=== PATIENT | female | born 1985 | race Caucasian/White ===

== ENCOUNTER → 2017-08-28 15:26 | Outpatient (CLI) | payer MEDICAID, SELFPAY ==
[2017-09-04 08:19] LABS: HPV HC, High Risk Negative (Negative)
== END ==
PROVIDERS: Visit Provider Obstetrics & Gynecology
DX: Z12.4 Encounter for screening for malignant neoplasm of cervix (principal)
CPT/HCPCS: 87624; 88175; G0145

== ENCOUNTER → 2020-02-24 15:18 | Outpatient (CLI) | payer MEDICAID, SELFPAY ==
[2016-06-11 06:12] VITALS: BMI 24.3
[2020-02-24 16:41] LABS: Hematocrit 40.9 % (37-47); Mean Corp Hgb Conc 31.8 g/dL (32-36); Mean Corpuscular Hgb 29.1 pg (27.0-32.0); Mean Corpuscular Volume 91.5 fL (81-99); Mean Platelet Vol. 11.3 fl (6.2-12.0); Platelet Count 201 K/mm3 (150-450); RBC Distribution Width CV 12.7 % (11.6-14.6); RBC Distribution Width SD 42.7 fl (35.1-43.9); Red Blood Count 4.47 M/mm3 (4.2-5.4); White Blood Count 7.8 K/mm3 (4.4-11.0)
[2020-02-24 17:06] LABS: ALB/GLOB Ratio 0.9 RATIO (0.9-2.4); AST(SGOT) 27 U/L (15-37); Alanine Aminotransfer ALT/SGPT 34 U/L (13-56); Albumin, Serum 3.6 g/dL (3.2-5.0); Alkaline Phosphatase 56 U/L (45-117); Anion Gap 6 (5-15); BUN 16 mg/dL (7-18); BUN/Creat Ratio 15.5 RATIO (10-20); Calcium,Total 9.2 mg/dL (8.5-10.1); Chloride 107 mmol/L (98-107); Creatinine, Serum 1.03 mg/dL (0.55-1.02); EST Glomerular Filtration Rate 66 mL/min (>60); Est Glom Filt Rate - Afr Amer 79 mL/min (>60); Globulin 4.2 g/dL (2.2-4.2); Glucose 87 mg/dL (74-106); Potassium 4.4 mmol/L (3.5-5.1); Protein, Total 7.8 g/dL (6.4-8.2); Sodium Level 135 mmol/L (136-145)
[2020-02-27 18:39] LABS: Cancer Antigen 125 12.3 U/mL (0.0-38.1); Carbohydrate AG 19-9 8 U/mL (0-35); Carcinoembryonic Antigen 0.6 ng/mL (0.0-4.7)
== END ==
PROVIDERS: PCP Family Medicine; Visit Provider Obstetrics & Gynecology
DX: R10.9 Unspecified abdominal pain (principal); N89.8 Other specified noninflammatory disorders of vagina
CPT/HCPCS: 36415; 80053; 82378; 85027; 86301; 86304

== ENCOUNTER 2020-03-12 05:48 | Day surgery (SDC) | payer MEDICAID, SELFPAY ==
[2016-06-11 06:12] VITALS: BMI 24.3
[2020-03-12] VITALS (7 sets, daily range): BP systolic 102–117; BP diastolic 62–85; PULSE 60–79; RESP 16–18; TEMP 36–36.8; O2SAT 100; BMI 21.4
[2020-03-12 06:19] LABS: Internal QC Validated? YES +Cl - CLEAR BKGD; Pregnancy, Urine Negative Negative
--- NOTE | 2020-03-12 06:23 | HP.PCM_ITS ---
History and Physical Surgical History and Physical Name: YADIRA DANIEL Age: 34 Date of : 1985 Yadira Daniel, a 34 year old female 0 0 0 0 0, presents for diagnostic laparoscopy, possible left salpingectomy, possible left oophorectomy on 03/12/2020 at 7 :30 and am. -- Yadira has LLQ pain. 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 Very painful with nausea also present. Pain has continued to increase, she is missing days from work. 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 Slynd 4 mg (28) tablet, One pill by mouth once a day Patient is also takin. albuterol sulfate 90 mcg/actuation HFA aerosol inhaler, 2 puffs prn 2. Neurontin 800 mg tablet, 1 PO TID 3. promethazine 25 mg tablet, every 6 hours as needed 4. trazodone 50 mg tablet, daily 5. Zanaflex 2 mg capsule, bid 6. Zofran 4 mg tablet, every 4 hours as needed 7. hydrochlorothiazide 12.5 mg tablet, 1 PO QD ALLERGIES: Codeine, Hives, vomiting, Ultram, Hives, vomiting, Adhesive Tape, Skin irritation, Flagyl, Seizures, NSAIDS, Kidney disease, Codeine and Hives an d/or rash Infections - Chicken pox, HPV, [place], Pneumonia and UTI's Illnesses - asthma, seizures, stage 2 kidney disease, adenomyosis, hypertension Accidents - no injuries of consequence Hospitalizations - see surgery Kidney Stones; Review of Systems: GENERAL - LLQ pain SKIN - Denies skin changes EYES - Denies visual changes EARS - Denies difficulty hearing NOSE - Denies nasal congestion or bleeding MOUTH - Denies sore throat or difficulty swallowing NECK - Denies pain or swelling RESPIRATORY - Denies shortness of breath or wheezing CARDIOVASCULAR - Denies palpitations or chest pain GASTROINTESTINAL - constipation, hx kidney stones, Stage 2 kidney disease GENITOURINARY - Denies dysuria, frequency of urination, incontinence of urine MUSCULOSKELETAL - Denies joint or muscle pain NEUROLOGICAL - Denies localized numbness or weakness PSYCHIATRIC - Denies depression or anxiety ENDOCRINE - Denies heat or cold intolerance, weight loss or gain HEMATO-IMMUNOLOGIC - Denies excessive bleeding with cuts SOCIAL HISTORY: Alcohol Use - denies drinking Smoking - denies smoking Diet - no particular diet Exercise - minimal Seat Belt Use - always Employer - [employer] 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 MENSTRUAL HISTORY: LMP Known?- Continuous ocp'sAmount/Duration - 3-4 days, Regularity - missed periods, LMP - 09/16/12, Age Onset Menarche - 13 PAST PREGNANCIES: Total Pregnancies - 0; Full Term Pregnancies - 0; Premature - 0; Abortions, Induced - 0; Abortions, Spontaneous - 0; Ectopics - 0; Multiple Births - 0; Living Children - 0 SURGICAL HISTORY: 1. 03/30/2013 Lap RSO ; Dr Len Gauthier - 2. R back Ablation, 2019 ; - 3. Tonsillectomy ; - 4. Cryotherapy to Cervix x 2 ; - 5. Kidney Stones removed x 2, stent placed after last surgery in 2011 ; - 6. Laparoscopy 6-2012 ; - 7. 05/24/2014 Bilateral labia minora reduction ; Dr Len Gauthier - 8. 06/11/2016 Dx laparoscopy, lysis of bowel adhesions ; Dr Len Gauthier - 9. 09/16/2014 R kidney stent ; - PHYSICAL EXAM BP- 130/70 Sitting, Right arm, regular cuff Weight- 126.99565 lbs Height- 64.25 inch BMI:21.50 CONSTITUTIONAL - NAD, well nourished, and well developed SKIN - No rash, lesions, or ulcers HEENT - Normocephalic, PERRLA, EOMI NECK - No nodes, no nuchal rigidity and thyroid normal size and texture LYMPH NODES - Palpation of lymph nodes in neck and groins within normal limits LUNGS - CTA x2 without wheezes, crackles or rales CARDIAC - Regular rate and rhythm without rubs, murmurs, or gallops ABDOMEN - Without hepatosplenomegaly, distention, masses, rebound, or guarding; normal bowel sounds; no hernias. LLQ pain, no rebound or guarding. EXTREMITIES - No edema or calf tenderness NEUROLOGICAL - Cranial nerves II-XII grossly intact PSYCHIATRIC - A and O to time, place, person, mood and affect External Genital Vagina - narrow introitus Urethra/Urethral Meatus - non-tender Bladder - non-tender Vagina - vaginal montes de oca are pink and moist without loss of rugae and no evidence of atrophy and clear vaginal discharge noted Cervix - without cervical motion tenderness and has normal size and features without evident lesions Uterus - 5-6 cm in size, mobile and nontender Adnexa - Right ovary surgically absent. Left ovary no masses noted ASSESSMENT/PLAN: 1. Left Lower Quadrant Pain Pt see in ER for LLQ pain that started slowly weeks ago and became worse. Found to have CT that showed hydrosalpingx but left ovary could not be seen with bowel Pt with hx of of multiple abdominal surgeries s/p RSO. Pt likely with multiple adhesions. Pt with some constipation but overall regular bowel movements, stool softeners did not improve pain. Hx of kindey stones, no signs on CT. U/s today with similar results, right pelvic side wall density not specified. Clear discharge on exam. Will get tumor markers Discussed results r/b/a discussed. Pt elects for dx laparoscopy, does desire children but with possible salpingectomy possible oophorectomy
[2020-03-12] MEDS: Lactated Ringers 1,000 ML 100 ML IV ×2 (07:11→08:54)
--- NOTE | 2020-03-12 08:27 | PCM.DC.D&C ---
Discharge Diet: No Restrictions Discharge Activity: Return to Normal Activity, May not drive while taking narcotic pain medications., May Shower May resume sexual activity in: 2 weeks Weight Bearing Status: Weight bearing as tolerated Call your doctor if your incision/area has: Foul Smelling Discharge Call your doctor if you observe: Fever of 101 or Higher, Shortness of breath, Chest pain Allergies/Adverse Reactions: Allergies codeine Allergy (Verified 02/28/20 14:58) Hives metronidazole [From Flagyl] Allergy (Verified 02/28/20 14:58) Shortness of breath SEIZURES shellfish derived Allergy (Verified 02/28/20 14:58) Angioedema adhesive Adverse Reaction (Verified 02/28/20 14:58) Rash aspirin [ASA] Adverse Reaction (Verified 02/28/20 15:08) PT UNSURE OF REACTION STAGE II KIDNEY FAILURE NSAIDS (Non-Steroidal Anti-Inflamma Adverse Reaction (Verified 02/28/20 15:08) PT UNSURE OF REACTION STAGE II KIDNEY FAILURE Medications to take at Discharge Albuterol Inhaler [Ventolin Hfa] 1 - 2 puff INHALATION Q6H PRN PRN 03/22/13 Ondansetron HCl [Zofran] 4 mg PO Q6H PRN 06/05/16 Tizanidine HCl [Zanaflex] 4 mg PO DAILY 06/05/16 Acetaminophen/Diphenhydramine [Tylenol Pm Ex-Strength Caplet] 1 ea PO QHS 02/28/20 Albuterol Aerosols [Ventolin Aerosols] 2.5 mg INHALATION Q6HWA.RT PRN 02/28/20 Dicyclomine HCl 20 mg PO Q6H PRN PRN 02/28/20 Docusate Sodium [Colace] 100 mg PO BID 02/28/20 Drospirenone [Slynd] 4 mg PO DAILY 02/28/20 Gabapentin [Neurontin] 800 mg PO TIDCM PRN 02/28/20 Hydrochlorothiazide [Hctz] 12.5 mg PO DAILY 02/28/20 Hydrocodone/Acetaminophen [Hydrocodon-Acetaminophen 5-325] 1 ea PO PRN PRN 02/28/20 Ketorolac [Toradol] 10 mg PO Q6H PRN 02/28/20 Lansoprazole [Prevacid] 30 mg PO DAILY 02/28/20 Trazodone ER [Oleptro Er] 150 mg PO 1800 02/28/20 proMETHazine tablet [Phenergan tablet] 25 mg PO QHS PRN 02/28/20 Oxycodone [Oxyir] 5 mg PO Q6H PRN PRN 3 Days #12 tablet 03/12/20 The following prescriptions were given: Oxycodone [Oxyir] 5 mg PO Q6H PRN PRN 3 Days #12 tablet PRN Reason: Pain Score 6-10 Transmission Status: Sent to [facility] Orders to be completed after discharge: ,Urine Time Frame: 03/01/20, Facility: [facility], Location: Laboratory Primary Care Physician: BALBIR SANDERSON [Other] Test Results: Test results from this visit will be discussed in further detail at your follow-up appointment, if applicable. Please Follow Up With: Jose Daniel Myers MD - s When: 2 weeks
--- NOTE | 2020-03-12 08:28 | OP.PCM_ITS ---
Report of Operation Date of Procedure: 03/12/20 Pre-Operative Diagnosis: Pelvic pain Post-Operative Diagnosis: Pelvic pain Surgery/Procedure Performed:: Diagnostic laparoscopy, lysis of adhesions Description of Surgical Findings:: Surgeon: Jose Daniel Myers MD Anesthesia: General EBL: 5 cc Urine output: 200 cc IV fluids: 1000 cc Complications: None Specimen: None Findings: Normal left fallopian tube, normal left ovary, normal uterus. No pathology in posterior cul-de-sac. No sign of endometriosis or other pathology. Left pelvic wall adhesions involving sidewall and rectum. Bowel and rectum with no pathology noted before and after procedure. Visualization via laparoscopy of upper and lower abdomen with no pathology noted. Consent: Patient with left lower quadrant pain, missing work, arrived to ER. in need of diagnostic laparoscopy, possible left salpingectomy possible left oophorectomy. Patient understands the risk of the procedure include but are not limited to visceral or vascular injury, prolonged hospitalization, blood loss need for transfusion, reoperation. Patient state understanding wish to proceed. All questions answered consent was signed. Procedure: Patient was brought back to the OR where general anesthesia found to be adequate. Patient prepared and draped in dorsolithotomy position with yellowfin stirrups. A weighted speculum was placed in the posterior aspect of the vagina. Cervical dilators used to dilate cervix. Uterine manipulator was placed. Infraumbilical fold with 5 mm trocar incision made. Trocar inserted via Optiview. Abdomen was insufflated. Laparoscope was inserted and above findings were noted. Left pelvic sidewall adhesions were performed greater than 15 minutes. Further visualization of the upper and lower abdomen with above findings. Trochars were removed under direct visualization. Trocar sites were closed in a subcutaneous fashion. Good hemostasis was noted. All counts correct x2. Patient tolerated procedure well was brought to recovery in stable condition. preparation room worker: Ashely Lagos
[2020-03-12] MEDS: oxyCODONE 5 MG Tablet PO (09:56)
== END 2020-03-12 11:47 | disposition home or self-care (01) ==
LOC: SDC 05:49 → AC 05:49
PROVIDERS: Anesthesiology; Referring Provider Obstetrics & Gynecology; Visit Provider Obstetrics & Gynecology
PROC: (CPT 58661; principal; 2020-03-12 07:15)
DX: R10.2 Pelvic and perineal pain (principal); N73.6 Female pelvic peritoneal adhesions (postinfective); R10.32 Left lower quadrant pain; I10 Essential (primary) hypertension; J45.909 Unspecified asthma, uncomplicated; Z79.899 Other long term (current) drug therapy; Z88.1 Allergy status to other antibiotic agents; Z88.5 Allergy status to narcotic agent; Z88.6 Allergy status to analgesic agent; Z90.721 Acquired absence of ovaries, unilateral
CPT/HCPCS: 49320; 49329; 81025; 87426; C9803; J7120; J2405

== ENCOUNTER → 2020-09-07 16:32 | Outpatient (CLI) | payer MEDICAID, SELFPAY ==
[2020-03-12 06:15] VITALS: BMI 21.4
[2020-09-07 16:37] LABS: Red Blood Cells-Urine 0 SEEN /hpf (0-5)
[2020-09-07 17:00] LABS: Absolute Lymphocyte Count 2.84 X10^3/uL (0.83-4.51); Absolute Neutrophil Count 6.5 X10^3/uL (2.0-7.7); Basophil# 0.05 X10^3/uL; Basophil% 0.5 % (0-1); Eosinophil# 0.08 X10^3/uL; Eosinophils% 0.8 % (0-5); Hematocrit 37.8 % (37-47); Hemoglobin 12.1 g/dL (12.0-15.0); Lymphocyte # 2.84 X10^3/ul (0.83-4.51); Lymphocyte % 27.5 % (19-41); Mean Corpuscular Hgb 29.7 pg (27.0-32.0); Mean Corpuscular Volume 92.9 fL (81-99); Mean Platelet Vol. 10.1 fl (6.2-12.0); Monocyte% 7.7 % (0-10); NRBC Flagged by Analyzer 0 % (0-5); Neutrophil # 6.52 X10^3/uL (2.7-7.7); Neutrophil % 63.1 % (47-70); Platelet Count 238 K/mm3 (150-450); RBC Distribution Width CV 13.2 % (11.6-14.6); RBC Distribution Width SD 45.1 fl (35.1-43.9); Red Blood Count 4.07 M/mm3 (4.2-5.4); White Blood Count 10.3 K/mm3 (4.4-11.0)
[2020-09-07 17:01] LABS: Color, Urine Yellow (Yellow); Glucose, Dipstick Normal (Normal); Ketone-Dipstick Negative (Negative); Leukocyte Esterase-Dipstick Negative /ul (Negative); Nitrite-Dipstick Negative (Negative); Occult Blood-Urine Negative /ul (Negative); Protein-Dipstick 15 mg/dl (Negative); Specific Gravity, Urine 1.025 (1.002-1.030); Urine Bilirubin Dipstick Negative (Negative); Urine Clarity Clear (Clear); Urine Urobilinogen Normal (Normal)
[2020-09-07 17:10] LABS: Protein, Urine (Random) 17.4 mg/dL (<11.9); Protein:Creat Ratio 84 mg/g CRE (0-200)
[2020-09-07 17:12] LABS: Bacteria 1+ /hpf (None Seen); Mucous, Urine 2+ /hpf (<or=2+); Squamous Epithelial Cells - UA 0-5 SEEN /hpf (5-10); White Blood Cells 0-5 SEEN /hpf (0-5)
[2020-09-07 17:23] LABS: AST(SGOT) 16 U/L (15-37); Alanine Aminotransfer ALT/SGPT 29 U/L (13-56); Albumin, Serum 3.9 g/dL (3.2-5.0); Alkaline Phosphatase 52 U/L (45-117); Anion Gap 7 (5-15); BUN 14 mg/dL (7-18); BUN/Creat Ratio 17.2 RATIO (10-20); Calcium,Total 9.1 mg/dL (8.5-10.1); Chloride 104 mmol/L (98-107); Creatinine, Serum 0.81 mg/dL (0.55-1.02); EST Glomerular Filtration Rate 86 mL/min (>60); Est Glom Filt Rate - Afr Amer 104 mL/min (>60); Globulin 3.9 g/dL (2.2-4.2); Glucose 86 mg/dL (74-106); LDH 144 U/L (84-246); Potassium 4.1 mmol/L (3.5-5.1); Protein, Total 7.8 g/dL (6.4-8.2); Sodium Level 137 mmol/L (136-145)
[2020-09-10 10:20] LABS: HIV - WCH Non-Reactive (Nonreactive); Hepatitis B Surface Antigen Non-Reactive (Nonreactive); Hepatitis C Antibody Non-Reactive (Nonreactive); Rubella IgG Reactive (Nonreactive); Syphilis Antibodies Non-reactive
[2020-09-10 20:07] LABS: Chlamydia By Nucleic Acid AMP Negative (Negative)
[2020-09-10 21:50] LABS: Gonococcus By Nucleic Acid AMP Negative (Negative)
[2020-09-11 21:26] LABS: HPV APTIMA, High Risk Negative (Negative)
== END ==
PROVIDERS: Visit Provider Obstetrics & Gynecology
DX: Z12.4 Encounter for screening for malignant neoplasm of cervix (principal); Z11.3 Encounter for screening for infections with a predominantly sexual mode of transmission; Z34.81 Encounter for supervision of other normal pregnancy, first trimester
CPT/HCPCS: 36415; 80053; 81001; 82570; 83615; 84156; 85025; 86703; 86762; 86780; 86803; 87086; 87088; 87340; 87491; 87591; 87624; 88175; G0145

== ENCOUNTER 2020-10-23 19:53 | Emergency (ER) | payer BC, SELFPAY ==
[2020-10-23 19:54] VITALS: BP 132/87; PULSE 87; RESP 16; TEMP 36.6; O2SAT 100; BMI 21.3
[2020-10-23 20:22] LABS: Bacteria 0 SEEN /hpf (None Seen); Mucous, Urine 0 SEEN /hpf (<or=2+); Red Blood Cells-Urine 0 SEEN /hpf (0-5); White Blood Cells 0 SEEN /hpf (0-5)
[2020-10-23 20:38] LABS: Color, Urine Yellow (Yellow); Glucose, Dipstick Normal (Normal); Ketone-Dipstick Negative (Negative); Leukocyte Esterase-Dipstick Negative /ul (Negative); Nitrite-Dipstick Negative (Negative); Occult Blood-Urine Negative /ul (Negative); Protein-Dipstick Negative (Negative); Specific Gravity, Urine 1.005 (1.002-1.030); Urine Bilirubin Dipstick Negative (Negative); Urine Clarity Clear (Clear); Urine Urobilinogen Normal (Normal)
[2020-10-23 20:59] VITALS: BP 132/87; PULSE 87; RESP 16; TEMP 36.6; O2SAT 100
--- NOTE | 2020-10-23 21:17 | US_ITS ---
STUDY: RENAL ULTRASOUND - COMPLETE REASON FOR EXAM: Female, 34 years old. right flank pain TECHNIQUE: Ultrasound evaluation of the kidneys was performed with real-time and static bernard-scale imaging. COMPARISON: None. FINDINGS: RIGHT KIDNEY: Normal location of the right kidney, which is normal in size. The right kidney measures 10.7 cm. There is a normal cortex of the right kidney. The renal cortex measures 1.6 cm. There is no right renal mass or cyst. Several hyperechoic calculi. The largest which measures 6 mm. Mild central pelviectasis. DISTAL RIGHT URETER: There is non-visualization of the distal right ureter. There is no demonstrated right ureterovesical junction calculus. There is no demonstrated right ureteral jet. LEFT KIDNEY: Normal location of the left kidney, which is normal in size. The left kidney measures 11.2 cm. There is a normal cortex of the left kidney. The renal cortex measures 2.0 cm. There is no left renal mass or cyst. There are no left renal calculi. There is no left hydronephrosis. DISTAL LEFT URETER: There is non-visualization of the distal left ureter. There is no demonstrated left ureterovesical junction calculus. There is no demonstrated left ureteral jet. BLADDER: The distended urinary bladder has a volume of 29 ml. The empty urinary bladder has a volume of ml. There is a normal wall thickness of the distended urinary bladder. There is no demonstrated mass within the urinary bladder. There are no demonstrated bladder calculi. US/Kidney and Bladder IMPRESSION: Mild right pelviectasis. Several right-sided renal calculi. Unremarkable left kidney and urinary bladder. Electronically Signed: Tremayne Mariee DO at 22:29 EDT Tel , Service support ,
[2020-10-23 21:34] LABS: Squamous Epithelial Cells - UA 0-5 SEEN /hpf (5-10)
[2020-10-23 21:48] LABS: Absolute Lymphocyte Count 2.94 X10^3/uL (0.83-4.51); Basophil# 0.03 X10^3/uL; Basophil% 0.3 % (0-1); Eosinophil# 0.12 X10^3/uL; Eosinophils% 1.2 % (0-5); Hemoglobin 11.4 g/dL (12.0-15.0); Lymphocyte # 2.94 X10^3/ul (0.83-4.51); Lymphocyte % 30.1 % (19-41); Mean Corp Hgb Conc 32.6 g/dL (32-36); Mean Corpuscular Hgb 29.9 pg (27.0-32.0); Mean Corpuscular Volume 91.9 fL (81-99); Monocyte# 0.63 X10^3/uL; Monocyte% 6.4 % (0-10); NRBC Flagged by Analyzer 0 % (0-5); Neutrophil # 6.02 X10^3/uL (2.7-7.7); Neutrophil % 61.7 % (47-70); Platelet Count 204 K/mm3 (150-450); RBC Distribution Width CV 13.1 % (11.6-14.6); RBC Distribution Width SD 44.4 fl (35.1-43.9); Red Blood Count 3.81 M/mm3 (4.2-5.4); White Blood Count 9.8 K/mm3 (4.4-11.0)
[2020-10-23 22:01] LABS: Anion Gap 5 (5-15); BUN 12 mg/dL (7-18); BUN/Creat Ratio 18.2 RATIO (10-20); Calcium,Total 8.8 mg/dL (8.5-10.1); Chloride 108 mmol/L (98-107); Creatinine, Serum 0.66 mg/dL (0.55-1.02); EST Glomerular Filtration Rate 109 mL/min (>60); Est Glom Filt Rate - Afr Amer 132 mL/min (>60); Estimated Creatinine Clearance 104.69 ml/min; Glucose 81 mg/dL (74-106); Potassium 3.4 mmol/L (3.5-5.1); Sodium Level 137 mmol/L (136-145)
--- NOTE | 2020-10-23 22:48 | EDS_ITS ---
HPI HPI - GI History of Present Illness Chief Complaint: Flank Pain Informant: patient Abdominal Pain/Flank Pain Onset: Today Narrative Narrative: Patient is a 34-year-old female currently 13 weeks presenting with sudden onset of right sided flank pain. Patient says she has a history of kidney stones. Her symptom started 3 PM today. It is in her right flank and radiates to her rib cage. She denies any cyst abdominal pain, nausea or vomiting. She denies any urinary symptoms. She notes that she does have a history of CKD to associate with her kidney stones. This is her first . 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 Myers. Patient took Tylenol prior to arrival. [facility] Medical History Asthma Hypertension Kidney disease Home Medications albuterol sulfate [Ventolin HFA] 1 - 2 puff INHALATION Q6H PRN PRN 03/22/13 [History Last Taken 05/24/14 08:49] ondansetron HCl [Zofran] 4 mg PO Q6H PRN 06/05/16 [History Last Taken 06/11/16 01:00] tizanidine [Zanaflex] 4 mg PO DAILY 06/05/16 [History Last Taken Unknown] albuterol sulfate 2.5 mg INHALATION Q6HWA.RT PRN 02/28/20 [History Last Taken Unknown] dicyclomine 20 mg PO Q6H PRN PRN 02/28/20 [History Last Taken Unknown] diphenhydramine-acetaminophen 1 ea PO QHS 02/28/20 [History Last Taken Unknown] docusate sodium 100 mg PO BID 02/28/20 [History Last Taken Unknown] drospirenone (contraceptive) 4 mg PO DAILY 02/28/20 [History Last Taken Unknown] gabapentin 800 mg PO TIDCM PRN 02/28/20 [History Last Taken 03/12/20] hydrochlorothiazide 12.5 mg PO DAILY 02/28/20 [History Last Taken Unknown] hydrocodone-acetaminophen 1 ea PO PRN PRN 02/28/20 [History Last Taken Unknown] ketorolac 10 mg PO Q6H PRN 02/28/20 [History Last Taken Unknown] lansoprazole 30 mg PO DAILY 02/28/20 [History Last Taken 03/12/20] promethazine 25 mg PO QHS PRN 02/28/20 [History Last Taken Unknown] trazodone 150 mg PO 1800 02/28/20 [History Last Taken Unknown] hydrocodone-acetaminophen 1 tab PO Q6H PRN 3 Days #12 tab 10/23/20 [Rx Last Taken Unknown] Allergy/AdvReac Type Severity Reaction Status Date / Time codeine Allergy Hives Verified 10/23/20 19:53 metronidazole [From Flagyl] Allergy Shortness Verified 10/23/20 19:53 of breath shellfish derived Allergy Angioedema Verified 10/23/20 19:53 adhesive AdvReac Rash Verified 10/23/20 19:53 NSAIDS (Non-Steroidal AdvReac PT UNSURE Verified 10/23/20 19:53 Anti-Inflamma OF REACTION Social History Smoking Status: Never smoker ROS ROS ED Constitutional Constitutional ED: Denies chills, fever(s) or malaise Eyes Eyes: Denies blurry vision or loss of vision ENT ENT ED: Denies rhinorrhea or sore throat Cardiovascular Cardiovascular: Denies chest pain or dizziness Respiratory/Chest Respiratory/Chest: Denies cough or dyspnea Gastrointestinal Gastrointestinal: Reports other Details: Right flank pain ; Denies nausea or vomiting Genitourinary Genitourinary ED: Denies dysuria or hematuria Musculoskeletal Musculoskeletal: Reports back pain; Denies arthralgias or myalgias Integumentary Denies rash or wounds Neurologic Neurologic: Denies focal weakness or headache(s) Psychiatric Psychiatric: Denies anxiety or behavioral changes EXAM Physical Exam Const Vital Signs: 10/23/20 19:54 10/23/20 20:59 Temperature 97.8 F 97.8 F Temperature Source Temporal Temporal Pulse Rate 87 87 Respiratory Rate 16 16 Blood Pressure 132/87 H 132/87 H Blood Pressure Mean 102 102 Pulse Ox 100 100 Oxygen Delivery Method Room Air Room Air Positive well nourished, well developed and no apparent distress General Appearance ED: well developed HEENT Reports normocephalic normocephalic and atraumatic Nose: no nasal discharge External Ear: external ears normal Mouth ED: Yes moist mucous membranes normal Eyes PERRL and EOMs intact bilaterally Neck full ROM and no meningeal signs Chest Wall inspection of chest normal Resp normal respiratory effort and normal air movement Cardio regular rate, regular rhythm and no murmurs GI normal to inspection, nondistended, normoactive bowel sounds, non-tender and non-distended GI Narrative: No palpable uterus Auscultation: normoactive bowel sounds Palpation: soft Back/Spine no CVA tenderness Extremity normal to inspection and full ROM Neuro oriented x3 and no focal motor deficits Psych mental status grossly normal and thought process normal Skin no rashes or lesions noted and no wounds MDM MDM MDM Narrative Medical decision making narrative: Evaluated for sudden onset of right flank pain. Is consistent with her prior episodes of kidney stones. Presentation is complicated as she is 13 weeks and we would like to avoid radiation of possible. Patient declines any pain medication in the emergency room. Vital signs are significant only for very mild elevated blood pressure of 132/87. Urinalysis is essentially normal and kidney function is normal. She is a mild anemia with a hemoglobin of 11.4 but no other abnormalities. Ultrasound of the kidneys shows mild right pelvic pelviectasis which could be related to hydronephrosis but is not clear as the right ureter is not visualized. Given her history and sudden onset of symptoms she will be treated that she does have a kidney stone with pain control. She is given referral to urology for outpatient follow-up. Patient is comfortable with this plan of care. She is counseled on return precautions. She discharged home in stable condition. Lab Data Attestation: I reviewed the patient's lab results. Labs: Laboratory Results - last 24 hr 10/23/20 10/23/20 10/23/20 20:15 21:15 21:15 WBC 9.8 RBC 3.81 L Hgb 11.4 L Hct 35.0 L MCV 91.9 MCH 29.9 MCHC 32.6 RDW Std Deviation 44.4 H RDW Coeff of [place] 13.1 Plt Count 204 MPV 10.0 Immature Gran % (Auto) 0.300 Neut % (Auto) 61.7 Lymph % (Auto) 30.1 [place] % (Auto) 6.4 Eos % (Auto) 1.2 Baso % (Auto) 0.3 Absolute Neuts (auto) 6.0 Absolute Lymphs (auto) 2.94 Nucleated RBC % 0 Sodium 137 Potassium 3.4 L Chloride 108 H Carbon Dioxide 24.0 Anion Gap 5 BUN 12 Creatinine 0.66 Estim Creat Clear Calc 104.69 Est GFR (MDRD) Af Amer 132 Est GFR (MDRD) Non-Af 109 BUN/Creatinine Ratio 18.2 Glucose 81 Calcium 8.8 Urine Color Yellow Urine Clarity Clear Urine pH 7.0 Ur Specific Amber 1.005 Urine Protein Negative Urine Glucose (UA) Normal Urine Ketones Negative Urine Occult Blood Negative Urine Nitrite Negative Urine Bilirubin Negative Urine Urobilinogen Normal Ur Leukocyte Esterase Negative Urine RBC 0 SEEN Urine WBC 0 SEEN Ur Squamous Epith Cells 0-5 SEEN Urine Bacteria 0 SEEN Urine Mucus 0 SEEN Radiography Diagnostic Testing: Radiology Impression Renal Ultrasound 10/23/20 21:17 IMPRESSION: Mild right pelviectasis. Several right-sided renal calculi. Unremarkable left kidney and urinary bladder. Electronically Signed: Tremayne Mariee DO at 22:29 EDT Tel , Service support , Discharge Plan Triage Chief Complaint: Flank Pain ED Provider: Carole De Los Santos Dx/Rx/DC Orders Clinical Impression: Acute right flank pain, Renal colic on right side Instructions: ED Kidney Stone w/ Colic Prescriptions: New hydrocodone-acetaminophen 5-325 mg tablet 1 tab PO Q6H PRN (Reason: pain) 3 Days Qty: 12 RF: 0 No Action albuterol sulfate [Ventolin HFA] 1 INHALER inhaler 1 - 2 puff inhalation Q6H PRN PRN (Reason: Asthma) RF: 0 ondansetron HCl [Zofran] 4 MG tablet 4 mg PO Q6H PRN (Reason: Nausea) RF: 0 tizanidine [Zanaflex] 2 MG capsule 4 mg PO DAILY RF: 0 albuterol sulfate 2.5 MG/3 ML solution for nebulization 2.5 mg INHALATION Q6HWA.RT PRN (Reason: Asthma) RF: 0 hydrocodone-acetaminophen 1 EACH tablet 1 ea PO PRN PRN (Reason: Pain 1-10 Or Fever) RF: 0 ketorolac 10 MG tablet 10 mg PO Q6H PRN (Reason: Pain 1-10 Or Fever) RF: 0 gabapentin 800 MG tablet 800 mg PO TIDCM PRN (Reason: Pain 1-10 Or Fever) RF: 0 dicyclomine 20 MG tablet 20 mg PO Q6H PRN PRN (Reason: ABD SPASMS) RF: 0 trazodone 150 MG tablet 150 mg PO 1800 RF: 0 lansoprazole 30 MG capsule 30 mg PO DAILY RF: 0 promethazine 25 MG tablet 25 mg PO QHS PRN (Reason: Nausea) RF: 0 docusate sodium 100 MG capsule 100 mg PO BID RF: 0 diphenhydramine-acetaminophen 1 EACH tablet 1 ea PO QHS RF: 0 drospirenone (contraceptive) 4 MG tablet 4 mg PO DAILY RF: 0 hydrochlorothiazide 25 MG tablet 12.5 mg PO DAILY RF: 0 Referrals: BALBIR SANDERSON [Other] Swathi Potter MD [STAFF PHYSICIAN] - Disposition Disposition: Home, Self Care
[2020-10-23 23:14] VITALS: BP 130/78; PULSE 78; RESP 16; O2SAT 98
== END 2020-10-23 23:14 | disposition home or self-care (01) ==
PROVIDERS: Emergency Provider Emergency Medicine
DX: O10.911 Unspecified pre-existing hypertension complicating pregnancy, first trimester (principal); O26.831 Pregnancy related renal disease, first trimester; N28.89 Other specified disorders of kidney and ureter; O99.511 Diseases of the respiratory system complicating pregnancy, first trimester; J45.909 Unspecified asthma, uncomplicated; Z79.1 Long term (current) use of non-steroidal anti-inflammatories (NSAID); Z87.442 Personal history of urinary calculi; Z3A.13 13 weeks gestation of pregnancy; I12.9 Hypertensive chronic kidney disease with stage 1 through stage 4 chronic kidney disease, or unspecified chronic kidney disease; N18.9 Chronic kidney disease, unspecified; N20.0 Calculus of kidney
CPT/HCPCS: 76770; 80048; 81001; 85025; 99282

== ENCOUNTER 2020-12-31 22:05 | Outpatient (CLI) | payer BC, SELFPAY ==
[2020-12-31 22:21] VITALS: PULSE 84; O2SAT 100
[2020-12-31 22:27] VITALS: BP 117/66; PULSE 78; PULSE 84; TEMP 36.4; O2SAT 100
[2020-12-31 22:34] VITALS: BMI 23.3
[2020-12-31 22:51] LABS: ROM Internal Control Test YES-OK TO RESULT pt. (Internal QC)
[2020-12-31 22:52] LABS: ROM Patient Test POSITIVE (Negative)
[2020-12-31 22:55] LABS: Bacteria 0 SEEN /hpf (None Seen); Mucous, Urine 0 SEEN /hpf (<or=2+); Red Blood Cells-Urine 0 SEEN /hpf (0-5); Squamous Epithelial Cells - UA 0 SEEN /hpf (5-10); White Blood Cells 0 SEEN /hpf (0-5)
[2020-12-31 23:04] LABS: Color, Urine Straw (Yellow); Glucose, Dipstick Normal (Normal); Ketone-Dipstick Negative (Negative); Leukocyte Esterase-Dipstick Negative /ul (Negative); Nitrite-Dipstick Negative (Negative); Occult Blood-Urine Negative /ul (Negative); Protein-Dipstick Negative (Negative); Urine Bilirubin Dipstick Negative (Negative); Urine Clarity Clear (Clear); Urine Urobilinogen Normal (Normal)
--- NOTE | 2020-12-31 23:45 | PCM.HP.BLA ---
History and Physical Date of Admission: 12/31/20 HPI: 35-year-old G1, P0 at 23/4 days, JONATHON 04/26/2021 by LMP, with periviable prelabor rupture of membranes. Patient gush of fluid around 2130 last night, clear fluid. Denies vaginal bleeding. Reports some irregular cramping over the past week with movement. Reports normal movement. Denies headache, vision changes, chest pain, shortness of breath, nausea or vomiting, diarrhea or constipation, fevers or chills, rash. complicated by: Stage II renal failure, chronic hypertension not on medications, seizure disorder (not currently on medications, last seizure 2 weeks ago at work), asthma. 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 Bilateral labia minora reduction 2. Cervical cryotherapy x2 3. Diagnostic laparoscopy lysis of adhesions in 2020 4. Diagnostic laparoscopy, lysis of adhesions of bowel 2016 5. Removal of kidney stones x2 with stent placement 6. Laparoscopic right salpingo-oophorectomy 2013 7. Laparoscopy 2012 8. Tonsillectomy Medications: 1. Trazodone 2. vitamin 3. ProAir inhaler 4. Aspirin 81 mg Allergies: 1. Codeine causes hives 2. Flagyl causes dyspnea 3. Topamax causes headache 4. Adhesives cause rash 5. Avoid NSAIDs for kidney disease 6. Angioedema with shellfish Family history: Noncontributory Review of systems: Negative otherwise noted above Physical exam: Vitals Blood pressure 117/66 Pulse 84 Temp 97.6 O2 sat 100% on room air General: No acute distress, teary, comfortable HEENT: Normocephalic/atraumatic Cardiorespiratory: No increased effort Abdomen: Gravid. Soft, nontender Extremities: No edema Neurologic: Cranial nerves II through XII grossly intact Cervical exam: Deferred at this time patient has rare contractions Bedside ultrasound: Transverse spine up heart rate: 145/mod maliha/+accel/+intermittent variable decelerations [place]: Rare Panel: A+ HIV/hepatitis B/hepatitis C: neg/neg/neg Syphilis antibody: Nonreactive Gonorrhea/Chlamydia: Negative/negative GBS pending weight on 12/11/2020 at anatomy ultrasound was 330 g Labs: ROM positive CBC, CMP pending Assessment/plan: 35-year-old G1 at 23/4 weeks previable rupture of membranes at 23/3 weeks. -ROM positive, bedside ultrasound showed minimal fluid -We will give Celestone at this time. Start latency antibiotics. Ampicillin and azithromycin. -Start 4 g magnesium bolus. Last creatinine in October 2020 was 0.66 and creatinine clearance 104. Will wait on CMP to give maintenance dosing, consider holding with history of stage II renal disease. -Plan to transport to [facility] triage. Discussed with Dr. Carlotta Chau. -Education provided to patient and her at bedside about outcomes of delivery at this time, tentative plans for inpatient stay, medications to be given. Stage II renal disease: CMP pending Chronic hypertension on no medications. Blood pressure stable. Seizure disorder. Not currently on medications last seizure 2 weeks ago.
[2020-12-31] MEDS: Lactated Ringers 1,000 ML 999 ML IV (23:50)
[2021-01-01] VITALS (16 sets, daily range): BP systolic 100–133; BP diastolic 59–64; PULSE 83–163; RESP 14–16; TEMP 36.3; O2SAT 79–100
[2021-01-01 00:22] LABS: Absolute Lymphocyte Count 2.81 X10^3/uL (0.83-4.51); Absolute Neutrophil Count 8.1 X10^3/uL (2.0-7.7); Basophil# 0.06 X10^3/uL; Basophil% 0.5 % (0-1); Eosinophil# 0.19 X10^3/uL; Eosinophils% 1.6 % (0-5); Hematocrit 35.8 % (37-47); Hemoglobin 11.6 g/dL (12.0-15.0); Lymphocyte # 2.81 X10^3/ul (0.83-4.51); Lymphocyte % 22.9 % (19-41); Mean Corp Hgb Conc 32.4 g/dL (32-36); Mean Corpuscular Hgb 30.2 pg (27.0-32.0); Mean Corpuscular Volume 93.2 fL (81-99); Mean Platelet Vol. 10.3 fl (6.2-12.0); Monocyte# 0.94 X10^3/uL; Monocyte% 7.7 % (0-10); NRBC Flagged by Analyzer 0 % (0-5); Neutrophil # 8.07 X10^3/uL (2.7-7.7); Neutrophil % 65.8 % (47-70); Platelet Count 239 K/mm3 (150-450); RBC Distribution Width CV 12.7 % (11.6-14.6); RBC Distribution Width SD 43.6 fl (35.1-43.9); Red Blood Count 3.84 M/mm3 (4.2-5.4); White Blood Count 12.3 K/mm3 (4.4-11.0)
[2021-01-01] MEDS: Betamethasone/Betamethasone 30 MG/5 ML Vial 12 MG IM (00:22)
[2021-01-01] MEDS: Magnesium Sulfate 4gm/100mL 4 GM/100 ML IV.SOLN. IV (00:22)
[2021-01-01] MEDS: Ondansetron 4 MG/2 ML Vial IV (00:45)
[2021-01-01] MEDS: Lactated Ringers 1,000 ML 50 ML IV (01:00)
[2021-01-01 01:16] LABS: ALB/GLOB Ratio 0.7 RATIO (0.9-2.4); AST(SGOT) 25 U/L (15-37); Alanine Aminotransfer ALT/SGPT 25 U/L (13-56); Albumin, Serum 2.8 g/dL (3.2-5.0); Alkaline Phosphatase 52 U/L (45-117); Anion Gap 4 (5-15); BUN 9 mg/dL (7-18); BUN/Creat Ratio 11.9 RATIO (10-20); Calcium,Total 8.8 mg/dL (8.5-10.1); Chloride 111 mmol/L (98-107); Creatinine, Serum 0.76 mg/dL (0.55-1.02); EST Glomerular Filtration Rate 93 mL/min (>60); Est Glom Filt Rate - Afr Amer 112 mL/min (>60); Estimated Creatinine Clearance 90.07 ml/min; Globulin 3.9 g/dL (2.2-4.2); Glucose 92 mg/dL (74-106); Protein, Total 6.7 g/dL (6.4-8.2); Sodium Level 139 mmol/L (136-145)
[2021-01-01] MEDS: Magnesium Sulfate 20 GM/500 ML BAG IV (01:24)
[2021-01-01 04:37] LABS: Group B Strep DNA By PCR Negative (Negative); Internal Control PASS; Probe Check PASS; Specimen Processing Control PASS
== END 2021-01-01 02:15 | disposition home or self-care (01) ==
LOC: WPOUT 22:11 → WP 22:11
PROVIDERS: Obstetrics & Gynecology; Visit Provider Student in an Organized Health Care Education/Training Program
DX: O42.911 Preterm premature rupture of membranes, unspecified as to length of time between rupture and onset of labor, first trimester (principal); O10.912 Unspecified pre-existing hypertension complicating pregnancy, second trimester; O99.352 Diseases of the nervous system complicating pregnancy, second trimester; G40.909 Epilepsy, unspecified, not intractable, without status epilepticus; Z3A.23 23 weeks gestation of pregnancy; Z79.82 Long term (current) use of aspirin; Z88.1 Allergy status to other antibiotic agents; Z88.5 Allergy status to narcotic agent
CPT/HCPCS: 96361 ×4; 96374; 36415; 59050; 76815; 80053; 81001; 84112; 85025; 86850; 86900; 86901; 87081; 87426; 87653; 96372; 99218; J7120; G0378; J0702; J2405

== ENCOUNTER → 2021-02-07 08:23 | Outpatient (CLI) | payer BC, SELFPAY ==
--- NOTE | 2021-02-07 08:26 | CT_ITS ---
STUDY: CT ABDOMEN AND PELVIS WITHOUT CONTRAST REASON FOR EXAM: Female, 35 years old. FLANK PAIN/HYDRONEPHROSIS/KIDNEY STONES RADIATION DOSAGE (If Supplied By Facility): CTDIvol = ( 6.13 ) mGy, DLP = ( 290.92 ) mGycm TECHNIQUE: Transaxial images were obtained from the dome of the diaphragm to the symphysis pubis without oral contrast, and without intravenous contrast. Sagittal and coronal images were reconstructed. Individualized dose optimization techniques were used for this CT. COMPARISON: Comparison is made with prior study dated 03/19/2016. FINDINGS: The visualized lung bases are unremarkable. The visualized portions of the heart are within normal limits. Normal liver. Normal gallbladder and extrahepatic biliary system. Normal spleen. Normal pancreas. Normal bilateral adrenal glands. Normal right kidney. Normal left kidney. Minimal hyperdensity of the renal papilla bilaterally. This may represent medullary sponge kidney. Normal visualized stomach. Normal small intestine. Normal colon. The appendix is visualized and appears normal. Normal abdominal aorta. Normal inferior vena cava. Normal retroperitoneum. Normal urinary bladder. There is a 1.8 cm dominant follicle in the left ovary. Normal abdominal wall. Normal osseous structures. CT/Abdomen/Pelvis without Cont IMPRESSION: 1.8 cm dominant follicle in the left ovary. Findings suggestive of a bilateral medullary sponge kidneys. No ureteral obstruction is seen at this time. Electronically Signed: Gino Morgan MD at 9:22 EST , Service support ,
== END ==
PROVIDERS: Referring Provider Urology; Visit Provider Urology
DX: R10.9 Unspecified abdominal pain (principal); N13.39 Other hydronephrosis; N20.0 Calculus of kidney
CPT/HCPCS: 74176

== ENCOUNTER 2021-04-17 08:51 | Emergency (ER) | payer BC, SELFPAY ==
[2021-04-17 08:52] VITALS: BP 129/105; PULSE 95; RESP 20; TEMP 36.6; O2SAT 98; BMI 22.3
[2021-04-17] MEDS: Morphine 4 MG/ML Syringe IV ×3 (09:08→12:11)
[2021-04-17] MEDS: 0.9% Normal Saline 1,000 ML 1000 ML IV (09:08)
[2021-04-17] MEDS: Ondansetron 4 MG/2 ML Vial IV (09:08)
[2021-04-17 09:11] LABS: Absolute Lymphocyte Count 1.93 X10^3/uL (0.83-4.51); Absolute Neutrophil Count 2.3 X10^3/uL (2.0-7.7); Basophil# 0.04 X10^3/uL; Basophil% 0.8 % (0-1); Eosinophil# 0.14 X10^3/uL; Eosinophils% 2.9 % (0-5); Hematocrit 38.7 % (37-47); Hemoglobin 12.1 g/dL (12.0-15.0); Lymphocyte # 1.93 X10^3/ul (0.83-4.51); Lymphocyte % 39.8 % (19-41); Mean Corp Hgb Conc 31.3 g/dL (32-36); Mean Corpuscular Hgb 29.3 pg (27.0-32.0); Mean Corpuscular Volume 93.7 fL (81-99); Mean Platelet Vol. 10.4 fl (6.2-12.0); Monocyte# 0.46 X10^3/uL; Monocyte% 9.5 % (0-10); NRBC Flagged by Analyzer 0 % (0-5); Neutrophil # 2.26 X10^3/uL (2.7-7.7); Neutrophil % 46.6 % (47-70); Platelet Count 199 K/mm3 (150-450); RBC Distribution Width CV 13.7 % (11.6-14.6); RBC Distribution Width SD 47.3 fl (35.1-43.9); Red Blood Count 4.13 M/mm3 (4.2-5.4); White Blood Count 4.9 K/mm3 (4.4-11.0)
--- NOTE | 2021-04-17 09:16 | EDS_ITS ---
HPI History of Present Illness Chief Complaint: Flank Pain Informant: patient Narrative Narrative: Patient presents with right flank pain. This started about 5 days ago. She has had a history of kidney stones and this feels the same. In the right flank that wraps around to the right mid quadrant area. No real change in urination. She has had nausea vomiting when the pain is bad. No chest pain trouble breathing. She states she has had no fever or chills but gets shaky when the pain gets real bad. This is typical for her. She saw her urologist this morning. With her significant pain and symptoms, the plan was to get a CT scan. Insurance would not approve this as an outpatient. She was sent over here for hydration, pain control, labs and CT. Of note, she evidently does have some kidney injury secondary to multiple stones. For this reason is been recommended she not take any nonsteroidals. [facility] Medical History Asthma Hypertension Kidney disease Home Medications albuterol sulfate [Ventolin HFA] 1 - 2 puff INHALATION Q6H PRN PRN 03/22/13 [History Last Taken 05/24/14 08:49] albuterol sulfate 2.5 mg INHALATION Q6HWA.RT PRN 02/28/20 [History Last Taken Unknown] promethazine 25 mg PO QHS PRN 02/28/20 [History Last Taken Unknown] hydrocodone-acetaminophen 1 tab PO Q6H PRN 3 Days #12 tab 10/23/20 [Rx Last Taken Unknown] Aspir-81 1 tab PO/SL DAILY 12/31/20 [History Last Taken 12/31/20 08:00] trazodone 100 mg PO/SL DAILY 12/31/20 [History Last Taken 12/31/20 19:45] dicyclomine 20 mg PO TID PRN #14 tab 04/17/21 [Rx Last Taken Unknown] ondansetron 4 mg PO Q8H PRN #10 tab 04/17/21 [Rx Last Taken Unknown] Allergy/AdvReac Type Severity Reaction Status Date / Time codeine Allergy Hives Verified 04/17/21 08:55 metronidazole [From Flagyl] Allergy Shortness Verified 04/17/21 08:55 of breath shellfish derived Allergy Angioedema Verified 04/17/21 08:55 topiramate [From Topamax] Allergy Other Verified 04/17/21 08:55 adhesive AdvReac Rash Verified 04/17/21 08:55 NSAIDS (Non-Steroidal AdvReac PT UNSURE Verified 04/17/21 08:55 Anti-Inflamma OF REACTION Social History Smoking Status: Never smoker ROS ROS ED Constitutional Constitutional ED: Denies fever(s) ENT ENT ED: Denies rhinorrhea Cardiovascular Cardiovascular: Denies chest pain or palpitations Respiratory/Chest Respiratory/Chest: Denies cough or dyspnea Gastrointestinal Gastrointestinal: Reports abdominal pain, nausea and vomiting; Denies constipation, diarrhea or melena Genitourinary Genitourinary ED: Reports other Details: see HPI ; Denies dysuria, hematuria or urinary frequency Musculoskeletal Musculoskeletal: Reports back pain and other Details: see HPI ; Denies myalgias Integumentary Denies rash Neurologic Neurologic: Denies headache(s) Psychiatric Psychiatric: Denies anxiety or depression Endocrine Endocrinology: Denies polydipsia or polyuria Allergic/Immunologic Allergic/Immunologic ED: Denies urticaria EXAM Physical Exam Const Vital Signs: 04/17/21 08:52 Temperature 97.9 F Temperature Source Temporal Pulse Rate 95 Respiratory Rate 20 H Blood Pressure 129/105 H Blood Pressure Mean 113 Pulse Ox 98 Oxygen Delivery Method Room Air Positive well nourished and well developed General Appearance ED: well developed Eyes General Eye ED: Negative for pale conjunctiva or scleral icterus Neck no JVD Resp normal respiratory effort and clear to auscultation bilaterally Cardio regular rate and regular rhythm GI normal to inspection, nondistended, normoactive bowel sounds, non-tender, non- distended and no masses Palpation: soft Back/Spine no CVA tenderness Extremity normal to inspection Neuro Sensorium / Orientation: alert Psych mental status grossly normal Skin no rashes or lesions noted MDM MDM MDM Narrative Medical decision making narrative: Patient's blood work really shows normal CBC. Electrolytes are relatively unremarkable. is negative. Urine is clean. No red cells or white cells. CT scan is not showing any acute process. I rechecked the patient. Her pain is much better. Pain is still on the right and radiates toward the front. I am really not getting a lot of right upper quadrant tenderness. When I really push her she states it might be a little bit sore up there. However, she does not have a [place] sign. But I am concerned what is causing her pain. This certainly could be a small kidney stone that were not seen. Her CAT scan is a little bit more difficult to read because she is a thinly on the person that not a lot of intraperitoneal fat. However, with her symptoms we will add liver function test and an ultrasound of the gallbladder at this time. She will be reassessed again. Patient really has normal blood work including CBC electrolytes liver function test urinalysis. She also has normal CT and ultrasound. I did update Dr. Abreu on the results.. I talked with the patient more. She has had a lot of abdominal issues since losing her child in December. She has been diagnosed with IBS. She has seen GI. She had a colonoscopy about 2 years ago. I think she is okay to go home. We did discuss issues to bring her back. Lab Data Attestation: I reviewed the patient's lab results. Labs: Laboratory Results - last 24 hr 04/17/21 04/17/21 04/17/21 09:00 09:00 09:00 WBC 4.9 RBC 4.13 L Hgb 12.1 Hct 38.7 MCV 93.7 MCH 29.3 MCHC 31.3 L RDW Std Deviation 47.3 H RDW Coeff of [place] 13.7 Plt Count 199 MPV 10.4 Immature Gran % (Auto) 0.400 Neut % (Auto) 46.6 L Lymph % (Auto) 39.8 [place] % (Auto) 9.5 Eos % (Auto) 2.9 Baso % (Auto) 0.8 Absolute Neuts (auto) 2.3 Absolute Lymphs (auto) 1.93 Nucleated RBC % 0 Sodium 140 Potassium 4.2 Chloride 108 H Carbon Dioxide 27.0 Anion Gap 5 BUN 15 Creatinine 1.02 Estim Creat Clear Calc 67.11 Est GFR (MDRD) Af Amer 80 Est GFR (MDRD) Non-Af 66 BUN/Creatinine Ratio 14.7 Glucose 74 Calcium 9.3 Total Bilirubin Direct Bilirubin AST ALT Alkaline Phosphatase Total Protein Albumin Globulin Serum , Qual NEGATIVE Urine Color Urine Clarity Urine pH Ur Specific [place] Urine Protein Urine Glucose (UA) Urine Ketones Urine Occult Blood Urine Nitrite Urine Bilirubin Urine Urobilinogen Ur Leukocyte Esterase Urine RBC Urine WBC Ur Squamous Epith Cells Urine Bacteria Urine Mucus POC Glucose 04/17/21 04/17/21 04/17/21 09:00 10:00 12:20 WBC RBC Hgb Hct MCV MCH MCHC RDW Std Deviation RDW Coeff of [place] Plt Count MPV Immature Gran % (Auto) Neut % (Auto) Lymph % (Auto) [place] % (Auto) Eos % (Auto) Baso % (Auto) Absolute Neuts (auto) Absolute Lymphs (auto) Nucleated RBC % Sodium Potassium Chloride Carbon Dioxide Anion Gap BUN Creatinine Estim Creat Clear Calc Est GFR (MDRD) Af Amer Est GFR (MDRD) Non-Af BUN/Creatinine Ratio Glucose Calcium Total Bilirubin 0.30 Direct Bilirubin 0.11 AST 21 ALT 23 Alkaline Phosphatase 65 Total Protein 7.7 Albumin 3.9 Globulin 3.8 Serum , Qual Urine Color Yellow Urine Clarity Clear Urine pH 8.0 Ur Specific [place] 1.010 Urine Protein Negative Urine Glucose (UA) Normal Urine Ketones Negative Urine Occult Blood Negative Urine Nitrite Negative Urine Bilirubin Negative Urine Urobilinogen Normal Ur Leukocyte Esterase Negative Urine RBC 0 SEEN Urine WBC 0 SEEN Ur Squamous Epith Cells 0 SEEN Urine Bacteria 0 SEEN Urine Mucus 0 SEEN POC Glucose 62 L Radiography Diagnostic Testing: Clinical Impression(s) from Imaging Studies Abdomen/Pelvis CT 04/17/21 09:35 IMPRESSION: Normal unenhanced CT of the abdomen and pelvis. Electronically Signed: Gino Morgan MD at 10:01 EST Reading Location ID and State: [facility] / [place] , Service support , Gallbladder Ultrasound 04/17/21 10:28 IMPRESSION: Normal right upper quadrant ultrasound examination. Electronically Signed: Gino Morgan MD at 11:37 EST , Discharge Plan Triage Chief Complaint: Flank Pain ED Provider: Maik Lind Dx/Rx/DC Orders Clinical Impression: Abdominal pain, Acute right flank pain Instructions: ED Flank Pain, Uncertain Cause Prescriptions: New ondansetron 4 mg tablet,disintegrating 4 mg PO Q8H PRN (Reason: nausea and vomiting) Qty: 10 RF: 0 dicyclomine 20 mg tablet 20 mg PO TID PRN (Reason: cramps) Qty: 14 RF: 0 No Action albuterol sulfate [Ventolin HFA] 1 INHALER inhaler 1 - 2 puff inhalation Q6H PRN PRN (Reason: Asthma) RF: 0 albuterol sulfate 2.5 MG/3 ML solution for nebulization 2.5 mg INHALATION Q6HWA.RT PRN (Reason: Asthma) RF: 0 promethazine 25 MG tablet 25 mg PO QHS PRN (Reason: Nausea) RF: 0 hydrocodone-acetaminophen 5-325 mg tablet 1 tab PO Q6H PRN (Reason: pain) 3 Days Qty: 12 RF: 0 Aspir-81 81 mg 1 tab PO/SL DAILY RF: 0 trazodone 100 mg PO/SL DAILY RF: 0 Primary Care Provider: Swahti Potter Referrals: Swathi Potter MD [Primary Care Provider] - Henry Guidry MD [STAFF PHYSICIAN] - 3-5 Days if not improving Disposition Disposition: Home, Self Care
[2021-04-17 09:29] LABS: Anion Gap 5 (5-15); BUN 15 mg/dL (7-18); BUN/Creat Ratio 14.7 RATIO (10-20); Calcium,Total 9.3 mg/dL (8.5-10.1); Chloride 108 mmol/L (98-107); Creatinine, Serum 1.02 mg/dL (0.55-1.02); EST Glomerular Filtration Rate 66 mL/min (>60); Est Glom Filt Rate - Afr Amer 80 mL/min (>60); Estimated Creatinine Clearance 67.11 ml/min; Glucose 74 mg/dL (74-106); Potassium 4.2 mmol/L (3.5-5.1); Sodium Level 140 mmol/L (136-145)
[2021-04-17 09:30] LABS: Internal QC Validated? YES +Cl - CLEAR BKGD; Pregnancy, Serum, hCG Quali. NEGATIVE Negative
--- NOTE | 2021-04-17 09:35 | CT_ITS ---
STUDY: CT ABDOMEN AND PELVIS WITHOUT CONTRAST REASON FOR EXAM: Female, 35 years old. Flank pain RADIATION DOSAGE (If Supplied By Facility): CTDIvol = ( 6.18 ) mGy, DLP = ( 308.86 ) mGycm TECHNIQUE: Transaxial images were obtained from the dome of the diaphragm to the symphysis pubis without oral contrast, and without intravenous contrast. Sagittal and coronal images were reconstructed. Individualized dose optimization techniques were used for this CT. COMPARISON: Comparison is made with prior study dated 02/07/2021. FINDINGS: The visualized lung bases are unremarkable. The visualized portions of the heart are within normal limits. Normal liver. Normal gallbladder and extrahepatic biliary system. Normal spleen. Normal pancreas. Normal bilateral adrenal glands. Normal right kidney. Normal left kidney. Normal visualized stomach. Normal small intestine. Normal colon. The appendix is visualized and appears normal. Normal abdominal aorta. Normal inferior vena cava. Normal retroperitoneum. Normal urinary bladder. Normal abdominal wall. Normal osseous structures. CT/Abdomen/Pelvis without Cont IMPRESSION: Normal unenhanced CT of the abdomen and pelvis. Electronically Signed: Gino Morgan MD at 10:01 [facility] ,
[2021-04-17 10:05] LABS: Bacteria 0 SEEN /hpf (None Seen); Mucous, Urine 0 SEEN /hpf (<or=2+); Red Blood Cells-Urine 0 SEEN /hpf (0-5); Squamous Epithelial Cells - UA 0 SEEN /hpf (5-10); White Blood Cells 0 SEEN /hpf (0-5)
[2021-04-17 10:08] LABS: Color, Urine Yellow (Yellow); Glucose, Dipstick Normal (Normal); Ketone-Dipstick Negative (Negative); Leukocyte Esterase-Dipstick Negative /ul (Negative); Nitrite-Dipstick Negative (Negative); Occult Blood-Urine Negative /ul (Negative); Protein-Dipstick Negative (Negative); Urine Bilirubin Dipstick Negative (Negative); Urine Clarity Clear (Clear); Urine Urobilinogen Normal (Normal)
--- NOTE | 2021-04-17 10:28 | US_ITS ---
STUDY: ABDOMINAL ULTRASOUND - RIGHT UPPER QUADRANT REASON FOR VISIT: Female, 35 years old abdominal and flank pain. TECHNIQUE: Ultrasound evaluation of the right upper quadrant was performed with real-time and static khan-scale imaging. TECHNICAL QUALITY: Adequate. COMPARISON: Comparison is made with prior scan done earlier today. FINDINGS: Liver: The liver measures 13.3 cm. There is normal echogenicity of the liver. The bile ducts are within normal limits. There is hepatic color flow. The direction of portal flow is hepatopetal. There is no demonstrated mass lesion. Gallbladder: Normal distended gallbladder. The gallbladder wall measures 1.8 mm. There is a negative sonographic [place]''s sign. There is no pericholecystic fluid. There are no gallstones. Common Bile Duct (C.B.D.): The common bile duct measures 3.8 mm. Pancreas: Normal size of the head, body and tail of the pancreas. There is normal echogenicity of the pancreas. There is no demonstrated pancreatic mass or cyst. Right Kidney: Normal size of the right kidney. The right kidney measures 10.1 cm x 5.7 cm x 3.9 cm. Normal renal cortex. The right cortex measures 1 cm. There is no demonstrated renal mass or cyst. There is no right hydronephrosis. US/Gallbladder IMPRESSION: Normal right upper quadrant ultrasound examination. Electronically Signed: Gino Morgan MD at 11:37 EST ,
[2021-04-17 10:58] LABS: AST(SGOT) 21 U/L (15-37); Alanine Aminotransfer ALT/SGPT 23 U/L (13-56); Albumin, Serum 3.9 g/dL (3.2-5.0); Alkaline Phosphatase 65 U/L (45-117); Bilirubin, Direct 0.11 mg/dL (0.00-0.30); Globulin 3.8 g/dL (2.2-4.2); Protein, Total 7.7 g/dL (6.4-8.2)
[2021-04-17 12:25] LABS: Bedside Glucose 62 mg/dL (74-106)
[2021-04-17 12:37] VITALS: BP 106/78; PULSE 74; RESP 16; O2SAT 100
[2021-04-17 12:56] VITALS: BP 109/74; PULSE 76; RESP 15; O2SAT 99
== END 2021-04-17 12:56 | disposition home or self-care (01) ==
PROVIDERS: Emergency Provider Emergency Medicine; PCP Urology; Visit Provider Emergency Medicine
DX: R10.9 Unspecified abdominal pain (principal); R11.2 Nausea with vomiting, unspecified; N20.0 Calculus of kidney; N19 Unspecified kidney failure; I10 Essential (primary) hypertension; K58.9 Irritable bowel syndrome, unspecified
CPT/HCPCS: 74176; 76705; 80048; 80076; 81001; 82962; 84703; 85025; 96361; 96374; 96375; 96376; 99285; J7030; A4216; J2405

== ENCOUNTER 2021-06-06 14:19 | Observation (INO) | payer BC, SELFPAY ==
[2021-06-06] VITALS (7 sets, daily range): BP systolic 106–126; BP diastolic 64–98; PULSE 60–97; RESP 18–20; TEMP 36.4–37.1; O2SAT 96–100; BMI 24.1; BMI 23.1
--- NOTE | 2021-06-06 14:47 | EKG12_ITS ---
Test Reason : REPEAT Blood Pressure : / mmHG Vent. Rate : 053 BPM Atrial Rate : 053 BPM P-R Int : 126 ms QRS Dur : 074 ms QT Int : 438 ms P-R-T Axes : 048 062 069 degrees QTc Int : 410 ms Sinus bradycardia Otherwise normal ECG Confirmed by JACEK COFFEY, SONAL ([id number]), publishing editor MESHA FREEMAN ([id number]) on 06/11/2021 8:52:33 AM Referred By: SARAH Confirmed By:SONAL READ MD
--- NOTE | 2021-06-06 14:50 | EX.ED.DYSGE1 ---
HPI <MARLENE Murillo - Last Filed: 06/06/21 18:28> History of Present Illness Chief Complaint: Chest Pain Narrative Narrative: 35-year-old female with history of anxiety, depression, kidney stones presents to the emergency department with a sudden onset of left-sided epigastric pain, left-sided chest pain that radiates to her shoulder blades. Patient stated this occurred after she ate lunch, patient did have a large lunch, she states that the pain is severe at an 8 out of 10. Patient did receive a sublingual nitro however this was unremarkable. Patient denies any nausea or vomiting, fever chills, coughing. Patient denies any cardiac history. She is currently in counseling for the loss of her that was happening in December 2020, she states that she has never had a panic attack or anything like that. PFSH <MARLENE Murillo - Last Filed: 06/06/21 18:28> [facility] Medical History (Updated 06/06/21 @ 19:[address] Galen Mendoza DO) Anxiety Asthma Depression Hypertension Hypoglycemia Kidney disease Kidney stones Migraines Home Medications albuterol sulfate [Ventolin HFA] 1 - 2 puff INHALATION Q6H PRN PRN 03/22/13 [History Last Taken 05/24/14 08:49] albuterol sulfate 2.5 mg INHALATION Q6HWA.RT PRN 02/28/20 [History Last Taken Unknown] promethazine 25 mg PO QHS PRN 02/28/20 [History Last Taken 05/30/21] hydrocodone-acetaminophen 1 tab PO Q6H PRN 3 Days #12 tab 10/23/20 [Rx Last Taken 06/01/21] trazodone 150 mg PO/SL DAILY 12/31/20 [History Last Taken 06/05/21] ondansetron 4 mg PO Q8H PRN #10 tab 04/17/21 [Rx Last Taken 06/06/21] lorazepam 0.5 mg PO DAILY PRN PRN 06/06/21 [History Last Taken 05/23/21] sertraline 100 mg PO DAILY 06/06/21 [History Last Taken 06/06/21] tizanidine 2 mg PO DAILY 06/06/21 [History Last Taken 06/05/21] Allergy/AdvReac Type Severity Reaction Status Date / Time codeine Allergy Hives Verified 06/06/21 14:24 metronidazole [From Flagyl] Allergy Shortness Verified 06/06/21 14:24 of breath shellfish derived Allergy Angioedema Verified 06/06/21 14:24 topiramate [From Topamax] Allergy Other Verified 06/06/21 14:24 adhesive AdvReac Rash Verified 06/06/21 14:24 NSAIDS (Non-Steroidal AdvReac PT UNSURE Verified 06/06/21 14:24 Anti-Inflamma OF REACTION Family History (Updated 06/06/21 @ 18:42 by Olga Lidia Alvarado NP, TROUBLE OPERATOR-C) Father No cardiac disease Mother No cardiac disease Surgical History (Updated 06/06/21 @ 18:45 by Olga Lidia Alvarado NP, TROUBLE OPERATOR-C) Previous section S/P breast lumpectomy S/P tonsillectomy Social History (Updated 06/06/21 @ 18:45 by Olga Lidia Alvarado NP, TROUBLE OPERATOR-C) household members: spouse Smoking Status: Never smoker alcohol intake: never substance use type: does not use ROS <Henry Barreto NP-Sarbjit - Last Filed: 06/06/21 18:28> ROS ED ROS Narrative Constitutional: Negative for fever, chills, weight loss, weakness Eyes: Negative for vision loss, vision change, double vision ENT: Negative for any sore throat, ear pain, congestion Cardiovascular: Negative for any tightness, palpitations, racing heartbeat. Positive for left-sided chest pain, epigastric pain that radiates to bilateral shoulder blades Respiratory: Negative for any cough, sputum production, hemoptysis, shortness of breath, shortness of breath on exertion, orthopnea Gastrointestinal: Negative for any nausea, vomiting, diarrhea, constipation, blood in stool, blood in vomit. Positive for left upper abdominal pain : Negative for any urinary frequency, incontinence, dysuria, retention, blood in urine Muscle skeletal: Negative for any muscle joint pain, stiffness, myalgias, arthralgias, neck pain, back pain Neurological: Negative for any headache, dizziness, syncope, numbness or tingling Skin: Negative for any rashes, lumps, itching, abrasions, lacerations Psychiatric: Negative for any depression, anxiety, stress, suicidal ideation, homicidal ideation Hematologic: Negative for any easy bruising, excessive bruising, easy bleeding Allergies: Negative for any eczema, hives, rash EXAM <MARLENE Murillo - Last Filed: 06/06/21 18:28> Physical Exam Narrative Exam Narrative: Vital signs reviewed. Patient does appear to be shaky, patient does appear to be anxious. HEET: Head normocephalic atraumatic, TMs clear bilaterally. Posterior pharynx is clear, moist mucous membranes. Nares clear bilaterally. Neck: Supple with no lymphadenopathy or tenderness. No signs of meningismus, negative jolt sign. Cardiac: Regular rate and rhythm no murmurs gallops or rubs, equal peripheral pulses bilaterally. Respiratory: Lungs clear to auscultation bilaterally. No chest tenderness. Patient does have left-sided chest pain with inspiration. Patient states the pain in her back feels better when she sits more forward. When she lays back she feels worsening pain. Abdomen: Soft, nontender, nondistended. No abdominal bruit or pulsatile masses. No hepatosplenomegaly Extremities: No peripheral edema, no signs of gross trauma or deformity. Active full range of motion of all extremities. Neuro: Cranial nerves II through XII intact, no focal neurological deficits. Skin: Clean dry and intact with no rash, purpura, petechiae, vesicles or pustules. Backslash flank: No CVA tenderness, no midline spinal tenderness, no deformity. Psych: Normal mood and affect. No SI, HI or acute psychosis. Const Vital Signs: 06/06/21 14:19 06/06/21 14:25 06/06/21 16:35 Temperature 98.8 F Temperature Source Temporal Pulse Rate 97 94 Respiratory Rate 20 H 18 Respiratory Effort Short of Breath Blood Pressure 106/76 Blood Pressure Mean 86 Pulse Ox 100 98 Oxygen Delivery Method Room Air Room Air 06/06/21 16:52 06/06/21 17:32 06/06/21 18:48 Temperature 98.1 F Temperature Source Oral Pulse Rate 64 60 Respiratory Rate 18 18 Respiratory Effort Blood Pressure 125/98 H 116/85 H 126/78 H Blood Pressure Mean 107 95 94 Pulse Ox 96 Oxygen Delivery Method Room Air Positive well nourished and well developed General Appearance ED: well developed <Dr. Galen Mendoza DO - Last Filed: 06/06/21 23:03> Physical Exam Const Vital Signs: 06/06/21 14:19 06/06/21 14:25 06/06/21 16:35 Temperature 98.8 F Temperature Source Temporal Pulse Rate 97 94 Respiratory Rate 20 H 18 Respiratory Effort Short of Breath Blood Pressure 106/76 Blood Pressure Mean 86 Pulse Ox 100 98 Oxygen Delivery Method Room Air Room Air 06/06/21 16:52 06/06/21 17:32 06/06/21 18:48 Temperature 98.1 F Temperature Source Oral Pulse Rate 64 60 Respiratory Rate 18 18 Respiratory Effort Blood Pressure 125/98 H 116/85 H 126/78 H Blood Pressure Mean 107 95 94 Pulse Ox 96 Oxygen Delivery Method Room Air [facility] <Henry Barreto TROUBLE OPERATOR-C - Last Filed: 06/06/21 18:28> [facility] Narrative Medical decision making narrative: Patient arrives in moderate distress secondary to left-sided chest pain, left back shoulder pain. Patient had a full work-up, patient's CBC was unremarkable, patient's D-dimer was negative, patient's chemistries were unremarkable. Patient's troponin was negative, patient's urinalysis was negative for any infection. Patient did require multiple doses of opioid pain medicine, patient continued to have severe pain and is unable to keep still. There was a concern for pulmonary embolus versus dissection. Patient did receive a CTA of the chest abdomen pelvis. This did show no evidence of aortic dissection, aortic aneurysm, or pulmonary embolism. There is a small left ovarian cyst. Some trace free fluid in the pelvis. She did receive venous duplex of bilateral lower extremities, this showed no evidence of acute deep vein thrombosis, bilateral extremities had patent and comprehensible bilateral great saphenous veins. Patient did receive a chest x-ray read by ER attending which showed no radiographic evidence of acute cardiopulmonary process. We did speak with cardiology, due to the patient's pain, the patient will need to have an echocardiogram. Patient will need to be admitted to the hospital for this intractable chest pain. Hospitalist was consulted, he will be down to evaluate the patient Lab Data Labs: Laboratory Results - last 24 hr 06/06/21 06/06/21 06/06/21 14:28 14:28 14:28 WBC 7.4 RBC 3.98 L Hgb 11.9 L Hct 37.2 MCV 93.5 MCH 29.9 MCHC 32.0 RDW Std Deviation 44.3 H RDW Coeff of Sierra 12.9 Plt Count 231 MPV 10.5 Immature Gran % (Auto) 0.400 Neut % (Auto) 58.2 Lymph % (Auto) 32.0 Grayson % (Auto) 6.9 Eos % (Auto) 1.8 Baso % (Auto) 0.7 Absolute Neuts (auto) 4.3 Absolute Lymphs (auto) 2.37 Nucleated RBC % 0 ESR 10 PT INR APTT D-Dimer Quant (PE/DVT) < 0.27 L Sodium 141 Potassium 4.2 Chloride 109 H Carbon Dioxide 25.0 Anion Gap 7 BUN 15 Creatinine 0.98 Estim Creat Clear Calc 69.85 Est GFR (MDRD) Af Amer 84 Est GFR (MDRD) Non-Af 69 BUN/Creatinine Ratio 15.4 Glucose 93 Calcium 9.4 Total Bilirubin 0.30 AST 14 L ALT 23 Alkaline Phosphatase 74 Troponin I High Sens Total Protein 7.2 Albumin 3.6 Globulin 3.6 Albumin/Globulin Ratio 1.0 Lipase 136 Urine Color Urine Clarity Urine pH Ur Specific Redrock Urine Protein Urine Glucose (UA) Urine Ketones Urine Occult Blood Urine Nitrite Urine Bilirubin Urine Urobilinogen Ur Leukocyte Esterase Urine RBC Urine WBC Ur Squamous Epith Cells Urine Bacteria Urine Mucus Urine Test 06/06/21 06/06/21 06/06/21 14:28 14:28 15:00 WBC RBC Hgb Hct MCV MCH MCHC RDW Std Deviation RDW Coeff of Sierra Plt Count MPV Immature Gran % (Auto) Neut % (Auto) Lymph % (Auto) Grayson % (Auto) Eos % (Auto) Baso % (Auto) Absolute Neuts (auto) Absolute Lymphs (auto) Nucleated RBC % ESR PT 13.0 INR 1.0 APTT 29.6 D-Dimer Quant (PE/DVT) Sodium Potassium Chloride Carbon Dioxide Anion Gap BUN Creatinine Estim Creat Clear Calc Est GFR (MDRD) Af Amer Est GFR (MDRD) Non-Af BUN/Creatinine Ratio Glucose Calcium Total Bilirubin AST ALT Alkaline Phosphatase Troponin I High Sens < 3 L Total Protein Albumin Globulin Albumin/Globulin Ratio Lipase Urine Color Yellow Urine Clarity Clear Urine pH 7.0 Ur Specific Redrock 1.015 Urine Protein Negative Urine Glucose (UA) Normal Urine Ketones Negative Urine Occult Blood Negative Urine Nitrite Negative Urine Bilirubin Negative Urine Urobilinogen Normal Ur Leukocyte Esterase Negative Urine RBC 0 SEEN Urine WBC 0-5 SEEN Ur Squamous Epith Cells 0-5 SEEN Urine Bacteria 0 SEEN Urine Mucus 0 SEEN Urine Test Negative 06/06/21 16:30 WBC RBC Hgb Hct MCV MCH MCHC RDW Std Deviation RDW Coeff of Sierra Plt Count MPV Immature Gran % (Auto) Neut % (Auto) Lymph % (Auto) Grayson % (Auto) Eos % (Auto) Baso % (Auto) Absolute Neuts (auto) Absolute Lymphs (auto) Nucleated RBC % ESR PT INR APTT D-Dimer Quant (PE/DVT) Sodium Potassium Chloride Carbon Dioxide Anion Gap BUN Creatinine Estim Creat Clear Calc Est GFR (MDRD) Af Amer Est GFR (MDRD) Non-Af BUN/Creatinine Ratio Glucose Calcium Total Bilirubin AST ALT Alkaline Phosphatase Troponin I High Sens < 3 L Total Protein Albumin Globulin Albumin/Globulin Ratio Lipase Urine Color Urine Clarity Urine pH Ur Specific [place] Urine Protein Urine Glucose (UA) Urine Ketones Urine Occult Blood Urine Nitrite Urine Bilirubin Urine Urobilinogen Ur Leukocyte Esterase Urine RBC Urine WBC Ur Squamous Epith Cells Urine Bacteria Urine Mucus Urine Test Radiography Diagnostic Testing: Clinical Impression(s) from Imaging Studies Chest X-Ray 06/06/21 15:00 IMPRESSION: No radiographic evidence of acute cardiopulmonary disease. Electronically Signed: Valeriy Campuzano MD at 15:38 EDT , Chest/Abdomen/Pelvis CTA 06/06/21 15:26 IMPRESSION: No evidence for aortic dissection, aortic aneurysm, or pulmonary embolism. Small left ovarian cyst. Trace free fluid in the pelvis. Individualized dose optimization techniques were used for this CT. at 1653 Reported and signed by: Theresa Bowden MD Electronically Signed: Theresa Bowden MD at 16:52 EDT , Venous Doppler Study 06/06/21 15:26 Interpretation Summary No evidence for acute deep venous thrombosis bilateral lower extremities with patent and compressible bilateral great saphenous veins. Ordering Physician: Galen Mendoza Performed By: Stevo Fonseca RVT <Dr. Galen Mendoza, DO - Last Filed: 06/06/21 23:03> [facility] MDM Narrative Medical decision making narrative: Attending note: Patient seen and evaluated with rivet hole machine operator. I perform my own [id number] evaluation. I agree with the plan of work-up. Sudden left shoulder scapular left lower rib pain at work started at 1 PM. Pain is increasing dyspnea. Nausea. Grandfather [place] at 52 and . No tobacco history. History of hypertension not on any medications. History of depression on Zoloft lost her 5-month-old child in December 2019. History of kidney stones. Denies flank pain or urinary symptoms. No history of similar. Exam patient tachypneic uncomfortable and distressed. Heart was regular lungs were clear. No rash chest was nontender and nonreproducible. EKG was sinus rhythm work-up cardiac work-up negative D-dimer is negative initial troponin less than 3. With her significant distress CT chest abdomen pelvis was obtained read negative, I reviewed the images again with additional radiologist due to admission 1 leaving. There was my concerns for apex changes of the aorta, however this was directly reviewed of multiple segments and states it was artifact by radiology. No dissection. No PE. No thrombus. Repeat EKG had bimodal T wave changes in V2 compared to the first 1. She required 5 doses of opiate IV pain medicines. I did showed EKGs to precast molder Dr. Issa, agrees with changes however states nonspecific due to her pain agrees with admission for monitoring and echocardiogram in the hospital. I spoke with hospitalist Dr. Madden, for admission for observations. Patient had negative ESR. There is no pericardial effusions, there is no signs of pericarditis on EKG and patient denies any recent illness. Lab Data Attestation: I reviewed the patient's lab results. Labs: Laboratory Results - last 24 hr 06/06/21 06/06/21 06/06/21 14:28 14:28 14:28 WBC 7.4 RBC 3.98 L Hgb 11.9 L Hct 37.2 MCV 93.5 MCH 29.9 MCHC 32.0 RDW Std Deviation 44.3 H RDW Coeff of Sierra 12.9 Plt Count 231 MPV 10.5 Immature Gran % (Auto) 0.400 Neut % (Auto) 58.2 Lymph % (Auto) 32.0 Grayson % (Auto) 6.9 Eos % (Auto) 1.8 Baso % (Auto) 0.7 Absolute Neuts (auto) 4.3 Absolute Lymphs (auto) 2.37 Nucleated RBC % 0 ESR 10 PT INR APTT D-Dimer Quant (PE/DVT) < 0.27 L Sodium 141 Potassium 4.2 Chloride 109 H Carbon Dioxide 25.0 Anion Gap 7 BUN 15 Creatinine 0.98 Estim Creat Clear Calc 69.85 Est GFR (MDRD) Af Amer 84 Est GFR (MDRD) Non-Af 69 BUN/Creatinine Ratio 15.4 Glucose 93 Calcium 9.4 Total Bilirubin 0.30 AST 14 L ALT 23 Alkaline Phosphatase 74 Troponin I High Sens Total Protein 7.2 Albumin 3.6 Globulin 3.6 Albumin/Globulin Ratio 1.0 Lipase 136 Urine Color Urine Clarity Urine pH Ur Specific [place] Urine Protein Urine Glucose (UA) Urine Ketones Urine Occult Blood Urine Nitrite Urine Bilirubin Urine Urobilinogen Ur Leukocyte Esterase Urine RBC Urine WBC Ur Squamous Epith Cells Urine Bacteria Urine Mucus Urine Test 06/06/21 06/06/21 06/06/21 14:28 14:28 15:00 WBC RBC Hgb Hct MCV MCH MCHC RDW Std Deviation RDW Coeff of [place] Plt Count MPV Immature Gran % (Auto) Neut % (Auto) Lymph % (Auto) Grayson % (Auto) Eos % (Auto) Baso % (Auto) Absolute Neuts (auto) Absolute Lymphs (auto) Nucleated RBC % ESR PT 13.0 INR 1.0 APTT 29.6 D-Dimer Quant (PE/DVT) Sodium Potassium Chloride Carbon Dioxide Anion Gap BUN Creatinine Estim Creat Clear Calc Est GFR (MDRD) Af Amer Est GFR (MDRD) Non-Af BUN/Creatinine Ratio Glucose Calcium Total Bilirubin AST ALT Alkaline Phosphatase Troponin I High Sens < 3 L Total Protein Albumin Globulin Albumin/Globulin Ratio Lipase Urine Color Yellow Urine Clarity Clear Urine pH 7.0 Ur Specific [place] 1.015 Urine Protein Negative Urine Glucose (UA) Normal Urine Ketones Negative Urine Occult Blood Negative Urine Nitrite Negative Urine Bilirubin Negative Urine Urobilinogen Normal Ur Leukocyte Esterase Negative Urine RBC 0 SEEN Urine WBC 0-5 SEEN Ur Squamous Epith Cells 0-5 SEEN Urine Bacteria 0 SEEN Urine Mucus 0 SEEN Urine Test Negative 06/06/21 16:30 WBC RBC Hgb Hct MCV MCH MCHC RDW Std Deviation RDW Coeff of [place] Plt Count MPV Immature Gran % (Auto) Neut % (Auto) Lymph % (Auto) Grayson % (Auto) Eos % (Auto) Baso % (Auto) Absolute Neuts (auto) Absolute Lymphs (auto) Nucleated RBC % ESR PT INR APTT D-Dimer Quant (PE/DVT) Sodium Potassium Chloride Carbon Dioxide Anion Gap BUN Creatinine Estim Creat Clear Calc Est GFR (MDRD) Af Amer Est GFR (MDRD) Non-Af BUN/Creatinine Ratio Glucose Calcium Total Bilirubin AST ALT Alkaline Phosphatase Troponin I High Sens < 3 L Total Protein Albumin Globulin Albumin/Globulin Ratio Lipase Urine Color Urine Clarity Urine pH Ur Specific [place] Urine Protein Urine Glucose (UA) Urine Ketones Urine Occult Blood Urine Nitrite Urine Bilirubin Urine Urobilinogen Ur Leukocyte Esterase Urine RBC Urine WBC Ur Squamous Epith Cells Urine Bacteria Urine Mucus Urine Test Radiography Diagnostic Testing: Clinical Impression(s) from Imaging Studies Chest X-Ray 06/06/21 15:00 IMPRESSION: No radiographic evidence of acute cardiopulmonary disease. Electronically Signed: Valeriy Campuzano MD at 15:38 EDT Reading Location ID and State: [facility] / [place] Tel , Service support , Chest/Abdomen/Pelvis CTA 06/06/21 15:26 IMPRESSION: No evidence for aortic dissection, aortic aneurysm, or pulmonary embolism. Small left ovarian cyst. Trace free fluid in the pelvis. Individualized dose optimization techniques were used for this CT. at 1653 Reported and signed by: Theresa Bowden MD Electronically Signed: Theresa Bowden MD at 16:52 EDT , Venous Doppler Study 06/06/21 15:26 Interpretation Summary No evidence for acute deep venous thrombosis bilateral lower extremities with patent and compressible bilateral great saphenous veins. Ordering Physician: Galen Mendoza Performed By: Stevo Fonseca T Initial EKG: Attestation: I personally reviewed and interpreted this EKG as follows: Comments: Sinus rate of 85, no ST or T wave changes. Follow-up EKG: Attestation: I personally reviewed and interpreted this EKG as follows: Comments: Sinus rate of 53, no ST changes there is bimodal T waves in V2 different from initial EKG. No ST elevations. <Dr. Galen Mendoza, - Last Filed: 06/06/21 23:03> Critical Care Time Critical Care Time: Yes Critical care time (excluding procedures): 30-74 minutes, Discussing w/Patient &/or Family/Industrial Equipment Wirer, Discussing w/Consultants, Arranging Admission or Transfer, Performing Direct Patient Care at Bedside and - (40 minutes) Discharge Plan Dx/Rx/DC Orders Clinical Impression: Chest pain, Abnormal EKG Disposition Disposition: Acute Care [facility] Discharge Date/Time: 06/06/21 20:06
[2021-06-06] MEDS: 0.9% Normal Saline 1,000 ML 1000 ML IV (14:57)
[2021-06-06] MEDS: Morphine 4 MG/ML Syringe IV ×3 (14:57→21:04)
[2021-06-06] MEDS: Ondansetron 4 MG/2 ML Vial IV ×3 (14:57→21:04)
--- NOTE | 2021-06-06 15:00 | RAD_ITS ---
INDICATION: shortness of breath EXAMINATION/TECHNIQUE: X-RAY - XR Chest 1 View COMPARISON: 11/17/2011. FINDINGS: LINES/DEVICES: None. LUNGS: No consolidation, edema or effusion. No pneumothorax. Peribronchial cuffing is visualized that demonstrates no significant change in comparison to the prior study, no evidence of focal infiltrate or consolidation. MEDIASTINUM AND CARDIOVASCULAR STRUCTURES: Cardiac silhouette not enlarged. BONES AND SOFT TISSUES: Unremarkable. RAD/Chest 1 View (Portable) IMPRESSION: No radiographic evidence of acute cardiopulmonary disease. Electronically Signed: Valeriy Campuzano MD at 15:38 EDT ,
[2021-06-06 15:04] LABS: Bacteria 0 SEEN /hpf (None Seen); Mucous, Urine 0 SEEN /hpf (<or=2+); Red Blood Cells-Urine 0 SEEN /hpf (0-5)
[2021-06-06 15:05] LABS: Absolute Lymphocyte Count 2.37 X10^3/uL (0.83-4.51); Absolute Neutrophil Count 4.3 X10^3/uL (2.0-7.7); Basophil# 0.05 X10^3/uL; Basophil% 0.7 % (0-1); Eosinophil# 0.13 X10^3/uL; Eosinophils% 1.8 % (0-5); Hematocrit 37.2 % (37-47); Hemoglobin 11.9 g/dL (12.0-15.0); Lymphocyte # 2.37 X10^3/ul (0.83-4.51); Mean Corpuscular Hgb 29.9 pg (27.0-32.0); Mean Corpuscular Volume 93.5 fL (81-99); Mean Platelet Vol. 10.5 fl (6.2-12.0); Monocyte# 0.51 X10^3/uL; Monocyte% 6.9 % (0-10); NRBC Flagged by Analyzer 0 % (0-5); Neutrophil # 4.32 X10^3/uL (2.7-7.7); Neutrophil % 58.2 % (47-70); Platelet Count 231 K/mm3 (150-450); RBC Distribution Width CV 12.9 % (11.6-14.6); RBC Distribution Width SD 44.3 fl (35.1-43.9); Red Blood Count 3.98 M/mm3 (4.2-5.4); White Blood Count 7.4 K/mm3 (4.4-11.0)
[2021-06-06 15:15] LABS: AST(SGOT) 14 U/L (15-37); Alanine Aminotransfer ALT/SGPT 23 U/L (13-56); Albumin, Serum 3.6 g/dL (3.2-5.0); Alkaline Phosphatase 74 U/L (45-117); Anion Gap 7 (5-15); BUN 15 mg/dL (7-18); BUN/Creat Ratio 15.4 RATIO (10-20); Calcium,Total 9.4 mg/dL (8.5-10.1); Chloride 109 mmol/L (98-107); Creatinine, Serum 0.98 mg/dL (0.55-1.02); EST Glomerular Filtration Rate 69 mL/min (>60); Erythrocyte Sedimentation Rate 10 mm/hr (0-30); Est Glom Filt Rate - Afr Amer 84 mL/min (>60); Estimated Creatinine Clearance 69.85 ml/min; Globulin 3.6 g/dL (2.2-4.2); Glucose 93 mg/dL (74-106); Lipase 136 U/L (73-393); Potassium 4.2 mmol/L (3.5-5.1); Protein, Total 7.2 g/dL (6.4-8.2); Sodium Level 141 mmol/L (136-145)
[2021-06-06 15:20] LABS: D-Dimer Quantitative (DVT/PE) < 0.27 FEU/ug/m (0.27-0.49)
[2021-06-06 15:21] LABS: Color, Urine Yellow (Yellow); Glucose, Dipstick Normal (Normal); Ketone-Dipstick Negative (Negative); Leukocyte Esterase-Dipstick Negative /ul (Negative); Nitrite-Dipstick Negative (Negative); Occult Blood-Urine Negative /ul (Negative); Protein-Dipstick Negative (Negative); Specific Gravity, Urine 1.015 (1.002-1.030); Urine Bilirubin Dipstick Negative (Negative); Urine Clarity Clear (Clear); Urine Urobilinogen Normal (Normal)
[2021-06-06 15:24] LABS: Internal QC Validated? YES +Cl - CLEAR BKGD; Pregnancy, Urine Negative Negative
[2021-06-06 15:26] LABS: Squamous Epithelial Cells - UA 0-5 SEEN /hpf (5-10); White Blood Cells 0-5 SEEN /hpf (0-5)
--- NOTE | 2021-06-06 15:26 | VDLE_ITS ---
Reason For Study: swelling RIGHT LEFT GSV is normal. GSV is normal. CFV is compressible, spontaneous, phasic, CFV is compressible, spontaneous, phasic, competent and demonstrates normal competent, and demonstrates normal augmentation. augmentation. FV is compressible, spontaneous, phasic, FV is compressible, spontaneous, phasic, competent and demonstrates normal competent and demonstrates normal augmentation. augmentation. POP V is compressible, spontaneous, phasic, POP V is compressible, spontaneous, phasic, competent and demonstrates normal competent and demonstrates normal augmentation. augmentation. T/P Trunk is compressible. T/P Trunk is compressible. PTV is compressible. PTV is compressible. RT PerV is compressible. LT PerV is compressible. Procedure This is a venous duplex using B-mode, color flow and spectral Doppler. Exam performed portable in ED. The exam was diagnostic. A preliminary report was called and/or faxed to the pt's RN. VL/Venous Duplex US - Suresh Extrem Interpretation Summary No evidence for acute deep venous thrombosis bilateral lower extremities with p atent and compressible bilateral great saphenous veins. Ordering Physician: Galen Mendoza Performed By: Stevo Fonseca RVT
--- NOTE | 2021-06-06 15:26 | CT_ITS ---
HISTORY: chest pain --SOB. TECHNIQUE: Helically acquired images were obtained of the chest, abdomen, and pelvis following IV contrast as per angiogram protocol with 2-D and 3-D reconstructions. A radiation dose optimization technique was used for this scan. IV Contrast dosage and agent: 100 mL Isovue-370. Oral contrast: None. # of images incl. paperwork: [id number]. COMPARISON: XR same day, CT 05/07/2021. FINDINGS: Chest: CENTRAL AIRWAYS: Patent. LUNGS: Clear. PLEURA: No pneumothorax or pleural effusion. HEART/PERICARDIUM: No cardiomegaly. No significant pericardial effusion. AORTA/VESSELS: No aortic aneurysm or dissection flap. No large central filling defect in the pulmonary arteries although examination not optimized for evaluation of pulmonary arteries. MEDIASTINUM/BHAVNA: No pathologically enlarged lymphadenopathy. OSSEOUS STRUCTURES: Intact. Abdomen and pelvis: BOWEL: Bowel including appendix nondilated. Moderate stool in the colon. PERITONEUM:No free air. LIVER/SPLEEN/PANCREAS: Unremarkable. GALLBLADDER AND BILIARY TREE: No calcified gallstones. There is no gallbladder distension or wall edema. No intra- or extrahepatic biliary ductal dilation. KIDNEYS/ADRENAL GLANDS: No focal lesions. VESSELS: No abdominal aortic aneurysm or dissection flap. Patent celiac axis as well as superior and inferior mesenteric arteries. Patent single right, main left, and accessory left renal arteries. Patent bilateral common iliac arteries. PELVIC ORGANS: 2.2 cm left ovarian cyst. Trace free fluid in the pelvis. BONES: Schmorl's nodes at L5-S1 again seen. CT/CTA Chst, Abd, Pel W and/or WO IMPRESSION: No evidence for aortic dissection, aortic aneurysm, or pulmonary embolism. Small left ovarian cyst. Trace free fluid in the pelvis. Individualized dose optimization techniques were used for this CT. at 1653 Reported and signed by: Theresa Bowden MD Electronically Signed: Theresa Bowden MD at 16:52 EDT Reading Location ID and State: [facility] / [place] Tel , Service support ,
[2021-06-06 15:37] LABS: Troponin-I HS < 3 pg/mL (3.0-54.0)
[2021-06-06] MEDS: HYDROmorphone 1 MG/ML Syringe IV (16:34)
[2021-06-06] MEDS: fentaNYL 100 MCG/2 ML Ampul IV (16:58)
[2021-06-06 17:05] LABS: Partial Thromboplast Time 29.6 Seconds (24.1-36.2)
--- NOTE | 2021-06-06 17:29 | EKG12_ITS ---
Test Reason : CP Blood Pressure : / mmHG Vent. Rate : 085 BPM Atrial Rate : 085 BPM P-R Int : 142 ms QRS Dur : 070 ms QT Int : 348 ms P-R-T Axes : 052 068 069 degrees QTc Int : 414 ms Normal sinus rhythm Normal ECG Confirmed by JACEK COFFEY, SONAL ([id number]), editor in chief newspaper MESHA FREEMAN ([id number]) on 06/11/2021 8:52:46 AM Referred By: KAYDEN Confirmed By:SONAL READ MD
[2021-06-06] MEDS: fentaNYL 100 MCG/2 ML Ampul 50 MCG IV (17:36)
[2021-06-06 17:57] LABS: Troponin-I HS < 3 pg/mL (3.0-54.0)
--- NOTE | 2021-06-06 18:39 | PCM.HP.STD ---
Documented by User: Olga Lidia Alvarado NP, [employer]ANT-C 06/06/21 18:49 HPI - General HPI Narrative KENDALL RENAE, is a 35 F who presents to the emergency room due to chest pain. Patient reports pain began today. Patient reports constant pain on the left side of her chest under her breast into the left rib area. She reports worsening pain with taking a deep breath or coughing. She denies shortness of breath. Reports associated nausea. Denies recent illness or other associated symptoms or complaints. Denies worsening pain with exertion. Pain currently 4 out of 10 following pain medication in the emergency room. She denies any cardiac history. She has a past medical history of depression/anxiety, chronic kidney disease stage II, history of kidney stones, asthma. [facility] Medical History (Updated 06/06/21 @ 18:45 by Olga Lidia Alvarado NP, [employer] CONS[employer]ANT-C) Asthma Hypertension Kidney disease Home Medications albuterol sulfate [Ventolin HFA] 1 - 2 puff INHALATION Q6H PRN PRN 03/22/13 [History Last Taken 05/24/14 08:49] albuterol sulfate 2.5 mg INHALATION Q6HWA.RT PRN 02/28/20 [History Last Taken Unknown] promethazine 25 mg PO QHS PRN 02/28/20 [History Last Taken 05/30/21] hydrocodone-acetaminophen 1 tab PO Q6H PRN 3 Days #12 tab 10/23/20 [Rx Last Taken 06/01/21] trazodone 150 mg PO/SL DAILY 12/31/20 [History Last Taken 06/05/21] ondansetron 4 mg PO Q8H PRN #10 tab 04/17/21 [Rx Last Taken 06/06/21] lorazepam 0.5 mg PO DAILY PRN PRN 06/06/21 [History Last Taken Unknown] sertraline 100 mg PO DAILY 06/06/21 [History Last Taken 06/06/21] tizanidine 2 mg PO DAILY 06/06/21 [History Last Taken Unknown] Allergy/AdvReac Type Severity Reaction Status Date / Time codeine Allergy Hives Verified 06/06/21 14:24 metronidazole [From Flagyl] Allergy Shortness Verified 06/06/21 14:24 of breath shellfish derived Allergy Angioedema Verified 06/06/21 14:24 topiramate [From Topamax] Allergy Other Verified 06/06/21 14:24 adhesive AdvReac Rash Verified 06/06/21 14:24 NSAIDS (Non-Steroidal AdvReac PT UNSURE Verified 06/06/21 14:24 Anti-Inflamma OF REACTION Family History (Updated 06/06/21 @ 18:42 by Olga Lidia Alvarado NP, [employer] CONS[employer]ANT-C) Father No cardiac disease Mother No cardiac disease Surgical History (Updated 06/06/21 @ 18:45 by Olga Lidia Alvarado NP, [employer] CONSULTANT-C) Previous section S/P breast lumpectomy S/P tonsillectomy Social History (Updated 06/06/21 @ 18:45 by Olga Lidia Alvarado NP, [employer] CONSULTANT-C) household members: spouse Smoking Status: Never smoker alcohol intake: never substance use type: does not use ROS Constitutional Constitutional: Denies change in weight, chills, fatigue, fever(s) or weakness Cardiovascular Cardiovascular: Reports chest pain; Denies edema, lightheadedness, palpitations or syncope Respiratory/Chest Respiratory/Chest: Denies cough, dyspnea, productive cough, shortness of breath at rest, shortness of breath with exertion or wheezing Gastrointestinal Gastrointestinal: Reports nausea; Denies abdominal pain, constipation, diarrhea or vomiting Genitourinary Genitourinary: Denies burning urination, difficulty urinating, dysuria, hematuria, urinary frequency, urinary incontinence or urinary urgency Musculoskeletal Musculoskeletal: Denies back pain, joint pain or muscle weakness Integumentary Integumentary: Denies erythema, lesions, rash or wounds Neurologic Neurologic: Denies abnormal speech, confusion, dizziness, focal weakness, numbness, paresthesias, seizure-like activity or syncope Psychiatric Psychiatric: Denies anxiety or depression Hematologic/Lymphatic Hematologic/Lymphatic: Denies anemia, easy bleeding or easy bruising Allergic/Immunologic Allergic/Immunologic: Denies hives or asthma Vital Signs Vital Signs Vital Signs: 06/06/21 14:19 06/06/21 14:25 06/06/21 16:35 Temperature 98.8 F Temperature Source Temporal Pulse Rate 97 94 Respiratory Rate 20 H 18 Respiratory Effort Short of Breath Blood Pressure 106/76 Blood Pressure Mean 86 Pulse Ox 100 98 Oxygen Delivery Method Room Air Room Air 06/06/21 16:52 06/06/21 17:32 Temperature Temperature Source Pulse Rate 64 Respiratory Rate 18 Respiratory Effort Blood Pressure 125/98 H 116/85 H Blood Pressure Mean 107 95 Pulse Ox Oxygen Delivery Method Weight Weight: 140 lb 14.006 oz Body Mass Index (BMI) 24.1 Physical Exam Const alert, oriented x3 and no apparent distress Orientation / Consciousness: awake, oriented to person, oriented to place and oriented to time HEENT normocephalic and moist oral mucous membranes Eyes PERRL, EOMs intact bilaterally and conjunctivae normal Neck no lymphadenopathy Resp normal respiratory effort and clear to auscultation bilaterally Cardio regular rate, regular rhythm and no murmurs Peripheral Pulses: pulses 2+ throughout GI normal to inspection, nondistended, normoactive bowel sounds, non-tender and non-distended Extremity normal to inspection Skin no rashes or lesions noted Lesions: no lesions Rashes: no rashes Trauma: no lacerations or abrasions Neuro CN's II-XII intact bilaterally, no focal motor deficits, no sensory deficits noted and deep tendon reflexes 2+ bilaterally Psych mental status grossly normal and affect normal Results Lab / Micro Data Result Diagrams: 06/06/21 14:28 06/06/21 14:28 Labs: Laboratory Results - last 24 hr 06/06/21 14:28: WBC 7.4, RBC 3.98 L, Hgb 11.9 L, Hct 37.2, MCV 93.5, MCH 29.9, MCHC 32.0, RDW Std Deviation 44.3 H, RDW Coeff of [place] 12.9, Plt Count 231, MPV 10.5, Immature Gran % (Auto) 0.400, Neut % (Auto) 58.2, Lymph % (Auto) 32.0, [place] % (Auto) 6.9, Eos % (Auto) 1.8, Baso % (Auto) 0.7, Absolute Neuts (auto) 4.3, Absolute Lymphs (auto) 2.37, Nucleated RBC % 0, ESR 10 06/06/21 14:28: Sodium 141, Potassium 4.2, Chloride 109 H, Carbon Dioxide 25.0, Anion Gap 7, BUN 15, Creatinine 0.98, Estim Creat Clear Calc 69.85, Est GFR (MDRD) Af Amer 84, Est GFR (MDRD) Non-Af 69, BUN/Creatinine Ratio 15.4, Glucose 93, Calcium 9.4, Total Bilirubin 0.30, AST 14 L, ALT 23, Alkaline Phosphatase 74, Total Protein 7.2, Albumin 3.6, Globulin 3.6, Albumin/Globulin Ratio 1.0, Lipase 136 06/06/21 14:28: D-Dimer Quant (PE/DVT) < 0.27 L 06/06/21 14:28: Troponin I High Sens < 3 L 06/06/21 14:28: PT 13.0, INR 1.0, APTT 29.6 06/06/21 15:00: Urine Color Yellow, Urine Clarity Clear, Urine pH 7.0, Ur Specific [place] 1.015, Urine Protein Negative, Urine Glucose (UA) Normal, Urine Ketones Negative, Urine Occult Blood Negative, Urine Nitrite Negative, Urine Bilirubin Negative, Urine Urobilinogen Normal, Ur Leukocyte Esterase Negative, Urine RBC 0 SEEN, Urine WBC 0-5 SEEN, Ur Squamous Epith Cells 0-5 SEEN, Urine Bacteria 0 SEEN, Urine Mucus 0 SEEN, Urine Test Negative 06/06/21 16:30: Troponin I High Sens < 3 L Micro: Microbiology 06/06/21 16:45 Nasal Secretion SARS-CoV-2 Antigen (Rapid) - Final Radiology Impression Chest X-Ray 06/06/21 15:00 IMPRESSION: No radiographic evidence of acute cardiopulmonary disease. Electronically Signed: Valeriy Campuzano MD at 15:38 EDT , Chest/Abdomen/Pelvis CTA 06/06/21 15:26 IMPRESSION: No evidence for aortic dissection, aortic aneurysm, or pulmonary embolism. Small left ovarian cyst. Trace free fluid in the pelvis. Individualized dose optimization techniques were used for this CT. at 1653 Reported and signed by: Theresa Bowden MD Electronically Signed: Theresa Bowden MD at 16:52 EDT , Venous Doppler Study 06/06/21 15:26 Interpretation Summary No evidence for acute deep venous thrombosis bilateral lower extremities with patent and compressible bilateral great saphenous veins. Ordering Physician: Galen Mendoza Performed By: Stevo Fonseca RVT Assessment & Plan Assessment/Plan (1) Chest pain: PLAN: 1. Chest pain, likely pleuritic-EKG without acute ST-T changes. Troponin negative. Trend enzymes. Plan for echo in a.m. CTA unremarkable. 2. Depression/anxiety-on sertraline, trazodone. 3. Chronic kidney disease stage II- following with nephrology. 4. History of kidney stones 5. Asthma-no exacerbation. DVT prophylaxis-not indicated, low risk This patient was seen by Olga Lidia Alvarado NP-C under the supervision of Dr. Madden. Time spent examining patient, reviewing data and subsequent management of care: 16 minutes Documented by User: Dr. Rey Madden DO 06/06/21 19:19 HPI - General General Date of Admission: 06/06/21 [facility] Medical History (Updated 06/06/21 @ 18:45 by Olga Lidia Alvarado NP, [employer] CONSULTANT-C) Asthma Hypertension Kidney disease Home Medications albuterol sulfate [Ventolin HFA] 1 - 2 puff INHALATION Q6H PRN PRN 03/22/13 [History Last Taken 05/24/14 08:49] albuterol sulfate 2.5 mg INHALATION Q6HWA.RT PRN 02/28/20 [History Last Taken Unknown] promethazine 25 mg PO QHS PRN 02/28/20 [History Last Taken 05/30/21] hydrocodone-acetaminophen 1 tab PO Q6H PRN 3 Days #12 tab 10/23/20 [Rx Last Taken 06/01/21] trazodone 150 mg PO/SL DAILY 12/31/20 [History Last Taken 06/05/21] ondansetron 4 mg PO Q8H PRN #10 tab 04/17/21 [Rx Last Taken 06/06/21] lorazepam 0.5 mg PO DAILY PRN PRN 06/06/21 [History Last Taken Unknown] sertraline 100 mg PO DAILY 06/06/21 [History Last Taken 06/06/21] tizanidine 2 mg PO DAILY 06/06/21 [History Last Taken Unknown] Allergy/AdvReac Type Severity Reaction Status Date / Time codeine Allergy Hives Verified 06/06/21 14:24 metronidazole [From Flagyl] Allergy Shortness Verified 06/06/21 14:24 of breath shellfish derived Allergy Angioedema Verified 06/06/21 14:24 topiramate [From Topamax] Allergy Other Verified 06/06/21 14:24 adhesive AdvReac Rash Verified 06/06/21 14:24 NSAIDS (Non-Steroidal AdvReac PT UNSURE Verified 06/06/21 14:24 Anti-Inflamma OF REACTION Family History (Updated 06/06/21 @ 18:42 by Olga Lidia Alvarado NP, [employer] CONSULTANT-C) Father No cardiac disease Mother No cardiac disease Surgical History (Updated 06/06/21 @ 18:45 by Olga Lidia Alvarado NP, [employer] CONSULTANT-C) Previous section S/P breast lumpectomy S/P tonsillectomy Social History (Updated 06/06/21 @ 18:45 by Olga Lidia Alvarado [employer] SECURITY CONSULTANT, [employer] CONSULTANT-C) household members: spouse Smoking Status: Never smoker alcohol intake: never substance use type: does not use Results Lab / Micro Data Result Diagrams: 06/06/21 14:28 06/06/21 14:28 Charges/Coding Addendum Addendum: Patient was seen and examined dependently of Olga Lidia Alvarado, she came to the emergency room today at [facility] with complaints of left-sided chest pain which she described as sharp in nature, chest pain started approximately 1 PM today and started while she was at rest. She has some radiation into her mid upper back area, she states the pain is worse when she coughs or takes in a deep breath, it is not worse when she moves or walks. On examination she appeared in good health and spirits, she does not appear to be in any distress. Vital signs as documented. Skin warm and dry and without overt rashes. Neck without JVD, thyroid appears normal, trachea is midline, neck is supple. Lungs clear, normal air movement was noted. Heart exam notable for regular rhythm, normal sounds and absence of murmurs, rubs or gallops. Abdomen unremarkable and without evidence of organomegaly, masses, or abdominal aortic enlargement, bowel sounds are present in all 4 quadrants, no abdominal tenderness was noted. Extremities nonedematous, no cyanosis was noted, no clubbing was noted. Neuro: Cranial nerves II through XII are grossly intact, no focal motor deficits were noted, sensation to light touch and pinprick is intact, motor exam 5/5 throughout. Psych: Patient is alert and oriented x3, she does not appear anxious or depressed, she does not appear agitated. Work-up in the emergency room included 2 EKGs both which did not show any ischemic changes, patient's troponin x2 was unremarkable, patient underwent a CTA of her chest to rule out aortic dissection and PE-the CTA of her chest was unremarkable. Patient was given a large amount of narcotics in the emergency room without any obvious effect on the patient's mentation, at the time of my examination, she states the chest discomfort was a 3 out of 10 in severity. On my examination, I was not able to reproduce any chest discomfort on palpation of the chest. Impression: #1 chest pain-doubt cardiac in nature, most likely musculoskeletal or pleuritic in nature, patient will be placed in observation status on PCU, serial cardiac enzymes will be obtained as well as an echocardiogram, patient will be given IV narcotics for pain, she has a history of chronic kidney disease stage II and has not able to take anti-inflammatory agents unless she talks to her patient observer about this. #2 chronic kidney disease stage II-patient sees a patient observer as an outpatient, she does not take any medications, again she states that she has not allowed to take nonsteroidal anti-inflammatory medications without conferring with her patient observer. #3 chronic depression-patient is on Zoloft and trazodone, these will be continued here I have reviewed Olga Lidia Alvarado's history and physical including her medical assessment and plan of care and with the above additions endorse it. Total clinical time spent by myself addressing the patient's medical issues, reviewing the patient's medical record, and collaborating with the patient's care team: 54 minutes Visit Charges OBSV E&M: 50011 Initial observation care L3
--- NOTE | 2021-06-06 18:54 | ECHOD_ITS ---
Reason For Study: CHEST PAINS Procedure This was a 2D Doppler, Color Flow transthoracic echocardiogram. Exam performed portable in patient room. Left Ventricle Normal left ventricle. The estimated ejection fraction is 55-60 %. Right Ventricle Normal right ventricle. Atria Normal left atrium. Normal right atrium. Patent foramen ovale. Aortic Valve Normal aortic valve. Pulmonic Valve The pulmonic valve is not well visualized. Great Vessels Normal aortic root. Pericardium/Pleural No pericardial effusion. MMode/2D Measurements & Calculations LVIDd: 4.1 cm IVSd: 0.73 cm LVOT diam: 2.0 cm LVIDs: 2.9 cm LVPWd: 0.82 cm LVOT area: 3.2 cm2 RVDd: 3.5 cm FS: 30.5 % Ao root diam: 2.7 cm LAV(MOD-sp4): 43.5 ml LVAd ap4: 25.0 cm2 LVLd ap4: 8.1 cm EDV(MOD-sp4): 65.6 ml EDV(sp4-el): 65.5 ml LVAs ap4: 13.4 cm2 LVLs ap4: 6.1 cm ESV(MOD-sp4): 24.4 ml ESV(sp4-el): 25.0 ml EF(MOD-sp4): 62.8 % EF(sp4-el): 61.8 % SV(MOD-sp4): 41.2 ml SV(MOD-sp2): 40.9 ml LVAd ap2: 23.2 cm2 LVLd ap2: 7.2 cm EDV(MOD-sp2): 60.8 ml EDV(sp2-el): 63.9 ml LVAs ap2: 12.5 cm2 LVLs ap2: 6.4 cm ESV(MOD-sp2): 19.9 ml ESV(sp2-el): 20.8 ml EF(MOD-sp2): 67.2 % SV(sp4-el): 40.5 ml LA dimension(2D): 3.0 cm RA A4 area: 11.6 cm2 Doppler Measurements & Calculations MV E max esteban: 85.4 cm/sec Lat Peak E' Esteban: 17.1 cm/sec Med Peak E' Esteban: 13.3 cm/sec MV A max esteban: 68.4 cm/sec E/E' lat: 5.0 E/E' med: 6.4 MV E/A: 1.2 Ao V2 max: 120.2 cm/sec LV V1 max: 92.8 cm/sec PA V2 max: 96.5 cm/sec Ao max P.8 mmHg LV V1 max P.4 mmHg PAIGE(V,D): 2.5 cm2 ECHO/Echo Complete Interpretation Summary The estimated ejection fraction is 55-60 %. PFO-color flow across IAS Ordering Physician: Rey Madden Referring Physician: NO PCP NOTED Performed By: Vickie Pineda RCS
--- NOTE | 2021-06-06 20:42 | EKG12_ITS ---
Test Reason : CP ADMIN Blood Pressure : / mmHG Vent. Rate : 060 BPM Atrial Rate : 060 BPM P-R Int : 126 ms QRS Dur : 076 ms QT Int : 436 ms P-R-T Axes : 048 073 059 degrees QTc Int : 436 ms Normal sinus rhythm Normal ECG Confirmed by JACEK COFFEY, OSNAL ([id number]), editor publications MESHA FREEMAN ([id number]) on 06/10/2021 11:39:26 AM Referred By: MARIANNE Confirmed By:SONAL READ MD
[2021-06-06] MEDS: 0.9% Saline Lock 10 ML Syringe IV (21:04)
[2021-06-06 21:17] LABS: Troponin-I HS 3 pg/mL (3.0-54.0)
[2021-06-06] MEDS: traZODone 100 MG Tablet PO (22:49)
[2021-06-06] MEDS: 0.9% Normal Saline 1,000 ML 100 ML IV (23:47)
[2021-06-07 02:33] VITALS: BP 101/62; PULSE 73; RESP 18; TEMP 36.3; O2SAT 100
[2021-06-07] MEDS: Morphine 4 MG/ML Syringe IV ×2 (02:38→08:19)
[2021-06-07] MEDS: Ondansetron 4 MG/2 ML Vial IV ×3 (02:39→13:45)
[2021-06-07 03:10] VITALS: PULSE 69
[2021-06-07 07:04] VITALS: PULSE 62
[2021-06-07 08:09] VITALS: BP 105/64; PULSE 89; RESP 12; TEMP 36.9; O2SAT 97
[2021-06-07] MEDS: Sertraline 100 MG Tablet PO (08:19)
[2021-06-07 11:16] LABS: CRP < 2.90 mg/L (0.0-3.0)
[2021-06-07] MEDS: 0.9% Normal Saline 1,000 ML 100 ML IV (11:19)
[2021-06-07] MEDS: Acetaminophen 325 MG Tablet 650 MG PO (11:26)
[2021-06-07] MEDS: proMETHazine 25 MG Tablet 12.5 MG PO (11:53)
[2021-06-07] MEDS: dexAMETHasone 10 MG/ML Vial IV (11:53)
--- NOTE | 2021-06-07 12:18 | CASEMGMT ---
Social Work SW received referral from MARTINE Duggan that pt lost child at 24 weeks about 5 months ago. SW met with pt and introduced self and role of SW. Pt lying in bed and willing to speak with SW. Pt openly engaged in conversation regarding loss of baby. SW provided emotional support. Pt is currently seeing a therapist monthly and is connected with the [id number] program where she has connected with other mothers going through similar situations. Pt states her and family are supportive and her steve is important to her. SW provided information on the [facility] bereavement program and additional counseling resources. Pt appreciative. No further SW needs. ELIAS Self
--- NOTE | 2021-06-07 12:48 | PCM.DC ---
Discharge Instructions Diet Discharge Diet: No restrictions Activity Discharge Activity: Return to Normal Activity Dressing / Incision Call your doctor if you observe: Shortness of breath, Dizziness and Chest pain Follow Up Care Test Results: Test results from this visit will be discussed in further detail at your follow-up appointment, if applicable. Discharge Plan Admission Admit Date/Time: 06/06/21 18:39 Primary Reason for Your Visit: chest pain Attending Provider: Andrea Madrigal Discharge Orders/Prescriptions Prescriptions: Continued albuterol sulfate [Ventolin HFA] 1 INHALER inhaler 1 - 2 puff inhalation Q6H PRN PRN (Reason: Asthma) RF: 0 albuterol sulfate 2.5 MG/3 ML solution for nebulization 2.5 mg INHALATION Q6HWA.RT PRN (Reason: Asthma) RF: 0 promethazine 25 MG tablet 25 mg PO QHS PRN (Reason: Nausea) RF: 0 trazodone 150 mg PO/SL DAILY RF: 0 ondansetron 4 mg tablet,disintegrating 4 mg PO Q8H PRN (Reason: nausea and vomiting) Qty: 10 RF: 0 sertraline 100 mg tablet 100 mg PO DAILY RF: 0 lorazepam 0.5 mg Tablet 0.5 mg PO DAILY PRN PRN (Reason: Anxiety) RF: 0 tizanidine 2 mg Capsule 2 mg PO DAILY RF: 0 hydrocodone-acetaminophen 5-325 mg tablet 1 tab PO Q6H PRN (Reason: pain) 3 Days Qty: 12 RF: 0 Referrals / Follow Up: BALBIR SANDERSON [Other] - In 1 Week Disposition Disposition (needs filled in before D/C Order can be placed): Home, Self Care
--- NOTE | 2021-06-07 12:49 | DS.PCM_ITS ---
Documented by User: Olga Lidia Alvarado NP, FOOTWEAR PRODUCTION MACHINE OPERATOR-C 06/07/21 13:23 Providers Date of Admission: 06/06/21 Date of Discharge: 06/07/21 Primary Care Physician: BALBIR SANDERSON Reason For Visit: chest pain Diagnosis Discharge Diagnosis (1) Chest pain: Status: Acute Code(s): R07.9 - Chest pain, unspecified Medications at Discharge Home Medications albuterol sulfate [Ventolin HFA] 1 - 2 puff INHALATION Q6H PRN PRN 03/22/13 albuterol sulfate 2.5 mg INHALATION Q6HWA.RT PRN 02/28/20 promethazine 25 mg PO QHS PRN 02/28/20 trazodone 150 mg PO/SL DAILY 12/31/20 ondansetron 4 mg PO Q8H PRN #10 tab 04/17/21 lorazepam 0.5 mg PO DAILY PRN PRN 06/06/21 sertraline 100 mg PO DAILY 06/06/21 tizanidine 2 mg PO DAILY 06/06/21 hydrocodone-acetaminophen 1 tab PO Q6H PRN 3 Days #12 tab 06/07/21 Hospital Course Operations None Procedures 2-D Echocardiogram Summary of Care Provided Hospital Course: Patient is a 35-year-old female admitted 06/06/2021 due to chest pain. 1. Noncardiac chest pain, likely pleuritic versus musculoskeletal-EKG without acute ST-T changes. Troponin negative. ESR/CRP normal. CTA without PE or dissection. Echocardiogram demonstrates an EF of 55 to 60%. PFO present. Follow up with PCP. Patient did not want to try NSAIDs for pain on account of her underlying CKD. 2. Depression/anxiety-on sertraline, trazodone. Follows with therapy as well. 3. Chronic kidney disease stage II- following with nephrology. 4. History of kidney stones 5. Asthma-no exacerbation. Physical Exam Const alert, oriented x3 and no apparent distress Orientation / Consciousness: awake, oriented to person, oriented to place and oriented to time HEENT normocephalic and moist oral mucous membranes Eyes PERRL, EOMs intact bilaterally and conjunctivae normal Neck no lymphadenopathy Resp normal respiratory effort and clear to auscultation bilaterally Cardio regular rate, regular rhythm and no murmurs Peripheral Pulses: pulses 2+ throughout GI normal to inspection, nondistended, normoactive bowel sounds, non-tender and non-distended Extremity normal to inspection Skin no rashes or lesions noted Lesions: no lesions Rashes: no rashes Trauma: no lacerations or abrasions Neuro CN's II-XII intact bilaterally, no focal motor deficits, no sensory deficits noted and deep tendon reflexes 2+ bilaterally Psych mental status grossly normal and affect normal Patient seen and examined prior to discharge. Physical assessment as noted above. Patient is stable for discharge with follow up recommendations as noted above. This patient was seen by MARLENE Gardiner under the supervision of Dr. Madrigal. Time spent examining patient, reviewing data and subsequent management of care: 15 minutes Weight / BMI Weight Weight: 135 lb 9.349 oz Body Mass Index (BMI) 23.1 ABG / Lab / Microbiology Data Result Diagrams: 06/06/21 14:28 06/06/21 14:28 Laboratory: Laboratory Results - last 24 hr 06/06/21 14:28: WBC 7.4, RBC 3.98 L, Hgb 11.9 L, Hct 37.2, MCV 93.5, MCH 29.9, MCHC 32.0, RDW Std Deviation 44.3 H, RDW Coeff of [place] 12.9, Plt Count 231, MPV 10.5, Immature Gran % (Auto) 0.400, Neut % (Auto) 58.2, Lymph % (Auto) 32.0, [place] % (Auto) 6.9, Eos % (Auto) 1.8, Baso % (Auto) 0.7, Absolute Neuts (auto) 4.3, Absolute Lymphs (auto) 2.37, Nucleated RBC % 0, ESR 10 06/06/21 14:28: Sodium 141, Potassium 4.2, Chloride 109 H, Carbon Dioxide 25.0, Anion Gap 7, BUN 15, Creatinine 0.98, Estim Creat Clear Calc 69.85, Est GFR (MDRD) Af Amer 84, Est GFR (MDRD) Non-Af 69, BUN/Creatinine Ratio 15.4, Glucose 93, Calcium 9.4, Total Bilirubin 0.30, AST 14 L, ALT 23, Alkaline Phosphatase 74, Total Protein 7.2, Albumin 3.6, Globulin 3.6, Albumin/Globulin Ratio 1.0, Lipase 136 06/06/21 14:28: D-Dimer Quant (PE/DVT) < 0.27 L 06/06/21 14:28: Troponin I High Sens < 3 L 06/06/21 14:28: PT 13.0, INR 1.0, APTT 29.6 06/06/21 15:00: Urine Color Yellow, Urine Clarity Clear, Urine pH 7.0, Ur Specific [place] 1.015, Urine Protein Negative, Urine Glucose (UA) Normal, Urine Ketones Negative, Urine Occult Blood Negative, Urine Nitrite Negative, Urine Bilirubin Negative, Urine Urobilinogen Normal, Ur Leukocyte Esterase Negative, Urine RBC 0 SEEN, Urine WBC 0-5 SEEN, Ur Squamous Epith Cells 0-5 SEEN, Urine Bacteria 0 SEEN, Urine Mucus 0 SEEN, Urine Test Negative 06/06/21 16:30: Troponin I High Sens < 3 L 06/06/21 20:40: Troponin I High Sens 3 06/06/21 20:40: C-React Prot Ext Range < 2.90 06/07/21 11:00: ESR Cancelled Microbiology: Microbiology 06/06/21 16:45 Nasal Secretion SARS-CoV-2 Antigen (Rapid) - Final Radiography Diagnostic Testing: Radiology Impression Chest X-Ray 06/06/21 15:00 IMPRESSION: No radiographic evidence of acute cardiopulmonary disease. Electronically Signed: Valeriy Campuzano MD at 15:38 EDT , Chest/Abdomen/Pelvis CTA 06/06/21 15:26 IMPRESSION: No evidence for aortic dissection, aortic aneurysm, or pulmonary embolism. Small left ovarian cyst. Trace free fluid in the pelvis. Individualized dose optimization techniques were used for this CT. at 1653 Reported and signed by: Theresa Bowden MD Electronically Signed: Theresa Bowden MD at 16:52 EDT , Venous Doppler Study 06/06/21 15:26 Interpretation Summary No evidence for acute deep venous thrombosis bilateral lower extremities with patent and compressible bilateral great saphenous veins. Ordering Physician: Galen Mendoza Performed By: Stevo Fonseca RVT Echocardiogram 06/06/21 18:54 Interpretation Summary The estimated ejection fraction is 55-60 %. PFO-color flow across IAS Ordering Physician: Rey Madden Referring Physician: NO PCP NOTED Performed By: Vickie Pineda RCS D/C Instructions Discharge Diet: No restrictions Call your doctor if you observe: Shortness of breath, Dizziness and Chest pain Meaningful Use Info Meaningful Use Diagnoses (Choose all that apply): None applicable Discharge Plan Admission Admit Date/Time: 06/06/21 18:39 Primary Reason for Your Visit: chest pain Attending Provider: Andrea Madrigal Instructions Forms: Work / School Excuse Discharge Orders/Prescriptions Prescriptions: Continued albuterol sulfate [Ventolin HFA] 1 INHALER inhaler 1 - 2 puff inhalation Q6H PRN PRN (Reason: Asthma) RF: 0 albuterol sulfate 2.5 MG/3 ML solution for nebulization 2.5 mg INHALATION Q6HWA.RT PRN (Reason: Asthma) RF: 0 promethazine 25 MG tablet 25 mg PO QHS PRN (Reason: Nausea) RF: 0 trazodone 150 mg PO/SL DAILY RF: 0 ondansetron 4 mg tablet,disintegrating 4 mg PO Q8H PRN (Reason: nausea and vomiting) Qty: 10 RF: 0 sertraline 100 mg tablet 100 mg PO DAILY RF: 0 lorazepam 0.5 mg Tablet 0.5 mg PO DAILY PRN PRN (Reason: Anxiety) RF: 0 tizanidine 2 mg Capsule 2 mg PO DAILY RF: 0 hydrocodone-acetaminophen 5-325 mg tablet 1 tab PO Q6H PRN (Reason: pain) 3 Days Qty: 12 RF: 0 Referrals / Follow Up: BALBIR SANDERSON [Other] - 06/12/21 11:00 am Disposition Disposition (needs filled in before D/C Order can be placed): Home, Self Care Documented by User: Dr. Andrea Madrigal MD 06/07/21 15:24 Providers Date of Admission: 06/06/21 Reason For Visit: chest pain Medications at Discharge Home Medications albuterol sulfate [Ventolin HFA] 1 - 2 puff INHALATION Q6H PRN PRN 03/22/13 albuterol sulfate 2.5 mg INHALATION Q6HWA.RT PRN 02/28/20 promethazine 25 mg PO QHS PRN 02/28/20 trazodone 150 mg PO/SL DAILY 12/31/20 ondansetron 4 mg PO Q8H PRN #10 tab 04/17/21 lorazepam 0.5 mg PO DAILY PRN PRN 06/06/21 sertraline 100 mg PO DAILY 06/06/21 tizanidine 2 mg PO DAILY 06/06/21 hydrocodone-acetaminophen 1 tab PO Q6H PRN 3 Days #12 tab 06/07/21 Hospital Course Summary of Care Provided Hospital Course: This patient was seen in conjunction with FOOTWEAR PRODUCTION MACHINE OPERATOROlga Lidia. I have independently interviewed and examined the patient and reviewed pertinent history, examination findings, laboratory and plan of management. I have reviewed the note and agree with the documented findings with the few additional points. In brief, patient is admitted for left-sided chest pain pleuritic nature mainly on deep coughing or aspiration. CTA negative for PE or dissection. Patient was admitted to PCU troponins normal. EKG does not show significant ischemic changes. 2D echo was done EF 55 to 60% with a small PFO. Patient does not want to try NSAID because of CKD stage II. I tried to convince her that she can take ibuprofen 400 mg every 8 hours as needed for 3 days but she says she was told not to take NSAID and can only take Tylenol. Other comorbidities include CKD stage II, anxiety and depression, depression, history of kidney stones and chronic intermittent asthma. No exacerbation Discharge medication reconciliation done. Discharge follow-up instructions completed. Discharge process discussed with the patient and all questions were answered to patient's satisfaction. Discharged home Total time spent, exact 35 minutes on discharge meds reconciliation, examination, coordination of care with nurses and ancillary staff, review of imaging and blood test and discussion with the patient on follow-up instructions. I have discussed my assessment with FOOTWEAR PRODUCTION MACHINE OPERATOROlga Lidia and orders have been reviewed. Physical Exam Narrative Seen and examined. Patient has pleuritic chest pain mainly on coughing and deep inspiration. Chest pain is mainly left-sided. She knows that. She also has miscarriage about 5 months ago and has depression Physical exam General: Alert, Oriented x3, Cooperative HEENT: Atraumatic, PERRLA, EOMI, Normocephalic Oral: No Gingival or Mucosal Lesions/ Ulcerations Neck: Supple, No JVD, Negative Carotid Bruits Lungs: Air entry diminished in bilateral lung bases. No crepitation/rhonchi Cardiovascular: Regular rate, Regular Rhythm, Normal S1, Normal S2, No murmurs Abdomen: Bowel Sounds Present, Soft, Non Tender, Non-Distended : No renal angle tenderness. No suprapubic tenderness. Extremities: No edema, Capillary Refill Less than 3 Seconds Skin: No rashes, No breakdown Musculoskeletal: No Tenderness to Palpation of Joints or Extremities Neurological: Cranial nerves II-XII grossly intact, DTR 2+/4 and Symmetrical, Neuro grossly intact Psych/Mental Status: Flat affect. ABG / Lab / Microbiology Data Result Diagrams: 06/06/21 14:28 06/06/21 14:28 Discharge Plan Admission Admit Date/Time: 06/06/21 18:39 Primary Reason for Your Visit: chest pain Attending Provider: Andrea Madrigal Instructions Forms: Work / School Excuse Discharge Orders/Prescriptions Prescriptions: Continued albuterol sulfate [Ventolin HFA] 1 INHALER inhaler 1 - 2 puff inhalation Q6H PRN PRN (Reason: Asthma) RF: 0 albuterol sulfate 2.5 MG/3 ML solution for nebulization 2.5 mg INHALATION Q6HWA.RT PRN (Reason: Asthma) RF: 0 promethazine 25 MG tablet 25 mg PO QHS PRN (Reason: Nausea) RF: 0 trazodone 150 mg PO/SL DAILY RF: 0 ondansetron 4 mg tablet,disintegrating 4 mg PO Q8H PRN (Reason: nausea and vomiting) Qty: 10 RF: 0 sertraline 100 mg tablet 100 mg PO DAILY RF: 0 lorazepam 0.5 mg Tablet 0.5 mg PO DAILY PRN PRN (Reason: Anxiety) RF: 0 tizanidine 2 mg Capsule 2 mg PO DAILY RF: 0 hydrocodone-acetaminophen 5-325 mg tablet 1 tab PO Q6H PRN (Reason: pain) 3 Days Qty: 12 RF: 0 Referrals / Follow Up: BALBIR SANDERSON [Other] - 06/12/21 11:00 am Disposition Disposition (needs filled in before D/C Order can be placed): Home, Self Care Charges/Coding Visit Charges OBSV E&M: 05173 Observation care discharge
[2021-06-07 13:38] VITALS: BP 102/67; PULSE 70; RESP 12; TEMP 36.8; O2SAT 95
--- NOTE | 2021-06-07 14:12 | PHA.DC.MR ---
Pharmacy Service has performed discharge medication reconciliation for this patient. The patient's discharge medication list was reviewed for discrepancies and discrepancies were resolved. Home Medications albuterol sulfate [Ventolin HFA] 1 - 2 puff INHALATION Q6H PRN PRN 03/22/13 albuterol sulfate 2.5 mg INHALATION Q6HWA.RT PRN 02/28/20 promethazine 25 mg PO QHS PRN 02/28/20 trazodone 150 mg PO/SL DAILY 12/31/20 ondansetron 4 mg PO Q8H PRN #10 tab 04/17/21 lorazepam 0.5 mg PO DAILY PRN PRN 06/06/21 sertraline 100 mg PO DAILY 06/06/21 tizanidine 2 mg PO DAILY 06/06/21 hydrocodone-acetaminophen 1 tab PO Q6H PRN 3 Days #12 tab 06/07/21
--- NOTE | 2021-06-07 14:20 | CHAPLAIN ---
Type of Pastoral Visit _x__ Initial Visit ___ Follow-up Visit ___ On-call Visit ___ General Patient Visit ___ Spiritual Assessment ___ Family Conference ___ Bereavement ___ Rapid Response ___ Code Blue ___ Other (describe below) Pastoral Care Referral From _x__ Patient ___ Family ___ Nurse ___ Physician ___ Proposal Rep ___ Cocktail Server ___ Other (describe below) Sacrament/Intervention _x__ Active listening ___ Anointing ___ Denominational _x__ Bereavement ___ Communion ___ Georgie exploration ___ ___ Life review _x__ Prayer ___ Reconciliation ___ Sacrament of Sick _x__ Supportive presence ___ Wedding ___ Other (describe below) Pastoral Comments patient speaks of her physical need and how it relates to her bereavement at in premature baby; pt acknowledges need and also how she is receiving support from her georgie and the [employer] program; pt welcomes spiritual care support and prayer
== END 2021-06-07 12:49 | disposition home or self-care (01) ==
LOC: ED 15:03 → PCU 06-07 06:59
PROVIDERS: Nurse Practitioner; Nurse Practitioner Family; Admitting Provider Internal Medicine; Emergency Provider Emergency Medicine; Visit Provider Internal Medicine
DX: R07.89 Other chest pain (principal); I12.9 Hypertensive chronic kidney disease with stage 1 through stage 4 chronic kidney disease, or unspecified chronic kidney disease; J45.909 Unspecified asthma, uncomplicated; F41.9 Anxiety disorder, unspecified; F32.A Depression, unspecified; N83.202 Unspecified ovarian cyst, left side; N18.2 Chronic kidney disease, stage 2 (mild); R00.1 Bradycardia, unspecified; Z79.899 Other long term (current) drug therapy
CPT/HCPCS: 36415; 71045; 71275; 74174; 80053; 81001; 81025; 83690; 84484; 85025; 85379; 85610; 85652; 85730; 86140; 87811; 93005; 93306; 93970; 96361; 96374; 96375; 96376; 99218; 99285; J7030; Q9967; A4216; G0378; J2405

== ENCOUNTER 2021-08-27 08:36 | Emergency (ER) | payer BC, SELFPAY ==
[2021-08-27 08:37] VITALS: BP 120/83; PULSE 98; RESP 16; TEMP 36.6; O2SAT 98; BMI 22.3
--- NOTE | 2021-08-27 08:48 | CT_ITS ---
STUDY: CT ABDOMEN AND PELVIS WITHOUT CONTRAST REASON FOR EXAM: Female, 35 years old. Abdominal pain. RADIATION DOSAGE (If Supplied By Facility): CTDIvol = ( 6.33 ) mGy, DLP = ( 295.55 ) mGycm TECHNIQUE: Transaxial images were obtained from the dome of the diaphragm to the symphysis pubis without oral contrast, and without intravenous contrast. Sagittal and coronal images were reconstructed. Individualized dose optimization techniques were used for this CT. COMPARISON: Comparison is made with prior study of 04/17/2021. FINDINGS: The visualized lung bases are unremarkable. The visualized portions of the heart are within normal limits. Normal liver. Normal gallbladder and extrahepatic biliary system. Normal spleen. Normal pancreas. Normal bilateral adrenal glands. Normal right kidney. Normal left kidney. Normal visualized stomach. Normal small intestine. Moderate amount of fecal material is seen in the colon more prominent in the right hemicolon. The appendix is visualized and appears normal. Normal abdominal aorta. Normal inferior vena cava. Normal retroperitoneum. Normal urinary bladder. Normal abdominal wall. Normal osseous structures. CT/Abdomen/Pelvis without Cont IMPRESSION: Normal unenhanced CT of the abdomen and pelvis. Moderate amount of fecal material is seen in the colon more prominent in the right hemicolon. Electronically Signed: Gino Morgan MD at 9:51 EDT ,
--- NOTE | 2021-08-27 08:48 | EX.ED.DYSGE1 ---
HPI History of Present Illness Chief Complaint: Flank Pain Detail of Chief Complaint: Right flank pain x2 weeks Informant: patient Narrative Narrative: Patient presents with right flank pain that started 2 weeks ago. Patient states that she has a history of kidney stones and thinks she might be passing a stone. Patient describes intermittent hematuria. Pain is intermittent and currently rates it a 6 out of 10. Patient has history of chronic kidney disease and has stage II chronic kidney disease. 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 Patient states last month she had a UTI and was treated with antibiotics. She denies dysuria currently. She does describe some frequency and intermittent hematuria. She denies fevers or vomiting. Patient states at times the pain radiates underneath her right ribs. Prior similar symptoms: Yes PFSH PFSH Medical History (Updated 08/27/21 @ 10:[address] Sergey Sierra, DO) Anxiety Asthma Depression Hypertension Hypoglycemia Kidney disease Kidney stones Migraines Home Medications albuterol sulfate 90 mcg/actuation aerosol inhaler (Ventolin HFA) 1 - 2 puff inhalation Q6H PRN PRN Asthma 03/22/13 [History Last Taken 05/24/14 08:49] albuterol sulfate 2.5 mg inhalation Q6HWA.RT PRN Asthma 02/28/20 [History Last Taken Unknown] promethazine 25 mg tablet 25 mg PO QHS PRN Nausea 02/28/20 [History Last Taken 05/30/21] trazodone 150 mg PO/SL DAILY 12/31/20 [History Last Taken 06/05/21] ondansetron 4 mg disintegrating tablet 4 mg PO Q8H PRN nausea and vomiting #10 tabs 04/17/21 [Rx Last Taken 06/06/21] lorazepam 0.5 mg tablet 0.5 mg PO DAILY PRN PRN Anxiety 06/06/21 [History Last Taken 05/23/21] sertraline 100 mg tablet 100 mg PO DAILY 06/06/21 [History Last Taken 06/06/21] tizanidine 2 mg capsule 2 mg PO DAILY muscle spasm 06/06/21 [History Last Taken 06/05/21] hydrocodone-acetaminophen 5-325mg 5mg-325mg 1 tab PO Q6H PRN pain 3 days #12 tabs 06/07/21 [Rx Last Taken Unknown] hydrocodone-acetaminophen 5-325mg 5mg-325mg 1 tab PO Q4H PRN PRN Pain 2 days #10 TABLETS 08/27/21 [Rx Last Taken Unknown] Allergy/AdvReac Type Severity Reaction Status Date / Time codeine Allergy Hives Verified 08/27/21 08:37 metronidazole [From Flagyl] Allergy Shortness Verified 08/27/21 08:37 of breath shellfish derived Allergy Angioedema Verified 08/27/21 08:37 topiramate [From Topamax] Allergy Other Verified 08/27/21 08:37 adhesive AdvReac Rash Verified 08/27/21 08:37 NSAIDS (Non-Steroidal AdvReac PT UNSURE Verified 08/27/21 08:37 Anti-Inflamma OF REACTION Family History (Updated 06/06/21 @ 18:42 by Olga Lidia Alvarado NP, QUALITY ASSURANCE/R&D LAB TECHNICIAN-C) Father No cardiac disease Mother No cardiac disease Surgical History Previous section S/P breast lumpectomy S/P tonsillectomy Social History (Updated 06/06/21 @ 18:45 by Olga Lidia Alvarado NP, QUALITY ASSURANCE/R&D LAB TECHNICIAN-C) household members: spouse Smoking Status: Never smoker alcohol intake: never substance use type: does not use ROS ROS ED Review of Systems ROS Unobtainable: other Constitutional Constitutional ED: Reports lethargy; Denies chills, fever(s), sweats or weight loss Eyes Eyes: Denies blurry vision, change in vision or diplopia ENT ENT ED: Denies rhinorrhea or sore throat Cardiovascular Cardiovascular: Reports chest pain and racing heartbeat; Denies orthopnea Respiratory/Chest Respiratory/Chest: Reports dyspnea and dyspnea on exertion; Denies cough, orthopnea or sputum Gastrointestinal Gastrointestinal: Reports abdominal pain and other Details: Flank pain ; Denies diarrhea, nausea or vomiting Genitourinary Genitourinary ED: Reports hematuria; Denies dysuria or urinary frequency Musculoskeletal Musculoskeletal: Denies arthralgias, back pain, myalgias or neck pain Integumentary Denies abscess, Abrasions or rash Neurologic Neurologic: Denies headache(s) or weakness Psychiatric Psychiatric: Denies anxiety, depression or suicidal thoughts Endocrine Endocrinology: Denies polydipsia, polyphagia or polyuria Hematologic/Lymphatic Hematologic/Lymphatic: Denies easy bleeding, easy bruising or lymphadenopathy Allergic/Immunologic Allergic/Immunologic ED: Denies mouth swelling, tongue swelling or urticaria EXAM Physical Exam Const Vital Signs: 08/27/21 08:37 Temperature 98 F Temperature Source Temporal Pulse Rate 98 Respiratory Rate 16 Blood Pressure 120/83 H Blood Pressure Mean 95 Pulse Ox 98 Oxygen Delivery Method Room Air Positive well nourished and well developed General Appearance ED: well developed and NAD HEENT Reports TM's clear and moist mucous membranes normocephalic and atraumatic; Negative for trauma or tenderness Tympanic Membrane ED: Yes TM's clear Eyes PERRL and EOMs intact bilaterally General Eye ED: Negative for pale conjunctiva or scleral icterus Neck no lymphadenopathy, supple and no JVD General: Negative for tenderness Chest Wall inspection of chest normal and palpation of chest normal Chest: Negative for tenderness Resp normal respiratory effort and clear to auscultation bilaterally Effort and Inspection: Negative for respiratory distress or pain with movement Auscultation: Negative for rhonchi, wheezes or diminished lung sounds Cardio regular rate, regular rhythm, S1 normal heart sound, S2 normal heart sound and no murmurs Peripheral Pulses: pulses 2+ throughout GI normal to inspection, nondistended, normoactive bowel sounds, soft to palpation, non-distended and no masses GI Narrative: Patient with tenderness over right upper quadrant some guarding. There is no rebound, rigidity, or peritoneal signs. No tenderness of the right lower quadrant. Back/Spine Back/Spine Narrative: Patient with tenderness palpation over the right CVA that seems to reproduce her pain. Extremity normal to inspection General Extremety ED: Negative for edema General Extremity: Negative for edema Neuro oriented x3, CN's II-XII intact bilaterally, no sensory deficits noted and gait normal Sensorium / Orientation: awake, alert, oriented to person, oriented to place and oriented to time Motor Exam: strength 5/5 throughout and strength abnormal Psych mental status grossly normal Skin no rashes or lesions noted and no wounds MDM MDM MDM Narrative Medical decision making narrative: IV line established on arrival. Patient was medicated with morphine and Zofran. Lab work-up was normal. Urinalysis was negative. Patient had a CT scan of the M pelvis that was unremarkable. At this point etiology of her pain is unclear. Patient does tell me that she had a HIDA scan and ultrasound about 2 years ago that were unremarkable and there was going to be potentially referral to general surgery but then she got never followed up. At this point patient will be discharged to home with referral to general surgery if her pain persists. Patient advised to return if worsening pain, fever, vomiting, or condition should worsen anyway. Lab Data Attestation: I reviewed the patient's lab results. Labs: Laboratory Results - last 24 hr 08/27/21 08/27/21 08/27/21 09:00 09:00 09:00 WBC 5.1 RBC 3.91 L Hgb 11.8 L Hct 37.2 MCV 95.1 MCH 30.2 MCHC 31.7 L RDW Std Deviation 45.6 H RDW Coeff of Sierra 12.9 Plt Count 166 MPV 10.9 Immature Gran % (Auto) 0.200 Neut % (Auto) 54.0 Lymph % (Auto) 36.3 Parker % (Auto) 6.9 Eos % (Auto) 2.0 Baso % (Auto) 0.6 Absolute Neuts (auto) 2.7 Absolute Lymphs (auto) 1.84 Nucleated RBC % 0 Sodium 138 Potassium 4.7 Chloride 110 H Carbon Dioxide 25.0 Anion Gap 3 L BUN 12 Creatinine 0.78 Estim Creat Clear Calc 87.76 Est GFR (MDRD) Af Amer 109 Est GFR (MDRD) Non-Af 90 BUN/Creatinine Ratio 15.4 Glucose 98 Calcium 8.6 Total Bilirubin 0.50 AST 27 ALT 18 Alkaline Phosphatase 62 Total Protein 6.8 Albumin 3.5 Globulin 3.3 Albumin/Globulin Ratio 1.1 Lipase 76 Serum , Qual NEGATIVE Urine Color Urine Clarity Urine pH Ur Specific [place] Urine Protein Urine Glucose (UA) Urine Ketones Urine Occult Blood Urine Nitrite Urine Bilirubin Urine Urobilinogen Ur Leukocyte Esterase Urine RBC Urine WBC Ur Squamous Epith Cells Urine Bacteria Urine Mucus 08/27/21 09:00 WBC RBC Hgb Hct MCV MCH MCHC RDW Std Deviation RDW Coeff of Sierra Plt Count MPV Immature Gran % (Auto) Neut % (Auto) Lymph % (Auto) Parker % (Auto) Eos % (Auto) Baso % (Auto) Absolute Neuts (auto) Absolute Lymphs (auto) Nucleated RBC % Sodium Potassium Chloride Carbon Dioxide Anion Gap BUN Creatinine Estim Creat Clear Calc Est GFR (MDRD) Af Amer Est GFR (MDRD) Non-Af BUN/Creatinine Ratio Glucose Calcium Total Bilirubin AST ALT Alkaline Phosphatase Total Protein Albumin Globulin Albumin/Globulin Ratio Lipase Serum , Qual Urine Color Yellow Urine Clarity Sl. Cloudy Urine pH 7.0 Ur Specific [place] 1.005 Urine Protein 15 H Urine Glucose (UA) Normal Urine Ketones Negative Urine Occult Blood Negative Urine Nitrite Negative Urine Bilirubin Negative Urine Urobilinogen Normal Ur Leukocyte Esterase Negative Urine RBC 0 SEEN Urine WBC 0 SEEN Ur Squamous Epith Cells 0-5 SEEN Urine Bacteria 1+ Urine Mucus 0 SEEN Radiography Diagnostic Testing: Clinical Impression(s) from Imaging Studies Abdomen/Pelvis CT 08/27/21 08:48 IMPRESSION: Normal unenhanced CT of the abdomen and pelvis. Moderate amount of fecal material is seen in the colon more prominent in the right hemicolon. Electronically Signed: Gino Morgan MD at 9:51 EDT , Discharge Plan Triage Chief Complaint: Flank Pain ED Provider: Sergey Sierra Dx/Rx/DC Orders Clinical Impression: Abdominal pain, Acute flank pain Instructions: ED Abdominal Pain Unkn Cause Fem, ED Flank Pain, Uncertain Cause Prescriptions: New hydrocodone-acetaminophen [hydrocodone-acetaminophen] 1 TABLET tablet 1 tab PO Q4H PRN PRN (Reason: Pain) 2 Days Qty: 10 0RF No Action albuterol sulfate [Ventolin HFA] 1 INHALER inhaler 1 - 2 puff inhalation Q6H PRN PRN (Reason: Asthma) albuterol sulfate 2.5 MG/3 ML solution for nebulization 2.5 mg INHALATION Q6HWA.RT PRN (Reason: Asthma) promethazine 25 MG tablet 25 mg PO QHS PRN (Reason: Nausea) trazodone 150 mg PO/SL DAILY ondansetron 4 mg tablet,disintegrating 4 mg PO Q8H PRN (Reason: nausea and vomiting) Qty: 10 0RF sertraline 100 mg tablet 100 mg PO DAILY lorazepam 0.5 mg Tablet 0.5 mg PO DAILY PRN PRN (Reason: Anxiety) tizanidine 2 mg Capsule 2 mg PO DAILY hydrocodone-acetaminophen 5-325 mg tablet 1 tab PO Q6H PRN (Reason: pain) 3 Days Qty: 12 0RF Primary Care Provider: BALBIR SANDERSON NP Referrals: NOT,DEFINED [NON-STAFF] - Disposition Disposition: Home, Self Care
[2021-08-27 09:08] LABS: Mucous, Urine 0 SEEN /hpf (<or=2+); Red Blood Cells-Urine 0 SEEN /hpf (0-5); White Blood Cells 0 SEEN /hpf (0-5)
[2021-08-27 09:10] LABS: Absolute Lymphocyte Count 1.84 X10^3/uL (0.83-4.51); Absolute Neutrophil Count 2.7 X10^3/uL (2.0-7.7); Basophil# 0.03 X10^3/uL; Basophil% 0.6 % (0-1); Hematocrit 37.2 % (37-47); Hemoglobin 11.8 g/dL (12.0-15.0); Lymphocyte # 1.84 X10^3/ul (0.83-4.51); Lymphocyte % 36.3 % (19-41); Mean Corp Hgb Conc 31.7 g/dL (32-36); Mean Corpuscular Hgb 30.2 pg (27.0-32.0); Mean Corpuscular Volume 95.1 fL (81-99); Mean Platelet Vol. 10.9 fl (6.2-12.0); Monocyte# 0.35 X10^3/uL; Monocyte% 6.9 % (0-10); NRBC Flagged by Analyzer 0 % (0-5); Neutrophil # 2.74 X10^3/uL (2.7-7.7); Platelet Count 166 K/mm3 (150-450); RBC Distribution Width CV 12.9 % (11.6-14.6); RBC Distribution Width SD 45.6 fl (35.1-43.9); Red Blood Count 3.91 M/mm3 (4.2-5.4); White Blood Count 5.1 K/mm3 (4.4-11.0)
[2021-08-27] MEDS: Morphine 4 MG/ML Syringe IV (09:11)
[2021-08-27] MEDS: 0.9% Normal Saline 1,000 ML 125 ML IV (09:12)
[2021-08-27] MEDS: Ondansetron 4 MG/2 ML Vial IV (09:12)
[2021-08-27 09:14] LABS: Color, Urine Yellow (Yellow); Glucose, Dipstick Normal (Normal); Ketone-Dipstick Negative (Negative); Leukocyte Esterase-Dipstick Negative /ul (Negative); Nitrite-Dipstick Negative (Negative); Occult Blood-Urine Negative /ul (Negative); Protein-Dipstick 15 mg/dl (Negative); Specific Gravity, Urine 1.005 (1.002-1.030); Urine Bilirubin Dipstick Negative (Negative); Urine Clarity Sl. Cloudy (Clear); Urine Urobilinogen Normal (Normal)
[2021-08-27 09:21] LABS: Bacteria 1+ /hpf (None Seen); Squamous Epithelial Cells - UA 0-5 SEEN /hpf (5-10)
[2021-08-27 09:27] LABS: Internal QC Validated? YES +Cl - CLEAR BKGD; Pregnancy, Serum, hCG Quali. NEGATIVE Negative
--- NOTE | 2021-08-27 09:32 | NURSING ---
Pt w/ small amt redness/bubbled areas to R bicep about IV site. Pt states she has had both zofran and morphine before without problems. Pt states once arm repositioned, felt montero of medication effect of morphine through body. Questionable positional IV catheter. Pt IVF stopped at this time and IV flushed w/ ease/good blood return. Ice pack applied to area. Will reevaluate.
[2021-08-27 09:40] LABS: ALB/GLOB Ratio 1.1 RATIO (0.9-2.4); AST(SGOT) 27 U/L (15-37); Alanine Aminotransfer ALT/SGPT 18 U/L (13-56); Albumin, Serum 3.5 g/dL (3.2-5.0); Alkaline Phosphatase 62 U/L (45-117); Anion Gap 3 (5-15); BUN 12 mg/dL (7-18); BUN/Creat Ratio 15.4 RATIO (10-20); Calcium,Total 8.6 mg/dL (8.5-10.1); Chloride 110 mmol/L (98-107); Creatinine, Serum 0.78 mg/dL (0.55-1.02); EST Glomerular Filtration Rate 90 mL/min (>60); Est Glom Filt Rate - Afr Amer 109 mL/min (>60); Estimated Creatinine Clearance 87.76 ml/min; Globulin 3.3 g/dL (2.2-4.2); Glucose 98 mg/dL (74-106); Lipase 76 U/L (73-393); Potassium 4.7 mmol/L (3.5-5.1); Protein, Total 6.8 g/dL (6.4-8.2); Sodium Level 138 mmol/L (136-145)
--- NOTE | 2021-08-27 10:07 | NURSING ---
IV site reassessed. Previous bubbled sites appear less raised and now white in color. IV site removed. Pt is up for re-eval by . Will continue to monitor. Pt has ice on area for comfort.
[2021-08-27 10:54] VITALS: BP 118/74; PULSE 85; RESP 16; O2SAT 98
== END 2021-08-27 10:55 | disposition home or self-care (01) ==
PROVIDERS: Emergency Provider Emergency Medicine; Visit Provider Emergency Medicine
DX: R10.9 Unspecified abdominal pain (principal); R07.81 Pleurodynia; I12.9 Hypertensive chronic kidney disease with stage 1 through stage 4 chronic kidney disease, or unspecified chronic kidney disease; N18.2 Chronic kidney disease, stage 2 (mild); R31.9 Hematuria, unspecified; F32.A Depression, unspecified; F41.9 Anxiety disorder, unspecified; Z87.442 Personal history of urinary calculi; J45.909 Unspecified asthma, uncomplicated
CPT/HCPCS: 74176; 80053; 81001; 83690; 84703; 85025; 99283; J7030; A4216; J2405

== ENCOUNTER 2021-10-20 18:00 | Emergency (ER) | payer BC, SELFPAY ==
[2021-10-20 18:02] VITALS: BP 86/65; PULSE 95; RESP 17; TEMP 36.6; O2SAT 98; BMI 22.3
[2021-10-20 18:23] VITALS: BP 121/86
--- NOTE | 2021-10-20 18:23 | CT_ITS ---
STUDY: CT ABDOMEN AND PELVIS WITHOUT CONTRAST REASON FOR EXAM: Female, 35 years old. abd pain RADIATION DOSAGE (If Supplied By Facility): CTDIvol = ( 6.40 ) mGy, DLP = ( 297.34 ) mGycm TECHNIQUE: Transaxial images were obtained from the dome of the diaphragm to the symphysis pubis without oral contrast, and without intravenous contrast. Sagittal and coronal images were reconstructed. Individualized dose optimization techniques were used for this CT. COMPARISON: 06/06/2021 FINDINGS: The visualized lung bases are unremarkable. The visualized portions of the heart are within normal limits. Normal liver. Normal gallbladder and extrahepatic biliary system. Normal spleen. Normal pancreas. Normal bilateral adrenal glands. Normal right kidney. Normal left kidney. Normal visualized stomach. Normal small intestine. Normal colon. There is non-visualization of the appendix. Normal abdominal aorta. Normal inferior vena cava. Normal retroperitoneum. Normal urinary bladder. Normal abdominal wall. Normal osseous structures. CT/Abdomen/Pelvis without Cont IMPRESSION: Normal unenhanced CT of the abdomen and pelvis. Electronically Signed: Rafa Recio MD at 20:20 EDT ,
--- NOTE | 2021-10-20 18:24 | EDS_ITS ---
HPI History of Present Illness Chief Complaint: Abd Pain Informant: patient Onset/Context/Timing Onset: Weeks Context: Gradual Onset Timing: Waxes and wanes Current Severity: Severe Maximum Severity: Severe Narrative Narrative: Patient presents secondary to worsened abdominal pain. She has had mid to upper abdominal pain for the past 3 weeks. She is had nausea and diarrhea. She was seen recently by Dr. Blanco who put her on Protonix and Carafate. She is scheduled to have an EGD performed this week. She presents to the ER today because of worsened pain. She did have some leftover Percocet and took 1 of those for pain without relief. She denies fever or chills. No obvious blood in her stool. She has been diagnosed with IBS with constipation in the past but is not on any maintenance medication. [facility] Medical History Anxiety Asthma Depression Hypertension Hypoglycemia Kidney disease Kidney stones Migraines Home Medications albuterol sulfate 90 mcg/actuation aerosol inhaler (Ventolin HFA) 1 - 2 puff inhalation Q6H PRN PRN Asthma 03/22/13 [History Last Taken 05/24/14 08:49] albuterol sulfate 2.5 mg/3 mL (0.083 %) solution for nebulization 2.5 mg inhalation Q6HWA.RT PRN Asthma 02/28/20 [History Last Taken Unknown] promethazine 25 mg tablet 25 mg PO QHS PRN Nausea 02/28/20 [History Last Taken 05/30/21] trazodone 150 mg PO/SL DAILY 12/31/20 [History Last Taken 06/05/21] ondansetron 4 mg disintegrating tablet 4 mg PO Q8H PRN nausea and vomiting #10 tabs 04/17/21 [Rx Last Taken 06/06/21] lorazepam 0.5 mg tablet 0.5 mg PO DAILY PRN PRN Anxiety 06/06/21 [History Last Taken 05/23/21] sertraline 100 mg tablet 100 mg PO DAILY 06/06/21 [History Last Taken 06/06/21] tizanidine 2 mg capsule 2 mg PO DAILY muscle spasm 06/06/21 [History Last Taken 06/05/21] hydrocodone-acetaminophen 5-325mg 5mg-325mg 1 tab PO Q6H PRN pain 3 days #12 tabs 06/07/21 [Rx Last Taken Unknown] hydrocodone-acetaminophen 5-325mg 5mg-325mg 1 tab PO Q4H PRN PRN Pain 2 days #10 TABLETS 08/27/21 [Rx Last Taken Unknown] omeprazole 20 mg capsule,delayed release 20 mg PO DAILY 10/15/21 [History Last Taken Unknown] pantoprazole 40 mg tablet,delayed release 40 mg PO DAILY #30 tabs 10/15/21 [Rx Last Taken Unknown] oxycodone-acetaminophen 5 mg-325 mg tablet (Percocet) 1 tab PO Q6H PRN pain 3 days #10 tabs 10/20/21 [Rx Last Taken Unknown] sucralfate 100 mg/mL oral suspension 10 ml PO Q6H #400 mL 10/20/21 [Rx Last Taken Unknown] sucralfate 100 mg/mL oral suspension 10 ml PO Q6H #400 mL 10/20/21 [Rx Last Taken Unknown] Allergy/AdvReac Type Severity Reaction Status Date / Time codeine Allergy Hives Verified 10/20/21 18:01 metronidazole [From Flagyl] Allergy Shortness Verified 10/20/21 18:01 of breath morphine Allergy Hives Verified 10/20/21 18:01 shellfish derived Allergy Angioedema Verified 10/20/21 18:01 topiramate [From Topamax] Allergy Other Verified 10/20/21 18:01 adhesive AdvReac Rash Verified 10/20/21 18:01 NSAIDS (Non-Steroidal AdvReac PT UNSURE Verified 10/20/21 18:01 Anti-Inflamma OF REACTION Family History Father No cardiac disease Mother No cardiac disease Surgical History Previous section S/P breast lumpectomy S/P removal of right ovary S/P tonsillectomy Social History household members: spouse Smoking Status: Never smoker alcohol intake: never substance use type: does not use ROS ROS ED Constitutional Constitutional ED: Denies chills or fever(s) Eyes Eyes: Denies change in vision or discharge from eye(s) ENT ENT ED: Denies discharge from eye(s), rhinorrhea or sore throat Cardiovascular Cardiovascular: Denies chest pain or palpitations Respiratory/Chest Respiratory/Chest: Denies cough or dyspnea Gastrointestinal Gastrointestinal: Reports abdominal pain, diarrhea and nausea; Denies vomiting Genitourinary Genitourinary ED: Denies difficulty urinating or dysuria Musculoskeletal Musculoskeletal: Denies back pain or extremity pain Integumentary Denies Abrasions or rash Neurologic Neurologic: Reports weakness; Denies headache(s) Allergic/Immunologic Allergic/Immunologic ED: Denies lip swelling or urticaria EXAM Physical Exam Const Vital Signs: 10/20/21 18:02 10/20/21 18:23 10/20/21 20:31 Temperature 97.8 F Temperature Source Temporal Pulse Rate 95 92 Respiratory Rate 17 18 Blood Pressure 86/65 L 121/86 H 116/71 Blood Pressure Mean 72 97 86 Pulse Ox 98 98 Oxygen Delivery Method Room Air Room Air Positive well nourished and well developed General Appearance ED: well developed HEENT Reports normocephalic and head/scalp atraumatic Eyes PERRL and EOMs intact bilaterally Neck supple Chest Wall inspection of chest normal and palpation of chest normal Resp normal respiratory effort and clear to auscultation bilaterally Cardio regular rate and regular rhythm GI GI Narrative: Mild diffuse tenderness to the upper abdomen. No guarding or rebound. Palpation: soft Extremity normal to inspection Neuro oriented x3 and no sensory deficits noted Sensorium / Orientation: alert Motor Exam: strength 5/5 throughout Psych mental status grossly normal Skin no rashes or lesions noted MDM MDM MDM Narrative Medical decision making narrative: Patient was given fentanyl and Zofran for pain and nausea. Lab work obtained along with CT scan of the flank. Lab Data Attestation: I reviewed the patient's lab results. Labs: Laboratory Results - last 24 hr 10/20/21 10/20/21 10/20/21 18:30 18:30 18:30 WBC 7.0 RBC 4.17 L Hgb 12.5 Hct 38.6 MCV 92.6 MCH 30.0 MCHC 32.4 RDW Std Deviation 44.1 H RDW Coeff of Sierra 13.0 Plt Count 199 MPV 10.3 Immature Gran % (Auto) 0.300 Neut % (Auto) 46.9 L Lymph % (Auto) 43.0 H Bland % (Auto) 6.7 Eos % (Auto) 2.4 Baso % (Auto) 0.7 Absolute Neuts (auto) 3.3 Absolute Lymphs (auto) 3.01 Nucleated RBC % 0 Sodium 141 Potassium 3.7 Chloride 111 H Carbon Dioxide 26.0 Anion Gap 4 L BUN 16 Creatinine 0.98 Estim Creat Clear Calc 69.85 Est GFR (MDRD) Af Amer 83 Est GFR (MDRD) Non-Af 69 BUN/Creatinine Ratio 16.3 Glucose 116 H Lactic Acid 1.0 Calcium 8.9 Total Bilirubin 0.30 Direct Bilirubin 0.11 AST 13 L ALT 17 Alkaline Phosphatase 57 Total Protein 7.1 Albumin 3.8 Globulin 3.3 Lipase 168 Serum , Qual 10/20/21 18:30 WBC RBC Hgb Hct MCV MCH MCHC RDW Std Deviation RDW Coeff of Sierra Plt Count MPV Immature Gran % (Auto) Neut % (Auto) Lymph % (Auto) Bland % (Auto) Eos % (Auto) Baso % (Auto) Absolute Neuts (auto) Absolute Lymphs (auto) Nucleated RBC % Sodium Potassium Chloride Carbon Dioxide Anion Gap BUN Creatinine Estim Creat Clear Calc Est GFR (MDRD) Af Amer Est GFR (MDRD) Non-Af BUN/Creatinine Ratio Glucose Lactic Acid Calcium Total Bilirubin Direct Bilirubin AST ALT Alkaline Phosphatase Total Protein Albumin Globulin Lipase Serum , Qual NEGATIVE Radiography Diagnostic Testing: Clinical Impression(s) from Imaging Studies Abdomen/Pelvis CT 10/20/21 18:23 IMPRESSION: Normal unenhanced CT of the abdomen and pelvis. Electronically Signed: Rafa Recio MD at 20:20 EDT , Treatment and Re-Evaluation Narrative: CBC and chemistry studies unremarkable. test negative. LFTs and lipase normal. Lactic acid is normal. CT of the flank is unremarkable. Patient received a total of 2 doses of fentanyl here along with a single small dose of Dilaudid. GI cocktail was given. At this time she does feel improved but still has some slight burning pain. She does feel that the GI cocktail helped coat her stomach and control her pain better. She was recently started on sucralfate. She is currently taking the tablets. I will switch this to the liquid medication to see if that helps coat her stomach better and gets her better pain control. She will continue her Protonix and I will write her for a short course of Percocet. She is to follow-up on Thursday for her scope as planned. Discharge Plan Triage Chief Complaint: Abd Pain ED Provider: Cassy Rodriguez Dx/Rx/DC Orders Clinical Impression: Abdominal pain Instructions: ED Abdominal Pain Unkn Cause Fem Prescriptions: New sucralfate 100 mg/mL suspension 10 ml PO Q6H Qty: 400 0RF oxycodone-acetaminophen [Percocet] 5-325 mg tablet 1 tab PO Q6H PRN (Reason: pain) 3 Days Qty: 10 0RF sucralfate 100 mg/mL suspension 10 ml PO Q6H Qty: 400 0RF Discontinued sucralfate 1 gram tablet 1 g PO QACHS Qty: 56 0RF Rx Instructions: Take one hour before meals and at bedtime No Action omeprazole 20 mg capsule,delayed release(DR/EC) 20 mg PO DAILY pantoprazole 40 mg tablet,delayed release (DR/EC) 40 mg PO DAILY Qty: 30 3RF albuterol sulfate [Ventolin HFA] 1 INHALER inhaler 1 - 2 puff inhalation Q6H PRN PRN (Reason: Asthma) albuterol sulfate 2.5 MG/3 ML solution for nebulization 2.5 mg INHALATION Q6HWA.RT PRN (Reason: Asthma) promethazine 25 MG tablet 25 mg PO QHS PRN (Reason: Nausea) trazodone 150 mg PO/SL DAILY ondansetron 4 mg tablet,disintegrating 4 mg PO Q8H PRN (Reason: nausea and vomiting) Qty: 10 0RF sertraline 100 mg tablet 100 mg PO DAILY lorazepam 0.5 mg Tablet 0.5 mg PO DAILY PRN PRN (Reason: Anxiety) tizanidine 2 mg Capsule 2 mg PO DAILY hydrocodone-acetaminophen 5-325 mg tablet 1 tab PO Q6H PRN (Reason: pain) 3 Days Qty: 12 0RF hydrocodone-acetaminophen [hydrocodone-acetaminophen] 1 TABLET tablet 1 tab PO Q4H PRN PRN (Reason: Pain) 2 Days Qty: 10 0RF Primary Care Provider: [facility] Doctor,Out of Referrals: Tigist Blanco MD [Med Staff - Active Staff] - [facility] [place] [place] Doctor,Out of [Primary Care Provider] - Disposition Disposition: Home, Self Care Discharge Date/Time: 10/20/21 21:55
[2021-10-20] MEDS: 0.9% Normal Saline 1,000 ML 1000 ML IV (18:35)
[2021-10-20] MEDS: fentaNYL 100 MCG/2 ML Ampul 25 MCG IV ×2 (18:36→19:25)
[2021-10-20] MEDS: Ondansetron 4 MG/2 ML Vial IV (18:36)
[2021-10-20 18:45] LABS: Absolute Lymphocyte Count 3.01 X10^3/uL (0.83-4.51); Absolute Neutrophil Count 3.3 X10^3/uL (2.0-7.7); Basophil# 0.05 X10^3/uL; Basophil% 0.7 % (0-1); Eosinophil# 0.17 X10^3/uL; Eosinophils% 2.4 % (0-5); Hematocrit 38.6 % (37-47); Hemoglobin 12.5 g/dL (12.0-15.0); Lymphocyte # 3.01 X10^3/ul (0.83-4.51); Mean Corp Hgb Conc 32.4 g/dL (32-36); Mean Corpuscular Volume 92.6 fL (81-99); Mean Platelet Vol. 10.3 fl (6.2-12.0); Monocyte# 0.47 X10^3/uL; Monocyte% 6.7 % (0-10); NRBC Flagged by Analyzer 0 % (0-5); Neutrophil # 3.28 X10^3/uL (2.7-7.7); Neutrophil % 46.9 % (47-70); Platelet Count 199 K/mm3 (150-450); RBC Distribution Width SD 44.1 fl (35.1-43.9); Red Blood Count 4.17 M/mm3 (4.2-5.4)
[2021-10-20 18:52] LABS: Internal QC Validated? YES +Cl - CLEAR BKGD
[2021-10-20 18:57] LABS: Pregnancy, Serum, hCG Quali. NEGATIVE Negative
[2021-10-20 19:03] LABS: AST(SGOT) 13 U/L (15-37); Alanine Aminotransfer ALT/SGPT 17 U/L (13-56); Albumin, Serum 3.8 g/dL (3.2-5.0); Alkaline Phosphatase 57 U/L (45-117); Anion Gap 4 (5-15); BUN 16 mg/dL (7-18); BUN/Creat Ratio 16.3 RATIO (10-20); Bilirubin, Direct 0.11 mg/dL (0.00-0.30); Calcium,Total 8.9 mg/dL (8.5-10.1); Chloride 111 mmol/L (98-107); Creatinine, Serum 0.98 mg/dL (0.55-1.02); EST Glomerular Filtration Rate 69 mL/min (>60); Est Glom Filt Rate - Afr Amer 83 mL/min (>60); Estimated Creatinine Clearance 69.85 ml/min; Globulin 3.3 g/dL (2.2-4.2); Glucose 116 mg/dL (74-106); Lipase 168 U/L (73-393); Potassium 3.7 mmol/L (3.5-5.1); Protein, Total 7.1 g/dL (6.4-8.2); Sodium Level 141 mmol/L (136-145)
[2021-10-20] MEDS: 0.9% Normal Saline 1,000 ML 150 ML IV (19:48)
[2021-10-20] MEDS: HYDROmorphone 0.5 MG/0.5 ML SYRINGE IV (20:30)
[2021-10-20 20:31] VITALS: BP 116/71; PULSE 92; RESP 18; O2SAT 98
[2021-10-20] MEDS: Mag Hydrox/Al Hydrox/Simeth 30 ML UDC PO (21:03)
== END 2021-10-20 21:55 | disposition home or self-care (01) ==
PROVIDERS: Emergency Provider Emergency Medicine; Visit Provider Emergency Medicine
DX: R10.9 Unspecified abdominal pain (principal); R19.7 Diarrhea, unspecified; I10 Essential (primary) hypertension; R11.0 Nausea; F41.9 Anxiety disorder, unspecified; J45.909 Unspecified asthma, uncomplicated; F32.9 Major depressive disorder, single episode, unspecified; Z79.899 Other long term (current) drug therapy
CPT/HCPCS: 74176; 80048; 80076; 83605; 83690; 84703; 85025; 99285; J7030; A4216; J2405

== ENCOUNTER 2021-10-23 12:45 | Day surgery (SDC) | payer BC, SELFPAY ==
[2021-10-23] VITALS (9 sets, daily range): BP systolic 91–117; BP diastolic 57–74; PULSE 55–85; RESP 16–18; TEMP 36.6; O2SAT 95–100; BMI 23.0
--- NOTE | 2021-10-23 12:57 | PCM.HP.BLA ---
History and Physical Date of Admission: 10/23/21 Date of Service:? 10/15/21 MR#: [id number] Acct: [id number] Name:KENDALL BEATTY Rep #: [id number] : 1985 ? ? Provider: Dr. Tigist Blanco MD Age/Sex:? 35/F ? ? [place] [facility] [place] Status: Signed Intake Vital Signs ? 08/28/2207:37 10/15/2208:44 Height 5 ft 4 in 5 ft 4 in Weight: 130 lb 132 lb BMI 22.3 22.6 BP 120/83 H 111/76 Blood Pressure Location ? Rt brachial Position ? Sitting Respiration 16 16 Pulse 98 103 H Pulse Source ? Monitor Temp 98 F 97.4 F L Temp Source Temporal Temporal Pulse Oximetry (%) 98 95 Oxygen Delivery Method ? room air Intake Visit Reasons:?GALLBLADDER Chief Complaint: gallbladder Social Work Assistant Required: No Is patient in pain?: Yes Pain scale (1-10): 5 Allergies codeine Allergy (Verified 10/15/21 09:45) Hivesmetronidazole [From Flagyl] Allergy (Verified 10/15/21 09:45) Shortness of breathshellfish derived Allergy (Verified 10/15/21 09:45) Angioedematopiramate [From Topamax] Allergy (Verified 10/15/21 09:45) Otheradhesive Adverse Reaction (Verified 10/15/21 09:45) RashNSAIDS (Non-Steroidal Anti-Inflamma Adverse Reaction (Verified 10/15/21 09:45) PT UNSURE OF REACTION Medications albuterol sulfate 90 mcg/actuation aerosol inhaler (Ventolin HFA) 1 - 2 puff inhalation Q6H PRN PRN Asthma 03/22/13 [History Confirmed 06/06/21] albuterol sulfate 2.5 mg/3 mL (0.083 %) solution for nebulization 2.5 mg inhalation Q6HWA.RT PRN Asthma 02/28/20 [History Confirmed 06/06/21] promethazine 25 mg tablet 25 mg PO QHS PRN Nausea 02/28/20 [History Confirmed 06/06/21] trazodone 150 mg PO/SL DAILY 12/31/20 [History Confirmed 06/06/21] ondansetron 4 mg disintegrating tablet 4 mg PO Q8H PRN nausea and vomiting #10 tabs 04/17/21 [Rx Confirmed 06/06/21] lorazepam 0.5 mg tablet 0.5 mg PO DAILY PRN PRN Anxiety 06/06/21 [History Confirmed 06/06/21] sertraline 100 mg tablet 100 mg PO DAILY 06/06/21 [History Confirmed 06/06/21] tizanidine 2 mg capsule 2 mg PO DAILY muscle spasm 06/06/21 [History Confirmed 06/06/21] hydrocodone-acetaminophen 5-325mg 5mg-325mg 1 tab PO Q6H PRN pain 3 days #12 tabs 06/07/21 [Rx] hydrocodone-acetaminophen 5-325mg 5mg-325mg 1 tab PO Q4H PRN PRN Pain 2 days #10 TABLETS 08/27/21 [Rx] omeprazole 20 mg capsule,delayed release 20 mg PO DAILY 10/15/21 [History Confirmed 10/15/21] pantoprazole 40 mg tablet,delayed release 40 mg PO DAILY #30 tabs 10/15/21 [Rx Confirmed 10/15/21] sucralfate 1 gram tablet 1 g PO QACHS #56 tabs 10/15/21 [Rx Confirmed 10/15/21] PFSH Medical History?(Updated 10/15/21 @ 10:[address] Tigist Blanco MD) Anxiety Asthma Depression Hypertension Hypoglycemia Kidney disease Kidney stones Migraines Surgical History?(Updated 10/15/21 @ 09:44 by Antonina Myers) Previous section S/P breast lumpectomy S/P removal of right ovary S/P tonsillectomy Family History? Father No cardiac diseaseMother No cardiac disease Social History? household members:? spouse Smoking Status:? Never smoker alcohol intake:? never substance use type:? does not use HPI HPI HPI: KENDALL RENAE, is a 35 F who presents to the office today for right upper quadrant epigastric pain, nausea and vomiting.? Patient states she has had the symptoms ongoing for a few years.? Patient plans of right upper quadrant as well as some occasional back pain near the shoulder blades.? Patient states she did have right upper quadrant discomfort on palpation as well.? Patient states she also has been having diarrhea and nausea and vomiting.? Patient states he did have issue right after eating pizza or fried chicken.? Patient has also had increased fatigue.? Patient has been on omeprazole 20 mg p.o. daily for about 3 weeks has not noticed much change.? Patient states the abdominal pain can wake her up in the middle of the night.? And then can occur directly after eating food.? Patient states about 8 to 10 years ago she had a HIDA scan was unable to be completed due to drop in blood sugar, patient states she had an EGD and colonoscopy about 3 years ago?diagnosed with IBS with constipation and had some thinning of her gastric lining due to NSAIDs.? Patient does not take NSAIDs currently and only occasionally takes aspirin.? Patient has been needing to take Phenergan/Compazine daily due to nausea.? Patient has had CT abdomen pelvis as well as an ultrasound of the gallbladder this year which did not show any gallstones or sludge.? Normal gallbladder wall was seen on the ultrasound from April of this year no pericholecystic fluid normal common bile duct. ROS General General: Yes fatigue; No weight change, appetite, colon cancer, breast cancer or weakness HEENT HEENT: No difficulty swallowing, eye injury, eye surgery, swollen glands or hoarseness Endo Endocrine: No thyroid disease, diabetes mellitus, thyroid cancer, Hair loss, heat intolerance or cold intolerance Skin Skin: No rash or changing moles Breast Breast: No left breast lump, right breast lump, nipple discharge, breast pain, abnormal mammogram, abnormal US or breast enlargement Musc Musculoskeletal: Yes back problems; No arthritis, rheumatoid arthritis, gout or joint pain Cardio Cardiovascular: Yes high blood pressure; No murmur, pacemaker, heart disease, atrial fibrillation, heart attack, heart stent, palpitations, shortness of breat with exertion or chest pain Psych Psychiatric: Yes depression; No anxiety or hearing voices Additional Details: Resp Respiratory: No shortness of breath, Yes sleep apnea, No cough, No COPD, Yes asthma, No emphysema and No wheezing Gastro Gastrointestinal: Yes abdominal pain, Yes nausea or vomiting, Yes diarrhea, Yes constipation, No blood in stool, Yes acid reflux, No hemorrhoids, No ulcers, Yes gallbladder problem and No black,tarry stools Dominick Hematologic: No blood thinners, No blood disorders, No bleeding, Yes anemia and No blood clots Neuro Neurologic: No system reviewed and no additional complaints, except as documented, No as per HPI, No abnormal gait, No abnormal hearing, No abnormal movements, No abnormal speech, No behavioral changes, No burning sensations, No confusion, No convulsions, No disequilibrium, No dizziness, No localized weakness, No frequent falls, No headache(s), No lack of coordination, No loss of vision, No memory loss, No numbness, No other visual disturbances, No radicular pain, No restless legs, No sensory deficit, No syncope, No tingling, No tremor(s), No weakness and No other Exam Const General: cooperative, healthy appearing and no acute distress [facility] Head: normal to inspection Resp Effort & Inspection: normal respiratory effort Cardio Rate: regular rate GI Inspection: non-distended Palpation: soft, no guarding, no hernias and tender (Minimal bilateral lower quadrant) in the epigastrum and in the RUQ; with no rebound tenderness Skin General: no rashes or lesions noted Neuro General: patient oriented x3 Extrem General: no clubbing, cyanosis or edema Psych Affect: normal affect Assessment and Plan Assessment and Plan (1) Epigastric abdominal pain: ?Status:?Acute (2) RUQ pain: ?Status:?Acute (3) N&V (nausea and vomiting): ?Status:?Acute ? ? ? Medications: New pantoprazole 40 mg? PO DAILY 30 tabs 3RF ? ? sucralfate ?? Take one hour before meals and at bedtime 1 g? PO QACHS 56 tabs 0RF ? ? Plan Discussed with patient that her symptoms did seem to correspond better to a gastric etiology than gallbladder.? Did review CT abdomen pelvis as well as ultrasounds with patient.? No gallstones or sludge seen on imaging.? Patient would need a HIDA scan to further look at her gallbladder.? Due to her symptoms today more with gastric etiology did recommend changing her PPI to Protonix as well as adding Carafate and planning for an EGD.? Patient was agreeable with plan.? We will first plan to change medication/EGD and if that does not show anything would plan for HIDA at that point.? Patient was agreeable with plan. I have discussed the above with the patient. I have offered the patient esophagogastroduodenoscopy for evaluation. I have explained the risks/benefits of the procedure and described the procedure.? I have discussed the risks with the patient, including but not limited to:? infection, bleeding, perforation of the GI tract requiring emergency surgery, inability to complete the procedure, injury to any internal organs, complications of anesthesia, etc. - the patient understands and agrees to proceed. I have answered all the patient's questions to the patient's satisfaction and the patient has no further questions. Tigist Blanco M.D. Pager: [phone] [facility] [address] [place] [address], [address] [place] [address] Office: [phone] Coding Level of Care Code Off vis,new,level 3 Diagnoses Epigastric abdominal pain? R10.13 RUQ pain? R10.11 N&V (nausea and vomiting)? R11.2 10/15/21 1047 <Electronically signed by Tigist Blanco MD> Date Tigist Blanco MD
[2021-10-23 13:03] LABS: Internal QC Validated? YES +Cl - CLEAR BKGD; Pregnancy, Urine Negative Negative
[2021-10-23] MEDS: Lactated Ringers 1,000 ML 15 ML IV (13:27)
[2021-10-23] MEDS: Dext 5%-0.45% NS 1,000 ML 15 ML IV (13:36)
--- NOTE | 2021-10-23 13:45 | IMM_PTH ---
PATIENT: KENDALL RENAE LOC: EN U#:[id number] AGE/SX: 35/F ROOM: RE10/23/[address]: Dr. Tigist Blanco MD : 1985 BED: DIS: 10/23/2021 SPEC #: [id number] RECD: 10/24/21 14:19 STATUS: CLARA SAMMIE #: [id number] SPEEDY: 10/23/21 13:[address]: Tigist Blanco DEPT: IMMUNOHISTOCHEMISTRY RECD BY: Kathya Walter Tissues: A - Stomach, NOS Procedures: H Pylori (initial) PHYSICIAN & INSTITUTION [place] [id number] SPECIMEN INFORMATION: Tissue Source: A ? Antrum biopsy Clinical Info: Epigastric abdominal pain, RUQ pain, nausea and vomiting Specimen Number: [id number] CPT code: 33973 METHODOLOGY: Deparaffinized sections of prefer/formalin-fixed tissue or PAP/DQ stained slides are incubated with monoclonal/polyclonal antibodies/oligonucleotide probes. Localization is made via biotin free immunoperoxidase method. Appropriate controls are performed and reacted as expected. Results on target cell population are indicated in the following table: RESULTS: ANTIBODY / CLONE RESULT Block A H Pylori (polyclonal) negative These tests were developed and their performance characteristics determined by [facility]. They may not have been cleared or approved by the U.S. Food and Drug Administration. The FDA has determined that such clearance or approval is not necessary. The above immunohistochemical/dualISH markers are ordered and reviewed by the Pathologist. INTERPRETATION: A. Antrum, biopsy: Negative for Helicobacter pylori organisms. SJ:abby 10/25/2021
--- NOTE | 2021-10-23 13:45 | EGD_PTH ---
PATIENT: KENDALL RENAE LOC: EN U#:[id number] AGE/SX: 35/F ROOM: RE10/23/[address]: Dr. Tigist Blanco MD : 1985 BED: DIS: 10/23/2021 SPEC #: [id number] RECD: 10/23/21 14:12 STATUS: CLARA SAMMIE #: [id number] SPEEDY: 10/23/21 13:[address]: Tigist Blanco DEPT: SURGICAL PATHOLOGY RECD BY: Luzma White Tissues: A - Gastric mucous membrane B - Gastric mucous membrane Procedures: Special Stain Group II Surgery Specimen Level IV Alcian Blue/PAS (control) HEADER OPERATION: EGD ([facility] [place] PRE-OP DIAGNOSIS: Epigastric abdominal pain, RUQ pain, nausea, vomiting, epigastric abdominal pain, RUQ pain TISSUE SUBMITTED: A - Antrum biopsy for H. pylori and histology, B - Gastroesophageal junction biopsy MICROSCOPIC DIAGNOSIS A. Antrum, biopsy: Mild gastritis. See microscopic description and comment. B. Gastroesophageal junction, biopsy: Fragments of gastroesophageal mucosa with moderate chronic inflammation. Intestinal metaplasia (goblet cell metaplasia) not identified. See comment. SJ:abby 10/25/2021 COMMENT A. The results of immunohistochemistry for Helicobacter pylori will be reported separately ([id number]). B. Alcian blue/PAS stain with matched control is used in the evaluation of the specimen. MICROSCOPIC DESCRIPTION Slides are reviewed. A. The specimen shows fragments of gastric mucosa with chronic inflammatory cell infiltrates in the lamina propria consisting of lymphocytes and plasma cells, consistent with mild chronic gastritis. GROSS DESCRIPTION A - Received in fixative is one container labeled with the patient's name and designated antrum biopsy. The specimen consists of one irregular fragment of light falk soft tissue that measures 0.3 x 0.3 x 0.1 cm. The specimen is totally submitted in one cassette. B - Received in fixative is one container labeled with the patient's name and designated GE junction biopsy. The specimen consists of two irregular fragments of light falk soft tissue that in aggregate measure 0.8 x 0.3 x 0.1 cm. The specimen is totally submitted in one cassette. / CECILY:abby 10/24/2021 TC:3 CPT: 06436 x2, 82995
[2021-10-23 13:50] LABS: Bedside Glucose 71 mg/dL (74-106)
--- NOTE | 2021-10-23 14:01 | OP.EGD_ITS ---
Patient Name: Yadira Vasques Procedure Date: 10/23/2021 1:32 PM Date of : 1985 Age: 35 Procedure: Upper GI endoscopy Indications: Epigastric abdominal pain, Abdominal pain in the right upper quadrant, Abdominal pain in the left upper quadrant, Diarrhea, Nausea Providers: Tigist Blanco MD Medicines: Monitored Anesthesia Care Patient Profile: This is a 35 year old female. Complications: No immediate complications. Procedure: Pre-Anesthesia Assessment: - Prior to the procedure, a History and Physical was performed, and patient medications and allergies were reviewed. The patient's tolerance of previous anesthesia was also reviewed. The risks and benefits of the procedure and the sedation options and risks were discussed with the patient. All questions were answered, and informed consent was obtained. Prior Anticoagulants: The patient has taken no previous anticoagulant or antiplatelet agents. ASA Grade Assessment: Per anesthesia. After reviewing the risks and benefits, the patient was deemed in satisfactory condition to undergo the procedure. After obtaining informed consent, the endoscope was passed under direct vision. Throughout the procedure, the patient's blood pressure, pulse, and oxygen saturations were monitored continuously. The gastroscope was introduced through the mouth, and advanced to the second part of duodenum. The upper GI endoscopy was accomplished without difficulty. The patient tolerated the procedure well. Scope In: 1:48:04 PM Scope Out: 1:54:53 PM Total Procedure Duration Time 0 hours 6 minutes 49 seconds Findings: The Z-line was irregular and was found 40 cm from the incisors. Biopsies were taken with a cold forceps for histology. The cardia and gastric fundus were normal on retroflexion. Diffuse moderate inflammation characterized by erythema was found in the entire examined stomach. Biopsies were taken with a cold forceps for Helicobacter pylori cultures. Biopsies were taken with a cold forceps for Helicobacter pylori testing using a rapid urease test. Biopsies were taken with a cold forceps for histology. The examined duodenum was normal. Impression: - Z-line irregular, 40 cm from the incisors. Biopsied. - Gastritis. Biopsied. - Normal examined duodenum. Recommendation: - Await pathology results. - Discharge patient to home. - Resume previous diet. - Continue present medications. Procedure Code(s): --- Professional --- 90982, Esophagogastroduodenoscopy, flexible, transoral; with biopsy, single or multiple Diagnosis Code(s): --- Professional --- K22.8, Other specified diseases of esophagus K29.70, Gastritis, unspecified, without bleeding R10.13, Epigastric pain R10.11, Right upper quadrant pain R10.12, Left upper quadrant pain R19.7, Diarrhea, unspecified R11.0, Nausea CPT copyright 2017 [employer]. All rights reserved. The codes documented in this report are preliminary and upon centerless grinding machine adjuster review may be revised to meet current compliance requirements. MD Tigist Salvador MD 10/23/2021 2:00:42 PM This report has been signed electronically. Number of Addenda: 0 Note Initiated On: 10/23/2021 1:32 PM
== END 2021-10-23 15:30 | disposition home or self-care (01) ==
LOC: EN 12:47 → AC 12:49
PROVIDERS: Anesthesiology; Visit Provider Surgery
PROC: 0DJ08ZZ Inspection of Upper Intestinal Tract, Via Natural or Artificial Opening Endoscopic (ICD-10-PCS; CPT 43235; principal; 2021-10-23 13:40)
DX: K29.70 Gastritis, unspecified, without bleeding (principal); K58.0 Irritable bowel syndrome with diarrhea; R10.13 Epigastric pain; R10.11 Right upper quadrant pain; R10.12 Left upper quadrant pain; R19.7 Diarrhea, unspecified; R11.2 Nausea with vomiting, unspecified; F41.9 Anxiety disorder, unspecified; F32.A Depression, unspecified; I10 Essential (primary) hypertension; Z87.442 Personal history of urinary calculi
CPT/HCPCS: 43239; 81025; 82962; 88305; 88313; 88342; J7120; J2405; J7799

== ENCOUNTER 2021-10-25 19:18 | Emergency (ER) | payer BC, SELFPAY ==
[2021-10-25 19:19] VITALS: BP 126/76; PULSE 139; RESP 20; TEMP 36.5; BMI 22.3
--- NOTE | 2021-10-25 19:33 | US_ITS ---
STUDY: ABDOMINAL ULTRASOUND - RIGHT UPPER QUADRANT REASON FOR VISIT: Female, 35 years old. Right upper quadrant pain. TECHNIQUE: Ultrasound evaluation of the right upper quadrant was performed with real-time and static khan-scale imaging. TECHNICAL QUALITY: Adequate. COMPARISON: CT of the abdomen and pelvis, 10/20/2021. FINDINGS: Liver: The liver measures 15.6 cm. There is normal echogenicity of the liver. The bile ducts are within normal limits. There is hepatic color flow. The direction of portal flow is hepatopetal. There is no demonstrated mass lesion. Gallbladder: Normal distended gallbladder. The gallbladder wall measures 1.1 mm. There is a negative sonographic Samayoa''s sign. There is no pericholecystic fluid. There are no gallstones. Common Bile Duct (C.B.D.): The common bile duct measures 3.1 mm. Pancreas: Normal size of the head, body and tail of the pancreas. There is normal echogenicity of the pancreas. There is no demonstrated pancreatic mass or cyst. Right Kidney: Normal size of the right kidney. The right kidney measures 10.9 cm. Normal renal cortex. The right cortex measures 1.5 cm. There is no demonstrated renal mass or cyst. There is no right hydronephrosis. US/Gallbladder IMPRESSION: Normal right upper quadrant ultrasound examination. Electronically Signed: Damon Galloway DO at 20:59 EDT ,
--- NOTE | 2021-10-25 19:41 | EX.ED.DYSGE1 ---
HPI History of Present Illness Chief Complaint: Abd Pain Narrative Narrative: Patient presents with epigastric pain, this is been ongoing for about a month. She tells me it is getting worse. She recently had endoscopy done, apparently she was found to have significant gastritis. Pain is the same its not worse than before but apparently she is on a PPI and nothing is working she was sent here by her surgeon whom I talked to. [facility] Medical History Abdominal pain Alcohol use Anemia Anxiety Back pain Bronchitis Depression Dietary restriction Easy bruising History of echocardiogram History of edema History of IBS History of irregular heartbeat Hypertension Hypoglycemia Hypoglycemia Kidney disease Kidney stones Migraines Restless legs Seizures Shortness of breath on exertion Sleep apnea Wears glasses Home Medications albuterol sulfate 90 mcg/actuation aerosol inhaler (Ventolin HFA) 1 - 2 puff inhalation Q6H PRN PRN Asthma 03/22/13 [History Last Taken 05/24/14 08:49] promethazine 25 mg tablet 25 mg PO QHS PRN Nausea 02/28/20 [History Last Taken 05/30/21] trazodone 150 mg PO/SL QHS 12/31/20 [History Last Taken 06/05/21] ondansetron 4 mg disintegrating tablet 4 mg PO Q8H PRN nausea and vomiting #10 tabs 04/17/21 [Rx Last Taken 06/06/21] lorazepam 0.5 mg tablet 0.5 mg PO DAILY PRN PRN Anxiety 06/06/21 [History Last Taken 05/23/21] sertraline 100 mg tablet 150 mg PO DAILY 06/06/21 [History Last Taken 06/06/21] tizanidine 2 mg capsule 4 mg PO QHS muscle spasm 06/06/21 [History Last Taken 06/05/21] pantoprazole 40 mg tablet,delayed release 40 mg PO DAILY #30 tabs 10/15/21 [Rx Last Taken Unknown] oxycodone-acetaminophen 5 mg-325 mg tablet (Percocet) 1 tab PO Q6H PRN pain 3 days #10 tabs 10/20/21 [Rx Last Taken Unknown] sucralfate 100 mg/mL oral suspension 10 ml PO Q6H #400 mL 10/20/21 [Rx Last Taken Unknown] diphenhydramine 25 mg-acetaminophen 500 mg tablet (Tylenol PM Extra Strength) 1 tab PO QHS 10/22/21 [History Last Taken Unknown] potassium chloride 20 mEq tablet,extended release 40 meq PO DAILY 10/22/21 [History Last Taken Unknown] 17-iron(35 mg-5 mg)-folic acid 1.2 mg-fish oil 400 mg capsule 1 cap PO DAILY 10/22/21 [History Last Taken Unknown] esomeprazole magnesium 20 mg capsule,delayed release (Nexium 24HR) 20 mg PO DAILY 10/25/21 [History Last Taken Unknown] Allergy/AdvReac Type Severity Reaction Status Date / Time codeine Allergy Hives Verified 10/22/21 10:47 metronidazole [From Flagyl] Allergy Shortness Verified 10/22/21 10:47 of breath morphine Allergy Hives Verified 10/22/21 10:47 ondansetron [From Zofran] Allergy Hives Verified 10/25/21 20:10 shellfish derived Allergy Angioedema Verified 10/22/21 10:47 topiramate [From Topamax] Allergy Other Verified 10/22/21 10:47 adhesive AdvReac Rash Verified 10/22/21 10:47 NSAIDS (Non-Steroidal AdvReac PT UNSURE Verified 10/22/21 10:47 Anti-Inflamma OF REACTION Family History Father No cardiac disease Mother No cardiac disease Surgical History Hx of laparoscopy Previous section S/P breast lumpectomy S/P removal of right ovary S/P tonsillectomy Social History household members: spouse Smoking Status: Never smoker alcohol intake: never substance use type: does not use ROS ROS ED ROS Narrative Past medical history: Reviewed Medications: Reviewed Social history: Noncontributory Review of systems: All systems negative except as indicated General: No fever Eyes: No visual changes ENT: No upper airway congestion, normal voice Neck: No neck pain Cardiovascular: No chest pain Respiratory: No shortness of breath or cough Gastrointestinal: Abdominal pain as in HPI Genitourinary: No dysuria Musculoskeletal: Denies myalgias no difficulty with ambulation Skin: No rash Neurological: No memory loss, confusion or any focal weakness Psych: No recent behavioral changes Hematologic: No easy bleeding or easy bruising EXAM Physical Exam Narrative Exam Narrative: Physical exam General: Patient appears uncomfortable Head: Normocephalic, Atraumatic Eyes: Conjunctiva not pale ENT: Moist mucous membranes Neck: Supple, Nontender, No lymphadenopathy Cardiovascular: Regular rate, Regular rhythm Respiratory: No distress, CTA bilaterally Abdomen: Soft, mostly epigastric pain. There is no significant right upper quadrant pain, [place]'s is negative. Back: Nontender, Normal Inspection. Negative for: CVA tenderness Extremities: Nontender, No edema Skin: Normal color, No rash Neurological: Alert, Normal Strength, Normal Sensation Psychological: Normal affect Const Vital Signs: 10/25/21 19:19 10/25/21 19:19 Temperature 97.7 F L 97.7 F L Temperature Source Temporal Temporal Pulse Rate 139 H 139 H Respiratory Rate 20 H 20 H Blood Pressure 126/76 H 126/76 H Blood Pressure Mean 92 92 MDM MDM MDM Narrative Medical decision making narrative: Patient's work-up is unremarkable. She did improve in the emergency department should be discharged to follow-up with her surgeon. Lab Data Labs: Laboratory Results - last 24 hr 10/25/21 10/25/21 10/25/21 20:40 20:45 21:00 WBC 7.8 RBC 3.93 L Hgb 11.8 L Hct 35.8 L MCV 91.1 MCH 30.0 MCHC 33.0 RDW Std Deviation 43.3 RDW Coeff of [place] 13.0 Plt Count 133 L MPV 10.9 Immature Gran % (Auto) 0.500 Neut % (Auto) 48.8 Lymph % (Auto) 40.7 Bartholomew % (Auto) 7.6 Eos % (Auto) 1.8 Baso % (Auto) 0.6 Absolute Neuts (auto) 3.8 Absolute Lymphs (auto) 3.18 Nucleated RBC % 0 Platelet Estimate SLT DEC RBC Morphology N CHROM Anisocytosis RARE Macrocytosis RARE Sodium 138 Potassium 4.4 Chloride 106 Carbon Dioxide 28.0 Anion Gap 4 L BUN 12 Creatinine 0.96 Estim Creat Clear Calc 71.30 Est GFR (MDRD) Af Amer 85 Est GFR (MDRD) Non-Af 71 BUN/Creatinine Ratio 12.5 Glucose 101 Calcium 9.5 Total Bilirubin 0.40 AST 27 ALT 18 Alkaline Phosphatase 62 Total Protein 8.2 Albumin 4.2 Globulin 4.0 Albumin/Globulin Ratio 1.0 Lipase 147 Urine Color Yellow Urine Clarity Sl. Cloudy Urine pH 6.0 Ur Specific [place] 1.010 Urine Protein Negative Urine Glucose (UA) Normal Urine Ketones Negative Urine Occult Blood Negative Urine Nitrite Negative Urine Bilirubin Negative Urine Urobilinogen Normal Ur Leukocyte Esterase Negative Urine RBC 0 SEEN Urine WBC 0-5 SEEN Ur Squamous Epith Cells 0-5 SEEN Urine Bacteria 0 SEEN Urine Mucus 0 SEEN Radiography Diagnostic Testing: Clinical Impression(s) from Imaging Studies Gallbladder Ultrasound 10/25/21 19:33 IMPRESSION: Normal right upper quadrant ultrasound examination. Electronically Signed: Damon Galloway DO at 20:59 EDT Reading Location [facility] and [facility] Tel [phone], Service support , Chest X-Ray 10/25/21 21:14 IMPRESSION: Hyperexpanded lungs. There is no major interval change. Electronically Signed: Damon Galloway DO at 21:44 EDT Reading Location [facility] and State: [facility] Tel [phone], Service support , Chest x-ray read by me is negative. Discharge Plan Triage Chief Complaint: Abd Pain ED Provider: Henry Funk Dx/Rx/DC Orders Clinical Impression: Abdominal pain, Gastritis Instructions: Abdominal Pain Prescriptions: No Action pantoprazole 40 mg tablet,delayed release (DR/EC) 40 mg PO DAILY Qty: 30 3RF albuterol sulfate [Ventolin HFA] 1 INHALER inhaler 1 - 2 puff inhalation Q6H PRN PRN (Reason: Asthma) promethazine 25 MG tablet 25 mg PO QHS PRN (Reason: Nausea) trazodone 150 mg PO/SL QHS ondansetron 4 mg tablet,disintegrating 4 mg PO Q8H PRN (Reason: nausea and vomiting) Qty: 10 0RF sertraline 100 mg tablet 150 mg PO DAILY lorazepam 0.5 mg Tablet 0.5 mg PO DAILY PRN PRN (Reason: Anxiety) tizanidine 2 mg Capsule 4 mg PO QHS diphenhydramine-acetaminophen [Tylenol PM Extra Strength] 25-500 mg Tablet 1 tab PO QHS Rx Instructions: administer while awake prenat vit [id number],6 35-5-1.2-400 mg Capsule 1 cap PO DAILY potassium chloride 20 mEq Tablet Extended Release 40 meq PO DAILY sucralfate 100 mg/mL suspension 10 ml PO Q6H Qty: 400 0RF oxycodone-acetaminophen [Percocet] 5-325 mg tablet 1 tab PO Q6H PRN (Reason: pain) 3 Days Qty: 10 0RF esomeprazole magnesium [Nexium 24HR] 20 mg Capsule,Delayed Release(Dr/Ec) 20 mg PO DAILY Primary Care Provider: BALBIR SANDERSON Referrals: [facility] Doctor,Out of [Non-Staff] - 2 Days Disposition Disposition: Home, Self Care
[2021-10-25] MEDS: HYDROmorphone 1 MG/ML Syringe IV (19:47)
[2021-10-25] MEDS: Mag Hydrox/Al Hydrox/Simeth 30 ML UDC PO (19:48)
[2021-10-25] MEDS: Ondansetron 4 MG/2 ML Vial IV (19:48)
[2021-10-25] MEDS: DiphenhydrAMINE 50 MG/ML Syringe IV (20:00)
[2021-10-25] MEDS: MethylPREDNISolone 125 MG/2 ML Vial IV (20:00)
[2021-10-25 21:03] LABS: Absolute Lymphocyte Count 3.18 X10^3/uL (0.83-4.51); Absolute Neutrophil Count 3.8 X10^3/uL (2.0-7.7); Basophil# 0.05 X10^3/uL; Basophil% 0.6 % (0-1); Eosinophil# 0.14 X10^3/uL; Eosinophils% 1.8 % (0-5); Hematocrit 35.8 % (37-47); Hemoglobin 11.8 g/dL (12.0-15.0); Lymphocyte # 3.18 X10^3/ul (0.83-4.51); Lymphocyte % 40.7 % (19-41); Mean Corpuscular Volume 91.1 fL (81-99); Mean Platelet Vol. 10.9 fl (6.2-12.0); Monocyte# 0.59 X10^3/uL; Monocyte% 7.6 % (0-10); NRBC Flagged by Analyzer 0 % (0-5); Neutrophil # 3.81 X10^3/uL (2.7-7.7); Neutrophil % 48.8 % (47-70); POSITIVE COUNT YES; Platelet Count 133 K/mm3 (150-450); RBC Distribution Width SD 43.3 fl (35.1-43.9); Red Blood Count 3.93 M/mm3 (4.2-5.4); White Blood Count 7.8 K/mm3 (4.4-11.0)
[2021-10-25 21:05] LABS: Differential Indicated SCAN CRITERIA MET
[2021-10-25] MEDS: Famotidine 200 MG/20 ML MDV 20 MG in 0.9% Normal Saline (Pres. free 8 ML 300 MG IV (21:10)
[2021-10-25 21:12] LABS: Bacteria 0 SEEN /hpf (None Seen); Mucous, Urine 0 SEEN /hpf (<or=2+)
--- NOTE | 2021-10-25 21:14 | RAD_ITS ---
STUDY: X-RAY CHEST REASON FOR EXAM: Female, 35 years old. Abdominal pain TECHNIQUE: Single AP portable view of the chest. COMPARISON: Chest, 06/06/2021. FINDINGS: There is hyperinflation of the lungs. No focal mass or infiltrate. There is no demonstrated pleural abnormality. Normal size heart. Normal mediastinum and frances. Normal visualized pulmonary arteries. Normal visualized aortic arch and descending thoracic aorta. Normal visualized thoracic spine. Normal visualized ribs, clavicles, and shoulders. There is no demonstrated abnormality of the visualized soft tissue structures of the upper abdomen. RAD/Chest 1 View (Portable) IMPRESSION: Hyperexpanded lungs. There is no major interval change. Electronically Signed: Damon Galloway DO at 21:44 EDT ,
[2021-10-25 21:17] LABS: Color, Urine Yellow (Yellow); Glucose, Dipstick Normal (Normal); Ketone-Dipstick Negative (Negative); Leukocyte Esterase-Dipstick Negative /ul (Negative); Nitrite-Dipstick Negative (Negative); Occult Blood-Urine Negative /ul (Negative); Protein-Dipstick Negative (Negative); Urine Bilirubin Dipstick Negative (Negative); Urine Clarity Sl. Cloudy (Clear); Urine Urobilinogen Normal (Normal)
[2021-10-25 21:30] LABS: Anisocytosis RARE; Macrocytosis RARE; Platelet Estimate SLT DEC (ADEQ); Red Cell Morphology N CHROM NORMAL (NORM C&C)
[2021-10-25 21:41] LABS: AST(SGOT) 27 U/L (15-37); Alanine Aminotransfer ALT/SGPT 18 U/L (13-56); Albumin, Serum 4.2 g/dL (3.2-5.0); Alkaline Phosphatase 62 U/L (45-117); Anion Gap 4 (5-15); BUN 12 mg/dL (7-18); BUN/Creat Ratio 12.5 RATIO (10-20); Calcium,Total 9.5 mg/dL (8.5-10.1); Chloride 106 mmol/L (98-107); Creatinine, Serum 0.96 mg/dL (0.55-1.02); EST Glomerular Filtration Rate 71 mL/min (>60); Est Glom Filt Rate - Afr Amer 85 mL/min (>60); Glucose 101 mg/dL (74-106); Lipase 147 U/L (73-393); Potassium 4.4 mmol/L (3.5-5.1); Protein, Total 8.2 g/dL (6.4-8.2); Sodium Level 138 mmol/L (136-145)
[2021-10-25 21:42] LABS: Red Blood Cells-Urine 0 SEEN /hpf (0-5); Squamous Epithelial Cells - UA 0-5 SEEN /hpf (5-10); White Blood Cells 0-5 SEEN /hpf (0-5)
[2021-10-25 22:04] VITALS: BP 125/74; PULSE 81; O2SAT 97
--- NOTE | 2021-10-25 22:05 | ED.RN ---
194 while administering dilaudid, this rn noticed a large hive developing just above the iv insertion site. pt began to c/o an itchy throat. dr bhat was notified. benadryl, solumedrol & pepcid were administered. pt indicated that she has had allergic reactions in the past and she believes this one is related to the zofran. she states she takes po zofran at home with no reaction, but believes this reaction is only related to iv zofran. pt states she will monitor for any reaction that may occur after taking po zofran.
== END 2021-10-25 22:10 | disposition home or self-care (01) ==
PROVIDERS: Emergency Provider Emergency Medicine; Visit Provider Emergency Medicine
DX: K29.70 Gastritis, unspecified, without bleeding (principal); I10 Essential (primary) hypertension; F32.A Depression, unspecified; F41.9 Anxiety disorder, unspecified; Z87.442 Personal history of urinary calculi
CPT/HCPCS: 71045; 76705; 80053; 81001; 83690; 85025; 96361; 96374; 96375; 99283; J7030; A4216; J2405; J3490

== ENCOUNTER 2021-12-02 07:46 | Emergency (ER) | payer BC, SELFPAY ==
[2021-12-02 07:47] VITALS: BP 117/69; PULSE 79; RESP 16; TEMP 36.4; O2SAT 98; BMI 22.3
--- NOTE | 2021-12-02 07:57 | RAD_ITS ---
STUDY: X-RAY - RIGHT ANKLE REASON FOR EXAM: Female, 36 years old. Pain and swelling TECHNIQUE: 3 view(s) of the ankle. COMPARISON: None. FINDINGS: Normal visualized distal tibia and fibula. Normal medial and lateral malleoli. Normal tibiotalar articulation and ankle mortise. Normal visualized talus and calcaneus. The visualized subtalar, talonavicular, calcaneocuboid and tarsal articulations are normal. The soft tissue structures are unremarkable. RAD/Ankle min 3 Views IMPRESSION: Normal x-ray examination of the ankle. Electronically Signed: Stef Bunn MD at 8:15 EDT ,
--- NOTE | 2021-12-02 07:57 | RAD_ITS ---
STUDY: X-RAY - RIGHT FOOT CLINICAL: Female, 36 years old. Pain and swelling TECHNIQUE: 3 view(s) of the foot. COMPARISON: None. FINDINGS: Normal talus, calcaneus, and tarsal bones. Normal visualized subtalar, talonavicular, calcaneocuboid, tarsal and tarsometatarsal articulations. Normal metatarsi. Normal metatarsophalangeal joint of the great toe. Normal tibial and fibular sesamoid bones. Normal interphalangeal joint of the great toe. Normal phalanges of the great toe. Normal second through fifth metatarsophalangeal joints. Normal interphalangeal joints and phalanges of the lesser toes. The soft tissue structures are unremarkable. RAD/Foot min 3 Views IMPRESSION: Normal x-ray examination of the foot. Electronically Signed: Stef Bunn MD at 8:15 EDT ,
--- NOTE | 2021-12-02 07:58 | ED.VIS.LOWEX ---
HPI History of Present Illness Chief Complaint: Lower Extremity Injury Informant: patient Onset/Context/Timing Onset: Yesterday Context: Sudden Onset Timing: Waxes and wanes Quality of Pain: Aching and Throbbing Current Severity: Moderate Maximum Severity: Moderate Narrative Narrative: Patient presents with right foot and ankle pain. She states she was hiking yesterday and rolled her right foot. She has pain of the proximal aspect of her foot and lateral malleolus. She states that she broke her talus in that foot 6 years ago. [facility] Medical History Abdominal pain Alcohol use Anemia Anxiety Back pain Bronchitis Depression Dietary restriction Easy bruising History of echocardiogram History of edema History of IBS History of irregular heartbeat Hypertension Hypoglycemia Kidney disease Kidney stones Migraines Restless legs Seizures Shortness of breath on exertion Sleep apnea Wears glasses Home Medications albuterol sulfate 90 mcg/actuation aerosol inhaler (Ventolin HFA) 1 - 2 puff inhalation Q6H PRN PRN Asthma 03/22/13 [History Last Taken 05/24/14 08:49] promethazine 25 mg tablet 25 mg PO QHS PRN Nausea 02/28/20 [History Last Taken 05/30/21] trazodone 150 mg PO/SL QHS 12/31/20 [History Last Taken 06/05/21] ondansetron 4 mg disintegrating tablet 4 mg PO Q8H PRN nausea and vomiting #10 tabs 04/17/21 [Rx Last Taken 06/06/21] lorazepam 0.5 mg tablet 0.5 mg PO DAILY PRN PRN Anxiety 06/06/21 [History Last Taken 05/23/21] sertraline 100 mg tablet 150 mg PO DAILY 06/06/21 [History Last Taken 06/06/21] tizanidine 2 mg capsule 4 mg PO QHS muscle spasm 06/06/21 [History Last Taken 06/05/21] pantoprazole 40 mg tablet,delayed release 40 mg PO DAILY #30 tabs 10/15/21 [Rx Last Taken Unknown] oxycodone-acetaminophen 5 mg-325 mg tablet (Percocet) 1 tab PO Q6H PRN pain 3 days #10 tabs 10/20/21 [Rx Last Taken Unknown] sucralfate 100 mg/mL oral suspension 10 ml PO Q6H #400 mL 10/20/21 [Rx Last Taken Unknown] diphenhydramine 25 mg-acetaminophen 500 mg tablet (Tylenol PM Extra Strength) 1 tab PO QHS 10/22/21 [History Last Taken Unknown] potassium chloride 20 mEq tablet,extended release 40 meq PO DAILY 10/22/21 [History Last Taken Unknown] 17-iron(35 mg-5 mg)-folic acid 1.2 mg-fish oil 400 mg capsule 1 cap PO DAILY 10/22/21 [History Last Taken Unknown] esomeprazole magnesium 20 mg capsule,delayed release (Nexium 24HR) 20 mg PO DAILY 10/25/21 [History Last Taken Unknown] Allergy/AdvReac Type Severity Reaction Status Date / Time codeine Allergy Hives Verified 12/02/21 07:49 metronidazole [From Flagyl] Allergy Shortness Verified 12/02/21 07:49 of breath morphine Allergy Hives Verified 12/02/21 07:49 ondansetron [From Zofran] Allergy Hives Verified 12/02/21 07:49 shellfish derived Allergy Angioedema Verified 12/02/21 07:49 topiramate [From Topamax] Allergy Other Verified 12/02/21 07:49 adhesive AdvReac Rash Verified 12/02/21 07:49 NSAIDS (Non-Steroidal AdvReac PT UNSURE Verified 12/02/21 07:49 Anti-Inflamma OF REACTION Family History Father No cardiac disease Mother No cardiac disease Surgical History Hx of laparoscopy Previous section S/P breast lumpectomy S/P removal of right ovary S/P tonsillectomy Social History household members: spouse Smoking Status: Never smoker alcohol intake: never substance use type: does not use ROS ROS ED Constitutional Constitutional ED: Denies chills or fever(s) Eyes Eyes: Denies change in vision or discharge from eye(s) ENT ENT ED: Denies discharge from eye(s), rhinorrhea or sore throat Cardiovascular Cardiovascular: Denies chest pain Respiratory/Chest Respiratory/Chest: Denies cough or dyspnea Gastrointestinal Gastrointestinal: Denies abdominal pain, nausea or vomiting Genitourinary Genitourinary ED: Denies dysuria Musculoskeletal Musculoskeletal: Reports extremity pain; Denies back pain Integumentary Denies Abrasions or rash Neurologic Neurologic: Denies headache(s), paresthesias or weakness Psychiatric Psychiatric: Denies anxiety or depression Allergic/Immunologic Allergic/Immunologic ED: Denies lip swelling or urticaria EXAM Physical Exam Const Vital Signs: 12/02/21 07:47 Temperature 97.6 F L Temperature Source Temporal Pulse Rate 79 Respiratory Rate 16 Blood Pressure 117/69 Blood Pressure Mean 85 Pulse Ox 98 Oxygen Delivery Method Room Air Positive well nourished and well developed General Appearance ED: well developed HEENT Reports normocephalic and head/scalp atraumatic Eyes PERRL and EOMs intact bilaterally Neck supple Chest Wall inspection of chest normal and palpation of chest normal Resp normal respiratory effort and clear to auscultation bilaterally Cardio regular rate and regular rhythm GI normal to inspection, nondistended, normoactive bowel sounds Palpation: soft Extremity Extremity Narrative: Tenderness palpation along the lateral malleolus of the right ankle and onto the right proximal lateral foot. Minimal edema noted. Normal pulses and good cap refill distally. No tenderness at the knee or proximal fibula. Neuro oriented x3 and no sensory deficits noted Sensorium / Orientation: alert Psych mental status grossly normal Skin no rashes or lesions noted MDM MDM MDM Narrative Medical decision making narrative: Patient given Tylenol for pain. Ankle and foot x-rays obtained. Treatment and Re-Evaluation Narrative: Right foot and ankle x-rays per my interpretation showed no evidence of acute fracture. Patient's physical exam findings and symptoms are consistent with a sprain. She has tenderness along the ATFL. She will be given a stirrup splint. She does not feel as if she needs crutches. She be referred to orthopedics for follow-up if not improving. Discharge Plan Triage Chief Complaint: Lower Extremity Injury ED Provider: Cassy Rodriguez Dx/Rx/DC Orders Clinical Impression: Right ankle sprain Instructions: ED Ankle Sprain (Adult) Prescriptions: No Action pantoprazole 40 mg tablet,delayed release (DR/EC) 40 mg PO DAILY Qty: 30 3RF albuterol sulfate [Ventolin HFA] 1 INHALER inhaler 1 - 2 puff inhalation Q6H PRN PRN (Reason: Asthma) promethazine 25 MG tablet 25 mg PO QHS PRN (Reason: Nausea) trazodone 150 mg PO/SL QHS ondansetron 4 mg tablet,disintegrating 4 mg PO Q8H PRN (Reason: nausea and vomiting) Qty: 10 0RF sertraline 100 mg tablet 150 mg PO DAILY lorazepam 0.5 mg Tablet 0.5 mg PO DAILY PRN PRN (Reason: Anxiety) tizanidine 2 mg Capsule 4 mg PO QHS diphenhydramine-acetaminophen [Tylenol PM Extra Strength] 25-500 mg Tablet 1 tab PO QHS Rx Instructions: administer while awake prenat vit [id number]-om3,6 35-5-1.2-400 mg Capsule 1 cap PO DAILY potassium chloride 20 mEq Tablet Extended Release 40 meq PO DAILY sucralfate 100 mg/mL suspension 10 ml PO Q6H Qty: 400 0RF oxycodone-acetaminophen [Percocet] 5-325 mg tablet 1 tab PO Q6H PRN (Reason: pain) 3 Days Qty: 10 0RF esomeprazole magnesium [Nexium 24HR] 20 mg Capsule,Delayed Release(Dr/Ec) 20 mg PO DAILY Primary Care Provider: [facility] Doctor,Out of Referrals: Jack Lui DO [Med Staff - Active Staff] - As Needed [facility] Doctor,Out of [Primary Care Provider] - Disposition Disposition: Home, Self Care
[2021-12-02] MEDS: Acetaminophen 500 MG Tablet 1000 MG PO (08:27)
== END 2021-12-02 08:31 | disposition home or self-care (01) ==
LOC: ED 08:23
PROVIDERS: Emergency Provider Emergency Medicine; Visit Provider Emergency Medicine
DX: S93.401A Sprain of unspecified ligament of right ankle, initial encounter (principal); I10 Essential (primary) hypertension; X50.1XXA Overexertion from prolonged static or awkward postures, initial encounter; Y93.01 Activity, walking, marching and hiking
CPT/HCPCS: 73610; 73630; 99283

== ENCOUNTER 2022-01-06 07:02 | Emergency (ER) | payer BC, SELFPAY ==
[2022-01-06 07:03] VITALS: BP 137/122; PULSE 108; RESP 21; TEMP 36.6; O2SAT 100; BMI 24.8
--- NOTE | 2022-01-06 07:15 | EKG12_ITS ---
Test Reason : CP Blood Pressure : / mmHG Vent. Rate : 087 BPM Atrial Rate : 087 BPM P-R Int : 150 ms QRS Dur : 070 ms QT Int : 372 ms P-R-T Axes : 069 053 059 degrees QTc Int : 447 ms Normal sinus rhythm Normal ECG Confirmed by KARINA COFFEY, HAY ([id number]), greeting card editor MESHA FREEMAN ([id number]) on 01/07/2022 8:27:12 AM Referred By: PL Confirmed By:HAY COLLINS MD
--- NOTE | 2022-01-06 07:17 | ED.VIS.CHEST ---
HPI History of Present Illness Chief Complaint: Chest Pain Informant: patient Onset/Context/Timing Onset: Today Timing: Continuous Quality: Positive for Burning and Sharp Location: Left Parasternal Current Severity: Mild Maximum Severity: Mild Narrative Narrative: Patient presents via EMS secondary to chest pain. She states she woke this morning with pain in the left upper abdomen and epigastric region that radiates up the left side of her chest into her left shoulder. She does have some pain into her left side of her neck. Patient states that yesterday was the 1 year anniversary of her child's and she believes a lot of this is anxiety related. She has Ativan at home to use as needed but states she has not been using it recently. She also has a history of gastritis but is not currently on her antacids. She does report recent URI symptoms with cough and congestion along with wheezing. She has not had fever or chills. [facility] Medical History Abdominal pain Alcohol use Anemia Anxiety Back pain Bronchitis Depression Dietary restriction Dysautonomia-like disorder Easy bruising History of echocardiogram History of edema History of IBS History of irregular heartbeat Hypertension Hypoglycemia Kidney disease Kidney stones Migraines Nephrolithiasis Restless legs Seizures Shortness of breath on exertion Sleep apnea Wears glasses Home Medications albuterol sulfate 90 mcg/actuation aerosol inhaler (Ventolin HFA) 1 - 2 puff inhalation Q6H PRN PRN Asthma 03/22/13 [History Last Taken 05/24/14 08:49] promethazine 25 mg tablet 25 mg PO QHS PRN Nausea 02/28/20 [History Last Taken 05/30/21] trazodone 150 mg PO/SL QHS 12/31/20 [History Last Taken 06/05/21] ondansetron 4 mg disintegrating tablet 4 mg PO Q8H PRN nausea and vomiting #10 tabs 04/17/21 [Rx Last Taken 06/06/21] lorazepam 0.5 mg tablet 0.5 mg PO DAILY PRN PRN Anxiety 06/06/21 [History Last Taken 05/23/21] sertraline 100 mg tablet 150 mg PO DAILY 06/06/21 [History Last Taken 06/06/21] tizanidine 2 mg capsule 4 mg PO QHS muscle spasm 06/06/21 [History Last Taken 06/05/21] pantoprazole 40 mg tablet,delayed release 40 mg PO DAILY #30 tabs 10/15/21 [Rx Last Taken Unknown] oxycodone-acetaminophen 5 mg-325 mg tablet (Percocet) 1 tab PO Q6H PRN pain 3 days #10 tabs 10/20/21 [Rx Last Taken Unknown] sucralfate 100 mg/mL oral suspension 10 ml PO Q6H #400 mL 10/20/21 [Rx Last Taken Unknown] diphenhydramine 25 mg-acetaminophen 500 mg tablet (Tylenol PM Extra Strength) 1 tab PO QHS 10/22/21 [History Last Taken Unknown] potassium chloride 20 mEq tablet,extended release 40 meq PO DAILY 10/22/21 [History Last Taken Unknown] 17-iron(35 mg-5 mg)-folic acid 1.2 mg-fish oil 400 mg capsule 1 cap PO DAILY 10/22/21 [History Last Taken Unknown] esomeprazole magnesium 20 mg capsule,delayed release (Nexium 24HR) 20 mg PO DAILY 10/25/21 [History Last Taken Unknown] lorazepam 0.5 mg tablet (Ativan) 0.5 mg PO TID PRN anxiety #14 tabs 01/06/22 [Rx Last Taken Unknown] pantoprazole 20 mg tablet,delayed release (Protonix) 20 mg PO DAILY #30 tabs 01/06/22 [Rx Last Taken Unknown] Allergy/AdvReac Type Severity Reaction Status Date / Time baclofen Allergy Severe incontinenc Verified 01/06/22 07:09 e codeine Allergy Hives Verified 01/06/22 07:09 metronidazole [From Flagyl] Allergy Shortness Verified 01/06/22 07:09 of breath morphine Allergy Hives Verified 01/06/22 07:09 ondansetron [From Zofran] Allergy Hives Verified 01/06/22 07:09 shellfish derived Allergy Angioedema Verified 01/06/22 07:09 topiramate [From Topamax] Allergy Other Verified 01/06/22 07:09 tramadol AdvReac Severe seizures Verified 01/06/22 07:09 adhesive AdvReac Rash Verified 01/06/22 07:09 NSAIDS (Non-Steroidal AdvReac PT UNSURE Verified 01/06/22 07:09 Anti-Inflamma OF REACTION Family History Father No cardiac disease Mother No cardiac disease Other Arthritis Asthma Blood clot in vein Bowel disease Breast cancer CVA (cerebral vascular accident) Cervical cancer Depression Diabetes High cholesterol Hypertension Seizures Suicidal ideation Surgical History Hx of laparoscopy Previous section S/P breast lumpectomy S/P removal of right ovary S/P tonsillectomy Social History household members: spouse Smoking Status: Never smoker alcohol intake: current alcohol intake frequency: holidays/special occasions only substance use type: does not use what type of physical activity do you participate in: none ROS ROS ED Constitutional Constitutional ED: Denies chills or fever(s) Eyes Eyes: Denies change in vision or discharge from eye(s) ENT ENT ED: Denies discharge from eye(s), rhinorrhea or sore throat Cardiovascular Cardiovascular: Reports chest pain; Denies palpitations Respiratory/Chest Respiratory/Chest: Reports cough; Denies dyspnea Gastrointestinal Gastrointestinal: Denies abdominal pain, nausea or vomiting Genitourinary Genitourinary ED: Denies dysuria Musculoskeletal Musculoskeletal: Denies back pain or extremity pain Integumentary Denies Abrasions or rash Neurologic Neurologic: Denies headache(s) or weakness Psychiatric Psychiatric: Reports anxiety and depression Allergic/Immunologic Allergic/Immunologic ED: Denies lip swelling or urticaria EXAM Physical Exam Const Vital Signs: 01/06/22 07:03 01/06/22 08:18 Temperature 97.9 F Temperature Source Oral Pulse Rate 108 H 78 Respiratory Rate 21 H 14 Blood Pressure 137/122 H 104/75 Blood Pressure Mean 127 84 Pulse Ox 100 98 Oxygen Delivery Method Room Air Room Air Positive well nourished and well developed General Appearance ED: well developed HEENT Reports normocephalic and head/scalp atraumatic Eyes PERRL and EOMs intact bilaterally Neck supple Chest Wall inspection of chest normal and palpation of chest normal Resp normal respiratory effort and clear to auscultation bilaterally Cardio regular rate and regular rhythm GI normal to inspection, nondistended, normoactive bowel sounds Palpation: soft Extremity normal to inspection Neuro oriented x3 and no sensory deficits noted Sensorium / Orientation: alert Motor Exam: strength 5/5 throughout Psych mental status grossly normal Skin no rashes or lesions noted Heart Score History: Slightly/Non-Suspicious ECG: Normal Age: </= 45 years Risk Factors: No Risk Factors Troponin: </= Normal Limit Score: 0 MDM MDM MDM Narrative Medical decision making narrative: Patient placed on engine monitor. EKG, chest x-ray, lab work obtained. Patient given dose of Protonix and Ativan. Lab Data Attestation: I reviewed the patient's lab results. Labs: Laboratory Results - last 24 hr 01/06/22 01/06/22 06:52 06:52 WBC 7.3 RBC 4.25 Hgb 12.8 Hct 40.4 MCV 95.1 MCH 30.1 MCHC 31.7 L RDW Std Deviation 47.7 H RDW Coeff of [place] 13.6 Plt Count 225 MPV 10.3 Immature Gran % (Auto) 0.400 Neut % (Auto) 50.1 Lymph % (Auto) 40.1 [place] % (Auto) 6.5 Eos % (Auto) 2.2 Baso % (Auto) 0.7 Absolute Neuts (auto) 3.7 Absolute Lymphs (auto) 2.94 Nucleated RBC % 0 Sodium 140 Potassium 3.4 L Chloride 106 Carbon Dioxide 25.0 Anion Gap 9 BUN 16 Creatinine 0.97 Estim Creat Clear Calc 69.90 Est GFR (MDRD) Af Amer 84 Est GFR (MDRD) Non-Af 70 BUN/Creatinine Ratio 16.5 Glucose 90 Calcium 9.1 Troponin I High Sens 4 Radiography Chest X-Ray - ED: 1 View, Read by ED Physician, Normal, Heart, Lungs, Mediastinum and No Infiltrates Diagnostic Testing: Clinical Impression(s) from Imaging Studies Chest X-Ray 01/06/22 07:20 IMPRESSION: No acute cardiopulmonary abnormality. No interval change Electronically Signed: Godwin Villalobos MD at 7:45 EST , EKG Initial EKG: Attestation: I personally reviewed and interpreted this EKG as follows: Interpretation: Sinus Rhythm (Sinus 87 with no acute ischemia.) Treatment and Re-Evaluation Narrative: Repeat evaluation patient resting comfortably. She states she does feel improved. EKG reveals sinus rhythm with no acute ischemia. Chest x-ray per my interpretation reveals no focal infiltrate. Radiology interpretation reviewed and agrees. Lab work remarkable only for minimally low potassium at 3.4. Troponin is normal. I do believe the patient symptoms are secondary to anxiety given her increased stress with the anniversary of her child's . She now tells me she does not have any Ativan at home. I will write her prescriptions for both Ativan and Protonix. Return instructions given. Discharge Plan Triage Chief Complaint: Chest Pain ED Provider: Cassy Rodriguez Dx/Rx/DC Orders Clinical Impression: Anxiety, Chest pain, non-cardiac Instructions: ED Anxiety Reaction, ED Chest Pain, Noncardiac Prescriptions: New lorazepam [Ativan] 0.5 mg tablet 0.5 mg PO TID PRN (Reason: anxiety) Qty: 14 0RF pantoprazole [Protonix] 20 mg tablet,delayed release (DR/EC) 20 mg PO DAILY Qty: 30 0RF No Action pantoprazole 40 mg tablet,delayed release (DR/EC) 40 mg PO DAILY Qty: 30 3RF albuterol sulfate [Ventolin HFA] 1 INHALER inhaler 1 - 2 puff inhalation Q6H PRN PRN (Reason: Asthma) promethazine 25 MG tablet 25 mg PO QHS PRN (Reason: Nausea) trazodone 150 mg PO/SL QHS ondansetron 4 mg tablet,disintegrating 4 mg PO Q8H PRN (Reason: nausea and vomiting) Qty: 10 0RF sertraline 100 mg tablet 150 mg PO DAILY lorazepam 0.5 mg Tablet 0.5 mg PO DAILY PRN PRN (Reason: Anxiety) tizanidine 2 mg Capsule 4 mg PO QHS diphenhydramine-acetaminophen [Tylenol PM Extra Strength] 25-500 mg Tablet 1 tab PO QHS Rx Instructions: administer while awake prenat vit [id number],6 35-5-1.2-400 mg Capsule 1 cap PO DAILY potassium chloride 20 mEq Tablet Extended Release 40 meq PO DAILY sucralfate 100 mg/mL suspension 10 ml PO Q6H Qty: 400 0RF oxycodone-acetaminophen [Percocet] 5-325 mg tablet 1 tab PO Q6H PRN (Reason: pain) 3 Days Qty: 10 0RF esomeprazole magnesium [Nexium 24HR] 20 mg Capsule,Delayed Release(Dr/Ec) 20 mg PO DAILY Primary Care Provider: BALBIR SANDERSON Referrals: BALBIR SANDERSON [Other] - 1-2 Weeks Disposition Disposition: Home, Self Care
--- NOTE | 2022-01-06 07:20 | RAD_ITS ---
EXAM: XR CHEST, 1 VIEW CLINICAL INDICATION: sob,cp TECHNIQUE: Frontal view of the chest. This report was created using [employer] report generation technology. COMPARISON: XR Chest dated october 25 2021 FINDINGS: LUNGS AND PLEURAL SPACES: Normal. No consolidation or edema. No pneumothorax. No effusion. HEART: Normal heart size. MEDIASTINUM: No mediastinal or hilar mass. BONES/JOINTS: No acute abnormality. SOFT TISSUES: Normal. RAD/Chest 1 View (Portable) IMPRESSION: No acute cardiopulmonary abnormality. No interval change Electronically Signed: Godwin Villalobos MD at 7:45 EST ,
[2022-01-06 07:28] LABS: Absolute Lymphocyte Count 2.94 X10^3/uL (0.83-4.51); Absolute Neutrophil Count 3.7 X10^3/uL (2.0-7.7); Basophil# 0.05 X10^3/uL; Basophil% 0.7 % (0-1); Eosinophil# 0.16 X10^3/uL; Eosinophils% 2.2 % (0-5); Hematocrit 40.4 % (37-47); Hemoglobin 12.8 g/dL (12.0-15.0); Lymphocyte # 2.94 X10^3/ul (0.83-4.51); Lymphocyte % 40.1 % (19-41); Mean Corp Hgb Conc 31.7 g/dL (32-36); Mean Corpuscular Hgb 30.1 pg (27.0-32.0); Mean Corpuscular Volume 95.1 fL (81-99); Mean Platelet Vol. 10.3 fl (6.2-12.0); Monocyte# 0.48 X10^3/uL; Monocyte% 6.5 % (0-10); NRBC Flagged by Analyzer 0 % (0-5); Neutrophil # 3.68 X10^3/uL (2.7-7.7); Neutrophil % 50.1 % (47-70); Platelet Count 225 K/mm3 (150-450); RBC Distribution Width CV 13.6 % (11.6-14.6); RBC Distribution Width SD 47.7 fl (35.1-43.9); Red Blood Count 4.25 M/mm3 (4.2-5.4); White Blood Count 7.3 K/mm3 (4.4-11.0)
[2022-01-06 07:48] LABS: Anion Gap 9 (5-15); BUN 16 mg/dL (7-18); BUN/Creat Ratio 16.5 RATIO (10-20); Calcium,Total 9.1 mg/dL (8.5-10.1); Chloride 106 mmol/L (98-107); Creatinine, Serum 0.97 mg/dL (0.55-1.02); EST Glomerular Filtration Rate 70 mL/min (>60); Est Glom Filt Rate - Afr Amer 84 mL/min (>60); Glucose 90 mg/dL (74-106); Potassium 3.4 mmol/L (3.5-5.1); Sodium Level 140 mmol/L (136-145); Troponin-I HS 4 pg/mL (3.0-54.0)
[2022-01-06] MEDS: 0.9% Normal Saline 1,000 ML 150 ML IV (08:10)
[2022-01-06] MEDS: LORazepam 2 MG/ML Syringe 0.5 MG IV (08:11)
[2022-01-06 08:18] VITALS: BP 104/75; PULSE 78; RESP 14; O2SAT 98
[2022-01-06 09:42] VITALS: BP 104/74; PULSE 95; RESP 16; O2SAT 99
== END 2022-01-06 09:43 | disposition home or self-care (01) ==
PROVIDERS: Emergency Provider Emergency Medicine; Visit Provider Emergency Medicine
DX: F41.9 Anxiety disorder, unspecified (principal); R07.89 Other chest pain; I10 Essential (primary) hypertension
CPT/HCPCS: 71045; 80048; 84484; 85025; 93005; 99285; J7030; A4216

== ENCOUNTER → 2022-02-20 | Outpatient (CLI) | payer BC, SELFPAY ==
[2022-02-20 10:17] LABS: Absolute Lymphocyte Count 1.98 X10^3/uL (0.83-4.51); Absolute Neutrophil Count 4.4 X10^3/uL (2.0-7.7); Basophil# 0.05 X10^3/uL; Basophil% 0.7 % (0-1); Eosinophil# 0.11 X10^3/uL; Eosinophils% 1.6 % (0-5); Hematocrit 38.9 % (37-47); Hemoglobin 11.9 g/dL (12.0-15.0); Lymphocyte # 1.98 X10^3/ul (0.83-4.51); Mean Corp Hgb Conc 30.6 g/dL (32-36); Mean Corpuscular Hgb 29.7 pg (27.0-32.0); Mean Platelet Vol. 10.3 fl (6.2-12.0); Monocyte# 0.54 X10^3/uL; Monocyte% 7.6 % (0-10); NRBC Flagged by Analyzer 0 % (0-5); Neutrophil # 4.36 X10^3/uL (2.7-7.7); Neutrophil % 61.8 % (47-70); Platelet Count 228 K/mm3 (150-450); RBC Distribution Width CV 12.9 % (11.6-14.6); RBC Distribution Width SD 46.2 fl (35.1-43.9); Red Blood Count 4.01 M/mm3 (4.2-5.4); White Blood Count 7.1 K/mm3 (4.4-11.0)
[2022-02-20 11:04] LABS: hCG Titer Quant., Serum < 1 mIU/mL (1-3)
[2022-02-20 11:29] LABS: ALB/GLOB Ratio 1.1 RATIO (0.9-2.4); AST(SGOT) 15 U/L (15-37); Alanine Aminotransfer ALT/SGPT 21 U/L (13-56); Alkaline Phosphatase 66 U/L (45-117); Anion Gap 3 (5-15); BUN 16 mg/dL (7-18); BUN/Creat Ratio 14.5 RATIO (10-20); Calcium,Total 9.2 mg/dL (8.5-10.1); Chloride 110 mmol/L (98-107); EST Glomerular Filtration Rate 60 mL/min (>60); Est Glom Filt Rate - Afr Amer 73 mL/min (>60); Follicle Stimulating Hormone 21.9 mIU/mL; Globulin 3.8 g/dL (2.2-4.2); Glucose 77 mg/dL (74-106); Luteinizing Hormone 10.2 mIU/mL; Potassium 3.7 mmol/L (3.5-5.1); Protein, Total 7.8 g/dL (6.4-8.2); Sodium Level 140 mmol/L (136-145); T4 Free Direct 0.83 ng/dL (0.76-1.46); Thyroid Stim Hormone (TSH) 0.74 uIU/mL (0.358-3.74)
[2022-02-28 08:09] LABS: Testosterone, Free 0.15 ng/dL (0.10-0.85); Testosterone, Total 17 ng/dL (8-60)
[2022-02-28 16:06] LABS: Testosterone, % Free 0.86 % (0.50-2.80)
== END | disposition home or self-care (01) ==
PROVIDERS: Visit Provider Obstetrics & Gynecology
DX: R10.2 Pelvic and perineal pain (principal)
CPT/HCPCS: 36415; 80053; 82670; 83001; 83002; 84402; 84403; 84439; 84443; 84702; 85025

== ENCOUNTER 2022-02-24 10:33 | Emergency (ER) | payer BC, SELFPAY ==
[2022-02-24 10:34] VITALS: BP 120/73; PULSE 102; RESP 16; TEMP 36.6; O2SAT 99; BMI 24.0
--- NOTE | 2022-02-24 10:57 | CT_ITS ---
STUDY: CT ABDOMEN AND PELVIS WITHOUT CONTRAST REASON FOR EXAM: Female, 36 years old. Kidney Stone. Right flank pain. RADIATION DOSAGE (If Supplied By Facility): CTDIvol = ( 6.45 ) mGy, DLP = ( 311.06 ) mGycm TECHNIQUE: Transaxial images were obtained from the dome of the diaphragm to the symphysis pubis without oral contrast, and without intravenous contrast. Sagittal and coronal images were reconstructed. Individualized dose optimization techniques were used for this CT. COMPARISON: Comparison is made with prior examination dated 10/20/2021. FINDINGS: The visualized lung bases are unremarkable. The visualized portions of the heart are within normal limits. Normal liver. Normal gallbladder and extrahepatic biliary system. Normal spleen. Normal pancreas. Normal bilateral adrenal glands. Normal right kidney. Normal left kidney. Normal visualized stomach. Normal small intestine. Normal colon. The appendix is visualized and appears normal. Normal abdominal aorta. Normal inferior vena cava. Normal retroperitoneum. Normal urinary bladder. Normal abdominal wall. Normal osseous structures. CT/Abdomen/Pelvis without Cont IMPRESSION: Normal unenhanced CT of the abdomen and pelvis. Electronically Signed: Gino Morgan MD at 11:54 EST ,
[2022-02-24] MEDS: proMETHazine 25 MG Tablet 12.5 MG PO (11:12)
[2022-02-24] MEDS: HYDROmorphone 0.5 MG/0.5 ML SYRINGE IV (11:13)
[2022-02-24] MEDS: 0.9% Normal Saline 1,000 ML 250 ML IV (11:15)
[2022-02-24 11:22] LABS: Bacteria 0 SEEN /hpf (None Seen); Mucous, Urine 0 SEEN /hpf (<or=2+); Red Blood Cells-Urine 0 SEEN /hpf (0-5); Squamous Epithelial Cells - UA 0 SEEN /hpf (5-10); White Blood Cells 0 SEEN /hpf (0-5)
[2022-02-24 11:31] LABS: Absolute Lymphocyte Count 1.67 X10^3/uL (0.83-4.51); Absolute Neutrophil Count 1.9 X10^3/uL (2.0-7.7); Basophil# 0.03 X10^3/uL; Basophil% 0.7 % (0-1); Eosinophil# 0.12 X10^3/uL; Eosinophils% 2.9 % (0-5); Lymphocyte # 1.67 X10^3/ul (0.83-4.51); Lymphocyte % 40.9 % (19-41); Mean Corpuscular Hgb 30.4 pg (27.0-32.0); Mean Corpuscular Volume 98.1 fL (81-99); Mean Platelet Vol. 10.4 fl (6.2-12.0); Monocyte# 0.37 X10^3/uL; Monocyte% 9.1 % (0-10); NRBC Flagged by Analyzer 0 % (0-5); Neutrophil # 1.87 X10^3/uL (2.7-7.7); Neutrophil % 45.9 % (47-70); Platelet Count 205 K/mm3 (150-450); RBC Distribution Width CV 13.2 % (11.6-14.6); RBC Distribution Width SD 47.5 fl (35.1-43.9); Red Blood Count 4.28 M/mm3 (4.2-5.4); White Blood Count 4.1 K/mm3 (4.4-11.0)
[2022-02-24 11:37] LABS: Color, Urine Yellow (Yellow); Glucose, Dipstick Normal (Normal); Ketone-Dipstick Negative (Negative); Leukocyte Esterase-Dipstick 100 /ul (Negative); Nitrite-Dipstick Positive (Negative); Occult Blood-Urine 250 /ul (Negative); Protein-Dipstick 100 mg/dl (Negative); Urine Bilirubin Dipstick Negative (Negative); Urine Clarity Sl. Cloudy (Clear); Urine Urobilinogen Normal (Normal)
[2022-02-24 11:49] LABS: Anion Gap 9 (5-15); BUN 15 mg/dL (7-18); BUN/Creat Ratio 14.4 RATIO (10-20); Calcium,Total 8.8 mg/dL (8.5-10.1); Chloride 108 mmol/L (98-107); Creatinine, Serum 1.04 mg/dL (0.55-1.02); EST Glomerular Filtration Rate 64 mL/min (>60); Est Glom Filt Rate - Afr Amer 77 mL/min (>60); Glucose 73 mg/dL (74-106); Potassium 3.8 mmol/L (3.5-5.1); Sodium Level 142 mmol/L (136-145)
--- NOTE | 2022-02-24 11:49 | EX.ED.DYSGE1 ---
HPI History of Present Illness Chief Complaint: Abd Pain Detail of Chief Complaint: Right-sided flank and groin pain with urinary symptoms and hematuria Informant: patient Onset/Context/Timing Onset: Days (Onset of urinary symptoms Thursday.) Context: Sudden Onset Timing: Continuous and Waxes and wanes Quality: Pain Location: Right foot length radiating to right groin Current Severity: Moderate Maximum Severity: Severe Worsened by: Nothing specific Relieved by: Nothing Associated Symptoms Associated Symptoms: Nausea, dysuria, frequency and hematuria Narrative Narrative: Patient is a 36-year-old G0, P1 AB 1 female whose last normal menstrual period was 1 week ago. 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 Ultrasound was performed and revealed a left ovarian cyst. This was performed at outside facility. There was no abnormality on the right side to explain her discomfort. She did not have urinary symptoms at that time. She does have history of renal/ureteral lithiasis. She does report nausea without vomiting or diarrhea. She denies fever but did complain of chills. She denies intolerance to greasy or fried foods. She denies right upper quadrant or left upper quadrant pain. There is no history of trauma. Prior similar symptoms: No Recent Illness/Hospitalization: Yes [facility] Medical History Abdominal pain Alcohol use Anemia Anxiety Back pain Bronchitis Depression Dietary restriction Dysautonomia-like disorder Easy bruising History of echocardiogram History of edema History of IBS History of irregular heartbeat Hypertension Hypoglycemia Kidney disease Kidney stones Migraines Nephrolithiasis Restless legs Seizures Shortness of breath on exertion Sleep apnea Wears glasses Home Medications albuterol sulfate 90 mcg/actuation aerosol inhaler (Ventolin HFA) 1 - 2 puff inhalation Q6H PRN PRN Asthma 03/22/13 [History Last Taken 05/24/14 08:49] promethazine 25 mg tablet 25 mg PO QHS PRN Nausea 02/28/20 [History Last Taken 05/30/21] trazodone 150 mg PO/SL QHS 12/31/20 [History Last Taken 06/05/21] ondansetron 4 mg disintegrating tablet 4 mg PO Q8H PRN nausea and vomiting #10 tabs 04/17/21 [Rx Last Taken 06/06/21] lorazepam 0.5 mg tablet 0.5 mg PO DAILY PRN PRN Anxiety 06/06/21 [History Last Taken 05/23/21] sertraline 100 mg tablet 150 mg PO DAILY 06/06/21 [History Last Taken 06/06/21] tizanidine 2 mg capsule 4 mg PO QHS muscle spasm 06/06/21 [History Last Taken 06/05/21] pantoprazole 40 mg tablet,delayed release 40 mg PO DAILY #30 tabs 10/15/21 [Rx Last Taken Unknown] oxycodone-acetaminophen 5 mg-325 mg tablet (Percocet) 1 tab PO Q6H PRN pain 3 days #10 tabs 10/20/21 [Rx Last Taken Unknown] sucralfate 100 mg/mL oral suspension 10 ml PO Q6H #400 mL 10/20/21 [Rx Last Taken Unknown] diphenhydramine 25 mg-acetaminophen 500 mg tablet (Tylenol PM Extra Strength) 1 tab PO QHS 10/22/21 [History Last Taken Unknown] potassium chloride 20 mEq tablet,extended release 40 meq PO DAILY 10/22/21 [History Last Taken Unknown] 17-iron(35 mg-5 mg)-folic acid 1.2 mg-fish oil 400 mg capsule 1 cap PO DAILY 10/22/21 [History Last Taken Unknown] esomeprazole magnesium 20 mg capsule,delayed release (Nexium 24HR) 20 mg PO DAILY 10/25/21 [History Last Taken Unknown] lorazepam 0.5 mg tablet (Ativan) 0.5 mg PO TID PRN anxiety #14 tabs 01/06/22 [Rx Last Taken Unknown] pantoprazole 20 mg tablet,delayed release (Protonix) 20 mg PO DAILY #30 tabs 01/06/22 [Rx Last Taken Unknown] sulfamethoxazole 800 mg-trimethoprim 160 mg tablet 1 tab PO BID #6 TABLETS 02/24/22 [Rx Last Taken Unknown] Allergy/AdvReac Type Severity Reaction Status Date / Time baclofen Allergy Severe incontinenc Verified 01/06/22 07:09 e codeine Allergy Hives Verified 01/06/22 07:09 metronidazole [From Flagyl] Allergy Shortness Verified 01/06/22 07:09 of breath morphine Allergy Hives Verified 01/06/22 07:09 ondansetron [From Zofran] Allergy Hives Verified 01/06/22 07:09 shellfish derived Allergy Angioedema Verified 01/06/22 07:09 topiramate [From Topamax] Allergy Other Verified 01/06/22 07:09 tramadol AdvReac Severe seizures Verified 01/06/22 07:09 adhesive AdvReac Rash Verified 01/06/22 07:09 NSAIDS (Non-Steroidal AdvReac PT UNSURE Verified 01/06/22 07:09 Anti-Inflamma OF REACTION Family History Father No cardiac disease Mother No cardiac disease Other Arthritis Asthma Blood clot in vein Bowel disease Breast cancer CVA (cerebral vascular accident) Cervical cancer Depression Diabetes High cholesterol Hypertension Seizures Suicidal ideation Surgical History Hx of laparoscopy Previous section S/P breast lumpectomy S/P removal of right ovary S/P tonsillectomy Social History household members: spouse Smoking Status: Never smoker alcohol intake: current alcohol intake frequency: holidays/special occasions only substance use type: does not use what type of physical activity do you participate in: none ROS ROS ED Constitutional Constitutional ED: Reports chills; Denies fever(s) or sweats Eyes Eyes: Denies blurry vision or change in vision ENT ENT ED: Denies ear pain, rhinorrhea or sore throat Cardiovascular Cardiovascular: Denies chest pain or palpitations Respiratory/Chest Respiratory/Chest: Denies cough, dyspnea or dyspnea on exertion Gastrointestinal Gastrointestinal: Reports abdominal pain and nausea; Denies constipation, diarrhea, melena or vomiting Genitourinary Genitourinary ED: Reports dysuria, hematuria, LMP (females 10-50) Details: Comment: (1 week ago.) and urinary frequency Musculoskeletal Musculoskeletal: Denies arthralgias, back pain, myalgias or neck pain Integumentary Denies abscess or Abrasions Neurologic Neurologic: Denies headache(s), paresthesias or weakness Psychiatric Psychiatric: Denies anxiety or depression Endocrine Endocrinology: Denies cold intolerance, heat intolerance, polydipsia or polyuria Hematologic/Lymphatic Hematologic/Lymphatic: Denies easy bleeding or easy bruising EXAM Physical Exam Const Vital Signs: 02/24/22 10:34 02/24/22 13:11 Temperature 97.9 F Temperature Source Temporal Pulse Rate 102 H 75 Respiratory Rate 16 16 Blood Pressure 120/73 122/77 H Blood Pressure Mean 88 92 Pulse Ox 99 99 Oxygen Delivery Method Room Air Positive well nourished and well developed Constitutional Narrative: Patient does appear uncomfortable. She is lying slightly on her left side. General Appearance ED: well developed and pallor HEENT Reports moist mucous membranes HEENT Narrative: Head is a true neck normocephalic. Ears normal. Nares patent. Teeth normal. Posterior pharynx normal. Eyes PERRL and EOMs intact bilaterally General Eye ED: Negative for pale conjunctiva or scleral icterus Neck no lymphadenopathy, supple and no JVD Resp normal respiratory effort and clear to auscultation bilaterally Cardio regular rate, regular rhythm, S1 normal heart sound, S2 normal heart sound and no murmurs GI normal to inspection, nondistended, normoactive bowel sounds, non-tender, non-distended and no masses; Negative for hepatosplenomegaly GI Narrative: Negative [place] sign. Back/Spine General Back: CVA tenderness right Thoracic Spine / Upper Back: Negative for thoracic spinal tenderness Lumbar Spine / Lower Back: Negative for lumbar spinal tenderness Extremity normal to inspection General Extremety ED: Negative for edema or tenderness General Extremity: Negative for edema Neuro oriented x3, CN's II-XII intact bilaterally and no sensory deficits noted Sensorium / Orientation: alert Motor Exam: strength 5/5 throughout Psych mental status grossly normal Skin no rashes or lesions noted, no wounds and skin turgor normal General Skin Exam: elasticity normal and pallor; Negative for jaundice MDM MDM MDM Narrative Medical decision making narrative: Differential diagnosis would include pyelonephritis, renal lithiasis with infection versus obstructing ureteral lithiasis with infection. Patient urine does not appear yellow as documented by the lab. It is red in color. It does appear slightly cloudy. This would raise concern for infection. Also obstructing stone. CBC was obtained assess white count differential. H&H to assess for anemia since she appears pale. Base metabolic panel to assess renal function. She states she has stage II kidney disease. Because patient reports stage II kidney disease she was not treated with IV Toradol. She reports allergy to codeine and morphine. She is had Dilaudid in the past. She was administered Dilaudid and because of her numerous allergies to antiemetics she was treated with p.o. Phenergan. CT of the abdomen pelvis without was ordered to evaluate for or obstructing stone. Clinically she has concerns for pyelonephritis. If urine culture comes back positive patient will need an additional 7 days of Bactrim if sensitive. Lab Data Attestation: I reviewed the patient's lab results. Lab results narrative: Patient is neutropenic. We will need to compare to prior. Basic metabolic panels are normal. Urine is slightly cloudy with occult blood leukoesterase and positive nitrites however the microscopic is normal. Urine is positive for protein, blood, leukoesterase and nitrites. There is no bacteria noted. This may be due to patient having frequent urination. Since she has urinary symptoms with positive nitrites urine culture was sent and she is given a dose of Rocephin. We will also prescribe short course of antibiotic. She has no allergies to antibiotics. Labs: Laboratory Results - last 24 hr 02/24/22 02/24/22 02/24/22 11:10 11:10 11:10 WBC 4.1 L RBC 4.28 Hgb 13.0 Hct 42.0 MCV 98.1 MCH 30.4 MCHC 31.0 L RDW Std Deviation 47.5 H RDW Coeff of [place] 13.2 Plt Count 205 MPV 10.4 Immature Gran % (Auto) 0.500 Neut % (Auto) 45.9 L Lymph % (Auto) 40.9 [place] % (Auto) 9.1 Eos % (Auto) 2.9 Baso % (Auto) 0.7 Absolute Neuts (auto) 1.9 L Absolute Lymphs (auto) 1.67 Nucleated RBC % 0 Sodium 142 Potassium 3.8 Chloride 108 H Carbon Dioxide 25.0 Anion Gap 9 BUN 15 Creatinine 1.04 H Estim Creat Clear Calc 65.20 Est GFR (MDRD) Af Amer 77 Est GFR (MDRD) Non-Af 64 BUN/Creatinine Ratio 14.4 Glucose 73 L Calcium 8.8 Urine Color Yellow Urine Clarity Sl. Cloudy Urine pH 6.0 Ur Specific [place] 1.020 Urine Protein 100 H Urine Glucose (UA) Normal Urine Ketones Negative Urine Occult Blood 250 H Urine Nitrite Positive H Urine Bilirubin Negative Urine Urobilinogen Normal Ur Leukocyte Esterase 100 H Urine RBC 0 SEEN Urine WBC 0 SEEN Ur Squamous Epith Cells 0 SEEN Urine Bacteria 0 SEEN Urine Mucus 0 SEEN Radiography Diagnostic Testing: Clinical Impression(s) from Imaging Studies Abdomen/Pelvis CT 02/24/22 10:57 IMPRESSION: Normal unenhanced CT of the abdomen and pelvis. Electronically Signed: Gino Morgan MD at 11:54 EST , Discharge Plan Triage Chief Complaint: Abd Pain ED Provider: Rosalio Hi Dx/Rx/DC Orders Clinical Impression: Acute right flank pain, Pelvic pain, Dysuria, History of renal calculi Instructions: ED Dysuria, Uncertain Cause (Adult), ED Flank Pain, Uncertain Cause Prescriptions: New sulfamethoxazole-trimethoprim [sulfamethoxazole-trimethoprim] 800-160 mg tablet 1 tab PO BID Qty: 6 0RF No Action pantoprazole 40 mg tablet,delayed release (DR/EC) 40 mg PO DAILY Qty: 30 3RF albuterol sulfate [Ventolin HFA] 1 INHALER inhaler 1 - 2 puff inhalation Q6H PRN PRN (Reason: Asthma) promethazine 25 MG tablet 25 mg PO QHS PRN (Reason: Nausea) trazodone 150 mg PO/SL QHS ondansetron 4 mg tablet,disintegrating 4 mg PO Q8H PRN (Reason: nausea and vomiting) Qty: 10 0RF sertraline 100 mg tablet 150 mg PO DAILY lorazepam 0.5 mg Tablet 0.5 mg PO DAILY PRN PRN (Reason: Anxiety) tizanidine 2 mg Capsule 4 mg PO QHS diphenhydramine-acetaminophen [Tylenol PM Extra Strength] 25-500 mg Tablet 1 tab PO QHS Rx Instructions: administer while awake prenat vit [id number],6 35-5-1.2-400 mg Capsule 1 cap PO DAILY potassium chloride 20 mEq Tablet Extended Release 40 meq PO DAILY sucralfate 100 mg/mL suspension 10 ml PO Q6H Qty: 400 0RF oxycodone-acetaminophen [Percocet] 5-325 mg tablet 1 tab PO Q6H PRN (Reason: pain) 3 Days Qty: 10 0RF esomeprazole magnesium [Nexium 24HR] 20 mg Capsule,Delayed Release(Dr/Ec) 20 mg PO DAILY lorazepam [Ativan] 0.5 mg tablet 0.5 mg PO TID PRN (Reason: anxiety) Qty: 14 0RF pantoprazole [Protonix] 20 mg tablet,delayed release (DR/EC) 20 mg PO DAILY Qty: 30 0RF Primary Care Provider: BALBIR SANDERSON Referrals: BALBIR SANDERSON [Other] - 3-5 Days if not improving Jose Daniel Myers MD [Med Staff - Active Staff] - As Needed Disposition Disposition: Home, Self Care
[2022-02-24 13:11] VITALS: BP 122/77; PULSE 75; RESP 16; O2SAT 99
[2022-02-24] MEDS: Ceftriaxone 1 GM/50 ML BAG IV (14:29)
== END 2022-02-24 15:26 | disposition home or self-care (01) ==
PROVIDERS: Emergency Provider Emergency Medicine; Visit Provider Emergency Medicine
DX: R31.9 Hematuria, unspecified (principal); I10 Essential (primary) hypertension; N83.202 Unspecified ovarian cyst, left side; N12 Tubulo-interstitial nephritis, not specified as acute or chronic; G47.30 Sleep apnea, unspecified; Z79.899 Other long term (current) drug therapy; F32.A Depression, unspecified
CPT/HCPCS: 74176; 80048; 81001; 85025; 87077; 87086; 87088; 87186; 96361; 96365; 96375; 99283; J7030; A4216

== ENCOUNTER 2022-03-17 06:02 | Day surgery (SDC) | payer BC, SELFPAY ==
[2022-03-17] VITALS (8 sets, daily range): BP systolic 95–112; BP diastolic 64–93; PULSE 72–88; RESP 16; TEMP 36.4–37.2; O2SAT 99–100; BMI 24.5
--- NOTE | 2022-03-17 | IMM_PTH ---
PATIENT: KENDALL RENAE [place] [facility] [place][id number] AGE/SX: 36/F ROOM: RE03/17/[address]: Dr. Jose Daniel Myers MD : 1985 BED: DIS: 03/17/2022 SPEC #: [id number] RECD: 03/18/22 11:46 STATUS: CLARA REBrenda #: [id number] SPEEDY: 03/17/22 00:[address]: Jose Daniel Myers DEPT: IMMUNOHISTOCHEMISTRY RECD BY: Kathya Walter Tissues: Endometrium, NOS Procedures: Gwyn Ret (add) P53 (add) P40 (add) Vimentin (initial) PHYSICIAN & INSTITUTION [place] [id number] SPECIMEN INFORMATION: Tissue Source: Possible endometriosis Clinical Info: Pelvic pain Specimen Number: [id number] CPT code: 91014, 11641 x3 METHODOLOGY: Deparaffinized sections of prefer/formalin-fixed tissue or PAP/DQ stained slides are incubated with monoclonal/polyclonal antibodies/oligonucleotide probes. Localization is made via biotin free immunoperoxidase method. Appropriate controls are performed and reacted as expected. Results on target cell population are indicated in the following table: RESULTS: ANTIBODY / CLONE RESULT P40 (BC28) negative Vimentin (V9) negative CALRET (polyclonal) positive P53 (DO-7) negative These tests were developed and their performance characteristics determined by [facility]. They may not have been cleared or approved by the U.S. Food and Drug Administration. The FDA has determined that such clearance or approval is not necessary. The above immunohistochemical/dualISH markers are ordered and reviewed by the Pathologist. INTERPRETATION: Possible endometriosis, biopsy: No evidence of endometriosis. AM:abby 03/19/2022
[2022-03-17 06:38] LABS: Internal QC Validated? YES +Cl - CLEAR BKGD; Pregnancy, Urine Negative Negative
[2022-03-17] MEDS: Lactated Ringers 1,000 ML 15 ML IV ×2 (06:46→09:00)
--- NOTE | 2022-03-17 06:57 | PCM.HP.BLA ---
History and Physical Date of Admission: 03/17/22 Chief complaint: Pelvic pain History present illness: 36-year-old arrives for diagnostic laparoscopy possible cystectomy. No medical changes since last seen. All questions answered and consent signed Obstetric history: G1: P1 with a history of demise Past medical history: Anxiety depression Medications: Trazodone, sertraline Allergies: Baclofen, codeine, Flagyl, morphine, Zofran, shellfish, Topamax, tramadol, adhesive, NSAIDs Past surgical history: Right salpingo-oophorectomy, tonsillectomy, classical section, laparoscopy Family history: Denies his DVT or PE Social history: Denies smoking, alcohol, drug use Review of systems: Besides above pertinent positives a full review of systems was performed and found to be negative Physical exam: Vitals: Blood pressure 106/64 pulse 78 respiratory rate 16 temperature 98.9 ?F SPO2 100% on room air General: Normal-appearing no acute distress HEENT: Normocephalic/atraumatic no cervical lymphadenopathy Cardiac/respiratory: No use accessory muscles, nonlabored breathing Abdomen: Soft, nontender, nondistended Extremities: No peripheral edema normal peripheral pulses Psych: Normal affect normal demeanor nonpressured speech Labs: Urine test negative Assessment plan: 36-year-old arrives for diagnostic laparoscopy possible cystic. Patient understands risk of the procedure include but are not limited to visceral vascular injury, prolonged hospitalization, blood loss need for transfusion, reoperation. Patient state understanding wish to proceed. All questions were answered and consent was signed
--- NOTE | 2022-03-17 07:30 | EMB_PTH ---
PATIENT: KENDALL RENAE LOC: [facility] [place] U#:[id number] AGE/SX: 36/F ROOM: RE03/17/[address]: Dr. Jose Daniel Myers MD : 1985 BED: DIS: 03/17/2022 SPEC #: [id number] RECD: 03/17/22 13:13 STATUS: CLARA REBrenda #: [id number] SPEEDY: 03/17/22 07:[address]: Jose Daniel Myers DEPT: SURGICAL PATHOLOGY RECD BY: Effie Michael Tissues: Endometrium, NOS Procedures: Surgery Specimen Level IV HEADER OPERATION: Diagnostic laparoscopy, fulguration and excision of endometriosis PRE-OP DIAGNOSIS: Pelvic pain TISSUE SUBMITTED: Possible endometriosis MICROSCOPIC DIAGNOSIS Possible endometriosis, biopsy: Fibrosis. No evidence of endometriosis. See comment. AM:abby 03/18/2022 COMMENT Immunohistochemistry ([id number]) supports the above diagnosis. MICROSCOPIC DESCRIPTION Slides are reviewed. GROSS DESCRIPTION Received in fixative is one container labeled with the patient's name and designated possible endometriosis. The specimen consists of a single irregular fragment of dark falk soft tissue measuring 0.2 x 0.1 x <0.1 cm. The specimen is totally submitted in one cassette. / AM:abby 03/17/2022 TC:5 [facility]: [id number]
--- NOTE | 2022-03-17 08:15 | DCINST_ITS ---
Discharge Instructions Diet Discharge Diet: No restrictions Activity Discharge Activity: Return to Normal Activity, May Shower and - (No tub baths for 2 weeks) May resume sexual activity in: 4-6 weeks Lifting Restrictions: No lifting over 25 pounds for 2 to 3 weeks Dressing / Incision Call your doctor if your incision/area has: Continuous Slow Oozing and Foul Smelling Discharge Call your doctor if you observe: Fever of 101 or Higher, Shortness of breath and Chest pain Follow Up Care Please Follow Up With: Jose Daniel Myers MD When: 2 weeks postoperatively Test Results: Test results from this visit will be discussed in further detail at your follow- up appointment, if applicable. Discharge Plan Admission Attending Provider: Jose Daniel Myers Primary Care Provider: BALBIR SANDERSON Discharge Orders/Prescriptions Prescriptions: No Action albuterol sulfate [Ventolin HFA] 1 INHALER inhaler 1 - 2 puff inhalation Q6H PRN PRN (Reason: Asthma) promethazine 25 MG tablet 25 mg PO QHS PRN (Reason: Nausea) trazodone 150 mg PO/SL QHS ondansetron 4 mg tablet,disintegrating 4 mg PO Q8H PRN (Reason: nausea and vomiting) Qty: 10 0RF sertraline 100 mg tablet 150 mg PO DAILY lorazepam 0.5 mg Tablet 0.5 mg PO DAILY PRN PRN (Reason: Anxiety) diphenhydramine-acetaminophen [Tylenol PM Extra Strength] 25-500 mg Tablet 1 tab PO QHS Rx Instructions: administer while awake prenat vit [id number]-om3,6 35-5-1.2-400 mg Capsule 1 cap PO DAILY sucralfate 100 mg/mL suspension 10 ml PO Q6H Qty: 400 0RF esomeprazole magnesium [Nexium 24HR] 20 mg Capsule,Delayed Release(Dr/Ec) 20 mg PO DAILY PRN (Reason: GERD) hydrocodone-acetaminophen [hydrocodone-acetaminophen] 5-325 mg tablet 1 tab PO Q6H PRN PRN (Reason: Pain) 3 Days Qty: 10 0RF Referrals / Follow Up: BALBIR SANDERSON [Other] Disposition Disposition (needs filled in before D/C Order can be placed): Home, Self Care
--- NOTE | 2022-03-17 08:16 | PCM.OPRPT ---
Report of Operation Date of Procedure: 03/17/22 Pre-Operative Diagnosis: Pelvic pain Post-Operative Diagnosis: Pelvic pain, endometriosis Surgery/Procedure Performed:: Diagnostic laparoscopy, fulguration and excision of endometriosis Description of Surgical Findings:: Surgeon: Jose Daniel Myers MD Anesthesia: General EBL: 5 cc Urine output: 300 cc IV fluids: 800 cc Complications: None Specimen: Suspected endometriosis Findings: Status post right salpingo-oophorectomy. Right uterosacral with powder burn lesion fulgurated. Posterior fundal portion of uterus with possible signs of endometriosis excised and sent to pathology. Bladder flap with possible endometriosis lesion attempted to excise, pathology minimal. All areas suspected of endometriosis were 2 to 3 mm in size. Otherwise normal uterus, tubes, and left ovary. Consent: Patient with pelvic pain elects for diagnostic laparoscopy. Patient understands risk of the procedure include but are not limited to visceral or vascular injury, prolonged hospitalization, blood loss and need for transfusion, reoperation. Patient state understanding wish to proceed. All questions were answered and consent was signed. Procedure: Patient was brought back to the OR where general anesthesia was found to be adequate. Patient was prepared and draped in dorsolithotomy position with yellowfin stirrups. A weighted speculum is placed in the posterior aspect of the vagina and cervical dilators were used to dilate the cervix. Uterine manipulator was placed. Varies needle was inserted at the umbilicus, water safety test was passed, abdomen was insufflated. 5 mm supraumbilical trocar was inserted under direct visualization. Laparoscope was inserted and above findings were noted. Left lower quadrant 5 mm trocar was inserted under direct visualization. Above findings were noted. Bilateral ureters were identified and found to be out of the operative field, no signs of endometriosis at site of ureters. Using [place] grasper and cautery right uterosacral powder burn lesion was fulgurated. Posterior fundal uterus lesions x2 excised and fulgurated. Bladder flap with possible signs of endometriosis, attempted excision, minimal tissue obtained. No other pathology noted. Good hemostasis was noted. Abdomen was desufflated, trochars were removed under direct visualization. Good hemostasis was noted. Trocar incisions were closed in a subcutaneous fashion. Good hemostasis was noted. Uterine manipulator was removed. Good hemostasis was noted. All counts were correct x2. Patient tolerated procedure well and was brought to recovery in stable condition.
[2022-03-17] MEDS: Acetaminophen 500 MG Tablet 1000 MG PO (10:10)
== END 2022-03-17 10:33 | disposition home or self-care (01) ==
LOC: SDC 06:03 → AC 06:04
PROVIDERS: Anesthesiology; Referring Provider Obstetrics & Gynecology; Visit Provider Obstetrics & Gynecology
PROC: (CPT 49320; principal; 2022-03-17 07:15)
DX: R10.2 Pelvic and perineal pain (principal); N18.2 Chronic kidney disease, stage 2 (mild)
CPT/HCPCS: 58662; 00840; 81025; 88305; 88341; 88342; J7120

== ENCOUNTER → 2022-08-06 | Outpatient (CLI) | payer BC, SELFPAY ==
[2022-08-06 11:31] LABS: Hematocrit 39.8 % (37-47); Hemoglobin 12.3 g/dL (12.0-15.0); Mean Corp Hgb Conc 30.9 g/dL (32-36); Mean Corpuscular Hgb 29.9 pg (27.0-32.0); Mean Corpuscular Volume 96.6 fL (81-99); Mean Platelet Vol. 11.1 fl (6.2-12.0); Platelet Count 204 K/mm3 (150-450); RBC Distribution Width CV 12.4 % (11.6-14.6); RBC Distribution Width SD 44.2 fl (35.1-43.9); Red Blood Count 4.12 M/mm3 (4.2-5.4); White Blood Count 7.1 K/mm3 (4.4-11.0)
[2022-08-06 11:45] LABS: Vitamin D,25 Hydroxy 64.6 ng/mL
[2022-08-06 12:09] LABS: Hemoglobin A1c 4.6 % (3.8-5.6)
[2022-08-06 12:11] LABS: PTHIN 28.5 pg/mL (18.4-80.1)
[2022-08-06 15:39] LABS: T4 Free Direct 0.89 ng/dL (0.76-1.46); Thyroid Stim Hormone (TSH) 0.45 uIU/mL (0.358-3.74)
[2022-08-06 16:26] LABS: Estradiol 185.5 pg/mL; Luteinizing Hormone 4.8 mIU/mL
[2022-08-11 11:08] LABS: Testosterone, % Free 1.27 % (0.50-2.80); Testosterone, Free 0.39 ng/dL (0.10-0.85); Testosterone, Total 31 ng/dL (8-60); Thyroid Peroxidase AB 11 IU/mL (0-34)
== END | disposition home or self-care (01) ==
LOC: WOBLAB 10:20
PROVIDERS: Visit Provider Obstetrics & Gynecology
DX: N97.9 Female infertility, unspecified (principal); E55.9 Vitamin D deficiency, unspecified; R55 Syncope and collapse; N20.0 Calculus of kidney
CPT/HCPCS: 36415; 82306; 82533; 82670; 83001; 83002; 83036; 83970; 84402; 84403; 84439; 84443; 85027; 86376

== ENCOUNTER 2022-08-18 09:53 | Emergency (ER) | payer BC, SELFPAY ==
[2022-08-18 09:54] VITALS: BP 140/71; PULSE 104; RESP 24; TEMP 36.2; O2SAT 99; BMI 24.0
[2022-08-18 09:59] VITALS: PULSE 104; RESP 15; O2SAT 99
--- NOTE | 2022-08-18 10:03 | RAD_ITS ---
STUDY: X-RAY - SOFT TISSUE NECK REASON FOR EXAM: Female, 36 years old. Sob, ?stridor TECHNIQUE: 2 view(s) of the neck were obtained. COMPARISON: None. FINDINGS: Normal visualized nasopharynx, oropharynx, hypopharynx. Thickening of the aryepiglottic folds. Normal visualized subglottic tracheal air column. Normal prevertebral soft tissue structures. Normal visualized osseous structures. The soft tissue structures are unremarkable. RAD/Neck for Soft Tissue IMPRESSION: Thickening of the aryepiglottic folds. Electronically Signed: Gino Morgan MD at 11:00 EDT ,
[2022-08-18 10:05] VITALS: PULSE 110; RESP 20
[2022-08-18] MEDS: Ipratropium/Albuterol Sulfate 3 ML AMPUL.NEB INHALATION (10:08)
--- NOTE | 2022-08-18 10:14 | ED.VIS.DYS ---
HPI History of Present Illness Chief Complaint: Asthma Informant: patient Narrative Narrative: Patient has a history of reflux and asthma. She states she had been feeling well all day yesterday. She woke up in the middle of the night, felt like she vomited up some acid and felt like that was due to reflux which is happened before, she felt like she may have aspirated it and has been short of breath ever since. She feels like she is having congestion and discomfort in her chest, not her throat and she has no pain in her throat. She states she already took some Carafate and Protonix prior to coming here. [facility] Medical History Abdominal pain Alcohol use Anemia Anxiety Back pain Bronchitis Bruising Depression Dietary restriction Dysautonomia-like disorder Easy bruising History of echocardiogram History of edema History of IBS History of irregular heartbeat Hypertension Hypoglycemia Kidney disease Kidney stones Migraines Nephrolithiasis Non-smoker Restless legs Seizures Shortness of breath on exertion Sleep apnea Wears glasses Home Medications albuterol sulfate 90 mcg/actuation aerosol inhaler (Ventolin HFA) 1 - 2 puff inhalation Q6H PRN PRN Asthma 03/22/13 [History Last Taken 05/24/14 08:49] promethazine 25 mg tablet 25 mg PO QHS PRN Nausea 02/28/20 [History Last Taken 05/30/21] trazodone 150 mg PO/SL QHS 12/31/20 [History Last Taken 06/05/21] ondansetron 4 mg disintegrating tablet 4 mg PO Q8H PRN nausea and vomiting #10 tabs 04/17/21 [Rx Last Taken 06/06/21] lorazepam 0.5 mg tablet 0.5 mg PO DAILY PRN PRN Anxiety 06/06/21 [History Last Taken 05/23/21] sertraline 100 mg tablet 150 mg PO DAILY 06/06/21 [History Last Taken 06/06/21] sucralfate 100 mg/mL oral suspension 10 ml PO Q6H #400 mL 10/20/21 [Rx Last Taken Unknown] diphenhydramine 25 mg-acetaminophen 500 mg tablet (Tylenol PM Extra Strength) 1 tab PO QHS 10/22/21 [History Last Taken Unknown] 17-iron(35 mg-5 mg)-folic acid 1.2 mg-fish oil 400 mg capsule 1 cap PO DAILY 10/22/21 [History Last Taken Unknown] esomeprazole magnesium 20 mg capsule,delayed release (Nexium 24HR) 20 mg PO DAILY PRN GERD 10/25/21 [History Last Taken Unknown] hydrocodone-acetaminophen 5-325mg 5mg-325mg 1 tab PO Q6H PRN PRN Pain 3 days #10 TABLETS 02/24/22 [Rx Last Taken Unknown] Allergy/AdvReac Type Severity Reaction Status Date / Time baclofen Allergy Severe incontinenc Verified 08/18/22 09:58 e codeine Allergy Hives Verified 08/18/22 09:58 metronidazole [From Flagyl] Allergy Shortness Verified 08/18/22 09:58 of breath morphine Allergy Hives Verified 08/18/22 09:58 ondansetron [From Zofran] Allergy Hives Verified 08/18/22 09:58 shellfish derived Allergy Angioedema Verified 08/18/22 09:58 topiramate [From Topamax] Allergy Other Verified 08/18/22 09:58 tramadol AdvReac Severe seizures Verified 08/18/22 09:58 adhesive AdvReac Rash Verified 08/18/22 09:58 NSAIDS (Non-Steroidal AdvReac PT UNSURE Verified 08/18/22 09:58 Anti-Inflamma OF REACTION Family History Father No cardiac disease Mother No cardiac disease Other Arthritis Asthma Blood clot in vein Bowel disease Breast cancer CVA (cerebral vascular accident) Cervical cancer Depression Diabetes High cholesterol Hypertension Seizures Suicidal ideation Surgical History Hx of laparoscopy Previous section S/P breast lumpectomy S/P removal of right ovary S/P tonsillectomy Social History household members: spouse Smoking Status: Never smoker alcohol intake: current alcohol intake frequency: holidays/special occasions only substance use type: does not use what type of physical activity do you participate in: none ROS ROS ED Constitutional Constitutional ED: Denies chills or fever(s) Eyes Eyes: Denies change in vision or diplopia ENT ENT ED: Denies ear pain, rhinorrhea or sore throat Cardiovascular Cardiovascular: Reports chest pain; Denies palpitations Respiratory/Chest Respiratory/Chest: Reports cough and dyspnea Gastrointestinal Gastrointestinal: Reports as per HPI and vomiting; Denies abdominal pain, diarrhea or nausea Genitourinary Genitourinary ED: Denies dysuria or hematuria Musculoskeletal Musculoskeletal: Denies back pain or neck pain Integumentary Denies abscess or rash Neurologic Neurologic: Denies headache(s), paresthesias or weakness Psychiatric Psychiatric: Reports anxiety; Denies suicidal thoughts EXAM Physical Exam Const Vital Signs: 08/18/22 09:54 08/18/22 09:59 08/18/22 09:59 Temperature 97.1 F L Temperature Source Temporal Pulse Rate 104 H 104 H Respiratory Rate 24 H 15 Respiratory Effort Normal Respiratory Pattern Blood Pressure 140/71 H Blood Pressure Mean 94 Pulse Ox 99 99 Oxygen Delivery Method Room Air Room Air Room Air 08/18/22 10:05 08/18/22 10:53 Temperature Temperature Source Pulse Rate 110 H 84 Respiratory Rate 20 H 12 Respiratory Effort Respiratory Pattern Normal Blood Pressure 103/68 Blood Pressure Mean 79 Pulse Ox 100 Oxygen Delivery Method Room Air Positive well nourished and well developed Constitutional Narrative: Patient appears to intermittently begin in some respiratory distress with stridor versus inspiratory wheezing, and also has some expiratory wheezing. General Appearance ED: well developed HEENT Reports moist mucous membranes HEENT Narrative: Posterior oropharynx clear, no trismus. normocephalic and atraumatic Eyes PERRL and EOMs intact bilaterally Neck full ROM, no lymphadenopathy and supple Resp Resp Narrative: Inspiratory and expiratory wheezing, plus or minus stridor. See above. There are occasions where patient is conversive in full sentences, and takes a deep breath in between sentences without any stridor. Cardio regular rate, regular rhythm and no murmurs GI non-tender and non-distended Auscultation: normoactive bowel sounds Palpation: soft Back/Spine no CVA tenderness General Back: other FROM Extremity normal to inspection General Extremety ED: Negative for edema, pulses abnormal or tenderness General Extremity: Negative for edema or pulses abnormal Neuro oriented x3, CN's II-XII intact bilaterally and no sensory deficits noted Sensorium / Orientation: awake and alert Motor Exam: strength 5/5 throughout Skin no rashes or lesions noted and no wounds MDM MDM MDM Narrative Medical decision making narrative: Respiratory he arrived with a duo nebulizer treatment simultaneous to my examination. Upon getting this, the patient felt much better, and had no more stridor and was able to speak and breathe comfortably. No more wheezing on my evaluation. Therefore I feel like she is much less likely to have stridor although I still sent her for a two-view chest x-ray as well as a 2 view neck soft tissue x-ray to evaluate her epiglottis. Epiglottis is normal on my interpretation of the soft tissue neck x-ray, and the 2 view chest x-ray is unremarkable for infiltrates/pneumothorax as well. I reviewed the radiologist interpretations. She was observed for a while. She did not require any more treatments, she said she started to get little bit more wheezy but wanted to go home and do albuterol there which she has, she was given Decadron 8 mg orally, we discussed reasons to return but no clinical or radiographic evidence of aspiration pneumonitis at this time, we discussed possibility of developing and reasons to return she comfortable with that plan no need for antibiotics right now Radiography Diagnostic Testing: Clinical Impression(s) from Imaging Studies Soft Tissue Neck X-Ray 08/18/22 10:03 IMPRESSION: Thickening of the aryepiglottic folds. Electronically Signed: Gino Morgan MD at 11:00 EDT , Chest X-Ray 08/18/22 10:32 IMPRESSION: Hyperinflation. No acute abnormality is seen. Electronically Signed: Gino Morgan MD at 10:59 EDT , Discharge Plan Triage Chief Complaint: Asthma ED Provider: Elver Yi Dx/Rx/DC Orders Clinical Impression: Aspiration of vomitus, Acute asthma exacerbation Instructions: Asthma Prescriptions: No Action albuterol sulfate [Ventolin HFA] 1 INHALER inhaler 1 - 2 puff inhalation Q6H PRN PRN (Reason: Asthma) promethazine 25 MG tablet 25 mg PO QHS PRN (Reason: Nausea) trazodone 150 mg PO/SL QHS ondansetron 4 mg tablet,disintegrating 4 mg PO Q8H PRN (Reason: nausea and vomiting) Qty: 10 0RF sertraline 100 mg tablet 150 mg PO DAILY lorazepam 0.5 mg Tablet 0.5 mg PO DAILY PRN PRN (Reason: Anxiety) diphenhydramine-acetaminophen [Tylenol PM Extra Strength] 25-500 mg Tablet 1 tab PO QHS Rx Instructions: administer while awake prenat vit [id number] 35-5-1.2-400 mg Capsule 1 cap PO DAILY sucralfate 100 mg/mL suspension 10 ml PO Q6H Qty: 400 0RF esomeprazole magnesium [Nexium 24HR] 20 mg Capsule,Delayed Release(Dr/Ec) 20 mg PO DAILY PRN (Reason: GERD) hydrocodone-acetaminophen [hydrocodone-acetaminophen] 5-325 mg tablet 1 tab PO Q6H PRN PRN (Reason: Pain) 3 Days Qty: 10 0RF Primary Care Provider: BALBIR SANDERSON Referrals: BALBIR SANDERSON [Other] - 3-5 Days if not improving (or ER if worsening) Disposition Disposition: Home, Self Care
[2022-08-18] MEDS: dexAMETHasone 4 MG Tablet 8 MG PO (10:26)
--- NOTE | 2022-08-18 10:32 | RAD_ITS ---
STUDY: X-RAY CHEST REASON FOR EXAM: Female, 36 years old. Wheezing. Possible aspiration. TECHNIQUE: PA and lateral views of the chest. COMPARISON: Comparison is made with prior study dated January 06, 2022. FINDINGS: EKG electrodes are seen. Hyperinflation. Scattered calcified granulomas. The lungs are clear. There is no demonstrated pleural abnormality. Normal size heart. Normal mediastinum and frances. Normal visualized pulmonary arteries. Normal visualized aortic arch and descending thoracic aorta. Normal visualized thoracic spine. Normal visualized ribs, clavicles, and shoulders. There is no demonstrated abnormality of the visualized soft tissue structures of the upper abdomen. RAD/Chest PA and Lateral IMPRESSION: Hyperinflation. No acute abnormality is seen. Electronically Signed: Gino Morgan MD at 10:59 EDT ,
[2022-08-18 10:53] VITALS: BP 103/68; PULSE 84; RESP 12; O2SAT 100
[2022-08-18 11:00] VITALS: BP 103/68
[2022-08-18 12:00] VITALS: BP 112/68
== END 2022-08-18 13:00 | disposition home or self-care (01) ==
PROVIDERS: Emergency Provider Emergency Medicine; Visit Provider Emergency Medicine
DX: J45.901 Unspecified asthma with (acute) exacerbation (principal); I10 Essential (primary) hypertension; T17.908A Unspecified foreign body in respiratory tract, part unspecified causing other injury, initial encounter; Z79.899 Other long term (current) drug therapy; F32.A Depression, unspecified; F41.9 Anxiety disorder, unspecified; K21.9 Gastro-esophageal reflux disease without esophagitis; X58.XXXA Exposure to other specified factors, initial encounter
CPT/HCPCS: 70360; 71046; 94640; 99281

== ENCOUNTER 2022-09-19 14:50 | Emergency (ER) | payer BC, SELFPAY ==
[2022-09-19 14:51] VITALS: BP 137/74; PULSE 78; RESP 18; TEMP 36.6; O2SAT 100; BMI 25.7
--- NOTE | 2022-09-19 15:04 | ED.VIS.LOWEX ---
HPI History of Present Illness Chief Complaint: Lower Extremity Injury Informant: patient Narrative Narrative: 36-year-old female presenting to the emergency room with left knee pain. Patient states that she was going up a flight of stairs when she suddenly felt a pop and pain over the lateral posterior aspect of the left knee. Since that time she notes pain with bearing weight. She has been able to straighten the leg. She denies any patellar pain. The patient denies any other injuries. She notes she has not had a prior knee surgery or knee injuries. She denies any crepitance or pain with knee bending in the past. She took ibuprofen at work. She brought crutches. She declines further analgesia at this time. [facility] Medical History Abdominal pain Alcohol use Anemia Anxiety Back pain Bronchitis Bruising Depression Dietary restriction Dysautonomia-like disorder Easy bruising History of echocardiogram History of edema History of IBS History of irregular heartbeat Hypertension Hypoglycemia Kidney disease Kidney stones Migraines Nephrolithiasis Non-smoker Restless legs Seizures Shortness of breath on exertion Sleep apnea Wears glasses Home Medications albuterol sulfate 90 mcg/actuation aerosol inhaler (Ventolin HFA) 1 - 2 puff inhalation Q6H PRN PRN Asthma 03/22/13 [History Last Taken 05/24/14 08:49] promethazine 25 mg tablet 25 mg PO QHS PRN Nausea 02/28/20 [History Last Taken 05/30/21] trazodone 150 mg PO/SL QHS 12/31/20 [History Last Taken 06/05/21] ondansetron 4 mg disintegrating tablet 4 mg PO Q8H PRN nausea and vomiting #10 tabs 04/17/21 [Rx Last Taken 06/06/21] lorazepam 0.5 mg tablet 0.5 mg PO DAILY PRN PRN Anxiety 06/06/21 [History Last Taken 05/23/21] sertraline 100 mg tablet 150 mg PO DAILY 06/06/21 [History Last Taken 06/06/21] sucralfate 100 mg/mL oral suspension 10 ml PO Q6H #400 mL 10/20/21 [Rx Last Taken Unknown] diphenhydramine 25 mg-acetaminophen 500 mg tablet (Tylenol PM Extra Strength) 1 tab PO QHS 10/22/21 [History Last Taken Unknown] 17-iron(35 mg-5 mg)-folic acid 1.2 mg-fish oil 400 mg capsule 1 cap PO DAILY 10/22/21 [History Last Taken Unknown] esomeprazole magnesium 20 mg capsule,delayed release (Nexium 24HR) 20 mg PO DAILY PRN GERD 10/25/21 [History Last Taken Unknown] hydrocodone-acetaminophen 5-325mg 5mg-325mg 1 tab PO Q6H PRN PRN Pain 3 days #10 TABLETS 02/24/22 [Rx Last Taken Unknown] Allergy/AdvReac Type Severity Reaction Status Date / Time baclofen Allergy Severe incontinenc Verified 09/19/22 14:52 e codeine Allergy Hives Verified 09/19/22 14:52 metronidazole [From Flagyl] Allergy Shortness Verified 09/19/22 14:52 of breath morphine Allergy Hives Verified 09/19/22 14:52 ondansetron [From Zofran] Allergy Hives Verified 09/19/22 14:52 shellfish derived Allergy Angioedema Verified 09/19/22 14:52 topiramate [From Topamax] Allergy Other Verified 09/19/22 14:52 tramadol AdvReac Severe seizures Verified 09/19/22 14:52 adhesive AdvReac Rash Verified 09/19/22 14:52 NSAIDS (Non-Steroidal AdvReac PT UNSURE Verified 09/19/22 14:52 Anti-Inflamma OF REACTION Family History Father No cardiac disease Mother No cardiac disease Other Arthritis Asthma Blood clot in vein Bowel disease Breast cancer CVA (cerebral vascular accident) Cervical cancer Depression Diabetes High cholesterol Hypertension Seizures Suicidal ideation Surgical History Hx of laparoscopy Previous section S/P breast lumpectomy S/P removal of right ovary S/P tonsillectomy Social History household members: spouse Smoking Status: Never smoker alcohol intake: current alcohol intake frequency: holidays/special occasions only substance use type: does not use what type of physical activity do you participate in: none ROS ROS ED Constitutional Constitutional ED: Denies chills or weight loss Eyes Eyes: Denies change in vision or diplopia ENT ENT ED: Denies ear pain, rhinorrhea or sore throat Cardiovascular Cardiovascular: Denies chest pain, orthopnea, palpitations or racing heartbeat Respiratory/Chest Respiratory/Chest: Denies cough, dyspnea or orthopnea Gastrointestinal Gastrointestinal: Denies abdominal pain, diarrhea, nausea or vomiting Genitourinary Genitourinary ED: Denies dysuria, hematuria or urinary frequency Musculoskeletal Musculoskeletal: Reports other Details: Left knee pain see history of present illness ; Denies arthralgias, back pain or myalgias Integumentary Denies abscess or rash Neurologic Neurologic: Denies headache(s) or weakness Psychiatric Psychiatric: Denies anxiety, depression, suicidal ideation or suicidal thoughts Endocrine Endocrinology: Denies polydipsia, polyphagia or polyuria Allergic/Immunologic Allergic/Immunologic ED: Denies mouth swelling, tongue swelling or urticaria EXAM Physical Exam Const Vital Signs: 09/19/22 14:51 Temperature 98 F Temperature Source Temporal Pulse Rate 78 Respiratory Rate 18 Blood Pressure 137/74 H Blood Pressure Mean 95 Pulse Ox 100 Oxygen Delivery Method Room Air Positive well nourished and well developed General Appearance ED: well developed HEENT Reports normocephalic, head/scalp atraumatic and moist mucous membranes Eyes PERRL and EOMs intact bilaterally Neck no lymphadenopathy, supple and no JVD Resp normal respiratory effort and clear to auscultation bilaterally Cardio regular rate, regular rhythm and no murmurs GI normal to inspection, nondistended, normoactive bowel sounds and non-tender Palpation: soft Back/Spine no CVA tenderness and normal ROM Extremity Extremity Narrative: Ligaments appear stable bilaterally. Patient is able to raise her leg straight up off the bed. She does note patellar pain with palpation. There is no effusion. She does note tenderness to palpation along both the medial and the lateral joint line though the lateral is more tender. She denies any fibular pain. There is no fullness in the popliteal fossa. No rash. General Extremety ED: Negative for edema General Extremity: Negative for edema Neuro oriented x3 and CN's II-XII intact bilaterally Sensorium / Orientation: alert Motor Exam: strength 5/5 throughout Psych mental status grossly normal Mood & Affect: Negative for depressed or tearful Skin no rashes or lesions noted and no wounds MDM MDM MDM Narrative Medical decision making narrative: 4 view x-rays of the left knee were obtained. These were reviewed and interpreted by myself as normal. Radiology concurs and they are read. Was explained to the patient that we will treat this conservatively with ice and Yrn wrap anti-inflammatories and as needed crutches. She did she continue to have symptoms or worsen she may need an MRI to evaluate meniscus/ligaments. Patient is understanding of the plan and is comfortable with it. Radiography Diagnostic Testing: Clinical Impression(s) from Imaging Studies Knee X-Ray 09/19/22 15:05 IMPRESSION: Normal x-ray examination of the knee. Electronically Signed: Gino Morgan MD at 15:20 EDT , Discharge Plan Triage Chief Complaint: Lower Extremity Injury ED Provider: Dandy Santos Dx/Rx/DC Orders Clinical Impression: Acute pain of left knee Instructions: ED Meniscal Injury Knee Poss, ED Knee Pain of Uncertain Cause Prescriptions: No Action albuterol sulfate [Ventolin HFA] 1 INHALER inhaler 1 - 2 puff inhalation Q6H PRN PRN (Reason: Asthma) promethazine 25 MG tablet 25 mg PO QHS PRN (Reason: Nausea) trazodone 150 mg PO/SL QHS ondansetron 4 mg tablet,disintegrating 4 mg PO Q8H PRN (Reason: nausea and vomiting) Qty: 10 0RF sertraline 100 mg tablet 150 mg PO DAILY lorazepam 0.5 mg Tablet 0.5 mg PO DAILY PRN PRN (Reason: Anxiety) diphenhydramine-acetaminophen [Tylenol PM Extra Strength] 25-500 mg Tablet 1 tab PO QHS Rx Instructions: administer while awake prenat vit [id number],6 35-5-1.2-400 mg Capsule 1 cap PO DAILY sucralfate 100 mg/mL suspension 10 ml PO Q6H Qty: 400 0RF esomeprazole magnesium [Nexium 24HR] 20 mg Capsule,Delayed Release(Dr/Ec) 20 mg PO DAILY PRN (Reason: GERD) hydrocodone-acetaminophen [hydrocodone-acetaminophen] 5-325 mg tablet 1 tab PO Q6H PRN PRN (Reason: Pain) 3 Days Qty: 10 0RF Primary Care Provider: [facility] Doctor,Out of Referrals: [facility] Doctor,Out of [Primary Care Provider] - 10-14 Days if not better Disposition Disposition: Home, Self Care
--- NOTE | 2022-09-19 15:05 | RAD_ITS ---
STUDY: X-RAY - LEFT KNEE REASON FOR EXAM: Female, 36 years old. Pain and injury TECHNIQUE: 4 view(s) of the knee. COMPARISON: None. FINDINGS: Normal visualized distal femur. Normal visualized proximal tibia and fibula. Normal proximal tibiofibular articulation. Normal medial femorotibial compartment. Normal lateral femorotibial compartment. Normal patellofemoral articulation. The soft tissue structures are unremarkable. RAD/Knee 4 or More Views IMPRESSION: Normal x-ray examination of the knee. Electronically Signed: Gino Morgan MD at 15:20 EDT ,
== END 2022-09-19 15:48 | disposition home or self-care (01) ==
LOC: ED 15:41
PROVIDERS: Emergency Provider Emergency Medicine; Visit Provider Emergency Medicine
DX: M25.562 Pain in left knee (principal); I10 Essential (primary) hypertension; F41.9 Anxiety disorder, unspecified; F32.A Depression, unspecified; Z79.899 Other long term (current) drug therapy; X58.XXXA Exposure to other specified factors, initial encounter
CPT/HCPCS: 73564; 99282

== ENCOUNTER → 2022-10-08 | Outpatient (CLI) | payer BC, SELFPAY ==
[2022-10-08 11:32] LABS: Hematocrit 41.2 % (37-47); Hemoglobin 12.9 g/dL (12.0-15.0); Mean Corp Hgb Conc 31.3 g/dL (32-36); Mean Corpuscular Hgb 30.1 pg (27.0-32.0); Mean Platelet Vol. 10.2 fl (6.2-12.0); Platelet Count 226 K/mm3 (150-450); RBC Distribution Width CV 12.9 % (11.6-14.6); RBC Distribution Width SD 45.7 fl (35.1-43.9); Red Blood Count 4.29 M/mm3 (4.2-5.4); White Blood Count 6.7 K/mm3 (4.4-11.0)
== END | disposition home or self-care (01) ==
LOC: WOBLAB 11:17
PROVIDERS: Visit Provider Obstetrics & Gynecology
DX: N97.9 Female infertility, unspecified (principal)
CPT/HCPCS: 36415; 85027

== ENCOUNTER 2022-11-09 16:30 | Emergency (ER) | payer BC, SELFPAY ==
[2022-11-09 16:31] VITALS: BP 106/68; PULSE 96; RESP 18; TEMP 36.6; O2SAT 100; BMI 25.9
--- NOTE | 2022-11-09 16:48 | US_ITS ---
STUDY: FIRST TRIMESTER OBSTETRICAL ULTRASOUND REASON FOR EXAM: Female, 36 years old. vaginal bleeding TECHNIQUE: Transvaginal US was obtained to better visualized the ovaries. TECHNICAL QUALITY: Adequate. PRIOR ULTRASOUND: None. FINDINGS: There is visualization of a single gestational sac in a normal intrauterine position. The mean sac diameter (MSD) measures 6.7 mm, indicating an estimated gestational age (EGA) of 5 weeks, 3 days. The gestational sac shape is within normal limits. There is no demonstrated yolk sac. The placenta is non-visualized. Due to early gestation, the placenta is not seen. There is no demonstrated embryo ( pole). The estimated gestation age (EGA) by LMP is 5 weeks, 0 days. The estimated date of delivery (JONATHON) by LMP is 5.26.24. The estimated gestation age (EGA) by US is 5 weeks, 3 days. The estimated date of delivery (JONATHON) by US is 5.23.24. The uterus measures 7.5x6.1 cm. There is no demonstrated uterine fibroid. The cervix is closed. Small subchorionic hemorrhage. This measures 5 mm. The right ovary : It is not visualized. There is too much overlying bowel gas. The left ovary measures 3.9 cm. There is 28 mm left ovarian cyst. There is no visualized left adnexal mass or complex lesion. There is a moderate amount of fluid in the cul de sac. US/Transvaginal w/Preg US IMPRESSION: There is a moderate amount of fluid in the cul de sac. Small fluid collection within the uterus. Differential diagnosis includes early IUP with embryonic pole and yolk sac below the limits of sonographic resolution, blighted ovum and pseudo-gestational sac. Correlation with serum quantitative beta-hCG and follow up ultrasound is recommended. The possibility of ectopic cannot be excluded on the basis of this exam. Small subchorionic hemorrhage. Electronically Signed: Kenneth Hare MD at 19:31 EDT ,
[2022-11-09] MEDS: 0.9% Normal Saline (1000mL) 1,000 ML 1000 ML IV (17:20)
[2022-11-09] MEDS: Ondansetron 4 MG/2 ML Vial IV (17:27)
[2022-11-09 17:37] LABS: Absolute Neutrophil Count 5.6 X10^3/uL (2.0-7.7); Basophil# 0.05 X10^3/uL; Basophil% 0.5 % (0-1); Eosinophil# 0.12 X10^3/uL; Eosinophils% 1.3 % (0-5); Hematocrit 38.5 % (37-47); Hemoglobin 12.1 g/dL (12.0-15.0); Lymphocyte % 29.6 % (19-41); Mean Corp Hgb Conc 31.4 g/dL (32-36); Mean Corpuscular Hgb 30.1 pg (27.0-32.0); Mean Corpuscular Volume 95.8 fL (81-99); Monocyte# 0.62 X10^3/uL; Monocyte% 6.8 % (0-10); NRBC Flagged by Analyzer 0 % (0-5); Neutrophil # 5.58 X10^3/uL (2.7-7.7); Neutrophil % 61.4 % (47-70); Platelet Count 236 K/mm3 (150-450); RBC Distribution Width SD 46.3 fl (35.1-43.9); Red Blood Count 4.02 M/mm3 (4.2-5.4); White Blood Count 9.1 K/mm3 (4.4-11.0)
[2022-11-09 17:51] LABS: Color, Urine Yellow (Yellow); Glucose, Dipstick Normal (Normal); Ketone-Dipstick 15 mg/dl (Negative); Leukocyte Esterase-Dipstick Negative /ul (Negative); Mucous, Urine 0 SEEN /hpf (<or=2+); Nitrite-Dipstick Negative (Negative); Occult Blood-Urine 150 /ul (Negative); Protein-Dipstick Negative (Negative); Red Blood Cells-Urine 0 SEEN /hpf (0-5); Specific Gravity, Urine 1.025 (1.002-1.030); Urine Bilirubin Dipstick Negative (Negative); Urine Clarity Sl. Cloudy (Clear); Urine Urobilinogen Normal (Normal)
--- NOTE | 2022-11-09 17:53 | ED.VIS.FEGU ---
HPI <MARLENE Murillo - Last Filed: 11/09/22 20:31> HPI - Female History of Present Illness Chief Complaint: Vag Bleeding Narrative Narrative: Patient is a 36-year-old female who is a 2 para 0 who had an spontaneous at 24 weeks. Patient presents emerged part with 1 week of generalized abdominal pain, spotting of brown discharge. Patient has been seen in [facility], and is getting recent hCG quantitative blood work. Per the patient, it has been going up and been normal. Patient estimates her at 5 to 6 weeks. Patient has pain to the lower abdomen. [facility] <MARLENE Murillo - Last Filed: 11/09/22 20:31> [facility] Medical History Abdominal pain Alcohol use Anemia Anxiety Back pain Bronchitis Bruising Depression Dietary restriction Dysautonomia-like disorder Easy bruising History of echocardiogram History of edema History of IBS History of irregular heartbeat Hypertension Hypoglycemia Kidney disease Kidney stones Migraines Nephrolithiasis Non-smoker Restless legs Seizures Shortness of breath on exertion Sleep apnea Wears glasses Home Medications albuterol sulfate 90 mcg/actuation aerosol inhaler (Ventolin HFA) 1 - 2 puff inhalation Q6H PRN PRN Asthma 03/22/13 [History Last Taken 05/24/14 08:49] trazodone 150 mg PO/SL QHS 12/31/20 [History Last Taken 06/05/21] ondansetron 4 mg disintegrating tablet 4 mg PO Q8H PRN nausea and vomiting #10 tabs 04/17/21 [Rx Last Taken 06/06/21] diphenhydramine 25 mg-acetaminophen 500 mg tablet (Tylenol PM Extra Strength) 1 tab PO QHS 10/22/21 [History Last Taken Unknown] 17-iron(35 mg-5 mg)-folic acid 1.2 mg-fish oil 400 mg capsule 1 cap PO DAILY 10/22/21 [History Last Taken Unknown] Allergy/AdvReac Type Severity Reaction Status Date / Time baclofen Allergy Severe incontinenc Verified 11/09/22 16:31 e codeine Allergy Hives Verified 11/09/22 16:31 metronidazole [From Flagyl] Allergy Shortness Verified 11/09/22 16:31 of breath morphine Allergy Hives Verified 11/09/22 16:31 shellfish derived Allergy Angioedema Verified 11/09/22 16:31 topiramate [From Topamax] Allergy Other Verified 11/09/22 16:31 tramadol AdvReac Severe seizures Verified 11/09/22 16:31 adhesive AdvReac Rash Verified 11/09/22 16:31 NSAIDS (Non-Steroidal AdvReac PT UNSURE Verified 11/09/22 16:31 Anti-Inflamma OF REACTION Family History Father No cardiac disease Mother No cardiac disease Other Arthritis Asthma Blood clot in vein Bowel disease Breast cancer CVA (cerebral vascular accident) Cervical cancer Depression Diabetes High cholesterol Hypertension Seizures Suicidal ideation Surgical History Hx of laparoscopy Previous section S/P breast lumpectomy S/P removal of right ovary S/P tonsillectomy Social History household members: spouse Smoking Status: Never smoker alcohol intake: current alcohol intake frequency: holidays/special occasions only substance use type: does not use what type of physical activity do you participate in: none ROS <MARLENE Murillo - Last Filed: 11/09/22 20:31> ROS ED ROS Narrative Constitutional: Negative for fever, chills, weight loss, weakness Eyes: Negative for vision loss, vision change, double vision ENT: Negative for any sore throat, ear pain, congestion Cardiovascular: Negative for any chest pain, tightness, palpitations Respiratory: Negative for any cough, sputum production, hemoptysis, dyspnea, dyspnea on exertion, orthopnea Gastrointestinal: Negative for any nausea, vomiting, diarrhea, constipation, blood in stool, blood in vomit. Positive for abdominal pain : Negative for any urinary frequency, dysuria, retention, blood in urine. Positive for vaginal bleeding Muscle skeletal: Negative for any muscle joint pain, stiffness, myalgias, arthralgias, neck pain, back pain Neurological: Negative for any headache, syncope, numbness or tingling, dizziness Skin: Negative for any rashes, lumps, itching, abrasions, lacerations Psychiatric: Negative for any depression, anxiety, stress, suicidal ideation, homicidal ideation Hematologic: Negative for any easy bruising, excessive bruising, easy bleeding Allergies: Negative for any eczema, hives, rash EXAM <MARLENE Murillo - Last Filed: 11/09/22 20:31> Physical Exam Narrative Exam Narrative: Vital signs reviewed. HEET: Head normocephalic atraumatic, TMs clear bilaterally. Posterior pharynx is clear, moist mucous membranes. Nares clear bilaterally. Neck: Supple with no lymphadenopathy or tenderness. No signs of meningismus, negative jolt sign. Cardiac: Regular rate and rhythm no murmurs gallops or rubs, equal peripheral pulses bilaterally. Respiratory: Lungs clear to auscultation bilaterally. No chest tenderness. Abdomen: Soft, nondistended. No abdominal bruit or pulsatile masses. No hepatosplenomegaly. Positive for pain on palpation to the lower abdomen. No peritoneal signs, no guarding. Extremities: No peripheral edema, no signs of gross trauma or deformity. Active full range of motion of all extremities. Neuro: Cranial nerves II through XII intact, no focal neurological deficits. Skin: Clean dry and intact with no rash, purpura, petechiae, vesicles or pustules. Backs/flank: No CVA tenderness, no midline spinal tenderness, no deformity. Psych: Normal mood and affect. No SI, HI or acute psychosis. Const Vital Signs: 11/09/22 16:31 Temperature 97.8 F Temperature Source Temporal Pulse Rate 96 Respiratory Rate 18 Blood Pressure 106/68 Blood Pressure Mean 80 Pulse Ox 100 Oxygen Delivery Method Room Air Positive well nourished and well developed General Appearance ED: well developed <Dr. Quique Gross MD - Last Filed: 11/09/22 22:16> Physical Exam Const Vital Signs: 11/09/22 16:31 Temperature 97.8 F Temperature Source Temporal Pulse Rate 96 Respiratory Rate 18 Blood Pressure 106/68 Blood Pressure Mean 80 Pulse Ox 100 Oxygen Delivery Method Room Air MDM <MARLENE Murillo - Last Filed: 11/09/22 20:31> MDM Lab Data Labs: Laboratory Results - last 24 hr 11/09/22 11/09/22 16:58 17:16 WBC 9.1 RBC 4.02 L Hgb 12.1 Hct 38.5 MCV 95.8 MCH 30.1 MCHC 31.4 L RDW Std Deviation 46.3 H RDW Coeff of [place] 13.0 Plt Count 236 MPV 10.0 Immature Gran % (Auto) 0.400 Neut % (Auto) 61.4 Lymph % (Auto) 29.6 Rogers % (Auto) 6.8 Eos % (Auto) 1.3 Baso % (Auto) 0.5 Absolute Neuts (auto) 5.6 Absolute Lymphs (auto) 2.70 Nucleated RBC % 0 HCG, Quant 7926 H Urine Color Yellow Urine Clarity Sl. Cloudy Urine pH 6.0 Ur Specific [place] 1.025 Urine Protein Negative Urine Glucose (UA) Normal Urine Ketones 15 H Urine Occult Blood 150 H Urine Nitrite Negative Urine Bilirubin Negative Urine Urobilinogen Normal Ur Leukocyte Esterase Negative Urine RBC 0 SEEN Urine WBC 0-5 SEEN Ur Squamous Epith Cells 5-10 SEEN Urine Bacteria 1+ Urine Mucus 0 SEEN Radiography Diagnostic Testing: Clinical Impression(s) from Imaging Studies Obstetrics Ultrasound 11/09/22 16:48 IMPRESSION: There is a moderate amount of fluid in the cul de sac. Small fluid collection within the uterus. Differential diagnosis includes early IUP with embryonic pole and yolk sac below the limits of sonographic resolution, blighted ovum and pseudo-gestational sac. Correlation with serum quantitative beta-hCG and follow up ultrasound is recommended. The possibility of ectopic cannot be excluded on the basis of this exam. Small subchorionic hemorrhage. Electronically Signed: Kenneth Hare MD at 19:31 EDT Reading Location ID and State: [facility] [place] / [place] , Service support , Treatment and Re-Evaluation Narrative: Patient appears generally well, patient appears nontoxic, vital signs are stable. Presents to the emergency department for concern for miscarriage secondary to vaginal spotting, lower abdominal pain. Patient will receive a transvaginal ultrasound. Patient is given IV fluids, IV Zofran. Basic laboratory values will be done as well as hCG quantitative. Patient's labs showed a white blood count 9.1, hemoglobin of 12.1 with a hematocrit of 38.5, patient's hCG quant was 7926 this is elevated from what patient previously told me. Patient is a positive. Urinalysis showed 1+ bacteria however there is 5-10 squamous cells, negative nitrates, negative leukocytes. Patient's transvaginal ultrasound shows that there is a moderate amount of fluid in the cul-de-sac. Small fluid collection within the uterus. Differential diagnosis includes early IUP with embryonic pole and yolk sac although the limits of sonographic resolution. Correlate with serum quantitative beta hCG and follow-up ultrasound recommended. The possibility of ectopic cannot be excluded the basis of this exam. Small some chronic hemorrhage. Patient will be evaluated by [facility]IDENTIAL ASSISTANT. My attending did speak with the RESIDENTIAL ASSISTANT physician, she will come up and evaluate the patient. <Dr. Quique Gross MD - Last Filed: 11/09/22 22:16> [facility] MDM Narrative Medical decision making narrative: I have personally performed a face to face assessment of the patient and have reviewed the BRIE Note. I performed a substantive portion of the visit including all aspects of the following. My ayala findings include: History is 36-year-old female G2, P0 with a delivery at 24 weeks of past. Currently is around 6 weeks having vaginal bleeding and pelvic pain. Has had no RESIDENTIAL ASSISTANT care as of yet for this . Denies any dysuria. Patient has had her right tube and ovary resected due to a tubo-ovarian abscess. Exam is [female vital signs stable afebrile. Does not look septic toxic. No distress. NT exam is unremarkable. Lungs clear to auscultation. Heart rate rhythm benign abdomen soft nondistended normal bowel sounds. Minimal left suprapubic tenderness. No peritoneal signs. Moving all 4 extremities. Awake and alert.] Medical Decision Making [-year-old female first trimester with vaginal bleeding and pelvic pain. Ectopic versus miscarriage versus with bleeding. Labs are being obtained with an ultrasound. Her blood type is a positive.] Other additions or changes: [None] Dr. Yeboah is well of the [facility] RESIDENTIAL ASSISTANT group was consulted. She came down the ER evaluate the patient. She reviewed the ultrasound and labs. She reviewed the labs in their office. She is comfortable with patient being discharged home. Her quants are increasing. They will follow her up in the office this week. Currently we do not believe this to be an ectopic. I did discuss with the patient if she had increasing pain or heavier bleeding return. Also the risk of this being a threatened miscarriage. Patient doing well at 10:12 PM. Abdomen benign. She is comfortable being discharged home. History & Record Review Discussion w/independent historian: Patient Lab Data Attestation: I reviewed the patient's lab results. Lab results narrative: CBC normal. White count 9. H&H 12.1 and 38. Platelets 236. UA shows no white or red cells. No nitrates. Quantitative hCG was 7926. Blood type is a positive. Labs: Laboratory Results - last 24 hr 11/09/22 11/09/22 16:58 17:16 WBC 9.1 RBC 4.02 L Hgb 12.1 Hct 38.5 MCV 95.8 MCH 30.1 MCHC 31.4 L RDW Std Deviation 46.3 H RDW Coeff of [place] 13.0 Plt Count 236 MPV 10.0 Immature Gran % (Auto) 0.400 Neut % (Auto) 61.4 Lymph % (Auto) 29.6 Rogers % (Auto) 6.8 Eos % (Auto) 1.3 Baso % (Auto) 0.5 Absolute Neuts (auto) 5.6 Absolute Lymphs (auto) 2.70 Nucleated RBC % 0 HCG, Quant 7926 H Urine Color Yellow Urine Clarity Sl. Cloudy Urine pH 6.0 Ur Specific [place] 1.025 Urine Protein Negative Urine Glucose (UA) Normal Urine Ketones 15 H Urine Occult Blood 150 H Urine Nitrite Negative Urine Bilirubin Negative Urine Urobilinogen Normal Ur Leukocyte Esterase Negative Urine RBC 0 SEEN Urine WBC 0-5 SEEN Ur Squamous Epith Cells 5-10 SEEN Urine Bacteria 1+ Urine Mucus 0 SEEN Radiography Diagnostic Testing: Clinical Impression(s) from Imaging Studies Obstetrics Ultrasound 11/09/22 16:48 IMPRESSION: There is a moderate amount of fluid in the cul de sac. Small fluid collection within the uterus. Differential diagnosis includes early IUP with embryonic pole and yolk sac below the limits of sonographic resolution, blighted ovum and pseudo-gestational sac. Correlation with serum quantitative beta-hCG and follow up ultrasound is recommended. The possibility of ectopic cannot be excluded on the basis of this exam. Small subchorionic hemorrhage. Electronically Signed: Kenneth Hare MD at 19:31 EDT , Discharge Plan Triage Chief Complaint: Vag Bleeding ED Midlevel Provider: Henry Barreto ED Provider: Quique Gross Dx/Rx/DC Orders Clinical Impression: Threatened miscarriage, First trimester , Vaginal bleeding Instructions: ED Possible Miscarriage ... Prescriptions: No Action albuterol sulfate [Ventolin HFA] 1 INHALER inhaler 1 - 2 puff inhalation Q6H PRN PRN (Reason: Asthma) trazodone 150 mg PO/SL QHS ondansetron 4 mg tablet,disintegrating 4 mg PO Q8H PRN (Reason: nausea and vomiting) Qty: 10 0RF diphenhydramine-acetaminophen [Tylenol PM Extra Strength] 25-500 mg Tablet 1 tab PO QHS Rx Instructions: administer while awake prenat vit [id number] 35-5-1.2-400 mg Capsule 1 cap PO DAILY Primary Care Provider: LUPE SANDERSON Referrals: Deya Garcia DO [Med Staff - Active Staff] - As soon as possible Care Physician,No Primary [Non-Staff] - Activity Restrictions/Additional Instructions: Plenty of fluids and rest. Tylenol for any pain. Follow-up with the [facility] RESIDENTIAL ASSISTANT office this week to be reevaluated. Currently for trimester . Anytime you are bleeding there is a risk of a threatened miscarriage. Return to the emergency department if you have severe pain or heavy bleeding with clots. Disposition Disposition: Home, Self Care
[2022-11-09 18:19] LABS: hCG Titer Quant., Serum 7926 mIU/mL (1-3)
[2022-11-09 18:20] LABS: Bacteria 1+ /hpf (None Seen); Squamous Epithelial Cells - UA 5-10 SEEN /hpf (5-10); White Blood Cells 0-5 SEEN /hpf (0-5)
[2022-11-09 22:20] VITALS: BP 110/70; PULSE 75; RESP 18; O2SAT 100
--- NOTE | 2022-11-09 23:13 | PCM.CONS.GEN ---
Assessment & Plan Assessment/Plan (1) Vaginal bleeding: PLAN: Patient presents to the ER with right lower quadrant pain and spotting. Pelvic ultrasound images reviewed and gestational sac noted to be within the uterus. Serial hCG levels are rising appropriately. She is comfortable appearing on exam and abdomen is nonacute. Discussed with patient most likely threatened miscarriage based on clinical presentation. Will need follow-up in the office for a repeat ultrasound examination in 2 weeks. (2) First trimester : (3) Threatened miscarriage: HPI Consult Data Date of Consult: 11/09/22 HPI Narrative Reason for Consultation: r/o ectopic HPI Narrative: KENDALL RENAE, is a 36 F who presents with RLQ pain and spotting. She reports VB for several days. Mild RLQ pain. No lightheadedness, dizziness, heavy bleeding, severe pain, cramping. Had HCG levels done in the office. [facility] Medical History Abdominal pain Alcohol use Anemia Anxiety Back pain Bronchitis Bruising Depression Dietary restriction Dysautonomia-like disorder Easy bruising History of echocardiogram History of edema History of IBS History of irregular heartbeat Hypertension Hypoglycemia Kidney disease Kidney stones Migraines Nephrolithiasis Non-smoker Restless legs Seizures Shortness of breath on exertion Sleep apnea Wears glasses Home Medications albuterol sulfate 90 mcg/actuation aerosol inhaler (Ventolin HFA) 1 - 2 puff inhalation Q6H PRN PRN Asthma 03/22/13 [History Last Taken 05/24/14 08:49] trazodone 150 mg PO/SL QHS 12/31/20 [History Last Taken 06/05/21] ondansetron 4 mg disintegrating tablet 4 mg PO Q8H PRN nausea and vomiting #10 tabs 04/17/21 [Rx Last Taken 06/06/21] diphenhydramine 25 mg-acetaminophen 500 mg tablet (Tylenol PM Extra Strength) 1 tab PO QHS 10/22/21 [History Last Taken Unknown] 17-iron(35 mg-5 mg)-folic acid 1.2 mg-fish oil 400 mg capsule 1 cap PO DAILY 10/22/21 [History Last Taken Unknown] Allergy/AdvReac Type Severity Reaction Status Date / Time baclofen Allergy Severe incontinenc Verified 11/09/22 16:31 e codeine Allergy Hives Verified 11/09/22 16:31 metronidazole [From Flagyl] Allergy Shortness Verified 11/09/22 16:31 of breath morphine Allergy Hives Verified 11/09/22 16:31 shellfish derived Allergy Angioedema Verified 11/09/22 16:31 topiramate [From Topamax] Allergy Other Verified 11/09/22 16:31 tramadol AdvReac Severe seizures Verified 11/09/22 16:31 adhesive AdvReac Rash Verified 11/09/22 16:31 NSAIDS (Non-Steroidal AdvReac PT UNSURE Verified 11/09/22 16:31 Anti-Inflamma OF REACTION Family History Father No cardiac disease Mother No cardiac disease Other Arthritis Asthma Blood clot in vein Bowel disease Breast cancer CVA (cerebral vascular accident) Cervical cancer Depression Diabetes High cholesterol Hypertension Seizures Suicidal ideation Surgical History Hx of laparoscopy Previous section S/P breast lumpectomy S/P removal of right ovary S/P tonsillectomy Social History household members: spouse Smoking Status: Never smoker alcohol intake: current alcohol intake frequency: holidays/special occasions only substance use type: does not use what type of physical activity do you participate in: none Physical Exam Const alert and no apparent distress General Appearance: comfortable GI soft to palpation, non-tender and non-distended GI Narrative: No rebounding, no guarding, no rigidity Lab / Micro Data 11/09/22 17:16 Labs: Laboratory Results - last 24 hr 11/09/22 16:58: Urine Color Yellow, Urine Clarity Sl. Cloudy, Urine pH 6.0, Ur Specific [place] 1.025, Urine Protein Negative, Urine Glucose (UA) Normal, Urine Ketones 15 H, Urine Occult Blood 150 H, Urine Nitrite Negative, Urine Bilirubin Negative, Urine Urobilinogen Normal, Ur Leukocyte Esterase Negative, Urine RBC 0 SEEN, Urine WBC 0-5 SEEN, Ur Squamous Epith Cells 5-10 SEEN, Urine Bacteria 1+, Urine Mucus 0 SEEN 11/09/22 17:16: WBC 9.1, RBC 4.02 L, Hgb 12.1, Hct 38.5, MCV 95.8, MCH 30.1, MCHC 31.4 L, RDW Std Deviation 46.3 H, RDW Coeff of [place] 13.0, Plt Count 236, MPV 10.0, Immature Gran % (Auto) 0.400, Neut % (Auto) 61.4, Lymph % (Auto) 29.6, Bartholomew % (Auto) 6.8, Eos % (Auto) 1.3, Baso % (Auto) 0.5, Absolute Neuts (auto) 5.6, Absolute Lymphs (auto) 2.70, Nucleated RBC % 0, HCG, Quant 7926 H Radiology Impression Obstetrics Ultrasound 11/09/22 16:48 IMPRESSION: There is a moderate amount of fluid in the cul de sac. Small fluid collection within the uterus. Differential diagnosis includes early IUP with embryonic pole and yolk sac below the limits of sonographic resolution, blighted ovum and pseudo-gestational sac. Correlation with serum quantitative beta-hCG and follow up ultrasound is recommended. The possibility of ectopic cannot be excluded on the basis of this exam. Small subchorionic hemorrhage. Electronically Signed: Kenneth Hare MD at 19:31 EDT ,
== END 2022-11-09 22:21 | disposition home or self-care (01) ==
PROVIDERS: Nurse Practitioner; Emergency Provider Emergency Medicine; Visit Provider Emergency Medicine
DX: O20.0 Threatened abortion (principal); Z3A.01 Less than 8 weeks gestation of pregnancy; O16.1 Unspecified maternal hypertension, first trimester
CPT/HCPCS: 76817; 81001; 84702; 85025; 96361; 96374; 99283; J7030; A4216; J2405

== ENCOUNTER 2022-11-11 09:08 | Emergency (ER) | payer BC, SELFPAY ==
[2022-11-11 09:08] VITALS: BP 133/66; PULSE 87; RESP 16; TEMP 36.8; O2SAT 99; BMI 27.0
--- NOTE | 2022-11-11 09:25 | EDS_ITS ---
HPI HPI - GI History of Present Illness Chief Complaint: Abd Pain Narrative Narrative: 36-year-old G2, P0 at approximately 5 to 6 weeks gestation presents with vaginal bleeding, and right lower quadrant abdominal pain that she has had over the last few days. She states she was seen in the emergency department for vaginal bleeding which has not significantly changed. She states when she wipes she has dark red to brown blood. She had ultrasound performed on Thursday, 2 days ago, and was supposed to follow-up with her [facility], but she states she has been having increased diarrhea and right lower quadrant abdominal pain. She denies any fever, no nausea or vomiting, but the pain in her abdomen on the right side is getting worse. Of note, she has had right salpingo-oophorectomy remotely. However, she states she still has her appendix and her gallbladder. [facility] Medical History Abdominal pain Alcohol use Anemia Anxiety Back pain Bronchitis Bruising Depression Dietary restriction Dysautonomia-like disorder Easy bruising History of echocardiogram History of edema History of IBS History of irregular heartbeat Hypertension Hypoglycemia Kidney disease Kidney stones Migraines Nephrolithiasis Non-smoker Restless legs Seizures Shortness of breath on exertion Sleep apnea Wears glasses Home Medications albuterol sulfate 90 mcg/actuation aerosol inhaler (Ventolin HFA) 1 - 2 puff inhalation Q6H PRN PRN Asthma 03/22/13 [History Last Taken 05/24/14 08:49] trazodone 150 mg PO/SL QHS 12/31/20 [History Last Taken 06/05/21] ondansetron 4 mg disintegrating tablet 4 mg PO Q8H PRN nausea and vomiting #10 tabs 04/17/21 [Rx Last Taken 06/06/21] diphenhydramine 25 mg-acetaminophen 500 mg tablet (Tylenol PM Extra Strength) 1 tab PO QHS 10/22/21 [History Last Taken Unknown] 17-iron(35 mg-5 mg)-folic acid 1.2 mg-fish oil 400 mg capsule 1 cap PO DAILY 10/22/21 [History Last Taken Unknown] Allergy/AdvReac Type Severity Reaction Status Date / Time baclofen Allergy Severe incontinenc Verified 11/11/22 09:14 e codeine Allergy Hives Verified 11/11/22 09:14 metronidazole [From Flagyl] Allergy Shortness Verified 11/11/22 09:14 of breath morphine Allergy Hives Verified 11/11/22 09:14 shellfish derived Allergy Angioedema Verified 11/11/22 09:14 topiramate [From Topamax] Allergy Other Verified 11/11/22 09:14 tramadol AdvReac Severe seizures Verified 11/11/22 09:14 adhesive AdvReac Rash Verified 11/11/22 09:14 NSAIDS (Non-Steroidal AdvReac PT UNSURE Verified 11/11/22 09:14 Anti-Inflamma OF REACTION Family History Father No cardiac disease Mother No cardiac disease Other Arthritis Asthma Blood clot in vein Bowel disease Breast cancer CVA (cerebral vascular accident) Cervical cancer Depression Diabetes High cholesterol Hypertension Seizures Suicidal ideation Surgical History Hx of laparoscopy Previous section S/P breast lumpectomy S/P removal of right ovary S/P tonsillectomy Social History household members: spouse Smoking Status: Never smoker alcohol intake: current alcohol intake frequency: holidays/special occasions only substance use type: does not use what type of physical activity do you participate in: none ROS ROS ED ROS Narrative Constitutional: No fever, no chills. HEENT: No sore throat. No neck pain. No loss of vision. No rhinorrhea. Cardiovascular: No chest pain. No palpitations. No pedal edema. Respiratory: No cough, no shortness of breath. Abdominal: Right lower quadrant abdominal pain. Positive nausea. No vomiting. Worsening diarrhea. Genitourinary: No dysuria. No hematuria. Musculoskeletal: No myalgias. No arthralgias. Neurologic: No headaches. No dizziness. No lightheadedness. Skin: No rash. No change in color. Psychiatric: No depression. No anxiety. EXAM Physical Exam Narrative Exam Narrative: Afebrile. Vital signs noted. HEENT: Normocephalic. Atraumatic. PERRL, EOMI. Neck soft and supple. No point tenderness or step off. Cardiovascular: Regular rate and rhythm. No murmurs, rubs, or gallops appreciated. Respiratory: No tachypnea. Lungs clear to auscultation bilaterally. Gastrointestinal: Abdomen soft, positive tenderness palpation right lower quadrant with normoactive bowel sounds. No rebound or guarding. Neurological: Awake. Alert. Nonfocal, nonlateralizing. Skin: No rash. Normal color. No pallor. Musculoskeletal: No pedal edema. Full range of motion extremities. Const Vital Signs: 11/11/22 09:08 Temperature 98.2 F Temperature Source Temporal Pulse Rate 87 Respiratory Rate 16 Blood Pressure 133/66 H Blood Pressure Mean 88 Pulse Ox 99 Oxygen Delivery Method Room Air MDM MDM MDM Narrative Medical decision making narrative: In the differential diagnosis would be acute appendicitis versus ureterolithiasis. She has minor complications as she is currently in her first trimester of . She has multiple allergies to pain medications and NSAIDs, but states she usually takes Tylenol or Dilaudid. She was administered 0.5 mg initially for analgesia along with Zofran, and a bolus of IV fluids. I had a lengthy discussion with the patient regarding CT imaging with IV contrast and radiation exposure to her and her unborn fetus. Additionally, I discussed the patient with Dr. Sky with [facility] on-call for Dr. Garcia who agrees with risk-benefit ratio and obtaining a CT scan to help rule out an acute appendicitis given the patient's worsening pain. I reviewed her laboratory work from today and she has a normal white count of 7.5, hemoglobin normal at 12.7, platelet count normal at 233. LFTs show low AST of 11, ALT of 22, alk phos normal at 55. BUN is normal at 10, creatinine normal at 0.84. Quantitative beta-hCG has increased from 7000-12,001 168 today. Urinalysis was reviewed and is negative for infection. I do not feel any antibiotics are indicated. She was ordered another dose of Dilaudid and Zofran. I reviewed the CT imaging and the radiology report which shows no evidence of acute appendicitis. There is a small amount of free fluid in the cul-de-sac which I think is nonspecific. Upon repeat examination, she is resting comfortably and looking at the results of her CT scan on her cellular telephone. At this point in time, I do not feel that she requires admission. I feel she can follow-up with her GUN STOCK CHECKER and she states she has an ultrasound scheduled for a week from this Thursday. Additionally, she has a follow-up appointment with her primary care provider tomorrow, and with a sliver lap tender. Given her negative work-up today, I feel she be discharged safely home with follow-up. Patient and mother are agreeable to the plan. Disposition is discharged home in stable condition. History & Record Review Discussion w/independent historian: Patient Additional record(s) reviewed:: Prior ED visit and Prior labs Lab Data Attestation: I reviewed the patient's lab results. Labs: Laboratory Results - last 24 hr 11/11/22 11/11/22 09:28 09:56 WBC 7.5 RBC 4.22 Hgb 12.7 Hct 40.5 MCV 96.0 MCH 30.1 MCHC 31.4 L RDW Std Deviation 46.1 H RDW Coeff of [place] 13.1 Plt Count 233 MPV 9.8 Immature Gran % (Auto) 0.300 Neut % (Auto) 63.2 Lymph % (Auto) 28.0 Bacon % (Auto) 6.8 Eos % (Auto) 1.3 Baso % (Auto) 0.4 Absolute Neuts (auto) 4.7 Absolute Lymphs (auto) 2.10 Nucleated RBC % 0 Sodium 137 Potassium 3.8 Chloride 109 H Carbon Dioxide 22.0 Anion Gap 6 BUN 10 Creatinine 0.84 Estim Creat Clear Calc 80.72 Est GFR (MDRD) Af Amer 99 Est GFR (MDRD) Non-Af 82 BUN/Creatinine Ratio 11.9 Glucose 92 Calcium 9.0 Total Bilirubin 0.40 AST 11 L ALT 22 Alkaline Phosphatase 55 Total Protein 7.8 Albumin 3.8 Globulin 4.0 Albumin/Globulin Ratio 1.0 HCG, Quant 55374 H Urine Color Yellow Urine Clarity Clear Urine pH 7.0 Ur Specific [place] 1.010 Urine Protein Negative Urine Glucose (UA) Normal Urine Ketones Negative Urine Occult Blood 10 H Urine Nitrite Negative Urine Bilirubin Negative Urine Urobilinogen Normal Ur Leukocyte Esterase Negative Urine RBC 0 SEEN Urine WBC 0 SEEN Ur Squamous Epith Cells 0-5 SEEN Urine Bacteria 0 SEEN Urine Mucus 0 SEEN Radiography Diagnostic Testing: Clinical Impression(s) from Imaging Studies Abdomen/Pelvis CT 11/11/22 10:12 IMPRESSION: 3.5 cm x 3.3 cm cyst in the left ovary. Small amount of free fluid is seen in the right side of the cul-de-sac. Electronically Signed: Gino Morgan MD at 10:36 EDT , Discharge Plan Triage Chief Complaint: Abd Pain ED Provider: Rob Pedraza Dx/Rx/DC Orders Clinical Impression: Abdominal pain, right lower quadrant, First trimester , Diarrhea Instructions: First Trimester, ED Abdominal Pain Unkn Cause Fem, ED Pain, Acute, Uncertain Cause Prescriptions: No Action albuterol sulfate [Ventolin HFA] 1 INHALER inhaler 1 - 2 puff inhalation Q6H PRN PRN (Reason: Asthma) trazodone 150 mg PO/SL QHS ondansetron 4 mg tablet,disintegrating 4 mg PO Q8H PRN (Reason: nausea and vomiting) Qty: 10 0RF diphenhydramine-acetaminophen [Tylenol PM Extra Strength] 25-500 mg Tablet 1 tab PO QHS Rx Instructions: administer while awake prenat vit [id number],6 35-5-1.2-400 mg Capsule 1 cap PO DAILY Primary Care Provider: LUPE SANDERSON Referrals: LUPE SANDERSON [Other] Deya Garcia DO [Med Staff - Active Staff] - 3-5 Days if not improving Disposition Disposition: Home, Self Care
[2022-11-11 09:34] LABS: Absolute Neutrophil Count 4.7 X10^3/uL (2.0-7.7); Basophil# 0.03 X10^3/uL; Basophil% 0.4 % (0-1); Eosinophils% 1.3 % (0-5); Hematocrit 40.5 % (37-47); Hemoglobin 12.7 g/dL (12.0-15.0); Mean Corp Hgb Conc 31.4 g/dL (32-36); Mean Corpuscular Hgb 30.1 pg (27.0-32.0); Mean Platelet Vol. 9.8 fl (6.2-12.0); Monocyte# 0.51 X10^3/uL; Monocyte% 6.8 % (0-10); NRBC Flagged by Analyzer 0 % (0-5); Neutrophil # 4.74 X10^3/uL (2.7-7.7); Neutrophil % 63.2 % (47-70); Platelet Count 233 K/mm3 (150-450); RBC Distribution Width CV 13.1 % (11.6-14.6); RBC Distribution Width SD 46.1 fl (35.1-43.9); Red Blood Count 4.22 M/mm3 (4.2-5.4); White Blood Count 7.5 K/mm3 (4.4-11.0)
[2022-11-11 09:50] LABS: AST(SGOT) 11 U/L (15-37); Alanine Aminotransfer ALT/SGPT 22 U/L (13-56); Albumin, Serum 3.8 g/dL (3.2-5.0); Alkaline Phosphatase 55 U/L (45-117); Anion Gap 6 (5-15); BUN 10 mg/dL (7-18); BUN/Creat Ratio 11.9 RATIO (10-20); Chloride 109 mmol/L (98-107); Creatinine, Serum 0.84 mg/dL (0.55-1.02); EST Glomerular Filtration Rate 82 mL/min (>60); Est Glom Filt Rate - Afr Amer 99 mL/min (>60); Estimated Creatinine Clearance 80.72 ml/min; Glucose 92 mg/dL (74-106); Potassium 3.8 mmol/L (3.5-5.1); Protein, Total 7.8 g/dL (6.4-8.2); Sodium Level 137 mmol/L (136-145)
[2022-11-11] MEDS: 0.9% Normal Saline (1000mL) 1,000 ML 1000 ML IV (09:53)
[2022-11-11] MEDS: HYDROmorphone 0.5 MG/0.5 ML SYRINGE IV (09:53)
[2022-11-11 10:03] LABS: Bacteria 0 SEEN /hpf (None Seen); Mucous, Urine 0 SEEN /hpf (<or=2+); Red Blood Cells-Urine 0 SEEN /hpf (0-5); White Blood Cells 0 SEEN /hpf (0-5)
[2022-11-11 10:05] LABS: Color, Urine Yellow (Yellow); Glucose, Dipstick Normal (Normal); Ketone-Dipstick Negative (Negative); Leukocyte Esterase-Dipstick Negative /ul (Negative); Nitrite-Dipstick Negative (Negative); Occult Blood-Urine 10 /ul (Negative); Protein-Dipstick Negative (Negative); Urine Bilirubin Dipstick Negative (Negative); Urine Clarity Clear (Clear); Urine Urobilinogen Normal (Normal)
[2022-11-11 10:05] LABS: hCG Titer Quant., Serum 12168 mIU/mL (1-3)
--- NOTE | 2022-11-11 10:12 | CT_ITS ---
STUDY: CT ABDOMEN AND PELVIS WITH CONTRAST REASON FOR EXAM: Female, 36 years old. RLQ pain -- Patient 5-6 weeks gestation RADIATION DOSAGE (If Supplied By Facility): CTDIvol = ( 9.97 ) mGy, DLP = ( 504.36 ) mGycm TECHNIQUE: Transaxial images were obtained from the dome of the diaphragm to the symphysis pubis without oral contrast. IV 100mL Isovue-300 was administered. Sagittal and coronal images were reconstructed. Individualized dose optimization techniques were used for this CT. COMPARISON: Comparison is made with prior study February 24, 2022. FINDINGS: The visualized lung bases are unremarkable. The visualized portions of the heart are within normal limits. Normal liver. Normal gallbladder and extrahepatic biliary system. Normal spleen. Normal pancreas. Normal bilateral adrenal glands. Normal right kidney. Normal left kidney. Normal visualized stomach. Normal small intestine. Normal colon. The appendix is visualized and appears normal. Normal abdominal aorta. Normal inferior vena cava. Normal retroperitoneum. Normal urinary bladder. There is a 3.5 cm by 3.3 cm cyst in the left ovary. Small amount of free fluid is seen in the right side of the cul-de-sac. Normal abdominal wall. Normal osseous structures. CT/Abdomen/Pelvis W IV Cont ONLY IMPRESSION: 3.5 cm x 3.3 cm cyst in the left ovary. Small amount of free fluid is seen in the right side of the cul-de-sac. Electronically Signed: Gino Morgan MD at 10:36 EDT ,
[2022-11-11 10:18] LABS: Squamous Epithelial Cells - UA 0-5 SEEN /hpf (5-10)
[2022-11-11 11:10] VITALS: BP 131/67; PULSE 71; RESP 15; O2SAT 98
== END 2022-11-11 11:13 | disposition home or self-care (01) ==
PROVIDERS: Emergency Provider Emergency Medicine; Visit Provider Emergency Medicine
DX: O26.891 Other specified pregnancy related conditions, first trimester (principal); R19.7 Diarrhea, unspecified; O20.9 Hemorrhage in early pregnancy, unspecified; O09.521 Supervision of elderly multigravida, first trimester; Z3A.01 Less than 8 weeks gestation of pregnancy; R10.31 Right lower quadrant pain; Z90.721 Acquired absence of ovaries, unilateral; O99.891 Other specified diseases and conditions complicating pregnancy
CPT/HCPCS: 74177; 80053; 81001; 84702; 85025; 96361; 96374; 99284; J7030; Q9967; A4216

== ENCOUNTER 2022-11-27 11:08 | Day surgery (SDC) | payer BC, SELFPAY ==
[2022-11-27] VITALS (8 sets, daily range): BP systolic 89–118; BP diastolic 55–74; PULSE 68–94; RESP 16; TEMP 36.5–37.1; O2SAT 95–100; BMI 25.5
--- NOTE | 2022-11-27 | POC_PTH ---
PATIENT: KENDALL RENAE [place] [facility] [id number] AGE/SX: 37/F ROOM: RE11/27/[address]: Dr. Yvonne Castañeda MD : 1985 BED: DIS: 11/27/2022 SPEC #: [id number] RECD: 11/27/22 14:20 STATUS: CLARA COCHRAN #: [id number] SPEEDY: 11/27/22 00:[address]: Yvonne Castañeda DEPT: SURGICAL PATHOLOGY RECD BY: Yves Zamora Tissues: Product of conception, NOS Procedures: Surgery Specimen Level IV HEADER OPERATION: Suction dilation and curettage, Anora testing PRE-OP DIAGNOSIS: Missed TISSUE SUBMITTED: Products of conception MICROSCOPIC DIAGNOSIS Products of conception, dilation and curettage: [place], gestational endometrium and immature chorionic villi (products of conception), clinically missed . CECILY:abby 12/01/2022 COMMENT Results of Anora study will be reported as an addendum. MICROSCOPIC DESCRIPTION Slides are reviewed. GROSS DESCRIPTION Received without fixative is one container labeled with the patient's name and designated products of conception. The specimen consists of multiple irregular fragments of light to dark falk soft tissue that in aggregate measure 10.0 x 8.0 x 0.3 cm. [facility] Consultant portions are submitted for Anora testing. [facility] Consult[facility] portions are submitted in one cassette. / AM:abby 11/28/2022 TC:5 CPT: 07345
--- NOTE | 2022-11-27 12:05 | HP.PCM.OB_ITS ---
History and Physical Date of Admission: 11/27/22 Pre-Op History and Physical ? HPI: The patient is a 36 year old female presenting for pre-operative visit. She is scheduled for Suction D&C, for missed ab on TBD (November 2022 week of 11/24). Procedure discussed along with risks, benefits and complications. Other alternatives discussed for management. Consent form signed? Yes. ? ? PAST MEDICAL HISTORY PAST MEDICAL HISTORY Diagnosis Date ? Abnormal Pap smear of cervix ? ? +HPV ? Anemia ? ? Asthma ? ? Breast cyst, left 2019 ? Chlamydia ? ? Depression/anxiety ? ? Herpes simplex virus (HSV) infection ? ? Hx of ovarian cyst ? ? Hx: UTI (urinary tract infection) ? ? Hypertension ? ? Hypoglycemia 5 years ago ? Infectious mononucleosis ? ? Infertility, female ? ? Insomnia ? ? PID (acute pelvic inflammatory disease) 2014 ? Placental abruption ? ? depression ? ? Recurrent UTI ? ? Renal calculi ? ? recurrent kidney stones ? 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 Sickle cell anemia (HCC) ? ? Syncope and collapse ? ? with pseudo-seizures ? Thyroid disease ? ? ? PAST SURGICAL HISTORY PAST SURGICAL HISTORY Procedure Laterality Date ? BREAST CYST ASPIRATION - ADDTL LESION ? 2018 ? Dr [place] ? CERVIX UTERI CONIZA LP ELCTRO EXCI ? 2007 ? SECTION HX ? ? ? classical incision ? CT ABDOMEN ? 09/10/2004 ? [facility] ? CT BRAIN ? 06/19/2005 ? [facility] ? L'SCOPE DX W/WO BRUSHINGS/WASHINGS ? 03/17/2022 ? Dr Myers-pelvic pain-endometriosis ruled out ? L'SCOPE DX W/WO BRUSHINGS/WASHINGS ? 03/12/2020 ? lysis of adhesions-Dr Myers ? LITHOTRIPSY XTRCORP SHOCK WAVE ? 04/16/2006 ? Lithotripsy Right kidney ? OVARY SURGERY HX ? 04/10/2013 ? Excision of right fallopian tube and ovary ? PAST SURGICAL HISTORY OF ? 02/16/2003 ? right ear cartilage repair ? TONSILLECTOMY AND ADENOIDECTOMY HX ? 12/17/2012 ? ? ? CURRENT MEDICATIONS Current Outpatient Medications Medication Sig Dispense Refill ? sertraline (ZOLOFT) 100 mg tablet Take 100 mg by mouth once daily. ? ? ? albuterol HFA (PROVENTIL HFA, VENTOLIN HFA) 90 mcg/actuation inhaler Inhale 1 Puff as instructed every 4 hours as needed. ? ? ? promethazine (PHENERGAN) 25 mg tablet Take 25 mg by mouth every 6 hours as needed. ? ? ? traZODone (DESYREL) 100 mg tablet Take 100 mg by mouth. ? ? ? vit/iron fum/folic ac (-FOLIC ACID ORAL) Take by mouth. ? ? ? ondansetron orally disintegrating (ZOFRAN ODT) 4 mg disintegrating tablet Take 1 tablet by mouth every 6 hours as needed for nausea/vomiting. 20 tablet 0 ? tamsulosin (FLOMAX) 0.4 mg Take 1 capsule by mouth daily at bedtime for 7 days. 7 capsule 0 ? omeprazole (PRILOSEC) 20 mg capsule Take 1 capsule by mouth once daily for 28 days. 28 capsule 0 ? diphenhydrAMINE (BENADRYL) 25 mg capsule Take 1 capsule by mouth every 6 hours as needed (with Compazine). 20 capsule 0 ? gabapentin (NEURONTIN) 100 mg capsule Take 1 capsule by mouth once daily. ? ? ? tiZANidine HCl (ZANAFLEX) 4 mg capsule Take 4 mg by mouth three times daily as needed for Muscle Spasm. ? ? ? levETIRAcetam (KEPPRA) 500 mg tablet Take 500 mg by mouth twice daily. ? ? ? citalopram hydrobromide (CELEXA) 10 mg tablet Take 10 mg by mouth once daily. ? ? ? ibuprofen (MOTRIN) 600 mg tablet Take 600 mg by mouth every 6 hours as needed. ? ? ? oxyCODONE-acetaminophen (PERCOCET) 5-325 mg tablet Take 1 tablet by mouth every 4 hours as needed. ? ? ? traMADol (ULTRAM) 50 mg tablet Take 50 mg by mouth every 6 hours as needed. ? ? ? HYDROCODONE/ACETAMINOPHEN (NORCO ORAL) Take by mouth. ? ? ? cyclobenzaprine (FLEXERIL) 10 mg tablet Take 10 mg by mouth daily at bedtime. ? ? ? diphenhydrAMINE (SLEEP AID, DIPHENHYDRAMINE,) 50 mg capsule Take 50 mg by mouth every 6 hours as needed. ? ? ? levETIRAcetam (KEPPRA) 500 mg tablet Take 0.5 tablets by mouth twice daily. 30 tablet 11 ? rizatriptan (MAXALT) 10 mg tablet Take 1 tablet by mouth as needed for Migraine Headache (see administration instructions) (at onset of headache. May repeat after 2 hours.). 12 tablet 3 ? norethindrone-e.estradiol-iron (LO LOESTRIN FE) 1 mg-10 mcg(24) /10 mcg (2) ORAL Tab Take 1 tablet by mouth once daily. ? ? ? No current facility-administered medications for this visit. ? ? ALLERGIES: Shellfish Containing Products, Adhesive, Codeine, Flagyl [Metronidazole], Morphine, Nsaids (Non-Steroidal Anti-Inflammatory Drug), and Topamax [Topiramate] ? PERSONAL HISTORY: SOCIAL HISTORY Social History ? Tobacco Use ? Smoking status: Never ? Smokeless tobacco: Never Vaping Use ? Vaping Use: Never used Substance Use Topics ? Alcohol use: No ? Drug use: No ? FAMILY HISTORY: FAMILY HISTORY FAMILY HISTORY Problem Relation Age of Onset ? Stroke Father ? ? No Known Problems Sister ? ? Hypertension Maternal Grandmother ? ? Blood Clots Maternal Grandmother ? ? other (Hypoglycemia) Maternal Grandfather ? ? Heart Maternal Grandfather ? ? Diabetes Maternal Grandfather ? ? Breast Cancer Paternal Grandmother ? ? Heart Attack Paternal Grandfather ? ? other (epilepsy) Half-sister ? ? ? REVIEW OF SYMPTOMS: negative except as noted above PHYSICAL EXAMINATION: ? VITALS: Blood pressure 108/70, height 5' 4 (1.626 m), weight 148 lb (67.1 kg), last menstrual period 10/02/2022. ? GENERAL: The patient is well nourished, well hydrated in no acute distress. , The patient is oriented to time, place, and person. NECK: full range of motion ? GENITALIA: Normal external genitalia, Urethral meatus normal, normal vagina and normal vaginal tone, normal cervix, and dark brown blood in vault. Cervix closed. ? IMPRESSION: 36yo with missed - 6 weeks ? PLAN: Suction D&C, with ANORA TESTING requested ? Pt has been counseled on risks/benefits and alternatives of surgery including but not limited to anesthesia, bleeding, infection, uterine perforation with subsequent injury to pelvic structures including bowel, bladder, ureters and vessels. Pt wishes to proceed with surgery at this time. Retained POC, risk of transfusion. PRE OP labs and Doxycycline ordered at [facility] ? I have reviewed and updated past medical and surgical history, medications and allergies Lolis Chaidez, MD ?1:13 PM
[2022-11-27] MEDS: Lactated Ringers 1,000 ML 15 ML IV (12:13)
[2022-11-27 12:20] LABS: Hematocrit 40.4 % (37-47); Hemoglobin 12.8 g/dL (12.0-15.0); Mean Corp Hgb Conc 31.7 g/dL (32-36); Mean Corpuscular Hgb 30.1 pg (27.0-32.0); Mean Corpuscular Volume 95.1 fL (81-99); Mean Platelet Vol. 10.7 fl (6.2-12.0); Platelet Count 218 K/mm3 (150-450); RBC Distribution Width CV 12.7 % (11.6-14.6); RBC Distribution Width SD 44.1 fl (35.1-43.9); Red Blood Count 4.25 M/mm3 (4.2-5.4); White Blood Count 8.6 K/mm3 (4.4-11.0)
[2022-11-27] MEDS: Doxycycline 100 MG CAPSULE 200 MG PO (12:24)
--- NOTE | 2022-11-27 13:50 | OP.PCM_ITS ---
Report of Operation Date of Procedure: 11/27/22 Pre-Operative Diagnosis: Missed ab 6 weeks Post-Operative Diagnosis: same Surgery/Procedure Performed:: Suction D&C Description of Surgical Findings:: Uterus 6 weeks size, Anora testing performed. 7mm suction catheter used Surgeon: Lolis Jacob jewelry mold maker: None Type of Anesthesia: MAC Specimen's removed: products of conception Drains: none Estimated Blood Loss (mL): <5cc Fluids Replaced: 700 Description of Procedure: After informed consent was obtained patient was taken to OR and placed in supine position. Anesthesia was given. patient was placed in yellow fin stirrups and prepped and draped in normal sterile fashion. bladder was drained with straight catheter with approximately 200cc of clear yellow urine expelled. Weighted speculum placed in posterior fornix of vaginal, single tooth tenaculum was used to gently grasped anterior lip of cervix. . Cervix was then gently dilated in an incremental fashion. Was adequate dilation was achieved the 7mm [place] suction catheter was placed. suction curettage performed until no tissue was expelled and cavity was deemed empty. The tissue was then sent for testing- ANORA testing. No complications. At this time procedure was deemed complete and successful. Tenaculum removed, speculum removed. Good hemostasis appreciated. Vaginal sweep was negative. Instrument and lap count correct x 2. I anticipate normal postoperative course. Grafts/Implants Used: none Procedure Start Time: 13:43 Procedure Stop Time: 13:48 Complications none Admit VTE Documentation VTE Present on Admission: Yes VTE Mechan Device Prophylaxis: SCD's VTE Pharm Prophylaxis ordered?: No Reason prophylaxis not ordered:: Procedure Not Indicated
--- NOTE | 2022-11-27 13:54 | DCINST_ITS ---
Discharge Instructions Diet Discharge Diet: No restrictions Activity May resume sexual activity in: 1 week Dressing / Incision Call your doctor if you observe: Fever of 101 or Higher, Inability to urinate, Using more than 1 pad per hour and Uncontrolled pain Follow Up Care Please Follow Up With: Lolis Jacob MD When: 1-2 weeks post OP if you need an appointment please call [phone] Test Results: Test results from this visit will be discussed in further detail at your follow- up appointment, if applicable. Discharge Plan Admission Attending Provider: Yvonne Castañeda Primary Care Provider: Winsome Cuevas CNP Discharge Orders/Prescriptions Prescriptions: No Action albuterol sulfate [Ventolin HFA] 1 INHALER inhaler 1 - 2 puff inhalation Q6H PRN PRN (Reason: Asthma) trazodone 150 mg PO/SL QHS ondansetron 4 mg tablet,disintegrating 4 mg PO Q8H PRN (Reason: nausea and vomiting) Qty: 10 0RF diphenhydramine-acetaminophen [Tylenol PM Extra Strength] 25-500 mg Tablet 1 tab PO QHS Rx Instructions: administer while awake prenat vit [id number],6 35-5-1.2-400 mg Capsule 1 cap PO DAILY sertraline [Zoloft] 100 mg tablet 100 mg PO DAILY Referrals / Follow Up: Winsome Cuevas CNP [Other] Disposition Disposition (needs filled in before D/C Order can be placed): Home, Self Care
[2022-11-27] MEDS: Oxycodone/Apap 5/325 Tablet PO (14:47)
[2022-12-01 03:36] LABS: Pathology Specimen OB SEE PATHOLOGY REPORT
== END 2022-11-27 15:25 | disposition home or self-care (01) ==
LOC: SDC 11:09 → AC 11:11
PROVIDERS: Obstetrics & Gynecology; Referring Provider Obstetrics & Gynecology; Visit Provider Obstetrics & Gynecology
DX: O02.1 Missed abortion (principal); G40.909 Epilepsy, unspecified, not intractable, without status epilepticus; G47.00 Insomnia, unspecified; I12.9 Hypertensive chronic kidney disease with stage 1 through stage 4 chronic kidney disease, or unspecified chronic kidney disease; N18.2 Chronic kidney disease, stage 2 (mild); K21.9 Gastro-esophageal reflux disease without esophagitis; Z90.721 Acquired absence of ovaries, unilateral; Z87.19 Personal history of other diseases of the digestive system; F32.A Depression, unspecified; F41.9 Anxiety disorder, unspecified
CPT/HCPCS: 59820; 01965; 85027; 86850; 86900; 86901; 88305; J7120; J2405

== ENCOUNTER 2022-12-15 09:17 | Emergency (ER) | payer BC, SELFPAY ==
[2022-12-15 09:18] VITALS: BP 123/91; PULSE 100; RESP 16; TEMP 36.3; O2SAT 99; BMI 26.1
--- NOTE | 2022-12-15 10:04 | EDS_ITS ---
HPI HPI - Female History of Present Illness Chief Complaint: Vag Bleeding Pain Pain: Positive for Pelvic Pain Onset: Today Context: Gradual Onset Timing: Continuous Quality: Positive for Cramping and Stabbing Location: LLQ and Suprapubic Bleeding Issue: Positive for Vaginal bleeding and Passing tissue Onset: Today Context: Gradual Onset Timing: Continuous Current Severity: Heavy Current pads/hr: 1 Associated Symptoms Associated Symptoms: Positive for Hematuria; Negative for Dysuria, Frequency or Urgency Narrative Narrative: Patient presents with vaginal bleeding and pelvic pain that began today. Patient states she had a recent miscarriage. Patient states that a D&C after this on 11/27/2021. Patient states she then took Cytotec after that. Patient states her bleeding became heavier today. Patient states it is dark blood. Patient states she is saturating 1 pad per hour. Patient describes her pain as cramping and stabbing. Patient states it is over the left adnexal area and over the suprapubic area. Patient states he knows he has a left ovarian cyst. Patient states she has had a previous right salpingo-oophorectomy. Patient states that lifting makes her bleeding worse. Patient states nothing makes it better. [facility] Medical History Alcohol use Anemia Anxiety Back pain Bronchitis Depression Dietary restriction Difficult intravenous access Dysautonomia-like disorder Easy bruising History of echocardiogram History of edema History of IBS History of irregular heartbeat Hypertension Hypoglycemia Kidney disease Migraines Nephrolithiasis Non-smoker Restless legs Seizures Shortness of breath on exertion Wears glasses Home Medications albuterol sulfate 90 mcg/actuation aerosol inhaler (Ventolin HFA) 1 - 2 puff inhalation Q6H PRN PRN Asthma 03/22/13 [History Last Taken 05/24/14 08:49] trazodone 150 mg PO/SL QHS 12/31/20 [History Last Taken 06/05/21] ondansetron 4 mg disintegrating tablet 4 mg PO Q8H PRN nausea and vomiting #10 tabs 04/17/21 [Rx Last Taken 06/06/21] diphenhydramine 25 mg-acetaminophen 500 mg tablet (Tylenol PM Extra Strength) 1 tab PO QHS 10/22/21 [History Last Taken Unknown] 17-iron(35 mg-5 mg)-folic acid 1.2 mg-fish oil 400 mg capsule 1 cap PO DAILY 10/22/21 [History Last Taken Unknown] sertraline 100 mg tablet (Zoloft) 100 mg PO DAILY 11/25/22 [History Last Taken Unknown] oxycodone-acetaminophen 5 mg-325 mg tablet (Percocet) 1 tab PO Q8H PRN pain 3 days #10 tabs 12/15/22 [Rx Last Taken Unknown] Allergy/AdvReac Type Severity Reaction Status Date / Time baclofen Allergy Severe incontinenc Verified 12/15/22 09:18 e codeine Allergy Hives Verified 12/15/22 09:18 metronidazole [From Flagyl] Allergy Shortness Verified 12/15/22 09:18 of breath morphine Allergy Hives Verified 12/15/22 09:18 shellfish derived Allergy Angioedema Verified 12/15/22 09:18 topiramate [From Topamax] Allergy Other Verified 12/15/22 09:18 tramadol AdvReac Severe seizures Verified 12/15/22 09:18 adhesive AdvReac Rash Verified 12/15/22 09:18 NSAIDS (Non-Steroidal AdvReac PT UNSURE Verified 12/15/22 09:18 Anti-Inflamma OF REACTION Family History Father No cardiac disease Mother No cardiac disease Other Arthritis Asthma Blood clot in vein Bowel disease Breast cancer CVA (cerebral vascular accident) Cervical cancer Depression Diabetes High cholesterol Hypertension Seizures Suicidal ideation Surgical History Hx of laparoscopy Previous section S/P breast lumpectomy S/P removal of right ovary S/P tonsillectomy Social History household members: spouse Smoking Status: Never smoker alcohol intake: current alcohol intake frequency: holidays/special occasions only substance use type: does not use what type of physical activity do you participate in: none ROS ROS ED Constitutional Constitutional ED: Denies chills or fever(s) Eyes Eyes: Denies blurry vision or change in vision ENT ENT ED: Denies rhinorrhea or sore throat Cardiovascular Cardiovascular: Denies chest pain or palpitations Respiratory/Chest Respiratory/Chest: Reports dyspnea; Denies cough Gastrointestinal Gastrointestinal: Reports nausea and vomiting Genitourinary Genitourinary ED: Reports hematuria; Denies dysuria Musculoskeletal Musculoskeletal: Denies back pain or neck pain Integumentary Denies abscess or rash Neurologic Neurologic: Denies headache(s) or weakness Allergic/Immunologic Allergic/Immunologic ED: Denies mouth swelling or urticaria EXAM Physical Exam Const Vital Signs: 12/15/22 09:18 12/15/22 10:51 12/15/22 13:37 Temperature 97.4 F L Temperature Source Temporal Pulse Rate 100 71 Pulse Rate [Lying] 69 Pulse Rate [Sitting (for 1 minute prior to obtaining)] 72 Pulse Rate [Standing (for 1 minute prior to obtaining)] 74 Respiratory Rate 16 Blood Pressure 123/91 H 117/79 Blood Pressure [Lying] 111/66 Blood Pressure [Sitting (for 1 minute prior to obtaining)] 111/75 Blood Pressure [Standing (for 1 minute prior to obtaining)] 125/70 H Blood Pressure Mean 101 91 Blood Pressure Mean [Lying] 81 Blood Pressure Mean [Sitting (for 1 minute prior to obtaining)] 87 Blood Pressure Mean [Standing (for 1 minute prior to obtaining)] 88 Pulse Ox 99 Oxygen Delivery Method Room Air Positive well nourished and well developed General Appearance ED: well developed and NAD HEENT Reports moist mucous membranes Neck supple and no JVD Resp normal respiratory effort and clear to auscultation bilaterally Cardio regular rate and regular rhythm GI soft to palpation and non-distended Palpation: tender LLQ and suprapubic; Negative for guarding Extremity normal to inspection General Extremety ED: Negative for edema or tenderness General Extremity: Negative for edema Neuro oriented x3, CN's II-XII intact bilaterally and no sensory deficits noted Sensorium / Orientation: alert Motor Exam: strength 5/5 throughout Psych mental status grossly normal MDM MDM MDM Narrative Medical decision making narrative: Differential diagnosis includes ectopic , retained products of conception, menorrhagia, anemia, ovarian torsion, ovarian cyst, and dysmenorrhea. CBC will be obtained to assess for leukocytosis and anemia. Basic metabolic profile will be obtained to assess for electrolyte abnormality and renal function. Serum quantitative hCG will be obtained to assess for . Pelvic ultrasound will be obtained to assess for ovarian torsion and ovarian cyst. Urinalysis will be obtained to assess for urinary tract infection and hematuria. Lab Data Attestation: I reviewed the patient's lab results. Lab results narrative: CBC was reviewed and was within normal limits. PT with INR and PTT were reviewed and were within normal limits. Basic metabolic profile was reviewed and was within normal limits. Quantitative hCG was reviewed and was 94. This is diminished from previous result. Urinalysis was reviewed. Occult blood was 150. There were 10-25 red blood cells. There is no evidence of urinary tract infection. Labs: Laboratory Results - last 24 hr 12/15/22 12/15/22 10:20 10:33 WBC 4.9 RBC 4.17 L Hgb 12.5 Hct 40.2 MCV 96.4 MCH 30.0 MCHC 31.1 L RDW Std Deviation 46.5 H RDW Coeff of [place] 13.1 Plt Count 250 MPV 10.3 Immature Gran % (Auto) 0.400 Neut % (Auto) 55.2 Lymph % (Auto) 36.5 [place] % (Auto) 4.9 Eos % (Auto) 2.0 Baso % (Auto) 1.0 Absolute Neuts (auto) 2.7 Absolute Lymphs (auto) 1.80 Nucleated RBC % 0 PT 13.1 INR 1.0 APTT 23.7 L Sodium 141 Potassium 4.1 Chloride 109 H Carbon Dioxide 25.0 Anion Gap 7 BUN 16 Creatinine 0.94 Estim Creat Clear Calc 71.45 Est GFR (MDRD) Af Amer 87 Est GFR (MDRD) Non-Af 72 BUN/Creatinine Ratio 17.1 Glucose 92 Calcium 9.2 HCG, Quant 94 H Urine Color Yellow Urine Clarity Sl. Cloudy Urine pH 6.5 Ur Specific [place] 1.010 Urine Protein 15 H Urine Glucose (UA) Normal Urine Ketones Negative Urine Occult Blood 150 H Urine Nitrite Negative Urine Bilirubin Negative Urine Urobilinogen Normal Ur Leukocyte Esterase Negative Urine RBC 10-25 SEEN Urine WBC 0 SEEN Ur Squamous Epith Cells 0-5 SEEN Urine Bacteria 0 SEEN Urine Mucus 0 SEEN Radiography Diagnostic Testing: Clinical Impression(s) from Imaging Studies Transvaginal US 12/15/22 10:12 IMPRESSION: Normal female pelvis. Status post right nephrectomy. Electronically Signed: Gino Morgan MD at 12:19 EDT , ADDENDUM: 12/15/22 1331 IMPRESSION: undefined Pelvic ultrasound was reviewed. There is no evidence of ovarian cyst or ovarian torsion. There are no retained products in the uterus. There is no right ovary from previous oophorectomy. This was interpreted by the radiologist and was also independently reviewed by myself. Treatment and Re-Evaluation Narrative: Patient was given IV fluids and a dose of oxycodone initially. Patient had minimal relief with this. Patient was given a dose of Zofran for her nausea. Patient developed some hives after this. Patient was given a dose of Benadryl and the hives resolved. Patient was given a dose of Dilaudid. Patient is feeling better on reevaluation. Patient was advised of her findings. Case was discussed with Dr. Garcia. She will have the patient follow-up with Dr. Norma Whittaekr this week. Patient understood and was agreeable with the plan. All questions were answered. Discharge Plan Triage Chief Complaint: Vag Bleeding ED Provider: Juan Antonio Prasad Dx/Rx/DC Orders Clinical Impression: Abnormal vaginal bleeding, Pelvic pain Instructions: ED Dysfunctional Uterine Bleeding Prescriptions: New oxycodone-acetaminophen [Percocet] 5-325 mg tablet 1 tab PO Q8H PRN (Reason: pain) 3 Days Qty: 10 0RF No Action albuterol sulfate [Ventolin HFA] 1 INHALER inhaler 1 - 2 puff inhalation Q6H PRN PRN (Reason: Asthma) trazodone 150 mg PO/SL QHS ondansetron 4 mg tablet,disintegrating 4 mg PO Q8H PRN (Reason: nausea and vomiting) Qty: 10 0RF diphenhydramine-acetaminophen [Tylenol PM Extra Strength] 25-500 mg Tablet 1 tab PO QHS Rx Instructions: administer while awake prenat vit [id number] mg Capsule 1 cap PO DAILY sertraline [Zoloft] 100 mg tablet 100 mg PO DAILY Primary Care Provider: Winsome Cuevas CNP Referrals: Winsome Cuevas CNP [Other] Lolis Jacob MD [Med Staff - Active Staff] - 3-5 Days (Call the office tomorrow to schedule an appointment) Disposition Disposition: Home, Self Care Discharge Date/Time: 12/15/22 13:38
--- NOTE | 2022-12-15 10:12 | US_ITS ---
STUDY: ULTRASOUND OF THE FEMALE PELVIS - COMPLETE REASON FOR EXAM: Female, 37 years old. Pelvic pain . Bleeding. History of DTC and recent miscarriage. LMP: TECHNIQUE: Transvaginal TECHNICAL QUALITY: Adequate. COMPARISON: None. FINDINGS: The uterus is anteverted and is in a midline position. The uterus measures 7.9 cm x 4.7 cm x 4.2 cm. Normal uterine cervix. The endometrium measures 7 mm in thickness, and is hyperechoic. There is no demonstrated endometrial mass. There is no demonstrated myometrial mass. I.U.D. - The patient does not have an I.U.D. The patient is status post right nephrectomy. The left ovary is visualized. The left ovary measures 3.1 cm x 2.9 cm x 1.2 cm. There is no left ovarian cyst or ovarian mass. There is no visualized left adnexal mass or complex lesion. There is normal arterial and normal venous vascularity. There is no fluid in the cul-de-sac. US/Transvaginal Non- IMPRESSION: Normal female pelvis. Status post right nephrectomy. Electronically Signed: Gino Morgan MD at 12:19 EDT ,
[2022-12-15 10:29] LABS: Absolute Neutrophil Count 2.7 X10^3/uL (2.0-7.7); Basophil# 0.05 X10^3/uL; Hematocrit 40.2 % (37-47); Hemoglobin 12.5 g/dL (12.0-15.0); Lymphocyte % 36.5 % (19-41); Mean Corp Hgb Conc 31.1 g/dL (32-36); Mean Corpuscular Volume 96.4 fL (81-99); Mean Platelet Vol. 10.3 fl (6.2-12.0); Monocyte# 0.24 X10^3/uL; Monocyte% 4.9 % (0-10); NRBC Flagged by Analyzer 0 % (0-5); Neutrophil # 2.72 X10^3/uL (2.7-7.7); Neutrophil % 55.2 % (47-70); Platelet Count 250 K/mm3 (150-450); RBC Distribution Width CV 13.1 % (11.6-14.6); RBC Distribution Width SD 46.5 fl (35.1-43.9); Red Blood Count 4.17 M/mm3 (4.2-5.4); White Blood Count 4.9 K/mm3 (4.4-11.0)
[2022-12-15] MEDS: 0.9% Normal Saline (1000mL) 1,000 ML 1000 ML IV (10:29)
[2022-12-15] MEDS: oxyCODONE 5 MG Tablet PO (10:29)
[2022-12-15] MEDS: Ondansetron 4 MG/2 ML Vial IV (10:29)
[2022-12-15 10:37] LABS: Bacteria 0 SEEN /hpf (None Seen); Mucous, Urine 0 SEEN /hpf (<or=2+); White Blood Cells 0 SEEN /hpf (0-5)
[2022-12-15 10:42] LABS: Anion Gap 7 (5-15); BUN 16 mg/dL (7-18); BUN/Creat Ratio 17.1 RATIO (10-20); Calcium,Total 9.2 mg/dL (8.5-10.1); Chloride 109 mmol/L (98-107); Creatinine, Serum 0.94 mg/dL (0.55-1.02); EST Glomerular Filtration Rate 72 mL/min (>60); Est Glom Filt Rate - Afr Amer 87 mL/min (>60); Estimated Creatinine Clearance 71.45 ml/min; Glucose 92 mg/dL (74-106); Potassium 4.1 mmol/L (3.5-5.1); Sodium Level 141 mmol/L (136-145)
[2022-12-15 10:43] LABS: Color, Urine Yellow (Yellow); Glucose, Dipstick Normal (Normal); Ketone-Dipstick Negative (Negative); Leukocyte Esterase-Dipstick Negative /ul (Negative); Nitrite-Dipstick Negative (Negative); Occult Blood-Urine 150 /ul (Negative); Protein-Dipstick 15 mg/dl (Negative); Urine Bilirubin Dipstick Negative (Negative); Urine Clarity Sl. Cloudy (Clear); Urine Urobilinogen Normal (Normal); Urine pH 6.5 (5.0 - 8.0)
[2022-12-15 10:48] LABS: Partial Thromboplast Time 23.7 Seconds (24.1-36.2); Prothrombin Time (Protime)PT. 13.1 SECONDS (11.7-14.9)
[2022-12-15 10:51] VITALS: BP 111/66; BP 111/75; BP 125/70; PULSE 69; PULSE 72; PULSE 74
[2022-12-15 10:52] LABS: Red Blood Cells-Urine 10-25 SEEN /hpf (0-5); Squamous Epithelial Cells - UA 0-5 SEEN /hpf (5-10)
[2022-12-15 10:59] LABS: hCG Titer Quant., Serum 94 mIU/mL (1-3)
[2022-12-15] MEDS: HYDROmorphone 1 MG/ML Syringe 0.5 MG IV (11:50)
[2022-12-15 13:37] VITALS: BP 117/79; PULSE 71
== END 2022-12-15 13:38 | disposition home or self-care (01) ==
PROVIDERS: Emergency Provider Emergency Medicine; Visit Provider Emergency Medicine
DX: N93.9 Abnormal uterine and vaginal bleeding, unspecified (principal); Z90.721 Acquired absence of ovaries, unilateral; I10 Essential (primary) hypertension; F32.A Depression, unspecified; F41.9 Anxiety disorder, unspecified; R10.2 Pelvic and perineal pain; R11.0 Nausea
CPT/HCPCS: 76830; 80048; 81001; 84702; 85025; 85610; 85730; 96361; 96374; 96375; 99283; J7030; A4216; J2405

== ENCOUNTER 2023-05-01 13:47 | Emergency (ER) | payer BC, SELFPAY ==
[2023-05-01] VITALS (7 sets, daily range): BP systolic 102–122; BP diastolic 60–79; PULSE 73–119; RESP 16–25; TEMP 36.3–36.4; O2SAT 96–99
--- NOTE | 2023-05-01 14:34 | ED.RN ---
Pt sitting in wheelchair in hallway. RN triaging another pt when pt fell onto ground hitting face. Pt responsive to voice and able to open eyes slightly. Pt brought into second triage room and vitals obtained. Placed in room when room was available. Pt has no visible colmenares on face or body.
--- NOTE | 2023-05-01 14:39 | CT_ITS ---
EXAM: CT ABDOMEN AND PELVIS WITHOUT INTRAVENOUS CONTRAST CLINICAL INDICATION: left flank pain TECHNIQUE: Helically acquired images were obtained of the abdomen and pelvis without intravenous contrast. This CT exam was performed using one or more of the following dose reduction techniques: automated exposure control, adjustment of the mA and/or kV according to patient size, and/or use of iterative reconstruction technique. COMPARISON: CT Abdomen Pelvis dated 11/11/2022 FINDINGS: LOWER THORAX: Normal. Lung bases are clear. No cardiomegaly. No pericardial effusion. ABDOMEN: LIVER: Normal. Homogeneous. GALLBLADDER AND BILE DUCTS: Normal-appearing gallbladder. PANCREAS: Normal. No focal cystic mass. SPLEEN: Normal. Normal size without focal cystic or solid mass. ADRENALS: Normal. No nodules. KIDNEYS AND URETERS: 2 mm stone noted within the lower pole infundibulum of the left kidney. No evidence of urinary tract obstruction or ureteral stone. STOMACH AND BOWEL: Normal. No bowel distention. No focal inflammatory change. PELVIS: APPENDIX: No evidence of acute appendicitis. BLADDER: Normal. REPRODUCTIVE: Interval hysterectomy. A 3 cm residual left ovary. ABDOMEN and PELVIS: INTRAPERITONEAL SPACE: Normal. No ascites or other fluid collection. No free air. BONES/JOINTS: No suspicious lytic or blastic abnormality. SOFT TISSUES: Normal. No discrete abdominal or pelvic wall hernia. VASCULATURE: Normal. Abdominal aorta is non-dilated. LYMPH NODES: Normal. No enlarged lymph nodes. CT/Abdomen/Pelvis without Cont IMPRESSION: 1. 2 mm left renal stone without evidence of obstruction. 2. Interval hysterectomy. Electronically Signed: Godwin Villalobos MD at 15:30 EDT ,
[2023-05-01] MEDS: HYDROmorphone 1 MG/ML Syringe 0.5 MG IV (14:41)
[2023-05-01] MEDS: 0.9% Normal Saline (1000mL) 1,000 ML 1000 ML IV (14:41)
[2023-05-01] MEDS: Ondansetron 4 MG/2 ML Vial IV (14:41)
[2023-05-01 14:50] LABS: Absolute Lymphocyte Count 2.18 X10^3/uL (0.83-4.51); Absolute Neutrophil Count 3.9 X10^3/uL (2.0-7.7); Basophil# 0.04 X10^3/uL; Basophil% 0.6 % (0-1); Eosinophils% 1.5 % (0-5); Hematocrit 38.7 % (37-47); Hemoglobin 12.1 g/dL (12.0-15.0); Lymphocyte # 2.18 X10^3/ul (0.83-4.51); Lymphocyte % 33.3 % (19-41); Mean Corp Hgb Conc 31.3 g/dL (32-36); Mean Corpuscular Hgb 29.7 pg (27.0-32.0); Mean Corpuscular Volume 95.1 fL (81-99); Mean Platelet Vol. 10.1 fl (6.2-12.0); Monocyte# 0.29 X10^3/uL; Monocyte% 4.4 % (0-10); NRBC Flagged by Analyzer 0 % (0-5); Neutrophil # 3.91 X10^3/uL (2.7-7.7); Neutrophil % 59.9 % (47-70); Platelet Count 227 K/mm3 (150-450); RBC Distribution Width CV 13.7 % (11.6-14.6); RBC Distribution Width SD 47.9 fl (35.1-43.9); Red Blood Count 4.07 M/mm3 (4.2-5.4); White Blood Count 6.5 K/mm3 (4.4-11.0)
[2023-05-01 14:58] LABS: Lipase 25 U/L (13-75)
[2023-05-01 15:33] LABS: Lactic Acid 0.8 mmol/L (0.4-1.9)
--- NOTE | 2023-05-01 15:40 | US_ITS ---
STUDY: ULTRASOUND TRANSVAGINAL CLINICAL: Female, 37 years old. pelvic pain TECHNIQUE: Transvaginal COMPARISON: None. FINDINGS: Uterus and right ovary not visualized status post JOHN RSO as per clinical history Normal left ovary, measuring 2.7 x 2.4 x 2.3 cm. There is a cyst measuring 2.1 x 1.8 x 1.6 cm. There is no free fluid in the pelvis. US/Transvaginal Non- IMPRESSION: Small left ovarian cyst measuring approximately 2.1 x 1.8 x 1.6 cm status post JOHN RSO Electronically Signed: Oscar Herzog MD at 17:02 EDT ,
--- NOTE | 2023-05-01 15:41 | EDS_ITS ---
HPI <MARLENE Murillo - Last Filed: 05/01/23 17:18> History of Present Illness Chief Complaint: Abd Pain Narrative Narrative: Patient is a 37-year-old female with history of endometriosis, sees Dr. Chaidez, who recently had a hysterectomy with uterus, right ovary removed 5 weeks ago. Patient dates it was a painful recovery however she has been doing well for multiple weeks. 2 days ago, she developed patient was told to come to the emergency department. left lower quadrant pain. Patient states it has been getting much worse.Patient's last miscarriage was December 12, 2022. Patient has no live births. Lower suprapubic pain, PFSH <MARLENE Murillo - Last Filed: 05/01/23 17:18> PFSH Medical History Alcohol use Anemia Anxiety Back pain Bronchitis Depression Dietary restriction Difficult intravenous access Dysautonomia-like disorder Easy bruising History of echocardiogram History of edema History of IBS History of irregular heartbeat Hypertension Hypoglycemia Kidney disease Migraines Nephrolithiasis Non-smoker Restless legs Seizures Shortness of breath on exertion Wears glasses Home Medications albuterol sulfate 90 mcg/actuation aerosol inhaler (Ventolin HFA) 1 - 2 puff inhalation Q6H PRN PRN Asthma 03/22/13 [History Last Taken 05/24/14 08:49] trazodone 150 mg PO/SL QHS 12/31/20 [History Last Taken 06/05/21] ondansetron 4 mg disintegrating tablet 4 mg PO Q8H PRN nausea and vomiting #10 tabs 04/17/21 [Rx Last Taken 06/06/21] diphenhydramine 25 mg-acetaminophen 500 mg tablet (Tylenol PM Extra Strength) 1 tab PO QHS 10/22/21 [History Last Taken Unknown] 17-iron(35 mg-5 mg)-folic acid 1.2 mg-fish oil 400 mg capsule 1 cap PO DAILY 10/22/21 [History Last Taken Unknown] sertraline 100 mg tablet (Zoloft) 100 mg PO DAILY 11/25/22 [History Last Taken Unknown] oxycodone-acetaminophen 5 mg-325 mg tablet (Percocet) 1 tab PO Q8H PRN pain 3 days #10 tabs 12/15/22 [Rx Last Taken Unknown] Allergy/AdvReac Type Severity Reaction Status Date / Time baclofen Allergy Severe incontinenc Verified 05/01/23 13:50 e codeine Allergy Hives Verified 05/01/23 13:50 metronidazole [From Flagyl] Allergy Shortness Verified 05/01/23 13:50 of breath morphine Allergy Hives Verified 05/01/23 13:50 shellfish derived Allergy Angioedema Verified 05/01/23 13:50 topiramate [From Topamax] Allergy Other Verified 05/01/23 13:50 tramadol AdvReac Severe seizures Verified 05/01/23 13:50 adhesive AdvReac Rash Verified 05/01/23 13:50 NSAIDS (Non-Steroidal AdvReac PT UNSURE Verified 05/01/23 13:50 Anti-Inflamma OF REACTION Family History Father No cardiac disease Mother No cardiac disease Other Arthritis Asthma Blood clot in vein Bowel disease Breast cancer CVA (cerebral vascular accident) Cervical cancer Depression Diabetes High cholesterol Hypertension Seizures Suicidal ideation Surgical History Hx of laparoscopy Previous section S/P breast lumpectomy S/P removal of right ovary S/P tonsillectomy Social History household members: spouse Smoking Status: Never smoker alcohol intake: current alcohol intake frequency: holidays/special occasions only substance use type: does not use what type of physical activity do you participate in: none ROS <MARLENE Murillo - Last Filed: 05/01/23 17:18> ROS ED ROS Narrative Constitutional: Negative for fever, chills, weight loss, weakness Eyes: Negative for vision loss, vision change, double vision ENT: Negative for any sore throat, ear pain, congestion Cardiovascular: Negative for any chest pain, tightness, palpitations Respiratory: Negative for any cough, sputum production, hemoptysis, dyspnea, dyspnea on exertion, orthopnea Gastrointestinal: Negative for any vomiting, diarrhea, constipation, blood in stool, blood in vomit., Possible lower abdominal pain, nausea : Negative for any urinary frequency, dysuria, retention, blood in urine Muscle skeletal: Negative for any neck pain, back pain Neurological: Negative for any headache, syncope, dizziness Skin: Negative for any rashes, itching, abrasions, lacerations Psychiatric: Negative for any depression, anxiety, stress, suicidal ideation, homicidal ideation Hematologic: Negative for any excessive bruising, easy bleeding EXAM <Henry BarretoMARTINE-C - Last Filed: 05/01/23 17:18> Physical Exam Narrative Exam Narrative: Vital signs reviewed. HEET: Head normocephalic atraumatic, TMs clear bilaterally. Posterior pharynx is clear, moist mucous membranes. Nares clear bilaterally. Neck: Supple with no lymphadenopathy or tenderness. No signs of meningismus. Cardiac: Regular rate and rhythm no murmurs gallops or rubs, equal peripheral pulses bilaterally. Respiratory: Lungs clear to auscultation bilaterally. No chest tenderness. Abdomen: Soft, . No abdominal bruit or pulsatile masses. No hepatosplenomegaly. No peritoneal signs, active bowel sounds in all quadrants. Significant tenderness to the left lower quadrant, suprapubic area Extremities: No peripheral edema, no signs of gross trauma or deformity. Active full range of motion of all extremities. Neuro: Cranial nerves II through XII intact, no focal neurological deficits. Skin: Clean dry and intact with no rash, purpura, petechiae, vesicles or pustules. Backs/flank: No CVA tenderness, no midline spinal tenderness, no deformity. Psych: Normal mood and affect. No SI, HI or acute psychosis. Const Vital Signs: 05/01/23 13:48 05/01/23 14:48 05/01/23 15:00 Temperature 97.6 F L Temperature Source Temporal Pulse Rate 119 H 87 80 Respiratory Rate 25 H 16 16 Blood Pressure 122/79 H 113/60 114/64 Blood Pressure Mean 93 77 80 Pulse Ox 96 96 98 Oxygen Delivery Method Room Air Room Air Room Air 05/01/23 16:00 05/01/23 17:00 05/01/23 17:39 Temperature Temperature Source Pulse Rate 73 87 75 Respiratory Rate 16 16 16 Blood Pressure 114/68 113/69 107/70 Blood Pressure Mean 83 83 82 Pulse Ox 98 98 98 Oxygen Delivery Method Room Air Room Air Room Air 05/01/23 17:56 Temperature 97.3 F L Temperature Source Pulse Rate 78 Respiratory Rate 16 Blood Pressure 102/74 Blood Pressure Mean 83 Pulse Ox 99 Oxygen Delivery Method Positive well nourished and well developed General Appearance ED: well developed <Dr. Diego Serrano DO - Last Filed: 05/01/23 20:56> Physical Exam Const Vital Signs: 05/01/23 13:48 05/01/23 14:48 05/01/23 15:00 Temperature 97.6 F L Temperature Source Temporal Pulse Rate 119 H 87 80 Respiratory Rate 25 H 16 16 Blood Pressure 122/79 H 113/60 114/64 Blood Pressure Mean 93 77 80 Pulse Ox 96 96 98 Oxygen Delivery Method Room Air Room Air Room Air 05/01/23 16:00 05/01/23 17:00 05/01/23 17:39 Temperature Temperature Source Pulse Rate 73 87 75 Respiratory Rate 16 16 16 Blood Pressure 114/68 113/69 107/70 Blood Pressure Mean 83 83 82 Pulse Ox 98 98 98 Oxygen Delivery Method Room Air Room Air Room Air 05/01/23 17:56 Temperature 97.3 F L Temperature Source Pulse Rate 78 Respiratory Rate 16 Blood Pressure 102/74 Blood Pressure Mean 83 Pulse Ox 99 Oxygen Delivery Method MDM <MARLENE Murillo - Last Filed: 05/01/23 17:18> [facility] Lab Data Labs: Laboratory Results - last 24 hr 05/01/23 05/01/23 14:30 15:00 WBC 6.5 RBC 4.07 L Hgb 12.1 Hct 38.7 MCV 95.1 MCH 29.7 MCHC 31.3 L RDW Std Deviation 47.9 H RDW Coeff of [place] 13.7 Plt Count 227 MPV 10.1 Immature Gran % (Auto) 0.300 Neut % (Auto) 59.9 Lymph % (Auto) 33.3 Crane % (Auto) 4.4 Eos % (Auto) 1.5 Baso % (Auto) 0.6 Absolute Neuts (auto) 3.9 Absolute Lymphs (auto) 2.18 Nucleated RBC % 0 Sodium 141 Potassium 3.9 Chloride 110 H Carbon Dioxide 25.0 Anion Gap 6 BUN 9 Creatinine 0.88 Est GFR (MDRD) Af Amer 93 Est GFR (MDRD) Non-Af 77 BUN/Creatinine Ratio 10.2 Glucose 90 Lactic Acid 0.8 Calcium 9.5 Total Bilirubin 0.30 AST 14 L ALT 17 Alkaline Phosphatase 69 Total Protein 7.6 Albumin 4.0 Globulin 3.6 Albumin/Globulin Ratio 1.1 Lipase 25 Radiography Diagnostic Testing: Clinical Impression(s) from Imaging Studies Abdomen/Pelvis CT 05/01/23 14:39 IMPRESSION: 1. 2 mm left renal stone without evidence of obstruction. 2. Interval hysterectomy. Electronically Signed: Godwin Villalobos MD at 15:30 EDT Reading Location ID and State: [facility] / [place] Tel , Service support , Transvaginal US 05/01/23 15:40 IMPRESSION: Small left ovarian cyst measuring approximately 2.1 x 1.8 x 1.6 cm status post JOHN RSO Electronically Signed: Oscar Herzog MD at 17:02 EDT Reading Location ID and State: [facility] / [place] Tel , Service support , Treatment and Re-Evaluation :: Patient's patient does look uncomfortable on my initial exam, significant tenderness to the left lower abdomen, no peritoneal signs. Patient did receive basic laboratory values, CBC was unremarkable, patient's lactic acid was negative. Lipase was negative. Patient CT scan of the abdomen pelvis shows 2 mm left renal stone without evidence of obstruction, interval hysterectomy. Secondary to the patient continued having pain, CT scan being unremarkable, patient will receive a transvaginal ultrasound. Patient was given IV fluids, Zofran as well as 0.5 mg Dilaudid. Patient CBC was unremarkable, lactic acid was negative, lipase was negative. Patient CT scan of the abdomen pelvis showed a 2 mm left renal stone without evidence of obstruction, interval hysterectomy. Patient's transvaginal ultrasound showed small left ovarian cyst, 2.1 x 1.8 x 1.6, status post hysterectomy. At this time, patient be redosed with IV Dilaudid. At this time, there is no evidence of any free air, surgical emergency. Patient will follow- up closely outpatient. All questions answered, patient does have a follow-up appointment in 2 days. Patient stable for discharge. <Dr. Diego Serrano, DO - Last Filed: 05/01/23 20:56> [facility] Narrative Medical decision making narrative: Patient's patient does look uncomfortable on my initial exam, significant tenderness to the left lower abdomen, no peritoneal signs. Patient did receive basic laboratory values, CBC was unremarkable, patient's lactic acid was negative. Lipase was negative. Patient CT scan of the abdomen pelvis shows 2 mm left renal stone without evidence of obstruction, interval hysterectomy. Secondary to the patient continued having pain, CT scan being unremarkable, patient will receive a transvaginal ultrasound. Patient was given IV fluids, Zofran as well as 0.5 mg Dilaudid. Patient CBC was unremarkable, lactic acid was negative, lipase was negative. P atient CT scan of the abdomen pelvis showed a 2 mm left renal stone without evidence of obstruction, interval hysterectomy. Patient's transvaginal ultrasound showed small left ovarian cyst, 2.1 x 1.8 x 1.6, status post hysterectomy. At this time, patient be redosed with IV Dilaudid. At this time, there is no evidence of any free air, surgical emergency. Patient will follow- up closely outpatient. All questions answered, patient does have a follow-up appointment in 2 days. Patient stable for discharge. This patient was seen with a PA/PBX INSPECTOR Individually assessed they patient including history and physical. I have reviewed everything on the chart that is available and agree with the documentation provided by the PA/PBX INSPECTOR including discussion about the assessment, treatment plan, discussion, and return precautions. Patient presenting with abdominal pain. Physical exam is remarkable for very mild left lower abdominal pain. Differential as above. Patient medicated with Dilaudid, Zofran, IV fluids. Blood work obtained and is reassuring. CT abdomen pelvis without contrast obtained without kidney stone which was negative. Transvaginal ultrasound was then obtained to rule out ovarian torsion. Which was negative. There is an ovarian cyst. Patient counseled that her workup is ultimately negative. She requested a dose of pain medication before discharge. Return precautions discussed. Impression: 1. abdominal pain 2. Nausea/vomiting 3. Ovarian cyst Lab Data Attestation: I reviewed the patient's lab results. Labs: Laboratory Results - last 24 hr 05/01/23 05/01/23 14:30 15:00 WBC 6.5 RBC 4.07 L Hgb 12.1 Hct 38.7 MCV 95.1 MCH 29.7 MCHC 31.3 L RDW Std Deviation 47.9 H RDW Coeff of [place] 13.7 Plt Count 227 MPV 10.1 Immature Gran % (Auto) 0.300 Neut % (Auto) 59.9 Lymph % (Auto) 33.3 Crane % (Auto) 4.4 Eos % (Auto) 1.5 Baso % (Auto) 0.6 Absolute Neuts (auto) 3.9 Absolute Lymphs (auto) 2.18 Nucleated RBC % 0 Sodium 141 Potassium 3.9 Chloride 110 H Carbon Dioxide 25.0 Anion Gap 6 BUN 9 Creatinine 0.88 Est GFR (MDRD) Af Amer 93 Est GFR (MDRD) Non-Af 77 BUN/Creatinine Ratio 10.2 Glucose 90 Lactic Acid 0.8 Calcium 9.5 Total Bilirubin 0.30 AST 14 L ALT 17 Alkaline Phosphatase 69 Total Protein 7.6 Albumin 4.0 Globulin 3.6 Albumin/Globulin Ratio 1.1 Lipase 25 Radiography Diagnostic Testing: Clinical Impression(s) from Imaging Studies Abdomen/Pelvis CT 05/01/23 14:39 IMPRESSION: 1. 2 mm left renal stone without evidence of obstruction. 2. Interval hysterectomy. Electronically Signed: Godwin Villalobos MD at 15:30 EDT Reading Location ID and State: [facility] / [place] Tel , Service support , Transvaginal US 05/01/23 15:40 IMPRESSION: Small left ovarian cyst measuring approximately 2.1 x 1.8 x 1.6 cm status post JOHN RSO Electronically Signed: Oscar Herzog MD at 17:02 EDT Reading Location ID and State: [facility] / [place] Tel , Service support , Discharge Plan Triage Chief Complaint: Abd Pain ED Midlevel Provider: Henry Barreto ED Provider: Diego Serrano Dx/Rx/DC Orders Clinical Impression: Ovarian cyst, Pelvic pain Instructions: ED Ovarian Cyst, ED Pelvic Pain, Unknown Cause Prescriptions: No Action albuterol sulfate [Ventolin HFA] 1 INHALER inhaler 1 - 2 puff inhalation Q6H PRN PRN (Reason: Asthma) trazodone 150 mg PO/SL QHS ondansetron 4 mg tablet,disintegrating 4 mg PO Q8H PRN (Reason: nausea and vomiting) Qty: 10 0RF diphenhydramine-acetaminophen [Tylenol PM Extra Strength] 25-500 mg Tablet 1 tab PO QHS Rx Instructions: administer while awake prenat vit [id number] [id number] mg Capsule 1 cap PO DAILY sertraline [Zoloft] 100 mg tablet 100 mg PO DAILY oxycodone-acetaminophen [Percocet] 5-325 mg tablet 1 tab PO Q8H PRN (Reason: pain) 3 Days Qty: 10 0RF Primary Care Provider: Care Physician,No Primary Referrals: Care Physician,No Primary [Primary Care Provider] - Activity Restrictions/Additional Instructions: Follow-up with your RUG MEASURER. Return for any worsening symptoms. Disposition Disposition: Home, Self Care Discharge Date/Time: 05/01/23 17:57
[2023-05-01] MEDS: HYDROmorphone 0.5 MG/0.5 ML SYRINGE IV (17:39)
[2023-05-01 17:42] LABS: ALB/GLOB Ratio 1.1 RATIO (0.9-2.4); AST(SGOT) 14 U/L (15-37); Alanine Aminotransfer ALT/SGPT 17 U/L (13-56); Alkaline Phosphatase 69 U/L (45-117); Anion Gap 6 (5-15); BUN 9 mg/dL (7-18); BUN/Creat Ratio 10.2 RATIO (10-20); Calcium,Total 9.5 mg/dL (8.5-10.1); Chloride 110 mmol/L (98-107); Creatinine, Serum 0.88 mg/dL (0.55-1.02); EST Glomerular Filtration Rate 77 mL/min (>60); Est Glom Filt Rate - Afr Amer 93 mL/min (>60); Globulin 3.6 g/dL (2.2-4.2); Glucose 90 mg/dL (74-106); Potassium 3.9 mmol/L (3.5-5.1); Protein, Total 7.6 g/dL (6.4-8.2); Sodium Level 141 mmol/L (136-145)
== END 2023-05-01 17:57 | disposition home or self-care (01) ==
PROVIDERS: Nurse Practitioner; Emergency Provider Student in an Organized Health Care Education/Training Program; Visit Provider Student in an Organized Health Care Education/Training Program
DX: R10.32 Left lower quadrant pain (principal); R11.2 Nausea with vomiting, unspecified; N83.202 Unspecified ovarian cyst, left side; Z90.710 Acquired absence of both cervix and uterus; R10.814 Left lower quadrant abdominal tenderness; I10 Essential (primary) hypertension
CPT/HCPCS: 74176; 76830; 80053; 83605; 83690; 85025; 96361; 96374; 96375; 96376; 99284; J7030; A4216; J2405

== ENCOUNTER → 2023-07-01 | Outpatient (CLI) | payer BC, SELFPAY ==
[2023-07-01 13:13] LABS: Mucous, Urine 0 SEEN /hpf (<or=2+); Red Blood Cells-Urine 0 SEEN /hpf (0-5)
[2023-07-01 13:17] LABS: Color, Urine Yellow (Yellow); Glucose, Dipstick Normal (Normal); Ketone-Dipstick 5 mg/dl (Negative); Leukocyte Esterase-Dipstick 500 /ul (Negative); Nitrite-Dipstick Negative (Negative); Occult Blood-Urine 10 /ul (Negative); Protein-Dipstick 30 mg/dl (Negative); Urine Clarity Sl. Cloudy (Clear); Urine Urobilinogen 1 mg/dl (Normal)
[2023-07-01 13:23] LABS: Urine Bilirubin Dipstick 1 mg/dL (Negative)
[2023-07-01 13:42] LABS: White Blood Cells 10-25 SEEN /hpf (0-5)
[2023-07-01 13:43] LABS: Bacteria 2+ /hpf (None Seen); Squamous Epithelial Cells - UA 10-25 SEEN /hpf (5-10)
== END | disposition home or self-care (01) ==
LOC: LABSPEC 12:17
PROVIDERS: Referring Provider Physician Assistant; Visit Provider Physician Assistant
DX: R30.0 Dysuria (principal)
CPT/HCPCS: 81001; 87086; 87088; 87186

== ENCOUNTER 2023-10-05 07:24 | Emergency (ER) | payer BC, SELFPAY ==
[2023-10-05 07:25] VITALS: BP 123/76; PULSE 83; RESP 14; TEMP 36.1; O2SAT 100; BMI 26.4
--- NOTE | 2023-10-05 07:50 | CT_ITS ---
STUDY: CT ABDOMEN AND PELVIS WITH CONTRAST REASON FOR EXAM: Female, 37 years old. Abdominal pain (right). History of chronic kidney disease stage II. RADIATION DOSAGE (If Supplied By Facility): CTDIvol = ( 14.81 ) mGy, DLP = ( 625.93 ) mGycm TECHNIQUE: Transaxial images were obtained from the dome of the diaphragm to the symphysis pubis without oral contrast. IV 100mL Isovue-370 was administered. Sagittal and coronal images were reconstructed. Individualized dose optimization techniques were used for this CT. COMPARISON: Comparison is made with prior study dated May 01, 2023. FINDINGS: The visualized lung bases are unremarkable. The visualized portions of the heart are within normal limits. Normal liver. There is a mildly distended gallbladder. Normal spleen. Normal pancreas. Normal bilateral adrenal glands. Normal right kidney. Normal left kidney. Normal visualized stomach. Normal small intestine. Moderate amount of fecal material is seen in the colon. The appendix is visualized and appears normal. Normal abdominal aorta. Normal inferior vena cava. Normal retroperitoneum. The urinary bladder is distended. There is absence of the uterus consistent with a prior hysterectomy. Normal abdominal wall. Mild degree of disc space narrowing at the L5-S1 level. CT/Abdomen/Pelvis W IV Cont ONLY IMPRESSION: Mildly distended gallbladder lumen. Moderate amount of fecal material is seen throughout the colon. Status post hysterectomy. Distended urinary bladder. Electronically Signed: Gino Morgan MD at 10:05 EDT ,
--- NOTE | 2023-10-05 07:55 | EX.ED.DYSGE1 ---
HPI History of Present Illness Chief Complaint: Abd Pain Informant: patient Narrative Narrative: 37-year-old female presenting to the emergency room after being referred here from urgent care. Patient tells me that last Thursday she developed urinary frequency burning with urination and foul-smelling urine. She states that her credit rating checker checked a urine and felt that it was not infected and that she probably was passing kidney stones but she has a history of. She states that she developed pain right flank coming around into the abdomen. She notes nausea and vomiting. Symptoms have gotten progressively worse over the weekend. Patient states that her kidney stones are generally microscopic and cannot be seen typically. She went to urgent care was felt that she could have possibly appendicitis or ureterolithiasis and they asked her to be evaluated in the emergency department. She notes a temperature of 99. PFSH [facility] Medical History Difficult intravenous access Non-smoker Dysautonomia-like disorder Nephrolithiasis History of echocardiogram Wears glasses Alcohol use Anemia Easy bruising Restless legs Back pain Seizures Dietary restriction History of IBS Shortness of breath on exertion History of edema Bronchitis History of irregular heartbeat Hypoglycemia Anxiety Depression Migraines Kidney disease Hypertension Home Medications ?Medication ?Instructions ?Recorded ?Last Taken ?Type albuterol sulfate 90 mcg/actuation 1 - 2 puff inhalation Q6H PRN PRN 03/22/13 05/24/14 08:49 History aerosol inhaler (Ventolin HFA) Asthma trazodone 150 mg PO/SL QHS 12/31/20 06/05/21 History diphenhydramine 25 1 tab PO QHS 10/22/21 Unknown History mg-acetaminophen 500 mg tablet (Tylenol PM Extra Strength) sertraline 100 mg tablet (Zoloft) 100 mg PO DAILY 11/25/22 Unknown History spironolactone 25 mg tablet 25 mg PO QDAY 07/01/23 Unknown History tizanidine 2 mg tablet mg PO 07/01/23 Unknown History hydrochlorothiazide 12.5 mg capsule 12.5 mg PO QDAY 10/05/23 Unknown History potassium citrate 10 mEq (1,080 10 meq PO TID 10/05/23 Unknown History mg) tablet,extended release vortioxetine 10 mg tablet 10 mg PO QDAY 10/05/23 Unknown History (Trintellix) Allergy/AdvReac Type Severity Reaction Status Date / Time baclofen Allergy Severe incontinenc Verified 10/05/23 07:25 e codeine Allergy Hives Verified 10/05/23 07:25 metronidazole (From Flagyl) Allergy Shortness Verified 10/05/23 07:25 of breath morphine Allergy Hives Verified 10/05/23 07:25 shellfish derived Allergy Angioedema Verified 10/05/23 07:25 topiramate (From Topamax) Allergy Other Verified 10/05/23 07:25 tramadol AdvReac Severe seizures Verified 10/05/23 07:25 adhesive AdvReac Rash Verified 10/05/23 07:25 NSAIDS (Non-Steroidal AdvReac PT UNSURE Verified 10/05/23 07:25 Anti-Inflamma OF REACTION Family History Father No cardiac disease Mother No cardiac disease Other Arthritis Asthma Blood clot in vein Bowel disease Breast cancer CVA (cerebral vascular accident) Cervical cancer Depression Diabetes High cholesterol Hypertension Seizures Suicidal ideation Surgical History H/O: hysterectomy Hx of laparoscopy S/P removal of right ovary S/P tonsillectomy S/P breast lumpectomy Previous section Social History household members: spouse Smoking Status: Never smoker alcohol intake: current alcohol intake frequency: holidays/special occasions only substance use type: does not use what type of physical activity do you participate in: none ROS ROS ED Constitutional Constitutional ED: Denies chills, fever(s) or weight loss Eyes Eyes: Denies change in vision or diplopia ENT ENT ED: Denies ear pain, rhinorrhea or sore throat Cardiovascular Cardiovascular: Denies chest pain, orthopnea, palpitations or racing heartbeat Respiratory/Chest Respiratory/Chest: Denies cough, dyspnea or orthopnea Gastrointestinal Gastrointestinal: Reports abdominal pain, nausea and vomiting; Denies diarrhea Genitourinary Genitourinary ED: Reports dysuria and urinary frequency; Denies hematuria Musculoskeletal Musculoskeletal: Reports back pain; Denies arthralgias or myalgias Integumentary Denies abscess or rash Neurologic Neurologic: Denies headache(s) or weakness Psychiatric Psychiatric: Denies anxiety, depression, suicidal ideation or suicidal thoughts Endocrine Endocrinology: Denies polydipsia, polyphagia or polyuria Allergic/Immunologic Allergic/Immunologic ED: Denies mouth swelling, tongue swelling or urticaria EXAM Physical Exam Const Vital Signs: 10/05/23 07:25 10/05/23 09:25 Temperature 96.9 F L 98.0 F Temperature Source Temporal Temporal Pulse Rate 83 73 Respiratory Rate 14 14 Blood Pressure 123/76 H 116/84 H Blood Pressure Mean 91 94 Pulse Ox 100 98 Oxygen Delivery Method Room Air Room Air Positive well nourished and well developed General Appearance ED: well developed HEENT Reports normocephalic, head/scalp atraumatic and moist mucous membranes Eyes PERRL and EOMs intact bilaterally Neck no lymphadenopathy, supple and no JVD Resp normal respiratory effort and clear to auscultation bilaterally Cardio regular rate, regular rhythm and no murmurs GI Inspection: Negative for abdominal distention Auscultation: normoactive bowel sounds Palpation: soft and tender RUQ; Negative for guarding or rebound tenderness present Back/Spine no CVA tenderness and normal ROM Extremity normal to inspection General Extremety ED: Negative for edema General Extremity: Negative for edema Neuro oriented x3 and CN's II-XII intact bilaterally Sensorium / Orientation: alert Motor Exam: strength 5/5 throughout Psych mental status grossly normal Mood & Affect: Negative for depressed or tearful Skin no rashes or lesions noted and no wounds MDM MDM MDM Narrative Medical decision making narrative: Differential diagnosis includes but not limited to appendicitis colitis ureterolithiasis UTI pyelonephritis renal colic biliary disease liver dysfunction perforated viscus White count 6.2 with a hemoglobin 14.1 and platelet count of 243 BMP shows a BUN of 14 creatinine 1.04 liver enzymes are within normal limits lipase is normal test is negative urinalysis with no overt infection. CT of the abdomen pelvis with IV contrast was obtained. Please see radiologist full read for details. There is a mildly distended gallbladder but not no obvious pericholecystic fluid or stones. No obvious ureterolithiasis or obvious appendicitis/colitis. Moderate amount of stool noted in the colon. Gallbladder ultrasound was obtained which does not demonstrate any wall thickening gallstones sludge or pericholecystic fluid. Patient initially was treated with Dilaudid Zofran and IV fluids. Patient continued to have pain and was given Bentyl. Patient continues to report severe pain. I do not have a clear etiology for the patient's pain. She does have some sludge but given a normal white count no pericholecystic fluid and how long she has had symptoms I doubt that this is acute cholecystitis. She is concerned about the distended bladder but she did receive IV fluids prior to the CT scan so I think that this is a normal finding. She states that she has blood in her urine. The urine dip positive for nitrates and for blood but the microscopic did not show any overt infection or any obvious hematuria. She states that her GFR has dropped which may be a function of hydration or laboratory variation or normal variation. At this point and not seeing clear emergent reason for hospitalization. Would recommend that the patient follow-up with primary care/her doctors. History & Record Review Discussion w/independent historian: Patient Additional record(s) reviewed:: Prior labs Lab Data Attestation: I reviewed the patient's lab results. Labs: Laboratory Results - last 24 hr 10/05/23 10/05/23 08:25 08:35 WBC 6.2 RBC 4.70 Hgb 14.1 Hct 45.2 MCV 96.2 MCH 30.0 MCHC 31.2 L RDW Std Deviation 45.8 H RDW Coeff of [place] 12.8 Plt Count 243 MPV 10.0 Immature Gran % (Auto) 0.300 Neut % (Auto) 53.2 Lymph % (Auto) 37.0 [place] % (Auto) 6.6 Eos % (Auto) 2.3 Baso % (Auto) 0.6 Absolute Neuts (auto) 3.3 Absolute Lymphs (auto) 2.30 Nucleated RBC % 0 Sodium 135 L Potassium 4.1 Chloride 104 Carbon Dioxide 25.0 Anion Gap 6 BUN 14 Creatinine 1.04 H Estim Creat Clear Calc 71.66 Est GFR (MDRD) Af Amer 77 Est GFR (MDRD) Non-Af 63 BUN/Creatinine Ratio 13.5 Glucose 92 Calcium 9.4 Total Bilirubin 0.30 Direct Bilirubin 0.07 AST 22 ALT 20 Alkaline Phosphatase 78 Total Protein 8.8 H Albumin 4.2 Globulin 4.6 H Lipase 31 Serum , Qual NEGATIVE Urine Color Yellow Urine Clarity Clear Urine pH 6.5 Ur Specific [place] 1.010 Urine Protein Negative Urine Glucose (UA) Normal Urine Ketones Negative Urine Occult Blood 250 H Urine Nitrite Positive H Urine Bilirubin Negative Urine Urobilinogen Normal Ur Leukocyte Esterase 25 H Urine RBC 0-5 SEEN Urine WBC 0-5 SEEN Ur Squamous Epith Cells 0-5 SEEN Urine Bacteria 0 SEEN Urine Mucus 0 SEEN Radiography Diagnostic Testing: Clinical Impression(s) from Imaging Studies Abdomen/Pelvis CT 10/05/23 07:50 IMPRESSION: Mildly distended gallbladder lumen. Moderate amount of fecal material is seen throughout the colon. Status post hysterectomy. Distended urinary bladder. Electronically Signed: Gino Morgan MD at 10:05 EDT , Gallbladder Ultrasound 10/05/23 10:09 IMPRESSION: No acute sonographic abnormality is demonstrated in the right upper quadrant. Minimal sludge within the gallbladder. Electronically Signed: Sharon Gao MD at 11:41 EDT , Discharge Plan Triage Chief Complaint: Abd Pain ED Provider: Dandy Santos Dx/Rx/DC Orders Clinical Impression: Abdominal pain Instructions: Abdominal Pain Prescriptions: No Action spironolactone 25 mg tablet 25 mg PO QDAY tizanidine 2 mg tablet PO hydrochlorothiazide 12.5 mg capsule 12.5 mg PO QDAY potassium citrate 10 mEq (1,080 mg) tablet extended release 10 meq PO TID Trintellix 10 mg tablet 10 mg PO QDAY albuterol sulfate [Ventolin HFA] 1 INHALER inhaler 1 - 2 puff inhalation Q6H PRN PRN (Reason: Asthma) trazodone 150 mg PO/SL QHS diphenhydramine-acetaminophen [Tylenol PM Extra Strength] 25-500 mg Tablet 1 tab PO QHS Rx Instructions: administer while awake sertraline [Zoloft] 100 mg tablet 100 mg PO DAILY Primary Care Provider: Winsome Cuevas Referrals: Care Physician,No Primary [Non-Staff] - Activity Restrictions/Additional Instructions: Please follow-up with your doctors. Please monitor for any changing or worsening symptoms. Print Language: Sami Disposition Disposition: Home, Self Care
[2023-10-05 08:31] LABS: Bacteria 0 SEEN /hpf (None Seen); Mucous, Urine 0 SEEN /hpf (<or=2+)
[2023-10-05 08:32] LABS: Color, Urine Yellow (Yellow); Glucose, Dipstick Normal (Normal); Ketone-Dipstick Negative (Negative); Leukocyte Esterase-Dipstick 25 /ul (Negative); Nitrite-Dipstick Positive (Negative); Occult Blood-Urine 250 /ul (Negative); Protein-Dipstick Negative (Negative); Urine Bilirubin Dipstick Negative (Negative); Urine Clarity Clear (Clear); Urine Urobilinogen Normal (Normal); Urine pH 6.5 (5.0 - 8.0)
[2023-10-05 08:39] LABS: Red Blood Cells-Urine 0-5 SEEN /hpf (0-5); Squamous Epithelial Cells - UA 0-5 SEEN /hpf (5-10); White Blood Cells 0-5 SEEN /hpf (0-5)
[2023-10-05 08:40] LABS: Absolute Neutrophil Count 3.3 X10^3/uL (2.0-7.7); Basophil# 0.04 X10^3/uL; Basophil% 0.6 % (0-1); Eosinophil# 0.14 X10^3/uL; Eosinophils% 2.3 % (0-5); Hematocrit 45.2 % (37-47); Hemoglobin 14.1 g/dL (12.0-15.0); Mean Corp Hgb Conc 31.2 g/dL (32-36); Mean Corpuscular Volume 96.2 fL (81-99); Monocyte# 0.41 X10^3/uL; Monocyte% 6.6 % (0-10); NRBC Flagged by Analyzer 0 % (0-5); Neutrophil % 53.2 % (47-70); Platelet Count 243 K/mm3 (150-450); RBC Distribution Width CV 12.8 % (11.6-14.6); RBC Distribution Width SD 45.8 fl (35.1-43.9); White Blood Count 6.2 K/mm3 (4.4-11.0)
[2023-10-05] MEDS: 0.9% Normal Saline (1000mL) 1,000 ML 999 ML IV (08:44)
[2023-10-05] MEDS: Ondansetron 4 MG/2 ML Vial IV (08:44)
[2023-10-05] MEDS: HYDROmorphone 1 MG/ML Syringe IV (08:44)
[2023-10-05 08:51] LABS: Internal QC Validated? YES +Cl - CLEAR BKGD; Pregnancy, Serum, hCG Quali. NEGATIVE Negative
[2023-10-05 09:15] LABS: AST(SGOT) 22 U/L (15-37); Alanine Aminotransfer ALT/SGPT 20 U/L (13-56); Albumin, Serum 4.2 g/dL (3.2-5.0); Alkaline Phosphatase 78 U/L (45-117); Anion Gap 6 (5-15); BUN 14 mg/dL (7-18); BUN/Creat Ratio 13.5 RATIO (10-20); Bilirubin, Direct 0.07 mg/dL (0.00-0.30); Calcium,Total 9.4 mg/dL (8.5-10.1); Chloride 104 mmol/L (98-107); Creatinine, Serum 1.04 mg/dL (0.55-1.02); EST Glomerular Filtration Rate 63 mL/min (>60); Est Glom Filt Rate - Afr Amer 77 mL/min (>60); Estimated Creatinine Clearance 71.66 ml/min; Globulin 4.6 g/dL (2.2-4.2); Glucose 92 mg/dL (74-106); Lipase 31 U/L (13-75); Potassium 4.1 mmol/L (3.5-5.1); Protein, Total 8.8 g/dL (6.4-8.2); Sodium Level 135 mmol/L (136-145)
[2023-10-05 09:25] VITALS: BP 116/84; PULSE 73; RESP 14; TEMP 36.7; O2SAT 98
--- NOTE | 2023-10-05 10:09 | US_ITS ---
INDICATION: pain EXAMINATION: Ultrasound US Abdomen Limited (quadrant) TECHNIQUE: Vazquez scale and color doppler imaging was performed of the right upper quadrant. COMPARISON: CT dated October 05, 2023 FINDINGS: LIVER: There is normal echotexture. No focal hepatic lesion. There is no free fluid. GALLBLADDER AND BILIARY TREE: No shadowing gallstone, pericholecystic fluid or gallbladder wall thickening is demonstrated. There is minimal sludge within the gallbladder. The proximal common bile duct measures 2.8 mm, which is within normal limits for the patient''s age. Songraphic [place]''s sign: Negative. PANCREAS: No focal abnormality is demonstrated in the pancreas. No pancreatic ductal dilatation. RIGHT KIDNEY: The right kidney measures 10.5 cm in length and is within normal limits. US/Gallbladder IMPRESSION: No acute sonographic abnormality is demonstrated in the right upper quadrant. Minimal sludge within the gallbladder. Electronically Signed: Sharon Gao MD at 11:41 EDT ,
[2023-10-05] MEDS: Dicyclomine 20 MG/2 ML Vial IM (10:46)
[2023-10-05 14:00] LABS: Glucose, Dipstick Normal (Normal); Ketone-Dipstick Negative (Negative); Leukocyte Esterase-Dipstick 100 /ul (Negative); Nitrite-Dipstick Positive (Negative); Occult Blood-Urine 10 /ul (Negative); Protein-Dipstick 30 mg/dl (Negative); Urine Clarity Sl. Cloudy (Clear); Urine Urobilinogen 8 mg/dl (Normal)
[2023-10-05 14:05] LABS: Color, Urine SEE COMMENT BELOW (Yellow); Urine Bilirubin Dipstick 6 mg/dL (Negative)
[2023-10-05 14:14] LABS: White Blood Cells 10-25 SEEN /hpf (0-5)
[2023-10-05 14:15] LABS: Red Blood Cells-Urine 0-5 SEEN /hpf (0-5); Squamous Epithelial Cells - UA 0-5 SEEN /hpf (5-10)
[2023-10-05 14:16] LABS: Bacteria 1+ /hpf (None Seen); Mucous, Urine 3+ /hpf (<or=2+); Renal Epithelial Cells 0-5 SEEN /hpf (0-5); Transitional Epithelial - Ur 0-5 SEEN /hpf (0-5)
== END 2023-10-05 13:07 | disposition home or self-care (01) ==
PROVIDERS: Physician Assistant; Emergency Provider Emergency Medicine; PCP Nurse Practitioner Family; Visit Provider Emergency Medicine
DX: R10.9 Unspecified abdominal pain (principal); R11.2 Nausea with vomiting, unspecified; I10 Essential (primary) hypertension; Z90.710 Acquired absence of both cervix and uterus; M54.9 Dorsalgia, unspecified; R30.0 Dysuria
CPT/HCPCS: 74177; 76705; 80048; 80076; 81001; 83690; 84703; 85025; 87086; 87088; 87186; 96361; 96372; 96374; 96375; 99282; J7030; Q9967; A4216; J2405

== ENCOUNTER 2023-12-29 14:21 | Emergency (ER) | payer BC, SELFPAY ==
[2023-12-29 14:22] VITALS: BP 115/78; PULSE 74; RESP 16; TEMP 37.2; O2SAT 96; BMI 28.3
--- NOTE | 2023-12-29 14:41 | CT_ITS ---
EXAM: CT HEAD WITHOUT INTRAVENOUS CONTRAST CLINICAL INDICATION: Head injury. Seizure. TECHNIQUE: Multiple axial images were obtained of the head without intravenous contrast. This CT exam was performed using one or more of the following dose reduction techniques: automated exposure control, adjustment of the mA and/or kV according to patient size, and/or use of iterative reconstruction technique. RADIATION DOSE: CTDIvol = 44.99 mGy, DLP = 745.49 mGy-cm COMPARISON: CT head without contrast 11/17/2011. FINDINGS: BRAIN AND EXTRA-AXIAL SPACES: Unremarkable. No intra- or extra-axial hemorrhage. No evidence of acute infarct. No intracranial mass or mass effect. There is preservation of the khan/white matter interface. Posterior fossa structures are unremarkable. Ventricles are appropriate for age. No hydrocephalus. Basal cisterns are patent. BONES/JOINTS: Unremarkable. No discrete lytic or blastic abnormalities. SINUSES: Unremarkable as visualized. Clear. MASTOID AIR CELLS: Unremarkable. Clear. ORBITS: Visualized globes, extraocular muscles, optic nerves and retrobulbar fat appear unremarkable. CT/Brain/Head without Contrast IMPRESSION: Negative head/brain CT without intravenous contrast and unchanged. Electronically Signed: Rob Leal MD at 15:29 EST ,
[2023-12-29] MEDS: Ondansetron 4 MG/2 ML Vial IV (14:50)
[2023-12-29] MEDS: fentaNYL 100 MCG/2 ML Ampul 50 MCG IV (14:50)
[2023-12-29 15:05] LABS: Absolute Lymphocyte Count 2.16 X10^3/uL (0.83-4.51); Absolute Neutrophil Count 3.9 X10^3/uL (2.0-7.7); Basophil# 0.04 X10^3/uL; Basophil% 0.6 % (0-1); Eosinophils% 1.5 % (0-5); Hematocrit 40.7 % (37-47); Hemoglobin 12.8 g/dL (12.0-15.0); Lymphocyte # 2.16 X10^3/ul (0.83-4.51); Lymphocyte % 32.4 % (19-41); Mean Corp Hgb Conc 31.4 g/dL (32-36); Mean Corpuscular Volume 95.5 fL (81-99); Mean Platelet Vol. 9.5 fl (6.2-12.0); Monocyte# 0.41 X10^3/uL; Monocyte% 6.2 % (0-10); NRBC Flagged by Analyzer 0 % (0-5); Neutrophil # 3.94 X10^3/uL (2.7-7.7); Neutrophil % 59.1 % (47-70); Platelet Count 224 K/mm3 (150-450); RBC Distribution Width CV 12.6 % (11.6-14.6); RBC Distribution Width SD 44.3 fl (35.1-43.9); Red Blood Count 4.26 M/mm3 (4.2-5.4); White Blood Count 6.7 K/mm3 (4.4-11.0)
[2023-12-29 15:16] LABS: Anion Gap 5 (5-15); BUN 15 mg/dL (7-18); BUN/Creat Ratio 15.3 RATIO (10-20); Calcium,Total 9.3 mg/dL (8.5-10.1); Chloride 110 mmol/L (98-107); Creatinine, Serum 0.98 mg/dL (0.55-1.02); EST Glomerular Filtration Rate 68 mL/min (>60); Est Glom Filt Rate - Afr Amer 82 mL/min (>60); Glucose 94 mg/dL (74-106); Potassium 4.5 mmol/L (3.5-5.1); Sodium Level 140 mmol/L (136-145)
--- NOTE | 2023-12-29 15:18 | EDS_ITS ---
HPI History of Present Illness Chief Complaint: Seizure Informant: patient Narrative Narrative: Patient brought in by EMS from urgent care for witnessed seizure x 2 tonic- clonic activity. Patient deals with vertigo, she had a flare yesterday. She went to urgent care for treatment. She had the José Luis maneuver performed, she got nauseated she is given IM Phenergan. Reported staff return to check on the patient she is on the ground with tonic-clonic activity. She denies tongue biting denies incontinence of urine or stool. She reports since coming around increasing headache and right hip pain. She does admit to history of conversion disorder with nonepileptic seizures. She is followed by neurology at [facility]. She cannot recall the name at this time. She had episode over the summer at the concert with multiple [id number] seizures she is put on Keppra for 1 week. She states when she follow-up with her neurologist this was stopped. Denies cough. Hysterectomy in the past. Denies urinary symptoms. Multiple allergies to pain medicine has tolerated Dilaudid and fentanyl in the past. Prior similar symptoms: Yes PFSH [facility] Medical History Seizure BPPV (benign paroxysmal positional vertigo) Difficult intravenous access Non-smoker Dysautonomia-like disorder Nephrolithiasis History of echocardiogram Wears glasses Alcohol use Anemia Easy bruising Restless legs Back pain Seizures Dietary restriction History of IBS Shortness of breath on exertion History of edema Bronchitis History of irregular heartbeat Hypoglycemia Anxiety Depression Migraines Kidney disease Hypertension Home Medications ?Medication ?Instructions ?Recorded ?Last Taken ?Type albuterol sulfate 90 mcg/actuation 1 - 2 puff inhalation Q6H PRN PRN 03/22/13 05/24/14 08:49 History aerosol inhaler (Ventolin HFA) Asthma trazodone 150 mg PO/SL QHS 12/31/20 06/05/21 History diphenhydramine 25 1 tab PO QHS 10/22/21 Unknown History mg-acetaminophen 500 mg tablet (Tylenol PM Extra Strength) sertraline 100 mg tablet (Zoloft) 100 mg PO DAILY 11/25/22 Unknown History spironolactone 25 mg tablet 25 mg PO QDAY 07/01/23 Unknown History tizanidine 2 mg tablet mg PO 07/01/23 Unknown History hydrochlorothiazide 12.5 mg capsule 12.5 mg PO QDAY 10/05/23 Unknown History potassium citrate 10 mEq (1,080 10 meq PO TID 10/05/23 Unknown History mg) tablet,extended release vortioxetine 10 mg tablet 10 mg PO QDAY 10/05/23 Unknown History (Trintellix) meclizine 25 mg tablet 25 mg PO 4X/DAY PRN PRN Dizziness 12/29/23 Unknown Rx #20 tabs ondansetron 4 mg disintegrating 4 mg PO Q8H PRN PRN Nausea #10 tabs 12/29/23 Unknown Rx tablet Allergy/AdvReac Type Severity Reaction Status Date / Time baclofen Allergy Severe incontinenc Verified 12/29/23 14:22 e codeine Allergy Hives Verified 12/29/23 14:22 metronidazole (From Flagyl) Allergy Shortness Verified 12/29/23 14:22 of breath morphine Allergy Hives Verified 12/29/23 14:22 shellfish derived Allergy Angioedema Verified 12/29/23 14:22 topiramate (From Topamax) Allergy Other Verified 12/29/23 14:22 tramadol AdvReac Severe seizures Verified 12/29/23 14:22 adhesive AdvReac Rash Verified 12/29/23 14:22 NSAIDS (Non-Steroidal AdvReac PT UNSURE Verified 12/29/23 14:22 Anti-Inflamma OF REACTION Family History Father No cardiac disease Mother No cardiac disease Other Arthritis Asthma Blood clot in vein Bowel disease Breast cancer CVA (cerebral vascular accident) Cervical cancer Depression Diabetes High cholesterol Hypertension Seizures Suicidal ideation Surgical History H/O: hysterectomy Hx of laparoscopy S/P removal of right ovary S/P tonsillectomy S/P breast lumpectomy Previous section Social History household members: spouse Smoking Status: Never smoker alcohol intake: current alcohol intake frequency: holidays/special occasions only substance use type: does not use what type of physical activity do you participate in: none ROS ROS ED Constitutional Constitutional ED: Denies chills, fever(s) or sweats Eyes Eyes: Denies change in vision ENT ENT ED: Denies dysphagia or sore throat Cardiovascular Cardiovascular: Denies chest pain, leg edema, palpitations or racing heartbeat Respiratory/Chest Respiratory/Chest: Denies cough, dyspnea or dyspnea on exertion Gastrointestinal Gastrointestinal: Denies abdominal pain, diarrhea, nausea or vomiting Genitourinary Genitourinary ED: Denies dysuria, hematuria or urinary frequency Musculoskeletal Musculoskeletal: Reports extremity pain; Denies back pain or neck pain Integumentary Denies rash or wounds Neurologic Neurologic: Reports headache(s) and other Details: Seizure ; Denies paresthesias or weakness EXAM Physical Exam Const Vital Signs: 12/29/23 14:22 12/29/23 15:22 Temperature 98.9 F Temperature Source Temporal Pulse Rate 74 71 Respiratory Rate 16 18 Blood Pressure 115/78 105/69 Blood Pressure Mean 90 81 Pulse Ox 96 97 Oxygen Delivery Method Room Air Room Air Positive well nourished and well developed General Appearance ED: well developed and NAD HEENT Reports moist mucous membranes HEENT Narrative: No tongue abrasion or laceration normocephalic and atraumatic Eyes EOMs intact bilaterally and conjunctivae normal Eyes Narrative: No nystagmus General Eye ED: Yes normal appearance of both eyes Neck no lymphadenopathy and supple General: Negative for tenderness Chest Wall Chest: Negative for tenderness Resp normal respiratory effort and normal air movement Effort and Inspection: symmetric chest movement; Negative for respiratory distress Cardio regular rate, regular rhythm and no murmurs Peripheral Pulses: pulses 2+ throughout GI normal to inspection, nondistended, normoactive bowel sounds and non-tender Palpation: Negative for guarding or rebound tenderness present Back/Spine no CVA tenderness and no thoracic nor lumbar tenderness Extremity normal to inspection Extremity Narrative: Tender palpation right greater trochanteric. There is no ecchymosis. No shortening or rotation. Soft compartments of the thigh and leg. Neuro vas intact distally. General Extremety ED: Yes tenderness; Negative for edema General Extremity: Negative for edema Neuro oriented x3, CN's II-XII intact bilaterally and no sensory deficits noted Sensorium / Orientation: awake and alert Skin no rashes or lesions noted and no wounds MDM MDM MDM Narrative Medical decision making narrative: Interventions / MDM: Differential diagnosis: Seizure, contusion, history of nonepileptic seizures Diagnosis considered but do not suspect: Intracranial hemorrhage head CT negative. Fracture x-ray negative. My EKG interpretation: N/A Imaging independently reviewed and interpreted by myself: CT brain: No acute process. Right hip x-ray 3 views with pelvis: No fracture dislocation also read by radiology. External documents reviewed: N/A Test considered but not ordered:N/A ED course: Patient currently A and O x 3. Worsening headache since fall right hip pain. History of nonepileptic seizures. Will check CT head, x-ray hip. Will check labs, IV was established fentanyl and Zofran for symptom control. 1545: Image studies negative. Labs are stable reevaluation clinically stable. Her vertigo symptoms have subsided. She states plan prescription for meclizine to her pharmacy for which she is tolerated well in the past. Also write Zofran for nausea. She has a history of nonepileptic seizures, likely stress-induced from her vertigo. I do not feel hospitalization or seizure meds required as this has been stopped previously by her neurologist. She will call her neurologist tomorrow for outpatient follow-up. Return precautions. All questions were answered. Re-evaluation: stable Disposition discussed with patient/family/significant other: Patient Case discussed with consulting clinician: N/A This note was generated with [employer] dictation software. It may contain incorrect words, spelling, and punctuation that were not noted in checking the note before signing. Lab Data Attestation: I reviewed the patient's lab results. Labs: Laboratory Results - last 24 hr 12/29/23 14:58 WBC 6.7 RBC 4.26 Hgb 12.8 Hct 40.7 MCV 95.5 MCH 30.0 MCHC 31.4 L RDW Std Deviation 44.3 H RDW Coeff of [place] 12.6 Plt Count 224 MPV 9.5 Immature Gran % (Auto) 0.200 Neut % (Auto) 59.1 Lymph % (Auto) 32.4 [place] % (Auto) 6.2 Eos % (Auto) 1.5 Baso % (Auto) 0.6 Absolute Neuts (auto) 3.9 Absolute Lymphs (auto) 2.16 Nucleated RBC % 0 Sodium 140 Potassium 4.5 Chloride 110 H Carbon Dioxide 25.0 Anion Gap 5 BUN 15 Creatinine 0.98 Estim Creat Clear Calc 77.80 Est GFR (MDRD) Af Amer 82 Est GFR (MDRD) Non-Af 68 BUN/Creatinine Ratio 15.3 Glucose 94 Calcium 9.3 Radiography Diagnostic Testing: Clinical Impression(s) from Imaging Studies Brain CT 12/29/23 14:41 IMPRESSION: Negative head/brain CT without intravenous contrast and unchanged. Electronically Signed: Rob Leal MD at 15:29 EST Reading Location ID and State: [facility] / [place] , Service support , Hip/Pelvis X-Ray 12/29/23 15:20 IMPRESSION: No acute fracture or dislocation of the pelvis and right hip. Electronically Signed: Rob Leal MD at 15:30 EST , Discharge Plan Triage Chief Complaint: Seizure ED Provider: Galen Mendoza Dx/Rx/DC Orders Clinical Impression: History of psychogenic nonepileptic seizure, Vertigo, Head injury, Contusion of hip, right Instructions: ED Head Injury (Adult), ED Hip Contusion, ED Vertigo, Unspecified, ED Conversion Reaction Prescriptions: New meclizine 25 mg tablet 25 mg PO 4X/DAY PRN PRN (Reason: Dizziness) Qty: 20 0RF ondansetron 4 mg tablet,disintegrating 4 mg PO Q8H PRN PRN (Reason: Nausea) Qty: 10 0RF No Action spironolactone 25 mg tablet 25 mg PO QDAY tizanidine 2 mg tablet PO hydrochlorothiazide 12.5 mg capsule 12.5 mg PO QDAY potassium citrate 10 mEq (1,080 mg) tablet extended release 10 meq PO TID Trintellix 10 mg tablet 10 mg PO QDAY albuterol sulfate [Ventolin HFA] 1 INHALER inhaler 1 - 2 puff inhalation Q6H PRN PRN (Reason: Asthma) trazodone 150 mg PO/SL QHS diphenhydramine-acetaminophen [Tylenol PM Extra Strength] 25-500 mg Tablet 1 tab PO QHS Rx Instructions: administer while awake sertraline [Zoloft] 100 mg tablet 100 mg PO DAILY Stand Alone Forms: ED Work / School Excuse Primary Care Provider: Winsome Cuevas Referrals: Winsome Cuevas, MARTINE-C [Primary Care Provider] - 5-7 Days Activity Restrictions/Additional Instructions: CT brain negative. Right hip x-rays negative. Labs are stable. History of nonepileptic seizures with 2 witnessed episode at the [facility]. None in the ED. Call your neurologist to discuss follow-up. Take medications as prescribed for your vertigo. If you have recurrent symptoms, not controlled medications, return to ED for reevaluation. Print Language: Wallisian Disposition Disposition: Home, Self Care Discharge Date/Time: 12/29/23 16:06
--- NOTE | 2023-12-29 15:20 | RAD_ITS ---
EXAM: XR RIGHT HIP WITH PELVIS WHEN PERFORMED, 2 OR 3 VIEWS CLINICAL INDICATION: injury TECHNIQUE: Two or three views of the right hip with pelvis when performed. COMPARISON: No relevant prior studies available. FINDINGS: BONES/JOINTS: Unremarkable. No displaced fracture. No destructive or sclerotic lesions. Note that overlapping bowel shadows may however obscure fine detail. Sacroiliac joint is unremarkable. No widening of the pubic symphysis. The articular structures are unremarkable. SOFT TISSUES: Unremarkable. No soft tissue swelling or gas. RAD/HIP, UNI W/ Pelvis 2-3 Views IMPRESSION: No acute fracture or dislocation of the pelvis and right hip. Electronically Signed: Rob Leal MD at 15:30 EST ,
[2023-12-29 15:22] VITALS: BP 105/69; PULSE 71; RESP 18; O2SAT 97
[2023-12-29 16:00] VITALS: BP 110/74; PULSE 78; RESP 16; TEMP 36.8; O2SAT 99
== END 2023-12-29 16:06 | disposition home or self-care (01) ==
PROVIDERS: Emergency Provider Emergency Medicine; PCP Nurse Practitioner Family; Visit Provider Emergency Medicine
DX: R56.9 Unspecified convulsions (principal); R42 Dizziness and giddiness; Z90.710 Acquired absence of both cervix and uterus; R51.9 Headache, unspecified; I10 Essential (primary) hypertension; R11.0 Nausea; S70.01XA Contusion of right hip, initial encounter; F32.A Depression, unspecified; Z79.899 Other long term (current) drug therapy
CPT/HCPCS: 70450; 73502; 80048; 85025; 96374; 96375; 99285; A4216; J2405

== ENCOUNTER → 2024-02-04 | Outpatient (CLI) | payer BC, SELFPAY ==
[2024-02-04 10:29] LABS: Thyroid Stim Hormone (TSH) 0.648 uIU/mL (0.358-3.740)
[2024-02-05 16:08] LABS: Endomysial Antibody IgA Negative (Negative); Immunoglobulin A 322 mg/dL (87-352); t-Transglutaminase IgA 3 U/mL (0-3)
== END | disposition home or self-care (01) ==
LOC: LAB 09:05
PROVIDERS: PCP Nurse Practitioner Family; Referring Provider Nurse Practitioner Acute Care; Visit Provider Nurse Practitioner Acute Care
DX: R19.7 Diarrhea, unspecified (principal); R11.2 Nausea with vomiting, unspecified; R10.11 Right upper quadrant pain; R10.13 Epigastric pain
CPT/HCPCS: 36415; 82784; 83516; 84443; 86255

== ENCOUNTER 2024-02-11 05:43 | Day surgery (SDC) | payer BC, SELFPAY ==
--- NOTE | 2024-02-05 12:21 | PAT.ANESEVAL ---
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 When Was Last Pacemaker Check QUESTION #4 FULL TEXT: You/Your Family Experience fever (hyperthermia) with Anesthesia Last Oral Intake Last Oral intake: Last Oral Intake NPO since Meds taken in AM with sips of water? 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 Has anyone observed you stop No 02/05/24 10:47 breathing during sleep? STOP Results Positive 02/05/24 10:47 QUESTION #5 FULL TEXT : Do you snore loudly (louder than talking or can be heard through closed doors)? 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 Specify any problems Hx of Preganancy in last 3 No 02/05/24 10:47 Months Nurse Filling Out Transfusion DSCHRIBER 02/05/24 10:47 & Questions: Date: 02/05/24 02/05/24 10:47 Time: 10:49 02/05/24 10:47 Patient unable to answer at this time (ie. confused, unrespo /Reproduction History /Reproductive History - steamtable worker: /Reproductive Hx- steamtable worker Hx Now No 02/05/24 10:47 Gestational Age (in weeks): EDC: Hx Hx Para Hx Section SAB No 02/05/24 10:47 PFSH Medical History (Updated 02/05/24 @ 10:53 by Kelsey Hutton) Vomiting Seizure BPPV (benign paroxysmal positional vertigo) Difficult intravenous access Non-smoker Dysautonomia-like disorder Nephrolithiasis History of echocardiogram Wears glasses Alcohol use Anemia Easy bruising Restless legs Back pain Seizures Dietary restriction History of IBS Shortness of breath on exertion History of edema Bronchitis History of irregular heartbeat Hypoglycemia Anxiety Depression Migraines Kidney disease Hypertension Home Medications ?Medication ?Instructions ?Recorded ?Last Taken ?Type albuterol sulfate 90 mcg/actuation 1 - 2 puff inhalation Q6H PRN PRN 03/22/13 05/24/14 08:49 History aerosol inhaler (Ventolin HFA) Asthma trazodone 150 mg PO/SL QHS 12/31/20 06/05/21 History diphenhydramine 25 1 tab PO QHS 10/22/21 Unknown History mg-acetaminophen 500 mg tablet (Tylenol PM Extra Strength) spironolactone 25 mg tablet 25 mg PO QDAY 07/01/23 Unknown History hydrochlorothiazide 12.5 mg capsule 12.5 mg PO QDAY 10/05/23 Unknown History potassium citrate 10 mEq (1,080 10 meq PO TID 10/05/23 Unknown History mg) tablet,extended release vortioxetine 10 mg tablet 10 mg PO QDAY 10/05/23 Unknown History (Trintellix) meclizine 25 mg tablet 25 mg PO 4X/DAY PRN PRN Dizziness 12/29/23 Unknown Rx #20 tabs ondansetron 4 mg disintegrating 4 mg PO Q8H PRN PRN Nausea #10 tabs 12/29/23 Unknown Rx tablet methocarbamol 500 mg tablet 500 mg PO TID 02/04/24 Unknown History tizanidine 2 mg tablet 4 mg PO TID PRN PRN muscle 02/04/24 Unknown History spasticity pantoprazole 40 mg tablet,delayed 40 mg PO DAILY 02/05/24 Unknown History release Allergy/AdvReac Type Severity Reaction Status Date / Time baclofen Allergy Severe incontinenc Verified 02/05/24 10:45 e codeine Allergy Hives Verified 02/05/24 10:45 metronidazole (From Flagyl) Allergy Shortness Verified 02/05/24 10:45 of breath morphine Allergy Hives Verified 02/05/24 10:45 shellfish derived Allergy Angioedema Verified 02/05/24 10:45 topiramate (From Topamax) Allergy Other Verified 02/05/24 10:45 tramadol AdvReac Severe seizures Verified 02/05/24 10:45 adhesive AdvReac Rash Verified 02/05/24 10:45 NSAIDS (Non-Steroidal AdvReac PT UNSURE Verified 02/05/24 10:45 Anti-Inflamma OF REACTION Family History Father No cardiac disease Mother No cardiac disease Other Arthritis Asthma Blood clot in vein Bowel disease Breast cancer CVA (cerebral vascular accident) Cervical cancer Depression Diabetes High cholesterol Hypertension Seizures Suicidal ideation Surgical History (Updated 02/05/24 @ 10:55 by Kelsey Hutton) Hx of dilation and curettage History of radiofrequency ablation (RFA) of nerve of lumbar spine H/O: hysterectomy Hx of laparoscopy S/P removal of right ovary S/P tonsillectomy S/P breast lumpectomy Previous section Social History household members: spouse Smoking Status: Never smoker alcohol intake: current alcohol intake frequency: holidays/special occasions only substance use type: does not use what type of physical activity do you participate in: none Audit: Pertinent Findings Pertinent Findings EKG Perinent findings: 01/07/2022 normal sinus rhythm 87 bpm Echo (EF%) pertinent findings: 06/13/2021 ejection fraction 50 to 60% Recommendation Anesthesia Recommendation Anesthesia recommendation: OPTIMIZED for anesthesia
[2024-02-11] VITALS (10 sets, daily range): BP systolic 84–110; BP diastolic 60–67; PULSE 54–85; RESP 12–20; TEMP 36.1–36.4; O2SAT 94–99; BMI 25.3
--- NOTE | 2024-02-11 | IMM_PTH ---
PATIENT: KENDALL RENAE LOC: EN U#:[id number] AGE/SX: 38/F ROOM: RE02/11/[address]: Dr. Bebeto York DO : 1985 BED: DIS: 02/11/2024 SPEC #: [id number] RECD: 02/11/24 11:58 STATUS: CLARA REBrenda #: [id number] SPEEDY: 02/11/24 00:[address]: Bebeto York DEPT: IMMUNOHISTOCHEMISTRY RECD BY: Luzma White ENTERED: 02/11/24 11:59 SP TYPE: IMMUNO OTHR DR: Winsome Cuevas, MARTINE-Sarbjit Tissues: Gastric mucous membrane Procedures: H Pylori (initial) PHYSICIAN & INSTITUTION [place] [id number] SPECIMEN INFORMATION: Tissue Source: B. Gastric body Clinical Info: Diarrhea, N&V, RUQ pain Specimen Number: [id number] CPT code: 91116 METHODOLOGY: Deparaffinized sections of prefer/formalin-fixed tissue or PAP/DQ stained slides are incubated with monoclonal/polyclonal antibodies/oligonucleotide probes. Localization is made via biotin free immunoperoxidase method. Appropriate controls are performed and reacted as expected. Results on target cell population are indicated in the following table: RESULTS: ANTIBODY / CLONE RESULT H Pylori (polyclonal) Negative These tests were developed and their performance characteristics determined by [facility]. They may not have been cleared or approved by the [place]. Food and Drug Administration. The FDA has determined that such clearance or approval is not necessary. The above immunohistochemical/dual MOSES markers are ordered and reviewed by the Pathologist. INTERPRETATION: Gastric body, biopsy: No H. pylori identified on immunohistochemical stain with appropriate controls. GISELLE 02/12/2024
--- NOTE | 2024-02-11 06:35 | PRE.ANES_ITS ---
ASA Classification* ASA Classification ASA Classification: 2 Assessment & Plan Anesthesia* Anesthesia Assessment Anesthesia Assessment: Discussed sedation and/or anesthesia options, risks, benefits, and alternatives with patient/parents/legal guardian/POA. Questions invited. The patient/parents/legal guardian/POA seems to understand and agrees to proceed with anesthesia plan. Reviewed the physical assessment, medical history, allergy history and patient home medications list prior to surgery/procedure/anesthetic and documented any changes. Performed airway and anesthesia risk assessments. Anesthesia Type Anesthesia Type: MAC (Some anxiety, given versed pre op) Anesthesia Focused Assessment* Temperature: 97.6 F Pulse Rate: 85 Blood Pressure: 110/67 Respiratory Rate: 16 Pulse Ox: 99 Airway Assessment Mouth opens: >3 cm Mallampati Score: II Focused Labs Anesthesia Preop lab: CBC WBC 6.7 K/mm3 (4.4-11.0) 12/29/23 14:58 RBC 4.26 M/mm3 (4.2-5.4) 12/29/23 14:58 Hgb 12.8 g/dL (12.0-15.0) 12/29/23 14:58 Hct 40.7 % (37-47) 12/29/23 14:58 Plt Count 224 K/mm3 (150-450) 12/29/23 14:58 CHEMISTRY Potassium 4.5 mmol/L (3.5-5.1) 12/29/23 14:58 Sodium 140 mmol/L (136-145) 12/29/23 14:58 BUN 15 mg/dL (7-18) 12/29/23 14:58 Creatinine 0.98 mg/dL (0.55-1.02) 12/29/23 14:58 Glucose 94 mg/dL (74-106) 12/29/23 14:58 POC Glucose 71 mg/dL (74-106) L 10/23/21 13:17 TSH 0.648 uIU/mL (0.358-3.740) 02/04/24 09:09 COAG PT 13.1 SECONDS (11.7-14.9) 12/15/22 10:20 HCG, Quant 94 mIU/mL (1-3) H 12/15/22 10:20 Urine Test Negative Negative 03/17/22 06:25 Pre-Assessment Diagnosis/Proposed Procedure Planned Operative Procedure(s): EGD Anesthesia History 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 When Was Last Pacemaker Check QUESTION #4 FULL TEXT: You/Your Family Experience fever (hyperthermia) with Anesthesia Last Oral Intake Last Oral intake: Last Oral Intake NPO since Meds taken in AM with sips of water? 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 Female Yes 02/05/24 10:47 HX of Motion Sickness Yes 02/05/24 10:47 HX of N/V After Surgery Yes 02/05/24 10:47 Non-Smoker Yes 02/05/24 10:47 Duration of Surgery greater No 02/05/24 10:47 than 60 minutes Number of Risk Factors 4 02/05/24 10:47 PONV Score Severe Risk 02/05/24 10:47 Height & Weight Height & Weight: Anesthesia: Height & Weight Height 5 ft 4 in 02/11/24 06:03 Weight: 67 kg 02/11/24 06:03 Body Mass Index (BMI) 25.3 02/11/24 06:03 Respiratory Assessment Respiratory Assessment - power 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 Has anyone observed you stop No 02/05/24 10:47 breathing during sleep? STOP Results Positive 02/05/24 10:47 QUESTION #5 FULL TEXT : Do you snore loudly (louder than talking or can be heard through closed doors)? 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 Specify any problems Hx of Preganancy in last 3 No 02/05/24 10:47 Months Nurse Filling Out Transfusion DSCHRIBER 02/05/24 10:47 & Questions: Date: 02/05/24 02/05/24 10:47 Time: 10:49 02/05/24 10:47 Patient unable to answer at this time (ie. 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 engineer: /Reproductive Hx- power electronics research engineer Hx Now No 02/05/24 10:47 Gestational Age (in weeks): EDC: Hx Hx Para Hx Section SAB No 02/05/24 10:47 PFSH Medical History Vomiting Seizure BPPV (benign paroxysmal positional vertigo) Difficult intravenous access Non-smoker Dysautonomia-like disorder Nephrolithiasis History of echocardiogram Wears glasses Alcohol use Anemia Easy bruising Restless legs Back pain Seizures Dietary restriction History of IBS Shortness of breath on exertion History of edema Bronchitis History of irregular heartbeat Hypoglycemia Anxiety Depression Migraines Kidney disease Hypertension Home Medications ?Medication ?Instructions ?Recorded ?Last Taken ?Type albuterol sulfate 90 mcg/actuation 1 - 2 puff inhalation Q6H PRN PRN 03/22/13 05/24/14 08:49 History aerosol inhaler (Ventolin HFA) Asthma trazodone 150 mg PO/SL QHS 12/31/20 06/05/21 History diphenhydramine 25 1 tab PO QHS 10/22/21 Unknown History mg-acetaminophen 500 mg tablet (Tylenol PM Extra Strength) spironolactone 25 mg tablet 25 mg PO QDAY 07/01/23 Unknown History hydrochlorothiazide 12.5 mg capsule 12.5 mg PO QDAY 10/05/23 Unknown History potassium citrate 10 mEq (1,080 10 meq PO TID 10/05/23 Unknown History mg) tablet,extended release vortioxetine 10 mg tablet 10 mg PO QDAY 10/05/23 Unknown History (Trintellix) meclizine 25 mg tablet 25 mg PO 4X/DAY PRN PRN Dizziness 12/29/23 Unknown Rx #20 tabs ondansetron 4 mg disintegrating 4 mg PO Q8H PRN PRN Nausea #10 tabs 12/29/23 Unknown Rx tablet methocarbamol 500 mg tablet 500 mg PO TID 02/04/24 Unknown History tizanidine 2 mg tablet 4 mg PO TID PRN PRN muscle 02/04/24 Unknown History spasticity pantoprazole 40 mg tablet,delayed 40 mg PO DAILY 02/05/24 Unknown History release Allergy/AdvReac Type Severity Reaction Status Date / Time baclofen Allergy Severe incontinenc Verified 02/11/24 06:02 e codeine Allergy Hives Verified 02/11/24 06:02 metronidazole (From Flagyl) Allergy Shortness Verified 02/11/24 06:02 of breath morphine Allergy Hives Verified 02/11/24 06:02 shellfish derived Allergy Angioedema Verified 02/11/24 06:02 topiramate (From Topamax) Allergy Other Verified 02/11/24 06:02 tramadol AdvReac Severe seizures Verified 02/11/24 06:02 adhesive AdvReac Rash Verified 02/11/24 06:02 NSAIDS (Non-Steroidal AdvReac PT UNSURE Verified 02/11/24 06:02 Anti-Inflamma OF REACTION Family History Father No cardiac disease Mother No cardiac disease Other Arthritis Asthma Blood clot in vein Bowel disease Breast cancer CVA (cerebral vascular accident) Cervical cancer Depression Diabetes High cholesterol Hypertension Seizures Suicidal ideation Surgical History Hx of dilation and curettage History of radiofrequency ablation (RFA) of nerve of lumbar spine H/O: hysterectomy Hx of laparoscopy S/P removal of right ovary S/P tonsillectomy S/P breast lumpectomy Previous section Social History household members: spouse Smoking Status: Never smoker alcohol intake: current alcohol intake frequency: holidays/special occasions only substance use type: does not use what type of physical activity do you participate in: none Review of Systems (Anesthesia) ROS Narrative System reviewed and no additional complaints, except as documented.
--- NOTE | 2024-02-11 06:49 | HP.PCM_ITS ---
HPI - General General Date of Admission: 02/11/24 Date of Service: 02/11/24 Chief Complaint: abdominal pain and diarrhea HPI Narrative Chief Complaint: vertigo, vomiting, diarrhea Details: KENDALL RENAE, is a 38 F who presents to the office today for ABD US 01/30/2024 unremarkable ABD US 10/05/2023 No acute sonographic abnormality is demonstrated in the right upper quadrant. Minimal sludge within the gallbladder. LABS 01/30/2024 BUN, Creat, HGB and Albumin are all WNL Colonoscopy 2018 - she reports this was normal EGD 10/23/2021 ([facility]) mild gastritis, biopsy negative for Mayes's and H. pylori - started Omeprazole OTC 1 week ago - no improvement - weak, fatigue - denies any alcohol - denies use of NSAIDS - caffeine - 1 cup a day - she is a non-smoker - she reports she is experiencing night sweats - denies any fever - brain fog - fatigue - weight loss of 7lbs - no formed stools x3 weeks - 3-4x a day - yellow bile - denies any HB - she is vomiting bile - denies any emesis of food - she wakes at HS with pain - abdominal pain x1 month - she reports a HIDA was normal 8 years ago - denies any recent travel - denies any sick contacts - denies any recent ATB use [facility] Medical History Vomiting Seizure BPPV (benign paroxysmal positional vertigo) Difficult intravenous access Non-smoker Dysautonomia-like disorder Nephrolithiasis History of echocardiogram Wears glasses Alcohol use Anemia Easy bruising Restless legs Back pain Seizures Dietary restriction History of IBS Shortness of breath on exertion History of edema Bronchitis History of irregular heartbeat Hypoglycemia Anxiety Depression Migraines Kidney disease Hypertension Home Medications ?Medication ?Instructions ?Recorded ?Last Taken ?Type albuterol sulfate 90 mcg/actuation 1 - 2 puff inhalation Q6H PRN PRN 03/22/13 05/24/14 08:49 History aerosol inhaler (Ventolin HFA) Asthma trazodone 150 mg PO/SL QHS 12/31/20 06/05/21 History diphenhydramine 25 1 tab PO QHS 10/22/21 Unknown History mg-acetaminophen 500 mg tablet (Tylenol PM Extra Strength) spironolactone 25 mg tablet 25 mg PO QDAY 07/01/23 Unknown History hydrochlorothiazide 12.5 mg capsule 12.5 mg PO QDAY 10/05/23 Unknown History potassium citrate 10 mEq (1,080 10 meq PO TID 10/05/23 Unknown History mg) tablet,extended release vortioxetine 10 mg tablet 10 mg PO QDAY 10/05/23 Unknown History (Trintellix) meclizine 25 mg tablet 25 mg PO 4X/DAY PRN PRN Dizziness 12/29/23 Unknown Rx #20 tabs ondansetron 4 mg disintegrating 4 mg PO Q8H PRN PRN Nausea #10 tabs 12/29/23 Unknown Rx tablet methocarbamol 500 mg tablet 500 mg PO TID 02/04/24 Unknown History tizanidine 2 mg tablet 4 mg PO TID PRN PRN muscle 02/04/24 Unknown History spasticity pantoprazole 40 mg tablet,delayed 40 mg PO DAILY 02/05/24 Unknown History release Allergy/AdvReac Type Severity Reaction Status Date / Time baclofen Allergy Severe incontinenc Verified 02/11/24 06:02 e codeine Allergy Hives Verified 02/11/24 06:02 metronidazole (From Flagyl) Allergy Shortness Verified 02/11/24 06:02 of breath morphine Allergy Hives Verified 02/11/24 06:02 shellfish derived Allergy Angioedema Verified 02/11/24 06:02 topiramate (From Topamax) Allergy Other Verified 02/11/24 06:02 tramadol AdvReac Severe seizures Verified 02/11/24 06:02 adhesive AdvReac Rash Verified 02/11/24 06:02 NSAIDS (Non-Steroidal AdvReac PT UNSURE Verified 02/11/24 06:02 Anti-Inflamma OF REACTION Family History Father No cardiac disease Mother No cardiac disease Other Arthritis Asthma Blood clot in vein Bowel disease Breast cancer CVA (cerebral vascular accident) Cervical cancer Depression Diabetes High cholesterol Hypertension Seizures Suicidal ideation Surgical History Hx of dilation and curettage History of radiofrequency ablation (RFA) of nerve of lumbar spine H/O: hysterectomy Hx of laparoscopy S/P removal of right ovary S/P tonsillectomy S/P breast lumpectomy Previous section Social History household members: spouse Smoking Status: Never smoker alcohol intake: current alcohol intake frequency: holidays/special occasions only substance use type: does not use what type of physical activity do you participate in: none ROS Constitutional Constitutional: Denies fatigue, fever(s), poor appetite, weight gain or weight loss Gastrointestinal Gastrointestinal: Denies belching, bloating, change in bowel habits, change in stool character, chewing difficulty, coffee ground emesis, constipation, cramping, diarrhea, dyspepsia, dysphagia, early satiety, excessive flatus, fecal incontinence, heartburn, hematemesis, hematochezia, hemorrhoids, loose stools, melena, nausea, odynophagia, rectal bleeding, tenesmus, vomiting or weight changes Vital Signs Vital Signs Vital Signs: 02/11/24 06:03 02/11/24 06:03 02/11/24 06:35 Temperature 97.6 F L 97.6 F L Temperature Source Temporal Pulse Rate 85 85 Respiratory Rate 16 16 Respiratory Pattern Normal Blood Pressure 110/67 110/67 Blood Pressure Mean 81 Blood Pressure Source Monitor Blood Pressure Position Semi-Fowlers Blood Pressure Location Right Arm Pulse Ox 99 99 Oxygen Delivery Method Room Air Weight Weight: 147 lb 11.355 oz Body Mass Index (BMI) 25.3 Physical Exam Const alert, oriented x3, no apparent distress and healthy appearing General Appearance: cooperative GI normal to inspection, nondistended, normoactive bowel sounds, soft to palpation, non-tender and non-distended Percussion: normal to percussion Rectal Exam: deferred Assessment & Plan Assessment/Plan (1) Diarrhea: (2) N&V (nausea and vomiting): (3) RUQ pain: PLAN: Plan (1) Epigastric abdominal pain: Status: Acute (2) RUQ pain: Status: Acute (3) N&V (nausea and vomiting): Status: Acute (4) Diarrhea: Status: Acute Orders: Orders ENTERIC PATHOGEN PANEL STOOL Today K58.9 - Irritable bowel syndrome, unspecified, R10.11 - Right upper quadrant pain, R10.13 - Epigastric pain, R11.2 - Nausea with vomiting, unspecified, R19.7 - Diarrhea, unspecified Ova and Parasites 8623 Today K58.9 - Irritable bowel syndrome, unspecified, R10.11 - Right upper quadrant pain, R10.13 - Epigastric pain, R11.2 - Nausea with vomiting, unspecified, R19.7 - Diarrhea, unspecified Celiac Disease Profile Today R10.11 - Right upper quadrant pain, R10.13 - Epigastric pain, R11.2 - Nausea with vomiting, unspecified, R19.7 - Diarrhea, unspecified Thyroid Stim Hormone (TSH) Today R10.11 - Right upper quadrant pain, R10.13 - Epigastric pain, R11.2 - Nausea with vomiting, unspecified, R19.7 - Diarrhea, unspecified Hepatobilliary Img w/Pharm Int Today R10.11 - Right upper quadrant pain, R10.13 - Epigastric pain, R11.2 - Nausea with vomiting, unspecified, R19.7 - Diarrhea, unspecified Calprotectin, Stool Today R10.11 - Right upper quadrant pain, R10.13 - Epigastric pain, R11.2 - Nausea with vomiting, unspecified, R19.7 - Diarrhea, unspecified Medications: New pantoprazole 40 mg orally once daily 30 minutes prior to breakfast; 90 tabs 1RF Plan 38y/o female presents for initial consultation with complaints of vomiting and diarrhea x1 month. RUQ pain radiates through to back. She reports this is a cramping pain and attacks of extreme pain causing her to double over. She reports emesis of fluid and stools are yellow liquid. ABD US, CBC and renal panel were unremarkable 01/30/2024. Additionally, she complains of fatigue, night sweats and a weight loss of 7lbs. Abdominal exam today is remarkable for epigastric abdominal tenderness. I have recommended she discontinue OTC Omeprazole and start pantoprazole 40mg daily. I have also scheduled her for an ABD US and EGD. Plan Details Follow Up: 1 Month I have examined the patient and the H&P has been reviewed. There are no clinical changes since date of exam.
--- NOTE | 2024-02-11 07:00 | EGD_PTH ---
PATIENT: KENDALL RENAE LOC: EN U#:[id number] AGE/SX: 38/F ROOM: RE02/11/[address]: Dr. Bebeto York DO : 1985 BED: DIS: 02/11/2024 SPEC #: [id number] RECD: 02/11/24 11:03 STATUS: CLARA SAMMIE #: [id number] SPEEDY: 02/11/24 07:[address]: Bebeto York DEPT: SURGICAL PATHOLOGY RECD BY: Luzma White ENTERED: 02/11/24 13:02 SP TYPE: EGD BIOPSY OT DR: Winsome Cuevas, MARTINE-C Tissues: A - Duodenum, NOS B - Gastric mucous membrane C - Esophagus, NOS Procedures: Surgery Specimen Level IV HEADER OPERATION: EGD PRE-OP DIAGNOSIS: Diarrhea, N&V, RUQ pain TISSUE SUBMITTED: A. Duodenum, B. Gastric body, C. Distal esophagus MICROSCOPIC DIAGNOSIS A. Duodenum, Biopsy: Duodenal Mucosa without dysplasia, intraepithelial lymphocytes, erosions, or organisms. B. Gastric Body, Biopsy: Oxyntic Mucosa without exudate, erosion, polyps, or dysplasia. An immunohistochemical stain for H. pylori with appropriate controls is negative. C. Distal Esophagus, Biopsy: Fragments of squamous and gastric epithelium and gastric mucosa without goblet cells, erosions, granulation tissue, intraepithelial neutrophils or eosinophils, or dysplasia. An Alcian Blue/PAS Stain with appropriate controls is negative for goblet cells. 02/12/2024 COMMENT B. The results of immunohistochemistry for Helicobacter pylori will be reported separately ([id number]). C. Alcian blue/PAS stain with matched control is used in the evaluation of the specimen. MICROSCOPIC DESCRIPTION Slides are reviewed. GROSS DESCRIPTION A. Received is one container labeled with the patient's name and designated duodenum. The specimen consists of multiple irregular fragments of light falk soft tissue that in aggregate measure 1 x 0.2 x 0.1 cm. The specimen is totally submitted in one cassette. B. Received is one container labeled with the patient's name and designated gastric body. The specimen consists of multiple irregular fragments of light falk soft tissue that in aggregate measure 0.5 x 0.2 x 0.1 cm. The specimen is totally submitted in one cassette. C. Received is one container labeled with the patient's name and designated distal esophagus. The specimen consists of multiple irregular fragments of light falk soft tissue that in aggregate measure 1 x 0.5 x 0.2 cm. The specimen is totally submitted in one cassette. /SJ:alethea 02/11/24 TC:4 CPT: 93306w6, 98950
--- NOTE | 2024-02-11 07:46 | OP.CCLET_ITS ---
02/11/2024 Mónica Garcia Re : Upper GI endoscopy procedure for Yadira Vasques Dear Mason This procedure was performed on January. My impressions and recommendations are as follows: Impressions : - The nasopharynx and oropharynx are abnormal, the adenoids are large, the lingual tonsils are enlarged and there is cobblestoning of the posterior pharyngeal wall. - No gross lesions in the entire esophagus. - Z-line irregular, 39 cm from the incisors. Biopsied. - A small amount of food (residue) in the stomach. - Erythematous mucosa in the gastric body. Biopsied. - No gross lesions in the entire examined duodenum. Biopsied. Recommendations : - Discharge patient to home. - Resume previous diet. - Continue present medications. - Await pathology results. - ENT referral My findings are described in the full procedure note, which is enclosed. If I can be of further assistance, please feel free to contact me at . Sincerely, Bebeto York, 02/11/2024 7:45:47 AM This report has been signed electronically.
--- NOTE | 2024-02-11 07:46 | OP.EGD_ITS ---
Patient Name: Yadira Vasques Procedure Date: 02/11/2024 7:21 AM Date of : 1985 Age: 38 Procedure: Upper GI endoscopy Indications: Persistent vomiting of unknown cause, Epigastric abdominal pain, Functional Dyspepsia, Dyspepsia, Indigestion Providers: Bebeto York DO Referring MD: Mónica Garcia Medicines: Monitored Anesthesia Care Patient Profile: This is a 38 year old female. Refer to note in patient chart for documentation of history and physical. Patient has symptoms of chronic dyspepsia, chronic nausea and chronic vomiting. Complications: No immediate complications. Procedure: Pre-Anesthesia Assessment: - Prior to the procedure, a History and Physical was performed, and patient medications and allergies were reviewed. The patient is competent. The risks and benefits of the procedure and the sedation options and risks were discussed with the patient. All questions were answered and informed consent was obtained. Patient identification and proposed procedure were verified by the physician in the pre-procedure area. Mental Status Examination: alert and oriented. Airway Examination: normal oropharyngeal airway and neck mobility. Respiratory Examination: clear to auscultation. Prophylactic Antibiotics: The patient does not require prophylactic antibiotics. Prior Anticoagulants: The patient has taken no anticoagulant or antiplatelet agents except for NSAID medication. ASA Grade Assessment: II - A patient with mild systemic disease. After reviewing the risks and benefits, the patient was deemed in satisfactory condition to undergo the procedure. The anesthesia plan was to use monitored anesthesia care (MAC). Immediately prior to administration of medications, the patient was re-assessed for adequacy to receive sedatives. The heart rate, respiratory rate, oxygen saturations, blood pressure, adequacy of pulmonary ventilation, and response to care were monitored throughout the procedure. The physical status of the patient was re-assessed after the procedure. After obtaining informed consent, the endoscope was passed under direct vision. Throughout the procedure, the patient's blood pressure, pulse, and oxygen saturations were monitored continuously. The Endoscope was introduced through the mouth, and advanced to the second part of duodenum. The upper GI endoscopy was accomplished without difficulty. The patient tolerated the procedure well. Scope In: 7:32:59 AM Scope Out: 7:38:08 AM Total Procedure Duration Time 0 hours 5 minutes 9 seconds Findings: The nasopharynx and oropharynx are abnormal, the adenoids are large, the lingual tonsils are enlarged and there is cobblestoning of the posterior pharyngeal wall. No gross lesions were noted in the entire esophagus. The Z-line was irregular and was found 39 cm from the incisors. Biopsies were taken with a cold forceps for histology. Verification of patient identification for the specimen was done. Estimated blood loss was minimal. A small amount of food (residue) was found in the gastric body. Patchy mildly erythematous mucosa without bleeding was found in the gastric body. Biopsies were taken with a cold forceps for histology. Verification of patient identification for the specimen was done. Estimated blood loss was minimal. Biopsies were taken with a cold forceps for Helicobacter pylori testing. Verification of patient identification for the specimen was done. Estimated blood loss was minimal. No gross lesions were noted in the entire examined duodenum. Biopsies were taken with a cold forceps for histology. Verification of patient identification for the specimen was done. Estimated blood loss was minimal. Impression: - The nasopharynx and oropharynx are abnormal, the adenoids are large, the lingual tonsils are enlarged and there is cobblestoning of the posterior pharyngeal wall. - No gross lesions in the entire esophagus. - Z-line irregular, 39 cm from the incisors. Biopsied. - A small amount of food (residue) in the stomach. - Erythematous mucosa in the gastric body. Biopsied. - No gross lesions in the entire examined duodenum. Biopsied. Recommendation: - Discharge patient to home. - Resume previous diet. - Continue present medications. - Await pathology results. - ENT referral Procedure Code(s): --- Professional --- 53365, Esophagogastroduodenoscopy, flexible, transoral; with biopsy, single or multiple CPT copyright 2021 [employer]. All rights reserved. The codes documented in this report are preliminary and upon identification clerk review may be revised to meet current compliance requirements. Bebeto York DO 02/11/2024 7:45:47 AM This report has been signed electronically. Number of Addenda: 0 Note Initiated On: 02/11/2024 7:21 AM
--- NOTE | 2024-02-11 07:47 | PCM.POST.ANE ---
Anesthesia: Postop Eval I Current Vital Signs Temperature: 97.2 F Pulse Rate: 77 Blood Pressure: 95/61 Respiratory Rate: 16 Pulse Ox: 97 Oxygen Delivery Method: Room Air Assessment Airway patent: Yes Spontaneous unlabored respirations: Yes Mental status: Asleep nausea: No Vomiting: No Anesthesia Complication: No Fluid Hydration Crystalloid volume administer (ml): 30 Total IV fluid infused: 30 Progress Note Anesthesia document: Postop Eval 1 completed: Yes
--- NOTE | 2024-02-11 13:46 | PCM.POSTANE2 ---
Anesthesia Postop Eval I Sum Postop Eval Completion status Anesthesia document: Postop Eval 1 completed: Yes Anesthesia Postop Eval I Summary Anesthesia Postop Eval I Summary: Anesthesia Postop Eval I: Assessment Summary Airway patent Yes 02/11/24 07:48 [email or web address] Spontaneous unlabored Yes 02/11/24 07:48 [email or web address] respirations Mental status Asleep 02/11/24 07:48 [email or web address] nausea No 02/11/24 07:48 [email or web address] Vomiting No 02/11/24 07:48 [email or web address] Anesthesia Postop Eval I: Fluid Summary Crystalloid volume administer 30 02/11/24 07:48 [email or web address] (ml) Colloids volume administered ( ml) Blood Product volume administered (ml) Total IV fluid infused 30 02/11/24 07:48 [email or web address] Anesthesia Postop Eval I: Summary Notes Anesthesia Complication No 02/11/24 07:48 [email or web address] Anesthesia Complication Comment: Post-operative progress note Anesthesia: Postop Eval II Evaluation Mental status: Awake and Calm Pain Level: 0 nausea: No Vomiting: No Complications Anesthesia Complication: No
== END 2024-02-11 08:38 | disposition home or self-care (01) ==
LOC: EN 05:43 → AC 05:44
PROVIDERS: PCP Nurse Practitioner Family; Referring Provider Nurse Practitioner Family; Visit Provider Internal Medicine Gastroenterology
PROC: 0DJ08ZZ Inspection of Upper Intestinal Tract, Via Natural or Artificial Opening Endoscopic (ICD-10-PCS; CPT 43235; principal; 2024-02-11 06:55)
DX: R19.7 Diarrhea, unspecified (principal); R10.13 Epigastric pain; R42 Dizziness and giddiness; R10.11 Right upper quadrant pain; R11.2 Nausea with vomiting, unspecified; I10 Essential (primary) hypertension; Z79.899 Other long term (current) drug therapy; Z90.710 Acquired absence of both cervix and uterus; J39.2 Other diseases of pharynx; K22.89 Other specified disease of esophagus; K31.89 Other diseases of stomach and duodenum; J35.3 Hypertrophy of tonsils with hypertrophy of adenoids
CPT/HCPCS: 43239; 88305; 88342; A4216; J2405

== ENCOUNTER → 2024-03-01 | Outpatient (CLI) | payer BC, SELFPAY ==
--- NOTE | 2024-03-01 08:47 | NM_ITS ---
CLINICAL: 38-year-old female with history of right upper quadrant abdominal pain. RADIONUCLIDE HEPATOBILIARY SCINTIGRAPHY COMPARISON: Abdominal ultrasound report 10/05/2023 FINDINGS: Following the intravenous administration of 5.0 mCi of 99m Tc Mebrofenin, hepatobiliary images reveal: 1. Relatively prompt and homogeneous radiopharmaceutical concentration is noted by a normal sized liver. No parenchymal defects are identified. 2. Gallbladder activity is identified at 15 minutes post radiopharmaceutical administration. 3. Small intestinal tract is observed at 30 minutes following tracer injection. 4. Washout of the radiopharmaceutical by the hepatic parenchyma appears qualitatively normal. Cholecystokinin (0.02 ug/kg) was administered intravenously over a 30-minute period. The post CCK gallbladder ejection fraction calculated at 20 minutes following Cholecystokinin administration was noted to be 35.0 % (normal greater than or equal to 35%) and 74% at 29 minutes. During 30 minutes of post CCK imaging, there is no scintigraphic evidence of reflux of the radiotracer into the common hepatic duct or refilling of the gallbladder. NM/Hepatobilliary Img w/Pharm Int IMPRESSION: 1. NORMAL 99m Tc Mebrofenin hepatobiliary imaging examination with Cholecystokinin. A. A gallbladder ejection fraction calculated to be greater than or equal to 35% following the administration of Cholecystokinin makes the probability of functional hepatobiliary disease (gallbladder and/or sphincter of Oddi dyskinesia) and/or organic hepatobiliary disease (chronic acalculous cholecystitis and/or cystic duct syndrome) to be low. (Stephanie Sotelo et al, Journal of Nuclear Medicine 32:1695, 1991). Electronically Signed: Rafa Bhatt DO at 22:16 EST ,
== END | disposition home or self-care (01) ==
LOC: NM 08:46
PROVIDERS: PCP Nurse Practitioner Family; Referring Provider Nurse Practitioner Acute Care; Visit Provider Nurse Practitioner Acute Care
DX: R19.7 Diarrhea, unspecified (principal); R11.2 Nausea with vomiting, unspecified; R10.11 Right upper quadrant pain; R10.13 Epigastric pain

== ENCOUNTER 2024-03-10 00:43 | Emergency (ER) | payer BC, SELFPAY ==
[2024-03-10] VITALS (7 sets, daily range): BP systolic 103–114; BP diastolic 72–88; PULSE 96–112; RESP 16–30; TEMP 36.6–37; O2SAT 95–100; BMI 27.4
[2024-03-10] MEDS: Lorazepam 2 MG/ML WCH Syringe IM (00:48)
--- NOTE | 2024-03-10 00:50 | CT_ITS ---
EXAM: CT HEAD WITHOUT INTRAVENOUS CONTRAST CLINICAL INDICATION: seizure TECHNIQUE: Multiple axial images were obtained of the head without intravenous contrast. This CT exam was performed using one or more of the following dose reduction techniques: automated exposure control, adjustment of the mA and/or kV according to patient size, and/or use of iterative reconstruction technique. RADIATION DOSE: CTDIvol = 44.99 mGy, DLP = 796.11 mGy-cm COMPARISON: Head CT 12/29/2023 FINDINGS: BRAIN AND EXTRA-AXIAL SPACES: Unremarkable. No intra- or extra-axial hemorrhage. No evidence of acute infarct. No intracranial mass or mass effect. There is preservation of the khan/white matter interface. Posterior fossa structures are unremarkable. Ventricles are appropriate for age. No hydrocephalus. Basal cisterns are patent. BONES/JOINTS: Unremarkable. No discrete lytic or blastic abnormalities. SINUSES: Unremarkable as visualized. Clear. MASTOID AIR CELLS: Unremarkable. Clear. ORBITS: Visualized globes, extraocular muscles, optic nerves and retrobulbar fat appear unremarkable. CT/Brain/Head without Contrast IMPRESSION: Negative head/brain CT without intravenous contrast. Electronically Signed: Kenneth Orellana MD at 2:42 EST ,
--- NOTE | 2024-03-10 00:50 | RAD_ITS ---
EXAM: XR CHEST, 1 VIEW CLINICAL INDICATION: seizure TECHNIQUE: Frontal view of the chest. COMPARISON: Two-view chest 08/18/2022 FINDINGS: LUNGS AND PLEURAL SPACES: Unremarkable. No consolidation or edema. No pneumothorax. No effusion. HEART: Unremarkable. Cardiac silhouette not enlarged. MEDIASTINUM: Central airways and mediastinal contour are unremarkable. BONES/JOINTS: Unremarkable. No acute fracture. SOFT TISSUES: Unremarkable. RAD/Chest 1 View (Portable) IMPRESSION: No radiographic evidence of acute cardiopulmonary disease. Electronically Signed: Kenneth Orellana MD at 1:31 EST ,
--- NOTE | 2024-03-10 01:20 | ED.RN ---
Norma HILL ATTEMPTED AN IV SEVERAL TIMES, Sylvester TRIPLETT RN ATTEMPTED IV. Gil SCOTT RN ATTEMPTED IV. DR ZACHARIAH BRAXTON.
[2024-03-10] MEDS: 0.9% Normal Saline (1000mL) 1,000 ML 999 ML IV (01:31)
--- NOTE | 2024-03-10 01:37 | CT_ITS ---
EXAM: CT ABDOMEN AND PELVIS WITHOUT INTRAVENOUS CONTRAST CLINICAL INDICATION: Intractable nausea and vomiting TECHNIQUE: Helically acquired images were obtained of the abdomen and pelvis without intravenous contrast. This CT exam was performed using one or more of the following dose reduction techniques: automated exposure control, adjustment of the mA and/or kV according to patient size, and/or use of iterative reconstruction technique. RADIATION DOSE: CTDIvol = 14.43 mGy, DLP = 702.79 mGy-cm COMPARISON: No relevant prior studies available. FINDINGS: LOWER THORAX: Unremarkable. Lung bases are clear. No cardiomegaly. No significant pericardial effusion. ABDOMEN: LIVER: Unremarkable. Homogeneous. GALLBLADDER AND BILE DUCTS: Unremarkable. No calcified gallstones. No gallbladder distention or wall edema. No intra- or extrahepatic biliary ductal dilation. PANCREAS: Unremarkable. No focal cystic mass. SPLEEN: Unremarkable. Normal size without focal cystic or solid mass. ADRENALS: Unremarkable. No nodules. KIDNEYS AND URETERS: Tiny nonobstructing stone in the left kidney. Normal renal size and position. STOMACH AND BOWEL: Mild diffuse wall thickening of the descending and sigmoid colon. Small bowel is unremarkable. No stomach or bowel distention. PELVIS: APPENDIX: The appendix is normal. BLADDER: Unremarkable. REPRODUCTIVE: Hysterectomy. ABDOMEN and PELVIS: INTRAPERITONEAL SPACE: Unremarkable. No ascites or other fluid collection. No free air. BONES/JOINTS: Unremarkable. No suspicious lytic or blastic abnormality. SOFT TISSUES: Unremarkable. No discrete abdominal or pelvic wall hernia. VASCULATURE: Unremarkable. Abdominal aorta is non-dilated. LYMPH NODES: Unremarkable. No enlarged lymph nodes. CT/Abdomen/Pelvis without Cont IMPRESSION: 1. Mild diffuse wall thickening of the descending and sigmoid colon. This could indicate a mild infectious or inflammatory colitis. 2. Tiny nonobstructing stone in the left kidney. Electronically Signed: Kenneth Orellana MD at 2:48 EST ,
[2024-03-10] MEDS: HYDROmorphone 0.5 MG/0.5 ML SYRINGE IV (01:46)
--- NOTE | 2024-03-10 01:49 | ED.RN ---
This RN called lab to attempt to draw blood.
[2024-03-10 02:14] LABS: Absolute Lymphocyte Count 0.35 X10^3/uL (0.83-4.51); Absolute Neutrophil Count 10.5 X10^3/uL (2.0-7.7); Basophil# 0.02 X10^3/uL; Basophil% 0.2 % (0-1); Eosinophil# 0.02 X10^3/uL; Eosinophils% 0.2 % (0-5); Hematocrit 41.3 % (37-47); Lymphocyte # 0.35 X10^3/ul (0.83-4.51); Lymphocyte % 3.1 % (19-41); Mean Corp Hgb Conc 31.5 g/dL (32-36); Mean Corpuscular Hgb 29.1 pg (27.0-32.0); Mean Corpuscular Volume 92.6 fL (81-99); Mean Platelet Vol. 10.6 fl (6.2-12.0); Monocyte# 0.42 X10^3/uL; Monocyte% 3.7 % (0-10); NRBC Flagged by Analyzer 0 % (0-5); Neutrophil # 10.52 X10^3/uL (2.7-7.7); Neutrophil % 92.4 % (47-70); POSITIVE DIFFERENTIAL YES; Platelet Count 146 K/mm3 (150-450); RBC Distribution Width CV 12.4 % (11.6-14.6); RBC Distribution Width SD 42.2 fl (35.1-43.9); Red Blood Count 4.46 M/mm3 (4.2-5.4); White Blood Count 11.4 K/mm3 (4.4-11.0)
[2024-03-10 02:24] LABS: Internal QC Validated? YES +Cl - CLEAR BKGD; Pregnancy, Serum, hCG Quali. NEGATIVE Negative
[2024-03-10 02:44] LABS: AST(SGOT) 24 U/L (15-37); Alanine Aminotransfer ALT/SGPT 16 U/L (13-56); Albumin, Serum 4.2 g/dL (3.2-5.0); Alkaline Phosphatase 70 U/L (45-117); Anion Gap 13 (5-15); BUN 17 mg/dL (7-18); BUN/Creat Ratio 14.5 RATIO (10-20); Bilirubin, Direct 0.08 mg/dL (0.00-0.30); Calcium,Total 9.4 mg/dL (8.5-10.1); Chloride 104 mmol/L (98-107); Creatinine, Serum 1.17 mg/dL (0.55-1.02); EST Glomerular Filtration Rate 55 mL/min (>60); Est Glom Filt Rate - Afr Amer 67 mL/min (>60); Estimated Creatinine Clearance 64.25 ml/min; Globulin 3.7 g/dL (2.2-4.2); Glucose 147 mg/dL (74-106); LDH 355 U/L (84-246); Lipase 35 U/L (13-75); Magnesium 1.9 mg/dL (1.6-2.6); Potassium 4.4 mmol/L (3.5-5.1); Protein, Total 7.9 g/dL (6.4-8.2); Sodium Level 138 mmol/L (136-145)
[2024-03-10 02:51] LABS: White Blood Cells 0 SEEN /hpf (0-5)
[2024-03-10 02:53] LABS: Color, Urine Yellow (Yellow); Glucose, Dipstick Normal (Normal); Ketone-Dipstick 50 mg/dl (Negative); Leukocyte Esterase-Dipstick 25 /ul (Negative); Nitrite-Dipstick Negative (Negative); Occult Blood-Urine 10 /ul (Negative); Protein-Dipstick 30 mg/dl (Negative); Specific Gravity, Urine 1.025 (1.002-1.030); Urine Clarity Sl. Cloudy (Clear); Urine Urobilinogen Normal (Normal)
[2024-03-10 03:12] LABS: Amphetamine Urine NEGATIVE (<1000 ng/mL); Barbiturate Urine VISTA NEGATIVE (< 200 ng/mL); Benzodiazepine Urine VISTA POSITIVE (< 200 ng/mL); Cocaine Urine VISTA NEGATIVE (< 300 ng/mL); Ecstacy Urine VISTA POSITIVE (< 500 ng/mL); Methadone Urine VISTA NEGATIVE (< 300 ng/mL); PCP Urine VISTA NEGATIVE (< 25 ng/mL); THC Urine VISTA NEGATIVE (< 50 ng/mL); Vista UDS pH Range 5
--- NOTE | 2024-03-10 03:19 | EX.ED.DYSGE1 ---
HPI History of Present Illness Chief Complaint: Seizure Informant: patient and EMS Narrative Narrative: Patient is a 38-year-old female with past medical history of seizure disorder depression and recurrent diarrhea for which she has been following with GI for. This evening she states she was having intractable bouts of nausea vomiting and diarrhea despite taking her home Zofran. Secondary to the uncontrolled bouts of emesis EMS was called. EMS states when they arrived the patient was awake and alert but once they placed her on the cot she began having generalized tonic-clonic seizure activity. They state they gave her intranasal Versed and upon arrival to the ER have noticed improvement in her seizure activity. EMS also reports her blood sugar was normal Based on the fact patient is altered secondary to seizure activity she cannot provide any further history [facility] Medical History Vomiting Seizure BPPV (benign paroxysmal positional vertigo) Difficult intravenous access Non-smoker Dysautonomia-like disorder Nephrolithiasis History of echocardiogram Wears glasses Alcohol use Anemia Easy bruising Restless legs Back pain Seizures Dietary restriction History of IBS Shortness of breath on exertion History of edema Bronchitis History of irregular heartbeat Hypoglycemia Anxiety Depression Migraines Kidney disease Hypertension Home Medications ?Medication ?Instructions ?Recorded ?Last Taken ?Type albuterol sulfate 90 mcg/actuation 1 - 2 puff inhalation Q6H PRN PRN 03/22/13 05/24/14 08:49 History aerosol inhaler (Ventolin HFA) Asthma trazodone 150 mg PO/SL QHS 12/31/20 06/05/21 History diphenhydramine 25 1 tab PO QHS 10/22/21 Unknown History mg-acetaminophen 500 mg tablet (Tylenol PM Extra Strength) spironolactone 25 mg tablet 25 mg PO QDAY 07/01/23 Unknown History hydrochlorothiazide 12.5 mg capsule 12.5 mg PO QDAY 10/05/23 Unknown History potassium citrate 10 mEq (1,080 10 meq PO TID 10/05/23 Unknown History mg) tablet,extended release vortioxetine 10 mg tablet 10 mg PO QDAY 10/05/23 Unknown History (Trintellix) meclizine 25 mg tablet 25 mg PO 4X/DAY PRN PRN Dizziness 12/29/23 Unknown Rx #20 tabs ondansetron 4 mg disintegrating 4 mg PO Q8H PRN PRN Nausea #10 tabs 12/29/23 Unknown Rx tablet methocarbamol 500 mg tablet 500 mg PO TID 02/04/24 Unknown History tizanidine 2 mg tablet 4 mg PO TID PRN PRN muscle 02/04/24 Unknown History spasticity pantoprazole 40 mg tablet,delayed 40 mg PO BID N/V, Gastritis #60 02/25/24 Unknown Rx release tabs metoclopramide HCl 10 mg tablet 10 mg PO 4X/DAY PRN nausea and 03/10/24 Unknown Rx (Reglan) vomiting #28 tabs Allergy/AdvReac Type Severity Reaction Status Date / Time baclofen Allergy Severe incontinenc Verified 03/10/24 01:24 e codeine Allergy Hives Verified 03/10/24 01:24 metronidazole (From Flagyl) Allergy Shortness Verified 03/10/24 01:24 of breath morphine Allergy Hives Verified 03/10/24 01:24 shellfish derived Allergy Angioedema Verified 03/10/24 01:24 topiramate (From Topamax) Allergy Other Verified 03/10/24 01:24 tramadol AdvReac Severe seizures Verified 03/10/24 01:24 adhesive AdvReac Rash Verified 03/10/24 01:24 NSAIDS (Non-Steroidal AdvReac PT UNSURE Verified 03/10/24 01:24 Anti-Inflamma OF REACTION Family History Father No cardiac disease Mother No cardiac disease Other Arthritis Asthma Blood clot in vein Bowel disease Breast cancer CVA (cerebral vascular accident) Cervical cancer Depression Diabetes High cholesterol Hypertension Seizures Suicidal ideation Surgical History Hx of dilation and curettage History of radiofrequency ablation (RFA) of nerve of lumbar spine H/O: hysterectomy Hx of laparoscopy S/P removal of right ovary S/P tonsillectomy S/P breast lumpectomy Previous section Social History household members: spouse Smoking Status: Never smoker alcohol intake: current alcohol intake frequency: holidays/special occasions only substance use type: does not use what type of physical activity do you participate in: none ROS ROS ED Review of Systems ROS Unobtainable: due to mental status and other Details: Unable to obtain review of systems as patient has altered mental status from seizure activity EXAM Physical Exam Const Vital Signs: 03/10/24 00:44 03/10/24 00:45 03/10/24 01:44 Temperature 98.6 F Temperature Source Axillary Pulse Rate 112 H 98 102 H Respiratory Rate 24 H 30 H 17 Blood Pressure 109/72 114/72 110/88 H Blood Pressure Mean 84 86 95 Pulse Ox 96 96 100 Oxygen Delivery Method Room Air Room Air Room Air 03/10/24 01:44 03/10/24 02:00 03/10/24 03:00 Temperature Temperature Source Pulse Rate 102 H 99 103 H Respiratory Rate 22 H 16 18 Blood Pressure 110/88 H 110/76 103/75 Blood Pressure Mean 95 87 84 Pulse Ox 100 99 95 Oxygen Delivery Method Room Air Room Air Room Air Positive well nourished and well developed General Appearance ED: well developed; Negative for pallor HEENT Reports dry mucous membranes HEENT Narrative: Mucous membranes are dry and tacky No tongue or lip swelling no oral lesions no airway edema or compromise No tongue or cheek biting noted No blood or signs of infection noted in the posterior pharynx Mouth ED: Yes dry mucous membranes Mouth: dry mucous membranes Eyes PERRL General Eye ED: Negative for scleral icterus Neck supple Chest Wall palpation of chest normal Resp clear to auscultation bilaterally Resp Narrative: Patient is tachypneic but breath sounds are clear throughout without signs of respiratory distress such as nasal flaring or retractions or accessory muscle use Cardio regular rhythm Rate: tachycardic and other Other Details: Tachycardic rate with regular rhythm No murmurs rubs or gallops Radial and carotid pulses are equal and symmetric GI non-distended and no masses GI Narrative: Abdomen is soft and nondistended with hyperactive bowel sounds No pulsatile mass or fluid wave noted Auscultation: hyperactive bowel sounds Palpation: soft Extremity normal to inspection Extremity Narrative: No bony deformity or joint effusion present Neuro Neuro Narrative: Patient is altered secondary to seizure activity. She has a gag reflex and is protecting her airway She can localize and withdraw from painful stimuli GCS of 10 Psych Psych Narrative: Patient has altered mental status secondary to seizure activity Skin no rashes or lesions noted and No skin turgor normal Skin Narrative: Skin turgor is increased consistent with dehydration General Skin Exam: Negative for jaundice or pallor MDM MDM MDM Narrative Medical decision making narrative: Patient arrived to the ER afebrile and was still having bouts of generalized tonic-clonic seizure although this was improved compared to EMS as they had provided intranasal Valium. She was protecting her airway and could localize and withdraw from pain going against an acute CVA and therefore he also felt no need for emergent intubation as patient had airway protection. I did raise the patient's right and left arm over top of her head/face and when dropped a struck the side of the bed not her face and this could indicate that seizures are psychogenic. However with her recurrent bouts of nausea and vomiting and then seizure activity there is concern that patient has a spontaneous bleed or mass versus acute kidney injury versus electrolyte abnormality as a potential cause. With the recurrent bouts of vomiting patient does have a history of abdominal surgery and there is concern for potential obstruction or intestinal infection such as abscess or diverticulitis or perforation. A CT of the head was obtained as well as CT of the abdomen and pelvis. As she has had recurrent bouts of vomiting there is also concern for aspiration so a chest x-ray was ordered. Chest x-ray revealed no acute findings. Head CT revealed no acute bleed or mass. Abdominal CT showed intestinal thickening consistent with inflammatory versus infectious colitis which would correlate with her recurrent bouts of diarrhea. She is afebrile her white count is only up by 0.4 and her lactic acid is negative and therefore I feel this is most likely inflammatory and do not feel the need to provide antibiotics. After patient received IM Ativan on top of intranasal value her seizure activity ceased and she returned to her baseline mental status. She was able to tolerate an oral challenge without difficulty. Therefore at this time his overall workup is negative patient does not have GEORGETTE or clinically significant electrolyte abnormalities there is no sign of intestinal perforation or obstruction or acute intracranial bleed or mass and she has returned to her baseline mental status I do not feel there is need for admission or further intervention and patient is otherwise safe for discharge History & Record Review Discussion w/independent historian: EMS personnel Lab Data Attestation: I reviewed the patient's lab results. Labs: Laboratory Results - last 24 hr 03/10/24 03/10/24 02:00 02:37 WBC 11.4 H RBC 4.46 Hgb 13.0 Hct 41.3 MCV 92.6 MCH 29.1 MCHC 31.5 L RDW Std Deviation 42.2 RDW Coeff of Sierra 12.4 Plt Count 146 L MPV 10.6 Immature Gran % (Auto) 0.400 Neut % (Auto) 92.4 H Lymph % (Auto) 3.1 L Webster % (Auto) 3.7 Eos % (Auto) 0.2 Baso % (Auto) 0.2 Absolute Neuts (auto) 10.5 H Absolute Lymphs (auto) 0.35 L Nucleated RBC % 0 Sodium 138 Potassium 4.4 Chloride 104 Carbon Dioxide 21.0 Anion Gap 13 BUN 17 Creatinine 1.17 H Estim Creat Clear Calc 64.25 Est GFR (MDRD) Af Amer 67 Est GFR (MDRD) Non-Af 55 L BUN/Creatinine Ratio 14.5 Glucose 147 H Lactic Acid 1.0 Calcium 9.4 Magnesium 1.9 Total Bilirubin 0.60 Direct Bilirubin 0.08 AST 24 ALT 16 Alkaline Phosphatase 70 Lactate Dehydrogenase 355 H Total Protein 7.9 Albumin 4.2 Globulin 3.7 Lipase 35 Serum , Qual NEGATIVE Urine Color Yellow Urine Clarity Sl. Cloudy Urine pH 5.0 Ur Specific Geraldine 1.025 Urine Protein 30 H Urine Glucose (UA) Normal Urine Ketones 50 H Urine Occult Blood 10 H Urine Nitrite Negative Urine Bilirubin 1 H Urine Urobilinogen Normal Ur Leukocyte Esterase 25 H Urine RBC 0-5 SEEN Urine WBC 0 SEEN Ur Squamous Epith Cells 0-5 SEEN Urine Bacteria RARE Urine Mucus 2+ Urine Opiates Screen POSITIVE H Urine Methadone Screen NEGATIVE Ur Barbiturates Screen NEGATIVE Ur Phencyclidine Scrn NEGATIVE Ur Amphetamines Screen NEGATIVE MDMA (Ecstasy) Screen POSITIVE H U Benzodiazepines Scrn POSITIVE H Urine Cocaine Screen NEGATIVE U Cannabinoids Screen NEGATIVE Ur Drug Screen Comment Ethyl Alcohol 4.0 Radiography Diagnostic Testing: Clinical Impression(s) from Imaging Studies Brain CT 03/10/24 00:50 IMPRESSION: Negative head/brain CT without intravenous contrast. Electronically Signed: Kenneth Orellana MD at 2:42 EST , Chest X-Ray 03/10/24 00:50 IMPRESSION: No radiographic evidence of acute cardiopulmonary disease. Electronically Signed: Kenneth Orellana MD at 1:31 EST Reading Location ID and State: [facility] / [place] Tel , Service support , Abdomen/Pelvis CT 03/10/24 01:37 IMPRESSION: 1. Mild diffuse wall thickening of the descending and sigmoid colon. This could indicate a mild infectious or inflammatory colitis. 2. Tiny nonobstructing stone in the left kidney. Electronically Signed: Kenneth Orellana MD at 2:48 EST Reading Location ID and State: [facility] / [place] Tel , Service support , Chest x-ray as interpreted by the emergency medicine physician reveals no acute infiltrate pneumothorax or pleural effusion Discharge Plan Triage Chief Complaint: Seizure ED Provider: Home Grace Dx/Rx/DC Orders Clinical Impression: Nausea vomiting and diarrhea, Dehydration, Breakthrough seizure Instructions: ED Dehydration (Adult), ED Gastroenteritis, Viral (Adult) Prescriptions: New metoclopramide HCl [Reglan] 10 mg tablet 10 mg PO 4X/DAY PRN (Reason: nausea and vomiting) Qty: 28 0RF No Action spironolactone 25 mg tablet 25 mg PO QDAY tizanidine 2 mg tablet 4 mg PO TID PRN PRN (Reason: muscle spasticity) hydrochlorothiazide 12.5 mg capsule 12.5 mg PO QDAY potassium citrate 10 mEq (1,080 mg) tablet extended release 10 meq PO TID Trintellix 10 mg tablet 10 mg PO QDAY methocarbamol 500 mg tablet 500 mg PO TID pantoprazole 40 mg tablet,delayed release (DR/EC) 40 mg PO BID Qty: 60 1RF Rx Instructions: 40 mg orally once daily 30 minutes prior to breakfast and dinner albuterol sulfate [Ventolin HFA] 1 INHALER inhaler 1 - 2 puff inhalation Q6H PRN PRN (Reason: Asthma) trazodone 150 mg PO/SL QHS diphenhydramine-acetaminophen [Tylenol PM Extra Strength] 25-500 mg Tablet 1 tab PO QHS Rx Instructions: administer while awake meclizine 25 mg tablet 25 mg PO 4X/DAY PRN PRN (Reason: Dizziness) Qty: 20 0RF ondansetron 4 mg tablet,disintegrating 4 mg PO Q8H PRN PRN (Reason: Nausea) Qty: 10 0RF Primary Care Provider: Winsome Cuevas Referrals: Winsome Cuevas SPECIAL EDUCATION COORDINATOR-C [Primary Care Provider] - Activity Restrictions/Additional Instructions: Your workup revealed no sign of brain bleed or mass. It did show changes consistent with dehydration but no signs of kidney damage or severe electrolyte abnormality. Please keep yourself well-hydrated and continue to take your home medications as directed by your doctor. Return to the ER should you have any further concerns Print Language: Upper Sorbian Disposition Disposition: Home, Self Care
[2024-03-10 03:26] LABS: Bacteria RARE /hpf (None Seen); Mucous, Urine 2+ /hpf (<or=2+); Red Blood Cells-Urine 0-5 SEEN /hpf (0-5); Squamous Epithelial Cells - UA 0-5 SEEN /hpf (5-10); Urine Bilirubin Dipstick 1 mg/dL (Negative)
== END 2024-03-10 04:10 | disposition home or self-care (01) ==
PROVIDERS: Emergency Provider Emergency Medicine; PCP Nurse Practitioner Family; Visit Provider Emergency Medicine
DX: R11.2 Nausea with vomiting, unspecified (principal); G40.909 Epilepsy, unspecified, not intractable, without status epilepticus; I10 Essential (primary) hypertension; E86.0 Dehydration; Z90.710 Acquired absence of both cervix and uterus; R19.7 Diarrhea, unspecified
CPT/HCPCS: 36415; 70450; 71045; 74176; 80048; 80076; 80307; 81001; 82077; 83605; 83615; 83690; 83735; 84703; 85025; 87631; 96361; 96372; 96374; 99284

== ENCOUNTER → 2024-03-17 | Outpatient (CLI) | payer BC, SELFPAY ==
--- NOTE | 2024-03-17 07:34 | NM_ITS ---
PROCEDURE: GASTRIC EMPTYING STUDY - 4 HR REASON FOR EXAM: Nausea with vomiting. TECHNIQUE: Nuclear medicine solid phase gastric emptying study. RADIOPHARMACEUTICAL: 1.1 millicurie technetium 99 M sulfur colloid, combined with 2 eggs, 2 slices of bread, and 6 ounces of water. COMPARISON: None. FINDINGS: % gastric emptying, at the following timeframes: 50 minutes: 13%; 111 minutes: 31%; 234 minutes: 68%. Gastric emptying half-time calculated at 171.8 minutes. NM/Gastric Emptying Study - 4 HR IMPRESSION: Normal solid phase gastric emptying. Reading Location: [id number]
== END | disposition home or self-care (01) ==
LOC: NM 07:18
PROVIDERS: PCP Nurse Practitioner Family; Referring Provider Nurse Practitioner Acute Care; Visit Provider Nurse Practitioner Acute Care
DX: R11.2 Nausea with vomiting, unspecified (principal); R19.7 Diarrhea, unspecified; R10.13 Epigastric pain
CPT/HCPCS: 78264; A9541

== ENCOUNTER 2024-04-18 07:05 | Day surgery (SDC) | payer BC, SELFPAY ==
[2024-04-18] VITALS (7 sets, daily range): BP systolic 108–126; BP diastolic 7–87; PULSE 80–112; RESP 16–24; TEMP 36.3–37; O2SAT 98–100; BMI 25.1
--- NOTE | 2024-04-18 08:08 | PCM.PRE.AN2 ---
ASA Classification* ASA Classification ASA Classification: 2 Assessment & Plan Anesthesia* Anesthesia Assessment Anesthesia Assessment: Discussed sedation and/or anesthesia options, risks, benefits, and alternatives with patient/parents/legal guardian/POA. Questions invited. The patient/parents/legal guardian/POA seems to understand and agrees to proceed with anesthesia plan. Reviewed the physical assessment, medical history, allergy history and patient home medications list prior to surgery/procedure/anesthetic and documented any changes. Performed airway and anesthesia risk assessments. Anesthesia Type Anesthesia Type: General Anesthesia Focused Assessment* Temperature: 98.6 F Pulse Rate: 82 Blood Pressure: 112/87 Respiratory Rate: 18 Pulse Ox: 99 Airway Assessment Mouth opens: >3 cm Mallampati Score: II Focused Labs Anesthesia Preop lab: CBC WBC 11.4 K/mm3 (4.4-11.0) H 03/10/24 02:00 03/10/24 RBC 4.46 M/mm3 (4.2-5.4) 03/10/24 02:00 03/10/24 Hgb 13.0 g/dL (12.0-15.0) 03/10/24 02:00 03/10/24 Hct 41.3 % (37-47) 03/10/24 02:00 03/10/24 Plt Count 146 K/mm3 (150-450) L 03/10/24 02:00 03/10/24 CHEMISTRY Potassium 4.4 mmol/L (3.5-5.1) 03/10/24 02:00 03/10/24 Sodium 138 mmol/L (136-145) 03/10/24 02:00 03/10/24 Magnesium 1.9 mg/dL (1.6-2.6) 03/10/24 02:00 03/10/24 BUN 17 mg/dL (7-18) 03/10/24 02:00 03/10/24 Creatinine 1.17 mg/dL (0.55-1.02) H 03/10/24 02:00 03/10/24 Glucose 147 mg/dL (74-106) H 03/10/24 02:00 03/10/24 POC Glucose 71 mg/dL (74-106) L 10/23/21 13:17 10/23/21 TSH 0.648 uIU/mL (0.358-3.740) 02/04/24 09:09 02/04/24 COAG PT 13.1 SECONDS (11.7-14.9) 12/15/22 10:20 12/15/22 HCG, Quant 94 mIU/mL (1-3) H 12/15/22 10:20 12/15/22 Urine Test Negative Negative 03/17/22 06:25 03/17/22 Pre-Assessment Diagnosis/Proposed Procedure Planned Operative Procedure(s): Microlaryngoscopy Anesthesia History 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 When Was Last Pacemaker Check QUESTION #4 FULL TEXT: You/Your Family Experience fever (hyperthermia) with Anesthesia Last Oral Intake Last Oral intake: Last Oral Intake NPO since 20:00 04/18/24 07:41 Meds taken in AM with sips of water? Meds patient instructed to take am of surgery PONV PONV - computer systems software architect: PONV - computer systems software architect Female Yes 04/04/24 09:19 HX of Motion Sickness Yes 04/04/24 09:19 HX of N/V After Surgery Yes 04/04/24 09:19 Non-Smoker Yes 04/04/24 09:19 Duration of Surgery greater Yes 04/04/24 09:19 than 60 minutes Number of Risk Factors 5 04/04/24 09:19 PONV Score Severe Risk 04/04/24 09:19 Height & Weight Height & Weight: Anesthesia: Height & Weight Height 5 ft 4 in 04/18/24 07:41 Weight: 66.4 kg 04/18/24 07:41 Body Mass Index (BMI) 25.1 04/18/24 07:41 Respiratory Assessment Respiratory Assessment - computer systems software architect: Respiratory Tract Infection Hx - computer systems software architect Hx Respiratory Tract Infection No 04/04/24 09:19 STOP Sleep Apnea STOP Sleep Apnea - computer systems software architect: STOP Sleep Apnea - computer systems software architect Hx Hypertension Yes: per pt, controlled on 04/04/24 09:19 meds Hx Sleep Apnea Yes: resolved post T&A 04/04/24 09:19 CPAP No 04/04/24 09:19 BIPAP No 04/04/24 09:19 Do you snore loudly (louder than talking or can be heard Do you often feel tired/ fatigued/ sleepy during daytime? Has anyone observed you stop breathing during sleep? STOP Results Positive 04/04/24 09:19 QUESTION #5 FULL TEXT : Do you snore loudly (louder than talking or can be heard through closed doors)? 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 Specify any problems Hx of Preganancy in last 3 No 04/04/24 09:19 Months Nurse Filling Out Transfusion MGRIFFITH 04/04/24 09:19 & Questions: Date: 04/04/24 04/04/24 09:19 Time: 09:22 04/04/24 09:19 Patient unable to answer at this time (ie. confused, unrespo /Reproduction History /Reproductive History - computer systems software architect: /Reproductive Hx- computer systems software architect Hx Now No 04/04/24 09:19 Gestational Age (in weeks): EDC: Hx Hx Para Hx Section SAB No 04/04/24 09:19 Active Medications Active Medications: Current Medications Generic Name Dose Route Start Last Admin Trade Name Freq PRN Reason Stop Dose Admin Sodium Chloride 1,000 mls @ 15 mls/hr 04/18/24 07:30 IV 04/23/24 20:49 .Q48H [facility] Protocol PFSH Medical History History of renal disease Gastric reflux Asthma PONV (postoperative nausea and vomiting) Leg cramps History of ventricular septal defect Vomiting Seizure BPPV (benign paroxysmal positional vertigo) Difficult intravenous access Non-smoker Dysautonomia-like disorder Nephrolithiasis History of echocardiogram Wears glasses Anemia Easy bruising Restless legs Back pain Seizures Dietary restriction History of IBS Shortness of breath on exertion History of edema History of irregular heartbeat Hypoglycemia Anxiety Depression Migraines Kidney disease Hypertension Home Medications ?Medication ?Instructions ?Recorded ?Last Taken ?Type albuterol sulfate 90 mcg/actuation 1 - 2 puff inhalation Q6H PRN PRN 03/22/13 05/24/14 08:49 History aerosol inhaler (Ventolin HFA) Asthma trazodone 150 mg PO/SL QHS 12/31/20 04/17/24 History diphenhydramine 25 1 tab PO QHS 10/22/21 04/17/24 History mg-acetaminophen 500 mg tablet (Tylenol PM Extra Strength) spironolactone 25 mg tablet 25 mg PO QDAY 07/01/23 04/17/24 History hydrochlorothiazide 12.5 mg capsule 12.5 mg PO QDAY 10/05/23 04/17/24 History potassium citrate 10 mEq (1,080 10 meq PO TID 10/05/23 04/17/24 History mg) tablet,extended release vortioxetine 10 mg tablet 10 mg PO QDAY 10/05/23 04/17/24 History (Trintellix) ondansetron 4 mg disintegrating 4 mg PO Q8H PRN PRN Nausea #10 tabs 12/29/23 04/17/24 Rx tablet tizanidine 2 mg tablet 8 mg PO TID PRN PRN muscle 02/04/24 04/17/24 History spasticity pantoprazole 40 mg tablet,delayed 40 mg PO BID N/V, Gastritis #60 02/25/24 04/18/24 Rx release tabs metoclopramide HCl 10 mg tablet 10 mg PO 4X/DAY PRN nausea and 03/10/24 04/10/24 Rx (Reglan) vomiting #28 tabs buspirone 5 mg tablet 5 mg PO TID PRN anxiety 04/04/24 04/16/24 History Allergy/AdvReac Type Severity Reaction Status Date / Time amoxicillin Allergy Severe hives Verified 04/18/24 07:39 baclofen Allergy Severe incontinenc Verified 04/18/24 07:39 e codeine Allergy Hives Verified 04/18/24 07:39 metronidazole (From Flagyl) Allergy Shortness Verified 04/18/24 07:39 of breath morphine Allergy Hives Verified 04/04/24 09:14 shellfish derived Allergy Angioedema Verified 04/18/24 07:39 topiramate (From Topamax) Allergy Other Verified 04/18/24 07:39 tramadol AdvReac Severe seizures Verified 04/18/24 07:39 adhesive AdvReac Rash Verified 04/18/24 07:39 NSAIDS (Non-Steroidal AdvReac PT UNSURE Verified 04/18/24 07:39 Anti-Inflamma OF REACTION Family History Father No cardiac disease Mother No cardiac disease Other Arthritis Asthma Blood clot in vein Bowel disease Breast cancer CVA (cerebral vascular accident) Cervical cancer Depression Diabetes High cholesterol Hypertension Seizures Suicidal ideation Surgical History Hx of dilation and curettage History of radiofrequency ablation (RFA) of nerve of lumbar spine H/O: hysterectomy Hx of laparoscopy S/P removal of right ovary S/P tonsillectomy S/P breast lumpectomy Previous section Social History household members: spouse Smoking Status: Never smoker alcohol intake: current alcohol intake frequency: holidays/special occasions only substance use type: does not use what type of physical activity do you participate in: none Review of Systems (Anesthesia) ROS Narrative System reviewed and no additional complaints, except as documented.
--- NOTE | 2024-04-18 09:15 | CYST_PTH ---
PATIENT: YADIRA RENAE LOC: [facility] [place] U#:[id number] AGE/SX: 38/F ROOM: RE04/18/[address]: Dr. Cheo Arevalo MD : 1985 BED: DIS: 04/18/2024 SPEC #: [id number] RECD: 04/18/24 11:20 STATUS: CLARA VALENTINOBrenda #: [id number] SPEEDY: 04/18/24 09:[address]: Cheo Arevalo DEPT: SURGICAL PATHOLOGY RECD BY: Luzma White ENTERED: 04/18/24 11:47 SP TYPE: Cyst OTHR DR: MARLENE Garcia Tissues: CYST Procedures: Surgery Specimen Level III HEADER OPERATION: Diagnostic laryngoscopy with excision of cyst PRE-OP DIAGNOSIS: Cyst of pharynx TISSUE SUBMITTED: Vallecular cyst MICROSCOPIC DIAGNOSIS Pharynx, vallecular cyst, excision: * Squamous lined cyst with abundant lymphoid tissue, favor reactive process - see note and Comment. Note: Immunostains were utilized to further assess the lymphoid tissue. There is a mixture of CD3+CD5+ T-cells and CD20+PAX5+ B-cells. CD10 highlights the germinal centers which are BC6+ and BCL2 negative. CD23+ follicular dendritic meshworks are maintained. BCL1 is negative. CD138 highlights the plasma cells and MOSES for kappa and lambda light chains is polytypic with a ratio of 1:1. These findings support a benign reactive lymphoid process. COMMENT Selected slides/imagers were reviewed in intradepartmental consultation ([facility]) by Dr Christine Magana (hematopathology division) and Dr Rosalva Bourgeois (head and neck pathology division). MICROSCOPIC DESCRIPTION Slides are reviewed. All matched controls reacted appropriately IHCs were performed at [facility]: All immunohistochemistry, in situ hybridization, and histochemical tests were developed by and are performed at the [facility], [address], ? [address], [place] [address]. All Immunofluorescent (IF) tests were developed by and are performed at the [facility], [address] [place] [address], [place], [place] ?[address]. All tests reported here, except those addressing HER2 overexpression as a predictive marker, have not been cleared by or approved by the [place] Food and Drug Administration (FDA). The laboratory is regulated under CLIA as qualified to perform high-complexity testing. The tests are used for clinical purposes. They should not be regarded as investigational or for research. GROSS DESCRIPTION Received in formalin labeled with the patient's name Yadira Renae and is not designated are five fragments of pink-falk, smooth, focally wrinkled, irregular shaped, fibrous tissue fragments. Sectioning is unremarkable. Specimen is entirely submitted as follows: Cassette summary:1-one fragment inked black and sectioned2-one fragment inked blue and sectioned3-one fragment inked black and sectioned4-one fragment inked blue and bisected5-one fragment inked blue and bisectedJK 04/18/2024 TC: CPT: 14621, 98014, [id number], 66404,66117
--- NOTE | 2024-04-18 09:21 | PCM.DC.SUM ---
Providers Primary Care Physician: Winsome Cuevas NP-C Reason For Visit: Microlaryngoscopy Medications at Discharge Home Medications albuterol sulfate 90 mcg/actuation aerosol inhaler (Ventolin HFA) 1 - 2 puff inhalation Q6H PRN PRN Asthma 03/22/13 trazodone 150 mg PO/SL QHS 12/31/20 diphenhydramine 25 mg-acetaminophen 500 mg tablet (Tylenol PM Extra Strength) 1 tab PO QHS 10/22/21 spironolactone 25 mg tablet 25 mg PO QDAY 07/01/23 hydrochlorothiazide 12.5 mg capsule 12.5 mg PO QDAY 10/05/23 potassium citrate 10 mEq (1,080 mg) tablet,extended release 10 meq PO TID 10/05/23 vortioxetine 10 mg tablet (Trintellix) 10 mg PO QDAY 10/05/23 ondansetron 4 mg disintegrating tablet 4 mg PO Q8H PRN PRN Nausea #10 tabs 12/29/23 tizanidine 2 mg tablet 8 mg PO TID PRN PRN muscle spasticity 02/04/24 pantoprazole 40 mg tablet,delayed release 40 mg PO BID N/V, Gastritis #60 tabs 02/25/24 metoclopramide HCl 10 mg tablet (Reglan) 10 mg PO 4X/DAY PRN nausea and vomiting #28 tabs 03/10/24 buspirone 5 mg tablet 5 mg PO TID PRN anxiety 04/04/24 Weight / BMI Weight Weight: 66.4 kg Body Mass Index (BMI) 25.1 D/C Instructions Discharge Diet: Soft diet Discharge Activity: Return to Normal Activity DC O2, CPAP, BIPAP Needs Home O2 Discharge instructions: No Please Follow Up With: Cheo Arevalo MD When: 3 weeks Meaningful Use Info Meaningful Use Meaningful Use Diagnoses (Choose all that apply): None applicable Ischemic Stroke Statin Dosing Therapy Reference: STATIN DOSE THERAPY REFERENCE: * Patients > 75 years receive moderate or high dose statin therapy. * Patients 75 years or YOUNGER should receive HIGH intensity statin dose unless contraindicated. You will be required to document reason for non-treatment if statin daily dose does not meet guidelines. HIGH DOSE STATIN THERAPY DAILY Atorvastatin > than or = to 40 mg Rosuvastatin > than or = to 20 mg Amlodipine + Atorvastatin > than or = to 2.5/40 mg Ezetimibe + Simvastatin 10/80 mg Simvastatin 80mg Discharge Plan Admission Attending Provider: Cheo Arevalo Primary Care Provider: Winsome Cuevas Instructions Print Language: Nepali Discharge Orders/Prescriptions Prescriptions: No Action spironolactone 25 mg tablet 25 mg PO QDAY tizanidine 2 mg tablet 8 mg PO TID PRN PRN (Reason: muscle spasticity) hydrochlorothiazide 12.5 mg capsule 12.5 mg PO QDAY potassium citrate 10 mEq (1,080 mg) tablet extended release 10 meq PO TID Trintellix 10 mg tablet 10 mg PO QDAY pantoprazole 40 mg tablet,delayed release (DR/EC) 40 mg PO BID Qty: 60 1RF Rx Instructions: 40 mg orally once daily 30 minutes prior to breakfast and dinner albuterol sulfate [Ventolin HFA] 1 INHALER inhaler 1 - 2 puff inhalation Q6H PRN PRN (Reason: Asthma) trazodone 150 mg PO/SL QHS diphenhydramine-acetaminophen [Tylenol PM Extra Strength] 25-500 mg Tablet 1 tab PO QHS Rx Instructions: administer while awake buspirone 5 mg tablet 5 mg PO TID PRN (Reason: anxiety) ondansetron 4 mg tablet,disintegrating 4 mg PO Q8H PRN PRN (Reason: Nausea) Qty: 10 0RF metoclopramide HCl [Reglan] 10 mg tablet 10 mg PO 4X/DAY PRN (Reason: nausea and vomiting) Qty: 28 0RF Referrals / Follow Up: Winsome Cuevas, [employer]-C [Primary Care Provider] - Disposition Disposition (needs filled in before D/C Order can be placed): Home, Self Care
[2024-04-18] MEDS: Epinephrine (1 mg/ml) 1 MG/ML VIAL (09:44)
--- NOTE | 2024-04-18 09:48 | PCM.OPRPT ---
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 She was placed in the supine position on the operating room table. She was given sufficient general endotracheal anesthesia. The table was turned 90 degrees in a clockwise fashion. A gum guard was placed on the upper dentition. A sliding Jaylen laryngoscope was inserted in the patient's mouth and the base of tongue and vallecula were examined. I then removed the laryngoscope and switched to a Devon laryngoscope. This was reinserted and provided better visualization of the vallecular cyst. I then grasped the cyst wall with up-biting cup forceps. The cyst was removed piecemeal in its entirety and sent for permanent section. I then obtained hemostasis with topical adrenaline pledgets. The pledgets were then removed. Hemostasis was ensured. All instrumentation was then removed. The patient was awoken and brought to the recovery room in stable condition. Blood loss minimal, replacement none. Sponge, needle, and instrument count were correct at the end of the procedure. Surgical Findings: vallecular cyst Complications Complications: No
--- NOTE | 2024-04-18 10:14 | PCM.POST.ANE ---
Anesthesia: Postop Eval I Current Vital Signs Temperature: 974 F Pulse Rate: 105 Blood Pressure: 124/73 Respiratory Rate: 24 Pulse Ox: 100 Oxygen Delivery Method: Venturi Mask Oxygen Flow Rate (L/min): 5 Assessment Airway patent: Yes Spontaneous unlabored respirations: Yes Mental status: Awake and Uncooperative nausea: No Vomiting: No Anesthesia Complication: No Fluid Hydration Crystalloid volume administer (ml): 750 Total IV fluid infused: 750 Progress Note Anesthesia document: Postop Eval 1 completed: Yes
--- NOTE | 2024-04-18 10:35 | POSTOPAN2_ITS ---
Anesthesia Postop Eval I Sum Postop Eval Completion status Anesthesia document: Postop Eval 1 completed: Yes Anesthesia Postop Eval I Summary Anesthesia Postop Eval I Summary: Anesthesia Postop Eval I: Assessment Summary Airway patent Yes 04/18/24 10:15 [email or web address] Spontaneous unlabored Yes 04/18/24 10:15 [email or web address] [email or web address] respirations Mental status Awake, 04/18/24 10:15 [email or web address] [email or web address] Uncooperative nausea No 04/18/24 10:15 [email or web address] Vomiting No 04/18/24 10:15 [email or web address] [email or web address] Anesthesia Postop Eval I: Fluid Summary Crystalloid volume administer 750 04/18/24 10:15 [email or web address] (ml) Colloids volume administered ( ml) Blood Product volume administered (ml) Total IV fluid infused 750 04/18/24 10:15 [email or web address] [email or web address] Anesthesia Postop Eval I: Summary Notes Anesthesia Complication No 04/18/24 10:15 [email or web address] Anesthesia Complication Comment: Post-operative progress note Anesthesia: Postop Eval II Evaluation Mental status: Awake Pain Level: 0 nausea: No Vomiting: No
--- NOTE | 2024-04-18 10:35 | PCM.POSTANE2 ---
Anesthesia Postop Eval I Sum Postop Eval Completion status Anesthesia document: Postop Eval 1 completed: Yes Anesthesia Postop Eval I Summary Anesthesia Postop Eval I Summary: Anesthesia Postop Eval I: Assessment Summary Airway patent Yes 04/18/24 10:15 [email or web address] Spontaneous unlabored Yes 04/18/24 10:15 [email or web address] respirations Mental status Awake, 04/18/24 10:15 [email or web address] Uncooperative nausea No 04/18/24 10:15 [email or web address] Vomiting No 04/18/24 10:15 [email or web address] Anesthesia Postop Eval I: Fluid Summary Crystalloid volume administer 750 04/18/24 10:15 [email or web address] (ml) Colloids volume administered ( ml) Blood Product volume administered (ml) Total IV fluid infused 750 04/18/24 10:15 [email or web address] Anesthesia Postop Eval I: Summary Notes Anesthesia Complication No 04/18/24 10:15 [email or web address] Anesthesia Complication Comment: Post-operative progress note Anesthesia: Postop Eval II Evaluation Mental status: Awake Pain Level: 0 nausea: No Vomiting: No
== END 2024-04-18 11:21 | disposition home or self-care (01) ==
LOC: SDC 07:06 → AC 07:07
PROVIDERS: PCP Nurse Practitioner Family; Referring Provider Otolaryngology; Visit Provider Otolaryngology
PROC: 0CJS8ZZ Inspection of Larynx, Via Natural or Artificial Opening Endoscopic (ICD-10-PCS; CPT 31575; principal; 2024-04-18 09:10)
DX: J38.7 Other diseases of larynx (principal); I10 Essential (primary) hypertension; F41.9 Anxiety disorder, unspecified; F32.A Depression, unspecified; J45.909 Unspecified asthma, uncomplicated; Z79.899 Other long term (current) drug therapy; Z79.51 Long term (current) use of inhaled steroids
CPT/HCPCS: 31540; 00320; 88304; J2405

== ENCOUNTER 2024-06-27 19:24 | Emergency (ER) | payer BC, SELFPAY ==
[2024-06-27 19:25] VITALS: BP 105/64; PULSE 71; RESP 18; TEMP 36.6; O2SAT 96; BMI 28.3
--- NOTE | 2024-06-27 19:37 | ED.VIS.BACK ---
HPI History of Present Illness Chief Complaint: Back [facility] Medical History History of renal disease Gastric reflux Asthma PONV (postoperative nausea and vomiting) Leg cramps History of ventricular septal defect Vomiting Seizure BPPV (benign paroxysmal positional vertigo) Difficult intravenous access Non-smoker Dysautonomia-like disorder Nephrolithiasis History of echocardiogram Wears glasses Anemia Easy bruising Restless legs Back pain Seizures Dietary restriction History of IBS Shortness of breath on exertion History of edema History of irregular heartbeat Hypoglycemia Anxiety Depression Migraines Kidney disease Hypertension Home Medications ?Medication ?Instructions ?Recorded ?Last Taken ?Type albuterol sulfate 90 mcg/actuation 1 - 2 puff inhalation Q6H PRN PRN 03/22/13 05/24/14 08:49 History aerosol inhaler (Ventolin HFA) Asthma trazodone 150 mg PO/SL QHS 12/31/20 04/17/24 History diphenhydramine 25 1 tab PO QHS 10/22/21 04/17/24 History mg-acetaminophen 500 mg tablet (Tylenol PM Extra Strength) spironolactone 25 mg tablet 25 mg PO QDAY 07/01/23 04/17/24 History hydrochlorothiazide 12.5 mg capsule 12.5 mg PO QDAY 10/05/23 04/17/24 History potassium citrate 10 mEq (1,080 10 meq PO TID 10/05/23 04/17/24 History mg) tablet,extended release vortioxetine 10 mg tablet 10 mg PO QDAY 10/05/23 04/17/24 History (Trintellix) ondansetron 4 mg disintegrating 4 mg PO Q8H PRN PRN Nausea #10 tabs 12/29/23 04/17/24 Rx tablet tizanidine 2 mg tablet 8 mg PO TID PRN PRN muscle 02/04/24 04/17/24 History spasticity pantoprazole 40 mg tablet,delayed 40 mg PO BID N/V, Gastritis #60 02/25/24 04/18/24 Rx release tabs metoclopramide HCl 10 mg tablet 10 mg PO 4X/DAY PRN nausea and 03/10/24 04/10/24 Rx (Reglan) vomiting #28 tabs buspirone 5 mg tablet 5 mg PO TID PRN anxiety 04/04/24 04/16/24 History Allergy/AdvReac Type Severity Reaction Status Date / Time amoxicillin Allergy Severe hives Verified 06/27/24 19:35 baclofen Allergy Severe incontinenc Verified 06/27/24 19:35 e codeine Allergy Hives Verified 06/27/24 19:35 metronidazole (From Flagyl) Allergy Shortness Verified 06/27/24 19:35 of breath morphine Allergy Hives Verified 06/27/24 19:35 shellfish derived Allergy Angioedema Verified 06/27/24 19:35 topiramate (From Topamax) Allergy Other Verified 06/27/24 19:35 tramadol AdvReac Severe seizures Verified 06/27/24 19:35 adhesive AdvReac Rash Verified 06/27/24 19:35 NSAIDS (Non-Steroidal AdvReac PT UNSURE Verified 06/27/24 19:35 Anti-Inflamma OF REACTION Family History Father No cardiac disease Mother No cardiac disease Other Arthritis Asthma Blood clot in vein Bowel disease Breast cancer CVA (cerebral vascular accident) Cervical cancer Depression Diabetes High cholesterol Hypertension Seizures Suicidal ideation Surgical History (Updated 06/27/24 @ 19:34 by Aylin Field) History of spinal fusion Hx of dilation and curettage History of radiofrequency ablation (RFA) of nerve of lumbar spine H/O: hysterectomy Hx of laparoscopy S/P removal of right ovary S/P tonsillectomy S/P breast lumpectomy Previous section Social History household members: spouse Smoking Status: Never smoker alcohol intake: current alcohol intake frequency: holidays/special occasions only substance use type: does not use what type of physical activity do you participate in: none EXAM Physical Exam Const Vital Signs: 06/27/24 19:25 06/27/24 22:00 Temperature 98 F Temperature Source Oral Pulse Rate 71 71 Respiratory Rate 18 16 Blood Pressure 105/64 124/59 H Blood Pressure Mean 77 80 Pulse Ox 96 96 Oxygen Delivery Method Room Air Room Air MDM MDM MDM Narrative Medical decision making narrative: HISTORY OF PRESENT ILLNESS: Chief complaint: Back pain 38-year-old female history of seizure disorder, diarrhea dysautonomia like syndrome, nephrolithiasis, vertigo, presents with acute onset of right hip pain, right lower quad abdominal pain. Patient states this afternoon she was taking a nap. She states when she woke up from her nap she moved her right leg to try to cross over her left leg and she felt a pop and severe pain in the right lower quadrant right hip. Denies back pain. Patient denies any saddle anesthesia, urinary retention, bowel or bladder incontinence, lower extremity weakness, fever or IV drug use, no recent spinal manipulation or surgery, no recent urinary catheterization. Notes no urinary complaints. No fever. No vomiting. No she is in severe pain. States the pain is worse when she moves her right lower extremity. She also surgeries done at [facility]. REVIEW OF SYSTEMS: Pertinent positives: Right hip pain, right lower quadrant abdominal pain Pertinent negatives: Followed by incontinence, fever PHYSICAL EXAM: Nursing triage notes reviewed, Vital signs reviewed Constitutional: please see mdm HENT: MMM Eyes: Pupils equal round and reactive to light, Extraocular muscles intact Neck: No stridor, no JVD, full neck ROM Lungs: Clear to auscultation, No wheezing or rales. No increased work of breathing, no conversational dyspnea, no accessory muscle use, no nasal flaring. No respiratory distress noted Heart: Regular rate and rhythm, No murmurs, No rubs and No gallops, 2+ distal pulses (radial, femoral, posterior tibial) in all extremities Abdomen: Soft, right lower quadrant TTP, no rigidity, rebound or guarding, no obvious peritoneal signs, no palpable pulsatile abdominal masses, no auscultated abdominal bruit : No CVAT Extremities: No edema Neuro: No new focal neurological deficits, cranial nerves II through XII intact, 5/5 strength in all present extremities. Intact sensation to light touch in all present extremities, 2+ reflexes bilateral patella tendons. Skin: Surgical scar clean dry intact, no fluctuance induration crepitus or bullae. No purulence noted. MEDICAL DECISION MAKING: Chief Complaint: please see HPI External records reviewed: Reviewed prior imaging studies Factors affecting care: History of recent back surgery Social determinants of health: none History obtained from others: Consults: none [facility] Narrative: Patient was initially hemodynamically stable, afebrile and nontoxic-appearing. Exam with TTP over right lower quadrant and right hip I considered the following differential diagnosis: Right hip fracture dislocation, intra-abdominal perforation, obstruction, lumbar spine bony abdomen I obtained a broad lab and imaging workup to further elucidate etiology of the patient's complaints ALL IMAGES (IF OBTAINED) HAVE BEEN PERSONALLY REVIEWED AND INTERPRETED BY MYSELF. CT scan of the lumbar spine showed no traumatic malalignment or bony abnormalities CT scan of the abdomen pelvis with no evidence of intra-abdominal surgical pathology or postop infection X-ray of the patient's right hip and pelvis was read reviewed personally by myself showed no evidence of obvious bony abnormality or traumatic malalignment CBC without leukocytosis, severe anemia, no thrombocytopenia. Lipase is wnl indicating no pancreatic inflammation. CMP without evidence of acute kidney injury, significant electrolyte abnormality, anion gap to suggest end organ hypo-perfusion, no evidence of metabolic acidosis with a normal bicarbonate, no evidence of hepatobiliary obstructive pathology. Urinalysis shows no evidence of urinary inflammation suggestive of UTI Urine test is negative The synthesis of the patient's history, physical exam, labs images suggest no acute life-limiting etiology. No sign of postsurgical emergencies. She is appropriate for discharge home with close outpatient follow-up. Strict return precautions were discussed The patient and/or family, caregivers express understanding. The patient and/or family, caregivers agrees with the plan. Shared decision making: I will have a discussion with the patient and or visitors regarding risk/benefits of further testing or admission. They will be made aware of of the risk/benefits inherent in this decision they will be given the opportunity to voice understanding. Total critical care time today provided was at least 0 minutes. This excludes separately billable procedures. Critical care time (if documented) is secondary to the patient having high probability of clinically significant/life threatening deterioration in the patient's condition which required my urgent intervention. Impression: 1. Right hip strain 2. Postop pain Dispo: Discharge home This note was generated with Fingo dictation software. It may contain incorrect words, spelling, and punctuation that were not noted in review of the chart prior to signing. Lab Data Labs: Laboratory Results - last 24 hr 06/27/24 06/27/24 20:20 21:17 WBC 8.2 RBC 3.87 L Hgb 11.9 L Hct 37.6 MCV 97.2 MCH 30.7 MCHC 31.6 L RDW Std Deviation 44.5 H RDW Coeff of [place] 12.6 Plt Count 182 MPV 10.9 Sodium 138 Potassium 4.4 Chloride 104 Carbon Dioxide 24.7 Anion Gap 10 BUN 13 Creatinine 0.87 Estim Creat Clear Calc 87.63 Est GFR (MDRD) Non-Af 88 BUN/Creatinine Ratio 15.4 Glucose 93 Calcium 9.2 Total Bilirubin 0.17 AST 29 ALT 16 Alkaline Phosphatase 68 Total Protein 6.2 Albumin 3.7 Globulin 2.5 Albumin/Globulin Ratio 1.5 Lipase 17 Urine Color Straw Urine Clarity Clear Urine pH 7.0 Ur Specific [place] 1.005 Urine Protein 15 H Urine Glucose (UA) Normal Urine Ketones Negative Urine Occult Blood Negative Urine Nitrite Negative Urine Bilirubin Negative Urine Urobilinogen Normal Ur Leukocyte Esterase Negative Urine RBC 0 SEEN Urine WBC 0-5 SEEN Ur Squamous Epith Cells 0-5 SEEN Urine Bacteria 2+ Urine Mucus 0 SEEN Urine Test Negative Radiography Diagnostic Testing: Clinical Impression(s) from Imaging Studies Abdomen/Pelvis CT 06/27/24 19:46 IMPRESSION: 1. Apparent wall thickening and fat stranding of the descending colon and sigmoid colon could represent colitis with contained perforation anteriorly in the left hemipelvis. No abscess. 2. Hepatomegaly with fatty infiltration. 3. Fecal retention in the colon consistent with constipation. Reading Location: [facility] Lumbar Spine CT 06/27/24 19:50 IMPRESSION: Status post L5-S1 anterior intervertebral disc spacer/replacement appears intact and anatomic. Endplate lucency with surrounding sclerosis at the inferior aspect of L5 in the area of anchor screw was previously seen prior to hardware placement on the CT abdomen and pelvis and is consistent with pre-existing degenerative endplate change. No fracture or malalignment. Presacral stranding, edema with a small amount tracking along the visualized left pelvic sidewall which is associated with a few small foci of air may represent postsurgical changes. Reading Location: [id number] Hip/Pelvis X-Ray 06/27/24 21:40 IMPRESSION: Normal right hip x-rays. Reading Location: [facility] Discharge Plan Triage Chief Complaint: Back ED Provider: Bubba Nevarez Dx/Rx/DC Orders Prescriptions: No Action spironolactone 25 mg tablet 25 mg PO QDAY tizanidine 2 mg tablet 8 mg PO TID PRN PRN (Reason: muscle spasticity) hydrochlorothiazide 12.5 mg capsule 12.5 mg PO QDAY potassium citrate 10 mEq (1,080 mg) tablet extended release 10 meq PO TID Trintellix 10 mg tablet 10 mg PO QDAY pantoprazole 40 mg tablet,delayed release (DR/EC) 40 mg PO BID Qty: 60 1RF Rx Instructions: 40 mg orally once daily 30 minutes prior to breakfast and dinner albuterol sulfate [Ventolin HFA] 1 INHALER inhaler 1 - 2 puff inhalation Q6H PRN PRN (Reason: Asthma) trazodone 150 mg PO/SL QHS diphenhydramine-acetaminophen [Tylenol PM Extra Strength] 25-500 mg Tablet 1 tab PO QHS Rx Instructions: administer while awake buspirone 5 mg tablet 5 mg PO TID PRN (Reason: anxiety) ondansetron 4 mg tablet,disintegrating 4 mg PO Q8H PRN PRN (Reason: Nausea) Qty: 10 0RF metoclopramide HCl [Reglan] 10 mg tablet 10 mg PO 4X/DAY PRN (Reason: nausea and vomiting) Qty: 28 0RF Primary Care Provider: Winsome Cuevas Referrals: Winsome Cuevas NP-C [Primary Care Provider] - Print Language: Bermudian
--- NOTE | 2024-06-27 19:46 | CT_ITS ---
EXAM: CT Abdomen and Pelvis With Intravenous Contrast CLINICAL INDICATION: RLQ ABDOMINAL PAIN TECHNIQUE: Axial computed tomography images of the abdomen and pelvis with intravenous contrast. This CT exam was performed using one or more of the following dose reduction techniques: automated exposure control, adjustment of the mA and/or kV according to patient size, and/or use of iterative reconstruction technique. COMPARISON: CT Abdomen Pelvis dated 03/10/2024 FINDINGS: LUNG BASES: Unremarkable. No mass. No consolidation. ABDOMEN: LIVER: Hepatomegaly with fatty infiltration. GALLBLADDER AND BILE DUCTS: Unremarkable. No calcified stones. No ductal dilation. PANCREAS: Unremarkable. No mass. No ductal dilation. SPLEEN: Unremarkable. No splenomegaly. ADRENALS: Unremarkable. No mass. KIDNEYS AND URETERS: Unremarkable. No solid mass. No hydronephrosis. STOMACH AND BOWEL: Apparent wall thickening and fat stranding of the descending colon and sigmoid colon could represent colitis with contained perforation anteriorly in the left hemipelvis. No abscess. Fecal retention in the colon consistent with constipation. No obstruction. PELVIS: APPENDIX: No findings to suggest acute appendicitis. BLADDER: Unremarkable. No mass. REPRODUCTIVE: Hypodense lesion of the left adnexa, likely ovarian cysts, measuring up to 1.4 cm. ABDOMEN and PELVIS: INTRAPERITONEAL SPACE: Unremarkable. No free air. No significant fluid collection. BONES/JOINTS: Status post anterior fusion of L5-S1. No acute fracture. No dislocation. SOFT TISSUES: Unremarkable. VASCULATURE: Unremarkable. No abdominal aortic aneurysm. LYMPH NODES: Unremarkable. No enlarged lymph nodes. CT/Abdomen/Pelvis W IV Cont ONLY IMPRESSION: 1. Apparent wall thickening and fat stranding of the descending colon and sigm oid colon could represent colitis with contained perforation anteriorly in the left hemipelvis. No abscess. 2. Hepatomegaly with fatty infiltration. 3. Fecal retention in the colon consistent with constipation. Reading Location: [id number]
--- NOTE | 2024-06-27 19:50 | CT_ITS ---
PROCEDURE: SPINE LUMBAR WITHOUT CONTRAST 06/27/2024 REASON FOR EXAM: RECENT BACK SURGERY RULE OUT HARDWARE FAILURE TECHNIQUE: Lumbar spine CT without contrast. Coronal and Sagittal reconstruction series were provided. One or more dose reduction techniques were used (e.g., Automated exposure control, adjustment of the mA and/or kV according to patient size, use of iterative reconstruction technique COMPARISON: CT abdomen and pelvis 03/10/2024. RADIATION DOSE SUMMARY: CTDlvol: 16.62 mGy DLP: 691.69 mGycm FINDINGS: Status post L5-S1 anterior intervertebral disc spacer/replacement appears intact and anatomic. Endplate lucency with surrounding sclerosis at the inferior aspect of L5 in the area of anchor screw was previously seen prior to hardware placement on the CT abdomen and pelvis and is consistent with pre-existing degenerative endplate change. No fracture or malalignment. Small calcification centrally within the left kidney axial 28 suggest a small nonobstructing intrarenal stone. Presacral stranding, edema with a small amount tracking along the visualized left pelvic sidewall which is associated with a few small foci of air may represent postsurgical changes. No CT evidence of significant appearing central canal narrowing. CT/Spine Lumbar without Contrast IMPRESSION: Status post L5-S1 anterior intervertebral disc spacer/replacement appears intac t and anatomic. Endplate lucency with surrounding sclerosis at the inferior aspect of L5 in the area of anchor screw was previous ly seen prior to hardware placement on the CT abdomen and pelvis and is consistent with pre-existing degenerative endplate ch milad. No fracture or malalignment. Presacral stranding, edema with a small amount tracking along the visualized le ft pelvic sidewall which is associated with a few small foci of air may represent postsurgical changes. Reading Location: [id number]
[2024-06-27] MEDS: Acetaminophen 325 MG Tablet 650 MG PO (20:04)
[2024-06-27] MEDS: oxyCODONE 5 MG Tablet PO (20:04)
[2024-06-27 20:37] LABS: Hematocrit 37.6 % (37-47); Hemoglobin 11.9 g/dL (12.0-15.0); Mean Corp Hgb Conc 31.6 g/dL (32-36); Mean Corpuscular Hgb 30.7 pg (27.0-32.0); Mean Corpuscular Volume 97.2 fL (81-99); Mean Platelet Vol. 10.9 fl (6.2-12.0); Platelet Count 182 K/mm3 (150-450); RBC Distribution Width CV 12.6 % (11.6-14.6); RBC Distribution Width SD 44.5 fl (35.1-43.9); Red Blood Count 3.87 M/mm3 (4.2-5.4); White Blood Count 8.2 K/mm3 (4.4-11.0)
[2024-06-27 20:54] LABS: Lipase 17 U/L (13-75)
[2024-06-27 21:11] LABS: ALB/GLOB Ratio 1.5 RATIO (0.9-2.4); AST(SGOT) 29 U/L (<=31); Alanine Aminotransfer ALT/SGPT 16 U/L (<=34); Albumin, Serum 3.7 g/dL (3.5-5.0); Alkaline Phosphatase 68 U/L (35-104); Anion Gap 10 (5-15); BUN 13 mg/dL (4-19); BUN/Creat Ratio 15.4 RATIO (10-20); Calcium,Total 9.2 mg/dL (7.6-11.0); Carbon Dioxide 24.7 mmol/L (21.0-32.0); Chloride 104 mmol/L (98-108); Creatinine, Serum 0.87 mg/dL (0.70-1.20); EST Glomerular Filtration Rate 88 (>60); Estimated Creatinine Clearance 87.63 ml/min (50-250); Globulin 2.5 g/dL (2.2-4.2); Glucose 93 mg/dL (70-99); Potassium 4.4 mmol/L (3.3-5.1); Protein, Total 6.2 g/dL (5.9-8.4); Sodium Level 138 mmol/L (133-145); Total Bilirubin 0.17 mg/dL (0.00-1.30)
[2024-06-27 21:22] LABS: Mucous, Urine 0 SEEN /hpf (<or=2+); Red Blood Cells-Urine 0 SEEN /hpf (0-5)
[2024-06-27 21:39] LABS: Color, Urine Straw (Yellow); Glucose, Dipstick Normal (Normal); Ketone-Dipstick Negative (Negative); Leukocyte Esterase-Dipstick Negative /ul (Negative); Nitrite-Dipstick Negative (Negative); Occult Blood-Urine Negative /ul (Negative); Protein-Dipstick 15 mg/dl (Negative); Specific Gravity, Urine 1.005 (1.002-1.030); Urine Bilirubin Dipstick Negative (Negative); Urine Clarity Clear (Clear); Urine Urobilinogen Normal (Normal)
--- NOTE | 2024-06-27 21:40 | RAD_ITS ---
EXAM: XR Right Hip With Pelvis When Performed, 2 or 3 Views CLINICAL INDICATION: HIP PAIN TECHNIQUE: Two or three views of the right hip with pelvis when performed. COMPARISON: No relevant prior studies available. FINDINGS: BONES/JOINTS: Unremarkable. No acute fracture. No dislocation. SOFT TISSUES: Unremarkable. RAD/HIP, UNI W/ Pelvis 2-3 Views IMPRESSION: Normal right hip x-rays. Reading Location: [id number]
[2024-06-27 21:41] LABS: Internal QC Validated? YES +Cl - CLEAR BKGD; Pregnancy, Urine Negative Negative; Record Kit Lot#,Urine Preg 929381
[2024-06-27 22:00] VITALS: BP 124/59; PULSE 71; RESP 16; O2SAT 96
[2024-06-27 22:13] LABS: Bacteria 2+ /hpf (None Seen); Squamous Epithelial Cells - UA 0-5 SEEN /hpf (5-10); White Blood Cells 0-5 SEEN /hpf (0-5)
[2024-06-27 23:39] VITALS: BP 107/67; PULSE 79; RESP 18; TEMP 36.6; O2SAT 96
== END 2024-06-27 23:56 | disposition home or self-care (01) ==
PROVIDERS: Emergency Provider Emergency Medicine; PCP Nurse Practitioner Family; Referring Provider Emergency Medicine; Visit Provider Emergency Medicine
DX: M54.9 Dorsalgia, unspecified (principal); G89.18 Other acute postprocedural pain; S73.101A Unspecified sprain of right hip, initial encounter; R10.31 Right lower quadrant pain; I10 Essential (primary) hypertension; K21.9 Gastro-esophageal reflux disease without esophagitis; J45.909 Unspecified asthma, uncomplicated; Z98.890 Other specified postprocedural states; X58.XXXA Exposure to other specified factors, initial encounter
CPT/HCPCS: 36415; 72131; 73502; 74177; 80053; 81001; 81025; 83690; 85027; 99285; Q9967; A4216

== ENCOUNTER 2024-08-24 11:12 | Emergency (ER) | payer BC, SELFPAY ==
[2024-08-24 11:13] VITALS: BP 125/79; PULSE 95; RESP 26; TEMP 36.7; O2SAT 100; BMI 26.9
[2024-08-24 11:16] VITALS: BP 125/79; PULSE 95; RESP 26; TEMP 36.7; O2SAT 100
[2024-08-24] MEDS: 0.9% Normal Saline (1000mL) 1,000 ML 999 ML IV (11:26)
--- NOTE | 2024-08-24 11:40 | CT_ITS ---
PROCEDURE: ABDOMEN/PELVIS WITHOUT CONT 08/24/2024 REASON FOR EXAM: LEFT FLANK PAIN, HX OF 6 MM STONE TECHNIQUE: ABDOMEN/PELVIS WITHOUT CONT Noncontrast technique limits evaluation of the abdominal and pelvic viscera. Coronal and Sagittal reconstruction series were provided. One or more dose reduction techniques were used (e.g., Automated exposure control, adjustment of the mA and/or kV according to patient size, use of iterative reconstruction technique). RADIATION DOSE SUMMARY: CTDlvol: 7.04 mGy DLP: 357.03 mGycm COMPARISON: Prior study dated June 27, 2024. FINDINGS: Lung bases: Lung bases are clear. Liver: Normal size. No obvious mass. Gallbladder: No evidence of gallstones. Spleen: Normal size. Pancreas: Normal size. No surrounding inflammation. Adrenals: Unremarkable Kidneys: 2.5 mm non obstructive calculus in the lower pole calyx of the left kidney. Punctate calculus in the lower pole calyx of the right kidney. No evidence of hydronephrosis. Bladder: Unremarkable. Reproductive Organs: Prior hysterectomy. Adnexal regions are unremarkable. Status post right oophorectomy. Bowel: Unremarkable Appendix: Unremarkable Lymph nodes: Unremarkable. Vasculature: The abdominal aorta and IVC contours are normal. Noncontrast technique limits evaluation. Peritoneum / Retroperitoneum: Unremarkable Bones: Prior anterior fusion at the L5-S1 level. CT/Abdomen/Pelvis without Cont IMPRESSION: 2.5 mm nonobstructive calculus in the lower pole calyx of the left kidney. No evidence of obstructive uropathy at this time. Reading Location: [place] [id number]
--- NOTE | 2024-08-24 11:42 | EX.ED.DYSGE1 ---
HPI History of Present Illness Chief Complaint: Flank Pain Narrative Narrative: Patient is a 38-year-old female with past medical history of GERD, asthma, previous kidney stones as required lithotripsy, IBS, hypoglycemia, depression, stress-induced seizure, hypertension, recent spinal fusion back in May L4-L5 who presents to the emergency department chief complaint of left flank pain. Patient notes that she was recently diagnosed last week at [facility] with a left-sided kidney stone measuring 6 mm nonobstructing and was sent home with [facility]. She states that she was seeing her kidney doctor at that point time and was closer for her to go there as opposed to here in the emergency department. Patient states that she lives in [place] and follows with urologist Dr. Potter and she states that she called the office however states that they were not taking appointments until September as they are transitioning to [place]. [facility] Medical History History of renal disease Gastric reflux Asthma PONV (postoperative nausea and vomiting) Leg cramps History of ventricular septal defect Vomiting Seizure BPPV (benign paroxysmal positional vertigo) Difficult intravenous access Non-smoker Dysautonomia-like disorder Nephrolithiasis History of echocardiogram Wears glasses Anemia Easy bruising Restless legs Back pain Seizures Dietary restriction History of IBS Shortness of breath on exertion History of edema History of irregular heartbeat Hypoglycemia Anxiety Depression Migraines Kidney disease Hypertension Home Medications ?Medication ?Instructions ?Recorded ?Last Taken ?Type albuterol sulfate 90 mcg/actuation 1 - 2 puff inhalation Q6H PRN PRN 03/22/13 05/24/14 08:49 History aerosol inhaler (Ventolin HFA) Asthma trazodone 150 mg PO/SL QHS 12/31/20 04/17/24 History diphenhydramine 25 1 tab PO QHS 10/22/21 04/17/24 History mg-acetaminophen 500 mg tablet (Tylenol PM Extra Strength) spironolactone 25 mg tablet 25 mg PO QDAY 07/01/23 04/17/24 History hydrochlorothiazide 12.5 mg capsule 12.5 mg PO QDAY 10/05/23 04/17/24 History potassium citrate 10 mEq (1,080 10 meq PO TID 10/05/23 04/17/24 History mg) tablet,extended release vortioxetine 10 mg tablet 10 mg PO QDAY 10/05/23 04/17/24 History (Trintellix) ondansetron 4 mg disintegrating 4 mg PO Q8H PRN PRN Nausea #10 tabs 12/29/23 04/17/24 Rx tablet tizanidine 2 mg tablet 8 mg PO TID PRN PRN muscle 02/04/24 04/17/24 History spasticity pantoprazole 40 mg tablet,delayed 40 mg PO BID N/V, Gastritis #60 02/25/24 04/18/24 Rx release tabs metoclopramide HCl 10 mg tablet 10 mg PO 4X/DAY PRN nausea and 03/10/24 04/10/24 Rx (Reglan) vomiting #28 tabs buspirone 5 mg tablet 5 mg PO TID PRN anxiety 04/04/24 04/16/24 History ciprofloxacin HCl 500 mg tablet 500 mg PO BID 5 days #10 tabs 08/24/24 Unknown Rx ondansetron 4 mg disintegrating 4 mg PO Q6H PRN nausea and 08/24/24 Unknown Rx tablet vomiting #20 tabs oxycodone 5 mg capsule 5 mg PO Q6H PRN pain 2 days #8 caps 08/24/24 Unknown Rx Allergy/AdvReac Type Severity Reaction Status Date / Time amoxicillin Allergy Severe hives Verified 08/24/24 11:16 baclofen Allergy Severe incontinenc Verified 08/24/24 11:16 e codeine Allergy Hives Verified 08/24/24 11:16 metronidazole (From Flagyl) Allergy Shortness Verified 08/24/24 11:16 of breath morphine Allergy Hives Verified 08/24/24 11:16 shellfish derived Allergy Angioedema Verified 08/24/24 11:16 topiramate (From Topamax) Allergy Other Verified 08/24/24 11:16 tramadol AdvReac Severe seizures Verified 08/24/24 11:16 adhesive AdvReac Rash Verified 08/24/24 11:16 NSAIDS (Non-Steroidal AdvReac PT UNSURE Verified 08/24/24 11:16 Anti-Inflamma OF REACTION Family History Father No cardiac disease Mother No cardiac disease Other Arthritis Asthma Blood clot in vein Bowel disease Breast cancer CVA (cerebral vascular accident) Cervical cancer Depression Diabetes High cholesterol Hypertension Seizures Suicidal ideation Surgical History History of spinal fusion Hx of dilation and curettage History of radiofrequency ablation (RFA) of nerve of lumbar spine H/O: hysterectomy Hx of laparoscopy S/P removal of right ovary S/P tonsillectomy S/P breast lumpectomy Previous section Social History household members: spouse Smoking Status: Never smoker alcohol intake: current alcohol intake frequency: holidays/special occasions only substance use type: does not use what type of physical activity do you participate in: none ROS ROS ED ROS Narrative Constitutional: Complains of sweating denies any fevers denies headaches Cardiovascular: Denies chest pain Respiratory: Denies shortness of breath Abdomen: Denies abdominal pain vomiting diarrhea : Complains of left flank pain and kidney stone as noted above. States that she started peeing blood recently. Patient notes that she has been straining her urine religiously and notes that she has not passed the stone yet Neurological: Denies any numbness, wheeze, tingling Musculoskeletal: Complains of left flank pain as noted above Skin: Denies any rashes or lesions EXAM Physical Exam Narrative Exam Narrative: General: Patient was lying in bed rest comfortably did appear to be uncomfortable secondary to her pain Head: Atraumatic, normocephalic Eyes: PERRL bilaterally, EOMI blood, no conjunctival injection noted Neck: Soft, supple, trachea midline Cardiovascular: Regular rate and rhythm Respiratory: Clear to auscultation bilaterally Abdomen: Soft, nondistended, tender to palpation Extremities: +5/5 strength noted in the bilateral upper and lower extremities Neurological: Patient follow commands and that she was at [facility] years 2024 Skin: Warm, dry contact no rashes or lesions noted Const Vital Signs: 08/24/24 11:13 08/24/24 11:16 08/24/24 12:12 Temperature 98.1 F 98.1 F Temperature Source Oral Oral Pulse Rate 95 95 88 Respiratory Rate 26 H 26 H 18 Blood Pressure 125/79 H 125/79 H 113/71 Blood Pressure Mean 94 94 85 Pulse Ox 100 100 98 Oxygen Delivery Method Room Air Room Air Room Air 08/24/24 12:16 08/24/24 13:00 Temperature 98.3 F Temperature Source Oral Pulse Rate 88 89 Respiratory Rate 18 16 Blood Pressure 113/71 113/79 Blood Pressure Mean 85 90 Pulse Ox 98 99 Oxygen Delivery Method Room Air MDM MDM MDM Narrative Medical decision making narrative: Patient is a 38-year-old female who presents to the emergency department with a chief complaint of flank pain and concern for her kidney stone worsening. On the differential diagnosis includes but not limited to urolithiasis, obstructing stone, UTI, pyelonephritis, acute kidney injury. Once workup is obtained reviewed she will be reevaluated. Patient given IV fluids Zofran and fentanyl. Patient CBC was reviewed and showed no evidence leukocytosis white blood count was 7.3, he was 11.4, platelet count of 181. Patient sodium was 139, potassium normal at 4.1, creatinine was 0.92. Patient's AST and ALT are 25 and 13 respectively with a normal total bilirubin 0.26. Patient lipase was 31. test negative, urinalysis showed 25 occult blood negative nitrites negative leukocyte esterase 0-5 white cells with 2+ bacteria this was sent for culture. Patient's CT abdomen pelvis without contrast reviewed showed 2.5 mm nonobstructive calculus in the left lower pole of the kidney no evidence of obstructive uropathy at this point in time. Did discuss results with the patient and patient would like to go home at this point in time. She will be given prescriptions for Zofran, oxycodone as she states that she tolerated this in the past, was advised to continue Flomax, that she already has at home,ciprofloxacin . She was advised to use Tylenol for mild to moderate pain. She will be given referral to [facility] as her urologist does not have any availability to see her for the foreseeable future she stated. She is encouraged return with any other concerns or symptoms. All question concerns answered she was discharged home in stable condition peer Lab Data Labs: Laboratory Results - last 24 hr 08/24/24 08/24/24 11:50 12:05 WBC 7.3 RBC 3.76 L Hgb 11.4 L Hct 35.1 L MCV 93.4 MCH 30.3 MCHC 32.5 RDW Std Deviation 44.8 H RDW Coeff of [place] 13.2 Plt Count 181 MPV 10.8 Immature Gran % (Auto) 0.400 Neut % (Auto) 61.7 Lymph % (Auto) 29.7 [place] % (Auto) 7.0 Eos % (Auto) 0.8 Baso % (Auto) 0.4 Absolute Neuts (auto) 4.5 Absolute Lymphs (auto) 2.16 Nucleated RBC % 0 Sodium 139 Potassium 4.1 Chloride 107 Carbon Dioxide 20.6 L Anion Gap 12 BUN 15 Creatinine 0.92 Estim Creat Clear Calc 80.92 Est GFR (MDRD) Non-Af 82 BUN/Creatinine Ratio 16.5 Glucose 92 Calcium 9.3 Total Bilirubin 0.26 AST 25 ALT 13 Alkaline Phosphatase 71 Total Protein 7.0 Albumin 4.1 Globulin 2.9 Albumin/Globulin Ratio 1.4 Lipase 31 Serum , Qual NEGATIVE Urine Color Yellow Urine Clarity Sl. Cloudy Urine pH 6.5 Ur Specific [place] 1.010 Urine Protein 30 H Urine Glucose (UA) Normal Urine Ketones 5 H Urine Occult Blood 25 H Urine Nitrite Negative Urine Bilirubin Negative Urine Urobilinogen Normal Ur Leukocyte Esterase Negative Urine RBC 5-10 SEEN Urine WBC 0-5 SEEN Ur Squamous Epith Cells 5-10 SEEN Urine Bacteria 2+ Urine Mucus 0 SEEN Radiography Diagnostic Testing: Clinical Impression(s) from Imaging Studies Abdomen/Pelvis CT 08/24/24 11:40 IMPRESSION: 2.5 mm nonobstructive calculus in the lower pole calyx of the left kidney. No evidence of obstructive uropathy at this time. Reading Location: [place] [id number] Discharge Plan Triage Chief Complaint: Flank Pain ED Provider: Guillermo Gilliland Dx/Rx/DC Orders Clinical Impression: Nephrolithiasis, Flank pain Prescriptions: New ondansetron 4 mg tablet,disintegrating 4 mg PO Q6H PRN (Reason: nausea and vomiting) Qty: 20 0RF oxycodone 5 mg capsule 5 mg PO Q6H PRN (Reason: pain) 2 Days Qty: 8 0RF ciprofloxacin HCl 500 mg tablet 500 mg PO BID 5 Days Qty: 10 0RF No Action spironolactone 25 mg tablet 25 mg PO QDAY tizanidine 2 mg tablet 8 mg PO TID PRN PRN (Reason: muscle spasticity) hydrochlorothiazide 12.5 mg capsule 12.5 mg PO QDAY potassium citrate 10 mEq (1,080 mg) tablet extended release 10 meq PO TID Trintellix 10 mg tablet 10 mg PO QDAY pantoprazole 40 mg tablet,delayed release (DR/EC) 40 mg PO BID Qty: 60 1RF Rx Instructions: 40 mg orally once daily 30 minutes prior to breakfast and dinner albuterol sulfate [Ventolin HFA] 1 INHALER inhaler 1 - 2 puff inhalation Q6H PRN PRN (Reason: Asthma) trazodone 150 mg PO/SL QHS diphenhydramine-acetaminophen [Tylenol PM Extra Strength] 25-500 mg Tablet 1 tab PO QHS Rx Instructions: administer while awake buspirone 5 mg tablet 5 mg PO TID PRN (Reason: anxiety) ondansetron 4 mg tablet,disintegrating 4 mg PO Q8H PRN PRN (Reason: Nausea) Qty: 10 0RF metoclopramide HCl [Reglan] 10 mg tablet 10 mg PO 4X/DAY PRN (Reason: nausea and vomiting) Qty: 28 0RF Primary Care Provider: Winsome Cuevas Referrals: Winsome Cuevas, [facility] [Primary Care Provider] - Activity Restrictions/Additional Instructions: Follow-up with [facility] number [phone]. Return with worsening symptoms or any concerns. Take antibiotics as prescribed. Print Language: Sami Disposition Disposition: Home, Self Care
[2024-08-24] MEDS: fentaNYL 100 MCG/2 ML Ampul 50 MCG IV (12:02)
[2024-08-24 12:11] LABS: Hematocrit 35.1 % (37-47); Hemoglobin 11.4 g/dL (12.0-15.0); Immature Granulocytes Count 0.030 X10^3/uL (0.0-0.0); Mean Corp Hgb Conc 32.5 g/dL (32-36); Mean Corpuscular Volume 93.4 fL (81-99); Mean Platelet Vol. 10.8 fl (6.2-12.0); NRBC Flagged by Analyzer 0 % (0-5); Platelet Count 181 K/mm3 (150-450); RBC Distribution Width CV 13.2 % (11.6-14.6); RBC Distribution Width SD 44.8 fl (35.1-43.9); Red Blood Count 3.76 M/mm3 (4.2-5.4); White Blood Count 7.3 K/mm3 (4.4-11.0)
[2024-08-24 12:12] VITALS: BP 113/71; PULSE 88; RESP 18; O2SAT 98
[2024-08-24 12:12] LABS: Mucous, Urine 0 SEEN /hpf (<or=2+)
[2024-08-24 12:13] LABS: Color, Urine Yellow (Yellow); Glucose, Dipstick Normal (Normal); Ketone-Dipstick 5 mg/dl (Negative); Leukocyte Esterase-Dipstick Negative /ul (Negative); Nitrite-Dipstick Negative (Negative); Occult Blood-Urine 25 /ul (Negative); Protein-Dipstick 30 mg/dl (Negative); Specific Gravity, Urine 1.010 (1.002-1.030); Urine Bilirubin Dipstick Negative (Negative)
[2024-08-24 12:16] VITALS: BP 113/71; PULSE 88; RESP 18; TEMP 36.8; O2SAT 98
[2024-08-24 12:28] LABS: Internal QC Validated? YES +Cl - CLEAR BKGD; Pregnancy, Serum, hCG Quali. NEGATIVE Negative; Record Kit Lot#, Serum Preg. 0000947241
[2024-08-24 12:34] LABS: Lipase 31 U/L (13-75)
[2024-08-24 12:37] LABS: AST(SGOT) 25 U/L (<=31); Alanine Aminotransfer ALT/SGPT 13 U/L (<=34); Albumin, Serum 4.1 g/dL (3.5-5.0); Alkaline Phosphatase 71 U/L (35-104); Anion Gap 12 (5-15); BUN 15 mg/dL (4-19); BUN/Creat Ratio 16.5 RATIO (10-20); Calcium,Total 9.3 mg/dL (7.6-11.0); Carbon Dioxide 20.6 mmol/L (21.0-32.0); Chloride 107 mmol/L (98-108); Estimated Creatinine Clearance 80.92 ml/min (50-250); Globulin 2.9 g/dL (2.2-4.2); Glucose 92 mg/dL (70-99); Potassium 4.1 mmol/L (3.3-5.1)
[2024-08-24 12:49] LABS: Red Blood Cells-Urine 5-10 SEEN /hpf (0-5)
[2024-08-24 12:50] LABS: Squamous Epithelial Cells - UA 5-10 SEEN /hpf (5-10)
[2024-08-24 13:00] VITALS: BP 113/79; PULSE 89; RESP 16; O2SAT 99
[2024-08-24 13:54] VITALS: BP 113/79; PULSE 89; RESP 16; TEMP 37; O2SAT 99
== END 2024-08-24 13:55 | disposition home or self-care (01) ==
PROVIDERS: Emergency Provider Emergency Medicine; PCP Nurse Practitioner Family; Visit Provider Emergency Medicine
DX: N20.0 Calculus of kidney (principal); I10 Essential (primary) hypertension; Z90.710 Acquired absence of both cervix and uterus; Z98.1 Arthrodesis status; K21.9 Gastro-esophageal reflux disease without esophagitis
CPT/HCPCS: 74176; 80053; 81001; 83690; 84703; 85025; 96374; 96375; 99285; J2405

== ENCOUNTER 2024-10-25 22:09 | Emergency (ER) | payer BC, SELFPAY ==
[2024-10-25 22:12] VITALS: BP 102/67; BP 123/84; PULSE 87; PULSE 91; RESP 16; RESP 18; TEMP 36.5; O2SAT 100; BMI 27.3
--- NOTE | 2024-10-25 22:36 | CT_ITS ---
PROCEDURE: CT BRAIN/HEAD WITHOUT CONTRAST 10/25/2024 REASON FOR EXAM: HEADACHE STATUS POST TRAUMA AND SEIZURE TECHNIQUE: Procedure Code: CTBR Modality: CT Procedure: BRAIN/HEAD WITHOUT CONTRAST Coronal and Sagittal reconstruction series were provided. One or more dose reduction techniques were used (e.g., Automated exposure control, adjustment of the mA and/or kV according to patient size, use of iterative reconstruction technique. RADIATION DOSE SUMMARY: CTDlvol: 44.99 mGy DLP: 779.24 mGycm COMPARISON: 03/10/2024 FINDINGS: No acute intracranial hemorrhage, extra-axial collection, mass effect or evidence of acute infarct. Ventricles and subarachnoid spaces are normal in size. Orbital contents are unremarkable. Intact skull base and calvarium. Clear paranasal sinuses and mastoid air cells. CT/Brain/Head without Contrast IMPRESSION: No acute intracranial abnormality. Reading Location: [facility]
[2024-10-25 23:05] LABS: Hematocrit 36.2 % (37-47); Hemoglobin 11.7 g/dL (12.0-15.0); Immature Granulocytes Count 0.020 X10^3/uL (0.0-0.0); Mean Corp Hgb Conc 32.3 g/dL (32-36); Mean Corpuscular Volume 92.3 fL (81-99); Mean Platelet Vol. 10.1 fl (6.2-12.0); NRBC Flagged by Analyzer 0 % (0-5); Platelet Count 211 K/mm3 (150-450); RBC Distribution Width CV 12.6 % (11.6-14.6); RBC Distribution Width SD 42.5 fl (35.1-43.9); Red Blood Count 3.92 M/mm3 (4.2-5.4); White Blood Count 8.3 K/mm3 (4.4-11.0)
[2024-10-25 23:26] LABS: Anion Gap 15 (5-15); BUN 10 mg/dL (4-19); BUN/Creat Ratio 10.1 RATIO (10-20); Calcium,Total 9.6 mg/dL (7.6-11.0); Carbon Dioxide 22.3 mmol/L (21.0-32.0); Chloride 104 mmol/L (98-108); Estimated Creatinine Clearance 76.66 ml/min (50-250); Glucose 87 mg/dL (70-99); Potassium 3.8 mmol/L (3.3-5.1)
[2024-10-26 00:10] VITALS: BP 98/68; PULSE 91; RESP 12; O2SAT 100
--- OUTSIDE RECORDS SUMMARY | 2024-10-26 00:17 | XMS RPT_ITS | CCD ---
Author Organization [facility] Inform ion [facility] Care Team Providers Care Construction Tech Name Role Phone Lorin Maki Unavailable [phone] JENNIFER CROW Unavailable Unavailable JENNIFER CROW Unavailable Unavailable LORIN MAKI Unavailable Unavailable SARABJIT EVANS Unavailable Unavailable SARAI RANDOLPH Unavailable Unavailable Home Duran Unavailable Unavailabl e Home Duran Unavailable Unavailabl e JENNIFER CROW Unavailable Unavailable JENNIFER CROW Unavailable Unavailable UNKNOWN, PROVIDER Unavailable Unavailable ANDREZ PAYTON Unavailable Unavailable YVES JAIME Admitting Unavailab JERRY Waller Referring Unavailable LORIN MAKI Primary Care Unavailable RADHA MATHEW Attending Unavailabl e Benitez [place] Unavailable Unavailable Annalisa Baum Unavailable Unavailable Unknown, Referring Provider Unavailable Unav ailable Quinn, Sam U Unavailable Unavailable Moises Quintero Unavailable Unavailable Oz Paytonine A Unavailable Unavailab Roxie Nicole Unavailable Unavailable Promise Lam Unavailable Unavailable Mesha Garcia Unavailable Unavailable WINSOME CUEVAS Primary Care Unavailable MARVIN DHALIWAL Attending Unavailable Lorin Maki Primary Care Provider Winsome Cuevas CNP Primary Care Provider Unknown, Pcp Unavailable Unavailable [place], Stevo I Unavailable Unavailable PRYKHODKO, SIRENAHARSHAD CHONGH Consulting U navailable WINSOME CUEVAS Primary Care Unavailable PATRICIA VEGA Admitting Unavailab SALEEM Velazquez Attending Unavailable [facility] BEDS AT [facility], GENER[facility] Consulting Un available Winsome Cuevas Unavailable Lino Eagle Unavailable Unavailable Unavailable Primary Care Provider Unavailabl e Mason CAR SWEEPER-DECK MECHANIC, Winsome H Primary Care Provider Dr. Angel Morales Attending Provider [phone] MASON, WINSOME Primary Care Provider Dr. Galen Mendoza Emergency Provider Dr. Abner Madden Admit Provider Dr. Abner Madden Other Provider Christiano HEALTH NAVIGATOR, HEALTH NAVIGATOR-C Olga Lidia Attending Provider Dr. Irineo Carter Attending Provider Dr. Irineo Carter Attending Provider Dr. Galen Mendoza Referring Provider Dr. Abner Madden Attending Provider Dr. Andrea Madrigal Other Provider Christiano HEALTH NAVIGATOR, HEALTH NAVIGATOR-C Olga Lidia Attending Provider Dr. Tigist Blanco Attending Provider Dr. Tigist Blanco Other Provider MASON, WINSOME Primary Care Provider MASON, WINSOME Referring Provider [phone] Mason CAR SWEEPER-DECK MECHANIC, Winsome H Primary Care Provider ALBERTO GREENFIELD Attending Unavailable Dr. Tigist Blanco Attending Provider Dr. Tigist Blanco Other Provider MASON, WINSOME Primary Care Provider MASON, WINSOME Referring Provider Dr. Saul Shanks Attending Provider MASON, WINSOME Primary Care Provider Unavailabl e MASON, WINSOME Referring Provider Unavailable MONTSERRAT, TIMMY Attending Unavailable MASON, WINSOME H Primary Care Unavailable SELF, SELF Referring Unavailable MASON, WINSOME H Primary Care Unavailable MASON, WINSOME H Attending Unavailable SELF, SELF Referring Unavailable MASON, WINSOME H Primary Care Unavailable MASON, WINSOME H Attending Unavailable SELF, SELF Referring Unavailable MASON, WINSOME H Primary Care Unavailable MASON, WINSOME H Attending Unavailable SELF, SELF Referring Unavailable MASON, WINSOME H Primary Care Unavailable LINDSAY PEARSON Attending Unavailable MASON, WINSOME H Referring Unavailable MASON, WINSOME H Primary Care Unavailable MONTSERRAT, TIMMY Attending Unavailable MONTSERRAT, TMIMY Referring Unavailable MASON, WINSOME H Primary Care Unavailable MONTSERRAT, TIMMY Attending Unavailable SELF, SELF Referring Unavailable MASON, WINSOME H Primary Care Unavailable SELF, SELF Referring Unavailable SELF, SELF Attending Unavailable MASON, WINSOME H Referring Unavailable MASON, WINSOME H Primary Care Unavailable MASON, WINSOME H Attending Unavailable MASON, WINSOME H Primary Care Unavailable MASON, WINSOME H Attending Unavailable MASON, WINSOME H Referring Unavailable MONTSERRAT, TIMMY Attending Unavailable MASON, WINSOME H Primary Care Unavailable MASON, WINSOME H Referring Unavailable MASON, WINSOME H Primary Care Unavailable SELF, SELF Referring Unavailable MASON, WINSOME H Attending Unavailable MASON, WINSOME H Primary Care Unavailable PUJA FRANK Admitting Unavailable PUJA FRANK Consulting Unavailable PUJA FRANK Attending Unavailable Mason CAR SWEEPER-DECK MECHANIC, Winsome H Primary Care Provider Mason DECK MECHANIC, Winsome Primary Care Provider [phone] Mason HEALTH NAVIGATOR, Winsome Primary Care Provider MASON, WINSOME Primary Care Unavailable JONOWMARY LOU Admitting Unavailable MASON, WINSOME Primary Care Unavailable MARY LOU MORRISON Attending Unavailable PUJA KNOX Attending Unavailable MASON, WINSOME Primary Care Unavailable Mason CAR SWEEPER-DECK MECHANIC, Winsome H Primary Care Provider [place] HEALTH NAVIGATOR, Winsome Primary Care Provider Mason CAR SWEEPER-DECK MECHANIC, Winsome [place] Primary Care Provi miryam MASON, WINSOME Primary Care Unavailable WILFRID CHAMPION Referring Unavailable MASON, WINSOME Primary Care Unavailable RADHA SANTIAGO Attending Unavailable MASON, WINSOME Primary Care Unavailable COLLEEN MAJOR Attending Unavail able MASON, WINSOME Primary Care Unavailable NEYHART ZAVALA, COLLEEN Referring Unavail able MASON, WINSOME Primary Care Unavailable CHARLOTTE GARCIA Referring Unavailable MASON, WINSOME Primary Care Unavailable BILLOW, MARY LOU Attending Unavailable MASON, WINSOME Primary Care Unavailable NEYHART ZAVALA, COLLEEN Referring Unavail able MASON, WINSOME Primary Care Unavailable NEYHART ZAVALA, COLLEEN Referring Unavail able BILLOW, MARY LOU Attending Unavailable MASON, WINSOME Primary Care Unavailable BILLOW, MARY LOU Referring Unavailable MASON, WINSOME Primary Care Unavailable NEYHART ZAVALA, COLLEEN Attending Unavail able MASON, WINSOME Primary Care Unavailable PLOTTS, WILFRID Referring Unavailable NEYHART ZAVALA, COLLEEN Referring Unavail able MASON, WINSOME Primary Care Unavailable MASON, WINSOME Primary Care Unavailable NEYHART ZAVALA, COLLEEN Attending Unavail able MASON, WINSOME Primary Care Unavailable NEYHART ZAVALA, COLLEEN Attending Unavail able MASON, WINSOME Primary Care Unavailable MASON, WINSOME Primary Care Unavailable NEYHART ZAVALA, COLLEEN Referring Unavail able MASON, WINSOME Primary Care Unavailable MABEL LESTER Referring Unavailable MASON, WINSOME Primary Care Unavailable BILLOW, MARY LOU Attending Unavailable MASON, WINSOME Primary Care Unavailable MASON, WNISOME Primary Care Unavailable KIMMY MIRZA Attending Unavailable MASON, WINSOME Primary Care Unavailable NEYHART ZAVALA, COLLEEN Referring Unavail able MASON, WINSOME Primary Care Unavailable MASON, WINSOME Primary Care Unavailable PLOTFARZANA, WILFRID Attending Unavailable AA UNKNOWN PCP, UNKNOWN Primary Care Unavaila ble ROSALBA COFFEY~[id number], ROSALBA MCCLOUD Attending Unavailable ROSALBA COFFEY~[id number], ROSALBA MCCLOUD Admitting Unavailable Mason DECK MECHANIC, Winsome Escobar Primary Care Provider Unavailable Primary Care Provider Unavailabl e MASON, WINSOME ESCOBAR Primary Care Unavailable LINO MONET Attending Unavailable MASON, WINSOME ESCOBAR Primary Care Unavailable REGAN SERRATO Attending Unavailable MASON, WINSOME ESCOBAR Primary Care Unavailable ASHLEY LUCERO, ALEXANDRU Attending Unavailable MASON, WINSOME ESCOBAR Primary Care Unavailable ASHLEY MOBLEY., ALEXANDRU Attending Unavailable ASHLEY JR., ALEXANDRU Attending Unavailable MASON, WINSOME ESCOBAR Primary Care Unavailable MASON, WINSOME ESCOBAR Primary Care Unavailable ASHLEY JR., ALEXANDRU Attending Unavailable [place] HEALTH NAVIGATOR, Winsome Primary Care Provider Zuleima Thomas Referring Unavailable [place], Winsome Primary Care Unavailable Moises Lopez Attending Unavailable Delta Hernandez Attending Unavailable Zuleima Thomas Referring Unavailable [place], Winsome Primary Care Unavailable Delta Hernandez Attending Unavailable AndrealZuleima Referring Unavailable Mason, Winsome Primary Care Unavailable Mason HEALTH NAVIGATOR-C, Winsome Primary Care Provider Rhys HEALTH NAVIGATOR-C, Cassy Attending Provider Rhys HEALTH NAVIGATOR-C, Cassy Referring Provider Dr. Home Grace DO Attending Provider Dr. Home Grace DO Emergency Provider [phone] Cheo Arevalo MD Attending Provider Dr. Cheo Arevalo MD Referring Provider [phone] Bubba Nevarez DO Referring Provider Dr. Bubba Nevarez DO Emergency Provider ZULEIMA THOMAS Attending Unavailable [facility] Consulting Unavailable MASON, WINSOME Primary Care Unavailable ZULEIMA THOMAS Admitting Unavailable ZULEIMA THOMAS Referring Unavailable MASON, WINSOME Primary Care Unavailable [place] CAR SWEEPER-DECK MECHANIC, Winsome Primary Care Provider Mason HEALTH NAVIGATOR-C, Winsome Primary Care Provider [phone] Dr. Bubba Nevarez DO Attending Provider Dr. Guillermo Gilliland DO Emergency Provider Zuleima Thomas Attending Unavailable Mason, Winsome Primary Care Unavailable Zuleima Thomas Attending Unavailable Moises Yanes Referring Unavailable [place], Winsome Primary Care Unavailable Zuleima Thomas Attending Unavailable Mason, Winsome Primary Care Unavailable Zuleima Thomas Attending Unavailable Moises Yanes Referring Unavailable [place], Winsome Primary Care Unavailable Zuleima Thomas Attending Unavailable Fitch, Moises S Referring Unavailable Mason, Winsome Primary Care Unavailable Jade Galvez Attending Unavailable Moises Yanes Referring Unavailable Mason, Winsome Primary Care Unavailable Zuleima Thomas J Attending Unavailable Moises Yanes S Referring Unavailable [place], Winsome Primary Care Unavailable RohZuleima delgado J Attending Unavailable Fitcmoe, Moises S Referring Unavailable [place], Winsome Primary Care Unavailable Zuleima Thomas J Attending Unavailable William, Zuleima J Referring Unavailable Mason, Winsome Primary Care Unavailable Rohl, Zuleima J Admitting Unavailable Rohl, Zuleima J Attending Unavailable Mason, Winsome Primary Care Unavailable Rohl, Zuleima J Admitting Unavailable Rohl, Zuleima J Attending Unavailable Mason, Winsome Primary Care Unavailable William, Zuleima J Attending Unavailable Farzana, Moises S Referring Unavailable [place], Winsome Primary Care Unavailable Rohl, Zuleima J Attending Unavailable Fitcmoe, Moises S Referring Unavailable Mason, Winsome Primary Care Unavailable William, Zuleima J Referring Unavailable [place], Winsome Primary Care Unavailable Chery Yanez Attending Unavailable Zuleima Thomas J Attending Unavailable William, Zuleima J Referring Unavailable [place], Winsome Primary Care Unavailable William, Zuleima J Attending Unavailable Moises Yanes S Referring Unavailable Mason, Winsome Primary Care Unavailable William, Zuleima J Attending Unavailable Farzana, Moises S Referring Unavailable Mason, Winsome Primary Care Unavailable Zuleima Thomas J Attending Unavailable Fitcmoe, Moises S Referring Unavailable [place], Winsome Primary Care Unavailable Zuleima Thomas J Attending Unavailable Fitcmoe, Moises S Referring Unavailable Mason, Winsome Primary Care Unavailable Zuleima Thomas J Attending Unavailable Zuleima Thomas J Referring Unavailable [place], Winsome Primary Care Unavailable Zuleima Thomas J Attending Unavailable FitcMoises rosa S Referring Unavailable Mason, Winsome Primary Care Unavailable William, Zuleima J Admitting Unavailable Delta Hernandez Attending Unavailable [place], Winsome Primary Care Unavailable William, Zuleima J Admitting Unavailable Rohsandy, Zuleima J Attending Unavailable Mason, Winsome Primary Care Unavailable William, Zuleima J Admitting Unavailable Jade Galvez Attending Unavailable Mason, Winsome Primary Care Unavailable William, Zuleima J Admitting Unavailable Delta Hernandez Attending Unavailable Mason, Winsome Primary Care Unavailable Zuleima Thomas J Attending Unavailable William, Zuleima J Referring Unavailable [place], Winsome Primary Care Unavailable Zuleima Thomas Attending Unavailable Zuleima Thomas Referring Unavailable [place], Winsome Primary Care Unavailable GARCIA, MESHA C Attending Unavailable MASON, WINSOME [facility] Primary Care Unavailable GARCIA, MESHA C Referring Unavailable MASON, WINSOME [facility] Primary Care Unavailable GARCIA, MESHA C Attending Unavailable MASON, WINSOME [facility] Primary Care Unavailable ZULEIMA THOMAS Referring Unavailable MASON, WINSOME [facility] Primary Care Unavailable STEF MAKI Attending Unavailable MASON, WINSOME [facility] Primary Care Unavailable ROHLZULEIMA Referring Unavailable MASON, WINSOME [facility] Primary Care Unavailable STEF MAKI Attending Unavailable GARCIA, MESHA C Referring Unavailable MASON, WINSOME [facility] Primary Care Unavailable GARCIA, MESHA C Attending Unavailable MASON, WINSOME [facility] Primary Care Unavailable STEF MAKI Attending Unavailable GARCIA, MESHA C Referring Unavailable MASON, WINSOME [facility] Primary Care Unavailable IVELISSE GASTON Attending Unavailable MASON, WINSOME [facility] Primary Care Unavailable STEF MAKI Attending Unavailable IVELISSE GASTON Referring Unavailable MASON, WINSOME [facility] Primary Care Unavailable GARCIA, MESHA C Attending Unavailable MASON, WINSOME [facility] Primary Care Unavailable GARCIA, MESHA C Attending Unavailable MASON, WINSOME [facility] Primary Care Unavailable ZULEIMA THOMAS Referring Unavailable MASON, WINSOME [facility] Primary Care Unavailable Cassy Joiner Attending Unavailable Cassy Joiner Referring Unavailable Mason, Winsome Primary Care Unavailable uZleima Thomas Attending Unavailable Dotne Thomasald Referring Unavailable [place], Winsome Primary Care Unavailable Zuleima Thomas Attending Unavailable AndrealZuleima Referring Unavailable Mason, Winsome Primary Care Unavailable SaTl daly Attending Unavailable SailorsTl Referring Unavailable Mason, Winsome Primary Care Unavailable [place], Winsome Referring Unavailable [place], Winsome Primary Care Unavailable Friend, Bebeto Consulting Unavailable Friend, Bebeto Attending Unavailable Bruce Garcia Attending Unavailable Mason, Winsome Primary Care Unavailable Mason, Winsome Referring Unavailable RhysCassy morrow Attending Unavailable [place], Winsome Referring Unavailable Mason, Winsome Primary Care Unavailable Cassy Joiner Attending Unavailable Mason, Winsome Referring Unavailable Mason, Winsome Primary Care Unavailable Cassy Joiner Attending Unavailable Cassy Joiner Referring Unavailable [place], Winsome Primary Care Unavailable Home Grace Attending Unavailable Mason, Winsome Primary Care Unavailable GeriCamron daileyon Attending Unavailable Geri, Bubba Referring Unavailable [place], Winsome Primary Care Unavailable Guillermo Gilliland Attending Unavailable [place], Winsome Primary Care Unavailable Galen Mendoza Attending Unavailable [place], Winsome Primary Care Unavailable Cheo Arevalo Attending Unavailable Irina, Cheo Referring Unavailable [place], Winsome Primary Care Unavailable Mason, Winsome Referring Unavailable Bebeto York Attending Unavailable Cassy Joiner Referring Unavailable Cassy Joiner Attending Unavailable [place], Winsome Primary Care Unavailable Allergies Allergy Classification Reported Allergen(s) Allergy Type Date of Onset Reaction(s) Facility Anti-Epileptic Agents (2 sources) topiramate Drug Allergy 04-23-19 19 GI Upset [facility] Work Phone: Nitroimidazoles (antibiotic) (3 sources) metroNIDAZOLE Drug Allergy 07-04-19 17 Other: See Comments [facility] NSAIDs (1 source) NSAIDs Drug Allergy Other [facility] Comment on above: because of my kidne ys Opioid Agonists (5 sources) Codeine Drug Allergy 09-21-19 10 Hives, Vomiting [facility] Shellfish (1 source) Shellfish Food Allergy Hives/Urticaria [facility] shrimp allergenic extract (1 source) shrimp allergenic extract Drug Allergy 10-26-19 16 [facility] Unclassified (2 sources) Tape - Adhesive, Bandaids, Paper Rash [facility] (20 sources) codeine; Translations: [CODEINE] Propensity to adverse reactions to drug 09-21-19 10 Hives, Nausea and Vomiting, Vomiting, Itching, GI Intolerance, Anaphylaxis [facility] (20 sources) metroNIDAZOLE; Translations: [METRONIDAZOLE] Propensity to adverse reactions to drug 07-04-19 17 Other (See Comments), Seizures, Other: See Comments, Other, Seizure, Shortness of breath [facility] Comment on above: SEIZURES (20 sources) shrimp allergenic extract; Translations: [SHRIMP] Propensity to adverse reactions to drug 10-26-19 16 Hives, Swelling [facility] (20 sources) topiramate; Translations: [TOPIRAMATE] Drug Allergy 04-23-19 19 Other (See Comments), GI Upset, Other, Rash, Seizure, GI Intolerance, Seizures [facility] Comment on above: slurred speech, unab le to control bladder (20 sources) traMADol; Translations: [TRAMADOL] Drug Allergy 01-14-20 18 Seizures, Seizure, Other (See Comments) [facility] (20 sources) ADHESIVE TAPE-SILICONES; Translations: [ADHESIVE TAPE-SILICONES] Propensity to adverse reactions to drug (disorder) 06-17-19 12 Rash [facility] (8 sources) metroNIDAZOLE Drug Allergy Seizure [facility] Work Phone: (13 sources) NSAIDs Allergy to drug (finding) 04-11-19 21 Other [facility] Work Phone: Comment on above: because of my kidne ys (4 sources) shellfish, unspecified; Translations: [Shellfish] Allergy to substance (finding) [facility] Repository (1 source) Shellfish Hives/Urticaria [facility] (1 source) Adhesive Tape Propensity to adverse reactions to drug 01-02-20 21 Rash [facility] (20 sources) Baclofen; Translations: [BACLOFEN] Drug Allergy 01-02-20 21 Incontinence, Other (See Comments), Other [facility] Work Phone: (1 source) Shellfish-Derive d Products Propensity to adverse reactions to drug 01-02-20 21 Anaphylaxis [facility] Work Phone: (20 sources) Shellfish Propensity to adverse reactions to drug 04-18-19 22 Angioedema (swelling) [facility] (20 sources) *Adhesive Tape Propensity to adverse reactions 06-17-19 12 [facility] (20 sources) Codeine And Related Propensity to adverse reactions to drug 10-13-19 14 [facility] (2 sources) NSAIDs Propensity to adverse reactions to drug 04-11-19 21 [facility] (20 sources) Adhesive agent; Translations: [ADHESIVE] Propensity to adverse reactions 06-17-19 12 [facility] (20 sources) Shellfish; Translations: [SHELLFISH DERIVED] Allergy to substance 10-24-19 21 Angioedema, Hives, Swelling [facility] (20 sources) NSAIDS (Non-Steroidal Anti-Inflamma; Translations: [NSAIDS (Non-Steroidal Anti-Inflamma] Propensity to adverse reactions 06-07-19 22 PT UNSURE OF REACTION [facility] Comment on above: STAGE II KIDNEY FAIL URE (20 sources) Dicyclomine; Translations: [DICYCLOMINE] Drug Allergy 07-20-19 22 Confusion, Unknown [facility] (20 sources) Morphine; Translations: [MORPHINE] Drug Allergy 10-08-19 22 Hives, Anaphylaxis [facility] (10 sources) Ondansetron Drug Allergy 10-26-19 22 Hives, Rash, Shortness of Breath [facility] (20 sources) Non-steroidal anti-inflammator y agent; Translations: [NSAIDS (NON-STEROIDAL ANTI-INFLAMMATOR Y DRUG)] Drug Intolerance 07-20-19 Other: See Comments, Unknown, Other, Other (See Comments) [facility] (20 sources) Baclofen Drug Allergy 10-08-19 22 Incontinence [facility] (20 sources) Non-steroidal anti-inflammator y agent Propensity to adverse reactions to drug 04-11-19 21 [facility] (20 sources) Shrimp product Propensity to adverse reactions to drug 10-26-19 16 Hives, Swelling [facility] (20 sources) Shellfish; Translations: [SHELLFISH CONTAINING PRODUCTS] Drug Allergy 04-18-19 22 Swelling, Hives [facility] Work Phone: (1 source) Baclofen Drug Allergy [facility] (1 source) Codeine Drug Allergy [facility] (1 source) Dicyclomine Drug Allergy [facility] (1 source) metroNIDAZOLE Drug Allergy [facility] (1 source) Morphine Drug Allergy [facility] (1 source) NSAIDs Drug allergy (disorder) [facility] Rep[facility] (5 sources) Doxycycline; Translations: [DOXYCYCLINE] Drug Allergy 10-21-19 24 Nausea and vomiting [facility] (19 sources) Amoxicillin; Translations: [AMOXICILLIN] Drug Allergy 05-19-19 Anaphylaxis, Hives [facility] Comment on above: tongue/throat tingli ng (1 source) Amoxicillin Drug Allergy 08-25-19 25 [facility] (1 source) Baclofen Drug Allergy 08-25-19 [facility] (1 source) Codeine Drug Allergy 08-25-19 25 [facility] (1 source) metroNIDAZOLE Drug Allergy 08-25-19 [facility] (1 source) Morphine Drug Allergy 08-25-19 [facility] Medications Current Medications Medication Drug Class(es) Dates Sig (Normalized) Sig (Original) acetaminophen 500 mg / diphenhydrAMINE hydrochloride 25 mg oral tablet (20 sources) Histamine-1 Receptor Antagonist Start: 02-28-2020 End: 06-24-2024 take 1 tablet by mouth once as needed for pain diphenhydrAMINE- acetaminophen (Tylenol PM) 25-500 mg per tablet Take 1 tablet by mouth as needed at bedtime (pain, sleep). 10/22/2021 Active Start: 02-28-2020 Diphenhydramin e-Acetaminophen (Tylenol Pm Extra Strength) 25-500 mg Tablet Active 1 {tbl} PO AT BEDTIME October 22, 2021 12:00am administer while awake take 1 tablet by dorothy th once daily at bedtime acetaminophen-diphenhydramine 500 mg-25 mg oral tablet ; 1 tab(s) orally once a day (at bedtime) Quantity: 0 Refills: 0 Ordered: 05-Jan-2019 Mesha Pulliam Status: Other Generic Substitution Allowed take 1 tablet by dorothy th once daily at bedtime Tylenol PM ; 1 tab(s) orally once a day (at bedtime) Quantity: 0 Refills: 0 Ordered: 18-Dec-2020 Deirdre Reyes Generic Substitution Allowed acetaminophen 325 mg / oxyCODONE hydrochloride 5 mg oral tablet (20 sources) Opioid Agonist Start: 06-24-2024 take 1-2 tablets by mouth every four to six hours as needed for pain, then take 6 tablets by mouth once daily as needed for pain oxyCODONE-acetaminophen (Percocet) 5-325 mg tablet TAKE 1 TO 2 TABLETS BY MOUTH EVERY 4 TO 6 HOURS NEEDED FOR PAIN. LIMIT OF 6 PER DAY 06/24/2024 Active Start: 12-17-2022 End: 07-15-2023 take 2 tablets by mouth once oxyCODONE-acetaminophen 5-325 MG per tablet Take 2 tablets by mouth one time only for 1 dose. 12/17/2022 07/15/2023 Discontinued Start: 12-15-2022 End: 07-01-2023 Oxycodone-Acetaminophen (Per cocet) 5-325 mg tablet Discontinued 1 {tbl} PO Q8H as needed for pain 10 3 0 December 15, 2022 July 01, 2023 11:12am Abnormal vaginal bleeding Pain in pelvis Abnormal uterine and vaginal bleeding, unspecified Pelvic and perineal pain Start: 12-03-2022 End: 12-06-2022 take 1 tablet by mouth every six hours as needed for pain oxyCODONE-acetaminophen (PERCOCET) 5-325 mg tablet Indications: Pelvic pain in female Take 1 tablet by mouth every 6 hours as needed for pain for up to 3 days. 5 tablet 0 12/03/2022 12/06/2022 Active Start: 10-20-2021 take 1 tablet by dorothy th every six hours Oxycodone-Acetaminophen (Percocet) 5-325 mg tablet Active 1 TABLET PO EVERY 6 HOURS 10 3 October 20, 2021 End: 12-03-2022 take 1 tablet by mouth every four hours as needed oxyCODONE-acetaminophen (PERCOCET) 5-325 mg tablet Take 1 tablet by mouth every 4 hours as needed. 0 12/03/2022 Discontinued Comment on above: Take 1 tablet by dorothy th every 4 hours as needed. Take 1 tablet by dorothy th every 6 hours as needed for pain for up to 3 days. Take 2 tablets by mo uth one time only for 1 dose. [id number] 200 actuat albuterol 0.09 mg/actuat metered dose inhaler (20 sources) beta2-Adrenergic Agonist Start: take 1 puff(s) by inhalation every four hours as needed for wheezing Albuterol 108 (90 Base) MCG/ACT Aero Soln inhaler Indications: Mild intermittent asthma without complication Inhale 1 puff every 4 hours as needed for Wheezing. 18 g 03/09/2023 Active Start: 07-13-2020 End: 07-17-2020 take 2.5 mg by inhalation four times daily 2.5 mg, Inhalation, 4 times daily (RT), First dose on Thu07/13/20 at 2100 Start: 07-13-2020 End: 07-13-2020 take 5 mg by inhalation every six hours as needed for wheezing albuterol (PROVENTIL) 2.5 mg /3 mL (0.083 %) nebulizer solution 5 mg Start: 02-28-2020 End: 07-18-2020 take 2.5 mg by inhalation every six hours Albuterol Sulfate Active 2.5 MG INHALATION EVERY 6 HOURS WHILE AWAKE February 28, 2020 1:00am Start: 05-18-2019 End: 03-23-2024 take 1 puff(s) by inhalation every four hours albuterol 90 mcg/actuation inhaler Inhale 1 puff every 4 hours if needed. 03/09/2023 03/23/2024 Discontinued (Therapy completed) Start: 04-22-2018 End: 04-26-2018 albuterol inhaler 2 puff Start: 03-22-2013 take 1 puff(s) by in halation every six hours as needed Albuterol Sulfate (Ventolin Hfa) 1 INHALER inhaler Active 1 - 2 PUFF INHALATION EVERY 6 HOURS NEEDED March 22, 2013 3:15pm Start: 03-22-2013 Albuterol Sulf ate (Ventolin Hfa) 1 INHALER inhaler Active 1 - 2 NMA INHALATION EVERY 6 HOURS NEEDED as needed for Asthma March 22, 2013 1:00am Start: 03-22-2013 take 1 puff(s) by in halation every six hours as needed Albuterol Sulfate (Ventolin Hfa) 1 INHALER inhaler Active 1 - 2 PUFF INHALATION EVERY 6 HOURS NEEDED March 22, 2013 12:00am Start: 03-22-2013 take 1 puff(s) by in halation every six hours as needed Albuterol Sulfate (Ventolin Hfa) 1 INHALER inhaler Active 1 - 2 PUFF INHALATION EVERY 6 HOURS NEEDED March 22, 2013 1:00am End: 03-23-2024 take 2.5 mg by inhalation every six hours as needed for wheezing albuterol (PROVENTIL) 2.5 mg /3 mL (0.083 %) nebulizer solution Take 3 mL (2.5 mg total) by nebulization every 6 (six) hours as needed for wheezing . Active take 1 puff(s) by in halation every six hours as needed for wheezing albuterol sulfate HFA (VENTOLIN HFA) 108 (90 Base) MCG/ACT inhaler Inhale 1 puff into the lungs every 6 hours as needed for Wheezing 0 Active take 1 puff(s) by in halation every four hours as needed Ventolin HFA 90 mcg/inh inhalation aerosol ; 1 puff(s) inhaled every 4 hours, As Needed Quantity: 0 Refills: 0 Ordered: 05-Jan-2019 Mesha Pulliam Status: Other Generic Substitution Allowed Comment on above: Inhale 1 Puff as ins tructed every 4 hours as needed. albuterol 0.833 mg/ml / ipratropium bromide 0.167 mg/ml inhalation solution (4 sources) Anticholinergic, beta2-Adrenergic Agonist Start: 9 take 3 mL by inhalation every six hours ipratropium-albute rol 0.5-2.5 (3) MG/3ML nebulizer solution Indications: Viral URI with cough Inhale 3 ml (1 vial) via nebulizer every 6 hours 0 01/06/2019 Active Start: 01-06-2019 End: 02-04-2019 take 3 mL by inhalation every six hours ipratropium-albuterol 0.5 mg-2.5 mg/3 mLinhalation solution ; 3 milliliter(s) inhaled every 6 hours Quantity: 360 Refills: 0 Ordered: 06-Jan-2019 Tima Drew Start: 06-Jan-2019 End: 04-Feb-2019 Status: Other Generic Substitution Allowed baclofen 10 mg oral tablet (9 sources) gamma-Aminobutyric Acid-ergic Agonist Start: 07-18-2020 End: 08-17-2020 take 2 tablets by mouth every eight hours in the evening baclofen (LIORESAL) 10 MG tablet Take 2 (two) tablets (20 mg total) by mouth every 8 (eight) hours . 180 tablet 07/18/2020 1:16 PM EDT 07/18/2020 Active Start: 07-16-2020 End: 07-18-2020 baclofen (LIORESAL) tablet 2 0 mg take 1 tablet by dorothy th once daily in the morning as needed for pain baclofen 10 mg oral tablet ; 1 tab(s) orally once a day (in the morning), As Needed muscle pain Quantity: 0 Refills: 0 Ordered: 05-Jan-2019 Mesha Pulliam Status: Other Generic Substitution Allowed benzonatate 100 mg oral capsule (4 sources) Non-narcotic Antitussive Start: 07-09-2021 benzonatate (TESSALON) 100 MG capsule 07/09/2021 Active 60 actuat budesonide 0.16 mg/actuat / formoterol fumarate 0.0045 mg/actuat metered dose inhaler (2 sources) Corticosteroid, beta2-Adrenergic Agonist Start: 09-10-2020 take 2 puff(s) by inhalation every twelve hours budesonide-formot franki 160-4.5 mcg/puff Aerosol inhaler Indications: Mild intermittent asthma without complication Inhale 2 puffs every 12 hours. 10.2 g 5 09/10/2020 Active busPIRone hydrochloride 7.5 mg oral tablet (9 sources) Start: 04-04-2024 take 1 tablet by mouth three times daily as needed for anxiety Buspirone 5 mg tablet Active 5 mg PO THREE TIMES A DAY as needed for anxiety April 04, 2024 1:00am Start: 03-30-2024 End: 08-03-2024 take 1 tablet by mouth three times daily as needed for anxiety busPIRone HCl 7.5 MG tablet Indications: Generalized anxiety disorder Take 1 tablet by mouth 3 times daily as needed for Anxiety. 90 tablet 08/03/2024 Active cephalexin 500 mg oral capsule (3 sources) Cephalosporin Antibacterial Start: 10-21-2023 End: 10-28-2023 take 1 capsule by mouth four times daily cephALEXin (KEFLEX) 500 MG capsule Take 1 (one) capsule (500 mg total) by mouth 4 (four) times a day for 7 days . 28 capsule 10/21/2023 10/28/2023 Active Start: 07-01-2023 End: 10-05-2023 take 1 capsule by mouth three times daily Cephalexin 500 mg capsule Discontinued 500 mg PO THREE TIMES A DAY 0 July 01, 2023 12:00am October 05, 2023 7:06am ciprofloxacin 500 mg oral tablet (1 source) Quinolone Antimicrobial Start: 08-24-2024 take 1 tablet by mouth twice daily Ciprofloxacin Hcl 500 mg tablet Active 500 mg PO TWICE A DAY 10 5 0 August 24, 2024 12:00am Deblitane 0.35 mg oral tablet (2 sources) take 1 tablet by mouth once daily Deblitane 0.35 mg oral tablet ; 1 tab(s) orally once a day// Control Quantity: 0 Refills: 0 Ordered: 05-Jan-2019 Heraclio, Mesha Status: Other Generic Substitution Allowed dextromethorphan hb/doxylamine (VICKS NYQUIL COUGH ORAL) (2 sources) take 1 dose by mouth once daily dextromethorphan hb/doxylamine (VICKS NYQUIL COUGH ORAL) Take 1 Dose by mouth daily . 0 Active diazePAM 5 mg oral tablet (5 sources) Benzodiazepine Start: 10-08-2023 End: 11-30-2023 take 1 tablet by mouth once diazePAM (Valium) 5 mg tablet Indications: Spondylosis of lumbosacral region without myelopathy or radiculopathy , Chronic pain syndrome , Stage 2 chronic kidney disease Take 1 tablet (5 mg) by mouth 1 time for 1 dose. 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 120 capsule 07/18/2020 1:16 PM EDT 07/18/2020 Active Start: 11-01-2019 take 1 tablet by dorothy every six hours for muscle spasms dicyclomine 20 MG tablet Take 1 tablet by mouth every 6 hours. For abdominal spasms 30 tablet 0 11/01/2019 Active Start: 04-22-2018 End: 07-13-2020 take 10 mg by mouth four times daily as needed 10 mg, Oral, 4 times daily PRN, stomach, Starting Cristine 04/22/18 at 0951 Diphenhydramine-APAP, sleep, (TYLENOL PM EXTRA STRENGTH PO) (19 sources) take 500 mg by mouth every four hours as needed Diphenhydramine-APAP, sleep, (TYLENOL PM EXTRA STRENGTH PO) Indications: Calculus of kidney Take 500 mg by mouth every 4 hours as needed. Active take 500 mg by mouth every four hours as needed Diphenhydramine-APAP, sleep, (TYLENOL PM EXTRA STRENGTH PO) Indications: Calculus of kidney Take 500 mg by mouth every 4 hours as needed. 0 Active docusate sodium 100 mg oral capsule (8 sources) Start: 01-07-2021 take 1 capsule by mouth twice daily docusate sodium (COLACE) 100 MG capsule Take 1 capsule by mouth 2 times daily 40 capsule 0 01/07/2021 Active Start: 05-07-2020 End: 05-01-2021 docusate sodium (COLACE) cap leisa 100 mg Start: 04-22-2018 End: 04-26-2018 docusate sodium (COLACE) cap leisa 100 mg 0.4 ml enoxaparin sodium 100 mg/ml prefilled syringe (2 sources) Low Molecular Weight Heparin Start: 01-05-2021 inject 40 mg by subcutaneous injection once daily 40 mg, SubCUTAneous, DAILY, First dose on 01/05/21 at 2030, Start: 07-13-2020 End: 07-18-2020 inject 40 mg by subcutaneous injection once daily 40 mg, Subcutaneous, Daily, First dose on Thu07/13/20 at 2130 Administer in abdomen unless otherwise directed by prescriber. Notify physician if patient refuses. Indication: VTE Prophylaxis Ethinyl Estradiol / Ferrous fumarate / Norethindrone (20 sources) Estrogen Start: 12-03-2022 End: 11-04-2023 take 1 tablet by mouth once daily, then take 0.05 tablet by mouth once Norethin Yrn-Eth Estrad-FE (LOESTRIN FE 03/07) 1 mg-20 mcg (21)/75 mg (7) per tablet Take 1 tablet by mouth once daily. 84 tablet 3 12/03/2022 11/04/2023 Active Start: 04-22-2018 End: 04-26-2018 take 1 tablet by mouth once daily Oral, Nightly, First dose on Cristine 04/22/18 at 2100 Drug Name: Norethind-ETH Estrad Form: tablet Dose: 1 Dose Units: tablet Length of Therapy: Indefinite How soon needed? (normally 72 hrs needed to procure): 0-24 hrs Reason for Non-Formulary: patient has home med take 1 tablet by dorothy once daily norethindrone-e.estradiol-iron (LO LOESTRIN FE) 1 mg-10 mcg(24) /10 mcg (2) ORAL Tab Take 1 tablet by mouth once daily. 0 Active take 1 tablet by dorothy th once daily Microgestin FE /20 oral tablet ; 1 tab(s) orally once a day Quantity: 0 Refills: 0 Ordered: 02-Sep-2019 Aline Ricardo Status: Other Generic Substitution Allowed take 1 tablet by dorothy th once daily Microgestin FE 1/20 oral tablet ; 1 tab(s) orally once a day Quantity: 0 Refills: 0 Ordered: 02-Sep-2019 Aline Ricardo Generic Substitution Allowed Comment on above: Take 1 tablet by dorothy th once daily. ferrous sulfate 325 mg oral tablet (4 sources) Start: 01-08-2021 take 1 tablet by mouth once daily ferrous sulfate (IRON 325) 325 (65 Fe) MG tablet Take 1 tablet by mouth daily 30 tablet 0 01/08/2021 Active Start: 01-04-2021 End: 01-07-2021 ferrous sulfate (IRON 325) t ablet 325 mg fluconazole 150 mg oral tablet (3 sources) Azole Antifungal Start: 10-21-2023 End: 10-24-2023 take 1 tablet by mouth once daily fluconazole (DIFLUCAN) 150 MG tablet Take 1 (one) tablet (150 mg total) by mouth daily for 3 doses . 3 tablet 10/21/2023 10/24/2023 Active Start: 07-09-2022 End: 07-09-2022 take 1 tablet by mouth once Fluconazole (Diflucan) 150 MG tablet Indications: Vaginal candidiasis Take 1 tablet by mouth once for 1 dose. 1 tablet 0 07/09/2022 07/09/2022 Start: 11-19-2021 End: 12-09-2021 fluconazole (Diflucan) 150 M G tablet Indications: Vaginal palmira Take 1 table by mouth for one dose. If symptoms do not resolve, repeat 1 tablet again in 72 hours 2 tablet 0 11/19/2021 12/09/2021 Discontinued (Therapy completed) gabapentin 600 mg oral tablet (20 sources) Anti-epileptic Agent Start: 06-23-2024 End: 06-24-2024 take 900 mg by mouth three times daily 900 mg, oral, 3 times daily, First dose on Cristine 06/23/24 at 1400 Start: 06-01-2024 take 2 tablets by mo [facility] three times daily in the evening gabapentin (Neurontin) 600 mg tablet Indications: Lumbar radiculopathy Take 2 tablets (1,200 mg) by mouth 3 times a day. 180 tablet 2 09/26/2024 3:47 PM EDT 09/20/2024 Active Start: 04-26-2024 End: 07-25-2024 take 3 capsules by mouth three times daily gabapentin (NEURONTIN) 300 mg capsule Take 3 capsules (900 mg total) by mouth 3 (three) times a day. 05/30/2024 Active Start: 11-30-2023 End: 02-28-2024 take 3 capsules by mouth three times daily gabapentin (Neurontin) 300 mg capsule Indications: Spondylosis of lumbosacral region without myelopathy or radiculopathy Take 3 capsules (900 mg) by mouth 3 times a day. 270 capsule 2 11/30/2023 Active Start: 11-04-2023 End: 11-03-2024 take 2 capsules by mouth three times daily gabapentin (Neurontin) 300 mg capsule Indications: Spondylosis of lumbosacral region without myelopathy or radiculopathy Take 2 capsules (600 mg) by mouth 3 times a day. 180 capsule 1 11/04/2023 11/30/2023 Discontinued (Reorder) Start: 10-08-2023 End: 10-07-2024 take 1 capsule by mouth three times daily Gabapentin 300 MG capsule Take 1 capsule by mouth Three times a day. 10/08/2023 10/07/2024 Active Start: 07-18-2020 End: 10-08-2023 gabapentin (NEURONTIN) 100 M G capsule Indications: one to two pills nightly 400mg bid x 7 d then 00mg bid x 7 days then 300mg daily x 7 d then 200 mg daily x 7 d then 100mg x7 d 140 capsule 07/18/2020 Active Start: 07-16-2020 End: 07-18-2020 gabapentin (NEURONTIN) capsu le 400 mg Start: 07-13-2020 End: 07-16-2020 take 200 mg by mouth three times daily 200 mg, Oral, 3 times daily, First dose on Thu07/13/20 at 2100 Start: 05-30-2019 take 1 tablet by dorothy th three times daily Gabapentin 800 MG Oral Tablet TAKE 1 TABLET 3 TIMES DAILY. Quantity: 90 Refills: 5 Benitez Eubanks MD Start : 30-May-2019 Active Start: 11-19-2018 gabapentin 800 MG Tab Indications: Chronic right-sided low back pain without sciatica Take 300 mg by mouth 2 times daily. 1 11/19/2018 Active Start: 04-22-2018 End: 04-26-2018 take 300 mg by mouth three times daily 300 mg, Oral, 3 times daily, First dose on Cristine 04/22/18 at 1500 Start: 12-20-2016 End: 07-18-2020 take 1 capsule by mouth once daily gabapentin (NEURONTIN) 100 mg capsule Take 1 capsule by mouth once daily. 0 12/20/2016 Active Comment on above: Take 1 capsule by mo [facility] once daily. hydroCHLOROthiazide 25 mg oral tablet (20 sources) Thiazide Diuretic Start: 025 take 1 tablet by mouth once daily hydroCHLOROthiazide 25 MG tablet Take 1 tablet by mouth daily. 90 tablet 3 10/19/2024 Active Start: 09-30-2023 End: 10-19-2024 take 1 capsule by mouth once daily hydroCHLOROthiazide 12.5 MG capsule Take 1 capsule by mouth daily. 90 capsule 3 08/04/2024 10/19/2024 Discontinued Start: 04-23-2018 End: 04-26-2018 take 25 mg by mouth once daily 25 mg, Oral, Daily, First dose on 04/23/18 at 0900 HYDROmorphone (DILAUDID) injection 0.25 mg (1 source) Start: 01-05-2021 HYDROmorphone (DILAUDID) injection 0.25 mg ibuprofen 600 mg oral tablet (18 sources) Nonsteroidal Anti-inflammatory Drug Start: 01-07-2021 take 1 tablet by mouth every six hours ibuprofen (ADVIL;MOTRIN) 600 MG tablet Take 1 tablet by mouth every 6 hours 40 tablet 0 01/07/2021 Active Start: 01-05-2021 End: 07-13-2020 take 600 mg by mouth every six hours 600 mg, Oral, EVERY 6 HOURS, First dose on 01/05/21 at 1830 Do not crush or chew. take 1 tablet by dorothy th every six hours as needed ibuprofen (MOTRIN) 600 mg tablet Take 600 mg by mouth every 6 hours as needed. 0 Active Comment on above: Take 600 mg by mouth every 6 hours as needed. 1 ml ketorolac tromethamine 30 mg/ml injection (14 sources) Nonsteroidal Anti-inflammatory Drug, Cyclooxygenase Inhibitor Start: 12-18-2022 End: 12-18-2022 keTORolac 30 mg injection (Toradol) Start: 01-05-2021 End: 01-05-2021 inject 60 mg by intramuscular injection once 60 mg, IntraMUSCular, ONCE, On 01/05/21 at 0930, For 1 dose Start: 07-15-2020 End: 07-17-2020 take 15 mg intravenously every six hours as needed for pain ketorolac (TORADOL) injection 15 mg Start: 07-14-2020 End: 07-14-2020 ketorolac (TORADOL) injectio n 15 mg Start: 02-22-2020 take 1 tablet by dorothy th every six hours as needed ketorolac 10 MG tablet Take 1 tablet by mouth every 6 hours as needed for Mild Pain for up to 5 days. Do not take for more than 5 days. 15 tablet 0 02/22/2020 Active take 1 tablet by dorothy th every four hours as needed ketorolac 10 mg oral tablet ; 1 tab(s) orally every 4 hours, As Needed - for pain Quantity: 0 Refills: 0 Ordered: 05-Jan-2019 Mesha Pulliam Status: Other Generic Substitution Allowed take 1 tablet by dorothy th three times daily as needed for pain Toradol Oral 10 MG TABS TAKE 1 TABLET 3 TIMES DAILY NEEDED FOR PAIN. Refills: 0 Active lanolin 1000 mg/ml topical cream (1 source) Start: 01-05-2021 Topical, EVERY 1 HOUR PRN, Dry Skin, nipple discomfort, Starting on 01/05/21 at 1812, LORazepam 0.5 mg oral tablet (20 sources) Benzodiazepine Start: 06-06-2021 LORazepam (ATI VAN) 0.5 MG tablet Take by mouth . 06/06/2021 Active Start: 06-06-2021 End: 11-09-2022 take 1 tablet by mouth once daily as needed for anxiety Lorazepam 0.5 mg Tablet Discontinued 0.5 mg PO DAILY NEEDED as needed for Anxiety June 06, 2021 12:00am November 09, 2022 4:43pm Start: 01-09-2021 End: 08-23-2024 take 1 tablet by mouth twice daily as needed for anxiety LORazepam (Ativan) 0.5 MG tablet Indications: Generalized anxiety disorder Take 1 tablet by mouth 2 times daily as needed for Anxiety for up to 20 days. 14 tablet 08/03/2024 Active Start: 04-22-2018 End: 04-26-2018 LORazepam (ATIVAN) injection 2 mg Start: 08-27-2016 End: 07-13-2020 take 1 tablet by mouth every eight hours as needed LORazepam (ATIVAN) 0.5 MG tablet Take 1 (one) tablet (0.5 mg total) by mouth every 8 (eight) hours as needed for anxiety. 90 tablet 3 08/27/2016 07/13/2020 Discontinued magnesium oxide 250 mg oral tablet (2 sources) take 1 tablet by mouth once daily magnesium oxide 250 mg oral tablet ; 1 tab(s) orally once a day Quantity: 0 Refills: 0 Ordered: 05-Jan-2019 Mesha Pulliam Status: Other Generic Substitution Allowed methocarbamol 500 mg oral tablet (16 sources) Muscle Relaxant Start: End: take 1 tablet by mouth three times daily Methocarbamol 500 MG tablet Take 1 tablet by mouth Three times a day. 05/23/2024 Active Start: 01-20-2024 End: 04-04-2024 take 1 tablet by mouth three times daily Methocarbamol 500 mg tablet Discontinued 500 mg PO THREE TIMES A DAY February 04, 2024 1:00am April 04, 2024 10:16am methylPREDNISolone (6 sources) Corticosteroid Start: 05-18-2024 End: 06-01-2024 methylPREDNISolone (Medrol Dospak) 4 mg tablets Indications: Lumbar radiculopathy Follow schedule on package instructions 21 tablet 05/18/2024 06/01/2024 Discontinued (Therapy completed) Start: 05-18-2024 methylPREDNISo lone (Medrol Dospak) 4 mg tablets Indications: Lumbar radiculopathy Follow schedule on package instructions 21 tablet 05/18/2024 Active Start: 07-13-2020 End: 07-15-2020 methylPREDNISolone sod suc(P F) (SOLU-medrol) Injection 40 mg Start: 07-13-2020 End: 07-13-2020 methylPREDNISolone sod suc(P F) (SOLU-medrol) Injection 125 mg miSOPROStol 0.2 mg oral tablet (2 sources) Prostaglandin E1 Analog Start: 12-03-2022 End: 12-03-2022 miSOPROStol (CYTOTEC) 200 mcg tablet Indications: Retained products of conception after miscarriage Use 4 tablets vaginally one time only for 1 dose. 4 tablet 0 12/03/2022 12/03/2022 Active Comment on above: Use 4 tablets vagina lly one time only for 1 dose. mupirocin 0.02 mg/mg topical ointment (1 source) RNA Synthetase Inhibitor Antibacterial Start: 05-18-2024 End: 06-01-2024 mupirocin (BACTROBAN) 2 % ointment Apply topically 3 (three) times a day Apply to great toe for 14 days . 22 g 1 05/18/2024 06/01/2024 Active 1 ml nalbuphine hydrochloride 10 mg/ml injection (1 source) Opioid Agonist/Antagonist Start: 01-05-2021 nalbuphine (NUBAIN) injection 5 mg ondansetron 4 mg disintegrating oral tablet (20 sources) Serotonin-3 Receptor Antagonist Start: 08-24-2024 take 1 tablet by mouth every six hours as needed for nausea and vomiting Ondansetron 4 mg tablet,disintegra ting Active 4 mg PO EVERY 6 HOURS as needed for nausea and vomiting August 24, 2024 12:00am Start: 06-23-2024 End: 06-24-2024 take 4 mg intravenously every six hours as needed 4 mg, intravenous, Every 6 hours PRN, nausea, vomiting, Starting on Cristine 06/23/24 at 1033 Start: 03-30-2024 apply 1 tablet topic ally every four hours for vomiting ondansetron ODT (ZOFRAN-ODT) 8 mg disintegrating tablet Dissolve 1 tablet (8 mg total) on top of the tongue every 4 (four) hours if needed for vomiting. 03/30/2024 Active Start: 12-29-2023 take 1 tablet by dorothy th every eight hours as needed for nausea Ondansetron 4 mg tablet,disintegrating Active 4 mg PO EVERY 8 HOURS NEEDED as needed for Nausea December 29, 2023 1:00am Start: 12-11-2023 End: 12-11-2023 4 mg, intravenous, Once, On 12/11/23 at 0815, For 1 dose, Preprocedure, When administering via IV Push, administer over 3-5 minutes. Start: 07-15-2023 End: 03-30-2024 take 1 tablet by mouth every four hours as needed for nausea and nausea Ondansetron 8 MG Tab Dispersible tablet Indications: Nausea Take 1 tablet by mouth every 4 hours as needed for Nausea. Place on tongue 30 tablet 1 03/30/2024 Active Start: 06-10-2023 End: 06-10-2023 4 mg, Intravenous, ONCE, 1 d ose, On Thu06/10/23 at 1130 Start: 01-05-2021 4 mg, IntraVEN ous, EVERY 6 HOURS PRN, Nausea, Starting on 01/05/21 at 1812, Start: 07-14-2020 End: 07-18-2020 take 4 mg intravenously every four hours as needed for nausea and vomiting ondansetron (ZOFRAN) injection 4 mg Start: 07-13-2020 End: 07-13-2020 ondansetron (ZOFRAN) injecti on 4 mg Start: 04-22-2018 End: 04-26-2018 take 1 tablet by mouth every eight hours as needed ondansetron (ZOFRAN-ODT) disintegrating tablet 8 mg Start: 04-22-2018 End: 04-26-2018 take 4 mg intravenous route every six hours as needed ondansetron (ZOFRAN) injection 4 mg Start: 12-01-2015 End: 10-05-2023 take 1 tablet by mouth every eight hours as needed for nausea and vomiting Ondansetron 4 mg tablet,disintegrating Discontinued 4 mg PO Q8H as needed for nausea and vomiting 10 0 April 17, 2021 1:00am October 05, 2023 7:06am Start: 12-01-2015 End: 07-15-2023 take 1 tablet by mouth every four hours as needed Ondansetron 4 MG Tab Dispersible tablet Take 1 tablet by mouth every 4 hours as needed for Nausea. Place on tongue 10 tablet 06/10/2023 07/15/2023 Discontinued (Reorder) Start: 12-01-2015 End: 06-10-2023 take 1 tablet by mouth every six hours as needed ondansetron orally disintegrating (ZOFRAN ODT) 4 mg disintegrating tablet Take 1 tablet by mouth every 6 hours as needed for nausea/vomiting. 20 tablet 0 05/02/2022 Active End: 07-13-2020 take 2 tablets by mouth every six hours as needed ondansetron (ZOFRAN-ODT) 4 MG disintegrating tablet Dissolve 8 mg on top of tongue every 6 (six) hours as needed for nausea (under tongue) . 0 07/13/2020 Discontinued Comment on above: Take 1 tablet by dorothy th every 6 hours as needed for nausea/vomiting. oxyCODONE hydrochloride 5 mg oral capsule (20 sources) Opioid Agonist Start: 08-25-19 take 1 capsule by mouth every six hours as needed for pain Oxycodone 5 mg capsule Active 5 mg PO EVERY 6 HOURS as needed for pain 8 2 0 August 24, 2024 Flank pain Unspecified abdominal pain Start: 06-23-2024 End: 06-24-2024 oxyCODONE (ROXICODONE) immed iate release tablet 5 mg Start: 03-24-2023 End: 03-29-2023 take 1 tablet by mouth every six hours as needed for pain oxyCODONE IR (ROXICODONE) 5 mg immediate release tablet Indications: Acute post-operative pain Take 1 tablet by mouth every 6 hours as needed for pain for up to 5 days. 15 tablet 0 03/24/2023 03/29/2023 Active Start: 01-07-2021 End: 05-01-2021 take 1 tablet by mouth every four hours as needed for pain oxyCODONE 5 MG tablet Take 1 tablet by mouth every 4 hours as needed for Pain for up to 3 days. 0 01/07/2021 05/01/2021 Discontinued (Therapy completed) Start: 01-05-2021 oxyCODONE (HERMANN ICODONE) immediate release tablet 5 mg Start: 03-12-2020 End: 03-15-2020 take 1 tablet by mouth every six hours as needed for pain Oxycodone 5 MG tablet Discontinued 5 mg PO EVERY 6 HOURS NEEDED as needed for Pain Score 6-10 12 3 0 March 12, 2020 March 14, 2020 1:00am March 15, 2020 1:03am Other acute postprocedural pain Comment on above: Take 1 tablet by dorothy th every 6 hours as needed for pain for up to 5 days. pantoprazole 40 mg delayed release oral tablet (20 sources) Proton Pump Inhibitor Start: End: take 1 tablet by mouth once daily Pantoprazole [address] tablet DR Take 1 tablet by mouth daily. 03/17/2024 Active Start: 02-25-2024 take 1 tablet by dorothy th twice daily at dinner Pantoprazole 40 mg tablet,delayed release (DR/EC) Active 40 mg PO TWICE A DAY 60 February 25, 2024 9:50am N/V, Gastritis 40 mg orally once daily 30 minutes prior to breakfast and dinner Start: 02-04-2024 End: 02-25-2024 take 1 tablet by mouth once daily at breakfast Pantoprazole 40 mg tablet,delayed release (DR/EC) Discontinued 40 mg PO .COMPLEX 90 February 04, 2024 3:39pm February 05, 2024 11:47am 40 mg orally once daily 30 minutes prior to breakfast; Start: 01-06-2022 take 1 tablet by dorothy th once daily Pantoprazole (Protonix) 20 mg tablet,delayed release (DR/EC) Active 20 MG PO DAILY January 06, 2022 12:00am Start: 10-15-2021 take 40 mg by mouth once daily Pantoprazole Active 40 MG PO DAILY October 14, 2021 11:00pm Start: 09-02-2019 End: 10-01-2019 take 1 tablet by mouth once daily Protonix 40 mg oral delayed release tablet ; 1 tab(s) orally once a day Quantity: 30 Refills: 0 Ordered: 02-Sep-2019 Lynn Chon Start: 02-Sep-2019 End: 01-Oct-2019 Status: Other Generic Substitution Allowed Comments: It is very important that you take or use this exactly as directed. Do not skip doses or discontinue unless directed by your doctor.Obtain medical advice before taking any non-prescription drugs as some may affect the action of this medication.Swallow whole. Do not crush. Start: 04-23-2018 End: 04-26-2018 take 40 mg by mouth once daily 40 mg, Oral, Daily, Fir st dose on Thu04/23/18 at 0900 DO NOT CRUSH OR CHEW. Comment on above: It is very important that you take or use this exactly as directed. Do not skip doses or discontinue unless directed by your doctor.Obtain medical advice before taking any non-prescription drugs as some may affect the action of this medication.Swallow whole. Do not crush. potassium chloride 20 meq extended release oral tablet (14 sources) Start: 2 take 40 mEq by mouth once daily Potassium Chloride Active 40 MEQ PO DAILY October 21, 2021 11:00pm Start: 09-27-2021 take 1 tablet by dorothy twice daily potassium chloride 20 MEQ Tab CR tablet Take 1 tablet by mouth twice daily for 7 days. 0 09/27/2021 Active Start: 07-17-2020 End: 07-17-2020 potassium chloride SA (K-DUR,KLOR-CON) CR tablet 40 mEq Start: 04-22-2018 End: 07-13-2020 20 mEq, Oral, 2 times daily PRN, other, if K low., Starting [facility] 04/22/18 at 0959 Give if K less than 3.5 DO NOT CRUSH OR CHEW take 1 tablet by dorothy th once daily potassium chloride 20 mEq oral tablet, extended release ; 1 tab(s) orally once a day Quantity: 0 Refills: 0 Ordered: 05-Jan-2019 Mesha Pulliam Status: Other Generic Substitution Allowed potassium citrate 10 meq extended release oral tablet (13 sources) Start: 09-30-2023 End: 08-04-2024 take 1 tablet by mouth three times daily potassium citrate 10 MEQ (1080 MG) Tab CR Take 1 tablet by mouth 3 (three) times a day. 270 tablet 3 08/04/2024 Active Prenat Vit 58-Mlht-Chfly-Om3,6 (13 sources) Start: 10-22-2021 take 1 capsule by mouth once daily Prenat Vit 93-Aahe-Mlyqs-Om3,6 Active 1 CAP PO DAILY October 21, 2021 11:00pm Start: 10-22-2021 take 1 capsule by mo arh once daily Prenat Vit 45-Bjai-Zplga-Om3,6 Active 1 CAP PO DAILY October 22, 2021 12:00am 1 oral capsule (2 sources) 1 oral capsule Quantity: 0 Refills: 0 Ordered: 26-May-2020 Irma Paulino Generic Substitution Allowed vit,calc76/iron/folic (THRIVITE RX ORAL) (2 sources) take 1 tablet by mouth once daily in the morning vit,calc76/iron/folic (THRIVITE RX ORAL) Take 1 tablet by mouth every morning . 0 Active Vit-Fe Fumarate-FA (/Folic Acid) tablet (2 sources) Start: 05-07-2020 take 1 tablet by mouth once daily Vit-Fe Fumarate-FA (/Folic Acid) tablet Indications: Family planning counseling Take 1 tablet by mouth daily. 30 tablet 11 05/07/2020 Active Vit-Iron Carbonyl-FA (Thrivite Rx) 29-1 MG tablet (2 sources) Start: 07-04-2020 take 1 tablet by mouth once daily Vit-Iron Carbonyl-FA (Thrivite Rx) 29-1 MG tablet Take 1 tablet by mouth daily. 0 07/04/2020 Active vitamin 27-1 MG tablet 1 tablet (2 sources) Start: 01-05-2021 take 1 tablet by mouth once daily 1 tablet, Oral, DAILY, First dose on 01/05/21 at 1830 Begin when normal bowel activity resumes. Start: 01-01-2021 End: 01-05-2021 take 1 tablet by mouth once daily 1 tablet, Oral, DEENA Y, First dose on 01/01/21 at 0900 promethazine hydrochloride 12.5 mg oral tablet (20 sources) Phenothiazine Start: 06-23-2024 End: 06-24-2024 take 1 tablet by mouth every six hours as needed 12.5 mg, oral, Every 6 hours PRN, nausea, vomiting, Starting on Cristine 06/23/24 at 1033, For use if IV Zofran ineffective or no IV access. Start: 01-27-2024 End: 06-24-2024 take 25 mg rectal route every six hours as needed for nausea and nausea Promethazine 25 MG Suppository suppository Indications: Nausea Insert 1 suppository rectally every 6 hours as needed for Nausea / Vomiting. 6 suppository 03/30/2024 Active Start: 09-07-2023 take 1 tablet by dorothy th every six hours as needed promethazine (Phenergan) 12.5 mg tablet Take 1 tablet (12.5 mg) by mouth every 6 hours if needed for nausea or vomiting. 09/07/2023 Active Start: 03-09-2023 End: 08-03-2024 take 1 tablet by mouth every four hours as needed for nausea and nausea Promethazine HCl 12.5 MG tablet Indications: Nausea Take 1 tablet by mouth every 4 hours as needed for Nausea / Vomiting. 30 tablet 08/03/2024 Active Start: 11-17-2022 take 1 tablet by dorothy th every four hours as needed for nausea and nausea Promethazine HCl 12.5 MG tablet Indications: Nausea Take 1 tablet by mouth every 4 hours as needed for Nausea / Vomiting. 30 tablet 0 11/17/2022 Active Start: 01-05-2021 End: 01-05-2021 promethazine (PHENERGAN) inj ection 6.25 mg Start: 02-28-2020 End: 11-12-2022 take 1 tablet by mouth at bedtime as needed for nausea Promethazine 25 MG tablet Discontinued 25 mg PO AT BEDTIME as needed for Nausea February 28, 2020 1:00am November 09, 2022 4:42pm Start: 10-22-2015 End: 04-26-2018 take 1 tablet by mouth every six hours as needed 25 mg, Oral, Every 6 hours PRN, nausea, vomiting, Starting Cristine 04/22/18 at 0959 Start: 10-22-2015 take 1 tablet by mouth once pr omethazine (PHENERGAN) 25 MG tablet Take 25 mg by mouth nightly. 10/22/2015 Active Comment on above: Take 25 mg by mouth every 6 hours as needed. simethicone 80 mg chewable tablet (1 source) Start: take 80 mg by mouth every six hours as needed 80 mg, Oral, EVERY 6 HOURS PRN, Cramping, Flatulence, Starting on 01/05/21 at 1812, SPACER FOR INHALER PRESCRIPTION (2 sources) Start: SPACER FOR INHALER PRESCRIPTION Indications: Mild intermittent asthma without complication Use with inhaler as directed 1 Each 0 09/10/2020 Active spironolactone 25 mg oral tablet (20 sources) Aldosterone Antagonist Start: End: take 1 tablet by mouth once daily Spironolactone 25 MG tablet Take 1 tablet by mouth daily. 90 tablet 3 06/15/2024 Active sulfamethoxazole 800 mg / trimethoprim 160 mg oral tablet (3 sources) Dihydrofolate Reductase Inhibitor Antibacterial, Sulfonamide Antimicrobial Start: 025 End: 025 take 1 tablet by mouth twice daily sulfamethoxazole-trim ethoprim (BACTRIM DS,SEPTRA DS) 800-160 mg per tablet Take 1 (one) tablet by mouth 2 (two) times a day for 10 days . 20 tablet 04/21/2024 05/01/2024 Active Start: 02-24-2022 take 1 tablet by dorothy twice daily Sulfamethoxazole-Trimethoprim Active 1 T ABLET PO TWICE A DAY February 24, 2022 12:00am tiZANidine 4 mg oral capsule (20 sources) Central alpha-2 Adrenergic Agonist Start: 08-15-2024 take 2 capsules by mouth every eight hours in the evening for muscle spasms tiZANidine (Zanaflex) 4 mg capsule Indications: Chronic pain syndrome , Spondylosis of lumbosacral region without myelopathy or radiculopathy , Stage 2 chronic kidney disease Take 2 capsules (8 mg) by mouth every 8 hours if needed for muscle spasms. Do not take if using methocarbamol 180 capsule 2 09/26/2024 3:47 PM EDT 08/15/2024 Active Start: 07-20-2024 take 2 capsules by m outh every eight hours for muscle spasms tiZANidine (Zanaflex) 4 mg capsule Indications: Chronic pain syndrome , Spondylosis of lumbosacral region without myelopathy or radiculopathy , Stage 2 chronic kidney disease Take 2 capsules (8 mg) by mouth every 8 hours if needed for muscle spasms. Do not take if using methocarbamol 90 capsule 07/20/2024 Active Start: 06-23-2024 End: 06-24-2024 take 8 mg by mouth three times daily 8 mg, oral, 3 times daily, First dose on Cristine 06/23/24 at 1400 Start: 04-26-2024 End: 07-20-2024 take 2 capsules by mouth every eight hours for muscle spasms tiZANidine (Zanaflex) 4 mg capsule Indications: Spondylosis of lumbosacral region without myelopathy or radiculopathy , Chronic pain syndrome , Stage 2 chronic kidney disease Take 2 capsules (8 mg) by mouth every 8 hours if needed for muscle spasms. Do not take if using methocarbamol 90 capsule 06/15/2024 07/20/2024 Discontinued (Reorder) Start: 03-23-2024 take 2 capsules by m outh every eight hours for muscle spasms tiZANidine (Zanaflex) 4 mg capsule Indications: Chronic pain syndrome , Spondylosis of lumbosacral region without myelopathy or radiculopathy , Stage 2 chronic kidney disease Take 2 capsules (8 mg) by mouth every 8 hours if needed for muscle spasms. Do not take if using methocarbamol 90 capsule 03/23/2024 Active Start: 03-10-2024 End: 03-23-2024 take 1 capsule by mouth every eight hours for muscle spasms tiZANidine (Zanaflex) 4 mg capsule Indications: Spondylosis of lumbosacral region without myelopathy or radiculopathy , Chronic pain syndrome , Stage 2 chronic kidney disease Take 1 capsule (4 mg) by mouth every 8 hours if needed for muscle spasms. Do not take if using methocarbamol 90 capsule 03/10/2024 03/23/2024 Discontinued (Reorder) Start: 02-04-2024 take 4 tablets by mo uth three times daily as needed Tizanidine 2 mg tablet Active 8 mg PO 3 TIMES DAILY NEEDED as needed for muscle spasticity February 04, 2024 9:17am Start: 10-08-2023 End: 11-30-2023 take 1 capsule by mouth every eight hours for muscle spasms tiZANidine (Zanaflex) 4 mg capsule Indications: Spondylosis of lumbosacral region without myelopathy or radiculopathy , Chronic pain syndrome , Stage 2 chronic kidney disease Take 1 capsule (4 mg) by mouth every 8 hours if needed for muscle spasms. 90 capsule 2 11/30/2023 Active Start: 09-21-2023 take 1 tablet by dorothy th every eight hours as needed for muscle spasms tiZANidine 4 MG tablet Indications: Lumbosacral radiculopathy , Sacroiliac joint pain Take 1 tablet by mouth every 8 hours as needed for Muscle spasms. 40 tablet 09/21/2023 Active Start: 09-03-2023 take 1 tablet by dorothy th every eight hours as needed for muscle spasms tiZANidine 4 MG tablet Indications: Lumbosacral radiculopathy , Sacroiliac joint pain Take 1 tablet by mouth every 8 hours as needed for Muscle spasms. 40 tablet 09/03/2023 Active Start: 08-17-2023 End: 09-07-2023 take 1 tablet by mouth three times daily as needed for muscle spasms tiZANidine 4 MG tablet Indications: Chronic bilateral low back pain without sciatica Take 1 tablet by mouth 3 times daily as needed for Muscle spasms. 90 tablet 08/17/2023 09/07/2023 Discontinued (Duplicate (suppress cancel msg)) Start: 07-15-2023 take 1 tablet by dorothy th three times daily as needed for muscle spasms Tizanidine 4 MG tablet Indications: Chronic bilateral low back pain without sciatica Take 1 tablet by mouth 3 times daily as needed for Muscle spasms. 90 tablet 07/15/2023 Active Start: 06-15-2023 End: 02-04-2024 Tizanidine 2 mg tablet Disco ntinued mg PO July 01, 2023 12:00am February 04, 2024 9:18am Start: 05-20-2023 take 1 tablet by dorothy th three times daily Tizanidine 2 MG tablet Indications: Chronic bilateral low back pain without sciatica Take 1 tablet by mouth 3 times daily. 90 tablet 05/20/2023 Active Start: 03-09-2023 End: 04-22-2023 take 1 tablet by mouth three times daily Tizanidine 2 MG tablet Indications: Chronic bilateral low back pain without sciatica Take 1 tablet by mouth 3 times daily. 90 tablet 04/22/2023 Active Start: 12-31-2022 take 1 tablet by dorothy th three times daily Tizanidine 2 MG tablet Indications: Chronic bilateral low back pain without sciatica Take 1 tablet by mouth 3 times daily. 90 tablet 1 12/31/2022 Active Start: 09-30-2021 take 1 tablet by dorothy th once daily at bedtime as needed tiZANidine 4 MG tablet TAKE 1 TABLET BY MOUTH DAILY AT BEDTIME NEEDED FOR INSOMNIA 0 09/30/2021 Active Start: 06-06-2021 take 4 mg by mouth at bedtime Tizanidine Active 4 MG PO AT BEDTIME June 05, 2021 11:00pm Start: 06-06-2021 take 2 mg by mouth once daily Tizanidine Active 2 MG PO DAILY June 06, 2021 12:00am Start: 05-01-2021 End: 10-07-2021 take 1 tablet by mouth twice daily as needed for muscle spasms tizanidine 2 MG tablet Indications: Chronic right-sided thoracic back pain Take 1 tablet by mouth 2 times daily as needed for Muscle spasms. 30 tablet 0 05/01/2021 10/07/2021 Discontinued (Dose adjustment (suppress cancel msg)) Start: 07-13-2020 End: 07-16-2020 take 4 mg by mouth twice daily 4 mg, Oral, 2 times liz ly, First dose on Thu07/13/20 at 2130 Start: 04-22-2018 End: 07-18-2020 tiZANidine (ZANAFLEX) tablet 4 mg Start: 10-26-2015 End: 07-13-2020 take 1 capsule by mouth three times daily as needed tiZANidine HCl (ZANAFLEX) 2 mg capsule Indications: Endometriosis , Pelvic pain in female Take 1-2 capsules by mouth three times a day as needed. 30 capsule 1 03/05/2023 Active Start: 10-26-2015 End: 10-08-2023 take 1 capsule by mouth every eight hours as needed tiZANidine (Zanaflex) 2 mg capsule Take 1 capsule (2 mg) by mouth every 8 hours if needed. 03/05/2023 10/08/2023 Discontinued (Reorder) Start: 10-26-2015 take 1 tablet by dorothy th three times daily tiZANidine HCl - 4 MG Oral Tablet TAKE 1 TABLET 3 times daily Quantity: 90 Refills: 5 Mesha Garcia PA-C Start : 26-Oct-2015 Active take 1 capsule by mo [facility] every eight hours as needed tiZANidine HCl (ZANAFLEX) 4 mg capsule Take 4 mg by mouth three times daily as needed for Muscle Spasm. 0 Active take 1 tablet by dorothy th once daily at bedtime as needed for pain tiZANidine 4 mg oral tablet ; 1 tab(s) orally once a day (at bedtime), As Needed - for spasms//muscle pain Quantity: 0 Refills: 0 Ordered: 05-Jan-2019 Mesha Pulliam Status: Other Generic Substitution Allowed Comment on above: Take 4 mg by mouth t hree times daily as needed for Muscle Spasm. Take 1-2 capsules by mouth three times a day as needed. topiramate 25 mg oral tablet (3 sources) Start: 1 End: take 1 tablet by mouth twice daily topiramate (TOPAMAX) 25 MG tablet Indications: Pseudoseizures (HCC) Take 1 (one) tablet (25 mg total) by mouth 2 (two) times a day . 60 tablet 0 07/18/2020 Active traZODone hydrochloride 150 mg oral tablet (20 sources) Serotonin Reuptake Inhibitor Start: 5 End: 5 take 150 mg by mouth once daily 150 mg, oral, Nightly, First dose on Cristine 06/23/24 at 2100 Start: 12-31-2022 End: 04-22-2023 take 1.5 tablets by mouth once daily in the evening traZODone 100 MG tablet Indications: Psychophysiological insomnia Take 1.5 tablets by mouth every evening at 6 PM. 45 tablet 03/09/2023 04/22/2023 Discontinued (Reorder) Start: 12-31-2020 traZODone (BART YREL) 100 mg tablet Take 100 mg by mouth. 0 12/31/2020 Active Start: 12-31-2020 End: 01-30-2025 take 1 tablet by mouth once daily in the evening trazodone 150 MG tablet Indications: Psychophysiological insomnia Take 1 tablet by mouth every evening at 6 PM. 90 tablet 1 08/03/2024 01/30/2025 Active Start: 08-21-2020 take 1 tablet by dorothy once daily in the evening trazodone 100 MG tablet Indications: Psychophysiological insomnia Take 1 tablet by mouth every evening at 6 PM. 30 tablet 1 08/21/2020 Active Start: 07-13-2020 End: 07-18-2020 take 150 mg by mouth once daily 150 mg, Oral, Nightly, First dose on Thu07/13/20 at 2130 Start: 04-23-2018 End: 04-26-2018 traZODone (DESYREL) tablet 5 0 mg End: 07-09-2022 take 3 tablets by mouth at bedtime traZODone 50 MG tablet Take 3 tablets by mouth At bedtime. 0 07/09/2022 Discontinued traZODone HCl TA BS TAKE 1 TABLET DAILY. Refills: 0 DO Active traZODone HCl TA BS TAKE 1 TABLET DAILY. Refills: 0 Active Comment on above: Take 100 mg by mouth . vortioxetine 20 mg oral tablet (20 sources) Start: 06-23-2024 End: 06-24-2024 take 20 mg by mouth once daily 20 mg, oral, Nightly, First dose on Cristine 06/23/24 at 2100 Start: 10-05-2023 take 1 tablet by dorothy th once daily Vortioxetine (Trintellix) 10 mg tablet Active 10 mg PO daily October 05, 2023 12:00am Start: 09-07-2023 End: 08-03-2024 take 1 tablet by mouth once daily Vortioxetine HBr (Trintellix) 20 MG tablet Indications: Generalized anxiety disorder Take 1 tablet by mouth daily. 90 tablet 1 08/03/2024 Active Start: 07-15-2023 End: 09-07-2023 take 1 tablet by mouth once daily Trintellix 10 mg tablet Take 1 (one) tablet (10 mg total) by mouth daily . 08/21/2023 Active Completed/Discontinued Medications Medication Drug Class(es) Dates Sig (Normalized) Sig (Original) acetaminophen 500 mg oral tablet (20 sources) Start: 06-23-2024 End: 06-24-2024 take 1000 mg by mouth three times daily 1,000 mg, oral, 3 times daily, First dose on Cristine 06/23/24 at 1400 Start: 06-23-2024 End: 06-24-2024 take 1 tablet by mouth every six hours as needed 325 mg, oral, Every 6 hours PRN, mild pain, headaches, Starting on Cristine 06/23/24 at 1033 Start: 03-24-2023 End: 04-03-2023 take 2 tablets by mouth every six hours acetaminophen (TYLENOL) 325 mg tablet Take 2 tablets by mouth every 6 hours for 10 days. 80 tablet 0 03/24/2023 04/03/2023 Active Start: 01-05-2021 take 650 mg by mouth every six hours as needed for pain, then take 4000 mg by mouth every twenty-four hours as needed for pain 650 mg, Oral, EVERY 6 HOURS PRN, Pain Mild (1-3), Starting on 01/05/21 at 1812 Maximum dose of acetaminophen is 4000 mg from all sources in 24 hours. Start: 07-13-2020 End: 07-18-2020 take 1 tablet by mouth every six hours as needed for headache and pain acetaminophen (TYLENOL) tablet 975 mg Start: 04-22-2018 End: 04-26-2018 take 1 tablet by mouth every four hours as needed acetaminophen (TYLENOL) tablet 650 mg take 1 tablet by dorothy every six hours as needed acetaminophen (Tylenol) 500 mg tablet Take 1 tablet (500 mg) by mouth every 6 hours if needed. Active End: 06-24-2024 take 2 tablets by mouth once daily acetaminophen (TYLENOL) 500 mg tablet Take 2 tablets (1,000 mg total) by mouth 1 (one) time each day if needed (pain). 06/24/2024 Discontinued (Stop Taking at Discharge) take 1 capsule by mo [facility] three times daily as needed Tylenol 325 mg oral capsule ; 1 cap(s) orally 3 times a day, As Needed Quantity: 0 Refills: 0 Ordered: 02-Sep-2019 Aline Ricardo Generic Substitution Allowed Comment on above: Take 2 tablets by mo [facility] every 6 hours for 10 days. acetaminophen 325 mg / HYDROcodone bitartrate 5 mg oral tablet (20 sources) Opioid Agonist Start: End: take 1-2 tablets by mouth every four to six hours as needed for pain HYDROcodone-acetaminop hen (NORCO) 5-325 mg per tablet Take 1-2 tablets by mouth See administration instructions. Every 4 to 6 hours as needed for pain 06/10/2024 06/24/2024 Discontinued (Stop Taking at Discharge) Start: 08-17-2023 End: 09-07-2023 take 1 tablet by mouth every six hours as needed hydroCODone-acetaminophen 5-325 MG table t Indications: Acute left-sided low back pain with left-sided sciatica Take 1 tablet by mouth every 6 hours as needed for up to 10 days. 15 tablet 08/17/2023 09/07/2023 Discontinued (Therapy completed) Start: 08-10-2023 End: 08-13-2023 take 1 tablet by mouth every six hours as needed hydroCODone-acetaminophen 5-325 MG table t Indications: Acute left-sided low back pain with left-sided sciatica Take 1 tablet by mouth every 6 hours as needed for up to 3 days. 10 tablet 08/10/2023 08/13/2023 Active Start: 02-24-2022 End: 11-09-2022 Hydrocodone-Acetaminophen 5- 325 mg tablet Discontinued 1 {tbl} PO EVERY 6 HOURS NEEDED as needed for Pain 10 3 0 February 24, 2022 November 09, 2022 4:43pm Acute right flank pain History of renal calculi Stage 2 chronic kidney disease Unspecified abdominal pain Personal history of urinary calculi Chronic kidney disease, stage 2 (mild) Start: 02-24-2022 End: 11-09-2022 take 1 tablet by mouth every six hours as needed Hydrocodone-Acetaminophen Discontinued 1 TABLET PO EVERY 6 HOURS NEEDED 10 3 February 24, 2022 November 09, 2022 4:43pm Start: 08-27-2021 take 1 tablet by dorothy th every four hours as needed Hydrocodone-Acetaminophen Active 1 TABLE T PO EVERY 4 HOURS NEEDED 10 2 August 27, 2021 Start: 06-07-2021 End: 12-09-2021 hydroCODone-acetaminophen 5- 325 MG tablet Start: 10-23-2020 End: 06-07-2021 Hydrocodone-Acetaminophen 5- 325 mg tablet Discontinued 1 {tbl} PO EVERY 6 HOURS as needed for pain 12 3 0 October 23, 2020 June 07, 2021 1:19pm Renal colic on right side Unspecified renal colic Start: 10-23-2020 End: 06-07-2021 take 1 tablet by mouth every six hours Hydrocodone-Acetaminophen Discontinued 1 TABLET PO EVERY 6 HOURS 12 3 October 23, 2020 June 07, 2021 1:19pm Start: 03-30-2013 End: 06-11-2016 Hydrocodone-Acetaminophen 1 TABLET tablet Discontinued 2 {tbl} PO EVERY 4 HOURS NEEDED as needed for Mild/Moderate Pain 40 0 March 30, 2013 1:00am June 11, 2016 7:24am Start: 03-30-2013 End: 06-11-2016 take 2 tablets by mouth every four hours as needed Hydrocodone-Acetaminophen Discontinued 2 TABLET PO EVERY 4 HOURS NEEDED 40 March 30, 2013 1:00am June 11, 2016 7:24am End: 12-03-2022 HYDROCODONE/ACETAMINOPHEN (N ORCO ORAL) Take by mouth. 0 12/03/2022 Discontinued HYDROCODONE/ACET AMINOPHEN (NORCO ORAL) Take by mouth. 0 Active Comment on above: Take by mouth. ALPRAZolam 0.5 mg oral tablet (10 sources) Benzodiazepine Start: 12-17-2022 End: 12-17-2022 take 1 tablet by mouth once ALPRAZolam (XANAX) 0.5 mg tablet Indications: Pain associated with surgical procedure Take 1 tablet by mouth one time only for 1 dose. 1 tablet 0 12/17/2022 12/17/2022 Start: 04-09-2016 ALPRAZolam 0.5 MG Oral Tablet Quantity: 60 Refills: 0 Start : 09-Apr-2016 Active Comment on above: Take 1 tablet by [facility] one time only for 1 dose. aluminum hydroxide 40 mg/ml / magnesium hydroxide 40 mg/ml / simethicone 4 mg/ml oral suspension (1 source) Start: 06-24-19 End: 06-25-19 take 30 mL by mouth four times daily as needed for gastroesophageal reflux disease 30 mL, oral, 4 times daily PRN, indigestion, heartburn, Starting on Cristine 06/23/24 at 1033 aspirin 81 mg chewable tablet (5 sources) Platelet Aggregation Inhibitor, Nonsteroidal Anti-inflammatory Drug Start: 01-02-20 End: 01-08-20 aspirin chewable tablet 81 mg take 1 tablet by mouth once deena y aspirin 81 MG EC tablet Take 81 mg by mouth daily . 0 Active azithromycin 500 mg injection (2 sources) Macrolide Antimicrobial Start: 01-05-2021 End: 01-05-2021 azithromycin (ZITHROMAX) 500 MG injection Start: 07-17-2020 End: 07-18-2020 azithromycin (ZITHROMAX) tab let 250 mg azithromycin (ZITHROMAX) 500 mg in sodium chloride (NS) 0.9% 250 mL (vialmate) (2 sources) Start: 07-14-2020 End: 07-17-2020 take 500 mg intravenously every twenty-four hours 500 mg, Intravenous, at 250 mL/hr, Every 24 hours, First dose on 07/14/20 at 1400 Indication: COPD Exacerbation Start: 07-13-2020 End: 07-13-2020 azithromycin (ZITHROMAX) 500 mg in sodium chloride (NS) 0.9% 250 mL (vialmate) betamethasone 3 mg/ml / betamethasone acetate 3 mg/ml injectable suspension (1 source) Corticosteroid Start: 01-01-2021 End: 01-01-2021 inject 12 mg by intramuscular injection once 12 mg, IntraMUSCular, ONCE, On Thu01/02/21 at 0000, For 1 dose Per protocol bethanechol chloride 25 mg oral tablet (1 source) Cholinergic Muscarinic Agonist Start: 06-23-2024 End: 06-24-2024 take 25 mg by mouth three times daily as needed 25 mg, oral, 3 times daily PRN, As needed for urinary retention or PVR greater than 400 cc, Starting on Thu06/23/24 at 1033 bifidobacterium infantis 4 mg oral capsule (1 source) Start: 01-02-2021 End: 01-05-2021 acidophilus probiotic capsule 1 capsule bisacodyl 10 mg rectal suppository (2 sources) Stimulant Laxative Start: 06-23-2024 End: 06-24-2024 10 mg, rectal, Daily PRN, constipation, If magnesium hydroxide ineffective, Starting on Thu06/23/24 at 1033 Start: 07-13-2020 End: 07-18-2020 take 10 mg rectal route once daily as needed for constipation 10 mg, Rectal, Daily PRN, constipation, Starting on Thu07/13/20 at 2008 Try oral medications first for constipation. Try rectal medication if oral meds are ineffective, not tolerated, or not ordered. 30 ml bupivacaine hydrochloride 5 mg/ml injection (2 sources) Amide Local Anesthetic Start: 11-20-2023 End: 11-20-2023 As needed, Starting on Thu11/20/23 at 0849, Intraprocedure Start: 10-30-2023 End: 10-30-2023 As needed, Starting on Thu at 1050, Intraprocedure calcium chloride 0.0014 meq/ ml / potassium chloride 0.004 meq/ml / sodium chloride 0.103 meq/ml / sodium lactate 0.028 meq/ml injectable solution (9 sources) Start: 06-23-2024 End: 06-23-2024 20 mL/hr, intravenous, Once, On Cristine 06/23/24 at 0530, For 1 dose, Preprocedure Start: 11-20-2023 take 20 mL intraveno usly every hour 20 mL/hr, intravenous, Continuous, Starting on Thu11/20/23 at 0830, Preprocedure Start: 01-05-2021 End: 01-05-2021 lactated ringers bolus Start: 01-04-2021 End: 01-05-2021 lactated ringers infusion Start: 01-02-2021 End: 01-03-2021 lactated ringers infusion Start: 01-01-2021 End: 01-01-2021 IntraVENous, at 125 mL/hr, CONTINUOUS, Starting on Thu01/01/21 at 0415 Start: 07-14-2020 End: 07-18-2020 lactated Ringers infusion ceFAZolin 2000 mg injection (1 source) Cephalosporin Antibacterial Start: 01-05-2021 End: 01-05-2021 ceFAZolin (ANCEF) 2-4 GM/100ML-% IVPB (premix) SOLN ceFAZolin (ANCEF) 2 gram/20 mL IV syringe 2 g (1 source) Start: 06-23-2024 End: 06-23-2024 2 g, intravenous, Administer over 3 Minutes, Every 8 hours, First dose on Cristine 06/23/24 at 1500, For 2 doses, Indication: Prophylaxis-Surgic al cefTRIAXone 1000 mg injection (2 sources) Cephalosporin Antibacterial Start: 07-13-2020 End: 07-17-2020 take 1000 mg intravenously every twenty-four hours 1,000 mg, Intravenous, at 100 mL/hr, Every 24 hours, First dose on [facility] 07/14/20 at 1500 Indication: CAP (non-ICU) chlorthalidone 25 mg oral tablet (2 sources) Thiazide-like Diuretic End: 07-13-2020 take 1 tablet by mouth once daily chlorthalidone (HYGROTEN) 25 MG tablet Take 25 mg by mouth daily . 0 07/13/2020 Discontinued citalopram 10 mg oral tablet (15 sources) Serotonin Reuptake Inhibitor take 1 tablet by mouth once daily citalopram hydrobromide (CELEXA) 10 mg tablet Take 10 mg by mouth once daily. 0 Active End: 04-22-2018 take 1 tablet by mouth once daily citalopram (CELEXA) 20 MG tablet Take 20 mg by mouth daily. 0 04/22/2018 Discontinued Comment on above: Take 10 mg by mouth once daily. citric acid 66.8 mg/ml / sodium citrate 100 mg/ml oral solution (2 sources) Calculi Dissolution Agent, Anti-coagulant Start: 01-05-2021 End: 01-05-2021 citric acid-sodium citrate (BICITRA) solution 30 mL Start: 01-05-2021 End: 01-05-2021 citric acid-sodium citrate ( BICITRA) 500-334 MG/5ML solution cloNIDine hydrochloride 0.1 mg oral tablet (1 source) Central alpha-2 Adrenergic Agonist Start: 06-23-2024 End: 06-24-2024 take 0.1 mg by mouth every eight hours as needed for hypertension 0.1 mg, oral, Every 8 hours PRN, high blood pressure, for SBP more than 170 or DBP more than 105, Starting on [facility] 06/23/24 at 1033 cyclobenzaprine hydrochloride 5 mg oral tablet (20 sources) Muscle Relaxant Start: 12-09-2022 take 1 tablet by mouth every eight hours as needed cyclobenzaprine (FLEXERIL) 5 mg tablet Take 1 tablet by mouth three times a day as needed. 30 tablet 0 12/09/2022 Active Start: 06-18-2020 take 1 tablet by dorothy th at bedtime as needed cyclobenzaprine 5 MG tablet Take 5 mg by mouth at bedtime as needed. 0 06/18/2020 Active take 1 tablet by dorothy th once daily at bedtime cyclobenzaprine (FLEXERIL) 10 mg tablet Take 10 mg by mouth daily at bedtime. 0 Active Comment on above: Take 10 mg by mouth daily at bedtime. Take 1 tablet by dorothy th three times a day as needed. diphenhydrAMINE hydrochloride 25 mg oral capsule (20 sources) Histamine-1 Receptor Antagonist Start: End: take 1 capsule by mouth every six hours as needed 25 mg, oral, Every 6 hours PRN, itching, Starting on [facility] 06/23/24 at 1033 Start: 09-27-2021 End: 11-12-2022 take 1 capsule by mouth every six hours as needed diphenhydrAMINE (BENADRYL) 25 mg capsule Take 1 capsule by mouth every 6 hours as needed (with Compazine). 20 capsule 0 09/27/2021 Active Start: 01-05-2021 25 mg, IntraVE Nous, EVERY 6 HOURS PRN, Itching, Hives, Starting on 01/05/21 at 1812, take 1 capsule by mo uth every six hours as needed diphenhydrAMINE (SLEEP AID, DIPHENHYDRAMINE,) 50 mg capsule Take 50 mg by mouth every 6 hours as needed. 0 Active Comment on above: Take 50 mg by mouth every 6 hours as needed. Take 1 capsule by mo uth every 6 hours as needed (with Compazine). docusate sodium 50 mg / sennosides, jail 8.6 mg oral tablet (1 source) Start: 06-23-2024 End: 06-24-2024 take 1 tablet by mouth twice daily 1 tablet, oral, 2 times daily, First dose on Cristine 06/23/24 at 2100 doxycycline hyclate 100 mg oral tablet (4 sources) Tetracycline-clas s Drug Start: 10-14-2023 End: 10-24-2023 take 1 tablet by mouth twice daily doxycycline hyclate (VIBRA-TABS) 100 MG tablet Take 1 (one) tablet (100 mg total) by mouth 2 (two) times a day for 10 days . 20 tablet 10/14/2023 10/21/2023 Discontinued (Side effects) Start: 12-17-2022 End: 12-20-2022 take 1 capsule by mouth twice daily doxycycline hyclate (VIBRAMYCIN) 100 mg capsule Take 1 capsule by mouth two times a day for 3 days. 6 capsule 0 12/17/2022 12/20/2022 Active Comment on above: Take 1 capsule by nv uth two times a day for 3 days. EPINEPHrine (ADRENALIN) anaphylaxis kit 0.3 mg (1 source) Start: End: EPINEPHrine (ADRENALIN) anaphylaxis kit 0.3 mg esomeprazole 20 mg delayed release oral capsule (14 sources) Proton Pump Inhibitor Start: 022 End: 023 take 1 capsule by mouth once daily as needed for gastroesophageal reflux disease Esomeprazole Magnesium (Nexium 24hr) 20 mg Capsule,Delayed Release(Dr/Ec) Discontinued 20 mg PO DAILY as needed for GERD October 25, 2021 12:00am November 09, 2022 4:43pm Ethinyl Estradiol / Norethindrone (9 sources) Estrogen End: 021 take 0.05 ug by mouth once norethindrone-ethin yl estradiol (MICROGESTIN 1/20) 1-20 mg-mcg per tablet Take 1 tablet by mouth daily . 0 07/13/2020 Discontinued take 1 tablet by mouth once deena y Microgestin 1/20 1-20 MG-MCG Oral Tablet TAKE 1 TABLET DAILY. Refills: 0 DO Active 21 Tablet Pack take 1 tablet by mouth once deena y Microgestin 1/20 1-20 MG-MCG Oral Tablet TAKE 1 TABLET DAILY. Refills: 0 Active 21 Tablet Pack take 0.05 ug by mouth once noret hindrone-ethinyl estradiol (MICROGESTIN 1/20) 1-20 mg-mcg per tablet Take 1 tablet by mouth daily . 0 Active 1 ml fentaNYL 0.05 mg/ml injection (1 source) Opioid Agonist Start: 06-23-2024 End: 06-23-2024 25 mcg, intravenous, Every 5 min PRN, moderate pain, Starting on Thu06/23/24 at 0815, For 5 doses, Recovery (only) gadoterate meglumine (Dotarem) 0.5 mmol/mL contrast injection (2 sources) Start: 11-20-2023 End: 11-20-2023 As needed, Starting on Thu11/20/23 at 0847, Intraprocedure Start: 10-30-2023 End: 10-30-2023 As needed, Starting on Thu at 1051, Intraprocedure gadoterate meglumine (Dotarem) 0.5 mmol/mL contrast injection 14 mL (1 source) Start: 09-19-2024 End: 09-19-2024 inject 14 mL intravenously once 14 mL, intravenous, Once in imaging, Starting on Thu09/19/24 at 2057, For 1 dose, Administer undiluted as rapid I.V. bolus injection 12 hr guaiFENesin 600 mg extended release oral tablet (1 source) Start: 07-14-2020 End: 07-18-2020 guaiFENesin (MUCINEX) 12 hr tablet 600 mg 0.5 ml HYDROmorphone hydrochloride 1 mg/ml prefilled syringe (5 sources) Opioid Agonist Start: 06-23-2024 End: 06-24-2024 take 0.5 mg by mouth every two hours as needed for pain 0.5 mg, intravenous, Every 2 hours PRN, severe pain, For severe breakthrough pain not relieved with oral pain medication, Starting on Cristine 06/23/24 at 1033 Start: 06-23-2024 End: 06-23-2024 0.5 mg, intravenous, Every 5 min PRN, severe pain or when therapies for moderate pain were not effective, Starting on Cristine 06/23/24 at 0815, For 5 doses, Recovery (only) Start: 06-10-2023 End: 06-10-2023 0.5 mg, Intravenous, ONCE, 1 dose, On Thu06/10/23 at 1145 Start: 01-05-2021 End: 01-05-2021 HYDROmorphone (DILAUDID) injection 0.5 mg Start: 07-15-2020 End: 07-16-2020 take 1 mg intravenously every three hours as needed HYDROmorphone (DILAUDID) injection 1 mg hydrOXYzine hydrochloride 25 mg oral tablet (2 sources) Antihistamine Start: 07-16-2020 End: 07-18-2020 hydrOXYzine (ATARAX) tablet 25 mg Start: 04-22-2018 End: 04-26-2018 hydrOXYzine (ATARAX) tablet 25 mg iv contrast (will be provided with radiology test) (1 source) Start: 01-28-2023 iv contrast (will be provided with radiology test) MRI Female Pelvis Inject, intravenously, once for 1 dose. No IV access, insert saline lock prior to the beginning of sedation, infusion, injection of imaging exam. Discontinue saline lock post exam. If Pt has a central line or IVAD, may access for administration according to line specific nursing protocol. Once exam is complete flush line and de-access according to line specific nursing protocol in the MR contrast administration guidelines link. 1 Each 0 01/28/2023 Active Comment on above: MRI Female Pelvis In ject, intravenously, once for 1 dose. No IV access, insert saline lock prior to the beginning of sedation, infusion, injection of imaging exam. Discontinue saline lock post exam. If Pt has a central line or IVAD, may access for administration according to line specific nursing protocol. Once exam is complete flush line and de-access according to line specific nursing protocol in the MR contrast administration guidelines link. levETIRAcetam 500 mg oral tablet (20 sources) Start: 08-29-2023 End: 10-16-2023 take 1 tablet by mouth twice daily levETIRAcetam 500 MG tablet Take 1 tablet by mouth 2 times daily. 08/29/2023 10/16/2023 Discontinued (Therapy completed) Start: 04-26-2018 End: 07-13-2020 levETIRAcetam (KEPPRA) table t 500 mg Start: 04-24-2014 take 0.5 tablet by m outh twice daily levETIRAcetam (KEPPRA) 500 mg tablet Take 0.5 tablets by mouth twice daily. 30 tablet 11 04/24/2014 Active Comment on above: Take 0.5 tablets by mouth twice daily. Take 500 mg by mouth twice daily. 10 ml lidocaine hydrochloride 20 mg/ml injection (6 sources) Antiarrhythmic, Amide Local Anesthetic Start: 12-11-2023 End: 12-11-2023 As needed, Starting on Thu12/11/23 at 0825, Intraprocedure Start: 11-20-2023 End: 11-20-2023 As needed, Starting on Thu at 0846, Intraprocedure Start: 10-30-2023 End: 10-30-2023 As needed, Starting on Thu at 1044, Intraprocedure Start: 10-21-2023 End: 10-21-2023 lidocaine 20 mg/mL (2 %) inj ection 3 mL Start: 10-21-2023 End: 10-21-2023 3 mL, Intradermal, Once, On Thu10/21/23 at 1415, For 1 dose Start: 01-04-2021 End: 01-05-2021 lidocaine 4 % external patch 1 patch magnesium hydroxide 80 mg/ml oral suspension (3 sources) Start: 06-23-2024 End: 06-24-2024 take 8 [oz_av] by mouth twice daily 30 mL, oral, 2 times daily PRN, constipation, Starting on Thu06/23/24 at 1033, Follow dose with 8 oz of water. Start: 07-13-2020 End: 07-18-2020 take 2400 mg by mouth once daily as needed for constipation 2,400 mg (30 mL), Oral, Daily PRN, constipation, For constipation., Starting on Thu07/13/20 at 2008 Start: 04-22-2018 End: 04-26-2018 magnesium hydroxide (MOM) 40 0 mg/5 mL suspension 2,400 mg 500 ml magnesium sulfate 40 mg/ml injection (5 sources) Start: 01-05-2021 End: 01-05-2021 magnesium sulfate 4000 mg in 100 mL IVPB premix Start: 01-05-2021 End: 01-05-2021 magnesium sulfate (46775 mg/500mL infusion) Start: 01-01-2021 End: 01-01-2021 take 25 mL intravenously every hour 1,000 mg/hr (25 mL /hr), IntraVENous, CONTINUOUS, Starting on Thu01/01/21 at 0415, For 8 hours Start: 07-13-2020 End: 07-13-2020 magnesium sulfate 2 g in sterile water (SW) 50 mL IVPB Start: 04-25-2018 End: 04-25-2018 magnesium sulfate 2 g in sterile water (SW) 50 mL IVPB meclizine hydrochloride 25 mg oral tablet (5 sources) Antiemetic Start: 12-29-2023 End: 04-04-2024 take 1 tablet by mouth four times daily as needed for dizziness Meclizine 25 mg tablet Discontinued 25 mg PO 4 TIMES DAILY NEEDED as needed for Dizziness 20 0 December 29, 2023 1:00am April 04, 2024 10:15am Start: 04-23-2018 End: 04-26-2018 meclizine (ANTIVERT) tablet 25 mg melatonin 5 mg oral tablet (1 source) Start: 04-22-2018 End: 04-26-2018 melatonin Tab 10 mg Metoclopramide (3 sources) Dopamine-2 Receptor Antagonist Start: 06-23-2024 End: 06-24-2024 metoclopramide (REGLAN) tablet 10 mg Start: 03-10-2024 take 1 tablet by dorothy th four times daily as needed for nausea and vomiting Metoclopramide Hcl (Reglan) 10 mg tablet Active 10 mg PO 4 TIMES DAILY as needed for nausea and vomiting March 10, 2024 4:35am 5 ml midazolam 1 mg/ml injection (1 source) Benzodiazepine Start: 12-11-2023 End: 12-11-2023 2 mg, intravenous, Once as needed, anxiety, Starting on Thu12/11/23 at 0753, For 1 dose, Preprocedure 1 ml morphine sulfate 2 mg/ml cartridge (1 source) Opioid Agonist Start: 07-14-2020 End: 07-15-2020 take 2 mg intravenously every four hours as needed morphine injection 2 mg Naloxone (2 sources) Opioid Antagonist Start: 06-23-2024 End: 06-24-2024 0.4 mg, intravenous, Once as needed, opioid reversal, respiratory depression, Starting on Cristine 06/23/24 at 1033, For 1 dose Start: 01-05-2021 naloxone (NARC AN) injection 0.4 mg naloxone (NARCAN) injection 0.1 mg (1 source) Start: 07-13-2020 End: 07-18-2020 naloxone (NARCAN) injection 0.1 mg nitrofurantoin, macrocrystals 25 mg / nitrofurantoin, monohydrate 75 mg oral capsule (2 sources) Nitrofuran Antibacterial Start: 10-07-2023 End: 10-12-2023 take 1 capsule by mouth every twelve hours at mealtime Nitrofurantoin Monohyd/M-Cryst (Macrobid) 100 mg capsule Discontinued 100 mg PO Q12H 10 5 0 October 07, 2023 12:00am October 11, 2023 12:00am October 12, 2023 12:04am must administer with a meal/food norethindrone acetate 5 mg oral tablet (7 sources) Start: 01-28-2023 End: 08-03-2023 take 1 tablet by mouth once daily norethindrone (AYGESTIN) 5 mg tablet Take 1 tablet by mouth once daily. 30 tablet 2 01/28/2023 08/03/2023 Discontinued (Course of therapy completed) Comment on above: Take 1 tablet by [facility] once daily. omeprazole 20 mg delayed release oral capsule (20 sources) Proton Pump Inhibitor Start: 01-27-2024 End: 03-30-2024 take 1 capsule by mouth once daily omeprazole [address] capsule Indications: Abdominal discomfort in right upper quadrant Take 1 capsule by mouth daily. 30 capsule 1 01/27/2024 03/30/2024 Discontinued (Alternate therapy) Start: 09-27-2021 End: 07-09-2022 take 1 capsule by mouth once daily omeprazole (PRILOSEC) 20 mg capsule Take 1 capsule by mouth once daily for 28 days. 28 capsule 0 09/27/2021 Active take 1 capsule by [facility] once daily PriLOSEC 20 mg oral delayed release capsule ; 1 cap(s) orally once a day Quantity: 0 Refills: 0 Ordered: 02-Sep-2019 Aline Ricardo Status: Other Generic Substitution Allowed End: 07-13-2020 take 1 capsule by mouth once daily omeprazole (PRILOSEC) 40 MG capsule Take 40 mg by mouth daily . 0 07/13/2020 Discontinued Comment on above: Take 1 capsule by [facility] once daily for 28 days. Oxygen Therapy, Adult (1 source) Start: End: inhalation, Continuous, Starting on Thu06/23/24 at 1100, Titrate 1 lpm - 4 lpm to keep SpO2 above 90%. If the patient has a history of COPD or obstructive sleep apnea, may titrate for sats at or above 88%. If flow is increased above 4 lpm, please contact the physician., Device: Nasal Cannula, Titrate Oxygen to keep O2 Sat. at or above: 90% oxytocin (PITOCIN) 30 units in 500 mL infusion Override Pull (1 source) Start: End: oxytocin (PITOCIN) 30 units in 500 mL infusion Override Pull phenazopyridine hydrochloride 100 mg oral tablet (1 source) Start: End: take 1 tablet by mouth three times daily as needed for pain phenazopyridine (Pyridium) 100 MG tablet Indications: Acute cystitis with hematuria Take 1 tablet by mouth 3 times daily as needed for Pain. 9 tablet 0 11/11/2021 12/09/2021 Discontinued (Therapy completed) polyethylene glycol 3350 99912 mg powder for oral solution (1 source) Osmotic Laxative Start: End: 05-09-2 025 17 g, oral, Daily, First dose on Cristine 06/23/24 at 1400 prazosin 1 mg oral capsule (5 sources) alpha-Adrenergi c Hawa Start: 023 End: 023 take 1 capsule by mouth at bedtime as needed Prazosin 1 MG capsule Indications: Psychophysiological insomnia Take 1 capsule by mouth at bedtime as needed. 30 capsule 0 07/30/2022 11/12/2022 Discontinued (Therapy completed) Start: 06-11-2022 End: 07-09-2022 Prazosin 1 MG capsule Indica tions: Psychophysiological insomnia , Nightmares Take 1mg at bedtime x 1 week then increase weekly to max dose of 3mg if needed 90 capsule 1 06/11/2022 07/09/2022 Discontinued (Therapy completed) predniSONE 10 mg oral tablet (7 sources) Start: 08-10-2023 End: 09-07-2023 predniSONE 10 MG tablet Indications: Acute left-sided low back pain with left-sided sciatica Take 2 day taper starting with 60mg. 60mg x 2 days, 40mg x 2 days, 20mg x 2 days, 10mg x 2 days. 26 tablet 08/10/2023 09/07/2023 Discontinued (Therapy completed) Start: 06-12-2021 End: 10-07-2021 predniSONE 10 MG tablet Arpita cations: Anterior pleuritic pain Take 2 day taper starting with 60mg. 60mg x 2 days, 40mg x 2 days, 20mg x 2 days, 10mg x 2 days. Take in the am. 26 tablet 0 06/12/2021 10/07/2021 Discontinued (Therapy completed) Start: 07-16-2020 End: 07-18-2020 predniSONE (DELTASONE) table t 40 mg Start: 09-20-2019 take 1 tablet by dorothy th once daily predniSONE 10 MG Oral Tablet Take 1 tablet daily Quantity: 5 Refills: 0 Benitez Eubanks MD Start : 20-Sep-2019 Active pregabalin 50 mg oral capsule (3 sources) Start: 09-16-2023 End: 10-16-2023 take 1 capsule by mouth twice daily Pregabalin 50 MG capsule Indications: Lumbosacral radiculopathy 1 po BID. 12 capsule 09/16/2023 10/16/2023 Discontinued (Alternate therapy) Prenat Vit 50-Roud-Tmazz-Om3,6 35-5-1.2-400 mg Capsule (2 sources) Start: 10-22-2021 End: 07-01-2023 Prenat Vit 47-Ygyx-Sfxqc-Om3,6 35-5-1.2-400 mg Capsule Discontinued 1 NMA PO DAILY October 22, 2021 12:00am July 01, 2023 11:12am 27-1 MG tablet (11 sources) Start: 10-29-2022 End: 04-22-2023 take 1 tablet by mouth once daily 27-1 MG tablet Take 1 tablet by mouth daily. 90 tablet 3 10/29/2022 04/22/2023 Discontinued (Therapy completed) Start: 10-29-2022 take 1 tablet by dorothy th once daily 27-1 MG tablet Take 1 tablet by mouth daily. 90 tablet 3 10/29/2022 Active Start: 09-23-2021 take 1 tablet by dorothy th once daily 27-1 MG tablet Take 1 tablet by mouth daily. 30 tablet 11 09/23/2021 Active vit/iron fum/folic ac (-FOLIC ACID ORAL) (11 sources) vit/iro n fum/folic ac (-FOLIC ACID ORAL) Take by mouth. 0 Active Comment on above: Take by mouth. vitamin with Ca-Iron-FA tablet 1 tablet (1 source) Start: 07-15-19 End: 07-19-19 take 1 tablet by mouth once daily 1 tablet, Oral, Daily, First dose on 07/14/20 at 0900 prochlorperazine 10 mg oral tablet (5 sources) Phenothiazine Start: 09-28-19 End: 12-10-19 22 take 1 tablet by mouth every six hours as needed for nausea prochlorperazine 10 MG tablet Take 1 tablet by mouth every 6 hours as needed for nausea/vomiting for up to 7 days. 0 09/27/2021 12/09/2021 Discontinued Start: 09-25-2021 End: 12-09-2021 Prochlorperazine Maleate (CO MPAZINE PO) Start: 09-25-2021 Prochlorperazi ne Maleate (COMPAZINE PO) Start: 07-16-2020 End: 07-18-2020 take 5 mg intravenously every six hours as needed for nausea and vomiting prochlorperazine (COMPAZINE) injection 5 mg racepinephrine 22.5 mg/ml inhalation solution (1 source) Start: 07-13-2020 End: 07-13-2020 racEPINEPHrine 2.25 % nebulizer solution 0.5 mL rizatriptan 10 mg oral tablet (13 sources) Serotonin-1b and Serotonin-1d Receptor Agonist Start: 04-24-2014 take 1 tablet by mouth every two hours as needed for headache rizatriptan (MAXALT) 10 mg tablet Take 1 tablet by mouth as needed for Migraine Headache (see administration instructions) (at onset of headache. May repeat after 2 hours.). 12 tablet 3 04/24/2014 Active Comment on above: Take 1 tablet by dorothy th as needed for Migraine Headache (see administration instructions) (at onset of headache. May repeat after 2 hours.). sertraline 100 mg oral tablet (20 sources) Serotonin Reuptake Inhibitor Start: 04-22-2023 End: 07-21-2023 take 1.5 tablets by mouth once daily Sertraline 100 MG tablet Indications: Generalized anxiety disorder Take 1.5 tablets by mouth daily. 135 tablet 04/22/2023 07/15/2023 Discontinued (Reorder) Start: 11-12-2022 End: 01-11-2023 take 1 tablet by mouth once daily Sertraline 50 MG tablet Indications: Generalized anxiety disorder Take 1 tablet by mouth daily. 30 tablet 1 11/12/2022 01/11/2023 Active Start: 06-11-2022 End: 11-12-2022 take 1.5 tablets by mouth once daily Sertraline 100 MG tablet Indications: Generalized anxiety disorder Take 1.5 tablets by mouth daily. 135 tablet 1 10/29/2022 11/12/2022 Discontinued (Reorder) Start: 12-09-2021 take 1 tablet by dorothy th once daily sertraline 50 MG tablet Indications: Generalized anxiety disorder Take 1 tablet by mouth daily. Pt takes a total of 150mg daily 90 tablet 0 12/09/2021 Active Start: 09-30-2021 End: 12-09-2021 take 3 tablets by mouth once daily sertraline 50 MG tablet Indications: Generalized anxiety disorder Take 3 tablets by mouth daily. 1 tablet 0 10/07/2021 12/09/2021 Discontinued (Reorder) Start: 06-06-2021 End: 11-09-2022 Sertraline 100 mg tablet Discontinued 150 mg PO DAILY June 06, 2021 12:00am November 09, 2022 4:42pm Start: 06-06-2021 End: 11-09-2022 take 150 mg by mouth once daily Sertraline Discontinue d 150 MG PO DAILY June 06, 2021 12:00am November 09, 2022 4:42pm Start: 01-16-2021 End: 02-04-2024 take 1 tablet by mouth once daily Sertraline (Zoloft) 100 mg tablet Discontinued 100 mg PO DAILY 2022 12:00am February 04, 2024 9:17am Start: 01-07-2021 take 1 tablet by dorothy th once daily sertraline (ZOLOFT) 25 MG tablet Take 1 tablet by mouth daily 30 tablet 2 01/07/2021 Active Comment on above: Take 100 mg by mouth once daily. 1000 ml sodium chloride 9 mg/ml injection (6 sources) Start: 06-23-2024 End: 06-24-2024 take 100 mL intravenously every hour 100 mL/hr, intravenous, Continuous, Starting on Cristine 06/23/24 at 1100, For 1 day Start: 01-05-2021 take 10 mL intravenously once 10 mL, IntraVENous, PRN, Line Care, Starting on 01/05/21 at 1812 After every IV line use Start: 01-05-2021 take 25 mL intraveno usly every hour as needed 25 mL, IntraVENous, at 100 mL/hr, PRN, If patient receiving piggyback infusions without ordered maintenance IV fluids or with frequent/long duration piggyback infusions, Starting on 01/05/21 at 1812 Administer at the same rate as the piggyback being infused. Start: 01-03-2021 End: 01-05-2021 sodium chloride flush 0.9 % injection 5-40 mL Start: 07-13-2020 End: 07-18-2020 sodium chloride (PF) (NS) fl ush 5 mL Start: 04-22-2018 End: 04-26-2018 sodium chloride (PF) (NS) fl ush 5 mL sodium chloride (PF) (NS) 0.9 % contrast line flush 10 mL (1 source) Start: 07-16-2020 End: 07-18-2020 sodium chloride (PF) (NS) 0.9 % contrast line flush 10 mL sucralfate 100 mg/ml oral suspension (20 sources) Aluminum Complex Start: 10-20-2021 End: 11-09-2022 take 1 mL by mouth every six hours Sucralfate 100 mg/mL suspension Discontinued 10 mL PO EVERY 6 HOURS 400 0 October 20, 2021 12:00am November 09, 2022 4:42pm Start: 10-15-2021 End: 10-20-2021 take 1 tablet by mouth 1 hour(s) before bedtime Sucralfate 1 gram tablet Discontinued 1 g PO before meals and at bedtime 56 0 October 15, 2021 12:00am October 20, 2021 9:59pm Take one hour before meals and at bedtime SUMAtriptan 100 mg oral tablet (2 sources) Serotonin-1b and Serotonin-1d Receptor Agonist End: 04-22-2018 take 1 tablet by mouth every two hours as needed SUMAtriptan (IMITREX) 100 MG tablet Take 100 mg by mouth every 2 (two) hours as needed for migraine Max of 200 mg in 24hrs . 0 04/22/2018 Discontinued Surgical Lubricant Jelly gel (1 source) Start: 01-28-2023 Surgical Lubricant Jelly gel For MRI Female Pelvis, MRI department to provide. Administer intra-vaginal Surgilube immediately prior the MRI procedure (total amount to patient toleranace). 1 g 0 01/28/2023 Active Comment on above: For MRI Female Pelvi s, MRI department to provide. Administer intra-vaginal Surgilube immediately prior the MRI procedure (total amount to patient toleranace). tamsulosin hydrochloride 0.4 mg oral capsule (15 sources) alpha-Adrenergic Hawa Start: 08-17-2024 End: 10-19-2024 take 1 capsule by mouth once daily Tamsulosin HCl 0.4 MG capsule Take 1 capsule by mouth daily. 30 capsule 08/17/2024 10/19/2024 Discontinued (Discontinued by another clinician (suppress cancel msg)) Start: 05-02-2022 take 1 capsule by mo uth once daily at bedtime tamsulosin (FLOMAX) 0.4 mg Take 1 capsule by mouth daily at bedtime for 7 days. 7 capsule 0 05/02/2022 Active Start: 01-02-2021 End: 01-05-2021 tamsulosin (FLOMAX) capsule 0.4 mg Start: 07-15-2020 End: 07-18-2020 tamsulosin (FLOMAX) 24 hr ca psule 0.4 mg Comment on above: Take 1 capsule by mo uth daily at bedtime for 7 days. traMADol hydrochloride 50 mg oral tablet (12 sources) Opioid Agonist Start: 10-03-2015 End: 12-03-2022 traMADol HCl - 50 MG Oral Tablet Quantity: 60 Refills: 0 Start : 03-Oct-2015 Active Comment on above: Take 50 mg by mouth every 6 hours as needed. Problems Active Problems Problem Classification Problem Date Documented Da te Episodic/Chronic Abdominal pain (20 sources) Flank pain; Translations: [Unspecified abdominal pain] Onset: 4 10-12-2013 Episodic Allergic reactions (4 sources) Allergy status to other antibiotic agents status; Translations: [Allergy status to narcotic agent status] Onset: 4 Episodic Anxiety disorders (20 sources) Anxiety; Translations: [Generalized anxiety disorder] Onset: 0 Chronic Asthma (20 sources) Mild intermittent asthma, uncomplicated; Translations: [Mild intermittent asthma] Onset: 9 04-22-2018 Chronic Blindness and vision defects (20 sources) Visual impairment; Translations: [Unqualified visual loss, right eye, normal vision left eye] Onset: 7 12-27-2016 Chronic Calculus of urinary tract (20 sources) History of calculus of kidney; Translations: [Calculus of kidney] Onset: 0 10-26-2015 Episodic Cardiac and circulatory congenital anomalies (20 sources) Congenital heart disease; Translations: [Congenital malformation of heart, unspecified] Onset: 4 03-09-2023 Chronic Chronic kidney disease (20 sources) Chronic kidney disease, stage 2 (mild); Translations: [Chronic kidney disease stage 2] Onset: 9 04-22-2018 Chronic Endometriosis (20 sources) Endometriosis (clinical); Translations: [Endometriosis, unspecified] Onset: 3 12-17-2022 Chronic Epilepsy; convulsions (8 sources) Seizure disorder; Translations: [Epilepsy, unspecified, not intractable, without status epilepticus] Onset: 0 Resolved: 2 07-15-2011 Chronic Esophageal disorders (3 sources) Gastroesophageal reflux disease; Translations: [Gastro-esophageal reflux disease without esophagitis] Onset: 5 06-23-2024 Chronic Essential hypertension (20 sources) Benign hypertension; Translations: [Essential (primary) hypertension] Onset: 3 07-02-2022 Chronic Gastritis and duodenitis (2 sources) Chronic gastritis; Translations: [Unspecified chronic gastritis without bleeding] 03-30-2024 Chronic Genitourinary symptoms and ill-defined conditions (20 sources) Gross hematuria; Translations: [Dysuria] Onset: 6 Resolved: 4 03-04-2022 Episodic Headache, including migraine (20 sources) Refractory migraine without aura; Translations: [Migraine without aura, intractable, without status migrainosus] Onset: 6 10-26-2015 Chronic Hemorrhage during ; abruptio placenta; placenta previa (20 sources) Threatened miscarriage; Translations: [Threatened ] Onset: 3 Resolved: 4 11-09-2022 Episodic Mood disorders (2 sources) Depression; Translations: [Depression] Onset: 2 Chronic Mycoses (1 source) Candidiasis of vagina; Translations: [Vaginal candidiasis] Episodic Nonmalignant breast conditions (20 sources) Pain of breast; Translations: [Mastodynia] Onset: 6 04-26-2015 Episodic Nonspecific chest pain (20 sources) Chest pain; Translations: [Chest pain, unspecified] Episodic Nutritional deficiencies (1 source) Vitamin D deficiency; Translations: [Vitamin D deficiency, unspecified] Chronic Open wounds of extremities (1 source) Avulsion of toenail; Translations: [Unspecified open wound of unspecified toe(s) with damage to nail, initial encounter] Episodic Osteoarthritis (3 sources) Arthritis; Translations: [Unspecified osteoarthritis, unspecified site] Onset: 5 06-23-2024 Chronic Other complications of (1 source) Seizure disorder; Translations: [Epilepsy complicating , childbirth, or the puerperium, unspecified as to episode of care or not applicable] 12-18-2020 Episodic Other complications of (2 sources) Spotting per vagina in ; Translations: [Spotting complicating , unspecified trimester] 11-10-2022 Episodic Other complications of (12 sources) H/O: ; Translations: [Supervision of with other poor reproductive or obstetric history, unspecified trimester] Onset: 3 11-17-2022 Episodic Other complications of (1 source) Missed miscarriage; Translations: [Missed ] 11-24-2022 Episodic Other connective tissue disease (2 sources) Unspecified symptoms and signs involving the nervous system; Translations: [Unspecified symptoms and signs involving the nervous system] Onset: 9 Episodic Other connective tissue disease (3 sources) H/O: arthrodesis; Translations: [Arthrodesis status] Onset: 5 09-19-2024 Episodic Other connective tissue disease (1 source) Arthrodesis status; Translations: [Arthrodesis status] Onset: 5 Episodic Other diseases of bladder and urethra (20 sources) Overactive bladder; Translations: [Overactive bladder] Onset: 4 10-12-2013 Chronic Other diseases of kidney and ureters (12 sources) Kidney disease; Translations: [Disorder of kidney and ureter, unspecified] Onset: 3 11-17-2022 Episodic Other ear and sense organ disorders (1 source) Impacted cerumen in right ear; Translations: [Impacted cerumen, right ear] 10-16-2023 Episodic Other endocrine disorders (20 sources) Reactive hypoglycemia; Translations: [Other hypoglycemia] Onset: 2 01-29-2016 Chronic Other endocrine disorders (2 sources) Other hypoglycemia; Translations: [Other hypoglycemia] Onset: 6 Chronic Other female genital disorders (6 sources) Vaginal bleeding; Translations: [Abnormal uterine and vaginal bleeding, unspecified] 11-09-2022 Chronic Other female genital disorders (1 source) Heavy episode of vaginal bleeding; Translations: [Abnormal uterine and vaginal bleeding, unspecified] 12-03-2022 Chronic Other female genital disorders (4 sources) Abnormal vaginal bleeding; Translations: [Abnormal uterine and vaginal bleeding, unspecified] 12-15-2022 Chronic Other female genital disorders (2 sources) Abnormal uterine bleeding; Translations: [Abnormal uterine and vaginal bleeding, unspecified] 01-28-2023 Chronic Other female genital disorders (1 source) Abnormal uterine and vaginal bleeding, unspecified; Translations: [Episode of heavy vaginal bleeding] Onset: 3 Chronic Other gastrointestinal disorders (20 sources) Irritable bowel syndrome; Translations: [Irritable bowel syndrome without diarrhea] Onset: 0 07-23-2020 Chronic Other gastrointestinal disorders (16 sources) Diarrhea; Translations: [Diarrhea, unspecified] 10-17-2021 Episodic Other gastrointestinal disorders (1 source) Heartburn; Translations: [Heartburn] Episodic Other hereditary and degenerative nervous system conditions (2 sources) Restless legs syndrome; Translations: [Restless legs syndrome] Onset: 9 Chronic Other hereditary and degenerative nervous system conditions (20 sources) Restless legs; Translations: [Restless legs syndrome] Onset: 9 04-22-2018 Chronic Other injuries and conditions due to external causes (8 sources) Aspiration into respiratory tract; Translations: [Gastric contents in respiratory tract, part unspecified causing asphyxiation, initial encounter] 08-18-2022 Episodic Other injuries and conditions due to external causes (2 sources) Injury of head; Translations: [Unspecified injury of head, initial encounter] 01-06-2024 Episodic Other lower respiratory disease (1 source) Respiratory distress; Translations: [Acute respiratory distress] Episodic Other lower respiratory disease (18 sources) Pleuritic pain; Translations: [Pleurodynia] 06-07-2021 Episodic Other lower respiratory disease (1 source) Anterior pleuritic pain; Translations: [Pleurodynia] Episodic Other nervous system disorders (20 sources) Chronic pain syndrome; Translations: [Chronic pain syndrome] Onset: 9 04-22-2018 Chronic Other nervous system disorders (13 sources) Inherited autonomic nervous system disorder; Translations: [Other disorders of autonomic nervous system] 12-16-2021 Chronic Other nervous system disorders (4 sources) Other disorders of autonomic nervous system; Translations: [Unspecified disorder of autonomic nervous system] Chronic Other nervous system disorders (1 source) Paresthesia of hand ; Translations: [Paresthesia of skin] Episodic Other nervous system disorders (1 source) Postoperative pain ; Translations: [Other acute postprocedural pain] 12-17-2022 Episodic Other non-traumatic joint disorders (7 sources) Pain in left knee; Translations: [Acute pain of left knee] 09-27-2022 Episodic Other non-traumatic joint disorders (3 sources) Hip pain; Translations: [Pain in right hip] Onset: 5 09-28-2024 Episodic Other non-traumatic joint disorders (1 source) Pain in right hip; Translations: [Pain in right hip] Onset: 5 Episodic Other and delivery including normal (8 sources) First trimester ; Translations: [Encounter for supervision of normal , unspecified, first trimester] 11-09-2022 Episodic Other skin disorders (1 source) Ingrowing great toenail; Translations: [Ingrowing nail] 05-18-2024 Episodic Other skin disorders (2 sources) Ingrowing nail; Translations: [Ingrowing nail] Onset: 5 Episodic Other upper respiratory disease (1 source) Stridor; Translations: [Stridor] Episodic Other upper respiratory infections (1 source) Acute upper respiratory infection; Translations: [Acute upper respiratory infection, unspecified] Episodic Polyhydramnios and other problems of amniotic cavity (2 sources) premature rupture of membranes with onset of labor unknown; Translations: [ premature rupture of membranes, unspecified as to length of time between rupture and onset of labor, unspecified trimester] Onset: 1 Resolved: 1 Episodic Pulmonary heart disease (20 sources) Pulmonary arterial hypertension; Translations: [Secondary pulmonary arterial hypertension] Onset: 1 09-10-2020 Chronic Residual codes; unclassified (2 sources) Obstructive sleep apnea (adult) (pediatric); Translations: [Obstructive sleep apnea (adult) (pediatric)] Onset: 9 Chronic Residual codes; unclassified (3 sources) Sleep apnea; Translations: [Sleep apnea, unspecified] Onset: 5 06-23-2024 Chronic Residual codes; unclassified (2 sources) Hallucinations, unspecified; Translations: [Hallucinations, unspecified] Onset: 9 Episodic Residual codes; unclassified (1 source) H/O: miscarriage; Translations: [Personal history of other complications of , childbirth and the puerperium] 12-16-2022 Episodic Residual codes; unclassified (1 source) Postoperative state; Translations: [Other specified postprocedural states] 04-08-2023 Episodic Residual codes; unclassified (1 source) Pain; Translations: [Pain, unspecified] 06-23-2024 Episodic Residual codes; unclassified (2 sources) Personal history of other specified conditions; Translations: [History of psychogenic nonepileptic seizure] 01-06-2024 Episodic Residual codes; unclassified (1 source) Pain, unspecified; Translations: [Pain, unspecified] Onset: Episodic Spondylosis; intervertebral disc disorders; other back problems (20 sources) Thoracic spondylosis; Translations: [Spondylosis without myelopathy or radiculopathy, thoracic region] Onset: 0 07-23-2020 Chronic Spontaneous (1 source) Retained products after miscarriage; Translations: [Incomplete spontaneous without complication] 12-03-2022 Episodic Sprains and strains (13 sources) Sprain of ankle; Translations: [Sprain of unspecified ligament of right ankle, initial encounter] 12-10-2021 Episodic Superficial injury; contusion (2 sources) Contusion of hip; Translations: [Contusion of right hip, initial encounter] 01-06-2024 Episodic Unclassified (20 sources) Obstructive sleep apnea syndrome; Translations: [Obstructive sleep apnea (adult) (pediatric)] Onset: 6 10-26-2015 Chronic Unclassified (20 sources) Dissociative convulsions; Translations: [Conversion disorder with seizures or convulsions] Onset: 6 10-26-2015 Chronic Unclassified (1 source) Suspected COVID-19 virus infection 09-27-2020 Unclassified (1 source) Seizure disorder in 12-18-2020 Unclassified (1 source) Back pain in ; Translations: [Back pain in ] Onset: 3 Unclassified (3 sources) Low back pain, unspecified; Translations: [Low back pain, unspecified] Onset: 5 Past or Other Problems Problem Classification Problem Date Documented Da te Episodic/Chronic Blindness and vision defects (20 sources) Amblyopia of left eye; Translations: [Unspecified amblyopia, left eye] Onset: 7 12-27-2016 Episodic Conditions associated with dizziness or vertigo (5 sources) Benign paroxysmal positional vertigo; Translations: [Benign paroxysmal vertigo, unspecified ear] Onset: 4 12-29-2023 Episodic Early or threatened labor (3 sources) Premature delivery; Translations: [ labor with delivery, unspecified trimester, not applicable or unspecified] Onset: 1 Episodic Epilepsy; convulsions (20 sources) Seizure; Translations: [Dissociative convulsions] Onset: 6 12-18-2020 Episodic Comment on above: SEIZURE Fever of unknown origin (17 sources) Fever; Translations: [Fever, unspecified] Onset: 7 Resolved: 4 03-19-2016 Episodic Fluid and electrolyte disorders (20 sources) Hypokalemia; Translations: [Hypokalemia] Onset: 9 04-22-2018 Episodic Gastritis and duodenitis (20 sources) Gastritis; Translations: [Gastritis, unspecified, without bleeding] Onset: 4 11-02-2021 Episodic Headache; including migraine (20 sources) Headache; Translations: [Headache] Onset: 9 07-23-2020 Episodic Immunizations and screening for infectious disease (20 sources) Suspected disease caused by 2019-nCoV; Translations: [Contact with or exposure to other viral diseases] Onset: 1 09-27-2020 Episodic Inflammatory diseases of female pelvic organs (10 sources) Female pelvic inflammatory disease, unspecified; Translations: [Female pelvic inflammatory disease] Onset: 9 04-22-2018 Episodic Lymphadenitis (1 source) Head and neck lymphadenopathy; Translations: [Generalized enlarged lymph nodes] Episodic Medical examination/evaluation (2 sources) Encounter for other preprocedural examination; Translations: [Encounter for other preprocedural examination] Onset: 7 Episodic Menstrual disorders (17 sources) Irregular periods; Translations: [Irregular menstruation, unspecified] Onset: 2 Resolved: 4 06-17-2011 Chronic Mood disorders (2 sources) Mood disorders Onset: 9 04-25-2018 Nausea and vomiting (20 sources) Nausea; Translations: [Nausea] Onset: 4 Episodic Other acquired deformities (4 sources) Spondylolisthesis; Translations: [Spondylolisthesis, lumbosacral region] Onset: 5 06-16-2024 Episodic Other acquired deformities (3 sources) Spondylolisthesis, lumbosacral region; Translations: [Spondylolisthesis, lumbosacral region] Onset: 5 Episodic Other circulatory disease (16 sources) H/O: hypertension; Translations: [Personal history of other diseases of the circulatory system] Onset: 3 Resolved: 4 11-17-2022 Episodic Other complications of (16 sources) Supervision of with history of infertility, first trimester; Translations: [Supervision of high-risk with history of infertility] Onset: 3 Resolved: 4 11-17-2022 Episodic Other complications of (16 sources) Multigravida of advanced maternal age; Translations: [Supervision of elderly multigravida, unspecified trimester] Onset: 3 Resolved: 4 11-17-2022 Episodic Other complications of (16 sources) History of loop electrosurgical excision procedure; Translations: [Maternal care for other abnormalities of cervix, unspecified trimester] Onset: 3 Resolved: 4 11-17-2022 Episodic Other complications of (16 sources) Nausea and vomiting; Translations: [Vomiting of , unspecified] Onset: 3 Resolved: 4 11-17-2022 Episodic Other complications of (4 sources) Supervision of with other poor reproductive or obstetric history, unspecified trimester; Translations: [Supervision of high-risk with other poor reproductive history] Onset: 3 Resolved: 4 03-24-2023 Episodic Other complications of (1 source) Spotting complicating , unspecified trimester; Translations: [Spotting in early ] Onset: 3 Episodic Other connective tissue disease (20 sources) Fibromyalgia; Translations: [Fibromyalgia] Onset: 3 07-02-2022 Episodic Other connective tissue disease (20 sources) Spasm; Translations: [Cramp and spasm] Onset: 0 07-23-2020 Episodic Other connective tissue disease (1 source) Transient neurological symptoms; Translations: [Episode of transient neurologic symptoms] Episodic Other connective tissue disease (13 sources) Musculoskeletal pain; Translations: [Myalgia, other site] Onset: 4 01-20-2024 Episodic Other connective tissue disease (2 sources) Myalgia, other site; Translations: [Myalgia, other site] Onset: 4 Episodic Other gastrointestinal disorders (2 sources) Diarrhea, unspecified; Translations: [Diarrhea, unspecified] Onset: 5 Episodic Other lower respiratory disease (20 sources) H/O: asthma; Translations: [Personal history of other diseases of the respiratory system] Onset: 1 07-23-2020 Episodic Other lower respiratory disease (20 sources) Dyspnea; Translations: [Dyspnea, unspecified] Onset: 1 09-27-2020 Episodic Comment on above: SOB Other nervous system disorders (2 sources) Chronic pain syndrome; Translations: [Chronic pain syndrome] Onset: 9 04-22-2018 Episodic Other nervous system disorders (2 sources) Other acute postprocedural pain; Translations: [Acute post-operative pain] Onset: 3 Episodic Other nutritional; endocrine; and metabolic disorders (20 sources) H/O: endocrine disorder; Translations: [Personal history of other endocrine, nutritional and metabolic disease] Onset: 0 07-23-2020 Episodic Other screening for suspected conditions (not mental disorders or infectious disease) (20 sources) Electrocardiogram abnormal; Translations: [Abnormal electrocardiogram [ECG] [EKG]] Onset: 4 Episodic Other skin disorders (20 sources) Hirsutism; Translations: [Hirsutism] Onset: 2 06-17-2011 Episodic Other upper respiratory disease (20 sources) Vocal cord dysfunction; Translations: [Other diseases of vocal cords] Onset: 1 09-10-2020 Episodic Other upper respiratory disease (1 source) Other diseases of larynx; Translations: [Other diseases of larynx] Onset: 5 Episodic Ovarian cyst (20 sources) Cyst of left ovary; Translations: [Unspecified ovarian cyst, left side] Onset: 3 12-03-2022 Episodic Residual codes; unclassified (20 sources) Hallucinations; Translations: [Hallucinations, unspecified] Onset: 9 04-22-2018 Episodic Residual codes; unclassified (16 sources) History of placental abruption; Translations: [Personal history of other complications of , childbirth and the puerperium] Onset: 3 Resolved: 4 11-17-2022 Episodic Residual codes; unclassified (20 sources) H/O: depression; Translations: [Personal history of other complications of , childbirth and the puerperium] Onset: 3 11-17-2022 Episodic Residual codes; unclassified (19 sources) H/O: Disorder; Translations: [Personal history of other specified conditions] Onset: 3 11-17-2022 Episodic Residual codes; unclassified (4 sources) Transient alteration of awareness; Translations: [Transient alteration of awareness] Onset: 2 Resolved: 6 11-21-2015 Episodic Skin and subcutaneous tissue infections (5 sources) Cellulitis of left foot; Translations: [Cellulitis of left lower limb] Onset: 4 10-14-2023 Episodic Spondylosis; intervertebral disc disorders; other back problems (20 sources) Thoracic back pain; Translations: [Chronic thoracic back pain] Onset: 1 Episodic Syncope (20 sources) Syncope and collapse; Translations: [Loss of consciousness] Onset: 9 04-22-2018 Episodic Unclassified (1 source) MED EXAM 12-18-2020 Comment on above: MED EXAM Unclassified (14 sources) Onset: 4 Resolved: 4 11-20-2023 Unclassified (2 sources) Low back pain, unspecified; Translations: [Low back pain, unspecified] Onset: 5 Urinary tract infections (20 sources) Acute cystitis with hematuria; Translations: [Urinary tract infectious disease] Onset: 0 Resolved: 4 Episodic Viral infection (20 sources) Verruca vulgaris; Translations: [Viral wart, unspecified] Onset: 0 09-20-2009 Episodic NEGATED: Highlighted row has not occurred!Residual codes; unclassified (20 sources) Disease Episodic Results Test Name Value Interpretation Reference Range Facility Inital Evaluation (1) - PTon 09-29-2024 Inital Evaluation (1) - PT [facility] [address] [place] [address] / REHABILITATION SERVICES INITIAL EVALUATION MR#: [id number] Acct: [id number] Name: KENDALL VASQUES Rep #: [id number] : 1985 38 From: Jose Daniel Andersen PT, Cert. T, OCS Referring Dr.: Dr. Zuleima Thomas DO Status: REG R Insurance: [employer] Patient's Visit Information Visit Information Visit Information: KENDALL VASQUES is a 38 year old F referred to Physical Therapy by Dr. Zuleima Thomas DO with a diagnosis of S/P ARTHODESIS. Date of Evaluation: 09/29/24 Physical Therapist: Jose Daniel Andersen PT, Cert T, OCS Visit Plan Frequency: 2x /Week Duration: 4 Weeks Plan: S/P LUMBAR FUSION June LIFTING RESTRICTION 15# BRACE CANE BE REMOVED PT INTERVENTIONS LE FLEXABILITY ,DLS ,POSTURAL EX'S ,BLE STRENGTHENING ,ACTIVITY MODIFICATION AND GRADED LUMBAR ROM ROMEL Subjective Subjective: This 38 y/o female presents to physical therapy with s/p lumbar fusion L4-5 with cage and screws ,anterior approach June 23 at [place] by Dr Thomas . Initially d/c next day with lumbar brace with fww ,no BLT ,and lifting no more 5#. Patient weaned from fww. Seen DR Last Thursday increase lifting restriction 15# ,increase walking up tp 2 miles . Patient had incident getting out tube September felt pop of hip thus had MRI hip - and x-rays looked good of back. Patient was on oxycodone ,gabapentin ,muscle relaxer . Only taking muscle relaxer. Patient sees pain management 2 years. Patient MRI prior to surgery HNP ,DDD/stenosis. Currently ,right LS/SI radiates to thigh intermittent. Aggravating factors bending ,twisting sitting ,alleviating walking . Pain affects sleeping. Coughing/sneezing -. C/O tingling thigh. BOWEL/BLADDER -. Patient able to dress .bath ,spouse does cooking /cleaning assist with some housework. Patient condition affects QOL and function/job demands. Patient goals to decrease pain and work. SOCAIL: VOCATION: plan to find job Pain Right Back: Pain Intensity (Out of 10): 8 Pain Intensity Range: 10 Objective Objective: POSTURE: mild forward posture NEURO: c/o tingling thigh right SKIN: incision well approximate abdominal OBSERVATION: lumbar brace GAIT: reciprocal pattern slow karla guarded gait PALAPTION: tender right SI/LS FLEXABILITY: hamstrings mod tight MMT: quad/hams/hip 3+/5 ,ankle 4-/5 LUMBAR ROM: flexion mod/severe ,extension mod/severe , side glides mod loss Special Tests L/S Slump test left side: Positive L/S Slump test right side: Positive L/S Left Straight Leg Raise: Negative L/S Right Straight Leg Raise: Negative Balance/Special Test Scores Oswestry Low Back Score: 32 Goals Goal 1:: Patient to be I with HEP for back Goal Time Frame: 4-6 Weeks Goal 2:: Patient to improve lumbar ROM for function of recovery for ADLS Goal Time Frame: 4-6 Weeks Goal 3:: Patient to improve back oswestry score by 5 points to improve QOL Goal Time Frame: 4-6 Weeks Goal 4:: Patient to improve strength BLE -quads/hams/hip/ankle to good to improve gait Goal Time Frame: 4-6 Weeks Goal 5:: Patient to normalize gait community distances Goal Time Frame: 4-6 Weeks Rehabilitation Potential Physical Therapy Diagnosis: This patient underwent s/p lumbar fusion L4-5 with cage and screws ,anterior approach June 23 at [place] with current impairments with weakness in legs ,poor lumbar ROM ,pain ,decrease gait impairs ADL'S thus benefit from skilled PT Rehabilitation Potential: Good Anticipated Interventions Patient/Client Instruction: Educate patient on: Condition and Plan of Care For the Purpose of:: To decrease pain, To improve muscle performance and motor function, To improve ability to perform ADL's, To increase tolerance to activity/condition/positio n, To improve ability of physical actions for home/community/work/leisur e, To improve health of tissue, To decrease soft tissue restriction, To increase flexibility/ROM, To improve endurance and To improve tolerance to ADL's Therapeutic Exercise to Include: Strength training, Endurance training, Postural training, Flexibilty training and Dynamic Lumbar Stabilization Comment: BLE QUADS/HAMS/HIP For the Purpose of:: To decrease pain, To increase ROM, To improve muscle performance and motor function, To improve ability to perform ADL's, To increase tolerance to activity/condition/positio n, To improve ability of physical actions for home/community/work/leisur e, To improve health of tissue, To decrease soft tissue restriction, To increase flexibility/ROM and To improve balance TENS: Yes IF ES: Yes Cryotherapy (ice pack, ice massage): Yes Thermo therapy (hot pack): Yes For the Purpose of:: To decrease pain and To decrease swelling/inflammation Text: Thank you for the opportunity to nadia (more content not included)... Normal [facility] MR HIP RIGHT WO IV CONTRASTo n 09-28-2024 MR HIP RIGHT WO IV CONTRAST Interpreted By: Hilario Whitfield, STUDY: MR HIP RIGHT WO IV CONTRAST; 09/28/2024 7:33 am INDICATION: Signs/Symptoms:PAIN IN RIGHT HIP. ,M25.551 Pain in right hip COMPARISON: None. ACCESSION NUMBER(S): [id number] ORDERING CLINICIAN: ZULEIMA THOMAS TECHNIQUE: Multiplanar multisequence MR imaging of the pelvis and right hip was performed following standard protocol without intravenous administration of gadolinium based contrast. FINDINGS: PELVIS Pelvic ring: Within normal limits. Viscera: Within normal limits. Soft tissues: Within normal limits. RIGHT HIP/PROXIMAL FEMUR Femur: Within normal limits. Hip joint: No effusion or malalignment. Labrum: Within normal limits. Soft tissues (bee-articular): No abnormal masses or fluid collections. LEFT HIP/PROXIMAL FEMUR Femur: Within normal limits. Hip joint: No effusion or malalignment. Labrum: Grossly unremarkable although study not tailored for evaluation. Soft tissues (bee-articular): No abnormal masses or fluid collections. Additional comments: Anterior interbody fusion L5-S1. IMPRESSION: Unremarkable MRI of the pelvis and right hip MACRO: None Signed by: Hilario Whitfield 09/28/2024 10:05 AM Dictation workstation: [id number] [facility] MR Hip - right WO contraston 09-28-2024 Unremarkable MRI of the pelvis and right hip MACRO: None Signed by: Hilario Whitfield 09/28/2024 10:05 AM Dictation workstation: [id number] [facility] Interpreted By: Hilario Hector i, STUDY: MR HIP RIGHT WO IV CONTRAST; 09/28/2024 7:33 am INDICATION: Signs/Symptoms:PAIN IN RIGHT HIP. ,M25.551 Pain in right hip COMPARISON: None. ACCESSION NUMBER(S): [id number] ORDERING CLINICIAN: ZULEIMA THOMAS TECHNIQUE: Multiplanar multisequence MR imaging of the pelvis and right hip was performed following standard protocol without intravenous administration of gadolinium based contrast. FINDINGS: PELVIS Pelvic ring: Within normal limits. Viscera: Within normal limits. Soft tissues: Within normal limits. RIGHT HIP/PROXIMAL FEMUR Femur: Within normal limits. Hip joint: No effusion or malalignment. Labrum: Within normal limits. Soft tissues (bee-articular): No abnormal masses or fluid collections. LEFT HIP/PROXIMAL FEMUR Femur: Within normal limits. Hip joint: No effusion or malalignment. Labrum: Grossly unremarkable although study not tailored for evaluation. Soft tissues (bee-articular): No abnormal masses or fluid collections. Additional comments: Anterior interbody fusion L5-S1. MMODAL Hilario Whitfield MD - 09/28/2024 Interpreted By: Hilario Whitfield, STUDY: MR HIP RIGHT WO IV CONTRAST; 09/28/2024 7:33 am INDICATION: Signs/Symptoms:PAIN IN RIGHT HIP. ,M25.551 Pain in right hip COMPARISON: None. ACCESSION NUMBER(S): [id number] ORDERING CLINICIAN: ZULEIMA THOMAS TECHNIQUE: Multiplanar multisequence MR imaging of the pelvis and right hip was performed following standard protocol without intravenous administration of gadolinium based contrast. FINDINGS: PELVIS Pelvic ring: Within normal limits. Viscera: Within normal limits. Soft tissues: Within normal limits. RIGHT HIP/PROXIMAL FEMUR Femur: Within normal limits. Hip joint: No effusion or malalignment. Labrum: Within normal limits. Soft tissues (bee-articular): No abnormal masses or fluid collections. LEFT HIP/PROXIMAL FEMUR Femur: Within normal limits. Hip joint: No effusion or malalignment. Labrum: Grossly unremarkable although study not tailored for evaluation. Soft tissues (bee-articular): No abnormal masses or fluid collections. Additional comments: Anterior interbody fusion L5-S1. IMPRESSION: Unremarkable MRI of the pelvis and right hip MACRO: None Signed by: Hilario Whitfield 09/28/2024 10:05 AM Dictation workstation: [id number] [facility] Work Phone: Radiology Study observation (narrative) [facility] Work Phone: MR Hip - right WO contrastOr dered By: Hilario Whitfield on 09-28-2024 [facility] Work Phone: MR LUMBAR SPINE W AND WO IV CONTRASTon 09-19-2024 MR LUMBAR SPINE W AND WO IV CONTRAST Interpreted By: Carly Powers, STUDY: MR LUMBAR SPINE W AND WO IV CONTRAST INDICATION: Signs/Symptoms:see dx COMPARISON: CT lumbar spine 06/16/2024. Lumbar spine MRI 05/20/2024. ACCESSION NUMBER(S): [id number] ORDERING CLINICIAN: ZULEIMA THOMAS TECHNIQUE: Multiplanar multisequence MRI of the lumbar spine was performed before and after the intravenous administration of contrast according to standard protocol. 20 ml of Dotarem was administered (the balance of single use vial(s) has/have been discarded). FINDINGS: ALIGNMENT: The alignment is normal. VERTEBRAE: Status post L5-S1 anterior lumbar interbody fusion. Vertebral body heights are maintained. Marrow signal is preserved. No acute fracture or aggressive osseous lesion. DISCS: Disc desiccation at L4-5 with annular fissure. Disc heights are maintained. CONUS MEDULLARIS AND CAUDA EQUINA: The conus medullaris terminates at L2. There is normal appearance of the conus medullaris and cauda equina. ENHANCEMENT: There is no evidence of abnormal enhancement. PARAVERTEBRAL SOFT TISSUES AND VISUALIZED RETROPERITONEUM: The visualized paravertebral soft tissues appear within normal limits. EVALUATION OF INDIVIDUAL LEVELS: L1-2: No disc herniation spinal canal or neuroforaminal stenosis. L2-3: No disc herniation spinal canal or neuroforaminal stenosis. L3-4: No disc herniation spinal canal or neuroforaminal stenosis. L4-5: Shallow disc bulge containing central annular fissure with mild facet hypertrophy and infolding of ligamentum flavum. Mild narrowing of bilateral foramina. Spinal canal is patent. L5-S1: Status post fusion. Interval resolution of previously noted anterolisthesis and disc bulge. Spinal canal and bilateral foramina are patent. LIMITED EVALUATION OF UPPER SACRUM AND SACROILIAC JOINTS: Unremarkable. IMPRESSION: Expected postoperative change status post L5-S1 anterior interbody fusion. Interval resolution of anterolisthesis and disc bulge at this level without canal or foraminal stenosis. No fluid collection or abnormal enhancement at the surgical site. Redemonstration of shallow disc bulge containing annular fissure at L4-5. Remaining levels of the lumbar spine are unremarkable. Signed by: Carly Powers 09/20/2024 7:52 AM Dictation workstation: [id number] [facility] Abdomen/Pelvis without Conto n 08-24-2024 Abdomen/Pelvis without Cont [facility] Imaging Services [address] [place] [id number] Abdomen/Pelvis without Cont MR#: [id number] Acct: [id number] Name: KENDALL VASQUES Rep #: [id number] : 1985 F 38 From: Gino nguyen MD PCP: MÓNICA Garcia Status: REG ER Study: Abdomen/Pelvis without Cont Date of Exam: 11/10 Exam# [id number] Ordering Dr: Guillermo Gilliland DO PROCEDURE: ABDOMEN/PELVIS WITHOUT CONT 08/24/2024 REASON FOR EXAM: LEFT FLANK PAIN, HX OF 6 MM STONE TECHNIQUE: ABDOMEN/PELVIS WITHOUT CONT Noncontrast technique limits evaluation of the abdominal and pelvic viscera. Coronal and Sagittal reconstruction series were provided. One or more dose reduction techniques were used (e.g., Automated exposure control, adjustment of the mA and/or kV according to patient size, use of iterative reconstruction technique). RADIATION DOSE SUMMARY: CTDlvol: 7.04 mGy DLP: 357.03 mGycm COMPARISON: Prior study dated June 27, 2024. FINDINGS: Lung bases: Lung bases are clear. Liver: Normal size. No obvious mass. Gallbladder: No evidence of gallstones. Spleen: Normal size. Pancreas: Normal size. No surrounding inflammation. Adrenals: Unremarkable Kidneys: 2.5 mm non obstructive calculus in the lower pole calyx of the left kidney. Punctate calculus in the lower pole calyx of the right kidney. No evidence of hydronephrosis. Bladder: Unremarkable. Reproductive Organs: Prior hysterectomy. Adnexal regions are unremarkable. Status post right oophorectomy. Bowel: Unremarkable Appendix: Unremarkable Lymph nodes: Unremarkable. Vasculature: The abdominal aorta and IVC contours are normal. Noncontrast technique limits evaluation. Peritoneum / Retroperitoneum: Unremarkable Bones: Prior anterior fusion at the L5-S1 level. CT/Abdomen/Pelvis without Cont IMPRESSION: 2.5 mm nonobstructive calculus in the lower pole calyx of the left kidney. No evidence of obstructive uropathy at this time. Reading Location: [place] [address] CC: MÓNICA Cuevas; Dr. Guillermo Gilliland, [employer]er: Signed Normal [facility] Absolute lymphocyte countOrd ered By: Guillermo Gilliland on 08-24-2024 Lymphocytes Auto (Unsp spec) [#/Vol] 2.16 10*3/uL 0.83-4.51 [facility] Absolute neutrophil countOrd ered By: Guillermo Gilliland on 08-24-2024 Neutrophils (Bld) [#/Vol] 4.5 10*3/uL 2.0-7.7 [facility] Anion gap in Serum or Plasma Ordered By: Guillermo Gilliland on 08-24-2024 Anion gap [Moles/Vol] 12 mmol/L 5-15 [facility] Automated lymphocyte count a s percentage of total leukocytesOrdered By: Guillermo Gilliland on 08-24-2024 Lymphocytes/100 WBC Auto (Unsp spec) 29.7 % 19-41 [facility] BUN/creatinine ratioOrdered By: Guillermo Gilliland on 08-24-2024 Urea nitrogen/Creatinine [Mass ratio] 16.5 mg/mg 10-20 [facility] Basophil percentageOrdered B y: Guillermo Gilliland on 08-24-2024 Basophils/100 WBC (Bld) 0.4 % 0-1 [facility] Bilirubin Test strip Ql (U)O rdered By: Guillermo Gilliland on 08-24-2024 Bilirubin Ql (U) Negative Negative [facility] Bilirubin, totalOrdered By: Guillermo Gilliland on 08-24-2024 Bilirubin [Mass/Vol] 0.26 mg/dL 0.00-1.30 [facility] CBC W/Diff, Automatedon Absolute Lymph 2.16 X10 3/uL Normal 0.83-4.51 [facility] Comment on above: Performed By: #### L 100.0100, L700.6800, L500.4050, L501.2450 #### [facility] [address] [place], [address] Absolute Neut 4.5 X10 3/uL Normal 2.0-7.7 [facility] Comment on above: Performed By: #### L 100.0100, L700.6800, L500.4050, L501.2450 #### [facility] [address] [place], [address] Basophils/100 WBC (Bld) 0.4 % Normal 0-1 [facility] Comment on above: Performed By: #### L 100.0100, L700.6800, L500.4050, L501.2450 #### [facility] [address] [place], [address] Eosinophils/100 WBC (Bld) 0.8 % Normal 0-5 [facility] Comment on above: Performed By: #### L 100.0100, L700.6800, L500.4050, L501.2450 #### [facility] [address] [place], [address] Erythrocyte distribution width (RBC) [Ratio] 13.2 % Normal 11.6-14.6 [facility] Comment on above: Performed By: #### L 100.0100, L700.6800, L500.4050, L501.2450 #### [facility] [address] [place], [address] Hematocrit (Bld) [Volume fraction] 35.1 % Low 37-47 [facility] Comment on above: Performed By: #### L 100.0100, L700.6800, L500.4050, L501.2450 #### [facility] [address] [place], [address] Hemoglobin (Bld) [Mass/Vol] 11.4 g/dL Low 12.0-15.0 [facility] Comment on above: Performed By: #### L 100.0100, L700.6800, L500.4050, L501.2450 #### [facility] [address] [place], [address] IG% 0.400 Normal 0.0-0.9 [facility] Comment on above: Result Comment: IG% - Immature Granulocytes (promyelocytes, myelocytes and metamyelocytes) > 1% indicates that a LEFT SHIFT is Present. Performed By: #### L 100.0100, L700.6800, L500.4050, L501.2450 #### [facility] [address] [place], [address] Lymphocytes/100 WBC (Bld) 29.7 % Normal 19-41 [facility] Comment on above: Performed By: #### L 100.0100, L700.6800, L500.4050, L501.2450 #### [facility] [address] [place], [address] MCH (RBC) [Entitic mass] 30.3 pg Normal 27.0-32.0 [facility] Comment on above: Performed By: #### L 100.0100, L700.6800, L500.4050, L501.2450 #### [facility] [address] [place], [address] MCHC (RBC) [Mass/Vol] 32.5 g/dL Normal 32-36 [facility] Comment on above: Performed By: #### L 100.0100, L700.6800, L500.4050, L501.2450 #### [facility] [address] [place], [address] MCV (RBC) [Entitic vol] 93.4 fL Normal 81-99 [facility] Comment on above: Performed By: #### L 100.0100, L700.6800, L500.4050, L501.2450 #### [facility] [address] [place], [address] Monocytes/100 WBC (Bld) 7.0 % Normal 0-10 [facility] Comment on above: Performed By: #### L 100.0100, L700.6800, L500.4050, L501.2450 #### [facility] [address] [place], [address] Neutrophils/100 WBC (Bld) 61.7 % Normal 47-70 [facility] Comment on above: Performed By: #### L 100.0100, L700.6800, L500.4050, L501.2450 #### [facility] [address] [place], [address] Nucleated RBC (Bld) [#/Vol] 0 10*3/uL Normal 0-5 [facility] Comment on above: Performed By: #### L 100.0100, L700.6800, L500.4050, L501.2450 #### [facility] [address] [place], [address] Platelet mean volume (Bld) [Entitic vol] 10.8 fL Normal 6.2-12.0 [facility] Comment on above: Performed By: #### L 100.0100, L700.6800, L500.4050, L501.2450 #### [facility] [address] [place], [address] Platelets (Bld) [#/Vol] 181 10*3/uL Normal 150-450 [facility] Comment on above: Performed By: #### L 100.0100, L700.6800, L500.4050, L501.2450 #### [facility] [address] [place], [address] RBC (Bld) [#/Vol] 3.76 10*6/uL Low 4.2-5.[address] [facility] Comment on above: Performed By: #### L 100.0100, L700.6800, L500.4050, L501.2450 #### [facility] [address] [place], [address] RDW SD 44.8 fl High 35.1-43.9 [facility] Comment on above: Performed By: #### L 100.0100, L700.6800, L500.4050, L501.2450 #### [facility] [address] [place], [address] WBC (Bld) [#/Vol] 7.3 10*3/uL Normal 4.4-11.0 [facility] Comment on above: Performed By: #### L 100.0100, L700.6800, L500.4050, L501.2450 #### [facility] [address] [place], [address] Carbon dioxide, total [Moles /volume] in Central venous bloodOrdered By: Guillermo Gilliland on 08-24-2024 CO2 [Moles/Vol] 20.6 mmol/L Low 21.0-32.0 [facility] Chloride assayOrdered By: Ritesh Gilliland on 08-24-2024 Chloride [Moles/Vol] 107 mmol/L 98-108 [facility] Comprehensive Metabolic Prof ilon 08-24-2024 Albumin [Mass/Vol] 4.1 g/dL Normal 3.5-5.0 [facility] Comment on above: Performed By: #### L 100.0100, L700.6800, L500.4050, L501.2450 ####[facility] [address] [place], [address] Albumin/Globulin [Mass ratio] 1.4 {ratio} Normal 0.9-2.4 [facility] Comment on above: Performed By: #### L 100.0100, L700.6800, L500.4050, L501.2450 ####[facility] [address] [place], [address] ALK PHOS 71 U/L Normal 35-104 [facility] Comment on above: Performed By: #### L 100.0100, L700.6800, L500.4050, L501.2450 ####[facility] [address] [place], [address] ALT [Catalytic activity/Vol] 13 U/L Normal <=34 [facility] Comment on above: Performed By: #### L 100.0100, L700.6800, L500.4050, L501.2450 ####[facility] [address] [place], [address] AST [Catalytic activity/Vol] 25 U/L Normal <=31 [facility] Comment on above: Result Comment: Hemo lysis present, Results??could be affected. ?? Performed By: #### L 100.0100, L700.6800, L500.4050, L501.2450 ####[facility] [address] [place], [address] Bilirubin [Mass/Vol] 0.26 mg/dL Normal 0.00-1.30 [facility] Comment on above: Performed By: #### L 100.0100, L700.6800, L500.4050, L501.2450 ####[facility] [address] [place], [address] BUN/CRE 16.5 RATIO Normal 10-20 [facility] Comment on above: Performed By: #### L 100.0100, L700.6800, L500.4050, L501.2450 ####[facility] [address] [place], [address] Calcium [Mass/Vol] 9.3 mg/dL Normal 7.6-11.0 [facility] Comment on above: Performed By: #### L 100.0100, L700.6800, L500.4050, L501.2450 ####[facility] [address] [place], [address] Chloride [Moles/Vol] 107 mmol/L Normal 98-108 [facility] Comment on above: Performed By: #### L 100.0100, L700.6800, L500.4050, L501.2450 ####[facility] [address] [place], [address] CO2 [Moles/Vol] 20.6 mmol/L Low 21.0-32.0 [facility] Comment on above: Performed By: #### L 100.0100, L700.6800, L500.4050, L501.2450 ####[facility] [address] [place], [address] Creatinine [Mass/Vol] 0.92 mg/dL Normal 0.70-1.20 [facility] Comment on above: Performed By: #### L 100.0100, L700.6800, L500.4050, L501.2450 ####[facility] [address] [place], [address] ECRCL 80.92 ml/min Normal 50-250 [facility] Comment on above: Performed By: #### L 100.0100, L700.6800, L500.4050, L501.2450 ####[facility] [address] [place], [address] GAP 12 Normal 5-15 [facility] Comment on above: Performed By: #### L 100.0100, L700.6800, L500.4050, L501.2450 ####[facility] [address] [place], [address] GFR/1.73 sq M.predicted among non-blacks MDRD (S/P/Bld) [Vol rate/Area] 82 mL/min/{1.73_m2} Normal >60 [facility] Comment on above: Result Comment: mL/m in/1.73m2 CKD-EPI Creatinine Equation (2020) Performed By: #### L 100.0100, L700.6800, L500.4050, L501.2450 ####[facility] [address] [place], [address] Globulin (S) [Mass/Vol] 2.9 g/dL Normal 2.2-4.2 [facility] Comment on above: Performed By: #### L 100.0100, L700.6800, L500.4050, L501.2450 ####[facility] [address] [place], [address] Glucose [Mass/Vol] 92 mg/dL Normal 70-99 [facility] Comment on above: Performed By: #### L 100.0100, L700.6800, L500.4050, L501.2450 ####[facility] [address] [place], [address] Potassium [Moles/Vol] 4.1 mmol/L Normal 3.3-5.1 [facility] Comment on above: Result Comment: Hemo lysis present, Results??could be affected. ?? Performed By: #### L 100.0100, L700.6800, L500.4050, L501.2450 ####[facility] [address] [place], [address] Sodium [Moles/Vol] 139 mmol/L Normal 133-145 [facility] Comment on above: Performed By: #### L 100.0100, L700.6800, L500.4050, L501.2450 ####[facility] [address] [place], [address] T PROT 7.0 g/dL Normal 5.9-8.4 [facility] Comment on above: Performed By: #### L 100.0100, L700.6800, L500.4050, L501.2450 ####[facility] [address] [place], [address] Urea nitrogen [Mass/Vol] 15 mg/dL Normal 4-19 [facility] Comment on above: Performed By: #### L 100.0100, L700.6800, L500.4050, L501.2450 ####[facility] [address] [place], [address] Emergency Department Summary on 08-24-2024 Emergency Department Summary [facility] Medical Records Department [address] [place] [address] Emergency Department Summary 08/24/24 MR#: [id number] Acct: [id number] Name: KENDALL VASQUES Rep #: [id number] : 1985 38 From: Guillermo Gilliland DO PCP: MÓNICA Garcia Status:REG ER Location: ED HPI History of Present Illness Chief Complaint: Flank Pain Narrative Narrative: Patient is a 38-year-old female with past medical history of GERD, asthma, previous kidney stones as required lithotripsy, IBS, hypoglycemia, depression, stress-induced seizure, hypertension, recent spinal fusion back in May L4-L5 who presents to the emergency department chief complaint of left flank pain. Patient notes that she was recently diagnosed last week at [facility] with a left- sided kidney stone measuring 6 mm nonobstructing and was sent home with [facility]. She states that she was seeing her kidney doctor at that point time and was closer for her to go there as opposed to here in the emergency department. Patient states that she lives in [place] and follows with urologist Dr. Potter and she states that she called the office however states that they were not taking appointments until September as they are transitioning to [place]. [facility] Medical History History of renal disease Gastric reflux Asthma PONV (postoperative nausea and vomiting) Leg cramps History of ventricular septal defect Vomiting Seizure BPPV (benign paroxysmal positional vertigo) Difficult intravenous access Non-smoker Dysautonomia-like disorder Nephrolithiasis History of echocardiogram Wears glasses Anemia Easy bruising Restless legs Back pain Seizures Dietary restriction History of IBS Shortness of breath on exertion History of edema History of irregular heartbeat Hypoglycemia Anxiety Depression Migraines Kidney disease Hypertension Home Medications ???Medication ???Instructions ???Recorded ???Last Taken ???Type albuterol sulfate 90 mcg/actuation 1 - 2 puff inhalation Q6H PRN [place] N 03/22/13 05/24/14 08:49 History aerosol inhaler (Ventolin HFA) Asthma trazodone 150 mg PO/SL QHS 12/31/20 04/17/24 History diphenhydramine 25 1 tab PO QHS 10/22/21 04/17/24 His tory mg-acetaminophen 500 mg tablet (Tylenol PM Extra Strength) spironolactone 25 mg tablet 25 mg PO QDAY 07/01/23 04/17/24 Hi story hydrochlorothiazide 12.5 mg capsule 12.5 mg PO QDAY 10/05/23 History potassium citrate 10 mEq (1,080 10 meq PO TID 10/05/23 04/17/24 Hi story mg) tablet,extended release vortioxetine 10 mg tablet 10 mg PO QDAY 10/05/23 04/17/24 Hi story (Trintellix) ondansetron 4 mg disintegrating 4 mg PO Q8H PRN PRN Nausea #10 tab s 12/29/23 04/17/24 Rx tablet tizanidine 2 mg tablet 8 mg PO TID PRN PRN muscle 4 04/17/24 History spasticity pantoprazole 40 mg tablet,delayed 40 mg PO BID N/V, Gastritis #60 0 02/25/24 04/18/24 Rx release tabs metoclopramide HCl 10 mg tablet 10 mg PO 4X/DAY PRN nausea and 04/10/24 Rx (Reglan) vomiting #28 tabs buspirone 5 mg tablet 5 mg PO TID PRN anxiety 04/04/24 0 04/16/24 History ciprofloxacin HCl 500 mg tablet 500 mg PO BID 5 days #10 tabs 11/10 Unknown Rx ondansetron 4 mg disintegrating 4 mg PO Q6H PRN nausea and 5 Unknown Rx tablet vomiting #20 tabs oxycodone 5 mg capsule 5 mg PO Q6H PRN pain 2 days #8 cap s 08/24/24 Unknown Rx Allergy/AdvReac Type Severity Reaction Status Date / Time amoxicillin Allergy Severe hives Verified 08/24/24 11:16 baclofen Allergy Severe incontinenc Verified 08/24/24 11:16 e codeine Allergy Hives Verified 08/24/24 11:16 metronidazole (From Flagyl) Allergy Shortness Verified 08/24/24 11:16 of breath morphine Allergy Hives Verified 08/24/24 11:16 shellfish derived Allergy Angioedema Verified 08/24/24 11:16 topiramate (From Topamax) Allergy Other Verified 08/24/24 11:16 tramadol AdvReac Severe seizures Verified 08/24/24 11:16 adhesive AdvReac Rash Verified 08/24/24 11:16 NSAIDS (Non-Steroidal AdvReac PT UNSURE Verified 08/24/24 11:16 Anti-Inflamma OF REACTION Family History Father No cardiac disease Mother No cardiac disease Other Arthritis Asthma Blood clot in vein Bowel disease Breast cancer CVA (cerebral vascular accident) Cervical cancer Depression Diabetes High cholesterol Hypertension Seizures Suicidal ideation Surgical History History of spinal fusion Hx of dilation and curettage History of radiofrequency ablation (RFA) of nerve of lumbar spine H/O: hysterectomy Hx of laparoscopy S/P removal of right ovary S/P tonsil (more content not included)... Normal [facility] Eosinophil percentageOrdered By: Guillermo Gilliland on 08-24-2024 Eosinophils/100 WBC (Bld) 0.8 % 0-5 [facility] Erythrocyte distribution wid th ratioOrdered By: Guillermo Gilliland on 08-24-2024 Erythrocyte distribution width (RBC) [Ratio] 13.2 % 11.6-14.6 [facility] Erythrocyte distribution wid th standard deviationOrdered By: Guillermo Gilliland on 08-24-2024 Erythrocyte distribution width (RBC) [Ratio] 44.8 fl High 35.1-43.9 [facility] Glomerular filtration rate ( GFR) estimation/1.73 sq m using serum, plasma, or whole bOrdered By: Guillermo Gilliland on 08-24-2024 GFR/1.73 sq M.predicted among non-blacks MDRD (S/P/Bld) [Vol rate/Area] 82 mL/min/{1.73_m2} >60 [facility] Comment on above: mL/min/1.73m2 CKD-EP I Creatinine Equation (2020) Hematocrit Auto (Bld) [Volum e fraction]Ordered By: Guillermo Gilliland on 08-24-2024 Hematocrit (Bld) [Volume fraction] 35.1 % Low 37-47 [facility] Hemoglobin measurementOrdere d By: Guillermo Gilliland on 08-24-2024 Hemoglobin (Bld) [Mass/Vol] 11.4 g/dL Low 12.0-15.0 [facility] Immature granulocytes/100 WB C Auto (Bld)Ordered By: Guillermo Gilliland on 08-24-2024 Immature granulocytes/100 WBC (Bld) 0.400 % 0.0-0.9 [facility] Comment on above: IG% - Immature Granu locytes (promyelocytes, myelocytes and metamyelocytes) > 1% indicates that a LEFT SHIFT is Present. Ketones Test strip Ql (U)Ord ered By: Guillermo Gilliland on 08-24-2024 Ketones Ql (U) 5 mg/dl High Negative [facility] Laboratory - Chemistry and C hemistry - challengeOrdered By: Guillermo Gilliland on 08-24-2024 AST [Catalytic activity/Vol] 25 U/L <32 [facility] Comment on above: Hemolysis present, R esults could be affected. Lipaseon 08-24-2024 Lipase [Catalytic activity/Vol] 31 U/L Normal 13-75 [facility] Comment on above: Result Comment: Plea se note: LIPASE revised reference range effective 22. New Lipase methodology. Expected to produce lower values than the previous assay method. NEW Reference Range: 13 - 75 U/L Performed By: #### L 100.0100, L700.6800, L500.4050, L501.2450 #### [facility] Laboratory [facility] [address] [place], [place], [address] Lipase measurementOrdered By : Guillermo Gilliland on 08-24-2024 Lipase [Catalytic activity/Vol] 31 U/L 13-75 [facility] Comment on above: Please note:LIPASE r evised reference range effective 22. New Lipase methodology. Expected to produce lower values than the previous assay method. NEW Reference Range: 13 - 75 U/L MCV (mean corpuscular volume ) determinationOrdered By: Guillermo Gilliland on 08-24-2024 MCV (RBC) [Entitic vol] 93.4 fL 81-99 [facility] Mean corpuscular hemoglobin (MCH) determinationOrdered By: Guillermo Gilliland on 08-24-2024 MCH (RBC) [Entitic mass] 30.3 pg 27.0-32.0 [facility] Mean corpuscular hemoglobin concentration (MCHC) determinationOrdered By: Guillermo Gilliland on 08-24-2024 MCHC (RBC) [Mass/Vol] 32.5 g/dL 32-36 [facility] Mean platelet volume determi nationOrdered By: Guillermo Gilliland on 08-24-2024 Platelet mean volume (Bld) [Entitic vol] 10.8 fL 6.2-12.0 [facility] Microscopic analysis of urin e for red blood cells (RBC)Ordered By: Guillermo Gilliland on 08-24-2024 Microscopic analysis of urine for red blood cells (RBC) 5-10 SEEN /hpf 0-5 [facility] Monocyte percentageOrdered B y: Guillermo Gilliland on 08-24-2024 Monocytes/100 WBC (Bld) 7.0 % 0-10 [facility] Mucus LM Ql (Urine sed)Order ed By: Guillermo Gilliland on 08-24-2024 Mucus Ql (Urine sed) 0 SEEN /hpf [facility] Neutrophil percentageOrdered By: Guillermo Gilliland on 08-24-2024 Neutrophils/100 WBC (Bld) 61.7 % 47-70 [facility] Nitrite Test strip Ql (U)Ord ered By: Guillermo Gilliland on 08-24-2024 Nitrite Ql (U) Negative Negative [facility] Nucleated red blood cell per centageOrdered By: Guillermo Gilliland on 08-24-2024 Nucleated RBC/100 WBC (Bld) [Ratio] 0 % 0-5 [facility] Platelet countOrdered By: Ritesh Gilliland on 08-24-2024 Platelets (Bld) [#/Vol] 181 10*3/uL 150-450 [facility] Potassium measurement (mass/ volume)Ordered By: Guillermo Gilliland on 08-24-2024 Potassium (Unsp spec) [Mass/Vol] 4.1 mmol/L 3.3-5.1 [facility] Comment on above: Hemolysis present, R esults could be affected. ,Serum,hCG Quali.on 08-24-2024 HCG, SERUM QUAL Negative Normal [facility] Comment on above: Performed By: #### L 100.0100, L700.6800, L500.4050, L501.2450 #### [facility] Laboratory [address] [place], [place], [id number] Protein Test strip Ql (U)Ord ered By: Guillermo Gilliland on 08-24-2024 Protein Ql (U) 30 mg/dl High Negative [facility] RBC Auto (Bld) [#/Vol]Ordere d By: Guillermo Gilliland on 08-24-2024 RBC (Bld) [#/Vol] 3.76 10*6/uL Low 4.2-5.[address] [facility] Serum beta-hCG test, qualita tiveOrdered By: Guillermo Gilliland on 08-24-2024 Beta HCG ( test) Ql Negative [facility] Serum creatinine measurement (mass/volume)Ordered By: Guillermo Gilliland on 08-24-2024 Creatinine [Mass/Vol] 0.92 mg/dL 0.70-1.20 [facility] Serum globulin measurementOr dered By: Guillermo Gilliland on 08-24-2024 Globulin (S) [Mass/Vol] 2.9 g/dL 2.2-4.2 [facility] Serum glucose measurement (m ass/volume)Ordered By: Guillermo Gilliland on 08-24-2024 Glucose [Mass/Vol] 92 mg/dL 70-99 [facility] Serum or plasma alanine tellez otransferase (ALT) measurementOrdered By: Guillermo Gilliland on 08-24-2024 ALT [Catalytic activity/Vol] 13 U/L <35 [facility] Serum or plasma albumin len urement (mass/volume)Ordered By: Guillermo Gilliland on 08-24-2024 Albumin [Mass/Vol] 4.1 g/dL 3.5-5.0 [facility] Serum or plasma albumin/glob ulin mass ratioOrdered By: Guillermo Gilliland on 08-24-2024 Albumin/Globulin [Mass ratio] 1.4 {ratio} 0.9-2.4 [facility] Serum or plasma alkaline andre sphatase measurementOrdered By: Guillermo Gilliland on 08-24-2024 ALP [Catalytic activity/Vol] 71 U/L 35-104 [facility] Serum or plasma calcium len urement (mass/volume)Ordered By: Guillermo Gilliland on 08-24-2024 Calcium [Mass/Vol] 9.3 mg/dL 7.6-11.0 [facility] Serum or plasma urea nitroge n measurement (mass/volume)Ordered By: Guillermo Gilliland on 08-24-2024 Urea nitrogen [Mass/Vol] 15 mg/dL 4-19 [facility] Sodium levelOrdered By: Judith Gilliland on 08-24-2024 Sodium [Moles/Vol] 139 mmol/L 133-145 [facility] Squamous epithelial cells de tection in urine sediment by light microscopyOrdered By: Guillermo Gilliland on 08-24-2024 Epithelial cells.squamous LM Ql (Urine sed) 5-10 SEEN /hpf 5-10 [facility] Total proteinOrdered By: Chaz Gilliland on 08-24-2024 Protein [Mass/Vol] 7.0 g/dL 5.9-8.4 [facility] Urinalysis, Completeon 08-24 BACTERIA 2+ /hpf Normal None Seen [facility] Comment on above: Order Comment: CLEAN CATCH Performed By: #### L 500.2500, L100.0100 #### [facility] [address] [place], [address] EPI,SQUAMOUS 5-10 SEEN Normal 5-10 [facility] Comment on above: Order Comment: CLEAN CATCH Performed By: #### L 500.2500, L100.0100 #### [facility] [address] [place], [address] RBC 5-10 SEEN Normal 0-5 [facility] Comment on above: Order Comment: CLEAN CATCH Performed By: #### L 500.2500, L100.0100 #### [facility] [address] [place], [address] WBC 0-5 SEEN Normal 0-5 [facility] Comment on above: Order Comment: CLEAN CATCH Performed By: #### L 500.2500, L100.0100 #### [facility] [address] [place], [address] Mucus Ql (Urine sed) 0 SEEN Normal [facility] Comment on above: Order Comment: CLEAN CATCH Performed By: #### L 500.2500, L100.0100 #### [facility] [address] [place], [address] Urine clarityOrdered By: Chaz Gilliland on 08-24-2024 Clarity (U) Sl. Cloudy Clear [facility] Urine color determinationOrd ered By: Guillermo Gilliland on 08-24-2024 Color (U) Yellow Yellow [facility] Urine glucose detectionOrder ed By: Guillermo Gilliland on 08-24-2024 Glucose Ql (U) Normal mg/dl Normal [facility] Urine leukocyte esterase det ection by dipstickOrdered By: Guillermo Gilliland on 08-24-2024 Leukocyte esterase Test strip Ql (U) Negative Negative [facility] Urine pHOrdered By: Guillermo orozco on 08-24-2024 pH (U) 6.5 [pH] 5.0 - 8.0 [facility] Urine sediment bacteria coun t by microscopy (number/high power field)Ordered By: Guillermo Gilliland on 08-24-2024 Bacteria LM.HPF (Urine sed) [#/Area] 2 /[HPF] None Seen [facility] Urine specific gravity measu rementOrdered By: Guillermo Gilliland on 08-24-2024 Specific gravity (U) [Rel density] 1.010 1.002-1.03 0 [facility] Urine urobilinogen measureme ntOrdered By: Guillermo Gilliland on 08-24-2024 Urobilinogen Ql (U) Normal mg/dl Normal [facility] White blood cell (WBC) count Ordered By: Guillermo Gilliland on 08-24-2024 WBC (Bld) [#/Vol] 7.3 10*3/uL 4.4-11.0 [facility] White blood cell countOrdere d By: Guillermo Gilliland on 08-24-2024 White blood cell count 0-5 SEEN /hpf 0-5 [facility] Abdomen/Pelvis W IV Cont ONL Yon 06-27-2024 Abdomen/Pelvis W IV Cont ONLY [facility] Imaging Services [address] [place] [address] Abdomen/Pelvis W IV Cont ONLY MR#: [id number] Acct: [id number] Name: KENDALL VASQUES Rep #: [id number] : 1985 F 38 From: Abner Mendoza MD PCP: [place], [employer] Status: REG ER Study: Abdomen/Pelvis W IV Cont ONLY Date of Exam: Exam# [id number] Ordering Dr: Bubba Nevarez DO EXAM: CT Abdomen and Pelvis With Intravenous Contrast CLINICAL INDICATION: RLQ ABDOMINAL PAIN TECHNIQUE: Axial computed tomography images of the abdomen and pelvis with intravenous contrast. This CT exam was performed using one or more of the following dose reduction techniques: automated exposure control, adjustment of the mA and/or kV according to patient size, and/or use of iterative reconstruction technique. COMPARISON: CT Abdomen Pelvis dated 03/10/2024 FINDINGS: LUNG BASES: Unremarkable. No mass. No consolidation. ABDOMEN: LIVER: Hepatomegaly with fatty infiltration. GALLBLADDER AND BILE DUCTS: Unremarkable. No calcified stones. No ductal dilation. PANCREAS: Unremarkable. No mass. No ductal dilation. SPLEEN: Unremarkable. No splenomegaly. ADRENALS: Unremarkable. No mass. KIDNEYS AND URETERS: Unremarkable. No solid mass. No hydronephrosis. STOMACH AND BOWEL: Apparent wall thickening and fat stranding of the descending colon and sigmoid colon could represent colitis with contained perforation anteriorly in the left hemipelvis. No abscess. Fecal retention in the colon consistent with constipation. No obstruction. PELVIS: APPENDIX: No findings to suggest acute appendicitis. BLADDER: Unremarkable. No mass. REPRODUCTIVE: Hypodense lesion of the left adnexa, likely ovarian cysts, measuring up to 1.4 cm. ABDOMEN and PELVIS: INTRAPERITONEAL SPACE: Unremarkable. No free air. No significant fluid collection. BONES/JOINTS: Status post anterior fusion of L5-S1. No acute fracture. No dislocation. SOFT TISSUES: Unremarkable. VASCULATURE: Unremarkable. No abdominal aortic aneurysm. LYMPH NODES: Unremarkable. No enlarged lymph nodes. CT/Abdomen/Pelvis W IV Cont ONLY IMPRESSION: 1. Apparent wall thickening and fat stranding of the descending colon and sigmoid colon could represent colitis with contained perforation anteriorly in the left hemipelvis. No abscess. 2. Hepatomegaly with fatty infiltration. 3. Fecal retention in the colon consistent with constipation. Reading Location: [facility] CC: MÓNICA Cuevas; Dr. Bubba Nevarez DO [employer]er: Signed [facility] Anion gap in Serum or Plasma Ordered By: Bubba Nevarez on 06-27-2024 Anion gap [Moles/Vol] 10 mmol/L 5-15 [facility] BUN/creatinine ratioOrdered By: Bubba Nevarez on 06-27-2024 Urea nitrogen/Creatinine [Mass ratio] 15.4 mg/mg 10-20 [facility] Bilirubin Test strip Ql (U)O rdered By: Bubba Nevarez on 06-27-2024 Bilirubin Ql (U) Negative Negative [facility] Bilirubin, totalOrdered By: Bubba Nevarez on 06-27-2024 Bilirubin [Mass/Vol] 0.17 mg/dL 0.00-1.30 [facility] CBC-Complete Blood Cnt No Di ffon 06-27-2024 Erythrocyte distribution width (RBC) [Ratio] 12.6 % Normal 11.6-14.6 [facility] Comment on above: Performed By: #### L 500.4050, L100.0500, L501.2450 ####[facility] [address] [place], [address] Hematocrit (Bld) [Volume fraction] 37.6 % Normal 37-47 [facility] Comment on above: Performed By: #### L 500.4050, L100.0500, L501.2450 ####[facility] [address] [place], [address] Hemoglobin (Bld) [Mass/Vol] 11.9 g/dL Low 12.0-15.0 [facility] Comment on above: Performed By: #### L 500.4050, L100.0500, L501.2450 ####[facility] [address] [place], [address] MCH (RBC) [Entitic mass] 30.7 pg Normal 27.0-32.0 [facility] Comment on above: Performed By: #### L 500.4050, L100.0500, L501.2450 ####[facility] [address] [place], [address] MCHC (RBC) [Mass/Vol] 31.6 g/dL Low 32-36 [facility] Comment on above: Performed By: #### L 500.4050, L100.0500, L501.2450 ####[facility] [address] [place], [address] MCV (RBC) [Entitic vol] 97.2 fL Normal 81-99 [facility] Comment on above: Performed By: #### L 500.4050, L100.0500, L501.2450 ####[facility] [address] [place], [address] Platelet mean volume (Bld) [Entitic vol] 10.9 fL Normal 6.2-12.0 [facility] Comment on above: Performed By: #### L 500.4050, L100.0500, L501.2450 ####[facility] [address] [place], [address] Platelets (Bld) [#/Vol] 182 10*3/uL Normal 150-450 [facility] Comment on above: Performed By: #### L 500.4050, L100.0500, L501.2450 ####[facility] [address] [place], [address] RBC (Bld) [#/Vol] 3.87 10*6/uL Low 4.2-5.[address] [facility] Comment on above: Performed By: #### L 500.4050, L100.0500, L501.2450 ####[facility] [address] [place], [address] RDW SD 44.5 fl High 35.1-43.9 [facility] Comment on above: Performed By: #### L 500.4050, L100.0500, L501.2450 ####[facility] [address] [place], [address] WBC (Bld) [#/Vol] 8.2 10*3/uL Normal 4.4-11.0 [facility] Comment on above: Performed By: #### L 500.4050, L100.0500, L501.2450 ####[facility] [address] [place], [address] Carbon dioxide, total [Moles /volume] in Central venous bloodOrdered By: Bubba Nevarez on 06-27-2024 CO2 [Moles/Vol] 24.7 mmol/L 21.0-32.0 [facility] Chloride assayOrdered By: Anthony Nevarez on 06-27-2024 Chloride [Moles/Vol] 104 mmol/L 98-108 [facility] Comprehensive Metabolic Prof ilon 06-27-2024 Albumin [Mass/Vol] 3.7 g/dL Normal 3.5-5.0 [facility] Comment on above: Performed By: #### L 500.4050, L100.0500, L501.2450 ####[facility] [address] [place], [address] Albumin/Globulin [Mass ratio] 1.5 {ratio} Normal 0.9-2.4 [facility] Comment on above: Performed By: #### L 500.4050, L100.0500, L501.2450 ####[facility] [address] [place], [address] ALK PHOS 68 U/L Normal 35-104 [facility] Comment on above: Performed By: #### L 500.4050, L100.0500, L501.2450 ####[facility] [address] [place], [address] ALT [Catalytic activity/Vol] 16 U/L Normal <=34 [facility] Comment on above: Performed By: #### L 500.4050, L100.0500, L501.2450 ####[facility] [address] [place], [address] AST [Catalytic activity/Vol] 29 U/L Normal <=31 [facility] Comment on above: Result Comment: Hemo lysis present, Results??could be affected. ?? Performed By: #### L 500.4050, L100.0500, L501.2450 ####[facility] [address] [place], [address] Bilirubin [Mass/Vol] 0.17 mg/dL Normal 0.00-1.30 [facility] Comment on above: Performed By: #### L 500.4050, L100.0500, L501.2450 ####[facility] [address] [place], [address] BUN/CRE 15.4 RATIO Normal 10-20 [facility] Comment on above: Performed By: #### L 500.4050, L100.0500, L501.2450 ####[facility] [address] [place], [address] Calcium [Mass/Vol] 9.2 mg/dL Normal 7.6-11.0 [facility] Comment on above: Performed By: #### L 500.4050, L100.0500, L501.2450 ####[facility] [address] [place], [address] Chloride [Moles/Vol] 104 mmol/L Normal 98-108 [facility] Comment on above: Performed By: #### L 500.4050, L100.0500, L501.2450 ####[facility] [address] [place], [address] CO2 [Moles/Vol] 24.7 mmol/L Normal 21.0-32.0 [facility] Comment on above: Performed By: #### L 500.4050, L100.0500, L501.2450 ####[facility] [address] [place], [address] Creatinine [Mass/Vol] 0.87 mg/dL Normal 0.70-1.20 [facility] Comment on above: Performed By: #### L 500.4050, L100.0500, L501.2450 ####[facility] [address] [place], [address] ECRCL 87.63 ml/min Normal 50-250 [facility] Comment on above: Performed By: #### L 500.4050, L100.0500, L501.2450 ####[facility] [address] [place], [address] GAP 10 Normal 5-15 [facility] Comment on above: Performed By: #### L 500.4050, L100.0500, L501.2450 ####[facility] [address] [place], [address] GFR/1.73 sq M.predicted among non-blacks MDRD (S/P/Bld) [Vol rate/Area] 88 mL/min/{1.73_m2} Normal >60 [facility] Comment on above: Result Comment: mL/m in/1.73m2 CKD-EPI Creatinine Equation (2020) Performed By: #### L 500.4050, L100.0500, L501.2450 ####[facility] [address] [place], [address] Globulin (S) [Mass/Vol] 2.5 g/dL Normal 2.2-4.2 [facility] Comment on above: Performed By: #### L 500.4050, L100.0500, L501.2450 ####[facility] [address] [place], [address] Glucose [Mass/Vol] 93 mg/dL Normal 70-99 [facility] Comment on above: Performed By: #### L 500.4050, L100.0500, L501.2450 ####[facility] [address] [place], [address] Potassium [Moles/Vol] 4.4 mmol/L Normal 3.3-5.1 [facility] Comment on above: Result Comment: Hemo lysis present, Results??could be affected. ?? Performed By: #### L 500.4050, L100.0500, L501.2450 ####[facility] [address] [place], [address] Sodium [Moles/Vol] 138 mmol/L Normal 133-145 [facility] Comment on above: Performed By: #### L 500.4050, L100.0500, L501.2450 ####[facility] [address] [place], [address] T PROT 6.2 g/dL Normal 5.9-8.4 [facility] Comment on above: Performed By: #### L 500.4050, L100.0500, L501.2450 ####[facility] [address] [place], [address] Urea nitrogen [Mass/Vol] 13 mg/dL Normal 4-19 [facility] Comment on above: Performed By: #### L 500.4050, L100.0500, L501.2450 ####[facility] [address] [place], [address] Emergency Department Summary on 06-27-[address] [facility] Medical Records Department [address] [place] [address] Emergency Department Summary 06/27/24 MR#: [id number] Acct: [id number] Name: KENDALL VASQUES Rep #: [id number] : 1985 38 From: uBbba Nevarez DO PCP: MÓNICA Garcia Status:REG ER Location: ED HPI History of Present Illness Chief [facility] Medical History History of renal disease Gastric reflux Asthma PONV (postoperative nausea and vomiting) Leg cramps History of ventricular septal defect Vomiting Seizure BPPV (benign paroxysmal positional vertigo) Difficult intravenous access Non-smoker Dysautonomia-like disorder Nephrolithiasis History of echocardiogram Wears glasses Anemia Easy bruising Restless legs Back pain Seizures Dietary restriction History of IBS Shortness of breath on exertion History of edema History of irregular heartbeat Hypoglycemia Anxiety Depression Migraines Kidney disease Hypertension Home Medications ???Medication ???Instructions ???Recorded ???Last Taken ???Type albuterol sulfate 90 mcg/actuation 1 - 2 puff inhalation Q6H PRN [place] N 03/22/13 05/24/14 08:49 History aerosol inhaler (Ventolin HFA) Asthma trazodone 150 mg PO/SL QHS 12/31/20 04/17/24 History diphenhydramine 25 1 tab PO QHS 10/22/21 04/17/24 His tory mg-acetaminophen 500 mg tablet (Tylenol PM Extra Strength) spironolactone 25 mg tablet 25 mg PO QDAY 07/01/23 04/17/24 Hi story hydrochlorothiazide 12.5 mg capsule 12.5 mg PO QDAY 10/05/23 History potassium citrate 10 mEq (1,080 10 meq PO TID 10/05/23 04/17/24 Hi story mg) tablet,extended release vortioxetine 10 mg tablet 10 mg PO QDAY 10/05/23 04/17/24 Hi story (Trintellix) ondansetron 4 mg disintegrating 4 mg PO Q8H PRN PRN Nausea #10 tab s 12/29/23 04/17/24 Rx tablet tizanidine 2 mg tablet 8 mg PO TID PRN PRN muscle 4 04/17/24 History spasticity pantoprazole 40 mg tablet,delayed 40 mg PO BID N/V, Gastritis #60 0 02/25/24 04/18/24 Rx release tabs metoclopramide HCl 10 mg tablet 10 mg PO 4X/DAY PRN nausea and 04/10/24 Rx (Reglan) vomiting #28 tabs buspirone 5 mg tablet 5 mg PO TID PRN anxiety 04/04/24 0 04/16/24 History Allergy/AdvReac Type Severity Reaction Status Date / Time amoxicillin Allergy Severe hives Verified 06/27/24 19:35 baclofen Allergy Severe incontinenc Verified 06/27/24 19:35 e codeine Allergy Hives Verified 06/27/24 19:35 metronidazole (From Flagyl) Allergy Shortness Verified 06/27/24 19:35 of breath morphine Allergy Hives Verified 06/27/24 19:35 shellfish derived Allergy Angioedema Verified 06/27/24 19:35 topiramate (From Topamax) Allergy Other Verified 06/27/24 19:35 tramadol AdvReac Severe seizures Verified 06/27/24 19:35 adhesive AdvReac Rash Verified 06/27/24 19:35 NSAIDS (Non-Steroidal AdvReac PT UNSURE Verified 06/27/24 19:35 Anti-Inflamma OF REACTION Family History Father No cardiac disease Mother No cardiac disease Other Arthritis Asthma Blood clot in vein Bowel disease Breast cancer CVA (cerebral vascular accident) Cervical cancer Depression Diabetes High cholesterol Hypertension Seizures Suicidal ideation Surgical History (Updated 06/27/24 @ 19:34 by Aylin Field) History of spinal fusion Hx of dilation and curettage History of radiofrequency ablation (RFA) of nerve of lumbar spine H/O: hysterectomy Hx of laparoscopy S/P removal of right ovary S/P tonsillectomy S/P breast lumpectomy Previous section Social History household members: spouse Smoking Status: Never smoker alcohol intake: current alcohol intake frequency: holidays/special occasions only substance use type: does not use what type of physical activity do you participate in: none EXAM Physical Exam Const Vital Signs: 06/27/24 19:25 06/27/24 22:00 Temperature 98 F Temperature Source Oral Pulse Rate 71 71 Respiratory Rate 18 16 Blood Pressure 105/64 124/59 H Blood Pressure Mean 77 80 Pulse Ox 96 96 Oxygen Delivery Method Room Air Room Air MDM MDM MDM Narrative Medical decision making narrative: HISTORY OF PRESENT ILLNESS: Chief complaint: Back pain 38-year-old female history of seizure disorder, diarrhea dysautonomia like syndrome, nephrolithiasis, vertigo, presents with acute onset of right hip pain, right lower quad abdominal pain. Patient states this afternoon she was taking a nap. She states when she woke up from her nap she moved her right leg to try to cross over her left leg and she felt a pop and sever (more content not included)... Normal [facility] Erythrocyte distribution wid th ratioOrdered By: Bubba Nevarez on 06-27-2024 Erythrocyte distribution width (RBC) [Ratio] 12.6 % 11.6-14.6 [facility] Erythrocyte distribution wid th standard deviationOrdered By: Bubba Nevarez on 06-27-2024 Erythrocyte distribution width (RBC) [Ratio] 44.5 fl High 35.1-43.9 [facility] Glomerular filtration rate ( GFR) estimation/1.73 sq m using serum, plasma, or whole bOrdered By: Bubba Nevarez on 06-27-2024 GFR/1.73 sq M.predicted among non-blacks MDRD (S/P/Bld) [Vol rate/Area] 88 mL/min/{1.73_m2} >60 [facility] Comment on above: mL/min/1.73m2 CKD-EP I Creatinine Equation (2020) HIP, UNI W/ Pelvis 2-3 Views on 06-27-2024 HIP, UNI W/ Pelvis 2-3 Views [facility] Imaging Services [address] [place] [place], [place] [address] HIP, UNI W/ Pelvis 2-3 Views MR#: [id number] Acct: [id number] Name: KENDALL VASQUES Rep #: [id number] : 1985 F 38 From: Abner Mendoza MD PCP: Winsome Cuevas NP-Sarbjit Status: REG ER Study: HIP, UNI W/ Pelvis 2-3 Views Date of Exam: 02/09 Exam# [id number] Ordering Dr: Bubba Nevarez DO EXAM: XR Right Hip With Pelvis When Performed, 2 or 3 Views CLINICAL INDICATION: HIP PAIN TECHNIQUE: Two or three views of the right hip with pelvis when performed. COMPARISON: No relevant prior studies available. FINDINGS: BONES/JOINTS: Unremarkable. No acute fracture. No dislocation. SOFT TISSUES: Unremarkable. RAD/HIP, UNI W/ Pelvis 2-3 Views IMPRESSION: Normal right hip x-rays. Reading Location: [id number] CC: MÓNICA Cuevas; Dr. Bubba Nevarez, [employer] Designer: Signed Normal [facility] Hematocrit Auto (Bld) [Volum e fraction]Ordered By: Bubba Nevarez on 06-27-2024 Hematocrit (Bld) [Volume fraction] 37.6 % 37-47 [facility] Hemoglobin measurementOrdere d By: Bubba Nevarez on 06-27-2024 Hemoglobin (Bld) [Mass/Vol] 11.9 g/dL Low 12.0-15.0 [facility] Ketones Test strip Ql (U)Ord ered By: Bubba Nevarez on 06-27-2024 Ketones Ql (U) Negative Negative [facility] Laboratory - Chemistry and C hemistry - challengeOrdered By: Bubba Nevarez on 06-27-2024 AST [Catalytic activity/Vol] 29 U/L <32 [facility] Comment on above: Hemolysis present, R esults could be affected. Lipaseon 06-27-2024 Lipase [Catalytic activity/Vol] 17 U/L Normal 13-75 [facility] Comment on above: Result Comment: Jaquelin michaels note: LIPASE revised reference range effective 22. New Lipase methodology. Expected to produce lower values than the previous assay method. NEW Reference Range: 13 - 75 U/L Performed By: #### L 500.4050, L100.0500, L501.2450 ####[facility] [address] [facility]. [place], [place], [address] Lipase measurementOrdered By : Bubba Nevarez on 06-27-2024 Lipase [Catalytic activity/Vol] 17 U/L 13-75 [facility] Comment on above: Please note:LIPASE r evised reference range effective 22. New Lipase methodology. Expected to produce lower values than the previous assay method. NEW Reference Range: 13 - 75 U/L MCV (mean corpuscular volume ) determinationOrdered By: Bubba Nevarez on 06-27-2024 MCV (RBC) [Entitic vol] 97.2 fL 81-99 [facility] Mean corpuscular hemoglobin (MCH) determinationOrdered By: Bubba Nevarez on 06-27-2024 MCH (RBC) [Entitic mass] 30.7 pg 27.0-32.0 [facility] Mean corpuscular hemoglobin concentration (MCHC) determinationOrdered By: Bubba Nevarez on 06-27-2024 MCHC (RBC) [Mass/Vol] 31.6 g/dL Low 32-36 [facility] Mean platelet volume determi nationOrdered By: Bubba Nevarez on 06-27-2024 Platelet mean volume (Bld) [Entitic vol] 10.9 fL 6.2-12.0 [facility] Microscopic analysis of urin e for red blood cells (RBC)Ordered By: Bubba Nevarez on 06-27-2024 Microscopic analysis of urine for red blood cells (RBC) 0 SEEN /hpf 0-5 [facility] Mucus LM Ql (Urine sed)Order ed By: Bubba Nevarez on 06-27-2024 Mucus Ql (Urine sed) 0 SEEN /hpf [facility] Nitrite Test strip Ql (U)Ord ered By: Bubba Nevarez on 06-27-2024 Nitrite Ql (U) Negative Negative [facility] Platelet countOrdered By: Anthony Nevarez on 06-27-2024 Platelets (Bld) [#/Vol] 182 10*3/uL 150-450 [facility] Potassium measurement (mass/ volume)Ordered By: Bubba Nevarez on 06-27-2024 Potassium (Unsp spec) [Mass/Vol] 4.4 mmol/L 3.3-5.1 [facility] Comment on above: Hemolysis present, R esults could be affected. ,Urineon 06-27-2024 Beta HCG ( test) Ql (U) Negative Normal [facility] Comment on above: Result Comment: Very dilute urine specimens, as indicated by a low specific gravity, may not contain administrative representative levels of hCG. If is still suspected, a first morning urine specimen should be collected 48 hours later and tested. Performed By: #### L 400.0001, L400.7600 ####[facility] [address] [place], [address] Protein Test strip Ql (U)Ord ered By: Bubba Nevarez on 06-27-2024 Protein Ql (U) 15 mg/dl High Negative [facility] RBC Auto (Bld) [#/Vol]Ordere d By: Bubba Nevarez on 06-27-2024 RBC (Bld) [#/Vol] 3.87 10*6/uL Low 4.2-5.[address] [facility] Serum creatinine measurement (mass/volume)Ordered By: Bubba Nevarez on 06-27-2024 Creatinine [Mass/Vol] 0.87 mg/dL 0.70-1.20 [facility] Serum globulin measurementOr dered By: Bubba Nevarez on 06-27-2024 Globulin (S) [Mass/Vol] 2.5 g/dL 2.2-4.2 [facility] Serum glucose measurement (m ass/volume)Ordered By: Bubba Nevarez on 06-27-2024 Glucose [Mass/Vol] 93 mg/dL 70-99 [facility] Serum or plasma alanine tellez otransferase (ALT) measurementOrdered By: Bubba Nevarez on 06-27-2024 ALT [Catalytic activity/Vol] 16 U/L <35 [facility] Serum or plasma albumin len urement (mass/volume)Ordered By: Bubba Nevarez on 06-27-2024 Albumin [Mass/Vol] 3.7 g/dL 3.5-5.0 [facility] Serum or plasma albumin/glob ulin mass ratioOrdered By: Bubba Nevarez on 06-27-2024 Albumin/Globulin [Mass ratio] 1.5 {ratio} 0.9-2.4 [facility] Serum or plasma alkaline andre sphatase measurementOrdered By: Bubba Nevarez on 06-27-2024 ALP [Catalytic activity/Vol] 68 U/L 35-104 [facility] Serum or plasma calcium len urement (mass/volume)Ordered By: Bubba Nevarez on 06-27-2024 Calcium [Mass/Vol] 9.2 mg/dL 7.6-11.0 [facility] Serum or plasma urea nitroge n measurement (mass/volume)Ordered By: Bubba Nevarez on 06-27-2024 Urea nitrogen [Mass/Vol] 13 mg/dL 4-19 [facility] Sodium levelOrdered By: Camron Nevarez on 06-27-2024 Sodium [Moles/Vol] 138 mmol/L 133-145 [facility] Spine Lumbar without Contras ton 06-27-2024 Spine Lumbar without Contrast [facility] Imaging Services [address] [place], [place] [address] Spine Lumbar without Contrast MR#: [id number] Acct: [id number] Name: KENDALL VASQUES Rep #: [id number] : 1985 F 38 From: Angel Gee MD PCP: MÓNICA Garcia Status: REG ER Study: Spine Lumbar without Contrast Date of Exam: Exam# [id number] Ordering Dr: Bubba Nevarez DO PROCEDURE: SPINE LUMBAR WITHOUT CONTRAST 06/27/2024 REASON FOR EXAM: RECENT BACK SURGERY RULE OUT HARDWARE FAILURE TECHNIQUE: Lumbar spine CT without contrast. Coronal and Sagittal reconstruction series were provided. One or more dose reduction techniques were used (e.g., Automated exposure control, adjustment of the mA and/or kV according to patient size, use of iterative reconstruction technique COMPARISON: CT abdomen and pelvis 03/10/2024. RADIATION DOSE SUMMARY: CTDlvol: 16.62 mGy DLP: 691.69 mGycm FINDINGS: Status post L5-S1 anterior intervertebral disc spacer/replacement appears intact and anatomic. Endplate lucency with surrounding sclerosis at the inferior aspect of L5 in the area of anchor screw was previously seen prior to hardware placement on the CT abdomen and pelvis and is consistent with pre-existing degenerative endplate change. No fracture or malalignment. Small calcification centrally within the left kidney axial 28 suggest a small nonobstructing intrarenal stone. Presacral stranding, edema with a small amount tracking along the visualized left pelvic sidewall which is associated with a few small foci of air may represent postsurgical changes. No CT evidence of significant appearing central canal narrowing. CT/Spine Lumbar without Contrast IMPRESSION: Status post L5-S1 anterior intervertebral disc spacer/replacement appears intact and anatomic. Endplate lucency with surrounding sclerosis at the inferior aspect of L5 in the area of anchor screw was previously seen prior to hardware placement on the CT abdomen and pelvis and is consistent with pre-existing degenerative endplate change. No fracture or malalignment. Presacral stranding, edema with a small amount tracking along the visualized left pelvic sidewall which is associated with a few small foci of air may represent postsurgical changes. Reading Location: [id number] CC: MÓNICA Cuevas; Dr. Bubba Nevarez, [employer] Designer: Signed Normal [facility] Squamous epithelial cells de tection in urine sediment by light microscopyOrdered By: Bubba Nevarez on 06-27-2024 Epithelial cells.squamous LM Ql (Urine sed) 0-5 SEEN /hpf 5-10 [facility] Total proteinOrdered By: Carolyne Nevarez on 06-27-2024 Protein [Mass/Vol] 6.2 g/dL 5.9-8.4 [facility] Urinalysis, Completeon 06-27 BACTERIA 2+ /hpf Normal None Seen [facility] Comment on above: Order Comment: CLEAN CATCH Performed By: #### L 400.0001, L400.7600 ####[facility] [address] [place], [address] EPI,SQUAMOUS 0-5 SEEN Normal 5-10 [facility] Comment on above: Order Comment: CLEAN CATCH Performed By: #### L 400.0001, L400.7600 ####[facility] [address] [place], [address] WBC 0-5 SEEN Normal 0-5 [facility] Comment on above: Order Comment: CLEAN CATCH Performed By: #### L 400.0001, L400.7600 ####[facility] [address] [place], [address] Mucus Ql (Urine sed) 0 SEEN Normal [facility] Comment on above: Order Comment: CLEAN CATCH Performed By: #### L 400.0001, L400.7600 ####[facility] [address] [place], [address] RBC 0 SEEN Normal 0-5 [facility] Comment on above: Order Comment: CLEAN CATCH Performed By: #### L 400.0001, L400.7600 ####[facility] [address] [place], [address] Urine clarityOrdered By: Carolyne Nevarez on 06-27-2024 Clarity (U) Clear Clear [facility] Urine color determinationOrd ered By: Bubba Nevarez on 06-27-2024 Color (U) Straw Yellow [facility] Urine glucose detectionOrder ed By: Bubba Nevarez on 06-27-2024 Glucose Ql (U) Normal mg/dl Normal [facility] Urine leukocyte esterase det ection by dipstickOrdered By: Bubba Nevarez on 06-27-2024 Leukocyte esterase Test strip Ql (U) Negative Negative [facility] Urine pHOrdered By: Bubba wadsworth on 06-27-2024 pH (U) 7.0 [pH] 5.0 - 8.0 [facility] Urine testOrdered By: Bubba Nevarez on 06-27-2024 HCG ( test) Ql (U) Negative [facility] Comment on above: Very dilute urine sp ecimens, as indicated by a low specificgravity, may not contain administrative representative levels of hCG. If is still suspected, a first morning urinespecimen should be collected 48 hours later and tested. Urine sediment bacteria coun t by microscopy (number/high power field)Ordered By: Bubba Nevarez on 06-27-2024 Bacteria LM.HPF (Urine sed) [#/Area] 2 /[HPF] None Seen [facility] Urine specific gravity measu rementOrdered By: Bubba Nevarez on 06-27-2024 Specific gravity (U) [Rel density] 1.005 1.002-1.03 0 [facility] Urine urobilinogen measureme ntOrdered By: Bubba Nevarez on 06-27-2024 Urobilinogen Ql (U) Normal mg/dl Normal [facility] White blood cell (WBC) count Ordered By: Bubba Nevarez on 06-27-2024 WBC (Bld) [#/Vol] 8.2 10*3/uL 4.4-11.0 [facility] White blood cell countOrdere d By: Bubba Nevarez on 06-27-2024 White blood cell count 0-5 SEEN /hpf 0-5 [facility] Basic metabolic 2000 panelon 06-24-2024 Anion gap [Moles/Vol] 8 mmol/L 6 - 18 [facility] Calcium [Mass/Vol] 8.1 mg/dL Low 8.9 - 10. 3 mg/dL [facility] Chloride [Moles/Vol] 108 mmol/L High 98 - 10 7 mmol/L [facility] CO2 [Moles/Vol] 23 mmol/L 22 - 32 mmol/L [facility] Creatinine [Mass/Vol] 0.78 mg/dL 0.60 - 1.30 mg/dL [facility] GFR/1.73 sq M.predicted among non-blacks MDRD (S/P/Bld) [Vol rate/Area] 100 mL/min/{1.73_m2} - [facility] Comment on above: Calculation based on the Chronic Kidney Disease Epidemiology Collaboration (CKD-EPI) equation refit without adjustment for race. Glucose [Mass/Vol] 83 mg/dL 70 - 99 mg/dL [facility] Interpretation and review of laboratory results Abnormal [facility] Potassium [Moles/Vol] 3.6 mmol/L 3.6 - 5.1 mmol/L [facility] Sodium [Moles/Vol] 139 mmol/L 136 - 145 mmol/L [facility] Urea nitrogen [Mass/Vol] 6 mg/dL Low 8 - 20 mg/dL [facility] Urea nitrogen/Creatinine [Mass ratio] 7.7 mg/mg Low 12.0 - 20.0 [facility] Anion gap [Moles/Vol] 8 mmol/L Normal 6-18 [facility] Comment on above: Performed By: #### 2 4321-2 #### [facility] [address] [place] [address] Calcium [Mass/Vol] 8.1 mg/dL Low 8.9-10.3 [facility] Comment on above: Performed By: #### 2 4321-2 #### [facility] [address] [place] [address] Chloride [Moles/Vol] 108 mmol/L High 98-107 [facility] Comment on above: Performed By: #### 2 4321-2 #### [facility] [address] [place] [address] CO2 [Moles/Vol] 23 mmol/L Normal 22-32 [facility] Comment on above: Performed By: #### 2 4321-2 #### [facility] [address] [place] [address] Creatinine [Mass/Vol] 0.78 mg/dL Normal 0.60-1.30 [facility] Comment on above: Performed By: #### 2 4321-2 #### [facility] [address] [place] [address] GFR/1.73 sq M.predicted among non-blacks MDRD (S/P/Bld) [Vol rate/Area] 100 mL/min/{1.73_m2} Normal >=60 [facility] Comment on above: Result Comment: Calc ulation based on the Chronic Kidney Disease Epidemiology Collaboration (CKD-EPI) equation refit without adjustment for race. Performed By: #### 2 4321-2 #### [facility] [address] [place] [address] Glucose [Mass/Vol] 83 mg/dL Normal 70-99 [facility] Comment on above: Performed By: #### 2 4321-2 #### [facility] [address] [place] [address] Potassium [Moles/Vol] 3.6 mmol/L Normal 3.6-5.1 [facility] Comment on above: Performed By: #### 2 4321-2 #### [facility] [address] [place] [address] Sodium [Moles/Vol] 139 mmol/L Normal 136-145 [facility] Comment on above: Performed By: #### 2 4321-2 #### [facility] [address] [place] [address] Urea nitrogen [Mass/Vol] 6 mg/dL Low 8-20 [facility] Comment on above: Performed By: #### 2 4321-2 #### [facility] [address] [place] [address] Urea nitrogen/Creatinine [Mass ratio] 7.7 mg/mg Low 12.0-20.0 [facility] Comment on above: Performed By: #### 2 4321-2 #### [facility] [address] [place] [address] CBC W Differential panel, me thod unspecified (Bld)on 06-24-2024 Basophils (Bld) [#/Vol] 0.02 10*3/uL [facility] Basophils/100 WBC (Bld) 0.2 % 0.0 - 2.0 % [facility] Eosinophils (Bld) [#/Vol] 0.04 10*3/uL [facility] Eosinophils/100 WBC (Bld) 0.4 % 0.0 - 7.0 % [facility] Erythrocyte distribution width (RBC) [Ratio] 12.8 % 11.0 - 14.8 % [facility] Hematocrit (Bld) [Volume fraction] 31.9 % Low 34.3 - 47.9 % [facility] Hemoglobin (Bld) [Mass/Vol] 10.3 g/dL Low 12.0 - 16.0 g/dL [facility] Immature granulocytes (Bld) [#/Vol] 0.03 10*3/uL [facility] Immature granulocytes/100 WBC (Bld) 0.3 % 0.0 - 1.2 % [facility] Interpretation and review of laboratory results Abnormal [facility] Lymphocytes (Bld) [#/Vol] 2.77 10*3/uL [facility] Lymphocytes/100 WBC (Bld) 29.9 % 17.9 - 49.6 % [facility] MCH (RBC) [Entitic mass] 30.5 pg [facility] MCHC (RBC) [Mass/Vol] 32.3 g/dL 30.8 - 35.3 g/dL [facility] MCV (RBC) [Entitic vol] 94.4 fL [facility] Monocytes (Bld) [#/Vol] 0.83 10*3/uL [facility] Monocytes/100 WBC (Bld) 9 % 0.0 - 12.0 % [facility] Neutrophils (Bld) [#/Vol] 5.56 10*3/uL [facility] Neutrophils/100 WBC (Bld) 60.2 % 38.1 - 75.5 % [facility] Platelet mean volume (Bld) [Entitic vol] 10.8 fL [facility] Platelets (Bld) [#/Vol] 158 10*3/uL [facility] RBC (Bld) [#/Vol] 3.38 10*6/uL Low [facility] WBC (Bld) [#/Vol] 9.3 10*3/uL [facility] Basophils (Bld) [#/Vol] 0.02 10*3/uL Normal 0.00-0.20 [facility] Comment on above: Performed By: #### 6 9742-5 #### [facility] [address] [place] [address] Basophils/100 WBC (Bld) 0.2 % Normal 0.0-2.0 [facility] Comment on above: Performed By: #### 6 9742-5 #### [facility] [address] [place] [address] Eosinophils (Bld) [#/Vol] 0.04 10*3/uL Normal 0.00-0.70 [facility] Comment on above: Performed By: #### 6 9742-5 #### [facility] [address] [place] [address] Eosinophils/100 WBC (Bld) 0.4 % Normal 0.0-7.0 [facility] Comment on above: Performed By: #### 6 9742-5 #### [facility] [address] [place] [address] Erythrocyte distribution width (RBC) [Ratio] 12.8 % Normal 11.0-14.8 [facility] Comment on above: Performed By: #### 6 9742-5 #### [facility] [address] [place] [address] Hematocrit (Bld) [Volume fraction] 31.9 % Low 34.3-47.9 [facility] Comment on above: Performed By: #### 6 9742-5 #### [facility] [address] [place] [address] Hemoglobin (Bld) [Mass/Vol] 10.3 g/dL Low 12.0-16.0 [facility] Comment on above: Performed By: #### 6 9742-5 #### [facility] [address] [place] [address] Immature granulocytes (Bld) [#/Vol] 0.03 10*3/uL Normal 0.00-0.10 [facility] Comment on above: Performed By: #### 6 9742-5 #### [facility] [address] [place] [address] Immature granulocytes/100 WBC (Bld) 0.3 % Normal 0.0-1.2 [facility] [facility] Comment on above: Performed By: #### 6 9742-5 #### [facility] [address] [place] [address] 12403 Lymphocytes (Bld) [#/Vol] 2.77 10*3/uL Normal 1.00-4.80 [facility] Comment on above: Performed By: #### 6 9742-5 #### [facility] [address] [place] [address] Lymphocytes/100 WBC (Bld) 29.9 % Normal 17.9-49.6 [facility] Comment on above: Performed By: #### 6 9742-5 #### [facility] [address] [place] [address] 44896 MCH 30.5 pcg Normal 27.0-34.0 [facility] Comment on above: Performed By: #### 6 9742-5 #### [facility] [address] [place] [address] 63541 MCHC (RBC) [Mass/Vol] 32.3 g/dL Normal 30.8-35.3 [facility] Comment on above: Performed By: #### 6 9742-5 #### [facility] [address] [place] [address] 66431 MCV (RBC) [Entitic vol] 94.4 fL Normal 80.0-97.0 M [facility] Comment on above: Performed By: #### 6 9742-5 #### [facility] [address] [place] [address] 84669 Monocytes (Bld) [#/Vol] 0.83 10*3/uL Normal 0.00-0.90 [facility] Comment on above: Performed By: #### 6 9742-5 #### [facility] [address] [place] [address] 10296 Monocytes/100 WBC (Bld) 9.0 % Normal 0.0-12.0 M [facility] Comment on above: Performed By: #### 6 9742-5 #### [facility] [address] [place] [address] 94399 Neutrophils Absolute 5.56 K/mcL Normal 1.80-7.70 [facility] Comment on above: Performed By: #### 6 9742-5 #### [facility] [address] [place] [address] 12617 Neutrophils/100 WBC (Bld) 60.2 % Normal 38.1-75.5 [facility] Comment on above: Performed By: #### 6 9742-5 #### [facility] [address] [place] [address] 51910 Platelet mean volume (Bld) [Entitic vol] 10.8 fL Normal 6.2-12.1 [facility] Comment on above: Performed By: #### 6 9742-5 #### [facility] [address] [place] [address] 84957 Platelets (Bld) [#/Vol] 158 10*3/uL Normal 142-424 [facility] Comment on above: Performed By: #### 6 9742-5 #### [facility] [address] [place] [address] 00848 RBC (Bld) [#/Vol] 3.38 10*6/uL Low 3.74-5.34 [facility] Comment on above: Performed By: #### 6 9742-5 #### [facility] [address] [place] [address] 72198 WBC (Bld) [#/Vol] 9.3 10*3/uL Normal 4.6-10.2 [facility] Comment on above: Performed By: #### 6 9742-5 #### [facility] [address] [place] [address] 30144 Blood type and Indirect anti body screen panel (Bld)on 06-23-2024 ABO group Nom (Bld) A [facility] Blood group antibody screen Ql Negative [facility] Rh Nom (Bld) Positive [facility] ABO group Nom (Bld) A Normal [facility] Comment on above: Performed By: #### 3 4532-2 #### [facility] [address] [place] [address] Rh Type Positive Normal [facility] Comment on above: Performed By: #### 3 4532-2 #### [facility] [address] [place] [address] Glucose Auto test strip (Bld ) [Mass/Vol]on 06-23-2024 Glucose [Mass/Vol] 74 mg/dL 70 - 99 mg/dL [facility] Interpretation and review of laboratory results Normal [facility] Glucose [Mass/Vol] 74 mg/dL Normal 70-99 [facility] Comment on above: Performed By: #### 2 340-8 #### [facility] [address] [place] [address] RF 1 houron 06-23-2024 This order has been auto-finalized and does not contain a result. RIS PACS/VR XR FLUORO UP TO 1 HOUR (STAT ISTICS)(NO REPORT)on 06-23-2024 XR FLUORO UP TO 1 HOUR (STATISTICS)(NO REPORT) This order has been auto-finalized and does not contain a result. Normal [facility] Basic metabolic 2000 panelon 06-21-2024 Anion gap [Moles/Vol] 13 mmol/L Normal 6-18 [facility] Comment on above: Performed By: #### 2 4321-2 #### [facility] [address] [place] [address] Calcium [Mass/Vol] 9.9 mg/dL Normal 8.9-10.3 [facility] Comment on above: Performed By: #### 2 4321-2 #### [facility] [address] [place] [address] Chloride [Moles/Vol] 104 mmol/L Normal 98-107 [facility] Comment on above: Performed By: #### 2 4321-2 #### [facility] [address] [place] [address] CO2 [Moles/Vol] 22 mmol/L Normal 22-32 [facility] Comment on above: Performed By: #### 2 4321-2 #### [facility] [address] [place] [address] Creatinine [Mass/Vol] 0.82 mg/dL Normal 0.60-1.30 [facility] Comment on above: Performed By: #### 2 4321-2 #### [facility] [address] [place] [address] GFR/1.73 sq M.predicted among non-blacks MDRD (S/P/Bld) [Vol rate/Area] 95 mL/min/{1.73_m2} Normal >=60 [facility] Comment on above: Result Comment: Calc ulation based on the Chronic Kidney Disease Epidemiology Collaboration (CKD-EPI) equation refit without adjustment for race. Performed By: #### 2 4321-2 #### [facility] [address] [place] [address] Glucose [Mass/Vol] 72 mg/dL Normal 70-99 [facility] Comment on above: Performed By: #### 2 4321-2 #### [facility] [address] [place] [address] Potassium [Moles/Vol] 4.2 mmol/L Normal 3.6-5.1 [facility] Comment on above: Performed By: #### 2 4321-2 #### [facility] [address] [place] [address] Sodium [Moles/Vol] 139 mmol/L Normal 136-145 [facility] Comment on above: Performed By: #### 2 4321-2 #### [facility] [address] [place] [address] Urea nitrogen [Mass/Vol] 12 mg/dL Normal 8-20 [facility] Comment on above: Performed By: #### 2 4321-2 #### [facility] [address] [place] [address] Urea nitrogen/Creatinine [Mass ratio] 14.6 mg/mg Normal 12.0-20.0 [facility] Comment on above: Performed By: #### 2 4321-2 #### [facility] [address] [place] [address] 94867 Blood type and Indirect anti body screen panel (Bld)on 06-21-2024 ABO group Nom (Bld) A Normal [facility] Comment on above: Performed By: #### 3 4532-2 #### [facility] [address] [place] [address] 19729 Rh Type Positive Normal [facility] Comment on above: Performed By: #### 3 4532-2 #### [facility] [address] [place] [address] 68155 CBC W Differential panel, me thod unspecified (Bld)on 06-21-2024 Basophils (Bld) [#/Vol] 0.07 10*3/uL Normal 0.00-0.20 [facility] Comment on above: Performed By: #### 6 9742-5 #### [facility] [address] [place] [address] 90016 Basophils/100 WBC (Bld) 0.9 % Normal 0.0-2.0 [facility] Comment on above: Performed By: #### 6 9742-5 #### [facility] [address] [place] [address] 97912 Eosinophils (Bld) [#/Vol] 0.11 10*3/uL Normal 0.00-0.70 [facility] Comment on above: Performed By: #### 6 9742-5 #### [facility] [address] [place] [address] 98716 Eosinophils/100 WBC (Bld) 1.4 % Normal 0.0-7.0 [facility] Comment on above: Performed By: #### 6 9742-5 #### [facility] [address] [place] [address] 38947 Erythrocyte distribution width (RBC) [Ratio] 13.0 % Normal 11.0-14.8 [facility] Comment on above: Performed By: #### 6 9742-5 #### [facility] [address] [place] [address] 37329 Hematocrit (Bld) [Volume fraction] 40.7 % Normal 34.3-47.9 [facility] Comment on above: Performed By: #### 6 9742-5 #### [facility] [address] [place] [address] 98243 Hemoglobin (Bld) [Mass/Vol] 12.7 g/dL Normal 12.0-16.0 [facility] Comment on above: Performed By: #### 6 9742-5 #### [facility] [address] [place] [address] 32206 Immature granulocytes (Bld) [#/Vol] 0.02 10*3/uL Normal 0.00-0.10 [facility] Comment on above: Performed By: #### 6 9742-5 #### [facility] [address] [place] [address] 97095 Immature granulocytes/100 WBC (Bld) 0.2 % Normal 0.0-1.2 [facility] Comment on above: Performed By: #### 6 9742-5 #### [facility] [address] [place] [address] 05153 Lymphocytes (Bld) [#/Vol] 2.82 10*3/uL Normal 1.00-4.80 [facility] Comment on above: Performed By: #### 6 9742-5 #### [facility] [address] [place] [address] Lymphocytes/100 WBC (Bld) 35.2 % Normal 17.9-49.6 [facility] Comment on above: Performed By: #### 6 9742-5 #### [facility] [address] [place] [address] 57885 MCH 29.9 pcg Normal 27.0-34.0 [facility] Comment on above: Performed By: #### 6 9742-5 #### [facility] [address] [place] [address] 65276 MCHC (RBC) [Mass/Vol] 31.2 g/dL Normal 30.8-35.3 [facility] Comment on above: Performed By: #### 6 9742-5 #### [facility] [address] [place] [address] 62389 MCV (RBC) [Entitic vol] 95.8 fL Normal 80.0-97.0 M [facility] Comment on above: Performed By: #### 6 9742-5 #### [facility] [address] [place] [address] 76984 Monocytes (Bld) [#/Vol] 0.49 10*3/uL Normal 0.00-0.90 [facility] Comment on above: Performed By: #### 6 9742-5 #### [facility] [address] [place] [address] 87791 Monocytes/100 WBC (Bld) 6.1 % Normal 0.0-12.0 M [facility] Comment on above: Performed By: #### 6 9742-5 #### [facility] [address] [place] [address] Neutrophils Absolute 4.50 K/mcL Normal 1.80-7.70 Ciarra mike [facility] Comment on above: Performed By: #### 6 9742-5 #### [facility] [address] [place] [address] 01146 Neutrophils/100 WBC (Bld) 56.2 % Normal 38.1-75.5 [facility] Comment on above: Performed By: #### 6 9742-5 #### [facility] [address] [place] [address] 90931 Platelet mean volume (Bld) [Entitic vol] 11.0 fL Normal 6.2-12.1 [facility] Comment on above: Performed By: #### 6 9742-5 #### [facility] [address] [place] [address] 13807 Platelets (Bld) [#/Vol] 222 10*3/uL Normal 142-424 [facility] Comment on above: Performed By: #### 6 9742-5 #### [facility] [address] [place] [address] 24778 RBC (Bld) [#/Vol] 4.25 10*6/uL Normal 3.74-5.34 [facility] Comment on above: Performed By: #### 6 9742-5 #### [facility] [address] [place] [address] 12931 WBC (Bld) [#/Vol] 8.0 10*3/uL Normal 4.6-10.2 [facility] Comment on above: Performed By: #### 6 9742-5 #### [facility] [address] [place] [address] LUMBAR SPINE WO IV CONTRA STon 06-16-2024 CT LUMBAR SPINE WO IV CONTRAST Interpreted By: Clemencia Merritt, STUDY: CT LUMBAR SPINE WO IV CONTRAST 06/16/2024 5:45 pm INDICATION: Signs/Symptoms:RADICULOPAT HY COMPARISON: MRI of lumbar spine from 05/20/2024 ACCESSION NUMBER(S): [id number] ORDERING CLINICIAN: ZULEIMA THOMAS TECHNIQUE: Axial CT images of the lumbar spine are obtained. Axial, coronal and sagittal reconstructions are provided for review. FINDINGS: There is minimal retrolisthesis of L5 over S1. The vertebral bodies demonstrate expected height. There is a prominent Schmorl's node involving inferior endplate of L5 and a tiny Schmorl's node involving superior endplate of S1. There is mild surrounding endplate sclerosis. There is no evidence of a pars interarticularis defect. At L5-S1 there is a circumferential disc bulge with osteophytic spurring. There is no central canal stenosis. There is mild bilateral neural foraminal narrowing. Mild bilateral neural foraminal narrowing is also noted at L4-L5 and L3-L4 levels. No central canal stenosis is seen throughout lumbar region. Visualized lung bases are clear. Paraspinous soft tissues are within normal limits. IMPRESSION: Minimal retrolisthesis of L5 over S1 with spondylotic changes at L5-S1. Signed by: Clemencia Merritt 06/17/2024 1:10 PM Dictation workstation: [id number] [facility] MR LUMBAR SPINE WO IV CONTRA STon 05-20-2024 MR LUMBAR SPINE WO IV CONTRAST Interpreted By: Lars Chaudhry, STUDY: MR LUMBAR SPINE WO IV CONTRAST; 05/20/2024 6:51 pm INDICATION: Signs/Symptoms:lower back and right leg pain, getting worse weakness. ,M54.16 Radiculopathy, lumbar region COMPARISON: May 2015. ACCESSION NUMBER(S): [id number] ORDERING CLINICIAN: MESHA GARCIA TECHNIQUE: The lumbar spine was studied in the sagital, axial and coronal planes utiliing T1 and T2 weighted images. FINDINGS: The marrow signal and vertebral body height are normal. The conus and sacrum are normal. Images at each interspace reveal the following: T12/L1 There is normal alignment and vertebral body height. The disc space is normal. There is no evidence of canal or foraminal narrowing. There is no evidence of bulging or herniated disc. L1/L2 There is normal alignment and vertebral body height. The disc space is normal. There is no evidence of canal or foraminal narrowing. There is no evidence of bulging or herniated disc. L2/L3 There is normal alignment and vertebral body height. The disc space is normal. There is no evidence of canal or foraminal narrowing. There is no evidence of bulging or herniated disc. L3/L4 There is normal alignment and vertebral body height. The disc space is normal. There is no evidence of canal or foraminal narrowing. There is no evidence of bulging or herniated disc. L4/L5 Loss of height and signal unchanged from the previous exam. Mild circumferential bulging intervertebral disc. Mild bilateral facet hypertrophy. No measurable canal stenosis. Moderate bilateral foraminal narrowing. L5/S1 Interval development of Modic type 2 discogenic marrow signal changes in the adjacent endplates. Progressive narrowing of the intervertebral disc since the previous exam. Asymmetrical bulging of the intervertebral disc to the right with trace narrowing of the right lateral recess and neural foramen is unchanged compared to the previous exam. IMPRESSION: * Slight progression of degenerative changes at L5/S1 compared to the previous exam *Residual asymmetrical bulging of the intervertebral disc to the right at L5/S1 with unchanged mild right-sided foraminal narrowing MACRO: none Signed by: Lars Chaudhry 05/23/2024 7:17 AM Dictation workstation: [id number] [facility] MR/POSTOP.Timothy 04-18-2024 MR/POSTOP.[facility] Medical Records Department [address] [place] [address] Anesthesia Postop Eval I 04/18/24 1014 MR#: [id number] Acct: [id number] Name: KENDALL VASQUES Rep #: [id number] : 1985 38 From: Taqueria Betancur CRNA PCP: MÓNICA Garcia Status:REG SDC Y Race: C Location: [place] [address] Anesthesia: Postop Eval I Current Vital Signs Temperature: 974 F Pulse Rate: 105 Blood Pressure: 124/73 Respiratory Rate: 24 Pulse Ox: 100 Oxygen Delivery Method: Venturi Mask Oxygen Flow Rate (L/min): 5 Assessment Airway patent: Yes Spontaneous unlabored respirations: Yes Mental status: Awake and Uncooperative nausea: No Vomiting: No Anesthesia Complication: No Fluid Hydration Crystalloid volume administer (ml): 750 Total IV fluid infused: 750 Progress Note Anesthesia document: Postop Eval 1 completed: Yes 04/18/24 1015 Date Taqueriatesfaye Ramirezley DETENTION OFFICER Cosigner Signature: Date CC: Signed Normal [facility] MR/[id number] 04-18-2024 MR/POSTOPAN2 [facility] Medical Records Department [address] [place] [address] Anesthesia Postop Eval II 04/18/24 1035 MR#: [id number] Acct: [id number] Name: KENDALL VASQUES Rep #: [id number] : 1985 38 From: Seven Short MD PCP: MÓNICA Garcia Status:REG SDC Y Race: C Location: [address] Anesthesia Postop Eval I Sum Postop Eval Completion status Anesthesia document: Postop Eval 1 completed: Yes Anesthesia Postop Eval I Summary Anesthesia Postop Eval I Summary: Anesthesia Postop Eval I: Assessment Summary Airway patent Yes 04/18/24 10:15 DETENTION OFFICER.PKEL Spontaneous unlabored Yes 04/18/24 10:15 DETENTION OFFICER.PKEL respirations Mental status Awake, 04/18/24 10:15 DETENTION OFFICER.PKEL Uncooperative nausea No 04/18/24 10:15 DETENTION OFFICER.PKEL Vomiting No 04/18/24 10:15 DETENTION OFFICER.PKEL Anesthesia Postop Eval I: Fluid Summary Crystalloid volume administer 750 04/18/24 10:15 DETENTION OFFICER.PKEL (ml) Colloids volume administered ( ml) Blood Product volume administered (ml) Total IV fluid infused 750 04/18/24 10:15 DETENTION OFFICER.PKEL Anesthesia Postop Eval I: Summary Notes Anesthesia Complication No 04/18/24 10:15 DETENTION OFFICER.PKEL Anesthesia Complication Comment: Post-operative progress note Anesthesia: Postop Eval II Evaluation Mental status: Awake Pain Level: 0 nausea: No Vomiting: No 04/18/24 1035 Date Seven Knutson Signature: Date CC: Signed Normal [facility] Operative Reporton Operative Report [facility] Medical Records Department [address] [place] [address] Operative Report 04/18/24 0948 MR#: [id number] Acct: [id number] Name: KENDALL VASQUES Rep #: [id number] : 1985 38 From: Cheo Arevalo MD PCP: MÓNICA Garcia Status:[facility] Location: [place] [address] Operative Report (Standard) Operative Information Date of Procedure: 04/18/24 Pre-Operative Diagnosis: vallecular cyst Post-Operative Diagnosis: same Surgery/Procedure Performed: Direct laryngoscopy with excision of vallecular cyst devops solutions architect: No Type of Anesthesia: General RN Documented Start/Stop Times: Operation Date: 04/18/24 09:15 Case Time Into Pre-Op 04/18/24 07:25 Procedure Start Time: 09:35 Procedure Stop Time: 09:46 Select all DRAINS/GRAFTS/IMPLANTS that apply: None Estimated Blood Loss: minimal Specimen collected: Yes Description of specimen(s) removed: vallecular cyst Description of surgery: The patient was taken to the operating room on 04/18/2024. She was placed in the supine position on the operating room table. She was given sufficient general endotracheal anesthesia. The table was turned 90 degrees in a clockwise fashion. A gum guard was placed on the upper dentition. A sliding Jaylen laryngoscope was inserted in the patient's mouth and the base of tongue and vallecula were examined. I then removed the laryngoscope and switched to a Devon laryngoscope. This was reinserted and provided better visualization of the vallecular cyst. I then grasped the cyst wall with up-biting cup forceps. The cyst was removed piecemeal in its entirety and sent for permanent section. I then obtained hemostasis with topical adrenaline pledgets. The pledgets were then removed. Hemostasis was ensured. All instrumentation was then removed. The patient was awoken and brought to the recovery room in stable condition. Blood loss minimal, replacement none. Sponge, needle, and instrument count were correct at the end of the procedure. Surgical Findings: vallecular cyst Complications Complications: No 04/18/24 0952 Cosigner Signature (if applicable): CC: MÓNICA Cuevas; Dr. Cheo Arevalo MD Signed Normal [facility] Surgery Specimen Level IIIon 04-18-2024 Surgery Specimen Level III Patient Age/Sex Location Account Attending Physician KENDALL VASQUES 38/F [facility] [id number] Dr. Cheo Arevalo MD Specimen: [id number] Received: 04/18/24 Status: CLARA Roth Num: [id number] Spec Type: Cyst Subm Dr: Dr. Cheo Arevalo MD HEADER OPERATION: Diagnostic laryngoscopy with excision of cyst PRE-OP DIAGNOSIS: Cyst of pharynx TISSUE SUBMITTED: Vallecular cyst MICROSCOPIC DIAGNOSIS Pharynx, vallecular cyst, excision: * Squamous lined cyst with abundant lymphoid tissue, favor reactive process - see note and Comment. Note: Immunostains were utilized to further assess the lymphoid tissue. There is a mixture of CD3+CD5+ T-cells and CD20+PAX5+ B-cells. CD10 highlights the germinal centers which are BC6+ and BCL2 negative. CD23+ follicular dendritic meshworks are maintained. BCL1 is negative. CD138 highlights the plasma cells and MOSES for kappa and lambda light chains is polytypic with a ratio of 1:1. These findings support a benign reactive lymphoid process. COMMENT Selected slides/imagers were reviewed in intradepartmental consultation ([facility]) by Dr Christine Magana (hematopathology division) and Dr Rosalva Bourgeois (head and neck pathology division). MICROSCOPIC DESCRIPTION Slides are reviewed. All matched controls reacted appropriately IHCs were performed at [facility]: All immunohistochemistry, in situ hybridization, and histochemical tests were developed by and are performed at the [facility], [address] [place] [address], ??? [address] [place] [address]. All Immunofluorescent (IF) tests were developed by and are performed at the [facility], [address] [place] [address] ???[id number]. All tests reported here, except those addressing HER2 overexpression as a predictive marker, have not been cleared by or approved by the [place] Food and Drug Administration (FDA). The laboratory is regulated under CLIA as qualified to perform high-complexity testing. The tests are used for clinical purposes. They should not be regarded as investigational or for research. GROSS DESCRIPTION Received in formalin labeled with the patient's name Kendall Vasques and is not designated are five fragments of pink-falk, smooth, focally wrinkled, irregular shaped, fibrous tissue fragments. Sectioning is unremarkable. Specimen is entirely submitted as follows: Cassette summary:1-one fragment inked black and sectioned2-one fragment inked blue and Patient Age/Sex Location Account Attending Physician KENDALL VASQUES 38/F [facility] [id number] Dr. Cheo Arevalo MD sectioned3-one fragment inked black and sectioned4-one fragment inked blue and bisected5-one fragment inked blue and bisectedJK 04/18/2024 TC: CPT: 50398, 48075, [id number], ISHx2 Patient Age/Sex Location Account Attending Physician KENDALL VASQUES 38/ [facility] [facility] [place] [id number] Dr. Cheo Arevalo MD Signed (signature on file) Dr. Yamileth Keynon MD 05/05/24 1203 Normal [facility] Comment on above: Performed By: #### L 500.2500, L100.0100 #### [facility] Laboratory [address] [place], [address] Gastric Emptying Study - 4 H Dewey 03-17-2024 Gastric Emptying Study - 4 HR [facility] Imaging Services [address] [place], [place] [address] Gastric Emptying Study - 4 HR MR#: [id number] Acct: [id number] Name: KENDALL VASQUES Rep #: [id number] : 1985 F 38 From: Moises Dockery PCP: MÓNICA Garcia Status: REG CLI Study: Gastric Emptying Study - 4 HR Date of Exam: Exam# [id number] Ordering Dr: Cassy Joiner PROCEDURE: GASTRIC EMPTYING STUDY - 4 HR REASON FOR EXAM: Nausea with vomiting. TECHNIQUE: Nuclear medicine solid phase gastric emptying study. RADIOPHARMACEUTICAL: 1.1 millicurie technetium 99 M sulfur colloid, combined with 2 eggs, 2 slices of bread, and 6 ounces of water. COMPARISON: None. FINDINGS: % gastric emptying, at the following timeframes: 50 minutes: 13%; 111 minutes: 31%; 234 minutes: 68%. Gastric emptying half-time calculated at 171.8 minutes. NM/Gastric Emptying Study - 4 HR IMPRESSION: Normal solid phase gastric emptying. Reading Location: [address] CC: MÓNICA Joiner; MÓNICA Cuevas [employer] Designer: Signed Normal [facility] Abdomen/Pelvis without Conto n 03-10-2024 Abdomen/Pelvis without Cont [facility] Imaging Services [address] [place] [address] Abdomen/Pelvis without Cont MR#: [id number] Acct: [id number] Name: KENDALL VASQUES Rep #: [id number] : 1985 F 38 From: Kenneth Orellana MD PCP: MÓNICA Garcia Status: REG ER Study: Abdomen/Pelvis without Cont Date of Exam: 02/17 05/10 Exam# [id number] Ordering Dr: Home Grace DO [id number] EXAM: CT ABDOMEN AND PELVIS WITHOUT INTRAVENOUS CONTRAST CLINICAL INDICATION: Intractable nausea and vomiting TECHNIQUE: Helically acquired images were obtained of the abdomen and pelvis without intravenous contrast. This CT exam was performed using one or more of the following dose reduction techniques: automated exposure control, adjustment of the mA and/or kV according to patient size, and/or use of iterative reconstruction technique. RADIATION DOSE: CTDIvol = 14.43 mGy, DLP = 702.79 mGy-cm COMPARISON: No relevant prior studies available. FINDINGS: LOWER THORAX: Unremarkable. Lung bases are clear. No cardiomegaly. No significant pericardial effusion. ABDOMEN: LIVER: Unremarkable. Homogeneous. GALLBLADDER AND BILE DUCTS: Unremarkable. No calcified gallstones. No gallbladder distention or wall edema. No intra- or extrahepatic biliary ductal dilation. PANCREAS: Unremarkable. No focal cystic mass. SPLEEN: Unremarkable. Normal size without focal cystic or solid mass. ADRENALS: Unremarkable. No nodules. KIDNEYS AND URETERS: Tiny nonobstructing stone in the left kidney. Normal renal size and position. STOMACH AND BOWEL: Mild diffuse wall thickening of the descending and sigmoid colon. Small bowel is unremarkable. No stomach or bowel distention. PELVIS: APPENDIX: The appendix is normal. BLADDER: Unremarkable. REPRODUCTIVE: Hysterectomy. ABDOMEN and PELVIS: INTRAPERITONEAL SPACE: Unremarkable. No ascites or other fluid collection. No free air. BONES/JOINTS: Unremarkable. No suspicious lytic or blastic abnormality. SOFT TISSUES: Unremarkable. No discrete abdominal or pelvic wall hernia. VASCULATURE: Unremarkable. Abdominal aorta is non-dilated. LYMPH NODES: Unremarkable. No enlarged lymph nodes. CT/Abdomen/Pelvis without Cont IMPRESSION: 1. Mild diffuse wall thickening of the descending and sigmoid colon. This could indicate a mild infectious or inflammatory colitis. 2. Tiny nonobstructing stone in the left kidney. Electronically Signed: Kenneth Orellana MD at 2:48 EST , CC: MÓNICA Cuevas; Home Grace DO [employer] Designer: Signed Normal [facility] Absolute lymphocyte countOrd ered By: Home Grace on 03-10-2024 Lymphocytes Auto (Unsp spec) [#/Vol] 0.35 10*3/uL Low 0.83-4.51 [facility] Absolute neutrophil countOrd ered By: Home Grace on 03-10-2024 Neutrophils (Bld) [#/Vol] 10.5 10*3/uL High 2.0-7.7 [facility] Alcohol, Blood (Medical)-Ser umon 03-10-2024 SERUM ETOH 4.0 mg/dL Normal [facility] Comment on above: Result Comment: The serum:whole blood ethanol ratio is approximately 1.14 and varies slightly with hematocrit. Medical Alcohol reference interval and critical value in non-tolerant individuals; 50 - 100 Impairment 100 Intoxication 100 - 250 Severe Poisoning 250 - 400 Deep/possible fatal coma Performed By: #### L 503.6005, L500.3400, L504.2610, L500.2500, L100.0100, L501.9100, L505.5000, L501.2450, L700.6800, L501.5200 ####[facility] [address] [facility] [address] [place], [place], [id number] Automated blood erythrocyte countOrdered By: Home Grace on 03-10-2024 RBC (Bld) [#/Vol] 4.46 10*6/uL Normal 4.2-5.[address] [facility] Comment on above: Performed By: #### L 503.6005, L500.3400, L504.2610, L500.2500, L100.0100, L501.9100, L505.5000, L501.2450, L700.6800, L501.5200 ####[facility] [address] [place], [place], [id number] Automated blood hematocrit ( percentage)Ordered By: Home Grace on 03-10-2024 Hematocrit (Bld) [Volume fraction] 41.3 % Normal 37-47 [facility] Comment on above: Performed By: #### L 503.6005, L500.3400, L504.2610, L500.2500, L100.0100, L501.9100, L505.5000, L501.2450, L700.6800, L501.5200 ####[facility] [address] [place], [place], [id number] Automated lymphocyte count a s percentage of total leukocytesOrdered By: Home Grace on 03-10-2024 Lymphocytes/100 WBC Auto (Unsp spec) 3.1 % Low 19-41 [facility] Basic Metabolic Profile (BMP )on 03-10-2024 BUN/CRE 14.5 RATIO Normal 10-20 [facility] Comment on above: Performed By: #### L 503.6005, L500.3400, L504.2610, L500.2500, L100.0100, L501.9100, L505.5000, L501.2450, L700.6800, L501.5200 ####[facility] [address] [place], [place], [id number] CA,Total 9.4 mg/dL Normal 8.5-10.1 [facility] Comment on above: Performed By: #### L 503.6005, L500.3400, L504.2610, L500.2500, L100.0100, L501.9100, L505.5000, L501.2450, L700.6800, L501.5200 ####[facility] [address] [place], [place], [id number] ECRCL 64.25 ml/min Normal [facility] Comment on above: Performed By: #### L 503.6005, L500.3400, L504.2610, L500.2500, L100.0100, L501.9100, L505.5000, L501.2450, L700.6800, L501.5200 ####[facility] [address] [place], [address] EST GFR - AA 67 mL/min Normal >60 [facility] Comment on above: Result Comment: Afri can Cymro GFR Calc Performed By: #### L 503.6005, L500.3400, L504.2610, L500.2500, L100.0100, L501.9100, L505.5000, L501.2450, L700.6800, L501.5200 ####[facility] [address] [place], [place], [id number] GAP 13 Normal 5-15 [facility] Comment on above: Performed By: #### L 503.6005, L500.3400, L504.2610, L500.2500, L100.0100, L501.9100, L505.5000, L501.2450, L700.6800, L501.5200 ####[facility] [address] [place], [address] Basophil percentageOrdered B y: Home Grace on 03-10-2024 Basophils/100 WBC (Bld) 0.2 % Normal 0-1 [facility] Comment on above: Performed By: #### L 503.6005, L500.3400, L504.2610, L500.2500, L100.0100, L501.9100, L505.5000, L501.2450, L700.6800, L501.5200 ####[facility] [address] [place], [address] Bilirubin Test strip Ql (U)O rdered By: Home Grace on 03-10-2024 Bilirubin Ql (U) 1 mg/dL High Negative [facility] Comment on above: COLOR OF URINE MAY A FFECT DIPSTICK RESULTS. Bilirubin directOrdered By: Home Grace on 03-10-2024 Bilirubin.direct [Mass/Vol] 0.08 mg/dL Normal 0.00-0.30 [facility] Comment on above: Performed By: #### L 503.6005, L500.3400, L504.2610, L500.2500, L100.0100, L501.9100, L505.5000, L501.2450, L700.6800, L501.5200 ####[facility] [address] [place], [place], [address] Bilirubin, totalOrdered By: Home Grace on 03-10-2024 Bilirubin [Mass/Vol] 0.60 mg/dL Normal 0.20-1.00 [facility] Comment on above: For patients on eltr ombopag therapy, use of Dimension [place] TBIL is not recommended. Result Comment: For patients on eltrombopag therapy, use of Dimension [place] TBIL is not recommended. Performed By: #### L 503.6005, L500.3400, L504.2610, L500.2500, L100.0100, L501.9100, L505.5000, L501.2450, L700.6800, L501.5200 ####[facility] [address] [place], [place], [address] Blood urea nitrogen (BUN)/cr eatinine ratioOrdered By: Home Grace on 03-10-2024 Urea nitrogen/Creatinine [Mass ratio] 14.5 mg/mg 12-05 [facility] Brain/Head without Contrasto n 03-10-2024 Brain/Head without Contrast [facility] Imaging Services [address] [place], [place] [address] Brain/Head without Contrast MR#: [id number] Acct: [id number] Name: KENDALL VASQUES Rep #: [id number] : 1985 F 38 From: Kenneth Orellana MD PCP: MÓNICA Garcia Status: REG ER Study: Brain/Head without Contrast Date of Exam: 02/17 05/10 Exam# [id number] Ordering Dr: Home Grace DO [id number] EXAM: CT HEAD WITHOUT INTRAVENOUS CONTRAST CLINICAL INDICATION: seizure TECHNIQUE: Multiple axial images were obtained of the head without intravenous contrast. This CT exam was performed using one or more of the following dose reduction techniques: automated exposure control, adjustment of the mA and/or kV according to patient size, and/or use of iterative reconstruction technique. RADIATION DOSE: CTDIvol = 44.99 mGy, DLP = 796.11 mGy-cm COMPARISON: Head CT 12/29/2023 FINDINGS: BRAIN AND EXTRA-AXIAL SPACES: Unremarkable. No intra- or extra-axial hemorrhage. No evidence of acute infarct. No intracranial mass or mass effect. There is preservation of the khan/white matter interface. Posterior fossa structures are unremarkable. Ventricles are appropriate for age. No hydrocephalus. Basal cisterns are patent. BONES/JOINTS: Unremarkable. No discrete lytic or blastic abnormalities. SINUSES: Unremarkable as visualized. Clear. MASTOID AIR CELLS: Unremarkable. Clear. ORBITS: Visualized globes, extraocular muscles, optic nerves and retrobulbar fat appear unremarkable. CT/Brain/Head without Contrast IMPRESSION: Negative head/brain CT without intravenous contrast. Electronically Signed: Kenneth Orellana MD at 2:42 EST , CC: MÓNICA Cueavs; Home Grace DO [employer] Designer: Signed Normal [facility] CBC W/Diff, Automatedon 02-17 Absolute Lymph 0.35 X10 3/uL Low 0.83-4.51 [facility] Comment on above: Performed By: #### L 503.6005, L500.3400, L504.2610, L500.2500, L100.0100, L501.9100, L505.5000, L501.2450, L700.6800, L501.5200 ####[facility] [address] [place], [place], [id number] Absolute Neut 10.5 X10 3/uL High 2.0-7.7 [facility] Comment on above: Performed By: #### L 503.6005, L500.3400, L504.2610, L500.2500, L100.0100, L501.9100, L505.5000, L501.2450, L700.6800, L501.5200 ####[facility] [address] [place], [place], [address] IG% 0.400 Normal 0.0-0.9 [facility] Comment on above: Result Comment: IG% - Immature Granulocytes (promyelocytes, myelocytes and metamyelocytes) > 1% indicates that a LEFT SHIFT is Present. Performed By: #### L 503.6005, L500.3400, L504.2610, L500.2500, L100.0100, L501.9100, L505.5000, L501.2450, L700.6800, L501.5200 ####[facility] [address] [place], [address] Lymphocytes/100 WBC (Bld) 3.1 % Low 19-41 [facility] Comment on above: Performed By: #### L 503.6005, L500.3400, L504.2610, L500.2500, L100.0100, L501.9100, L505.5000, L501.2450, L700.6800, L501.5200 ####[facility] [address] [place], [address] Nucleated RBC (Bld) [#/Vol] 0 10*3/uL Normal 0-5 [facility] Comment on above: Performed By: #### L 503.6005, L500.3400, L504.2610, L500.2500, L100.0100, L501.9100, L505.5000, L501.2450, L700.6800, L501.5200 ####[facility] [address] [place], [place], [id number] RDW SD 42.2 fl Normal 35.1-43.9 [facility] Comment on above: Performed By: #### L 503.6005, L500.3400, L504.2610, L500.2500, L100.0100, L501.9100, L505.5000, L501.2450, L700.6800, L501.5200 ####[facility] [address] [place], [address] Carbon dioxide measurementOr dered By: Home Grace on 03-10-2024 CO2 [Moles/Vol] 21.0 mmol/L Normal 21.0-32.0 [facility] Comment on above: Performed By: #### L 503.6005, L500.3400, L504.2610, L500.2500, L100.0100, L501.9100, L505.5000, L501.2450, L700.6800, L501.5200 ####[facility] [address] [place], [place], [address] Chest 1 View (Portable)on Chest 1 View (Portable) [facility] Imaging Services [address] [place] [address] Chest 1 View (Portable) MR#: [id number] Acct: [id number] Name: KENDALL VASQUES Rep #: [id number] : 1985 F 38 From: Kenneth Orellana MD PCP: MÓNICA Garcia Status: PRE ER Study: Chest 1 View (Portable) Date of Exam: 03/10/24 Exam# [id number] Ordering Dr: Home Grace DO [id number] EXAM: XR CHEST, 1 VIEW CLINICAL INDICATION: seizure TECHNIQUE: Frontal view of the chest. COMPARISON: Two-view chest 08/18/2022 FINDINGS: LUNGS AND PLEURAL SPACES: Unremarkable. No consolidation or edema. No pneumothorax. No effusion. HEART: Unremarkable. Cardiac silhouette not enlarged. MEDIASTINUM: Central airways and mediastinal contour are unremarkable. BONES/JOINTS: Unremarkable. No acute fracture. SOFT TISSUES: Unremarkable. RAD/Chest 1 View (Portable) IMPRESSION: No radiographic evidence of acute cardiopulmonary disease. Electronically Signed: Kenneth Orellana MD at 1:31 EST , CC: MÓNICA Cuevas; Home Grace DO [employer] Building [employer] Designer: Signed Normal [facility] Chloride measurementOrdered By: Home Grace on 03-10-2024 Chloride [Moles/Vol] 104 mmol/L Normal 98-107 [facility] Comment on above: Performed By: #### L 503.6005, L500.3400, L504.2610, L500.2500, L100.0100, L501.9100, L505.5000, L501.2450, L700.6800, L501.5200 ####[facility] [address] [facility] [place], [address] Emergency Department Summary on 03-10-[address] [facility] Medical Records Department [address] [place] [address] Emergency Department Summary 03/10/24 MR#: [id number] Acct: [id number] Name: KENDALL VASQUES Rep #: [id number] : 1985 38 From: Home Grace DO PCP: MÓNICA Garcia Status:REG ER Location: ED HPI History of Present Illness Chief Complaint: Seizure Informant: patient and EMS Narrative Narrative: Patient is a 38-year-old female with past medical history of seizure disorder depression and recurrent diarrhea for which she has been following with GI for. This evening she states she was having intractable bouts of nausea vomiting and diarrhea despite taking her home Zofran. Secondary to the uncontrolled bouts of emesis EMS was called. EMS states when they arrived the patient was awake and alert but once they placed her on the cot she began having generalized tonic-clonic seizure activity. They state they gave her intranasal Versed and upon arrival to the ER have noticed improvement in her seizure activity. EMS also reports her blood sugar was normal Based on the fact patient is altered secondary to seizure activity she cannot provide any further history [facility] History Vomiting Seizure BPPV (benign paroxysmal positional vertigo) Difficult intravenous access Non-smoker Dysautonomia-like disorder Nephrolithiasis History of echocardiogram Wears glasses Alcohol use Anemia Easy bruising Restless legs Back pain Seizures Dietary restriction History of IBS Shortness of breath on exertion History of edema Bronchitis History of irregular heartbeat Hypoglycemia Anxiety Depression Migraines Kidney disease Hypertension Home Medications ???Medication ???Instructions ???Recorded ???Last Taken ???Type albuterol sulfate 90 mcg/actuation 1 - 2 puff inhalation Q6H PRN PRN 03/22/13 05/24/14 08:49 History aerosol inhaler (Ventolin HFA) Asthma trazodone 150 mg PO/SL QHS 12/31/20 06/05/21 History diphenhydramine 25 1 tab PO QHS 10/22/21 Unknown History mg-acetaminophen 500 mg tablet (Tylenol PM Extra Strength) spironolactone 25 mg tablet 25 mg PO QDAY 07/01/23 Unknown History hydrochlorothiazide 12.5 mg capsule 12.5 mg PO QDAY 10/05/23 Unknown History potassium citrate 10 mEq (1,080 10 meq PO TID 10/05/23 Unknown History mg) tablet,extended release vortioxetine 10 mg tablet 10 mg PO QDAY 10/05/23 Unknown History (Trintellix) meclizine 25 mg tablet 25 mg PO 4X/DAY PRN PRN Dizziness 12/29/23 Unknown Rx #20 tabs ondansetron 4 mg disintegrating 4 mg PO Q8H PRN PRN Nausea #10 tabs 12/29/23 Unknown Rx tablet methocarbamol 500 mg tablet 500 mg PO TID 02/04/24 Unknown History tizanidine 2 mg tablet 4 mg PO TID PRN PRN muscle 02/04/24 Unknown History spasticity pantoprazole 40 mg tablet,delayed 40 mg PO BID N/V, Gastritis #60 02/25/24 Unknown Rx release tabs metoclopramide HCl 10 mg tablet 10 mg PO 4X/DAY PRN nausea and 03/10/24 Unknown Rx (Reglan) vomiting #28 tabs Allergy/AdvReac Type Severity Reaction Status Date / Time baclofen Allergy Severe incontinenc Verified 03/10/24 01:24 e codeine Allergy Hives Verified 03/10/24 01:24 metronidazole (From Flagyl) Allergy Shortness Verified 03/10/24 01:24 of breath morphine Allergy Hives Verified 03/10/24 01:24 shellfish derived Allergy Angioedema Verified 03/10/24 01:24 topiramate (From Topamax) Allergy Other Verified 03/10/24 01:24 tramadol AdvReac Severe seizures Verified 03/10/24 01:24 adhesive AdvReac Rash Verified 03/10/24 01:24 NSAIDS (Non-Steroidal AdvReac PT UNSURE Verified 03/10/24 01:24 Anti-Inflamma OF REACTION Family History Father No cardiac disease Mother No cardiac disease Other Arthritis Asthma Blood clot in vein Bowel disease Breast cancer CVA (cerebral vascular accident) Cervical cancer Depression Diabetes High cholesterol Hypertension Seizures Suicidal ideation Surgical History Hx of dilation and curettage History of radiofrequency ablation (RFA) of nerve of lumbar spine H/O: hysterectomy Hx of laparoscopy S/P removal of right ovary S/P tonsillectomy S/P breast lumpectomy Previous section Social History household members: spouse Smoking Status: Never smoker alcohol intake: current alcohol intake frequency: holidays/special occasions only substance use type: does not use what type of physical activity do you participate in: none ROS ROS ED Review of Systems ROS Unobtainable: due to mental status and other Details: Unable to obtain review of systems as patient (more content not included)... Normal [facility] Eosinophil percentageOrdered By: Home Grace on 03-10-2024 Eosinophils/100 WBC (Bld) 0.2 % Normal 0-5 [facility] Comment on above: Performed By: #### L 503.6005, L500.3400, L504.2610, L500.2500, L100.0100, L501.9100, L505.5000, L501.2450, L700.6800, L501.5200 ####[facility] [address] [place], [place], [id number] Erythrocyte distribution wid th ratioOrdered By: Home Grace on 03-10-2024 Erythrocyte distribution width (RBC) [Ratio] 12.4 % Normal 11.6-14.6 [facility] Comment on above: Performed By: #### L 503.6005, L500.3400, L504.2610, L500.2500, L100.0100, L501.9100, L505.5000, L501.2450, L700.6800, L501.5200 ####[facility] [address] [place], [place], [id number] Erythrocyte distribution wid th standard deviationOrdered By: Home Grace on 03-10-2024 Erythrocyte distribution width (RBC) [Ratio] 42.2 fl 35.1-43.9 [facility] Glomerular filtration rate ( GFR) estimationOrdered By: Home Grace on 03-10-2024 GFR/1.73 sq M.predicted among non-blacks MDRD (S/P/Bld) [Vol rate/Area] 55 mL/min/{1.73_m2} Low >60 [facility] Comment on above: Non- GFR Calc Result Comment: Non- GFR Calc Performed By: #### L 503.6005, L500.3400, L504.2610, L500.2500, L100.0100, L501.9100, L505.5000, L501.2450, L700.6800, L501.5200 ####[facility] [address] [place], [place], [id number] Glucose measurementOrdered B y: Home Grace on 03-10-2024 Glucose [Mass/Vol] 147 mg/dL High 74-106 [facility] Comment on above: Fasting Glucose resu lt greater than or equal to 126 mg/dL suggests DIABETES MELLITUS per A.D.A. criteria. Result Comment: Fast ing Glucose result greater than or equal to 126 mg/dL suggests DIABETES MELLITUS per A.D.A. criteria. Performed By: #### L 503.6005, L500.3400, L504.2610, L500.2500, L100.0100, L501.9100, L505.5000, L501.2450, L700.6800, L501.5200 ####[facility] [address] [place], [address] Hemoglobin measurementOrdere d By: Home Grace on 03-10-2024 Hemoglobin (Bld) [Mass/Vol] 13.0 g/dL Normal 12.0-15.0 [facility] Comment on above: Performed By: #### L 503.6005, L500.3400, L504.2610, L500.2500, L100.0100, L501.9100, L505.5000, L501.2450, L700.6800, L501.5200 ####[facility] [address] [facility] [place], [address] Immature granulocytes/100 WB C Auto (Bld)Ordered By: Home Grace on 03-10-2024 Immature granulocytes/100 WBC (Bld) 0.400 % 0.0-0.9 [facility] Comment on above: IG% - Immature Granu locytes (promyelocytes, myelocytes and metamyelocytes) > 1% indicates that a LEFT SHIFT is Present. Influenza virus A and B and SARS-CoV-2 (COVID-19) and Respiratory syncytial virus RNAOrdered By: Home Grace on 03-10-2024 SARS-CoV-2 (COVID-19) RNA DAYAMI+probe Ql (Unsp spec) [facility] Ketones Test strip Ql (U)Ord ered By: Home Grace on 03-10-2024 Ketones Ql (U) 50 mg/dl High Negative [facility] LDHon 03-10-2024 LDH 355 U/L High 84-246 [facility] Comment on above: Performed By: #### L 501.9520, L3410.2400 #### [facility] [address] [facility] [address] [place], [place], [id number] Lactate dehydrogenase (LDH) measurementOrdered By: Home Grace on 03-10-2024 LDH [Catalytic activity/Vol] 355 U/L High 84-246 [facility] Lactic acid measurementOrder ed By: Home Grace on 03-10-2024 Lactate [Moles/Vol] 1.0 mmol/L Normal 0.4-1.[address] [facility] Comment on above: Order Comment: Y Performed By: #### L 503.6005, L500.3400, L504.2610, L500.2500, L100.0100, L501.9100, L505.5000, L501.2450, L700.6800, L501.5200 ####[facility] [address] [place], [place], [id number] Lipase measurementOrdered By : Home Grace on 03-10-2024 Lipase [Catalytic activity/Vol] 35 U/L Normal 13-75 [facility] Comment on above: Please note:LIPASE r evised reference range effective 22. New Lipase methodology. Expected to produce lower values than the previous assay method. NEW Reference Range: 13 - 75 U/L Result Comment: Plea note: LIPASE revised reference range effective 22. New Lipase methodology. Expected to produce lower values than the previous assay method. NEW Reference Range: 13 - 75 U/L Performed By: #### L 503.6005, L500.3400, L504.2610, L500.2500, L100.0100, L501.9100, L505.5000, L501.2450, L700.6800, L501.5200 ####[facility] [address] [place], [place], [id number] Liver Profileon 03-10-2024 ALK P 70 U/L Normal 45-117 [facility] Comment on above: Performed By: #### L 503.6005, L500.3400, L504.2610, L500.2500, L100.0100, L501.9100, L505.5000, L501.2450, L700.6800, L501.5200 ####[facility] [address] [place], [place], [id number] T PROT 7.9 g/dL Normal 6.4-8.2 [facility] Comment on above: Performed By: #### L 503.6005, L500.3400, L504.2610, L500.2500, L100.0100, L501.9100, L505.5000, L501.2450, L700.6800, L501.5200 ####[facility] [address] [place], [address] Liver ProfileOrdered By: Krishna Grace on 03-10-2024 AST [Catalytic activity/Vol] 24 U/L Normal 15-37 [facility] Comment on above: Performed By: #### L 503.6005, L500.3400, L504.2610, L500.2500, L100.0100, L501.9100, L505.5000, L501.2450, L700.6800, L501.5200 ####[facility] [address] [place], [place], [id number] M100.678on 03-10-2024 M100.678 Pending SARS-CoV-2 (COVID 19) Negative INFLUENZA A Negative INFLUENZA B Negative RSV PCR Negative Normal [facility] Comment on above: Performed By: #### M 100.678 ####[facility] [address] [place], [address] MCV (mean corpuscular volume ) determinationOrdered By: Home Grace on 03-10-2024 MCV (RBC) [Entitic vol] 92.6 fL Normal 81-99 [facility] Comment on above: Performed By: #### L 503.6005, L500.3400, L504.2610, L500.2500, L100.0100, L501.9100, L505.5000, L501.2450, L700.6800, L501.5200 ####[facility] [address] [place], [address] Magnesium measurementOrdered By: Home Grace on 03-10-2024 Magnesium [Mass/Vol] 1.9 mg/dL Normal 1.6-2.6 [facility] Comment on above: Performed By: #### L 503.6005, L500.3400, L504.2610, L500.2500, L100.0100, L501.9100, L505.5000, L501.2450, L700.6800, L501.5200 ####[facility] [address] [place], [place], [id number] Mean corpuscular hemoglobin (MCH) determinationOrdered By: Home Grace on 03-10-2024 MCH (RBC) [Entitic mass] 29.1 pg Normal 27.0-32.0 [facility] Comment on above: Performed By: #### L 503.6005, L500.3400, L504.2610, L500.2500, L100.0100, L501.9100, L505.5000, L501.2450, L700.6800, L501.5200 ####[facility] [address] [place], [place], [id number] Mean corpuscular hemoglobin concentration (MCHC) determinationOrdered By: Home Grace on 03-10-2024 MCHC (RBC) [Mass/Vol] 31.5 g/dL Low 32-36 [facility] Comment on above: Performed By: #### L 503.6005, L500.3400, L504.2610, L500.2500, L100.0100, L501.9100, L505.5000, L501.2450, L700.6800, L501.5200 ####[facility] [address] [place], [place], [id number] Mean platelet volume determi nationOrdered By: Home Grace on 03-10-2024 Platelet mean volume (Bld) [Entitic vol] 10.6 fL Normal 6.2-12.0 [facility] Comment on above: Performed By: #### L 503.6005, L500.3400, L504.2610, L500.2500, L100.0100, L501.9100, L505.5000, L501.2450, L700.6800, L501.5200 ####[facility] [address] [place], [address] Microscopic analysis of urin e for red blood cells (RBC)Ordered By: Home Grace on 03-10-2024 Microscopic analysis of urine for red blood cells (RBC) 0-5 SEEN /hpf 0-5 [facility] Monocyte percentageOrdered B y: Home Grace on 03-10-2024 Monocytes/100 WBC (Bld) 3.7 % Normal 0-10 [facility] Comment on above: Performed By: #### L 503.6005, L500.3400, L504.2610, L500.2500, L100.0100, L501.9100, L505.5000, L501.2450, L700.6800, L501.5200 ####[facility] [address] [place], [address] Mucus LM Ql (Urine sed)Order ed By: Home Grace on 03-10-2024 Mucus Ql (Urine sed) 2+ /hpf [facility] Neutrophil percentageOrdered By: Home Grace on 03-10-2024 Neutrophils/100 WBC (Bld) 92.4 % High 47-70 [facility] Comment on above: Performed By: #### L 503.6005, L500.3400, L504.2610, L500.2500, L100.0100, L501.9100, L505.5000, L501.2450, L700.6800, L501.5200 ####[facility] [address] [place], [address] Nitrite Test strip Ql (U)Ord ered By: Home Grace on 03-10-2024 Nitrite Ql (U) Negative Negative [facility] No Panel InformationOrdered By: Home Grace on 03-10-2024 Urine Drug Screen Comment [facility] Comment on above: CONFIRMATORY TESTING FOR ALL POSITIVE URINE DRUG SCREENRESULTS WILL ONLY BE SENT OUT UPON PHYSICIAN ORDER. VISTA Urine Drug Screen methods provide only preliminaryanalytical test results. A more specific alternate chemicalmethod must be used in order to obtain a confirmedanalytical result. Gas chromatography/mass spectrometery(GC/MS) is the preferred confirmatory method. Clinicalconsideration and professional judgement should be appliedto any drug of abuse test result, particularly whenpreliminary positive results are used. URINE TCA TESTING MUST BE ORDERED SEPARATELY. USE TESTMNEMONIC: [facility] Nucleated red blood cell per centageOrdered By: Home Grace on 03-10-2024 Nucleated RBC/100 WBC (Bld) [Ratio] 0 % 0-5 [facility] Platelet countOrdered By: Ruby Grace on 03-10-2024 Platelets (Bld) [#/Vol] 146 10*3/uL Low 150-450 [facility] Comment on above: Performed By: #### L 503.6005, L500.3400, L504.2610, L500.2500, L100.0100, L501.9100, L505.5000, L501.2450, L700.6800, L501.5200 ####[facility] [address] [facility] [place], [address] Potassium measurementOrdered By: Home Grace on 03-10-2024 Potassium [Moles/Vol] 4.4 mmol/L Normal 3.5-5.1 [facility] Comment on above: Performed By: #### L 503.6005, L500.3400, L504.2610, L500.2500, L100.0100, L501.9100, L505.5000, L501.2450, L700.6800, L501.5200 ####[facility] [address] [place], [address] ,Serum,hCG Quali.on 03-10-2024 HCG, SERUM QUAL Negative Normal [facility] Comment on above: Performed By: #### L 503.6005, L500.3400, L504.2610, L500.2500, L100.0100, L501.9100, L505.5000, L501.2450, L700.6800, L501.5200 ####[facility] [address] [place], [place], [id number] Protein Test strip Ql (U)Ord ered By: Home Grace on 03-10-2024 Protein Ql (U) 30 mg/dl High Negative [facility] Quantitative urine opiates m easurementOrdered By: Home Grace on 03-10-2024 Opiates Ql (U) Positive High < 300 ng/mL [facility] Serum anion gap measurementO rdered By: Home Grace on 03-10-2024 Anion gap [Moles/Vol] 13 mmol/L 5-15 [facility] Serum beta-hCG test, qualita tiveOrdered By: Home Grace on 03-10-2024 Beta HCG ( test) Ql Negative [facility] Serum globulin measurementOr dered By: Home Grace on 03-10-2024 Globulin (S) [Mass/Vol] 3.7 g/dL Normal 2.2-4.2 [facility] Comment on above: Performed By: #### L 503.6005, L500.3400, L504.2610, L500.2500, L100.0100, L501.9100, L505.5000, L501.2450, L700.6800, L501.5200 ####[facility] [address] [place], [place], [id number] Serum or plasma alanine tellez otransferase (ALT) measurementOrdered By: Home Grace on 03-10-2024 ALT [Catalytic activity/Vol] 16 U/L Normal 13-56 [facility] Comment on above: Performed By: #### L 503.6005, L500.3400, L504.2610, L500.2500, L100.0100, L501.9100, L505.5000, L501.2450, L700.6800, L501.5200 ####[facility] [address] [place], [place], [phone](218) Serum or plasma albumin len urement (mass/volume)Ordered By: Home Grace on 03-10-2024 Albumin [Mass/Vol] 4.2 g/dL Normal 3.2-5.0 [facility] Comment on above: Performed By: #### L 503.6005, L500.3400, L504.2610, L500.2500, L100.0100, L501.9100, L505.5000, L501.2450, L700.6800, L501.5200 ####[facility] [address] [place], [address](068) Serum or plasma alkaline andre sphatase measurementOrdered By: Home Grace on 03-10-2024 ALP [Catalytic activity/Vol] 70 U/L 45-117 [facility] Serum or plasma calcium len urement (mass/volume)Ordered By: Home Grace on 03-10-2024 Calcium [Mass/Vol] 9.4 mg/dL 8.5-10.1 [facility] Serum or plasma creatinine m easurement (mass/volume)Ordered By: Home Grace on 03-10-2024 Creatinine [Mass/Vol] 1.17 mg/dL High 0.55-1.02 [facility] Comment on above: The validity of the calculated GFR & GFRAA in patients over 70 years has not been determined. Clinical correlation is essential. Result Comment: The validity of the calculated GFR GFRAA in patients over 70 years has not been determined. Clinical correlation is essential. Performed By: #### L 503.6005, L500.3400, L504.2610, L500.2500, L100.0100, L501.9100, L505.5000, L501.2450, L700.6800, L501.5200 ####[facility] [address] [place], [address](471) Serum or plasma urea nitroge n measurement (mass/volume)Ordered By: Home Grace on 03-10-2024 Urea nitrogen [Mass/Vol] 17 mg/dL Normal 7-18 [facility] Comment on above: Performed By: #### L 503.6005, L500.3400, L504.2610, L500.2500, L100.0100, L501.9100, L505.5000, L501.2450, L700.6800, L501.5200 ####[facility] [address] [place], [address] Sodium levelOrdered By: Matteo Grace on 03-10-2024 Sodium [Moles/Vol] 138 mmol/L Normal 136-145 [facility] Comment on above: Performed By: #### L 503.6005, L500.3400, L504.2610, L500.2500, L100.0100, L501.9100, L505.5000, L501.2450, L700.6800, L501.5200 ####[facility] [address] [place], [place], [id number] Squamous epithelial cells de tection in urine sediment by light microscopyOrdered By: Home Grace on 03-10-2024 Epithelial cells.squamous LM Ql (Urine sed) 0-5 SEEN /hpf - [facility] Total proteinOrdered By: Krishna Grace on 03-10-2024 Protein [Mass/Vol] 7.9 g/dL 6.4-8.2 [facility] Urinalysis, Completeon 03-10 BACTERIA RARE Normal None Seen [facility] Comment on above: Order Comment: MADY CTOR TO SPECIFY Performed By: #### L 400.0001 ####[facility] [address] [place], [address] EPI,SQUAMOUS 0-5 SEEN Normal -10 [facility] Comment on above: Order Comment: MADY CTOR TO SPECIFY Performed By: #### L 400.0001 ####[facility] [address] [place], [address] Mucus Ql (Urine sed) 2+ /hpf Normal [facility] Comment on above: Order Comment: MADY CTOR TO SPECIFY Performed By: #### L 400.0001 ####[facility] [address] [place], [place], [id number] RBC 0-5 SEEN Normal 0-5 [facility] Comment on above: Order Comment: MADY CTOR TO SPECIFY Performed By: #### L 400.0001 ####[facility] [address] [place], [address] WBC 0 SEEN Normal 0-5 [facility] Comment on above: Order Comment: MAYD CTOR TO SPECIFY Performed By: #### L 400.0001 ####[facility] [address] [place], [address] Urine Drug Screen (VISTA)on 03-10-2024 AMPHETAMINES Negative Normal <1000 ng/mL [facility] Comment on above: Performed By: #### L 503.6005, L500.3400, L504.2610, L500.2500, L100.0100, L501.9100, L505.5000, L501.2450, L700.6800, L501.5200 ####[facility] [address] [place], [place], [id number] BARBITIURATES Negative Normal < 200 ng/mL [facility] Comment on above: Performed By: #### L 503.6005, L500.3400, L504.2610, L500.2500, L100.0100, L501.9100, L505.5000, L501.2450, L700.6800, L501.5200 ####[facility] [address] [place], [address] BENZODIAZIPINE Positive Abnormal < 200 ng/mL [facility] Comment on above: Performed By: #### L 503.6005, L500.3400, L504.2610, L500.2500, L100.0100, L501.9100, L505.5000, L501.2450, L700.6800, L501.5200 ####[facility] [address] [place], [address] COCAINE Negative Normal < 300 ng/mL [facility] Comment on above: Performed By: #### L 503.6005, L500.3400, L504.2610, L500.2500, L100.0100, L501.9100, L505.5000, L501.2450, L700.6800, L501.5200 ####[facility] [address] [place], [place], [phone] ECSTACY Positive Abnormal < 500 ng/mL [facility] Comment on above: Performed By: #### L 503.6005, L500.3400, L504.2610, L500.2500, L100.0100, L501.9100, L505.5000, L501.2450, L700.6800, L501.5200 ####[facility] [address] [place] [address] METHADONE Negative Normal < 300 ng/mL [facility] Comment on above: Performed By: #### L 503.6005, L500.3400, L504.2610, L500.2500, L100.0100, L501.9100, L505.5000, L501.2450, L700.6800, L501.5200 ####[facility] [address] [place], [place], [phone] OPIATES Positive Abnormal < 300 ng/mL [facility] Comment on above: Performed By: #### L 503.6005, L500.3400, L504.2610, L500.2500, L100.0100, L501.9100, L505.5000, L501.2450, L700.6800, L501.5200 ####[facility] [address] [place], [address] PCP Negative Normal < 25 ng/mL [facility] Comment on above: Performed By: #### L 503.6005, L500.3400, L504.2610, L500.2500, L100.0100, L501.9100, L505.5000, L501.2450, L700.6800, L501.5200 ####[facility] [address] [place], [place], [id number] THC Negative Normal < 50 ng/mL [facility] Comment on above: Performed By: #### L 503.6005, L500.3400, L504.2610, L500.2500, L100.0100, L501.9100, L505.5000, L501.2450, L700.6800, L501.5200 ####[facility] [address] [place], [place], [id number] VISTA UDS PH 5 Normal [facility] Comment on above: Performed By: #### L 503.6005, L500.3400, L504.2610, L500.2500, L100.0100, L501.9100, L505.5000, L501.2450, L700.6800, L501.5200 ####[facility] [address] [place], [place], [id number] Urine amphetamine measuremen tOrdered By: Home Grace on 03-10-2024 Amphetamines Ql (U) Negative <1000 ng/mL [facility] Urine benzodiazepine levelOr dered By: Home Grace on 03-10-2024 Benzodiazepines Ql (U) Positive High < 200 ng/mL [facility] Urine clarityOrdered By: Krishna Grace on 03-10-2024 Clarity (U) Sl. Cloudy Clear [facility] Urine cocaine levelOrdered B y: Home Grace on 03-10-2024 Cocaine Ql (U) Negative < 300 ng/mL [facility] Urine color determinationOrd ered By: Home Grace on 03-10-2024 Color (U) Yellow Yellow [facility] Urine bvpgz-0-yqbjglhuyaguev abinol (THC) measurementOrdered By: Home Grace on 03-10-2024 Cannabinoids Screen Ql (U) Negative < 50 ng/mL [facility] Urine glucose detectionOrder ed By: Home Grace on 03-10-2024 Glucose Ql (U) Normal mg/dl Normal [facility] Urine leukocyte esterase det ection by dipstickOrdered By: Home Grace on 03-10-2024 Leukocyte esterase Test strip Ql (U) 25 /ul High Negative [facility] Urine pHOrdered By: Home hurley on 03-10-2024 pH (U) 5.0 [pH] 5.0 - 8.0 [facility] Urine phencyclidine (PCP) de tectionOrdered By: Home Grace on 03-10-2024 Phencyclidine Ql (U) Negative < 25 ng/mL [facility] Urine sediment bacteria coun t by microscopy (number/high power field)Ordered By: Home Grace on 03-10-2024 Bacteria LM.HPF (Urine sed) [#/Area] RARE /hpf None Seen [facility] Urine specific gravity measu rementOrdered By: Home Grace on 03-10-2024 Specific gravity (U) [Rel density] 1.025 1.002-1.03 0 [facility] Urine urobilinogen measureme ntOrdered By: Home Grace on 03-10-2024 Urobilinogen Ql (U) Normal mg/dl Normal [facility] White blood cell (WBC) count Ordered By: Home Grace on 03-10-2024 WBC (Bld) [#/Vol] 11.4 10*3/uL High 4.4-11.[address] [facility] Comment on above: Performed By: #### L 503.6005, L500.3400, L504.2610, L500.2500, L100.0100, L501.9100, L505.5000, L501.2450, L700.6800, L501.5200 ####[facility] [address] [place], [address] White blood cell countOrdere d By: Home Grace on 03-10-2024 White blood cell count 0 SEEN /hpf 0-5 [facility] ED Prov Noteon 03-08-2024 ED Prov Note Drifting ED Physician Note: NAME: Kendall Vasques 38 y.o. CSN: [id number] PCP: Winsome Cuevas CNP ED Course / Medical Decision Making: Patient comes in with right flank pain for approximately a week. She was seen at [facility] in January had ultrasound of abdomen and CT scan. She said she had a HIDA scan of her gallbladder a week ago which was fine. She states they are working up for her chronic gastroparesis. She states she has chronic kidney disease and history of renal calculi. Urinalysis was positive for nitrate and glucose. Urine culture sent. Patient has numerous allergies to pain medication. She states she can take fentanyl or Dilaudid for pain. CBC is normal. Chemistries normal. Liver function amylase are normal. We discussed imaging however given patient's had numerous recent imaging she declined. I felt this is reasonable given her workup was negative as far as her labs. Also urine did not show any blood. Will treat her for the possibility of a UTI with Keflex. Urine cultures pending. Patient to follow-up with her primary doctor worsening symptoms come back to the ER. Patient told not to drive for at least 8 hours since she was given pain medication in the ER. She will have somebody pick her up. Medical Decision Making Amount and/or Complexity of Data Reviewed Independent Historian: Details: Patient gave history Labs: Details: Reviewed Clinical Impression: 1. Flank pain 2. Acute UTI Disposition: Patient is being discharged to home New Prescriptions cephALEXin (KEFLEX) 500 MG capsule Take 1 (one) capsule (500 mg total) by mouth 2 (two) times a day for 7 days . History: Chief Complaint: Flank Pain HPI: The history was obtained from the patient. She is a 38 y.o. female who presents with a chief complaint of Flank Pain. HPI patient comes in with right flank pain for approximately a week. She been self treating with Azo. She feels she might have a bad UTI or kidney stone. She has some nausea but no vomiting. She does not have any fever. She states she had a HIDA scan approximate week ago which was normal. She states she is being worked up for gastroparesis. States she has a history of kidney stones in the past. Patient's had a prior hysterectomy. PMHx: Past Medical History: Diagnosis Date Asthma Chronic kidney disease Hypertension Hypoglycemia Kidney stones Kidney stones Migraine RLS (restless legs syndrome) Seizures (HCC) Sleep apnea PMSx: Past Surgical History: Procedure Laterality Date cone biopsy cervix 2011 EXPLORATORY LAPAROTOMY to check for endometriosis. had scar tissue that was twisting the bowel and that was fixed. HYSTERECTOMY KIDNEY STONE SURGERY 2009, 2012, 2013, 2014 RIGHT OOPHORECTOMY 2014 TONSILECTOMY, ADENOIDECTOMY, BILATERAL MYRINGOTOMY AND TUBES 2012 FAM. Hx: Family History Problem Relation Age of Onset Hypertension Father Stroke Father Seizures Sister epilepsy Diabetes Maternal Grandfather Cancer Paternal Grandmother breast cancer SOC. Hx: Social History Socioeconomic History Marital status: Tobacco Use Smoking status: Never Smokeless tobacco: Never Vaping Use Vaping status: Never Used Substance and Sexual Activity Alcohol use: No Drug use: No MEDs: Previous Medications Medication Sig acetaminophen (TYLENOL) 500 MG tablet Take 2 (two) tablets (1,000 mg total) by mouth as needed for pain . albuterol (PROVENTIL) 2.5 mg /3 mL (0.083 %) nebulizer solution Take 3 mL (2.5 mg total) by nebulization every 6 (six) hours as needed for wheezing . baclofen (LIORESAL) 10 MG tablet Take 2 (two) tablets (20 mg total) by mouth every 8 (eight) hours . benzonatate (TESSALON) 100 MG capsule dicyclomine (BENTYL) 10 MG capsule Take 1 (one) capsule (10 mg total) by mouth 4 (four) times a day before meals and nightly . diphenhydrAMINE-acetaminop hen (TYLENOL PM) 25-500 mg Tab Take 1 Unspecified by mouth . gabapentin (NEURONTIN) 100 MG capsule 400mg bid x 7 d then 00mg bid x 7 days then 300mg daily x 7 d then 200 mg daily x 7 d then 100mg x7 d LORazepam (ATIVAN) 0.5 MG tablet Take by mouth . ondansetron (ZOFRAN-ODT) 4 MG disintegrating tablet Dissolve on top of tongue . sertraline (ZOLOFT) 100 MG tablet Take by mouth . tiZANidine (ZANAFLEX) 2 MG capsule Take 1 Unspecified by mouth . traZODone (DESYREL) 150 MG tablet Take 1 (one) tablet (150 mg total) by mouth every evening . Trintellix 10 mg tablet Take 1 (one) tablet (10 mg total) by mouth daily . ALL: Allergies Allergen Reactions Baclofen Other (See Comments) Slurred Speech, Lost bowel and bladder function Tramadol Seizures Bentyl [Dicyclomine] Unknown Codeine Hives Doxycycline Nausea and vomiting Flagyl [Metronidazole] Nsaids (Non-Steroidal Anti-Inflammatory Drug) Unknown Shrimp Topamax [Topiramate] Pt tolerated Topamax on 07/17 well during inpatient stay without any symptoms (more content not included)... Normal [facility] POC BASIC METABOLIC PANEL - [facility] 03-08-2024 Chloride [Moles/Vol] 104 mmol/L Normal 98-108 [facility] Comment on above: Order Comment: [facility] has implemented the eGFR calculation approach that does not have a coefficient for race that conforms to the NKF-ASN Task Force Recommendations. CO2 [Moles/Vol] 25 mmol/L Normal 21-32 [facility] Comment on above: Order Comment: [facility] has implemented the eGFR calculation approach that does not have a coefficient for race that conforms to the NKF-ASN Task Force Recommendations. Creatinine [Mass/Vol] 1.01 mg/dL Normal 0.40-1.10 [facility] Comment on above: Order Comment: [facility] has implemented the eGFR calculation approach that does not have a coefficient for race that conforms to the NKF-ASN Task Force Recommendations. Glucose [Mass/Vol] 87 mg/dL Normal 65-99 [facility] Comment on above: Order Comment: [facility] has implemented the eGFR calculation approach that does not have a coefficient for race that conforms to the NKF-ASN Task Force Recommendations. POC GFR 74 mL/min/1.73 m2 Normal >=60 [facility] Comment on above: Order Comment: [facility] has implemented the eGFR calculation approach that does not have a coefficient for race that conforms to the NKF-ASN Task Force Recommendations. Result Comment: Sammi mated GFR was calculated using the 2020 CKD-EPI creatinine equation. POC IONIZED CALCIUM 4.8 mg/dL Normal 4.5-5.3 [facility] Comment on above: Order Comment: [facility] has implemented the eGFR calculation approach that does not have a coefficient for race that conforms to the NKF-ASN Task Force Recommendations. Potassium [Moles/Vol] 3.8 mmol/L Normal 3.5-5.1 [facility] Comment on above: Order Comment: [facility] has implemented the eGFR calculation approach that does not have a coefficient for race that conforms to the NKF-ASN Task Force Recommendations. Sodium [Moles/Vol] 140 mmol/L Normal 135-145 [facility] Comment on above: Order Comment: [facility] has implemented the eGFR calculation approach that does not have a coefficient for race that conforms to the NKF-ASN Task Force Recommendations. Urea nitrogen [Mass/Vol] 11 mg/dL Normal 8-25 [facility] Comment on above: Order Comment: [facility] has implemented the eGFR calculation approach that does not have a coefficient for race that conforms to the NKF-ASN Task Force Recommendations. POC CBC AND DIFFERENTIALon 03-08-2024 BASOPHILS ABSOLUTE COUNT 0.01 K/mcL Normal 0.00-0.30 [facility] Basophils/100 WBC (Bld) 0.2 % Normal [facility] Eosinophils (Bld) [#/Vol] 0.05 10*3/uL Normal 0.00-0.50 [facility] Eosinophils/100 WBC (Bld) 0.9 % Normal [facility] Erythrocyte distribution width (RBC) [Ratio] 12.3 % Normal 11.6-14.8 [facility] Hematocrit (Bld) [Volume fraction] 40.1 % Normal 36.0-46.0 [facility] Hemoglobin (Bld) [Mass/Vol] 13.0 g/dL Normal 12.0-16.0 [facility] IG ABSOLUTE 0.01 K/mcL Normal 0.00-0.30 [facility] IG PERCENT 0.20 % Normal [facility] Comment on above: Result Comment: The IG parameter is the percentage of metamyelocytes, myelocytes and promyelocytes. An immature granulocyte count (IG) of 1% or more suggests the possibility of infection, an IG count of 3% is very likely related to an infection. Lymphocytes (Bld) [#/Vol] 2.13 10*3/uL Normal 0.90-4.00 [facility] Lymphocytes/100 WBC (Bld) 38.8 % Normal [facility] MCH (RBC) [Entitic mass] 30.7 pg Normal 26.0-34.0 [facility] MCV (RBC) [Entitic vol] 94.8 fL Normal 80.0-100.0 [facility] MEAN CORPUSCULAR HEMOGLOBIN CONC 32.4 g/dL Normal 31.0-37.0 [facility] Monocytes (Bld) [#/Vol] 0.32 10*3/uL Normal 0.30-0.90 [facility] Monocytes/100 WBC (Bld) 5.8 % Normal [facility] NEUTROPHILS ABSOLUTE COUNT 2.97 K/mcL Normal 1.70-7.00 [facility] Neutrophils/100 WBC (Bld) 54.1 % Normal [facility] Platelet mean volume (Bld) [Entitic vol] 10.9 fL Normal 9.4-12.4 [facility] Platelets (Bld) [#/Vol] 194 10*3/uL Normal 150-400 [facility] RBC (Bld) [#/Vol] 4.23 10*6/uL Normal 4.00-5.20 [facility] WBC (Bld) [#/Vol] 5.49 10*3/uL Normal 4.50-11.00 [facility] POC LIVER PANEL PLUS [facility] 03-08-2024 Albumin [Mass/Vol] 4.0 g/dL Normal 3.2-5.2 [facility] ALP [Catalytic activity/Vol] 53 U/L Normal 40-140 [facility] ALT [Catalytic activity/Vol] 15 U/L Normal 0-40 [facility] Amylase [Catalytic activity/Vol] 45 U/L Normal 25-115 [facility] Amylase [Catalytic activity/Vol] 11 U/L Normal 7-33 [facility] AST [Catalytic activity/Vol] 25 U/L Normal 0-45 [facility] Bilirubin [Mass/Vol] 0.5 mg/dL Normal 0.0-1.3 [facility] Protein [Mass/Vol] 7.3 g/dL Normal 6.0-8.0 [facility] POC URINALYSIS DIPSTICK,AUTO - [facility] 03-08-2024 POC BILIRUBIN, URINE Negative Normal Negative [facility] POC BLOOD, URINE Negative Normal Negative [facility] POC GLUCOSE, URINE 100 mg/dL Abnormal Negative [facility] POC KETONES, URINE Negative Normal Negative [facility] POC LEUKOCYTE ESTERASE, URINE Negative Normal Negative [facility] POC NITRITE, URINE Positive Abnormal Negative [facility] POC PH, URINE 7.0 Normal 5.0-7.0 [facility] POC PROTEIN, URINE Negative Normal Negative [facility] POC SPECIFIC GRAVITY 1.015 Normal 1.005-1 .02 5 [facility] POC UROBILINOGEN 1.0 mg/dL Normal < 2.0 [facility] URINE AEROBIC CULTUREon 02-17 URINE AEROBIC CULTURE URINE CULTURE ESCHERICHIA COLI 10,000-49,000 CFU/mL Escherichia coli Organism: ESCHERICHIA COLI Antibiotic Interpretation LATOYA Status Amikacin Susc Islt S <=2 F Ampicillin+Sulbac Susc Islt S <=2 F Ampicillin Susc Islt S <=2 F Aztreonam Susc Islt S <=1 F Cefazolin Susc Islt S <=4 F Breakpoints for cefazolin interpretations are based on treatment of uncomplicated UTI. If cefazolin is considered for other infections please contact the Microbiology laboratory for further testing. Cefepime Susc Islt S <=1 F Ciprofloxacin Susc Islt S <=0.25 F AVOID fluoroquinolone treatment whenever possible. Risk of serious side effects may outweigh benefit. Gentamicin Susc Islt S <=1 F Nitrofurantoin Susc Islt S <=16 F Pip+Tazo Susc Islt S <=4 F Tobramycin Susc Islt S <=1 F TMP SMX Susc Islt S <=20 F B-Lactamase Extended Susc Islt S Negative F Abnormal [facility] Comment on above: Performed By: #### [id number] #### [facility] [address] [place] [address] Jack Herrera M.D. [id number] Hepatobilliary Img w/Pharm I nton 03-01-2024 Hepatobilliary Img w/Pharm Int [facility] Imaging Services [address] [place] [address] [id number] Hepatobilliary Img w/Pharm Int MR#: [id number] Acct: [id number] Name: LAYOKENDALL DANI Rep #: [id number] : 1985 F 38 From: Rafa Fitzgerald PCP: MÓNICA Garcia Status: REG CLI Study: Hepatobilliary Img w/Pharm Int Date of Exam: 0 03/01/24 Exam# [id number] Ordering Dr: Cassy Joiner C [id number] CLINICAL: 38-year-old female with history of right upper quadrant abdominal pain. RADIONUCLIDE HEPATOBILIARY SCINTIGRAPHY COMPARISON: Abdominal ultrasound report 10/05/2023 FINDINGS: Following the intravenous administration of 5.0 mCi of 99m Tc Mebrofenin, hepatobiliary images reveal: 1. Relatively prompt and homogeneous radiopharmaceutical concentration is noted by a normal sized liver. No parenchymal defects are identified. 2. Gallbladder activity is identified at 15 minutes post radiopharmaceutical administration. 3. Small intestinal tract is observed at 30 minutes following tracer injection. 4. Washout of the radiopharmaceutical by the hepatic parenchyma appears qualitatively normal. Cholecystokinin (0.02 ug/kg) was administered intravenously over a 30-minute period. The post CCK gallbladder ejection fraction calculated at 20 minutes following Cholecystokinin administration was noted to be 35.0 % (normal greater than or equal to 35%) and 74% at 29 minutes. During 30 minutes of post CCK imaging, there is no scintigraphic evidence of reflux of the radiotracer into the common hepatic duct or refilling of the gallbladder. NM/Hepatobilliary Img w/Pharm Int IMPRESSION: 1. NORMAL 99m Tc Mebrofenin hepatobiliary imaging examination with Cholecystokinin. A. A gallbladder ejection fraction calculated to be greater than or equal to 35% following the administration of Cholecystokinin makes the probability of functional hepatobiliary disease (gallbladder and/or sphincter of Oddi dyskinesia) and/or organic hepatobiliary disease (chronic acalculous cholecystitis and/or cystic duct syndrome) to be low. (tSephanie Sotelo et al, Journal of Nuclear Medicine 32:1695, 1991). Electronically Signed: Rafa Bhatt DO at 22:16 EST , CC: MÓNICA Joiner; MÓNICA Cuevas [employer] Designer: Signed Normal [facility] Gastroenterology Visit Repor ton 02-25-2024 Gastroenterology Visit Report [facility]enterology [address] [place] [address] OFFICE VISIT Date of Service: 02/25/24 MR#: [id number] Acct: [id number] Name: KENDALL VASQUES Rep #: [id number] : 1985 Provider: MÓNICA deshpande Age/Sex: 38/F Location[place] [facility] [place] Status: Signed Intake Vital Signs 02/04/24 08:22 02/11/24 06:03 02/25/24 08:07 Height 5 ft 4 in 5 ft 4 in 5 ft 4 in Weight: 150 lb BMI 25.7 BP 94/66 Respiration 16 Pulse 96 Pulse Oximetry (%) 97 Oxygen Delivery Method room air Intake Visit Reasons: 2 W FU Chief Complaint: vertigo, vomiting, diarrhea Electrical/Instrument Technician Required: No Is patient in pain?: No Allergies baclofen Allergy (Severe, Verified 02/25/24 08:01) incontinence codeine Allergy (Verified 02/25/24 08:01) Hives metronidazole (From Flagyl) Allergy (Verified 02/25/24 08:01) Shortness of breath morphine Allergy (Verified 02/25/24 08:01) Hives shellfish derived Allergy (Verified 02/25/24 08:01) Angioedema topiramate (From Topamax) Allergy (Verified 02/25/24 08:01) Other tramadol Adverse Reaction (Severe, Verified 02/25/24 08:01) seizures adhesive Adverse Reaction (Verified 02/25/24 08:01) Rash NSAIDS (Non-Steroidal Anti-Inflamma Adverse Reaction (Verified 02/25/24 08:01) PT UNSURE OF REACTION Medications ???Medication ???Instructions ???Recorded ???Confirmed ???Type albuterol sulfate 90 mcg/actuation 1 - 2 puff inhalation Q6H PRN PRN 03/22/13 02/25/24 History aerosol inhaler (Ventolin HFA) Asthma trazodone 150 mg PO/SL QHS 12/31/20 02/25/24 History diphenhydramine 25 1 tab PO QHS 10/22/21 02/25/24 History mg-acetaminophen 500 mg tablet (Tylenol PM Extra Strength) spironolactone 25 mg tablet 25 mg PO QDAY 07/01/23 02/25/24 History hydrochlorothiazide 12.5 mg capsule 12.5 mg PO QDAY 10/05/23 02/25/24 History potassium citrate 10 mEq (1,080 10 meq PO TID 10/05/23 02/25/24 History mg) tablet,extended release vortioxetine 10 mg tablet 10 mg PO QDAY 10/05/23 02/25/24 History (Trintellix) meclizine 25 mg tablet 25 mg PO 4X/DAY PRN PRN Dizziness 12/29/23 02/25/24 Rx #20 tabs ondansetron 4 mg disintegrating 4 mg PO Q8H PRN PRN Nausea #10 tabs 12/29/23 02/25/24 Rx tablet methocarbamol 500 mg tablet 500 mg PO TID 02/04/24 02/25/24 History tizanidine 2 mg tablet 4 mg PO TID PRN PRN muscle 02/04/24 02/25/24 History spasticity pantoprazole 40 mg tablet,delayed 40 mg PO BID N/V, Gastritis #60 02/25/24 02/25/24 Rx release tabs Nurse's Note: Pantoprazole has helped. Lapoint and fried foods are now a little worse. Stool testing was not completed. No new symptoms. Frequent diarrhea, vomiting has slowed way down, mostly nausea now. Nausea is worse at bedtime. [facility] Medical History Vomiting Seizure BPPV (benign paroxysmal positional vertigo) Difficult intravenous access Non-smoker Dysautonomia-like disorder Nephrolithiasis History of echocardiogram Wears glasses Alcohol use Anemia Easy bruising Restless legs Back pain Seizures Dietary restriction History of IBS Shortness of breath on exertion History of edema Bronchitis History of irregular heartbeat Hypoglycemia Anxiety Depression Migraines Kidney disease Hypertension Surgical History Hx of dilation and curettage History of radiofrequency ablation (RFA) of nerve of lumbar spine H/O: hysterectomy Hx of laparoscopy S/P removal of right ovary S/P tonsillectomy S/P breast lumpectomy Previous section Family History Father No cardiac disease Mother No cardiac disease Other Arthritis Asthma Blood clot in vein Bowel disease Breast cancer CVA (cerebral vascular accident) Cervical cancer Depression Diabetes High cholesterol Hypertension Seizures Suicidal ideation Social History household members: spouse Smoking Status: Never smoker alcohol intake: current alcohol intake frequency: holidays/special occasions only substance use type: does not use what type of physical activity do you participate in: none HPI HPI Chief Complaint: vertigo, vomiting, diarrhea Details: KENDALL VASQUES, is a 38 F who presents to the office today for EGD 02/11/2024 Biopsies negative for EoE, Mayes's, H. pylori and celiac sprue - The nasopharynx and oropharynx are abnormal, the adenoids are large, the lingual tonsils are enlarged and there is cobblestoning of the posterior pharyngeal wall. - No gross lesions in the entire esophagus. - Z-line irregular, 39 cm from the incisors. Biopsied. - A small amount of food (residue) in the (more content not included)... Normal [facility] EGD Reporton 02-11-2024 EGD Report [facility] Medical Records Department [address] [place] [address] EGD Report MR#: [id number] Acct: [id number] Name: KENDALL VASQUES Rep #: [id number] : 1985 38 From: Bebeto York DO PCP: MÓNICA Garcia Status:REG [facility] [place] Patient Name: Kendall Vasques Procedure Date: 02/11/2024 7:21 AM Date of : 1985 Age: 38 Procedure: Upper GI endoscopy Indications: Persistent vomiting of unknown cause, Epigastric abdominal pain, Functional Dyspepsia, Dyspepsia, Indigestion Providers: Bebeto York DO Referring MD: Mónica Garcia Medicines: Monitored Anesthesia Care Patient Profile: This is a 38 year old female. Refer to note in patient chart for documentation of history and physical. Patient has symptoms of chronic dyspepsia, chronic nausea and chronic vomiting. Complications: No immediate complications. Procedure: Pre-Anesthesia Assessment: - Prior to the procedure, a History and Physical was performed, and patient medications and allergies were reviewed. The patient is competent. The risks and benefits of the procedure and the sedation options and risks were discussed with the patient. All questions were answered and informed consent was obtained. Patient identification and proposed procedure were verified by the physician in the pre-procedure area. Mental Status Examination: alert and oriented. Airway Examination: normal oropharyngeal airway and neck mobility. Respiratory Examination: clear to auscultation. Prophylactic Antibiotics: The patient does not require prophylactic antibiotics. Prior Anticoagulants: The patient has taken no anticoagulant or antiplatelet agents except for NSAID medication. ASA Grade Assessment: II - A patient with mild systemic disease. After reviewing the risks and benefits, the patient was deemed in satisfactory condition to undergo the procedure. The anesthesia plan was to use monitored anesthesia care (MAC). Immediately prior to administration of medications, the patient was re-assessed for adequacy to receive sedatives. The heart rate, respiratory rate, oxygen saturations, blood pressure, adequacy of pulmonary ventilation, and response to care were monitored throughout the procedure. The physical status of the patient was re-assessed after the procedure. After obtaining informed consent, the endoscope was passed under direct vision. Throughout the procedure, the patient's blood pressure, pulse, and oxygen saturations were monitored continuously. The Endoscope was introduced through the mouth, and advanced to the second part of duodenum. The upper GI endoscopy was accomplished without difficulty. The patient tolerated the procedure well. Scope In: 7:32:59 AM Scope Out: 7:38:08 AM Total Procedure Duration Time 0 hours 5 minutes 9 seconds Findings: The nasopharynx and oropharynx are abnormal, the adenoids are large, the lingual tonsils are enlarged and there is cobblestoning of the posterior pharyngeal wall. No gross lesions were noted in the entire esophagus. The Z-line was irregular and was found 39 cm from the incisors. Biopsies were taken with a cold forceps for histology. Verification of patient identification for the specimen was done. Estimated blood loss was minimal. A small amount of food (residue) was found in the gastric body. Patchy mildly erythematous mucosa without bleeding was found in the gastric body. Biopsies were taken with a cold forceps for histology. Verification of patient identification for the specimen was done. Estimated blood loss was minimal. Biopsies were taken with a cold forceps for Helicobacter pylori testing. Verification of patient identification for the specimen was done. Estimated blood loss was minimal. No gross lesions were noted in the entire examined duodenum. Biopsies were taken with a cold forceps for histology. Verification of patient identification for the specimen was done. Estimated blood loss was minimal. Impression: - The nasopharynx and oropharynx are abnormal, the adenoids are large, the lingual tonsils are enlarged and there is cobblestoning of the posterior pharyngeal wall. - No gross lesions in the entire esophagus. - Z-line irregular, 39 cm from the incisors. Biopsied. - A small amount of food (residue) in the stomach. - Erythematous mucosa in the gastric body. Biopsied. - No gross lesions in the entire examined duodenum. Biopsied. Recommendation: - Discharge patient to home. - Resume previous diet. - Continue present medications. - Await pathology results. - ENT referral Procedure Code(s): --- Professional --- 45909, Esophagogastroduodenoscopy , flexible, transoral; with biopsy, single or multiple CPT copyright 2021 [employer]. All rights reserved. The codes documented in this report a (more content not included)... Normal [facility] H Pylori (initial)on 024 H Pylori (initial) ------ Patient Age/Sex Location Account Attending Physician KENDALL VASQUES 38/F EN [id number] Bebeto York DO Specimen: [id number] Received: 02/11/24 Status: CLARA Roth Num: [id number] Spec Type: IMMUNO Subm Dr: Bebeto York DO PHYSICIAN INSTITUTION [place] [address] SPECIMEN INFORMATION: Tissue Source: B. Gastric body Clinical Info: Diarrhea, N V, RUQ pain Specimen Number: [id number] CPT code: 69856 METHODOLOGY: Deparaffinized sections of prefer/formalin-fixed tissue or PAP/DQ stained slides are incubated with monoclonal/polyclonal antibodies/oligonucleotide probes. Localization is made via biotin free immunoperoxidase method. Appropriate controls are performed and reacted as expected. Results on target cell population are indicated in the following table: RESULTS: ANTIBODY / CLONE RESULT H Pylori (polyclonal) Negative These tests were developed and their performance characteristics determined by [facility]. They may not have been cleared or approved by the U.S. Food and Drug Administration. The FDA has determined that such clearance or approval is not necessary. The above immunohistochemical/dual MOSES markers are ordered and reviewed by the Pathologist. INTERPRETATION: Gastric body, biopsy: No H. pylori identified on immunohistochemical stain with appropriate controls. JS 02/12/2024 Signed (signature on file) Dr. Tl Anton MD 02/12/241909 [facility] Comment on above: Performed By: #### P H.PYLORI ####[facility] [address] [facility] [place], [address] MR/POSTOP.ANEon 02-11-2024 MR/POSTOP.ANE [facility] Medical Records Department [address] [address] Anesthesia Postop Eval I 02/11/24 0747 MR#: [id number] Acct: [id number] Name: KENDALL VASQUES Rep #: [id number] : 1985 38 From: Jeffrey Gilliland PCP: MÓNICA Garcia Status:REG [facility] [place] Y Race: C Location: [place] [address] Anesthesia: Postop Eval I Current Vital Signs Temperature: 97.2 F Pulse Rate: 77 Blood Pressure: 95/61 Respiratory Rate: 16 Pulse Ox: 97 Oxygen Delivery Method: Room Air Assessment Airway patent: Yes Spontaneous unlabored respirations: Yes Mental status: Asleep nausea: No Vomiting: No Anesthesia Complication: No Fluid Hydration Crystalloid volume administer (ml): 30 Total IV fluid infused: 30 Progress Note Anesthesia document: Postop Eval 1 completed: Yes 02/11/2448 Date Jeffrey Knutson Signature: Date CC: Signed Normal [facility] [id number] 02-11-2024 MR/POSTOPAN2 [facility] Medical Records Department [address] [place] [address] Anesthesia Postop Eval II 02/11/24 1346 MR#: [id number] Acct: [id number] Name: KENDALL VASQUES Rep #: [id number] : 1985 38 From: Eduardo Guan MD PCP: Winsome Cuevas HEALTH NAVIGATOR-C Status:DEP [facility] [place] Y Race: C Location: EN Anesthesia Postop Eval I Sum Postop Eval Completion status Anesthesia document: Postop Eval 1 completed: Yes Anesthesia Postop Eval I Summary Anesthesia Postop Eval I Summary: Anesthesia Postop Eval I: Assessment Summary Airway patent Yes 02/11/24 07:48 [email or web address] Spontaneous unlabored Yes 02/11/24 07:48 [email or web address] respirations Mental status Asleep 02/11/24 07:48 [email or web address] nausea No 02/11/24 07:48 [email or web address] Vomiting No 02/11/24 07:48 [email or web address] Anesthesia Postop Eval I: Fluid Summary Crystalloid volume administer 30 02/11/24 07:48 [email or web address] (ml) Colloids volume administered ( ml) Blood Product volume administered (ml) Total IV fluid infused 30 02/11/24 07:48 [email or web address] Anesthesia Postop Eval I: Summary Notes Anesthesia Complication No 02/11/24 07:48 [email or web address] Anesthesia Complication Comment: Post-operative progress note Anesthesia: Postop Eval II Evaluation Mental status: Awake and Calm Pain Level: 0 nausea: No Vomiting: No Complications Anesthesia Complication: No 02/11/24 1346 Date Eduardo Guan MD Cosigner Signature: Date CC: Signed Normal [facility] Surgery Specimen Level Yola 02-11-2024 Surgery Specimen Level IV Patient Age/Sex Location Account Attending Physician KENDALL VASQUES 38/F EN [id number] Bebeto York DO Specimen: [id number] Received: 02/11/24 Status: CLARA Roth Num: [id number] Spec Type: EGD BIOPSY Subm Dr: Bebeto York DO HEADER OPERATION: EGD PRE-OP DIAGNOSIS: Diarrhea, N V, RUQ pain TISSUE SUBMITTED: A. Duodenum, B. Gastric body, C. Distal esophagus MICROSCOPIC DIAGNOSIS A. Duodenum, Biopsy: Duodenal Mucosa without dysplasia, intraepithelial lymphocytes, erosions, or organisms. B. Gastric Body, Biopsy: Oxyntic Mucosa without exudate, erosion, polyps, or dysplasia. An immunohistochemical stain for H. pylori with appropriate controls is negative. C. Distal Esophagus, Biopsy: Fragments of squamous and gastric epithelium and gastric mucosa without goblet cells, erosions, granulation tissue, intraepithelial neutrophils or eosinophils, or dysplasia. An Alcian Blue/PAS Stain with appropriate controls is negative for goblet cells. GISELLE 02/12/2024 COMMENT B. The results of immunohistochemistry for Helicobacter pylori will be reported separately ([id number]). C. Alcian blue/PAS stain with matched control is used in the evaluation of the specimen. MICROSCOPIC DESCRIPTION Slides are reviewed. GROSS DESCRIPTION A. Received is one container labeled with the patient's name and designated duodenum. The specimen consists of multiple irregular fragments of light falk soft tissue that in aggregate measure 1 x 0.2 x 0.1 cm. The specimen is totally submitted in one cassette. B. Received is one container labeled with the patient's name and designated gastric body. The specimen consists of multiple irregular fragments of light falk soft tissue that in aggregate measure 0.5 x 0.2 x 0.1 cm. The specimen is totally submitted in one cassette. C. Received is one container labeled with the patient's name and designated distal esophagus. The specimen consists of multiple irregular fragments of light falk soft tissue that in aggregate measure 1 x 0.5 x 0.2 cm. The specimen is totally submitted in one cassette. /SJ:cc 02/11/24 TC:4 [facility]: [id number], [id number] Patient Age/Sex Location Account Attending Physician KENDALL VASQUES 38/F JOSE ANTONIO [id number] Bebeto York DO Signed (signature on file) Dr. Tl Anton MD 02/12/241900 Normal [facility] Comment on above: Performed By: #### L 500.2500, L100.0100 #### [facility] [address] [place], [place], [id number] Celiac Disease Profileon ENDOMYSIAL IGA Negative Normal Negative [facility] Comment on above: Performed By: #### L 501.9520, L3910.7768 #### [facility] [address] [place], [place], [id number] IMMUNOGLOB A QN 322 mg/dL Normal 87-352 [facility] Comment on above: Result Comment: Perf ormed at: [facility] [id number] Customer Support Specialist: Gume Sharpe PhD, Phone: [phone] Performed By: #### L 501.9520, R7541.5424 #### [facility] [address] [place], [place], [id number] tTG IGA 3 U/mL Normal 0-3 [facility] Comment on above: Result Comment: Nega tive 0 - 3 Weak Positive 4 - 10 Positive >10 Tissue Transglutaminase (tTG) has been identified as the endomysial antigen. Studies have demonstr- ated that endomysial IgA antibodies have over 99% specificity for gluten sensitive enteropathy. Performed By: #### L [id number], L3410.2400 #### [facility] [address] [place], [place], [address] MR/PAT.RYLANDkassidy 02-05-2024 MR/PAT.RYLAND [facility] Medical Records Department [address] [place] [address] PAT - Anesthesia 02/05/24 1221 MR#: [id number] Acct: [id number] Name: KENDALL VASQUES Rep #: [id number] : 1985 38 From: Seven Short MD PCP: MÓNICA Garcia Status:PRE [facility] [place] Y Race: C Location: EN Pre-Assessment Diagnosis/Proposed Procedure Planned Operative Procedure(s): EGD Anesthesia History Anesthesia History - settlement processor: Anesthesia History - settlement processor Hx Hospitalization No 02/05/24 10:47 Any Problems With Anesthesia Yes: N,V 02/05/24 10:47 Cholinesterase deficiency No 02/05/24 10:47 You/Your Family Experience No 02/05/24 10:47 fever (hyperthermia) with Relationship SELF 10/22/21 10:51 Recent Exposure to Contagious No 11/27/22 12:02 Disease Does patient have nerve No 02/05/24 10:47 stimulator Patient instructed to have device shut off --Does patient have Pacemaker or ICD? When Was Last Pacemaker Check QUESTION #4 FULL TEXT: You/Your Family Experience fever (hyperthermia) with Anesthesia Last Oral Intake Last Oral intake: Last Oral Intake NPO since Meds taken in AM with sips of water? Meds patient instructed to take am of surgery PONV PONV - settlement processor: PONV - settlement processor Female Yes 02/05/24 10:47 HX of Motion Sickness Yes 02/05/24 10:47 HX of N/V After Surgery Yes 02/05/24 10:47 Non-Smoker Yes 02/05/24 10:47 Duration of Surgery greater No 02/05/24 10:47 than 60 minutes Number of Risk Factors 4 02/05/24 10:47 PONV Score Severe Risk 02/05/24 10:47 Height Weight Height Weight: Anesthesia: Height Weight Height 5 ft 4 in 02/04/24 08:22 Respiratory Assessment Respiratory Assessment - settlement processor: Respiratory Tract Infection Hx - settlement processor Hx Respiratory Tract Infection No 02/05/24 10:47 STOP Sleep Apnea STOP Sleep Apnea - settlement processor: STOP Sleep Apnea - settlement processor Hx Hypertension Yes: CONTROLLED WITH MED 02/05/24 10:47 Hx Sleep Apnea No 02/05/24 10:47 CPAP No 11/27/22 14:00 BIPAP No 06/06/21 19:28 Do you snore loudly (louder Yes 02/05/24 10:47 than talking or can be heard Do you often feel tired/ Yes 02/05/24 10:47 fatigued/ sleepy during daytime? Has anyone observed you stop No 02/05/24 10:47 breathing during sleep? STOP Results Positive 02/05/24 10:47 QUESTION #5 FULL TEXT : Do you snore loudly (louder than talking or can be heard through closed doors)? Tobacco Use History Tobacco Use History - settlement processor: Tobacco Use History - settlement processor Tobacco Use Smoking Status Never smoker 02/05/24 10:47 Hx Tobacco Use No 02/05/24 10:47 Years Smoking Packs Smoked per Day Smoking Cessation Date was within the last 15 years Hx Smoking Cessation Date Hx Smoking Cessation Counseling Hematologic Medial History Hematologic Hx - settlement processor: Hematologic Medical Hx - senior buyer Hx of Blood Transfusion No 02/05/24 10:47 Hx of Transfusion in last 3 No 02/05/24 10:47 Months Date of Last Transfusion (if within last 3 months) Ever experience any problems No 02/05/24 10:47 with transfusion(s)? Specify any problems Hx of Preganancy in last 3 No 02/05/24 10:47 Months Nurse Filling Out Transfusion DSCHRIBER 02/05/24 10:47 Questions: Date: 02/05/24 02/05/24 10:47 Time: 10:49 02/05/24 10:47 Patient unable to answer at this time (ie. confused, unrespo /Reproduction History /Reproductive History - settlement processor: /Reproductive Hx- settlement processor Hx Now No 02/05/24 10:47 Gestational Age (in weeks): EDC: Hx Hx Para Hx Section SAB No 02/05/24 10:47 PFSH Medical History (Updated 02/05/24 @ 10:53 by Kelsey Hutton) Vomiting Seizure BPPV (benign paroxysmal positional vertigo) Difficult intravenous access Non-smoker Dysautonomia-like disorder Nephrolithiasis History of echocardiogram Wears glasses Alcohol use Anemia Easy bruising Restless legs Back pain Seizures Dietary restriction History of IBS Shortness of breath on exertion History of edema Bronchitis History of irregular heartbeat Hypoglycemia Anxiety Depression Migraines Kidney disease Hypertension Home Medications ???Medication ???Instructions ???Recorded ???Last Taken ???Type albuterol sulfate 90 mcg/actuation 1 - 2 puff inhalation Q6H PRN PRN 03/22/13 05/24/14 08:49 History aerosol inhaler (Ventolin HFA) Asthma trazodone 150 mg PO/SL QHS 12/31/20 06/05/21 History diphenhydramine 25 1 tab PO QHS 10/22/21 Unknown History mg-acetaminoph (more content not included)... Normal [facility] Gastroenterology Visit Repor ton 02-04-2024 Gastroenterology Visit Report [facility] Gastroenterology [address] [place] [address] OFFICE VISIT Date of Service: 02/04/24 MR#: [id number] Acct: [id number] Name: KENDALL VASQUES Rep #: [id number] : 1985 Provider: MÓNICA deshpande Age/Sex: 38/F Location: [facility] [place] Status: Signed Intake Vital Signs 12/29/23 14:22 02/04/24 08:22 Height 5 ft 4 in 5 ft 4 in Weight: 151 lb 2 oz BMI 25.9 BP 126/78 H Respiration 16 Pulse 71 Pulse Oximetry (%) 100 Oxygen Delivery Method room air Intake Visit Reasons: Vomiting Chief Complaint: vertigo, vomiting, diarrhea Electrical/Instrument Technician Required: No Is patient in pain?: Yes Allergies baclofen Allergy (Severe, Verified 02/04/24 08:16) incontinence codeine Allergy (Verified 02/04/24 08:16) Hives metronidazole (From Flagyl) Allergy (Verified 02/04/24 08:16) Shortness of breath morphine Allergy (Verified 02/04/24 08:16) Hives shellfish derived Allergy (Verified 02/04/24 08:16) Angioedema topiramate (From Topamax) Allergy (Verified 02/04/24 08:16) Other tramadol Adverse Reaction (Severe, Verified 02/04/24 08:16) seizures adhesive Adverse Reaction (Verified 02/04/24 08:16) Rash NSAIDS (Non-Steroidal Anti-Inflamma Adverse Reaction (Verified 02/04/24 08:16) PT UNSURE OF REACTION Medications ???Medication ???Instructions ???Recorded ???Confirmed ???Type albuterol sulfate 90 mcg/actuation 1 - 2 puff inhalation Q6H PRN PRN 03/22/13 02/04/24 History aerosol inhaler (Ventolin HFA) Asthma trazodone 150 mg PO/SL QHS 12/31/20 02/04/24 History diphenhydramine 25 1 tab PO QHS 10/22/21 02/04/24 History mg-acetaminophen 500 mg tablet (Tylenol PM Extra Strength) spironolactone 25 mg tablet 25 mg PO QDAY 07/01/23 02/04/24 History hydrochlorothiazide 12.5 mg capsule 12.5 mg PO QDAY 10/05/23 02/04/24 History potassium citrate 10 mEq (1,080 10 meq PO TID 10/05/23 02/04/24 History mg) tablet,extended release vortioxetine 10 mg tablet 10 mg PO QDAY 10/05/23 02/04/24 History (Trintellix) meclizine 25 mg tablet 25 mg PO 4X/DAY PRN PRN Dizziness 12/29/23 02/04/24 Rx #20 tabs ondansetron 4 mg disintegrating 4 mg PO Q8H PRN PRN Nausea #10 tabs 12/29/23 02/04/24 Rx tablet methocarbamol 500 mg tablet 500 mg PO TID 02/04/24 02/04/24 History pantoprazole 40 mg tablet,delayed 40 mg PO .COMPLEX #90 tabs 02/04/24 02/04/24 Rx release tizanidine 2 mg tablet 4 mg PO PRN 02/04/24 02/04/24 History Nurse's Note: Started about a month ago. US of galbladder was normal on Thursday. Kidney specialist is concerned, she is stage 3 kidney failure. Weak, fatigues, poor appetite, alot of swelling. PFSH Medical History Seizure BPPV (benign paroxysmal positional vertigo) Difficult intravenous access Non-smoker Dysautonomia-like disorder Nephrolithiasis History of echocardiogram Wears glasses Alcohol use Anemia Easy bruising Restless legs Back pain Seizures Dietary restriction History of IBS Shortness of breath on exertion History of edema Bronchitis History of irregular heartbeat Hypoglycemia Anxiety Depression Migraines Kidney disease Hypertension Surgical History H/O: hysterectomy Hx of laparoscopy S/P removal of right ovary S/P tonsillectomy S/P breast lumpectomy Previous section Family History Father No cardiac disease Mother No cardiac disease Other Arthritis Asthma Blood clot in vein Bowel disease Breast cancer CVA (cerebral vascular accident) Cervical cancer Depression Diabetes High cholesterol Hypertension Seizures Suicidal ideation Social History household members: spouse Smoking Status: Never smoker alcohol intake: current alcohol intake frequency: holidays/special occasions only substance use type: does not use what type of physical activity do you participate in: none HPI HPI Chief Complaint: vertigo, vomiting, diarrhea Details: KENDALL VASQUES, is a 38 F who presents to the office today for ABD US 01/30/2024 unremarkable ABD US 10/05/2023 No acute sonographic abnormality is demonstrated in the right upper quadrant. Minimal sludge within the gallbladder. LABS 01/30/2024 BUN, Creat, HGB and Albumin are all WNL Colonoscopy 2019 - she reports this was normal EGD 10/23/2021 ([facility]) mild gastritis, biopsy negative for Mayes's and H. pylori - started Omeprazole OTC 1 week ago - no improvement - weak, fatigue - denies any alcohol - denies use of NSAIDS - caffeine - 1 cup a day - she is a non-smoker - she reports she is experiencing night sweats - denies any fever (more content not included)... Normal [facility] Thyroid Stim Hormone (TSH)on 02-04-2024 TSH 0.648 uIU/mL Normal 0.358-3.74 0 [facility] Comment on above: Performed By: #### L [id number], L3410.2400 #### [facility] [address] [place], [address] CT ABDOMEN PELVIS WITH IV CO NTRAST ONLYon 01-11-2024 CT ABDOMEN PELVIS WITH IV CONTRAST ONLY EXAMINATION: CT ABDOMEN PELVIS WITH IV CONTRAST ONLY HISTORY: ORDERING SYSTEM PROVIDED HISTORY: RLQ abdominal pain, TECHNOLOGIST PROVIDED HISTORY: Illness/Other Reason for exam: RLQ pain Encounter Type: Initial Additional signs and symptoms: RLQ pain since yesterday; nausea ORDERING SYSTEM PROVIDED DIAGNOSIS CODES: COMPARISON: CT abdomen and pelvis 07/19/2021 TECHNIQUE: CT examination of the abdomen and pelvis following the administration of intravenous contrast. Coronal and sagittal reformations were performed. Dose reduction techniques were achieved by using automated exposure control and/or adjustment of mA and/or kV according to patient size and/or use of iterative reconstruction technique. CONTRAST: IOPAMIDOL 370 MG IODINE/ML (76 %) INTRAVENOUS SOLUTION - 75 mL, FINDINGS: Lower chest: Normal. Stomach/Duodenum: Normal. Liver: Normal. Bile ducts: Normal caliber. Gallbladder: No calcified gallstones. Normal caliber wall. Pancreas: Normal. Spleen: Normal. Adrenals: Normal. Kidneys: Normal. Ureters: Normal. Bladder: Normal. Reproductive organs: Hysterectomy. 3.7 cm dominant follicle in the left ovary. Bowel: No abnormal wall thickening. No obstruction. Appendix is not visualized. Peritoneum: Mild free fluid in the pelvis is likely physiologic. Vessels: Normal. Lymph nodes: No enlarged lymph nodes. Abdominal wall: Normal. Osseous structures: No destructive lesions. IMPRESSION: Probable dominant follicle left ovary measures 3.7 cm. Mild free peritoneal fluid in the pelvis is likely physiologic. Appendix not visualized Workstation ID: [id number] Dictated by: ARIES JONES on ThuJan 11, 2024 6:28:40 PM EST Transcribed by: ARIES JONES on ThuJan 11, 2024 6:28:40 PM EST Finalized by: ARIES JONES on ThuJan 11, 2024 6:28:40 PM EST Normal [facility] Comment on above: Order Comment: Injur y/Trauma or Illness?:Illness/OtherHow long have you had these symptoms (acute/chronic)?:AcuteReason for exam?:RLQ painType of Exam?:InitialAdditional signs and symptoms?:RLQ pain since yesterday; nausea ED Prov Noteon 01-11-2024 ED Prov Note ED PROVIDER NOTE [facility] EMERGENCY DEPARTMENT NAME: Kendall Vasques AGE: 38 y.o. : 1985 VISIT DATE: 01/11/2024 CSN: [id number] PCP: Winsome Cuveas, DECK MECHANIC Chief Complaint Patient presents with Abdominal Pain The patient presented to the emergency room with complaint she has right lower quadrant abdominal pain, started last night with the periumbilical pain migrated to the right lower quadrant, the pain is moderately severe in intensity, she has nausea but no active vomiting, patient has history of kidney stone but she feels this pain is different, she had hysterectomy with right ovary removed back in March of this year, no hematuria or dysuria Abdominal Pain Past Medical History: Diagnosis Date Asthma Chronic kidney disease Hypertension Hypoglycemia Kidney stones Kidney stones Migraine RLS (restless legs syndrome) Seizures (HCC) Sleep apnea Past Surgical History: Procedure Laterality Date cone biopsy cervix 2010 EXPLORATORY LAPAROTOMY to check for endometriosis. had scar tissue that was twisting the bowel and that was fixed. HYSTERECTOMY KIDNEY STONE SURGERY 2009, 2012, 2013, 2014 RIGHT OOPHORECTOMY 2013 TONSILECTOMY, ADENOIDECTOMY, BILATERAL MYRINGOTOMY AND TUBES 2012 Family History Problem Relation Age of Onset Hypertension Father Stroke Father Seizures Sister epilepsy Diabetes Maternal Grandfather Cancer Paternal Grandmother breast cancer Social History Socioeconomic History Marital status: Tobacco Use Smoking status: Never Smokeless tobacco: Never Vaping Use Vaping status: Never Used Substance and Sexual Activity Alcohol use: No Drug use: No Previous Medications Medication Sig acetaminophen (TYLENOL) 500 MG tablet Take 2 (two) tablets (1,000 mg total) by mouth as needed for pain . albuterol (PROVENTIL) 2.5 mg /3 mL (0.083 %) nebulizer solution Take 3 mL (2.5 mg total) by nebulization every 6 (six) hours as needed for wheezing . baclofen (LIORESAL) 10 MG tablet Take 2 (two) tablets (20 mg total) by mouth every 8 (eight) hours . benzonatate (TESSALON) 100 MG capsule dicyclomine (BENTYL) 10 MG capsule Take 1 (one) capsule (10 mg total) by mouth 4 (four) times a day before meals and nightly . diphenhydrAMINE-acetaminop hen (TYLENOL PM) 25-500 mg Tab Take 1 Unspecified by mouth . gabapentin (NEURONTIN) 100 MG capsule 400mg bid x 7 d then 00mg bid x 7 days then 300mg daily x 7 d then 200 mg daily x 7 d then 100mg x7 d LORazepam (ATIVAN) 0.5 MG tablet Take by mouth . ondansetron (ZOFRAN-ODT) 4 MG disintegrating tablet Dissolve on top of tongue . sertraline (ZOLOFT) 100 MG tablet Take by mouth . tiZANidine (ZANAFLEX) 2 MG capsule Take 1 Unspecified by mouth . traZODone (DESYREL) 150 MG tablet Take 1 (one) tablet (150 mg total) by mouth every evening . Trintellix 10 mg tablet Take 1 (one) tablet (10 mg total) by mouth daily . Allergies Allergen Reactions Baclofen Other (See Comments) Slurred Speech, Lost bowel and bladder function Tramadol Seizures Bentyl [Dicyclomine] Unknown Codeine Hives Doxycycline Nausea and vomiting Flagyl [Metronidazole] Nsaids (Non-Steroidal Anti-Inflammatory Drug) Unknown Shrimp Topamax [Topiramate] Pt tolerated Topamax on 07/17 well during inpatient stay without any symptoms Adhesive Tape-Silicones Rash Review of Systems Gastrointestinal: Positive for abdominal pain. All other systems reviewed and are negative. Patient Vitals for the past 24 hrs: BP Temp Pulse Resp SpO2 Height Weight 01/11/24 1710 -- -- -- 18 -- -- -- 01/11/24 1655 (!) 136/99 98.8 degrees F (37.1 degrees C) (!) 108 18 95 % 5' 4 68 kg (150 lb) Physical Exam Vitals and nursing note reviewed. Constitutional: General: She is not in acute distress. HENT: Head: Normocephalic. Eyes: Extraocular Movements: Extraocular movements intact. Musculoskeletal: General: Normal range of motion. Cervical back: Neck supple. Pulmonary: Effort: Pulmonary effort is normal. No respiratory distress. Abdominal: Palpations: Abdomen is soft. Tenderness: There is abdominal tenderness. There is guarding. Comments: Right lower quadrant tenderness and guarding Skin: General: Skin is warm. Neurological: General: No focal deficit present. Mental Status: She is alert and oriented to person, place, and time. Laboratory & Radiographic Imaging (if done): Results for orders placed or performed during the hospital encounter of 01/11/24 POC CBC and Differential Result Value Ref Range WBC 8.86 4.50 - 11.00 K/mcL RBC 4.25 4.00 - 5.20 M/mcL Hemoglobin 13.1 12.0 - 16.0 g/dL Hematocrit 40.3 36.0 - 46.0 % MCV 94.8 80.0 - 100.0 fL MCH 30.8 26.0 - 34.0 pg MCHC 32.5 31.0 - 37.0 g/dL RDW - CV 12.4 11.6 - 14.8 % Platelets 222 150 - 400 K/mcL MPV 9.7 9.4 - 12.4 fL Neutrophils 55.6 % Lymphocytes 34.8 % Monocytes 7.7 % Eosinophils 1.5 % Basop (more content not included)... Normal [facility] POC CBC AND DIFFERENTIALon 03-12-2023 BASOPHILS ABSOLUTE COUNT 0.03 K/mcL Normal 0.00-0.30 [facility] Basophils/100 WBC (Bld) 0.3 % Normal [facility] Eosinophils (Bld) [#/Vol] 0.13 10*3/uL Normal 0.00-0.50 [facility] Eosinophils/100 WBC (Bld) 1.5 % Normal [facility] Erythrocyte distribution width (RBC) [Ratio] 12.4 % Normal 11.6-14.8 [facility] Hematocrit (Bld) [Volume fraction] 40.3 % Normal 36.0-46.0 [facility] Hemoglobin (Bld) [Mass/Vol] 13.1 g/dL Normal 12.0-16.0 [facility] IG ABSOLUTE 0.01 K/mcL Normal 0.00-0.30 [facility] IG PERCENT 0.10 % Normal [facility] Comment on above: Result Comment: The IG parameter is the percentage of metamyelocytes, myelocytes and promyelocytes. An immature granulocyte count (IG) of 1% or more suggests the possibility of infection, an IG count of 3% is very likely related to an infection. Lymphocytes (Bld) [#/Vol] 3.08 10*3/uL Normal 0.90-4.00 [facility] Lymphocytes/100 WBC (Bld) 34.8 % Normal [facility] MCH (RBC) [Entitic mass] 30.8 pg Normal 26.0-34.0 [facility] MCV (RBC) [Entitic vol] 94.8 fL Normal 80.0-100.0 [facility] MEAN CORPUSCULAR HEMOGLOBIN CONC 32.5 g/dL Normal 31.0-37.0 [facility] Monocytes (Bld) [#/Vol] 0.68 10*3/uL Normal 0.30-0.90 [facility] Monocytes/100 WBC (Bld) 7.7 % Normal [facility] NEUTROPHILS ABSOLUTE COUNT 4.93 K/mcL Normal 1.70-7.00 [facility] Neutrophils/100 WBC (Bld) 55.6 % Normal [facility] Platelet mean volume (Bld) [Entitic vol] 9.7 fL Normal 9.4-12.4 [facility] Platelets (Bld) [#/Vol] 222 10*3/uL Normal 150-400 [facility] RBC (Bld) [#/Vol] 4.25 10*6/uL Normal 4.00-5.20 [facility] WBC (Bld) [#/Vol] 8.86 10*3/uL Normal 4.50-11.00 [facility] POC LIVER PANEL PLUS [facility] 01-11-2024 Albumin [Mass/Vol] 3.9 g/dL Normal 3.2-5.2 [facility] ALP [Catalytic activity/Vol] 79 U/L Normal 40-140 [facility] ALT [Catalytic activity/Vol] 16 U/L Normal 0-40 [facility] Amylase [Catalytic activity/Vol] 63 U/L Normal 25-115 [facility] Amylase [Catalytic activity/Vol] 13 U/L Normal 7-33 [facility] AST [Catalytic activity/Vol] 23 U/L Normal 0-45 [facility] Bilirubin [Mass/Vol] 0.5 mg/dL Normal 0.0-1.3 [facility] Protein [Mass/Vol] 8.1 g/dL High 6.0-8.0 [facility] POC [facility] P[facility] BILIRUBIN, URINE Negative Normal Negative [facility] POC BLOOD, URINE Negative Normal Negative [facility] POC GLUCOSE, URINE 100 mg/dL Abnormal Negative [facility] POC KETONES, URINE Negative Normal Negative [facility] POC LEUKOCYTE ESTERASE, URINE Negative Normal Negative [facility] POC NITRITE, URINE Negative Normal Negative [facility] POC PH, URINE 6.0 Normal 5.0-7.0 [facility] POC PROTEIN, URINE Negative Normal Negative [facility] POC SPECIFIC GRAVITY 1.020 Normal 1.005-1 .02 5 [facility] POC UROBILINOGEN 0.2 mg/dL Normal < 2.0 [facility] POC VBG (EPOC) WITH FULL DUNHAM LACEY Devries 01-11-2024 BASE EXCESS, VENOUS -2.9 Low -2.0-2.0 [facility] Comment on above: Order Comment: [facility] has implemented the eGFR calculation approach that does not have a coefficient for race that conforms to the NKF-ASN Task Force Recommendations. Specimens collected in a lithium heparin tube may show erroneous pO2, pCO2 and related calculations due to aerobic handling. If the most accurate venous blood gas results are needed, use a heparinized blood gas syringe. CALCIUM IONIZED 5.0 mg/dL Normal 4.5-5.3 [facility] Comment on above: Order Comment: [facility] has implemented the eGFR calculation approach that does not have a coefficient for race that conforms to the NKF-ASN Task Force Recommendations. Specimens collected in a lithium heparin tube may show erroneous pO2, pCO2 and related calculations due to aerobic handling. If the most accurate venous blood gas results are needed, use a heparinized blood gas syringe. Chloride [Moles/Vol] 106 mmol/L Normal 98-108 [facility] Comment on above: Order Comment: [facility] has implemented the eGFR calculation approach that does not have a coefficient for race that conforms to the NKF-ASN Task Force Recommendations. Specimens collected in a lithium heparin tube may show erroneous pO2, pCO2 and related calculations due to aerobic handling. If the most accurate venous blood gas results are needed, use a heparinized blood gas syringe. Creatinine [Mass/Vol] 0.64 mg/dL Normal 0.40-1.10 [facility] Comment on above: Order Comment: [facility] has implemented the eGFR calculation approach that does not have a coefficient for race that conforms to the NKF-ASN Task Force Recommendations. Specimens collected in a lithium heparin tube may show erroneous pO2, pCO2 and related calculations due to aerobic handling. If the most accurate venous blood gas results are needed, use a heparinized blood gas syringe. Glucose [Mass/Vol] 94 mg/dL Normal 65-99 [facility] Comment on above: Order Comment: [facility] has implemented the eGFR calculation approach that does not have a coefficient for race that conforms to the NKF-ASN Task Force Recommendations. Specimens collected in a lithium heparin tube may show erroneous pO2, pCO2 and related calculations due to aerobic handling. If the most accurate venous blood gas results are needed, use a heparinized blood gas syringe. HCO3 (Bld) [Moles/Vol] 23.8 mmol/L Low 24.0-28.0 [facility] Comment on above: Order Comment: [facility] has implemented the eGFR calculation approach that does not have a coefficient for race that conforms to the NKF-ASN Task Force Recommendations. Specimens collected in a lithium heparin tube may show erroneous pO2, pCO2 and related calculations due to aerobic handling. If the most accurate venous blood gas results are needed, use a heparinized blood gas syringe. Hematocrit (Bld) [Volume fraction] 44 % Normal 36-46 [facility] Comment on above: Order Comment: [facility] has implemented the eGFR calculation approach that does not have a coefficient for race that conforms to the NKF-ASN Task Force Recommendations. Specimens collected in a lithium heparin tube may show erroneous pO2, pCO2 and related calculations due to aerobic handling. If the most accurate venous blood gas results are needed, use a heparinized blood gas syringe. HEMOGLOBIN, CALCULATED 15.1 g/dL Normal 12.0-16.0 [facility] Comment on above: Order Comment: [facility] has implemented the eGFR calculation approach that does not have a coefficient for race that conforms to the NKF-ASN Task Force Recommendations. Specimens collected in a lithium heparin tube may show erroneous pO2, pCO2 and related calculations due to aerobic handling. If the most accurate venous blood gas results are needed, use a heparinized blood gas syringe. Oxygen saturation in Blood 59.6 % Normal 40.0-70.0 [facility] Comment on above: Order Comment: [facility] has implemented the eGFR calculation approach that does not have a coefficient for race that conforms to the NKF-ASN Task Force Recommendations. Specimens collected in a lithium heparin tube may show erroneous pO2, pCO2 and related calculations due to aerobic handling. If the most accurate venous blood gas results are needed, use a heparinized blood gas syringe. PCO2 VENOUS 47.1 mm Hg Normal 41.0-51.0 [facility] Comment on above: Order Comment: [facility] has implemented the eGFR calculation approach that does not have a coefficient for race that conforms to the NKF-ASN Task Force Recommendations. Specimens collected in a lithium heparin tube may show erroneous pO2, pCO2 and related calculations due to aerobic handling. If the most accurate venous blood gas results are needed, use a heparinized blood gas syringe. PH VENOUS 7.31 Low 7.32-7.42 [facility] Comment on above: Order Comment: [facility] has implemented the eGFR calculation approach that does not have a coefficient for race that conforms to the NKF-ASN Task Force Recommendations. Specimens collected in a lithium heparin tube may show erroneous pO2, pCO2 and related calculations due to aerobic handling. If the most accurate venous blood gas results are needed, use a heparinized blood gas syringe. PO2 VENOUS 34 mm Hg Normal 25-40 [facility] Comment on above: Order Comment: [facility] has implemented the eGFR calculation approach that does not have a coefficient for race that conforms to the NKF-ASN Task Force Recommendations. Specimens collected in a lithium heparin tube may show erroneous pO2, pCO2 and related calculations due to aerobic handling. If the most accurate venous blood gas results are needed, use a heparinized blood gas syringe. POC GFR 117 mL/min/1.73 m2 Normal >=60 [facility] Comment on above: Order Comment: [facility] has implemented the eGFR calculation approach that does not have a coefficient for race that conforms to the NKF-ASN Task Force Recommendations. Specimens collected in a lithium heparin tube may show erroneous pO2, pCO2 and related calculations due to aerobic handling. If the most accurate venous blood gas results are needed, use a heparinized blood gas syringe. Result Comment: Sammi mated GFR was calculated using the 2020 CKD-EPI creatinine equation. POC LACTATE 2.6 mmol/L High 0.6-2.0 [facility] Comment on above: Order Comment: [facility] has implemented the eGFR calculation approach that does not have a coefficient for race that conforms to the NKF-ASN Task Force Recommendations. Specimens collected in a lithium heparin tube may show erroneous pO2, pCO2 and related calculations due to aerobic handling. If the most accurate venous blood gas results are needed, use a heparinized blood gas syringe. Potassium [Moles/Vol] 3.6 mmol/L Normal 3.5-5.1 [facility] Comment on above: Order Comment: [facility] has implemented the eGFR calculation approach that does not have a coefficient for race that conforms to the NKF-ASN Task Force Recommendations. Specimens collected in a lithium heparin tube may show erroneous pO2, pCO2 and related calculations due to aerobic handling. If the most accurate venous blood gas results are needed, use a heparinized blood gas syringe. Sodium [Moles/Vol] 143 mmol/L Normal 135-145 [facility] Comment on above: Order Comment: [facility] has implemented the eGFR calculation approach that does not have a coefficient for race that conforms to the NKF-ASN Task Force Recommendations. Specimens collected in a lithium heparin tube may show erroneous pO2, pCO2 and related calculations due to aerobic handling. If the most accurate venous blood gas results are needed, use a heparinized blood gas syringe. Urea nitrogen [Mass/Vol] 13 mg/dL Normal 8-25 [facility] Comment on above: Order Comment: [facility] has implemented the eGFR calculation approach that does not have a coefficient for race that conforms to the NKF-ASN Task Force Recommendations. Specimens collected in a lithium heparin tube may show erroneous pO2, pCO2 and related calculations due to aerobic handling. If the most accurate venous blood gas results are needed, use a heparinized blood gas syringe. Basic Metabolic Profile (BMP )on 12-29-2023 BUN/CRE 15.3 RATIO Normal 10-20 [facility] Comment on above: Performed By: #### L 500.2500, L100.0100 #### [facility] [address] [place], [address] CA,Total 9.3 mg/dL Normal 8.5-10.1 [facility] Comment on above: Performed By: #### L 500.2500, L100.0100 #### [facility] [address] [place], [address] Chloride [Moles/Vol] 110 mmol/L High 98-107 [facility] Comment on above: Performed By: #### L 500.2500, L100.0100 #### [facility] [address] [place], [address] CO2 [Moles/Vol] 25.0 mmol/L Normal 21.0-32.0 [facility] Comment on above: Performed By: #### L 500.2500, L100.0100 #### [facility] [address] [place], [address] Creatinine [Mass/Vol] 0.98 mg/dL Normal 0.55-1.02 [facility] Comment on above: Result Comment: The validity of the calculated GFR GFRAA in patients over 70 years has not been determined. Clinical correlation is essential. Performed By: #### L 500.2500, L100.0100 #### [facility] [address] [place], [address] ECRCL 77.80 ml/min Normal [facility] Comment on above: Performed By: #### L 500.2500, L100.0100 #### [facility] [address] [place], [address] EST GFR - AA 82 mL/min Normal >60 [facility] Comment on above: Result Comment: Afri can Cymro GFR Calc Performed By: #### L 500.2500, L100.0100 #### [facility] [address] [place], [address] GAP 5 Normal 5-15 [facility] Comment on above: Performed By: #### L 500.2500, L100.0100 #### [facility] [address] [place], [address] GFR/1.73 sq M.predicted among non-blacks MDRD (S/P/Bld) [Vol rate/Area] 68 mL/min/{1.73_m2} Normal >60 [facility] Comment on above: Result Comment: Non- GFR Calc Performed By: #### L 500.2500, L100.0100 #### [facility] [address] [place], [address] Glucose [Mass/Vol] 94 mg/dL Normal 74-106 [facility] Comment on above: Performed By: #### L 500.2500, L100.0100 #### [facility] [address] [place], [address] Potassium [Moles/Vol] 4.5 mmol/L Normal 3.5-5.1 [facility] Comment on above: Performed By: #### L 500.2500, L100.0100 #### [facility] [address] [place], [address] Sodium [Moles/Vol] 140 mmol/L Normal 136-145 [facility] Comment on above: Performed By: #### L 500.2500, L100.0100 #### [facility] [address] [place], [address] Urea nitrogen [Mass/Vol] 15 mg/dL Normal 7-18 [facility] Comment on above: Performed By: #### L 500.2500, L100.0100 #### [facility] [address] [place], [address] Brain/Head without Contrasto n 12-29-2023 Brain/Head without Contrast [facility] Imaging Services [address] [address] Brain/Head without Contrast MR#: [id number] Acct: [id number] Name: KENDALL VASQUES Rep #: [id number] : 1985 F 38 From: Rob Leal MD PCP: Winsome Mason, HEALTH NAVIGATOR-C Status: REG ER Study: Brain/Head without Contrast Date of Exam: 12/17 04/11 Exam# [id number] Ordering Dr: Galen Mendoza DO [id number] EXAM: CT HEAD WITHOUT INTRAVENOUS CONTRAST CLINICAL INDICATION: Head injury. Seizure. TECHNIQUE: Multiple axial images were obtained of the head without intravenous contrast. This CT exam was performed using one or more of the following dose reduction techniques: automated exposure control, adjustment of the mA and/or kV according to patient size, and/or use of iterative reconstruction technique. RADIATION DOSE: CTDIvol = 44.99 mGy, DLP = 745.49 mGy-cm COMPARISON: CT head without contrast 11/17/2011. FINDINGS: BRAIN AND EXTRA-AXIAL SPACES: Unremarkable. No intra- or extra-axial hemorrhage. No evidence of acute infarct. No intracranial mass or mass effect. There is preservation of the khan/white matter interface. Posterior fossa structures are unremarkable. Ventricles are appropriate for age. No hydrocephalus. Basal cisterns are patent. BONES/JOINTS: Unremarkable. No discrete lytic or blastic abnormalities. SINUSES: Unremarkable as visualized. Clear. MASTOID AIR CELLS: Unremarkable. Clear. ORBITS: Visualized globes, extraocular muscles, optic nerves and retrobulbar fat appear unremarkable. CT/Brain/Head without Contrast IMPRESSION: Negative head/brain CT without intravenous contrast and unchanged. Electronically Signed: Rob Leal MD at 15:29 EST Reading Location ID and State: [address] [place] [address] , Service support , CC: HEALTH NAVIGATOR-C Winsome Cuevas; Dr. Galen Mendoza DO Green Building Materials Designer: Signed Normal [facility] CBC W/Diff, Automatedon 12-17 Absolute Lymph 2.16 X10 3/uL Normal 0.83-4.51 [facility] Comment on above: Performed By: #### L 500.2500, L100.0100 #### [facility] [address] [place], [address] Absolute Neut 3.9 X10 3/uL Normal 2.0-7.7 [facility] Comment on above: Performed By: #### L 500.2500, L100.0100 #### [facility] [address] [place], [address] Basophils/100 WBC (Bld) 0.6 % Normal 0-1 [facility] Comment on above: Performed By: #### L 500.2500, L100.0100 #### [facility] [address] [place], [address] Eosinophils/100 WBC (Bld) 1.5 % Normal 0-5 [facility] Comment on above: Performed By: #### L 500.2500, L100.0100 #### [facility] [address] [place], [address] Erythrocyte distribution width (RBC) [Ratio] 12.6 % Normal 11.6-14.6 [facility] Comment on above: Performed By: #### L 500.2500, L100.0100 #### [facility] [address] [place], [address] Hematocrit (Bld) [Volume fraction] 40.7 % Normal 37-47 [facility] Comment on above: Performed By: #### L 500.2500, L100.0100 #### [facility] [address] [place], [address] Hemoglobin (Bld) [Mass/Vol] 12.8 g/dL Normal 12.0-15.0 [facility] Comment on above: Performed By: #### L 500.2500, L100.0100 #### [facility] [address] [place], [address] IG% 0.200 Normal 0.0-0.9 [facility] Comment on above: Result Comment: IG% - Immature Granulocytes (promyelocytes, myelocytes and metamyelocytes) > 1% indicates that a LEFT SHIFT is Present. Performed By: #### L 500.2500, L100.0100 #### [facility] [address] [place], [address] Lymphocytes/100 WBC (Bld) 32.4 % Normal 19-41 [facility] Comment on above: Performed By: #### L 500.2500, L100.0100 #### [facility] [address] [place], [address] MCH (RBC) [Entitic mass] 30.0 pg Normal 27.0-32.0 [facility] Comment on above: Performed By: #### L 500.2500, L100.0100 #### [facility] [address] [place], [address] MCHC (RBC) [Mass/Vol] 31.4 g/dL Low 32-36 [facility] Comment on above: Performed By: #### L 500.2500, L100.0100 #### [facility] [address] [place], [address] MCV (RBC) [Entitic vol] 95.5 fL Normal 81-99 [facility] Comment on above: Performed By: #### L 500.2500, L100.0100 #### [facility] [address] [place], [address] Monocytes/100 WBC (Bld) 6.2 % Normal 0-10 [facility] Comment on above: Performed By: #### L 500.2500, L100.0100 #### [facility] [address] [place], [address] Neutrophils/100 WBC (Bld) 59.1 % Normal 47-70 [facility] Comment on above: Performed By: #### L 500.2500, L100.0100 #### [facility] [address] [place], [address] Nucleated RBC (Bld) [#/Vol] 0 10*3/uL Normal 0-5 [facility] Comment on above: Performed By: #### L 500.2500, L100.0100 #### [facility] [address] [place], [address] Platelet mean volume (Bld) [Entitic vol] 9.5 fL Normal 6.2-12.0 [facility] Comment on above: Performed By: #### L 500.2500, L100.0100 #### [facility] [address] [place], [address] Platelets (Bld) [#/Vol] 224 10*3/uL Normal 150-450 [facility] Comment on above: Performed By: #### L 500.2500, L100.0100 #### [facility] [address] [place], [address] RBC (Bld) [#/Vol] 4.26 10*6/uL Normal 4.2-5.[address] [facility] Comment on above: Performed By: #### L 500.2500, L100.0100 #### [facility] [address] [place], [address] RDW SD 44.3 fl High 35.1-43.9 [facility] Comment on above: Performed By: #### L 500.2500, L100.0100 #### [facility] [address] [place], [address] WBC (Bld) [#/Vol] 6.7 10*3/uL Normal 4.4-11.0 [facility] Comment on above: Performed By: #### L 500.2500, L100.0100 #### [facility] [address] [place], [address] Emergency Department Summary on 12-29-2023 Emergency Department Summary [facility] Medical Records Department [address] [place] [address] Emergency Department Summary 12/29/23 MR#: [id number] Acct: [id number] Name: KENDALL VASQUES Rep #: [id number] : 1985 38 From: Galen Reis PCP: MÓNICA Garcia Status:DEP ER Location: ED HPI History of Present Illness Chief Complaint: Seizure Informant: patient Narrative Narrative: Patient brought in by EMS from urgent care for witnessed seizure x 2 tonic-clonic activity. Patient deals with vertigo, she had a flare yesterday. She went to urgent care for treatment. She had the José Luis maneuver performed, she got nauseated she is given IM Phenergan. Reported staff return to check on the patient she is on the ground with tonic-clonic activity. She denies tongue biting denies incontinence of urine or stool. She reports since coming around increasing headache and right hip pain. She does admit to history of conversion disorder with nonepileptic seizures. She is followed by neurology at [facility]. She cannot recall the name at this time. She had episode over the summer at the concert with multiple [id number] seizures she is put on Keppra for 1 week. She states when she follow-up with her neurologist this was stopped. Denies cough. Hysterectomy in the past. Denies urinary symptoms. Multiple allergies to pain medicine has tolerated Dilaudid and fentanyl in the past. Prior similar symptoms: Yes PFSH PFS Medical History Seizure BPPV (benign paroxysmal positional vertigo) Difficult intravenous access Non-smoker Dysautonomia-like disorder Nephrolithiasis History of echocardiogram Wears glasses Alcohol use Anemia Easy bruising Restless legs Back pain Seizures Dietary restriction History of IBS Shortness of breath on exertion History of edema Bronchitis History of irregular heartbeat Hypoglycemia Anxiety Depression Migraines Kidney disease Hypertension Home Medications ???Medication ???Instructions ???Recorded ???Last Taken ???Type albuterol sulfate 90 mcg/actuation 1 - 2 puff inhalation Q6H PRN PRN 03/22/13 05/24/14 08:49 History aerosol inhaler (Ventolin HFA) Asthma trazodone 150 mg PO/SL QHS 12/31/20 06/05/21 History diphenhydramine 25 1 tab PO QHS 10/22/21 Unknown History mg-acetaminophen 500 mg tablet (Tylenol PM Extra Strength) sertraline 100 mg tablet (Zoloft) 100 mg PO DAILY 11/25/22 Unknown History spironolactone 25 mg tablet 25 mg PO QDAY 07/01/23 Unknown History tizanidine 2 mg tablet mg PO 07/01/23 Unknown History hydrochlorothiazide 12.5 mg capsule 12.5 mg PO QDAY 10/05/23 Unknown History potassium citrate 10 mEq (1,080 10 meq PO TID 10/05/23 Unknown History mg) tablet,extended release vortioxetine 10 mg tablet 10 mg PO QDAY 10/05/23 Unknown History (Trintellix) meclizine 25 mg tablet 25 mg PO 4X/DAY PRN PRN Dizziness 12/29/23 Unknown Rx #20 tabs ondansetron 4 mg disintegrating 4 mg PO Q8H PRN PRN Nausea #10 tabs 12/29/23 Unknown Rx tablet Allergy/AdvReac Type Severity Reaction Status Date / Time baclofen Allergy Severe incontinenc Verified 12/29/23 14:22 e codeine Allergy Hives Verified 12/29/23 14:22 metronidazole (From Flagyl) Allergy Shortness Verified 12/29/23 14:22 of breath morphine Allergy Hives Verified 12/29/23 14:22 shellfish derived Allergy Angioedema Verified 12/29/23 14:22 topiramate (From Topamax) Allergy Other Verified 12/29/23 14:22 tramadol AdvReac Severe seizures Verified 12/29/23 14:22 adhesive AdvReac Rash Verified 12/29/23 14:22 NSAIDS (Non-Steroidal AdvReac PT UNSURE Verified 12/29/23 14:22 Anti-Inflamma OF REACTION Family History Father No cardiac disease Mother No cardiac disease Other Arthritis Asthma Blood clot in vein Bowel disease Breast cancer CVA (cerebral vascular accident) Cervical cancer Depression Diabetes High cholesterol Hypertension Seizures Suicidal ideation Surgical History H/O: hysterectomy Hx of laparoscopy S/P removal of right ovary S/P tonsillectomy S/P breast lumpectomy Previous section Social History household members: spouse Smoking Status: Never smoker alcohol intake: current alcohol intake frequency: holidays/special occasions only substance use type: does not use what type of physical activity do you participate in: none ROS ROS ED Constitutional Constitutional ED: Denies chills, fever(s) or sweats Eyes Eyes: Denies change in vision ENT ENT ED: Denies dysphagia or sore throat Cardiovascular Cardiovascular: Denies chest pain, leg edema, palpitations or racing (more content not included)... Normal [facility] HIP, UNI W/ Pelvis 2-3 Views on 12-29-2023 HIP, UNI W/ Pelvis 2-3 Views [facility] Imaging Services [address] [place], [place] [id number] HIP, UNI W/ Pelvis 2-3 Views MR#: [id number] Acct: [id number] Name: KENDALL VASQUES Rep #: [id number] : 1985 F 38 From: Rob Leal MD PCP: RIGOBERTO GarciaC Status: REG ER Study: HIP, UNI W/ Pelvis 2-3 Views Date of Exam: 02/08 Exam# [id number] Ordering Dr: Galen Mendoza DO [id number] EXAM: XR RIGHT HIP WITH PELVIS WHEN PERFORMED, 2 OR 3 VIEWS CLINICAL INDICATION: injury TECHNIQUE: Two or three views of the right hip with pelvis when performed. COMPARISON: No relevant prior studies available. FINDINGS: BONES/JOINTS: Unremarkable. No displaced fracture. No destructive or sclerotic lesions. Note that overlapping bowel shadows may however obscure fine detail. Sacroiliac joint is unremarkable. No widening of the pubic symphysis. The articular structures are unremarkable. SOFT TISSUES: Unremarkable. No soft tissue swelling or gas. RAD/HIP, UNI W/ Pelvis 2-3 Views IMPRESSION: No acute fracture or dislocation of the pelvis and right hip. Electronically Signed: Rob Leal MD at 15:30 EST , CC: MÓNICA Cuevas; Dr. Galen Mendoza DO [employer] Building [employer] Designer: Signed Normal [facility] Urgent Care Visit Reporton 1 02-27-2023 Urgent Care Visit Report [facility] [address], [address] [place] [address] OFFICE VISIT Date of Service: 12/29/23 MR#: [id number] Acct: [id number] Name: KENDALL VASQUES Rep #: [id number] : 1985 Provider: SORAIDA Queen Age/Sex: 38/F Location[place] [facility] Status: Signed Intake Vital Signs 10/05/23 07:25 12/29/23 13:12 Height 5 ft 4 in BP 104/68 Blood Pressure Location Lt brachial Position Sitting Respiration 16 Pulse 81 Pulse Source NIBP Temp 98.3 F Temp Source Oral Pulse Oximetry (%) 99 Oxygen Delivery Method room air Intake Visit Reasons: VOMITING, DIZZY, RING IN EARS POSSIBLE VERTIGO Chief Complaint: vertigo, vomiting, ear ringing Electrical/Instrument Technician Required: No Is patient in pain?: No Allergies baclofen Allergy (Severe, Verified 12/29/23 14:22) incontinence codeine Allergy (Verified 12/29/23 14:22) Hives metronidazole (From Flagyl) Allergy (Verified 12/29/23 14:22) Shortness of breath morphine Allergy (Verified 12/29/23 14:22) Hives shellfish derived Allergy (Verified 12/29/23 14:22) Angioedema topiramate (From Topamax) Allergy (Verified 12/29/23 14:22) Other tramadol Adverse Reaction (Severe, Verified 12/29/23 14:22) seizures adhesive Adverse Reaction (Verified 12/29/23 14:22) Rash NSAIDS (Non-Steroidal Anti-Inflamma Adverse Reaction (Verified 12/29/23 14:22) PT UNSURE OF REACTION Is last menstrual period known: No Post menopausal: No Patient : No Have you fallen in the past year?: No Nurse's Note: vertigo with room spinning, vomiting due to room spinning, ears ringing. denies viral s/s, denies abd c/o, hysterectomy in Mar 2023. hx of same s/s and dxd with vertigo, given Meclizine which helped. PFSH Medical History Seizure BPPV (benign paroxysmal positional vertigo) Difficult intravenous access Non-smoker Dysautonomia-like disorder Nephrolithiasis History of echocardiogram Wears glasses Alcohol use Anemia Easy bruising Restless legs Back pain Seizures Dietary restriction History of IBS Shortness of breath on exertion History of edema Bronchitis History of irregular heartbeat Hypoglycemia Anxiety Depression Migraines Kidney disease Hypertension Surgical History H/O: hysterectomy Hx of laparoscopy S/P removal of right ovary S/P tonsillectomy S/P breast lumpectomy Previous section Family History Father No cardiac disease Mother No cardiac disease Other Arthritis Asthma Blood clot in vein Bowel disease Breast cancer CVA (cerebral vascular accident) Cervical cancer Depression Diabetes High cholesterol Hypertension Seizures Suicidal ideation Social History household members: spouse Smoking Status: Never smoker alcohol intake: current alcohol intake frequency: holidays/special occasions only substance use type: does not use what type of physical activity do you participate in: none HPI HPI Chief Complaint: vertigo, vomiting, ear ringing Details: KENDALL VASQUES, is a 38 F who presents to the office today for 3 day history of with dizziness with, room spinning sensation noting symptoms are exacerbated with rotating head to the right, and occasional emesis due to room spinning along with intermittent ears ringing and photophobia. No complaints of fever, chills, sweats, or chest pain/shortness of breath/dyspnea on exertion. No changes in bowel or bladder function; hysterectomy in Mar 2023. Claritin taken earlier this morning without help though patient took a prescription of Zofran which she is prescribed by her PCP for history of nephrolithiasis and kidney infections which she said did relieve her symptoms somewhat though not resolved. She noted attempting the José Luis maneuver at home without success. No other complaints at this time. PMH: BPPV, with last episode several years ago which resolved with meclizine then, she so states. ROS Const Constitutional: No other (as above) Exam Const General: cooperative, healthy appearing and no acute distress Nutritional Appearance: average body habitus Orientation: alert and awake [facility] Head: normal to inspection Ears: hearing grossly normal bilaterally, external ears normal, TM's normal bilaterally and EAC's normal Nose: external nose normal, nares normal, septum normal and no nasal discharge Face and sinus: normal facial exam, sinuses nontender and face symmetric Mouth: oral mucosae normal, lip normal, tongue normal, oropharynx normal and moist mucous membranes Throat: posterior oropharynx normal, tonsils normal, uvula midline and no postnasal drainage (more content not included)... Normal [facility] PAIN MANAGEMENTon [place] PAIN MANAGEMENT These images are not reportable by radiology and will not be interpreted by Radiologists. Normal [facility] [place] pain managementon 024 These images are not reportable by radiology and will not be interpreted by Radiologists. [facility] Work Phone: Radiofrequency Ablationon Addendum by Stef Maki DO on 12/11/2023 8:32 AM EDT Table formatting from the original result was not included. Procedure Radiofrequency Ablation Indication Spondylosis of lumbosacral region without myelopathy or radiculopathy Medications lidocaine PF (Xylocaine) 20 mg/mL (2 %) injection 15 mL (Totals for administrations occurring from 0808 to 0828 on 12/11/23) Preprocedure A history and physical has been performed, and patient medication allergies have been reviewed. The patient's tolerance of previous anesthesia has been reviewed. The risks and benefits of the procedure and the sedation options and risks were discussed with the patient. All questions were answered and informed consent obtained. Details of the Procedure Procedure: bilateral lumbar medial branches/posterior rami radiofrequency ablation to target the L4/5 and L5/S1 facet joints under fluoroscopic guidance Anesthesia: MAC Fluids: 10mL EBL: 0mL Complications: none The patient was identified in the preoperative area, and informed consent was obtained. The patient was then brought to the operating room and timeout was performed appropriately. The patient was placed in the prone position and the low back area was prepped with chlorhexidine and draped in the usual sterile fashion. Using fluoroscopic guidance, the skin and soft tissues tissue overlying needle trajectory to the appropriate target sites where the medial branches and/or dorsal rami arise on the lateral aspect of the lumbar spine were anesthetized with 2.0% Lidocaine. 20-gauge Radiofrequency [place] with 10 mm active tips Were then advanced under Fluoroscopic Guidance to the appropriate target sites. Needle tip position confirmed in at least 2 views. Motor stimulation at 2 Hz did not result in lower extremity contractions at 2.0 Volts. Thereafter, 1 mL of 2% lidocaine was applied at each needle tip radiofrequency lesioning was carried out at 80 for 80 seconds 2. [place] were then removed. Post-procedurally, patient had 5/5 muscle strength in quads/hip flexors/hamstrings/plantar flexion/dorsiflexion/FHL/E HL. The patient tolerated the procedure well. The needles were removed. The patient was then transferred to recovery room in stable condition and will follow-up with us on an outpatient basis as needed. Procedure Provider Stef Maki DO Procedure Location [facility] [place] [address] [place] [id number] Referring Provider Ivelisse Gaston, [employer] [address] [place] [address] [facility] Work Phone: [facility] Work Phone: Radiology Study observation (narrative) [facility] Work Phone: [place] PAIN MANAGEMENTon [place] PAIN MANAGEMENT These images are not reportable by radiology and will not be interpreted by Radiologists. Normal [facility] [place] pain managementon These images are not reportable by radiology and will not be interpreted by Radiologists. [facility] Work Phone: Medial Nerve Branch Blockon 11-20-2023 Addendum by Stef Maki DO on 11/20/2023 12:08 PM EDT Table formatting from the original result was not included. Procedure Medial Nerve Branch Block Indication Spondylosis of lumbosacral region without myelopathy or radiculopathy Medications lidocaine PF (Xylocaine) 20 mg/mL (2 %) injection 8 mL gadoterate meglumine (Dotarem) 0.5 mmol/mL contrast injection 1.5 mL bupivacaine PF (Marcaine) 0.5 % (5 mg/mL) injection 6 mL (Totals for administrations occurring from 0835 to 0851 on 11/20/23) Preprocedure A history and physical has been performed, and patient medication allergies have been reviewed. The patient's tolerance of previous anesthesia has been reviewed. The risks and benefits of the procedure and the sedation options and risks were discussed with the patient. All questions were answered and informed consent obtained. Details of the Procedure Procedure: Bilateral lumbar medial branches/posterior rami to target the L4/5 and L5-S1 facet joints under fluoroscopic guidance Anesthesia: MAC Complications: None Dotarem utilized due to patient allergy. After informed consent was obtained, the patient was brought to the procedure room and placed in the prone position. The back area was prepped and draped in the usual sterile fashion. Using fluoroscopic guidance, skin and subcutaneous tissue overlying the needle trajectories to the target sites were anesthetized with 2.0% lidocaine. 23-gauge spinal needles were advanced under fluoroscopic guidance to the appropriate anatomic landmarks. Needle tip position was confirmed in AP and oblique views initially on the right side, then on the left side. Injection of small amount of contrast at each needle tip revealed appropriate spread without vascular uptake. Subsequently, 0.5 mL of 0.5% bupivacaine was injected at each needle tip. The needles were removed. The patient was then transferred to the recovery room in stable condition. The patient will be assessed in recovery area for pain relief. Procedure Provider Stef Maki DO Procedure Location [facility] [place] [address] [place] [phone] Referring Provider Mesha Garcia PA-C [address] [place] [address] [place] [address] [facility] Work Phone: [facility] Work Phone: Radiology Study observation (narrative) [facility] Work Phone: [place] PAIN MANAGEMENTon 024 [place] PAIN MANAGEMENT These images are not reportable by radiology and will not be interpreted by Radiologists. [facility] [place] pain managementon 024 These images are not reportable by radiology and will not be interpreted by Radiologists. [facility] Work Phone: Medial Nerve Branch Blockon 10-30-2023 [facility] Work Phone: Radiology Study observation (narrative) [facility] Work Phone: CT Brain wo contraston 08-27 CT Brain wo contrast CT HEAD WITHOUT CON TRAST CLINICAL INDICATION: Seizure. Syncope and collapse. TECHNIQUE: Axial CT images of the brain were obtained without intravenous contrast. Coronal and sagittal reformatted images were also made available for interpretation. Dose reduction was employed with automated exposure control. COMPARISON: None. FINDINGS: Limitations: Mild streak artifact. Ventricles and Extra-axial spaces: Within normal limits for patient's age. No extra-axial fluid collection. No localized mass effect or midline shift. Cerebral and Cerebellar parenchyma: Appears within normal limits with preservation of the khan-white differentiation. CT evidence of acute intracranial hemorrhage Additional findings: Questionable partially empty sella. Paranasal sinuses: Visualized portions appear fairly well aerated Mastoid air cells: Appear fairly well aerated. Orbital contents: No significant abnormality within the visualized portions Calvarium and Skull base: Intact. IMPRESSION: No CT evidence of acute intracranial abnormality. Report Dictated on Authenticated by: William Reza On: 08/28/2023 22:28 Read by: WILLIAM REZA MD, MD Date: 08/28/2023 22:28 [facility] Comment on above: Order Comment: CONTR AST PER RADIOLOGIST DISCRETION DBT Breast - left diagnostic for implanton 08-25-2023 * * *Final Report* * * DATE OF EXAM: Aug 25 2023 8:26AM WRW [id number] - [facility] TIMA [employer] LT / PROCEDURE REASON: multiple diagnoses * * * * Physician Interpretation * * * * RESULT: #[id number] - [facility] [employer] LT #[id number] - [facility] BREAST LTD LT UNILATERAL LEFT DIGITAL DIAGNOSTIC MAMMOGRAM TOMOSYNTHESIS WITH CAD: 08/25/2023 HISTORY: Pt stated pain around lt nipple with clear discharge with lump for 1 1/2 month hx of cyst lt benign priors done at [facility] Multiple Diagnoses Multiple Diagnoses. RESULT: TECHNIQUE: The study was acquired using full field digital technology and interpreted from soft copy. Digital Breast Tomosynthesis (DBT) images were obtained and used to assist in the interpretation of this examination. Current study was also evaluated with a Computer Aided Detection (CAD). No prior exams were available for comparison. The left breast is extremely dense, which lowers the sensitivity of mammography. No significant masses, calcifications, or other findings are seen in the breast. DIVISION OF RADIOLOGY Provider, [facility] - 08/25/2023 * * *Final Report* * * DATE OF EXAM: Aug 25 2023 8:26AM WRW 0628 - [facility] DIAG W ARNOL LT / PROCEDURE REASON: multiple diagnoses * * * * Physician Interpretation * * * * RESULT: #[id number] - [facility] DIAG W ARNOL LT #[id number] - [facility] US BREAST LTD LT UNILATERAL LEFT DIGITAL DIAGNOSTIC MAMMOGRAM TOMOSYNTHESIS WITH CAD: 08/25/2023 HISTORY: Pt stated pain around lt nipple with clear discharge with lump for 1 1/2 month hx of cyst lt benign priors done at [facility] Multiple Diagnoses Multiple Diagnoses. RESULT: TECHNIQUE: The study was acquired using full field digital technology and interpreted from soft copy. Digital Breast Tomosynthesis (DBT) images were obtained and used to assist in the interpretation of this examination. Current study was also evaluated with a Computer Aided Detection (CAD). No prior exams were available for comparison. The left breast is extremely dense, which lowers the sensitivity of mammography. No significant masses, calcifications, or other findings are seen in the breast. IMPRESSION IMPRESSION: INCOMPLETE: NEEDS ADDITIONAL IMAGING EVALUATION There is no abnormality seen in the left breast to correspond with the palpable abnormality, discharge from the nipple, and pain, however, ultrasound is recommended. LIMITED ULTRASOUND OF LEFT BREAST: 08/25/2023 RESULT: No prior exams were available for comparison. Color flow and real-time ultrasound of the left breast 1 o'clock region were performed. Khan scale images of the real-time examination were reviewed. IMPRESSION: NEGATIVE There is no sonographic evidence of malignancy. There is no abnormality seen in the left breast to correspond with the palpable abnormality, discharge from the nipple, and pain, however, clinical correlation is recommended. Britt chase/norman:08/25/2023 08:48:37 Multiple national specialty organizations have released breast cancer screening guidelines for women at average risk for developing breast cancer - guidelines that are based on both evidence and opinion, yet differ on when to start and how often to screen for breast cancer. With representation from Breast Imaging, Internal Medicine, Women's Health, Family Medicine, and Medical/Surgical Oncology, the [facility] has carefully reviewed the data and reached the following consensus: 1) All women should engage in shared decision-making with their providers to decide when to start and how often to screen; 2) All women should have the opportunity to start screening mammography at age 40; 3) For women ages 45-55, we recommend annual screening mammograms; 4) For women ages 55 and over, we support both the transition from an annual to a biennial interval if this aligns more with patient's values and preferences, or continuation with annual screening; 5) All women should discuss with their providers when to stop screening mammograms. Frame Coverer(s): Olga Lidia Ivan, [facility]; RT Henny(R)(M), [facility] OVERALL STUDY BIRADS: 1 Negative Green Building Materials Designer: Norman Transcribe Date/Time: Aug 25 2023 8:05A Dictated by: BRITT GUTIERREZ MD This examination was interpreted and the report reviewed and electronically signed by: BRITT GUTIERREZ MD on Aug 25 2023 8:48AM [facility] DIAG W ARNOL LTon 024 [facility] DIAG W ARNOL LT * * *Final Report* * * DATE OF EXAM: Aug 25 2023 8:26AM [facility] 0628 - [facility] DIAG W ARNOL LT / PROCEDURE REASON: multiple diagnoses * * * * Physician Interpretation * * * * RESULT: #[id number] - [facility] DIAG W ARNOL LT #[id number] - [facility] US BREAST LTD LT UNILATERAL LEFT DIGITAL DIAGNOSTIC MAMMOGRAM TOMOSYNTHESIS WITH CAD: 08/25/2023 HISTORY: Pt stated pain around lt nipple with clear discharge with lump for 1 1/2 month hx of cyst lt benign priors done at [facility] Multiple Diagnoses Multiple Diagnoses. RESULT: TECHNIQUE: The study was acquired using full field digital technology and interpreted from soft copy. Digital Breast Tomosynthesis (DBT) images were obtained and used to assist in the interpretation of this examination. Current study was also evaluated with a Computer Aided Detection (CAD). No prior exams were available for comparison. The left breast is extremely dense, which lowers the sensitivity of mammography. No significant masses, calcifications, or other findings are seen in the breast. IMPRESSION: INCOMPLETE: NEEDS ADDITIONAL IMAGING EVALUATION There is no abnormality seen in the left breast to correspond with the palpable abnormality, discharge from the nipple, and pain, however, ultrasound is recommended. LIMITED ULTRASOUND OF LEFT BREAST: 08/25/2023 RESULT: No prior exams were available for comparison. Color flow and real-time ultrasound of the left breast 1 o'clock region were performed. Khan scale images of the real-time examination were reviewed. IMPRESSION: NEGATIVE There is no sonographic evidence of malignancy. There is no abnormality seen in the left breast to correspond with the palpable abnormality, discharge from the nipple, and pain, however, clinical correlation is recommended. Britt chase/norman:08/25/2023 08:48:37 Multiple national specialty organizations have released breast cancer screening guidelines for women at average risk for developing breast cancer - guidelines that are based on both evidence and opinion, yet differ on when to start and how often to screen for breast cancer. With representation from Breast Imaging, Internal Medicine, Women's Health, Family Medicine, and Medical/Surgical Oncology, the [facility] has carefully reviewed the data and reached the following consensus: 1) All women should engage in shared decision-making with their providers to decide when to start and how often to screen; 2) All women should have the opportunity to start screening mammography at age 40; 3) For women ages 45-55, we recommend annual screening mammograms; 4) For women ages 55 and over, we support both the transition from an annual to a biennial interval if this aligns more with patient's values and preferences, or continuation with annual screening; 5) All women should discuss with their providers when to stop screening mammograms. Frame Coverer(s): Olga Lidia Ivan, [facility]; RT Henny(R)(M), [facility] OVERALL STUDY BIRADS: 1 Negative Green Building Materials Designer: Norman Transcribe Date/Time: Aug 25 2023 8:05A Dictated by: BRITT GUTIERREZ MD This examination was interpreted and the report reviewed and electronically signed by: BRITT GUTIERREZ MD on Aug 25 2023 8:48AM EST [id number] Normal [facility] US BREAST LTD LTon 08-24 [facility] US BREAST LTD LT * * *Final Report* * * DATE OF EXAM: Aug 25 2023 8:42AM WRU 0593 - [facility] US BREAST LTD LT / PROCEDURE REASON: multiple diagnoses * * * * Physician Interpretation * * * * #[id number] - [facility] DIAG W ARNOL LT #[id number] - [facility] US BREAST LTD LT UNILATERAL LEFT DIGITAL DIAGNOSTIC MAMMOGRAM TOMOSYNTHESIS WITH CAD: 08/25/2023 HISTORY: Pt stated pain around lt nipple with clear discharge with lump for 1 1/2 month hx of cyst lt benign priors done at [facility] Multiple Diagnoses Multiple Diagnoses. RESULT: TECHNIQUE: The study was acquired using full field digital technology and interpreted from soft copy. Digital Breast Tomosynthesis (DBT) images were obtained and used to assist in the interpretation of this examination. Current study was also evaluated with a Computer Aided Detection (CAD). No prior exams were available for comparison. The left breast is extremely dense, which lowers the sensitivity of mammography. No significant masses, calcifications, or other findings are seen in the breast. IMPRESSION: INCOMPLETE: NEEDS ADDITIONAL IMAGING EVALUATION There is no abnormality seen in the left breast to correspond with the palpable abnormality, discharge from the nipple, and pain, however, ultrasound is recommended. LIMITED ULTRASOUND OF LEFT BREAST: 08/25/2023 RESULT: No prior exams were available for comparison. Color flow and real-time ultrasound of the left breast 1 o'clock region were performed. Khan scale images of the real-time examination were reviewed. IMPRESSION: NEGATIVE There is no sonographic evidence of malignancy. There is no abnormality seen in the left breast to correspond with the palpable abnormality, discharge from the nipple, and pain, however, clinical correlation is recommended. Britt chase/norman:08/25/2023 08:48:37 Multiple national specialty organizations have released breast cancer screening guidelines for women at average risk for developing breast cancer - guidelines that are based on both evidence and opinion, yet differ on when to start and how often to screen for breast cancer. With representation from Breast Imaging, Internal Medicine, Women's Health, Family Medicine, and Medical/Surgical Oncology, the [facility] has carefully reviewed the data and reached the following consensus: 1) All women should engage in shared decision-making with their providers to decide when to start and how often to screen; 2) All women should have the opportunity to start screening mammography at age 40; 3) For women ages 45-55, we recommend annual screening mammograms; 4) For women ages 55 and over, we support both the transition from an annual to a biennial interval if this aligns more with patient's values and preferences, or continuation with annual screening; 5) All women should discuss with their providers when to stop screening mammograms. Frame Coverer(s): Olga Lidia Ivan, [facility]; RT Henny(R)(M), [facility] OVERALL STUDY BIRADS: 1 Negative Green Building Materials Designer: Norman Transcribe Date/Time: Aug 25 2023 8:05A Dictated by : BRITT GUTIERREZ MD This examination was interpreted and the report reviewed and electronically signed by: BRITT GUTIERREZ MD on Aug 25 2023 8:48AM EST [id number] Normal [facility] No Panel Informationon 08-24 Radiology Study observation (narrative) [facility] No Panel InformationOrdered By: [facility] Provider on 08-25-2023 [facility] US Breast - left limitedon 0 08-25-2023 * * *Final Report* * * DATE OF EXAM: Aug 25 2023 8:42AM [facility] 0593 - [facility] US BREAST LTD LT / PROCEDURE REASON: multiple diagnoses * * * * Physician Interpretation * * * * #[id number] - [facility] DIAG W ARNOL LT #[id number] - [facility] US BREAST LTD LT UNILATERAL LEFT DIGITAL DIAGNOSTIC MAMMOGRAM TOMOSYNTHESIS WITH CAD: 08/25/2023 HISTORY: Pt stated pain around lt nipple with clear discharge with lump for 1 1/2 month hx of cyst lt benign priors done at [facility] Multiple Diagnoses Multiple Diagnoses. RESULT: TECHNIQUE: The study was acquired using full field digital technology and interpreted from soft copy. Digital Breast Tomosynthesis (DBT) images were obtained and used to assist in the interpretation of this examination. Current study was also evaluated with a Computer Aided Detection (CAD). No prior exams were available for comparison. The left breast is extremely dense, which lowers the sensitivity of mammography. No significant masses, calcifications, or other findings are seen in the breast. DIVISION OF RADIOLOGY Provider, Shira levy Lytle - 08/25/2023 * * *Final Report* * * DATE OF EXAM: Aug 25 2023 8:42AM WRU 0593 - [facility] US BREAST LTD LT / PROCEDURE REASON: multiple diagnoses * * * * Physician Interpretation * * * * #[id number] - [facility] DIAG W ARNOL LT #[id number] - [facility] [place] BREAST LTD LT UNILATERAL LEFT DIGITAL DIAGNOSTIC MAMMOGRAM TOMOSYNTHESIS WITH CAD: 08/25/2023 HISTORY: Pt stated pain around lt nipple with clear discharge with lump for 1 1/2 month hx of cyst lt benign priors done at [facility] Multiple Diagnoses Multiple Diagnoses. RESULT: TECHNIQUE: The study was acquired using full field digital technology and interpreted from soft copy. Digital Breast Tomosynthesis (DBT) images were obtained and used to assist in the interpretation of this examination. Current study was also evaluated with a Computer Aided Detection (CAD). No prior exams were available for comparison. The left breast is extremely dense, which lowers the sensitivity of mammography. No significant masses, calcifications, or other findings are seen in the breast. IMPRESSION IMPRESSION: INCOMPLETE: NEEDS ADDITIONAL IMAGING EVALUATION There is no abnormality seen in the left breast to correspond with the palpable abnormality, discharge from the nipple, and pain, however, ultrasound is recommended. LIMITED ULTRASOUND OF LEFT BREAST: 08/25/2023 RESULT: No prior exams were available for comparison. Color flow and real-time ultrasound of the left breast 1 o'clock region were performed. Khan scale images of the real-time examination were reviewed. IMPRESSION: NEGATIVE There is no sonographic evidence of malignancy. There is no abnormality seen in the left breast to correspond with the palpable abnormality, discharge from the nipple, and pain, however, clinical correlation is recommended. Britt chase/norman:08/25/2023 08:48:37 Multiple national specialty organizations have released breast cancer screening guidelines for women at average risk for developing breast cancer - guidelines that are based on both evidence and opinion, yet differ on when to start and how often to screen for breast cancer. With representation from Breast Imaging, Internal Medicine, Women's Health, Family Medicine, and Medical/Surgical Oncology, the [facility] has carefully reviewed the data and reached the following consensus: 1) All women should engage in shared decision-making with their providers to decide when to start and how often to screen; 2) All women should have the opportunity to start screening mammography at age 40; 3) For women ages 45-55, we recommend annual screening mammograms; 4) For women ages 55 and over, we support both the transition from an annual to a biennial interval if this aligns more with patient's values and preferences, or continuation with annual screening; 5) All women should discuss with their providers when to stop screening mammograms. Frame Coverer(s): Olga Lidia Ivan, [facility]; RT Henny(R)(M), [facility] OVERALL STUDY BIRADS: 1 Negative Green Building Materials Designer: Norman Transcribe Date/Time: Aug 25 2023 8:05A Dictated by : BRITT GUTIERREZ MD This examination was interpreted and the report reviewed and electronically signed by: BRITT GUTIERREZ MD on Aug 25 2023 8:48AM EST [facility] CNOVon 08-03-2023 CNOV Office Visit (OBGYWM ) -- KENDALL VASQUES ([id number]) 1985 F Date Time Provider Department 08/03/23 9:30 AM WILFRID CHAMPION OBSAMIRA During your visit today, we recorded the following information about you: Blood pressure Weight 110/62 67.6 kg Wilfrid Champion APRN.CNM 08/03/2023 12:41 PM Signed BREAST LUMP HISTORY: This is a 37 year old female Presents with breast mass left Mass has been present for 1 months Patient stated noticed tenderness around the left nipple 1 month ago and now tenderness has spread to axillary area. She felt a small lump but has fibrocystic breasts so always feels lumps. Tenderness Yes, Change in sizeYes, increase Any history breast mass Yes, 2019 Caffeine use No Last [id number] abnormal, had cyst removed Any previous breast surgery Yes- left side cyst removal/biopsy benign- cyst removed Any family history breast disease/ breast cancer Yes- Father's mother OB History T0 L0 SAB1 IAB0 Ectopic0 Multiple0 Live Births1 PAST MEDICAL HISTORY Diagnosis Date Abnormal Pap smear of cervix +HPV Anemia Asthma Breast cyst, left 2019 Chlamydia Depression/anxiety Herpes simplex virus (HSV) infection Hx of ovarian cyst Hx: UTI (urinary tract infection) Hypertension Hypoglycemia 5 years ago Infectious mononucleosis Infertility, female Insomnia in prior , currently 11/17/2022 PID (acute pelvic inflammatory disease) 2014 Placental abruption depression Recurrent UTI Renal calculi recurrent kidney stones Seizure disorder (HCC) psychogenic Sickle cell anemia (HCC) Syncope and collapse with pseudo-seizures Thyroid disease PAST SURGICAL HISTORY Procedure Laterality Date BREAST CYST ASPIRATION - ADDTL LESION Left 2019 Dr Corona-Drifting CERVIX UTERI CONIZA LP ELCTRO EXCI 2008 SECTION HX classical incision CT ABDOMEN 09/10/[address] [facility] [address] BRAIN 06/19/2005 [facility] DANDC, DIAG AND/OR THERAPEUTIC 11/27/2022 Suction DANDC for missed AB L'SCOPE DX W/WO BRUSHINGS/WASHINGS 03/17/2022 Dr Myers-pelvic pain-endometriosis ruled out L'SCOPE DX W/WO BRUSHINGS/WASHINGS 03/12/2020 lysis of adhesions-Dr Myers LITHOTRIPSY XTRCORP SHOCK WAVE 04/16/2006 Lithotripsy Right kidney OVARY SURGERY HX 04/10/2013 Excision of right fallopian tube and ovary PAST SURGICAL HISTORY OF 02/16/2003 right ear cartilage repair TLH W/T/O 250 G OR LESS 03/24/2023 left salpingectomy, excision of endometriosis, cystoscopy TONSILLECTOMY AND ADENOIDECTOMY HX 12/17/2012 FAMILY HISTORY Problem Relation Age of Onset Stroke Father No Known Problems Sister Hypertension Maternal Grandmother Blood Clots Maternal Grandmother other (Hypoglycemia) Maternal Grandfather Heart Maternal Grandfather Diabetes Maternal Grandfather Breast Cancer Paternal Grandmother Heart Attack Paternal Grandfather other (epilepsy) Half-sister SOCIAL HISTORY Social History Tobacco Use Smoking status: Never Smokeless tobacco: Never Vaping Use Vaping Use: Never used Substance Use Topics Alcohol use: No Drug use: No PAST SURGICAL HISTORY Procedure Laterality Date BREAST CYST ASPIRATION - ADDTL LESION Left 2019 Dr Corona-Arleth CERVIX UTERI CONIZA LP ELCTRO EXCI 2008 SECTION HX classical incision CT ABDOMEN 09/10/[address] [facility] [address] BRAIN 06/19/2005 [facility] DANDC, DIAG AND/OR THERAPEUTIC 11/27/2022 Suction DANDC for missed AB L'SCOPE DX W/WO BRUSHINGS/WASHINGS 03/17/2022 Dr Myers-pelvic pain-endometriosis ruled out L'SCOPE DX W/WO BRUSHINGS/WASHINGS 03/12/2020 lysis of adhesions-Dr Myers LITHOTRIPSY XTRCORP SHOCK WAVE 04/16/2006 Lithotripsy Right kidney OVARY SURGERY HX 04/10/2013 Excision of right fallopian tube and ovary PAST SURGICAL HISTORY OF 02/16/2003 right ear cartilage repair TLH W/T/O 250 G OR LESS 03/24/2023 left salpingectomy, excision of endometriosis, cystoscopy TONSILLECTOMY AND ADENOIDECTOMY HX 12/17/2012 Current Outpatient Medications Medication Sig spironolactone (ALDACTONE) 25 mg tablet Take 25 mg by mouth once daily. tiZANidine HCl (ZANAFLEX) 2 mg capsule Take 1-2 capsules by mouth three times a day as needed. sertraline (ZOLOFT) 100 mg tablet Take 100 mg by mouth once daily. albuterol HFA (PROVENTIL HFA, VENTOLIN HFA) 90 mcg/actuation inhaler Inhale 1 Puff as instructed every 4 hours as needed. traZODone (DESYREL) 100 mg tablet Take 100 mg by mouth. ondansetron orally disintegrating (ZOFRAN ODT) 4 mg disintegrating tablet Take 1 tablet by mouth every 6 hours as needed for nausea/vomiting. norethindrone (AYGESTIN) 5 mg tablet Take 1 tablet by mouth once daily. diphenhydrAMINE (SLEEP AID, DIPHENHYDRAMINE,) 50 mg capsule Take 50 (more content not included)... Normal [facility] POCT URINALYSIS DIPSTICK NON AUTOMATEDon 07-15-2023 Amorphous sediment LM Ql (Urine sed) [facility] Appearance (U) [facility] Bacteria LM Ql (Urine sed) [facility] Bilirubin Ql (U) Negative [facility] Casts LM.LPF (Urine sed) [#/Area] [facility] Color (U) [facility] Crystals LM Nom (Urine sed) [facility] Epithelial cells.squamous LM.HPF (Urine sed) [#/Area] [facility] Flow cytometry specialist review Helio (Unsp spec) [Interp] [facility] Glucose Auto test strip (U) [Mass/Vol] Negative mg/dL [facility] Interpretation and review of laboratory results Normal [facility] Ketones [Mass/Vol] trace mg/dL [facility] Leukocyte esterase Qn (U) [facility] Leukocyte esterase Test strip Ql (U) Negative [facility] Nitrite Ql (U) Negative [facility] pH (U) 5.5 [pH] 5 - 7 [facility] Protein Ql (U) trace mg/dL [facility] RBC LM.HPF (Urine sed) [#/Area] [facility] RBC Ql (U) Negative [facility] Specific gravity (U) [Rel density] 1.025 1.001 - 1.035 [facility] Transitional cells LM Ql (Urine sed) [facility] Urobilinogen Qn (U) 0.2 [facility] WBC LM.HPF (Urine sed) [#/Area] [facility] CBC, EDIF, PLATELETon 2023 ABSOLUTE BASOPHIL COUNT 0.0 10*3/uL 0.0 - 0.2 10*3/uL [facility] Basophils/100 WBC (Bld) 0.7 % 0.0 - 2.0 % [facility] Differential cell count method Nom (Bld) AUTO DIFF % [facility] Eosinophils (Bld) [#/Vol] 0.1 10*3/uL 0.0 - 0.7 10*3/uL [facility] Eosinophils/100 WBC (Bld) 0.8 % 0.0 - 11.0 % [facility] Erythrocyte distribution width (RBC) [Ratio] 13.1 % 11.5 - 14.5 % [facility] Hematocrit (Bld) [Volume fraction] 36.1 % 36.0 - 48.0 % [facility] Hemoglobin (Bld) [Mass/Vol] 11.7 g/dL Low [facility] Interpretation and review of laboratory results Abnormal [facility] Lymphocytes (Bld) [#/Vol] 1.7 10*3/uL 1.2 - 3.4 10*3/uL [facility] Lymphocytes/100 WBC (Bld) 26.8 % 20.0 - 55.0 % [facility] MCH (RBC) [Entitic mass] 30.2 pg 26.0 - 35.0 PG [facility] MCHC (RBC) [Mass/Vol] 32.5 g/dL [facility] MCV (RBC) [Entitic vol] 93.0 fL [facility] Monocytes (Bld) [#/Vol] 0.3 10*3/uL 0.0 - 0.7 10*3/uL [facility] Monocytes/100 WBC (Bld) 4.0 % 0.0 - 10.0 % [facility] Neutrophils (Bld) [#/Vol] 4.4 10*3/uL 1.4 - 6.5 10*3/uL [facility] Neutrophils/100 WBC (Bld) 67.7 % 37.0 - 75.0 % [facility] Platelet mean volume (Bld) [Entitic vol] 8.2 fL [facility] Platelets (Bld) [#/Vol] 215 10*3/uL 130 - 400 10*3/uL [facility] RBC (Bld) [#/Vol] 3.88 10*6/uL Low 4.0 - 5.4 10*6/uL [facility] WBC (Bld) [#/Vol] 6.5 10*3/uL 3.6 - 11.0 10*3/uL [facility] CHEM 7 (LYTES,BUN,CREA,GLUC) on 06-10-2023 Chloride [Moles/Vol] 109 mmol/L [facility] Comment on above: Please note: Triglyc eride levels of 600mg/dL or higher may positively bias chloride results by approximately 2.1 mmol CO2 [Moles/Vol] 22 mmol/L [facility] Creatinine [Mass/Vol] 0.80 mg/dL [facility] GFR COMMENT Average GFR for 30-3 9 years old = 107. [facility] Comment on above: Chronic Kidney disea se, GFR = <60. Kidney failure, GFR = <15. The GFR estimate is not adjusted for extreme body surface area or acute process, nor has it been validated for women or ethnic groups other than and . GFR/1.73 sq M.predicted among blacks MDRD (S/P/Bld) [Vol rate/Area] 104 mL/min/{1.73_m2} ml/min/1.7 3sq.m [facility] GFR/1.73 sq M.predicted among non-blacks MDRD (S/P/Bld) [Vol rate/Area] 86 mL/min/{1.73_m2} ml/min/1.7 3sq.m [facility] Glucose post fast [Mass/Vol] 90 mg/dL [facility] Comment on above: NORMAL <100 mg/dL PREDIABETES 101-126 mg/dL DIABETES 126 mg/dL or higher Interpretation and review of laboratory results Abnormal [facility] Potassium [Moles/Vol] 4.0 mmol/L [facility] Sodium [Moles/Vol] 139 mmol/L [facility] Urea nitrogen [Mass/Vol] 14 mg/dL [facility] CT Abdomen and Pelvis WO con traston 06-10-2023 IMPRESSION: 1. Punctate nonobstructing left renal stone. RADIOLOGY EXAMINATION: CT ABDOMEN/PELVIS WITHOUT CONTRAST, 06/10/2023 11:45 AM EDT HISTORY: Flank pain. COMPARISON: CT abdomen pelvis 07/02/2022.. TECHNIQUE: CT scan of the abdomen and pelvis was performed without IV contrast. CT dose reduction technique was used, including Automated Exposure Control. Findings: Lack of intravenous contrast limits evaluation. ABDOMEN: The liver, gallbladder, spleen, pancreas, and adrenal glands are unremarkable. Unremarkable right kidney. Punctate nonobstructing left renal stone. The visualized portions of the bilateral ureters are nondilated. Evaluation of the bowel is limited given the absence of oral contrast. No bowel obstruction. The appendix is nondilated. The aorta is normal caliber. No enlarged abdominal lymph nodes or free abdominal fluid. Pelvis: Unremarkable bladder. The uterus is surgically absent. No enlarged pelvic lymph nodes or free pelvic fluid. No aggressive sclerotic or lytic osseous lesions. Mild L5-S1 degenerative disc disease. RADIOLOGY Jose Daniel Duarte MD - 06/10/2023 EXAMINATION: CT ABDOMEN/PELVIS WITHOUT CONTRAST, 06/10/2023 11:45 AM EDT HISTORY: Flank pain. COMPARISON: CT abdomen pelvis 07/02/2022.. TECHNIQUE: CT scan of the abdomen and pelvis was performed without IV contrast. CT dose reduction technique was used, including Automated Exposure Control. Findings: Lack of intravenous contrast limits evaluation. ABDOMEN: The liver, gallbladder, spleen, pancreas, and adrenal glands are unremarkable. Unremarkable right kidney. Punctate nonobstructing left renal stone. The visualized portions of the bilateral ureters are nondilated. Evaluation of the bowel is limited given the absence of oral contrast. No bowel obstruction. The appendix is nondilated. The aorta is normal caliber. No enlarged abdominal lymph nodes or free abdominal fluid. Pelvis: Unremarkable bladder. The uterus is surgically absent. No enlarged pelvic lymph nodes or free pelvic fluid. No aggressive sclerotic or lytic osseous lesions. Mild L5-S1 degenerative disc disease. IMPRESSION IMPRESSION: 1. Punctate nonobstructing left renal stone. [facility] Radiology Study observation (narrative) [facility] CT Abdomen and Pelvis WO con trastOrdered By: Jose Daniel Duarte on 06-10-2023 [facility] No Panel Informationon 06-09 [facility] URINALYSIS, MACROon 06-10-19 Bilirubin Ql (U) Negative NEGATIVE [facility] Clarity (U) CLEAR CLEAR [facility] Color (U) YELLOW YELLOW [facility] Glucose Test strip (U) [Mass/Vol] Negative NEGATIVE mg/dl [facility] Hemoglobin Ql (U) TRACE-INTACT Abnormal NEGATIVE [facility] Interpretation and review of laboratory results Abnormal [facility] Ketones (U) [Mass/Vol] Negative NEGAT CATRINA mg/dl [facility] Leukocyte esterase Test strip Ql (U) Negative NEGATIVE [facility] Nitrite Ql (U) Negative NEGATIVE [facility] pH (U) 6.0 [pH] 5.0 - 7.0 [facility] Protein Ql (U) Negative NEGATIVE mg/dl [facility] Specific gravity (U) [Rel density] 1.015 1.010 - 1.025 [facility] Urobilinogen (U) [Mass/Vol] 0.2 mg/dL [facility] URINE MICROSCOPICon 06-10-19 24 Bacteria LM.HPF (Urine sed) [#/Area] Negative NEGATIVE [facility] Casts LM.LPF (Urine sed) [#/Area] NONE NONE /LPF [facility] Crystals LM Nom (Urine sed) NONE NONE [facility] Epithelial cells LM Ql (Urine sed) 1 TO 5 /HPF [facility] Mucus Ql (Urine sed) Negative NEGATIVE [facility] RBC LM.HPF (Urine sed) [#/Area] Negative NEGATIVE /HPF [facility] Urine sediment comments LM Helio (Urine sed) CULTURE CRITERIA NOT MET, NO CULTURE PERFORMED. [facility] WBC LM.HPF (Urine sed) [#/Area] Negative NEGATIVE /HPF [facility] CNOVon 05-04-2023 CNOV Office Visit (GYMGME ) -- KENDALL VASQUES ([id number]) 1985 F Date Time Provider Department 05/04/23 3:15 PM MARY LOU MORRISON During your visit today, we recorded the following information about you: Blood pressure 119/75 Mary Lou Morrison DO 05/04/2023 4:52 PM Signed [facility] SECTION FOR MINIMALLY INVASIVE GYNECOLOGIC SURGERY OUTPATIENT VISIT DATE 05/04/2023 OUTPATIENT VISIT TYPE POST OPERATIVE FOLLOW UP History: Kendall Vasques is a 37 year old female here for post operative follow up appointment. She underwent Procedure: Total laparoscopic hysterectomy, left salpingectomy, excision of endometriosis, cystoscopy Pre-Op/Pre-Procedure Diagnosis: Pelvic pain and AUB Post-Op/Post-Procedure Diagnosis: Same as pre-op diagnosis on indicated for 03/24/23. She reports feeling 70% better since her procedure. Her appetite is fair. She describes her pain as yes: Location: abdomen, Severity: 0 and 4. She is currently taking tylenol and zanaflex for pain control. She has not had sexual intercourse since the procedure. Report nausea/ Denies vomiting/chest pain/shortness of breath. Ambulating well. No issues with voiding or BMs. Pt was in ED this past Thursday for LLQ, kidney stone, cyst. No follow up scheduled at this time. ROS: Constitutional: Denies fever or chills GI: Denies abdominal pain, nausea, vomiting, bloody stools or diarrhea : Denies dysuria Exam: Vitals: 05/04/23 1510 BP: 119/75 Height: 162.6 cm (5' 4) (03/24/2023 6:27 AM) There is no height or weight on file to calculate BMI. Neuro/psych: Alert and oriented x 3 in a pleasant mood Skin: Warm, dry and intact Abdomen: Soft, non tender, non distended, no hepatosplenomegaly or hernias. Incision: c/d/i Pelvic: Vaginal cuff: well healed, intact Assessment: Ms. Kendall Vasques is a 37 year old female presenting for postop check status post H. She reports doing well without concerns. Pathology discussed and surgical details reviewed. Plan: -May continue to increase physical activity as tolerated -May resume intercourse -Refrain from heavy lifting for 4 weeks postop -Follow up with general provider for annual care -All questions answered and pt agrees with plan Mary Lou Morrison DO Allergies As of Date: 05/04/2023 Noted Allergy Reaction SHELLFISH CONTAINING PRODUCTS 04/17/2021 7 - Swelling ADHESIVE 06/17/2011 2 - Rash CODEINE 09/20/2009 4 - Hives 11 - Vomiting FLAGYL (METRONIDAZOLE) 09/27/2021 14 - Other: See Comments Comments: SZ MORPHINE 05/23/2022 4 - Hives NSAIDS (NON-STEROIDAL ANTI-INFLAM*09/27/2021 14 - Other: See Comments Comments: Stage 2 kidney dx TOPAMAX (TOPIRAMATE) 09/27/2021 8 - GI Upset Date Reviewed: 05/04/2023 Reviewed by: Angie Myers - Fully Assessed Primary Visit Diagnosis:Endometriosis [N80.9] Prescriptions as of 05/04/2023 - tiZANidine HCl (ZANAFLEX) 2 mg capsule Take 1-2 capsules by mouth three times a day as needed. - norethindrone (AYGESTIN) 5 mg tablet Take 1 tablet by mouth once daily. - sertraline (ZOLOFT) 100 mg tablet Take 100 mg by mouth once daily. - albuterol HFA (PROVENTIL HFA, VENTOLIN HFA) 90 mcg/actuation inhaler Inhale 1 Puff as instructed every 4 hours as needed. - traZODone (DESYREL) 100 mg tablet Take 100 mg by mouth. - ondansetron orally disintegrating (ZOFRAN ODT) 4 mg disintegrating tablet Take 1 tablet by mouth every 6 hours as needed for nausea/vomiting. - diphenhydrAMINE (SLEEP AID, DIPHENHYDRAMINE,) 50 mg capsule Take 50 mg by mouth every 6 hours as needed. Problem List As Of Date 05/04/2023 Noted Resolved UTI (lower urinary tract infection) [N39.0] 09/20/2009 03/24/2023 Calculus of Kidney [N20.0] 09/20/2009 Seizure disorder [G40.909] 09/20/2009 07/15/2011 Viral Warts due to HPV [B07.9] 09/20/2009 Transient alteration of awareness [R40.4] 04/01/2011 11/21/2015 Reactive hypoglycemia [E16.1] 06/17/2011 Hirsutism [L68.0] 06/17/2011 Irregular menses [N92.6] 06/17/2011 03/24/2023 Right flank pain [R10.9] 04/18/2015 Lower urinary tract symptoms (LUTS) [R39.9] 04/18/2015 03/24/2023 Breast pain [N64.4] 04/26/2015 Fever [R50.9] 03/19/2016 03/24/2023 Urinary tract infection with hematuria [N39.0, *03/19/2016 12/25/2018 Vision loss of right eye [H54.61] 12/27/2016 Left amblyopia [H53.002] 12/27/2016 Supervision of with history of infert*11/17/2022 03/24/2023 Vaginal bleeding in , first trimester *11/17/2022 03/24/2023 Antepartum multigravida of advanced maternal ag*11/17/2022 03/24/2023 History of hypertension [Z86.79] 11/17/2022 03/24/2023 History of classical section [Z98.891] 11/17/2022 03/24/2023 History of placental abruption [Z87.59] 11/17/2022 03/24/2023 in prior , currently pr*11/17/2022 03/24/2023 History of depression [Z87.59, Z86.5 (more content not included)... Normal [facility] Absolute lymphocyte countOrd ered By: Henry Barreto on 05-01-2023 Lymphocytes Auto (Unsp spec) [#/Vol] 2.18 10*3/uL 0.83-4.51 [facility] Automated lymphocyte count a s percentage of total leukocytesOrdered By: Henry Barreto on 05-01-2023 Lymphocytes/100 WBC Auto (Unsp spec) 33.3 % 19-41 [facility] Basophil percentageOrdered B y: Henry Barreto on 05-01-2023 Lactate [Moles/Vol] 0.8 mmol/L 0.4-2.[address] [facility] Basophils/100 WBC (Bld) 0.6 % 0-1 [facility] Bilirubin [Mass/Vol] 0.30 mg/dL 0.20-1.00 [facility] Comment on above: For patients on eltr ombopag therapy, use of Dimension [employer] TBIL is not recommended. Chloride [Moles/Vol] 110 mmol/L 98-107 [facility] Eosinophils/100 WBC (Bld) 1.5 % 0-5 [facility] Glucose [Mass/Vol] 90 mg/dL 74-106 [facility] Hemoglobin (Bld) [Mass/Vol] 12.1 g/dL 12.0-15.0 [facility] Monocytes/100 WBC (Bld) 4.4 % 0-10 [facility] Neutrophils (Bld) [#/Vol] 3.9 10*3/uL 2.0-7.7 [facility] Neutrophils/100 WBC (Bld) 59.9 % 47-70 [facility] Potassium [Moles/Vol] 3.9 mmol/L 3.5-5.1 [facility] Protein [Mass/Vol] 7.6 g/dL 6.4-8.2 [facility] Sodium [Moles/Vol] 141 mmol/L 136-145 [facility] WBC (Bld) [#/Vol] 6.5 10*3/uL 4.4-11.0 [facility] Determination of erythrocyte mean corpuscular volume (MCV)Ordered By: Henry Barreto on 05-01-2023 MCV (RBC) [Entitic vol] 95.1 fL 81-99 [facility] Erythrocyte distribution wid th ratioOrdered By: Henry Barreto on 05-01-2023 Erythrocyte distribution width (RBC) [Ratio] 13.7 % 11.6-14.6 [facility] Erythrocyte distribution wid th standard deviationOrdered By: Henry Barreto on 05-01-2023 Erythrocyte distribution width (RBC) [Entitic vol] 47.9 fL 35.1-43.9 [facility] Hematocrit Auto (Bld) [Volum e fraction]Ordered By: Henry Barreto on 05-01-2023 Hematocrit (Bld) [Volume fraction] 38.7 % 37-47 [facility] Immature granulocytes/100 WB C Auto (Bld)Ordered By: Henry Barreto on 05-01-2023 Immature granulocytes/100 WBC (Bld) 0.300 % 0.0-0.9 [facility] Comment on above: IG% - Immature Granu locytes (promyelocytes, myelocytes and metamyelocytes) > 1% indicates that a LEFT SHIFT is Present. Laboratory - Chemistry and C hemistry - challengeOrdered By: Henry Barreto on 05-01-2023 Albumin/Globulin [Mass ratio] 1.1 {ratio} 0.9-2.4 [facility] ALP [Catalytic activity/Vol] 69 U/L 45-117 [facility] ALT [Catalytic activity/Vol] 17 U/L 13-56 [facility] CO2 [Moles/Vol] 25.0 mmol/L 21.0-32.0 [facility] Globulin (S) [Mass/Vol] 3.6 g/dL 2.2-4.2 [facility] Lipase [Catalytic activity/Vol] 25 U/L 13-75 [facility] Comment on above: Please note:LIPASE r evised reference range effective 22. New Lipase methodology. Expected to produce lower values than the previous assay method. NEW Reference Range: 13 - 75 U/L Urea nitrogen/Creatinine [Mass ratio] 10.2 mg/mg 10-20 [facility] Laboratory - Hematology and Cell countsOrdered By: Henry Barreto on 05-01-2023 MCH (RBC) [Entitic mass] 29.7 pg 27.0-32.0 [facility] MCHC (RBC) [Mass/Vol] 31.3 g/dL 32-36 [facility] Nucleated RBC/100 WBC (Bld) [Ratio] 0 % 0-5 [facility] Platelet mean volume (Bld) [Entitic vol] 10.1 fL 6.2-12.0 [facility] Platelets (Bld) [#/Vol] 227 10*3/uL 150-450 [facility] No Panel InformationOrdered By: Henry Barreto on 05-01-2023 Estimated GFR (MDRD) Amer 93 mL/min >60 [facility] Comment on above: GFR Calc Estimated GFR (MDRD) Non-Af Amer 77 mL/min >60 [facility] Comment on above: Non- GFR Calc RBC Auto (Bld) [#/Vol]Ordere d By: Henry Barreto on 05-01-2023 RBC (Bld) [#/Vol] 4.07 10*6/uL 4.2-5.4 [facility] er Serum or plasma calcium len urement (mass/volume)Ordered By: Henry Barreto on 05-01-2023 Calcium [Mass/Vol] 9.5 mg/dL 8.5-10.1 [facility] Serum or plasma creatinine m easurement (mass/volume)Ordered By: Henry Barreto on 05-01-2023 Creatinine [Mass/Vol] 0.88 mg/dL 0.55-1.02 [facility] Comment on above: The validity of the calculated GFR & GFRAA in patients over 70 years has not been determined. Clinical correlation is essential. Serum or plasma urea nitroge n measurement (mass/volume)Ordered By: Henry Barreto on 05-01-2023 Urea nitrogen [Mass/Vol] 9 mg/dL 7-18 [facility] Thin prep Papanicolaou smear with manual screeningOrdered By: Henry Barreto on 05-01-2023 Thin prep Papanicolaou smear with manual screening 4.0 g/dL 3.2-5.0 [facility] Thin prep Papanicolaou smear with manual screening 14 U/L 15-37 [facility] Thin prep Papanicolaou smear with manual screening 6 5-15 [facility] -- KENDALL VASQUES ([id number]) 1985 F Date Time Provider Department 03/26/23 MARY LOU MORRISON [facility] During your visit today, we recorded the following information about you: Robby Jiang RN 03/26/2023 11:43 AM Signed [facility] SECTION FOR MINIMALLY INVASIVE GYNECOLOGIC SURGERY AND CHRONIC PELVIC PAIN Postop call POD# NUMBERS 1-12: [address] Morrison. Procedure: (from op note) Total laparoscopic hysterectomy, left salpingectomy, excision of endometriosis, cystoscopy Reassured regarding typical pain and recovery following laparoscopic surgery. Reviewed pain medication use for optimal postoperative pain control. Reminded to ambulate every 2 hours while awake Reminded of normal return of bowel function, management of constipation. 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 Nausea, vomiting or diarrhea that is not improving Blood, pus, or opening of incision(s) Heavy vaginal bleeding (more than a period) Shortness of breath Swollen or tender lower leg Lightheadedness, dizziness, or fainting Patient expressed understanding. Post op appointment: 04/08/23 SHANELL Santiago Patient questions/concerns: 10/26 Umbilical Pain- pt reported taking Tylenol and Motrin Q4-6 hours. Pt educated to Alternate meds within 3 hours of each other and to take oxycodone for breakthrough pain. Pt to try this regimen and to call us or go to ED if pain has not improved. Wears abd. binder for comfort Described bladder pressure, weak urinary stream and hesitancy- pt can empty just takes longer. Educated that this may take a few weeks to improve but should improve over time. Passing gas, no BM yet--taking Senna BID and educated to take Miralax or Milk of Magnesia if she has not had a BM with 3-4 days. Notes ambulating and increasing fluids. Fever- pt reports typical fever after surgery and prev. surgeries- had 101.4 F temp at home for 4 hours, has since resolved. Pt educated when to go to ED. Allergies As of Date: 03/26/2023 Noted Allergy Reaction SHELLFISH CONTAINING PRODUCTS 04/17/2021 7 - Swelling ADHESIVE 06/17/2011 2 - Rash CODEINE 09/20/2009 4 - Hives 11 - Vomiting FLAGYL (METRONIDAZOLE) 09/27/2021 14 - Other: See Comments Comments: SZ MORPHINE 05/23/2022 4 - Hives NSAIDS (NON-STEROIDAL ANTI-INFLAM*09/27/2021 14 - Other: See Comments Comments: Stage 2 kidney dx TOPAMAX (TOPIRAMATE) 09/27/2021 8 - GI Upset Date Reviewed: 03/24/2023 Reviewed by: Ricky Valle RN - Fully Assessed Reason for Visit: Post Op Call [[id number]] Prescriptions as of 03/26/2023 - acetaminophen (TYLENOL) 325 mg tablet Take 2 tablets by mouth every 6 hours for 10 days. - oxyCODONE IR (ROXICODONE) 5 mg immediate release tablet Take 1 tablet by mouth every 6 hours as needed for pain for up to 5 days. - tiZANidine HCl (ZANAFLEX) 2 mg capsule Take 1-2 capsules by mouth three times a day as needed. - norethindrone (AYGESTIN) 5 mg tablet Take 1 tablet by mouth once daily. - sertraline (ZOLOFT) 100 mg tablet Take 100 mg by mouth once daily. - albuterol HFA (PROVENTIL HFA, VENTOLIN HFA) 90 mcg/actuation inhaler Inhale 1 Puff as instructed every 4 hours as needed. - traZODone (DESYREL) 100 mg tablet Take 100 mg by mouth. - ondansetron orally disintegrating (ZOFRAN ODT) 4 mg disintegrating tablet Take 1 tablet by mouth every 6 hours as needed for nausea/vomiting. - diphenhydrAMINE (SLEEP AID, DIPHENHYDRAMINE,) 50 mg capsule Take 50 mg by mouth every 6 hours as needed. Problem List As Of Date 03/26/2023 Noted Resolved UTI (lower urinary tract infection) [N39.0] 09/20/2009 03/24/2023 Calculus of Kidney [N20.0] 09/20/2009 Seizure disorder [G40.909] 09/20/2009 07/15/2011 Viral Warts due to HPV [B07.9] 09/20/2009 Transient alteration of awareness [R40.4] 04/01/2011 11/21/2015 Reactive hypoglycemia [E16.1] 06/17/2011 Hirsutism [L68.0] 06/17/2011 Irregular menses [N92.6] 06/17/2011 03/24/2023 Right flank pain [R10.9] 04/18/2015 Lower urinary tract symptoms (LUTS) [R39.9] 04/18/2015 03/24/2023 Breast pain [N64.4] 04/26/2015 Fever [R50.9] 03/19/2016 03/24/2023 Urinary tract infection with hematuria [N39.0, *03/19/2016 12/25/2018 Vision loss of right eye [H54.61] 12/27/2016 Left amblyopia [H53.002] 12/27/2016 Supervision of with history of infert*11/17/2022 03/24/2023 Vaginal bleeding in , first trimester *11/17/2022 03/24/2023 Antepartum multigravida of advanced maternal ag*11/17/2022 03/24/2023 History of hypertension [Z86.79] 11/17/2022 03/24/2023 History of classical section [Z98.89 (more content not included)... Normal [facility] ANES POSTPROC EVALon 024 ANES POSTPROC EVAL HNO ID: [id number] Author: KEYONA FRASER MD Service: Anesthesiology Author Type: Physician Type: Anesthesia Postprocedure Evaluation Filed: 03/24/2023 12:20 Note Text: POST ANESTHESIA EVALUATION NOTE : 1985 Procedure Summary Date: 03/24/23 Room / Location: [place] [address] / [place] Anesthesia Start: 736 Anesthesia Stop: 935 Procedures: LAPAROSCOPIC HYSTERECTOMY TOTAL FOR UTERUS 250 G OR LESS W/REMOVAL TUBE(S) AND/OR OVARY(S) (Abdomen) CYSTOSCOPY (Pelvis) Diagnosis: Pelvic pain in female (Pelvic pain in female [R10.2]) Surgeons: Mary Lou Morrison DO Responsible Provider: Keyona Fraser MD Anesthesia Type: general ASA Status: 3 Anesthesia Type: general Airway Type: ETT Last Vitals Vitals Value Taken Time BP 120/74 03/24/23 1045 Temp 36.3 ?C (97.3 ?F) 03/24/23 1030 Pulse 87 03/24/23 1048 Resp 10 03/24/23 1048 SpO2 98 % 03/24/23 1048 Vitals shown include unfiled device data. Post Anesthesia Patient Status Patient Evaluation: PACU. PACU/ICU Patient Condition: stable. Anticipated Disposition: phase 2 then home. Neurological Status: aware and responsive. Pulmonary Status: breathing comfortably on room air Airway Control: returned to baseline unsupported. Cardiovascular Status: stable. Pain Management: clinically adequate - multimodal analgesia pain management approach Postoperative Hydration: acceptable. Intraoperative Events: no significant anesthesia events Recommendation: continue current plan of care. Anesthesia Observations No Documentation SIGNATURE: Keyona Fraser MD PATIENT NAME: Kendall Vasques DATE: March 24, 2023 TIME: 12:20 PM CSN: [id number] [facility] ANES PRE-OPon 03-24-2023 ANES PRE-OP HNO ID: [id number] Author: KEYONA FRASER MD Service: Anesthesiology Author Type: Physician Type: Anesthesia Preprocedure Evaluation Filed: 03/24/2023 06:55 Note Text: ANESTHESIOLOGY DAY OF SURGERY NOTE : 1985 Procedure Information Date/Time: 03/24/23 0730 Procedures: LAPAROSCOPIC HYSTERECTOMY TOTAL FOR UTERUS 250 G OR LESS W/REMOVAL TUBE(S) AND/OR OVARY(S) CYSTOSCOPY Location: [place] [facility] [place] Surgeons: Mary Lou Morrison DO Estimated body mass index is 27.81 kg/m? as calculated from the following: Height as of 03/09/23: 162.6 cm (5' 4). Weight as of 03/09/23: 73.5 kg (162 lb). Most recent hematocrit and potassium results: Hematocrit 37.9 03/09/2023 Potassium 4.1 03/09/2023 Relevant Problems ANESTHESIA (+) ROSA (obstructive sleep apnea) -RENAL (+) Calculus of kidney (+) Stage 2 chronic kidney disease NEURO-PSYCH (+) History of depression/anxiety/insomni a (+) History of hypertension (+) History of placental abruption (+) History of depression (+) History of psychogenic nonepileptic seizure PULMONARY (+) ROSA (obstructive sleep apnea) I - PHYSICAL EVALUATION AIRWAY Patient intubated: No. Tracheostomy tube not present Mallampati: I. TM distance: >3 FB. Neck ROM: full ROM without neurological symptoms. Mouth opening: adequate. Short neck: no. Thick neck: no DENTAL Dental findings: teeth intact. Additional exam findings: no II - ANESTHESIA PLAN ASA Score: 3 Anesthetic Plan: general Airway type: ETT NPO Status: adequate Anesthetic plan additional comments: Patient has high anxiety due to losing a baby, requests relaxing medicine on way to OR.. [place] Monitoring Plan Monitoring plan: Standard ASA. Post Procedure Analgesic Plan Postoperative analgesic plan: parenteral or oral opioids and multimodal analgesia. Informed Consent Anesthetic risks, benefits, alternatives, personnel and consent discussed: yes. Patient / Responsible Green Party agrees to proceed: yes Patient / Surrogate agrees to blood products: yes DNR status not reviewed with patient and/or family prior to surgery. Significant changes in the patient condition since the History and Physical, not otherwise documented in primary service progress note: no. Potential Anesthesia issues that may suggest increased risk of complications or contraindication to planned procedure: none. Vitals Value Taken Time BP 117/67 03/24/23 0627 Pulse Resp 16 03/24/23 0627 Temp 37.1 ?C (98.8 ?F) 03/24/23626 SpO2 100 % 03/24/23626 Facility-Administered Medications as of 03/24/2023 Medication Dose Route Frequency - [COMPLETED] acetaminophen 1,000 mg tab(s) (TYLENOL) 1,000 mg ORAL Pre-Op Once - [COMPLETED] promethazine 12.5 mg tab(s) (PHENERGAN) 12.5 mg ORAL Pre-Op Once - lactated ringers iv infusion 30 mL/hr INTRAVENOUS CONTINUOUS - scopolamine 1 mg over 3 days 1 Patch (TRANSDERM-SCOP) 1 Patch TRANSDERMAL ONCE Outpatient Medications as of 03/24/2023 Medication Sig - sertraline (ZOLOFT) 100 mg tablet Take 100 mg by mouth once daily. - traZODone (DESYREL) 100 mg tablet Take 100 mg by mouth. - albuterol HFA (PROVENTIL HFA, VENTOLIN HFA) 90 mcg/actuation inhaler Inhale 1 Puff as instructed every 4 hours as needed. - promethazine (PHENERGAN) 25 mg tablet Take 25 mg by mouth every 6 hours as needed. - vit/iron fum/folic ac (-FOLIC ACID ORAL) Take by mouth. - ondansetron orally disintegrating (ZOFRAN ODT) 4 mg disintegrating tablet Take 1 tablet by mouth every 6 hours as needed for nausea/vomiting. - diphenhydrAMINE (SLEEP AID, DIPHENHYDRAMINE,) 50 mg capsule Take 50 mg by mouth every 6 hours as needed. I have interviewed and examined the patient. I have reviewed the medical record and/or the pre-anesthesia evaluation, pertinent labs, and test results. This contains updated information obtained within 48 hours of Surgery/Procedure. SIGNATURE: Keyona Fraser MD PATIENT NAME: Kendall Vasques DATE: March 24, 2023 TIME: 6:54 AM CSN: [id number] [facility] OPERATIVE NOon 03-24-2023 OPERATIVE NO HNO ID: [id number] Author: MARY LOU MORRISON DO Service: Gynecology Author Type: Physician Type: Operative Report Filed: 03/24/2023 10:23 Note Text: 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 OPERATIVE/PROCEDURE REPORT LOG ID: [id number] Surgery/Procedure Date: 03/24/2023 Incision/Procedure Start Time: 8:03 AM Incision Close/Procedure End Time: 9:07 AM Surgeon(s)/Proceduralist(s ) and Alcoholism Worker(s): Surgeon(s) and Role: * Mary Lou Morrison, - Primary * Tea Diallo DO - Resident - Assisting Physician Alcoholism Worker: Maryjane Rolon PA-C Informed Consent: Informed Consent obtained and on the chart Procedure: Total laparoscopic hysterectomy, left salpingectomy, excision of endometriosis, cystoscopy Pre-Op/Pre-Procedure Diagnosis: Pelvic pain and AUB Post-Op/Post-Procedure Diagnosis: Same as pre-op diagnosis Antibiotic: Pre-op antibiotics as ordered Findings: Uterus: hypervascularity, normal size Left ovary: 2cm physiologic cyst Right ovary: surgically absent Left fallopian tube: normal Right fallopian tube: Surgically absent Posterior cul-de-sac: normal Liver: normal Other: right pelvic brim lesion, scarring and fibrosis of the left pelvic sidewall Procedure Details: Patient was taken to the operating room where the sign-in and time out were completed. General anesthesia was induced and found to be adequate. She was placed in a [facility] Exam under anesthesia was performed with findings mentioned above. The abdomen, perineum and vagina were prepped and draped in the usual sterile fashion. SCDs were placed and turned on for DVT prophylaxis. A Llanes catheter was placed in the urinary bladder under sterile conditions An open-sided speculum was placed in the patient's vagina with clear visualization of the cervix. The anterior lip of the cervix was grasped with a single tooth tenaculum. The cervix was serially dilated to allow placement of a medium V-care uterine manipulator which was left in place throughout the laparoscopic portion of the procedure. The tenaculum and speculum were removed. Attention was turned to the abdomen with clean sterile gloves. Abdominal entry was achieved by Kristy technique. An incision was made cephalad to caudad with excision of the skin at the base of the umbilicus. The fascia was identified and tented up with Vannessa clamps and the fascial incision was extended superiorly and inferiorly. The peritoneum was identified, tented with fine tip kalyani clamps and incised. Entry to the peritoneal cavity confirmed. A 10 mm port was placed and secured in place. The abdomen was insufflated to a pressure of 15 mmHg. Accessory ports placed under direct visualization as follows: RLQ//LLQ/LUQ: 5 mm trocars. The pelvic and abdominal contents were inspected and findings were as above. The monopolar spatula and the ligasure were used for electrocautery throughout the case. The monopolar spatula was then used to take down the physiologic adhesions from the sigmoid to the left pelvic sidewall in order to mobilize the bowel. Hysterectomy was initiated from the left. The distal fallopian tube was grasped, elevated, and transected along the mesosalpinx and removed from a lateral trocar. Next, the utero-ovarian ligament was sealed and divided using the Ligasure followed by the round ligament. The left pelvic sidewall was entered and the pararectal space was developed. The left ureter was completely lateralized and was necessary due to the reteroperitoneal scarring from endometriosis. The left pelvic peritoneum was completely excised. The broad ligament was dissected to the cervical cup. Next, the anterior cup was identified and the bladder was dissected away from the uterine vessels, which were then skeletonized at the internal cervical os and sealed. Hysterectomy was continued on the right side. The right round ligament was sealed and divided. The broad ligament was entered and the posterior leaf was dissected to the cervical cup. The anterior cup was identified and the bladder was dissected away from the uterine vessels, which were then skeletonized at the internal cervical os and sealed. The cup was identified easily around the cervix. The bladder was ensured to be out of our colpotomy incision site. A monopolar spatula was used to perform the colpotomy circumferentially along the colpotomizer cup. Specimen was removed through the vagina intact and passed off for pathology. The cuff was re-approximated with 2.0 V-loc suture in a running manner through a laparoscopic approach in two layers with good hemostasis. A lesion on the right pelvic brim was identified and excised with the monopolar. The llanes was removed and cystoscopy was then performed which revealed brisk bilateral ureteral jets without injury to bladder mucosa. The pelvis was irrigated of all clot and debris. All pedicles were noted to be hemostatic. All of instruments were removed. The umb (more content not included)... [facility] SURGICAL PATHOLOGYon 024 CASE REPORT Normal [facility] Comment on above: Order Comment: Speci men Type: TISSUE SPECIMENOrdering Facility: [facility] Address: [address] [place] [address] Result Comment: [facility] Pathology Report Case: [id number] Authorizing Provider: Mary Lou Morrison DO Collected: 03/24/2023 08:26 AM Ordering Location: [facility] Surgery Received: 03/24/2023 10:05 AM Pathologist: Nikki Hammonds MD Specimens: A) - PELVIC SIDE WALL, left pelvic sidewall B) - UTERUS, CERVIX AND FALLOPIAN TUBE LEFT, uterus, cervix, left fallopian tube C) - SOFT TISSUE, right pelvic brim peritoneum Performed By: #### S ####[facility] LABCLIA [id number] [address] OF [facility] CLINICAL HISTORY Normal [facility] Comment on above: Order Comment: Speci men Type: TISSUE SPECIMENOrdering Facility: [facility] Address: [address] [place] [address] Result Comment: Pre- op diagnosis: Pelvic pain in female [R10.2] Performed By: #### S ####[facility] LABCLIA [id number] [address] FINAL DIAGNOSIS Normal [facility] Comment on above: Order Comment: Speci men Type: TISSUE SPECIMENOrdering Facility: [facility] Address: [address] [place] [address] Result Comment: A. P elvic sidewall tissue, excision - Endometriosis. B. Uterus, cervix, left fallopian tube, hysterectomy and left salpingectomy: Cervix- Chronic inflammation and tubal metaplasia. Endometrium- Secretory endometrium. Myometrium- Adenomyosis. Fallopian tube- Hydrosalpinx. C. Right pelvic brim peritoneum, soft tissue, excision: - Fibroadipose tissue with mild chronic inflammation. Performed By: #### S ####[facility] LABCLIA [id number] [address] [place] FINAL PERFORMING LAB Normal [facility] Comment on above: Order Comment: Speci men Type: TISSUE SPECIMENOrdering Facility: [facility] Address: [address] [place] [address] Result Comment: Diag nostic interpretation performed at [facility], [address] [place] [address] CLIA# [id number] Environmental Construction Engineer: Matthieu Drew M.D. Performed By: #### S ####[facility] LABCLIA [id number] [facility] [id number] [place] GROSS DESCRIPTION Normal [facility] Comment on above: Order Comment: Speci men Type: TISSUE SPECIMENOrdering Facility: [facility] Address: [address] [place] [address] Result Comment: A. P ELVIC SIDE WALL Received in formalin labeled left pelvic sidewall is a 2.0 x 1.0 x 0.3 cm aggregate of pink, irregular fibromembranous soft tissue. No discrete nodules or lesions are identified. The specimen is entirely submitted intact in one cassette. B. UTERUS, CERVIX AND FALLOPIAN TUBE LEFT Received in formalin labeled uterus, cervix, left fallopian tube is a uterus with attached cervix and detached fragmented fimbriated fallopian tube weighing 61.6 g in aggregate. The uterus with attached cervix measures 6.8 x 4.5 x 3.5 cm. The serosal surface is pink-falk and smooth. The ectocervix is khan and prominent, and demonstrates a patent fishmouth cervical os. The endocervical canal measures 2.4 cm in length and is moderately edematous but otherwise unremarkable. The endometrial cavity measures 3.0 cm in length by 2.6 cm in greatest width. The endometrium is pink and edematous with a thickness of 1 to 3 mm. No discrete polyps or lesions are identified. The myometrium measures up to 2.0 cm in thickness and is unremarkable. The fimbriated fallopian tube aggregates to 5.0 cm in length by 0.5 cm in diameter. The outer surface is falk and moderately fibrous. Sectioning reveals a pinpoint lumen and unremarkable cut surfaces. Regulatory Agency Director sections are submitted as follows: B1 anterior cervix at 12:00, B2 posterior cervix at 6:00, B3 anterior uterine wall full-thickness, B4 posterior uterine wall full-thickness, B5 fallopian tube with entire fimbriated end. C. SOFT TISSUE Received in formalin labeled right pelvic brain peritoneum is a falk-khan, irregular membranous soft tissue fragment measuring 1.1 x 0.9 x 0.3 cm. The specimen is sectioned and entirely submitted in one cassette. Gross examination performed at [facility], [address] [facility] [address] CLIA# [id number] [facility] 03/24/23 Performed By: #### S ####[facility] LABCLIA [id number] [facility] [id number] [id number] [facility] CNPN Telephone (Local [facility]) -- KENDALL VASQUES ([id number]) 1985 F Date Time Provider Department 03/17/23 MARY LOU MORRISON During your visit today, we recorded the following information about you: Vicente Devine 03/17/2023 1:31 PM Signed Patient is scheduled for EUA, TLH, b/l saplingectomy, EoE, cystoscopy on 03/24/23. Patient asked if ok to drink Ensure pre-surgery prior to surgery. It is a clear drink with carbohydrates and electrolytes. She heard it was recommended by other people who have had similar surgery. Advised patient ok to drink clear liquid until 2 hours prior to arrival time. Do not drink any dairy. Will inform Dr. Morrison and if she has any objection to patient drinking the pre-surgery drink, will notify patient via [employer]. Patient verbalized understanding. Allergies As of Date: 03/17/2023 Noted Allergy Reaction SHELLFISH CONTAINING PRODUCTS 04/17/2021 7 - Swelling ADHESIVE 06/17/2011 2 - Rash CODEINE 09/20/2009 4 - Hives 11 - Vomiting FLAGYL (METRONIDAZOLE) 09/27/2021 14 - Other: See Comments Comments: SZ MORPHINE 05/23/2022 4 - Hives NSAIDS (NON-STEROIDAL ANTI-INFLAM*09/27/2021 14 - Other: See Comments Comments: Stage 2 kidney dx TOPAMAX (TOPIRAMATE) 09/27/2021 8 - GI Upset Date Reviewed: 03/16/2023 Reviewed by: Vicente Devine E - Fully Assessed Prescriptions as of 03/17/2023 - tiZANidine HCl (ZANAFLEX) 2 mg capsule Take 1-2 capsules by mouth three times a day as needed. - ibuprofen (MOTRIN) 800 mg tablet Take 1 tablet by mouth every 8 hours as needed for pain. - norethindrone (AYGESTIN) 5 mg tablet Take 1 tablet by mouth once daily. - sertraline (ZOLOFT) 100 mg tablet Take 100 mg by mouth once daily. - albuterol HFA (PROVENTIL HFA, VENTOLIN HFA) 90 mcg/actuation inhaler Inhale 1 Puff as instructed every 4 hours as needed. - promethazine (PHENERGAN) 25 mg tablet Take 25 mg by mouth every 6 hours as needed. - traZODone (DESYREL) 100 mg tablet Take 100 mg by mouth. - vit/iron fum/folic ac (-FOLIC ACID ORAL) Take by mouth. - ondansetron orally disintegrating (ZOFRAN ODT) 4 mg disintegrating tablet Take 1 tablet by mouth every 6 hours as needed for nausea/vomiting. - diphenhydrAMINE (SLEEP AID, DIPHENHYDRAMINE,) 50 mg capsule Take 50 mg by mouth every 6 hours as needed. Problem List As Of Date 03/17/2023 Noted Resolved UTI (Lower Urinary Tract Infection) [N39.0] 09/20/2009 Calculus of Kidney [N20.0] 09/20/2009 Seizure disorder [G40.909] 09/20/2009 07/15/2011 Viral Warts due to HPV [B07.9] 09/20/2009 Transient alteration of awareness [R40.4] 04/01/2011 11/21/2015 Reactive hypoglycemia [E16.1] 06/17/2011 Hirsutism [L68.0] 06/17/2011 Irregular menses [N92.6] 06/17/2011 Right flank pain [R10.9] 04/18/2015 Lower urinary tract symptoms (LUTS) [R39.9] 04/18/2015 Breast pain [N64.4] 04/26/2015 Fever [R50.9] 03/19/2016 Urinary tract infection with hematuria [N39.0, *03/19/2016 12/25/2018 Vision loss of right eye [H54.61] 12/27/2016 Left amblyopia [H53.002] 12/27/2016 Supervision of with history of infert*11/17/2022 Vaginal bleeding in , first trimester *11/17/2022 Antepartum multigravida of advanced maternal ag*11/17/2022 History of hypertension [Z86.79] 11/17/2022 History of classical section [Z98.891] 11/17/2022 History of placental abruption [Z87.59] 11/17/2022 in prior , currently pr*11/17/2022 History of depression [Z87.59, Z86.5*11/17/2022 History of cervical LEEP biopsy affecting care *11/17/2022 Nausea and vomiting during [O21.9] 11/17/2022 History of depression/anxiety/insomni a [Z86.59] 11/17/2022 History of psychogenic nonepileptic seizure [Z8*11/17/2022 Stage 2 chronic kidney disease [N18.2] 11/17/2022 ROSA (obstructive sleep apnea) [G47.33] 03/09/2023 Congenital heart defect [Q24.9] 03/09/2023 Encounter Status:Closed by VICENTE DEVINE on 03/17/23 Normal [facility] Nikita 03-16-2023 CNOV Office Visit ([facility]ME ) -- KENDALL VASQUES ([id number]) 1985 F Date Time Provider Department 03/16/23 2:00 PM MARY LOU MORRISON During your visit today, we recorded the following information about you: Mary Lou Morrison DO 03/17/2023 12:03 PM Signed [facility] SECTION FOR MINIMALLY INVASIVE GYNECOLOGIC SURGERY OUTPATIENT VISIT DATE 03/16/2023 OUTPATIENT VISIT TYPE Follow-up visit PRIMARY CARE PHYSICIAN: WINSOME CUEVAS [address] [place] [address] REFERRING PHYSICIAN: * No referring provider recorded for this case * CHIEF COMPLAINT: No chief complaint on file. HISTORY OF PRESENT ILLNESS: Kendall Vasques is a pleasant 37 year old female who presents for pre-op/fuv. In clinic today, pt reports LLQ pain is getting worse since last visit 09/25. She had her MRI on 03/02/23. ====== CINDY 01/28/23: IMPRESSION: Ms. Vasques is a 37 year old female who presents with aub, dysmenorrhea, endometriosis. AUB - A: we discussed adenomyosis, etiologies, risk factors and management options. Patient has failed medical management. The pain is severe and significantly impacting her quality of life. She desires surgical management. We discussed proceeding with a total laparoscopic hysterectomy, bilateral salpingectomy and cystoscopy. We discussed the risks of the procedure including risks of bleeding, infection and injury to surrounding organ structures such as bowel, bladder and major vessels. Pelvic pain, endometriosis: We discussed at length what is known about the pathophysiology of endometriosis. EThe diagnosis can only be confirmed by surgery with tissue sample examined by pathology. Educated that endometriosis is often a chronic condition that may recur and often requires a local company intermodal truck driver treatment plan. Once endometriosis is identified, there are many effective therapies for endometriosis, but, unfortunately, there is no single therapy that is effective for all women with endometriosis-related pelvic pain. The first line therapy for women with endometriosis who are not trying to conceive is often hormonal suppression and approximately 70% of women experience improvement in their pain with hormonal suppression (i.e., progestins, oral contraceptives). Surgical therapy with excision and/or ablation of endometriosis provides a similar chance for pain improvement (~ 70%), but the risk of recurrent pain approaches 50% just 2 - 4 years after surgery. Given patient's bowel symptoms, constipation, and dyspareunia, ordered pelvic MRI for surgical planning. Will get records from OSH/operative and pathology report. We discussed proceeding with a total laparoscopic hysterectomy, bilateral salpingectomy, excision of endometriosis and cystoscopy. We discussed the risks of the procedure including risks of bleeding, infection and injury to surrounding organ structures such as bowel, bladder and major vessels. Rx'd norethindrone 5 mg daily, ordered pelvic MRI Surgical consent signed Written and verbal health teaching given to patient, patient verbalizes understanding and agrees with treatment plan. Mary Lou Morrison, DO ====== MRI pelvis 03/02/23: IMPRESSION: 1. Linear T2 hypointensity extends from the left ovary to the cervix and an adjacent loop of proximal sigmoid colon. This may be due to endometriosis or adhesions related to prior surgery. There is loss of the fat plane between the left ovary and adjacent proximal sigmoid colon, possibly due to tethering. 2. Postoperative changes from right oophorectomy and a section. 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 History Comments: Sexual Activity: Yes; Male Contraception: Pill Past Obstetrical History: OB History T0 L0 SAB0 IAB0 Ectopic0 Multiple0 Live Births1 Past Medical History: PAST MEDICAL HISTORY Diagnosis Date Abnormal Pap smear of cervix +HPV Anemia Asthma Breast cyst, left 2019 Chlamydia Depression/anxiety Herpes simplex virus (HSV) infection Hx of ovarian cyst Hx: UTI (urinary tract infection) Hypertension Hypoglycemia 5 years ago Infectious mononucleosis Infertility, female Insomnia in prior , currently 11/17/2022 PID (acute pelvic inflammatory disease) 2015 Placental abruption depression Recurrent UTI Renal calculi recurrent kidney stones Seizure disorder (HCC) psychogenic Sickle cell anemia (HCC) Syncope and collapse with pseudo-seizures Thyroid disease Past Surgical History: PAST SURGICAL HISTORY Procedure Laterality Date BREAST CYST ASPIRATION - ADDTL LESION 2019 Dr Corona-Arleth CERVIX UTERI CONIZA LP ELCTRO EXCI 2008 SEC (more content not included)... Normal [facility] CBC W Auto Differential pane l (Bld)on 03-09-2023 Basophils (Bld) [#/Vol] 0.04 10*3/uL Normal <0.11 [facility] Comment on above: Order Comment: Speci men Type: BLOOD SPECIMENOrdering Facility: [facility] Address: [address] [place] [address] Performed By: #### 5 7021-8 ####[facility] MILLWNCLIA [id number] [place] [address] [place] Basophils/100 WBC (Bld) 0.7 % Normal [facility] Comment on above: Order Comment: Speci men Type: BLOOD SPECIMENOrdering Facility: [facility] Address: [address] [place] [address] Performed By: #### 5 7021-8 ####[facility] MIAMINCLIA [id number] [place] [address] [place] Differential cell count method Nom (Bld) Auto Normal [facility] Comment on above: Order Comment: Speci men Type: BLOOD SPECIMENOrdering Facility: [facility] Address: [address] [place] [address] Performed By: #### 5 7021-8 ####[facility] MILLWNCLIA [id number] [place] [address] [place] Eosinophils (Bld) [#/Vol] 0.14 10*3/uL Normal <0.46 [facility] Comment on above: Order Comment: Speci men Type: BLOOD SPECIMENOrdering Facility: [facility] Address: [address] [place] [address] Performed By: #### 5 7021-8 ####[facility] MILLTOWNCLIA [id number] [place] [address] [place] Eosinophils/100 WBC (Bld) 2.3 % Normal [facility] Comment on above: Order Comment: Speci men Type: BLOOD SPECIMENOrdering Facility: [facility] Address: [address] [place] [address] Performed By: #### 5 7021-8 ####[facility] MILLWNCLIA [id number] [place] [address] [place] Erythrocyte distribution width (RBC) [Ratio] 12.4 % Normal 11.5-15.0 [facility] Comment on above: Order Comment: Speci men Type: BLOOD SPECIMENOrdering Facility: [facility] Address: [address] [place] [address] Performed By: #### 5 7021-8 ####[facility] MIAMITREE [id number] [place] [address] [place] Hematocrit (Bld) [Volume fraction] 37.9 % Normal 36.0-46.0 [facility] Comment on above: Order Comment: Speci men Type: BLOOD SPECIMENOrdering Facility: [facility] Address: [address] [place] [address] Performed By: #### 5 7021-8 ####[facility] MIAMIMARVELRsoalva [id number] [place] [address] [place] Hemoglobin (Bld) [Mass/Vol] 12.0 g/dL Normal 11.5-15.5 [facility] Comment on above: Order Comment: Speci men Type: BLOOD SPECIMENOrdering Facility: [facility] Address: [address] [place] [address] Performed By: #### 5 7021-8 ####[facility]PITALLIA [id number] [place] [address] [place] Immature granulocytes (Bld) [#/Vol] 0.03 10*3/uL Normal <0.10 [facility] Comment on above: Order Comment: Speci men Type: BLOOD SPECIMENOrdering Facility: [facility] Address: [address] [place] [address] Performed By: #### 5 7021-8 ####[facility] MIAMINCLIA [id number] [place] [address] [place] Immature granulocytes/100 WBC (Bld) 0.5 % Normal [facility] Comment on above: Order Comment: Speci men Type: BLOOD SPECIMENOrdering Facility: [facility] Address: [address] [place] [address] Performed By: #### 5 7021-8 ####[facility] DAMIANChristineNCLIA [id number] [place] [address] [place] Lymphocytes (Bld) [#/Vol] 2.38 10*3/uL Normal 1.00-4.00 [facility] Comment on above: Order Comment: Speci men Type: BLOOD SPECIMENOrdering Facility: [facility] Address: [address] [place] [address] Performed By: #### 5 7021-8 ####[facility] MIAMINCA [id number] [place] [address] [place] Lymphocytes/100 WBC (Bld) 38.7 % Normal [facility] Comment on above: Order Comment: Speci men Type: BLOOD SPECIMENOrdering Facility: [facility] Address: [address] [place] [address] Performed By: #### 5 7021-8 ####[facility] MIAMINCA [id number] [place] [address] [place] MCH (RBC) [Entitic mass] 29.9 pg Normal 26.0-34.0 [facility] Comment on above: Order Comment: Speci men Type: BLOOD SPECIMENOrdering Facility: [facility] Address: [address] [place] [address] Performed By: #### 5 7021-8 ####[facility]ALLIA [id number] [place] [address] [place] MCHC (RBC) [Mass/Vol] 31.7 g/dL Normal 30.5-36.0 [facility] Comment on above: Order Comment: Speci men Type: BLOOD SPECIMENOrdering Facility: [facility] Address: [address] [place] [address] Performed By: #### 5 7021-8 ####[facility] MIAMINCLIA [id number] [place] [address] [place] MCV (RBC) [Entitic vol] 94.5 fL Normal 80.0-100.0 [facility] Comment on above: Order Comment: Speci men Type: BLOOD SPECIMENOrdering Facility: [facility] Address: [address] [place] [address] Performed By: #### 5 7021-8 ####[facility]PITALLIA [id number] [place] [address] [place] Monocytes (Bld) [#/Vol] 0.57 10*3/uL Normal <0.87 [facility] Comment on above: Order Comment: Speci men Type: BLOOD SPECIMENOrdering Facility: [facility] Address: [address] [place] [address] Performed By: #### 5 7021-8 ####[facility] [id number] [place] [address] [place] Monocytes/100 WBC (Bld) 9.3 % Normal [facility] Comment on above: Order Comment: Speci men Type: BLOOD SPECIMENOrdering Facility: [facility] Address: [address] [place] [address] Performed By: #### 5 7021-8 ####[facility]PITALLIA [id number] [place] [address] [place] Neutrophils (Bld) [#/Vol] 2.99 10*3/uL Normal 1.45-7.50 [facility] Comment on above: Order Comment: Speci men Type: BLOOD SPECIMENOrdering Facility: [facility] Address: [address] [place] [address] Performed By: #### 5 7021-8 ####[facility]INC[facility] [id number] [place] [address] [place] Neutrophils/100 WBC (Bld) 48.5 % Normal [facility] Comment on above: Order Comment: Speci men Type: BLOOD SPECIMENOrdering Facility: [facility] Address: [address] [place] [address] Performed By: #### 5 7021-8 ####[facility] [id number] [place] [address] [place] Nucleated RBC (Bld) [#/Vol] 10*3/uL Normal <0.01 [facility] Comment on above: Order Comment: Speci men Type: BLOOD SPECIMENOrdering Facility: [facility] Address: [address] [place] [address] Performed By: #### 5 7021-8 ####[facility] [id number] [place] [address] [place] Nucleated RBC/100 WBC (Bld) [Ratio] 0.0 /100 WBC Normal [facility] Comment on above: Order Comment: Speci men Type: BLOOD SPECIMENOrdering Facility: [facility] Address: [address] [place] [address] Performed By: #### 5 7021-8 ####[facility]OSPITALLI [id number] [place] [address] [place] Platelet mean volume (Bld) [Entitic vol] 9.8 fL Normal 9.0-12.7 [facility] Comment on above: Order Comment: Speci men Type: BLOOD SPECIMENOrdering Facility: [facility] Address: [address] [place] [address] Performed By: #### 5 7021-8 ####[facility] MIAMINCLI [id number] [place] [address] [place] Platelets (Bld) [#/Vol] 181 10*3/uL Normal 150-400 [facility] Comment on above: Order Comment: Speci men Type: BLOOD SPECIMENOrdering Facility: [facility] Address: [address] [place] [address] Performed By: #### 5 7021-8 ####[facility] MIAMINCLIA [id number] [place] [address] [place] RBC (Bld) [#/Vol] 4.01 10*6/uL Normal 3.90-5.[address] [facility] Comment on above: Order Comment: Speci men Type: BLOOD SPECIMENOrdering Facility: [facility] Address: [address] [place] [address] Performed By: #### 5 7021-8 ####[facility] MIAMINCLIA [id number] [place] [address] [place] WBC (Bld) [#/Vol] 6.15 10*3/uL Normal 3.70-11.[address] [facility] Comment on above: Order Comment: Speci men Type: BLOOD SPECIMENOrdering Facility: [facility] Address: [address] [place] [address] Performed By: #### 5 7021-8 ####[facility]PITALLIA [id number] [place] [address] [place] [facility] 03-09-2023 DORETHAN Telephone (JENARO) -- KENDALL VASQUES ([id number]) 1985 F Date Time Provider Department 03/09/23 MABEL LESTER During your visit today, we recorded the following information about you: Mabel Lester APRN.DECK MECHANIC 03/09/2023 10:00 AM Signed Please request most recent echo from [facility]. Should just be a few years old. Olga Lidia Maciel LPN 03/09/2023 10:30 AM Signed Fax request sent to [facility] HIM requesting Echo for upcoming surgery 03/24/23. HARLEY Bartholomew Olga LidiaHARLEY moss 03/11/2023 2:28 PM Signed Received Echo from [facility] 06/07/21. Copy made for Mabel Lester CNP and original sent to [facility] through Onbase scanning. Olga Lidia Maciel LPN Allergies As of Date: 03/09/2023 Noted Allergy Reaction SHELLFISH CONTAINING PRODUCTS 04/17/2021 7 - Swelling ADHESIVE 06/17/2011 2 - Rash CODEINE 09/20/2009 4 - Hives 11 - Vomiting FLAGYL (METRONIDAZOLE) 09/27/2021 14 - Other: See Comments Comments: SZ MORPHINE 05/23/2022 4 - Hives NSAIDS (NON-STEROIDAL ANTI-INFLAM*09/27/2021 14 - Other: See Comments Comments: Stage 2 kidney dx TOPAMAX (TOPIRAMATE) 09/27/2021 8 - GI Upset Date Reviewed: 03/09/2023 Reviewed by: Mabel Lester APRN.DORETHA - Fully Assessed Reason for Visit: Request Outside Medical Records [[id number]] Prescriptions as of 03/11/2023 - tiZANidine HCl (ZANAFLEX) 2 mg capsule Take 1-2 capsules by mouth three times a day as needed. - ibuprofen (MOTRIN) 800 mg tablet Take 1 tablet by mouth every 8 hours as needed for pain. - norethindrone (AYGESTIN) 5 mg tablet Take 1 tablet by mouth once daily. - sertraline (ZOLOFT) 100 mg tablet Take 100 mg by mouth once daily. - albuterol HFA (PROVENTIL HFA, VENTOLIN HFA) 90 mcg/actuation inhaler Inhale 1 Puff as instructed every 4 hours as needed. - promethazine (PHENERGAN) 25 mg tablet Take 25 mg by mouth every 6 hours as needed. - traZODone (DESYREL) 100 mg tablet Take 100 mg by mouth. - vit/iron fum/folic ac (-FOLIC ACID ORAL) Take by mouth. - ondansetron orally disintegrating (ZOFRAN ODT) 4 mg disintegrating tablet Take 1 tablet by mouth every 6 hours as needed for nausea/vomiting. - diphenhydrAMINE (SLEEP AID, DIPHENHYDRAMINE,) 50 mg capsule Take 50 mg by mouth every 6 hours as needed. Problem List As Of Date 03/09/2023 Noted Resolved UTI (Lower Urinary Tract Infection) [N39.0] 09/20/2009 Calculus of Kidney [N20.0] 09/20/2009 Seizure disorder [G40.909] 09/20/2009 07/15/2011 Viral Warts due to HPV [B07.9] 09/20/2009 Transient alteration of awareness [R40.4] 04/01/2011 11/21/2015 Reactive hypoglycemia [E16.1] 06/17/2011 Hirsutism [L68.0] 06/17/2011 Irregular menses [N92.6] 06/17/2011 Right flank pain [R10.9] 04/18/2015 Lower urinary tract symptoms (LUTS) [R39.9] 04/18/2015 Breast pain [N64.4] 04/26/2015 Fever [R50.9] 03/19/2016 Urinary tract infection with hematuria [N39.0, *03/19/2016 12/25/2018 Vision loss of right eye [H54.61] 12/27/2016 Left amblyopia [H53.002] 12/27/2016 Supervision of with history of infert*11/17/2022 Vaginal bleeding in , first trimester *11/17/2022 Antepartum multigravida of advanced maternal ag*11/17/2022 History of hypertension [Z86.79] 11/17/2022 History of classical section [Z98.891] 11/17/2022 History of placental abruption [Z87.59] 11/17/2022 in prior , currently pr*11/17/2022 History of depression [Z87.59, Z86.5*11/17/2022 History of cervical LEEP biopsy affecting care *11/17/2022 Nausea and vomiting during [O21.9] 11/17/2022 History of depression/anxiety/insomni a [Z86.59] 11/17/2022 History of psychogenic nonepileptic seizure [Z8*11/17/2022 Stage 2 chronic kidney disease [N18.2] 11/17/2022 ROSA (obstructive sleep apnea) [G47.33] 03/09/2023 Congenital heart defect [Q24.9] 03/09/2023 Encounter Status:Closed by OLGA LIDIA MACIEL on 03/11/23 Normal [facility] Comprehensive metabolic 2000 panelon 03-09-2023 Albumin [Mass/Vol] 4.2 g/dL Normal 3.9-4.9 [facility] Comment on above: Order Comment: Speci men Type: BLOOD SPECIMENOrdering Facility: [facility] Address: [address] [place] [address] Performed By: #### 2 4323-8 ####[facility] [id number] [place] [address] [place] ALP [Catalytic activity/Vol] 74 U/L Normal 34-123 [facility] Comment on above: Order Comment: Speci men Type: BLOOD SPECIMENOrdering Facility: [facility] Address: [address] [place] [address] Performed By: #### 2 4323-8 ####[facility] [id number] [place] [address] [place] ALT [Catalytic activity/Vol] 12 U/L Normal 7-38 [facility] Comment on above: Order Comment: Speci men Type: BLOOD SPECIMENOrdering Facility: [facility] Address: [address] [place] [address] Performed By: #### 2 4323-8 ####[facility]ALL[facility] [id number] [place] [address] [place] Anion gap [Moles/Vol] 8 mmol/L Low 9-18 [facility] Comment on above: Order Comment: Speci men Type: BLOOD SPECIMENOrdering Facility: [facility] Address: [address] [place] [address] Performed By: #### 2 4323-8 ####[facility] MILLTOWNCLIA [id number] [place] [address] [place] AST [Catalytic activity/Vol] 18 U/L Normal 13-35 [facility] Comment on above: Order Comment: Speci men Type: BLOOD SPECIMENOrdering Facility: [facility] Address: [address] [place] [address] Performed By: #### 2 4323-8 ####[facility]ITALWNCLIA [id number] [place] [address] [place] Bilirubin [Mass/Vol] 0.2 mg/dL Normal 0.2-1.3 [facility] Comment on above: Order Comment: Speci men Type: BLOOD SPECIMENOrdering Facility: [facility] Address: [address] [place] [address] Performed By: #### 2 4323-8 ####[facility]ITALWNCLIA [id number] [place] [address] [place] Calcium [Mass/Vol] 8.9 mg/dL Normal 8.5-10.2 [facility] Comment on above: Order Comment: Speci men Type: BLOOD SPECIMENOrdering Facility: [facility] Address: [address] [place] [address] Performed By: #### 2 4323-8 ####[facility]ITALWNCLIA [id number] [place] [address] [place] Chloride [Moles/Vol] 105 mmol/L Normal 97-105 [facility] Comment on above: Order Comment: Speci men Type: BLOOD SPECIMENOrdering Facility: [facility] Address: [address] [place] [address] Performed By: #### 2 4323-8 ####[facility] MIAMINCLIA [id number] [place] [address] [place] CO2 [Moles/Vol] 25 mmol/L Normal 22-30 [facility] Comment on above: Order Comment: Speci men Type: BLOOD SPECIMENOrdering Facility: [facility] Address: [address] [place] [address] Performed By: #### 2 4323-8 ####[facility] [id number] [place] [address] [place] Creatinine [Mass/Vol] 0.73 mg/dL Normal 0.58-0.96 [facility] Comment on above: Order Comment: Speci men Type: BLOOD SPECIMENOrdering Facility: [facility] Address: [address] [place] [address] Performed By: #### 2 4323-8 ####[facility] [id number] [place] [address] [place] Creatinine and Glomerular filtration rate.predicted panel (S/P/Bld) 109 mL/min/1.73m??? Normal >=60 [facility] Comment on above: Order Comment: Speci men Type: BLOOD SPECIMENOrdering Facility: [facility] Address: [address] [place] [address] Result Comment: Sammi mated Glomerular Filtration Rate (eGFR) is calculated using the 2020 CKD-EPI creatinine equation. This equation utilizes serum creatinine, sex, and age as parameters. The creatinine assay has traceable calibration to isotope dilution-mass spectrometry. Refer to KDIGO guidelines for clinical interpretation. In patients with unstable renal function, e.g. those with acute kidney injury, the eGFR may not accurately reflect actual GFR. Performed By: #### 2 4323-8 ####[facility] [id number] [place] [address] [place] Glucose [Mass/Vol] 93 mg/dL Normal 74-99 [facility] Comment on above: Order Comment: Speci men Type: BLOOD SPECIMENOrdering Facility: [facility] Address: [address] [place] [address] Result Comment: The [place] [employer] (ADA) provides guidance for cutoff values for fasting glucose and random glucose. The ADA defines fasting as no caloric intake for at least 8 hours. Fasting plasma glucose results between 100 to 125 mg/dL indicate increased risk for diabetes (prediabetes). Fasting plasma glucose results greater than or equal to 126 mg/dL meet the criteria for diagnosis of diabetes. In the absence of unequivocal hyperglycemia, results should be confirmed by repeat testing. In a patient with classic symptoms of hyperglycemia or hyperglycemic crisis, random plasma glucose results greater than or equal to 200 mg/dL meet the criteria for diagnosis of diabetes. Reference: Standards of Medical Care in Diabetes 2016, [place] [employer]. Diabetes Care. 2016.39(Suppl 1). Performed By: #### 2 4323-8 ####[facility] MILLTOWNCLIA [id number] [place] [address] [place] Potassium [Moles/Vol] 4.1 mmol/L Normal 3.7-5.1 [facility] Comment on above: Order Comment: Speci men Type: BLOOD SPECIMENOrdering Facility: [facility] Address: [address] [place] [address] Performed By: #### 2 4323-8 ####[facility]ITALWNCLIA [id number] [place] [address] [place] Protein [Mass/Vol] 6.8 g/dL Normal 6.3-8.0 [facility] Comment on above: Order Comment: Speci men Type: BLOOD SPECIMENOrdering Facility: [facility] Address: [address] [place] [address] Performed By: #### 2 4323-8 ####[facility] MILLTOWNCLIA [id number] [place] [address] [place] Sodium [Moles/Vol] 138 mmol/L Normal 136-144 [facility] Comment on above: Order Comment: Speci men Type: BLOOD SPECIMENOrdering Facility: [facility] Address: [address] [place] [address] Performed By: #### 2 4323-8 ####[facility] [id number] [place] [address] [place] Urea nitrogen [Mass/Vol] 10 mg/dL Normal 7-21 [facility] Comment on above: Order Comment: Speci men Type: BLOOD SPECIMENOrdering Facility: [facility] Address: [place] [address] Performed By: #### 2 4323-8 ####[facility] [id number] [place] [address] [place] HISTORY PHYSICALon HISTORY PHYSICAL HNO ID: [id number] Author: MABEL LESTER APRN.DORETHA Service: ? Author Type: Nurse Practitioner Type: H&P Filed: 03/09/2023 09:59 Note Text: HISTORY AND PHYSICAL EXAMINATION SERVICE DATE: 03/09/2023 SERVICE TIME: 9:58 AM PRIMARY CARE PHYSICIAN: Winsome Cuevas NP Assessment Patient has the following medical conditions which may affect bee-operative course: Stage 2 chronic kidney disease Assessment: following nephrology at [facility], hx of recurrent UTIs and recurrent kidney stones as well, new labs pending Creatinine Date Value Ref Range Status 05/23/2022 0.80 0.58 - 0.96 mg/dL Final 05/02/2022 0.79 0.58 - 0.96 mg/dL Final 09/27/2021 0.57 (L) 0.58 - 0.96 mg/dL Final 04/18/2015 0.91 0.70 - 1.40 mg/dL Final History of psychogenic nonepileptic seizure Assessment: states has been off medication for the last 4 years, last seizure 2020, she believes she has developed better coping skills for stress History of depression/anxiety/insomni a Assessment: anxiety and depression stable on rx per pt and insomnia tx nightly History of hypertension Assessment: hx, no longer taking rx Last 14 BP Last 14 Encounter BP Readings: Date: BP: 03/09/2023 116/76 01/28/2023 107/70 12/18/2022 106/66 12/09/2022 120/72 12/03/2022 114/78 11/24/2022 108/70 05/23/2022 108/75 05/02/2022 134/79 09/27/2021 110/70 12/27/2016 109/69 04/16/2016 104/74 03/19/2016 110/80 11/08/2015 118/72 05/10/2015 122/80 ROSA (obstructive sleep apnea) Assessment: pt states mild, does not use CPAP Congenital heart defect Assessment: pt reports incidential small few years ago on echo, pt was unaware she had this at the time and remains asymptomatic. Echo requested Duong Activity Status Index: METS: Climb a flight of stairs or walk up a hill (5.50 METs) DASI Score: 5.5 Patient denies any chest pain or undue shortness of breath with the above physical activity. Clinical Frailty Scale: 2. Well STOP-Bang Score: Snores loudly Has or is being treated for high blood pressure Denies feeling tired, fatigued, or sleepy during the daytime Has not been observed to stop breathing or choking/gasping during sleep BMI less than or equal to 35 kg/m2 Patient 50 years old or younger Does not have a large neck Non-male patient STOP-Bang Score: 2 [id number] Score: Age: <65 Sex: female CHF history: No Hypertension history: No Stroke/TIA/thromboembolism history: No Vascular disease history: No Diabetes history: No [id number] Score: 1 ARISCAT Score: Age: <=50 Preoperative SpO2: >=96% Respiratory infection in the last month: No Preoperative anemia: Yes Surgical incision: peripheral Duration of surgery: 2-3 hrs Emergency procedure: No ARISCAT Score: 27 ANESTHESIA FINDINGS: Intubation History: No history of difficult intubation Significant Anesthesia Considerations: none Airway History: No history of difficult airway I - PHYSICAL EVALUATION AIRWAY Patient intubated: No. Tracheostomy tube not present Mallampati: II. TM distance: >3 FB. Neck ROM: full ROM without neurological symptoms. Mouth opening: adequate. Short neck: no. Thick neck: no Bonds present: no Lip Bite Test: I Microretrognathia/Micronag thia/Recessed Chin: No DENTAL Dental findings: teeth intact. II - ANESTHESIA PLAN Anesthetic Plan: other Beta Hawa Monitoring Plan Post Procedure Analgesic Plan Informed Consent Anesthetic risks, benefits, alternatives, personnel and consent discussed: yes. Patient / Responsible Green Party agrees to proceed: yes Patient / Surrogate agrees to blood products: Yes Discussed the possibility of lip / dental damage: yes REASON FOR VISIT: Kendall Vasques is a 37 year old female who is scheduled for Procedure(s): LAPAROSCOPIC HYSTERECTOMY TOTAL FOR UTERUS 250 G OR LESS W/REMOVAL TUBE(S) AND/OR OVARY(S) (N/A) CYSTOSCOPY (N/A) at the request of @REFPROV2@ for consultation. My final recommendation will be communicated back to the requesting physician by way of shared medical record or letter. Subjective The patient has the following: ACTIVE PROBLEM LIST Uti (Lower Urinary Tract Infection) Calculus of Kidney Viral Warts Due to Hpv Reactive Hypoglycemia Hirsutism Irregular Menses Right Flank Pain Lower Urinary Tract Symptoms (Luts) Breast Pain Fever Vision Loss of Right Eye Left Amblyopia Supervision of With History of Infertility, First Trimester Vaginal Bleeding in , First Trimester Antepartum Multigravida of Advanced Maternal Age History of Hypertension History of Classical Section History of Placental Abruption in Prior , Currently History of Depression History of Cervical Leep Biopsy Affecting Care of Mother, Antepartum Nausea and Vomiting During History of depression/anxiety/insomni a History of Psychogenic Nonepileptic Sei (more content not included)... Normal [facility] TYPE AND SCREEN,30 DAYon ABO A Normal [facility] Comment on above: Order Comment: Speci men Type: BLOOD SPECIMENOrdering Facility: [facility] Address: [address] [place] [address] Performed By: #### T SCR30 ####[facility] MA[facility] BLOOD BANKCLIA [id number] [place] [address] [place] HISTORICAL AB SCR STATUS Negative Normal [facility] Comment on above: Order Comment: Speci men Type: BLOOD SPECIMENOrdering Facility: [facility] Address: [address] [place] [address] Performed By: #### T SCR30 ####[facility] MA[facility] BLOOD BANKCLIA [id number] [place] [address] [place] Rh Nom (Bld) Positive Normal [facility] Comment on above: Order Comment: Speci men Type: BLOOD SPECIMENOrdering Facility: [facility] Address: [address] [facility] [place] [address] Performed By: #### T SCR30 ####[facility] BLOOD BANKCLIA [id number] [id number] [id number] [place] [facility] CNPNon 03-05-2023 CNPN Telephone (WHQ) -- GWENDOLYNKASIA ROQUEISTChucho Green ([id number]) 1985 F Date Time Provider Department 03/05/23 MARY LOU MORRISON During your visit today, we recorded the following information about you: Lorin Garsia 03/05/2023 9:42 AM Signed Patient: Kendall Fernandezkshire : 1985 Provider: Mary Lou Morrison DO Caller Phone #: [phone] (home) [phone] (cell) Reason for call: PT CALLING IN RESPONSE TO [facility] MESSAGE ADVISING HER TO MAKE APPT FOR VIRTUAL WITH HEALTH NAVIGATOR IN REGARD TO PAIN. NO VIRTUALS AVAILABLE WITH HEALTH NAVIGATOR OR DR PRIOR TO SCHEDULED APPT ON 03/09 AND 03/16. WOULD LIKE TO KNOW IF THERE IS ANYTHING THAT CAN BE SENT TO PHARMACY TO HELP CONTROL THE PAIN. PLEASE ADVISE Message routed to nurse triage Date of next visit: Appointments for Next 60 Days Date Time Provider Location Dept Phone 03/09/2023 8:40 AM PACC MARTHA [facility] [phone] 03/16/2023 2:00 PM MARY LOU MORRISON [facility] [phone] 03/17/2023 1:00 PM URO 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 [facility] [phone] 04/08/2023 10:30 AM RDAHA SANTIAGO [facility] [phone] CINDY: Visit date not found Robby Jiang RN 03/05/2023 10:35 AM Signed Called pt and verified name and . Pt states she is having 9/10 LLQ and L sided pelvic pain that is a sharp stabbing sensation and tenderness at the site. LMP was 02/23/23, which lasted 3 days and pt states she had heavy bleeding with clotting. Pain is intermittent and occurred 1-2 days post menses. Notes taking 800 mg of Motrin, 1000 mg of Tylenol, heat with no improvement in pain symptoms. Pt had a recent Covid infection 02/12/23 but has been retested as negative. Denies painful BM's, constipation, nausea, vomiting, urinary hesitancy, frequency. Reports having normal BM's but notes feeling a twisted sensation and pressure in the ovary area with BM's. Reports increase an increase in fiber. Pt to be scheduled with a VV with Kimmy Mirza today at 1430. Robby Jiang RN March 05, 2023 10:30 AM Kimmy Mirza APRN.CNP 03/05/2023 11:32 AM Signed Noted Kimmy Mirza APRN.CNP Allergies As of Date: 03/05/2023 Noted Allergy Reaction SHELLFISH CONTAINING PRODUCTS 04/17/2021 7 - Swelling ADHESIVE 06/17/2011 2 - Rash CODEINE 09/20/2009 4 - Hives 11 - Vomiting FLAGYL (METRONIDAZOLE) 09/27/2021 14 - Other: See Comments Comments: SZ MORPHINE 05/23/2022 4 - Hives NSAIDS (NON-STEROIDAL ANTI-INFLAM*09/27/2021 14 - Other: See Comments Comments: Stage 2 kidney dx TOPAMAX (TOPIRAMATE) 09/27/2021 8 - GI Upset Date Reviewed: 01/28/2023 Reviewed by: Val Hare, VITA - Fully Assessed Reason for Visit: Orders [681] Patient Question [7057] Prescriptions as of 03/05/2023 - ibuprofen (MOTRIN) 800 mg tablet Take 1 tablet by mouth every 8 hours as needed for pain. - iv contrast (will be provided with radiology test) MRI Female Pelvis Inject, intravenously, once for 1 dose. No IV access, insert saline lock prior to the beginning of sedation, infusion, injection of imaging exam. Discontinue saline lock post exam. If Pt has a central line or IVAD, may access for administration according to line specific nursing protocol. Once exam is complete flush line and de-access according to line specific nursing protocol in the MR contrast administration guidelines link. - Surgical Lubricant Jelly gel For MRI Female Pelvis, MRI department to provide. Administer intra-vaginal Surgilube immediately prior the MRI procedure (total amount to patient toleranace). - norethindrone (AYGESTIN) 5 mg tablet Take 1 tablet by mouth once daily. - cyclobenzaprine (FLEXERIL) 5 mg tablet Take 1 tablet by mouth three times a day as needed. - Norethin Yrn-Eth Estrad-FE (LOESTRIN FE 03/07) 1 mg-20 mcg (21)/75 mg (7) per tablet Take 1 tablet by mouth once daily. - sertraline (ZOLOFT) 100 mg tablet Take 100 mg by mouth once daily. - albuterol HFA (PROVENTIL HFA, VENTOLIN HFA) 90 mcg/actuation inhaler Inhale 1 Puff as instructed every 4 hours as needed. - promethazine (PHENERGAN) 25 mg tablet Take 25 mg by mouth every 6 hours as needed. - traZODone (DESYREL) 100 mg tablet Take 100 mg by mouth. - vit/iron fum/folic ac (-FOLIC ACID ORAL) Take by mouth. - ondansetron orally disintegrating (ZOFRAN ODT) 4 mg disintegrating tablet Take 1 tablet by mouth every 6 hours as needed for nausea/vomiting. - tamsulosin (FLOMAX) 0.4 mg Take 1 capsule by mouth daily at bedtime for 7 days. - omeprazole (PRILOSEC) 20 mg capsule Take 1 capsule by mouth once daily for 28 days. - diphenhydrAMINE (BENADRYL) 25 mg capsule Take 1 capsule by mouth every 6 hours as needed (with Compazine). - gabapentin (NEURONTIN) 100 mg capsule Take 1 capsule by mouth once daily. - tiZANidine HCl (ZANAFLEX) 4 mg capsule Take 4 mg by mouth three times daily as needed for Muscle Spasm. - levETIRAcetam (KEPPRA) 500 mg tablet Take 500 mg by mouth (more content not included)... Normal [facility] MRI FEMALE PELVIS WO/W IVCON on 03-02-2023 MRI FEMALE PELVIS WO/W IVCON * * *Final Report* * * DATE OF EXAM: Mar 02 2023 3:10PM WRM [id number] - MRI FEMALE PELVIS WO/W IVCON / PROCEDURE REASON: Endometriosis * * * * Physician Interpretation * * * * MRI OF THE PELVIS WITHOUT AND WITH CONTRAST (ENDOMETRIOSIS PROTOCOL) CLINICAL HISTORY: Endometriosis TECHNIQUE: Magnet: 1.5 T Siemens Altea scanner. Coil: Torso phased array Sequences / planes: Multisequence, multiplanar MR imaging of the pelvis was performed with and without intravenous contrast. Contrast: Contrast Media 1: IV administration of 15 ml of Dotarem Contrast Media 2: administration of ml of Contrast Media 3: administration of ml of COMPARISON: Pelvic ultrasound 01/13/[address] abdomen and pelvis 05/23/2022 RESULT: Uterus: section scar is noted. Size: 5.5 x 3.2 x 5 cm Orientation: Anteverted and retroflexed Endometrium: Homogeneous signal intensity with no mass measuring 6 mm. Junctional zone: Maximum thickness: 8 mm, Homogeneous T2 hypointense signal Cervix: Normal Anterior compartment: Bladder: Normal with no endometriosis Ureters: No involvement. No hydronephrosis. Vesicouterine pouch: No endometriosis Vesicovaginal septum: No endometriosis Prevesicular space: No endometriosis Middle Compartment Disease: Ovaries: - Right ovary: Surgically absent - Left ovary: 3.3 x 1.8 x 3.3 cm Physiologic follicles present, no endometrioma. Linear T2 hypointensity extends from the left ovary to the cervix and an adjacent loop of proximal sigmoid colon. There is loss of the fat plane between the proximal sigmoid colon and left ovary. Fallopian tubes: No hydrosalpinx Torus uterinus (Uterine body): Uterine ligaments: Vagina: No endometriosis Posterior compartment disease: Retrocervical Space: No evidence of endometriosis Anterior rectal wall: No rectal wall involvement Uterosacral ligament: No thickening to suggest endometriosis Rectovaginal space / septum: Normal Additional bowel lesions present? (Sigmoid colon/ small bowel): -No additional bowel lesions identified - Additional sites of endometriosis: - No abdominal wall lesions - Pelvis free fluid: None Lymph nodes: No lymph nodes enlarged by size criteria. Bones:Normal marrow signal. IMPRESSION: 1. Linear T2 hypointensity extends from the left ovary to the cervix and an adjacent loop of proximal sigmoid colon. This may be due to endometriosis or adhesions related to prior surgery. There is loss of the fat plane between the left ovary and adjacent proximal sigmoid colon, possibly due to tethering. 2. Postoperative changes from right oophorectomy and a section. Green Building Materials Designer: JUWAN Transcribe Date/Time: Mar 03 2023 1:54P Dictated by : VAL MACKENZIE MD This examination was interpreted and the report reviewed and electronically signed by: VAL MACKENZIE MD on Mar 03 2023 2:34PM EST [id number] Normal [facility] CNOVon 01-28-2023 CNOV Office Visit (GMIGFV ) -- KENDALL VASQUES ([id number]) 1985 F Date Time Provider Department 01/28/23 9:00 AM MARY LOU MORRISON GMIGFV During your visit today, we recorded the following information about you: Blood pressure Weight Height Last Period 107 72.6 kg 1.626 m 01/25/23 Mary Lou Morrison DO 01/28/2023 10:55 AM Signed [facility] SECTION FOR MINIMALLY INVASIVE GYNECOLOGIC SURGERY OUTPATIENT VISIT DATE 01/28/2023 OUTPATIENT VISIT TYPE NEW PRIMARY CARE PHYSICIAN: WINSOME CUEVAS [address] [place] [address] REFERRING PHYSICIAN: Colleen Major Consultation requested by Colleen Jacob MD for an opinion regarding Kendall Vasques, and my final recommendations will be communicated back to the requesting physician by way of shared medical record or letter via US mail. CHIEF COMPLAINT: Pelvic pain HISTORY OF PRESENT ILLNESS: Kendall Vasques is a pleasant 37 year old female who presents for evaluation of pelvic pain, heavy menstrual bleeding, dysmenorrhea Bleeding is very heavy for the first three days, cramping and pain is severe S/p DANDC/suction - 11/2022 -cramping and bleeding has worsened Bleeding is irregular Medical management: has tried control- had side effects and did not improve bleeding/cramping Here for surgical consultation for hysterectomy Pain is constant but worse with her cycles Has had 2 miscarriages and since the first one in 2020 her cycles have been exteremly heacy 01/05/2021 at 24 weeks delivered c/s 11/24/2022 6 weeks DANDC Cycles are 28 days 4-5 days Heavy the first 3 days changes pads every hour, clots are nickel in size Cramping, pain, nausea, dizziness, pain with BM Also had a laparoscopic surgery 02/2022 done for pelvic pain Done at [facility] --- found endometriosis Does not have right tube and ovary 2013 removed NMPP: yes Was told she had endometriosis 2013 - [facility] Classical c/section - at 24 weeks Pain is so severe that she is requiring narcotics 01/13/2023 Imaging ultrasound IMPRESSION: Normal sonographic appearance of the uterus and left ovary. Satisfactory post right oophorectomy. RESULT: Uterus: -Size: 3.7 x 5.3 x 7.1 cm -Orientation: Retroverted -Endometrial echo complex: Evaluation of the endometrium was adequate. No endometrial abnormality. The endometrial echo complex measured 0.8 cm. -Cervix: Unremarkable. -Adenomyosis assessment: There are no sonographic findings of adenomyosis. -Fibroids: There are no fibroids. Right Ovary: Surgically absent. No sonographic evidence of right adnexal mass. Left Ovary: 2.1 x 2.4 x 3.3 cm - Normal sonographic appearance with physiologic follicles and a corpus luteum. Preserved arterial and venous blood flow. Free Fluid: No abnormal free fluid is present. 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 History Comments: Sexual Activity: Yes; Male Contraception: Pill Past Obstetrical History: OB History T0 L0 SAB0 IAB0 Ectopic0 Multiple0 Live Births1 Past Medical History: PAST MEDICAL HISTORY Diagnosis Date Abnormal Pap smear of cervix +HPV Anemia Asthma Breast cyst, left 2018 Chlamydia Depression/anxiety Herpes simplex virus (HSV) infection Hx of ovarian cyst Hx: UTI (urinary tract infection) Hypertension Hypoglycemia 5 years ago Infectious mononucleosis Infertility, female Insomnia PID (acute pelvic inflammatory disease) 2015 Placental abruption depression Recurrent UTI Renal calculi recurrent kidney stones Seizure disorder (HCC) psychogenic Sickle cell anemia (HCC) Syncope and collapse with pseudo-seizures Thyroid disease Past Surgical History: PAST SURGICAL HISTORY Procedure Laterality Date BREAST CYST ASPIRATION - ADDTL LESION 2018 Dr Corona-Drifting CERVIX UTERI CONIZA LP ELCTRO EXCI 2007 SECTION HX classical incision CT ABDOMEN 09/10/[address] [facility] [address] BRAIN 06/19/2005 [facility] DANDC, DIAG AND/OR THERAPEUTIC 11/27/2022 Suction DANDC for missed AB L'SCOPE DX W/WO BRUSHINGS/WASHINGS 03/17/2022 Dr Myers-pelvic pain-endometriosis ruled out L'SCOPE DX W/WO BRUSHINGS/WASHINGS 03/12/2020 lysis of adhesions-Dr Myers LITHOTRIPSY XTRCORP SHOCK WAVE 04/16/2006 Lithotripsy Right kidney OVARY SURGERY HX 04/10/2013 Excision of right fallopian tube and ovary PAST SURGICAL HISTORY OF 02/16/2003 right ear cartilage repair TONSILLECTOMY AND ADENOIDECTOMY HX 12/17/2012 Family History: FAMILY HISTORY Problem Relation Age of Onset Stroke Father No Known Problems (more content not included)... Normal [facility] FEMALE PELVIS TRANSVAGon 01-13-2023 US FEMALE PELVIS TRANSVAG * * *Final Report* * * DATE OF EXAM: Jan 13 2023 1:35PM U 1060 - US FEMALE PELVIS TRANSVAG / PROCEDURE REASON: multiple diagnoses * * * * Physician Interpretation * * * * EXAMINATION: TRANSVAGINAL AND LIMITED TRANSABDOMINAL FEMALE PELVIC ULTRASOUND CLINICAL HISTORY: Pelvic pain. TECHNIQUE: Sonography of the pelvis was performed by transvaginal and transabdominal (limited) techniques. Images were obtained and stored in a permanent archive and interpreted remotely.. MQ: [id number] COMPARISON: Correlation made to CT dated May 23, 2022 RESULT: Uterus: -Size: 3.7 x 5.3 x 7.1 cm -Orientation: Retroverted -Endometrial echo complex: Evaluation of the endometrium was adequate. No endometrial abnormality. The endometrial echo complex measured 0.8 cm. -Cervix: Unremarkable. -Adenomyosis assessment: There are no sonographic findings of adenomyosis. -Fibroids: There are no fibroids. Right Ovary: Surgically absent. No sonographic evidence of right adnexal mass. Left Ovary: 2.1 x 2.4 x 3.3 cm - Normal sonographic appearance with physiologic follicles and a corpus luteum. Preserved arterial and venous blood flow. Free Fluid: No abnormal free fluid is present. IMPRESSION: Normal sonographic appearance of the uterus and left ovary. Satisfactory post right oophorectomy. Green Building [employer] Designer: JUWAN Transcribe Date/Time: Jan 13 2023 3:50P Dictated by : RAND KO MD This examination was interpreted and the report reviewed and electronically signed by: RAND KO MD on Jan 13 2023 3:52PM EST [id number] [facility] KENDALL VASQUES ([id number]) 1985 F Date Time Provider Department 01/12/23 COLLEEN MAJOR OBGYWM During your visit today, we recorded the following information about you: Karolyn Vidal RN 01/12/2023 2:38 PM Signed Patient had called in asking if there were any US appointments sooner than 01/20/2023 that she was currently scheduled for . Patient states she is having increasing pelvic pain. I did find one for tomorrow so I rescheduled her. US now calling me questioning if US is to be done since patient had one 4 weeks ago on 12/17 and they pulled the order originally from a 12/09 order. . Please advise Colleen Major MD 01/12/2023 4:33 PM Signed It's fine- if pain getting worse she can have it done. Noe Francisco RN 01/13/2023 8:47 AM Signed Attempted to call u/s extension, but no answer. Added to appt notes that it is okay to proceed with u/s today. Noe Francisco RN Allergies As of Date: 01/12/2023 Noted Allergy Reaction SHELLFISH CONTAINING PRODUCTS 04/17/2021 7 - Swelling ADHESIVE 06/17/2011 2 - Rash CODEINE 09/20/2009 4 - Hives 11 - Vomiting FLAGYL (METRONIDAZOLE) 09/27/2021 14 - Other: See Comments Comments: SZ MORPHINE 05/23/2022 4 - Hives NSAIDS (NON-STEROIDAL ANTI-INFLAM*09/27/2021 14 - Other: See Comments Comments: Stage 2 kidney dx TOPAMAX (TOPIRAMATE) 09/27/2021 8 - GI Upset Date Reviewed: 12/18/2022 Reviewed by: Mallory Fontaine RN - Fully Assessed Reason for Visit: Follow Up [171] Prescriptions as of 01/13/2023 - cyclobenzaprine (FLEXERIL) 5 mg tablet Take 1 tablet by mouth three times a day as needed. - Norethin Yrn-Eth Estrad-FE (LOESTRIN FE 03/07) 1 mg-20 mcg (21)/75 mg (7) per tablet Take 1 tablet by mouth once daily. - sertraline (ZOLOFT) 100 mg tablet Take 100 mg by mouth once daily. - albuterol HFA (PROVENTIL HFA, VENTOLIN HFA) 90 mcg/actuation inhaler Inhale 1 Puff as instructed every 4 hours as needed. - promethazine (PHENERGAN) 25 mg tablet Take 25 mg by mouth every 6 hours as needed. - traZODone (DESYREL) 100 mg tablet Take 100 mg by mouth. - vit/iron fum/folic ac (-FOLIC ACID ORAL) Take by mouth. - ondansetron orally disintegrating (ZOFRAN ODT) 4 mg disintegrating tablet Take 1 tablet by mouth every 6 hours as needed for nausea/vomiting. - tamsulosin (FLOMAX) 0.4 mg Take 1 capsule by mouth daily at bedtime for 7 days. - omeprazole (PRILOSEC) 20 mg capsule Take 1 capsule by mouth once daily for 28 days. - diphenhydrAMINE (BENADRYL) 25 mg capsule Take 1 capsule by mouth every 6 hours as needed (with Compazine). - gabapentin (NEURONTIN) 100 mg capsule Take 1 capsule by mouth once daily. - tiZANidine HCl (ZANAFLEX) 4 mg capsule Take 4 mg by mouth three times daily as needed for Muscle Spasm. - levETIRAcetam (KEPPRA) 500 mg tablet Take 500 mg by mouth twice daily. - citalopram hydrobromide (CELEXA) 10 mg tablet Take 10 mg by mouth once daily. - ibuprofen (MOTRIN) 600 mg tablet Take 600 mg by mouth every 6 hours as needed. - cyclobenzaprine (FLEXERIL) 10 mg tablet Take 10 mg by mouth daily at bedtime. - diphenhydrAMINE (SLEEP AID, DIPHENHYDRAMINE,) 50 mg capsule Take 50 mg by mouth every 6 hours as needed. - levETIRAcetam (KEPPRA) 500 mg tablet Take 0.5 tablets by mouth twice daily. - rizatriptan (MAXALT) 10 mg tablet Take 1 tablet by mouth as needed for Migraine Headache (see administration instructions) (at onset of headache. May repeat after 2 hours.). - norethindrone-e.estradiol- iron (LO LOESTRIN FE) 1 mg-10 mcg(24) /10 mcg (2) ORAL Tab Take 1 tablet by mouth once daily. Problem List As Of Date 01/12/2023 Noted Resolved UTI (Lower Urinary Tract Infection) [N39.0] 09/20/2009 Calculus of Kidney [N20.0] 09/20/2009 Seizure disorder [G40.909] 09/20/2009 07/15/2011 Viral Warts due to HPV [B07.9] 09/20/2009 Transient alteration of awareness [R40.4] 04/01/2011 11/21/2015 Reactive hypoglycemia [E16.1] 06/17/2011 Hirsutism [L68.0] 06/17/2011 Irregular menses [N92.6] 06/17/2011 Right flank pain [R10.9] 04/18/2015 Lower urinary tract symptoms (LUTS) [R39.9] 04/18/2015 Breast pain [N64.4] 04/26/2015 Fever [R50.9] 03/19/2016 Urinary tract infection with hematuria [N39.0, *03/19/2016 12/25/2018 Vision loss of right eye [H54.61] 12/27/2016 Left amblyopia [H53.002] 12/27/2016 Supervision of with history of infert*11/17/2022 Vaginal bleeding in , first trimester *11/17/2022 Antepartum multigravida of advanced maternal ag*11/17/2022 History of hypertension [Z86.79] 11/17/2022 History of classical section [Z98.891] 11/17/2022 History of placental abruption [Z87.59] 11/17/2022 in prior , currently pr*11/17/2022 History of depression [Z87.59, Z86.5*11/17/2022 History of cervical LEEP biopsy affecting (more content not included)... Normal [facility] CNPNon 12-24-2022 CNPN Telephone (OBGYWM) -- KENDALL VASQUES ([id number]) 1985 F Date Time Provider Department 12/24/22 COLLEEN MAJOR During your visit today, we recorded the following information about you: Padma Franklin RN 12/24/2022 2:29 PM Signed ----- Message from Colleen Zavala MD sent at 12/24/2022 1:11 PM EST ----- Please call patient - tissue does not demonstrate retained POC - but demonstrates some changes that were a/w implantation site. Please see how she is feeling and how her bleeding is s/p in office ipas Padma Franklin RN 12/24/2022 2:32 PM Signed Patient reports bleeding has completely stopped since ipas procedure. Patient was presently in pain, and reported she had just felt a pop feeling on her lower left side with a wave of pain. Patient reports was able to move appointment with Kenneth up to February. Had just taken the flexeril and has been using heating pads. Patient will call if further concerns but not expecting a call unless we have further recommendations. VITA Chong Deidre, MD 12/24/2022 4:58 PM Signed Noted, glad she is doing better overall and appt is sooner for her. Allergies As of Date: 12/24/2022 Noted Allergy Reaction SHELLFISH CONTAINING PRODUCTS 04/17/2021 7 - Swelling ADHESIVE 06/17/2011 2 - Rash CODEINE 09/20/2009 4 - Hives 11 - Vomiting FLAGYL (METRONIDAZOLE) 09/27/2021 14 - Other: See Comments Comments: SZ MORPHINE 05/23/2022 4 - Hives NSAIDS (NON-STEROIDAL ANTI-INFLAM*09/27/2021 14 - Other: See Comments Comments: Stage 2 kidney dx TOPAMAX (TOPIRAMATE) 09/27/2021 8 - GI Upset Date Reviewed: 12/18/2022 Reviewed by: Mallory Fontaine RN - Fully Assessed Prescriptions as of 12/24/2022 - cyclobenzaprine (FLEXERIL) 5 mg tablet Take 1 tablet by mouth three times a day as needed. - Norethin Yrn-Eth Estrad-FE (LOESTRIN FE 03/07) 1 mg-20 mcg (21)/75 mg (7) per tablet Take 1 tablet by mouth once daily. - sertraline (ZOLOFT) 100 mg tablet Take 100 mg by mouth once daily. - albuterol HFA (PROVENTIL HFA, VENTOLIN HFA) 90 mcg/actuation inhaler Inhale 1 Puff as instructed every 4 hours as needed. - promethazine (PHENERGAN) 25 mg tablet Take 25 mg by mouth every 6 hours as needed. - traZODone (DESYREL) 100 mg tablet Take 100 mg by mouth. - vit/iron fum/folic ac (-FOLIC ACID ORAL) Take by mouth. - ondansetron orally disintegrating (ZOFRAN ODT) 4 mg disintegrating tablet Take 1 tablet by mouth every 6 hours as needed for nausea/vomiting. - tamsulosin (FLOMAX) 0.4 mg Take 1 capsule by mouth daily at bedtime for 7 days. - omeprazole (PRILOSEC) 20 mg capsule Take 1 capsule by mouth once daily for 28 days. - diphenhydrAMINE (BENADRYL) 25 mg capsule Take 1 capsule by mouth every 6 hours as needed (with Compazine). - gabapentin (NEURONTIN) 100 mg capsule Take 1 capsule by mouth once daily. - tiZANidine HCl (ZANAFLEX) 4 mg capsule Take 4 mg by mouth three times daily as needed for Muscle Spasm. - levETIRAcetam (KEPPRA) 500 mg tablet Take 500 mg by mouth twice daily. - citalopram hydrobromide (CELEXA) 10 mg tablet Take 10 mg by mouth once daily. - ibuprofen (MOTRIN) 600 mg tablet Take 600 mg by mouth every 6 hours as needed. - cyclobenzaprine (FLEXERIL) 10 mg tablet Take 10 mg by mouth daily at bedtime. - diphenhydrAMINE (SLEEP AID, DIPHENHYDRAMINE,) 50 mg capsule Take 50 mg by mouth every 6 hours as needed. - levETIRAcetam (KEPPRA) 500 mg tablet Take 0.5 tablets by mouth twice daily. - rizatriptan (MAXALT) 10 mg tablet Take 1 tablet by mouth as needed for Migraine Headache (see administration instructions) (at onset of headache. May repeat after 2 hours.). - norethindrone-e.estradiol- iron (LO LOESTRIN FE) 1 mg-10 mcg(24) /10 mcg (2) ORAL Tab Take 1 tablet by mouth once daily. Problem List As Of Date 12/24/2022 Noted Resolved UTI (Lower Urinary Tract Infection) [N39.0] 09/20/2009 Calculus of Kidney [N20.0] 09/20/2009 Seizure disorder [G40.909] 09/20/2009 07/15/2011 Viral Warts due to HPV [B07.9] 09/20/2009 Transient alteration of awareness [R40.4] 04/01/2011 11/21/2015 Reactive hypoglycemia [E16.1] 06/17/2011 Hirsutism [L68.0] 06/17/2011 Irregular menses [N92.6] 06/17/2011 Right flank pain [R10.9] 04/18/2015 Lower urinary tract symptoms (LUTS) [R39.9] 04/18/2015 Breast pain [N64.4] 04/26/2015 Fever [R50.9] 03/19/2016 Urinary tract infection with hematuria [N39.0, *03/19/2016 12/25/2018 Vision loss of right eye [H54.61] 12/27/2016 Left amblyopia [H53.002] 12/27/2016 Supervision of with history of infert*11/17/2022 Vaginal bleeding in , first trimester *11/17/2022 Antepartum multigravida of advanced maternal ag*11/17/2022 History of hypertension [Z86.79] 11/17/2022 History of classical section [Z98.891] 11/17/2022 History of placental a (more content not included)... Normal [facility] CNOVon 12-18-2022 CNOV Office Visit (OBGYWM ) -- KENDALL VASQUES ([id number]) 1985 F Date Time Provider Department 12/18/22 12:00 PM COLLEEN MAJOR OBGYWM During your visit today, we recorded the following information about you: Pulse Respiration Blood pressure Weight 97/minute 12/minute 106/66 71.2 kg Colleen Major MD 12/18/2022 1:06 PM Signed Pre Procedure Assessment: Kendall Vasques is a 37 year old here for an HARSHA procedure. Patient's last menstrual period was Patient's last menstrual period was 10/02/2022 (approximate). (approximate). Reason for procedure: Incomplete /Retained products Anxiolytic Checklist Has ride home? Yes-MomJess Current use of prescribed or non-prescribed opioids or benzos: Yes Medications: Patient self-administered and Provided by office:Toradol 30 mg IM given at 1113 (See MAR) Patient self administered Xanax 0.5 mg PO, Percocet 5-325 mg 2 tabs PO at 1115. Blood Type: A+ Hemoglobin: Hemoglobin Date Value Ref Range Status 12/03/2022 12.8 11.5 - 15.5 g/dL Final Rhophylac Administered:No Procedure end time: 1210 Post Procedure Assessment: Time of first post-procedure assessment: 1216 Vitals: BP 118/68 HR 88 SpO2 99 RR 12 Bleeding:Light Pain ratin Time of second post-procedure assessment: 1231 Vitals: BP 110/70 HR 76 SpO2 100 RR 14 Bleeding:Light Pain Ratin Mallory Fontaine RN UNIVERSAL PROTOCOL / SAFETY CHECKLIST Procedure to be Performed: IPAS Sign In: A Moment of CARE was completed. Personnel directly involved with the procedure wore the appropriate PPE (Personal Protective Equipment). Patient/Surrogate Stated/Verified: PATIENT VERIFIED(optional for EMERGENT procedures): Patient name, Date of , Relevant allergies, and The intended procedure Time Out Communication: Intended patient and procedure match the source documents. Consent documented and matches the intended procedure. Sign Out: SIGN OUT (optional for EMERGENT procedures): All specimen containers correctly labeled. Colleen Zavala MD Procedure note: Speculum was placed in the vagina. After prepping the cervix with betadine paracervical block was performed using 10cc of 1% lidocaine with 1:100,000 epi. Using sterile technique, the Manual Vacuum Aspiration device with size 6 cannula was inserted into the uterus and contents were evacuated. Post-procedure vital signs were obtained and stable Patient tolerated procedure well. Had Inventory Associate And Driver Mallory Butts in room performing ultrasound during procedure to ensure all POC were removed - appeared all tissue removed- retroverted. Myometrium is heterogeneous appearing. PLAN: Patient was advised to observe for signs and symptoms of infection including but not limited to fever, malodorous vaginal discharge and/or pain. Bleeding expectations were reviewed. Follow up: as needed MD Minal Miranda Lindsey RN 12/18/2022 10:54 AM Signed Information and Instructions: After a Manual Uterine Aspiration (IPAS) Procedure Bleeding Most people have some bleeding after an aspiration procedure. The amount differs for each everyone, ranging from no bleeding to moderate period-like bleeding and lasting for a few days to 2-6 weeks. It is normal to have blood clots when you stand up or use the bathroom during the first few days. It is ok to be as active as you feel ready to be. You may notice more bleeding and cramping during activity. Please call if you are completely soaking through a pad every hour for 2 hours, or passing multiple large clots or larger and larger clots. Cramping Most women have some cramping after the procedure. The amount of discomfort varies, as everyone experiences pain in a different way. Some women find that a heating pad or hot water bottle on the stomach or back helps. If you don?t have a heating pad, put some rice into a sock and heat it in the microwave, but beware, it?s hot! You may also take ibuprofen (Motrin/ Advil) or naproxen (Aleve). If you can?t take either of those medications you may use acetaminophen (Tylenol). Please call if you have severe pain or cramps that are not relieved by the pain medication. Fever Please call if your temperature is 100.4 degrees or higher for more than 2 hours. Fever can be a sign of infection, so call your doctor if you are feeling sick. You may have received a medication called misoprostol, which can cause a fever on the day of your procedure that goes away on it's own and is not concerning. symptoms You may have symptoms such as nausea, breast tenderness, or fatigue that last for a few days after the procedure. You may also notice some nipple discharge or breast swelling. If this occurs, wear a supportive bra and avoid stimulation. You may also use a cold compress. Your test m (more content not included)... Normal [facility] SURGICAL PATHOLOGYon 023 CASE REPORT Normal [facility] Comment on above: Order Comment: Speci men Type: TISSUE SPECIMENOrdering Facility: [facility] Address: [address] [place] [address] Result Comment: Surg ica Pathology Report Case: [id number] Authorizing Provider: Colleen Major, Collected: 12/18/2022 01:13 PM Ordering Location: OB/Gynecology Received: 12/18/2022 04:38 PM Pathologist: Danielle Fairbanks MD Specimen: PRODUCTS OF CONCEPTION Performed By: #### S ####[facility] LABCLIA [id number] [address] [address] [place] CLINICAL HISTORY retained POC Normal [facility] Comment on above: Order Comment: Speci men Type: TISSUE SPECIMENOrdering Facility: [facility] Address: [address] [place] [address] Performed By: #### S ####[facility] LABCLIA [id number] [place] [address] [place] FINAL DIAGNOSIS Normal [facility] Comment on above: Order Comment: Speci men Type: TISSUE SPECIMENOrdering Facility: [facility] Address: [address] [place] [address] Result Comment: A. P roducts of conception, possible retained products, manual vacuum aspiration: - Endomyometrial tissue, focally decidualized with implantation site changes and breakdown. Performed By: #### S ####[facility] LABCLIA [id number] [place] [address] [place] FINAL PERFORMING LAB Normal [facility] Comment on above: Order Comment: Speci men Type: TISSUE SPECIMENOrdering Facility: [facility] Address: [address] [place] [address] Result Comment: Diag nostic interpretation performed at [facility], [address] [id number] CLIA# [id number] Environmental Construction Engineer: Matthieu Drew M.D. Performed By: #### S ####[facility] LABCLIA [id number] [place] [id number] [place] GROSS DESCRIPTION Normal [facility] Comment on above: Order Comment: Speci men Type: TISSUE SPECIMENOrdering Facility: [facility] Address: [address], [place] [address] Result Comment: A. P RODUCTS OF CONCEPTION Received in formalin labeled as products of conception, are multiple pieces of khan-falk soft tissue aggregating to 2.5 x 1.5 x 0.5 cm. Definitive chorionic villi are not appreciated. Vesicles are not present. The entire specimen is submitted in A1. [place] December 19, 2022 9:43 AM Gross examination performed at [facility], [address] [place] [address] CLIA# [id number] Performed By: #### S ####[facility] LABCLIA [id number] [facility] [id number] [address] [place] PELVIC US WHIon 12-17-2022 [facility] CNPNon 12-16-2022 CNPN Telephone (OBGYWM) -- KENDALL VASQUES ([id number]) 1985 F Date Time Provider Department 12/16/22 COLLEEN MAJOR OBGYWM During your visit today, we recorded the following information about you: Colleen Major MD 12/16/2022 1:19 PM Signed Please call patient- I reviewed the ER notes- Her HCG is negative (which is c/w that there are no retained POC) and the ultrasound shows that the left cyst has resolved. The Endometrium is normal- 7mm. All of this is very reassuring. It's possible she had some increased pain if the cyst had ruptured. I hope she is feeling better today MD Young Miranda Teresa RN 12/16/2022 2:15 PM Signed I called patient. Bleeding has slowed down immensely. Pain is still sharp and on left side. She rates it is a 9 out of 10 intermittently and is the same as it has been at ER visit. Trying not to take pain medication-Percocet but it does help when she takes it. Taking Tylenol 500 q6 hours. Using a heating pad with relief. Denies any foul order. Having chills and nausea. Denies any fever. Denies dysuria. Patient wants to consider hysterectomy in future due to endometriosis. Has follow up appt on . This doesn't feel right to me but noone can find anything I advised patient to go to ED if pain increases, the development of a fever or PRN problems. Dr Zavala out of the office this afternoon. Please review in her absence Colleen Major MD 12/16/2022 2:46 PM Signed Please see if LM can scan her tomorrow or today - if her pain is still that severe. I had LM scan her with me the other day and the cyst was still there. That is the only thing I can think that is the source of her pain. The ER does not Document cyst on their report- I can't see images from here. Karolyn Vidal RN 12/16/2022 3:13 PM Signed I scheduled patient for tomorrow. Patient aware to go to ED if increasing pain, development of fever or PRN Allergies As of Date: 12/16/2022 Noted Allergy Reaction SHELLFISH CONTAINING PRODUCTS 04/17/2021 7 - Swelling ADHESIVE 06/17/2011 2 - Rash CODEINE 09/20/2009 4 - Hives 11 - Vomiting FLAGYL (METRONIDAZOLE) 09/27/2021 14 - Other: See Comments Comments: SZ MORPHINE 05/23/2022 4 - Hives NSAIDS (NON-STEROIDAL ANTI-INFLAM*09/27/2021 14 - Other: See Comments Comments: Stage 2 kidney dx TOPAMAX (TOPIRAMATE) 09/27/2021 8 - GI Upset Date Reviewed: 12/09/2022 Reviewed by: Lyndsey Mojica Ma - Fully Assessed Primary Visit Diagnosis:Pelvic pain in female [R10.2] Other Visit Diagnosis:History of miscarriage [Z87.59] Prescriptions as of 12/16/2022 - cyclobenzaprine (FLEXERIL) 5 mg tablet Take 1 tablet by mouth three times a day as needed. - Norethin Yrn-Eth Estrad-FE (LOESTRIN FE 03/07) 1 mg-20 mcg (21)/75 mg (7) per tablet Take 1 tablet by mouth once daily. - sertraline (ZOLOFT) 100 mg tablet Take 100 mg by mouth once daily. - albuterol HFA (PROVENTIL HFA, VENTOLIN HFA) 90 mcg/actuation inhaler Inhale 1 Puff as instructed every 4 hours as needed. - promethazine (PHENERGAN) 25 mg tablet Take 25 mg by mouth every 6 hours as needed. - traZODone (DESYREL) 100 mg tablet Take 100 mg by mouth. - vit/iron fum/folic ac (-FOLIC ACID ORAL) Take by mouth. - ondansetron orally disintegrating (ZOFRAN ODT) 4 mg disintegrating tablet Take 1 tablet by mouth every 6 hours as needed for nausea/vomiting. - tamsulosin (FLOMAX) 0.4 mg Take 1 capsule by mouth daily at bedtime for 7 days. - omeprazole (PRILOSEC) 20 mg capsule Take 1 capsule by mouth once daily for 28 days. - diphenhydrAMINE (BENADRYL) 25 mg capsule Take 1 capsule by mouth every 6 hours as needed (with Compazine). - gabapentin (NEURONTIN) 100 mg capsule Take 1 capsule by mouth once daily. - tiZANidine HCl (ZANAFLEX) 4 mg capsule Take 4 mg by mouth three times daily as needed for Muscle Spasm. - levETIRAcetam (KEPPRA) 500 mg tablet Take 500 mg by mouth twice daily. - citalopram hydrobromide (CELEXA) 10 mg tablet Take 10 mg by mouth once daily. - ibuprofen (MOTRIN) 600 mg tablet Take 600 mg by mouth every 6 hours as needed. - cyclobenzaprine (FLEXERIL) 10 mg tablet Take 10 mg by mouth daily at bedtime. - diphenhydrAMINE (SLEEP AID, DIPHENHYDRAMINE,) 50 mg capsule Take 50 mg by mouth every 6 hours as needed. - levETIRAcetam (KEPPRA) 500 mg tablet Take 0.5 tablets by mouth twice daily. - rizatriptan (MAXALT) 10 mg tablet Take 1 tablet by mouth as needed for Migraine Headache (see administration instructions) (at onset of headache. May repeat after 2 hours.). - norethindrone-e.estradiol- iron (LO LOESTRIN FE) 1 mg-10 mcg(24) /10 mcg (2) ORAL Tab Take 1 tablet by mouth once daily. Problem List As Of Date 12/16/2022 Noted Resolved UTI (Lower Urinary Tract Infection) [N39.0] 09/20/2009 Calculus of Kidney [N20.0] 09/20/2009 Seizur (more content not included)... Normal [facility] Absolute lymphocyte countOrd ered By: Juan Antonio Prasad on 12-15-2022 Lymphocytes Auto (Unsp spec) [#/Vol] 1.80 10*3/uL 0.83-4.51 [facility] Basophil percentageOrdered B y: Juan Antonio Prasad on 12-15-2022 Basophil percentage 0 SEEN /hpf 0-5 [facility] Basophils/100 WBC (Bld) 1.0 % 0-1 [facility] Chloride [Moles/Vol] 109 mmol/L 98-107 [facility] Eosinophils/100 WBC (Bld) 2.0 % 0-5 [facility] Glucose [Mass/Vol] 92 mg/dL 74-106 [facility] Neutrophils (Bld) [#/Vol] 2.7 10*3/uL 2.0-7.7 [facility] Neutrophils/100 WBC (Bld) 55.2 % 47-70 [facility] Potassium [Moles/Vol] 4.1 mmol/L 3.5-5.1 [facility] Comment on above: Slight Hemolysis, Re sult may be falsely increased. Sodium [Moles/Vol] 141 mmol/L 136-145 [facility] WBC (Bld) [#/Vol] 4.9 10*3/uL 4.4-11.0 [facility] Bilirubin Test strip Ql (U)O rdered By: Juan Antonio Prasad on 12-15-2022 Bilirubin Ql (U) Negative Negative [facility] Blood erythrocytes count (nu mber/volume)Ordered By: Juan Antonio Prasad on 12-15-2022 RBC (Bld) [#/Vol] 4.17 10*6/uL 4.2-5.[address] [facility] Blood hemoglobin measurement (mass/volume)Ordered By: Juan Antonio Prasad on 12-15-2022 Hemoglobin (Bld) [Mass/Vol] 12.5 g/dL 12.0-15.0 [facility] Blood lymphocytes/100 leukoc ytesOrdered By: Juan Antonio Prasad on 12-15-2022 Lymphocytes/100 WBC (Bld) 36.5 % 19-41 [facility] Blood monocytes/100 leukocyt esOrdered By: Juan Antonio Prasad on 12-15-2022 Monocytes/100 WBC (Bld) 4.9 % 0-10 [facility] Blood platelet mean volumeOr dered By: Juan Antonio Prasad on 12-15-2022 Platelet mean volume (Bld) [Entitic vol] 10.3 fL 6.2-12.0 [facility] CNPNon 12-15-2022 CNPN Telephone (OBGYWM) -- KENDALL VASQUES ([id number]) 1985 F Date Time Provider Department 12/15/22 COLLEEN MAJOR OBGYWNorma During your visit today, we recorded the following information about you: Cassy Meneses RN 12/15/2022 8:16 AM Signed Patient called with c/o heavy bleeding and pain. Unable to sleep last night. Pain was a 9 out of 10. States when she wiped she found what looked like a piece of tissue on the toilet paper. Patient feeling very anxious. Spoke with DM. Offered patient an official US in Radiology since [place] tech unable to add patient in our department. Also, a STAT quant. Patient reported that she is also having SOB. Given this information, advised patient go to ER. Patient voiced agreement. DM aware. Cassy Meneses RN Allergies As of Date: 12/15/2022 Noted Allergy Reaction SHELLFISH CONTAINING PRODUCTS 04/17/2021 7 - Swelling ADHESIVE 06/17/2011 2 - Rash CODEINE 09/20/2009 4 - Hives 11 - Vomiting FLAGYL (METRONIDAZOLE) 09/27/2021 14 - Other: See Comments Comments: SZ MORPHINE 05/23/2022 4 - Hives NSAIDS (NON-STEROIDAL ANTI-INFLAM*09/27/2021 14 - Other: See Comments Comments: Stage 2 kidney dx TOPAMAX (TOPIRAMATE) 09/27/2021 8 - GI Upset Date Reviewed: 12/09/2022 Reviewed by: Lyndsey Mojica Ma - Fully Assessed Reason for Visit: Heavy Bleeding, Pain [Other] Prescriptions as of 12/15/2022 - cyclobenzaprine (FLEXERIL) 5 mg tablet Take 1 tablet by mouth three times a day as needed. - Norethin Yrn-Eth Estrad-FE (LOESTRIN FE 03/07) 1 mg-20 mcg (21)/75 mg (7) per tablet Take 1 tablet by mouth once daily. - sertraline (ZOLOFT) 100 mg tablet Take 100 mg by mouth once daily. - albuterol HFA (PROVENTIL HFA, VENTOLIN HFA) 90 mcg/actuation inhaler Inhale 1 Puff as instructed every 4 hours as needed. - promethazine (PHENERGAN) 25 mg tablet Take 25 mg by mouth every 6 hours as needed. - traZODone (DESYREL) 100 mg tablet Take 100 mg by mouth. - vit/iron fum/folic ac (-FOLIC ACID ORAL) Take by mouth. - ondansetron orally disintegrating (ZOFRAN ODT) 4 mg disintegrating tablet Take 1 tablet by mouth every 6 hours as needed for nausea/vomiting. - tamsulosin (FLOMAX) 0.4 mg Take 1 capsule by mouth daily at bedtime for 7 days. - omeprazole (PRILOSEC) 20 mg capsule Take 1 capsule by mouth once daily for 28 days. - diphenhydrAMINE (BENADRYL) 25 mg capsule Take 1 capsule by mouth every 6 hours as needed (with Compazine). - gabapentin (NEURONTIN) 100 mg capsule Take 1 capsule by mouth once daily. - tiZANidine HCl (ZANAFLEX) 4 mg capsule Take 4 mg by mouth three times daily as needed for Muscle Spasm. - levETIRAcetam (KEPPRA) 500 mg tablet Take 500 mg by mouth twice daily. - citalopram hydrobromide (CELEXA) 10 mg tablet Take 10 mg by mouth once daily. - ibuprofen (MOTRIN) 600 mg tablet Take 600 mg by mouth every 6 hours as needed. - cyclobenzaprine (FLEXERIL) 10 mg tablet Take 10 mg by mouth daily at bedtime. - diphenhydrAMINE (SLEEP AID, DIPHENHYDRAMINE,) 50 mg capsule Take 50 mg by mouth every 6 hours as needed. - levETIRAcetam (KEPPRA) 500 mg tablet Take 0.5 tablets by mouth twice daily. - rizatriptan (MAXALT) 10 mg tablet Take 1 tablet by mouth as needed for Migraine Headache (see administration instructions) (at onset of headache. May repeat after 2 hours.). - norethindrone-e.estradiol- iron (LO LOESTRIN FE) 1 mg-10 mcg(24) /10 mcg (2) ORAL Tab Take 1 tablet by mouth once daily. Problem List As Of Date 12/15/2022 Noted Resolved UTI (Lower Urinary Tract Infection) [N39.0] 09/20/2009 Calculus of Kidney [N20.0] 09/20/2009 Seizure disorder [G40.909] 09/20/2009 07/15/2011 Viral Warts due to HPV [B07.9] 09/20/2009 Transient alteration of awareness [R40.4] 04/01/2011 11/21/2015 Reactive hypoglycemia [E16.1] 06/17/2011 Hirsutism [L68.0] 06/17/2011 Irregular menses [N92.6] 06/17/2011 Right flank pain [R10.9] 04/18/2015 Lower urinary tract symptoms (LUTS) [R39.9] 04/18/2015 Breast pain [N64.4] 04/26/2015 Fever [R50.9] 03/19/2016 Urinary tract infection with hematuria [N39.0, *03/19/2016 12/25/2018 Vision loss of right eye [H54.61] 12/27/2016 Left amblyopia [H53.002] 12/27/2016 Supervision of with history of infert*11/17/2022 Vaginal bleeding in , first trimester *11/17/2022 Antepartum multigravida of advanced maternal ag*11/17/2022 History of hypertension [Z86.79] 11/17/2022 History of classical section [Z98.891] 11/17/2022 History of placental abruption [Z87.59] 11/17/2022 in prior , currently pr*11/17/2022 History of depression [Z87.59, Z86.5*11/17/2022 History of cervical LEEP biopsy affecting care *11/17/2022 Nausea and vomiting during [O21.9] 11/17/2022 History of depression/anxiety/insomni a [Z86.59] 11/17/2022 History of psychogeni (more content not included)... Normal [facility] Determination of erythrocyte mean corpuscular volume (MCV)Ordered By: Juan Antonio Prasad on 12-15-2022 MCV (RBC) [Entitic vol] 96.4 fL 81-99 [facility] Hematocrit Auto (Bld) [Volum e fraction]Ordered By: Juan Antonio Prasad on 12-15-2022 Hematocrit (Bld) [Volume fraction] 40.2 % 37-47 [facility] INR in Blood by Coagulation assayOrdered By: Juan Antonio Prasad on 12-15-2022 INR Coag (Bld) [Relative time] 1.0 {INR} [facility] Ketones Test strip Ql (U)Ord ered By: Juan Antonio Prasad on 12-15-2022 Ketones Ql (U) Negative Negative [facility] Laboratory - Chemistry and C hemistry - challengeOrdered By: Juan Antonio Prasad on 12-15-2022 CO2 [Moles/Vol] 25.0 mmol/L 21.0-32.0 [facility] Urea nitrogen/Creatinine [Mass ratio] 17.1 mg/mg 12-05 [facility] Laboratory - CoagulationOrde red By: Juan Antonio Prasad on 12-15-2022 aPTT Coag (Bld) [Time] 23.7 s 24.1-36.2 [facility] PT Coag (PPP) [Time] 13.1 s 11.7-14.9 [facility] Laboratory - Hematology and Cell countsOrdered By: Juan Antonio Prasad on 12-15-2022 Erythrocyte distribution width (RBC) [Entitic vol] 46.5 fL 35.1-43.9 [facility] Erythrocyte distribution width (RBC) [Ratio] 13.1 % 11.6-14.6 [facility] Immature granulocytes/100 WBC (Bld) 0.400 % 0.0-0.9 [facility] Comment on above: IG% - Immature Granu locytes (promyelocytes, myelocytes and metamyelocytes) > 1% indicates that a LEFT SHIFT is Present. MCH (RBC) [Entitic mass] 30.0 pg 27.0-32.0 [facility] Nucleated RBC/100 WBC (Bld) [Ratio] 0 % 0-5 [facility] MCHC Auto (RBC) [Mass/Vol]Or dered By: Juan Antonio Prasad on 12-15-2022 MCHC (RBC) [Mass/Vol] 31.1 g/dL 32-36 [facility] Mucus LM Ql (Urine sed)Order ed By: Juan Antonio Prasad on 12-15-2022 Mucus Ql (Urine sed) 0 SEEN /hpf [facility] Nitrite Test strip Ql (U)Ord ered By: Juan Antonio Prasad on 12-15-2022 Nitrite Ql (U) Negative Negative [facility] No Panel InformationOrdered By: Juan Antonio Prasad on 12-15-2022 Estimated Creatinine Clearance Calc 71.45 ml/min [facility] Estimated GFR (MDRD) Amer 87 mL/min >60 [facility] Comment on above: GFR Calc Estimated GFR (MDRD) Non-Af Amer 72 mL/min >60 [facility] Comment on above: Non- GFR Calc Platelets bldOrdered By: Courtney Prasad on 12-15-2022 Platelets (Bld) [#/Vol] 250 10*3/uL 150-450 [facility] Protein Test strip Ql (U)Ord ered By: Juan Antonio Prasad on 12-15-2022 Protein Ql (U) 15 mg/dl Negative [facility] Serum or plasma calcium len urement (mass/volume)Ordered By: Juan Antonio Prasad on 12-15-2022 Calcium [Mass/Vol] 9.2 mg/dL 8.5-10.1 [facility] Serum or plasma choriogonado tropin detectionOrdered By: Juan Antonio Prasad on 12-15-2022 HCG ( test) Ql 94 mIU/mL <4 [facility] Comment on above: hCG levels with Gest ational AgeGestational Age hCG mIU/mL (IU/L)0.2 - 1 week 5 - 501-2 weeks 50 - 5002-3 weeks 100 - 21155-4 weeks 500 - 272158-6 weeks 1000 - 924034-5 weeks 94011 - 100,0006-8 weeks 93262 - 200,0002-3 months 02461 - 100,000 Serum or plasma creatinine m easurement (mass/volume)Ordered By: Juan Antonio Prasad on 12-15-2022 Creatinine [Mass/Vol] 0.94 mg/dL 0.55-1.02 [facility] Comment on above: The validity of the calculated GFR & GFRAA in patients over 70 years has not been determined. Clinical correlation is essential. Serum or plasma urea nitroge n measurement (mass/volume)Ordered By: Juan Antonio Prasad on 12-15-2022 Urea nitrogen [Mass/Vol] 16 mg/dL 7-18 [facility] Squamous epithelial cells de tection in urine sediment by light microscopyOrdered By: Juan Antonio Prasad on 12-15-2022 Epithelial cells.squamous LM Ql (Urine sed) 0-5 SEEN /hpf 5-10 [facility] Thin prep Papanicolaou smear with manual screeningOrdered By: Juan Antonio Prasad on 12-15-2022 Thin prep Papanicolaou smear with manual screening 7 5-15 [facility] Urine blood detectionOrdered By: Juan Antonio Prasad on 12-15-2022 RBC Ql (U) 150 /ul Negative [facility] RBC Ql (U) 10-25 SEEN /hpf 0-5 [facility] Urine clarityOrdered By: Courtney Prasad on 12-15-2022 Clarity (U) Sl. Cloudy Clear [facility] Urine color determinationOrd ered By: Juan Antonio Prasad on 12-15-2022 Color (U) Yellow Yellow [facility] Urine glucose detectionOrder ed By: Juan Antonio Prasad on 12-15-2022 Glucose Ql (U) Normal mg/dl Normal [facility] Urine leukocyte esterase det ection by dipstickOrdered By: Juan Antonio Prasad on 12-15-2022 Leukocyte esterase Test strip Ql (U) Negative Negative [facility] Urine pHOrdered By: Juan Antonio singh on 12-15-2022 pH (U) 6.5 [pH] 5.0 - 8.0 [facility] Urine sediment bacteria coun t by microscopy (number/high power field)Ordered By: Juan Antonio Prasad on 12-15-2022 Bacteria LM.HPF (Urine sed) [#/Area] 0 /[HPF] None Seen [facility] Urine specific gravity measu rementOrdered By: Juan Antonio Prasad on 12-15-2022 Specific gravity (U) [Rel density] 1.010 1.002-1.03 0 [facility] Urobilinogen Auto test strip Ql (U)Ordered By: Juan Antonio Prasad on 12-15-2022 Urobilinogen Ql (U) Normal mg/dl Normal [facility] CNOVon 12-09-2022 CNOV Office Visit (OBGYWM ) -- KENDALL VASQUES ([id number]) 1985 F Date Time Provider Department 12/09/22 9:50 AM COLLEEN MAJOR OBRAPHAELWNorma During your visit today, we recorded the following information about you: Blood pressure Weight 120/72 70.8 kg Colleen Major MD 12/09/2022 10:[address]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 Kendall Vasques is a 37 year old female who presents for follow-up stating status post Cytotec for possible retained products. Patient states that the Cytotec on and on Thursday past some clots along with tissue. Patient reports no further bleeding. Patient reports no fevers. Patient states she is in the left lower quadrant from the ovarian cyst pain radiates to her back. Getting worse rates that sometimes he does not denies any nausea or vomiting. Patient states she has used Percocet on occasion but does not want to mask the pain patient offers no other concerns pain. Has started the oral contraceptive pills. Does not desire is aware of anora testing results of normal male fetus. 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 History Comments: Sexual Activity: Yes; Male Contraception: Pill PAST MEDICAL HISTORY Diagnosis Date Abnormal Pap smear of cervix +HPV Anemia Asthma Breast cyst, left 2018 Chlamydia Depression/anxiety Herpes simplex virus (HSV) infection Hx of ovarian cyst Hx: UTI (urinary tract infection) Hypertension Hypoglycemia 5 years ago Infectious mononucleosis Infertility, female Insomnia PID (acute pelvic inflammatory disease) 2015 Placental abruption depression Recurrent UTI Renal calculi recurrent kidney stones Seizure disorder (HCC) psychogenic Sickle cell anemia (HCC) Syncope and collapse with pseudo-seizures Thyroid disease PAST SURGICAL HISTORY Procedure Laterality Date BREAST CYST ASPIRATION - ADDTL LESION 2018 Dr Corona-Drifting CERVIX UTERI CONIZA LP ELCTRO EXCI 2008 SECTION HX classical incision CT ABDOMEN 09/10/[address] [facility] [address] BRAIN 06/19/2005 [facility] DANDC, DIAG AND/OR THERAPEUTIC 11/27/2022 Suction DANDC for missed AB L'SCOPE DX W/WO BRUSHINGS/WASHINGS 03/17/2022 Dr Myers-pelvic pain-endometriosis ruled out L'SCOPE DX W/WO BRUSHINGS/WASHINGS 03/12/2020 lysis of adhesions-Dr Myers LITHOTRIPSY XTRCORP SHOCK WAVE 04/16/2006 Lithotripsy Right kidney OVARY SURGERY HX 04/10/2013 Excision of right fallopian tube and ovary PAST SURGICAL HISTORY OF 02/16/2003 right ear cartilage repair TONSILLECTOMY AND ADENOIDECTOMY HX 12/17/2012 FAMILY HISTORY Problem Relation Age of Onset Stroke Father No Known Problems Sister Hypertension Maternal Grandmother Blood Clots Maternal Grandmother other (Hypoglycemia) Maternal Grandfather Heart Maternal Grandfather Diabetes Maternal Grandfather Breast Cancer Paternal Grandmother Heart Attack Paternal Grandfather other (epilepsy) Half-sister Social History Tobacco Use Smoking status: Never Smokeless tobacco: Never Vaping Use Vaping Use: Never used Substance Use Topics Alcohol use: No Drug use: No Current Outpatient Medications Medication Sig Norethin Yrn-Eth Estrad-FE (LOESTRIN FE 03/07) 1 mg-20 mcg (21)/75 mg (7) per tablet Take 1 tablet by mouth once daily. sertraline (ZOLOFT) 100 mg tablet Take 100 mg by mouth once daily. albuterol HFA (PROVENTIL HFA, VENTOLIN HFA) 90 mcg/actuation inhaler Inhale 1 Puff as instructed every 4 hours as needed. promethazine (PHENERGAN) 25 mg tablet Take 25 mg by mouth every 6 hours as needed. traZODone (DESYREL) 100 mg tablet Take 100 mg by mouth. vit/iron fum/folic ac (-FOLIC ACID ORAL) Take by mouth. ondansetron orally disintegrating (ZOFRAN ODT) 4 mg disintegrating tablet Take 1 tablet by mouth every 6 hours as needed for nausea/vomiting. tamsulosin (FLOMAX) 0.4 mg Take 1 capsule by mouth daily at bedtime for 7 days. omeprazole (PRILOSEC) 20 mg capsule Take 1 capsule by mouth once daily for 28 days. diphenhydrAMINE (BENADRYL) 25 mg capsule Take 1 capsule by mouth every 6 hours as needed (with Compazine). gabapentin (NEURONTIN) 100 mg capsule Take 1 capsule by mouth once daily. tiZANidine HCl (ZANAFLEX) 4 mg capsule Take 4 mg by mouth three times daily as needed for Muscle Spasm. levETIRAcetam (KEPPRA) 500 mg tablet Take 500 mg by mouth twice daily. citalopram hydrobromide (CELEXA) 10 mg tablet Take 10 mg by mouth once daily. ibuprofen (MOTRIN) 600 mg tablet Take 600 mg by mouth every 6 hours as needed. cyclobenzaprine (FLEXERIL) 10 mg tablet Take 10 mg by mouth daily at bedtime. diphe (more content not included)... Normal [facility] 12-08-2022 [facility] Telephone (OBGYWM) -- KENDALL VASQUES ([id number]) 1985 F Date Time Provider Department 12/08/22 COLLEEN MAJOR OBGYWM During your visit today, we recorded the following information about you: Colleen Major MD 12/08/2022 12:00 PM Signed Please notify patient that anora testing was c/w Normal Male fetus. How is she feeling ? Last week gave cytotec s/p DANDC for some ? Clots vs small retained POC. She has follow up this week. Padma Franklin RN 12/08/2022 12:29 PM Signed Patient notified. Patient reports taking cytotec and having significant increase in cramping/bleeding afterward but no improvement in pain or bleeding since before taking it. Rating pain 8/10 mostly on left side, feels as if it is where her cyst is and states it feels like it is growing. Pain increases with need for BM. Has taken the oxycodone twice and it is effective but she is trying not to take it to not mask symptoms. She is changing her pad every 3-4 hours. Bleeding precautions given and patient verbalized understanding. Denies dizziness, chest pain or sob. VITA Chong Deidre, MD 12/08/2022 12:32 PM Signed Noted- will follow her up tomorrow as scheduled. Allergies As of Date: 12/08/2022 Noted Allergy Reaction SHELLFISH CONTAINING PRODUCTS 04/17/2021 7 - Swelling ADHESIVE 06/17/2011 2 - Rash CODEINE 09/20/2009 4 - Hives 11 - Vomiting FLAGYL (METRONIDAZOLE) 09/27/2021 14 - Other: See Comments Comments: SZ MORPHINE 05/23/2022 4 - Hives NSAIDS (NON-STEROIDAL ANTI-INFLAM*09/27/2021 14 - Other: See Comments Comments: Stage 2 kidney dx TOPAMAX (TOPIRAMATE) 09/27/2021 8 - GI Upset Date Reviewed: 12/03/2022 Reviewed by: Lyndsey Mojica Ma - Fully Assessed Reason for Visit: Results [95] Prescriptions as of 12/08/2022 - Norethin Yrn-Eth Estrad-FE (LOESTRIN FE 03/07) 1 mg-20 mcg (21)/75 mg (7) per tablet Take 1 tablet by mouth once daily. - sertraline (ZOLOFT) 100 mg tablet Take 100 mg by mouth once daily. - albuterol HFA (PROVENTIL HFA, VENTOLIN HFA) 90 mcg/actuation inhaler Inhale 1 Puff as instructed every 4 hours as needed. - promethazine (PHENERGAN) 25 mg tablet Take 25 mg by mouth every 6 hours as needed. - traZODone (DESYREL) 100 mg tablet Take 100 mg by mouth. - vit/iron fum/folic ac (-FOLIC ACID ORAL) Take by mouth. - ondansetron orally disintegrating (ZOFRAN ODT) 4 mg disintegrating tablet Take 1 tablet by mouth every 6 hours as needed for nausea/vomiting. - tamsulosin (FLOMAX) 0.4 mg Take 1 capsule by mouth daily at bedtime for 7 days. - omeprazole (PRILOSEC) 20 mg capsule Take 1 capsule by mouth once daily for 28 days. - diphenhydrAMINE (BENADRYL) 25 mg capsule Take 1 capsule by mouth every 6 hours as needed (with Compazine). - gabapentin (NEURONTIN) 100 mg capsule Take 1 capsule by mouth once daily. - tiZANidine HCl (ZANAFLEX) 4 mg capsule Take 4 mg by mouth three times daily as needed for Muscle Spasm. - levETIRAcetam (KEPPRA) 500 mg tablet Take 500 mg by mouth twice daily. - citalopram hydrobromide (CELEXA) 10 mg tablet Take 10 mg by mouth once daily. - ibuprofen (MOTRIN) 600 mg tablet Take 600 mg by mouth every 6 hours as needed. - cyclobenzaprine (FLEXERIL) 10 mg tablet Take 10 mg by mouth daily at bedtime. - diphenhydrAMINE (SLEEP AID, DIPHENHYDRAMINE,) 50 mg capsule Take 50 mg by mouth every 6 hours as needed. - levETIRAcetam (KEPPRA) 500 mg tablet Take 0.5 tablets by mouth twice daily. - rizatriptan (MAXALT) 10 mg tablet Take 1 tablet by mouth as needed for Migraine Headache (see administration instructions) (at onset of headache. May repeat after 2 hours.). - norethindrone-e.estradiol- iron (LO LOESTRIN FE) 1 mg-10 mcg(24) /10 mcg (2) ORAL Tab Take 1 tablet by mouth once daily. Problem List As Of Date 12/08/2022 Noted Resolved UTI (Lower Urinary Tract Infection) [N39.0] 09/20/2009 Calculus of Kidney [N20.0] 09/20/2009 Seizure disorder [G40.909] 09/20/2009 07/15/2011 Viral Warts due to HPV [B07.9] 09/20/2009 Transient alteration of awareness [R40.4] 04/01/2011 11/21/2015 Reactive hypoglycemia [E16.1] 06/17/2011 Hirsutism [L68.0] 06/17/2011 Irregular menses [N92.6] 06/17/2011 Right flank pain [R10.9] 04/18/2015 Lower urinary tract symptoms (LUTS) [R39.9] 04/18/2015 Breast pain [N64.4] 04/26/2015 Fever [R50.9] 03/19/2016 Urinary tract infection with hematuria [N39.0, *03/19/2016 12/25/2018 Vision loss of right eye [H54.61] 12/27/2016 Left amblyopia [H53.002] 12/27/2016 Supervision of with history of infert*11/17/2022 Vaginal bleeding in , first trimester *11/17/2022 Antepartum multigravida of advanced maternal ag*11/17/2022 History of hypertension [Z86.79] 11/17/2022 History of classical section [Z98.891] 11/17/2022 History of placental abr (more content not included)... Normal [facility] CBC panel Auto (Bld)on 12-03 Erythrocyte distribution width (RBC) [Ratio] 13.2 % 11.5 - 15.0 % [facility] Hematocrit (Bld) [Volume fraction] 41.0 % 36.0 - 46.0 % [facility] Hemoglobin (Bld) [Mass/Vol] 12.8 g/dL 11.5 - 15.5 g/dL [facility] MCH (RBC) [Entitic mass] 29.9 pg 26.0 - 34.0 pg [facility] MCHC (RBC) [Mass/Vol] 31.2 g/dL 30.5 - 36.0 g/dL [facility] MCV (RBC) [Entitic vol] 95.8 fL 80.0 - 100.0 fL [facility] Nucleated RBC (Bld) [#/Vol] <0.01 k/uL [facility] Platelet mean volume (Bld) [Entitic vol] 10.1 fL 9.0 - 12.7 fL [facility] Platelets (Bld) [#/Vol] 207 10*3/uL 150 - 400 k/uL [facility] RBC (Bld) [#/Vol] 4.28 10*6/uL 3.90 - 5.20 m/uL [facility] WBC (Bld) [#/Vol] 7.16 10*3/uL 3.70 - 11.00 k/uL [facility] Erythrocyte distribution width (RBC) [Ratio] 13.2 % Normal 11.5-15.0 [facility] Comment on above: Order Comment: Speci men Type: BLOOD SPECIMENOrdering Facility: [facility] Address: [address] [place] [address] Performed By: #### 5 8410-2 ####[facility] [id number] [place] [address] [place] Hematocrit (Bld) [Volume fraction] 41.0 % Normal 36.0-46.0 [facility] Comment on above: Order Comment: Speci men Type: BLOOD SPECIMENOrdering Facility: [facility] Address: [address] [place] [address] Performed By: #### 5 8410-2 ####[facility] [id number] [place] [address] [place] Hemoglobin (Bld) [Mass/Vol] 12.8 g/dL Normal 11.5-15.5 [facility] Comment on above: Order Comment: Speci men Type: BLOOD SPECIMENOrdering Facility: [facility] Address: [address] [place] [address] Performed By: #### 5 8410-2 ####[facility] DAMIANTALLAHASSEETREE [id number] [address] MCH (RBC) [Entitic mass] 29.9 pg Normal 26.0-34.0 [facility] Comment on above: Order Comment: Speci men Type: BLOOD SPECIMENOrdering Facility: [facility] Address: [address] [place] [address] Performed By: #### 5 8410-2 ####[facility] [id number] [address] [place] MCHC (RBC) [Mass/Vol] 31.2 g/dL Normal 30.5-36.0 [facility] Comment on above: Order Comment: Speci men Type: BLOOD SPECIMENOrdering Facility: [facility] Address: [address] [place] [address] Performed By: #### 5 8410-2 ####[facility] [id number] [address] [place] MCV (RBC) [Entitic vol] 95.8 fL Normal 80.0-100.0 [facility] Comment on above: Order Comment: Speci men Type: BLOOD SPECIMENOrdering Facility: [facility] Address: [address] [place] [address] Performed By: #### 5 8410-2 ####[facility] [id number] [address] [place] Nucleated RBC (Bld) [#/Vol] 10*3/uL Normal <0.01 [facility] Comment on above: Order Comment: Speci men Type: BLOOD SPECIMENOrdering Facility: [facility] Address: [address] [place] [address] Performed By: #### 5 8410-2 ####[facility] DAMIANWNCLIA [id number] [place] [address] [place] Platelet mean volume (Bld) [Entitic vol] 10.1 fL Normal 9.0-12.7 [facility] Comment on above: Order Comment: Speci men Type: BLOOD SPECIMENOrdering Facility: [facility] Address: [address] [place] [address] Performed By: #### 5 8410-2 ####[facility] [id number] [place] [address] [place] Platelets (Bld) [#/Vol] 207 10*3/uL Normal 150-400 [facility] Comment on above: Order Comment: Speci men Type: BLOOD SPECIMENOrdering Facility: [facility] Address: [address] [place] [address] Performed By: #### 5 8410-2 ####[facility] [id number] [place] [address] [place] RBC (Bld) [#/Vol] 4.28 10*6/uL Normal 3.90-5.[address] [facility] Comment on above: Order Comment: Speci men Type: BLOOD SPECIMENOrdering Facility: [facility] Address: [address] [place] [address] Performed By: #### 5 8410-2 ####[facility] [id number] [place] [address] [place] WBC (Bld) [#/Vol] 7.16 10*3/uL Normal 3.70-11.[address] [facility] Comment on above: Order Comment: Speci men Type: BLOOD SPECIMENOrdering Facility: [facility] Address: [address] [place] [address] Performed By: #### 5 8410-2 ####[facility] [id number] [place] [address] [place] CNOVon 12-03-2022 CNOV Office Visit (OBGYWM ) -- KENDALL VASQUES ([id number]) 1985 F Date Time Provider Department 12/03/22 11:20 AM COLLEEN MAJOR OBGYWM During your visit today, we recorded the following information about you: Blood pressure Weight 114/78 69.9 kg Colleen Major MD 12/03/2022 1:[address] [employer]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 Kendall Vasques is a 37 year old female who presents for follow-up after suction DANDC performed 1 week ago. Patient states approximately 3 days ago started having heavier bleeding where she could saturate through a pad in approximately 2 hours. She is has noticed some tissue at times. She denies any fevers. She also states that she is having some left lower quadrant pain. Denies any dysuria, body aches or chills. History of a 4 cm simple ovarian cyst on the left. Patient denies any chest pain, shortness of breath or dizziness. 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 History Comments: Sexual Activity: Yes; Male Contraception: Pill PAST MEDICAL HISTORY Diagnosis Date Abnormal Pap smear of cervix +HPV Anemia Asthma Breast cyst, left 2018 Chlamydia Depression/anxiety Herpes simplex virus (HSV) infection Hx of ovarian cyst Hx: UTI (urinary tract infection) Hypertension Hypoglycemia 5 years ago Infectious mononucleosis Infertility, female Insomnia PID (acute pelvic inflammatory disease) 2014 Placental abruption depression Recurrent UTI Renal calculi recurrent kidney stones Seizure disorder (HCC) psychogenic Sickle cell anemia (HCC) Syncope and collapse with pseudo-seizures Thyroid disease PAST SURGICAL HISTORY Procedure Laterality Date BREAST CYST ASPIRATION - ADDTL LESION 2019 Dr Corona-Drifting CERVIX UTERI CONIZA LP ELCTRO EXCI 2008 SECTION HX classical incision CT ABDOMEN 09/10/[address] [facility] [address] BRAIN 06/19/2005 [facility] DANDC, DIAG AND/OR THERAPEUTIC 11/27/2022 Suction DANDC for missed AB L'SCOPE DX W/WO BRUSHINGS/WASHINGS 03/17/2022 Dr Myers-pelvic pain-endometriosis ruled out L'SCOPE DX W/WO BRUSHINGS/WASHINGS 03/12/2020 lysis of adhesions-Dr Myers LITHOTRIPSY XTRCORP SHOCK WAVE 04/16/2006 Lithotripsy Right kidney OVARY SURGERY HX 04/10/2013 Excision of right fallopian tube and ovary PAST SURGICAL HISTORY OF 02/16/2003 right ear cartilage repair TONSILLECTOMY AND ADENOIDECTOMY HX 12/17/2012 FAMILY HISTORY Problem Relation Age of Onset Stroke Father No Known Problems Sister Hypertension Maternal Grandmother Blood Clots Maternal Grandmother other (Hypoglycemia) Maternal Grandfather Heart Maternal Grandfather Diabetes Maternal Grandfather Breast Cancer Paternal Grandmother Heart Attack Paternal Grandfather other (epilepsy) Half-sister Social History Tobacco Use Smoking status: Never Smokeless tobacco: Never Vaping Use Vaping Use: Never used Substance Use Topics Alcohol use: No Drug use: No Current Outpatient Medications Medication Sig sertraline (ZOLOFT) 100 mg tablet Take 100 mg by mouth once daily. albuterol HFA (PROVENTIL HFA, VENTOLIN HFA) 90 mcg/actuation inhaler Inhale 1 Puff as instructed every 4 hours as needed. promethazine (PHENERGAN) 25 mg tablet Take 25 mg by mouth every 6 hours as needed. traZODone (DESYREL) 100 mg tablet Take 100 mg by mouth. vit/iron fum/folic ac (-FOLIC ACID ORAL) Take by mouth. ondansetron orally disintegrating (ZOFRAN ODT) 4 mg disintegrating tablet Take 1 tablet by mouth every 6 hours as needed for nausea/vomiting. tamsulosin (FLOMAX) 0.4 mg Take 1 capsule by mouth daily at bedtime for 7 days. omeprazole (PRILOSEC) 20 mg capsule Take 1 capsule by mouth once daily for 28 days. diphenhydrAMINE (BENADRYL) 25 mg capsule Take 1 capsule by mouth every 6 hours as needed (with Compazine). gabapentin (NEURONTIN) 100 mg capsule Take 1 capsule by mouth once daily. tiZANidine HCl (ZANAFLEX) 4 mg capsule Take 4 mg by mouth three times daily as needed for Muscle Spasm. levETIRAcetam (KEPPRA) 500 mg tablet Take 500 mg by mouth twice daily. citalopram hydrobromide (CELEXA) 10 mg tablet Take 10 mg by mouth once daily. ibuprofen (MOTRIN) 600 mg tablet Take 600 mg by mouth every 6 hours as needed. oxyCODONE-acetaminophen (PERCOCET) 5-325 mg tablet Take 1 tablet by mouth every 4 hours as needed. traMADol (ULTRAM) 50 mg tablet Take 50 mg by mouth every 6 hours as needed. HYDROCODONE/ACETAMINOPHEN (NORCO ORAL) Take by mouth. cyclobenzaprine (FLEXERIL) 10 mg tablet Take 10 mg by mouth daily at bedtime. diphenhydrAMINE (SLEEP AID, DIPHENHYDRAMINE,) 50 mg capsule Take 50 mg by m (more content not included)... [facility] KENDALL VASQUES ([id number]) 1985 F Date Time Provider Department 12/03/22 COLLEEN MAJOR During your visit today, we recorded the following information about you: Noe Francisco RN 12/03/2022 11:21 AM Signed ----- Message from Colleen Zavala MD sent at 12/02/2022 4:46 PM EDT ----- Recently had Suction DANDC for missed ab. See how she is feeling please- still waiting for anora testing. Pap is normal- but HPV positive for other HPV- can we get her other PAP and HPV records? Please call patient- if up to date with pap and hpv and no history of abnormal then she will not need colposcopy but if recently abnormal will need colposcopy. Will place order for colposcopy just in case. I see in her h/o she does have h/o LEEP but many years ago. Noe Francisco RN 12/03/2022 11:28 AM Signed Left message for patient to call office. See below note. Last pap found in [facility] is 09/07/20 from [place] and it was normal pap, negative HPV. Please verify if this is the last pap patient had and that she didn't have have any more recent pap or abnormalities? Colleen Corrales RN, MD 12/03/2022 12:05 PM Addendum Spoke to patient today- she had appointment. She reports last abnormal pap was at time of leep in 2009. After that all pap and HPV tests have been normal. Pt reports last pap and HPV test was 5 yrs and both normal. Based on this pt will just need repeat pap and hpv in one year. Pt is aware of this. Allergies As of Date: 12/03/2022 Noted Allergy Reaction SHELLFISH CONTAINING PRODUCTS 04/17/2021 7 - Swelling ADHESIVE 06/17/2011 2 - Rash CODEINE 09/20/2009 4 - Hives 11 - Vomiting FLAGYL (METRONIDAZOLE) 09/27/2021 14 - Other: See Comments Comments: SZ MORPHINE 05/23/2022 4 - Hives NSAIDS (NON-STEROIDAL ANTI-INFLAM*09/27/2021 14 - Other: See Comments Comments: Stage 2 kidney dx TOPAMAX (TOPIRAMATE) 09/27/2021 8 - GI Upset Date Reviewed: 12/03/2022 Reviewed by: Lyndsey Mojica Ma - Fully Assessed Reason for Visit: Results [95] Prescriptions as of 12/03/2022 - miSOPROStol (CYTOTEC) 200 mcg tablet Use 4 tablets vaginally one time only for 1 dose. - oxyCODONE-acetaminophen (PERCOCET) 5-325 mg tablet Take 1 tablet by mouth every 6 hours as needed for pain for up to 3 days. - Norethin Yrn-Eth Estrad-FE (LOESTRIN FE 1/20) 1 mg-20 mcg (21)/75 mg (7) per tablet Take 1 tablet by mouth once daily. - sertraline (ZOLOFT) 100 mg tablet Take 100 mg by mouth once daily. - albuterol HFA (PROVENTIL HFA, VENTOLIN HFA) 90 mcg/actuation inhaler Inhale 1 Puff as instructed every 4 hours as needed. - promethazine (PHENERGAN) 25 mg tablet Take 25 mg by mouth every 6 hours as needed. - traZODone (DESYREL) 100 mg tablet Take 100 mg by mouth. - vit/iron fum/folic ac (-FOLIC ACID ORAL) Take by mouth. - ondansetron orally disintegrating (ZOFRAN ODT) 4 mg disintegrating tablet Take 1 tablet by mouth every 6 hours as needed for nausea/vomiting. - tamsulosin (FLOMAX) 0.4 mg Take 1 capsule by mouth daily at bedtime for 7 days. - omeprazole (PRILOSEC) 20 mg capsule Take 1 capsule by mouth once daily for 28 days. - diphenhydrAMINE (BENADRYL) 25 mg capsule Take 1 capsule by mouth every 6 hours as needed (with Compazine). - gabapentin (NEURONTIN) 100 mg capsule Take 1 capsule by mouth once daily. - tiZANidine HCl (ZANAFLEX) 4 mg capsule Take 4 mg by mouth three times daily as needed for Muscle Spasm. - levETIRAcetam (KEPPRA) 500 mg tablet Take 500 mg by mouth twice daily. - citalopram hydrobromide (CELEXA) 10 mg tablet Take 10 mg by mouth once daily. - ibuprofen (MOTRIN) 600 mg tablet Take 600 mg by mouth every 6 hours as needed. - cyclobenzaprine (FLEXERIL) 10 mg tablet Take 10 mg by mouth daily at bedtime. - diphenhydrAMINE (SLEEP AID, DIPHENHYDRAMINE,) 50 mg capsule Take 50 mg by mouth every 6 hours as needed. - levETIRAcetam (KEPPRA) 500 mg tablet Take 0.5 tablets by mouth twice daily. - rizatriptan (MAXALT) 10 mg tablet Take 1 tablet by mouth as needed for Migraine Headache (see administration instructions) (at onset of headache. May repeat after 2 hours.). - norethindrone-e.estradiol- iron (LO LOESTRIN FE) 1 mg-10 mcg(24) /10 mcg (2) ORAL Tab Take 1 tablet by mouth once daily. Problem List As Of Date 12/03/2022 Noted Resolved UTI (Lower Urinary Tract Infection) [N39.0] 09/20/2009 Calculus of Kidney [N20.0] 09/20/2009 Seizure disorder [G40.909] 09/20/2009 07/15/2011 Viral Warts due to HPV [B07.9] 09/20/2009 Transient alteration of awareness [R40.4] 04/01/2011 11/21/2015 Reactive hypoglycemia [E16.1] 06/17/2011 Hirsutism [L68.0] 06/17/2011 Irregular menses [N92.6] 06/17/2011 Right flank pain [R10.9] 04/18/2015 Lower urinary tract symptoms (LUTS) [R39.9] 04/18/2015 Breast pain [N64.4] 03 (more content not included)... Normal [facility] Basophil percentageOrdered B y: Norma Jacob on 11-27-2022 WBC (Bld) [#/Vol] 8.6 10*3/uL 4.4-11.0 [facility] Blood erythrocytes count (nu mber/volume)Ordered By: Norma Jacob on 11-27-2022 RBC (Bld) [#/Vol] 4.25 10*6/uL 4.2-5.[address] [facility] Blood hemoglobin measurement (mass/volume)Ordered By: Norma Jacob on 11-27-2022 Hemoglobin (Bld) [Mass/Vol] 12.8 g/dL 12.0-15.0 [facility] Blood platelet mean volumeOr dered By: Norma Jacob on 11-27-2022 Platelet mean volume (Bld) [Entitic vol] 10.7 fL 6.2-12.0 [facility] Determination of erythrocyte mean corpuscular volume (MCV)Ordered By: Norma Jacob on 11-27-2022 MCV (RBC) [Entitic vol] 95.1 fL 81-99 [facility] Hematocrit Auto (Bld) [Volum e fraction]Ordered By: Norma Jacob on 11-27-2022 Hematocrit (Bld) [Volume fraction] 40.4 % 37-47 [facility] Laboratory - Hematology and Cell countsOrdered By: Norma Jacob on 11-27-2022 Erythrocyte distribution width (RBC) [Entitic vol] 44.1 fL 35.1-43.9 [facility] Erythrocyte distribution width (RBC) [Ratio] 12.7 % 11.6-14.6 [facility] MCH (RBC) [Entitic mass] 30.1 pg 27.0-32.0 [facility] MCHC Auto (RBC) [Mass/Vol]Or dered By: Norma Jacob on 11-27-2022 MCHC (RBC) [Mass/Vol] 31.7 g/dL 32-36 [facility] Platelets bldOrdered By: Norma Jacob on 11-27-2022 Platelets (Bld) [#/Vol] 218 10*3/uL 150-450 [facility] CNPNon 11-24-2022 CNPN Telephone (RENÉEWNorma) -- KENDALL VASQUES ([id number]) 1985 F Date Time Provider Department 11/24/22 OLGA LIDIA THOMSON During your visit today, we recorded the following information about you: Cassy Meneses RN 11/24/2022 8:26 AM Signed 7w4d Her NOB with SW needs rescheduled due to provider illness. There are no openings this week. She's had a PNOB and dating US. Patient would like to be seen today if possible due to nausea. She's vomiting twice day. Has tried Vitamin B6 and Unisom, phenergan, and Zofran. Feels nauseated all day. Please advise. If not able to be seen today where this week can we add patient with any provider? Thank you. Cassy Gil RN, RN 11/24/2022 9:59 AM Signed Spoke with DM. Provider had a cancellation. Patient notified and scheduled. Cassy Meneses RN Allergies As of Date: 11/24/2022 Noted Allergy Reaction SHELLFISH CONTAINING PRODUCTS 04/17/2021 7 - Swelling ADHESIVE 06/17/2011 2 - Rash CODEINE 09/20/2009 4 - Hives 11 - Vomiting FLAGYL (METRONIDAZOLE) 09/27/2021 14 - Other: See Comments Comments: SZ MORPHINE 05/23/2022 4 - Hives NSAIDS (NON-STEROIDAL ANTI-INFLAM*09/27/2021 14 - Other: See Comments Comments: Stage 2 kidney dx TOPAMAX (TOPIRAMATE) 09/27/2021 8 - GI Upset Date Reviewed: 11/17/2022 Reviewed by: Karolyn Vidal RN - Fully Assessed Reason for Visit: NOB Appointment [Other] Prescriptions as of 11/24/2022 - sertraline (ZOLOFT) 100 mg tablet Take 100 mg by mouth once daily. - albuterol HFA (PROVENTIL HFA, VENTOLIN HFA) 90 mcg/actuation inhaler Inhale 1 Puff as instructed every 4 hours as needed. - promethazine (PHENERGAN) 25 mg tablet Take 25 mg by mouth every 6 hours as needed. - traZODone (DESYREL) 100 mg tablet Take 100 mg by mouth. - vit/iron fum/folic ac (-FOLIC ACID ORAL) Take by mouth. - ondansetron orally disintegrating (ZOFRAN ODT) 4 mg disintegrating tablet Take 1 tablet by mouth every 6 hours as needed for nausea/vomiting. - tamsulosin (FLOMAX) 0.4 mg Take 1 capsule by mouth daily at bedtime for 7 days. - omeprazole (PRILOSEC) 20 mg capsule Take 1 capsule by mouth once daily for 28 days. - diphenhydrAMINE (BENADRYL) 25 mg capsule Take 1 capsule by mouth every 6 hours as needed (with Compazine). - gabapentin (NEURONTIN) 100 mg capsule Take 1 capsule by mouth once daily. - tiZANidine HCl (ZANAFLEX) 4 mg capsule Take 4 mg by mouth three times daily as needed for Muscle Spasm. - levETIRAcetam (KEPPRA) 500 mg tablet Take 500 mg by mouth twice daily. - citalopram hydrobromide (CELEXA) 10 mg tablet Take 10 mg by mouth once daily. - ibuprofen (MOTRIN) 600 mg tablet Take 600 mg by mouth every 6 hours as needed. - oxyCODONE-acetaminophen (PERCOCET) 5-325 mg tablet Take 1 tablet by mouth every 4 hours as needed. - traMADol (ULTRAM) 50 mg tablet Take 50 mg by mouth every 6 hours as needed. - HYDROCODONE/ACETAMINOPHEN (NORCO ORAL) Take by mouth. - cyclobenzaprine (FLEXERIL) 10 mg tablet Take 10 mg by mouth daily at bedtime. - diphenhydrAMINE (SLEEP AID, DIPHENHYDRAMINE,) 50 mg capsule Take 50 mg by mouth every 6 hours as needed. - levETIRAcetam (KEPPRA) 500 mg tablet Take 0.5 tablets by mouth twice daily. - rizatriptan (MAXALT) 10 mg tablet Take 1 tablet by mouth as needed for Migraine Headache (see administration instructions) (at onset of headache. May repeat after 2 hours.). - norethindrone-e.estradiol- iron (LO LOESTRIN FE) 1 mg-10 mcg(24) /10 mcg (2) ORAL Tab Take 1 tablet by mouth once daily. Problem List As Of Date 11/24/2022 Noted Resolved UTI (Lower Urinary Tract Infection) [N39.0] 09/20/2009 Calculus of Kidney [N20.0] 09/20/2009 Seizure disorder [G40.909] 09/20/2009 07/15/2011 Viral Warts due to HPV [B07.9] 09/20/2009 Transient alteration of awareness [R40.4] 04/01/2011 11/21/2015 Reactive hypoglycemia [E16.1] 06/17/2011 Hirsutism [L68.0] 06/17/2011 Irregular menses [N92.6] 06/17/2011 Right flank pain [R10.9] 04/18/2015 Lower urinary tract symptoms (LUTS) [R39.9] 04/18/2015 Breast pain [N64.4] 04/26/2015 Fever [R50.9] 03/19/2016 Urinary tract infection with hematuria [N39.0, *03/19/2016 12/25/2018 Vision loss of right eye [H54.61] 12/27/2016 Left amblyopia [H53.002] 12/27/2016 Supervision of with history of infert*11/17/2022 Vaginal bleeding in , first trimester *11/17/2022 Antepartum multigravida of advanced maternal ag*11/17/2022 History of hypertension [Z86.79] 11/17/2022 History of classical section [Z98.891] 11/17/2022 History of placental abruption [Z87.59] 11/17/2022 in prior , currently pr*11/17/2022 History of depression [Z87.59, Z86.5*11/17/2022 History of cervical LEEP biopsy affecting care *11/17/2022 Nausea and vomiting during [O21.9] 11/17/2022 History of (more content not included)... Normal [facility] HISTORY PHYSICALon 3 HISTORY PHYSICAL HNO ID: [id number] Author: Colleen Major MD Service: ? Author Type: Physician Type: HANDP Filed: 11/24/2022 1:13 PM Note Text: Pre-Op History and Physical HPI: The patient is a 36 year old female presenting for pre-operative visit. She is scheduled for Suction DANDC, for missed ab on TBD (November 2022 week of 11/24). Procedure discussed along with risks, benefits and complications. Other alternatives discussed for management. Consent form signed? Yes. PAST MEDICAL HISTORY Diagnosis Date Abnormal Pap smear of cervix +HPV Anemia Asthma Breast cyst, left 2019 Chlamydia Depression/anxiety Herpes simplex virus (HSV) infection Hx of ovarian cyst Hx: UTI (urinary tract infection) Hypertension Hypoglycemia 5 years ago Infectious mononucleosis Infertility, female Insomnia PID (acute pelvic inflammatory disease) 2015 Placental abruption depression Recurrent UTI Renal calculi recurrent kidney stones Seizure disorder (HCC) psychogenic Sickle cell anemia (HCC) Syncope and collapse with pseudo-seizures Thyroid disease PAST SURGICAL HISTORY Procedure Laterality Date BREAST CYST ASPIRATION - ADDTL LESION 2019 Dr Corona-Drifting CERVIX UTERI CONIZA LP ELCTRO EXCI 2008 SECTION HX classical incision CT ABDOMEN 09/10/[address] [facility] [address] BRAIN 06/19/2005 [facility] L'SCOPE DX W/WO BRUSHINGS/WASHINGS 03/17/2022 Dr Myers-pelvic pain-endometriosis ruled out L'SCOPE DX W/WO BRUSHINGS/WASHINGS 03/12/2020 lysis of adhesions-Dr Myers LITHOTRIPSY XTRCORP SHOCK WAVE 04/16/2006 Lithotripsy Right kidney OVARY SURGERY HX 04/10/2013 Excision of right fallopian tube and ovary PAST SURGICAL HISTORY OF 02/16/2003 right ear cartilage repair TONSILLECTOMY AND ADENOIDECTOMY HX 12/17/2012 Current Outpatient Medications Medication Sig Dispense Refill sertraline (ZOLOFT) 100 mg tablet Take 100 mg by mouth once daily. albuterol HFA (PROVENTIL HFA, VENTOLIN HFA) 90 mcg/actuation inhaler Inhale 1 Puff as instructed every 4 hours as needed. promethazine (PHENERGAN) 25 mg tablet Take 25 mg by mouth every 6 hours as needed. traZODone (DESYREL) 100 mg tablet Take 100 mg by mouth. vit/iron fum/folic ac (-FOLIC ACID ORAL) Take by mouth. ondansetron orally disintegrating (ZOFRAN ODT) 4 mg disintegrating tablet Take 1 tablet by mouth every 6 hours as needed for nausea/vomiting. 20 tablet 0 tamsulosin (FLOMAX) 0.4 mg Take 1 capsule by mouth daily at bedtime for 7 days. 7 capsule 0 omeprazole (PRILOSEC) 20 mg capsule Take 1 capsule by mouth once daily for 28 days. 28 capsule 0 diphenhydrAMINE (BENADRYL) 25 mg capsule Take 1 capsule by mouth every 6 hours as needed (with Compazine). 20 capsule 0 gabapentin (NEURONTIN) 100 mg capsule Take 1 capsule by mouth once daily. tiZANidine HCl (ZANAFLEX) 4 mg capsule Take 4 mg by mouth three times daily as needed for Muscle Spasm. levETIRAcetam (KEPPRA) 500 mg tablet Take 500 mg by mouth twice daily. citalopram hydrobromide (CELEXA) 10 mg tablet Take 10 mg by mouth once daily. ibuprofen (MOTRIN) 600 mg tablet Take 600 mg by mouth every 6 hours as needed. oxyCODONE-acetaminophen (PERCOCET) 5-325 mg tablet Take 1 tablet by mouth every 4 hours as needed. traMADol (ULTRAM) 50 mg tablet Take 50 mg by mouth every 6 hours as needed. HYDROCODONE/ACETAMINOPHEN (NORCO ORAL) Take by mouth. cyclobenzaprine (FLEXERIL) 10 mg tablet Take 10 mg by mouth daily at bedtime. diphenhydrAMINE (SLEEP AID, DIPHENHYDRAMINE,) 50 mg capsule Take 50 mg by mouth every 6 hours as needed. levETIRAcetam (KEPPRA) 500 mg tablet Take 0.5 tablets by mouth twice daily. 30 tablet 11 rizatriptan (MAXALT) 10 mg tablet Take 1 tablet by mouth as needed for Migraine Headache (see administration instructions) (at onset of headache. May repeat after 2 hours.). 12 tablet 3 norethindrone-e.estradiol- iron (LO LOESTRIN FE) 1 mg-10 mcg(24) /10 mcg (2) ORAL Tab Take 1 tablet by mouth once daily. No current facility-administered medications for this visit. ALLERGIES: Shellfish Containing Products, Adhesive, Codeine, Flagyl [Metronidazole], Morphine, Nsaids (Non-Steroidal Anti-Inflammatory Drug), and Topamax [Topiramate] PERSONAL HISTORY: Social History Tobacco Use Smoking status: Never Smokeless tobacco: Never Vaping Use Vaping Use: Never used Substance Use Topics Alcohol use: No Drug use: No FAMILY HISTORY: FAMILY HISTORY Problem Relation Age of Onset Stroke Father No Known Problems Sister Hypertension Maternal Grandmother Blood Clots Maternal Grandmother other (Hypoglycemia) Maternal Grandfather Heart Maternal Grandfather Diabetes Maternal Grandfather Breast Cancer Paternal Grandmother Heart Attack Paternal Grandfather other (epilepsy) Half-sister REVIEW OF SYMPTOMS: negative except as noted above PHYSICAL EXAMINA (more content not included)... Normal [facility] HPV W/GENOTYPE THIN PREPon 1 HPV 16 Ag Ql (Unsp spec) Negative Normal Negative for HPV DNA high risk type 16 by PCR [facility] Comment on above: Order Comment: Speci men Type: FLUID SPECIMENOrdering Facility: [facility] Address: [address] [place] [address] Performed By: #### H PVHRT ####[facility] LABCLIA [id number] [place] [address] [place] HPV 18 Ag Ql (Unsp spec) Negative Normal Negative for HPV DNA high risk type 18 by PCR [facility] Comment on above: Order Comment: Speci men Type: FLUID SPECIMENOrdering Facility: [facility] Address: [address] [place] [address] Performed By: #### H PVHRT ####[facility] LABCLIA [id number] [place] [address] [place] HPV 31+33+35+39+45+51+52+56 +58+59+66+68 DNA DAYAMI+probe Ql (Cvx) Positive for one or more of the following HPV DNA high risk types:31,33,35,39,45,51,52 ,56,58,59,66,68 by PCR Abnormal Negative for HPV DNA high risk types: 31,33,35,3 9,45,51,52 ,56,58,59, 66,68 by PCR. [facility] Comment on above: Order Comment: Speci men Type: FLUID SPECIMENOrdering Facility: [facility] Address: [address] [place] [address] Performed By: #### H PVHRT ####[facility] LABCLIA [id number] [place] [address] [place] PAP TESTon 11-24-2022 ADEQUACY Normal [facility] Comment on above: Order Comment: Speci men Type: FLUID SPECIMENOrdering Facility: [facility] Address: [address] [place] [address] Result Comment: Sati sfactory for interpretation No endocervical component Performed By: #### L [id number] ####[facility] LABCLIA [id number] [place] [address] [place] LABORATORYCLIA [id number] [place] [address] [place] CASE REPORT Normal [facility] Comment on above: Order Comment: Speci men Type: FLUID SPECIMENOrdering Facility: [facility] Address: [address] [place] [address] Result Comment: Gyne cologic Cytology Report Case: [id number] Authorizing Provider: Colleen Major, Collected: 11/24/2022 01:08 PM MD Ordering Location: OB/Gynecology Received: 11/24/2022 04:49 PM First Screen: Leah, Monica, CT, ASCP Rescreen: Di Samson, Olga Lidia, CT, ASCP Specimen: Pap Test, ThinPrep, Cervix Performed By: #### L [id number] ####[facility] LABCLIA [id number] [place] [address] [place] LABORATORYCLIA [id number] [place] [address] [place] CLINICAL HISTORY, CYTOLOGY, 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 Routine Exam Normal [facility] Comment on above: Order Comment: Speci men Type: FLUID SPECIMENOrdering Facility: [facility] Address: [address] [place] [address] Performed By: #### L [id number] ####[facility] LABCLIA [id number] [place] [id number] [place] LABORATORYCLIA [id number] [place] [address] [place] FINAL PERFORMING LAB Normal [facility] Comment on above: Order Comment: Speci men Type: FLUID SPECIMENOrdering Facility: [facility] Address: [address] [place] [address] Result Comment: Tech nical component, analog ic design architect screening performed at [facility], [address] [id number] CLIA# [id number] Diagnostic interpretation performed at [facility], [address] [facility] [address] CLIA# [id number] Environmental Construction Engineer: Matthieu Drew M.D. Performed By: #### L [id number] ####[facility] LABCLIA [id number] [place] [id number] [facility] LABORATORYCLIA [id number] [place] [address] [place] HPV REFLEX Yes HPV Normal [facility] Comment on above: Order Comment: Speci men Type: FLUID SPECIMENOrdering Facility: [facility] Address: [address] [place] [address] Performed By: #### L [id number] ####[facility] LABCLIA [id number] [address] [id number] [place] [address] [place] INTERPRETATION, CYTOLOGY, 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 Normal [facility] Comment on above: Order Comment: Speci men Type: FLUID SPECIMENOrdering Facility: [facility] Address: [address] [place] [address] Result Comment: Nega tive for intraepithelial lesion or malignancy. Performed By: #### L [id number] ####[facility] LABCLIA [id number] [address] LABORATORYCLIA [id number] [place] [id number] [place] LMP 10/02/2022 Normal [facility] Comment on above: Order Comment: Speci men Type: FLUID SPECIMENOrdering Facility: [facility] Address: [address] [place] [address] Performed By: #### L [id number] ####[facility] LABCLIA [id number] [place] [id number] [facility] LABORATORYCLIA [id number] [place] [address] [place] PAP DISCLAIMER COMMENT The Pap Smear is a screening test for cervical cancer. False negative results occur with all screening tests, emphasizing the need for rescreening at recommended intervals, and clinical correlation. Normal [facility] Comment on above: Order Comment: Speci men Type: FLUID SPECIMENOrdering Facility: [facility] Address: [address] [place] [address] Performed By: #### L [id number] ####[facility] LABCLIA [id number] [address] LABORATORYCLIA [id number] [address] PAP UNHAIRING MACHINE OPERATOR COMMENT This specimen has be en analyzed by the ThinPrep Imaging System, an automated imaging and review system, which assists the laboratory in evaluating cells on ThinPrep Pap tests. Following automated imaging, selected [place] from every slide are reviewed by a analog ic design architect. Normal [facility] Comment on above: Order Comment: Speci men Type: FLUID SPECIMENOrdering Facility: [facility] Address: [address] [place] [address] Performed By: #### L [id number] ####[facility] LABCLIA [id number] [address] LABORATORYCLIA [id number] [address] OBSTETRIC ULTRASOUND WHIon 1 [facility] CNNURSEon 11-17-2022 CNNURSE Nurse Visit (OBGYWM) -- KENDALL VASQUES ([id number]) 1985 F Date Time Provider Department 11/17/22 9:00 AM NURSE PNOB [facility] WSTR OBGYWM During your visit today, we recorded the following information about you: Last Period 10/02/22 Karolyn Vidal RN 11/17/2022 2:44 PM Signed INITIAL OB ASSESSMENT OB Provider: Karolyn Vidal RN HPI: Kendall is a 36 year old White here to establish Obstetrical Care. Patient's last menstrual period was 10/02/2022 (approximate). from OB Dating Form. Cycles regular was planned and a result of fertility treatments Clomid/Letrizole Complaints: vaginal bleeding and nausea and vomiting OB History T0 L0 SAB0 IAB0 Ectopic0 Multiple0 Live Births1 # 1 - Date: 01/05/21, Sex: Female, Weight: 1 lb 3 oz (0.539 kg), GA: 24w0d, Delivery: , Other, Apgar1: None, Apgar5: None, Living: Demise, Comments: PTL 01/02/2021-transferred to [facility], placental abruption,Baby taken to NICU-Lived for 2 hours. Mom told baby from blood clot in lungs # 2 - Date: None, Sex: None, Weight: None, GA: None, Delivery: None, Apgar1: None, Apgar5: None, Living: None, Comments: None Previous history: Prior : yes x 1 History of 4th degree laceration: No History of shoulder dystocia: No History of Hypertensive disorders including pre-eclampsia, chronic hypertension or gestational hypertension: Yes History of gestational diabetes: No Patient's Risk Screening for delivery: Have you had a prior rossi between 20w and 36w6d?: (!) Yes Did you present in active spontaneous labor or have ruptured membranes, or advanced cervical dilation (greater than or equal to 4 cm) or effacement?: (!) Yes MEDICAL/PSYCHOSOCIAL HISTORY: History of hemorrhage or bleeding concerns: No Thyroid Disease: No History of chronic hypertension: Yes History of pre-existing diabetes: No No results found for: ABORHD No weight on file for this encounter. History of abnormal pap: Yes Prior treatment for cervical dysplasia: LEEP. History of STDs: chlamydia Tobacco use: No Caffeine use: No Drug use: No Alcohol use: No Multivitamin with Folic acid: Yes Bahai or heritage: No Would refuse blood transfusion if medically necessary: No Are you currently employed? No Do you have any history of depression, anxiety, PTSD, eating disorders or other mood problems: No Do you have any safety concerns or history of traumatic events that you would like to discuss with your provider: No SDOH Screening: How often does this describe you? I don't have enough money to pay my bills: Rarely Within the past 12 months, have you worried that your food would run out before you had money to buy more: Never In the past 12 months, has lack of reliable transportation kept you from going to medical appointments or work, or from keeping things needed for daily living: Never In the past 12 months, have you had any concerns about having a place to live, or about the condition or quality of your housing: Never Are there any cultural or spiritual needs we should be aware of: No Depression/Anxiety Screening: admits to symptoms of depression. OB Depression and Anxiety Screening- This Encounter (since 11/16/2022) Over the past 2 weeks have you felt down, depressed, or hopeless? Negative Over the past two weeks, have you felt little interest or pleasure in doing things?? Positive - Further Testing Indicated I have been able to laugh and see the funny side of things. As much as I always could I have looked forward with enjoyment to things. Rather less than I used to I have blamed myself unnecessarily when things went wrong. Not very often I have been anxious or worried for no good reason. Yes, sometimes I have felt scared or panicky for no good reason. Yes, sometimes Things have been getting on top of me. Yes, sometimes I haven't been coping as well as usual I have been so unhappy that I have had difficulty sleeping. Not very often I have felt sad or miserable. Yes, quite often I have been so unhappy that I have been crying. Only occasionally The thought of harming myself has occurred to me. Never [place] Depression Scale Total 12 Feeling nervous, anxious or on edge 1-Several days Not being able to stop or control worrying 1-Several days Anxiety Pre-Screening Total (If >/= 3 additional questions will be reviewed) 2 Genetic Screening: Partner present: No Patient verbalized knowledge of partner family health history: Yes Do you or your partner have any personal or family history of defects not previously discussed: No Do you have history of a complicated by anomaly, genetic condition, or demise: Yes, loss at 24 weeks-lived for 2 hour (more content not included)... Normal [facility] Absolute lymphocyte countOrd ered By: Rob Pedraza on 11-11-2022 Lymphocytes Auto (Unsp spec) [#/Vol] 2.10 10*3/uL 0.83-4.51 [facility] Basophil percentageOrdered B y: Rob Pedraza on 11-11-2022 Basophil percentage 0 SEEN /hpf 0-5 [facility] Basophils/100 WBC (Bld) 0.4 % 0-1 [facility] Bilirubin [Mass/Vol] 0.40 mg/dL 0.20-1.00 [facility] Comment on above: For patients on eltr ombopag therapy, use of Dimension [employer] TBIL is not recommended. Chloride [Moles/Vol] 109 mmol/L 98-107 [facility] Eosinophils/100 WBC (Bld) 1.3 % 0-5 [facility] Glucose [Mass/Vol] 92 mg/dL 74-106 [facility] Neutrophils (Bld) [#/Vol] 4.7 10*3/uL 2.0-7.7 [facility] Neutrophils/100 WBC (Bld) 63.2 % 47-70 [facility] Potassium [Moles/Vol] 3.8 mmol/L 3.5-5.1 [facility] Protein [Mass/Vol] 7.8 g/dL 6.4-8.2 [facility] Sodium [Moles/Vol] 137 mmol/L 136-145 [facility] WBC (Bld) [#/Vol] 7.5 10*3/uL 4.4-11.0 [facility] Bilirubin Test strip Ql (U)O rdered By: Rob Pedraza on 11-11-2022 Bilirubin Ql (U) Negative Negative [facility] Blood erythrocytes count (nu mber/volume)Ordered By: Rob Pedraza on 11-11-2022 RBC (Bld) [#/Vol] 4.22 10*6/uL 4.2-5.[address] [facility] Blood hemoglobin measurement (mass/volume)Ordered By: Rob Pedraza on 11-11-2022 Hemoglobin (Bld) [Mass/Vol] 12.7 g/dL 12.0-15.0 [facility] Blood lymphocytes/100 leukoc ytesOrdered By: Rob Lopezteena on 11-11-2022 Lymphocytes/100 WBC (Bld) 28.0 % 19-41 [facility] Blood monocytes/100 leukocyt esOrdered By: Rob Viktoriarosalva on 11-11-2022 Monocytes/100 WBC (Bld) 6.8 % 0-10 [facility] Blood platelet mean volumeOr dered By: Rob Blumrosalva on 11-11-2022 Platelet mean volume (Bld) [Entitic vol] 9.8 fL 6.2-12.0 [facility] CNPNon 11-11-2022 CNPN Telephone (OBGYWM) -- LAYOKENDALL Norma ([id number]) 1985 F Date Time Provider Department 11/11/22 SUDEEP PAREDES During your visit today, we recorded the following information about you: Cassy Meneses RN 11/11/2022 8:24 AM Signed LMP 10/05 Approximately 5w2d See 11/09 phone note. Patient called in today with RLQ pain that radiates to her back. Pain rate of 9 out of 10. Pain is intermittent. Nauseated, chilled, and diarrhea. Having dark brown like coffee grounds vaginal bleeding when she wipes. Patient states she has a hx of kidney stones. Instructed patient to go to ER for evaluation given the severity of her pain. Sudeep Reynolds RN, MD 11/11/2022 8:57 AM Signed Noted AND agree MD Young Ramirez Teresa RN 11/17/2022 2:40 PM Addendum Patient has Pree new OB visit today and a new OB appointment with Dr. Garcia on November 24. She also has an ultrasound on November 21. She is 6w4d by dates. she called in complaining of bleeding on October 25 and quantitative hCGs were done. She was seen in the emergency room on 11/09 and 11/11. She also saw her campaign analyst on . I have placed these visits on Dr. Garcia's desk for review. Patient continues to have some spotting when she wipes and with bowel movements. Still noting the right lower quadrant pain but it has not gotten worse. She feels like it comes and goes. I have advised her on miscarriage/ectopic precautions. Patient is to call/come in/go to ER if her bleeding or pain gets worse or PRN problems.please advise if any further advice. Charlotte Garcia MD 11/17/2022 5:01 PM Signed Agree with miscarriage and ectopic precautions and scheduled US Allergies As of Date: 11/11/2022 Noted Allergy Reaction ADHESIVE 06/17/2011 2 - Rash CODEINE 09/20/2009 4 - Hives 11 - Vomiting FLAGYL (METRONIDAZOLE) 09/27/2021 14 - Other: See Comments Comments: SZ MORPHINE 05/23/2022 4 - Hives NSAIDS (NON-STEROIDAL ANTI-INFLAM*09/27/2021 14 - Other: See Comments Comments: Stage 2 kidney dx TOPAMAX (TOPIRAMATE) 09/27/2021 8 - GI Upset Date Reviewed: 05/23/2022 Reviewed by: Sarai Chin, RN - Fully Assessed Reason for Visit: Early OB pain [Other] Prescriptions as of 11/17/2022 - sertraline (ZOLOFT) 100 mg tablet Take 100 mg by mouth once daily. - albuterol HFA (PROVENTIL HFA, VENTOLIN HFA) 90 mcg/actuation inhaler Inhale 1 Puff as instructed every 4 hours as needed. - promethazine (PHENERGAN) 25 mg tablet Take 25 mg by mouth every 6 hours as needed. - traZODone (DESYREL) 100 mg tablet Take 100 mg by mouth. - vit/iron fum/folic ac (-FOLIC ACID ORAL) Take by mouth. - ondansetron orally disintegrating (ZOFRAN ODT) 4 mg disintegrating tablet Take 1 tablet by mouth every 6 hours as needed for nausea/vomiting. - tamsulosin (FLOMAX) 0.4 mg Take 1 capsule by mouth daily at bedtime for 7 days. - omeprazole (PRILOSEC) 20 mg capsule Take 1 capsule by mouth once daily for 28 days. - diphenhydrAMINE (BENADRYL) 25 mg capsule Take 1 capsule by mouth every 6 hours as needed (with Compazine). - gabapentin (NEURONTIN) 100 mg capsule Take 1 capsule by mouth once daily. - tiZANidine HCl (ZANAFLEX) 4 mg capsule Take 4 mg by mouth three times daily as needed for Muscle Spasm. - levETIRAcetam (KEPPRA) 500 mg tablet Take 500 mg by mouth twice daily. - citalopram hydrobromide (CELEXA) 10 mg tablet Take 10 mg by mouth once daily. - ibuprofen (MOTRIN) 600 mg tablet Take 600 mg by mouth every 6 hours as needed. - oxyCODONE-acetaminophen (PERCOCET) 5-325 mg tablet Take 1 tablet by mouth every 4 hours as needed. - traMADol (ULTRAM) 50 mg tablet Take 50 mg by mouth every 6 hours as needed. - HYDROCODONE/ACETAMINOPHEN (NORCO ORAL) Take by mouth. - cyclobenzaprine (FLEXERIL) 10 mg tablet Take 10 mg by mouth daily at bedtime. - diphenhydrAMINE (SLEEP AID, DIPHENHYDRAMINE,) 50 mg capsule Take 50 mg by mouth every 6 hours as needed. - levETIRAcetam (KEPPRA) 500 mg tablet Take 0.5 tablets by mouth twice daily. - rizatriptan (MAXALT) 10 mg tablet Take 1 tablet by mouth as needed for Migraine Headache (see administration instructions) (at onset of headache. May repeat after 2 hours.). - norethindrone-e.estradiol- iron (LO LOESTRIN FE) 1 mg-10 mcg(24) /10 mcg (2) ORAL Tab Take 1 tablet by mouth once daily. Problem List As Of Date 11/11/2022 Noted Resolved UTI (Lower Urinary Tract Infection) [N39.0] 09/20/2009 Calculus of Kidney [N20.0] 09/20/2009 Seizure disorder [G40.909] 09/20/2009 07/15/2011 Viral Warts due to HPV [B07.9] 09/20/2009 Transient alteration of awareness [R40.4] 04/01/2011 11/21/2015 Reactive hypoglycemia [E16.1] 06/17/2011 Hirsutism [L68.0] 06/17/2011 Irregular menses [N92.6] 06/17/2011 Right flank pain [R10.9] 04/18/2015 Lower urinary tract symptoms (LUTS) [R39.9] 04/18/2015 Breast pain [N64.4] (more content not included)... Normal [facility] Determination of erythrocyte mean corpuscular volume (MCV)Ordered By: Rob Pedraza on 11-11-2022 MCV (RBC) [Entitic vol] 96.0 fL 81-99 [facility] Hematocrit Auto (Bld) [Volum e fraction]Ordered By: Rob Pedraza on 11-11-2022 Hematocrit (Bld) [Volume fraction] 40.5 % 37-47 [facility] Ketones Test strip Ql (U)Ord ered By: Rob Pedraza on 11-11-2022 Ketones Ql (U) Negative Negative [facility] Laboratory - Chemistry and C hemistry - challengeOrdered By: Rob Pedraza on 11-11-2022 ALP [Catalytic activity/Vol] 55 U/L 45-117 [facility] ALT [Catalytic activity/Vol] 22 U/L 13-56 [facility] CO2 [Moles/Vol] 22.0 mmol/L 21.0-32.0 [facility] Globulin (S) [Mass/Vol] 4.0 g/dL 2.2-4.2 [facility] Urea nitrogen/Creatinine [Mass ratio] 11.9 mg/mg 10-20 [facility] Laboratory - Hematology and Cell countsOrdered By: Rob Pedraza on 11-11-2022 Erythrocyte distribution width (RBC) [Entitic vol] 46.1 fL 35.1-43.9 [facility] Erythrocyte distribution width (RBC) [Ratio] 13.1 % 11.6-14.6 [facility] Immature granulocytes/100 WBC (Bld) 0.300 % 0.0-0.9 [facility] Comment on above: IG% - Immature Granu locytes (promyelocytes, myelocytes and metamyelocytes) > 1% indicates that a LEFT SHIFT is Present. MCH (RBC) [Entitic mass] 30.1 pg 27.0-32.0 [facility] Nucleated RBC/100 WBC (Bld) [Ratio] 0 % 0-5 [facility] MCHC Auto (RBC) [Mass/Vol]Or dered By: Rob Pedraza on 11-11-2022 MCHC (RBC) [Mass/Vol] 31.4 g/dL 32-36 [facility] Mucus LM Ql (Urine sed)Order ed By: Rob Pedraza on 11-11-2022 Mucus Ql (Urine sed) 0 SEEN /hpf [facility] Nitrite Test strip Ql (U)Ord ered By: Rob Pedraza on 11-11-2022 Nitrite Ql (U) Negative Negative [facility] No Panel InformationOrdered By: Rob Pedraza on 11-11-2022 Estimated Creatinine Clearance Calc 80.72 ml/min [facility] Estimated GFR (MDRD) Amer 99 mL/min >60 [facility] Comment on above: GFR Calc Estimated GFR (MDRD) Non-Af Amer 82 mL/min >60 [facility] Comment on above: Non- GFR Calc Platelets bldOrdered By: Sandhya Pedraza on 11-11-2022 Platelets (Bld) [#/Vol] 233 10*3/uL 150-450 [facility] Protein Test strip Ql (U)Ord ered By: Rob Pedraza on 11-11-2022 Protein Ql (U) Negative Negative [facility] Serum or plasma albumin len urement (mass/volume)Ordered By: Rob Pedraza on 11-11-2022 Albumin [Mass/Vol] 3.8 g/dL 3.2-5.0 [facility] Serum or plasma albumin/glob ulin mass ratioOrdered By: Rob Pedraza on 11-11-2022 Albumin/Globulin [Mass ratio] 1.0 {ratio} 0.9-2.4 [facility] Serum or plasma calcium len urement (mass/volume)Ordered By: Rob Pedraza on 11-11-2022 Calcium [Mass/Vol] 9.0 mg/dL 8.5-10.1 [facility] Serum or plasma choriogonado tropin detectionOrdered By: Rob Pedraza on 11-11-2022 HCG ( test) Ql [address] mIU/mL <4 [facility] Comment on above: hCG levels with Gest ational AgeGestational Age hCG mIU/mL (IU/L)0.2 - 1 week 5 - 501-2 weeks 50 - 5002-3 weeks 100 - 49832-2 weeks 500 - 187113-2 weeks 1000 - 690692-9 weeks 81257 - 100,0006-8 weeks 83143 - 200,0002-3 months 72493 - 100,000 Serum or plasma creatinine m easurement (mass/volume)Ordered By: Rob Pedraza on 11-11-2022 Creatinine [Mass/Vol] 0.84 mg/dL 0.55-1.02 [facility] Comment on above: The validity of the calculated GFR & GFRAA in patients over 70 years has not been determined. Clinical correlation is essential. Serum or plasma urea nitroge n measurement (mass/volume)Ordered By: Rob Pedraza on 11-11-2022 Urea nitrogen [Mass/Vol] 10 mg/dL 7-18 [facility] Squamous epithelial cells de tection in urine sediment by light microscopyOrdered By: Rob Pedraza on 11-11-2022 Epithelial cells.squamous LM Ql (Urine sed) 0-5 SEEN /hpf 5-10 [facility] Thin prep Papanicolaou smear with manual screeningOrdered By: Rob Pedraza on 11-11-2022 Thin prep Papanicolaou smear with manual screening 11 U/L 15-37 [facility] Thin prep Papanicolaou smear with manual screening 6 5-15 [facility] Urine blood detectionOrdered By: Rob Pedraza on 11-11-2022 RBC Ql (U) 10 /ul Negative [facility] RBC Ql (U) 0 SEEN /hpf 0-5 [facility] Urine clarityOrdered By: Sandhya Pedraza on 11-11-2022 Clarity (U) Clear Clear [facility] Urine color determinationOrd ered By: Rob Pedraza on 11-11-2022 Color (U) Yellow Yellow [facility] Urine glucose detectionOrder ed By: Rob Pedraza on 11-11-2022 Glucose Ql (U) Normal mg/dl Normal [facility] Urine leukocyte esterase det ection by dipstickOrdered By: Rob Pedraza on 11-11-2022 Leukocyte esterase Test strip Ql (U) Negative Negative [facility] Urine pHOrdered By: Rob heart on 11-11-2022 pH (U) 7.0 [pH] 5.0 - 8.0 [facility] Urine sediment bacteria coun t by microscopy (number/high power field)Ordered By: Rob Pedraza on 11-11-2022 Bacteria LM.HPF (Urine sed) [#/Area] 0 /[HPF] None Seen [facility] Urine specific gravity measu rementOrdered By: Rob Pedraza on 11-11-2022 Specific gravity (U) [Rel density] 1.010 1.002-1.03 0 [facility] Urobilinogen Auto test strip Ql (U)Ordered By: Rob Pedraza on 11-11-2022 Urobilinogen Ql (U) Normal mg/dl Normal [facility] Absolute lymphocyte countOrd ered By: Henry Barreto on 11-09-2022 Lymphocytes Auto (Unsp spec) [#/Vol] 2.70 10*3/uL 0.83-4.51 [facility] Basophil percentageOrdered B y: Henry Barreto on 11-09-2022 Basophils/100 WBC (Bld) 0.5 % 0-1 [facility] Eosinophils/100 WBC (Bld) 1.3 % 0-5 [facility] Neutrophils (Bld) [#/Vol] 5.6 10*3/uL 2.0-7.7 [facility] Neutrophils/100 WBC (Bld) 61.4 % 47-70 [facility] WBC (Bld) [#/Vol] 9.1 10*3/uL 4.4-11.0 [facility] Basophil percentage 0-5 SEEN /hpf 0-5 [facility] Bilirubin Test strip Ql (U)O rdered By: Henry Barreto on 11-09-2022 Bilirubin Ql (U) Negative Negative [facility] Blood erythrocytes count (nu mber/volume)Ordered By: Henry Barreto on 11-09-2022 RBC (Bld) [#/Vol] 4.02 10*6/uL 4.2-5.4 [facility] Blood hemoglobin measurement (mass/volume)Ordered By: Henry Barreto on 11-09-2022 Hemoglobin (Bld) [Mass/Vol] 12.1 g/dL 12.0-15.0 [facility] Blood lymphocytes/100 leukoc ytesOrdered By: Henry Rameshbart on 11-09-2022 Lymphocytes/100 WBC (Bld) 29.6 % 19-41 [facility] Blood monocytes/100 leukocyt esOrdered By: Henry Rameshbart on 11-09-2022 Monocytes/100 WBC (Bld) 6.8 % 0-10 [facility] Blood platelet mean volumeOr dered By: Henry Rameshbart on 11-09-2022 Platelet mean volume (Bld) [Entitic vol] 10.0 fL 6.2-12.0 [facility] CNPNon 11-09-2022 CNPN Telephone (OBGYWM) -- KENDALL VASQUES ([id number]) 1985 F Date Time Provider Department 11/09/22 CHARLOTTE GARCIA During your visit today, we recorded the following information about you: Charlotte Garcia MD 11/09/2022 11:17 PM Signed Pt in [facility] ER 11/09/22 for spotting and RLQ pain. 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 HCG quant 7,926. Serial HCG quants are rising appropriately. She will need repeat US in 2 weeks at time of appointment Noe Francisco RN 11/10/2022 9:30 AM Signed Patient notified. No available appointments on 11/24 at time of her NOB. Scheduled u/s for 11/21/22. Please file order. Charlotte Merritt RN, MD 11/10/2022 10:05 AM Signed Filed thank you Allergies As of Date: 11/09/2022 Noted Allergy Reaction ADHESIVE 06/17/2011 2 - Rash CODEINE 09/20/2009 4 - Hives 11 - Vomiting FLAGYL (METRONIDAZOLE) 09/27/2021 14 - Other: See Comments Comments: SZ MORPHINE 05/23/2022 4 - Hives NSAIDS (NON-STEROIDAL ANTI-INFLAM*09/27/2021 14 - Other: See Comments Comments: Stage 2 kidney dx TOPAMAX (TOPIRAMATE) 09/27/2021 8 - GI Upset Date Reviewed: 05/23/2022 Reviewed by: Sarai Chin RN - Fully Assessed Reason for Visit: Appointment [186] Primary Visit Diagnosis:Spotting in early [O26.859] Order(s):[facility] [[id number]] Order #: [id number]: 1 FUTURE Prescriptions as of 11/10/2022 - ondansetron orally disintegrating (ZOFRAN ODT) 4 mg disintegrating tablet Take 1 tablet by mouth every 6 hours as needed for nausea/vomiting. - tamsulosin (FLOMAX) 0.4 mg Take 1 capsule by mouth daily at bedtime for 7 days. - omeprazole (PRILOSEC) 20 mg capsule Take 1 capsule by mouth once daily for 28 days. - diphenhydrAMINE (BENADRYL) 25 mg capsule Take 1 capsule by mouth every 6 hours as needed (with Compazine). - gabapentin (NEURONTIN) 100 mg capsule Take 1 capsule by mouth once daily. - tiZANidine HCl (ZANAFLEX) 4 mg capsule Take 4 mg by mouth three times daily as needed for Muscle Spasm. - levETIRAcetam (KEPPRA) 500 mg tablet Take 500 mg by mouth twice daily. - citalopram hydrobromide (CELEXA) 10 mg tablet Take 10 mg by mouth once daily. - ibuprofen (MOTRIN) 600 mg tablet Take 600 mg by mouth every 6 hours as needed. - oxyCODONE-acetaminophen (PERCOCET) 5-325 mg tablet Take 1 tablet by mouth every 4 hours as needed. - traMADol (ULTRAM) 50 mg tablet Take 50 mg by mouth every 6 hours as needed. - HYDROCODONE/ACETAMINOPHEN (NORCO ORAL) Take by mouth. - cyclobenzaprine (FLEXERIL) 10 mg tablet Take 10 mg by mouth daily at bedtime. - diphenhydrAMINE (SLEEP AID, DIPHENHYDRAMINE,) 50 mg capsule Take 50 mg by mouth every 6 hours as needed. - levETIRAcetam (KEPPRA) 500 mg tablet Take 0.5 tablets by mouth twice daily. - rizatriptan (MAXALT) 10 mg tablet Take 1 tablet by mouth as needed for Migraine Headache (see administration instructions) (at onset of headache. May repeat after 2 hours.). - norethindrone-e.estradiol- iron (LO LOESTRIN FE) 1 mg-10 mcg(24) /10 mcg (2) ORAL Tab Take 1 tablet by mouth once daily. Problem List As Of Date 11/09/2022 Noted Resolved UTI (Lower Urinary Tract Infection) [N39.0] 09/20/2009 Calculus of Kidney [N20.0] 09/20/2009 Seizure disorder [G40.909] 09/20/2009 07/15/2011 Viral Warts due to HPV [B07.9] 09/20/2009 Transient alteration of awareness [R40.4] 04/01/2011 11/21/2015 Reactive hypoglycemia [E16.1] 06/17/2011 Hirsutism [L68.0] 06/17/2011 Irregular menses [N92.6] 06/17/2011 Right flank pain [R10.9] 04/18/2015 Lower urinary tract symptoms (LUTS) [R39.9] 04/18/2015 Breast pain [N64.4] 04/26/2015 Fever [R50.9] 03/19/2016 Urinary tract infection with hematuria [N39.0, *03/19/2016 12/25/2018 Vision loss of right eye [H54.61] 12/27/2016 Left amblyopia [H53.002] 12/27/2016 Encounter Status:Closed by NOE FRANCISCO RN on 11/10/22 Normal [facility] Determination of erythrocyte mean corpuscular volume (MCV)Ordered By: Henry Barreto on 11-09-2022 MCV (RBC) [Entitic vol] 95.8 fL 81-99 [facility] Hematocrit Auto (Bld) [Volum e fraction]Ordered By: Henry Barreto on 11-09-2022 Hematocrit (Bld) [Volume fraction] 38.5 % 37-47 [facility] Ketones Test strip Ql (U)Ord ered By: Henry Barreto on 11-09-2022 Ketones Ql (U) 15 mg/dl Negative [facility] Laboratory - Hematology and Cell countsOrdered By: Henry Barreto on 11-09-2022 Erythrocyte distribution width (RBC) [Entitic vol] 46.3 fL 35.1-43.9 [facility] Erythrocyte distribution width (RBC) [Ratio] 13.0 % 11.6-14.6 [facility] Immature granulocytes/100 WBC (Bld) 0.400 % 0.0-0.9 [facility] Comment on above: IG% - Immature Granu locytes (promyelocytes, myelocytes and metamyelocytes) > 1% indicates that a LEFT SHIFT is Present. MCH (RBC) [Entitic mass] 30.1 pg 27.0-32.0 [facility] Nucleated RBC/100 WBC (Bld) [Ratio] 0 % 0-5 [facility] MCHC Auto (RBC) [Mass/Vol]Or dered By: Henry Barreto on 11-09-2022 MCHC (RBC) [Mass/Vol] 31.4 g/dL 32-36 [facility] Mucus LM Ql (Urine sed)Order ed By: Henry Barreto on 11-09-2022 Mucus Ql (Urine sed) 0 SEEN /hpf [facility] Nitrite Test strip Ql (U)Ord ered By: Henry Barreto on 11-09-2022 Nitrite Ql (U) Negative Negative [facility] Platelets bldOrdered By: Bita Barreto on 11-09-2022 Platelets (Bld) [#/Vol] 236 10*3/uL 150-450 [facility] Protein Test strip Ql (U)Ord ered By: Henry Barreto on 11-09-2022 Protein Ql (U) Negative Negative [facility] Serum or plasma choriogonado tropin detectionOrdered By: Henry Barreto on 11-09-2022 HCG ( test) Ql 7926 mIU/mL <4 [facility] Comment on above: Critical Result(s) C alled at: 18:18:23 11/09/2022 by: ORQUIDEA JIANG. to jony hernandez rn immunology Results read back by same.hCG levels with Gestational AgeGestational Age hCG mIU/mL (IU/L)0.2 - 1 week 5 - 501-2 weeks 50 - 5002-3 weeks 100 - 45963-1 weeks 500 - 786786-0 weeks 1000 - 736503-2 weeks 33127 - 100,0006-8 weeks 37116 - 200,0002-3 months 27229 - 100,000 Squamous epithelial cells de tection in urine sediment by light microscopyOrdered By: Henry Barreto on 11-09-2022 Epithelial cells.squamous LM Ql (Urine sed) 5-10 SEEN /hpf 5-10 [facility] Urine blood detectionOrdered By: Henry Barreto on 11-09-2022 RBC Ql (U) 150 /ul Negative [facility] RBC Ql (U) 0 SEEN /hpf 0-5 [facility] Urine clarityOrdered By: Bita Barreto on 11-09-2022 Clarity (U) Sl. Cloudy Clear [facility] Urine color determinationOrd ered By: Henry Barreto on 11-09-2022 Color (U) Yellow Yellow [facility] Urine glucose detectionOrder ed By: Henry Barreto on 11-09-2022 Glucose Ql (U) Normal mg/dl Normal [facility] Urine leukocyte esterase det ection by dipstickOrdered By: Henry Barreto on 11-09-2022 Leukocyte esterase Test strip Ql (U) Negative Negative [facility] Urine pHOrdered By: Henry nieto on 11-09-2022 pH (U) 6.0 [pH] 5.0 - 8.0 [facility] Urine sediment bacteria coun t by microscopy (number/high power field)Ordered By: Henry Barreto on 11-09-2022 Bacteria LM.HPF (Urine sed) [#/Area] 1 /[HPF] None Seen [facility] Urine specific gravity measu rementOrdered By: Henry Barreto on 11-09-2022 Specific gravity (U) [Rel density] 1.025 1.002-1.03 0 [facility] Urobilinogen Auto test strip Ql (U)Ordered By: Henry Barreto on 11-09-2022 Urobilinogen Ql (U) Normal mg/dl Normal [facility] B-HCG SerPl-aCncon 3 HCG.beta subunit Qn 4393.0 m[IU]/mL High <5.0 [facility] Comment on above: Order Comment: Speci men Type: BLOOD SPECIMENOrdering Facility: [facility] Address: [address] [place] [address] Result Comment: BARB TITATIVE HCG NORMAL RANGES Weeks of Gestation (Weeks Since LMP) 3 Weeks (5.8-71.2 mIU/mL) 4 Weeks (9.5-750 mIU/mL) 5 Weeks (217-7138 mIU/mL) 6 Weeks (158-47383 mIU/mL) 7 Weeks (3697-351380 mIU/mL) 8 Weeks (69406-486350 mIU/mL) 9 Weeks (48629-698167 mIU/mL) 10 Weeks (89986-588874 mIU/mL) 12 Weeks (48430-795478 mIU/mL) Referenced to 4th IS of NIBSC Performed By: #### 2 1198-7 ####[facility] LABCLIA [id number] [place] [address] [place] B-HCG SerPl-aCncon 3 HCG.beta subunit Qn 1646.0 m[IU]/mL High <5.0 [facility] Comment on above: Order Comment: Speci men Type: BLOOD SPECIMENOrdering Facility: [facility] Address: [address] [place] [address] Result Comment: BARB TITATIVE HCG NORMAL RANGES Weeks of Gestation (Weeks Since LMP) 3 Weeks (5.8-71.2 mIU/mL) 4 Weeks (9.5-750 mIU/mL) 5 Weeks (217-7138 mIU/mL) 6 Weeks (158-04993 mIU/mL) 7 Weeks (3697-110661 mIU/mL) 8 Weeks (61370-009621 mIU/mL) 9 Weeks (45633-120326 mIU/mL) 10 Weeks (64543-690108 mIU/mL) 12 Weeks (54359-426669 mIU/mL) Referenced to 4th IS of NIBSC Performed By: #### 2 1198-7 ####[facility] BETO [id number] [facility] [id number] [id number] [place] Aide 11-05-2022 CNPN Telephone (OBGYWM) -- KENDALL VASQUES ([id number]) 1985 F Date Time Provider Department 11/05/22 COLLEEN MAJOR OBGYWM During your visit today, we recorded the following information about you: Cassy Meneses RN 11/05/2022 8:32 AM Signed LMP 10/05/22 Approximately 4w3d Patient was scheduled with SW to establish care for fertility issues on 11/24. Patient called to report that she took x1 UPT today. Had one hour of brown/dark blood on Thursday. Patient had requested her records from [place] one month ago, but we haven't received them. She is calling them again today. Patient is feeling anxious. She has stage 3 kidney disease. She lost her daughter at 24 weeks due to a placental abruption and kidney infection. She plans to ask Dr. Myers if she should start ASA. I changed her 11/24 with SW to a New OB and scheduled her PNOB for 11/17. Do you have any further recommendations for her? Thank you. Colleen Dunbar RN, MD 11/05/2022 8:44 AM Signed No I would not start ASA at this time as that is not a recommendation unless she has other medical co morbidities that would indicate a need for this. Can do quants if she would like that. Ok to keep appts as scheduled. Noe Francisco RN 11/05/2022 9:52 AM Signed Patient notified. Does want quants. Please file. She does have appointment with her campaign analyst on 11/13/22. Leave open for 11/05 and 11/07 hcg quant results. Colleen Corrales RN, MD 11/05/2022 11:18 AM Signed ordered Karolyn Vidal RN 11/05/2022 1:34 PM Addendum When we call patient back with quant results, please let her know that we need notes from her Product Safety Officer from upcoming appointment Cassy Meneses RN 11/13/2022 9:27 AM Signed Received notes from Product Safety Officer Dr. Timmy Mariano @ [facility]. Placed in PNOB mailbox.Copy also sent for scanning. Cassy Meneses RN Allergies As of Date: 11/05/2022 Noted Allergy Reaction ADHESIVE 06/17/2011 2 - Rash CODEINE 09/20/2009 4 - Hives 11 - Vomiting FLAGYL (METRONIDAZOLE) 09/27/2021 14 - Other: See Comments Comments: SZ MORPHINE 05/23/2022 4 - Hives NSAIDS (NON-STEROIDAL ANTI-INFLAM*09/27/2021 14 - Other: See Comments Comments: Stage 2 kidney dx TOPAMAX (TOPIRAMATE) 09/27/2021 8 - GI Upset Date Reviewed: 05/23/2022 Reviewed by: Sarai Chin, VITA - Fully Assessed Reason for Visit: Transfer of Care [Other] Primary Visit Diagnosis:Bleeding in early [O20.9] Other Visit Diagnosis:Back pain in [O99.891, M54.9] Order(s):HCG QUANTITATIVE [SQHCGQT] Order #: [id number] STANDING Prescriptions as of 11/13/2022 - ondansetron orally disintegrating (ZOFRAN ODT) 4 mg disintegrating tablet Take 1 tablet by mouth every 6 hours as needed for nausea/vomiting. - tamsulosin (FLOMAX) 0.4 mg Take 1 capsule by mouth daily at bedtime for 7 days. - omeprazole (PRILOSEC) 20 mg capsule Take 1 capsule by mouth once daily for 28 days. - diphenhydrAMINE (BENADRYL) 25 mg capsule Take 1 capsule by mouth every 6 hours as needed (with Compazine). - gabapentin (NEURONTIN) 100 mg capsule Take 1 capsule by mouth once daily. - tiZANidine HCl (ZANAFLEX) 4 mg capsule Take 4 mg by mouth three times daily as needed for Muscle Spasm. - levETIRAcetam (KEPPRA) 500 mg tablet Take 500 mg by mouth twice daily. - citalopram hydrobromide (CELEXA) 10 mg tablet Take 10 mg by mouth once daily. - ibuprofen (MOTRIN) 600 mg tablet Take 600 mg by mouth every 6 hours as needed. - oxyCODONE-acetaminophen (PERCOCET) 5-325 mg tablet Take 1 tablet by mouth every 4 hours as needed. - traMADol (ULTRAM) 50 mg tablet Take 50 mg by mouth every 6 hours as needed. - HYDROCODONE/ACETAMINOPHEN (NORCO ORAL) Take by mouth. - cyclobenzaprine (FLEXERIL) 10 mg tablet Take 10 mg by mouth daily at bedtime. - diphenhydrAMINE (SLEEP AID, DIPHENHYDRAMINE,) 50 mg capsule Take 50 mg by mouth every 6 hours as needed. - levETIRAcetam (KEPPRA) 500 mg tablet Take 0.5 tablets by mouth twice daily. - rizatriptan (MAXALT) 10 mg tablet Take 1 tablet by mouth as needed for Migraine Headache (see administration instructions) (at onset of headache. May repeat after 2 hours.). - norethindrone-e.estradiol- iron (LO LOESTRIN FE) 1 mg-10 mcg(24) /10 mcg (2) ORAL Tab Take 1 tablet by mouth once daily. Problem List As Of Date 11/05/2022 Noted Resolved UTI (Lower Urinary Tract Infection) [N39.0] 09/20/2009 Calculus of Kidney [N20.0] 09/20/2009 Seizure disorder [G40.909] 09/20/2009 07/15/2011 Viral Warts due to HPV [B07.9] 09/20/2009 Transient alteration of awareness [R40.4] 04/01/2011 11/21/2015 Reactive hypoglycemia [E16.1] 06/17/2011 Hirsutism [L68.0] 06/17/2011 Irregular menses [N92.6] 06/17/2011 Right flank pain [R10.9] 04/18/2015 Lower urinary tract symptoms (LUTS) [R39.9] 04/18/2015 Breast pain [N64.4] 04/26/2015 Fever [R (more content not included)... Normal [facility] Basophil percentageOrdered B y: Jose Daniel Myers on 10-08-2022 WBC (Bld) [#/Vol] 6.7 10*3/uL 4.4-11.0 [facility] Blood erythrocytes count (nu mber/volume)Ordered By: Jose Daniel Myers on 10-08-2022 RBC (Bld) [#/Vol] 4.29 10*6/uL 4.2-5.[address] [facility] Blood hemoglobin measurement (mass/volume)Ordered By: Jose Daniel Myers on 10-08-2022 Hemoglobin (Bld) [Mass/Vol] 12.9 g/dL 12.0-15.0 [facility] Blood platelet mean volumeOr dered By: Jose Daniel Myers on 10-08-2022 Platelet mean volume (Bld) [Entitic vol] 10.2 fL 6.2-12.0 [facility] Determination of erythrocyte mean corpuscular volume (MCV)Ordered By: Jose Daniel Myers on 10-08-2022 MCV (RBC) [Entitic vol] 96.0 fL 81-99 [facility] Hematocrit Auto (Bld) [Volum e fraction]Ordered By: Jose Daniel Myers on 10-08-2022 Hematocrit (Bld) [Volume fraction] 41.2 % 37-47 [facility] Laboratory - Hematology and Cell countsOrdered By: Jose Daniel Myers on 10-08-2022 Erythrocyte distribution width (RBC) [Entitic vol] 45.7 fL 35.1-43.9 [facility] Erythrocyte distribution width (RBC) [Ratio] 12.9 % 11.6-14.6 [facility] MCH (RBC) [Entitic mass] 30.1 pg 27.0-32.0 [facility] MCHC Auto (RBC) [Mass/Vol]Or dered By: Jose Daniel Myers on 10-08-2022 MCHC (RBC) [Mass/Vol] 31.3 g/dL 32-36 [facility] Platelets bldOrdered By: Oneil Myers on 10-08-2022 Platelets (Bld) [#/Vol] 226 10*3/uL 150-450 [facility] Basophil percentageOrdered B y: Jose Daniel Myers on 08-06-2022 Testosterone [Mass/Vol] 31 ng/dL 8-60 [facility] Basophil percentageOrdered B y: Dr. Myers on 08-06-2022 WBC (Bld) [#/Vol] 7.1 10*3/uL 4.4-11.0 [facility] Blood erythrocytes count (nu mber/volume)Ordered By: Dr. Myers on 08-06-2022 RBC (Bld) [#/Vol] 4.12 10*6/uL 4.2-5.[address] [facility] Blood hemoglobin measurement (mass/volume)Ordered By: Dr. Myers on 08-06-2022 Hemoglobin (Bld) [Mass/Vol] 12.3 g/dL 12.0-15.0 [facility] Blood platelet mean volumeOr dered By: Dr. Myers on 08-06-2022 Platelet mean volume (Bld) [Entitic vol] 11.1 fL 6.2-12.0 [facility] Determination of erythrocyte mean corpuscular volume (MCV)Ordered By: Dr. Myers on 08-06-2022 MCV (RBC) [Entitic vol] 96.6 fL 81-99 [facility] Free testosterone percentage Ordered By: Jose Daniel Myers on 08-06-2022 Testosterone Free/Testosterone.total [Mass fraction] 1.27 % 0.50-2.80 [facility] Hematocrit Auto (Bld) [Volum e fraction]Ordered By: Dr. Myers on 08-06-2022 Hematocrit (Bld) [Volume fraction] 39.8 % 37-47 [facility] Laboratory - Chemistry and C hemistry - challengeOrdered By: Dr. Myers on 08-06-2022 Free T4 [Mass/Vol] 0.89 ng/dL 0.76-1.46 [facility] Laboratory - Hematology and Cell countsOrdered By: Dr. Myers on 08-06-2022 Erythrocyte distribution width (RBC) [Entitic vol] 44.2 fL 35.1-43.9 [facility] Erythrocyte distribution width (RBC) [Ratio] 12.4 % 11.6-14.6 [facility] MCH (RBC) [Entitic mass] 29.9 pg 27.0-32.0 [facility] MCHC Auto (RBC) [Mass/Vol]Or dered By: Dr. Myers on 08-06-2022 MCHC (RBC) [Mass/Vol] 30.9 g/dL 32-36 [facility] No Panel InformationOrdered By: Dr. Myers on 08-06-2022 Follicle Stimulating Hormone 4.0 mIU/mL [facility] Comment on above: NORMAL REFERENCE RAN GES FEMALE FOLLICULAR 2.3 - 12.6 mIU/mL MID-CYCLE PEAK 5.2 - 17.5 mIU/mL LUTEAL 1.7 - 12.9 mIU/mL POST-MENOPAUSAL ON MHT 5.9 - 72.8 mIU/mL NOT ON MHT 12.7 - 132.2 mlU/mL MALE 0.7 - 10.8 mIU/mL Luteinizing Hormone 4.8 mIU/mL [facility] Comment on above: NORMAL REFERENCE RAN [facility] FEMALE FOLLICULAR 1.9 - 26.2 mIU/mL MID-CYCLE PEAK 22.8 - 76.1 mIU/mL LUTEAL 0.6 - 16.6 mIU/mL POST-MENOPAUSAL ON MHT 1.1 - 52.4 mIU/mL NOT ON MHT 8.6 - 61.8 mIU/mL MALE 1.2 - 10.6 mIU/mL Parathyroid Hormone (Intact) 28.5 pg/mL 18.4-80.1 [facility] Thyroid Stimulating Hormone (TSH) 0.45 uIU/mL 0.358-3.74 [facility] Vitamin D 25-Hydroxy 64.6 ng/mL [facility] Comment on above: Vitamin D 25(OH) Sta tus Range Deficiency <20 ng/mL (50nmol/L) Insufficiency 20 - 30 ng/mL (50 - 75 nmol/L) Sufficiency 30 - 100 ng/mL (75 - 250 nmol/L) Toxicity >100 ng/mL (>250 nmol/L) Platelets bldOrdered By: Dr. Myers on 08-06-2022 Platelets (Bld) [#/Vol] 204 10*3/uL 150-450 [facility] Serum or plasma cortisol jaquan surement (mass/volume)Ordered By: Dr. Myers on 08-06-2022 Cortisol [Mass/Vol] 15.80 ug/dL 3.44-22.45 [facility] Comment on above: Adult (AM) 5.27 - 22 .45 ug/dL Adult (PM) 3.44 - 16.76 ug/dLPlease note revised CORTISOL reference range effective 2019. Serum or plasma estradiol (E 2) measurement (mass/volume)Ordered By: Dr. Myers on 08-06-2022 E2 [Mass/Vol] 185.5 pg/mL [facility] Comment on above: NORMAL REFERENCE RAN GES FEMALE FOLLICULAR 21.4 - 164.8 pg/mL MID-CYCLE PEAK 49.9 - 367.2 pg/mL LUTEAL 40.2 - 259.0 pg/mL POST-MENOPAUSAL ON MHT <11.0 - 462.1 pg/mL NOT ON MHT <11.0 - 58.3 pg/mL MALE <11.0 - 52.5 pg/mL NOTE:[employer] HAS CONFIRMED THE DRUG FULVETRANT (FASLODEX) MAY CAUSE FALSELY ELEVATED ESTRADIOL RESULTS WHEN USING THIS TEST METHOD. IF PATIENT IS TAKING FULVESTRANT AN ALTERNATIVE METHOD SHOULD BE USED TO DETERMINE ESTRADIOL CONCENTRATION. Serum or plasma testosterone free measurement (mass/volume)Ordered By: Jose Daniel Myers on 08-06-2022 Testosterone Free [Mass/Vol] 0.39 ng/dL 0.10-0.85 [facility] Serum or plasma thyroperoxid ase antibody assay (units/volume)Ordered By: Jose Daniel Myers on 08-06-2022 TPO Ab Qn 11 [IU]/mL 0-34 [facility] Comment on above: Performed at: [address] [id number] Director: Gume Sharpe PhD, Phone: [phone] at: [facility] [id number] Director: Susannah Esqueda MD, Phone: [phone] Whole blood hemoglobin A1c/t otal hemoglobin ratio (mass fraction)Ordered By: Dr. Myers on 08-06-2022 HbA1c (Bld) [Mass fraction] 4.6 % 3.8-5.6 [facility] Comment on above: Normal < 5.7 % Predi abetic 5.7 - 6.4 % Diabetic >or= 6.5 % Please note range changes. CBCon 07-03-2022 ABSOLUTE BAS 0.0 10*3/uL Normal 0.0-0.2 [facility] Comment on above: Performed By: #### A CBC, RENF, MG #### Testing performed at [address] [place] [address] ABSOLUTE EOS 0.1 10*3/uL Normal 0.0-0.7 [facility] Comment on above: Performed By: #### A CBCLAYO MG #### Testing performed at [address] [place] [address] ABSOLUTE NEUTROPHIL COUNT 2.8 10*3/uL Normal 1.4-6.5 [facility] Comment on above: Performed By: #### A CBCLAYO MG #### Testing performed at [address] [place] [address] Basophils/100 WBC (Bld) 0.8 % Normal 0.0-2.0 [facility] Comment on above: Performed By: #### A CBCLAYO MG #### Testing performed at [address] [place] [address] DTYPE AUTO DIFF Normal [facility] Comment on above: Performed By: #### A CBCLAYO MG #### Testing performed at [address] [place] [address] Eosinophils/100 WBC (Bld) 2.6 % Normal 0.0-11.0 [facility] Comment on above: Performed By: #### A CBCLAYO MG #### Testing performed at [address] [place] [address] Lymphocytes (Bld) [#/Vol] 2.1 10*3/uL Normal 1.2-3.4 [facility] Comment on above: Performed By: #### A CBCLAYO MG #### Testing performed at [address] [place] [address] Lymphocytes/100 WBC (Bld) 37.9 % Normal 20.0-55.0 [facility] Comment on above: Performed By: #### A CBCLAYO MG #### Testing performed at [address] [place] [address] Monocytes (Bld) [#/Vol] 0.5 10*3/uL Normal 0.0-0.7 [facility] Comment on above: Performed By: #### A CBC, RENF, MG #### Testing performed at [address] [address] Monocytes/100 WBC (Bld) 8.4 % Normal 0.0-10.0 [facility] Comment on above: Performed By: #### A CBCLAYO MG #### Testing performed at [address] [address] Neutrophils/100 WBC (Bld) 50.3 % Normal 37.0-75.0 [facility] Comment on above: Performed By: #### A CBCLAYO MG #### Testing performed at [address] [address] Erythrocyte distribution width (RBC) [Ratio] 13.2 % Normal 11.5-14.5 [facility] Comment on above: Performed By: #### A LAYO SCHMITZ MG #### Testing performed at [address] [address] Hematocrit (Bld) [Volume fraction] 34.9 % Low 36.0-48.0 [facility] Comment on above: Performed By: #### A LAYO SCHMITZ MG #### Testing performed at [address] [address] Hemoglobin (Bld) [Mass/Vol] 11.3 g/dL Low 12.0-16.0 [facility] Comment on above: Performed By: #### A LAYO SCHMITZ MG #### Testing performed at [address] [address] MCH (RBC) [Entitic mass] 30.6 pg Normal 26.0-35.0 [facility] Comment on above: Performed By: #### A CBCLAYO MG #### Testing performed at [address] [address] MCHC (RBC) [Mass/Vol] 32.4 g/dL Normal 27.0-37.0 [facility] Comment on above: Performed By: #### A CBCLAYO MG #### Testing performed at [address] [address] MCV (RBC) [Entitic vol] 94.7 fL Normal 80.0-100.0 [facility] Comment on above: Performed By: #### A CBCLAYO MG #### Testing performed at [address] [address] Platelet mean volume (Bld) [Entitic vol] 9.2 fL Normal 7.4-11.0 [facility] Comment on above: Performed By: #### A CBCLAYO MG #### Testing performed at [address] [address] Platelets (Bld) [#/Vol] 165 10*3/uL Normal 130-400 [facility] Comment on above: Performed By: #### A CBCLAYO MG #### Testing performed at [address] [address] RBC (Bld) [#/Vol] 3.69 10*6/uL Low 4.0-5.4 [facility] Comment on above: Performed By: #### A CBCLAYO MG #### Testing performed at [address] [address] WBC (Bld) [#/Vol] 5.6 10*3/uL Normal 3.6-11.0 [facility] Comment on above: Performed By: #### A CBCLAYO MG #### Testing performed at [address] [address] CMP FASTINGon 07-03-2022 A:G RATIO 1.2 RATIO Low 1.3-2.2 [facility] Comment on above: Performed By: #### A CBCLENARDF MG #### Testing performed at [address] [address] ALBUMIN 3.5 G/dl Normal 3.5-5.0 [facility] Comment on above: Performed By: #### A CBCLENARDF MG #### Testing performed at [address] [address] ALP [Catalytic activity/Vol] 48 U/L Normal 38-126 [facility] Comment on above: Performed By: #### A CBCLENARDF, MG #### Testing performed at [address] [address] ALT [Catalytic activity/Vol] 13 U/L Low 14-54 [facility] Comment on above: Performed By: #### A CBC, RENF, MG #### Testing performed at [address] [address] AST [Catalytic activity/Vol] 15 U/L Normal 15-41 [facility] Comment on above: Performed By: #### A CBC, RENF, MG #### Testing performed at [address] [address] Bilirubin [Mass/Vol] 0.3 mg/dL Normal 0.2-1.2 [facility] Comment on above: Performed By: #### A CBC, RENF, MG #### Testing performed at [address] [address] Calcium [Mass/Vol] 8.6 mg/dL Normal 8.4-10.2 [facility] Comment on above: Performed By: #### A CBC, RENF, MG #### Testing performed at [address] [address] Chloride [Moles/Vol] 112 mmol/L High 98-107 [facility] Comment on above: Performed By: #### A CBC, RENF, MG #### Testing performed at [address] [address] CO2 [Moles/Vol] 26 mmol/L Normal 22-30 [facility] Comment on above: Performed By: #### A CBC, RENF, MG #### Testing performed at [address] [address] Creatinine [Mass/Vol] 0.80 mg/dL Normal 0.52-1.04 [facility] Comment on above: Performed By: #### A CBC, RENF, MG #### Testing performed at [address] [address] EST. GFR, 105 ml/min/1.73sq.m [facility] Comment on above: Performed By: #### A CBC, RENF, MG #### Testing performed at [address] [address] EST. GFR,Non 87 ml/min/1.73sq.m [facility] Comment on above: Performed By: #### A CBC, RENF, MG #### Testing performed at [address] [address] GFR Information Average GFR for 30-3 9 years old = 107. Normal [facility] Comment on above: Result Comment: Scroll Machine Operator zach Kidney disease, GFR = <60. Kidney failure, GFR = <15. The GFR estimate is not adjusted for extreme body surface area or acute process, nor has it been validated for women or ethnic groups other than and . Performed By: #### A CBC, RENF, MG #### Testing performed at [address] [address] Glucose [Mass/Vol] 90 mg/dL Normal 70-100 [facility] Comment on above: Result Comment: NORMAL <100 mg/dL PREDIABETES 101-126 mg/dL DIABETES 126 mg/dL or higher Performed By: #### A CBC, RENF, MG #### Testing performed at [address] [address] Potassium [Moles/Vol] 4.0 mmol/L Normal 3.5-5.1 [facility] Comment on above: Performed By: #### A CBC, RENF, MG #### Testing performed at [address] [address] Protein [Mass/Vol] 6.5 g/dL Normal 6.3-8.2 [facility] Comment on above: Performed By: #### A CBC, RENF, MG #### Testing performed at [address] [address] Sodium [Moles/Vol] 141 mmol/L Normal 136-145 [facility] Comment on above: Performed By: #### A CBC, RENF, MG #### Testing performed at [address] [address] Urea nitrogen [Mass/Vol] 12 mg/dL Normal 7-20 [facility] Comment on above: Performed By: #### A CBC, RENF, MG #### Testing performed at [address] [address] MAGNESIUMon 07-03-2022 Magnesium [Mass/Vol] 1.9 mg/dL Normal 1.6-2.3 [facility] Comment on above: Performed By: #### A CBCLAYO MG #### Testing performed at [address] [address] PROTIMEon 07-03-2022 INR Coag (PPP) [Relative time] 1.08 {INR} Normal 0.85-1.10 [facility] Comment on above: Result Comment: 2.0-3.0 THERAPEUTIC RANGE 2.5-3.5 MECHANICAL VALVE RANGE Performed By: #### A CBCLAYO MG #### Testing performed at [address] [address] PT Coag (PPP) [Time] 14.1 s Normal 11.8-14.4 [facility] Comment on above: Performed By: #### A LAYO SCHMITZ MG #### Testing performed at [address] [address] CBCon 07-02-2022 ABSOLUTE BAS 0.0 10*3/uL Normal 0.0-0.2 [facility] Comment on above: Performed By: #### A CBCLAYO MG #### Testing performed at [address] [address] ABSOLUTE EOS 0.1 10*3/uL Normal 0.0-0.7 [facility] Comment on above: Performed By: #### A LAYO SCHMITZ MG #### Testing performed at [address] [address] ABSOLUTE NEUTROPHIL COUNT 2.6 10*3/uL Normal 1.4-6.5 [facility] Comment on above: Performed By: #### A CBCLAYO MG #### Testing performed at [address] [address] Basophils/100 WBC (Bld) 0.9 % Normal 0.0-2.0 [facility] Comment on above: Performed By: #### A CBCLAYO MG #### Testing performed at [address] [address] DTYPE AUTO DIFF Normal [facility] Comment on above: Performed By: #### A CBCLAYO MG #### Testing performed at [address] [address] Eosinophils/100 WBC (Bld) 2.3 % Normal 0.0-11.0 [facility] Comment on above: Performed By: #### A CBCLAYO MG #### Testing performed at [address] [address] Lymphocytes (Bld) [#/Vol] 1.8 10*3/uL Normal 1.2-3.4 [facility] Comment on above: Performed By: #### A CBCLAYO MG #### Testing performed at [address] [address] Lymphocytes/100 WBC (Bld) 36.7 % Normal 20.0-55.0 [facility] Comment on above: Performed By: #### A CBCLAYO MG #### Testing performed at [address] [address] Monocytes (Bld) [#/Vol] 0.3 10*3/uL Normal 0.0-0.7 [facility] Comment on above: Performed By: #### A CBCLAYO MG #### Testing performed at [address] [address] Monocytes/100 WBC (Bld) 7.2 % Normal 0.0-10.0 [facility] Comment on above: Performed By: #### A CBCLAYO, MG #### Testing performed at [address] [address] Neutrophils/100 WBC (Bld) 52.9 % Normal 37.0-75.0 [facility] Comment on above: Performed By: #### A CBCLAYO MG #### Testing performed at [address] [address] Erythrocyte distribution width (RBC) [Ratio] 13.2 % Normal 11.5-14.5 [facility] Comment on above: Performed By: #### A CBCLAYO, MG #### Testing performed at [address] [address] Hematocrit (Bld) [Volume fraction] 41.9 % Normal 36.0-48.0 [facility] Comment on above: Performed By: #### A CBCLAYO MG #### Testing performed at [address] [address] Hemoglobin (Bld) [Mass/Vol] 13.4 g/dL Normal 12.0-16.0 [facility] Comment on above: Performed By: #### A LAYO SCHMITZ MG #### Testing performed at [address] [address] MCH (RBC) [Entitic mass] 30.2 pg Normal 26.0-35.0 [facility] Comment on above: Performed By: #### A CBCLAYO MG #### Testing performed at [address] [address] MCHC (RBC) [Mass/Vol] 32.0 g/dL Normal 27.0-37.0 [facility] Comment on above: Performed By: #### A CBCLAYO MG #### Testing performed at [address] [address] MCV (RBC) [Entitic vol] 94.3 fL Normal 80.0-100.0 [facility] Comment on above: Performed By: #### A CBCLAYO MG #### Testing performed at [address] [address] Platelet mean volume (Bld) [Entitic vol] 8.2 fL Normal 7.4-11.0 [facility] Comment on above: Performed By: #### A CBCLAYO, MG #### Testing performed at [address] [address] Platelets (Bld) [#/Vol] 203 10*3/uL Normal 130-400 [facility] Comment on above: Performed By: #### A CBCLAYO MG #### Testing performed at [address] [address] RBC (Bld) [#/Vol] 4.44 10*6/uL Normal 4.0-5.4 [facility] Comment on above: Performed By: #### A CBCLAYO, MG #### Testing performed at [address] [address] WBC (Bld) [#/Vol] 4.8 10*3/uL Normal 3.6-11.0 [facility] Comment on above: Performed By: #### A LAYO SCHMITZ MG #### Testing performed at [address] [address] CMP FASTINGon 07-02-2022 A:G RATIO 1.2 RATIO Low 1.3-2.2 [facility] Comment on above: Performed By: #### A LAYO SCHMITZ MG #### Testing performed at [address] [address] ALBUMIN 4.6 G/dl Normal 3.5-5.0 [facility] Comment on above: Performed By: #### A LAYO SCHMITZ MG #### Testing performed at [address] [address] ALP [Catalytic activity/Vol] 61 U/L Normal 38-126 [facility] Comment on above: Performed By: #### A LAYO SCHMITZ MG #### Testing performed at [address] [address] ALT [Catalytic activity/Vol] 16 U/L Normal 14-54 [facility] Comment on above: Performed By: #### A LAYO SCHMITZ MG #### Testing performed at [address] [address] AST [Catalytic activity/Vol] 22 U/L Normal 15-41 [facility] Comment on above: Performed By: #### A LAYO SCHMITZ MG #### Testing performed at [address] [address] Bilirubin [Mass/Vol] 0.8 mg/dL Normal 0.2-1.2 [facility] Comment on above: Performed By: #### A LAYO SCHMITZ MG #### Testing performed at [address] [address] Calcium [Mass/Vol] 10.1 mg/dL Normal 8.4-10.2 [facility] Comment on above: Performed By: #### A LAYO SCHMITZ MG #### Testing performed at [address] [address] Chloride [Moles/Vol] 103 mmol/L Normal 98-107 [facility] Comment on above: Performed By: #### A CBC, RENF, MG #### Testing performed at [place] [id number] CO2 [Moles/Vol] 25 mmol/L Normal 22-30 [facility] Comment on above: Performed By: #### A CBC, RENF, MG #### Testing performed at [place] [id number] Creatinine [Mass/Vol] 0.84 mg/dL Normal 0.52-1.04 [facility] Comment on above: Performed By: #### A CBC, RENF, MG #### Testing performed at [place] [id number] EST. GFR, 99 ml/min/1.73sq.m [facility] Comment on above: Performed By: #### A CBC, RENF, MG #### Testing performed at [place] [id number] EST. GFR,Non 82 ml/min/1.73sq.m [facility] Comment on above: Performed By: #### A CBC, RENF, MG #### Testing performed at [place] [id number] GFR Information Average GFR for 30-3 9 years old = 107. Normal [facility] Comment on above: Result Comment: Scroll Machine Operator zach Kidney disease, GFR = <60. Kidney failure, GFR = <15. The GFR estimate is not adjusted for extreme body surface area or acute process, nor has it been validated for women or ethnic groups other than and . Performed By: #### A CBC, RENF, MG #### Testing performed at [address] [address] Glucose [Mass/Vol] 92 mg/dL Normal 70-100 [facility] Comment on above: Result Comment: NORMAL <100 mg/dL PREDIABETES 101-126 mg/dL DIABETES 126 mg/dL or higher Performed By: #### A CBC, RENF, MG #### Testing performed at [place] [id number] Potassium [Moles/Vol] 4.2 mmol/L Normal 3.5-5.1 [facility] Comment on above: Performed By: #### A CBC, RENF, MG #### Testing performed at [address] [address] Protein [Mass/Vol] 8.5 g/dL High 6.3-8.2 [facility] Comment on above: Performed By: #### A CBC, RENF, MG #### Testing performed at [address] [address] Sodium [Moles/Vol] 141 mmol/L Normal 136-145 [facility] Comment on above: Performed By: #### A CBC, RENF, MG #### Testing performed at [address] [address] Urea nitrogen [Mass/Vol] 13 mg/dL Normal 7-20 [facility] Comment on above: Performed By: #### A CBC, RENF, MG #### Testing performed at [address] [address] [address] ABDOMEN/PELVIS WITHOUT CO NTRASTon 07-02-2022 CT ABDOMEN/PELVIS WITHOUT CONTRAST CT ABDOMEN/PELVIS WITHOUT CONTRAST CLINICAL HISTORY: Right flank pain with hematuria. COMPARISON: 11/01/2019. TECHNIQUE: No IV contrast axial CT scan from lung bases through symphysis pubis. Lack of IV contrast limits evaluation of solid organs. Oral contrast was not administered. Coronal and sagittal reconstructed images generated. Dose reduction techniques were achieved by using automated exposure control and/or adjustment of mA and/or kV according to patient size and/or use of iterative reconstruction technique. FINDINGS: CT ABDOMEN FINDINGS: Normal heart size. Lung bases clear except for minimal scarring. Liver and spleen normal in size. Normal sized adrenal glands. Gallbladder and pancreas unremarkable. Tiny bilateral nonobstructing renal calculi over the lower poles of 1 to 2 mm. No definite obstructing stone or hydronephrosis. No significant perinephric edema. Normal caliber abdominal aorta. GI tract nondilated without obstruction. Appendix is negative. Moderate to large retained stool throughout most of the colon except for relatively more mild in the sigmoid colon and decompressed rectum. No other significant inflammatory change or ascites. CT PELVIS FINDINGS: Uterus and right ovary unremarkable. Left ovary with 2.8 cm cyst which is within normal limits for age but could be symptomatic. Urinary bladder not well distended but grossly unremarkable. No bladder stones. Trace free fluid in the pelvis nonspecific but may be physiologic. No acute bony process. Mild degenerative change L5-S1. IMPRESSION: Tiny bilateral nonobstructing renal calculi. No obstructing stones or hydronephrosis. Appendix is negative. Moderate to large retained stool in much of the colon. 2.8 cm dominant left ovarian follicle is within normal limits for patient age but could be symptomatic. Trace free fluid in the pelvis could relate to small amount of cyst rupture. Normal [facility] RAPID TOX SCREEN,URINEon AMPHETAMINE Negative Normal NEGATIVE [facility] Comment on above: Result Comment: <500 ng/ml CUTOFF Performed By: #### A CBC, RENF, MG #### [place] [address] BARBITURATES Negative Normal NEGATIVE [facility] Comment on above: Result Comment: <200 ng/ml CUTOFF Performed By: #### A CBC, RENF, MG #### [place] [address] BENZODIAZEPINES Negative Normal NEGATIVE [facility] Comment on above: Result Comment: <150 ng/ml CUTOFF Performed By: #### A CBC, RENF, MG #### [place] [address] BUPRENORPHINE Negative Normal NEGATIVE [facility] Comment on above: Result Comment: <10 ng/ml CUTOFF Performed By: #### A CBC, RENF, MG #### [place] [address] CANNABINOIDS Negative Normal NEGATIVE [facility] Comment on above: Result Comment: <50 ng/ml CUTOFF Performed By: #### A CBC, RENF, MG #### [place] [address] COCAINE Negative Normal NEGATIVE [facility] Comment on above: Result Comment: <150 ng/ml CUTOFF Performed By: #### A CBC, RENF, MG #### [place] [address] FENTANYL Negative Normal NEGATIVE [facility] Comment on above: Result Comment: 20 n g/mL CUTOFF *Unconfirmed Screening Result* Unconfirmed screening results are to be used only for medical treatment purposes. This test has not been approved by the FDA. Performed By: #### A CBCLENARDF, MG #### Testing performed at [address] [address] METHADONE Negative Normal NEGATIVE [facility] Comment on above: Result Comment: <200 ng/ml CUTOFF Performed By: #### A CBCLENARDF, MG #### Testing performed at [address] [address] METHAMPHETAMINE Negative Normal NEGATIVE [facility] Comment on above: Result Comment: <500 ng/ml CUTOFF Performed By: #### A CBCLENARDF, MG #### Testing performed at [address] [address] OPIATES Positive Abnormal NEGATIVE [facility] Comment on above: Result Comment: <100 ng/ml CUTOFF *Unconfirmed Screening Result* Unconfirmed screening results are to be used only for medical treatment purposes. Performed By: #### A CBC RENF, MG #### Testing performed at [address] [place] [address] OXYCODONE Positive Abnormal NEGATIVE [facility] Comment on above: Result Comment: <100 ng/ml CUTOFF *Unconfirmed Screening Result* Unconfirmed screening results are to be used only for medical treatment purposes. Performed By: #### A CBCLENARDF, MG #### Testing performed at [address] [place] [address] PHENCYCLIDINE Negative Normal NEGATIVE [facility] Comment on above: Result Comment: <25 ng/ml CUTOFF Performed By: #### A CBC RENF, MG #### Testing performed at [address] [place] [address] PROPOXYPHENE Negative Normal NEGATIVE [facility] Comment on above: Result Comment: <300 ng/ml CUTOFF Performed By: #### A CBCLENARDF, MG #### Testing performed at [address] [address] TRICYCLIC ANTIDEPRESSANTS Negative Normal NEGATIVE [facility] Comment on above: Result Comment: <300 ng/ml CUTOFF Performed By: #### A CBCLENARDF, MG #### Testing performed at [address] [address] URINE HCG QUALon 07-02-2022 Beta HCG ( test) Ql (U) Negative Normal NEGATIVE [facility] Comment on above: Performed By: #### A CBC, RENF, MG #### Testing performed at [address] [address] URINE MACROSCOPICon 07-03-19 23 Bilirubin Ql (U) Negative Normal NEGATIVE [facility] Comment on above: Performed By: #### A CBC, RENF, MG #### Testing performed at [address] [address] Clarity (U) SLIGHTLY CLOUDY Abnormal CLEAR [facility] Comment on above: Performed By: #### A CBC, RENF, MG #### Testing performed at [address] [address] Color (U) YELLOW Normal YELLOW [facility] Comment on above: Performed By: #### A CBC, RENF, MG #### Testing performed at [address] [address] Glucose Ql (U) Negative Normal NEGATIVE [facility] Comment on above: Performed By: #### A CBC, RENF, MG #### Testing performed at [address] [address] pH (U) 7.5 [pH] High 5.0-7.0 [facility] Comment on above: Performed By: #### A CBC, RENF, MG #### Testing performed at [address] [address] URINE HEMOGLOBIN TRACE-LYSED Abnormal NEGATIVE [facility] Comment on above: Performed By: #### A CBC, RENF, MG #### Testing performed at [address] [address] URINE KETONE Negative Normal NEGATIVE [facility] Comment on above: Performed By: #### A CBC, RENF, MG #### Testing performed at [address] [address] URINE LEUKOTEST SMALL Abnormal NEGATIVE [facility] Comment on above: Performed By: #### A CBC, RENF, MG #### Testing performed at [address] [address] URINE NITRATES Positive Abnormal NEGATIVE [facility] Comment on above: Performed By: #### A CBC, RENF, MG #### Testing performed at [address] [address] URINE SPEC GRAVITY 1.015 Normal 1.010-1.0 2 5 [facility] Comment on above: Performed By: #### A CBC, RENF, MG #### Testing performed at [address] [address] URINE TOTAL PROTEIN Negative Normal NEGATIVE [facility] Comment on above: Performed By: #### A CBC, RENF, MG #### Testing performed at [address] [address] Urobilinogen Qn (U) 0.2 {Nadia'U}/dL Normal 0.2-1.0 [facility] Comment on above: Performed By: #### A CBC, RENF, MG #### Testing performed at [address] [address] URINE MICROSCOPICon 07-03-19 23 BACTERIA 2+ Abnormal NEGATIVE [facility] Comment on above: Performed By: #### A CBC, RENF, MG #### Testing performed at [address] [address] CASTS NONE Normal NONE [facility] Comment on above: Performed By: #### A CBC, RENF, MG #### Testing performed at [address] [place] [address] CRYSTAL NONE Normal [facility] Comment on above: Performed By: #### A CBC, RENF, MG #### Testing performed at [address] [address] Epithelial cells LM Ql (Urine sed) 20 TO 30 Normal [facility] Comment on above: Performed By: #### A CBC, RENF, MG #### Testing performed at [address] [address] Mucus Ql (Urine sed) Negative Normal NEGATIVE [facility] Comment on above: Performed By: #### A CBC, RENF, MG #### Testing performed at [address] [address] URINE COMMENT POSSIBLY CONTAMINATE D SPECIMEN, CULTURE MUST BE ORDERED SEPARATELY IF DEEMED NECESSARY. Normal [facility] Comment on above: Performed By: #### A CBC, RENF, MG #### Testing performed at [address] [place] [address] URINE RBC'S Negative Normal NEGATIVE [facility] Comment on above: Performed By: #### A CBC, RENF, MG #### Testing performed at [address] [address] URINE WBC'S 1 TO 5 Normal NEGATIVE [facility] Comment on above: Performed By: #### A CBC, RENF, MG #### Testing performed at [address] [address] CBCon 06-30-2022 ABSOLUTE BAS 0.0 10*3/uL Normal 0.0-0.2 [facility] Comment on above: Performed By: #### LAYO Rodgers ACBC #### Testing performed at [address] [address] ABSOLUTE EOS 0.1 10*3/uL Normal 0.0-0.7 [facility] Comment on above: Performed By: #### LAYO Rodgers ACBC #### Testing performed at [address] [place] [address] ABSOLUTE NEUTROPHIL COUNT 2.5 10*3/uL Normal 1.4-6.5 [facility] Comment on above: Performed By: #### LAYO Rodgers ACBC #### Testing performed at [address] [address] Basophils/100 WBC (Bld) 0.8 % Normal 0.0-2.0 [facility] Comment on above: Performed By: #### LAYO Rodgers ACBC #### Testing performed at [address] [place] [address] DTYPE AUTO DIFF Normal [facility] Comment on above: Performed By: #### LAYO Rodgers ACBC #### Testing performed at [address] [place] [address] Eosinophils/100 WBC (Bld) 2.2 % Normal 0.0-11.0 [facility] Comment on above: Performed By: #### LAYO Rodgers ACBC #### Testing performed at [address] [address] Lymphocytes (Bld) [#/Vol] 1.9 10*3/uL Normal 1.2-3.4 [facility] Comment on above: Performed By: #### LAYO Rodgers ACBC #### Testing performed at [address] [address] Lymphocytes/100 WBC (Bld) 38.9 % Normal 20.0-55.0 [facility] Comment on above: Performed By: #### LAYO Rodgers ACBC #### Testing performed at [address] [address] Monocytes (Bld) [#/Vol] 0.4 10*3/uL Normal 0.0-0.7 [facility] Comment on above: Performed By: #### LAYO Rodgers ACBC #### Testing performed at [address] [address] Monocytes/100 WBC (Bld) 7.1 % Normal 0.0-10.0 [facility] Comment on above: Performed By: #### LAYO Rodgers ACBC #### Testing performed at [address] [address] Neutrophils/100 WBC (Bld) 51.0 % Normal 37.0-75.0 [facility] Comment on above: Performed By: #### LAYO Rodgers ACBC #### Testing performed at [address] [address] Erythrocyte distribution width (RBC) [Ratio] 13.6 % Normal 11.5-14.5 [facility] Comment on above: Performed By: #### LAYO Rodgers ACBC #### Testing performed at [address] [address] Hematocrit (Bld) [Volume fraction] 40.0 % Normal 36.0-48.0 [facility] Comment on above: Performed By: #### LAYO Rodgers ACBC #### Testing performed at [address] [address] Hemoglobin (Bld) [Mass/Vol] 12.8 g/dL Normal 12.0-16.0 [facility] Comment on above: Performed By: ###LAYO Riggins ACBC #### Testing performed at [address] [address] MCH (RBC) [Entitic mass] 30.7 pg Normal 26.0-35.0 [facility] Comment on above: Performed By: #### LAYO Rodgers ACBC #### Testing performed at [address] [address] MCHC (RBC) [Mass/Vol] 32.0 g/dL Normal 27.0-37.0 [facility] Comment on above: Performed By: ###LAYO Riggins ACBC #### Testing performed at [address] [address] MCV (RBC) [Entitic vol] 96.0 fL Normal 80.0-100.0 [facility] Comment on above: Performed By: #### LAYO Rodgers ACBC #### Testing performed at [address] [address] Platelet mean volume (Bld) [Entitic vol] 9.8 fL Normal 7.4-11.0 [facility] Comment on above: Performed By: ###LAYO Riggins ACBC #### Testing performed at [address] [address] Platelets (Bld) [#/Vol] 195 10*3/uL Normal 130-400 [facility] Comment on above: Performed By: #### LYAO Rodgers ACBC #### Testing performed at [address] [address] RBC (Bld) [#/Vol] 4.17 10*6/uL Normal 4.0-5.4 [facility] Comment on above: Performed By: #### LAYO Rodgers ACBC #### Testing performed at [address] [address] WBC (Bld) [#/Vol] 4.9 10*3/uL Normal 3.6-11.0 [facility] Comment on above: Performed By: #### LAYO Rodgers ACBC #### Testing performed at [address] [address] MAGNESIUMon 06-30-2022 Magnesium [Mass/Vol] 2.0 mg/dL Normal 1.6-2.3 [facility] Comment on above: Performed By: #### LAYO Rodgers ACBC #### Testing performed at [address] [address] PROTEIN CREATININE RATIOon 0 06-30-2022 PROTEIN CREATININE RATIO 0.1 Normal [facility] Comment on above: Result Comment: REFERENCE RANGES <0.2 NORMAL 0.2-3.5 NON-NEPHROTIC >3.5 NEPHROTIC Performed By: #### A CBCLENARDF, MG #### Testing performed at [address] [address] URINE CREATININE RANDOM 216.2 MG/DL Normal [facility] Comment on above: Result Comment: NO N ORMAL VALUES ESTABLISHED FOR RANDOM SPECIMENS Performed By: #### A CBCLAYO, MG #### Testing performed at [address] [address] URINE TP RANDOM 13 MG/DL High <10 [facility] Comment on above: Performed By: #### A CBCLAYO, MG #### Testing performed at [address] [address] RENAL PANEL,FASTINGon 2022 ALBUMIN 4.3 G/dl Normal 3.5-5.0 [facility] Comment on above: Performed By: #### LAYO Rodgers ACBC #### Testing performed at [address] [address] Calcium [Mass/Vol] 9.6 mg/dL Normal 8.4-10.2 [facility] Comment on above: Performed By: #### LAYO Rodgers ACBC #### Testing performed at [address] [address] Chloride [Moles/Vol] 105 mmol/L Normal 98-107 [facility] Comment on above: Performed By: #### LAYO Rodgers ACBC #### Testing performed at [address] [address] CO2 [Moles/Vol] 26 mmol/L Normal 22-30 [facility] Comment on above: Performed By: #### LAYO Rodgers ACBC #### Testing performed at [address] [address] Creatinine [Mass/Vol] 0.86 mg/dL Normal 0.52-1.04 [facility] Comment on above: Performed By: #### LAYO Rodgers ACBC #### Testing performed at [address] [address] EST. GFR, 97 ml/min/1.73sq.m [facility] Comment on above: Performed By: #### LAYO Rodgers ACBC #### Testing performed at [address] [address] EST. GFR,Non 80 ml/min/1.73sq.m [facility] Comment on above: Performed By: #### LAYO Rodgers ACBC #### Testing performed at [address] [address] GFR Information Average GFR for 30-3 9 years old = 107. Normal [facility] Comment on above: Result Comment: Scroll Machine Operator zach Kidney disease, GFR = <60. Kidney failure, GFR = <15. The GFR estimate is not adjusted for extreme body surface area or acute process, nor has it been validated for women or ethnic groups other than and . Performed By: #### LAYO Rodgers ACBC #### Testing performed at [address] [address] Glucose [Mass/Vol] 80 mg/dL Normal 70-100 [facility] Comment on above: Result Comment: NORMAL <100 mg/dL PREDIABETES 101-126 mg/dL DIABETES 126 mg/dL or higher Performed By: #### LAYO Rodgers ACBC #### Testing performed at [address] [address] PHOSPHOROUS 3.1 MG/DL Normal 2.5-4.5 [facility] Comment on above: Performed By: #### LAYO Rodgers ACBC #### Testing performed at [address] [address] Potassium [Moles/Vol] 4.1 mmol/L Normal 3.5-5.1 [facility] Comment on above: Performed By: #### LAYO Rodgers ACBC #### Testing performed at [address] [address] Sodium [Moles/Vol] 143 mmol/L Normal 136-145 [facility] Comment on above: Performed By: #### LAYO Rodgers ACBC #### Testing performed at [address] [address] Urea nitrogen [Mass/Vol] 23 mg/dL High 7-20 [facility] Comment on above: Performed By: #### LAYO Rodgers ACBC #### Testing performed at [address] [address] URINE MACROSCOPICon 07-01-19 23 Bilirubin Ql (U) Negative Normal NEGATIVE [facility] Comment on above: Performed By: #### A CBCLENARDF, MG #### Testing performed at [address] [address] Clarity (U) CLEAR Normal CLEAR [facility] Comment on above: Performed By: #### A CBCLENARDF, MG #### Testing performed at [address] [address] Color (U) DARK YELLOW Abnormal YELLOW [facility] Comment on above: Performed By: #### A CBCLENARDF, MG #### Testing performed at [address] [address] Glucose Ql (U) Negative Normal NEGATIVE [facility] Comment on above: Performed By: #### A CBC, RENF, MG #### Testing performed at [address] [place] [address] pH (U) 6.5 [pH] Normal 5.0-7.0 [facility] Comment on above: Performed By: #### A CBC, LENARDF, MG #### Testing performed at [address] [address] URINE HEMOGLOBIN Negative Normal NEGATIVE [facility] Comment on above: Performed By: #### A CBC, LENARDF, MG #### Testing performed at [address] [address] URINE KETONE 15 mg/dl Abnormal NEGATIVE [facility] Comment on above: Performed By: #### A CBC, RENF, MG #### Testing performed at [address] [address] URINE LEUKOTEST Negative Normal NEGATIVE [facility] Comment on above: Performed By: #### A CBC, RENF, MG #### Testing performed at [address] [address] URINE NITRATES Negative Normal NEGATIVE [facility] Comment on above: Performed By: #### A CBC, RENF, MG #### Testing performed at [address] [address] URINE SPEC GRAVITY 1.025 Normal 1.010-1.0 2 5 [facility] Comment on above: Performed By: #### A CBC, RENF, MG #### Testing performed at [address] [address] URINE TOTAL PROTEIN Negative Normal NEGATIVE [facility] Comment on above: Performed By: #### A CBC, RENF, MG #### Testing performed at [address] [address] Urobilinogen Qn (U) 0.2 {Nadia'U}/dL Normal 0.2-1.0 [facility] Comment on above: Performed By: #### A CBC, RENF, MG #### Testing performed at [address] [address] URINE SODIUM RANDOMon 2022 Sodium (U) [Moles/Vol] 161 mmol/L Normal [facility] Comment on above: Performed By: #### A CBC, RENF, MG #### Testing performed at [address] [address] BETA HCG, QUANTITATIVE FOR E Don 05-23-2022 HCG.beta subunit Qn m[IU]/mL Normal <5.0 [facility] Comment on above: Order Comment: Speci men Type: BLOOD SPECIMENOrdering Facility: [facility] Address: [address] [place] [id number] Result Comment: Nega tive Performed By: #### H CGED, 34231-4, 94004-5 ####FER[facility] LABORATORYCLIA [id number] [place] [address] [place] CBC W Auto Differential pane l (Bld)on 05-23-2022 Basophils (Bld) [#/Vol] 0.04 10*3/uL Normal <0.11 [facility] Comment on above: Order Comment: Speci men Type: BLOOD SPECIMENOrdering Facility: [facility] Address: [address] [place] [address] Performed By: #### 5 7021-8 ####FERREIRA LABORATORYCLIA [id number] [place] [address] [place] Basophils/100 WBC (Bld) 0.6 % Normal [facility] Comment on above: Order Comment: Speci men Type: BLOOD SPECIMENOrdering Facility: [facility] Address: [address] [place] [address] Performed By: #### 5 7021-8 ####FERREIRA LABORATORYCLIA [id number] [address] [place] Differential cell count method Nom (Bld) Auto Normal [facility] Comment on above: Order Comment: Speci men Type: BLOOD SPECIMENOrdering Facility: [facility] Address: [address] [place] [address] Performed By: #### 5 7021-8 ####FERREIRA LABORATORYCLIA [id number] [place] [address] [place] Eosinophils (Bld) [#/Vol] 0.07 10*3/uL Normal <0.46 [facility] Comment on above: Order Comment: Speci men Type: BLOOD SPECIMENOrdering Facility: [facility] Address: [address] [place] [address] Performed By: #### 5 7021-8 ####FERREIRA LABORATORYCLIA [id number] [address] Eosinophils/100 WBC (Bld) 1.1 % Normal [facility] Comment on above: Order Comment: Speci men Type: BLOOD SPECIMENOrdering Facility: [facility] Address: [address] [place] [address] Performed By: #### 5 7021-8 ####FERREIRA LABORATORYCLIA [id number] [address] Erythrocyte distribution width (RBC) [Ratio] 12.6 % Normal 11.5-15.0 [facility] Comment on above: Order Comment: Speci men Type: BLOOD SPECIMENOrdering Facility: [facility] Address: [address] [place] [address] Performed By: #### 5 7021-8 ####FERREIRA LABORATORYCLIA [id number] [address] [place] Hematocrit (Bld) [Volume fraction] 35.3 % Low 36.0-46.0 [facility] Comment on above: Order Comment: Speci men Type: BLOOD SPECIMENOrdering Facility: [facility] Address: [address] [place] [address] Performed By: #### 5 7021-8 ####FERREIRA LABORATORYCLIA [id number] [address] [place] Hemoglobin (Bld) [Mass/Vol] 11.7 g/dL Normal 11.5-15.5 [facility] Comment on above: Order Comment: Speci men Type: BLOOD SPECIMENOrdering Facility: [facility] Address: [address] [place] [address] Performed By: #### 5 7021-8 ####FERREIRA LABORATORYCLIA [id number] [address] [place] Immature granulocytes (Bld) [#/Vol] 10*3/uL Normal <0.10 [facility] Comment on above: Order Comment: Speci men Type: BLOOD SPECIMENOrdering Facility: [facility] Address: [address] [place] [address] Performed By: #### 5 7021-8 ####FERREIRA LABORATORYCLIA [id number] [address] Immature granulocytes/100 WBC (Bld) 0.3 % Normal [facility] Comment on above: Order Comment: Speci men Type: BLOOD SPECIMENOrdering Facility: [facility] Address: [address] [address] Performed By: #### 5 7021-8 ####FERREIRA LABORATORYCLIA [id number] [place] [address] [place] Lymphocytes (Bld) [#/Vol] 1.94 10*3/uL Normal 1.00-4.00 [facility] Comment on above: Order Comment: Speci men Type: BLOOD SPECIMENOrdering Facility: [facility] Address: [address] [place] [address] Performed By: #### 5 7021-8 ####FERREIRA LABORATORYCLIA [id number] [address] [place] Lymphocytes/100 WBC (Bld) 30.0 % Normal [facility] Comment on above: Order Comment: Speci men Type: BLOOD SPECIMENOrdering Facility: [facility] Address: [address] [place] [address] Performed By: #### 5 7021-8 ####FERREIRA LABORATORYCLIA [id number] [place] [address] [place] MCH (RBC) [Entitic mass] 31.6 pg Normal 26.0-34.0 [facility] Comment on above: Order Comment: Speci men Type: BLOOD SPECIMENOrdering Facility: [facility] Address: [address] [place] [address] Performed By: #### 5 7021-8 ####FERREIRA LABORATORYCLIA [id number] [address] [place] MCHC (RBC) [Mass/Vol] 33.1 g/dL Normal 30.5-36.0 [facility] Comment on above: Order Comment: Speci men Type: BLOOD SPECIMENOrdering Facility: [facility] Address: [address] [place] [address] Performed By: #### 5 7021-8 ####FERREIRA LABORATORYCLIA [id number] [address] [place] MCV (RBC) [Entitic vol] 95.4 fL Normal 80.0-100.0 [facility] Comment on above: Order Comment: Speci men Type: BLOOD SPECIMENOrdering Facility: [facility] Address: [address] [address] Performed By: #### 5 7021-8 ####FERREIRA LABORATORYCLIA [id number] [place] [address] [place] Monocytes (Bld) [#/Vol] 0.40 10*3/uL Normal <0.87 [facility] Comment on above: Order Comment: Speci men Type: BLOOD SPECIMENOrdering Facility: [facility] Address: [address] [address] Performed By: #### 5 7021-8 ####FERREIRA LABORATORYCLIA [id number] [address] [place] Monocytes/100 WBC (Bld) 6.2 % Normal [facility] Comment on above: Order Comment: Speci men Type: BLOOD SPECIMENOrdering Facility: [facility] Address: [address] [address] Performed By: #### 5 7021-8 ####FERREIRA LABORATORYCLIA [id number] [place] [address] [place] Neutrophils (Bld) [#/Vol] 3.99 10*3/uL Normal 1.45-7.50 [facility] Comment on above: Order Comment: Speci men Type: BLOOD SPECIMENOrdering Facility: [facility] Address: [address] [place] [address] Performed By: #### 5 7021-8 ####FERREIRA LABORATORYCLIA [id number] [address] [place] Neutrophils/100 WBC (Bld) 61.8 % Normal [facility] Comment on above: Order Comment: Speci men Type: BLOOD SPECIMENOrdering Facility: [facility] Address: [address] [place] [address] Performed By: #### 5 7021-8 ####FERREIRA LABORATORYCLIA [id number] [place] [address] [place] Nucleated RBC (Bld) [#/Vol] 10*3/uL Normal <0.01 [facility] Comment on above: Order Comment: Speci men Type: BLOOD SPECIMENOrdering Facility: [facility] Address: [address] [place] [address] Performed By: #### 5 7021-8 ####FERREIRA LABORATORYCLIA [id number] [place] [address] [place] Nucleated RBC/100 WBC (Bld) [Ratio] 0.0 /100 WBC Normal [facility] Comment on above: Order Comment: Speci men Type: BLOOD SPECIMENOrdering Facility: [facility] Address: [address] [address] Performed By: #### 5 7021-8 ####FERREIRA LABORATORYCLIA [id number] [place] [address] [place] Platelet mean volume (Bld) [Entitic vol] 10.1 fL Normal 9.0-12.7 [facility] Comment on above: Order Comment: Speci men Type: BLOOD SPECIMENOrdering Facility: [facility] Address: [address] [address] Performed By: #### 5 7021-8 ####FERREIRA LABORATORYCLIA [id number] [place] [address] [place] Platelets (Bld) [#/Vol] 213 10*3/uL Normal 150-400 [facility] Comment on above: Order Comment: Speci men Type: BLOOD SPECIMENOrdering Facility: [facility] Address: [address] [address] Performed By: #### 5 7021-8 ####FERREIRA LABORATORYCLIA [id number] [place] [address] [place] RBC (Bld) [#/Vol] 3.70 10*6/uL Low 3.90-5.20 [facility] Comment on above: Order Comment: Speci men Type: BLOOD SPECIMENOrdering Facility: [facility] Address: [address] [place] [address] Performed By: #### 5 7021-8 ####FERREIRA LABORATORYCLIA [id number] [place] [address] [place] WBC (Bld) [#/Vol] 6.46 10*3/uL Normal 3.70-11.00 [facility] Comment on above: Order Comment: Speci men Type: BLOOD SPECIMENOrdering Facility: [facility] Address: [place] [address] Performed By: #### 5 7021-8 ####FERREIRA LABORATORYCLIA [id number] [place] [address] [place] [address] ABD/PEL WO IVCONon 2022 CT ABD/PEL WO IVCON * * *Final Report* * * DATE OF EXAM: May 23 2022 3:13PM [facility] [place] ABD/PEL WO IVCON / PROCEDURE REASON: Flank pain, kidney stone suspected * * * * Physician Interpretation * * * * EXAMINATION: CT ABDOMEN AND PELVIS WITHOUT IV CONTRAST CLINICAL HISTORY: Right flank pain TECHNIQUE: Non-IV contrast imaging of the abdomen and pelvis was performed using standard technique, scanning from just above the dome of the diaphragm to the symphysis pubis. Unenhanced imaging is limited for the evaluation of some intra-abdominal and pelvic pathology. MQ: CTAPWO_3 Contrast: IV: None : ml of CT Radiation dose: Integrated Dose-length product (DLP) for this visit = 234 mGy*cm. CT Dose Reduction Employed: Automated exposure control(AEC) and iterative recon COMPARISON: 09/27/2021. RESULT: Abdomen / Pelvis: Liver: Unremarkable. Biliary: No gallbladder or biliary duct dilatation. Spleen: No splenomegaly. Pancreas: Unremarkable. Adrenals: No mass. Kidneys: No calculus, hydronephrosis or finding to suggest a cyst or mass in the unenhanced kidney. GI Tract: No bowel dilation. Normal appendix. No pericolonic inflammation. Lymph Nodes: No lymphadenopathy. Mesentery/peritoneum: No ascites. Retroperitoneum: No mass. Vasculature: No abdominal aortic or iliac artery aneurysm. Pelvis: No mass or ascites. Bones/Soft Tissues: No acute abnormality. Lower thorax: Unremarkable. Bleach Maker (topogram) images: No additional findings. IMPRESSION: No CT evidence of acute abnormality. Green Building Materials Designer: JUWAN Transcribe Date/Time: May 23 2022 3:16P Dictated by : Fabrizio CORBETT MD This examination was interpreted and the report reviewed and electronically signed by: Fabrizio CORBETT MD on May 23 2022 3:23PM EST [id number] [facility] CT BRAIN WO IVCONon 05-24-[address] BRAIN WO IVCON * * *Final Report* * * DATE OF EXAM: May 23 2022 3:13PM [facility] [place] [place] BRAIN WO IVCON / PROCEDURE REASON: Seizure, new-onset, no history of trauma * * * * Physician Interpretation * * * * EXAMINATION: CT BRAIN WO IVCON CLINICAL HISTORY: Seizure. TECHNIQUE: Serial axial images without IV contrast were obtained from the vertex to the foramen magnum. MQ: CTBWO_3 CT Radiation dose: Integrated Dose-Length Product (DLP) for this visit = 788 mGy*cm CT Dose Reduction Employed: Automated exposure control(AEC) and iterative recon COMPARISON: None. RESULT: Post-operative change: None. Acute change: No evidence of an acute infarct or other acute parenchymal process. Hemorrhage: No evidence of acute intracranial hemorrhage. ECASS hemorrhagic transformation score: Not Applicable Mass Lesion / Mass Effect: There is no evidence of an intracranial mass or extraaxial fluid collection. No significant mass effect. Chronic change: None apparent. Parenchyma: There is no significant volume loss. The brain parenchyma is otherwise within normal limits for age. Ventricles: The ventricles are within normal limits of size and configuration for age. The right temporal horn is slightly larger than left temporal horn. Paranasal sinuses and skull base: The visualized paranasal sinuses are grossly clear. The skull base and imaged soft tissues are unremarkable. Bleach Maker (topogram) images: No additional findings. IMPRESSION: No acute intracranial process identified. Green Building [employer] Designer: PSCB Transcribe Date/Time: May 23 2022 3:14P Dictated by : JAJA OLIVER MD This examination was interpreted and the report reviewed and electronically signed by: JAJA OLIVER MD on May 23 2022 3:18PM EST [id number] [facility] Comprehensive metabolic 2000 panelon 05-23-2022 Albumin [Mass/Vol] 4.5 g/dL Normal 3.9-4.9 [facility] Comment on above: Order Comment: Speci men Type: BLOOD SPECIMENOrdering Facility: [facility] Address: [address] [place] [id number] Performed By: #### H CGED, , ####FERREIRA LABORATORYCLIA [id number] [place] [address] [place] ALP [Catalytic activity/Vol] 62 U/L Normal 34-123 [facility] Comment on above: Order Comment: Speci men Type: BLOOD SPECIMENOrdering Facility: [facility] Address: [address] [place] [address] Performed By: #### H CGED, , ####FERREIRA LABORATORYCLIA [id number] [place] [address] [place] ALT [Catalytic activity/Vol] 13 U/L Normal 7-38 [facility] Comment on above: Order Comment: Speci men Type: BLOOD SPECIMENOrdering Facility: [facility] Address: [address] [place] [address] Performed By: #### H CGED, , ####FERREIRA LABORATORYCLIA [id number] [place] [address] [place] Anion gap [Moles/Vol] 11 mmol/L Normal 9-18 [facility] Comment on above: Order Comment: Speci men Type: BLOOD SPECIMENOrdering Facility: [facility] Address: [address] [place] [address] Performed By: #### H CGED, , ####FERREIRA LABORATORYCLIA [id number] [address] [place] AST [Catalytic activity/Vol] 20 U/L Normal 13-35 [facility] Comment on above: Order Comment: Speci men Type: BLOOD SPECIMENOrdering Facility: [facility] Address: [address] [place] [address] Performed By: #### H CGED, , ####FERREIRA LABORATORYCLIA [id number] [place] [address] [place] Bilirubin [Mass/Vol] 0.3 mg/dL Normal 0.2-1.3 [facility] Comment on above: Order Comment: Speci men Type: BLOOD SPECIMENOrdering Facility: [facility] Address: [address] [address] Performed By: #### H CGED, , ####FERREIRA LABORATORYCLIA [id number] [place] [address] [place] Calcium [Mass/Vol] 9.0 mg/dL Normal 8.5-10.2 [facility] Comment on above: Order Comment: Speci men Type: BLOOD SPECIMENOrdering Facility: [facility] Address: [address] [address] Performed By: #### H CGED, , ####FERREIRA LABORATORYCLIA [id number] [place] [address] [place] Chloride [Moles/Vol] 103 mmol/L Normal 97-105 [facility] Comment on above: Order Comment: Speci men Type: BLOOD SPECIMENOrdering Facility: [facility] Address: [address] [address] Performed By: #### H CGED, , ####FERREIRA LABORATORYCLIA [id number] [place] [address] [place] CO2 [Moles/Vol] 24 mmol/L Normal 22-30 [facility] Comment on above: Order Comment: Speci men Type: BLOOD SPECIMENOrdering Facility: [facility] Address: [address] [address] Performed By: #### H CGED, , ####FERREIRA LABORATORYCLIA [id number] [place] [address] [place] Creatinine [Mass/Vol] 0.80 mg/dL Normal 0.58-0.96 [facility] Comment on above: Order Comment: Speci men Type: BLOOD SPECIMENOrdering Facility: [facility] Address: [address] [address] Performed By: #### H CGED, , ####FERREIRA LABORATORYCLIA [id number] [place] [address] [place] ESTIMATED GLOMERULAR FILTRATION RATE 99 mL/min/1.73m??? Normal >=60 [facility] Comment on above: Order Comment: Brynn lambert Type: BLOOD SPECIMENOrdering Facility: [facility] Address: [address] [place] [address] Result Comment: Sammi mated Glomerular Filtration Rate (eGFR) is calculated using the 2020 CKD-EPI creatinine equation. This equation utilizes serum creatinine, sex, and age as parameters. The creatinine assay has traceable calibration to isotope dilution-mass spectrometry. Refer to KDIGO guidelines for clinical interpretation. In patients with unstable renal function, e.g. those with acute kidney injury, the eGFR may not accurately reflect actual GFR. Performed By: #### H SMITH, , ####JHON LABORATORYCLIA [id number] [place] [address] [place] Glucose [Mass/Vol] 93 mg/dL Normal 74-99 [facility] Comment on above: Order Comment: Brynn lambert Type: BLOOD SPECIMENOrdering Facility: [facility] Address: [address] [place] [address] Result Comment: The [place] Diabetes Association (ADA) provides guidance for cutoff values for fasting glucose and random glucose. The ADA defines fasting as no caloric intake for at least 8 hours. Fasting plasma glucose results between 100 to 125 mg/dL indicate increased risk for diabetes (prediabetes). Fasting plasma glucose results greater than or equal to 126 mg/dL meet the criteria for diagnosis of diabetes. In the absence of unequivocal hyperglycemia, results should be confirmed by repeat testing. In a patient with classic symptoms of hyperglycemia or hyperglycemic crisis, random plasma glucose results greater than or equal to 200 mg/dL meet the criteria for diagnosis of diabetes. Reference: Standards of Medical Care in Diabetes 2016, [place] Diabetes Association. Diabetes Care. 2016.39(Suppl 1). Performed By: #### H SMITH, , ####JHON LABORATORYCLIA [id number] [place] [address] [place] Potassium [Moles/Vol] 3.8 mmol/L Normal 3.7-5.1 [facility] Comment on above: Order Comment: Brynn lambert Type: BLOOD SPECIMENOrdering Facility: [facility] Address: [address] [address] Performed By: #### H CGED, , ####FERREIRA LABORATORYCLIA [id number] [address] Protein [Mass/Vol] 7.2 g/dL Normal 6.3-8.0 [facility] Comment on above: Order Comment: Speci men Type: BLOOD SPECIMENOrdering Facility: [facility] Address: [address] [address] Performed By: #### H CGED, , ####FERREIRA LABORATORYCLIA [id number] [address] [place] Sodium [Moles/Vol] 138 mmol/L Normal 136-144 [facility] Comment on above: Order Comment: Speci men Type: BLOOD SPECIMENOrdering Facility: [facility] Address: [address] [address] Performed By: #### H CGED, , ####FERREIRA LABORATORYCLIA [id number] [address] [place] Urea nitrogen [Mass/Vol] 12 mg/dL Normal 7-21 [facility] Comment on above: Order Comment: Speci men Type: BLOOD SPECIMENOrdering Facility: [facility] Address: [address] [place] [address] Performed By: #### H CGED, , ####FERREIRA LABORATORYCLIA [id number] [address] [place] ED NOTEon 05-23-2022 ED NOTE HNO ID: [id number] Author: Sarai Chin RN Service: ? Author Type: Registered Nurse Type: ED Notes Filed: 05/23/2022 4:32 PM Note Text: pt given dc instructions and follow up care she verbalized understanding. Normal [facility] ED NOTE HNO ID: [id number] Author: Sarai Chin RN Service: ? Author Type: Registered Nurse Type: ED Notes Filed: 05/23/2022 3:57 PM Note Text: pt ambulated to restroom. [facility] ED NOTE HNO ID: [id number] Author: Sarai Chin RN Service: ? Author Type: Registered Nurse Type: ED Notes Filed: 05/23/2022 3:44 PM Note Text: PA in room to talk with pt. [facility] ED NOTE HNO ID: [id number] Author: Sarai Chin RN Service: ? Author Type: Registered Nurse Type: ED Notes Filed: 05/23/2022 1:22 PM Note Text: pt states she has seizures when she has any type of pain. pt states she has seizures., pt has right flank pain. pt startes she had 3 seizures and she took po ATIVAN. pt also has chronic pain syndrome. [facility] ED PROV NOTEon 05-23-2022 ED PROV NOTE HNO ID: [id number] Author: Moises Hutchinson PA-C Service: Emergency Medicine Author Type: Physician Alcoholism Worker Type: ED Provider Notes Filed: 05/23/2022 3:59 PM Note Text: ED Provider Note Patient Name: Kendall Vasques : 1985 SERVICE DATE: 05/23/22 History Patient presents with: Flank Pain: right sided, pain causes her to have seizures. pt also having her period 36-year-old female with a significant past medical history of kidney stones presents today for complaints of right flank pain as well as seizure-like activity. It was reported that the patient was at work today when she began having right flank pain. Patient reports that she suffered 3 episodes of what was described as seizure-like activity. The patient states that she typically develops seizure-like activity as a response to pain. She reports that she has had known kidney stones and has been passing the stones all morning. No reports of fevers. Denies vomiting. She states that she was recently seen and evaluated on 02 May for similar complaints. At that encounter patient had an ultrasound which revealed punctate stones with no evidence of hydronephrosis. The patient was ultimately discharged home. Patient reports no UTI-like symptoms PAST MEDICAL HISTORY Diagnosis Date Asthma Hx of ovarian cyst Hx: UTI (urinary tract infection) Hypoglycemia 5 years ago Infectious mononucleosis Renal calculi Seizure disorder (HCC) Syncope and collapse PAST SURGICAL HISTORY Procedure Laterality Date CT ABDOMEN 09/10/[address] [facility] [address] BRAIN 06/19/05 [facility] LITHOTRIPSY XTRCORP SHOCK WAVE 04/2006 Lithotripsy Right kidney OVARY SURGERY HX 04/10/2013 Excision of right fallopian tube and ovary PAST SURGICAL HISTORY OF 2003 right ear cartilage repair TONSILLECTOMY AND ADENOIDECTOMY HX 12/2012 FAMILY HISTORY Problem Relation Age of Onset Stroke Father Seizures Sister 2 focal sezures Amblyopia Sister other (Hypoglycemia) Maternal Grandfather Social History Tobacco Use Smoking status: Never Smokeless tobacco: Never Substance and Sexual Activity Alcohol use: No Drug use: No Sexual activity: Yes Partners: Male control/protection: Pill ALLERGIES Allergen Reactions Adhesive Rash Codeine Hives, Vomiting Flagyl [Metronidazo* Other: See Comments SZ Morphine Hives Nsaids (Non-Steroid* Other: See Comments Stage 2 kidney dx Topamax [Topiramate] GI Upset Review of Systems All other systems reviewed and are negative. Physical Exam Vitals [05/23/22 1315] BP Pulse Temp Temp src Resp SpO2 Weight Height 108/75 (!) 92 36.7 ?C (98 ?F) Oral 18 100 % 66.2 kg (146 lb) -- Physical Exam Vitals and nursing note reviewed. Constitutional: General: She is not in acute distress. Appearance: Normal appearance. She is well-developed and normal weight. She is not ill-appearing, toxic-appearing or diaphoretic. HENT: Head: Normocephalic. Nose: Nose normal. Mouth/Throat: Mouth: Mucous membranes are moist. Eyes: Conjunctiva/sclera: Conjunctivae normal. Cardiovascular: Rate and Rhythm: Normal rate and regular rhythm. Pulses: Normal pulses. Heart sounds: Normal heart sounds. Pulmonary: Effort: Pulmonary effort is normal. Breath sounds: Normal breath sounds. Abdominal: General: Abdomen is flat. Bowel sounds are normal. There is no distension. Palpations: Abdomen is soft. Tenderness: There is no abdominal tenderness. There is no right CVA tenderness, left CVA tenderness, guarding or rebound. Musculoskeletal: General: Normal range of motion. Cervical back: Normal range of motion and neck supple. Skin: General: Skin is warm and dry. Capillary Refill: Capillary refill takes less than 2 seconds. Neurological: General: No focal deficit present. Mental Status: She is alert and oriented to person, place, and time. Psychiatric: Mood and Affect: Mood normal. Behavior: Behavior normal. Thought Content: Thought content normal. Judgment: Judgment normal. Diagnostic Testing ED Labs Ordered and Reviewed - No data to display Procedures ED Course / Clinical Impression ED Course as of 05/23/22 1555 Moises Green Hutchinson's Documentation ThuMay 23, [address] IMPRESSION: No acute intracranial process identified. 1549 CT IMPRESSION: No CT evidence of acute abnormality. 1549 Oxycodone, Urine(!): Preliminary positive 1551 Creatinine: 0.80 Clinical Impressions as of 05/23/22 1555 Flank pain Seizure-like activity (HCC) MDM / Disposition / Plan 36-year-old female seen and evaluated for right flank pain and reported seizure-like activity. Patient was found to be alert and oriented on exam. Reviewed the patient's electronic medical records along with her most recent encounter. Patient was found to have punctate stones on recent ultrasound. Patient reports that she typically has seizure-li (more content not included)... Normal [facility] Ethanol [facility] 023 Ethanol [Mass/Vol] mg/dL Normal <11 [facility] Comment on above: Order Comment: Speci men Type: BLOOD SPECIMENOrdering Facility: [facility] Address: [address] [place] [address] Performed By: #### 5 643-2 ####FERREIRA LABORATORYCLIA [id number] [place] [address] [place] FENTANYL SCREEN, QUALITATIVE , URINEon 05-23-2022 fentaNYL Screen Ql (U) Negative Normal Negative [facility] Comment on above: Order Comment: Speci men Type: URINE SPECIMENOrdering Facility: [facility] Address: [address] [address] Result Comment: Cuto ff threshold at 5 ng/mL. Performed By: #### U FENTS ####[facility] LABORATORYCLIA [id number] [place] [address] [place] Magnesium SerPl-mCncon 05-23 Magnesium [Mass/Vol] 2.1 mg/dL Normal 1.7-2.3 [facility] Comment on above: Order Comment: Speci men Type: BLOOD SPECIMENOrdering Facility: [facility] Address: [address] [place] [address] Performed By: #### H CGED, 83576-9, 92469-2 ####FERREIRA LABORATORYCLIA [id number] [address] [place] TOX SCREEN ROUT URon 023 Amphetamines Confirm (U) [Mass/Vol] Negative Normal Negative [facility] Comment on above: Order Comment: Speci men Type: URINE SPECIMENOrdering Facility: [facility] Address: [address] [place] [address] Result Comment: Cuto ff threshold at 1000 ng/mL. Performed By: #### U TOX2 ####FERERIRA LABORATORYCLIA [id number] [address] [place] BARBITURATES, URINE Negative Normal Negative [facility] Comment on above: Order Comment: Speci men Type: URINE SPECIMENOrdering Facility: [facility] Address: [address] [place] [address] Result Comment: Cuto ff threshold at 200 ng/mL. Performed By: #### U TOX2 ####FERREIRA LABORATORYCLIA [id number] [address] [place] BENZODIAZEPINES, UR Negative Normal Negative [facility] Comment on above: Order Comment: Speci men Type: URINE SPECIMENOrdering Facility: [facility] Address: [address] [place] [address] Result Comment: Cuto ff threshold at 200 ng/mL. Performed By: #### U TOX2 ####FERREIRA LABORATORYCLIA [id number] [address] [place] CANNABINOIDS,URINE Negative Normal Negative [facility] Comment on above: Order Comment: Speci men Type: URINE SPECIMENOrdering Facility: [facility] Address: [address] [place] [address] Result Comment: Cuto ff threshold at 50 ng/mL. Performed By: #### U TOX2 ####FERREIRA LABORATORYCLIA [id number] [place] [address] [place] Cocaine Ql (U) Negative Normal Negative [facility] Comment on above: Order Comment: Speci men Type: URINE SPECIMENOrdering Facility: [facility] Address: [address] [place] [address] Result Comment: Cuto ff threshold at 300 ng/mL. Performed By: #### U TOX2 ####FERREIRA LABORATORYCLIA [id number] [place] [address] [place] Ethanol (U) [Mass/Vol] <11 Normal <[address] [facility] Comment on above: Order Comment: Speci men Type: URINE SPECIMENOrdering Facility: [facility] Address: [address] [place] [address] Performed By: #### U TOX2 ####FERREIRA LABORATORYCLIA [id number] [address] [place] Opiates Screen Ql (U) Negative Normal Negative [facility] Comment on above: Order Comment: Speci men Type: URINE SPECIMENOrdering Facility: [facility] Address: [address] [place] [address] Result Comment: Cuto ff threshold at 300 ng/mL. Performed By: #### U TOX2 ####FERREIRA LABORATORYCLIA [id number] [address] oxyCODONE cutoff Screen (U) [Mass/Vol] Positive Abnormal Negative [facility] Comment on above: Order Comment: Speci men Type: URINE SPECIMENOrdering Facility: [facility] Address: [address] [place] [address] Result Comment: Cuto ff threshold at 100 ng/mL. Performed By: #### U TOX2 ####FERREIRA LABORATORYCLIA [id number] [address] [place] Phencyclidine Ql (U) Negative Normal Negative [facility] Comment on above: Order Comment: Speci men Type: URINE SPECIMENOrdering Facility: [facility] Address: [address] [place] [address] Result Comment: Cuto ff threshold at 25 ng/mL. Performed By: #### U TOX2 ####FERREIRA LABORATORYCLIA [id number] [address] Urinalysis complete panel (U )on 05-23-2022 Bilirubin Ql (U) Negative Normal Negative [facility] Comment on above: Order Comment: Speci men Type: URINE SPECIMENOrdering Facility: [facility] Address: [address] [place] [address] Performed By: #### 2 4356-8 ####FERREIRA LABORATORYCLIA [id number] [address] [place] Clarity (Unsp spec) Clear Normal Clear [facility] Comment on above: Order Comment: Speci men Type: URINE SPECIMENOrdering Facility: [facility] Address: [address] [place] [address] Performed By: #### 2 4356-8 ####FERREIRA LABORATORYCLIA [id number] [address] Color (U) Yellow Normal Yellow [facility] Comment on above: Order Comment: Speci men Type: URINE SPECIMENOrdering Facility: [facility] Address: [address] [place] [address] Performed By: #### 2 4356-8 ####FERREIRA LABORATORYCLIA [id number] [address] Epithelial cells LM.HPF (Urine sed) [#/Area] Few Normal [facility] Comment on above: Order Comment: Speci men Type: URINE SPECIMENOrdering Facility: [facility] Address: [address] [place] [address] Performed By: #### 2 4356-8 ####FERREIRA LABORATORYCLIA [id number] [address] [place] Glucose Test strip (U) [Mass/Vol] Negative Normal Negative [facility] Comment on above: Order Comment: Speci men Type: URINE SPECIMENOrdering Facility: [facility] Address: [address] [place] [address] Performed By: #### 2 4356-8 ####FERREIRA LABORATORYCLIA [id number] [address] [place] Hemoglobin Ql (U) Negative Normal Negative, Trace [facility] Comment on above: Order Comment: Speci men Type: URINE SPECIMENOrdering Facility: [facility] Address: [address] [place] [address] Performed By: #### 2 4356-8 ####FERREIRA LABORATORYCLIA [id number] [place] [address] [place] Ketones Ql (U) Negative Normal Negative [facility] Comment on above: Order Comment: Speci men Type: URINE SPECIMENOrdering Facility: [facility] Address: [address] [place] [address] Performed By: #### 2 4356-8 ####FERREIRA LABORATORYCLIA [id number] [address] [place] Leukocyte esterase Test strip Ql (U) Negative Normal Negative [facility] Comment on above: Order Comment: Speci men Type: URINE SPECIMENOrdering Facility: [facility] Address: [address] [place] [address] Performed By: #### 2 4356-8 ####FERREIRA LABORATORYCLIA [id number] [place] [address] [place] Nitrite Ql (U) Negative Normal Negative [facility] Comment on above: Order Comment: Speci men Type: URINE SPECIMENOrdering Facility: [facility] Address: [address] [place] [address] Performed By: #### 2 4356-8 ####FERREIRA LABORATORYCLIA [id number] [place] [address] [place] pH (U) 6.0 [pH] Normal 5.0-8.0 [facility] Comment on above: Order Comment: Speci men Type: URINE SPECIMENOrdering Facility: [facility] Address: [address] [place] [address] Performed By: #### 2 4356-8 ####FERREIRA LABORATORYCLIA [id number] [place] [address] [place] Protein (U) [Mass/Vol] Negative Normal Negative [facility] Comment on above: Order Comment: Speci men Type: URINE SPECIMENOrdering Facility: [facility] Address: [address] [place] [address] Performed By: #### 2 4356-8 ####FERREIRA LABORATORYCLIA [id number] [address] RBC LM.HPF (Urine sed) [#/Area] 0-3 /HPF Normal 0-3 /HPF [facility] Comment on above: Order Comment: Speci men Type: URINE SPECIMENOrdering Facility: [facility] Address: [address] [place] [address] Performed By: #### 2 4356-8 ####FERREIRA LABORATORYCLIA [id number] [address] Specific gravity (U) [Rel density] <=1.005 Low 1.005-1.03 0 [facility] Comment on above: Order Comment: Speci men Type: URINE SPECIMENOrdering Facility: [facility] Address: [address] [place] [address] Performed By: #### 2 4356-8 ####FERREIRA LABORATORYCLIA [id number] [address] Urobilinogen Ql (U) 0.2 EU/dL Normal 0.2-1.0 EU/dL [facility] Comment on above: Order Comment: Speci men Type: URINE SPECIMENOrdering Facility: [facility] Address: [address] [place] [address] Performed By: #### 2 4356-8 ####FERREIRA LABORATORYCLIA [id number] [address] WBC LM.HPF (Urine sed) [#/Area] 0-5 /HPF Normal 0-5 /HPF [facility] Comment on above: Order Comment: Speci men Type: URINE SPECIMENOrdering Facility: [facility] Address: [address] [place] [address] Performed By: #### 2 4356-8 ####FERREIRA LABORATORYCLIA [id number] [address] CBC W Auto Differential pane l (Bld)on 05-02-2022 Basophils (Bld) [#/Vol] 0.05 10*3/uL Normal <0.11 [facility] Comment on above: Order Comment: Speci men Type: BLOOD SPECIMENOrdering Facility: [facility] Address: [address] [place] [address] Performed By: #### 5 7021-8 ####FERREIRA LABORATORYCLIA [id number] [address] STATES [facility] Basophils/100 WBC (Bld) 0.6 % Normal [facility] Comment on above: Order Comment: Speci men Type: BLOOD SPECIMENOrdering Facility: [facility] Address: [address] [place] [address] Performed By: #### 5 7021-8 ####FERREIRA LABORATORYCLIA [id number] [address] Differential cell count method Nom (Bld) Auto Normal [facility] Comment on above: Order Comment: Speci men Type: BLOOD SPECIMENOrdering Facility: [facility] Address: [address] [place] [address] Performed By: #### 5 7021-8 ####FERREIRA LABORATORYCLIA [id number] [place] [address] [place] Eosinophils (Bld) [#/Vol] 0.10 10*3/uL Normal <0.46 [facility] Comment on above: Order Comment: Speci men Type: BLOOD SPECIMENOrdering Facility: [facility] Address: [address] [place] [address] Performed By: #### 5 7021-8 ####FERREIRA LABORATORYCLIA [id number] [address] Eosinophils/100 WBC (Bld) 1.2 % Normal [facility] Comment on above: Order Comment: Speci men Type: BLOOD SPECIMENOrdering Facility: [facility] Address: [address] [place] [address] Performed By: #### 5 7021-8 ####FERREIRA LABORATORYCLIA [id number] [address] [place] Erythrocyte distribution width (RBC) [Ratio] 12.5 % Normal 11.5-15.0 [facility] Comment on above: Order Comment: Speci men Type: BLOOD SPECIMENOrdering Facility: [facility] Address: [address] [place] [address] Performed By: #### 5 7021-8 ####FERREIRA LABORATORYCLIA [id number] [address] [place] Hematocrit (Bld) [Volume fraction] 35.6 % Low 36.0-46.0 [facility] Comment on above: Order Comment: Speci men Type: BLOOD SPECIMENOrdering Facility: [facility] Address: [address] [place] [address] Performed By: #### 5 7021-8 ####FERREIRA LABORATORYCLIA [id number] [address] [place] Hemoglobin (Bld) [Mass/Vol] 11.7 g/dL Normal 11.5-15.5 [facility] Comment on above: Order Comment: Speci men Type: BLOOD SPECIMENOrdering Facility: [facility] Address: [address] [place] [address] Performed By: #### 5 7021-8 ####FERREIRA LABORATORYCLIA [id number] [address] [place] Immature granulocytes (Bld) [#/Vol] 0.03 10*3/uL Normal <0.10 [facility] Comment on above: Order Comment: Speci men Type: BLOOD SPECIMENOrdering Facility: [facility] Address: [address] [place] [address] Performed By: #### 5 7021-8 ####FERREIRA LABORATORYCLIA [id number] [address] [place] Immature granulocytes/100 WBC (Bld) 0.3 % Normal [facility] Comment on above: Order Comment: Speci men Type: BLOOD SPECIMENOrdering Facility: [facility] Address: [address] [place] [address] Performed By: #### 5 7021-8 ####FERREIRA LABORATORYCLIA [id number] [address] [place] Lymphocytes (Bld) [#/Vol] 1.92 10*3/uL Normal 1.00-4.00 [facility] Comment on above: Order Comment: Speci men Type: BLOOD SPECIMENOrdering Facility: [facility] Address: [address] [place] [address] Performed By: #### 5 7021-8 ####FERREIRA LABORATORYCLIA [id number] [address] Lymphocytes/100 WBC (Bld) 22.4 % Normal [facility] Comment on above: Order Comment: Speci men Type: BLOOD SPECIMENOrdering Facility: [facility] Address: [address] [place] [address] Performed By: #### 5 7021-8 ####FERREIRA LABORATORYCLIA [id number] [address] MCH (RBC) [Entitic mass] 31.3 pg Normal 26.0-34.0 [facility] Comment on above: Order Comment: Speci men Type: BLOOD SPECIMENOrdering Facility: [facility] Address: [address] [place] [address] Performed By: #### 5 7021-8 ####FERREIRA LABORATORYCLIA [id number] [address] MCHC (RBC) [Mass/Vol] 32.9 g/dL Normal 30.5-36.0 [facility] Comment on above: Order Comment: Speci men Type: BLOOD SPECIMENOrdering Facility: [facility] Address: [address] [place] [address] Performed By: #### 5 7021-8 ####FERREIRA LABORATORYCLIA [id number] [address] MCV (RBC) [Entitic vol] 95.2 fL Normal 80.0-100.0 [facility] Comment on above: Order Comment: Speci men Type: BLOOD SPECIMENOrdering Facility: [facility] Address: [address] [place] [address] Performed By: #### 5 7021-8 ####FERREIRA LABORATORYCLIA [id number] [place] [address] [place] Monocytes (Bld) [#/Vol] 0.63 10*3/uL Normal <0.87 [facility] Comment on above: Order Comment: Speci men Type: BLOOD SPECIMENOrdering Facility: [facility] Address: [address] [address] Performed By: #### 5 7021-8 ####FERREIRA LABORATORYCLIA [id number] [address] STATES [facility] Monocytes/100 WBC (Bld) 7.3 % Normal [facility] Comment on above: Order Comment: Speci men Type: BLOOD SPECIMENOrdering Facility: [facility] Address: [address] [address] Performed By: #### 5 7021-8 ####FERREIRA LABORATORYCLIA [id number] [place] [address] [place] Neutrophils (Bld) [#/Vol] 5.85 10*3/uL Normal 1.45-7.50 [facility] Comment on above: Order Comment: Speci men Type: BLOOD SPECIMENOrdering Facility: [facility] Address: [address] [place] [address] Performed By: #### 5 7021-8 ####FERREIRA LABORATORYCLIA [id number] [address] Neutrophils/100 WBC (Bld) 68.2 % Normal [facility] Comment on above: Order Comment: Speci men Type: BLOOD SPECIMENOrdering Facility: [facility] Address: [address] [address] Performed By: #### 5 7021-8 ####FERREIRA LABORATORYCLIA [id number] [place] [address] [place] Nucleated RBC (Bld) [#/Vol] 10*3/uL Normal <0.01 [facility] Comment on above: Order Comment: Speci men Type: BLOOD SPECIMENOrdering Facility: [facility] Address: [address] [address] Performed By: #### 5 7021-8 ####FERREIRA LABORATORYCLIA [id number] [place] [address] [place] Nucleated RBC/100 WBC (Bld) [Ratio] 0.0 /100 WBC Normal [facility] Comment on above: Order Comment: Speci men Type: BLOOD SPECIMENOrdering Facility: [facility] Address: [address] [place] [address] Performed By: #### 5 7021-8 ####FERREIRA LABORATORYCLIA [id number] [place] [address] [place] Platelet mean volume (Bld) [Entitic vol] 9.9 fL Normal 9.0-12.7 [facility] Comment on above: Order Comment: Speci men Type: BLOOD SPECIMENOrdering Facility: [facility] Address: [address] [place] [address] Performed By: #### 5 7021-8 ####FERREIRA LABORATORYCLIA [id number] [place] [address] [place] Platelets (Bld) [#/Vol] 212 10*3/uL Normal 150-400 [facility] Comment on above: Order Comment: Speci men Type: BLOOD SPECIMENOrdering Facility: [facility] Address: [address] [place] [address] Performed By: #### 5 7021-8 ####FERREIRA LABORATORYCLIA [id number] [place] [address] [place] RBC (Bld) [#/Vol] 3.74 10*6/uL Low 3.90-5.20 [facility] Comment on above: Order Comment: Speci men Type: BLOOD SPECIMENOrdering Facility: [facility] Address: [address] [place] [address] Performed By: #### 5 7021-8 ####FERREIRA LABORATORYCLIA [id number] [address] [place] WBC (Bld) [#/Vol] 8.58 10*3/uL Normal 3.70-11.00 [facility] Comment on above: Order Comment: Speci men Type: BLOOD SPECIMENOrdering Facility: [facility] Address: [address] [address] Performed By: #### 5 7021-8 ####FERREIRA LABORATORYCLIA [id number] [place] [address] [place] [facility] [place] Comprehensive metabolic 2000 panelon 05-02-2022 Albumin [Mass/Vol] 4.2 g/dL Normal 3.9-4.9 [facility] Comment on above: Order Comment: Speci men Type: BLOOD SPECIMENOrdering Facility: [facility] Address: [address] [address] Performed By: #### 2 4323-8, 3040-3 ####FERREIRA LABORATORYCLIA [id number] [address] ALP [Catalytic activity/Vol] 61 U/L Normal 34-123 [facility] Comment on above: Order Comment: Speci men Type: BLOOD SPECIMENOrdering Facility: [facility] Address: [address] [address] Performed By: #### 2 4323-8, 3040-3 ####FERREIRA LABORATORYCLIA [id number] [address] [place] ALT [Catalytic activity/Vol] 13 U/L Normal 7-38 [facility] Comment on above: Order Comment: Speci men Type: BLOOD SPECIMENOrdering Facility: [facility] Address: [address] [address] Performed By: #### 2 4323-8, 3040-3 ####FERREIRA LABORATORYCLIA [id number] [address] Anion gap [Moles/Vol] 9 mmol/L Normal 9-18 [facility] Comment on above: Order Comment: Speci men Type: BLOOD SPECIMENOrdering Facility: [facility] Address: [address] [address] Performed By: #### 2 4323-8, 3040-3 ####FERREIRA LABORATORYCLIA [id number] [place] [address] [place] AST [Catalytic activity/Vol] Normal [facility] Comment on above: Order Comment: Speci men Type: BLOOD SPECIMENOrdering Facility: [facility] Address: [address] [address] Result Comment: Unab le to assay due to interference from hemolysis. Suggest reorder as clinically indicated. Performed By: #### 2 4323-8, 3040-3 ####FERREIRA LABORATORYCLIA [id number] [place] [address] [place] Bilirubin [Mass/Vol] 0.2 mg/dL Normal 0.2-1.3 [facility] Comment on above: Order Comment: Speci men Type: BLOOD SPECIMENOrdering Facility: [facility] Address: [address] [place] [address] Performed By: #### 2 4323-8, 3039-3 ####FERREIRA LABORATORYCLIA [id number] [place] [address] [place] Calcium [Mass/Vol] 9.0 mg/dL Normal 8.5-10.2 [facility] Comment on above: Order Comment: Speci men Type: BLOOD SPECIMENOrdering Facility: [facility] Address: [address] [address] Performed By: #### 2 432[address], 3039-3 ####FERREIRA LABORATORYCLIA [id number] [place] [address] [place] Chloride [Moles/Vol] 104 mmol/L Normal 97-105 [facility] Comment on above: Order Comment: Speci men Type: BLOOD SPECIMENOrdering Facility: [facility] Address: [address] [address] Performed By: #### 2 4323-8, 3039-3 ####FERREIRA LABORATORYCLIA [id number] [place] [address] [place] CO2 [Moles/Vol] 26 mmol/L Normal 22-30 [facility] Comment on above: Order Comment: Speci men Type: BLOOD SPECIMENOrdering Facility: [facility] Address: [address] [address] Performed By: #### 2 4323-8, 0-3 ####FERREIRA LABORATORYCLIA [id number] [address] STATES OF [facility] Creatinine [Mass/Vol] 0.79 mg/dL Normal 0.58-0.96 [facility] Comment on above: Order Comment: Brynn lambert Type: BLOOD SPECIMENOrdering Facility: [facility] Address: [address] [id number] Performed By: #### 2 4323-8, 3040-3 ####[facility] LABORATORYCLIA [id number] [address] ESTIMATED GLOMERULAR FILTRATION RATE 100 mL/min/1.73m??? Normal >=60 [facility] Comment on above: Order Comment: Brynn lambert Type: BLOOD SPECIMENOrdering Facility: [facility] Address: [address] Result Comment: Sammi mated Glomerular Filtration Rate (eGFR) is calculated using the 2020 CKD-EPI creatinine equation. This equation utilizes serum creatinine, sex, and age as parameters. The creatinine assay has traceable calibration to isotope dilution-mass spectrometry. Refer to KDIGO guidelines for clinical interpretation. In patients with unstable renal function, e.g. those with acute kidney injury, the eGFR may not accurately reflect actual GFR. Performed By: #### 2 4323-8, 3040-3 ####[facility] LABORATORYCLIA [id number] [address] [place] Glucose [Mass/Vol] 100 mg/dL High 74-99 [facility] Comment on above: Order Comment: Brynn lambert Type: BLOOD SPECIMENOrdering Facility: [facility] Address: [address] [place], [place] [id number] Result Comment: The [place] [employer] (ADA) provides guidance for cutoff values for fasting glucose and random glucose. The ADA defines fasting as no caloric intake for at least 8 hours. Fasting plasma glucose results between 100 to 125 mg/dL indicate increased risk for diabetes (prediabetes). Fasting plasma glucose results greater than or equal to 126 mg/dL meet the criteria for diagnosis of diabetes. In the absence of unequivocal hyperglycemia, results should be confirmed by repeat testing. In a patient with classic symptoms of hyperglycemia or hyperglycemic crisis, random plasma glucose results greater than or equal to 200 mg/dL meet the criteria for diagnosis of diabetes. Reference: Standards of Medical Care in Diabetes 2016, [place] [employer]. Diabetes Care. 2016.39(Suppl 1). Performed By: #### 2 4323-8, 3040-3 ####FERREIRA LABORATORYCLIA [id number] [address] STATES [facility] Potassium [Moles/Vol] 4.3 mmol/L Normal 3.7-5.1 [facility] Comment on above: Order Comment: Speci men Type: BLOOD SPECIMENOrdering Facility: [facility] Address: [address] [place] [address] Performed By: #### 2 4323-8, 0-3 ####FERREIRA LABORATORYCLIA [id number] [place] [address] [place] Protein [Mass/Vol] 6.9 g/dL Normal 6.3-8.0 [facility] Comment on above: Order Comment: Speci men Type: BLOOD SPECIMENOrdering Facility: [facility] Address: [address] [place] [address] Performed By: #### 2 4323-8, 0-3 ####FERREIRA LABORATORYCLIA [id number] [address] STATES OF [facility] Sodium [Moles/Vol] 139 mmol/L Normal 136-144 [facility] Comment on above: Order Comment: Speci men Type: BLOOD SPECIMENOrdering Facility: [facility] Address: [address] [place] [address] Performed By: #### 2 4323-8, 0-3 ####FERREIRA LABORATORYCLIA [id number] [address] [place] Urea nitrogen [Mass/Vol] 13 mg/dL Normal 7-21 [facility] Comment on above: Order Comment: Speci men Type: BLOOD SPECIMENOrdering Facility: [facility] Address: [address] [place] [address] Performed By: #### 2 4323-8, 3040-3 ####FERREIRA LABORATORYCLIA [id number] [place] [address] [place] ED NOTEon 03-17-2023 ED NOTE HNO ID: [id number] Author: Yan Barajas RN Service: Nursing Author Type: Registered Nurse Type: ED Notes Filed: 05/02/2022 8:35 PM Note Text: D/C instructions, medications and f/u reviewed with pt. [facility] ED NOTE HNO ID: [id number] Author: Annetta Martínez RN Service: Nursing Author Type: Registered Nurse Type: ED Notes Filed: 05/02/2022 5:30 PM Note Text: Pt is resting in a position of comfort Denies needs female is bedside [facility] ED NOTE HNO ID: [id number] Author: Magy Ordoñez RN Service: Nursing Author Type: Registered Nurse Type: ED Notes Filed: 05/02/2022 3:37 PM Note Text: Patient brought to ED by EMS. Patient reports she has been having right flank pain and believes she has a kidney stone. Patient states she has a conversion disorder and will have seizures when she has another illness presents. Patient was at work when she called EMS d/t flank pain and had seizure witnessed by coworkers after that [facility] ED NOTE HNO ID: [id number] Author: Lila Fraser RN Service: ? Author Type: Registered Nurse Type: ED Notes Filed: 05/02/2022 3:32 PM Note Text: Bed: ED-06 Expected date: Expected time: Means of arrival: Comments: Seizure - squad [facility] ED PROV NOTEon 05-02-2022 ED PROV NOTE HNO ID: [id number] Author: Puja Knox DO Service: Emergency Medicine Author Type: Physician Type: ED Provider Notes Filed: 05/02/2022 7:54 PM Note Text: ED Provider Note Patient Name: Kendall Vasques : 1985 SERVICE DATE: 05/02/22 History Patient presents with: Flank Pain Seizures 36-year-old female presents for evaluation of right flank pain. History of kidney stones and CKD stage II. States that she developed sudden onset right flank pain similar to prior kidney stones. She was at work. She became nauseated and began vomiting numerous times in the trash can. She states that she then was aided to the ground by coworkers and had seizure-like activity. 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 She had partial awareness throughout the episode and could hear people around her. She denies bowel or bladder incontinence, or tongue biting. There was no reported postictal phase. She did not sustain traumatic injuries. She has ongoing severe right flank pain with associated nausea. History provided by: Patient and medical records PAST MEDICAL HISTORY Diagnosis Date Asthma Hx of ovarian cyst Hx: UTI (urinary tract infection) Hypoglycemia 5 years ago Infectious mononucleosis Renal calculi Seizure disorder (HCC) Syncope and collapse PAST SURGICAL HISTORY Procedure Laterality Date CT ABDOMEN 09/10/[address] [facility] [address] BRAIN 06/19/05 [facility] LITHOTRIPSY XTRCORP SHOCK WAVE 04/2006 Lithotripsy Right kidney OVARY SURGERY HX 04/10/2013 Excision of right fallopian tube and ovary PAST SURGICAL HISTORY OF 2003 right ear cartilage repair TONSILLECTOMY AND ADENOIDECTOMY HX 12/2012 FAMILY HISTORY Problem Relation Age of Onset Stroke Father Seizures Sister 2 focal sezures Amblyopia Sister other (Hypoglycemia) Maternal Grandfather Social History Tobacco Use Smoking status: Never Smokeless tobacco: Never Substance and Sexual Activity Alcohol use: No Drug use: No Sexual activity: Yes Partners: Male control/protection: Pill ALLERGIES Allergen Reactions Adhesive Rash Codeine Hives, Vomiting Flagyl [Metronidazo* Other: See Comments SZ Nsaids (Non-Steroid* Other: See Comments Stage 2 kidney dx Topamax [Topiramate] GI Upset Review of Systems Constitutional: Positive for chills. Negative for activity change, diaphoresis and fever. HENT: Negative for dental problem, ear pain and sore throat. Eyes: Negative for photophobia, pain and visual disturbance. Respiratory: Negative for cough, chest tightness, shortness of breath and wheezing. Cardiovascular: Negative for chest pain. Gastrointestinal: Positive for nausea and vomiting. Negative for abdominal pain and diarrhea. Genitourinary: Positive for flank pain. Negative for difficulty urinating, dysuria, frequency and urgency. Musculoskeletal: Negative for arthralgias, back pain, myalgias, neck pain and neck stiffness. Skin: Negative for color change and rash. Neurological: Positive for seizures (seizure like activity, resolved). Negative for dizziness, syncope, weakness, light-headedness, numbness and headaches. Hematological: Negative for adenopathy. Psychiatric/Behavioral: Negative for agitation, behavioral problems, confusion and suicidal ideas. The patient is not nervous/anxious. All other systems reviewed and are negative. Physical Exam Vitals [05/02/22 1533] BP Pulse Temp Temp src Resp SpO2 Weight Height 125/68 (!) 111 36.7 ?C (98.1 ?F) Oral 16 100 % -- -- Physical Exam Vitals and nursing note reviewed. Constitutional: General: She is not in acute distress. Appearance: She is well-developed. HENT: Head: Normocephalic and atraumatic. Right Ear: External ear normal. Left Ear: External ear normal. Eyes: General: No scleral icterus. Right eye: No discharge. Left eye: No discharge. Conjunctiva/sclera: Conjunctivae normal. Pupils: Pupils are equal, round, and reactive to light. Neck: Trachea: No tracheal deviation. Cardiovascular: Rate and Rhythm: Regular rhythm. Tachycardia present. Heart sounds: Normal heart sounds. No murmur heard. Pulmonary: Effort: Pulmonary effort is normal. No respiratory distress. Breath sounds: Normal breath sounds. Abdominal: General: Bowel sounds are normal. There is no distension. Palpations: Abdomen is soft. There is no mass. Tenderness: There is no abdominal tenderness. There is right CVA tenderness. There is no guarding or rebound. Musculoskeletal: General: No tenderness. Normal range of motion. Cervical back: Normal range of motion and neck supple. Skin: General: Skin is warm and dry. Findings: No rash. Neurological: Mental Status: She is alert and oriented to person, place, and time. GCS: GCS eye subscore is 4. GCS verbal subscore is 5. GCS motor subscore is 6. Crani (more content not included)... Normal [facility] HCG QUAL BLDon 05-02-2022 HCG, QUALITATIVE Negative Normal Negative [facility] Comment on above: Order Comment: Speci men Type: BLOOD SPECIMENOrdering Facility: [facility] Address: [place] [address] Performed By: #### H ####DEEPWATER LABORATORYCLIA [id number] [place] [address] [place] Lipase SerPl-cCncon 05-03-19 23 Lipase [Catalytic activity/Vol] 38 U/L Normal 16- [facility] Comment on above: Order Comment: Speci men Type: BLOOD SPECIMENOrdering Facility: [facility] Address: [place] [address] Performed By: #### 2 4323-8, 3040-3 ####FERREIRA LABORATORYCLIA [id number] [place] [address] [place] US KIDNEY/BLADDERon 05-03-19 23 US KIDNEY/BLADDER * * *Final Report* * * DATE OF EXAM: May 02 2022 6:44PM THADDEUS 1055 - US KIDNEY/BLADDER / PROCEDURE REASON: Flank pain, kidney stone suspected * * * * Physician Interpretation * * * * EXAMINATION: RENAL ULTRASOUND CLINICAL HISTORY: Right flank pain TECHNIQUE: Sonography of the kidneys and urinary bladder was performed. Images were obtained and stored in a permanent archive. MQ: UR_1 COMPARISON: CT of the abdomen and pelvis 09/27/2021 and priors RESULT: Right Kidney: -Renal length: 10.9 cm -Parenchyma: Normal parenchymal echogenicity. Normal parenchymal thickness. -Collecting system: No hydronephrosis. -Calculus:. Punctate echogenic foci are present, without posterior acoustic shadowing or reverberation possibly small calculi as suggested on the CT of 04/2015 -Lesion: None. Left Kidney: -Renal length: 10.5 cm -Parenchyma: Normal parenchymal echogenicity. Normal parenchymal thickness. -Collecting system: No hydronephrosis. -Calculus: No echogenic, shadowing calculus to correlate for the punctate calcifications noted on the CT of 2015. -Lesion: None. Bladder: Normal sonographic appearance. Other: Visualized portions of the left adnexa demonstrate a 1.8 cm simple cystic structure, likely dominant follicle. IMPRESSION: 1. Few possibly punctate nonobstructing calculi are present in the right kidney. 2. No hydronephrosis. 3. Visualized portions of the bladder unremarkable. [employer]: PSC[employer] Transcribe Date/Time: May 02 2022 7:25P Dictated by : CHAY SHRE MD This examination was interpreted and the report reviewed and electronically signed by: CHAY SHER MD on May 02 2022 7:28PM EST [id number] Normal [facility] Urinalysis complete panel (U )on 05-02-2022 Bacteria LM.HPF (Urine sed) [#/Area] Few Abnormal None Seen [facility] Comment on above: Order Comment: Speci men Type: URINE SPECIMENOrdering Facility: [facility] Address: [address] [place] [address] Performed By: #### 2 4356-8 ####FERREIRA LABORATORYCLIA [id number] [place] [address] [place] Bilirubin Ql (U) Negative Normal Negative [facility] Comment on above: Order Comment: Speci men Type: URINE SPECIMENOrdering Facility: [facility] Address: [address] [place] [address] Performed By: #### 2 4356-8 ####FERREIRA LABORATORYCLIA [id number] [address] Clarity (Unsp spec) Clear Normal Clear [facility] Comment on above: Order Comment: Speci men Type: URINE SPECIMENOrdering Facility: [facility] Address: [address] [place] [address] Performed By: #### 2 4356-8 ####FERREIRA LABORATORYCLIA [id number] [address] [place] Color (U) Yellow Normal Yellow [facility] Comment on above: Order Comment: Speci men Type: URINE SPECIMENOrdering Facility: [facility] Address: [address] [place] [address] Performed By: #### 2 4356-8 ####FERREIRA LABORATORYCLIA [id number] [address] Epithelial cells LM.HPF (Urine sed) [#/Area] Moderate Normal [facility] Comment on above: Order Comment: Speci men Type: URINE SPECIMENOrdering Facility: [facility] Address: [address] [place] [address] Performed By: #### 2 4356-8 ####FERREIRA LABORATORYCLIA [id number] [place] [address] [place] [facility] [place] Glucose Test strip (U) [Mass/Vol] Negative Normal Negative [facility] Comment on above: Order Comment: Speci men Type: URINE SPECIMENOrdering Facility: [facility] Address: [address] [address] Performed By: #### 2 4356-8 ####FERREIRA LABORATORYCLIA [id number] [address] [place] Hemoglobin Ql (U) Negative Normal Negative, Trace [facility] Comment on above: Order Comment: Speci men Type: URINE SPECIMENOrdering Facility: [facility] Address: [address] [address] Performed By: #### 2 4356-8 ####FERREIRA LABORATORYCLIA [id number] [place] [address] [place] Ketones Ql (U) Negative Normal Negative [facility] Comment on above: Order Comment: Speci men Type: URINE SPECIMENOrdering Facility: [facility] Address: [address] [place] [address] Performed By: #### 2 4356-8 ####FERREIRA LABORATORYCLIA [id number] [address] [place] Leukocyte esterase Test strip Ql (U) Negative Normal Negative [facility] Comment on above: Order Comment: Speci men Type: URINE SPECIMENOrdering Facility: [facility] Address: [address] [place] [address] Performed By: #### 2 4356-8 ####FERREIRA LABORATORYCLIA [id number] [address] [place] Nitrite Ql (U) Negative Normal Negative [facility] Comment on above: Order Comment: Speci men Type: URINE SPECIMENOrdering Facility: [facility] Address: [address] [address] Performed By: #### 2 4356-8 ####FERREIRA LABORATORYCLIA [id number] [address] pH (U) 7.0 [pH] Normal 5.0-8.0 [facility] Comment on above: Order Comment: Speci men Type: URINE SPECIMENOrdering Facility: [facility] Address: [address] [address] Performed By: #### 2 4356-8 ####FERREIRA LABORATORYCLIA [id number] [address] Protein (U) [Mass/Vol] Negative Normal Negative [facility] Comment on above: Order Comment: Speci men Type: URINE SPECIMENOrdering Facility: [facility] Address: [address] [place] [address] Performed By: #### 2 4356-8 ####FERREIRA LABORATORYCLIA [id number] [address] STATES [facility] RBC LM.HPF (Urine sed) [#/Area] 0-3 /HPF Normal 0-3 /HPF [facility] Comment on above: Order Comment: Speci men Type: URINE SPECIMENOrdering Facility: [facility] Address: [address] [place] [address] Performed By: #### 2 4356-8 ####FERREIRA LABORATORYCLIA [id number] [address] Specific gravity (U) [Rel density] 1.020 Normal 1.005-1.03 0 [facility] Comment on above: Order Comment: Speci men Type: URINE SPECIMENOrdering Facility: [facility] Address: [address] [place] [address] Performed By: #### 2 4356-8 ####FERREIRA LABORATORYCLIA [id number] [address] Urobilinogen Ql (U) 0.2 EU/dL Normal 0.2-1.0 EU/dL [facility] Comment on above: Order Comment: Speci men Type: URINE SPECIMENOrdering Facility: [facility] Address: [address] [place] [address] Performed By: #### 2 4356-8 ####FERREIRA LABORATORYCLIA [id number] [address] WBC LM.HPF (Urine sed) [#/Area] 0-5 /HPF Normal 0-5 /HPF [facility] Comment on above: Order Comment: Speci men Type: URINE SPECIMENOrdering Facility: [facility] Address: [address] [place] [address] Performed By: #### 2 4356-8 ####JHON LABORATORYCLIA [id number] [place] [address] [place] Laboratory - Chemistry and C hemistry - challengeOrdered By: Dr. Short on 03-17-2022 HCG ( test) Ql (U) Negative [facility] Comment on above: Very dilute urine sp ecimens, as indicated by a low specificgravity, may not contain administrative representative levels of hCG. If is still suspected, a first morning urinespecimen should be collected 48 hours later and tested. Culture, urineOrdered By: Dr Mercedes Hi on 02-27-2022 Bacteria identified Cx Nom (U) Escherichia coli [facility] Bacteria identified Cx Nom (U) Streptococcus agalactiae (B) [facility] Absolute lymphocyte countOrd ered By: Dr. Hi on 02-24-2022 Lymphocytes Auto (Unsp spec) [#/Vol] 1.67 10*3/uL 0.83-4.51 [facility] Basophil percentageOrdered B y: Dr. Hi on 02-24-2022 Basophil percentage 0 SEEN /hpf 0-5 [facility] Basophils/100 WBC (Bld) 0.7 % 0-1 [facility] Chloride [Moles/Vol] 108 mmol/L 98-107 [facility] Eosinophils/100 WBC (Bld) 2.9 % 0-5 [facility] Glucose [Mass/Vol] 73 mg/dL 74-106 [facility] Neutrophils (Bld) [#/Vol] 1.9 10*3/uL 2.0-7.7 [facility] Neutrophils/100 WBC (Bld) 45.9 % 47-70 [facility] Potassium [Moles/Vol] 3.8 mmol/L 3.5-5.1 [facility] Comment on above: Slight Hemolysis, Re sult may be falsely increased. Sodium [Moles/Vol] 142 mmol/L 136-145 [facility] WBC (Bld) [#/Vol] 4.1 10*3/uL 4.4-11.0 [facility] Bilirubin Test strip Ql (U)O rdered By: Dr. Hi on 02-24-2022 Bilirubin Ql (U) Negative Negative [facility] Blood erythrocytes count (nu mber/volume)Ordered By: Dr. Hi on 02-24-2022 RBC (Bld) [#/Vol] 4.28 10*6/uL 4.2-5.[address] [facility] Blood hemoglobin measurement (mass/volume)Ordered By: Dr. Hi on 02-24-2022 Hemoglobin (Bld) [Mass/Vol] 13.0 g/dL 12.0-15.0 [facility] Blood lymphocytes/100 leukoc ytesOrdered By: Dr. Hi on 02-24-2022 Lymphocytes/100 WBC (Bld) 40.9 % 19-41 [facility] Blood monocytes/100 leukocyt esOrdered By: Dr. Hi on 02-24-2022 Monocytes/100 WBC (Bld) 9.1 % 0-10 [facility] Blood platelet mean volumeOr dered By: Dr. Hi on 02-24-2022 Platelet mean volume (Bld) [Entitic vol] 10.4 fL 6.2-12.0 [facility] Determination of erythrocyte mean corpuscular volume (MCV)Ordered By: Dr. Hi on 02-24-2022 MCV (RBC) [Entitic vol] 98.1 fL 81-99 [facility] Hematocrit Auto (Bld) [Volum e fraction]Ordered By: Dr. Hi on 02-24-2022 Hematocrit (Bld) [Volume fraction] 42.0 % 37-47 [facility] Ketones Test strip Ql (U)Ord ered By: Dr. Hi on 02-24-2022 Ketones Ql (U) Negative Negative [facility] Laboratory - Chemistry and C hemistry - challengeOrdered By: Dr. Hi on 02-24-2022 CO2 [Moles/Vol] 25.0 mmol/L 21.0-32.0 [facility] Urea nitrogen/Creatinine [Mass ratio] 14.4 mg/mg 10-20 [facility] Laboratory - Hematology and Cell countsOrdered By: Dr. Hi on 02-24-2022 Erythrocyte distribution width (RBC) [Entitic vol] 47.5 fL 35.1-43.9 [facility] Erythrocyte distribution width (RBC) [Ratio] 13.2 % 11.6-14.6 [facility] Immature granulocytes/100 WBC (Bld) 0.500 % 0.0-0.9 [facility] Comment on above: IG% - Immature Granu locytes (promyelocytes, myelocytes and metamyelocytes) > 1% indicates that a LEFT SHIFT is Present. MCH (RBC) [Entitic mass] 30.4 pg 27.0-32.0 [facility] Nucleated RBC/100 WBC (Bld) [Ratio] 0 % 0-5 [facility] MCHC Auto (RBC) [Mass/Vol]Or dered By: Dr. Hi on 02-24-2022 MCHC (RBC) [Mass/Vol] 31.0 g/dL 32-36 [facility] Mucus LM Ql (Urine sed)Order ed By: Dr. Hi on 02-24-2022 Mucus Ql (Urine sed) 0 SEEN /hpf [facility] Nitrite Test strip Ql (U)Ord ered By: Dr. Hi on 02-24-2022 Nitrite Ql (U) Positive Negative [facility] No Panel InformationOrdered By: Dr. Hi on 02-24-2022 Estimated Creatinine Clearance Calc 65.20 ml/min [facility] Estimated GFR (MDRD) Amer 77 mL/min >60 [facility] Comment on above: GFR Calc Estimated GFR (MDRD) Non-Af Amer 64 mL/min >60 [facility] Comment on above: Non- GFR Calc Platelets bldOrdered By: Dr. Hi on 02-24-2022 Platelets (Bld) [#/Vol] 205 10*3/uL 150-450 [facility] Protein Test strip Ql (U)Ord ered By: Dr. Hi on 02-24-2022 Protein Ql (U) 100 mg/dl Negative [facility] Serum or plasma calcium len urement (mass/volume)Ordered By: Dr. Hi on 02-24-2022 Calcium [Mass/Vol] 8.8 mg/dL 8.5-10.1 [facility] Serum or plasma creatinine m easurement (mass/volume)Ordered By: Dr. Hi on 02-24-2022 Creatinine [Mass/Vol] 1.04 mg/dL 0.55-1.02 [facility] Comment on above: The validity of the calculated GFR & GFRAA in patients over 70 years has not been determined. Clinical correlation is essential. Serum or plasma urea nitroge n measurement (mass/volume)Ordered By: Dr. Hi on 02-24-2022 Urea nitrogen [Mass/Vol] 15 mg/dL 7-18 [facility] Squamous epithelial cells de tection in urine sediment by light microscopyOrdered By: Dr. iH on 02-24-2022 Epithelial cells.squamous LM Ql (Urine sed) 0 SEEN /hpf 5-10 [facility] Thin prep Papanicolaou smear with manual screeningOrdered By: Dr. Hi on 02-24-2022 Thin prep Papanicolaou smear with manual screening 9 5-15 [facility] Urine blood detectionOrdered By: Dr. Hi on 02-24-2022 RBC Ql (U) 250 /ul Negative [facility] RBC Ql (U) 0 SEEN /hpf 0-5 [facility] Urine clarityOrdered By: Dr. Hi on 02-24-2022 Clarity (U) Sl. Cloudy Clear [facility] Urine color determinationOrd ered By: Dr. Hi on 02-24-2022 Color (U) Yellow Yellow [facility] Urine glucose detectionOrder ed By: Dr. Hi on 02-24-2022 Glucose Ql (U) Normal mg/dl Normal [facility] Urine leukocyte esterase det ection by dipstickOrdered By: Dr. Hi on 02-24-2022 Leukocyte esterase Test strip Ql (U) 100 /ul Negative [facility] Urine pHOrdered By: Dr. Lauren fitzgerald on 02-24-2022 pH (U) 6.0 [pH] 5.0 - 8.0 [facility] Urine sediment bacteria coun t by microscopy (number/high power field)Ordered By: Dr. Hi on 02-24-2022 Bacteria LM.HPF (Urine sed) [#/Area] 0 /[HPF] None Seen [facility] Urine specific gravity measu rementOrdered By: Dr. Hi on 02-24-2022 Specific gravity (U) [Rel density] 1.020 1.002-1.03 0 [facility] Urobilinogen Auto test strip Ql (U)Ordered By: Dr. Hi on 02-24-2022 Urobilinogen Ql (U) Normal mg/dl Normal [facility] Absolute lymphocyte countOrd ered By: Dr. Myers on 02-20-2022 Lymphocytes Auto (Unsp spec) [#/Vol] 1.98 10*3/uL 0.83-4.51 [facility] Basophil percentageOrdered B y: Dr. Myers on 02-20-2022 Basophils/100 WBC (Bld) 0.7 % 0-1 [facility] Bilirubin [Mass/Vol] 0.30 mg/dL 0.20-1.00 [facility] Comment on above: For patients on eltr ombopag therapy, use of Dimension [employer] TBIL is not recommended. Chloride [Moles/Vol] 110 mmol/L 98-107 [facility] Eosinophils/100 WBC (Bld) 1.6 % 0-5 [facility] Glucose [Mass/Vol] 77 mg/dL 74-106 [facility] Neutrophils (Bld) [#/Vol] 4.4 10*3/uL 2.0-7.7 [facility] Neutrophils/100 WBC (Bld) 61.8 % 47-70 [facility] Potassium [Moles/Vol] 3.7 mmol/L 3.5-5.1 [facility] Protein [Mass/Vol] 7.8 g/dL 6.4-8.2 [facility] Sodium [Moles/Vol] 140 mmol/L 136-145 [facility] Testosterone [Mass/Vol] 17 ng/dL 8-60 [facility] WBC (Bld) [#/Vol] 7.1 10*3/uL 4.4-11.0 [facility] Blood erythrocytes count (nu mber/volume)Ordered By: Dr. Myers on 02-20-2022 RBC (Bld) [#/Vol] 4.01 10*6/uL 4.2-5.[address] [facility] Blood hemoglobin measurement (mass/volume)Ordered By: Dr. Myers on 02-20-2022 Hemoglobin (Bld) [Mass/Vol] 11.9 g/dL 12.0-15.0 [facility] Blood lymphocytes/100 leukoc ytesOrdered By: Dr. Myers on 02-20-2022 Lymphocytes/100 WBC (Bld) 28.0 % 19-41 [facility] Blood monocytes/100 leukocyt esOrdered By: Dr. Myers on 02-20-2022 Monocytes/100 WBC (Bld) 7.6 % 0-10 [facility] Blood platelet mean volumeOr dered By: Dr. Myers on 02-20-2022 Platelet mean volume (Bld) [Entitic vol] 10.3 fL 6.2-12.0 [facility] Determination of erythrocyte mean corpuscular volume (MCV)Ordered By: Dr. Myers on 02-20-2022 MCV (RBC) [Entitic vol] 97.0 fL 81-99 [facility] Free testosterone percentage Ordered By: Dr. Myers on 02-20-2022 Testosterone Free/Testosterone.total [Mass fraction] 0.86 % 0.50-2.80 [facility] Comment on above: Performed at: [address] [id number] Director: Gume Sharpe PhD, Phone: [phone] at: [facility] [place] [id number] Director: Susannah Esqueda MD, Phone: [phone] Hematocrit Auto (Bld) [Volum e fraction]Ordered By: Dr. Myers on 02-20-2022 Hematocrit (Bld) [Volume fraction] 38.9 % 37-47 [facility] Laboratory - Chemistry and C hemistry - challengeOrdered By: Dr. Myers on 02-20-2022 ALP [Catalytic activity/Vol] 66 U/L 45-117 [facility] ALT [Catalytic activity/Vol] 21 U/L 13-56 [facility] CO2 [Moles/Vol] 27.0 mmol/L 21.0-32.0 [facility] Free T4 [Mass/Vol] 0.83 ng/dL 0.76-1.46 [facility] Globulin (S) [Mass/Vol] 3.8 g/dL 2.2-4.2 [facility] Urea nitrogen/Creatinine [Mass ratio] 14.5 mg/mg 10-20 [facility] Laboratory - Hematology and Cell countsOrdered By: Dr. Myers on 02-20-2022 Erythrocyte distribution width (RBC) [Entitic vol] 46.2 fL 35.1-43.9 [facility] Erythrocyte distribution width (RBC) [Ratio] 12.9 % 11.6-14.6 [facility] Immature granulocytes/100 WBC (Bld) 0.300 % 0.0-0.9 [facility] Comment on above: IG% - Immature Granu locytes (promyelocytes, myelocytes and metamyelocytes) > 1% indicates that a LEFT SHIFT is Present. MCH (RBC) [Entitic mass] 29.7 pg 27.0-32.0 [facility] Nucleated RBC/100 WBC (Bld) [Ratio] 0 % 0-5 [facility] MCHC Auto (RBC) [Mass/Vol]Or dered By: Dr. Myers on 02-20-2022 MCHC (RBC) [Mass/Vol] 30.6 g/dL 32-36 [facility] No Panel InformationOrdered By: Dr. Myers on 02-20-2022 Estimated GFR (MDRD) Amer 73 mL/min >60 [facility] Comment on above: GFR Calc Estimated GFR (MDRD) Non-Af Amer 60 mL/min >60 [facility] Comment on above: Non- GFR Calc Follicle Stimulating Hormone 21.9 mIU/mL [facility] Comment on above: NORMAL REFERENCE RAN [facility] FEMALE FOLLICULAR 2.3 - 12.6 mIU/mL MID-CYCLE PEAK 5.2 - 17.5 mIU/mL LUTEAL 1.7 - 12.9 mIU/mL POST-MENOPAUSAL ON MHT 5.9 - 72.8 mIU/mL NOT ON MHT 12.7 - 132.2 mlU/mL MALE 0.7 - 10.8 mIU/mL Luteinizing Hormone 10.2 mIU/mL [facility] Comment on above: NORMAL REFERENCE RAN GES FEMALE FOLLICULAR 1.9 - 26.2 mIU/mL MID-CYCLE PEAK 22.8 - 76.1 mIU/mL LUTEAL 0.6 - 16.6 mIU/mL POST-MENOPAUSAL ON MHT 1.1 - 52.4 mIU/mL NOT ON MHT 8.6 - 61.8 mIU/mL MALE 1.2 - 10.6 mIU/mL Thyroid Stimulating Hormone (TSH) 0.74 uIU/mL 0.358-3.74 [facility] Platelets bldOrdered By: Dr. Myers on 02-20-2022 Platelets (Bld) [#/Vol] 228 10*3/uL 150-450 [facility] Serum or plasma albumin len urement (mass/volume)Ordered By: Dr. Myers on 02-20-2022 Albumin [Mass/Vol] 4.0 g/dL 3.2-5.0 [facility] Serum or plasma albumin/glob ulin mass ratioOrdered By: Dr. Myers on 02-20-2022 Albumin/Globulin [Mass ratio] 1.1 {ratio} 0.9-2.4 [facility] Serum or plasma calcium len urement (mass/volume)Ordered By: Dr. Myers on 02-20-2022 Calcium [Mass/Vol] 9.2 mg/dL 8.5-10.1 [facility] Serum or plasma choriogonado tropin detectionOrdered By: Dr. Myers on 02-20-2022 HCG ( test) Ql < 1 mIU/mL <4 [facility] Comment on above: hCG levels with Gest ational AgeGestational Age hCG mIU/mL (IU/L)0.2 - 1 week 5 - 501-2 weeks 50 - 5002-3 weeks 100 - 86664-6 weeks 500 - 006455-7 weeks 1000 - 524417-8 weeks 57275 - 100,0006-8 weeks 82801 - 200,0002-3 months 04884 - 100,000 Serum or plasma creatinine m easurement (mass/volume)Ordered By: Dr. Myers on 02-20-2022 Creatinine [Mass/Vol] 1.10 mg/dL 0.55-1.02 [facility] Comment on above: The validity of the calculated GFR & GFRAA in patients over 70 years has not been determined. Clinical correlation is essential. Serum or plasma estradiol (E 2) measurement (mass/volume)Ordered By: Dr. Myers on 02-20-2022 E2 [Mass/Vol] 22.0 pg/mL [facility] Comment on above: NORMAL REFERENCE RAN GES FEMALE FOLLICULAR 21.4 - 164.8 pg/mL MID-CYCLE PEAK 49.9 - 367.2 pg/mL LUTEAL 40.2 - 259.0 pg/mL POST-MENOPAUSAL ON MHT <11.0 - 462.1 pg/mL NOT ON MHT <11.0 - 58.3 pg/mL MALE <11.0 - 52.5 pg/mL NOTE:[employer] HAS CONFIRMED THE DRUG FULVETRANT (FASLODEX) MAY CAUSE FALSELY ELEVATED ESTRADIOL RESULTS WHEN USING THIS TEST METHOD. IF PATIENT IS TAKING FULVESTRANT AN ALTERNATIVE METHOD SHOULD BE USED TO DETERMINE ESTRADIOL CONCENTRATION. Serum or plasma testosterone free measurement (mass/volume)Ordered By: Dr. Myers on 02-20-2022 Testosterone Free [Mass/Vol] 0.15 ng/dL 0.10-0.85 [facility] Serum or plasma urea nitroge n measurement (mass/volume)Ordered By: Dr. Myers on 02-20-2022 Urea nitrogen [Mass/Vol] 16 mg/dL 7-18 [facility] Thin prep Papanicolaou smear with manual screeningOrdered By: Dr. Myers on 02-20-2022 Thin prep Papanicolaou smear with manual screening 15 U/L 15-37 [facility] Thin prep Papanicolaou smear with manual screening 3 5-15 [facility] Absolute lymphocyte countOrd ered By: Dr. Rodriguez on 01-06-2022 Lymphocytes Auto (Unsp spec) [#/Vol] 2.94 10*3/uL 0.83-4.51 [facility] Basophil percentageOrdered B y: Dr. Rodriguez on 01-06-2022 Basophils/100 WBC (Bld) 0.7 % 0-1 [facility] Chloride [Moles/Vol] 106 mmol/L 98-107 [facility] Eosinophils/100 WBC (Bld) 2.2 % 0-5 [facility] Glucose [Mass/Vol] 90 mg/dL 74-106 [facility] Neutrophils (Bld) [#/Vol] 3.7 10*3/uL 2.0-7.7 [facility] Neutrophils/100 WBC (Bld) 50.1 % 47-70 [facility] Potassium [Moles/Vol] 3.4 mmol/L 3.5-5.1 [facility] Sodium [Moles/Vol] 140 mmol/L 136-145 [facility] WBC (Bld) [#/Vol] 7.3 10*3/uL 4.4-11.0 [facility] Blood erythrocytes count (nu mber/volume)Ordered By: Dr. Rodriguez on 01-06-2022 RBC (Bld) [#/Vol] 4.25 10*6/uL 4.2-5.[address] [facility] Blood hemoglobin measurement (mass/volume)Ordered By: Dr. Rodriguez on 01-06-2022 Hemoglobin (Bld) [Mass/Vol] 12.8 g/dL 12.0-15.0 [facility] Blood lymphocytes/100 leukoc ytesOrdered By: Dr. Rodriguez on 01-06-2022 Lymphocytes/100 WBC (Bld) 40.1 % 19-41 [facility] Blood monocytes/100 leukocyt esOrdered By: Dr. Rodriguez on 01-06-2022 Monocytes/100 WBC (Bld) 6.5 % 0-10 [facility] Blood platelet mean volumeOr dered By: Dr. Rodriguez on 01-06-2022 Platelet mean volume (Bld) [Entitic vol] 10.3 fL 6.2-12.0 [facility] Determination of erythrocyte mean corpuscular volume (MCV)Ordered By: Dr. Rodriguez on 01-06-2022 MCV (RBC) [Entitic vol] 95.1 fL 81-99 [facility] Hematocrit Auto (Bld) [Volum e fraction]Ordered By: Dr. Rodriguez on 01-06-2022 Hematocrit (Bld) [Volume fraction] 40.4 % 37-47 [facility] Laboratory - Chemistry and C hemistry - challengeOrdered By: Dr. Rodriguez on 01-06-2022 CO2 [Moles/Vol] 25.0 mmol/L 21.0-32.0 [facility] Urea nitrogen/Creatinine [Mass ratio] 16.5 mg/mg 10-20 [facility] Laboratory - Hematology and Cell countsOrdered By: Dr. Rodriguez on 01-06-2022 Erythrocyte distribution width (RBC) [Entitic vol] 47.7 fL 35.1-43.9 [facility] Erythrocyte distribution width (RBC) [Ratio] 13.6 % 11.6-14.6 [facility] Immature granulocytes/100 WBC (Bld) 0.400 % 0.0-0.9 [facility] Comment on above: IG% - Immature Granu locytes (promyelocytes, myelocytes and metamyelocytes) > 1% indicates that a LEFT SHIFT is Present. MCH (RBC) [Entitic mass] 30.1 pg 27.0-32.0 [facility] Nucleated RBC/100 WBC (Bld) [Ratio] 0 % 0-5 [facility] MCHC Auto (RBC) [Mass/Vol]Or dered By: Dr. Rodriguez on 01-06-2022 MCHC (RBC) [Mass/Vol] 31.7 g/dL 32-36 [facility] No Panel InformationOrdered By: Dr. Rodriguez on 01-06-2022 Estimated Creatinine Clearance Calc 69.90 ml/min [facility] Estimated GFR (MDRD) Amer 84 mL/min >60 [facility] Comment on above: GFR Calc Estimated GFR (MDRD) Non-Af Amer 70 mL/min >60 [facility] Comment on above: Non- GFR Calc Troponin I High Sensitivity 4 pg/mL 3.0-54.0 [facility] Comment on above: Please Note: New Dipti t Units and Gender Specific Reference Ranges. For more information see Policy Stat Procedure [employer] High Sensitivity Troponin (TNIH) and attachments. Platelets bldOrdered By: Dr. Rodriguez on 01-06-2022 Platelets (Bld) [#/Vol] 225 10*3/uL 150-450 [facility] Serum or plasma calcium len urement (mass/volume)Ordered By: Dr. Rodriguez on 01-06-2022 Calcium [Mass/Vol] 9.1 mg/dL 8.5-10.1 [facility] Serum or plasma creatinine m easurement (mass/volume)Ordered By: Dr. Rodriguez on 01-06-2022 Creatinine [Mass/Vol] 0.97 mg/dL 0.55-1.02 [facility] Comment on above: The validity of the calculated GFR & GFRAA in patients over 70 years has not been determined. Clinical correlation is essential. Serum or plasma urea nitroge n measurement (mass/volume)Ordered By: Dr. Rodriguez on 01-06-2022 Urea nitrogen [Mass/Vol] 16 mg/dL 7-18 [facility] Thin prep Papanicolaou smear with manual screeningOrdered By: Dr. Rodriguez on 01-06-2022 Thin prep Papanicolaou smear with manual screening 9 5-15 [facility] Progress Noteon 12-18-2021 Progress Note You are not granted access to view this sensitive note. Normal [facility] CBCon 12-09-2021 ABSOLUTE BAS 0.0 10*3/uL Normal 0.0-0.2 [facility] Comment on above: Performed By: #### A CBCLAYO MG #### Testing performed at [address] [address] ABSOLUTE EOS 0.1 10*3/uL Normal 0.0-0.7 [facility] Comment on above: Performed By: #### A CBCLAYO MG #### Testing performed at [address] [address] ABSOLUTE NEUTROPHIL COUNT 3.4 10*3/uL Normal 1.4-6.5 [facility] Comment on above: Performed By: #### A CBCLAYO MG #### Testing performed at [address] [address] Basophils/100 WBC (Bld) 0.6 % Normal 0.0-2.0 [facility] Comment on above: Performed By: #### A CBCLAYO MG #### Testing performed at [address] [address] DTYPE AUTO DIFF Normal [facility] Comment on above: Performed By: #### A CBCLAYO MG #### Testing performed at [address] [address] Eosinophils/100 WBC (Bld) 1.2 % Normal 0.0-11.0 [facility] Comment on above: Performed By: #### A CBCLAYO MG #### Testing performed at [address] [address] Lymphocytes (Bld) [#/Vol] 2.8 10*3/uL Normal 1.2-3.4 [facility] Comment on above: Performed By: #### A CBCLAYO MG #### Testing performed at [address] [place] [address] Lymphocytes/100 WBC (Bld) 40.6 % Normal 20.0-55.0 [facility] Comment on above: Performed By: #### A LAYO SCHMITZ MG #### Testing performed at [address] [address] Monocytes (Bld) [#/Vol] 0.6 10*3/uL Normal 0.0-0.7 [facility] Comment on above: Performed By: #### A CBCLAYO MG #### Testing performed at [address] [address] Monocytes/100 WBC (Bld) 8.3 % Normal 0.0-10.0 [facility] Comment on above: Performed By: #### A CBCLAYO MG #### Testing performed at [address] [address] Neutrophils/100 WBC (Bld) 49.3 % Normal 37.0-75.0 [facility] Comment on above: Performed By: #### A CBCLAYO MG #### Testing performed at [address] [place] [address] Erythrocyte distribution width (RBC) [Ratio] 14.2 % Normal 11.5-14.5 [facility] Comment on above: Performed By: #### A CBCLAYO MG #### Testing performed at [address] [address] Hematocrit (Bld) [Volume fraction] 42.0 % Normal 36.0-48.0 [facility] Comment on above: Performed By: #### A CBCLAYO MG #### Testing performed at [address] [place] [address] Hemoglobin (Bld) [Mass/Vol] 13.5 g/dL Normal 12.0-16.0 [facility] Comment on above: Performed By: #### A CBCLAYO MG #### Testing performed at [address] [address] MCH (RBC) [Entitic mass] 29.9 pg Normal 26.0-35.0 [facility] Comment on above: Performed By: #### A CBC, RENF, MG #### Testing performed at [address] [address] MCHC (RBC) [Mass/Vol] 32.3 g/dL Normal 27.0-37.0 [facility] Comment on above: Performed By: #### A CBC RENF, MG #### Testing performed at [address] [address] MCV (RBC) [Entitic vol] 92.7 fL Normal 80.0-100.0 [facility] Comment on above: Performed By: #### A CBC RENF, MG #### Testing performed at [address] [address] Platelet mean volume (Bld) [Entitic vol] 7.9 fL Normal 7.4-11.0 [facility] Comment on above: Performed By: #### A CBC RENF, MG #### Testing performed at [address] [address] Platelets (Bld) [#/Vol] 183 10*3/uL Normal 130. 0-400. 0 [facility] Comment on above: Performed By: #### A CBC RENF, MG #### Testing performed at [address] [address] RBC (Bld) [#/Vol] 4.53 10*6/uL Normal 4.0-5.4 [facility] Comment on above: Performed By: #### A CBC, RENF, MG #### Testing performed at [address] [address] WBC (Bld) [#/Vol] 6.8 10*3/uL Normal 3.6-11.0 [facility] Comment on above: Performed By: #### A CBC, RENF, MG #### Testing performed at [address] [address] MAGNESIUMon 12-09-2021 Magnesium [Mass/Vol] 1.8 mg/dL Normal 1.6-2.3 [facility] Comment on above: Performed By: #### A CBC, RENF, MG #### Testing performed at [address] [address] RENAL PANEL,FASTINGon 2021 ALBUMIN 4.7 G/dl Normal 3.5-5.0 [facility] Comment on above: Performed By: #### A LAYO SCHMITZ MG #### Testing performed at [place] [id number] Calcium [Mass/Vol] 9.7 mg/dL Normal 8.4-10.2 [facility] Comment on above: Performed By: #### A LAYO SCHMITZ MG #### Testing performed at [place] [id number] Chloride [Moles/Vol] 103 mmol/L Normal 98-107 [facility] Comment on above: Performed By: #### A LAYO SCHMITZ MG #### Testing performed at [place] [id number] CO2 [Moles/Vol] 26 mmol/L Normal 22-30 [facility] Comment on above: Performed By: #### A LAYO SCHMITZ MG #### Testing performed at [place] [id number] Creatinine [Mass/Vol] 0.75 mg/dL Normal 0.52-1.04 [facility] Comment on above: Performed By: #### A LAYO SCHMITZ MG #### Testing performed at [address] [address] EST. GFR, 113 ml/min/1.73sq.m [facility] Comment on above: Performed By: #### A LAYO SCHMITZ MG #### Testing performed at [address] [address] EST. GFR,Non 93 ml/min/1.73sq.m [facility] Comment on above: Performed By: #### A LAYO SCHMITZ MG #### Testing performed at [address] [address] GFR Information Average GFR for 30-3 9 years old = 107. Normal [facility] Comment on above: Result Comment: Scroll Machine Operator zach Kidney disease, GFR = <60. Kidney failure, GFR = <15. The GFR estimate is not adjusted for extreme body surface area or acute process, nor has it been validated for women or ethnic groups other than and . Performed By: #### A CBCLAYO MG #### Testing performed at [address] [address] Glucose [Mass/Vol] 80 mg/dL Normal 70-100 [facility] Comment on above: Result Comment: NORMAL <100 mg/dL PREDIABETES 101-126 mg/dL DIABETES 126 mg/dL or higher Performed By: #### A CBCLAYO MG #### Testing performed at [address] [address] PHOSPHOROUS 2.7 MG/DL Normal 2.5-4.5 [facility] Comment on above: Performed By: #### A LAYO SCHMITZ MG #### Testing performed at [address] [address] Potassium [Moles/Vol] 3.6 mmol/L Normal 3.5-5.1 [facility] Comment on above: Performed By: #### A CBCLAYO MG #### Testing performed at [address] [address] Sodium [Moles/Vol] 139 mmol/L Normal 136-145 [facility] Comment on above: Performed By: #### A LAYO SCHMITZ MG #### Testing performed at [address] [address] Urea nitrogen [Mass/Vol] 15 mg/dL Normal 7-20 [facility] Comment on above: Performed By: #### A CBCLAYO MG #### Testing performed at [address] [address] URINE MACROSCOPICon 24-20 22 Bilirubin Ql (U) Negative Normal NEGATIVE [facility] Comment on above: Performed By: #### A CBCLAYO MG #### Testing performed at [address] [address] Clarity (U) CLEAR Normal CLEAR [facility] Comment on above: Performed By: #### A CBCLENARDF, MG #### Testing performed at [address] [address] Color (U) YELLOW Normal YELLOW [facility] Comment on above: Performed By: #### A CBC, RENF, MG #### Testing performed at [address] [address] Glucose Ql (U) Negative Normal NEGATIVE [facility] Comment on above: Performed By: #### A CBC, RENF, MG #### Testing performed at [address] [address] pH (U) 5.5 [pH] Normal 5.0-7.0 [facility] Comment on above: Performed By: #### A CBC, RENF, MG #### Testing performed at [address] [address] URINE HEMOGLOBIN Negative Normal NEGATIVE [facility] Comment on above: Performed By: #### A CBC, RENF, MG #### Testing performed at [address] [address] URINE KETONE TRACE Abnormal NEGATIVE [facility] Comment on above: Performed By: #### A CBC, RENF, MG #### Testing performed at [address] [address] URINE LEUKOTEST Negative Normal NEGATIVE [facility] Comment on above: Performed By: #### A CBC, RENF, MG #### Testing performed at [address] [address] URINE NITRATES Negative Normal NEGATIVE [facility] Comment on above: Performed By: #### A CBC, RENF, MG #### Testing performed at [address] [address] URINE SPEC GRAVITY >1.030 High 1.010-1.[address] [place] [address] Comment on above: Performed By: #### A CBC, RENF, MG #### Testing performed at [address] [address] URINE TOTAL PROTEIN TRACE Abnormal NEGATIVE [facility] Comment on above: Performed By: #### A CBC, RENF, MG #### Testing performed at [address] [address] Urobilinogen Qn (U) 0.2 {Nadia'U}/dL Normal 0.2-1.0 [facility] Comment on above: Performed By: #### A CBC, RENF, MG #### Testing performed at [address] [address] URINE MICROSCOPICon 12-10-19 22 Bacteria LM.HPF (Urine sed) [#/Area] Negative Normal NEGATIVE [facility] Comment on above: Performed By: #### A CBC, RENF, MG #### Testing performed at [address] [address] CASTS NONE Normal NONE [facility] Comment on above: Performed By: #### A CBC, RENF, MG #### Testing performed at [address] [address] CRYSTAL RARE Abnormal NONE [facility] Comment on above: Result Comment: CA O XALATE CRYSTALS Performed By: #### A CBC RENF, MG #### Testing performed at [address] [address] Epithelial cells LM Ql (Urine sed) 5 TO 10 Normal [facility] Comment on above: Performed By: #### A CBC, RENF, MG #### Testing performed at [address] [address] Mucus Ql (Urine sed) 1+ Abnormal NEGATIVE [facility] Comment on above: Performed By: #### A CBC RENF, MG #### Testing performed at [address] [address] URINE COMMENT CULTURE CRITERIA NOT MET, NO CULTURE PERFORMED. Normal [facility] Comment on above: Performed By: #### A CBC, RENF, MG #### Testing performed at [address] [address] URINE RBC'S 1 TO 5 Normal NEGATIVE [facility] Comment on above: Performed By: #### A CBC, RENF, MG #### Testing performed at [address] [address] URINE WBC'S 1 TO 5 Normal NEGATIVE [facility] Comment on above: Performed By: #### A CBC, RENF, MG #### Testing performed at [address] [address] URINE SODIUM RANDOMon 2021 Sodium (U) [Moles/Vol] 50 mmol/L Normal [facility] Comment on above: Performed By: #### A CBC, RENF, MG #### Testing performed at [address] [address] URINE CULTUREon 11-13-2021 Bacteria identified Cx Nom (U) SPECIMEN DESCRIPTION URINE CLEAN CATCH UA DIPSTICK LEUKOCYTE POSITIVE * Result Note: NITRITE POSITIVE * CULTURE ESCHERICHIA COLI * Result Note: >100,000 C/C/ML * * Result Note: Testing performed at [place] [address] * REPORT STATUS 11/13/2021 * Result Note: FINAL * - ORGANISM ESCHERICHIA COLI * Result Note: ESCHERICHIA COLI * METHOD LATOYA AMPICILLIN 4 SUSCEPTIBLE AMPICILLIN/SULBACTAM <=2 SUSCEPTIBLE CEFTRIAXONE <=1 SUSCEPTIBLE CEFAZOLIN <=4 SUSCEPTIBLE IMIPENEM <=0.25 SUSCEPTIBLE GENTAMICIN <=1 SUSCEPTIBLE TRIMETH-SULFA <=20 SUSCEPTIBLE AMOXICILLIN/CLAVULANIC A <=2 SUSCEPTIBLE NITROFURANTOIN <=16 SUSCEPTIBLE PIPERACILLIN/TAZOBACTAM <=4 SUSCEPTIBLE LEVOFLOXACIN <=0.12 SUSCEPTIBLE ESBL NEGATIVE ERTAPENEM <=0.5 SUSCEPTIBLE CEFTAZIDIME <=1 SUSCEPTIBLE Normal [facility] Comment on above: Performed By: #### A CBC, RENF, MG #### Testing performed at [address] [address] Absolute lymphocyte counton 10-25-2021 Lymphocytes Auto (Unsp spec) [#/Vol] 3.18 10*3/uL 0.83-4.51 [facility] Work Phone: Basophil percentageon 2021 Basophil percentage 0-5 SEEN /hpf 0-5 [facility] Work Phone: Basophils/100 WBC (Bld) 0.6 % 0-1 [facility] Work Phone: Eosinophils/100 WBC (Bld) 1.8 % 0-5 [facility] Work Phone: Neutrophils (Bld) [#/Vol] 3.8 10*3/uL 2.0-7.7 [facility] Work Phone: Neutrophils/100 WBC (Bld) 48.8 % 47-70 [facility] Work Phone: WBC (Bld) [#/Vol] 7.8 10*3/uL 4.4-11.0 [facility] Work Phone: Bilirubin [Mass/Vol] 0.40 mg/dL 0.20-1.00 [facility] Work Phone: Comment on above: For patients on eltr ombopag therapy, use of Dimension [employer] TBIL is not recommended. Chloride [Moles/Vol] 106 mmol/L 98-107 [facility] Work Phone: Glucose [Mass/Vol] 101 mg/dL 74-106 [facility] Work Phone: Comment on above: Fasting Glucose resu lt from 100 to 125 mg/dL suggests IMPAIRED HOMEOSTASIS per A.D.A. criteria. Potassium [Moles/Vol] 4.4 mmol/L 3.5-5.1 [facility] Work Phone: Comment on above: Moderate Hemolysis, Result may be falsely increased. Protein [Mass/Vol] 8.2 g/dL 6.4-8.2 [facility] Work Phone: Sodium [Moles/Vol] 138 mmol/L 136-145 [facility] Work Phone: Bilirubin Test strip Ql (U)o n 10-25-2021 Bilirubin Ql (U) Negative Negative [facility] Work Phone: Blood erythrocytes count (nu mber/volume)on 10-25-2021 RBC (Bld) [#/Vol] 3.93 10*6/uL 4.2-5.[address] [facility] Work Phone: Blood hemoglobin measurement (mass/volume)on 10-25-2021 Hemoglobin (Bld) [Mass/Vol] 11.8 g/dL 12.0-15.0 [facility] Work Phone: Blood lymphocytes/100 leukoc yteson 10-25-2021 Lymphocytes/100 WBC (Bld) 40.7 % 19-41 [facility] Work Phone: Blood monocytes/100 leukocyt eson 10-25-2021 Monocytes/100 WBC (Bld) 7.6 % 0-10 [facility] Work Phone: Blood platelet adequacy dete ction by light microscopyon 10-25-2021 Platelets LM Ql (Bld) [facility] Work Phone: Blood platelet mean volumeon 10-25-2021 Platelet mean volume (Bld) [Entitic vol] 10.9 fL 6.2-12.0 [facility] Work Phone: Determination of erythrocyte mean corpuscular volume (MCV)on 10-25-2021 MCV (RBC) [Entitic vol] 91.1 fL 81-99 [facility] Work Phone: Hematocrit Auto (Bld) [Volum e fraction]on 10-25-2021 Hematocrit (Bld) [Volume fraction] 35.8 % 37-47 [facility] Work Phone: Ketones Test strip Ql (U)on 10-25-2021 Ketones Ql (U) Negative Negative [facility] Work Phone: Laboratory - Chemistry and C hemistry - challengeon 10-25-2021 ALP [Catalytic activity/Vol] 62 U/L 45-117 [facility] Work Phone: ALT [Catalytic activity/Vol] 18 U/L 13-56 [facility] Work Phone: CO2 [Moles/Vol] 28.0 mmol/L 21.0-32.0 [facility] Work Phone: Globulin (S) [Mass/Vol] 4.0 g/dL 2.2-4.2 [facility] Work Phone: Lipase [Catalytic activity/Vol] 147 U/L 73-393 [facility] Work Phone: Urea nitrogen/Creatinine [Mass ratio] 12.5 mg/mg 10-20 [facility] Work Phone: Laboratory - Hematology and Cell countson 10-25-2021 Anisocytosis Ql (Bld) RARE [facility] Work Phone: Erythrocyte distribution width (RBC) [Entitic vol] 43.3 fL 35.1-43.9 [facility] Work Phone: Erythrocyte distribution width (RBC) [Ratio] 13.0 % 11.6-14.6 [facility] Work Phone: Immature granulocytes/100 WBC (Bld) 0.500 % 0.0-0.9 [facility] Work Phone: Comment on above: IG% - Immature Granu locytes (promyelocytes, myelocytes and metamyelocytes) > 1% indicates that a LEFT SHIFT is Present. MCH (RBC) [Entitic mass] 30.0 pg 27.0-32.0 [facility] Work Phone: Nucleated RBC/100 WBC (Bld) [Ratio] 0 % 0-5 [facility] Work Phone: MCHC Auto (RBC) [Mass/Vol]on 10-25-2021 MCHC (RBC) [Mass/Vol] 33.0 g/dL 32-36 [facility] Work Phone: Macrocytes detectionon 10-25 Macrocytes Ql (Bld) RARE [facility] Work Phone: Mucus LM Ql (Urine sed)on Mucus Ql (Urine sed) 0 SEEN /hpf [facility] Work Phone: Nitrite Test strip Ql (U)on 10-25-2021 Nitrite Ql (U) Negative Negative [facility] Work Phone: No Panel Informationon 10-25 Estimated Creatinine Clearance Calc 71.30 ml/min [facility] Work Phone: Estimated GFR (MDRD) Amer 85 mL/min >60 [facility] Work Phone: Comment on above: GFR Calc Estimated GFR (MDRD) Non-Af Amer 71 mL/min >60 [facility] Work Phone: Comment on above: Non- GFR Calc Platelets bldon 10-25-2021 Platelets (Bld) [#/Vol] 133 10*3/uL 150-450 [facility] Work Phone: Protein Test strip Ql (U)on 10-25-2021 Protein Ql (U) Negative Negative [facility] Work Phone: RBC morphologyon 10-25-2021 RBC morphology finding Nom (Bld) N CHROM NORMAL NORM C&C [facility] Work Phone: Serum or plasma albumin len urement (mass/volume)on 10-25-2021 Albumin [Mass/Vol] 4.2 g/dL 3.2-5.0 [facility] Work Phone: Serum or plasma albumin/glob ulin mass ratioon 10-25-2021 Albumin/Globulin [Mass ratio] 1.0 {ratio} 0.9-2.4 [facility] Work Phone: Serum or plasma calcium len urement (mass/volume)on 10-25-2021 Calcium [Mass/Vol] 9.5 mg/dL 8.5-10.1 [facility] Work Phone: Serum or plasma creatinine m easurement (mass/volume)on 10-25-2021 Creatinine [Mass/Vol] 0.96 mg/dL 0.55-1.02 [facility] Work Phone: Comment on above: The validity of the calculated GFR & GFRAA in patients over 70 years has not been determined. Clinical correlation is essential. Serum or plasma urea nitroge n measurement (mass/volume)on 10-25-2021 Urea nitrogen [Mass/Vol] 12 mg/dL 7-18 [facility] Work Phone: Squamous epithelial cells de tection in urine sediment by light microscopyon 10-25-2021 Epithelial cells.squamous LM Ql (Urine sed) 0-5 SEEN /hpf 5-10 [facility] Work Phone: Thin prep Papanicolaou smear with manual screeningon 10-25-2021 Thin prep Papanicolaou smear with manual screening 27 U/L 15-37 [facility] Work Phone: Comment on above: Moderate Hemolysis, Result may be falsely increased. Thin prep Papanicolaou smear with manual screening 4 5-15 [facility] Work Phone: Urine blood detectionon RBC Ql (U) Negative Negative [facility] Work Phone: RBC Ql (U) 0 SEEN /hpf 0-5 [facility] Work Phone: Urine clarityon 10-25-2021 Clarity (U) Sl. Cloudy Clear [facility] Work Phone: Urine color determinationon 10-25-2021 Color (U) Yellow Yellow [facility] Work Phone: Urine glucose detectionon Glucose Ql (U) Normal mg/dl Normal [facility] Work Phone: Urine leukocyte esterase det ection by dipstickon 10-25-2021 Leukocyte esterase Test strip Ql (U) Negative Negative [facility] Work Phone: Urine pHon 10-25-2021 pH (U) 6.0 [pH] 5.0 - 8.0 [facility] Work Phone: Urine sediment bacteria coun t by microscopy (number/high power field)on 10-25-2021 Bacteria LM.HPF (Urine sed) [#/Area] 0 /[HPF] None Seen [facility] Work Phone: Urine specific gravity measu rementon 10-25-2021 Specific gravity (U) [Rel density] 1.010 1.002-1.03 0 [facility] Work Phone: Urobilinogen Auto test strip Ql (U)on 10-25-2021 Urobilinogen Ql (U) Normal mg/dl Normal [facility] Work Phone: Glucose Glucometer (BldC) [M ass/Vol]on 10-23-2021 Glucose [Mass/Vol] 71 mg/dL 74-106 [facility] Work Phone: Comment on above: MANAGEMENT OF PATIEN T CARE PER NURSING PROTOCOL Laboratory - Chemistry and C hemistry - challengeon 10-23-2021 HCG ( test) Ql (U) Negative [facility] Work Phone: Comment on above: Very dilute urine sp ecimens, as indicated by a low specificgravity, may not contain administrative representative levels of hCG. If is still suspected, a first morning urinespecimen should be collected 48 hours later and tested. Absolute lymphocyte counton 10-20-2021 Lymphocytes Auto (Unsp spec) [#/Vol] 3.01 10*3/uL 0.83-4.51 [facility] Work Phone: Basophil percentageon 2021 Basophils/100 WBC (Bld) 0.7 % 0-1 [facility] Work Phone: Bilirubin [Mass/Vol] 0.30 mg/dL 0.20-1.00 [facility] Work Phone: Comment on above: For patients on eltr ombopag therapy, use of Dimension [employer] TBIL is not recommended. Chloride [Moles/Vol] 111 mmol/L 98-107 [facility] Work Phone: Eosinophils/100 WBC (Bld) 2.4 % 0-5 [facility] Work Phone: Glucose [Mass/Vol] 116 mg/dL 74-106 [facility] Work Phone: Comment on above: Fasting Glucose resu lt from 100 to 125 mg/dL suggests IMPAIRED HOMEOSTASIS per A.D.A. criteria. Lactate [Moles/Vol] 1.0 mmol/L 0.4-2.[address] [facility] Work Phone: Neutrophils (Bld) [#/Vol] 3.3 10*3/uL 2.0-7.7 [facility] Work Phone: [phone] Neutrophils/100 WBC (Bld) 46.9 % 47-70 [facility] Work Phone: Potassium [Moles/Vol] 3.7 mmol/L 3.5-5.1 [facility] Work Phone: Protein [Mass/Vol] 7.1 g/dL 6.4-8.2 [facility] Work Phone: Sodium [Moles/Vol] 141 mmol/L 136-145 [facility] Work Phone: WBC (Bld) [#/Vol] 7.0 10*3/uL 4.4-11.0 [facility] Work Phone: Beta hCG serum qualon 2021 Beta HCG ( test) Ql Negative [facility] Work Phone: Blood erythrocytes count (nu mber/volume)on 10-20-2021 RBC (Bld) [#/Vol] 4.17 10*6/uL 4.2-5.4 [facility] Work Phone: Blood hemoglobin measurement (mass/volume)on 10-20-2021 Hemoglobin (Bld) [Mass/Vol] 12.5 g/dL 12.0-15.0 [facility] Work Phone: Blood lymphocytes/100 leukoc yteson 10-20-2021 Lymphocytes/100 WBC (Bld) 43.0 % 19-41 [facility] Work Phone: Blood monocytes/100 leukocyt eson 10-20-2021 Monocytes/100 WBC (Bld) 6.7 % 0-10 [facility] Work Phone: Blood platelet mean volumeon 10-20-2021 Platelet mean volume (Bld) [Entitic vol] 10.3 fL 6.2-12.0 [facility] Work Phone: Determination of erythrocyte mean corpuscular volume (MCV)on 10-20-2021 MCV (RBC) [Entitic vol] 92.6 fL 81-99 [facility] Work Phone: Direct bilirubinon 2 Bilirubin.direct [Mass/Vol] 0.11 mg/dL 0.00-0.30 [facility] Work Phone: Hematocrit Auto (Bld) [Volum e fraction]on 10-20-2021 Hematocrit (Bld) [Volume fraction] 38.6 % 37-47 [facility] Work Phone: Laboratory - Chemistry and C hemistry - challengeon 10-20-2021 ALP [Catalytic activity/Vol] 57 U/L 45-117 [facility] Work Phone: ALT [Catalytic activity/Vol] 17 U/L 13-56 [facility] Work Phone: CO2 [Moles/Vol] 26.0 mmol/L 21.0-32.0 [facility] Work Phone: Globulin (S) [Mass/Vol] 3.3 g/dL 2.2-4.2 [facility] Work Phone: Lipase [Catalytic activity/Vol] 168 U/L 73-393 [facility] Work Phone: Urea nitrogen/Creatinine [Mass ratio] 16.3 mg/mg 10-20 [facility] Work Phone: Laboratory - Hematology and Cell countson 10-20-2021 Erythrocyte distribution width (RBC) [Entitic vol] 44.1 fL 35.1-43.9 [facility] Work Phone: Erythrocyte distribution width (RBC) [Ratio] 13.0 % 11.6-14.6 [facility] Work Phone: Immature granulocytes/100 WBC (Bld) 0.300 % 0.0-0.9 [facility] Work Phone: Comment on above: IG% - Immature Granu locytes (promyelocytes, myelocytes and metamyelocytes) > 1% indicates that a LEFT SHIFT is Present. MCH (RBC) [Entitic mass] 30.0 pg 27.0-32.0 [facility] Work Phone: Nucleated RBC/100 WBC (Bld) [Ratio] 0 % 0-5 [facility] Work Phone: MCHC Auto (RBC) [Mass/Vol]on 10-20-2021 MCHC (RBC) [Mass/Vol] 32.4 g/dL 32-36 [facility] Work Phone: No Panel Informationon 10-20 Estimated Creatinine Clearance Calc 69.85 ml/min [facility] Work Phone: Estimated GFR (MDRD) Amer 83 mL/min >60 [facility] Work Phone: Comment on above: GFR Calc Estimated GFR (MDRD) Non-Af Amer 69 mL/min >60 [facility] Work Phone: Comment on above: Non- GFR Calc Platelets bldon 10-20-2021 Platelets (Bld) [#/Vol] 199 10*3/uL 150-450 [facility] Work Phone: Serum or plasma albumin len urement (mass/volume)on 10-20-2021 Albumin [Mass/Vol] 3.8 g/dL 3.2-5.0 [facility] Work Phone: Serum or plasma calcium len urement (mass/volume)on 10-20-2021 Calcium [Mass/Vol] 8.9 mg/dL 8.5-10.1 [facility] Work Phone: Serum or plasma creatinine m easurement (mass/volume)on 10-20-2021 Creatinine [Mass/Vol] 0.98 mg/dL 0.55-1.02 [facility] Work Phone: Comment on above: The validity of the calculated GFR & GFRAA in patients over 70 years has not been determined. Clinical correlation is essential. Serum or plasma urea nitroge n measurement (mass/volume)on 10-20-2021 Urea nitrogen [Mass/Vol] 16 mg/dL 7-18 [facility] Work Phone: Thin prep Papanicolaou smear with manual screeningon 10-20-2021 Thin prep Papanicolaou smear with manual screening 13 U/L 15-37 [facility] Work Phone: Thin prep Papanicolaou smear with manual screening 4 5-15 [facility] Work Phone: ALDOSTERONEon 10-10-2021 ALDOSTERONE 4.9 Normal [facility] Comment on above: Result Comment: Refe rence range: 0.0 to 30.0 Unit: ng/dL (NOTE) This test was developed and its performance characteristics determined by [facility]. It has not been cleared or approved by the Food and Drug Administration. PERFORMED AT [facility] Performed By: #### L ALDS #### Testing performed at [facility] #### HH, CMPF #### Testing performed at [address] [address] CMP FASTINGon 10-07-2021 A:G RATIO 1.3 RATIO Normal 1.3-2.2 [facility] Comment on above: Performed By: #### L ALDS #### Testing performed at [facility] #### HH, CMPF #### Testing performed at [address] [address] ALBUMIN 4.4 G/dl Normal 3.5-5.0 [facility] Comment on above: Performed By: #### L ALDS #### Testing performed at [facility] #### HH, CMPF #### Testing performed at [address] [address] ALP [Catalytic activity/Vol] 61 U/L Normal 38-126 [facility] Comment on above: Performed By: #### L ALDS #### Testing performed at [facility] #### HH, CMPF #### Testing performed at [address] [address] ALT [Catalytic activity/Vol] 18 U/L Normal 14-54 [facility] Comment on above: Performed By: #### L ALDS #### Testing performed at [facility] #### HH, CMPF #### Testing performed at [address] [address] AST [Catalytic activity/Vol] 20 U/L Normal 15-41 [facility] Comment on above: Performed By: #### L ALDS #### Testing performed at [facility] #### HH, CMPF #### Testing performed at [address] [address] Bilirubin [Mass/Vol] 0.4 mg/dL Normal 0.2-1.2 [facility] Comment on above: Performed By: #### L ALDS #### Testing performed at [facility] #### HH, CMPF #### Testing performed at [address] [address] Calcium [Mass/Vol] 9.3 mg/dL Normal 8.4-10.2 [facility] Comment on above: Performed By: #### L ALDS #### Testing performed at [facility] #### HH, CMPF #### Testing performed at [address] [address] Chloride [Moles/Vol] 102 mmol/L Normal 98-107 [facility] Comment on above: Performed By: #### L ALDS #### Testing performed at [facility] #### HH, CMPF #### Testing performed at [address] [address] CO2 [Moles/Vol] 24 mmol/L Normal 22-30 [facility] Comment on above: Performed By: #### L ALDS #### Testing performed at [facility] #### HH, CMPF #### Testing performed at [address] [address] Creatinine [Mass/Vol] 0.88 mg/dL Normal 0.52-1.04 [facility] Comment on above: Performed By: #### L ALDS #### Testing performed at [facility] #### HH, CMPF #### Testing performed at [address] [address] EST. GFR, 95 ml/min/1.73sq.m [facility] Comment on above: Performed By: #### L ALDS #### Testing performed at [facility] #### HH, CMPF #### Testing performed at [address] [address] EST. GFR,Non 78 ml/min/1.73sq.m [facility] Comment on above: Performed By: #### L ALDS #### Testing performed at [facility] #### HH, CMPF #### Testing performed at [address] [address] GFR Information Average GFR for 30-3 9 years old = 107. 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 Kidney failure, GFR = <15. The GFR estimate is not adjusted for extreme body surface area or acute process, nor has it been validated for women or ethnic groups other than and . Performed By: #### L ALDS #### Testing performed at [facility] #### HH, CMPF #### Testing performed at [address] [address] Glucose [Mass/Vol] 85 mg/dL Normal 70-100 [facility] Comment on above: Result Comment: NORMAL <100 mg/dL PREDIABETES 101-126 mg/dL DIABETES 126 mg/dL or higher Performed By: #### L ALDS #### Testing performed at [facility] #### HH, CMPF #### Testing performed at [address] [address] Potassium [Moles/Vol] 3.9 mmol/L Normal 3.5-5.1 [facility] Comment on above: Performed By: #### L ALDS #### Testing performed at [facility] #### HH, CMPF #### Testing performed at [address] [address] Protein [Mass/Vol] 7.7 g/dL Normal 6.3-8.2 [facility] Comment on above: Performed By: #### L ALDS #### Testing performed at [facility] #### HH, CMPF #### [place] [address] Sodium [Moles/Vol] 137 mmol/L Normal 136-145 [facility] Comment on above: Performed By: #### L ALDS #### Testing performed at [facility] #### HH, CMPF #### Testing performed at [place] [id number] Urea nitrogen [Mass/Vol] 17 mg/dL Normal 7-20 [facility] Comment on above: Performed By: #### L ALDS #### Testing performed at [facility] #### HH, CMPF #### Testing performed at [place] [id number] COMPREHENSIVE METABOLIC PANE Bladimir 10-07-2021 Albumin [Mass/Vol] 4.4 G/dl 3.5 - 5.0 G/dl [facility] Albumin/Globulin [Mass ratio] 1.3 {ratio} [facility] ALP [Catalytic activity/Vol] 61 U/L [facility] ALT [Catalytic activity/Vol] 18 U/L [facility] AST [Catalytic activity/Vol] 20 U/L [facility] Bilirubin [Mass/Vol] 0.4 mg/dL [facility] Calcium [Mass/Vol] 9.3 mg/dL [facility] Chloride [Moles/Vol] 102 mmol/L [facility] CO2 [Moles/Vol] 24 mmol/L [facility] Creatinine [Mass/Vol] 0.88 mg/dL [facility] GFR COMMENT Average GFR for 30-3 9 years old = 107. [facility] Comment on above: Chronic Kidney disea se, GFR = <60. Kidney failure, GFR = <15. The GFR estimate is not adjusted for extreme body surface area or acute process, nor has it been validated for women or ethnic groups other than and . GFR/1.73 sq M.predicted among blacks MDRD (S/P/Bld) [Vol rate/Area] 95 mL/min/{1.73_m2} ml/min/1.7 3sq.m [facility] GFR/1.73 sq M.predicted among non-blacks MDRD (S/P/Bld) [Vol rate/Area] 78 mL/min/{1.73_m2} ml/min/1.7 3sq.m [facility] Glucose post fast [Mass/Vol] 85 mg/dL [facility] Comment on above: NORMAL <100 mg/dL PREDIABETES 101-126 mg/dL DIABETES 126 mg/dL or higher Potassium [Moles/Vol] 3.9 mmol/L [facility] Protein [Mass/Vol] 7.7 g/dL [facility] Sodium [Moles/Vol] 137 mmol/L [facility] Urea nitrogen [Mass/Vol] 17 mg/dL [facility] HGB/HCTon 10-07-2021 Hematocrit (Bld) [Volume fraction] 39.1 % Normal 36.0-48.0 [facility] Comment on above: Performed By: #### L ALDS #### Testing performed at [facility] #### HH, CMPF #### Testing performed at [address] [address] Hemoglobin (Bld) [Mass/Vol] 12.7 g/dL Normal 12.0-16.0 [facility] Comment on above: Performed By: #### L ALDS #### Testing performed at [facility] #### HH, CMPF #### Testing performed at [address] [address] TSH W/FT4 REFLEXon 2 TSH Qn 1.733 m[IU]/L [facility] TSH,REFLEX FREE T4on 022 TSH,REFLEX FREE T4 1.733 uIU/ML Normal 0.45-5.33 [facility] Comment on above: Performed By: #### A CBC, LAYO MG #### Testing performed at [address] [address] Absolute lymphocyte counton 08-27-2021 Lymphocytes Auto (Unsp spec) [#/Vol] 1.84 10*3/uL 0.83-4.51 [facility] Work Phone: Basophil percentageon 2021 Basophil percentage 0 SEEN /hpf 0-5 [facility] Work Phone: Basophils/100 WBC (Bld) 0.6 % 0-1 [facility] Work Phone: Bilirubin [Mass/Vol] 0.50 mg/dL 0.20-1.00 [facility] Work Phone: [phone] Comment on above: For patients on eltr ombopag therapy, use of [employer]ension [employer] TBIL is not recommended. Chloride [Moles/Vol] 110 mmol/L 98-107 [facility] Work Phone: Eosinophils/100 WBC (Bld) 2.0 % 0-5 [facility] Work Phone: Glucose [Mass/Vol] 98 mg/dL 74-106 [facility] Work Phone: Neutrophils (Bld) [#/Vol] 2.7 10*3/uL 2.0-7.7 [facility] Work Phone: Neutrophils/100 WBC (Bld) 54.0 % 47-70 [facility] Work Phone: Potassium [Moles/Vol] 4.7 mmol/L 3.5-5.1 [facility] Work Phone: Comment on above: Moderate Hemolysis, Result may be falsely increased. Protein [Mass/Vol] 6.8 g/dL 6.4-8.2 [facility] Work Phone: Sodium [Moles/Vol] 138 mmol/L 136-145 [facility] Work Phone: [phone] WBC (Bld) [#/Vol] 5.1 10*3/uL 4.4-11.0 [facility] Work Phone: Beta hCG serum qualon 2021 Beta HCG ( test) Ql Negative [facility] Work Phone: Bilirubin Test strip Ql (U)o n 08-27-2021 Bilirubin Ql (U) Negative Negative [facility] Work Phone: Blood erythrocytes count (nu mber/volume)on 08-27-2021 RBC (Bld) [#/Vol] 3.91 10*6/uL 4.2-5.[address] [facility] Work Phone: Blood hemoglobin measurement (mass/volume)on 08-27-2021 Hemoglobin (Bld) [Mass/Vol] 11.8 g/dL 12.0-15.0 [facility] Work Phone: Blood lymphocytes/100 leukoc yteson 08-27-2021 Lymphocytes/100 WBC (Bld) 36.3 % 19-41 [facility] Work Phone: Blood monocytes/100 leukocyt eson 08-27-2021 Monocytes/100 WBC (Bld) 6.9 % 0-10 [facility] Work Phone: Blood platelet mean volumeon 08-27-2021 Platelet mean volume (Bld) [Entitic vol] 10.9 fL 6.2-12.0 [facility] Work Phone: Determination of erythrocyte mean corpuscular volume (MCV)on 08-27-2021 MCV (RBC) [Entitic vol] 95.1 fL 81-99 [facility] Work Phone: Hematocrit Auto (Bld) [Volum e fraction]on 08-27-2021 Hematocrit (Bld) [Volume fraction] 37.2 % 37-47 [facility] Work Phone: Ketones Test strip Ql (U)on 08-27-2021 Ketones Ql (U) Negative Negative [facility] Work Phone: Laboratory - Chemistry and C hemistry - challengeon 08-27-2021 ALP [Catalytic activity/Vol] 62 U/L 45-117 [facility] Work Phone: ALT [Catalytic activity/Vol] 18 U/L 13-56 [facility] Work Phone: CO2 [Moles/Vol] 25.0 mmol/L 21.0-32.0 [facility] Work Phone: Globulin (S) [Mass/Vol] 3.3 g/dL 2.2-4.2 [facility] Work Phone: Lipase [Catalytic activity/Vol] 76 U/L 73-393 [facility] Work Phone: Urea nitrogen/Creatinine [Mass ratio] 15.4 mg/mg 10-20 [facility] Work Phone: Laboratory - Hematology and Cell countson 08-27-2021 Erythrocyte distribution width (RBC) [Entitic vol] 45.6 fL 35.1-43.9 [facility] Work Phone: Erythrocyte distribution width (RBC) [Ratio] 12.9 % 11.6-14.6 [facility] Work Phone: Immature granulocytes/100 WBC (Bld) 0.200 % 0.0-0.9 [facility] Work Phone: Comment on above: IG% - Immature Granu locytes (promyelocytes, myelocytes and metamyelocytes) > 1% indicates that a LEFT SHIFT is Present. MCH (RBC) [Entitic mass] 30.2 pg 27.0-32.0 [facility] Work Phone: Nucleated RBC/100 WBC (Bld) [Ratio] 0 % 0-5 [facility] Work Phone: MCHC Auto (RBC) [Mass/Vol]on 08-27-2021 MCHC (RBC) [Mass/Vol] 31.7 g/dL 32-36 [facility] Work Phone: Mucus LM Ql (Urine sed)on Mucus Ql (Urine sed) 0 SEEN /hpf [facility] Work Phone: Nitrite Test strip Ql (U)on 08-27-2021 Nitrite Ql (U) Negative Negative [facility] Work Phone: No Panel Informationon 08-27 Estimated Creatinine Clearance Calc 87.76 ml/min [facility] Work Phone: Estimated GFR (MDRD) Amer 109 mL/min >60 [facility] Work Phone: Comment on above: GFR Calc Estimated GFR (MDRD) Non-Af Amer 90 mL/min >60 [facility] Work Phone: Comment on above: Non- GFR Calc Platelets bldon 08-27-2021 Platelets (Bld) [#/Vol] 166 10*3/uL 150-450 [facility] Work Phone: Protein Test strip Ql (U)on 08-27-2021 Protein Ql (U) 15 mg/dl Negative [facility] Work Phone: Serum or plasma albumin len urement (mass/volume)on 08-27-2021 Albumin [Mass/Vol] 3.5 g/dL 3.2-5.0 [facility] Work Phone: Serum or plasma albumin/glob ulin mass ratioon 08-27-2021 Albumin/Globulin [Mass ratio] 1.1 {ratio} 0.9-2.4 [facility] Work Phone: Serum or plasma calcium len urement (mass/volume)on 08-27-2021 Calcium [Mass/Vol] 8.6 mg/dL 8.5-10.1 [facility] [facility] Work Phone: Serum or plasma creatinine m easurement (mass/volume)on 08-27-2021 Creatinine [Mass/Vol] 0.78 mg/dL 0.55-1.02 [facility] Work Phone: Comment on above: The validity of the calculated GFR & GFRAA in patients over 70 years has not been determined. Clinical correlation is essential. Serum or plasma urea nitroge n measurement (mass/volume)on 08-27-2021 Urea nitrogen [Mass/Vol] 12 mg/dL 7-18 [facility] Work Phone: Squamous epithelial cells de tection in urine sediment by light microscopyon 08-27-2021 Epithelial cells.squamous LM Ql (Urine sed) 0-5 SEEN /hpf 5-10 [facility] Work Phone: Thin prep Papanicolaou smear with manual screeningon 08-27-2021 Thin prep Papanicolaou smear with manual screening 27 U/L 15-37 [facility] Work Phone: Comment on above: Moderate Hemolysis, Result may be falsely increased. Thin prep Papanicolaou smear with manual screening 3 5-15 [facility] Work Phone: Urine blood detectionon 08-16 RBC Ql (U) Negative Negative [facility] Work Phone: RBC Ql (U) 0 SEEN /hpf 0-5 [facility] Work Phone: Urine clarityon 08-27-2021 Clarity (U) Sl. Cloudy Clear [facility] Work Phone: Urine color determinationon 08-27-2021 Color (U) Yellow Yellow [facility] Work Phone: Urine glucose detectionon Glucose Ql (U) Normal mg/dl Normal [facility] Work Phone: Urine leukocyte esterase det ection by dipstickon 08-27-2021 Leukocyte esterase Test strip Ql (U) Negative Negative [facility] Work Phone: Urine pHon 08-27-2021 pH (U) 7.0 [pH] 5.0 - 8.0 [facility] Work Phone: Urine sediment bacteria coun t by microscopy (number/high power field)on 08-27-2021 Bacteria LM.HPF (Urine sed) [#/Area] 1 /[HPF] None Seen [facility] Work Phone: Urine specific gravity measu rementon 08-27-2021 Specific gravity (U) [Rel density] 1.005 1.002-1.03 0 [facility] Work Phone: Urobilinogen Auto test strip Ql (U)on 08-27-2021 Urobilinogen Ql (U) Normal mg/dl Normal [facility] Work Phone: Absolute lymphocyte counton 06-06-2021 Lymphocytes Auto (Unsp spec) [#/Vol] 2.37 10*3/uL 0.83-4.51 [facility] Work Phone: Basophil percentageon 2021 Basophil percentage 0-5 SEEN /hpf 0-5 [facility] Work Phone: Basophils/100 WBC (Bld) 0.7 % 0-1 [facility] Work Phone: Bilirubin [Mass/Vol] 0.30 mg/dL 0.20-1.00 [facility] Work Phone: Comment on above: For patients on eltr ombopag therapy, use of Dimension [place] TBIL is not recommended. Chloride [Moles/Vol] 109 mmol/L 98-107 [facility] Work Phone: Eosinophils/100 WBC (Bld) 1.8 % 0-5 [facility] Work Phone: Glucose [Mass/Vol] 93 mg/dL 74-106 [facility] Work Phone: Neutrophils (Bld) [#/Vol] 4.3 10*3/uL 2.0-7.7 [facility] Work Phone: Neutrophils/100 WBC (Bld) 58.2 % 47-70 [facility] Work Phone: Potassium [Moles/Vol] 4.2 mmol/L 3.5-5.1 [facility] Work Phone: Protein [Mass/Vol] 7.2 g/dL 6.4-8.2 [facility] Work Phone: Sodium [Moles/Vol] 141 mmol/L 136-145 [facility] Work Phone: WBC (Bld) [#/Vol] 7.4 10*3/uL 4.4-11.0 [facility] Work Phone: Bilirubin Test strip Ql (U)o n 06-06-2021 Bilirubin Ql (U) Negative Negative [facility] Work Phone: Blood erythrocytes count (nu mber/volume)on 06-06-2021 RBC (Bld) [#/Vol] 3.98 10*6/uL 4.2-5.[address] [facility] Work Phone: Blood hemoglobin measurement (mass/volume)on 06-06-2021 Hemoglobin (Bld) [Mass/Vol] 11.9 g/dL 12.0-15.0 [facility] Work Phone: Blood lymphocytes/100 leukoc yteson 06-06-2021 Lymphocytes/100 WBC (Bld) 32.0 % 19-41 [facility] Work Phone: Blood monocytes/100 leukocyt eson 06-06-2021 Monocytes/100 WBC (Bld) 6.9 % 0-10 [facility] Work Phone: Blood platelet mean volumeon 06-06-2021 Platelet mean volume (Bld) [Entitic vol] 10.5 fL 6.2-12.0 [facility] Work Phone: Determination of erythrocyte mean corpuscular volume (MCV)on 06-06-2021 MCV (RBC) [Entitic vol] 93.5 fL 81-99 [facility] Work Phone: Erythrocyte sedimentation ra lian 06-06-2021 ESR (Bld) [Velocity] 10 mm/h 0-30 [facility] Work Phone: Hematocrit Auto (Bld) [Volum e fraction]on 06-06-2021 Hematocrit (Bld) [Volume fraction] 37.2 % 37-47 [facility] Work Phone: INR in Blood by Coagulation assayon 06-06-2021 INR Coag (Bld) [Relative time] 1.0 {INR} [facility] Work Phone: Ketones Test strip Ql (U)on 06-06-2021 Ketones Ql (U) Negative Negative [facility] Work Phone: Laboratory - Chemistry and C hemistry - challengeon 06-06-2021 HCG ( test) Ql (U) Negative [facility] Work Phone: Comment on above: Very dilute urine sp ecimens, as indicated by a low specificgravity, may not contain administrative representative levels of hCG. If is still suspected, a first morning urinespecimen should be collected 48 hours later and tested. ALP [Catalytic activity/Vol] 74 U/L 45-117 [facility] Work Phone: ALT [Catalytic activity/Vol] 23 U/L 13-56 [facility] Work Phone: CO2 [Moles/Vol] 25.0 mmol/L 21.0-32.0 [facility] Work Phone: Globulin (S) [Mass/Vol] 3.6 g/dL 2.2-4.2 [facility] Work Phone: Lipase [Catalytic activity/Vol] 136 U/L 73-393 [facility] Work Phone: Urea nitrogen/Creatinine [Mass ratio] 15.4 mg/mg 10-20 [facility] Work Phone: Laboratory - Coagulationon 0 06-06-2021 aPTT Coag (Bld) [Time] 29.6 s 24.1-36.2 [facility] Work Phone: PT Coag (PPP) [Time] 13.0 s 11.7-14.9 [facility] Work Phone: Laboratory - Hematology and Cell countson 06-06-2021 Erythrocyte distribution width (RBC) [Entitic vol] 44.3 fL 35.1-43.9 [facility] Work Phone: Erythrocyte distribution width (RBC) [Ratio] 12.9 % 11.6-14.6 [facility] Work Phone: Immature granulocytes/100 WBC (Bld) 0.400 % 0.0-0.9 [facility] Work Phone: Comment on above: IG% - Immature Granu locytes (promyelocytes, myelocytes and metamyelocytes) > 1% indicates that a LEFT SHIFT is Present. MCH (RBC) [Entitic mass] 29.9 pg 27.0-32.0 [facility] Work Phone: Nucleated RBC/100 WBC (Bld) [Ratio] 0 % 0-5 [facility] Work Phone: MCHC Auto (RBC) [Mass/Vol]on 06-06-2021 MCHC (RBC) [Mass/Vol] 32.0 g/dL 32-36 [facility] Work Phone: Mucus LM Ql (Urine sed)on Mucus Ql (Urine sed) 0 SEEN /hpf [facility] Work Phone: Nitrite Test strip Ql (U)on 06-06-2021 Nitrite Ql (U) Negative Negative [facility] Work Phone: No Panel Informationon 06-06 Troponin I High Sensitivity 3 pg/mL 3.0-54.0 [facility] Work Phone: Comment on above: Please Note: New Dipti t Units and Gender Specific Reference Ranges. For more information see Policy Stat Procedure [facility] High Sensitivity Troponin (TNIH) and attachments. Troponin I High Sensitivity < 3 pg/mL 3.0-54.0 [facility] Work Phone: Comment on above: Please Note: New Dipti t Units and Gender Specific Reference Ranges. For more information see Policy Stat Procedure [facility] High Sensitivity Troponin (TNIH) and attachments. D-Dimer Quantitative (PE/DVT) < 0.27 FEU/ug/m 0.27-0.49 [facility] Work Phone: Comment on above: NORMAL D-Dimer level (<0.50) indicates no DVT or PE. Estimated Creatinine Clearance Calc 69.85 ml/min [facility] Work Phone: Estimated GFR (MDRD) Amer 84 mL/min >60 [facility] Work Phone: Comment on above: GFR Calc Estimated GFR (MDRD) Non-Af Amer 69 mL/min >60 [facility] Work Phone: Comment on above: Non- GFR Calc Platelets bldon 06-06-2021 Platelets (Bld) [#/Vol] 231 10*3/uL 150-450 [facility] Work Phone: Protein Test strip Ql (U)on 06-06-2021 Protein Ql (U) Negative Negative [facility] Work Phone: Serum or plasma C reactive p rotein measurement (mass/volume)on 06-06-2021 CRP [Mass/Vol] mg/L 0.0-3.0 [facility] Work Phone: Comment on above: C-Reactive Protein ( CRP) provides useful information for thediagnosis, therapy and monitoring of inflammatory processesand associated diseases. For the evaluation of Relative Riskfor Cardiovascular Disease, a High Sensitivity CRP (HSCRP)should be ordered. Serum or plasma albumin len urement (mass/volume)on 06-06-2021 Albumin [Mass/Vol] 3.6 g/dL 3.2-5.0 [facility] Work Phone: Serum or plasma albumin/glob ulin mass ratioon 06-06-2021 Albumin/Globulin [Mass ratio] 1.0 {ratio} 0.9-2.4 [facility] Work Phone: Serum or plasma calcium eln urement (mass/volume)on 06-06-2021 Calcium [Mass/Vol] 9.4 mg/dL 8.5-10.1 [facility] Work Phone: Serum or plasma creatinine m easurement (mass/volume)on 06-06-2021 Creatinine [Mass/Vol] 0.98 mg/dL 0.55-1.02 [facility] Work Phone: Comment on above: The validity of the calculated GFR & GFRAA in patients over 70 years has not been determined. Clinical correlation is essential. Serum or plasma urea nitroge n measurement (mass/volume)on 06-06-2021 Urea nitrogen [Mass/Vol] 15 mg/dL 7-18 [facility] Work Phone: Squamous epithelial cells de tection in urine sediment by light microscopyon 06-06-2021 Epithelial cells.squamous LM Ql (Urine sed) 0-5 SEEN /hpf 5-10 [facility] Work Phone: Thin prep Papanicolaou smear with manual screeningon 06-06-2021 Thin prep Papanicolaou smear with manual screening 14 U/L 15-37 [facility] Work Phone: Thin prep Papanicolaou smear with manual screening 7 5-15 [facility] Work Phone: Urine blood detectionon 04-2 RBC Ql (U) Negative Negative [facility] Work Phone: RBC Ql (U) 0 SEEN /hpf 0-5 [facility] Work Phone: Urine clarityon 06-06-2021 Clarity (U) Clear Clear [facility] Work Phone: Urine color determinationon 06-06-2021 Color (U) Yellow Yellow [facility] Work Phone: Urine glucose detectionon Glucose Ql (U) Normal mg/dl Normal [facility] Work Phone: Urine leukocyte esterase det ection by dipstickon 06-06-2021 Leukocyte esterase Test strip Ql (U) Negative Negative [facility] Work Phone: Urine pHon 06-06-2021 pH (U) 7.0 [pH] 5.0 - 8.0 [facility] Work Phone: Urine sediment bacteria coun t by microscopy (number/high power field)on 06-06-2021 Bacteria LM.HPF (Urine sed) [#/Area] 0 /[HPF] None Seen [facility] Work Phone: Urine specific gravity measu rementon 06-06-2021 Specific gravity (U) [Rel density] 1.015 1.002-1.03 0 [facility] Work Phone: Urobilinogen Auto test strip Ql (U)on 06-06-2021 Urobilinogen Ql (U) Normal mg/dl Normal [facility] Work Phone: Absolute lymphocyte counton 04-17-2021 Lymphocytes Auto (Unsp spec) [#/Vol] 1.93 10*3/uL 0.83-4.51 [facility] Work Phone: Basophil percentageon 2021 Basophil percentage 0 SEEN /hpf [facility] Work Phone: Basophils/100 WBC (Bld) 0.8 % 0-1 [facility] Work Phone: Bilirubin [Mass/Vol] 0.30 mg/dL 0.20-1.00 [facility] Work Phone: Comment on above: For patients on eltr ombopag therapy, use of Dimension [place] TBIL is not recommended. Chloride [Moles/Vol] 108 mmol/L 98-107 [facility] Work Phone: [phone] Eosinophils/100 WBC (Bld) 2.9 % 0-5 [facility] Work Phone: [phone] Glucose [Mass/Vol] 74 mg/dL 74-106 [facility] Work Phone: Neutrophils (Bld) [#/Vol] 2.3 10*3/uL 2.0-7.7 [facility] Work Phone: Neutrophils/100 WBC (Bld) 46.6 % 47-70 [facility] Work Phone: Potassium [Moles/Vol] 4.2 mmol/L 3.5-5.1 [facility] Work Phone: Protein [Mass/Vol] 7.7 g/dL 6.4-8.2 [facility] Work Phone: Sodium [Moles/Vol] 140 mmol/L 136-145 [facility] Work Phone: WBC (Bld) [#/Vol] 4.9 10*3/uL 4.4-11.0 [facility] Work Phone: Beta hCG serum qualon 2021 Beta HCG ( test) Ql Negative [facility] Work Phone: Bilirubin Test strip Ql (U)o n 04-17-2021 Bilirubin Ql (U) Negative Negative [facility] Work Phone: Blood erythrocytes count (nu mber/volume)on 04-17-2021 RBC (Bld) [#/Vol] 4.13 10*6/uL 4.2-5.[address] [facility] Work Phone: Blood hemoglobin measurement (mass/volume)on 04-17-2021 Hemoglobin (Bld) [Mass/Vol] 12.1 g/dL 12.0-15.0 [facility] Work Phone: Blood lymphocytes/100 leukoc yteson 04-17-2021 Lymphocytes/100 WBC (Bld) 39.8 % 19-41 [facility] Work Phone: Blood monocytes/100 leukocyt eson 04-17-2021 Monocytes/100 WBC (Bld) 9.5 % 0-10 [facility] Work Phone: Blood platelet mean volumeon 04-17-2021 Platelet mean volume (Bld) [Entitic vol] 10.4 fL 6.2-12.0 [facility] Work Phone: Determination of erythrocyte mean corpuscular volume (MCV)on 04-17-2021 MCV (RBC) [Entitic vol] 93.7 fL 81-99 [facility] Work Phone: Direct bilirubinon 2 Bilirubin.direct [Mass/Vol] 0.11 mg/dL 0.00-0.30 [facility] Work Phone: Glucose Glucometer (BldC) [M ass/Vol]on 04-17-2021 Glucose [Mass/Vol] 62 mg/dL 74-106 [facility] Work Phone: Comment on above: MANAGEMENT OF PATIEN T CARE PER NURSING PROTOCOL Hematocrit Auto (Bld) [Volum e fraction]on 04-17-2021 Hematocrit (Bld) [Volume fraction] 38.7 % 37-47 [facility] Work Phone: Ketones Test strip Ql (U)on 04-17-2021 Ketones Ql (U) Negative Negative [facility] Work Phone: Laboratory - Chemistry and C hemistry - challengeon 04-17-2021 ALP [Catalytic activity/Vol] 65 U/L 45-117 [facility] Work Phone: ALT [Catalytic activity/Vol] 23 U/L 13-56 [facility] Work Phone: CO2 [Moles/Vol] 27.0 mmol/L 21.0-32.0 [facility] Work Phone: Globulin (S) [Mass/Vol] 3.8 g/dL 2.2-4.2 [facility] Work Phone: Urea nitrogen/Creatinine [Mass ratio] 14.7 mg/mg 10-20 [facility] Work Phone: Laboratory - Hematology and Cell countson 04-17-2021 Erythrocyte distribution width (RBC) [Entitic vol] 47.3 fL 35.1-43.9 [facility] Work Phone: Erythrocyte distribution width (RBC) [Ratio] 13.7 % 11.6-14.6 [facility] Work Phone: Immature granulocytes/100 WBC (Bld) 0.400 % 0.0-0.9 [facility] Work Phone: Comment on above: IG% - Immature Granu locytes (promyelocytes, myelocytes and metamyelocytes) > 1% indicates that a LEFT SHIFT is Present. MCH (RBC) [Entitic mass] 29.3 pg 27.0-32.0 [facility] Work Phone: Nucleated RBC/100 WBC (Bld) [Ratio] 0 % 0-5 [facility] Work Phone: MCHC Auto (RBC) [Mass/Vol]on 04-17-2021 MCHC (RBC) [Mass/Vol] 31.3 g/dL 32-36 [facility] Work Phone: Mucus LM Ql (Urine sed)on Mucus Ql (Urine sed) 0 SEEN /hpf [facility] Work Phone: Nitrite Test strip Ql (U)on 04-17-2021 Nitrite Ql (U) Negative Negative [facility] Work Phone: No Panel Informationon 04-17 Estimated Creatinine Clearance Calc 67.11 ml/min [facility] Work Phone: Estimated GFR (MDRD) Amer 80 mL/min >60 [facility] Work Phone: Comment on above: GFR Calc Estimated GFR (MDRD) Non-Af Amer 66 mL/min >60 [facility] Work Phone: Comment on above: Non- GFR Calc Platelets bldon 04-17-2021 Platelets (Bld) [#/Vol] 199 10*3/uL 150-450 [facility] Work Phone: Protein Test strip Ql (U)on 04-17-2021 Protein Ql (U) Negative Negative [facility] Work Phone: Serum or plasma albumin len urement (mass/volume)on 04-17-2021 Albumin [Mass/Vol] 3.9 g/dL 3.2-5.0 [facility] Work Phone: Serum or plasma calcium len urement (mass/volume)on 04-17-2021 Calcium [Mass/Vol] 9.3 mg/dL 8.5-10.1 [facility] Work Phone: Serum or plasma creatinine m easurement (mass/volume)on 04-17-2021 Creatinine [Mass/Vol] 1.02 mg/dL 0.55-1.02 [facility] Work Phone: Comment on above: The validity of the calculated GFR & GFRAA in patients over 70 years has not been determined. Clinical correlation is essential. Serum or plasma urea nitroge n measurement (mass/volume)on 04-17-2021 Urea nitrogen [Mass/Vol] 15 mg/dL 7-18 [facility] Work Phone: Squamous epithelial cells de tection in urine sediment by light microscopyon 04-17-2021 Epithelial cells.squamous LM Ql (Urine sed) 0 SEEN /hpf [facility] Work Phone: Thin prep Papanicolaou smear with manual screeningon 04-17-2021 Thin prep Papanicolaou smear with manual screening 21 U/L 15-37 [facility] Work Phone: Thin prep Papanicolaou smear with manual screening 5 5-15 [facility] Work Phone: Urine blood detectionon - RBC Ql (U) Negative Negative [facility] Work Phone: RBC Ql (U) 0 SEEN /hpf [facility] Work Phone: Urine clarityon 04-17-2021 Clarity (U) Clear Clear [facility] Work Phone: Urine color determinationon 04-17-2021 Color (U) Yellow Yellow [facility] Work Phone: Urine glucose detectionon Glucose Ql (U) Normal mg/dl Normal [facility] Work Phone: Urine leukocyte esterase det ection by dipstickon 04-17-2021 Leukocyte esterase Test strip Ql (U) Negative Negative [facility] Work Phone: Urine pHon 04-17-2021 pH (U) 8.0 [pH] [facility] Work Phone: Urine sediment bacteria coun t by microscopy (number/high power field)on 04-17-2021 Bacteria LM.HPF (Urine sed) [#/Area] 0 /[HPF] None Seen [facility] Work Phone: Urine specific gravity measu rementon 04-17-2021 Specific gravity (U) [Rel density] 1.010 [facility] Work Phone: Urobilinogen Auto test strip Ql (U)on 04-17-2021 Urobilinogen Ql (U) Normal mg/dl Normal [facility] Work Phone: Calculi Analysis(Stone)on Calculi Composition See Note Normal [facility] Comment on above: Result Comment: Calc kimberly components identified: calcium oxalate monohydrate, calcium oxalate dihydrate, and calcium phosphate (hydroxy- and carbonate- apatite). The presence of protein and debris make quantitation unreliable. No quantitation of analytes provided. INTERPRETIVE INFORMATION: Calculi (Stone) analysis Calculi are the products of physiological processes that yield crystalline compounds in a matrix of biological compounds and blood. Matrix components are not reported. The clinically significant crystalline components identified in calculi specimens are reported. Gross description may not be consistent with composition determined by FTIR analysis. Performed By: [facility] [address] [place] [address] Environmental Construction Engineer: Sarai Ayala MD Performed By: #### C ALCO #### The performing lab is in the report. Calculi Description See Note Normal [facility] Comment on above: Result Comment: Spec imen consists of one brown and falk calculus. The total weight is < 2 mg. Performed By: #### C ALCO #### The performing lab is in the report. Calculi Mass See Note Normal [facility] Comment on above: Result Comment: Samp le mass < 2 mg. Small sample size prevents accurate weight determination. Performed By: #### C ALCO #### The performing lab is in the report. Hemoglobinon 01-06-2021 Hemoglobin (Bld) [Mass/Vol] 8.5 g/dL Low 11.7-16.0 [facility] Comment on above: Performed By: #### H EMGB #### [address] [address] Hemoglobin.gastrointest inal spec 1 Ql (Stl) 8.5 g/dL Low 11.7 - 16.0 g/dL [facility] Interpretation and review of laboratory results Abnormal [facility] Test Performed by [facility], [address] [place] [id number] [place] [address] LAB [facility] CBCon 01-05-2021 Hematocrit (Bld) [Volume fraction] 33.3 % Low 35.0 - 47.0 % [facility] Hemoglobin.gastrointest inal spec 1 Ql (Stl) 10.8 g/dL Low 11.7 - 16.0 g/dL [facility] Interpretation and review of laboratory results Abnormal [facility] MCH (RBC) [Entitic mass] 29.8 pg 26.0 - 34.0 pg [facility] MCHC (RBC) [Mass/Vol] 32.4 % 32.0 - 36.0 % [facility] MCV (RBC) [Entitic vol] 91.9 fL 79.0 - 98.0 fL [facility] Platelet distribution width (Bld) [Ratio] 12.8 % 11.5 - 14.5 % [facility] Platelet mean volume (Bld) [Entitic vol] 8.4 fL 7.4 - 10.4 fL [facility] Platelets (Bld) [#/Vol] 203 10*3/uL 140 - 440 10*3/uL [facility] RBC (Bld) [#/Vol] 3.62 10*6/uL Low 3.80 - 5.20 10*6/uL [facility] WBC (Bld) [#/Vol] 14.2 10*3/uL High 3.6 - 10.7 10*3/uL [facility] Test Performed by [facility], [address] [place] [id number] [place] [address] Fibrinogenon 01-05-2021 Fibrinogen 338 mg/dL Normal 200-400 [facility] Comment on above: Performed By: #### C MP3, HEMOG, MG3 #### [address] Fibrinogen 338 mg/dL 200 - 400 mg/dL [facility] Hemogramon 01-05-2021 Erythrocyte distribution width (RBC) [Ratio] 12.8 % Normal 11.5-14.5 [facility] Comment on above: Performed By: #### C MP3, HEMOG, MG3 #### [address] [id number] Hematocrit (Bld) [Volume fraction] 33.3 % Low 35.0-47.0 [facility] Comment on above: Performed By: #### C MP3, HEMOG, MG3 #### [address] [address] Hemoglobin (Bld) [Mass/Vol] 10.8 g/dL Low 11.7-16.0 [facility] Comment on above: Performed By: #### C MP3, HEMOG, MG3 #### [place] [address] [address] [place], [place] MCH (RBC) [Entitic mass] 29.8 pg Normal 26.0-34.0 [facility] Comment on above: Performed By: #### C MP3, HEMOG, MG3 #### [place] [address] [address] [place], [place] MCHC 32.4 % Normal 32.0-36.0 [facility] Comment on above: Performed By: #### C MP3, HEMOG, MG3 #### [place] [address] [address] [place], [place] MCV (RBC) [Entitic vol] 91.9 fL Normal 79.0-98.0 [facility] Comment on above: Performed By: #### C MP3, HEMOG, MG3 #### [place] [address] [address] [place], [place] Platelet mean volume (Bld) [Entitic vol] 8.4 fL Normal 7.4-10.4 [facility] Comment on above: Performed By: #### C MP3, HEMOG, MG3 #### [place] [address] [address] [place], [place] Platelets (Bld) [#/Vol] 203 10*3/uL Normal 140-440 [facility] Comment on above: Performed By: #### C MP3, HEMOG, MG3 #### [place] [address] [address] [place], [place] RBC (Bld) [#/Vol] 3.62 10*6/uL Low 3.80-5.20 [facility] Comment on above: Performed By: #### C MP3, HEMOG, MG3 #### [place] [address] [address] [place], [place] WBC (Bld) [#/Vol] 14.2 10*3/uL High 3.6-10.7 [facility] Comment on above: Performed By: #### C MP3, HEMOG, MG3 #### [address] [id number] No Panel Informationon 01-05 Test Performed by [facility], [address] [place] [id number] [facility] Op Noteon 01-05-2021 Op Note Operative N ote Patient: Kendall Vasques : 1985 Date of Procedure: 01/05/21 Principal Problem: premature rupture of membranes (PPROM) with unknown onset of labor Active Problems: Nonepileptic episode (HCC) Renal calculus Resolved Problems: * No resolved hospital problems. * PREOPERATIVE DIAGNOSES: 1.@ 24w1d 2. Unscheduled non-emergent Primary Classical Section 3. Suspicion for placental abruption with increased vaginal bleeding 4. PPROM 5. cHTN 6. Stage 2 Renal Failure 7. PNES 8 Asthma 9 Anxiety POSTOPERATIVE DIAGNOSES: 1. Same 2. Viable Female , demise following delivery/resuscitation 3. Placental abruption PROCEDURE: Classical Section via pfannenstiel skin SURGEON: Dr Pierce ASST: Dr Brice ANESTHESIA: spinal ANTIBIOTIC(S): cefazolin and azithromycin VAG PREP (CHLORHEXIDINE): Yes FLUIDS: 1400 ml URINE: 150 ml EBL: 500 ml QBL: 530 ml DRAINS: llanes catheter SPECIMENS: Cord Blood, cord gasses COMPLICATIONS: none CONDITION: good, transferred to : post anesthesia recovery FINDINGS: Live female , breech APGARS 1 min: 6 5 min: 8 Weight: 550 grams Examination of placenta was difficult due to being anterior and encountered at the hysterotomy, close examination showed small area of abruption/separation Tubes and ovaries: Right tube and ovary surgically absent, normal left tube and ovary, no intraabdominal adhesions were identified VTE Prophylaxis: Prophylactic Dosing until Discharge LABOR DELIVERY ??? SCD's ONLY (labor through ambulation) SCD's PLUS Prophylactic Anticoagulation until discharge SCD's PLUS Prophylactic Anticoagulation for 6 weeks SCD's PLUS Therapeutic Anticoagulation for 6 weeks Vaginal Delivery [] BMI ? 40 kg/m2 Delivery All patients Vaginal Delivery [] BMI ? 40 kg/m2 AND [] Antepartum hospitalization ? 72 hours within the past month Delivery 1 Major Risk Factor: [] BMI ? 35 kg/m2 [] Low Risk Thrombophilia [] PPH+RBCs, IR, or operation [] Infection+Antibiotics [x] Antepartum hospitalization ? 72 hours within the past month [] PMH: Sickle Cell, SLE, Cardiac Dz, Active IBD, Active Cancer, Nephrotic Syndrome OR 2 Minor Risk Factors: [] Multiple gestation [] Age > 40 [] PPH ? 1,000cc [] (+)FMH of VTE [] Smoker [] Preeclampsia [] BMI ? 40 kg/m2 AND [] Low Risk Thrombophilia OR ANY OF THE FOLLOWING: [] High Risk Thrombophilia without prior VTE [] Low Risk Thrombophilia with (+)FMH of VTE [] Any single prior VTE ANY OF THE FOLLOWING: [] Already on LMWH/UFH [] Multiple prior VTE [] High Risk Thrombophilia with prior VTE Low Risk Thrombophilia: FVL (heterozygous), Prothrombin (heterozygous), Protein C, Protein S High Risk Thrombophilia: FVL (homozygous), Prothrombin (homozygous), FVL+Prothrombin (heterozygous), Antithrombin III, APLS INDICATION AND CONSENT Patient was seen and examined and was noted to be uncomfortable with RLQ abdominal pain. Informed that patient's urine contained blood. Inspection of urine showed christ blood and discussed with patient who stated bleeding was from vagina. Due to concern for evolving placental abruption a primary section was recommended. Patient was consented at bedside for risks of bleeding, infection and damage to surrounding structures. She was also counseled about the need for a classical section DETAILS OF PROCEDURE: She was placed in the supine position with a slight leftward tilt. The abdomen was prepped and draped in the usual manner. Anesthesia level was checked and was found to be adequate. The abdomen was entered through a transverse incision. The incision was carried through the subcutaneous tissue to the fascia which was nicked in the midline and carried transversely. Kochers were used to grasp the edges of the fascia with blunt and sharp dissection used to reflect the underlying rectus abdominis muscles. The muscles were in the midline bluntly exposing the parietal peritoneum. The peritoneum was entered bluntly. The peritoneal incision was extended bluntly with good visualization of bladder. Bladder retractor was placed as well as Esposito retractor. The lower uterine segment was opened with Classical incision with a scalpel. The amniotic cavity was entered and minimal amniotic fluid was noted. Bladder retractor and Esposito retractor were removed, and baby was delivered from the Breech position through the placenta, legs were grasped sacrum was rotated anterior and head was easily delivery with fundal pressure without difficuty.The baby was handed over to the ICU personnel standing by. Cord blood and gasses were obtained. Placenta was extracted intact with gentle traction, but was mostly already . Uterus was exteriorized and wrapped i (more content not included)... Normal [facility] PROTIME/INR & PTTon 01-06-20 aPTT Coag (Bld) [Time] 25.1 s 20.0 - 30.5 s [facility] Comment on above: NOTE: The therapeuti c time for Heparin anticoagulation, based on Xa activity inhibition, is an APTT of 46-80 seconds. INR Coag (Bld) [Relative time] 0.9 {INR} [facility] Comment on above: Recommended Anticoag ulant Therapy: SEE BELOW ----- INR of 2.0 - 3.0 : - Prophylaxis of Venous Thrombosis (high-risk surgery) - Treatment of Venous Thrombosis - Treatment of Pulmonary Embolism (Includes tissue heart valves, Acute Myocardial Infarction to prevent systemic embolism, Valvular Heart Disease, and Atrial Fibrillation) ----- INR of 2.5 - 3.5 : - Mechanical Prosthetic Valves (high risk) - If oral anticoagulant therapy is used to prevent Myocardial Infarction PT Coag (PPP) [Time] 10 s 9.0 - 1 2.0 s [facility] Comment on above: . Protime AND APTTon aPTT Coag (Bld) [Time] 25.1 s Normal 20.0-30.5 [facility] Comment on above: Result Comment: NOTE : The therapeutic time for Heparin anticoagulation, based on Xa activity inhibition, is an APTT of 46-80 seconds. Performed By: #### C MP3, HEMOG, MG3 #### [address] [address] INR 0.9 Normal 0.9-1.1 [facility] Comment on above: Result Comment: Nathan mmended Anticoagulant Therapy: SEE BELOW ----- INR of 2.0 - 3.0 : - Prophylaxis of Venous Thrombosis (high-risk surgery) - Treatment of Venous Thrombosis - Treatment of Pulmonary Embolism (Includes tissue heart valves, Acute Myocardial Infarction to prevent systemic embolism, Valvular Heart Disease, and Atrial Fibrillation) ----- INR of 2.5 - 3.5 : - Mechanical Prosthetic Valves (high risk) - If oral anticoagulant therapy is used to prevent Myocardial Infarction Performed By: #### C VALERIE3, ALFREDA, MG3 #### [employer] [address] [address] PT Coag (PPP) [Time] 10.0 s Normal 9.0-12.0 [facility] Comment on above: Result Comment: . Performed By: #### C VALERIE3, ALFREDA MG3 #### [address] [address] Surgical Pathologyon 021 Surgical Pathology [id number] [facility] PATHOLOGY AND LABORATORY MEDICINE [address] [place] [id number] FINAL SURGICAL PATHOLOGY REPORT NAME: KENDALL VASQUES : 1985 35 Y F [facility] NO.: [id number] LOCATION: [facility] 2210 01 PROCEDURE 01/05/2021 DATE: SURGEON: DO JAKE MIRELES 01/09/2021 DATE: ATTENDING: JOHN BAUER MD REPORT DATE: 01/15/2021 COPIES TO: DIAGNOSIS: PLACENTA, DELIVERY - TRIVASCULAR UMBILICAL CORD WITH FOCAL FUNISITIS, MEMBRANES WITH CHORIOAMNIONITIS, AND PLACENTA WITH MATURE CHORIONIC [place] [facility] [place] [place]> S ORQUIDEA SERVIN M.D. CLINICAL INFORMATION: Not provided. SPECIMEN: PLACENTA, NOS GROSS DESCRIPTION: Specimen received in fresh subsequently placed into formalin labeled placenta is a small placenta with attached portion of cord and a small amount of membrane. The membranes are torn at the margin. The membranes are khan-falk in color. surface is pink to blue-khan. The umbilical cord inserts into the membranes approximately 1.5 cm away from the margin of the placenta. Blood vessels course over the entire surface from the point of insertion. The umbilical cord segment measures 18 cm in length and averages 1 cm in diameter. It demonstrates normal coiling and upon transection shows three vessels. Without cord and membranes, the placenta weighs 130 g. The maternal surface is partially torn; however, no apparent loss of cotyledons is identified. Cut surfaces are soft, spongy, light pink-falk. No focal lesions are identified. Multiple administrative representative sections are submitted in four cassettes as follows: 1- distal umbilical cord and membrane roll; 2 - proximal umbilical cord and membrane roll; 3 and 4 - full-thickness sections of placenta. JCK/JAF Disclaimer: The following statement applies to all immunohistochemistry, in situ hybridization, molecular studies, and immunofluorescence testing. The use of one or more reagents in the above tests is regulated as an analyte specific reagent (ASR). These tests were developed and their performance characteristics determined by the clinical laboratories of [facility]. They have not been cleared by the US Food and Drug Administration (FDA). The FDA has determined that such clearance or approval is not necessary. All the above immunostains were performed on paraffin embedded tissue. Appropriate positive and negative controls (where applicable) were run in parallel with the patient's specimen; these controls showed expected staining pattern, with acceptable intensity of staining. Immunohistochemical assays have not been validated on decalcified tissues. Results should be interpreted with caution given the raised possibility of false negativity on decalcified specimens. Professional Performing Location: [facility] [address] [place] [address]. DEPARTMENT OF PATHOLOGY AND LABORATORY MEDICINE [place], [place] [address] [email or web address] Normal [facility] CBCon 01-04-2021 Hematocrit (Bld) [Volume fraction] 30.4 % Low 35.0 - 47.0 % [facility] Hemoglobin.gastrointest inal spec 1 Ql (Stl) 10.0 g/dL Low 11.7 - 16.0 g/dL [facility] Interpretation and review of laboratory results Abnormal [facility] MCH (RBC) [Entitic mass] 30.0 pg 26.0 - 34.0 pg [facility] MCHC (RBC) [Mass/Vol] 32.8 % 32.0 - 36.0 % [facility] MCV (RBC) [Entitic vol] 91.4 fL 79.0 - 98.0 fL [facility] Platelet distribution width (Bld) [Ratio] 13.2 % 11.5 - 14.5 % [facility] Platelet mean volume (Bld) [Entitic vol] 8.3 fL 7.4 - 10.4 fL [facility] Platelets (Bld) [#/Vol] 194 10*3/uL 140 - 440 10*3/uL [facility] RBC (Bld) [#/Vol] 3.33 10*6/uL Low 3.80 - 5.20 10*6/uL [facility] WBC (Bld) [#/Vol] 12.6 10*3/uL High 3.6 - 10.7 10*3/uL [facility] Test Performed by [facility], [address] [place] [address] [facility] COMPREHENSIVE METABOLIC PANE Bladimir 01-04-2021 Albumin [Mass/Vol] 3.2 g/dL Low 3.5 - 5.0 g/dL [facility] ALP (Bld) [Catalytic activity/Vol] 46 U/L 38 - 126 U/L [facility] ALT [Catalytic activity/Vol] 20 U/L 0 - 34 U/L [facility] Comment on above: The ALT test is perf ormed by an updated assay method. Please note that the reference intervals have been changed and are now sex specific. Anion gap [Moles/Vol] 4 mmol/L 3 - 13 mmol/L [facility] AST [Catalytic activity/Vol] 31 U/L 15 - 46 U/L [facility] Bilirubin [Mass/Vol] 0.2 mg/dL 0.2 - 1 .3 mg/dL [facility] Calcium [Mass/Vol] 8.3 mg/dL Low 8.4 - 10. 4 mg/dL [facility] Chloride [Moles/Vol] 108 mmol/L High 98 - 10 7 mmol/L [facility] CO2 [Moles/Vol] 22 mmol/L 22 - 30 mmol/L [facility] Creatinine [Mass/Vol] 0.59 mg/dL 0.52 - 1.25 mg/dL [facility] EGFR IF NonAfrican Cymro >90.0 >60 mL/min [facility] Comment on above: KDIGO guidelines pro vide the following GFR categories: Stage GFR(ml/min/1.73 m2) Terms G1 >=90 Normal or high G2 60-89 Mildly decreased* G3a 45-59 Mildly to moderately decreased G3b 30-44 Moderately to severely decreased G4 15-29 Severely decreased G5 <15 Kidney failure *Relative to young adult level. In the absence of evidence of kidney damage, neither GFR category G1 nor G2 fulfill the criteria for CKD. The CKD-EPI equation is validated in individuals 18 years of age and older. Currently the best equation for estimating glomerular filtration rate (GFR) from serum creatinine in children is the Bedside Newman equation. It is less accurate in patients with extremes of muscle mass, restriction of dietary protein, ingestion of creatine, extra-renal metabolism of creatinine, or treatment with medications that affect renal tubular creatinine secretion. Free PSA/Total PSA [Mass fraction] 5.9 g/dL Low 6.3 - 8.2 g/dL [facility] GFR/1.73 sq M.predicted among blacks MDRD (S/P/Bld) [Vol rate/Area] mL/min/{1.73_m2} >60 mL/min [facility] Glucose [Mass/Vol] 75 mg/dL 70 - 100 mg/dL [facility] Interpretation and review of laboratory results Abnormal [facility] Potassium [Moles/Vol] 3.9 mmol/L 3.5 - 5.1 mmol/L [facility] Sodium [Moles/Vol] 135 mmol/L 135 - 145 mmol/L [facility] Urea nitrogen (BldV) [Mass/Vol] 13 mg/dL 9 - 20 mg/dL [facility] Test Performed by [facility], [address] [place] [id number] [facility] Comp Metabolic Panelon 01-04 ALT [Catalytic activity/Vol] 20 U/L Normal 0-34 [facility] Comment on above: Result Comment: The ALT test is performed by an updated assay method. Please note that the reference intervals have been changed and are now sex specific. Performed By: #### H FELIPE CMP3 #### [address] Calcium [Mass/Vol] 8.3 mg/dL Low 8.4-10.4 [facility] Comment on above: Performed By: #### Moe WANG CMP3 #### [address] Glucose [Mass/Vol] 75 mg/dL Normal 70-100 [facility] Comment on above: Performed By: #### H FELIPE CMP3 #### [address] ALP [Catalytic activity/Vol] 46 U/L Normal 38-126 [facility] Comment on above: Performed By: #### H FELIPE CMP3 #### [address] Anion gap [Moles/Vol] 4 mmol/L Normal 3-13 [facility] Comment on above: Performed By: #### Moe WANG CMP3 #### [address] AST [Catalytic activity/Vol] 31 U/L Normal 15-46 [facility] Comment on above: Performed By: #### H JT WANG3 #### [facility] [address] [place], [place] Bilirubin [Mass/Vol] 0.2 mg/dL Normal 0.2-1.3 [facility] Comment on above: Performed By: #### H JT WANG3 #### [facility] [address] [place], [place] CO2 [Moles/Vol] 22 mmol/L Normal 22-30 [facility] Comment on above: Performed By: #### H JT WANG3 #### [facility] [address] [place], [place] Creatinine [Mass/Vol] 0.59 mg/dL Normal 0.52-1.25 [facility] Comment on above: Performed By: #### Moe WANG CMP3 #### [facility] [address] [place], [place] eGFR OTHER > 90.0 Normal >60 [facility] Comment on above: Result Comment: KDIG O guidelines provide the following GFR categories: Stage GFR(ml/min/1.73 m2) Terms G1 >=90 Normal or high G2 60-89 Mildly decreased* G3a 45-59 Mildly to moderately decreased G3b 30-44 Moderately to severely decreased G4 15-29 Severely decreased G5 <15 Kidney failure *Relative to young adult level. In the absence of evidence of kidney damage, neither GFR category G1 nor G2 fulfill the criteria for CKD. The CKD-EPI equation is validated in individuals 18 years of age and older. Currently the best equation for estimating glomerular filtration rate (GFR) from serum creatinine in children is the Bedside Newman equation. It is less accurate in patients with extremes of muscle mass, restriction of dietary protein, ingestion of creatine, extra-renal metabolism of creatinine, or treatment with medications that affect renal tubular creatinine secretion. Performed By: #### Moe WANG CMP3 #### [facility] [address] [place], [place] GFR/1.73 sq M.predicted among blacks MDRD (S/P/Bld) [Vol rate/Area] mL/min/{1.73_m2} Normal >60 [facility] Comment on above: Performed By: #### Moe WANG CMP3 #### [facility] [address] [place] [address] Protein [Mass/Vol] 5.9 g/dL Low 6.3-8.2 [facility] Comment on above: Performed By: #### H JT WANG3 #### [facility] [address] [place] [address] Urea nitrogen [Mass/Vol] 13 mg/dL Normal 9-20 [facility] Comment on above: Performed By: #### H FELIPE CMP3 #### [facility] [address] [place] [address] Potassium [Moles/Vol] 3.9 mmol/L Normal 3.5-5.1 [facility] Comment on above: Performed By: #### H JT WANG3 #### [place] [address] [place] [address] Sodium [Moles/Vol] 135 mmol/L Normal 135-145 [facility] Comment on above: Performed By: #### H JT WANG3 #### [facility] [address] [place] [address] Albumin [Mass/Vol] 3.2 g/dL Low 3.5-5.0 [facility] Comment on above: Performed By: #### H JT WANG3 #### [place] [address] [place] [address] Chloride [Moles/Vol] 108 mmol/L High 98-107 [facility] Comment on above: Performed By: #### H JT WANG3 #### [facility] [address] [place] [address] Hemogramon 01-04-2021 Erythrocyte distribution width (RBC) [Ratio] 13.2 % Normal 11.5-14.5 [facility] Comment on above: Performed By: #### H FELIPE CMP3 #### [facility] [address] [place] [address] Hematocrit (Bld) [Volume fraction] 30.4 % Low 35.0-47.0 [facility] Comment on above: Performed By: #### H EMOG, CMP3 #### [facility] [address] [place], [place] Hemoglobin (Bld) [Mass/Vol] 10.0 g/dL Low 11.7-16.0 [facility] Comment on above: Performed By: #### H EMOG, CMP3 #### [facility] [address] [place], [place] MCH (RBC) [Entitic mass] 30.0 pg Normal 26.0-34.0 [facility] Comment on above: Performed By: #### H EMOG, CMP3 #### [facility] [address] [place], [place] MCHC 32.8 % Normal 32.0-36.0 [facility] Comment on above: Performed By: #### H EMOG, CMP3 #### [facility] [address] [place], [place] MCV (RBC) [Entitic vol] 91.4 fL Normal 79.0-98.0 S [facility] Comment on above: Performed By: #### H EMOG, CMP3 #### [facility] [address] [place], [place] Platelet mean volume (Bld) [Entitic vol] 8.3 fL Normal 7.4-10.4 [facility] Comment on above: Performed By: #### H EMOG, CMP3 #### [facility] [address] [place], [place] Platelets (Bld) [#/Vol] 194 10*3/uL Normal 140-440 [facility] Comment on above: Performed By: #### H EMOG, CMP3 #### [facility] [address] [place], [place] RBC (Bld) [#/Vol] 3.33 10*6/uL Low 3.80-5.20 [facility] Comment on above: Performed By: #### H EMOG, CMP3 #### [facility] [address] [place], [place] WBC (Bld) [#/Vol] 12.6 10*3/uL High 3.6-10.7 [facility] Comment on above: Performed By: #### H EMOG, CMP3 #### [facility] [facility] [address] [place] [address] MFM US Biophy w/o non- stresson 01-04-2021 MFM US Biophy w/o non-stress Patient Name: KENDALL VASQUES Maternal Medicine ACCESSION EXAM DATE/TIME PROCEDURE ORDERING PROVIDER [id number] 01/04/2021 09:05 EST MFM US Biophy w/o ELVER ROTH non-stress Reason For Exam (MFM US Biophy w/o non-stress) PPROM Report OBSTETRICS REPORT (Signed Final 01/04/2021 03:07 pm) Patient Info ID #: [id number] : [birth year] (35 yrs) Name: KENDALL VASQUES Visit Date: 01/04/2021 09:03 am Performed By Attending: Sachin Pierce MD Referred By: ELVER ROTH Performed By: Yoly Treadwell Visit Type: Inpatient - Hospital Service(s) Provided BPP w/out NST 69845 US Doppler umbilical art 96697 Indications FGR PPROM Vital Signs Weight (lb): 135 Height: 5'4 BMI: 23.17 Evaluation Num Of Fetuses: 1 Heart Rate(bpm): 148 Cardiac Activity: Regular rhythm Lie: Longitudinal Presentation: Breech. compound Placenta: Anterior Amniotic Fluid VALARIE FV: Oligohydramnios VALARIE Sum(cm) %Tile Largest Pocket(cm) 0.6 < 3 0.6 RUQ(cm) RLQ(cm) LUQ(cm) LLQ(cm) 0 0.6 0 0 Biophysical Evaluation Maternal Medicine Report Amniotic F.V: Oigohydramnios F. Tone: Observed F. Movement: Observed Score: 6/8 F. Breathing: Observed Gestational Age Clinical JONATHON: 24w 0d JONATHON: 04/26/21 Best: 24w 0d Det. By: Clinical JONTAHON JONATHON: 04/26/21 Doppler - Vessels Umbilical Artery S/D %tile RI %tile PI %tile PSV (cm/s) 3.15 33 0.68 35 1.16 58 54.21 Impression - Rossi live intrauterine at 24w 0d. - The amniotic fluid index is 0.6cm, which is oligohydramnios - BPP 68 continued IP management per [facility] team Ultrasound is not diagnostic of chromosomal aneuploidy and does not detect all subtle defects. Normal ultrasound findings do not guarantee normal outcomes. Sachin Pierce MD Electronically Signed Final Report 01/04/2021 03:07 pm Final Dictated: 01/04/2021 9:03 am Dictating Physician: SACHIN GOEL Signed Date and Time: 01/04/2021 3:07 pm Signed by: SACHIN GOEL Ultrasound ACCESSION EXAM DATE/TIME PROCEDURE ORDERING PROVIDER [id number] 01/04/2021 09:05 EST [facility] US Biophy w/o ELVER ROTH non-stress Reason For Exam ([facility] US Biophy w/o non-stress) PPROM Report OBSTETRICS REPORT (Signed Final 01/04/2021 03:07 pm) Patient Info ID #: [id number] : [birth year] (35 yrs) Name: KENDALL VASQUES Visit Date: 01/04/2021 09:03 am Performed By Attending: Sachin Pierce MD Referred By: ELVER ROTH Performed By: Yoly Treadwell Visit Type: Inpatient - Hospital Ultrasound Report Service(s) Provided BPP w/out NST 17827 US Doppler umbilical art 84990 Indications FGR PPROM Vital Signs Weight (lb): 135 Height: 5'4 BMI: 23.17 Evaluation Num Of Fetuses: 1 Heart Rate(bpm): 148 Cardiac Activity: Regular rhythm Lie: Longitudinal Presentation: Breech. compound Placenta: Anterior Amniotic Fluid VALARIE FV: Oligohydramnios VALARIE Sum(cm) %Tile Largest Pocket(cm) 0.6 < 3 0.6 RUQ(cm) RLQ(cm) LUQ(cm) LLQ(cm) 0 0.6 0 0 Biophysical Evaluation Amniotic F.V: Oigohydramnios F. Tone: Observed F. Movement: Observed Score: 6/8 F. Breathing: Observed Gestational Age Clinical JONATHON: 24w 0d JONATHON: 04/26/21 Best: 24w 0d Det. By: Clinical JONATHON JOANTHON: 04/26/21 Doppler - Vessels Umbilical Artery S/D %tile RI %tile PI %tile PSV (cm/s) 3.15 33 0.68 35 1.16 58 54.21 Impression - Rossi live intrauterine at 24w 0d. - The amniotic fluid index is 0.6cm, which is oligohydramnios - BPP 6/8 continued IP management per [facility] team Ultrasound is not diagnostic of chromosomal aneuploidy and does not detect all subtle defects. Normal ultrasound findings do not guarantee normal outcomes. Ultrasound Report Sachin Pierce MD Electronically Signed Final Report 01/04/2021 03:07 pm Final Dictated: 01/04/2021 9:03 am Dictating Physician: [id number] -SACHIN PIERCE Signed Date and Time: 01/04/2021 3:07 pm Signed by: [id number] SACHIN VILLARREAL [facility] US Umbilical Artery Echo on 01-04-2021 [facility] US Umbilical Artery Echo Patient Name: KENDALL VASQUES Maternal Medicine ACCESSION EXAM DATE/TIME PROCEDURE ORDERING PROVIDER [id number] 01/04/2021 09:05 EST MFM US Biophy w/o ELVER ROTH non-stress Reason For Exam (MFM US Biophy w/o non-stress) PPROM Report OBSTETRICS REPORT (Signed Final 01/04/2021 03:07 pm) Patient Info ID #: [id number] : [birth year] (35 yrs) Name: KENDALL VASQUES Visit Date: 01/04/2021 09:03 am Performed By Attending: Sachin Pierce MD Referred By: ELVER ROTH Performed By: Yoly Treadwell Visit Type: Inpatient - Hospital Service(s) Provided BPP w/out NST 98106 US Doppler umbilical art 93440 Indications FGR PPROM Vital Signs Weight (lb): 135 Height: 5'4 BMI: 23.17 Evaluation Num Of Fetuses: 1 Heart Rate(bpm): 148 Cardiac Activity: Regular rhythm Lie: Longitudinal Presentation: Breech. compound Placenta: Anterior Amniotic Fluid VALARIE FV: Oligohydramnios VALARIE Sum(cm) %Tile Largest Pocket(cm) 0.6 < 3 0.6 RUQ(cm) RLQ(cm) LUQ(cm) LLQ(cm) 0 0.6 0 0 Biophysical Evaluation Maternal Medicine Report Amniotic F.V: Oigohydramnios F. Tone: Observed F. Movement: Observed Score: 6/8 F. Breathing: Observed Gestational Age Clinical JONATHON: 24w 0d JONATHON: 04/26/21 Best: 24w 0d Det. By: Clinical JONATHON JONATHON: 04/26/21 Doppler - Vessels Umbilical Artery S/D %tile RI %tile PI %tile PSV (cm/s) 3.15 33 0.68 35 1.16 58 54.21 Impression - Rossi live intrauterine at 24w 0d. - The amniotic fluid index is 0.6cm, which is oligohydramnios - BPP 6/8 continued IP management per M team Ultrasound is not diagnostic of chromosomal aneuploidy and does not detect all subtle defects. Normal ultrasound findings do not guarantee normal outcomes. Sachin Pierce MD Electronically Signed Final Report 01/04/2021 03:07 pm Final Dictated: 01/04/2021 9:03 am Dictating Physician: SACHIN GOEL Signed Date and Time: 01/04/2021 3:07 pm Signed by: SACHIN GOEL Ultrasound ACCESSION EXAM DATE/TIME PROCEDURE ORDERING PROVIDER [id number] 01/04/2021 09:05 EST [facility] US Biophy w/o ELVER ROTH non-stress Reason For Exam (M US Biophy w/o non-stress) PPROM Report OBSTETRICS REPORT (Signed Final 01/04/2021 03:07 pm) Patient Info ID #: [id number] : [birth year] (35 yrs) Name: KENDALL VASQUES Visit Date: 01/04/2021 09:03 am Performed By Attending: Sachin Pierce MD Referred By: ELVER ROTH Performed By: Yoly Treadwell Visit Type: Inpatient - Hospital Ultrasound Report Service(s) Provided BPP w/out NST 04804 US Doppler umbilical art 02089 Indications FGR PPROM Vital Signs Weight (lb): 135 Height: 5'4 BMI: 23.17 Evaluation Num Of Fetuses: 1 Heart Rate(bpm): 148 Cardiac Activity: Regular rhythm Lie: Longitudinal Presentation: Breech. compound Placenta: Anterior Amniotic Fluid VALARIE FV: Oligohydramnios VALARIE Sum(cm) %Tile Largest Pocket(cm) 0.6 < 3 0.6 RUQ(cm) RLQ(cm) LUQ(cm) LLQ(cm) 0 0.6 0 0 Biophysical Evaluation Amniotic F.V: Oigohydramnios F. Tone: Observed F. Movement: Observed Score: 68 F. Breathing: Observed Gestational Age Clinical JONATHON: 24w 0d JONATHON: 04/26/21 Best: 24w 0d Det. By: Clinical JONATHON JONATHON: 04/26/21 Doppler - Vessels Umbilical Artery S/D %tile RI %tile PI %tile PSV (cm/s) 3.15 33 0.68 35 1.16 58 54.21 Impression - Rossi live intrauterine at 24w 0d. - The amniotic fluid index is 0.6cm, which is oligohydramnios - BPP 6/8 continued IP management per [facility] team Ultrasound is not diagnostic of chromosomal aneuploidy and does not detect all subtle defects. Normal ultrasound findings do not guarantee normal outcomes. Ultrasound Report Sachin Pierce MD Electronically Signed Final Report 01/04/2021 03:07 pm Final Dictated: 01/04/2021 9:03 am Dictating Physician: SACHIN GOEL Signed Date and Time: 01/04/2021 3:07 pm Signed by: SACHIN GOEL [facility] No Panel Informationon 11-19 -2021 Radiology Study observation (narrative) [facility] Work Phone: RADIOLOGY REPORTon [facility] Rad[facility] (narrative[facility] TS GEL ABO Group: A Rh, Gel: POS Antibody Screen Gel: NEG Normal [facility] Comment on above: Performed By: #### T SGL #### [facility] TYPE AND SCREENon 01-04-2021 ABO Grouping A [facility] Rh Type Positive [facility] Test Performed by [address] LAB [facility] US DOPPLER UMBILICAL A RTERYon 01-04-2021 Patient Name: KENDALL SORIA Maternal Medicine ACCESSION EXAM DATE/TIME PROCEDURE ORDERING PROVIDER [id number] 01/04/2021 09:05 EST [facility] US Biophy w/o ELVER ROTH non-stress Reason For Exam (MFM US Biophy w/o non-stress) PPROM Report OBSTETRICS REPORT (Signed Final 01/04/2021 03:07 pm) Patient Info ID #: [id number] : [birth year] (35 yrs) Name: KENDALL VASQUES Visit Date: 01/04/2021 09:03 am Performed By Attending: Sachin Pierce MD Referred By: ELVER ROTH Performed By: Yoly Treadwell Visit Type: Inpatient - Hospital Service(s) Provided BPP w/out NST 08304 US Doppler umbilical art 69381 Indications FGR PPROM Vital Signs Weight (lb): 135 Height: 5'4 BMI: 23.17 Evaluation Num Of Fetuses: 1 Heart Rate(bpm): 148 Cardiac Activity: Regular rhythm Lie: Longitudinal Presentation: Breech. compound Placenta: Anterior Amniotic Fluid VALARIE FV: Oligohydramnios VALARIE Sum(cm) %Tile Largest Pocket(cm) 0.6 < 3 0.6 RUQ(cm) RLQ(cm) LUQ(cm) LLQ(cm) 0 0.6 0 0 Biophysical Evaluation Maternal Medicine Report Amniotic F.V: Oigohydramnios F. Tone: Observed F. Movement: Observed Score: 6/8 F. Breathing: Observed Gestational Age Clinical JONATHON: 24w 0d JONATHON: 04/26/21 Best: 24w 0d Det. By: Clinical JONATHON JONATHON: 04/26/21 Doppler - Vessels Umbilical Artery S/D %tile RI %tile PI %tile PSV (cm/s) 3.15 33 0.68 35 1.16 58 54.21 Impression - Rossi live intrauterine at 24w 0d. - The amniotic fluid index is 0.6cm, which is oligohydramnios - BPP 6/8 continued IP management per [facility] team Ultrasound is not diagnostic of chromosomal aneuploidy and does not detect all subtle defects. Normal ultrasound findings do not guarantee normal outcomes. Sachin Pierce MD Electronically Signed Final Report 01/04/2021 03:07 pm --- Final --- Dictated: 01/04/2021 9:03 am Dictating Physician: SACHIN GOEL Signed Date and Time: 01/04/2021 3:07 pm Signed by: SACHIN GOEL Ultrasound ACCESSION EXAM DATE/TIME PROCEDURE ORDERING PROVIDER [id number] 01/04/2021 09:05 EST [facility] US Biophy w/o ELVER ROTH non-stress Reason For Exam ([facility] US Biophy w/o non-stress) PPROM Report OBSTETRICS REPORT (Signed Final 01/04/2021 03:07 pm) Patient Info ID #: [id number] : [birth year] (35 yrs) Name: KENDALL VASQUES Visit Date: 01/04/2021 09:03 am Performed By Attending: Sachin Pierce MD Referred By: ELVER ROTH Performed By: Yoly Treadwell Visit Type: Inpatient - Hospital Ultrasound Report Service(s) Provided BPP w/out NST 25808 US Doppler umbilical art 67834 Indications FGR PPROM Vital Signs Weight (lb): 135 Height: 5'4 BMI: 23.17 Evaluation Num Of Fetuses: 1 Heart Rate(bpm): 148 Cardiac Activity: Regular rhythm Lie: Longitudinal Presentation: Breech. compound Placenta: Anterior Amniotic Fluid VALARIE FV: Oligohydramnios VALARIE Sum(cm) %Tile Largest Pocket(cm) 0.6 < 3 0.6 RUQ(cm) RLQ(cm) LUQ(cm) LLQ(cm) 0 0.6 0 0 Biophysical Evaluation Amniotic F.V: Oigohydramnios F. Tone: Observed F. Movement: Observed Score: 6/8 F. Breathing: Observed Gestational Age Clinical JONATHON: 24w 0d (more content not included)... [facility] Work Phone: Sachin Pierce MD - 01/04/2021 Patient Name: KENDALL VASQUES Maternal Medicine ACCESSION EXAM DATE/TIME PROCEDURE ORDERING PROVIDER [id number] 01/04/2021 09:05 EST [facility] US Biophy w/o ELVER ROTH non-stress Reason For Exam ([facility] US Biophy w/o non-stress) PPROM Report OBSTETRICS REPORT (Signed Final 01/04/2021 03:07 pm) Patient Info ID #: [id number] : [birth year] (35 yrs) Name: KENDALL VASQUES Visit Date: 01/04/2021 09:03 am Performed By Attending: Sachin Pierce MD Referred By: ELVER ROTH Performed By: Yoly Treadwell Visit Type: Inpatient - Hospital Service(s) Provided BPP w/out NST 38999 US Doppler umbilical art 56835 Indications FGR PPROM Vital Signs Weight (lb): 135 Height: 5'4 BMI: 23.17 Evaluation Num Of Fetuses: 1 Heart Rate(bpm): 148 Cardiac Activity: Regular rhythm Lie: Longitudinal Presentation: Breech. compound Placenta: Anterior Amniotic Fluid VALARIE FV: Oligohydramnios VALARIE Sum(cm) %Tile Largest Pocket(cm) 0.6 < 3 0.6 RUQ(cm) RLQ(cm) LUQ(cm) LLQ(cm) 0 0.6 0 0 Biophysical Evaluation Maternal Medicine Report Amniotic F.V: Oigohydramnios F. Tone: Observed F. Movement: Observed Score: 6/8 F. Breathing: Observed Gestational Age Clinical JONATHON: 24w 0d JONATHON: 04/26/21 Best: 24w 0d Det. By: Clinical JONATHON JONATHON: 04/26/21 Doppler - Vessels Umbilical Artery S/D %tile RI %tile PI %tile PSV (cm/s) 3.15 33 0.68 35 1.16 58 54.21 Impression - Rossi live intrauterine at 24w 0d. - The amniotic fluid index is 0.6cm, which is oligohydramnios - BPP 6/8 continued IP management per [facility] team Ultrasound is not diagnostic of chromosomal aneuploidy and does not detect all subtle defects. Normal ultrasound findings do not guarantee normal outcomes. Sachin Pierce MD Electronically Signed Final Report 01/04/2021 03:07 pm --- Final --- Dictated: 01/04/2021 9:03 am Dictating Physician: SACHIN GOEL Signed Date and Time: 01/04/2021 3:07 pm Signed by: SACHIN GOEL Ultrasound ACCESSION EXAM DATE/TIME PROCEDURE ORDERING PROVIDER [id number] 01/04/2021 09:05 EST [facility] US Biophy w/o ELVER ROTH non-stress Reason For Exam ([facility] US Biophy w/o non-stress) PPROM Report OBSTETRICS REPORT (Signed Final 01/04/2021 03:07 pm) Patient Info ID #: [id number] : [birth year] (35 yrs) Name: KENDALL VASQUES Visit Date: 01/04/2021 09:03 am Performed By Attending: Sachin Pierce MD Referred By: ELVER ROTH Performed By: Yoly Treadwell Visit Type: Inpatient - Hospital Ultrasound Report Service(s) Provided BPP w/out NST 45268 US Doppler umbilical art 91948 Indications FGR PPROM Vital Signs Weight (lb): 135 Height: 5'4 BMI: 23.17 Evaluation Num Of Fetuses: 1 Heart Rate(bpm): 148 Cardiac Activity: Regular rhythm Lie: Longitudinal Presentation: Breech. compound Placenta: Anterior Amniotic Fluid VALARIE FV: Oligohydramnios VALARIE Sum(cm) %Tile Largest Pocket(cm) 0.6 < 3 0.6 RUQ(cm) RLQ(cm) LUQ(cm) LLQ(cm) 0 0.6 0 0 Biophysical Evaluation Amniotic F.V: Oigohydramnios F. Tone: Observed F. Movement: Observed Score: 6/8 F. Breathing: Observed Gestational Age Clinical JONATHON: 24w 0d JONATHON: 04/26/21 Best: 24w 0d Det. By: Clinical JONATHON JONATHON: 04/26/21 Doppler - Vessels Umbilical Artery S/D %tile RI %tile PI %tile PSV (cm/s) 3.15 33 0.68 35 1.16 58 54.21 Impression - Rossi live intrauterine at 24w 0d. - The amniotic fluid index is 0.6cm, which is oligohydramnios - BPP 68 continued IP management per [facility] team Ultrasound is not diagnostic of chromosomal aneuploidy and does not detect all subtle defects. Normal ultrasound findings do not guarantee normal outcomes. Ultrasound Report Sachin Pierce MD Electronically Signed Final Report 01/04/2021 03:07 pm --- Final --- Dictated: 01/04/2021 9:03 am Dictating Physician: SACHIN GOEL Signed Date and Time: 01/04/2021 3:07 pm Signed by: SACHIN GOEL [facility] Work Phone: [facility] Work Phone: US BIOPHYSICAL PROFILE WO NON STRESS TESTINGon 01-04-2021 Patient Name: KENDALL SORIA Maternal Medicine ACCESSION EXAM DATE/TIME PROCEDURE ORDERING PROVIDER [id number] 01/04/2021 09:05 EST [facility] US Biophy w/o ELVER ROTH non-stress Reason For Exam ([facility] US Biophy w/o non-stress) PPROM Report OBSTETRICS REPORT (Signed Final 01/04/2021 03:07 pm) Patient Info ID #: [id number] : [birth year] (35 yrs) Name: KENDALL VASQUES Visit Date: 01/04/2021 09:03 am Performed By Attending: Sachin Pierce MD Referred By: ELVER ROTH Performed By: Yoly Treadwell Visit Type: Inpatient - Hospital Service(s) Provided BPP w/out NST 33223 US Doppler umbilical art 99310 Indications FGR PPROM Vital Signs Weight (lb): 135 Height: 5'4 BMI: 23.17 Evaluation Num Of Fetuses: 1 Heart Rate(bpm): 148 Cardiac Activity: Regular rhythm Lie: Longitudinal Presentation: Breech. compound Placenta: Anterior Amniotic Fluid VALARIE FV: Oligohydramnios VALARIE Sum(cm) %Tile Largest Pocket(cm) 0.6 < 3 0.6 RUQ(cm) RLQ(cm) LUQ(cm) LLQ(cm) 0 0.6 0 0 Biophysical Evaluation Maternal Medicine Report Amniotic F.V: Oigohydramnios F. Tone: Observed F. Movement: Observed Score: 6/8 F. Breathing: Observed Gestational Age Clinical JONATHON: 24w 0d JONATHON: 04/26/21 Best: 24w 0d Det. By: Clinical JONATHON JONATHON: 04/26/21 Doppler - Vessels Umbilical Artery S/D %tile RI %tile PI %tile PSV (cm/s) 3.15 33 0.68 35 1.16 58 54.21 Impression - Rossi live intrauterine at 24w 0d. - The amniotic fluid index is 0.6cm, which is oligohydramnios - BPP 6/8 continued IP management per [facility] team Ultrasound is not diagnostic of chromosomal aneuploidy and does not detect all subtle defects. Normal ultrasound findings do not guarantee normal outcomes. Sachin Pierce MD Electronically Signed Final Report 01/04/2021 03:07 pm --- Final --- Dictated: 01/04/2021 9:03 am Dictating Physician: SACHIN GOEL Signed Date and Time: 01/04/2021 3:07 pm Signed by: SACHIN GOEL Ultrasound ACCESSION EXAM DATE/TIME PROCEDURE ORDERING PROVIDER [id number] 01/04/2021 09:05 EST [facility] US Biophy w/o ELVER ROTH non-stress Reason For Exam ([facility] US Biophy w/o non-stress) PPROM Report OBSTETRICS REPORT (Signed Final 01/04/2021 03:07 pm) Patient Info ID #: [id number] : [birth year] (35 yrs) Name: KENDALL VASQUES Visit Date: 01/04/2021 09:03 am Performed By Attending: Sachin Pierce MD Referred By: ELVER ROTH Performed By: Yoly Treadwell Visit Type: Inpatient - Hospital Ultrasound Report Service(s) Provided BPP w/out NST 40028 US Doppler umbilical art 18279 Indications FGR PPROM Vital Signs Weight (lb): 135 Height: 5'4 BMI: 23.17 Evaluation Num Of Fetuses: 1 Heart Rate(bpm): 148 Cardiac Activity: Regular rhythm Lie: Longitudinal Presentation: Breech. compound Placenta: Anterior Amniotic Fluid VALARIE FV: Oligohydramnios VALARIE Sum(cm) %Tile Largest Pocket(cm) 0.6 < 3 0.6 RUQ(cm) RLQ(cm) LUQ(cm) LLQ(cm) 0 0.6 0 0 Biophysical Evaluation Amniotic F.V: Oigohydramnios F. Tone: Observed F. Movement: Observed Score: 6/8 F. Breathing: Observed Gestational Age Clinical JONATHON: 24w 0d (more content not included)... [facility] Work Phone: Sachin Pierce MD - 01/04/2021 Patient Name: KENDALL VASQUES Maternal Medicine ACCESSION EXAM DATE/TIME PROCEDURE ORDERING PROVIDER [id number] 01/04/2021 09:05 EST [facility] US Biophy w/o ELVER ROTH non-stress Reason For Exam ([facility] US Biophy w/o non-stress) PPROM Report OBSTETRICS REPORT (Signed Final 01/04/2021 03:07 pm) Patient Info ID #: [id number] : [birth year] (35 yrs) Name: KENDALL VASQUES Visit Date: 01/04/2021 09:03 am Performed By Attending: Sachin Pierce MD Referred By: ELVER ROTH Performed By: Yoly Treadwell Visit Type: Inpatient - Hospital Service(s) Provided BPP w/out NST 15324 US Doppler umbilical art 93350 Indications FGR PPROM Vital Signs Weight (lb): 135 Height: 5'4 BMI: 23.17 Evaluation Num Of Fetuses: 1 Heart Rate(bpm): 148 Cardiac Activity: Regular rhythm Lie: Longitudinal Presentation: Breech. compound Placenta: Anterior Amniotic Fluid VALARIE FV: Oligohydramnios VALARIE Sum(cm) %Tile Largest Pocket(cm) 0.6 < 3 0.6 RUQ(cm) RLQ(cm) LUQ(cm) LLQ(cm) 0 0.6 0 0 Biophysical Evaluation Maternal Medicine Report Amniotic F.V: Oigohydramnios F. Tone: Observed F. Movement: Observed Score: 68 F. Breathing: Observed Gestational Age Clinical JONATHON: 24w 0d JONATHON: 04/26/21 Best: 24w 0d Det. By: Clinical JONATHON JONATHON: 04/26/21 Doppler - Vessels Umbilical Artery S/D %tile RI %tile PI %tile PSV (cm/s) 3.15 33 0.68 35 1.16 58 54.21 Impression - Rossi live intrauterine at 24w 0d. - The amniotic fluid index is 0.6cm, which is oligohydramnios - BPP 8 continued IP management per [facility] team Ultrasound is not diagnostic of chromosomal aneuploidy and does not detect all subtle defects. Normal ultrasound findings do not guarantee normal outcomes. Sachin Pierce MD Electronically Signed Final Report 01/04/2021 03:07 pm --- Final --- Dictated: 01/04/2021 9:03 am Dictating Physician: SACHIN GOEL Signed Date and Time: 01/04/2021 3:07 pm Signed by: SACHIN GOEL Ultrasound ACCESSION EXAM DATE/TIME PROCEDURE ORDERING PROVIDER [id number] 01/04/2021 09:05 EST [facility] US Biophy w/o ELVER ROTH non-stress Reason For Exam ([facility] US Biophy w/o non-stress) PPROM Report OBSTETRICS REPORT (Signed Final 01/04/2021 03:07 pm) Patient Info ID #: [id number] : [birth year] (35 yrs) Name: KENDALL VASQUES Visit Date: 01/04/2021 09:03 am Performed By Attending: Sachin Pierce MD Referred By: ELVER ROTH Performed By: Yoly Treadwell Visit Type: Inpatient - Hospital Ultrasound Report Service(s) Provided BPP w/out NST 01570 US Doppler umbilical art 06150 Indications FGR PPROM Vital Signs Weight (lb): 135 Height: 5'4 BMI: 23.17 Evaluation Num Of Fetuses: 1 Heart Rate(bpm): 148 Cardiac Activity: Regular rhythm Lie: Longitudinal Presentation: Breech. compound Placenta: Anterior Amniotic Fluid VALARIE FV: Oligohydramnios VALARIE Sum(cm) %Tile Largest Pocket(cm) 0.6 < 3 0.6 RUQ(cm) RLQ(cm) LUQ(cm) LLQ(cm) 0 0.6 0 0 Biophysical Evaluation Amniotic F.V: Oigohydramnios F. Tone: Observed F. Movement: Observed Score: 6/8 F. Breathing: Observed Gestational Age Clinical JONATHON: 24w 0d JONATHON: 04/26/21 Best: 24w 0d Det. By: Clinical JONATHON JONATHON: 04/26/21 Doppler - Vessels Umbilical Artery S/D %tile RI %tile PI %tile PSV (cm/s) 3.15 33 0.68 35 1.16 58 54.21 Impression - Rossi live intrauterine at 24w 0d. - The amniotic fluid index is 0.6cm, which is oligohydramnios - BPP 6/8 continued IP management per [facility] team Ultrasound is not diagnostic of chromosomal aneuploidy and does not detect all subtle defects. Normal ultrasound findings do not guarantee normal outcomes. Ultrasound Report Sachin Pierce MD Electronically Signed Final Report 01/04/2021 03:07 pm --- Final --- Dictated: 01/04/2021 9:03 am Dictating Physician: SACHIN GOEL Signed Date and Time: 01/04/2021 3:07 pm Signed by: SACHIN GOEL [facility] Work Phone: [facility] Work Phone: CULTURE URINEon 01-02-2021 CULTURE URINE CULTURE URINE --> St atus: F No growth (<1,000 CFU/ml). Normal [facility] Comment on above: Performed By: #### H EMGB #### [facility] [address] [place], [place] Complete Urinalysison 2020 Appearance (U) Clear Normal Clear [facility] Comment on above: Result Comment: . Performed By: #### C MP3, HEMOG, MG3 #### [place] [address], [place] Bacteria LM.HPF (Urine sed) [#/Area] Negative Normal Negative [facility] Comment on above: Result Comment: . Performed By: #### C MP3, HEMOG, MG3 #### [place] [address], [place] Bilirubin,Urine Negative Normal Negative [facility] Comment on above: Result Comment: . Performed By: #### C MP3, HEMOG, MG3 #### [place] [address], [place] Cast, Hyaline Negative Normal Negative [facility] Comment on above: Result Comment: . Performed By: #### C MP3, HEMOG, MG3 #### [place] [address], [place] Color (U) Colorless Normal Lt. Yellow [facility] Comment on above: Result Comment: . Performed By: #### C MP3, HEMOG, MG3 #### [place] [address] [place], [place] Glucose Ql (U) Normal Normal Normal (<70) [facility] Comment on above: Result Comment: . Performed By: #### C MP3, HEMOG, MG3 #### [facility] [address] [place], [place] Ketone,Urine 10 mg/dL Abnormal Negative [facility] Comment on above: Result Comment: . Performed By: #### C MP3, HEMOG, MG3 #### [place] [address], [place] Leukocytes,Urine 25 Raymundo/uL Abnormal Negative [facility] Comment on above: Result Comment: . Performed By: #### C MP3, HEMOG, MG3 #### [place] [address], [place] Mucous Threads Few Normal Negative [facility] Comment on above: Result Comment: . Performed By: #### C MP3, HEMOG, MG3 #### [place] [address] [place], [place] Nitrites,Urine Negative Normal Negative [facility] Comment on above: Result Comment: . Performed By: #### C MP3, HEMOG, MG3 #### [place] [address], [place] Occult Blood,Urine 0.06 mg/dL Abnormal Negative [facility] Comment on above: Result Comment: . Performed By: #### C MP3, HEMOG, MG3 #### [place] [address], [place] pH,Urine 7.0 Normal 5.0-8.0 [facility] Comment on above: Result Comment: . Performed By: #### C MP3, HEMOG, MG3 #### [place] [address] [place], [place] RBC, Urine 0 - 2 Normal 0-2 [facility] Comment on above: Result Comment: . Performed By: #### C MP3, HEMOG, MG3 #### [place] [address], [place] Specific [place],Urine 1.008 Normal 1.005 - 1.030 [facility] Comment on above: Result Comment: . Performed By: #### C MP3, HEMOG, MG3 #### [place] [address], [place] Squamous Epithelial 0 - 2 Normal 3-5 [facility] Comment on above: Result Comment: . Performed By: #### C MP3, HEMOG, MG3 #### [place] [address], [place] Total Protein,Urine Negative Normal Negative [facility] Comment on above: Result Comment: . Performed By: #### C MP3, HEMOG, MG3 #### [place] [address] [place], [place] Urobilinogen,Urine Normal Normal Normal (0-1) [facility] Comment on above: Result Comment: . Performed By: #### C MP3, HEMOG, MG3 #### [place] [address] [place], [place] WBC, Urine 0 - 2 Normal 0-5 [facility] Comment on above: Result Comment: . Performed By: #### C MP3, HEMOG, MG3 #### [place] [address] [place], [place] Group B Strep Screen PCRon 1 03-04-2020 Group B Strep Screen PCR Group B Strep Screen PCR --> Status: F NEGATIVE Expected Result: Negative CDC guidelines for prevention of Group B Strep disease recommends collection of both vaginal and rectal specimens for optimal recovery of GBS. Methodology - Real Time PCR (Cepheid) Expected Result: Negative CDC guidelines for prevention of Group B Strep disease recommends collection of both vaginal and rectal specimens for optimal recovery of GBS. Methodology - Real Time PCR (Cepheid) Normal [facility] Comment on above: Performed By: #### H EMGB #### [place] [address], [place] Group B Strep, PCRon 021 Group B Strep Screen PCR NEGATIVE Expected Result: Negative CDC guidelines for prevention of Group B Strep disease recommends collection of both vaginal and rectal specimens for optimal recovery of GBS. Methodology - Real Time PCR (Cepheid) [facility] Test Performed by [facility], [address], [place] [id number] [place] [address] LAB [facility] US RETROPERITONEAL COMPLETEo n 01-02-2021 Patient Name: KENDALL SORIA Ultrasound ACCESSION EXAM DATE/TIME PROCEDURE ORDERING PROVIDER [id number] 01/02/2021 12:19 EST US Retroperitoneal MARY LOU VELASQUEZ Complete CPT code 08325 Reason For Exam (US Retroperitoneal Complete) right flank pain, hx kidney stones and prior stents Report EXAMINATION: Ultrasound of the kidneys and urinary bladder. EXAM DATE & TIME: 01/02/2021 12:19 PM EST INDICATION: right flank pain, hx kidney stones and prior stents ADDITIONAL INFORMATION: 35-year-old female with right flank pain and history of nephrolithiasis presents for evaluation COMPARISON: None LIMITATIONS: None TECHNIQUE: Ultrasound real-time scan with image documentation of the kidneys and urinary bladder was performed. Additionally, color Doppler evaluation was performed. FINDINGS: RIGHT KIDNEY Size: 10.8 x 6.5 x 5.6 cm Renal cortex: Normal. Hydronephrosis: There is mild right hydronephrosis. Calculi, cysts or masses: Two nonshadowing echogenic renal calculi are present, each of which measures approximately 0.3 cm. LEFT KIDNEY Size: 12.2 x 5.9 x 4.4 cm Renal cortex: Normal. Hydronephrosis: None. Calculi, cysts or masses: None. URINARY BLADDER Echogenic debris is present in the bladder. OTHER FINDINGS Incidental note made of a partially open cervix by 1.6 cm. IMPRESSION: 1. Multiple nonshadowing echogenic renal calculi measuring approximately 0.3 cm with mild right hydronephrosis. 2. Incidental note made of a partially open cervix. CRITICAL TEST RESULT COMMUNICATION: The findings were discussed with Ultrasound Report Dr. Velasquez on 01/02/2021 at 3:06 PM. Report Dictated on --- Final --- Dictated: 01/02/2021 3:01 pm Dictating Physician: MD CHANDRA CHRISTOPHER Signed Date and Time: 01/02/2021 3:07 pm Signed by: MD CHANDRA CHRISTOPHER Transcribed Date and Time: 01/02/2021 3:01 [facility] Result, Unknown Prov ider - 01/02/2021 Patient Name: KENDALL VASQUES Ultrasound ACCESSION EXAM DATE/TIME PROCEDURE ORDERING PROVIDER [id number] 01/02/2021 12:19 EST US Retroperitoneal MARY LOU VELASQUEZ Complete CPT code 99216 Reason For Exam (US Retroperitoneal Complete) right flank pain, hx kidney stones and prior stents Report EXAMINATION: Ultrasound of the kidneys and urinary bladder. EXAM DATE & TIME: 01/02/2021 12:19 PM EST INDICATION: right flank pain, hx kidney stones and prior stents ADDITIONAL INFORMATION: 35-year-old female with right flank pain and history of nephrolithiasis presents for evaluation COMPARISON: None LIMITATIONS: None TECHNIQUE: Ultrasound real-time scan with image documentation of the kidneys and urinary bladder was performed. Additionally, color Doppler evaluation was performed. FINDINGS: RIGHT KIDNEY Size: 10.8 x 6.5 x 5.6 cm Renal cortex: Normal. Hydronephrosis: There is mild right hydronephrosis. Calculi, cysts or masses: Two nonshadowing echogenic renal calculi are present, each of which measures approximately 0.3 cm. LEFT KIDNEY Size: 12.2 x 5.9 x 4.4 cm Renal cortex: Normal. Hydronephrosis: None. Calculi, cysts or masses: None. URINARY BLADDER Echogenic debris is present in the bladder. OTHER FINDINGS Incidental note made of a partially open cervix by 1.6 cm. IMPRESSION: 1. Multiple nonshadowing echogenic renal calculi measuring approximately 0.3 cm with mild right hydronephrosis. 2. Incidental note made of a partially open cervix. CRITICAL TEST RESULT COMMUNICATION: The findings were discussed with Ultrasound Report Dr. Velasquez on 01/02/2021 at 3:06 PM. Report Dictated on --- Final --- Dictated: 01/02/2021 3:01 pm Dictating Physician: MD CHANDRA CHRISTOPHER Signed Date and Time: 01/02/2021 3:07 pm Signed by: MD CHANDRA CHRISTOPHER Transcribed Date and Time: 01/02/2021 3:01 [facility] Work Phone: [facility] Work Phone: Radiology Study observation (narrative) [facility] Work Phone: US Retroperitoneal Completeo n 01-02-2021 US Retroperitoneal Complete Patient Name: KENDALL VASQUES Ultrasound ACCESSION EXAM DATE/TIME PROCEDURE ORDERING PROVIDER [id number] 01/02/2021 12:19 EST US Retroperitoneal MARY LOU VELASQUEZ Complete CPT code 79106 Reason For Exam (US Retroperitoneal Complete) right flank pain, hx kidney stones and prior stents Report EXAMINATION: Ultrasound of the kidneys and urinary bladder. EXAM DATE and TIME: 01/02/2021 12:19 PM EST INDICATION: right flank pain, hx kidney stones and prior stents ADDITIONAL INFORMATION: 35-year-old female with right flank pain and history of nephrolithiasis presents for evaluation COMPARISON: None LIMITATIONS: None TECHNIQUE: Ultrasound real-time scan with image documentation of the kidneys and urinary bladder was performed. Additionally, color Doppler evaluation was performed. FINDINGS: RIGHT KIDNEY Size: 10.8 x 6.5 x 5.6 cm Renal cortex: Normal. Hydronephrosis: There is mild right hydronephrosis. Calculi, cysts or masses: Two nonshadowing echogenic renal calculi are present, each of which measures approximately 0.3 cm. LEFT KIDNEY Size: 12.2 x 5.9 x 4.4 cm Renal cortex: Normal. Hydronephrosis: None. Calculi, cysts or masses: None. URINARY BLADDER Echogenic debris is present in the bladder. OTHER FINDINGS Incidental note made of a partially open cervix by 1.6 cm. IMPRESSION: 1. Multiple nonshadowing echogenic renal calculi measuring approximately 0.3 cm with mild right hydronephrosis. 2. Incidental note made of a partially open cervix. CRITICAL TEST RESULT COMMUNICATION: The findings were discussed with Ultrasound Report Dr. Velasquez on 01/02/2021 at 3:06 PM. Report Dictated on Final Dictated: 01/02/2021 3:01 pm Dictating Physician: MD CHANDRA CHRISTOPHER Signed Date and Time: 01/02/2021 3:07 pm Signed by: MD CHANDRA CHRISTOPHER Transcribed Date and Time: 01/02/2021 3:01 Normal [facility] Urinalysison 11-17-2021 Appearance (U) Clear Clear NA [facility] Comment on above: . Bacteria, UA Negative Negative /[HPF] [facility] Comment on above: . Bilirubin Urine Negative Negative mg/dL [facility] Comment on above: . Color (U) Colorless Lt. Yellow NA [facility] Comment on above: . Glucose, Ur Normal Normal (<70) mg/dL [facility] Comment on above: . Hyaline Casts, UA Negative Negative /[LPF] [facility] Comment on above: . Interpretation and review of laboratory results Abnormal [facility] Ketones Ql (U) 10 mg/dL Abnormal Negative [facility] Comment on above: . LEUKOCYTES, UA 25 Abnormal Negative Raymundo/uL [facility] Comment on above: . Mucous Threads Few Negative /[LPF] [facility] Comment on above: . Nitrite, Urine Negative Negative NA [facility] Comment on above: . Occult Blood,Urine 0.06 mg/dL Abnormal Negative [facility] Comment on above: . pH (U) 7.0 [pH] [facility] Comment on above: . RBC, UA 0-2 0 - 2 /[HPF] [facility] Comment on above: . Specific [place], Urine 1.008 S [facility] Comment on above: . Squam Epithel, UA 0-2 3 - 5 /[HPF] [facility] Comment on above: . Total Protein, Urine Negative Negativ e mg/dL [facility] Comment on above: . Urobilinogen, Urine Normal Normal (0-1) mg/dL [facility] Comment on above: . WBC, UA 0-2 0 - 5 /[HPF] [facility] Comment on above: . Test Performed by [facility], [address] [place] [id number] [facility] Urine cultureon 01-02-2021 Bacteria identified Cx Nom (U) No growth (<1,000 CFU/ml). [facility] Test Performed by [address] [address] [facility] C. Trachomatis / N. Gonorrho eae, DNA Probeon 01-01-2021 C. trachomatis DNA DAYAMI+probe Ql (Genital specimen) NOT Detected Chlamydia trachomatis Nucleic Acid NOT Detected by DNA Amplification using the KonTEM System. Culture is the only recommended test in medical-legal cases such as suspected child abuse or molestation. [facility] N. gonorrhoeae DNA DAYAMI+probe Ql (Unsp spec) NOT Detected Neisseria gonorrhoeae Nucleic Acid NOT Detected by DNA Amplification using the Cepheid System. Culture is the only recommended test in medical-legal cases such as suspected child abuse or molestation. [facility] CBCon 01-01-2021 Hematocrit (Bld) [Volume fraction] 34.9 % Low 35.0 - 47.0 % [facility] Hemoglobin.gastrointest inal spec 1 Ql (Stl) 11.3 g/dL Low 11.7 - 16.0 g/dL [facility] Interpretation and review of laboratory results Abnormal [facility] MCH (RBC) [Entitic mass] 30.1 pg 26.0 - 34.0 pg [facility] MCHC (RBC) [Mass/Vol] 32.3 % 32.0 - 36.0 % [facility] MCV (RBC) [Entitic vol] 93.2 fL 79.0 - 98.0 fL [facility] Platelet distribution width (Bld) [Ratio] 12.8 % 11.5 - 14.5 % [facility] Platelet mean volume (Bld) [Entitic vol] 8.4 fL 7.4 - 10.4 fL [facility] Platelets (Bld) [#/Vol] 214 10*3/uL 140 - 440 10*3/uL [facility] RBC (Bld) [#/Vol] 3.75 10*6/uL Low 3.80 - 5.20 10*6/uL [facility] WBC (Bld) [#/Vol] 11.4 10*3/uL High 3.6 - 10.7 10*3/uL [facility] Test Performed by [facility], [address] [place] [id number] [place] [address] LAB [facility] Chlamydia and GC PCR Panelon 01-01-2021 Chlamydia and GC PCR Panel Chlamydia trachomatis PCR --> Status: F NOT Detected Chlamydia trachomatis Nucleic Acid NOT Detected by DNA Amplification using the Cepheid System. Culture is the only recommended test in medical-legal cases such as suspected child abuse or molestation. Chlamydia trachomatis Nucleic Acid NOT Detected by DNA Amplification using the Cepheid System. Culture is the only recommended test in medical-legal cases such as suspected child abuse or molestation. Neisseria gonorrhoeae PCR --> Status: F NOT Detected Neisseria gonorrhoeae Nucleic Acid NOT Detected by DNA Amplification using the Cepheid System. Culture is the only recommended test in medical-legal cases such as suspected child abuse or molestation. Neisseria gonorrhoeae Nucleic Acid NOT Detected by DNA Amplification using the KonTEM System. Culture is the only recommended test in medical-legal cases such as suspected child abuse or molestation. Normal [facility] Comment on above: Performed By: #### H EMGB #### [place] [place], [place] Comp Metabolic Panelon 01-01 ALP [Catalytic activity/Vol] 62 U/L Normal 38-126 [facility] Comment on above: Performed By: #### C MP3, HEMOG, MG3 #### [place] [address] [place], [place] ALT [Catalytic activity/Vol] 20 U/L Normal 0-34 [facility] Comment on above: Result Comment: The ALT test is performed by an updated assay method. Please note that the reference intervals have been changed and are now sex specific. Performed By: #### C MP3, HEMOG, MG3 #### [place] [place], [place] Anion gap [Moles/Vol] 8 mmol/L Normal 3-13 [facility] Comment on above: Performed By: #### C MP3, HEMOG, MG3 #### [place] [address] [address] [place], [place] AST [Catalytic activity/Vol] 34 U/L Normal 15-46 [facility] Comment on above: Performed By: #### C MP3, HEMOG, MG3 #### [place] [address] [address] [place], [place] Bilirubin [Mass/Vol] 0.4 mg/dL Normal 0.2-1.3 [facility] Comment on above: Performed By: #### C MP3, HEMOG, MG3 #### [place] [address] [address] [place], [place] Calcium [Mass/Vol] 8.2 mg/dL Low 8.4-10.4 [facility] Comment on above: Performed By: #### C MP3, HEMOG, MG3 #### [place] [address] [place], [place] CO2 [Moles/Vol] 21 mmol/L Low 22-30 [facility] Comment on above: Performed By: #### C VALERIE3ALFREDA MG3 #### [address] Creatinine [Mass/Vol] 0.59 mg/dL Normal 0.52-1.25 [facility] Comment on above: Performed By: #### C VALERIE3ALFREDA MG3 #### [place] [address] [place], [place] eGFR OTHER > 90.0 Normal >60 [facility] Comment on above: Result Comment: KDIG O guidelines provide the following GFR categories: Stage GFR(ml/min/1.73 m2) Terms G1 >=90 Normal or high G2 60-89 Mildly decreased* G3a 45-59 Mildly to moderately decreased G3b 30-44 Moderately to severely decreased G4 15-29 Severely decreased G5 <15 Kidney failure *Relative to young adult level. In the absence of evidence of kidney damage, neither GFR category G1 nor G2 fulfill the criteria for CKD. The CKD-EPI equation is validated in individuals 18 years of age and older. Currently the best equation for estimating glomerular filtration rate (GFR) from serum creatinine in children is the Bedside Newman equation. It is less accurate in patients with extremes of muscle mass, restriction of dietary protein, ingestion of creatine, extra-renal metabolism of creatinine, or treatment with medications that affect renal tubular creatinine secretion. Performed By: #### C ALFREDA MUSA MG3 #### [place] [place], [place] GFR/1.73 sq M.predicted among blacks MDRD (S/P/Bld) [Vol rate/Area] mL/min/{1.73_m2} Normal >60 [facility] Comment on above: Performed By: #### C VALERIE3ALFREDA MG3 #### [address] Glucose [Mass/Vol] 123 mg/dL High 70-100 [facility] Comment on above: Performed By: #### C VALERIE3ALFREDA MG3 #### [address] [place] [address] Protein [Mass/Vol] 6.9 g/dL Normal 6.3-8.2 [facility] Comment on above: Performed By: #### C MP3, HEMOG, MG3 #### [facility] [address] [place] [address] Urea nitrogen [Mass/Vol] 7 mg/dL Low 9-20 [facility] Comment on above: Performed By: #### C MP3, HEMOG, MG3 #### [address] [place] [address] Albumin [Mass/Vol] 3.8 g/dL Normal 3.5-5.0 [facility] Comment on above: Performed By: #### C MP3, HEMOG, MG3 #### [address] [place] [address] Potassium [Moles/Vol] 4.0 mmol/L Normal 3.5-5.1 [facility] Comment on above: Performed By: #### C MP3, HEMOG, MG3 #### [address] [place] [address] Sodium [Moles/Vol] 139 mmol/L Normal 135-145 [facility] Comment on above: Performed By: #### C MP3, HEMOG, MG3 #### [address] [place] [place] [address] Chloride [Moles/Vol] 110 mmol/L High 98-107 [facility] Comment on above: Performed By: #### C MP3, HEMOG, MG3 #### [address] [place] [address] Comprehensive Metabolic Pane bladimir 01-01-2021 Albumin [Mass/Vol] 3.8 g/dL 3.5 - 5.0 g/dL [facility] ALP (Bld) [Catalytic activity/Vol] 62 U/L 38 - 126 U/L [facility] ALT [Catalytic activity/Vol] 20 U/L 0 - 34 U/L [facility] Comment on above: The ALT test is perf ormed by an updated assay method. Please note that the reference intervals have been changed and are now sex specific. Anion gap [Moles/Vol] 8 mmol/L 3 - 13 mmol/L [facility] AST [Catalytic activity/Vol] 34 U/L 15 - 46 U/L [facility] Bilirubin [Mass/Vol] 0.4 mg/dL 0.2 - 1 .3 mg/dL [facility] Calcium [Mass/Vol] 8.2 mg/dL Low 8.4 - 10. 4 mg/dL [facility] Chloride [Moles/Vol] 110 mmol/L High 98 - 10 7 mmol/L [facility] CO2 [Moles/Vol] 21 mmol/L Low 22 - 30 mmol/L [facility] Creatinine [Mass/Vol] 0.59 mg/dL 0.52 - 1.25 mg/dL [facility] EGFR IF NonAfrican Cymro >90.0 >60 mL/min [facility] Comment on above: KDIGO guidelines pro vide the following GFR categories: Stage GFR(ml/min/1.73 m2) Terms G1 >=90 Normal or high G2 60-89 Mildly decreased* G3a 45-59 Mildly to moderately decreased G3b 30-44 Moderately to severely decreased G4 15-29 Severely decreased G5 <15 Kidney failure *Relative to young adult level. In the absence of evidence of kidney damage, neither GFR category G1 nor G2 fulfill the criteria for CKD. The CKD-EPI equation is validated in individuals 18 years of age and older. Currently the best equation for estimating glomerular filtration rate (GFR) from serum creatinine in children is the Bedside Newman equation. It is less accurate in patients with extremes of muscle mass, restriction of dietary protein, ingestion of creatine, extra-renal metabolism of creatinine, or treatment with medications that affect renal tubular creatinine secretion. Free PSA/Total PSA [Mass fraction] 6.9 g/dL 6.3 - 8.2 g/dL [facility] GFR/1.73 sq M.predicted among blacks MDRD (S/P/Bld) [Vol rate/Area] mL/min/{1.73_m2} >60 mL/min [facility] Glucose [Mass/Vol] 123 mg/dL High 70 - 100 mg/dL [facility] Potassium [Moles/Vol] 4.0 mmol/L 3.5 - 5.1 mmol/L [facility] Sodium [Moles/Vol] 139 mmol/L 135 - 145 mmol/L [facility] Urea nitrogen (BldV) [Mass/Vol] 7 mg/dL Low 9 - 20 mg/dL [facility] Glucose,Bedsideon 01-01-2021 Glucose [Mass/Vol] 110 mg/dL High 70-100 [facility] Comment on above: Result Comment: Test performed by glucose meter. Results may be 10%-15% lower than serum/plasma values. (CLIA ID [id number]) Performed By: #### B GLU #### [address] [address] [place], [place] Hemogramon 01-01-2021 Erythrocyte distribution width (RBC) [Ratio] 12.8 % Normal 11.5-14.5 [facility] Comment on above: Performed By: #### C MP3, HEMOG, MG3 #### [address] [address] [place], [place] Hematocrit (Bld) [Volume fraction] 34.9 % Low 35.0-47.0 [facility] Comment on above: Performed By: #### C MP3, HEMOG, MG3 #### [address] [place], [place] Hemoglobin (Bld) [Mass/Vol] 11.3 g/dL Low 11.7-16.0 [facility] Comment on above: Performed By: #### C MP3, HEMOG, MG3 #### [address] MCH (RBC) [Entitic mass] 30.1 pg Normal 26.0-34.0 [facility] Comment on above: Performed By: #### C MP3, HEMOG, MG3 #### [address] [place] [address] [place], [place] MCHC 32.3 % Normal 32.0-36.0 [facility] Comment on above: Performed By: #### C MP3, HEMOG, MG3 #### [address] MCV (RBC) [Entitic vol] 93.2 fL Normal 79.0-98.0 [facility] Comment on above: Performed By: #### C MP3, HEMOG, MG3 #### [facility] [address] [place], [place] Platelet mean volume (Bld) [Entitic vol] 8.4 fL Normal 7.4-10.4 [facility] Comment on above: Performed By: #### C MP3, HEMOG, MG3 #### [facility] [address] [place], [place] Platelets (Bld) [#/Vol] 214 10*3/uL Normal 140-440 [facility] Comment on above: Performed By: #### C MP3, HEMOG, MG3 #### [facility] [address] [place], [place] RBC (Bld) [#/Vol] 3.75 10*6/uL Low 3.80-5.20 [facility] Comment on above: Performed By: #### C MP3, HEMOG, MG3 #### [facility] [address] [place], [place] WBC (Bld) [#/Vol] 11.4 10*3/uL High 3.6-10.7 [facility] Comment on above: Performed By: #### C MP3, HEMOG, MG3 #### [facility] [address] [place], [place] [facility] US Complete w/ detailon 01-01-2021 [facility] US Complete w/detail Patient Name: KENDALL VASQUES Maternal Medicine ACCESSION EXAM DATE/TIME PROCEDURE ORDERING PROVIDER [id number] 01/01/2021 10:17 EST [facility] [place] [id number] -[place], Complete w/detail ISSAC Reason For Exam ([facility] US Complete w/detail) PPROM Report OBSTETRICS REPORT (Signed Final 01/01/2021 10:51 am) Patient Info ID #: [id number] : [id number] (35 yrs) Name: KENDALL VASQUES Visit Date: 01/01/2021 09:54 am Performed By Attending: Colleen Salvador MD Location: Inpatient- Hospital Performed By: Adrien Nation Visit Type: Inpatient - Hospital Referred By: ISSAC DONOVAN Service(s) Provided Level II complete (Targeted OB) 37471 Indications PPROM Evaluation Num Of Fetuses: 1 Heart Rate(bpm): 136 Cardiac Activity: Regular rhythm Lie: Longitudinal Presentation: Breech Placenta: Posterior Amniotic Fluid VALARIE FV: No measurable fluid Biometry -------- BPD: 52.8 mm G. Age: 22w 0d 5 % CI: 70.5 % 70 - 86 OFD: 74.9 mm FL/HC: 19.0 % 18.7 - 20.9 HC: 205.3 mm G. Age: 22w 4d 8 % HC/AC: 1.20 1.05 - 1.21 AC: 171.2 mm G. Age: 22w 1d 7 % FL/BPD: 74.1 % 71 - 87 FL: 39.1 mm G. Age: 22w 4d 12 % FL/AC: 22.8 % 20 - 24 CER: 26.7 mm G. Age: 24w 0d 80 % LV: 5.43 mm Est. FW: 494 gm 1 lb 1 oz 26 % Gestational Age Maternal Medicine Report Clinical JONATHON: 23w 4d JONATHON: 04/26/21 U/S Today: 22w 2d JONATHON: 05/05/21 Best: 23w 4d Det. By: Clinical JONATHON JONATHON: 04/26/21 Targeted Anatomy Central Nervous System Calvarium/Cranial V.: Normal appearance Choroid Plexus: Normal appearance Intracranial Giovanny: Normal appearance Cereb./Vermis: Normal appearance Cavum: Normal appearance Cisterna Magna: Normal appearance Parenchyma: Normal appearance Corpus Callosum: Normal appearance Lateral Ventricles: Normal appearance Midline Falx: Normal appearance Spine Cervical: Suboptimal views Sacral: Suboptimal views Thoracic: Suboptimal views Shape/Curvature: Suboptimal views Lumbar: Suboptimal views Head/Neck Face: Suboptimal views Profile: Suboptimal views Lips: Suboptimal views Orbits/Eyes: Normal appearance Nuchal Fold: Suboptimal views Mandible: Suboptimal views Nasal Bone: Suboptimal views Maxilla: Normal appearance Palate: Suboptimal views Thorax Thoracic Contour: Normal appearance Ductal Arch: Suboptimal views Lungs: Normal appearance SVC: Suboptimal Views 4 Chamber View: Normal appearance Interventr. Septum: Normal appearance Cardiac Activity: Normal Cardiac [place]: Normal appearance Cardiac Rhythm: Normal Diaphragm: Normal appearance Cardiac Situs: Normal appearance 3 Vessel View: Normal appearance Rt Outflow Tract: Normal appearance 3 V Trachea View: Suboptimal views Lt Outflow Tract: Normal appearance IVC: Suboptimal Aortic Arch: Suboptimal views Crossing: Normal appearance Abdomen Ventral Wall: Normal appearance Lt Kidney: Normal appearance Cord Insertion: Suboptimal views Rt Kidney: Normal appearance Situs: Normal appearance Bladder: Normal appearance Stomach: Normal appearance Extremities Lt Humerus: Suboptimal views Lt Femur: Normal appearance Rt Humerus: Suboptimal views Rt Femur: Normal appearance Lt Forearm: Suboptimal views Lt Lower Leg: Suboptimal views Rt Forearm: Suboptimal views Rt Lower Leg: Suboptimal views Lt Hand: Suboptimal views Lt Foot: Suboptimal views Rt Hand: Suboptimal views Rt Foot: Suboptimal views Other Umbilical Cord: Normal 3-vessel Genitalia: Suboptimal views Doppler - Vessels Umbilical Artery S/D %tile RI %tile PSV (cm/s) 2.99 23 0.66 23 44.09 Impression Maternal Medicine Report 1. Rossi intrauterine with positive cardiac activity. 2. The fetus is in a breech presentation. 3. Mean EFW is at the 26th percentile with an abdominal circumference at the 7th percentile. As the abdominal circumference is below the 10th percentile - findings are consistent with the definition for suspected growth restriction. an element of technical artifact cannot be excluded. 4. Amniotic fluid volume markedly decreased with no measurable pocket of amniotic fluid identifiable. 5. Umbilical artery Doppler within normal range for gestational age. Recommendations: 1. Consider follow-up sonogram for growth assessment in approximately 2 weeks. 2. Consider weekly VALARIE and Doppler assessment - or more frequent as clinically indicated. 3. Further assessment deferred to inpatient service. Ultrasound is not diagnostic of chromosomal aneuploidy and does not detect all subtle defects. Normal ultrasound findings do not guarantee normal outcomes. Colleen Salvador MD Electronically Signed Final Report 01/01/2021 10:51 am Final Dictated (more content not included)... Normal [facility] Magnesiumon 01-01-2021 Magnesium [Mass/Vol] 3.3 mg/dL High 1.6-2.3 [facility] Comment on above: Performed By: #### C MP3, HEMOG, MG3 #### [address] [address] Magnesium [Mass/Vol] 3.3 mg/dL High 1.6 - 2 .3 mg/dL [facility] No Panel Informationon 01-01 Test Performed by [facility], [address] [place] [address] LAB [facility] Interpretation and review of laboratory results Abnormal [facility] Test Performed by [facility], [address] [place] [address] [facility] POCT GlucoseOrdered By: Leora Ferreira on 01-01-2021 Glucose [Mass/Vol] 110 mg/dL High 70 - 100 mg/dL [facility] Work Phone: Comment on above: Test performed by gl ucose meter. Results may be 10%-15% lower than serum/plasma values. (CLIA ID [id number]) Interpretation and review of laboratory results Abnormal [facility] Work Phone: [facility] Work Phone: POCT Glucoseon 01-01-2021 Test Performed by [facility], [address] [place] [address] LAB TS GELon 01-01-2021 TS GEL ABO Group: A Rh, Gel: POS Antibody Screen Gel: NEG Normal [facility] Comment on above: Performed By: #### T SGL #### [facility] TYPE AND SCREENon 01-01-2021 ABO Grouping A [facility] Type Positive [facility] Test Performed by [facility], [address] [place] [id number] [place] [address] LAB [facility] Trichomonas Vaginali, Molecu art 01-01-2021 Trichomonas Vaginali, Molecular NOT Detected Reference Interval: Not Detected Method: Real-time PCR. Negative results do not completely rule out infection with Trichomonas vaginalis. [facility] Trichomonas vaginalis PCRon 01-01-2021 Trichomonas vaginalis PCR Trichomonas vaginalis PCR --> Status: F NOT Detected Reference Interval: Not Detected Method: Real-time PCR. Negative results do not completely rule out infection with Trichomonas vaginalis. Reference Interval: Not Detected Method: Real-time PCR. Negative results do not completely rule out infection with Trichomonas vaginalis. Normal [facility] Comment on above: Performed By: #### H EMGB #### [employer] [facility] [address] [place] [address] US OB DETAIL ANATOMY S ESTHER OR FIRST GESTATIONon 01-01-2021 Patient Name: KENDALL SORIA Maternal Medicine ACCESSION EXAM DATE/TIME PROCEDURE ORDERING PROVIDER [id number] 01/01/2021 10:17 EST [facility] [place] [id number] [place] Complete w/detail ISSAC Reason For Exam ([facility] US Complete w/detail) PPROM Report OBSTETRICS REPORT (Signed Final 01/01/2021 10:51 am) Patient Info ID #: [id number] : [birth year] (35 yrs) Name: KENDALL VASQUES Visit Date: 01/01/2021 09:54 am Performed By Attending: Colleen Salvador MD Location: Inpatient- Hospital Performed By: Adrien Nation Visit Type: Inpatient - Hospital Referred By: ISSAC DONOVAN Service(s) Provided US Level II complete (Targeted OB) [id number] Indications PPROM Evaluation Num Of Fetuses: 1 Heart Rate(bpm): 136 Cardiac Activity: Regular rhythm Lie: Longitudinal Presentation: Breech Placenta: Posterior Amniotic Fluid VALARIE FV: No measurable fluid Biometry -------- BPD: 52.8 mm G. Age: 22w 0d 5 % CI: 70.5 % 70 - 86 OFD: 74.9 mm FL/HC: 19.0 % 18.7 - 20.9 HC: 205.3 mm G. Age: 22w 4d 8 % HC/AC: 1.20 1.05 - 1.21 AC: 171.2 mm G. Age: 22w 1d 7 % FL/BPD: 74.1 % 71 - 87 FL: 39.1 mm G. Age: 22w 4d 12 % FL/AC: 22.8 % 20 - 24 CER: 26.7 mm G. Age: 24w 0d 80 % LV: 5.43 mm Est. FW: 494 gm 1 lb 1 oz 26 % Gestational Age Maternal Medicine Report Clinical JONATHON: 23w 4d JONATHON: 04/26/21 U/S Today: w 2d JONATHON: 05/05/21 Best: 23w 4d Det. By: Clinical JONATHON JONATHON: 04/26/21 Targeted Anatomy Central Nervous System Calvarium/Cranial V.: Normal appearance Choroid Plexus: Normal appearance Intracranial Giovanny: Normal appearance Cereb./Vermis: Normal appearance Cavum: Normal appearance Cisterna Magna: Normal appearance Parenchyma: Normal appearance Corpus Callosum: Normal appearance Lateral Ventricles: Normal appearance Midline Falx: Normal appearance Spine Cervical: Suboptimal views Sacral: Suboptimal views Thoracic: Suboptimal views Shape/Curvature: Suboptimal views Lumbar: Suboptimal views Head/Neck Face: Suboptimal views Profile: Suboptimal views Lips: Suboptimal views Orbits/Eyes: Normal appearance Nuchal Fold: Suboptimal views Mandible: Suboptimal views Nasal Bone: Suboptimal views Maxilla: Normal appearance Palate: Suboptimal views Thorax Thoracic Contour: Normal appearance Ductal Arch: Suboptimal views Lungs: Normal appearance SVC: Suboptimal Views 4 Chamber View: Normal appearance Interventr. Septum: Normal appearance Cardiac Activity: Normal Cardiac [place]: Normal appearance Cardiac Rhythm: Normal Diaphragm: Normal appearance Cardiac Situs: Normal appearance 3 Vessel View: Normal appearance Rt Outflow Tract: Normal appearance 3 V Trachea View: Suboptimal views Lt Outflow Tract: Normal appearance IVC: Suboptimal Aortic Arch: Suboptimal views Crossing: Normal appearance Abdomen Ventral Wall: Normal appearance Lt Kidney: Normal appearance Cord Insertion: Suboptimal views Rt Kidney: Normal appearance Situs: Normal appearance Bladder: Normal appearance Stomach: Normal appearance Extremities Lt Humerus: Suboptimal views Lt Femur: Normal appearance Rt Humerus: Suboptimal views Rt Femur: Normal appearance Lt Forearm: Suboptimal views Lt Lower Leg: Suboptimal views Rt Forearm: (more content not included)... [facility] Result, Unknown Prov ider - 01/01/2021 Patient Name: KENDALL VASQUES Maternal Medicine ACCESSION EXAM DATE/TIME PROCEDURE ORDERING PROVIDER [id number] 01/01/2021 10:17 EST [facility] [place] [id number] -[place], Complete w/detail ISSAC Reason For Exam ([facility] US Complete w/detail) PPROM Report OBSTETRICS REPORT (Signed Final 01/01/2021 10:51 am) Patient Info ID #: [id number] : [birth year] (35 yrs) Name: KENDALL VASQUES Visit Date: 01/01/2021 09:54 am Performed By Attending: Colleen Salvador MD Location: Inpatient- Hospital Performed By: Adrien Nation Visit Type: Inpatient - Hospital Referred By: ISSAC DONOVAN Service(s) Provided US Level II complete (Targeted OB) [id number] Indications PPROM Evaluation Num Of Fetuses: 1 Heart Rate(bpm): 136 Cardiac Activity: Regular rhythm Lie: Longitudinal Presentation: Breech Placenta: Posterior Amniotic Fluid VALARIE FV: No measurable fluid Biometry -------- BPD: 52.8 mm G. Age: 22w 0d 5 % CI: 70.5 % 70 - 86 OFD: 74.9 mm FL/HC: 19.0 % 18.7 - 20.9 HC: 205.3 mm G. Age: 22w 4d 8 % HC/AC: 1.20 1.05 - 1.21 AC: 171.2 mm G. Age: 22w 1d 7 % FL/BPD: 74.1 % 71 - 87 FL: 39.1 mm G. Age: 22w 4d 12 % FL/AC: 22.8 % 20 - 24 CER: 26.7 mm G. Age: 24w 0d 80 % LV: 5.43 mm Est. FW: 494 gm 1 lb 1 oz 26 % Gestational Age Maternal Medicine Report Clinical JONATHON: 23w 4d JONATHON: 04/26/21 U/S Today: 22w 2d JONATHON: 05/05/21 Best: 23w 4d Det. By: Clinical JONATHON JONATHON: 04/26/21 Targeted Anatomy Central Nervous System Calvarium/Cranial V.: Normal appearance Choroid Plexus: Normal appearance Intracranial Giovanny: Normal appearance Cereb./Vermis: Normal appearance Cavum: Normal appearance Cisterna Magna: Normal appearance Parenchyma: Normal appearance Corpus Callosum: Normal appearance Lateral Ventricles: Normal appearance Midline Falx: Normal appearance Spine Cervical: Suboptimal views Sacral: Suboptimal views Thoracic: Suboptimal views Shape/Curvature: Suboptimal views Lumbar: Suboptimal views Head/Neck Face: Suboptimal views Profile: Suboptimal views Lips: Suboptimal views Orbits/Eyes: Normal appearance Nuchal Fold: Suboptimal views Mandible: Suboptimal views Nasal Bone: Suboptimal views Maxilla: Normal appearance Palate: Suboptimal views Thorax Thoracic Contour: Normal appearance Ductal Arch: Suboptimal views Lungs: Normal appearance SVC: Suboptimal Views 4 Chamber View: Normal appearance Interventr. Septum: Normal appearance Cardiac Activity: Normal Cardiac [place]: Normal appearance Cardiac Rhythm: Normal Diaphragm: Normal appearance Cardiac Situs: Normal appearance 3 Vessel View: Normal appearance Rt Outflow Tract: Normal appearance 3 V Trachea View: Suboptimal views Lt Outflow Tract: Normal appearance IVC: Suboptimal Aortic Arch: Suboptimal views Crossing: Normal appearance Abdomen Ventral Wall: Normal appearance Lt Kidney: Normal appearance Cord Insertion: Suboptimal views Rt Kidney: Normal appearance Situs: Normal appearance Bladder: Normal appearance Stomach: Normal appearance Extremities Lt Humerus: Suboptimal views Lt Femur: Normal appearance Rt Humerus: Suboptimal views Rt Femur: Normal appearance Lt Forearm: Suboptimal views Lt Lower Leg: Suboptimal views Rt Forearm: Suboptimal views Rt Lower Leg: Suboptimal views Lt Hand: Suboptimal views Lt Foot: Suboptimal views Rt Hand: Suboptimal views Rt Foot: Suboptimal views Other Umbilical Cord: Normal 3-vessel Genitalia: Suboptimal views Doppler - Vessels Umbilical Artery S/D %tile RI %tile PSV (cm/s) 2.99 23 0.66 23 44.09 Impression Maternal Medicine Report 1. Rossi intrauterine with positive cardiac activity. 2. The fetus is in a breech presentation. 3. Mean EFW is at the 26th percentile with an abdominal circumference at the 7th percentile. As the abdominal circumference is below the 10th percentile - findings are consistent with the definition for suspected growth restriction. an element of technical artifact cannot be excluded. 4. Amniotic fluid volume markedly decreased with no measurable pocket of amniotic fluid identifiable. 5. Umbilical artery Doppler within normal range for gestational age. Recommendations: 1. Consider follow-up sonogram for growth assessment in approximately 2 weeks. 2. Consider weekly VALARIE and Doppler assessment - or more frequent as clinically indicated. 3. Further assessment deferred to inpatient service. Ultrasound is not diagnostic of chromosomal aneuploidy and does not detect all subtle defects. Normal ultrasound findings do not guarante (more content not included)... [facility] Work Phone: Radiology Study observation (narrative) [facility] Work Phone: US OB DETAIL ANATOMY S ESTHER OR FIRST GESTATIONOrdered By: Unknown Result on 01-01-2021 [facility] CBC AND DIFFERENTIALon 12-18 Basophils (Bld) [#/Vol] 0.00 10*3/uL Normal 0.00 - 0.10 [facility] Comment on above: Performed By: #### C BCDF #### [address] [address] Basophils/100 WBC (Bld) 0.4 % Normal 0.0 - 2.0 [facility] Comment on above: Performed By: #### C BCDF #### [address] [address] Eosinophils (Bld) [#/Vol] 0.10 10*3/uL Normal 0.00 - 0.70 [facility] Comment on above: Performed By: #### C BCDF #### [address] [address] Eosinophils/100 WBC (Bld) 0.8 % Normal 0.0 - 6.0 [facility] Comment on above: Performed By: #### C BCDF #### [address] [address] Erythrocyte distribution width (RBC) [Ratio] 13.1 % Normal 11.5 - 14.5 [facility] Comment on above: Performed By: #### C BCDF #### [address] [address] Hematocrit (Bld) [Volume fraction] 36.8 % Normal 36.0 - 46.0 [facility] Comment on above: Performed By: #### C BCDF #### [address] [address] Hemoglobin (Bld) [Mass/Vol] 11.8 g/dL Low 12.0 - 16.0 [facility] Comment on above: Performed By: #### C BCDF #### [place] [id number] Lymphocytes (Bld) [#/Vol] 1.60 10*3/uL Normal 1.20 - 4.80 [facility] Comment on above: Performed By: #### C BCDF #### [address] [address] Lymphocytes/100 WBC (Bld) 15.6 % Normal 13.0 - 44.0 [facility] Comment on above: Performed By: #### C BCDF #### [address] [address] MCHC (RBC) [Mass/Vol] 31.9 g/dL Low 32.0 - 36.0 [facility] Comment on above: Performed By: #### C BCDF #### [address] [address] MCV (RBC) [Entitic vol] 94 fL Normal 80 - 100 [facility] Comment on above: Performed By: #### C BCDF #### [address] [address] Monocytes (Bld) [#/Vol] 0.50 10*3/uL Normal 0.10 - 1.00 [facility] Comment on above: Performed By: #### C BCDF #### [address] [address] Monocytes/100 WBC (Bld) 5.0 % Normal 2.0 - 10.0 [facility] Comment on above: Performed By: #### C BCDF #### [address] [address] Neutrophils (Bld) [#/Vol] 8.00 10*3/uL High 1.20 - 7.70 [facility] Comment on above: Result Comment: Perc ent differential counts (%) should be interpreted in the context of the absolute cell counts (cells/L). Performed By: #### C BCDF #### [address] [address] Neutrophils/100 WBC (Bld) 78.2 % Normal 40.0 - 80.0 [facility] Comment on above: Performed By: #### C BCDF #### [address] [address] Platelets (Bld) [#/Vol] 243 10*3/uL Normal 150 - 450 [facility] Comment on above: Performed By: #### C BCDF #### [address] [address] RBC 3.90 x10E12/L Low 4.00 - 5.20 [facility] Comment on above: Performed By: #### C BCDF #### [address] [address] WBC (Bld) [#/Vol] 10.2 10*3/uL Normal 4.4 - 11.3 [facility] Comment on above: Performed By: #### C BCDF #### [address] [address] COMPREHENSIVE PANELon 2020 Albumin [Mass/Vol] 3.6 g/dL Normal 3.4 - 5.0 [facility] Comment on above: Performed By: #### C MP ####[address] [place] [address] ALP [Catalytic activity/Vol] 41 U/L Normal 33 - 110 [facility] Comment on above: Performed By: #### C MP ####[address] [address] ALT [Catalytic activity/Vol] 14 U/L Normal 7 - 45 [facility] Comment on above: Result Comment: Carrie ents treated with Sulfasalazine may generate falsely decreased results for ALT. Performed By: #### C MP ####[place] [id number] Anion gap [Moles/Vol] 12 mmol/L Normal 10 - 20 [facility] Comment on above: Performed By: #### C MP ####[place] [address] AST [Catalytic activity/Vol] 19 U/L Normal 9 - 39 [facility] Comment on above: Performed By: #### C MP ####[place] [address] Bilirubin [Mass/Vol] 0.3 mg/dL Normal 0.0 - 1.2 [facility] Comment on above: Performed By: #### C MP ####[place] [address] Calcium [Mass/Vol] 9.0 mg/dL Normal 8.6 - 10.3 [facility] Comment on above: Performed By: #### C MP ####[place] [id number] Chloride [Moles/Vol] 107 mmol/L Normal 98 - 107 [facility] Comment on above: Performed By: #### C MP ####[address] [address] Creatinine [Mass/Vol] 0.67 mg/dL Normal 0.50 - 1.05 [facility] Comment on above: Performed By: #### C MP ####[place] [id number] GFR- AM. >60 Normal >60 [facility] Comment on above: Result Comment: CALC ULATIONS OF ESTIMATED GFR ARE PERFORMED USING THE MDRD STUDY EQUATION FOR THE IDMS-TRACEABLE CREATININE METHODS. CLIN CHEM 2007;53:766-72 Performed By: #### C MP ####[address] [address] GFR-NON AM. >60 Normal >60 [facility] Comment on above: Performed By: #### C MP ####[address] [address] Glucose [Mass/Vol] 70 mg/dL Low 74 - 99 [facility] Comment on above: Performed By: #### C MP ####[address] [address] HCO3 (Bld) [Moles/Vol] 23 mmol/L Normal 21 - 32 [facility] Comment on above: Performed By: #### C MP ####[address] [address] Potassium [Moles/Vol] 3.8 mmol/L Normal 3.5 - 5.3 [facility] Comment on above: Performed By: #### C MP ####[address] [address] Protein [Mass/Vol] 6.4 g/dL Normal 6.4 - 8.2 [facility] Comment on above: Performed By: #### C MP ####[address] [address] Sodium [Moles/Vol] 138 mmol/L Normal 136 - 145 [facility] Comment on above: Performed By: #### C MP ####[address] [address] Urea nitrogen [Mass/Vol] 9 mg/dL Normal 6 - 23 [facility] Comment on above: Performed By: #### C MP ####[address] [address] Clinical Event Note- do ppleron 12-18-2020 Clinical Event Note- doppler Clinical Event: Clinical Event Note: TopicFetal doppler Details Called to ER to obtain FHr. Pt states she had a 5 min seizure about an hour ago. Pt is G 1 P 0. 21. 4 weeks. FHR doppler 140s. regular rhythm. No decels auscultated. Uterus soft to palpation and nontender. Pt denies feeling any cramping or contractions. Pt denies pain currently. denies leaking of fluid or bleeding. No vaginal bleeding noted on perineum. Discussed findings with ED provider. ED provider is good with only a doppler. States will consult pt's primary OB Dr. Jose Daniel Myers in [place]. Discussed case with Dr. Solano also and he agreed with only the doppler and to consult Dr. Myers. Electronic Signatures: Williams Brown (RN) (Signed 18-Dec-2020 14:38) Authored: Clinical Event Note Last Updated: 18-Dec-2020 14:38 by Williams Brown (VITA) Normal [facility] MAGNESIUMon 12-18-2020 Magnesium [Mass/Vol] 2.02 mg/dL Normal 1.60 - 2.40 [facility] Comment on above: Performed By: #### M G ####[place] [address] Provider Note - ED v3on 0 Provider Note - ED v3 Provider Note: Chart Review: ED NOTES ED NOTES: HPI: Patient brought to the emergency department by squad for reported seizure at the dentist office. Patient is G1 [address] Jose Daniel Myers, OB in [place]. She states that while she was at the dentist office she began to feel lightheaded and was sat down in a chair. Staff noticed that she had a full body tonic-clonic seizure. Patient does have a known history of seizures and used to take Keppra. Patient states that her last seizure was 2018. She states that she had been following up with neurology who told her that she did not need to take her Keppra as her seizures are stress induced. She also mentioned pseudoseizure. Patient denies any recent abdominal pain vaginal bleeding or discharge. Review of systems otherwise negative. ROS: All systems are negative other than as noted in HPI. Physical Exam I have reviewed the triage vital signs. Const: Well nourished, well developed, appears stated age, no acute distress Eyes: PERRL, EOM intact, no conjunctival injection, vision grossly normal HENT: Neck supple without meningismus , Moist mucous membranes, no pharyengeal swelling or exudate CV: Regular rate and rhythm, Warm, well-perfused extremities. Chest non tender RESP: Lungs clear bilaterally, Unlabored respiratory effort GI: soft, non-tender, non-distended, no masses : MSK: No gross deformities appreciated Back: Non tender, no pain with ROM Skin: Warm, dry. 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 Sensation and motor function of extremities grossly intact. Psych: Appropriate mood and affect. I have reviewed and confirmed nurses/medics notes for patient past, social and family history. Portions of this note were dictated by speech recognition. An attempt at proof reading was made to minimize errors. Minor errors in screen making technician may be present. HISTORY OF PRESENTING ILLNESS KENDALL is a 35 year old Female and was seen by me at 18-Dec-2020 14:15 for a chief complaint of seizures (brought in by AFD from dentist office. pt states I started feeling lightheaded and got to a chair. Next thing I know I was in the ambulance 21 weeks . OB at bedside to monitor pt. staff at dentist reports seizure lasted approx 5 minutes. pt not postictal upon arrival. c/o dizziness at this time.)(1). Triage Information: Most recent Vital Sign Value Date Temp (F): 98.8 12-18-2020 14:13 Temp (C): 37.1 12-18-2020 14:13 Heart Rate (beats/min): 93 12-18-2020 14:13 Respirations (breaths/min): 20 12-18-2020 14:13 SpO2 (%): 100 12-18-2020 14:13 BP Systolic (mm Hg): 118 12-18-2020 14:13 BP Diastolic (mm Hg): 87 12-18-2020 14:13 PAST MEDICAL HISTORY ALLERGIES/INTOLERANCES: Allergy Allergen: codeine Type: Drug Reaction: Itching Allergen: Flagyl Type: Drug Reaction: Seizure Allergen: NSAIDs Type: Drug Category Reaction: Other Allergen: Tape - Adhesive, Bandaids, Paper Type: Environment Reaction: Rash Allergen: Shell Fish Type: Food Reaction: Hives/Urticaria Intolerance Allergen: Topamax Type: Drug Reaction: GI Upset HEALTH HISTORY: Medical History Name:Common migraine Code:G43.009 Name:Fibromyalgia Code:M79.7 Name:Headache Code:R51 Name:IBS (irritable bowel syndrome) Code:K58.9 Name:History of renal stone Code:Z87.442 Name:Migraines Code:G43.909 Name:Muscle spasm Code:M62.838 Name:Seizures Code:R56.9 Name:Thoracic back pain Code:M54.6 Name:Thoracic spondylosis Code:M47.814 Name:Anxiety Code:F41.9 Name:Asthma Code:J45.909 Name:Hypoglycemia Code:E16.2 OUTPATIENT MEDICATIONS: Home Medications Review Status for Reconciliation: Complete Med Status: Patient Currently Takes Medications Drug Name: Tylenol 325 mg oral capsule Instructions: 1 cap(s) orally 3 times a day, As Needed Drug Name: 1 oral capsule Instructions: null Drug Name: traZODone 100 mg oral tablet Instructions: 1 tab(s) orally once a day Drug Name: Tylenol PM Instructions: 1 tab(s) orally once a day (at bedtime) SIGNIFICANT EVENTS: Clinical Events Description:Surgical Procedure Additional Notes:1. R Rashid9-11 MBB; Description:Surgical Procedure Additional Notes:1. R Rashid9-11 MBB; Description:Surgical Procedure Additional Notes:1. R T9-11 MB RFA; Immunizations Description:Pneumonia- Pneumococcal polysaccharide vaccine Past Medical History Description:Stage II kidney disease Description:Kidney stones Description:Pseudoseizures Description:HTN Description:asthma Past Surgical History Description:right tube and ovary removed CRITICAL CARE RESULTS: Recent Lab Results: I have reviewed these laboratory results: Complete Blood Count + Differential 18-Dec-2020 14:30:00 ResultValue Whi (more content not included)... Normal [facility] Risk Screen - Adult Emergenc yon 12-18-2020 Risk Screen - Adult Emergency Preferred Language: Preferred Language: Preferred Language for Discussing Health Care (patient/designee)Swiss Advanced Directives: Advance Directive/DNRno Family Violence Adult: Abuse Screen: Are you or have you been threatened or abused physically, emotionally, or sexually by anyoneno Learning Assessment (Patient): Learning Assessment (Patient): Patient is Able to be Assessed for Learningyes Factors Influencing Readiness to Learnacuteness of illness Factors that Impact Ability to Learnnone Devices/Methods Used to Communicatenone Learning Preferencesaudio Cultural Considerationsnone Developmental Considerationsnone Yazidi Considerationsnone Learning Assessment (Other Learner): Learning Assessment (Other Learner): Other learner availableno Pressure Injury/TB/Substance: Pressure Injury: Do you have a coughno Smoking Statusnever smoker Alcohol Usedenies Drug Usedenies Admission Risk Screen: Significant IndicatorsComplete CAGE: CAGE: Is this an injured patient at a Trauma Center ([facility]): no Electronic Signatures: Swathi Denson (RN) (Signed 18-Dec-2020 14:20) Authored: Preferred Language, Advanced Directives, Family Violence Adult, Learning Assessment (Patient), Learning Assessment (Other Learner), Pressure Injury/TB/Substance, Pressure Injury, CAGE Last Updated: 18-Dec-2020 14:20 by Swathi Denson (RN) [facility] Triage - EDon 12-18-2020 Triage - ED Quick Triage: Are You yes Have You Given In The Last 6 Weeksno Are You Currently Breastfeedingno Chart Review: ARRIVAL INFORMATION Means of Arrival: stretcher Mode of Arrival: ambulance Agency Name: afd Arrival From: physician office Language: Spoken Language Preferred: Swiss CHIEF COMPLAINT KENDALL VASQUES is a Female patient with a chief complaint of seizures (brought in by AFD from dentist office. pt states I started feeling lightheaded and got to a chair. Next thing I know I was in the ambulance 21 weeks . OB at bedside to monitor pt. staff at dentist reports seizure lasted approx 5 minutes. pt not postictal upon arrival. c/o dizziness at this time.). Triage Date/Time: 18-Dec-2020 14:13 PRICE: 3 Pain Rating (0-10): 0 = None Vital Signs: Temperature: 98.8F ( 37.1C) Blood Pressure: 118/87 Mean: Heart Rate: 93 Respiratory Rate: 20 Pulse Oximetry: 100% on room air, no respiratory support. Height: 5 feet 4.00 inches. 162.5 CM Weight: 130.2 pounds. Calculated 59.1 kg. (stated) Calculated BMI (kg/m2): 22.381 Calculated BSA (m2) 1.63 [place] Coma Scale: Best Eye Response: (E4) spontaneous Best Motor Response: (M6) obeys commands Best Verbal Response: (V5) oriented Neno Score: 15 Patient has homicidal thoughts: no Last Known Well: unknown Risk Screens Suicide Risk Screen In the Past Month: Have you wished you were or wished you could go to sleep and not wake up no In the Past Month: Have you had any actual thoughts of killing yourself no In Your Lifetime: Have you ever done anything, started to do anything, or prepared to do anything to end your life no Whalen Fall Scale Screening Has the patient fallen before (or is the patient in the ED as a result of a fall) has not had a fall Does the patient have an impaired gait does not have impaired gait Is the patient cognitively impaired not cognitively impaired Interventions: Whalen Fall Interventions: LOW INTERVENTIONS: *patient oriented to surroundings and call system, * patient/family falls education completed and documented, *patients fall status communicated during bedside handoff, *whiteboard updated, *mode of toileting discussed with patient, *bed in low position with brakes locked, *call light in reach, * non-skid footwear TRAVEL HISTORY Travel History Coronavirus Screening: no exposure or symptoms Travel Exposure History: NO travel to International locations in the past 30 days PAIN Pain Scale Used: RAVI Pain Rating (0-10): 0 = None Past Medical History: Past Medical History Reviewedyes right tube and ovary removed: Past Surgical History, Active asthma: Past Medical History, Active HTN: Past Medical History, Active Pseudoseizures: Past Medical History, Active Kidney stones: Past Medical History, Active Stage II kidney disease: Past Medical History, Active Pneumonia- Pneumococcal polysaccharide vaccine: Immunizations, Active, 06-Jan-2019 Electronic Signatures: Swathi Denson (VITA) (Signed 18-Dec-2020 14:19) Entered: Risk Screens, Pain, Arrival, Travel History, Chart Review, Scores, Past Medical History Authored: Quick Triage, Risk Screens, Pain, Arrival, Travel History, Chart Review, Scores, Past Medical History Last Updated: 18-Dec-2020 14:19 by Swathi Denson (VITA) Normal [facility] URIC ACIDon 12-18-2020 Urate [Mass/Vol] 2.5 mg/dL Normal 2.3 - 6.7 [facility] Comment on above: Result Comment: Dona puncture immediately after or during the administration of Metamizole may lead to falsely low results. Testing should be performed immediately prior to Metamizole dosing. V-jevozi-n-benzoquinone imine (metabolite of Acetaminophen) will generate erroneously low results in samples for patients that have taken toxic doses of acetaminophen. Performed By: #### U WILL ####[address] [address] URINALYSISon 12-18-2020 Appearance (U) CLEAR Normal CLEAR [facility] Comment on above: Performed By: #### U A #### [address] [address] Bilirubin Ql (U) Negative Normal NEGATIVE [facility] Comment on above: Performed By: #### U A #### [address] [address] Color (U) Straw Normal STRAW,YELL OW [facility] Comment on above: Performed By: #### U A #### [address] [address] Glucose Ql (U) Negative Normal NEGATIVE [facility] Comment on above: Performed By: #### U A #### [address] [address] Hemoglobin Ql (U) Negative Normal NEGATIVE [facility] Comment on above: Performed By: #### U A #### [address] [address] Ketones Ql (U) Negative Normal NEGATIVE [facility] Comment on above: Performed By: #### U A #### [address] [address] Leukocyte esterase Test strip Ql (U) Negative Normal NEGATIVE [facility] Comment on above: Performed By: #### U A #### [address] [address] Nitrite Ql (U) Negative Normal NEGATIVE [facility] Comment on above: Performed By: #### U A #### [address] [address] pH (U) 7.0 [pH] Normal 5.0 - 8.0 [facility] Comment on above: Performed By: #### U A #### [place] [address] Protein Ql (U) Negative Normal NEGATIVE [facility] Comment on above: Performed By: #### U A #### [place] [address] Specific gravity (U) [Rel density] 1.004 Low 1.005 - 1.035 [facility] Comment on above: Performed By: #### U A #### [place] [id number] Urobilinogen (U) [Mass/Vol] mg/dL Normal 0.0 - 1.9 [facility] Comment on above: Performed By: #### U A #### [place] [address] CORONAVIRUS 2019 BY PCRon SARS-CoV-2 (COVID-19) RNA DAYAMI+probe Ql (Unsp spec) Not detected Normal Not Detected [facility] Comment on above: Result Comment: . This test has received FDA Emergency Use Authorization (EUA) and has been verified by [facility]. This test is only authorized for the duration of time that circumstances exist to justify the authorization of the emergency use of in vitro diagnostic tests for the detection of SARS-CoV-2 virus and/or diagnosis of COVID-19 infection under section 564(b)(1) of the Act, 21 U.S.C. 360bbb-3(b)(1), unless the authorization is terminated or revoked sooner. [facility] is certified under CLIA-88 as qualified to perform high complexity testing. Testing is performed in the [facility] laboratory located at [address] [place] [address]. SARS-CoV-2/Flu/RSV Multiplex Test: Fact sheet for providers: https://www.fda.gov/media/315134/download Fact sheet for patients: https://www.fda.gov/media/572700/download Performed By: #### C OV19 #### [place] [address] Lab Specimen Source Nasal, Nasopharyngeal Normal [facility] Comment on above: Performed By: #### C OV19 #### [facility] [address] [place] [address] Covid 19 Resultson 1 SARS-CoV-2 (COVID-19) RNA DAYAMI+probe Ql (Unsp spec) NEGATIVE COVID-19 Test Coronaviruses are common world-wide and are the cause of many common colds. SARS-COV2 is a new coronavirus that began circulating worldwide in 2019 so we are calling it COVID-19. It has been estimated that four out of five patients with COVID-19 will recover at home without the need for medical attention. Symptoms of COVID-19 may include cough, fever, shortness of breath, loss of taste or smell and other flu-like symptoms including chills, sore muscles, sore throat, and headache. Severe illness is more common in older people and people with other health problems such as high blood pressure, obesity, and immune system problems. If the test is positive, you have COVID-19. You will be contacted by the ordering physicians office and instructed to remain on home isolation, in accordance with CDC guidelines. You may also be contacted by the [facility] to see if any of your close contacts may have been exposed to the virus and need to quarantine. If the test is negative, you likely do not have COVID-19 at this time, but you still may have a different illness that can spread to other people (like Influenza, or the Flu) and could still be at risk for getting COVID-19. We recommend that you stay away from other people to limit the spread of illness until your symptoms are improving and you are fever-free for 24 hours without the use of fever lowering medications such as acetaminophen or ibuprofen. No test is 100% accurate so if you are still concerned you may have COVID-19, talk to your doctor about the need to continue to stay away from others. Medicines Unless your provider told you not to use the following: Acetaminophen (Tylenol and others) is generally safe. Anti-inflammatory medications, such as Ibuprofen (Advil or Motrin) or Naproxen (Aleve) can also be used. Msqc-jlc-yryynvc cough and cold medicines can be used according to the instructions on the package. Some gwgo-wwy-ksrdeyp medicines also contain acetaminophen. Make sure you are not taking more than your recommended dose. For those not hospitalized, there is no specific treatment available for this illness. Antibiotics do not treat Coronaviruses. Follow-Up Follow up with your doctor by scheduling a virtual visit or consider follow-up at one of our urgent care fever clinics. If you are having difficulty breathing, or are very weak and having difficulty standing, this is a medical emergency. Call 911 or have someone take you to the nearest emergency room immediately. If possible, wear a facemask. Additional guidance from the CDC for patients who tested POSITIVE for COVID-19 How to isolate: Isolate yourself in a specific room at home and limit your contact with others. Use a separate bathroom from other members of the household, when possible. Leave home only to get essential medical care. Do not go to work, school or public areas. Avoid using public transportation, ride-sharing, or taxis. Restrict contact with pets and other animals. If you must care for your pet or be around animals while you are sick, wash your hands before and after your interaction and wear a facemask. Make sure that shared spaces in the home have good airflow, such as by an air conditioner or an opened window, weather permitting. Personal Hygiene Procedures: Wear a face mask when in the same room as other people or pets. If a face mask interferes with your breathing, others should wear a mask when sharing space with you. Frequent hand-washing: wash your hands with soap and water for at least 20 seconds. If soap and water are not available, use alcohol-based hand housing court judge. Avoid touching your eyes, nose, and mouth with unwashed hands. Household Hygiene Procedures: Avoid sharing personal household items such as dishes, glassware, cups, eating utensils, towels or bedding with other people or pets in your home. After use, these items should be washed with soap and hot water. Disinfect all high-touch surfaces every day with antibacterial cleaning solutions such as Lysol wipes, bleach, cleansers, etc. High-touch surfaces include tabletops, doorknobs, bathroom fixtures, toilets, phones, keyboards, tablets and bedside tables. Immediately clean any surfaces that may have blood, poop or body fluids on them, using antibacterial cleaning solutions such as Lysol wipes, bleach, cleansers, etc. If clothing or bedding come into contact with blood, poop or body fluids, they should be washed immediately. Follow the directions on the laundry detergent and clothing labels but hot water is recommended when possible. Stopping home isolation precautions: If possible, consult your doctor before stopping home isolation precautions. According to the CDC, you can discontinue home isolation precautions when you have met both of these criteria: Your fever and respiratory symptoms have been gone for 24 rebeca (more content not included)... Normal [facility] Provider Note - ED v2on 09-16 Provider Note - ED v2 Provider Note - ED v2: Chart Review: ED NOTES ED NOTES: HPI: Patient states for the last days she has had sore throat runny nose headache congestion cough and feeling short of breath. She is 10 weeks G1. Denies any abdominal pain vaginal bleeding or discharge. ROS: All systems are negative other than as noted in HPI. Physical Exam I have reviewed the triage vital signs. Const: Well nourished, well developed, appears stated age, no acute distress Eyes: PERRL, EOM intact, no conjunctival injection, vision grossly normal HENT: Neck supple without meningismus , Moist mucous membranes, no pharyengeal swelling or exudate CV: Regular rate and rhythm, Warm, well-perfused extremities. Chest non tender RESP: Lungs clear bilaterally, Unlabored respiratory effort GI: soft, non-tender, non-distended, no masses : MSK: No gross deformities appreciated Back: Non tender, no pain with ROM Skin: Warm, dry. 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 Sensation and motor function of extremities grossly intact. Psych: Appropriate mood and affect. I have reviewed and confirmed nurses/medics notes for patient past, social and family history. Portions of this note were dictated by speech recognition. An attempt at proof reading was made to minimize errors. Minor errors in screen making technician may be present. HISTORY OF PRESENTING ILLNESS KENDALL is a 34 year old Female and was seen by me at 27-Sep-2020 12:42 for a chief complaint of shortness of breath (Patient to ED with c/o SOB, cough, fatigue, sore throat and nausea x1 day. Patient 10 weeks .)(1). Triage Information: Most recent Vital Sign Value Date Temp (F): 99.5 09-27-2020 12:44 Temp (C): 37.5 09-27-2020 12:44 Heart Rate (beats/min): 104 09-27-2020 12:44 Respirations (breaths/min): 18 09-27-2020 12:44 SpO2 (%): 100 09-27-2020 12:44 BP Systolic (mm Hg): 123 09-27-2020 12:44 BP Diastolic (mm Hg): 81 09-27-2020 12:44 PAST MEDICAL HISTORY ATTESTATION: I have reviewed and confirmed nurse's/medic's notes for patient's medications, allergies, and medical, surgical, family and social history ALLERGIES/INTOLERANCES: Allergy Allergen: codeine Type: Drug Reaction: Itching Allergen: Flagyl Type: Drug Reaction: Seizure Allergen: NSAIDs Type: Drug Category Reaction: Other Allergen: Tape - Adhesive, Bandaids, Paper Type: Environment Reaction: Rash Allergen: Shell Fish Type: Food Reaction: Hives/Urticaria Intolerance Allergen: Topamax Type: Drug Reaction: GI Upset HEALTH HISTORY: Medical History Name:Common migraine Code:G43.009 Name:Fibromyalgia Code:M79.7 Name:Headache Code:R51 Name:IBS (irritable bowel syndrome) Code:K58.9 Name:History of renal stone Code:Z87.442 Name:Migraines Code:G43.909 Name:Muscle spasm Code:M62.838 Name:Seizures Code:R56.9 Name:Thoracic back pain Code:M54.6 Name:Thoracic spondylosis Code:M47.814 Name:Anxiety Code:F41.9 Name:Asthma Code:J45.909 Name:Hypoglycemia Code:E16.2 OUTPATIENT MEDICATIONS: Home Medications Review Status for Reconciliation: N/A Med Status: Patient Currently Takes Medications Drug Name: spironolactone 25 mg oral tablet Instructions: 1 tab(s) orally once a day Drug Name: gabapentin 800 mg oral tablet Instructions: 1 tab(s) orally 3 times a day Drug Name: tiZANidine 4 mg oral tablet Instructions: 1 tab(s) orally once a day (at bedtime), As Needed - for spasms//muscle pain Drug Name: baclofen 10 mg oral tablet Instructions: 1 tab(s) orally once a day (in the morning), As Needed muscle pain Drug Name: Zofran ODT 4 mg oral tablet, disintegrating Instructions: 1 tab(s) orally every 4 hours, As Needed Drug Name: promethazine 25 mg oral tablet Instructions: 1 tab(s) orally every 6 hours, As Needed Drug Name: ketorolac 10 mg oral tablet Instructions: 1 tab(s) orally every 4 hours, As Needed - for pain Drug Name: Ventolin HFA 90 mcg/inh inhalation aerosol Instructions: 1 puff(s) inhaled every 4 hours, As Needed Drug Name: ipratropium-albuterol 0.5 mg-2.5 mg/3 mLinhalation solution Instructions: 3 milliliter(s) inhaled every 6 hours Drug Name: traZODone 150 mg oral tablet Instructions: 1 tab(s) orally once a day Drug Name: Microgestin FE 1/20 oral tablet Instructions: 1 tab(s) orally once a day Drug Name: Tylenol 325 mg oral capsule Instructions: 1 cap(s) orally 3 times a day, As Needed Drug Name: ALPRAZolam 0.5 mg oral tablet Instructions: 1 tab(s) orally 2 times a day, As Needed Drug Name: 1 oral capsule Instructions: null SIGNIFICANT EVENTS: Clinical Events Description:Surgical Procedure Additional Notes:1. Juliana T9-11 PAZ; Description:Surgical Procedure Additional Notes:1. R T9-11 MBSylvester; Description:Surgical Procedure Additional Notes:1. R T9 (more content not included)... Normal [facility] Triage - EDon 09-27-2020 Triage - ED Quick Triage: Are You yes Are You Currently Breastfeedingno Chart Review: ARRIVAL INFORMATION Mode of Arrival: private vehicle CHIEF COMPLAINT KENDALL VASQUES is a Female patient with a chief complaint of shortness of breath (Patient to ED with c/o SOB, cough, fatigue, sore throat and nausea x1 day. Patient 10 weeks .). Triage Date/Time: 27-Sep-2020 12:44 PRICE: 2 Pain Rating (0-10): 0 = None Vital Signs: Temperature: 99.5F ( 37.5C) taken oral Blood Pressure: 123/81 Mean: Heart Rate: 104 Respiratory Rate: 18 Pulse Oximetry: 100% on room air, no respiratory support. Height: 5 feet 4 inches. 162.5 CM Weight: 122.3 pounds. Calculated 55.5 kg. 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 Symptoms Are Negative For: body aches, chest pain, chills, congestion, diaphoresis, fever and headache. Risk Screens Suicide Risk Screen In the Past Month: Have you wished you were or wished you could go to sleep and not wake up no In the Past Month: Have you had any actual thoughts of killing yourself no In Your Lifetime: Have you ever done anything, started to do anything, or prepared to do anything to end your life no Whalen Fall Scale Screening Has the patient fallen before (or is the patient in the ED as a result of a fall) has not had a fall Does the patient have an impaired gait does not have impaired gait Is the patient cognitively impaired not cognitively impaired Interventions: Whalen Fall Interventions: LOW INTERVENTIONS: *patient oriented to surroundings and call system, * patient/family falls education completed and documented, *patients fall status communicated during bedside handoff, *whiteboard updated, *mode of toileting discussed with patient, *bed in low position with brakes locked, *call light in reach, * non-skid footwear TRAVEL HISTORY Travel History Coronavirus Screening: positive for symptoms Coronavirus Screening Details: Patient has not been vaccinated Travel Exposure History: NO travel to International locations in the past 30 days PAIN Pain Scale Used: RAVI Pain Rating (0-10): 0 = None Past Medical History: Past Medical History Reviewedyes Electronic Signatures: Angie Burks (VITA) (Signed 27-Sep-2020 12:47) Entered: Risk Screens, Pain, Travel History, Chart Review, Scores, Past Medical History Authored: Quick Triage, Risk Screens, Pain, Travel History, Chart Review, Scores, Past Medical History Last Updated: 27-Sep-2020 12:47 by Angie Burks (VITA) [facility], External Resulton 09-07 ABO, External Result A [facility] Work Phone: C. Trachomatis, External Res ulton 09-07-2020 C. Trachomatis, External Result Negative [facility] Work Phone: HIV, External Resulton 09-07 HIV, External Result Non-Reactive [facility] Work Phone: Hepatitis B, External Result on 09-07-2020 Hep B, External Result Non-Reactive [facility] Work Phone: Hepatitis C Antibody, Fish Tender al ResultOrdered By: Stacy Bowersox on 09-07-2020 Hepatitis C Antibody, External Result Non-Reactive [facility] N. Gonorrhoeae, External Res ulton 09-07-2020 N. Gonorrhoeae, External Result Negative [facility] Work Phone: No Panel InformationOrdered By: Stacy Bowersox on 09-07-2020 [facility] No Panel Informationon 09-07 [facility] Work Phone: RPR, External Labon 09-08-19 21 RPR, External Result Non-Reactive [facility] Work Phone: Rh Factor, External Resulton 09-07-2020 Rh Factor, External Result Positive [facility] Work Phone: Rubella Titer, External Resu lton 09-07-2020 Rubella Titer, External Result IMMUNE [facility] Work Phone: ANAOrdered By: Tl Bautista on 07-18-2020 Interpretation and review of laboratory results Normal [facility] Nuclear Ab Hep2 substrate (S) [Titer] <1:80 <1:80 [facility] Test performed using [employer] 3000 by IFA [facility] Bacteria identified Cx Nom ( Bld)Ordered By: Henry Huntley on 07-18-2020 [facility] Laboratory - Microbiology an d Antimicrobial susceptibilityOrdered By: Henry Huntley on 07-18-2020 Bacteria identified Cx Nom (Bld) No Growth After 5 Days [facility] h Basic metabolic 2000 panelOr dered By: Saleem Hansen on 07-17-2020 Anion gap [Moles/Vol] 9 mmol/L Low 10 - 2 0 mmol/L [facility] Calcium [Mass/Vol] 8.4 mg/dL 8.4 - 10. 2 mg/dL [facility] Chloride [Moles/Vol] 109 mmol/L High 98 - 10 8 mmol/L [facility] Creatinine [Mass/Vol] 0.74 mg/dL 0.40 - 1.10 [facility] GFR/1.73 sq M.predicted CKD-EPI (S/P/Bld) [Vol rate/Area] 107 >=60 mL/min/1.7 3 m2 [facility] Glucose [Mass/Vol] 81 mg/dL 65 - 99 mg/dL [facility] HCO3 [Moles/Vol] 27 mmol/L 21 - 32 mmol/L [facility] Interpretation and review of laboratory results Abnormal [facility] Potassium [Moles/Vol] 3.3 mmol/L Low 3.5 - 5.1 mmol/L [facility] Sodium [Moles/Vol] 142 mmol/L 135 - 145 mmol/L [facility] Urea nitrogen [Mass/Vol] 6 mg/dL Low 8 - 25 mg/dL [facility] Urea nitrogen/Creatinine [Mass ratio] 8.1 mg/mg Low [facility] The eGFR should be u sed for monitoring renal function only and not for medication dosing. [facility] CBC WITH AUTO DIFFERENTIALOr dered By: Saleem Hansen on 07-17-2020 Basophils (Bld) [#/Vol] 0.03 10*3/uL [facility] Basophils/100 WBC (Bld) 0.3 % [facility] Eosinophils (Bld) [#/Vol] 0.14 10*3/uL [facility] Eosinophils/100 WBC (Bld) 1.6 % [facility] Erythrocyte distribution width (RBC) [Entitic vol] 12.6 % 11.6 - 14.8 % [facility] Hematocrit (Bld) [Volume fraction] 37.4 % 36.0 - 46.0 % [facility] Hemoglobin (Bld) [Mass/Vol] 11.6 g/dL Low 12.0 - 16.0 g/dL [facility] Immature granulocytes (Bld) [#/Vol] 0.03 10*3/uL [facility] Immature granulocytes/100 WBC (Bld) 0.30 % [facility] Comment on above: The IG parameter is the percentage of metamyelocytes, myelocytes and promyelocytes. An immature granulocyte count (IG) of 1% or more suggests the possibility of infection, an IG count of 3% is very likely related to an infection. Interpretation and review of laboratory results Abnormal [facility] Lymphocytes (Bld) [#/Vol] 3.26 10*3/uL [facility] Lymphocytes/100 WBC (Bld) 37.7 % [facility] MCH (RBC) [Entitic mass] 29.4 pg 26.0 - 34.0 pg [facility] MCHC (RBC) [Mass/Vol] 31.0 g/dL 31.0 - 37.0 g/dL [facility] MCV (RBC) [Entitic vol] 94.7 fL 80.0 - 100.0 fL [facility] Monocytes (Bld) [#/Vol] 0.58 10*3/uL [facility] Monocytes/100 WBC (Bld) 6.7 % [facility] Neutrophils (Bld) [#/Vol] 4.60 10*3/uL [facility] Neutrophils/100 WBC (Bld) 53.4 % [facility] Nucleated RBC (Bld) [#/Vol] 0.00 10*3/uL [facility] Nucleated RBC/100 WBC (Bld) [Ratio] 0.0 % [facility] Platelet mean volume (Bld) [Entitic vol] 10.3 fL 9.4 - 12.4 fL [facility] Platelets (Bld) [#/Vol] 168 10*3/uL [facility] RBC (Bld) [#/Vol] 3.95 10*6/uL [facility] ealth WBC (Bld) [#/Vol] 8.64 10*3/uL [facility] Westergren method (Bld) [Velocity]Ordered By: Tl Bautista on 07-17-2020 ESR (Bld) [Velocity] 8 mm/h [facility] Interpretation and review of laboratory results Normal [facility] Free T4 [Mass/Vol]Ordered By : Tl Bautista on 07-17-2020 Interpretation and review of laboratory results Normal [facility] Magnesium LevelOrdered By: Fabrizio Bautista on 07-17-2020 Magnesium [Mass/Vol] 1.9 mg/dL 1.6 - 2 .4 mg/dL [facility] Magnesium [Mass/Vol]Ordered By: Tl Bautista on 07-17-2020 Interpretation and review of laboratory results Normal [facility] ProcalcitoninOrdered By: Jennie Hansen on 07-17-2020 Procalcitonin [Mass/Vol] ng/mL <0.50 ng/ml [facility] Procalcitonin [Mass/Vol] ng/mL <0.50 ng/ml [facility] Procalcitonin [Mass/Vol]Orde red By: Saleem Hansen on 07-17-2020 Interpretation and review of laboratory results Normal [facility] Results <0.50 ng/ml represent a low risk of severe sepsis and/or septic shock. [facility] Interpretation and review of laboratory results Normal [facility] Results <0.50 ng/ml represent a low risk of severe sepsis and/or septic shock. [facility] T4, FreeOrdered By: Tl nance on 07-17-2020 Free T4 [Mass/Vol] 1.5 ng/dL 0.7 - 1.7 ng/dL [facility] TSH DL <= 0.005 mIU/L QnOrde red By: Tl Bautista on 07-17-2020 Interpretation and review of laboratory results Normal [facility] TSH Qn 1.71 m[IU]/L [facility] Glucose (Bld) [Mass/Vol]Orde red By: Patricia Veag on 07-16-2020 Glucose [Mass/Vol] 82 mg/dL 65 - 99 mg/dL [facility] Interpretation and review of laboratory results Normal [facility] Basic metabolic 1998 panelOr dered By: Poornima Coe on 07-15-2020 Anion gap [Moles/Vol] 8 mmol/L Low 10 - 2 0 mmol/L [facility] Chloride [Moles/Vol] 115 mmol/L High 98 - 10 8 mmol/L [facility] Creatinine [Mass/Vol] 0.96 mg/dL 0.40 - 1.10 [facility] GFR/1.73 sq M.predicted CKD-EPI (S/P/Bld) [Vol rate/Area] 78 >=60 mL/min/1.7 3 m2 [facility] Glucose [Mass/Vol] 91 mg/dL 65 - 99 mg/dL [facility] HCO3 [Moles/Vol] 26 mmol/L 21 - 32 mmol/L [facility] Interpretation and review of laboratory results Abnormal [facility] Potassium [Moles/Vol] 4.0 mmol/L 3.5 - 5.1 mmol/L [facility] Sodium [Moles/Vol] 145 mmol/L 135 - 145 mmol/L [facility] Urea nitrogen [Mass/Vol] 9 mg/dL 8 - 25 mg/dL [facility] Urea nitrogen/Creatinine [Mass ratio] 9.4 mg/mg Low [facility] The eGFR should be u sed for monitoring renal function only and not for medication dosing. [facility] CBC WITH AUTO DIFFERENTIALOr dered By: Poornima Coe on 07-15-2020 Basophils (Bld) [#/Vol] 0.03 10*3/uL [facility] Basophils/100 WBC (Bld) 0.2 % [facility] Eosinophils (Bld) [#/Vol] 0.00 10*3/uL [facility] Eosinophils/100 WBC (Bld) 0.0 % [facility] Erythrocyte distribution width (RBC) [Entitic vol] 13.2 % 11.6 - 14.8 % [facility] Hematocrit (Bld) [Volume fraction] 38.4 % 36.0 - 46.0 % [facility] Hemoglobin (Bld) [Mass/Vol] 11.6 g/dL Low 12.0 - 16.0 g/dL [facility] Immature granulocytes (Bld) [#/Vol] 0.07 10*3/uL [facility] Immature granulocytes/100 WBC (Bld) 0.50 % [facility] Comment on above: The IG parameter is the percentage of metamyelocytes, myelocytes and promyelocytes. An immature granulocyte count (IG) of 1% or more suggests the possibility of infection, an IG count of 3% is very likely related to an infection. Interpretation and review of laboratory results Abnormal [facility] Lymphocytes (Bld) [#/Vol] 1.66 10*3/uL [facility] Lymphocytes/100 WBC (Bld) 10.7 % [facility] MCH (RBC) [Entitic mass] 29.7 pg 26.0 - 34.0 pg [facility] MCHC (RBC) [Mass/Vol] 30.2 g/dL Low 31.0 - 37.0 g/dL [facility] MCV (RBC) [Entitic vol] 98.2 fL 80.0 - 100.0 fL [facility] Monocytes (Bld) [#/Vol] 1.02 10*3/uL High [facility] Monocytes/100 WBC (Bld) 6.6 % [facility] Neutrophils (Bld) [#/Vol] 12.74 10*3/uL High [facility] Neutrophils/100 WBC (Bld) 82.0 % [facility] Nucleated RBC (Bld) [#/Vol] 0.00 10*3/uL [facility] Nucleated RBC/100 WBC (Bld) [Ratio] 0.0 % [facility] Platelet mean volume (Bld) [Entitic vol] 10.3 fL 9.4 - 12.4 fL [facility] Platelets (Bld) [#/Vol] 189 10*3/uL [facility] RBC (Bld) [#/Vol] 3.91 10*6/uL [facility] WBC (Bld) [#/Vol] 15.52 10*3/uL [facility] RADIOLOGY SCANSOrdered By: Kenton Brown on 07-15-2020 Ordered by an unspec ified provider. [facility] AMYLASEOrdered By: Jayla garcia on 07-14-2020 Amylase [Catalytic activity/Vol] 59 U/L 25 - 115 U/L [facility] Interpretation and review of laboratory results Normal [facility] Basic metabolic 2000 panelOr dered By: Sobia London on 07-14-2020 Anion gap [Moles/Vol] 9 mmol/L Low 10 - 2 0 mmol/L [facility] Calcium [Mass/Vol] 8.8 mg/dL 8.4 - 10. 2 mg/dL [facility] Chloride [Moles/Vol] 111 mmol/L High 98 - 10 8 mmol/L [facility] Creatinine [Mass/Vol] 0.77 mg/dL 0.40 - 1.10 [facility] GFR/1.73 sq M.predicted CKD-EPI (S/P/Bld) [Vol rate/Area] 102 >=60 mL/min/1.7 3 m2 [facility] Glucose [Mass/Vol] 141 mg/dL High 65 - 99 mg/dL [facility] HCO3 [Moles/Vol] 23 mmol/L 21 - 32 mmol/L [facility] Interpretation and review of laboratory results Abnormal [facility] Potassium [Moles/Vol] 4.1 mmol/L 3.5 - 5.1 mmol/L [facility] Sodium [Moles/Vol] 139 mmol/L 135 - 145 mmol/L [facility] Urea nitrogen [Mass/Vol] 9 mg/dL 8 - 25 mg/dL [facility] Urea nitrogen/Creatinine [Mass ratio] 11.7 mg/mg [facility] The eGFR should be u sed for monitoring renal function only and not for medication dosing. [facility] Beta HCG ( test) Ql Ordered By: Jayla Adrian on 07-14-2020 Interpretation and review of laboratory results Normal [facility] Negative: The result is less than or equal to 5 mIU/mL of HCG. [facility] CBC WITH AUTO DIFFERENTIALOr dered By: Jayla Adrian on 07-14-2020 Basophils (Bld) [#/Vol] 0.02 10*3/uL [facility] Basophils/100 WBC (Bld) 0.1 % [facility] Eosinophils (Bld) [#/Vol] 0.00 10*3/uL [facility] Eosinophils/100 WBC (Bld) 0.0 % [facility] Erythrocyte distribution width (RBC) [Entitic vol] 13.0 % 11.6 - 14.8 % [facility] Hematocrit (Bld) [Volume fraction] 36.7 % 36.0 - 46.0 % [facility] Hemoglobin (Bld) [Mass/Vol] 11.4 g/dL Low 12.0 - 16.0 g/dL [facility] Immature granulocytes (Bld) [#/Vol] 0.06 10*3/uL [facility] Immature granulocytes/100 WBC (Bld) 0.40 % [facility] Comment on above: The IG parameter is the percentage of metamyelocytes, myelocytes and promyelocytes. An immature granulocyte count (IG) of 1% or more suggests the possibility of infection, an IG count of 3% is very likely related to an infection. Interpretation and review of laboratory results Abnormal [facility] Lymphocytes (Bld) [#/Vol] 0.70 10*3/uL Low [facility] Lymphocytes/100 WBC (Bld) 4.8 % [facility] MCH (RBC) [Entitic mass] 29.2 pg 26.0 - 34.0 pg [facility] MCHC (RBC) [Mass/Vol] 31.1 g/dL 31.0 - 37.0 g/dL [facility] MCV (RBC) [Entitic vol] 94.1 fL 80.0 - 100.0 fL [facility] Monocytes (Bld) [#/Vol] 0.63 10*3/uL [facility] Monocytes/100 WBC (Bld) 4.3 % [facility] Neutrophils (Bld) [#/Vol] 13.14 10*3/uL High [facility] Neutrophils/100 WBC (Bld) 90.4 % [facility] Nucleated RBC (Bld) [#/Vol] 0.00 10*3/uL [facility] Nucleated RBC/100 WBC (Bld) [Ratio] 0.0 % [facility] Platelet mean volume (Bld) [Entitic vol] 10.4 fL 9.4 - 12.4 fL [facility] Platelets (Bld) [#/Vol] 176 10*3/uL [facility] RBC (Bld) [#/Vol] 3.90 10*6/uL [facility] WBC (Bld) [#/Vol] 14.55 10*3/uL [facility] CBC WITH AUTO DIFFERENTIALOr dered By: Sobia London on 07-14-2020 Basophils (Bld) [#/Vol] 0.01 10*3/uL [facility] Basophils/100 WBC (Bld) 0.1 % [facility] Eosinophils (Bld) [#/Vol] 0.00 10*3/uL [facility] Eosinophils/100 WBC (Bld) 0.0 % [facility] Erythrocyte distribution width (RBC) [Entitic vol] 12.7 % 11.6 - 14.8 % [facility] Hematocrit (Bld) [Volume fraction] 36.2 % 36.0 - 46.0 % [facility] Hemoglobin (Bld) [Mass/Vol] 11.5 g/dL Low 12.0 - 16.0 g/dL [facility] Immature granulocytes (Bld) [#/Vol] 0.04 10*3/uL [facility] Immature granulocytes/100 WBC (Bld) 0.50 % [facility] Comment on above: The IG parameter is the percentage of metamyelocytes, myelocytes and promyelocytes. An immature granulocyte count (IG) of 1% or more suggests the possibility of infection, an IG count of 3% is very likely related to an infection. Interpretation and review of laboratory results Abnormal [facility] Lymphocytes (Bld) [#/Vol] 0.61 10*3/uL Low [facility] Lymphocytes/100 WBC (Bld) 7.9 % [facility] MCH (RBC) [Entitic mass] 29.9 pg 26.0 - 34.0 pg [facility] MCHC (RBC) [Mass/Vol] 31.8 g/dL 31.0 - 37.0 g/dL [facility] MCV (RBC) [Entitic vol] 94.3 fL 80.0 - 100.0 fL [facility] Monocytes (Bld) [#/Vol] 0.18 10*3/uL Low [facility] Monocytes/100 WBC (Bld) 2.3 % [facility] Neutrophils (Bld) [#/Vol] 6.84 10*3/uL [facility] Neutrophils/100 WBC (Bld) 89.2 % [facility] Nucleated RBC (Bld) [#/Vol] 0.00 10*3/uL [facility] Nucleated RBC/100 WBC (Bld) [Ratio] 0.0 % [facility] Platelet mean volume (Bld) [Entitic vol] 10.2 fL 9.4 - 12.4 fL [facility] Platelets (Bld) [#/Vol] 172 10*3/uL [facility] RBC (Bld) [#/Vol] 3.84 10*6/uL [facility] WBC (Bld) [#/Vol] 7.68 10*3/uL [facility] CO NTRASTon 07-14-2020 CT ABDOMEN PELVIS WITHOUT CONTRAST EXAMINATION: CT ABDOMEN PELVIS WITHOUT CONTRAST HISTORY: ORDERING SYSTEM PROVIDED HISTORY: Abdominal pain, acute, nonlocalized, TECHNOLOGIST PROVIDED HISTORY: Illness/Other Reason for exam: upper abdominal pains, nausea Encounter Type: Initial Additional signs and symptoms: ORDERING SYSTEM PROVIDED DIAGNOSIS CODES: R06.03 Respiratory distress R06.1 Stridor J06.9 Acute URI COMPARISON: Ultrasound kidneys retroperitoneum 06/02/2020 TECHNIQUE: CT examination of the abdomen and pelvis without IV contrast. Coronal and sagittal reformations were performed. Dose reduction techniques were achieved by using automated exposure control and/or adjustment of mA and/or kV according to patient size and/or use of iterative reconstruction technique. FINDINGS: Visualized lung bases unremarkable. Visualized cardiac apex unremarkable. Liver, spleen, pancreas, adrenal glands, kidneys are unremarkable. Biliary sludge. 3 mm right mid renal stone. No overt hydronephrosis. No evidence for small bowel obstruction, large ascites, or free air. Urinary bladder fluid-filled distended without wall thickening. Uterus and pelvic structures unremarkable. Appendix unremarkable. No evidence for appendicitis. No acute bony abnormality. IMPRESSION: 3 mm right mid renal stone. No overt hydronephrosis. Gallbladder biliary sludge. No evidence for appendicitis. Workstation ID: [id number] Dictated by: ANGEL WHITTINGTON on Sat July 14, 2020 10:26:34 PM EDT Transcribed by: ANGEL WHITTINGTON on Sat July 14, 2020 10:26:34 PM EDT Finalized by: ANGEL HWITTINGTON on Sat July 14, 2020 10:26:34 PM EDT [facility] Comment on above: Order Comment: Injur y/Trauma or Illness?:Illness/Other How long have you had these symptoms (acute/chronic)?:Acute Reason for exam?:upper abdominal pains, nausea Type of Exam?:Initial Additional signs and symptoms?: CT Abdomen Pelvis Without Co ntrastOrdered By: Jayla Adrian on 07-14-2020 3 mm right mid renal stone. No overt hydronephrosis. Gallbladder biliary sludge. No evidence for appendicitis. Workstation ID: [id number] [facility] EXAMINATION: CT ABDOMEN PELVIS WITHOUT CONTRAST HISTORY: ORDERING SYSTEM PROVIDED HISTORY: Abdominal pain, acute, nonlocalized, TECHNOLOGIST PROVIDED HISTORY: Illness/Other Reason for exam: upper abdominal pains, nausea Encounter Type: Initial Additional signs and symptoms: ORDERING SYSTEM PROVIDED DIAGNOSIS CODES: R06.03 Respiratory distress R06.1 Stridor J06.9 Acute URI COMPARISON: Ultrasound kidneys retroperitoneum 06/02/2020 TECHNIQUE: CT examination of the abdomen and pelvis without IV contrast. Coronal and sagittal reformations were performed. Dose reduction techniques were achieved by using automated exposure control and/or adjustment of mA and/or kV according to patient size and/or use of iterative reconstruction technique. FINDINGS: Visualized lung bases unremarkable. Visualized cardiac apex unremarkable. Liver, spleen, pancreas, adrenal glands, kidneys are unremarkable. Biliary sludge. 3 mm right mid renal stone. No overt hydronephrosis. No evidence for small bowel obstruction, large ascites, or free air. Urinary bladder fluid-filled distended without wall thickening. Uterus and pelvic structures unremarkable. Appendix unremarkable. No evidence for appendicitis. No acute bony abnormality. [facility] Ernie Coleman In Fu ji Speechq - 07/14/2020 10:29 PM EDT EXAMINATION: CT ABDOMEN PELVIS WITHOUT CONTRAST HISTORY: ORDERING SYSTEM PROVIDED HISTORY: Abdominal pain, acute, nonlocalized, TECHNOLOGIST PROVIDED HISTORY: Illness/Other Reason for exam: upper abdominal pains, nausea Encounter Type: Initial Additional signs and symptoms: ORDERING SYSTEM PROVIDED DIAGNOSIS CODES: R06.03 Respiratory distress R06.1 Stridor J06.9 Acute URI COMPARISON: Ultrasound kidneys retroperitoneum 06/02/2020 TECHNIQUE: CT examination of the abdomen and pelvis without IV contrast. Coronal and sagittal reformations were performed. Dose reduction techniques were achieved by using automated exposure control and/or adjustment of mA and/or kV according to patient size and/or use of iterative reconstruction technique. FINDINGS: Visualized lung bases unremarkable. Visualized cardiac apex unremarkable. Liver, spleen, pancreas, adrenal glands, kidneys are unremarkable. Biliary sludge. 3 mm right mid renal stone. No overt hydronephrosis. No evidence for small bowel obstruction, large ascites, or free air. Urinary bladder fluid-filled distended without wall thickening. Uterus and pelvic structures unremarkable. Appendix unremarkable. No evidence for appendicitis. No acute bony abnormality. IMPRESSION: 3 mm right mid renal stone. No overt hydronephrosis. Gallbladder biliary sludge. No evidence for appendicitis. Workstation ID: [id number] [facility] Comprehensive metabolic 2000 panelOrdered By: Jayla Adrian on 07-14-2020 Albumin [Mass/Vol] 3.3 g/dL 3.2 - 5.2 g/dL [facility] ALP [Catalytic activity/Vol] 61 U/L 40 - 140 U/L [facility] ALT [Catalytic activity/Vol] 30 U/L 14 - 65 U/L [facility] Anion gap [Moles/Vol] 11 mmol/L 10 - 2 0 mmol/L [facility] AST [Catalytic activity/Vol] 17 U/L 0 - 45 U/L [facility] Bilirubin [Mass/Vol] 0.2 mg/dL 0.0 - 1 .3 mg/dL [facility] Calcium [Mass/Vol] 8.9 mg/dL 8.4 - 10. 2 mg/dL [facility] Chloride [Moles/Vol] 112 mmol/L High 98 - 10 8 mmol/L [facility] Creatinine [Mass/Vol] 0.86 mg/dL 0.40 - 1.10 [facility] GFR/1.73 sq M.predicted CKD-EPI (S/P/Bld) [Vol rate/Area] 89 >=60 mL/min/1.7 3 m2 [facility] Glucose [Mass/Vol] 114 mg/dL High 65 - 99 mg/dL [facility] HCO3 [Moles/Vol] 23 mmol/L 21 - 32 mmol/L [facility] Interpretation and review of laboratory results Abnormal [facility] Potassium [Moles/Vol] 4.4 mmol/L 3.5 - 5.1 mmol/L [facility] Protein [Mass/Vol] 6.6 g/dL 6.0 - 8.0 g/dL [facility] Sodium [Moles/Vol] 142 mmol/L 135 - 145 mmol/L [facility] Urea nitrogen [Mass/Vol] 12 mg/dL 8 - 25 mg/dL [facility] Urea nitrogen/Creatinine [Mass ratio] 14.0 mg/mg [facility] The eGFR should be u sed for monitoring renal function only and not for medication dosing. [facility] Lactate [Moles/Vol]Ordered B y: Jayla Adrian on 07-14-2020 Interpretation and review of laboratory results Abnormal [facility] Lactic Acid, PlasmaOrdered B y: Jayla Adrian on 07-14-2020 Lactate [Moles/Vol] 2.5 mmol/L High 0.6 - 2. 0 mmol/L [facility] LipaseOrdered By: Jayla mckinnon on 07-14-2020 Lipase [Catalytic activity/Vol] 114 U/L 73 - 393 U/L [facility] Lipase [Catalytic activity/V ol]Ordered By: Jayla Adrian on 07-14-2020 Interpretation and review of laboratory results Normal [facility] Magnesium LevelOrdered By: Sylvester Adrian on 07-14-2020 Magnesium [Mass/Vol] 2.0 mg/dL 1.6 - 2 .4 mg/dL [facility] Magnesium [Mass/Vol]Ordered By: Jayla Adrian on 07-14-2020 Interpretation and review of laboratory results Normal [facility] URINALYSISOrdered By: Jayla rosenbaum on 07-14-2020 Bacteria Auto Ql (U) None Seen None Se en /hpf [facility] Clarity Refractometry automated (U) Clear Clear [facility] Color (U) Colorless Colorless, Yellow [facility] Glucose Auto test strip (U) [Mass/Vol] Negative Negative mg/dL [facility] Ketones (U) [Mass/Vol] Negative Negat catrina mg/dL [facility] Leukocyte esterase Auto test strip Ql (U) Negative Negative [facility] pH (U) 6.5 [pH] [facility] Specific gravity (U) [Rel density] 1.005 [facility] UrinalysisOrdered By: Jayla rosenbaum on 07-14-2020 Bilirubin Ql (U) Negative Negative [facility] th Epithelial cells.squamous Auto (Urine sed) [#/Area] <1 [facility] Hemoglobin Auto test strip Ql (U) Negative Negative [facility] Interpretation and review of laboratory results Normal [facility] Nitrite Auto test strip Ql (U) Negative Negative [facility] Protein (U) [Mass/Vol] Negative Negat catrina mg/dL [facility] RBC Auto (Urine sed) [#/Area] <1 [facility] Urobilinogen (U) [Mass/Vol] mg/dL <2.0 mg/dL [facility] WBC Auto (Urine sed) [#/Area] <1 [facility] Microscopic examinat ion is performed on all urinalysis samples and only positive findings are reported. The test for blood on the chemical analytic portion of urinalysis may also be positive due to hemoglobinuria and myoglobinuria and if red blood cells are present they are quantified by microscopic examination. [facility] hCG, Serum, QualitativeOrder ed By: Jayla Adrian on 07-14-2020 Beta HCG ( test) Ql Negative Negative [facility] Basic metabolic 1998 panelOr dered By: Henry Huntley on 07-13-2020 Anion gap [Moles/Vol] 11 mmol/L 10 - 2 0 mmol/L [facility] Chloride [Moles/Vol] 110 mmol/L High 98 - 10 8 mmol/L [facility] Creatinine [Mass/Vol] 1.07 mg/dL 0.40 - 1.10 [facility] GFR/1.73 sq M.predicted CKD-EPI (S/P/Bld) [Vol rate/Area] 68 >=60 mL/min/1.7 3 m2 [facility] Glucose [Mass/Vol] 105 mg/dL High 65 - 99 mg/dL [facility] HCO3 [Moles/Vol] 24 mmol/L 21 - 32 mmol/L [facility] Interpretation and review of laboratory results Abnormal [facility] Potassium [Moles/Vol] 3.7 mmol/L 3.5 - 5.1 mmol/L [facility] Sodium [Moles/Vol] 141 mmol/L 135 - 145 mmol/L [facility] Urea nitrogen [Mass/Vol] 8 mg/dL 8 - 25 mg/dL [facility] Urea nitrogen/Creatinine [Mass ratio] 7.5 mg/mg Low [facility] The eGFR should be u sed for monitoring renal function only and not for medication dosing. [facility] Beta HCG ( test) Ql Ordered By: Henry Huntley on 07-13-2020 Negative: The result is less than or equal to 5 mIU/mL of HCG. [facility] CBC WITH AUTO DIFFERENTIALOr dered By: Henry Huntley on 07-13-2020 Basophils (Bld) [#/Vol] 0.05 10*3/uL [facility] Basophils/100 WBC (Bld) 0.6 % [facility] Eosinophils (Bld) [#/Vol] 0.16 10*3/uL [facility] Eosinophils/100 WBC (Bld) 2.0 % [facility] Erythrocyte distribution width (RBC) [Entitic vol] 12.5 % 11.6 - 14.8 % [facility] Hematocrit (Bld) [Volume fraction] 40.5 % 36.0 - 46.0 % [facility] Hemoglobin (Bld) [Mass/Vol] 13.1 g/dL 12.0 - 16.0 g/dL [facility] Immature granulocytes (Bld) [#/Vol] 0.03 10*3/uL [facility] Immature granulocytes/100 WBC (Bld) 0.40 % [facility] Comment on above: The IG parameter is the percentage of metamyelocytes, myelocytes and promyelocytes. An immature granulocyte count (IG) of 1% or more suggests the possibility of infection, an IG count of 3% is very likely related to an infection. Lymphocytes (Bld) [#/Vol] 2.70 10*3/uL [facility] Lymphocytes/100 WBC (Bld) 33.9 % [facility] MCH (RBC) [Entitic mass] 30.2 pg 26.0 - 34.0 pg [facility] MCHC (RBC) [Mass/Vol] 32.3 g/dL 31.0 - 37.0 g/dL [facility] MCV (RBC) [Entitic vol] 93.3 fL 80.0 - 100.0 fL [facility] Monocytes (Bld) [#/Vol] 0.75 10*3/uL [facility] Monocytes/100 WBC (Bld) 9.4 % [facility] Neutrophils (Bld) [#/Vol] 4.28 10*3/uL [facility] Neutrophils/100 WBC (Bld) 53.7 % [facility] Nucleated RBC (Bld) [#/Vol] 0.00 10*3/uL [facility] Nucleated RBC/100 WBC (Bld) [Ratio] 0.0 % [facility] [facility] Platelet mean volume (Bld) [Entitic vol] 10.0 fL 9.4 - 12.4 fL [facility] Platelets (Bld) [#/Vol] 209 10*3/uL [facility] RBC (Bld) [#/Vol] 4.34 10*6/uL [facility] WBC (Bld) [#/Vol] 7.97 10*3/uL [facility] COVID-19/INFLUENZA A,B MOLEC ULARon 07-13-2020 SARS-CoV-2 (COVID-19) Ab IA Ql SARS-COV-2 (AKIKO): Not Detected INFLUENZA A (AKIKO): Not Detected INFLUENZA B (AKIKO): Not Detected Normal Not Detected [facility] Comment on above: Order Comment: This test was performed under the FDA's Emergency Use Authorization (EUA). Testing was performed using the Tez Annette SARS-CoV-2 RT-PCR AND Influenza A/B Nucleic Acid Test on the Annette Akiko System. This test has not been approved for use in asymptomatic patients and its performance in this patient population has not been evaluated. Negative results do not rule out the presence of SARS-CoV-2, influenza A, and/or influenza B. Fact sheets for the EUA can be found at the following links: For Healthcare Providers: https://www.fda.gov/media/573730/download For Patients: https://www.fda.gov/media/533246/download Performed By: #### L [id number] #### [facility] [address], [place] [address] Osman Cohn M.D. [id number] COVID-19/Influenza A,B Molec ularOrdered By: Henry Huntley on 07-13-2020 SARS-CoV-2 (COVID-19) RNA DAYAMI+probe Ql (Resp) Not detected Not Detected [facility] CRITICAL CAREOrdered By: Bita Huntley on 07-13-2020 Henry Huntley MD 07/13/2020 3:53 PM Critical Care Performed by: Henry Huntley MD Authorized by: Henry Huntley MD Total critical care time: 45 minutes Critical care time was exclusive of separately billable procedures and treating other patients. Critical care was necessary to treat or prevent imminent or life-threatening deterioration of the following conditions: respiratory failure. Critical care was time spent personally by me on the following activities: development of treatment plan with patient or surrogate, discussions with consultants, discussions with primary provider, evaluation of patient's response to treatment, ordering and performing treatments and interventions, examination of patient, obtaining history from patient or surrogate, ordering and review of radiographic studies, ordering and review of laboratory studies, re-evaluation of patient's condition, review of old charts and pulse oximetry. [facility] CT SOFT TISSUE NECK WITH CON TRASTon 07-13-2020 CT SOFT TISSUE NECK WITH CONTRAST EXAMINATION: CT SOFT TISSUE NECK WITH CONTRAST HISTORY: ORDERING SYSTEM PROVIDED HISTORY: Epiglottitis or tonsillitis suspected, TECHNOLOGIST PROVIDED HISTORY: Illness/Other Reason for exam: Epiglottitis or tonsillitis suspected Encounter Type: Initial Additional signs and symptoms: sob ORDERING SYSTEM PROVIDED DIAGNOSIS CODES: R06.03 Respiratory distress R06.1 Stridor J06.9 Acute URI COMPARISON: None TECHNIQUE: CT examination of the soft tissues of the neck following the administration of intravenous contrast. Coronal and sagittal reformations were performed. Dose reduction techniques were achieved by using automated exposure control and/or adjustment of mA and/or kV according to patient size and/or use of iterative reconstruction technique. CONTRAST: IOPAMIDOL 76 % INTRAVENOUS SOLUTION - 75 mL, FINDINGS: The visualized airway appears unremarkable. The nasopharynx, oropharynx, hypopharynx appear unremarkable. The epiglottis and aryepiglottic folds have an unremarkable appearance. The visualized trachea and esophagus also appear unremarkable. No significant tracheal wall thickening is seen. The tracheal bifurcation appears unremarkable. No tonsillar or peritonsillar abnormal density or abscess is seen. The prevertebral and paravertebral soft tissues appear unremarkable. Multiple small cervical lymph nodes are seen bilaterally measuring up to 1 cm in short axis. The visualized vascular structures of the neck appear unremarkable. The visualized lung apices appear clear. Bilateral thyroid lobes demonstrate normal size and density. The cervical spine demonstrates normal lordotic curvature. The cervical vertebral bodies demonstrate normal height and alignment. The central canal appears patent. Bilateral parietal and submandibular glands appear unremarkable. The visualized orbits, paranasal sinuses and ethmoid air cells appear within normal limits. The visualized brain parenchyma appears unremarkable. IMPRESSION: No obvious CT evidence for epiglottitis or tonsillitis. No abnormal fluid collection is seen in the soft tissues of the neck to suggest abscess. Multiple small cervical lymph nodes are seen bilaterally measuring up to 1 cm in short axis. Workstation ID: [id number] Dictated by: ROE MO on ThuJuly 13, 2020 5:57:46 PM EDT Transcribed by: ROE MO on ThuJuly 13, 2020 5:57:46 PM EDT Finalized by: ROE MO on ThuJuly 13, 2020 5:57:46 PM EDT [facility] Comment on above: Order Comment: Injur y/Trauma or Illness?:Illness/Other How long have you had these symptoms (acute/chronic)?:Acute Reason for exam?:Epiglottitis or tonsillitis suspected Type of Exam?:Initial Additional signs and symptoms?:sob CT SOFT TISSUE NECK WITH CON TRASTOrdered By: Henry Huntley on 07-13-[address] eviden ce for epiglottitis or tonsillitis. No abnormal fluid collection is seen in the soft tissues of the neck to suggest abscess. Multiple small cervical lymph nodes are seen bilaterally measuring up to 1 cm in short axis. Workstation ID: [id number] [facility] EXAMINATION: CT SOFT TISSUE NECK WITH CONTRAST HISTORY: ORDERING SYSTEM PROVIDED HISTORY: Epiglottitis or tonsillitis suspected, TECHNOLOGIST PROVIDED HISTORY: Illness/Other Reason for exam: Epiglottitis or tonsillitis suspected Encounter Type: Initial Additional signs and symptoms: sob ORDERING SYSTEM PROVIDED DIAGNOSIS CODES: R06.03 Respiratory distress R06.1 Stridor J06.9 Acute URI COMPARISON: None TECHNIQUE: CT examination of the soft tissues of the neck following the administration of intravenous contrast. Coronal and sagittal reformations were performed. Dose reduction techniques were achieved by using automated exposure control and/or adjustment of mA and/or kV according to patient size and/or use of iterative reconstruction technique. CONTRAST: IOPAMIDOL 76 % INTRAVENOUS SOLUTION - 75 mL, FINDINGS: The visualized airway appears unremarkable. The nasopharynx, oropharynx, hypopharynx appear unremarkable. The epiglottis and aryepiglottic folds have an unremarkable appearance. The visualized trachea and esophagus also appear unremarkable. No significant tracheal wall thickening is seen. The tracheal bifurcation appears unremarkable. No tonsillar or peritonsillar abnormal density or abscess is seen. The prevertebral and paravertebral soft tissues appear unremarkable. Multiple small cervical lymph nodes are seen bilaterally measuring up to 1 cm in short axis. The visualized vascular structures of the neck appear unremarkable. The visualized lung apices appear clear. Bilateral thyroid lobes demonstrate normal size and density. The cervical spine demonstrates normal lordotic curvature. The cervical vertebral bodies demonstrate normal height and alignment. The central canal appears patent. Bilateral parietal and submandibular glands appear unremarkable. The visualized orbits, paranasal sinuses and ethmoid air cells appear within normal limits. The visualized brain parenchyma appears unremarkable. [facility], Rad In [facility] [employer] - 07/13/2020 6:00 PM EDT EXAMINATION: CT SOFT TISSUE NECK WITH CONTRAST HISTORY: ORDERING SYSTEM PROVIDED HISTORY: Epiglottitis or tonsillitis suspected, TECHNOLOGIST PROVIDED HISTORY: Illness/Other Reason for exam: Epiglottitis or tonsillitis suspected Encounter Type: Initial Additional signs and symptoms: sob ORDERING SYSTEM PROVIDED DIAGNOSIS CODES: R06.03 Respiratory distress R06.1 Stridor J06.9 Acute URI COMPARISON: None TECHNIQUE: CT examination of the soft tissues of the neck following the administration of intravenous contrast. Coronal and sagittal reformations were performed. Dose reduction techniques were achieved by using automated exposure control and/or adjustment of mA and/or kV according to patient size and/or use of iterative reconstruction technique. CONTRAST: IOPAMIDOL 76 % INTRAVENOUS SOLUTION - 75 mL, FINDINGS: The visualized airway appears unremarkable. The nasopharynx, oropharynx, hypopharynx appear unremarkable. The epiglottis and aryepiglottic folds have an unremarkable appearance. The visualized trachea and esophagus also appear unremarkable. No significant tracheal wall thickening is seen. The tracheal bifurcation appears unremarkable. No tonsillar or peritonsillar abnormal density or abscess is seen. The prevertebral and paravertebral soft tissues appear unremarkable. Multiple small cervical lymph nodes are seen bilaterally measuring up to 1 cm in short axis. The visualized vascular structures of the neck appear unremarkable. The visualized lung apices appear clear. Bilateral thyroid lobes demonstrate normal size and density. The cervical spine demonstrates normal lordotic curvature. The cervical vertebral bodies demonstrate normal height and alignment. The central canal appears patent. Bilateral parietal and submandibular glands appear unremarkable. The visualized orbits, paranasal sinuses and ethmoid air cells appear within normal limits. The visualized brain parenchyma appears unremarkable. IMPRESSION: No obvious CT evidence for epiglottitis or tonsillitis. No abnormal fluid collection is seen in the soft tissues of the neck to suggest abscess. Multiple small cervical lymph nodes are seen bilaterally measuring up to 1 cm in short axis. Workstation ID: [id number] [facility] D-DIMER, QUANTITATIVEOrdered By: Henry Huntley on 07-13-2020 Fibrin D-dimer FEU (PPP) [Mass/Vol] <0.27 0.27 - 0.49 mcg/mL FEU [facility] Interpretation and review of laboratory results Normal [facility] A D-dimer concentrat ion of <0.5 micrograms per milliliter FEU is considered a low probability for pulmonary embolus (PE) and deep venous thrombosis (DVT). Results of this test should always be interpreted in conjunction with the patient's medical history,clinical presentation, and other findings. Clinical diagnosis should not be based on the results of the D-dimer alone. [facility] ECG 12-LEADOrdered By: Hnery Huntley on 07-13-2020 Atrial Rate 126 BPM [facility] P [place] 75 degrees [facility] P-R Interval 140 ms [facility] Q-T Interval 320 ms [facility] QRS Duration 76 ms [facility] QTC Calculation (Bezet) 463 ms [facility] R [place] 66 degrees [facility] T [place] 67 degrees [facility] Ventricular Rate 126 BPM [facility] th Sinus tachycardia Po ssible Left atrial enlargement Borderline ECG ECG Cart Interpretation see physician note for interpretation. Confirmed by Mesha Chappell ([id number]) on 07/13/2020 10:19:53 PM [facility] EKGOrdered By: Provider Syst em on 07-13-2020 Ordered by an unspec ified provider. [facility] HCG (QUALITATIVE)Ordered By: Henry Huntley on 07-13-2020 Beta HCG ( test) Ql Negative Negative [facility] Hepatic function 2000 panelO rdered By: Henry Huntley on 07-13-2020 Albumin [Mass/Vol] 3.6 g/dL 3.2 - 5.2 g/dL [facility] ALP [Catalytic activity/Vol] 68 U/L 40 - 140 U/L [facility] ALT [Catalytic activity/Vol] 38 U/L 14 - 65 U/L [facility] AST [Catalytic activity/Vol] 23 U/L 0 - 45 U/L [facility] Bilirubin [Mass/Vol] 0.4 mg/dL 0.0 - 1 .3 mg/dL [facility] Bilirubin.conjugated [Mass/Vol] 0.1 mg/dL 0.0 - 0.4 mg/dL [facility] Protein [Mass/Vol] 7.2 g/dL 6.0 - 8.0 g/dL [facility] Magnesium LevelOrdered By: Kenton Huntley on 07-13-2020 Magnesium [Mass/Vol] 1.9 mg/dL 1.6 - 2 .4 mg/dL [facility] NT Pro BNPOrdered By: Henry sanders on 07-13-2020 Natriuretic peptide.B prohormone N-Terminal [Mass/Vol] 104 pg/mL 0 - 300 pg/mL [facility] Natriuretic peptide.B prohor william N-Terminal [Mass/Vol]Ordered By: Henry Huntley on 07-13-2020 Pride Study Cut-offs Rule In: < /= 50 Years >450 pg/mL 51 Years - 75 Years >900 pg/mL 76 Years - 99 Years >1800 pg/mL Rule Out: All patients <300 pg/mL [facility] No Panel InformationOrdered By: Henry Huntley on 07-13-2020 Extra Tube Hold for add-ons. [facility] Comment on above: Auto resulted. [facility] Interpretation and review of laboratory results Normal [facility] Interpretation and review of laboratory results Normal [facility] Obtain venous blood gases an d performOrdered By: Henry Huntley on 07-13-2020 [facility] POC Venous Blood Gas Panel-P ulmOrdered By: Henry Huntley on 07-13-2020 Base excess Calc (BldV) [Moles/Vol] 0.1 mmol/L [facility] Breath rate setting Ventilator synchronized intermittent mandatory 0 [facility] h CO2 (BldV) [Partial pressure] 43.1 mm[Hg] [facility] HCO3 (Bld) [Moles/Vol] 25.5 mmol/L 24.0 - 28.0 mmol/L [facility] Hematocrit (BldA) [Volume fraction] 42.2 % 36.0 - 46.0 % [facility] Hemoglobin (Bld) [Mass/Vol] 13.8 g/dL 12.0 - 16.0 g/dL [facility] Inhaled oxygen concentration 100 % [facility] Inhaled oxygen flow rate 15 L/min [facility] Interpretation and review of laboratory results Abnormal [facility] Oxygen (BldV) [Partial pressure] 41 mm[Hg] High [facility] Oxygen saturation in Venous blood 77.0 % High 40.0 - 70.0 % [facility] pH (BldV) 7.38 [pH] [facility] Tidal volume setting Ventilator 0 [facility] SARS-CoV-2 (COVID-19) RNA NA A+probe Ql (Resp)Ordered By: Henry Huntley on 07-13-2020 Influenza A Not detected Not Detected [facility] Influenza B Not detected Not Detected [facility] Interpretation and review of laboratory results Normal [facility] This test was perfor med under the FDA's Emergency Use Authorization (EUA). Testing was performed using the Tez Annette SARS-CoV-2 RT-PCR & Influenza A/B Nucleic Acid Test on the Annette Akiko System. This test has not been approved for use in asymptomatic patients and its performance in this patient population has not been evaluated. Negative results do not rule out the presence of SARS-CoV-2, influenza A, and/or influenza B. Fact sheets for the EUA can be found at the following links: For Healthcare Providers: https://www.fda.gov/media/ 490692/download For Patients: https://www.fda.gov/media/ 562979/download [facility] TROPONINOrdered By: Henry garner on 07-13-2020 Inter Troponin I Delta Change No biomarker evidence of cardiac injury. [facility] Troponin I.cardiac [Mass/Vol] ng/mL <=45 ng/L [facility] Troponin I Interpretation Normal [facility] Troponin I.cardiac [Mass/Vol] ng/mL <=45 ng/L [facility] URINALYSISOrdered By: Henry sanders on 07-13-2020 Bacteria Auto Ql (U) None Seen None Se en /hpf [facility] Clarity Refractometry automated (U) Clear Clear [facility] Color (U) Yellow Colorless, Yellow [facility] Glucose Auto test strip (U) [Mass/Vol] >=500 Abnormal Negative mg/dL [facility] Ketones (U) [Mass/Vol] Negative Negat catrina mg/dL [facility] Leukocyte esterase Auto test strip Ql (U) Negative Negative [facility] pH (U) 5.5 [pH] [facility] Specific gravity (U) [Rel density] 1.048 High [facility] UrinalysisOrdered By: Henry sanders on 07-13-2020 Bilirubin Ql (U) Negative Negative [facility] th Epithelial cells.squamous Auto (Urine sed) [#/Area] 1 [facility] Hemoglobin Auto test strip Ql (U) Negative Negative [facility] Interpretation and review of laboratory results Abnormal [facility] Nitrite Auto test strip Ql (U) Negative Negative [facility] Protein (U) [Mass/Vol] Negative Negat catrina mg/dL [facility] RBC Auto (Urine sed) [#/Area] <1 [facility] Urobilinogen (U) [Mass/Vol] mg/dL <2.0 mg/dL [facility] WBC Auto (Urine sed) [#/Area] 1 [facility] Microscopic examinat ion is performed on all urinalysis samples and only positive findings are reported. The test for blood on the chemical analytic portion of urinalysis may also be positive due to hemoglobinuria and myoglobinuria and if red blood cells are present they are quantified by microscopic examination. [facility] XR CHEST PA/APon 07-13-2020 XR CHEST PA/AP EXAMINATION: XR CHEST PA/AP 07/13/2020 2:21 PM HISTORY: ORDERING SYSTEM PROVIDED HISTORY: sob, TECHNOLOGIST PROVIDED HISTORY: Illness/Other Reason for exam: sob Cancer History: u Surgery, RadiationHistory: u Encounter Type: Initial Additional signs and symptoms: hx of asthma ORDERING SYSTEM PROVIDED DIAGNOSIS CODES: COMPARISON: 10/22/2008. FINDINGS: Single projection. There is or subtle infiltrate suspected in the peribronchial spaces of the left upper lobe. No pneumothorax cavity or pleural effusion. Normal cardiomediastinal shadows. IMPRESSION: Possible peribronchial infiltrate in the left upper lobe. PRL/lab Workstation ID: [id number] Dictated by: SANKET NAVARRO on ThuJuly 13, 2020 2:53:04 PM EDT Transcribed by: DANIELLE EDGE on ThuJuly 13, 2020 3:20:09 PM EDT Finalized by: SANKET NAVARRO on ThuJuly 13, 2020 3:38:46 PM EDT Normal [facility] Comment on above: Order Comment: Injur y/Trauma or Illness?:Illness/Other How long have you had these symptoms (acute/chronic)?:Acute Reason for exam?:sob History of cancer?:u Surgeries, chemotherapy, or radiation?:u Type of Exam?:Initial Additional signs and symptoms?:hx of asthma XR Chest 1 ViewOrdered By: Kenton Huntley on 07-13-2020 Possible peribronchi al infiltrate in the left upper lobe. PRL/lab Workstation ID: [id number] [facility] EXAMINATION: XR CHEST PA/AP 07/13/2020 2:21 PM HISTORY: ORDERING SYSTEM PROVIDED HISTORY: sob, TECHNOLOGIST PROVIDED HISTORY: Illness/Other Reason for exam: sob Cancer History: u Surgery, RadiationHistory: u Encounter Type: Initial Additional signs and symptoms: hx of asthma ORDERING SYSTEM PROVIDED DIAGNOSIS CODES: COMPARISON: 10/22/2008. FINDINGS: Single projection. There is or subtle infiltrate suspected in the peribronchial spaces of the left upper lobe. No pneumothorax cavity or pleural effusion. Normal cardiomediastinal shadows. [employer], Rad In [facility] - 07/13/2020 3:41 PM EDT EXAMINATION: XR CHEST PA/AP 07/13/2020 2:21 PM HISTORY: ORDERING SYSTEM PROVIDED HISTORY: sob, TECHNOLOGIST PROVIDED HISTORY: Illness/Other Reason for exam: sob Cancer History: u Surgery, RadiationHistory: u Encounter Type: Initial Additional signs and symptoms: hx of asthma ORDERING SYSTEM PROVIDED DIAGNOSIS CODES: COMPARISON: 10/22/2008. FINDINGS: Single projection. There is or subtle infiltrate suspected in the peribronchial spaces of the left upper lobe. No pneumothorax cavity or pleural effusion. Normal cardiomediastinal shadows. IMPRESSION: Possible peribronchial infiltrate in the left upper lobe. PRL/lab Workstation ID: [id number] [facility] XR Neck Soft TissueOrdered B y: Henry Huntley on 07-13-2020 Patent airway. No prevertebral soft swelling. ST/mjr Workstation ID: [id number] [facility] EXAMINATION: XR SOFT TISSUE NECK HISTORY: ORDERING SYSTEM PROVIDED HISTORY: stridor, TECHNOLOGIST PROVIDED HISTORY: Illness/Other Reason for exam: stridor Cancer History: u Surgery, RadiationHistory: u Encounter Type: Initial Additional signs and symptoms: hx of asthma ORDERING SYSTEM PROVIDED DIAGNOSIS CODES: COMPARISON: None. FINDINGS: Two views of the neck soft tissues Patent airway. No prevertebral soft swelling. No thickening of the epiglottis. No acute osseous abnormalities. [employer], [facility] [employer] - 07/13/2020 6:24 PM EDT EXAMINATION: XR SOFT TISSUE NECK HISTORY: ORDERING SYSTEM PROVIDED HISTORY: stridor, TECHNOLOGIST PROVIDED HISTORY: Illness/Other Reason for exam: stridor Cancer History: u Surgery, RadiationHistory: u Encounter Type: Initial Additional signs and symptoms: hx of asthma ORDERING SYSTEM PROVIDED DIAGNOSIS CODES: COMPARISON: None. FINDINGS: Two views of the neck soft tissues Patent airway. No prevertebral soft swelling. No thickening of the epiglottis. No acute osseous abnormalities. IMPRESSION: Patent airway. No prevertebral soft swelling. [employer] Workstation ID: [id number] [facility] XR SOFT TISSUE NECKon 2020 XR SOFT TISSUE NECK EXAMINATION: XR SOFT TISSUE NECK HISTORY: ORDERING SYSTEM PROVIDED HISTORY: stridor, TECHNOLOGIST PROVIDED HISTORY: Illness/Other Reason for exam: stridor Cancer History: u Surgery, RadiationHistory: u Encounter Type: Initial Additional signs and symptoms: hx of asthma ORDERING SYSTEM PROVIDED DIAGNOSIS CODES: COMPARISON: None. FINDINGS: Two views of the neck soft tissues Patent airway. No prevertebral soft swelling. No thickening of the epiglottis. No acute osseous abnormalities. IMPRESSION: Patent airway. No prevertebral soft swelling. [employer] Workstation ID: [id number] Dictated by: GIANFRANCO MONCADA on ThuJuly 13, 2020 2:55:58 PM EDT Transcribed by: CHEN CHIU on ThuJuly 13, 2020 3:23:31 PM EDT Finalized by: GIANFRANCO MONCADA on ThuJuly 13, 2020 6:21:31 PM EDT [facility] Comment on above: Order Comment: Injur y/Trauma or Illness?:Illness/Other How long have you had these symptoms (acute/chronic)?:Acute Reason for exam?:stridor History of cancer?:u Surgeries, chemotherapy, or radiation?:u Type of Exam?:Initial Additional signs and symptoms?:hx of asthma Established Visit (Pain Medi cine)on 06-18-2020 Established Visit (Pain Medicine) Diagnoses/Problems Fibromyalgia (729.1) (M79.7) Lumbosacral spondylosis (721.3) (M47.817) Thoracic spondylosis (721.2) (M47.814) Orders Fibromyalgia Start: Cyclobenzaprine HCl - 5 MG Oral Tablet; TAKE 1 TABLET Bedtime PRN Fibromyalgia, Lumbosacral spondylosis, Thoracic spondylosis Start: Gabapentin 100 MG Oral Capsule; 3 caps PO BID for 4 days, decrease by 1 cap q4days till off Patient Discussion/Summary I discussed with the patient the likely etiology of her symptoms, as well as potential treatment options I addressed options with her and we will have her titrate off gabapentin by dropping 100 mg every 4 days until she is off. I will also switch from tizanidine over to cyclobenzaprine which is a category B although I also advised her that if she could stop that it would also be advisable. She will discuss with her OB whether to see MFM. I will see her for follow-up in 6 months or sooner if needed. Chief Complaint Back Pain FUV for R low back pain, 03/28. No radiation. Patient would like to discuss eliminating gabapentin because she would like to get . She is also taking a vitamin. This is a 34-year-old female here for a follow-up appointment for chief complaint of mid and low back pain. She reports that from a pain standpoint she is doing well. She is going to try to get so she would like to know how to come off the gabapentin. She had some 300 mg tabs at home so she is down to 300 mg twice a day and has been doing that for the past 3 days. She denies new neurologic symptoms or issues with bladder or bowel control. The patient's past medical, social, and family history along with medications and allergies are available and were reviewed. Adult Risk Screening Advance directives: Living Will: No living will on file. Healthcare POA: No healthcare proxy on file. Domestic Violence Screen: Does not feel threatened or abused physically, emotionally or sexually. Do you feel UNSAFE? The patient feels safe in the home. Depression/Suicide Screening: She does not have a risk of suicide. She has not had thoughts of harming others. Reference Documentation See scanned note Review of systems ORT . History of Present Illness On a scale of 0 to 10, the patient rates the pain at 2. Pain Location: Low Back Pain and R. Pain Quality: Dull. Timing/Duration: Constant and > 12 weeks duration. Controlled Substance: I have personally reviewed the OARRS report for KENDALL VASQUES. I have considered the risks of abuse, dependence, addiction and diversion. Goals for Pain Management: ORT = 1. Review of Systems All 13 systems were reviewed and are within normal levels except as noted below or per HPI. Positive and pertinent negative responses are noted below or in the HPI. Active Problems Common migraine (346.10) (G43.009) Fibromyalgia (729.1) (M79.7) Headache (784.0) (R51.9) IBS (irritable bowel syndrome) (564.1) (K58.9) Kidney stones (592.0) (N20.0) Lumbosacral spondylosis (721.3) (M47.817) Migraines (346.90) (G43.909) Muscle spasm (728.85) (M62.838) Seizures (780.39) (R56.9) Thoracic back pain (724.1) (M54.6) Thoracic spondylosis (721.2) (M47.814) Past Medical History History of Anxiety (300.00) (F41.9) History of asthma (V12.69) (Z87.09) History of hypoglycemia (V12.29) (Z86.39) Surgical History History of Colon surgery exploratory lab sx -2020 History of Medial branch block Managed By: Benitez Eubanks (Pain Medicine) RT T9-11 MBB History of Medial branch block Managed By: Benitez Eubanks (Pain Medicine) RT T911 MBB History of Radiofrequency ablation Managed By: Benitez Eubanks (Pain Medicine) Rt T9-11 MB RFA Family History Family history of cerebrovascular accident (CVA) (V17.1) (Z82.3) Family history of hyperlipidemia (V18.19) (Z83.438) Family history of hypertension (V17.49) (Z82.49) Social History Never a smoker No advance directives (V49.89) (Z78.9) No alcohol use No illicit drug use Allergies codeine Recorded By: Simone Manzano; 07/02/2016 8:56:57 AM Flagyl Recorded By: Simone Manzano; 07/02/2016 8:59:14 AM NSAIDs Recorded By: Meme Love; 09/01/2019 8:20:12 AM Additional reactions - NO NOT GIVE Shellfish Hives;; Recorded By: Meme Love; 09/01/2019 8:20:12 AM Current Meds Medication NameInstruction Ondansetron 4 MG Oral Tablet Disintegrating Promethazine HCl - 25 MG Oral Tablet traZODone HCl TABSTAKE 1 TABLET DAILY. Vitals Vital Signs Recorded: 60Yuf5537 08:21AM Gweaxzjmerw82 F Heart Rate98 Ufyfrwfbhts30 Wxnjmqrg110 Xhfjuurfr56 Mzxbxd434 lb 9.6 oz BMI Rljgidkdsk29.42 BSA Calculated1.63 Physical Exam Constitutional: no acute distress, well appearing and well nourished. Patient appears stated age. Eyes: conjunctiva anicteric and eye lids are without obvious rash or drooping. Pupils are symmetric Ears, Nose, Mouth, and Throat: external ears and nose appear to be wit (more content not included)... Normal [facility] CORONAVIRUS 2019 BY PCRon SARS-CoV-2 (COVID-19) RNA DAYAMI+probe Ql (Unsp spec) Not detected Normal Not Detected [facility] Comment on above: Result Comment: . This assay is designed to detect SARS-CoV-2 based on replication of specific regions of the RNA from the SARS-CoV-2 virus. A Not Detected result does not preclude 2019-nCoV infection since the adequacy of sample collection and/or low viral burden may result in presence of viral nucleic acids below the clinical sensitivity of this test method. Fact sheet for providers: https://www.fda.gov/media/109378/download Fact sheet for patients: https://www.fda.gov/media/936987/download This test has received FDA Emergency Use Authorization [EUA] and has been verified by [facility] ([facility]). This test is only authorized for the duration of time that circumstances exist to justify the authorization of the emergency use of in vitro diagnostic tests for the detection of SARS-CoV-2 virus and/or diagnosis of COVID-19 infection under section 564(b)(1) of the Act, 21 U.S.C. 360bbb-3(b)(1), unless the authorization is terminated or revoked sooner. [facility] is certified under CLIA-88 as qualified to perform high complexity testing. Testing is performed in the [facility] laboratories located at [id number] [place] [address]. Performed By: #### C OV19 #### [facility] [address] [place] [address] Covid 19 Resultson 1 SARS-CoV-2 (COVID-19) RNA DAYAMI+probe Ql (Unsp spec) NEGATIVE COVID-19 Test Coronaviruses are common world-wide and are the cause of many common colds. SARS-COV2 is a new coronavirus that began circulating worldwide in 2019 so we are calling it COVID-19. It has been estimated that four out of five patients with COVID-19 will recover at home without the need for medical attention. Symptoms of COVID-19 may include cough, fever, shortness of breath, loss of taste or smell and other flu-like symptoms including chills, sore muscles, sore throat, and headache. Severe illness is more common in older people and people with other health problems such as high blood pressure, obesity, and immune system problems. If the test is positive, you have COVID-19. You will be contacted by the ordering physicians office and instructed to remain on home isolation, in accordance with CDC guidelines. You may also be contacted by the [facility] to see if any of your close contacts may have been exposed to the virus and need to quarantine. If the test is negative, you likely do not have COVID-19 at this time, but you still may have a different illness that can spread to other people (like Influenza, or the Flu) and could still be at risk for getting COVID-19. We recommend that you stay away from other people to limit the spread of illness until your symptoms are improving and you are fever-free for 24 hours without the use of fever lowering medications such as acetaminophen or ibuprofen. No test is 100% accurate so if you are still concerned you may have COVID-19, talk to your doctor about the need to continue to stay away from others. Medicines Unless your provider told you not to use the following: Acetaminophen (Tylenol and others) is generally safe. Anti-inflammatory medications, such as Ibuprofen (Advil or Motrin) or Naproxen (Aleve) can also be used. Pwht-dxq-eszskbp cough and cold medicines can be used according to the instructions on the package. Some tzmb-plb-vzlpywf medicines also contain acetaminophen. Make sure you are not taking more than your recommended dose. For those not hospitalized, there is no specific treatment available for this illness. Antibiotics do not treat Coronaviruses. Follow-Up Follow up with your doctor by scheduling a virtual visit or consider follow-up at one of our urgent care fever clinics. If you are having difficulty breathing, or are very weak and having difficulty standing, this is a medical emergency. Call 911 or have someone take you to the nearest emergency room immediately. If possible, wear a facemask. Additional guidance from the CDC for patients who tested POSITIVE for COVID-19 How to isolate: Isolate yourself in a specific room at home and limit your contact with others. Use a separate bathroom from other members of the household, when possible. Leave home only to get essential medical care. Do not go to work, school or public areas. Avoid using public transportation, ride-sharing, or taxis. Restrict contact with pets and other animals. If you must care for your pet or be around animals while you are sick, wash your hands before and after your interaction and wear a facemask. Make sure that shared spaces in the home have good airflow, such as by an air conditioner or an opened window, weather permitting. Personal Hygiene Procedures: Wear a face mask when in the same room as other people or pets. If a face mask interferes with your breathing, others should wear a mask when sharing space with you. Frequent hand-washing: wash your hands with soap and water for at least 20 seconds. If soap and water are not available, use alcohol-based hand housing court judge. Avoid touching your eyes, nose, and mouth with unwashed hands. Household Hygiene Procedures: Avoid sharing personal household items such as dishes, glassware, cups, eating utensils, towels or bedding with other people or pets in your home. After use, these items should be washed with soap and hot water. Disinfect all high-touch surfaces every day with antibacterial cleaning solutions such as Lysol wipes, bleach, cleansers, etc. High-touch surfaces include tabletops, doorknobs, bathroom fixtures, toilets, phones, keyboards, tablets and bedside tables. Immediately clean any surfaces that may have blood, poop or body fluids on them, using antibacterial cleaning solutions such as Lysol wipes, bleach, cleansers, etc. If clothing or bedding come into contact with blood, poop or body fluids, they should be washed immediately. Follow the directions on the laundry detergent and clothing labels but hot water is recommended when possible. Stopping home isolation precautions: If possible, consult your doctor before stopping home isolation precautions. According to the CDC, you can discontinue home isolation precautions when you have met both of these criteria: Your fever and respiratory symptoms have been gone for 24 rebeca (more content not included)... [facility] CORONAVIRUS 2019 BY PCRon DATE OF SYMPTOM ONSET [YYYYMMDD]? [id number] [facility] Comment on above: Performed By: #### C OV19 #### [facility] [address] [place] [address] Lab Specimen Source Lavage, Bronchial [facility] Comment on above: Performed By: #### C OV19 #### [facility] [address] [place] [address] Provider Note - ED v2on 05-17 Provider Note - ED v2 Provider Note - ED v2: Chart Review: HISTORY OF PRESENTING ILLNESS KENDALL is a 34 year old Female and was seen by me at 26-May-2020 11:23 for a chief complaint of cold symptoms. Other complaints include: Patient presents with 2 days of cold symptoms including headache, cough, loss of taste and smell, body aches, chills. She has treated her symptoms with Tylenol. She did have a positive exposure on Thursday, 4 days ago. She is here to be tested. She denies any underlying lung disease but does have fibromyalgia.. The historian is the patient. Triage Information: Most recent Vital Sign Value Date PAST MEDICAL HISTORY ATTESTATION: I have reviewed and confirmed nurse's/medic's notes for patient's medications, allergies, and medical, surgical, family and social history CURRENT OR FORMER SUBSTANCE USE: NO: Cigarette/Tobacco, e-Cigarette/Vaping, Alcohol and Street Drugs ALLERGIES/INTOLERANCES: Allergy Allergen: codeine Type: Drug Reaction: Itching Allergen: Flagyl Type: Drug Reaction: Seizure Allergen: NSAIDs Type: Drug Category Reaction: Other Allergen: Tape - Adhesive, Bandaids, Paper Type: Environment Reaction: Rash Allergen: Shell Fish Type: Food Reaction: Hives/Urticaria HEALTH HISTORY: Medical History Name:Common migraine Code:G43.009 Name:Fibromyalgia Code:M79.7 Name:Headache Code:R51 Name:IBS (irritable bowel syndrome) Code:K58.9 Name:History of renal stone Code:Z87.442 Name:Migraines Code:G43.909 Name:Muscle spasm Code:M62.838 Name:Seizures Code:R56.9 Name:Thoracic back pain Code:M54.6 Name:Thoracic spondylosis Code:M47.814 Name:Anxiety Code:F41.9 Name:Asthma Code:J45.909 Name:Hypoglycemia Code:E16.2 OUTPATIENT MEDICATIONS: Home Medications Review Status for Reconciliation: Complete Med Status: Patient Currently Takes Medications Drug Name: spironolactone 25 mg oral tablet Instructions: 1 tab(s) orally once a day Drug Name: gabapentin 800 mg oral tablet Instructions: 1 tab(s) orally 3 times a day Drug Name: tiZANidine 4 mg oral tablet Instructions: 1 tab(s) orally once a day (at bedtime), As Needed - for spasms//muscle pain Drug Name: baclofen 10 mg oral tablet Instructions: 1 tab(s) orally once a day (in the morning), As Needed muscle pain Drug Name: Zofran ODT 4 mg oral tablet, disintegrating Instructions: 1 tab(s) orally every 4 hours, As Needed Drug Name: promethazine 25 mg oral tablet Instructions: 1 tab(s) orally every 6 hours, As Needed Drug Name: ketorolac 10 mg oral tablet Instructions: 1 tab(s) orally every 4 hours, As Needed - for pain Drug Name: Ventolin HFA 90 mcg/inh inhalation aerosol Instructions: 1 puff(s) inhaled every 4 hours, As Needed Drug Name: ipratropium-albuterol 0.5 mg-2.5 mg/3 mLinhalation solution Instructions: 3 milliliter(s) inhaled every 6 hours Drug Name: traZODone 150 mg oral tablet Instructions: 1 tab(s) orally once a day Drug Name: Microgestin FE 03/07 oral tablet Instructions: 1 tab(s) orally once a day Drug Name: Tylenol 325 mg oral capsule Instructions: 1 cap(s) orally 3 times a day, As Needed Drug Name: ALPRAZolam 0.5 mg oral tablet Instructions: 1 tab(s) orally 2 times a day, As Needed Drug Name: 1 oral capsule Instructions: null SIGNIFICANT EVENTS: Clinical Events Description:Surgical Procedure Additional Notes:1. R T9-11 MBB; Description:Surgical Procedure Additional Notes:1. R T9-11 MBB; Description:Surgical Procedure Additional Notes:1. R T9-11 MB RFA; Immunizations Description:Pneumonia- Pneumococcal polysaccharide vaccine Past Medical History Description:Stage II kidney disease Description:Kidney stones Description:Pseudoseizures Description:HTN Description:asthma HEAD PORTER BAGGAGE: Is : no Is : no REVIEW OF SYSTEMS CONSTITUTIONAL: POSITIVE for: chills, fever and malaise Negative for: weakness EYES: Negative for: itching and pain ENMT Ears: Negative for: discharge and pain Nose: Negative for: congestion and sneezing Throat/Neck: Negative for: throat pain CARDIOVASCULAR: Negative for: chest pain and palpitations RESPIRATORY: POSITIVE for: cough Negative for: dyspnea and wheezing GASTROINTESTINAL: Negative for: abdominal pain; MUSCULOSKELETAL: POSITIVE for: pain NEUROLOGICAL: POSITIVE for: headache; Negative for: dizziness; All other systems reviewed and are negative RESULTS/VITAL SIGNS VITAL SIGNS: T PRBP SpO2O2(LPM) %FiO2 Method 26-May-2020 10:42:[id number] 95 PHYSICAL EXAM CONSTITUTIONAL: Well appearing, well nourished, awake, alert, oriented to person, place, time/situation and in no apparent distress. HENMT: Airway patent, ears with clear tympanic membranes bilaterally. Nasal mucosa clear. Mouth with normal mucosa. Throat has no vesicles, (more content not included)... Normal [facility] Provider Note - ED v2 This report has be en cancelled. Normal [facility] Initial Visit (Pain Medicine )on 01-23-2020 Initial Visit (Pain Medicine) Chief Complaint Back Pain FUV for R T9-11 MB RFA 12-09-19. 100% relief for 1 mon. Thanksgiving, the pain was back full force. 09/25 today. Mid R back. This is a 34-year-old female here for a follow-up appointment for chief complaint of right-sided mid to low back pain. At her last visit she underwent a right T9 through T11 medial branch RFA. She reports 100 percent relief. She reports that she was doing very well up until Thanksgiving when she started to have some pain in the region again. She states it is a burning sensation that is worse with standing and walking. She can not recall any trigger for this onset of pain. She notes that she has a history of kidney stones but can't tell us that or her back. She denies left-sided pain. She denies pain in the extremities nor does she have numbness, tingling, weakness, or loss of bladder or bowel control. The patient's past medical, social, and family history along with medications and allergies are available and were reviewed. Reference Documentation See scanned note Review of systems . History of Present Illness On a scale of 0 to 10, the patient rates the pain at 8. Pain Location: mid back pain. Pain Quality: Burning and Cramping. Timing/Duration: Intermittent and > 12 weeks duration. Advance directives: Living Will: No living will on file. Healthcare POA: No healthcare proxy on file. Domestic Violence Screen: Does not feel threatened or abused physically, emotionally or sexually. Do you feel UNSAFE? The patient feels safe in the home. Depression/Suicide Screening: She does not have a risk of suicide. She has not had thoughts of harming others. Review of Systems All 13 systems were reviewed and are within normal levels except as noted below or per HPI. Positive and pertinent negative responses are noted below or in the HPI. Active Problems Common migraine (346.10) (G43.009) Fibromyalgia (729.1) (M79.7) Headache (784.0) (R51.9) IBS (irritable bowel syndrome) (564.1) (K58.9) Kidney stones (592.0) (N20.0) Migraines (346.90) (G43.909) Muscle spasm (728.85) (M62.838) Seizures (780.39) (R56.9) Thoracic back pain (724.1) (M54.6) Thoracic spondylosis (721.2) (M47.814) Past Medical History History of Anxiety (300.00) (F41.9) History of asthma (V12.69) (Z87.09) History of hypoglycemia (V12.29) (Z86.39) Surgical History History of Medial branch block RT T9-11 MBB History of Medial branch block RT T911 MBB History of Radiofrequency ablation Rt T9-11 MB RFA Family History Family history of cerebrovascular accident (CVA) (V17.1) (Z82.3) Family history of hyperlipidemia (V18.19) (Z83.438) Family history of hypertension (V17.49) (Z82.49) Social History Never a smoker No advance directives (V49.89) (Z78.9) No alcohol use No illicit drug use Allergies codeine Recorded By: Simone Manzano; 07/02/2016 8:56:57 AM Flagyl Recorded By: Simone Manzano; 07/02/2016 8:59:14 AM NSAIDs Recorded By: Meme Love; 09/01/2019 8:20:12 AM Additional reactions - NO NOT GIVE Shellfish Hives;; Recorded By: Mmee Love; 09/01/2019 8:20:12 AM Current Meds Gabapentin 800 MG Oral Tablet; TAKE 1 TABLET 3 TIMES DAILY; Therapy: [id number] to (Evaluate:13May2020) Requested for: [id number]; Last Rx:[id number] Ordered Rx By: Benitez Eubanks; Dispense: 30 Days ; #:90 Tablet; Refill: 5;For: Fibromyalgia; MICHELE = N; Verified Transmission to [facility] #44; Last Updated By: Oralia Brown; 11/15/2019 8:28:17 AM tiZANidine HCl - 4 MG Oral Tablet; TAKE 1 TABLET 3 times daily; Therapy: [id number] to (Evaluate:28Feb2020) Requested for: [id number]; Last Rx:[id number] Ordered Rx By: Mesha Garcia; Dispense: 30 Days ; #:90 Tablet; Refill: 5;For: Muscle spasm; MICHELE = N; Verified Transmission to [facility] #44; Last Updated By: Latisha Rabago; 11/15/2019 8:08:14 AM ALPRAZolam 0.5 MG Oral Tablet; Therapy: [id number] to Recorded Dispense: 0 Days ; #: Sufficient Tablet; Refill: 0; MICHELE = N; Record; Last Updated By: Latisha Rabago; 11/15/2019 8:08:14 AM hydroCHLOROthiazide 12.5 MG Oral Tablet; TAKE 1 TABLET DAILY; Therapy: (Recorded:[id number]) to Recorded Dispense: 0 Days ; #: Sufficient Tablet; Refill: 0; MICHELE = N; Record; Last Updated By: Myriam Garza; 01/23/2020 8:18:44 AM Microgestin 1/20 1-20 MG-MCG Oral Tablet; TAKE 1 TABLET DAILY; Therapy: (Recorded:[id number]) to Recorded Dispense: 0 Days ; #: Sufficient X 21 Tablet Pack; Refill: 0; MICHELE = N; Record; Last Updated By: Latisha Rabago; 11/15/2019 8:08:14 AM Ondansetron 4 MG Oral Tablet Disintegrating; Therapy: [id number] to Recorded Dispense: 0 Days ; #: Sufficient Tablet; Refill: 0; MICHELE = N; Record; Last Updated By: Latisha Rabago; 11/15/2019 8:08:14 AM Promethazine HCl - 25 MG Oral Tablet; Therapy: [id number] to Recorded Dispense: 0 Days ; #: Sufficient Tablet; Refill: 0; MICHELE = N; Record; Last Updated By: Latisha Rabago; 11/15/2019 8:08:14 AM Toradol Oral (more content not included)... Normal [facility] Established Visit (Pain Medi cine)on 11-15-2019 Established Visit (Pain Medicine) Chief Complaint Back Pain F/U RIGHT T9-11 MBB 90% RELIEF X 2 WEEKS, WENT FROM HAVING THE CRAMPING PAIN DAILY TO ONCE A WEEK ON THE RIGHT UPPER BACK , SHE NOTICES IT MORE WHEN SHE IS STANDING FOR LONG PERIODS OF TIME BUT NOT MUCH WHEN SHE TWISTS, SHE CAN LAY ON HER STOMACH AND NOT GET THE CRAMP, SCORE TODAY 4/10 This is a 33-year-old female here for a follow-up appointment for chief complaint of right-sided mid back pain. At her last visit she underwent a confirmatory set of right-sided T9 through T11 medial branch blocks. She again had 90% immediate pain relief. She is still doing better than she was prior to the injections, but her symptoms are returning. She would like to move forward with more definitive treatment. She is still using gabapentin and tizanidine but would like to try him back down after the RFA. She denies additional neurologic symptoms or issues with bladder or bowel control. The patient's past medical, social, and family history along with medications and allergies are available and were reviewed. Reference Documentation See scanned note REVIEW OF SYSTEMS/ OPIOID RISK TOOL. History of Present Illness Pain Location: Upper Back Pain. Pain Quality: Cramping. Improved Controlled Substance: I have personally reviewed the OARRS report for KENDALL DANIEL. I have considered the risks of abuse, dependence, addiction and diversion. Exacerbating Factors: standing. Alleviating Factors: Repositioning, Other: ___. 24 Hour Behavior: Symptoms are the same in the am. Symptoms are the same as the day progresses. Symptoms are the same in the pm. Symptoms are the same when lying down. Patient Education:1 Discussed new medication and side effects1 . Inj. edu. verbilized by patient to nurse.1 . 1 Amended By: Annetta Hess; Nov 15 2019 9:07 AM ESTReview of Systems All 13 systems were reviewed and are within normal levels except as noted below or per HPI. Positive and pertinent negative responses are noted below or in the HPI. Active Problems Common migraine (346.10) (G43.009) Fibromyalgia (729.1) (M79.7) Headache (784.0) (R51) IBS (irritable bowel syndrome) (564.1) (K58.9) Kidney stones (592.0) (N20.0) Migraines (346.90) (G43.909) Muscle spasm (728.85) (M62.838) Seizures (780.39) (R56.9) Thoracic back pain (724.1) (M54.6) Thoracic spondylosis (721.2) (M47.814) Past Medical History History of Anxiety (300.00) (F41.9) History of asthma (V12.69) (Z87.09) History of hypoglycemia (V12.29) (Z86.39) Surgical History History of Medial branch block RT T9-11 MBB History of Medial branch block RT T911 MBB Family History Family history of cerebrovascular accident (CVA) (V17.1) (Z82.3) Family history of hyperlipidemia (V18.19) (Z83.438) Family history of hypertension (V17.49) (Z82.49) Social History Never a smoker No advance directives (V49.89) (Z78.9) No alcohol use No illicit drug use Allergies codeine Recorded By: Simone Manzano; 07/02/2016 8:56:57 AM Flagyl Recorded By: Simone Manzano; 07/02/2016 8:59:14 AM NSAIDs Recorded By: Meme Love; 09/01/2019 8:20:12 AM Additional reactions - NO NOT GIVE Shellfish Hives;; Recorded By: Meme Love; 09/01/2019 8:20:12 AM Current Meds Gabapentin 800 MG Oral Tablet; TAKE 1 TABLET 3 TIMES DAILY; Therapy: 66Jfm1780 to (Evaluate:54Gyu3867) Requested for: 51Env8799; Last Rx:[id number] Ordered Rx By: Benitez Eubanks; Dispense: 30 Days ; #:90 Tablet; Refill: 5; For: Fibromyalgia; MICHELE = N; Verified Transmission to [facility] #[facility]; Last Updated By: Superfeedr; 11/15/2019 8:08:14 AM tiZANidine HCl - 4 MG Oral Tablet; TAKE 1 TABLET 3 times daily; Therapy: 58Fmz4358 to (Evaluate:10Glh0604) Requested for: 40Dhu8187; Last Rx:[id number] Ordered Rx By: Mesha Garcia; Dispense: 30 Days ; #:90 Tablet; Refill: 5; For: Muscle spasm; MICHELE = N; Verified Transmission to [facility] #44; Last Updated By: Superfeedr; 11/15/2019 8:08:14 AM ALPRAZolam 0.5 MG Oral Tablet; Therapy: 05Ogw4335 to Recorded Dispense: 0 Days ; #: Sufficient Tablet; Refill: 0; MICHELE = N; Record; Last Updated By: Latisha Rabago; 11/15/2019 8:08:14 AM Microgestin 1/20 1-20 MG-MCG Oral Tablet; TAKE 1 TABLET DAILY; Therapy: (Recorded:[id number]) to Recorded Dispense: 0 Days ; #: Sufficient X 21 Tablet Pack; Refill: 0; MICHELE = N; Record; Last Updated By: Latisha Rabago; 11/15/2019 8:08:14 AM Ondansetron 4 MG Oral Tablet Disintegrating; Therapy: 01Dec2015 to Recorded Dispense: 0 Days ; #: Sufficient Tablet; Refill: 0; MICHELE = N; Record; Last Updated By: Latisha Rabago; 11/15/2019 8:08:14 AM Promethazine HCl - 25 MG Oral Tablet; Therapy: 22Oct2015 to Recorded Dispense: 0 Days ; #: Sufficient Tablet; Refill: 0; MICHELE = N; Record; Last Updated By: Latisha Rabago; 11/15/2019 8:08:14 AM Spironolactone 25 MG Oral Tablet; TAKE 1 TABLET DAILY; Therapy: (Recorded:[id number]) to Recorded Dispense: 0 Days ; #: Suffi (more content not included)... Normal [facility] CBC With Platelet and Differ entialon 10-22-2019 Absolute NRBC's = 0.0 Normal [facility] Comment on above: Performed By: #### C BCX, LACTV, MG, CMP, LIPAS #### [facility] CLIA # [id number] [address] [place] [address] Basophils (Bld) [#/Vol] = 0.0 Normal 0.0-0.1 [facility] Comment on above: Performed By: #### C BCX, LACTV, MG, CMP, LIPAS #### [facility] CLIA # [id number] [address] [place] [address] Basophils/100 WBC (Bld) 1 % Normal 0-1 [facility] Comment on above: Performed By: #### C BCX, LACTV, MG, CMP, LIPAS #### [facility] CLIA # [id number] [address] [place] [address] Eosinophils (Bld) [#/Vol] = 0 Normal 0-5 [facility] Comment on above: Performed By: #### C BCX, LACTV, MG, CMP, LIPAS #### [facility] CLIA # [id number] [address] [place] [address] Eosinophils (Bld) [#/Vol] = 0.0 Normal 0.0-0.4 [facility] Comment on above: Performed By: #### C BCX, LACTV, MG, CMP, LIPAS #### [facility] CLIA # [id number] [address] [place] [address] Erythrocyte distribution width (RBC) [Ratio] 12.9 % Normal 11.7-14.4 [facility] Comment on above: Performed By: #### C BCX, LACTV, MG, CMP, LIPAS #### [facility] CLIA # [id number] [address] [facility] [place] [address] Hematocrit (Bld) [Volume fraction] 43 % Normal 37.0-47.0 [facility] Comment on above: Performed By: #### C BCX, LACTV, MG, CMP, LIPAS #### [facility] CLIA # [id number] [address] [place] [address] Hemoglobin (Bld) [Mass/Vol] 14 g/dL Normal 11.5-16.0 [facility] Comment on above: Performed By: #### C BCX, LACTV, MG, CMP, LIPAS #### [facility] CLIA # [id number] [address] [facility] [place] [address] Immature granulocytes (Bld) [#/Vol] 0.1 10*3/uL Normal [facility] Comment on above: Performed By: #### C BCX, LACTV, MG, CMP, LIPAS #### [facility] CLIA # [id number] [address] [place] [address] Immature granulocytes (Bld) [#/Vol] 1 10*3/uL Normal [facility] Comment on above: Performed By: #### C BCX, LACTV, MG, CMP, LIPAS #### [facility] CLIA # [id number] [address] [place] [address] Lymphocytes (Bld) [#/Vol] 23 10*3/uL Normal 13-44 [facility] Comment on above: Performed By: #### C BCX, LACTV, MG, CMP, LIPAS #### [facility] CLIA # [id number] [address] [place] [address] 399[address] Lymphocytes (Bld) [#/Vol] 1.1 10*3/uL Normal 0.9-2.5 [facility] Comment on above: Performed By: #### C BCX, LACTV, MG, CMP, LIPAS #### [facility] CLIA # [id number] 601 [facility] [address] [place] [address] 23528 MCH (RBC) [Entitic mass] 29.1 pg Normal 27.0-31.0 [facility] Comment on above: Performed By: #### C BCX, LACTV, MG, CMP, LIPAS #### [facility] CLIA # [id number] [address] [place] [address] 18555 MCHC (RBC) [Mass/Vol] 32.6 g/dL Normal 31.5-36.0 [facility] Comment on above: Performed By: #### C BCX, LACTV, MG, CMP, LIPAS #### [facility] CLIA # [id number] [address] [place] [address] 31724 MCV (RBC) [Entitic vol] 89.4 fL Normal 82.0-101.0 [facility] Comment on above: Performed By: #### C BCX, LACTV, MG, CMP, LIPAS #### [facility] CLIA # [id number] [address] [place] [address]11 Monocytes (Bld) [#/Vol] 0.2 10*3/uL Normal 0.1-1.0 [facility] Comment on above: Performed By: #### C BCX, LACTV, MG, CMP, LIPAS #### [facility] CLIA # [id number] [address] [place] [address] Monocytes (Bld) [#/Vol] 4 10*3/uL Low 5-9 [facility] Comment on above: Performed By: #### C BCX, LACTV, MG, CMP, LIPAS #### [facility] CLIA # [id number] [address] [place] [address] Neutrophils (Bld) [#/Vol] 3.4 10*3/uL Normal 2.1-6.5 [facility] Comment on above: Performed By: #### C BCX, LACTV, MG, CMP, LIPAS #### [facility] CLIA # [id number] [address] [place] [address] 21678 Neutrophils (Bld) [#/Vol] 70 10*3/uL Normal 39-75 [facility] Comment on above: Performed By: #### C BCX, LACTV, MG, CMP, LIPAS #### [facility] CLIA # [id number] [address] [place] [address] Nucleated RBC (Bld) [#/Vol] = 0 Normal [facility] Comment on above: Performed By: #### C BCX, LACTV, MG, CMP, LIPAS #### [facility] CLIA # [id number] [address] [place] [address] 57766 Platelet mean volume (Bld) [Entitic vol] 10.7 fL Normal 8.2-11.4 [facility] Comment on above: Performed By: #### C BCX, LACTV, MG, CMP, LIPAS #### [facility] CLIA # [id number] [address] [place] [address] Platelets (Bld) [#/Vol] 172 10*3/uL Normal 130. 0-400. 0 [facility] Comment on above: Performed By: #### C BCX, LACTV, MG, CMP, LIPAS #### [facility] CLIA # [id number] [address] [facility] [address] [place] [address] RBC (Bld) [#/Vol] 4.81 10*6/uL Normal 4.20-5.40 [facility] Comment on above: Performed By: #### C BCX, LACTV, MG, CMP, LIPAS #### [facility] CLIA # [id number] [address] [place] [address] WBC (Bld) [#/Vol] 4.9 10*3/uL Normal 4.4-10.2 [facility] Comment on above: Performed By: #### C BCX, LACTV, MG, CMP, LIPAS #### [facility] CLIA # [id number] [address] [place] [address] Comprehensive Metabolic Pane bladimir 10-22-2019 GFR > 60 Normal >60 [facility] Comment on above: Performed By: #### C BCX, LACTV, MG, CMP, LIPAS #### [facility] CLIA # [id number] [address] [place] [address] Albumin [Mass/Vol] 3.3 g/dL Low 3.4-5.0 [facility] Comment on above: Performed By: #### C BCX, LACTV, MG, CMP, LIPAS #### [facility] CLIA # [id number] [address] [place] [address] Albumin/Globulin [Mass ratio] 0.9 {ratio} Normal [facility] Comment on above: Performed By: #### C BCX, LACTV, MG, CMP, LIPAS #### [facility] CLIA # [id number] [address] [place] [id number] ALP [Catalytic activity/Vol] 51 U/L Normal 46-116 [facility] Comment on above: Performed By: #### C BCX, LACTV, MG, CMP, LIPAS #### [facility] CLIA # [id number] [address] [place] [address] ALT [Catalytic activity/Vol] 23 U/L Normal 14-59 [facility] Comment on above: Performed By: #### C BCX, LACTV, MG, CMP, LIPAS #### [facility] CLIA # [id number] [address] [facility] [address] [place] [address]2335 Anion gap [Moles/Vol] 12.7 mmol/L Normal [facility] Comment on above: Performed By: #### C BCX, LACTV, MG, CMP, LIPAS #### [facility] CLIA # [id number] [address] [address] AST [Catalytic activity/Vol] 18 U/L Normal 15-37 [facility] Comment on above: Performed By: #### C BCX, LACTV, MG, CMP, LIPAS #### [facility] CLIA # [id number] [address] [place] [phone] Bilirubin Ql (U) = 0.29 Normal 0.20-1.00 [facility] Comment on above: Result Comment: Use of this assay method is not recommended for patients undergoing treatment with eltrombopag due to potential for falsely elevated results. Performed By: #### C BCX, LACTV, MG, CMP, LIPAS #### [facility] CLIA # [id number] [address] [address] Calcium [Mass/Vol] 8.5 mg/dL Normal 8.5-10.1 [facility] Comment on above: Performed By: #### C BCX, LACTV, MG, CMP, LIPAS #### [facility] CLIA # [id number] [address] [address] Chloride [Moles/Vol] 108 mmol/L High 98-107 [facility] Comment on above: Performed By: #### C BCX, LACTV, MG, CMP, LIPAS #### [facility] CLIA # [id number] [address] [place] [address] 16336 CO2 [Moles/Vol] 25.6 mmol/L Normal 21.0-32.0 [facility] Comment on above: Performed By: #### C BCX, LACTV, MG, CMP, LIPAS #### [facility] CLIA # [id number] [address] [place] [address]8469 Creatinine [Mass/Vol] 1.07 mg/dL High 0.55-1.02 [facility] Comment on above: Performed By: #### C BCX, LACTV, MG, CMP, LIPAS #### [facility] CLIA # [id number] [address] [place] [address] Globulin (S) [Mass/Vol] 3.5 g/dL Normal [facility] Comment on above: Performed By: #### C BCX, LACTV, MG, CMP, LIPAS #### [facility] CLIA # [id number] [address] [place] [address] 26132 Glucose [Mass/Vol] 90 mg/dL Normal 70-110 [facility] Comment on above: Performed By: #### C BCX, LACTV, MG, CMP, LIPAS #### [facility] CLIA # [id number] [address] [place] [address] NonAfrican Cymro GFR = 59 Normal >60 [facility] Comment on above: Performed By: #### C BCX, LACTV, MG, CMP, LIPAS #### [facility] CLIA # [id number] [address] [place] [address] Osmolality [Osmolality] 283 mosm/kg Normal [facility] Comment on above: Performed By: #### C BCX, LACTV, MG, CMP, LIPAS #### [facility] CLIA # [id number] [address] [place] [address] Potassium [Moles/Vol] 4.3 mmol/L Normal 3.5-5.1 [facility] Comment on above: Performed By: #### C BCX, LACTV, MG, CMP, LIPAS #### [facility] CLIA # [id number] [address] [place] [address] 61506 Protein [Mass/Vol] 6.8 g/dL Normal 6.4-8.2 [facility] Comment on above: Performed By: #### C BCX, LACTV, MG, CMP, LIPAS #### [facility] CLIA # [id number] [address] [place] [address] 04363 Sodium [Moles/Vol] 142 mmol/L Normal 136-145 [facility] Comment on above: Performed By: #### C BCX, LACTV, MG, CMP, LIPAS #### [facility] CLIA # [id number] [address] [place] [address] 21908 Urea nitrogen [Mass/Vol] 13 mg/dL Normal 7-18 [facility] Comment on above: Performed By: #### C BCX, LACTV, MG, CMP, LIPAS #### [facility] CLIA # [id number] [address] [place] [address] 33993 Urea nitrogen/Creatinine [Mass ratio] 12.1 mg/mg Normal [facility] Comment on above: Performed By: #### C BCX, LACTV, MG, CMP, LIPAS #### [facility] CLIA # [id number] [address] [place] [address] 60674 HCG Urine Qualitativeon Beta HCG ( test) Ql (U) Negative Normal Negative [facility] Comment on above: Performed By: #### H CGQU #### [facility] CLIA # [id number] [address] [place] [address] Lactic Acid, Venouson 2019 Lactic Acid, Venous = 1.60 Normal 0.40-2.00 [facility] Comment on above: Performed By: #### C BCX, LACTV, MG, CMP, LIPAS #### [facility] CLIA # [id number] [address] [place] [address] 45189 Lipaseon 10-22-2019 Lipase [Catalytic activity/Vol] 129 U/L Normal 73-393 [facility] Comment on above: Performed By: #### C BCX, LACTV, MG, CMP, LIPAS #### [facility] CLIA # [id number] [address] [place] [address] Magnesiumon 10-22-2019 Magnesium [Mass/Vol] 1.9 mg/dL Normal 1.8-2.4 [facility] Comment on above: Performed By: #### C BCX, LACTV, MG, CMP, LIPAS #### [facility] CLIA # [id number] [address] [place] [address] Urinalysis w/Microsopic if I ndicatedon 10-22-2019 Appearance (U) CLEAR Normal Clear [facility] Comment on above: Performed By: #### U A #### [facility] CLIA # [id number] [address] [place] [address] Bilirubin [Mass/Vol] Negative Normal Negative [facility] Comment on above: Performed By: #### U A #### [facility] CLIA # [id number] [address] [place] [address] Blood Negative Normal Negative [facility] Comment on above: Performed By: #### U A #### [facility] CLIA # [id number] [address] [place] [address] Color (U) YELLOW Normal [facility] Comment on above: Performed By: #### U A #### [facility] CLIA # [id number] [address] [place] [address] Glucose [Mass/Vol] Normal Normal Normal [facility] Comment on above: Performed By: #### U A #### [facility] CLIA # [id number] [address] [place] [address] Ketones Ql (U) Small Abnormal Negative [facility] Comment on above: Performed By: #### U A #### [facility] CLIA # [id number] [address] [place] [address] Leukocytes Esterase Negative Normal Negative [facility] Comment on above: Performed By: #### U A #### [facility] CLIA # [id number] [address] [place] [address] Nitrite Ql (U) Negative Normal Negative [facility] Comment on above: Performed By: #### U A #### [facility] CLIA # [id number] [address] [place], [place] [address] pH (Bld) = 6.0 Normal 5.0 - 9.0 [facility] Comment on above: Performed By: #### U A #### [facility] CLIA # [id number] [address] [facility] [address] [place] [address] Protein (U) [Mass/Vol] Negative Normal Negative [facility] Comment on above: Performed By: #### U A #### [facility] CLIA # [id number] [address] [facility] [address] [place], [place] [address] Specific gravity (U) [Rel density] = 1.015 Normal 1.010 - 1.030 [facility] Comment on above: Performed By: #### U A #### [facility] CLIA # [id number] [address] [facility] [address] [place], [place] [address] Urobilinogen Qn (U) Normal Normal Normal [facility] Comment on above: Performed By: #### U A #### [facility] CLIA # [id number] [address] [facility] [address] [place], [place] [address] Blood product type Nom (BPU) Clean catch Normal [facility] Comment on above: Performed By: #### U A #### [facility] CLIA # [id number] [address] [facility] [address] [place] [address] Established Visit (Pain Medi cine)on 10-17-2019 Established Visit (Pain Medicine) Chief Complaint FUV from R T9-11 MBB reports 80% relief for 2 days then pain is as bad or worse than before.today having rt side Rib pain rates 8/10 reports she takes baclofen in the day time and tizanidine at night as it makes her tired. This is a 33-year-old female here for a follow-up appointment for chief complaint of right-sided mid back pain. At her last visit she underwent a set of right sided thoracic medial branch blocks. She reports over 80% relief immediately after procedure. She reports the relief was short-lived and after a day or 2 her pain levels were back to baseline. She denies additional neurologic symptoms or issues with bladder or bowel control. She denies significant left-sided symptoms. The patient's past medical, social, and family history along with medications and allergies are available and were reviewed. Reference Documentation See scanned note Review of systems . History of Present Illness On a scale of 0 to 10, the patient rates the pain at 8. Pain Location: rt side ribs. Pain Quality: Aching and Cramping. Timing/Duration: Constant and > 12 weeks duration. Patient Education: Discussed new medication and side effects. Pt. had to leave prior to being educated. This is not her first injection. Advance directives: Living Will: No living will on file. Healthcare POA: No healthcare proxy on file. Domestic Violence Screen: Does not feel threatened or abused physically, emotionally or sexually. Do you feel UNSAFE? The patient feels safe in the home. Depression/Suicide Screening: She has no thoughts of harming self. She has not had thoughts of harming others. Review of Systems All 13 systems were reviewed and are within normal levels except as noted below or per HPI. Positive and pertinent negative responses are noted below or in the HPI. Active Problems Common migraine (346.10) (G43.009) Fibromyalgia (729.1) (M79.7) Headache (784.0) (R51) IBS (irritable bowel syndrome) (564.1) (K58.9) Kidney stones (592.0) (N20.0) Migraines (346.90) (G43.909) Muscle spasm (728.85) (M62.838) Seizures (780.39) (R56.9) Thoracic back pain (724.1) (M54.6) Thoracic spondylosis (721.2) (M47.814) Past Medical History History of Anxiety (300.00) (F41.9) History of asthma (V12.69) (Z87.09) History of hypoglycemia (V12.29) (Z86.39) Surgical History History of Medial branch block RT T9-11 MBB Family History Family history of cerebrovascular accident (CVA) (V17.1) (Z82.3) Family history of hyperlipidemia (V18.19) (Z83.438) Family history of hypertension (V17.49) (Z82.49) Social History Never a smoker No advance directives (V49.89) (Z78.9) No alcohol use No illicit drug use Allergies codeine Recorded By: Simone Manzano; 07/02/2016 8:56:57 AM Flagyl Recorded By: Simone Manzano; 07/02/2016 8:59:14 AM NSAIDs Recorded By: Meme Love; 09/01/2019 8:20:12 AM Additional reactions - NO NOT GIVE Shellfish Hives;; Recorded By: Meme Love; 09/01/2019 8:20:12 AM Current Meds Gabapentin 800 MG Oral Tablet; TAKE 1 TABLET 3 TIMES DAILY; Therapy: 83Whd7345 to (Evaluate:48Tgd6794) Requested for: 77Ogo0896; Last Rx:[id number] Ordered Rx By: Benitez Eubanks; Dispense: 30 Days ; #:90 Tablet; Refill: 5; For: Fibromyalgia; MICHELE = N; Verified Transmission to [facility] #44; Last Updated By: Superfeedr; 05/30/2019 12:16:40 PM tiZANidine HCl - 4 MG Oral Tablet; TAKE 1 TABLET 3 times daily; Therapy: 97Suj4182 to (Evaluate:51Bnf5984) Requested for: 98Xwk3538; Last Rx:[id number] Ordered Rx By: Mesha Garcia; Dispense: 30 Days ; #:90 Tablet; Refill: 5; For: Muscle spasm; MICHELE = N; Verified Transmission to [facility] #44; Last Updated By: Superfeedr; 09/01/2019 8:29:16 AM predniSONE 10 MG Oral Tablet; Take 1 tablet daily; Therapy: 38Qkn2868 to (Evaluate:41Mlc6644) Requested for: 76Def6332; Last Rx:[id number] Ordered Rx By: Benitez Eubanks; Dispense: 5 Days ; #:5 Tablet; Refill: 0; For: Thoracic spondylosis; MICHELE = N; Verified Transmission to [facility] #44; Last Updated By: Oralia Brown; 09/20/2019 6:22:33 PM ALPRAZolam 0.5 MG Oral Tablet; Therapy: 67Anl1069 to Recorded Dispense: 20 Days ; #:60; Refill: 0; MICHELE = N; Record; Last Updated By: Simone Manzano; 07/02/2016 8:47:55 AM Microgestin 1 1-20 MG-MCG Oral Tablet; TAKE 1 TABLET DAILY; Therapy: (Recorded:63Ahx2320) to Recorded Dispense: 0 Days ; #: Sufficient X 21 Tablet Pack; Refill: 0; MICHELE = N; Record; Last Updated By: Trudi Pryor; 05/30/2019 10:31:01 AM Ondansetron 4 MG Oral Tablet Disintegrating; Therapy: 18Bnv2074 to Recorded Dispense: 4 Days ; #:15; Refill: 0; MICHELE = N; Record; Last Updated By: Simone Manzano; 07/02/2016 8:47:55 AM Promethazine HCl - 25 MG Oral Tablet; Therapy: 51Hwo8248 to Recorded Dispense: 8 Days ; #:30; Refill: 0; MICHELE = N; Record; Last Updated By: Simone Manzano; 07/02/2016 8:47:55 AM (more content not included)... Normal [facility] Otheron 10-07-2019 Please click on the link to view the study images Normal [facility] Work Phone: Hematologyon 09-02-2019 Hematocrit (Bld) [Volume fraction] 41.0 % See Below [facility] Work Phone: Comment on above: Reference Range: 36. 0 - 46.0 Ordering Provider: Rashid BAILEY [address] Hemoglobin (Bld) [Mass/Vol] 13.5 g/dL See Below [facility]: Comment on above: Reference Range: 12. 0 - 16.0 Ordering Provider: Rashid Walton MCV (RBC) [Entitic vol] 90 fL 80 - 100 [facility] Work Phone: Comment on above: Ordering Provider: Rashid Walton Platelets (Bld) [#/Vol] 213 {x10E9/L} 150 - 450 -[facility] Work Phone: Comment on above: Ordering Provider: Rashid Walton RBC (Bld) [#/Vol] 4.54 {x10E12/L} See Below -[facility] Work Phone: Comment on above: Reference Range: 4.0 0 - 5.20 Ordering Provider: Rashid Walton WBC (Bld) [#/Vol] 6.5 {x10E9/L} 4.4 - 11.3 [facility] Work Phone: Comment on above: Ordering Provider: Rashid Walton Lipase, Serumon 09-02-2019 Lipase [Catalytic activity/Vol] 41 U/L 9 - 82 -Pain [facility] Work Phone: Comment on above: Venipuncture immedia tely after or during the administration of Metamizole may lead to falsely low results. Testing should be performed immediately prior to Metamizole dosing. V-[id number]-u-benzoquinone imine (metabolite of Acetaminophen) will generate erroneously low results in samples for patients that have taken toxic doses of acetaminophen. Ordering Provider: Rashid Walton Metabolic Panelon 09-02-2019 ALP [Catalytic activity/Vol] 52 U/L 33 - 110 -[facility] Work Phone: Comment on above: Ordering Provider: Rashid Walton Anion gap [Moles/Vol] 11 mmol/L 10 - 20 - Pain [facility] Work Phone: Comment on above: Ordering Provider: Rashid BAILEY [id number] Bilirubin [Mass/Vol] 0.4 mg/dL 0.0 - 1.2 [facility] Work Phone: Comment on above: Ordering Provider: Rashid BAILEY [id number] Calcium [Mass/Vol] 9.5 mg/dL 8.6 - 10.3 [facility] Work Phone: Comment on above: Ordering Provider: Rashid BAILEY 55898 Chloride [Moles/Vol] 107 mmol/L 98 - 107 [facility] Work Phone: Comment on above: Ordering Provider: Rashid BAILEY 23040 CO2 [Moles/Vol] 25 mmol/L 21 - 32 [facility] Work Phone: Comment on above: Ordering Provider: Rashid BAILEY 68334 Creatinine [Mass/Vol] 0.98 mg/dL See Below [facility] Work Phone: Comment on above: Reference Range: 0.5 0 - 1.05 Ordering Provider: Rashid BAILEY 28143 Glucose [Mass/Vol] 89 mg/dL 74 - 99 [facility] Work Phone: Comment on above: Ordering Provider: Rashid BAILEY 52472 Potassium [Moles/Vol] 3.6 mmol/L 3.5 - 5.3 [facility] Work Phone: Comment on above: Ordering Provider: Rashid BAILEY 62058 Protein [Mass/Vol] 7.6 g/dL 6.4 - 8.2 [facility] Work Phone: Comment on above: Ordering Provider: Rashid BAILEY 27948 Sodium [Moles/Vol] 139 mmol/L 136 - 145 [facility] Work Phone: Comment on above: Ordering Provider: Rashid BAILEY 51868 Urea nitrogen [Mass/Vol] 12 mg/dL 6 - 23 [facility] Work Phone: Comment on above: Ordering Provider: Rashid Lane19 Other 09-02-2019 US Gallbladder Interpreted by: TAYLOR GILLILAND09/02/19 17:52STUDY:Gallbladder Ultrasound; Completed Time: 09/02/2019 5:15 PM INDICATION: RUQ/upper abdominal pain x 1 month, worse today. Nausea, vomiting,and diarrhea after eating. COMPARISON: US Renal 03/26/2017 ORDERING CLINICIAN:Chon Bailey MD TECHNIQUE:Ultrasound of the right upper quadrant. Multiple images of theabdomen were obtained. FINDINGS: The pancreas demonstrates a normal homogeneous echotexture with thetail not well seen due to overlying bowel gas. The liver demonstrates normal echogenicity. There is no intrahepaticbiliary dilatation. The gallbladder is anechoic. There are no stones. There is nopericholecystic fluid or wall thickening. The common bile ductmeasures 0.2 cm. The right kidney measures 10.7 cm in length. Renal corticalechotexture is normal. There is no hydronephrosis. There is a stonemeasuring 0.5 cm. There are no cysts. IMPRESSION: Right renal stone without hydronephrosis. Concordant with priorimaging from March 2017. Signed by Tl Gilliland MDElectronically signed by: TL GILLILAND 09/02/19 17:52 Normal [facility] Work Phone: Comment on above: Ordering Provider: Rashid Lane19 Albumin BCP dye [Mass/Vol] 4.2 g/dL 3.4 - 5.0 [facility] Work Phone: Comment on above: Ordering Provider: Rashid Lane19 ALT With P-5'-P [Catalytic activity/Vol] 11 U/L 7 - 45 [facility] Work Phone: Comment on above: Patients treated wit h Sulfasalazine may generate falsely decreased results for ALT. Ordering Provider: Rashid Lane19 AST With P-5'-P [Catalytic activity/Vol] 16 U/L 9 - 39 [facility] Work Phone: Comment on above: Ordering Provider: Rashid Lane19 Erythrocyte distribution width (RBC) [Ratio] 12.7 % See Below [facility] Work Phone: Comment on above: Reference Range: 11. 5 - 14.5 Ordering Provider: Rashid BAILEY [id number] MCHC (RBC) [Mass/Vol] 33.0 g/dL See Below [facility] Work Phone: Comment on above: Reference Range: 32. 0 - 36.0 Ordering Provider: Rashid Lane19 >60 >60 [facility] Work Phone: Comment on above: CALCULATIONS OF SAMMI MATED GFR ARE PERFORMED USING THE MDRD STUDY EQUATION FOR THE IDMS-TRACEABLE CREATININE METHODS. CLIN CHEM 2007;53:[id number] Ordering Provider: Rashid Lane19 Provider Communicationon Provider Communication To Whom It May Co ncern This is a 33-year-old female whom I have seen for several years for right-sided mid back pain. She has tried and failed numerous modalities including anti-inflammatories, opiates, membrane stabilizers, muscle relaxants, activity modification, and now a full course of physical therapy. He comes of her intractable pain is medically necessary to proceed with a trial of right-sided T9 through T11 medial branch blocks. Benitez Eubanks M.D. Patient Care Team Care Team MemberRoleSpecialtyOffice Number Unknown, Referring ProviderPrimary Care Provider Quinn COFFEY, MPH, [phone] Leon COFFEY, Moises Payton MD, [phone] Active Problems Problems Common migraine (346.10) (G43.009) Fibromyalgia (729.1) (M79.7) Headache (784.0) (R51) IBS (irritable bowel syndrome) (564.1) (K58.9) Kidney stones (592.0) (N20.0) Migraines (346.90) (G43.909) Muscle spasm (728.85) (M62.838) Seizures (780.39) (R56.9) Thoracic back pain (724.1) (M54.6) Thoracic spondylosis (721.2) (M47.814) Past Medical History Problems History of Anxiety (300.00) (F41.9) History of asthma (V12.69) (Z87.09) History of hypoglycemia (V12.29) (Z86.39) Social History Problems Never a smoker No advance directives (V49.89) (Z78.9) No alcohol use No illicit drug use Family History Problems Family history of cerebrovascular accident (CVA) (V17.1) (Z82.3) : Father Family history of hyperlipidemia (V18.19) (Z83.438) : Father Family history of hypertension (V17.49) (Z82.49) : Father Current Meds Fibromyalgia Gabapentin 800 MG Oral Tablet; TAKE 1 TABLET 3 TIMES DAILY Muscle spasm tiZANidine HCl - 4 MG Oral Tablet; TAKE 1 TABLET 3 times daily Unlinked ALPRAZolam 0.5 MG Oral Tablet Microgestin 1/20 1-20 MG-MCG Oral Tablet; TAKE 1 TABLET DAILY Ondansetron 4 MG Oral Tablet Disintegrating Promethazine HCl - 25 MG Oral Tablet Spironolactone 25 MG Oral Tablet; TAKE 1 TABLET DAILY Toradol Oral 10 MG TABS; TAKE 1 TABLET 3 TIMES DAILY NEEDED FOR PAIN traZODone HCl TABS; TAKE 1 TABLET DAILY Allergies Medication codeine Flagyl NSAIDs Additional reactions - NO NOT GIVE NonMedication Shellfish Signatures Electronically signed by : Benitez Eubanks MD; Sep 02 2019 3:12PM EST (Author) Normal [facility] Urinalysison 09-02-2019 Appearance (U) CLEAR CLEAR [facility] Work Phone: Comment on above: Ordering Provider: Rashid BAILEY [id number] Color (U) Yellow See Below [facility] Work Phone: Comment on above: Reference Range: STR AW,YELLOW Ordering Provider: Rashid BAILEY 03059 Glucose Ql (U) Negative NEGATIVE [facility] Work Phone: Comment on above: Ordering Provider: Rashid Lane19 Ketones Ql (U) Negative NEGATIVE [facility] Work Phone: Comment on above: Ordering Provider: Rashid Walton Leukocyte esterase Test strip Ql (U) Negative NEGATIVE [facility] Work Phone: Comment on above: Ordering Provider: Rashid WHIPPLE LYNN 75443 pH (U) 6.0 [pH] 5.0 - 8.0 [facility] Work Phone: Comment on above: Ordering Provider: Rashid WHIPPLE LYNNARIAS Walton Protein (U) [Mass/Vol] Negative NEGATIVE [facility] Work Phone: Comment on above: Ordering Provider: Rashid Walton RBC (U) [#/Vol] Negative NEGATIVE [facility] Work Phone: Comment on above: Ordering Provider: Rashid Walton Specific gravity (U) [Rel density] 1.014 1 See Below [facility] Work Phone: Comment on above: Reference Range: 1.0 05 - 1.035 Ordering Provider: Rashid WHIPPLE LYNNARIAS Walton Urinalysis Negative NEGATIVE [facility] Work Phone: Comment on above: Ordering Provider: Rashid Walton Urinalysis <2.0 0.0 - 1.9 [facility] Work Phone: Comment on above: Ordering Provider: Rashid WHIPPLE LYNN Isabelle Established Visit (Pain Medi cine)on 09-01-2019 Established Visit (Pain Medicine) Chief Complaint FUV PT had 10 visits was not helping so the Therapist stopped her visits rt side mid back pain radiating into her ribs rates 9/10 nothing is helping the pain describes as a dull ache and cramping. was ordered an injection but her insurance wanted her to complete PT first. wants to discuss Tizanidine would like to increase dose to BID. Reference Documentation See scanned note Review of Systems/ Opioid Risk Tool . History of Present Illness On a scale of 0 to 10, the patient rates the pain at 9. Pain Location: mid back rt side. Pain Quality: Aching, Cramping and Dull. Pain Radiation: into rt ribs. Timing/Duration: Constant and > 12 weeks duration. Goals for Pain Management: Opioid Risk score = 1. Patient Education:1 Discussed new medication and side effects1 . [facility]. edu. completed writen and verbally.1 . Patient is a 33-year-old female with a past medical history significant for fibromyalgia, myalgia, and thoracic spondylosis. She continues to use tizanidine 4 mg with some improvement. She states that it does help her. Unfortunately, she was not able to get the medial branch block that we had recommended. In terms recommended physical therapy. She underwent physical therapy during the month of June and July 2019 without any improvement. She continues to have some right-sided lower back/flank pain that she rates a 9/10. It is a dull, aching, throbbing type discomfort that is present all the time. She is very bothered by this. She would just like something to give her some relief. Anti-inflammatory medications do not help. Physical therapy?full course now has not helped. Advance directives: Living Will: No living will on file. Healthcare POA: No healthcare proxy on file. Domestic Violence Screen: Does not feel threatened or abused physically, emotionally or sexually. Do you feel UNSAFE? The patient feels safe in the home. Depression/Suicide Screening: During the past 2 weeks, the patient has not felt down, depressed or hopeless. During the past 2 weeks, the patient has not felt little interest or pleasure in doing things. She has no thoughts of harming self. She has not had thoughts of harming others. Single alcohol screening question: Patient Declined/Screening not indicated. Single substance abuse screening question: Patient Declined/Screening not indicated. 1 Amended By: Annetta Hess; Sep 01 2019 8:41 AM ESTReview of Systems All 13 systems were reviewed and are within normal levels except as noted below or per HPI. Positive and pertinent negative responses are noted below or in the HPI. Active Problems Common migraine (346.10) (G43.009) Fibromyalgia (729.1) (M79.7) Headache (784.0) (R51) IBS (irritable bowel syndrome) (564.1) (K58.9) Kidney stones (592.0) (N20.0) Migraines (346.90) (G43.909) Muscle spasm (728.85) (M62.838) Seizures (780.39) (R56.9) Thoracic back pain (724.1) (M54.6) Thoracic spondylosis (721.2) (M47.814) Past Medical History History of Anxiety (300.00) (F41.9) History of asthma (V12.69) (Z87.09) History of hypoglycemia (V12.29) (Z86.39) Family History Family history of cerebrovascular accident (CVA) (V17.1) (Z82.3) Family history of hyperlipidemia (V18.19) (Z83.438) Family history of hypertension (V17.49) (Z82.49) Social History Never a smoker No advance directives (V49.89) (Z78.9) No alcohol use No illicit drug use Allergies codeine Recorded By: Simone Manzano; 07/02/2016 8:56:57 AM Flagyl Recorded By: Simone Manzano; 07/02/2016 8:59:14 AM NSAIDs Recorded By: Meme Love; 09/01/2019 8:20:12 AM Additional reactions - NO NOT GIVE Shellfish Hives;; Recorded By: Meme Love; 09/01/2019 8:20:12 AM Current Meds Gabapentin 800 MG Oral Tablet; TAKE 1 TABLET 3 TIMES DAILY; Therapy: [id number] to (Evaluate:[id number]) Requested for: [id number]; Last Rx:[id number] Ordered Rx By: Benitez Eubanks; Dispense: 30 Days ; #:90 Tablet; Refill: 5; For: Fibromyalgia; MICHELE = N; Verified Transmission to [facility]; Last Updated By: Oralia Brown; 05/30/2019 12:16:40 PM tiZANidine HCl - 4 MG Oral Tablet; TAKE 1 TABLET Bedtime PRN; Therapy: [id number] to (Last Rx:[id number]) Requested for: [id number] Ordered Rx By: Benitez Eubanks; Dispense: 0 Days ; #:30 Tablet; Refill: 5; For: Muscle spasm; MICHELE = N; Verified Transmission to [facility] #44; Last Updated By: Oralia Brown; 09/01/2019 8:29:16 AM ALPRAZolam 0.5 MG Oral Tablet; Therapy: [id number] to Recorded Dispense: 20 Days ; #:60; Refill: 0; MICHELE = N; Record; Last Updated By: Simone Manzano; 07/02/2016 8:47:55 AM Microgestin 03/07 1-20 MG-MCG Oral Tablet; TAKE 1 TABLET DAILY; Therapy: (Recorded:[id number]) to Recorded Dispense: 0 Days ; #: Sufficient X 21 Tablet Pack; Refill: 0; MICHELE = N; Record; Last Updated By: Trudi Pryor; 05/30/2019 10:31:01 AM Ondansetron 4 MG Oral Tablet Disintegrating; Therapy: [id number] to Recorded Dispe (more content not included)... Normal [facility] PT Progress Noteon 0 PT Progress Note Therapy Diagnosis Assessed Thoracic back pain (724.1) (M54.6) Fibromyalgia (729.1) (M79.7) Plan Goals: Goals set and discussed today. 1. Independent HEP to allow for 50% reduction in max ADL C/C sx (08/25) 2-3wks 910 max sx within the last 5 days; 08/12/19; NOT MET 2. 0/10 night time sx to allow for uninterrupted sleep x1wk (08/22) 2-3wks still wakes nightly; 08/12/19; NOT MET 3. Survey score improvement from 32% to25% (FLAQUITO) 3-4wks 34% as of 08/12/19; NOT MET 4. Strength increase to allow for improved ADL carrying (from gr4 abdominals to gr4+) 3-4wks; gr4+ abdominals; no change in ADL tolerances; 08/12/19; NOT MET Planned interventions include: aquatic therapy, cryotherapy, dry needling, education/instruction, gait training, home program, hot pack, kinesiotaping, manual therapy, neuromuscular re-education, self care/home management and therapeutic exercises. Frequency and duration: 2 time(s) a week, for 4 weeks, for 8 visits . the patient preferred 2x/wk due to work schedule. Potential to achieve rehab goals is good Discharge patient: Progress plateaued. patient agrees to D/C to ongoing home stretches with progress achieved; she palns to recheck with her Dr. Assessment see goals; D/Cd deep tissue work due to possibility of kidney stone involvement; Reviewed stretching as this was most relieving and loosening. There maybe a possibility of trying dry needing to reduce muscle tone in the future but she has a kidney infection at present. Insurance Insurance reviewed Visit number: 8 [facility] 30v Evaluating therapist Nj Cordero PT. M54.6 Subjective Patient reports:. There has been no change. I thought that I would have you fwd a recheck report to the Dr before I went back. I think the stretching helps loosen things up. Precautions: Fall Risk: none Pertinent medical HX includes: migraines; seizures (last one 02/2017); kidney stones; FM. Treatment Time in clinic started at 9:50 am Time in clinic ended at 10:20 am Total time in clinic is 30 minutes. Total timed code time is 15 minutes. Therapeutic exercise (43172): timed minutes 15, units 1 . supine HSS with strap 10 x 10 iliopsoas stretch (Jeffrey position) 45 R pirif stretch 2x30 LTR x10 quad hip ext 2x5 ea. Manual Therapy (18873):. STW to gluts, thoracic spine, and QL X Cupping to R waist area and paraspinals moving around x 10' stationary x 7' x' 3 cups X. Modalities:. Prone 6 layers x12 mins (X) skin intact pre/post Tx. Provided today:. HEP handout. 'Scores and Scales' Signatures Electronically signed by : John Cordero, PT; Aug 12 2019 10:25AM EST (Author) Normal [facility] Therapy Re-eval Noteon 08-11 Therapy Re-eval Note Therapy Diagnosis Assessed 1. Thoracic back pain (724.1) (M54.6) 2. Fibromyalgia (729.1) (M79.7) Plan Goals: Goals set and discussed today. 1. Independent HEP to allow for 50% reduction in max ADL C/C sx (08/25) 2-3wks 9/ max sx within the last 5 days; 08/12/19; NOT MET 2. 0/10 night time sx to allow for uninterrupted sleep x1wk (08/22) 2-3wks still wakes nightly; 08/12/19; NOT MET 3. Survey score improvement from 32% to25% (FLAQUITO) 3-4wks 34% as of 08/12/19; NOT MET 4. Strength increase to allow for improved ADL carrying (from gr4 abdominals to gr4+) 3-4wks; gr4+ abdominals; no change in ADL tolerances; 08/12/19; NOT MET Planned interventions include: aquatic therapy, cryotherapy, dry needling, education/instruction, gait training, home program, hot pack, kinesiotaping, manual therapy, neuromuscular re-education, self care/home management and therapeutic exercises. Frequency and duration: 2 time(s) a week, for 4 weeks, for 8 visits . the patient preferred 2x/wk due to work schedule. Potential to achieve rehab goals is good Discharge patient: Progress plateaued. patient agrees to D/C to ongoing home stretches with progress achieved; she palns to recheck with her Dr. Assessment see goals; D/Cd deep tissue work due to possibility of kidney stone involvement; Reviewed stretching as this was most relieving and loosening. There maybe a possibility of trying dry needing to reduce muscle tone in the future but she has a kidney infection at present. Insurance Insurance reviewed [facility] Evaluating therapist Nj Cordero PT. M54.6 Subjective Patient reports:. There has been no change. I thought that I would have you fwd a recheck report to the Dr before I went back. I think the stretching helps loosen things up. Precautions: Fall Risk: none Pertinent medical HX includes: migraines; seizures (last one 02/2017); kidney stones; FM. Treatment Time in clinic started at 9:50 am Time in clinic ended at 10:20 am Total time in clinic is 30 minutes. Total timed code time is 15 minutes. Therapeutic exercise (69433): timed minutes 15, units 1 . supine HSS with strap 10 x 10 iliopsoas stretch (Jeffrey position) 45 R pirif stretch 2x30 LTR x10 quad hip ext 2x5 ea. Manual Therapy (33411):. STW to gluts, thoracic spine, and QL X Cupping to R waist area and paraspinals moving around x 10' stationary x 7' x' 3 cups X. Modalities:. Prone 6 layers x12 mins (X) skin intact pre/post Tx. Provided today:. HEP handout. 'Scores and Scales' Signatures Electronically signed by : John Cordero, PT; Aug 12 2019 10:25AM EST (Author) Reviewed by : Benitez Eubanks MD; Aug 12 2019 2:59PM EST Normal [facility] PT Progress Noteon 0 PT Progress Note Therapy Diagnosis Assessed Thoracic back pain (724.1) (M54.6) Plan Goals: Goals set and discussed today. 1. Independent HEP to allow for 50% reduction in max ADL C/C sx (08/25) 2-3wks 2. 0/10 night time sx to allow for uninterrupted sleep x1wk (08/22) 2-3wks 3. Survey score improvement from 32% to25% (FLAQUITO) 3-4wks 4. Strength increase to allow for improved ADL carrying (from gr4 abdominals to gr4+) 3-4wks Planned interventions include: aquatic therapy, cryotherapy, dry needling, education/instruction, gait training, home program, hot pack, kinesiotaping, manual therapy, neuromuscular re-education, self care/home management and therapeutic exercises. Frequency and duration: 2 time(s) a week, for 4 weeks, for 8 visits . the patient preferred 2x/wk due to work schedule. Potential to achieve rehab goals is good Plan to continue with ex's and manual techniques for decreased pain and has reeval with PT next session. Progress with POC, as tolerated. Assessment Patient presented with muscle tension in R QL, Glut that responded with palpable reduction of tension after STM. Added QL stretch in standing this date. Adult Risk Screening Initial Fall Risk Screening: KENDALL has not fallen in the last 6 months. Her fall did not result in injury. KENDALL does not have a fear of falling. She does not need assistance with sitting, standing or walking. Does not need assistance walking in her home. She does not need assistance in an unfamiliar setting. The patient is not using an assistive device. Pain Scale: On a scale of 0 to 10, the patient rates the pain at 6. Pain Quality: aching and dull. Insurance Insurance reviewed Visit number: 7 samuel tracey Evaluating therapist Nj Cordero PT. M54.6 Subjective Patient reports:. Patient reported that she does not feel therapy is helping, she reported that she is getting nauseated several times a week, if she consumes spicy food, or cretin beverages her Sx get worse. She reported 8.5/10 pain after. Home program performing as directed: Yes. Precautions: Fall Risk: none Pertinent medical HX includes: migraines; seizures (last one 02/2017); kidney stones; FM. Treatment Time in clinic started at 02:45 Time in clinic ended at 03:28 Total time in clinic is 43 minutes. Total timed code time is 39 minutes. Therapeutic exercise (62418): timed minutes 23, units 2 . R HS Stretch with strap 10 x 10 R iliopsoas stretch 3 x 30 (supine jeffrey position) R QL stretch 10 x 10 in L S/L S/L open open books x10 each direction TrA 10 x 5 Bridging 2 x 10 standing R QL 3 x 20 IT band stretch 10 x 10? [X] TrA with april [X] Hip add x10 3 [X] Hip abd x10 orange [X] . Manual Therapy (52915): timed minutes 16, units 1 . STW to gluts, thoracic spine, and QL Cupping to R waist area and paraspinals moving around x 10' stationary x 7' x' 3 cups X. Modalities:. Prone 6 layers x12 mins (X) skin intact pre/post Tx. Provided today:. [id number], provided and reviewed for HEP. 'Scores and Scales' Signatures Electronically signed by : Promise Lam, CHEESE SUPERVISOR; Aug 05 2019 3:53PM EST (Author) Electronically signed by : John Cordero PT; Aug 06 2019 8:25AM EST Normal [facility] PT Progress Noteon 0 PT Progress Note Therapy Diagnosis Assessed Thoracic back pain (724.1) (M54.6) Plan Goals: Goals set and discussed today. 1. Independent HEP to allow for 50% reduction in max ADL C/C sx (08/25) 2-3wks 2. 0/10 night time sx to allow for uninterrupted sleep x1wk (/7) 2-3wks 3. Survey score improvement from 32% to25% (FLAQUITO) 3-4wks 4. Strength increase to allow for improved ADL carrying (from gr4 abdominals to gr4+) 3-4wks Planned interventions include: aquatic therapy, cryotherapy, dry needling, education/instruction, gait training, home program, hot pack, kinesiotaping, manual therapy, neuromuscular re-education, self care/home management and therapeutic exercises. Frequency and duration: 2 time(s) a week, for 4 weeks, for 8 visits . the patient preferred 2x/wk due to work schedule. Potential to achieve rehab goals is good - Plan to continue with ex's and manual techniques for decreased pain. May benefit from dry needling also. -MA. Assessment Patient identified by name AND . Patient wore a mask during treatment. Patient's treatment consisted of Ther ex for trunk AND LE ROM and core strengthening. Added cupping today for trial of decreased tightness and pain in right trunk area. Patient slightly more sore post treatment and plans to put heat on her side when she gets to work. Interdisciplinary Team Communication: Physical Therapy . Response to treatment: increased pain. Patient was able to complete today's treatment with ease. Adult Risk Screening There are no spiritual/cultural practices/values/needs that are important to know Initial Fall Risk Screening: KENDALL has not fallen in the last 6 months. Her fall did not result in injury. KENDALL does not have a fear of falling. She does not need assistance with sitting, standing or walking. Does not need assistance walking in her home. She does not need assistance in an unfamiliar setting. The patient is not using an assistive device. Pain Scale: On a scale of 0 to 10, the patient rates the pain at 7. Pain Quality: aching and dull. Insurance Insurance reviewed Visit number: 6 [facility] 30v Evaluating therapist Nj Cordero PT. M54.6 Subjective Patient reports:. Not getting any relief from physical therapy. Reports 7/10 in right side of her trunk. Has not felt pain in right shoulder blade area or thoracic area. It is more in her trunk area. Home program performing as directed: Yes. Precautions: Fall Risk: none Pertinent medical HX includes: migraines; seizures (last one 02/2017); kidney stones; FM. Treatment Time in clinic started at 7:03 Time in clinic ended at 7:45 Total time in clinic is 42 minutes. Total timed code time is 40 minutes. Therapeutic exercise (64574): timed minutes 23, units 2 . R HS Stretch with strap 10 x 10 R iliopsoas stretch 3 x 30 (supine jeffrey position) R QL stretch 10 x 10 in L S/L S/L open open books x10 each direction TrA 10 x 5 Bridging 2 x 10 IT band stretch 10 x 10? [X] TrA with april [X] Hip add x10 3 [X] Hip abd x10 orange [X] . Manual Therapy (08721): timed minutes 17, units 1 . STW to gluts, thoracic spine x12 mins (X) Cupping to R waist area and paraspinals moving around x 10' stationary x 7' x' 3 cups. Modalities:. Prone 6 layers x12 mins (X) skin intact pre/post Tx. Provided today:. [id number], provided and reviewed for HEP. 'Scores and Scales' Signatures Electronically signed by : Roxie Muhammad, CHEESE SUPERVISOR; Aug 02 2019 10:45AM EST (Author) Electronically signed by : John Cordero, PT; Aug 03 2019 8:53AM EST Normal [facility] PT Progress Noteon 0 PT Progress Note Therapy Diagnosis Assessed Fibromyalgia (729.1) (M79.7) Plan Goals: Goals set and discussed today. 1. Independent HEP to allow for 50% reduction in max ADL C/C sx (08/25) 2-3wks 2. 0/10 night time sx to allow for uninterrupted sleep x1wk (08/22) 2-3wks 3. Survey score improvement from 32% to25% (FLAQUITO) 3-4wks 4. Strength increase to allow for improved ADL carrying (from gr4 abdominals to gr4+) 3-4wks Planned interventions include: aquatic therapy, cryotherapy, dry needling, education/instruction, gait training, home program, hot pack, kinesiotaping, manual therapy, neuromuscular re-education, self care/home management and therapeutic exercises. Frequency and duration: 2 time(s) a week, for 4 weeks, for 8 visits . the patient preferred 2x/wk due to work schedule. Potential to achieve rehab goals is good Plan to continue with LE strength/ROM to decrease pain and improve mobility and ADL. Progress with POC, as tolerated. Assessment Patient has good form/understanding of stretches/ROM. Reports compliance with HEP daily. Patient tends to have tenderness right side low thoracic region with STW. Skin intact pre/post MHP. Continue with LE stretches/ROM to decrease pain and improve mobility. Insurance Insurance reviewed Visit number: 5 [facility] Jusv Evaluating therapist Nj Cordero PT. M54.6 Subjective Patient reports:. Patient states 9/10 pain, right lower back. Reports temp. of 99.6. Reccommend that patient keep tabs on temperature. Patient reports no change with pain level post treatment. Precautions: Fall Risk: none Pertinent medical HX includes: migraines; seizures (last one 02/2017); kidney stones; FM. Treatment Time in clinic started at 11:15 am Time in clinic ended at 12:00 pm Total time in clinic is 45 minutes. Total timed code time is 39 minutes. Therapeutic exercise (13552): timed minutes 15, units 1 . HS Stretch with strap 10 x 10? R iliopsoas stretch 3 x 30 (supine jeffrey position) R QL stretch 10 x 10? S/L open open books x10 each direction TrA 10 x 5? Bridging 2 x 10 IT band stretch 10 x 10? [X] TrA with april [X] Hip add x10 3 [X] Hip abd x10 orange [X] . Manual Therapy (46703): timed minutes 12, units 1 . STW to gluts, thoracic spine x12 mins. Modalities: untimed minutes 12, units 1 . Prone 6 layers x12 mins skin intact pre/post Tx. Provided today:. [id number], provided and reviewed for HEP. 'Scores and Scales' Signatures Electronically signed by : Annalisa Baum, CHEESE SUPERVISOR; Jul 29 2019 12:04PM EST (Author) Electronically signed by : John Cordero, PT; Aug 01 2019 6:59AM EST Normal [facility] PT Progress Noteon 0 PT Progress Note Therapy Diagnosis Assessed Thoracic back pain (724.1) (M54.6) Plan Goals: Goals set and discussed today. 1. Independent HEP to allow for 50% reduction in max ADL C/C sx (08/25) 2-3wks 2. 0/10 night time sx to allow for uninterrupted sleep x1wk (08/22) 2-3wks 3. Survey score improvement from 32% to25% (FLAQUITO) 3-4wks 4. Strength increase to allow for improved ADL carrying (from gr4 abdominals to gr4+) 3-4wks Planned interventions include: aquatic therapy, cryotherapy, dry needling, education/instruction, gait training, home program, hot pack, kinesiotaping, manual therapy, neuromuscular re-education, self care/home management and therapeutic exercises. Frequency and duration: 2 time(s) a week, for 4 weeks, for 8 visits . the patient preferred 2x/wk due to work schedule. Potential to achieve rehab goals is good Plan to continue with manual STM and flexibility/mobility as indicated, progress core/postural strengthening as tolerated to reduce pain and improve ease/tolerance with daily activity. Assessment Patient presents with continued spasm in R thoracic paraspinals, tender to touch but release partially with manual STM. Adult Risk Screening Initial Fall Risk Screening: KENDALL has not fallen in the last 6 months. KENDALL does not have a fear of falling. She does not need assistance with sitting, standing or walking. Does not need assistance walking in her home. She does not need assistance in an unfamiliar setting. The patient is not using an assistive device. Pain Scale: On a scale of 0 to 10, the patient rates the pain at 7. Insurance Insurance reviewed [facility] Evaluating therapist Nj Cordero PT. M54.6 Subjective Patient reports:. continued R side mid back pain and spasm. Home program performing as directed: Yes. Precautions: Fall Risk: none Pertinent medical HX includes: migraines; seizures (last one 02/2017); kidney stones; FM. Treatment Time in clinic started at 0703 Time in clinic ended at 0746 Total time in clinic is 43 minutes. Total timed code time is 42 minutes. Therapeutic exercise (29120): timed minutes 15, units 1 . HS Stretch with strap 10 x 10? R iliopsoas stretch 3 x 30 (supine jeffrey position) R QL stretch 10 x 10? S/L open open books x10 each direction TrA 10 x 5? Bridging 2 x 10 N IT band stretch 10 x 10? [X] TrA with april [X] Hip add x10 3 [X] Hip abd x10 orange [X] . Manual Therapy (98685): timed minutes 12, units 1 . STW to gluts, thoracic spine x12 mins. Modalities: untimed minutes 15, units 1 . Prone 6 layers x12 mins skin intact pre/post Tx. Provided today:. [id number], provided and reviewed for HEP. 'Scores and Scales' Signatures Electronically signed by : [place] CHEESE SUPERVISOR; Jul 26 2019 12:59PM EST (Author) Electronically signed by : John Cordero, PT; Aug 01 2019 6:59AM EST Normal [facility] PT Progress Noteon 0 PT Progress Note Therapy Diagnosis Assessed Thoracic back pain (724.1) (M54.6) Plan Goals: Goals set and discussed today. 1. Independent HEP to allow for 50% reduction in max ADL C/C sx (08/25) 2-3wks 2. 0/10 night time sx to allow for uninterrupted sleep x1wk (08/22) 2-3wks 3. Survey score improvement from 32% to25% (FLAQUITO) 3-4wks 4. Strength increase to allow for improved ADL carrying (from gr4 abdominals to gr4+) 3-4wks Planned interventions include: aquatic therapy, cryotherapy, dry needling, education/instruction, gait training, home program, hot pack, kinesiotaping, manual therapy, neuromuscular re-education, self care/home management and therapeutic exercises. Frequency and duration: 2 time(s) a week, for 4 weeks, for 8 visits . the patient preferred 2x/wk due to work schedule. Potential to achieve rehab goals is good Progress core strengthening as tolerated. Progress with POC, as tolerated. Assessment Fair tolerance to ther ex. Guarding noted with transfers from [facility]. Palpable tenderness along Thoracic paraspinals and QL. Reviewed HEP. Added MH per pt. request. Adult Risk Screening Initial Fall Risk Screening: KENDALL has not fallen in the last 6 months. Pain Scale: On a scale of 0 to 10, the patient rates the pain at 7. Insurance Insurance reviewed Visit number: 3 [facility] 30v Evaluating therapist Nj Cordero PT. M54.6 Subjective Patient reports:. Pt. states that she continues to have a lot of pain and does not notice much of a difference. Pt. states that she is working on her HEP. Pt. states that she has relief with MH. Precautions: Fall Risk: none Pertinent medical HX includes: migraines; seizures (last one 02/2017); kidney stones; FM. Treatment Time in clinic started at 2:30 pm Time in clinic ended at 3:15 pm Total time in clinic is 45 minutes. Total timed code time is 30 minutes. Therapeutic exercise (20584): timed minutes 15, units 1 . HS Stretch with strap 10 x 10? IT band stretch 10 x 10? X R iliopsoas stretch 10 x 10 (supine jeffrey position) R QL stretch 10 x 10? TrA 10 x 5? TrA with marchX Hip add x10 3 X Hip abd x10 orange X Bridging 2 x 10 N S/L open open books. Manual Therapy (59526): timed minutes 15, units 1 . STW to gluts, thoracic spine and IT band. Modalities: untimed minutes 15, units 1 . Prone 6 layers skin intact pre/post Tx. Provided today:. [id number], provided and reviewed for HEP. 'Scores and Scales' Signatures Electronically signed by : Moises Edge, CHEESE SUPERVISOR; Jul 22 2019 3:14PM EST (Author) Electronically signed by : John Cordero PT; Jul 23 2019 9:25AM EST Normal [facility] PT Progress Noteon 0 PT Progress Note Therapy Diagnosis Assessed Thoracic back pain (724.1) (M54.6) Plan Goals: Goals set and discussed today. 1. Independent HEP to allow for 50% reduction in max ADL C/C sx (08/25) 2-3wks 2. 0/10 night time sx to allow for uninterrupted sleep x1wk (08/22) 2-3wks 3. Survey score improvement from 32% to25% (FLAQUITO) 3-4wks 4. Strength increase to allow for improved ADL carrying (from gr4 abdominals to gr4+) 3-4wks Planned interventions include: aquatic therapy, cryotherapy, dry needling, education/instruction, gait training, home program, hot pack, kinesiotaping, manual therapy, neuromuscular re-education, self care/home management and therapeutic exercises. Frequency and duration: 2 time(s) a week, for 4 weeks, for 8 visits . the patient preferred 2x/wk due to work schedule. Potential to achieve rehab goals is good Progress with ROM, strengthening and STW as needed for decreased Sx and increased ease with ambulation with ADL's. AW . Progress with POC, as tolerated. Assessment Reviewed previous HEP and provided additional handout this date, she demonstrated good understanding. She presented with palpable tender points and tension with STW that responded well with reduction of tension after. Adult Risk Screening Initial Fall Risk Screening: KENDALL has not fallen in the last 6 months. Her fall did not result in injury. KENDALL does not have a fear of falling. She does not need assistance with sitting, standing or walking. Does not need assistance walking in her home. She does not need assistance in an unfamiliar setting. Pain Scale: On a scale of 0 to 10, the patient rates the pain at 7. Please identify location of pain: 7/10. Pain Quality: sharp, tightness and throbbing. Insurance Insurance reviewed Visit number: 2 [facility] 30v Evaluating therapist Nj Cordero PT. M54.6 Subjective Patient reports:. Patient reported 8/10 pain/soreness after treatment. Home program performing as directed: Yes. Precautions: Fall Risk: none Pertinent medical HX includes: migraines; seizures (last one 02/2017); kidney stones; FM. Treatment Time in clinic started at 7:01 Time in clinic ended at 07:44 Total time in clinic is 43 minutes. Total timed code time is 41 minutes. Therapeutic exercise (51083): timed minutes 29, units 2 . HS Stretch with strap 10 x 10? IT band stretch 10 x 10? R iliopsoas stretch 10 x 10 (supine jeffrey position) R QL stretch 10 x 10? TrA 10 x 5? TrA with april Hip add x10 3 Hip abd x10 orange. Manual Therapy (01016): timed minutes 12, units 1 . STW to gluts, hip flexors and IT band. Provided today:. [id number], provided and reviewed for HEP. 'Scores and Scales' Signatures Electronically signed by : Promise Lam CHEESE SUPERVISOR; Jul 18 2019 11:10AM EST (Author) Electronically signed by : John Cordero PT; Jul 20 2019 7:17AM EST Normal [facility] PT Initial Evaluationon 06-17 PT Initial Evaluation Therapy Diagnosis Assessed Thoracic back pain (724.1) (M54.6) Plan of Care Goals: Goals set and discussed today. 1. Independent HEP to allow for 50% reduction in max ADL C/C sx (08/25) 2-3wks 2. 0/10 night time sx to allow for uninterrupted sleep x1wk (08/22) 2-3wks 3. Survey score improvement from 32% to25% (FLAQUITO) 3-4wks 4. Strength increase to allow for improved ADL carrying (from gr4 abdominals to gr4+) 3-4wks Planned interventions include: aquatic therapy, cryotherapy, dry needling, education/instruction, gait training, home program, hot pack, kinesiotaping, manual therapy, neuromuscular re-education, self care/home management and therapeutic exercises. Frequency and duration: 2 time(s) a week, for 4 weeks, for 8 visits . the patient preferred 2x/wk due to work schedule. Potential to achieve rehab goals is good Plan of care was developed with input and agreement by the patient. Assessment 33 yo female presents with a 1.5 yr HX of pain at the R mid to low back. Local thoracic films show only mild spurring and disc space narrowing. There is a HX of + MRI for lumbar disc bulging. The patient describes sx similar with kidney stone pain.. She is here to fulfill the insurance. mandate for PT before injections. Marked tenderness and pulling sensation at the R QL/iliopsoas areas. Also R trunk shift in stdg and more mild shift with sitting (HX of falling downstairs and also using a RLE walking boot for 9mths in 2017). L>R leg length and negative ASIS align. She also had a hysterectomy on the R side in 2013. C/C sx of deep and posterior R flank pain/spasm and pulling reproduced with iliopsoas release. Will continue with STW/flexibility to inhibit iliopsoas and QL tone and release possible deep scarring. Hip ROM and PRE and core work should be added as romel. DN may also be attempted to facilitate muscle relaxation PRN. A heel lift will be considered as a last resort. Clinical Presentation: Stable and/or uncomplicated characteristics. Level of Complexity: low Problem List: activity limitations, ADLs/IADLs/self care skills, decreased functional level, decreased knowledge of HEP, decreased knowledge of precautions, pain and strength. Reason For Visit Initial Evaluation . thoracic pain. Referred by: Cha Adult Risk Screening There are no spiritual/cultural practices/values/needs that are important to know Initial Fall Risk Screening: KENDALL has not fallen in the last 6 months. Her fall did not result in injury. KENDALL does not have a fear of falling. She does not need assistance with sitting, standing or walking. Does not need assistance walking in her home. She does not need assistance in an unfamiliar setting. The patient is not using an assistive device. Pain Scale: On a scale of 0 to 10, the patient rates the pain at 7. Please identify location of pain: mid back on the R side. Insurance Insurance reviewed Visit number: 1 [facility] 30v Evaluating therapist Nj Cordero PT. M54.6 Subjective Current Episode of Functional Impairment and/or Pain Date of onset: 02/16/2017 Mechanism of Injury:. Associates sx with after passing a kidney stone. She did fall downstairs in 2017. She was also in a R walking boot for 9 mths in 2017 ([employer]). She also had a R sided hysterectomy in 2013. Medical Screening: Reviewed medical history form with patient and medical screening assessed. Current Medical Management:. chirop HX; also a candidate for injections; 06/20 films show mild thor spurring and disc space narrowing; 2018 MRI showed lumbar disc bulging. Precautions: Fall Risk: none Pertinent medical HX includes: migraines; seizures (last one 02/2017); kidney stones; FM. Functional Assessment Prior level of function: PAINFUL, DIFFICULT, OR ALTERED ADL (marked with an xx) sleep--XX sitting-- sit to standing transfers-- car transfers-- standing-- walking-- carrying--XX stairs-- dressing lowers-- driving-- dressing uppers-- reaching---- handling objects-- other-- . Patient stated goal(s) for treatment include: relieving pain , reducing symptoms , reducing/preventing future occurrences and learning preventative care measures . 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 Current Status: worsening. Patient Awareness: Patient is aware of her diagnosis and prognosis. Personal Factors That May Impact Care:. No obtrusive barriers to learning identified/observed. ID confirmed with B-day; speaks cameroonian. Objective Ortho gr4- abdominals. Observation Palpation: tender at the R QL area; L>R leg length (negative ASIS align); tender R ioliopsoas and the R anterior flank area. Posture: m Normal [facility] Automatic [facility] CCD-CCDAon 07-05-2019 [employer] [facility] CCD-CCDA conversion failed Normal [facility] [employer] [facility] CCD-CCDAon 06-22-2019 Automatic [facility] CCD-CCDA conversion failed Normal [facility] EEG RESIDENTIAL MONITORINGon 0 04-26-2018 Yves levy MD 04/26/2018 3:17 PM 3-Day Continuous EEG Report (PARTIAL) *Note*: This is a PARTIAL Continuous EEG report, inclusive only of times listed within this report. Please see my colleague Dr. Mathew's accompanying report for results not included within the time span specified in this report. Indication for Study: Monitoring for spells of unclear etiology EEG Start Time: 04/22/2018 at 11:17 hours EEG Stop Time: 04/25/2018 at 11:17 hours Clinical Summary: Kendall Daniel is a 32 y.o. year old female with Spells, concerning for Non-Epileptic vs Epileptic events. Patient is undergoing EEG monitoring in EMU for diagnostic classification of target events. Conditions of Recording This study was performed using a 28-lead digital electroencephalographic array, with data analyzed across multiple montages. Direct video visualization of the patient is utilized during the study, as is automated seizure detection software. A single EKG lead is utilized throughout the recording. EEG Description Day 1: There is the presence of a well-developed 10 Hz posterior dominant rhythm during periods of maximal wakefulness with eyes closed. No abnormal diffuse or focal slowing is contained within the recording. There are no Interictal Epileptiform Discharges contained within the recording, and NO Electrographic Seizures occur. There are no clinical target events captured during this day of recording. Day 2: Stable background activities were noted on this day of recording. No abnormal diffuse or focal slowing is contained within the recording. There are no Interictal Epileptiform Discharges contained within the recording, and NO Electrographic Seizures occur. There are no clinical target events captured during this day of recording. Day 3: Stable background activities were noted on this day of recording. There are no Interictal Epileptiform Discharges contained within the recording, and NO Electrographic Seizures occur. There are no clinical target events captured during this day of recording. There is capture of ONE clinical target events captured during this day of recording, as follows: Event #1: 04/25/2018 at 0914 hrs, with clinical manifestation of eye closure, moaning, unresponsiveness and writhing motions of body without EEG correlate, and diagnostic for a Non-Epileptic Event. Duration 9 minutes, 10 seconds. 3-Day Continuous EEG Summary (Study Ongoing) Throughout Kendall Daniel's monitoring, stable background activities with appropriate architecture were noted. There are no interictal epileptiform discharges seen throughout the recording. No electrographic seizures were captured during the study. To date there has been capture of ONE clinical target spells with active provocation, and diagnostic for a Non-Epileptic Event with strong suggestion of Psychogenic sub-typing based upon witnessed semiology and duration of event. *Note*: Monitoring continues under the direction of my colleague, Dr. Mathew. Please see their accompanying report for full details of monitoring data gathered outside of the time span specified in this report. Yves Jaime MD, ABPN, FAES Adult Epileptologist & Neurologist [facility] A Level 4, NAEC-Certified Epilepsy Center [facility] Radha Mathew DO 04/26/2018 6:07 PM [facility] Epilepsy Monitoring Unit (EMU) Report PROCEDURE Neurodiagnostic Report Continuous video electroencephalogram PARTIAL REPORT(Part 2 of 2) EEG Start Time: 04/22/2018 at 1117 hours Part two start time 04/25/2018 at 11:17 hours EEG Stop Time: 04/26/2018 at 1645 hours Referring Physician: Jerry Mirza DO CLINICAL INDICATION: Characterization of events concerning for epilepsy. Versus PNES HISTORY: This is a 32 y.o. female with a history of MEDICATIONS: On admission: keppra , GBP Changes during admission: stopped keppra TECHNICAL DESCRIPTION This is a 28-channel continuous video EEG set up in the International 10-20 electrode system. It was acquired using standardized montages and digital formatting. There is a single lead EKG recorded throughout the entire study that shows no obvious arrhythmia. Seizure and spike detection software was used and daily 30-minute frequent time samples were reviewed throughout the study. EEG DESCRIPTION During wake: There is a posterior dominant rhythm with a maximum frequency of 10 hertz. This is symmetrical across both hemispheres, well sustained and demonstrates reactivity to eye opening and closure. Drowsiness: There is attenuation of the background and build up of theta frequencies in the central head regions. There is no significant asymmetry seen between the two hemispheres. There is no focal slowing contained within the recording. Stage 2 sleep: Present and characterized by vertex waves, sleep spindles, and K complexes, predominant in the central head regions, symmetric in morphology and distribution Activation procedures: Did not produce any abnormalities on EEG Hyperventilation produced a mild generalized slowing Photic stimulation produced a driving response did not elicit any abnormalities. Events: in part 1 of 2 of the study EEG DIAGNOSIS: 1. Normal awake 2. Normal drowsy background 3. Normal Stage II and slow wave sleep IMPRESSION: This Part 2 of a halfway epilepsy monitoring unit Video EEG study recorded no events of clinical concern. This portion of the study is normal in waking and sleep. There was one event recorded in Part 1 of this study , which was characterized as unresponsiveness, with amnesia of the event and writhing. This was non epileptic in nature and most likely psychogenic Please see Dr. Jaime separate report for details regarding the first portion of the patient's study. Thank you very much for allowing me to participate in this patient's care. Radha Mathew DO, MATEUSN Adult Neurologist Epilepsy Board Certified [facility] Neurological Physicians [facility] Level 4- [facility] POC Glucoseon 04-25-2018 Glucose [Mass/Vol] 80 mg/dL 65 - 99 mg/dL [facility] Interpretation and review of laboratory results Normal [facility] Potassium Levelon 04-23-2018 Interpretation and review of laboratory results Abnormal [facility] Potassium [Moles/Vol] 3.2 mmol/L Low 3.5 - 5.1 mmol/L [facility] Basic Metabolic Panelon Anion gap [Moles/Vol] 17 mmol/L 10 - 2 0 mmol/L [facility] Calcium [Mass/Vol] 9.8 mg/dL 8.4 - 10. 2 mg/dL [facility] Chloride [Moles/Vol] 101 mmol/L 98 - 10 8 mmol/L [facility] Creatinine [Mass/Vol] 0.90 mg/dL 0.4 - 1.1 mg/dL [facility] GFR/1.73 sq M predicted among non-blacks MDRD (S/P/Bld) [Vol rate/Area] The eGFR should be used for monitoring renal function only and not for medication dosing. [facility] GFR/1.73 sq M.predicted CKD-EPI (S/P/Bld) [Vol rate/Area] 85 >=60 mL/min/1.7 3 m2 [facility] Glucose [Mass/Vol] 96 mg/dL 65 - 99 mg/dL [facility] HCO3 [Moles/Vol] 25 mmol/L 21 - 32 mmol/L [facility] Interpretation and review of laboratory results Abnormal [facility] Potassium [Moles/Vol] 2.9 mmol/L Low 3.5 - 5.1 mmol/L [facility] Sodium [Moles/Vol] 140 mmol/L 135 - 145 mmol/L [facility] Urea nitrogen [Mass/Vol] 13 mg/dL 8 - 25 mg/dL [facility] Urea nitrogen/Creatinine [Mass ratio] 14.4 mg/mg [facility] CBCon 04-22-2018 Erythrocyte distribution width (RBC) [Entitic vol] 12.3 % 11.6 - 14.8 % [facility] Hematocrit (Bld) [Volume fraction] 43.5 % 36 - 46 % [facility] Hemoglobin (Bld) [Mass/Vol] 13.9 g/dL 12 - 16 g/dL [facility] MCH (RBC) [Entitic mass] 29.0 pg 26 - 34 pg [facility] MCHC (RBC) [Mass/Vol] 32.0 g/dL 31 - 3 7 g/dL [facility] MCV (RBC) [Entitic vol] 90.8 fL 80 - 100 fL [facility] Nucleated RBC (Bld) [#/Vol] 0.00 10*3/uL [facility] Nucleated RBC/100 WBC (Bld) [Ratio] 0.0 % [facility] Platelet mean volume (Bld) [Entitic vol] 10.6 fL 9 - 15.5 fL [facility] Platelets (Bld) [#/Vol] 254 10*3/uL [facility] RBC (Bld) [#/Vol] 4.79 10*6/uL [facility] WBC (Bld) [#/Vol] 4.78 10*3/uL [facility] Hepatic Function Panelon Albumin [Mass/Vol] 4.4 g/dL 3.2 - 5.2 g/dL [facility] ALP [Catalytic activity/Vol] 44 U/L 40 - 140 U/L [facility] ALT [Catalytic activity/Vol] 14 U/L 0 - 40 U/L [facility] AST [Catalytic activity/Vol] 21 U/L 0 - 45 U/L [facility] Bilirubin [Mass/Vol] 0.4 mg/dL 0 - 1.3 mg/dL [facility] Bilirubin.conjugated [Mass/Vol] mg/dL 0 - 0.4 mg/dL [facility] Interpretation and review of laboratory results Normal [facility] Protein [Mass/Vol] 7.7 g/dL 6 - 8 g/dL [facility] alth , Urineon 9 HCG ( test) Ql (U) Negative Negative [facility] Interpretation and review of laboratory results Normal [facility] URINALYSISon 04-22-2018 Bacteria Auto Ql (U) None Seen None Se en /hpf [facility] Bilirubin Ql (U) Negative Negative [facility] th Clarity Refractometry automated (U) Clear Clear [facility] Color (U) Colorless Colorless, Yellow [facility] Epithelial cells.squamous Auto (Urine sed) [#/Area] 1 [facility] Glucose Auto test strip (U) [Mass/Vol] Negative Negative mg/dL [facility] Hemoglobin Auto test strip Ql (U) Negative Negative [facility] Interpretation and review of laboratory results Abnormal [facility] Ketones (U) [Mass/Vol] Negative Negat catrina mg/dL [facility] Leukocyte esterase Auto test strip Ql (U) Negative Negative [facility] Nitrite Auto test strip Ql (U) Negative Negative [facility] pH (U) 9.0 [pH] High [facility] Protein (U) [Mass/Vol] Negative Negat catrina mg/dL [facility] RBC Auto (Urine sed) [#/Area] 1 [facility] Specific gravity (U) [Rel density] 1.011 [facility] Urobilinogen (U) [Mass/Vol] <2.0 <2.0 mg/dL [facility] WBC Auto (Urine sed) [#/Area] <1 [facility] Microscopic examinat ion is performed on all urinalysis samples and only positive findings are reported. The test for blood on the chemical analytic portion of urinalysis may also be positive due to hemoglobinuria and myoglobinuria and if red blood cells are present they are quantified by microscopic examination. [facility] Glucose POCon 04-14-2018 Glucose [Mass/Vol] 107 mg/dL High 70-99 [facility] Comment on above: Performed By: #### 2 [id number] #### CASSY RemHemo [address] [place] [address] Glucose [Mass/Vol] 59 mg/dL Low 70-99 [facility] Comment on above: Result Comment: Foll ow Hypoglycemia Protocol Performed By: #### 2 [id number] #### CASSY RemHemo [address] [place] [address] [place] Hepatobiliary Duct System Imaging w/EFon 04-14-2018 NM Hepatobiliary Duct System Imaging w/EF Exam Date/Time: 04/14/2018 11:02 EST Reason for Exam: RUQ ABD PAIN;Abdominal pain Report STUDY: NM Hepatobiliary Duct System Imaging w/EF; 04/14/2018 11:02 am INDICATION: Abdominal pain. COMPARISON: None. ACCESSION NUMBER(S): [id number] ORDERING CLINICIAN: Andrez Payton TECHNIQUE: DIVISION OF NUCLEAR MEDICINE HEPATOBILIARY SCAN (HIDA), QUANTITATIVE The patient received an intravenous dose of 5.5 mCi of Tc-99m mebrofenin (Choletec). Sequential images of the upper abdomen were then acquired over the next 60 minutes. An oral fatty meal of whole milk with added cream was then administered followed by an additional hour of imaging. Computer quantification of gallbladder emptying was also performed. FINDINGS: There is prompt accumulation of activity within the liver and normal subsequent excretion via the biliary ductal system into the small bowel. The gallbladder first visualizes at about 10 minutes after radiopharmaceutical injection and progressively fills. After fatty meal administration, there is prompt contraction of the gallbladder with further anterograde transit of activity into the small bowel. The gallbladder ejection fraction is calculated to be 64 % (normal above 38%). IMPRESSION: 1. Visualization of the gallbladder without evidence of acute cholecystitis. 2. Nonvisualization of gallbladder without evidence of chronic cholecystitis. 3. Patent biliary tract and outlet. 4. Normal liver function. Exam Date/Time: 04/14/2018 11:02 EST Report I personally reviewed the images/study and I agree with the findings as stated. This study was interpreted at [facility], [place], [place]. FINAL REPORT Dictated: 04/14/2018 11:21 am Osmel Nichols MD Signed (Electronic Signature): 04/14/2018 11:21 am Signed by: Simone COFFEY Osmel Technologist: CHERRIE Delacruz [facility] Auto Diffon 03-24-2018 Basophils (Bld) [#/Vol] 0.1 E3/mcL Normal 0.0-0.2 [facility] Comment on above: Order Comment: Order Added by Noreen Expert. Performed By: #### 2 [id number] #### CASSY RemHemo [address] [place] [address] Basophils/100 WBC (Bld) 1.1 % Normal 0.0-2.0 [facility] Comment on above: Order Comment: Order Added by Noreen Expert. Performed By: #### 2 [id number] #### CASSY RemHemo [address] [place] [address] Eos Absolute 0.1 E3/mcL Normal 0.0-0.7 [facility] Comment on above: Order Comment: Order Added by Noreen Expert. Performed By: #### 2 [id number] #### CASSY RemHemo [address] [place] [address] Eosinophils/100 WBC (Bld) 1.3 % Normal 0.0-11.0 [facility] Comment on above: Order Comment: Order Added by Noreen Expert. Performed By: #### 2 703269 #### CASSY RemHemo [address] [place] [address] Lymphocytes (Bld) [#/Vol] 2.1 E3/mcL Normal 1.2-3.4 [facility] Comment on above: Order Comment: Order Added by Noreen Expert. Performed By: #### 2 [id number] #### CASSY RemHemo [address] [place] [address] Lymphocytes/100 WBC (Bld) 43.9 % Normal 20.0-55.0 [facility] Comment on above: Order Comment: Order Added by Noreen Expert. Performed By: #### 2 955617 #### CASSY RemHemo [address] [place] [address] [place] Absolute 0.3 E3/mcL Normal 0.0-0.7 [facility] Comment on above: Order Comment: Order Added by Noreen Expert. Performed By: #### 2 [id number] #### CASSY RemHemo [address] [place] [address] Monocytes/100 WBC (Bld) 6.5 % Normal 0.0-10.0 [facility] Comment on above: Order Comment: Order Added by Discern Expert. Performed By: #### 2 [id number] #### CASSY RemHemo [address] [place] [address] Neutro Absolute 2.2 E3/mcL Normal 1.4-6.5 [facility] Comment on above: Order Comment: Order Added by Discern Expert. Performed By: #### 2 592198 #### CASSY RemHemo [address] [place] [address] Neutro Auto 47.2 % Normal 37.0-75.0 [facility] Comment on above: Order Comment: Order Added by Discern Expert. Performed By: #### 2 570342 #### CASSY RemHemo [address] [place] [address] BMPon 03-24-2018 Anion gap [Moles/Vol] 12 mmol/L Normal 10-20 [facility] Comment on above: Performed By: #### 2 [id number] #### CASSY RemHemo [address] [place] [address] Calcium [Mass/Vol] 9.4 mg/dL Normal 8.6-10.3 [facility] Comment on above: Performed By: #### 2 052184 #### CASSY RemHemo [address] [place] [address] Chloride [Moles/Vol] 102 mmol/L Normal 98-107 [facility] Comment on above: Performed By: #### 2 550523 #### CASSY RemHemo [address] [place] [address] CO2 [Moles/Vol] 27.0 mmol/L Normal 21.0-32.0 [facility] Comment on above: Performed By: #### 2 493813 #### CASSY RemHemo [address] [place] [address] Creatinine [Mass/Vol] 1.0 mg/dL Normal 0.5-1.1 [facility] Comment on above: Performed By: #### 2 122622 #### CASSY RemHemo [address] [place] [address] Glucose [Mass/Vol] 85 mg/dL Normal 70-99 [facility] Comment on above: Performed By: #### 2 320517 #### CASSY RemHemo [address] [place] [address] Potassium [Moles/Vol] 2.9 mmol/L Low 3.5-5.3 [facility] Comment on above: Performed By: #### 2 402680 #### CASSY RemHemo [address] [place] [address] Sodium [Moles/Vol] 138 mmol/L Normal 136-145 [facility] Comment on above: Performed By: #### 2 681646 #### CASSY RemHemo [address] [place] [address] Urea nitrogen [Mass/Vol] 15 mg/dL Normal 6-23 [facility] Comment on above: Performed By: #### 2 048218 #### CASSY RemHemo [address] [place] [address] Urea nitrogen/Creatinine [Mass ratio] 15.0 ratio Normal 5.4-30.0 [facility] Comment on above: Performed By: #### 2 908336 #### CASSY ValdezHemo [address] [place] [address] CBC w/ Auto Diffon 9 Erythrocyte distribution width (RBC) [Ratio] 13.0 % Normal 11.5-14.5 [facility] Comment on above: Performed By: #### 2 549951 #### CASSY RemHemo [address] [place] [address] Hematocrit (Bld) [Volume fraction] 42.3 % Normal 36.0-48.0 [facility] Comment on above: Performed By: #### 2 887995 #### CASSY RemHemo [address] [place] [address] Hemoglobin (Bld) [Mass/Vol] 14.2 g/dL Normal 12.0-16.0 [facility] Comment on above: Performed By: #### 2 583992 #### CASSY RemHemo [address] [place] [address] MCH (RBC) [Entitic mass] 30.0 pg Normal 27.0-31.0 [facility] Comment on above: Performed By: #### 2 644049 #### CASSY ValdezHemo [address] [place] [address] MCHC (RBC) [Mass/Vol] 33.5 g/dL Normal 33.0-37.0 [facility] Comment on above: Performed By: #### 2 639001 #### CASSY RemHemo [address] [place] [address] MCV (RBC) [Entitic vol] 89.7 fL Normal 78.0-100.0 [facility] Comment on above: Performed By: #### 2 005129 #### CASSY ValdezHemo [facility] [place] [address] Platelet mean volume (Bld) [Entitic vol] 8.8 fL Normal 7.4-11.0 [facility] Comment on above: Performed By: #### 2 953718 #### CASSY ValdezHemo [facility] [place] [address] Platelets (Bld) [#/Vol] 253 E3/mcL Normal 130-400 [facility] Comment on above: Performed By: #### 2 731048 #### CASSY ValdezHemo [facility] [place] [address] RBC (Bld) [#/Vol] 4.71 E6/mcL Normal 3.90-5.40 [facility] Comment on above: Performed By: #### 2 536119 #### CASSY ValdezHemo [address] [place] [address] WBC (Bld) [#/Vol] 4.8 E3/mcL Normal 3.6-11.0 [facility] Comment on above: Performed By: #### 2 493643 #### CASSY RemHemo [address] [place] [address] Hep Func Panelon 03-24-2018 Albumin [Mass/Vol] 4.4 g/dL Normal 3.4-5.0 [facility] Comment on above: Performed By: #### 2 347000 #### CASSY Staffordo [facility] [place] [address] Albumin/Globulin [Mass ratio] 1.5 {ratio} Normal 1.1-1.9 [facility] Comment on above: Performed By: #### 2 298713 #### CASSY Staffordo [address] [place] [address] Alk Phos 44 Int._Unit/L Normal 33-110 [facility] Comment on above: Performed By: #### 2 452139 #### CASSY Camacho [address] [place] [address] ALT [Catalytic activity/Vol] 14 Int._Unit/L Normal 7-45 [facility] Comment on above: Performed By: #### 2 369847 #### CASSY [address] [address] AST [Catalytic activity/Vol] 17 Int._Unit/L Normal 9-39 [facility] Comment on above: Performed By: #### 2 113907 #### CASSY Staffordo [address] [place] [address] Bili Direct 0.12 mg/dL Normal 0.00-0.30 [facility] Comment on above: Performed By: #### 2 642905 #### CASSY [address] [address] Bili Indirect 0.43 mg/dL Normal [facility] Comment on above: Result Comment: No e stablished ranges available for the indirect bilirubin Performed By: #### 2 059308 #### CASSY [address] [address] Bili Total 0.55 mg/dL Normal 0.00-1.20 [facility] Comment on above: Performed By: #### 2 701451 #### CASSY Staffordo [facility] [place] [address] Globulin (S) [Mass/Vol] 3.0 g/dL Normal 2.0-4.0 [facility] Comment on above: Performed By: #### 2 500800 #### CASSY Staffordo [address] [place] [address] Protein [Mass/Vol] 7.3 g/dL Normal 6.4-8.2 [facility] Comment on above: Performed By: #### 2 337364 #### CASSY ValdezHemo [address] [place] [address] Lipase Levelon 03-24-2018 Lipase Lvl 20 Int._Unit/L Normal 9-82 [facility] Comment on above: Performed By: #### 2 799872 #### CASSY CourtneyHemo [address] [place] [id number] U BhCG Qlton 03-24-2018 HCG.beta subunit Qn Negative Normal Neg [facility] Comment on above: Performed By: #### 2 822858 #### CASSY ValdezHemo [address] [place] [address] UA Completeon 03-24-2018 Color (U) Yellow Normal Yellow [facility] Comment on above: Performed By: #### 2 [id number] #### CASSY CourtneyHemo [facility] [place] [address] Glucose (U) [Mass/Vol] Negative Normal Negative [facility] Comment on above: Performed By: #### 2 928647 #### CASSY ValdezHemo [address] [place] [address] Ketones Ql (U) Negative Normal Negative [facility] Comment on above: Performed By: #### 2 560819 #### CASSY ValdezHemo [address] [place] [address] RBC (U) [#/Vol] 0-3 Normal 0-3 [facility] Comment on above: Performed By: #### 2 689218 #### CASSY CourtneyHemo [address] [place] [address] UA Blood Negative Normal Negative [facility] Comment on above: Performed By: #### 2 355433 #### CASSYRosalva ValdezHemo [address] [place] [id number] UA Bacteria Trace Abnormal None [facility] Comment on above: Performed By: #### 2 330678 #### CASSY RemHemo [address] [place] [address] UA Clarity Clear Normal Clear [facility] Comment on above: Performed By: #### 2 984312 #### CASSY ValdezHemo [address] [place] [address] UA Leuk Est Negative Normal Negative [facility] Comment on above: Performed By: #### 2 768284 #### CASSY ValdezHemo [address] [place] [address] UA Mucous Trace Abnormal Trace [facility] Comment on above: Performed By: #### 2 411942 #### CASSY ValdezHemo [address] [place] [id number] UA Nitrite Negative Normal Negative [facility] Comment on above: Performed By: #### 2 888265 #### CASSY ValdezHemo [address] [place] [address] UA pH 6.0 Normal 4.6-8.0 [facility] Comment on above: Performed By: #### 2 501725 #### CASSY ValdezHemo [address] [place] [address] UA Protein 1+ Abnormal Negative [facility] Comment on above: Performed By: #### 2 981695 #### CASSY ValdezHemo [address] [place] [address] UA Spec Grav 1.028 Normal 1.003-1.03 0 [facility] Comment on above: Performed By: #### 2 379098 #### CASSY ValdezHemo [address] [place] [id number] UA Squam Epithelial 0-5 Normal 0-5 [facility] Comment on above: Performed By: #### 2 019897 #### CASSY ValdezHemo [address] [place] [address] UA Urobilinogen Negative Normal [facility] Comment on above: Result Comment: Due to a manufacturing issue, low positive urobilinogen results may be fasely positive. Correlate with urine bilirubin and additional clinical/laboratory findings to assess the risk of hemolytic anemia or liver disease. If clinically indicated, repeat testing with an alternate method is available by contacting the laboratory within 24 hours. Performed By: #### 2 930531 #### CASSY ValdezHemo [address] [place] [id number] UA WBC 0-5 Normal 0-5 [facility] Comment on above: Performed By: #### 2 857145 #### CASSY ValdezHemo [address] [place] [address] Urobilinogen Qn (U) Negative Normal Negative [facility] Comment on above: Performed By: #### 2 477216 #### CASSY ValdezHemo [address] [place] [address] eGFRon 03-24-2018 GFR/1.73 sq M predicted among non-blacks MDRD (S/P/Bld) [Vol rate/Area] mL/min/{1.73_m2} Normal [facility] Comment on above: Order Comment: Order added by Discern Expert. Performed By: #### 2 634303 #### CASSY ValdezHemo [facility] [place] [address] Auto Diffon 11-30-2017 Basophils (Bld) [#/Vol] 0.1 E3/mcL Normal 0.0-0.2 [facility] Comment on above: Order Comment: Order Added by Discern Expert. Performed By: #### 2 128904 #### CASSY ValdezHemo [address] [place] [address] Basophils/100 WBC (Bld) 0.9 % Normal 0.0-2.0 [facility] Comment on above: Order Comment: Order Added by Discern Expert. Performed By: #### 2 279853 #### CASSY ValdezHemo [facility] [place] [address] Eos Absolute 0.0 E3/mcL Normal 0.0-0.7 [facility] Comment on above: Order Comment: Order Added by Discern Expert. Performed By: #### 2 988812 #### CASSY ValdezHemo [facility] [place] [address] Eosinophils/100 WBC (Bld) 0.6 % Normal 0.0-11.0 [facility] Comment on above: Order Comment: Order Added by Discern Expert. Performed By: #### 2 514044 #### CASSY ValdezHemo [facility] [place] [address] Lymphocytes (Bld) [#/Vol] 2.2 E3/mcL Normal 1.2-3.4 [facility] Comment on above: Order Comment: Order Added by Discern Expert. Performed By: #### 2 447913 #### CASSY RemHemo [address] [place] [address] Lymphocytes/100 WBC (Bld) 35.5 % Normal 20.0-55.0 [facility] Comment on above: Order Comment: Order Added by Discern Expert. Performed By: #### 2 534854 #### CASSY RemHemo [address] [place] [address] [place] Absolute 0.4 E3/mcL Normal 0.0-0.7 [facility] Comment on above: Order Comment: Order Added by Discern Expert. Performed By: #### 2 409274 #### CASSY RemHemo [address] [place] [address] Monocytes/100 WBC (Bld) 6.4 % Normal 0.0-10.0 [facility] Comment on above: Order Comment: Order Added by Discern Expert. Performed By: #### 2 484056 #### CASSY RemHemo [address] [place] [address] Neutro Absolute 3.4 E3/mcL Normal 1.4-6.5 [facility] Comment on above: Order Comment: Order Added by Discern Expert. Performed By: #### 2 508745 #### CASSY RemHemo [address] [place] [address] Neutro Auto 56.6 % Normal 37.0-75.0 [facility] Comment on above: Order Comment: Order Added by Discern Expert. Performed By: #### 2 755545 #### CASSY RemHemo [address] [place] [address] BMPon 11-30-2017 Anion gap [Moles/Vol] 12 mmol/L Normal 6-16 [facility] Comment on above: Performed By: #### 2 677362 #### [facility] [employer] [address] [place] [address] Calcium [Mass/Vol] 9.8 mg/dL Normal 8.6-10.3 [facility] Comment on above: Performed By: #### 2 022666 #### CASSY [employer] [address] [place] [address] Chloride [Moles/Vol] 104 mmol/L Normal 98-107 [facility] Comment on above: Performed By: #### 2 974827 #### CASSY [employer] [address] [place] [address] CO2 [Moles/Vol] 26.0 mmol/L Normal 21.0-32.0 [facility] Comment on above: Performed By: #### 2 946738 #### CASSY [employer] [address] [place] [address] Creatinine [Mass/Vol] 0.9 mg/dL Normal 0.6-1.3 [facility] Comment on above: Performed By: #### 2 913231 #### CASSY [employer] [address] [place] [address] Glucose [Mass/Vol] 88 mg/dL Normal 70-99 [facility] Comment on above: Performed By: #### 2 207353 #### CASSY [employer] [address] [place] [address] Potassium [Moles/Vol] 3.0 mmol/L Low 3.5-5.3 [facility] Comment on above: Performed By: #### 2 682127 #### CASSY [employer] [address] [place] [address] Sodium [Moles/Vol] 139 mmol/L Normal 136-145 [facility] Comment on above: Performed By: #### 2 984248 #### CASSY [employer] [address] [place] [address] Urea nitrogen [Mass/Vol] 16 mg/dL Normal 6-23 [facility] Comment on above: Performed By: #### 2 003883 #### CASSY [employer] [address] [place] [address] Urea nitrogen/Creatinine [Mass ratio] 17.8 ratio Normal 5.4-30.0 [facility] Comment on above: Performed By: #### 2 018796 #### CASSY [employer] [address] [place] [address] BhCG Qualon 11-30-2017 Beta hCG Ql Negative Normal Negative [facility] Comment on above: Performed By: #### 2 328891 #### CASSY Chemistry Manual Subsection [address] [place] [address] CBC w/ Auto Diffon 8 Erythrocyte distribution width (RBC) [Ratio] 12.5 % Normal 11.5-14.5 [facility] Comment on above: Performed By: #### 2 998124 #### CASSY ValdezHemo [facility] [place] [address] Hematocrit (Bld) [Volume fraction] 41.4 % Normal 36.0-48.0 [facility] Comment on above: Performed By: #### 2 053937 #### CASSY ValdezHemo [address] [place] [address] Hemoglobin (Bld) [Mass/Vol] 13.8 g/dL Normal 12.0-16.0 [facility] Comment on above: Performed By: #### 2 [id number] #### CASSY ValdezHemo [address] [place] [address] 61790 MCH (RBC) [Entitic mass] 29.4 pg Normal 27.0-31.0 [facility] Comment on above: Performed By: #### 2 [id number] #### CASSY ValdezHemo [address] [place] [address] 76488 MCHC (RBC) [Mass/Vol] 33.2 g/dL Normal 33.0-37.0 [facility] Comment on above: Performed By: #### 2 [id number] #### CASSY ValdezHemo [address] [place] [address] 80382 MCV (RBC) [Entitic vol] 88.5 fL Normal 78.0-100.0 [facility] Comment on above: Performed By: #### 2 [id number] #### CASSY ValdezHemo [facility] [place] [address] Platelet mean volume (Bld) [Entitic vol] 8.6 fL Normal 7.4-11.0 [facility] Comment on above: Performed By: #### 2 [id number] #### CASSY ValdezHemo [facility] [place] [address] Platelets (Bld) [#/Vol] 246 E3/mcL Normal 130-400 [facility] Comment on above: Performed By: #### 2 [id number] #### CASSY ValdezHemo [address] [place] [address] 88224 RBC (Bld) [#/Vol] 4.68 E6/mcL Normal 3.90-5.40 [facility] Comment on above: Performed By: #### 2 [id number] #### CASSY Camacho [address] [place] [address] WBC (Bld) [#/Vol] 6.1 E3/mcL Normal 3.6-11.0 [facility] Comment on above: Performed By: #### 2 [id number] #### CASSY Staffordo [address] [place] [address] CTA Cheston 11-30-2017 CTA Chest Exam Date/Time: 11/30/2017 13:51 EDT Reason for Exam: Chest pain Report STUDY: CTA Chest; 11/30/2017 1:51 pm INDICATION: Chest pain. Left-sided chest pain, shoulder pain and jaw pain since this morning. COMPARISON: None. ACCESSION NUMBER(S): [id number] ORDERING CLINICIAN: Chon Perez TECHNIQUE: Initial contiguous unenhanced axial images were obtained through the chest. Helical data acquisition of the chest was obtained following intravenous administration of 100 mL Omnipaque 350 contrast. Images were reformatted in axial, coronal, and sagittal planes. MIP images as well as 3D volume rendered reformations were created and reviewed. FINDINGS: POTENTIAL LIMITATIONS OF THE STUDY:None HEART AND VESSELS: Unenhanced images through the chest show no appreciable atherosclerotic calcification of the thoracic aorta and no evidence of thoracic aortic intramural hematoma. There is no evidence of pulmonary embolism. There is no evidence of aortic dissection or aneurysm. No pericardial effusion. MEDIASTINUM AND BHAVNA, LOWER NECK AND AXILLA: No mediastinal or hilar lymphadenopathy. LUNGS AND AIRWAYS: The lungs are clear. No pleural effusion or pneumothorax. UPPER ABDOMEN: Included portions of the upper abdomen are unremarkable. CHEST WALL AND OSSEOUS STRUCTURES: Bones are intact. Exam Date/Time: 11/30/2017 13:51 EDT Report IMPRESSION: 1. No evidence of pulmonary embolism. 2. No evidence of aortic dissection or aneurysm. 3. No acute intrathoracic process. FINAL REPORT Dictated: 11/30/2017 2:03 pm Hilario George MD Signed (Electronic Signature): 11/30/2017 2:03 pm Signed by: Hilario George MD Technologist: MLL Normal [facility] D-Dimeron 11-30-2017 D-Dimer 0.29 mg/L FEU Normal <=0.50 [facility] Comment on above: Result Comment: Norm al D Dimer level indicates no Deep Vein Thrombosis (DVT) or Pulmonary Embolism (PE). Elevated D Dimer level indicates additional studies and clinical assessments are indicated to conclude diagnosis of Deep Vein Thromobsis (DVT) or Pulmonary Embolism (PE). Performed By: #### 2 [id number] #### CASSY Hematology Automated Subsection [address] [place] [address] Troponin-Ion 11-30-2017 Troponin I.cardiac [Mass/Vol] 0.01 ng/mL Normal .00-.03 [facility] Comment on above: Performed By: #### 2 [id number] #### CASSY RemHemo [address] [place] [address] XR Chest AP Portableon 11-30 XR Chest AP Portable Exam Date/Time: 11/30/2017 11:40 EDT Reason for Exam: Difficulty breathing Report STUDY: XR Chest AP Portable; 11/30/2017 11:40 am INDICATION: Difficulty breathing. COMPARISON: None. ACCESSION NUMBER(S): [id number] ORDERING CLINICIAN: Chon Perez FINDINGS: The heart is not enlarged. No infiltrate, pleural effusion or pneumothorax is seen. IMPRESSION: 1. No evidence of acute cardiopulmonary process. FINAL REPORT Dictated: 11/30/2017 12:18 pm Maria Luz Bright MD Signed (Electronic Signature): 11/30/2017 12:18 pm Signed by: Maria Luz Bright MD Technologist: TRD Normal [facility] eGFRon 11-30-2017 GFR/1.73 sq M predicted among non-blacks MDRD (S/P/Bld) [Vol rate/Area] mL/min/{1.73_m2} Normal [facility] Comment on above: Order Comment: Order added by Discern Expert. Performed By: #### 1 [id number] #### CASSY RemChem [address] [place] [address] PROGRESSon 06-17-2017 [facility] NOTES Normal [facility] CBC with Diffon 12-22-2016 Basophils Auto #/vol (Bld) 0.0 K/mcL Normal 0-0.2 [facility] Comment on above: Performed By: #### C BCDIF, LIPASE, CMET, [place] ####Unless otherwise noted, all testing performed by [place] [phone]: [id number] Director: Osman Cohn M.D. Basophils/100 WBC Auto (Bld) 0.3 % Normal [facility] Comment on above: Performed By: #### C BCDIF, LIPASE, CMET, [place] ####Unless otherwise noted, all testing performed by [place] [id number]: [id number] Director: Osman Cohn M.D. Eosinophils 0.0 K/mcL Normal 0-0.5 [facility] Comment on above: Performed By: #### C BCDIF, LIPASE, CMET, [place] ####Unless otherwise noted, all testing performed by [place] [id number]: [id number] Director: Osman Cohn M.D. Eosinophils/100 leukocytes 0.4 % Normal [facility] Comment on above: Performed By: #### C BCDIF, LIPASE, CMET, [place] ####Unless otherwise noted, all testing performed by [place] [address]CLIA: [id number] Director: Osman Cohn M.D. Erythrocyte distribution width Auto Ratio (RBC) 13.6 % Normal 10.0-14.4 [facility] Comment on above: Performed By: #### C BCDIF, LIPASE, CMET, [place] ####Unless otherwise noted, all testing performed by [address] [phone]: [id number] Director: Osman Cohn M.D. Erythrocytes (RBC) 4.92 M/mcL Normal 3.7-5.0 [facility] Comment on above: Performed By: #### C BCDIF, LIPASE, CMET, [place] ####Unless otherwise noted, all testing performed by [address] [phone]: [id number] Director: Osman Cohn M.D. Hematocrit (HCT) 44.2 % Normal 34.4-44.8 [facility] Comment on above: Performed By: #### C BCDIF, LIPASE, CMET, [place] ####Unless otherwise noted, all testing performed by [address] [phone]: [id number] Director: Osman Cohn M.D. Hemoglobin mass conc (Bld) 14.5 g/dL Normal 11.6-15.4 [facility] Comment on above: Performed By: #### C BCDIF, LIPASE, CMET, [place] ####Unless otherwise noted, all testing performed by [address] [phone]: [id number] Director: Osman Cohn M.D. Lymphocytes 0.6 K/mcL Low 1.0-3.7 [facility] Comment on above: Performed By: #### C BCDIF, LIPASE, CMET, [place] ####Unless otherwise noted, all testing performed by [address], [place] [phone]: [id number] Director: Osman Cohn M.D. Lymphocytes/100 leukocytes 7.5 % Normal [facility] Comment on above: Performed By: #### C BCDIF, LIPASE, CMET, [place] ####Unless otherwise noted, all testing performed by [address] [phone]: [id number] Director: Osman Cohn M.D. MCH 29.5 pg Normal 27.9-33.9 [facility] Comment on above: Performed By: #### C BCDIF, LIPASE, CMET, [place] ####Unless otherwise noted, all testing performed by [address] [phone]: [id number] Director: Osman Cohn M.D. MCHC mass conc (RBC) 32.8 g/dL Low 33.1-35.1 [facility] Comment on above: Performed By: #### C BCDIF, LIPASE, CMET, [place] ####Unless otherwise noted, all testing performed by [address] [phone]: [id number] Director: Osman Cohn M.D. MCV 89.9 fL Normal 82.6-98.9 [facility] Comment on above: Performed By: #### C BCDIF, LIPASE, CMET, [place] ####Unless otherwise noted, all testing performed by [address] [phone]: [id number] Director: Osman Suki, M.D. Monocytes 0.3 K/mcL Normal 0.1-0.6 [facility] Comment on above: Performed By: #### C BCDIF, LIPASE, CMET, [place] ####Unless otherwise noted, all testing performed by [address] [phone]: [id number] Director: Osman Cohn M.D. Monocytes/100 leukocytes 3.6 % Normal [facility] Comment on above: Performed By: #### C BCDIF, LIPASE, CMET, [place] ####Unless otherwise noted, all testing performed by [address]CLIA: [id number] Director: Osman Cohn M.D. Neutrophils 6.8 K/mcL Normal 1.2-6.9 [facility] Comment on above: Performed By: #### C BCDIF, LIPASE, CMET, [place] ####Unless otherwise noted, all testing performed by [address]CLIA: [id number] Director: Osman Cohn M.D. Platelet mean volume (PMV) 8.9 fL Normal 7.0-10.6 [facility] Comment on above: Performed By: #### C BCDIF, LIPASE, CMET, [place] ####Unless otherwise noted, all testing performed by [place] [address]CLIA: [id number] Director: Osman Cohn M.D. Platelets 190 K/mcL Normal 162-402 [facility] Comment on above: Performed By: #### C BCDIF, LIPASE, CMET, [place] ####Unless otherwise noted, all testing performed by [address] [phone]: [id number] Director: Osman Cohn M.D. Segmented Neut % 88.2 % Normal [facility] Comment on above: Performed By: #### C BCDIF, LIPASE, CMET, [place] ####Unless otherwise noted, all testing performed by [address] [phone]: [id number] Director: Osman Cohn M.D. WBC (Leukocytes) 7.7 K/mcL Normal 3.4-10.6 [facility] Comment on above: Performed By: #### C BCDIF, LIPASE, CMET, [place] ####Unless otherwise noted, all testing performed by [address] [phone]: [id number] Director: Osman Cohn M.D. CT ABDO,PELVIS W/O CONTRASTo n 12-22-2016 CT ABDO,PELVIS W/O CONTRAST Final ReportAccession No: [id number] Performed: Dec 22 2016 7:33PMExamination: CT ABDO,PELVIS W/O CONTRASTCLINICAL HISTORY: Patient states having right lower quadrant pain andflank pain. Blood in the stool.CT ABDOMEN AND CT PELVIS WITHOUT CONTRAST 12/22/2016 AT 7:33 P.M.:PREVIOUS EXAM: None available.TECHNIQUE: Multiple helically acquired CT images are obtained through theabdomen and pelvis without contrast.FINDINGS: The lung bases are clear.The liver, gallbladder, spleen, pancreas, adrenals and urinary bladderare unremarkable.There is no evidence of acute appendicitis.The urinary bladder is unremarkable. The uterus and ovaries are not wellseen.Skeletal structures are unremarkable.IMPRESSION: No acute intra-abdominal pathology.Chan Harris, SHAHANAW/NISHANTElectronically Signed by and VerifiedDate Report Signed: 12/23/2016 10:48:22 AMInterpreting Physician: ABHAYTrans: [id number] : cc: Normal [facility] Comprehensive Metabolic Pane bladimir 12-22-2016 Alanine aminotransferase (ALT) 26 U/L Normal 14-65 [facility] Comment on above: Result Comment: This test result might be falsely depressed or falsely elevated onsamples drawn from patients taking Sulfasalazine and Sulfapyridine.Venipuncture should occur prior to taking either of these drugs. Performed By: #### C BCDIF, LIPASE, CMET, [place] ####Unless otherwise noted, all testing performed by [address] [phone]: [id number] Director: Osman Cohn M.D. Albumin 4.0 g/dL Normal 3.2-5.2 [facility] Comment on above: Performed By: #### C BCDIF, LIPASE, CMET, [place] ####Unless otherwise noted, all testing performed by [address] [phone]: [id number] Director: Osman Cohn M.D. Alkaline phosphatase (ALP) 66 U/L Normal 40-140 [facility] Comment on above: Performed By: #### C BCDIF, LIPASE, CMET, [place] ####Unless otherwise noted, all testing performed by [address] [phone]: [id number] Director: Osman Cohn M.D. Aspartate aminotransferase (AST) 16 U/L Normal 0-45 [facility] Comment on above: Result Comment: This test result might be falsely depressed or falsely elevated onsamples drawn from patients taking Sulfasalazine and Sulfapyridine.Venipuncture should occur prior to taking either of these drugs. Performed By: #### C BCDIF, LIPASE, CMET, [place] ####Unless otherwise noted, all testing performed by [address] [phone]: [id number] Director: Osman Cohn M.D. Bilirubin (total) 0.6 mg/dL Normal 0.3-1.2 [facility] Comment on above: Performed By: #### C BCDIF, LIPASE, CMET, [place] ####Unless otherwise noted, all testing performed by [address] [phone]: [id number] Director: Osman Cohn M.D. Calcium 9.4 mg/dL Normal 8.4-10.2 [facility] Comment on above: Performed By: #### C BCDIF, LIPASE, CMET, [place] ####Unless otherwise noted, all testing performed by [place] [phone]: [id number] Director: Osman Cohn M.D. Chloride 106 mmol/L Normal 98-108 [facility] Comment on above: Performed By: #### C BCDIF, LIPASE, CMET, [place] ####Unless otherwise noted, all testing performed by [address] [phone]: [id number] Director: Osman Cohn M.D. CO2 22 mmol/L Normal 21-32 [facility] Comment on above: Performed By: #### C BCDIF, LIPASE, CMET, [place] ####Unless otherwise noted, all testing performed by [address] [phone]: [id number] Director: Osman Cohn M.D. Creatinine 0.88 mg/dL Normal 0.40-1.10 [facility] Comment on above: Performed By: #### C BCDIF, LIPASE, CMET, [place] ####Unless otherwise noted, all testing performed by [address] [phone]: [id number] Director: Osman Cohn M.D. eGFR (black) mL/min/{1.73_m2} Normal [facility] Comment on above: Result Comment: Afri can Cymro GFR Calc Performed By: #### C BCDIF, LIPASE, CMET, [place] ####Unless otherwise noted, all testing performed by [place] [phone]: [id number] Director: Osman Cohn M.D. eGFR (non-black) mL/min/{1.73_m2} Normal [facility] Comment on above: Result Comment: Non- GFR CalceGFR is an estimated Glomerular Filtration Rate based on the valueof the patient's serum creatinine. In outpatients, eGFR should be usedas a helpful tool in screening for CKD. In inpatients or patients withacute renal failure, eGFR represents the GFR at the moment of the drawand should be used with caution. Performed By: #### C BCDIF, LIPASE, CMET, LA ####Unless otherwise noted, all testing performed by [address] [phone]: [id number] Director: Osman Cohn M.D. Glucose mass conc 85 mg/dL Normal 70-99 [facility] Comment on above: Result Comment: This test result might be falsely depressed or falsely elevated onsamples drawn from patients taking Sulfasalazine and Sulfapyridine.Venipuncture should occur prior to taking either of these drugs. Performed By: #### C BCDIF, LIPASE, CMET, LA ####Unless otherwise noted, all testing performed by [address] [phone]: [id number] Director: Osman Cohn M.D. Potassium molar conc 4.1 mmol/L Normal 3.5-5.1 [facility] Comment on above: Performed By: #### C BCDIF, LIPASE, CMET, LA ####Unless otherwise noted, all testing performed by [address]CLIA: [id number] Director: Osman Cohn M.D. Protein 8.6 g/dL High 6.0-8.0 [facility] Comment on above: Performed By: #### C BCDIF, LIPASE, CMET, [place] ####Unless otherwise noted, all testing performed by [address]8[address]CLIA: [id number] Director: Osman Cohn M.D. Sodium 137 mmol/L Normal 135-145 [facility] Comment on above: Performed By: #### C BCDIF, LIPASE, CMET, [place] ####Unless otherwise noted, all testing performed by [place] [id number]: [id number] Director: Osman Cohn M.D. Urea nitrogen 12 mg/dL Normal 8-25 [facility] Comment on above: Performed By: #### C BCDIF, LIPASE, CMET, LA ####Unless otherwise noted, all testing performed by [place] [address] [place], [place] [phone]: [id number] Director: Osman Cohn M.D. Lactic Acidon 12-22-2016 Lactate 1.1 mmol/L Normal 0.6-2.0 [facility] Comment on above: Performed By: #### C BCDIF, LIPASE, CMET, [place] ####Unless otherwise noted, all testing performed by [address] [phone]: [id number] Director: Osman Cohn M.D. Lipaseon 12-22-2016 Lipase 162 U/L Normal 73-393 [facility] Comment on above: Performed By: #### C BCDIF, LIPASE, CMET, [place] ####Unless otherwise noted, all testing performed by [address] [phone]: [id number] Director: Osman Cohn M.D. Test,Urine Qualon 12-22-2016 HCG.beta subunit ( test) Ql (U) Negative Normal Negative [facility] Comment on above: Result Comment: Rapi d test procedural control acceptable.If a negative result is obtained but is suspected, hCG levelsmay be too low or urine may be too dilute for detection. Another specimenshould be collected after 48-72 hours and tested. If waiting 48 hours isnot medically advisable, the test result should be confirmed with a moresensitive quantitative serum hCG test. Performed By: #### P REGUR ####Unless otherwise noted, all testing performed by [address] [phone]: [id number] Director: Osman Cohn M.D. Urinalysis, Routineon 2016 Bilirubin,Urine Negative Normal NEG;NEGATI VE [facility] Comment on above: Performed By: #### U A ####Unless otherwise noted, all testing performed by [address] [phone]: [id number] Director: Osman Cohn M.D. Blood,Urine Negative Normal NEG;NEGATI VE [facility] Comment on above: Performed By: #### U A ####Unless otherwise noted, all testing performed by [address] [phone]: [id number] Director: Osman Cohn M.D. Ketone,Urine >= 80 High <10 [facility] Comment on above: Performed By: #### U A ####Unless otherwise noted, all testing performed by [address] [phone]: [id number] Director: Osman Cohn M.D. Leuk.Esterase,Urine Negative Normal Negative [facility] Comment on above: Performed By: #### U A ####Unless otherwise noted, all testing performed by [address] [phone]: [id number] Director: Osman Cohn M.D. Nitrite,Urine Negative Normal NEG;NEGATI VE [facility] Comment on above: Performed By: #### U A ####Unless otherwise noted, all testing performed by [address] [phone]: [id number] Director: Osman Cohn M.D. Protein,Urine Negative Normal NEG;NEGATI VE [facility] Comment on above: Performed By: #### U A ####Unless otherwise noted, all testing performed by [address] [phone]: [id number] Director: Osman Cohn M.D. Specific [place],Urine 1.017 Normal 1.003 -1.02 9 [facility] Comment on above: Performed By: #### U A ####Unless otherwise noted, all testing performed by [place] [id number]: [id number] Director: Osman Conh M.D. Squamous Epithelial 2 /HPF Normal 0-40 [facility] Comment on above: Performed By: #### U A ####Unless otherwise noted, all testing performed by [address] [phone]: [id number] Director: Osman Cohn M.D. Urine, character Hazy Normal [facility] Comment on above: Performed By: #### U A ####Unless otherwise noted, all testing performed by [address] [phone]: [id number] Director: Osman Cohn M.D. Urine, color Yellow Normal [facility] Comment on above: Performed By: #### U A ####Unless otherwise noted, all testing performed by [address] [phone]: [id number] Director: Osman Cohn M.D. Urine, erythrocytes in sediment by area /[HPF] Normal 0-5 [facility] Comment on above: Performed By: #### U A ####Unless otherwise noted, all testing performed by [address] [phone]: [id number] Director: Osman Cohn M.D. Urine, glucose presence Negative Normal NEG; NEGATI VE [facility] Comment on above: Performed By: #### U A ####Unless otherwise noted, all testing performed by [phone]: [id number] Director: Osman Cohn M.D. Urine, leukocytes in sedmiment 1 /[HPF] Normal 0-5 [facility] Comment on above: Performed By: #### U A ####Unless otherwise noted, all testing performed by [place] [phone]: [id number] Director: Osman Cohn M.D. Urine, pH 5.0 [pH] Normal 4.5-8.0 [facility] Comment on above: Performed By: #### U A ####Unless otherwise noted, all testing performed by [address] [phone]: [id number] Director: Osman Cohn M.D. Urobilinogen,Urine < 2.0 Normal <2 [facility] Comment on above: Performed By: #### U A ####Unless otherwise noted, all testing performed by [place] [phone]: [id number] Director: Isac Kramer Post-opon 09-19-2016 [facility] HIM CAC NOTES [facility] NURSING NOTEon 09-19-2016 [facility] NOT[facility] Vital Signs Date Time Vital Sign Value Performing Clinician Facility 10-19-2024 10:27-0400 Body mass index (BMI) [Ratio] 26.09 kg/m2 Timmy Mariano MD Work Phone: [facility] 10-19-2024 10:27-0400 Body weight 68.95 kg Timmy Mariano MD Work Phone: [facility] 10-19-2024 10:27-0400 Diastolic blood pressure 78 mm[Hg] Timmy Mariano MD Work Phone: [facility] 10-19-2024 10:27-0400 Heart rate 91 /min Timmy Mariano MD Work Phone: [facility] 10-19-2024 10:27-0400 SaO2% (BldA) [Mass fraction] 97 % Timmy Mariano MD Work Phone: [facility] 10-19-2024 10:27-0400 Systolic blood pressure 100 mm[Hg] Timmy Mariano MD Work Phone: [facility] 08-24-2024 13:54-0400 Body temperature 98.6 [degF] Winsome Cuevas HEALTH NAVIGATOR-C Work Phone: [facility] 08-24-2024 13:54-0400 Diastolic blood pressure 79 mm[Hg] Winsome Cuevas HEALTH NAVIGATOR-C Work Phone: [facility] 08-24-2024 13:54-0400 Heart rate 89 /min Winsome Cuevas HEALTH NAVIGATOR-C Work Phone: [facility] 08-24-2024 13:54-0400 Respiratory rate 16 /min Winsome [place] HEALTH NAVIGATOR-C Work Phone: [facility] 08-24-2024 13:54-0400 SaO2% (BldA) [Mass fraction] 99 % Winsome Kovacsy HEALTH NAVIGATOR-C Work Phone: [facility] 08-24-2024 13:54-0400 Systolic blood pressure 113 mm[Hg] Winsome Kovacsy HEALTH NAVIGATOR-C Work Phone: [facility] 08-24-2024 11:13-0400 Body height 162.56 cm Winsome Mason HEALTH NAVIGATOR-C Work Phone: [facility] 08-24-2024 11:13-0400 Body mass index (BMI) [Ratio] 26.9 kg/m2 Winsome Mason HEALTH NAVIGATOR-C Work Phone: [facility] 08-24-2024 11:13-0400 Body weight 71 kg Winsome Mason HEALTH NAVIGATOR-C Work Phone: [facility] 08-03-2024 16:08-0400 Body mass index (BMI) [Ratio] 26.5 kg/m2 Winsome Mason CAR SWEEPER-DECK MECHANIC Work Phone: [facility] 08-03-2024 16:08-0400 Body weight 70.03 kg Winsome Amson CAR SWEEPER-DECK MECHANIC Work Phone: [facility] 08-03-2024 16:08-0400 Diastolic blood pressure 73 mm[Hg] Winsome [place] CAR SWEEPER-DECK MECHANIC Work Phone: [facility] 08-03-2024 16:08-0400 Heart rate 88 /min Winsome [place] CAR SWEEPER-DECK MECHANIC Work Phone: [facility] 08-03-2024 16:08-0400 Systolic blood pressure 104 mm[Hg] Winsome [place] CAR SWEEPER-DECK MECHANIC Work Phone: [facility] 08-03-2024 15:22-0400 Body mass index (BMI) [Ratio] 25.92 kg/m2 Timmy Mariano MD Work Phone: [facility] 08-03-2024 15:22-0400 Body weight 68.49 kg Timmy Mariano MD Work Phone: [facility] 08-03-2024 15:22-0400 Diastolic blood pressure 80 mm[Hg] Timmy Mariano MD Work Phone: [facility] 08-03-2024 15:22-0400 Heart rate 84 /min Timmy Mariano MD Work Phone: [facility] 08-03-2024 15:22-0400 SaO2% (BldA) [Mass fraction] 97 % Timmy Mariano MD Work Phone: [facility] 08-03-2024 15:22-0400 Systolic blood pressure 116 mm[Hg] Timmy Mariano MD Work Phone: [facility] 07-20-2024 08:38-0400 Diastolic blood pressure 83 mm[Hg] Stef Maki DO Work Phone: [facility] 07-20-2024 08:38-0400 Heart rate 77 /min Stef Maki DO Work Phone: [facility] 07-20-2024 08:38-0400 Respiratory rate 12 /min Stef Maki DO Work Phone: [facility] 07-20-2024 08:38-0400 Systolic blood pressure 116 mm[Hg] Stef Maki DO Work Phone: [facility] 06-27-2024 23:39-0400 Body temperature 98 [degF] Winsome Cuevas HEALTH NAVIGATOR-C Work Phone: [facility] 06-27-2024 23:39-0400 Diastolic blood pressure 67 mm[Hg] Winsome Cuevas HEALTH NAVIGATOR-C Work Phone: [facility] 06-27-2024 23:39-0400 Heart rate 79 /min Winsome Cuevas HEALTH NAVIGATOR-C Work Phone: [facility] 06-27-2024 23:39-0400 Respiratory rate 18 /min Winsome Cuevas HEALTH NAVIGATOR-C Work Phone: [facility] 06-27-2024 23:39-0400 SaO2% (BldA) [Mass fraction] 96 % Winsome Cuevas HEALTH NAVIGATOR-C Work Phone: [facility] 06-27-2024 23:39-0400 Systolic blood pressure 107 mm[Hg] Winsome Cuevas HEALTH NAVIGATOR-C Work Phone: [facility] 06-27-2024 19:25-0400 Body height 162.56 cm Winsome Cuevas HEALTH NAVIGATOR-C Work Phone: [facility] 06-27-2024 19:25-0400 Body mass index (BMI) [Ratio] 28.3 kg/m2 Winsome Cuevas HEALTH NAVIGATOR-C Work Phone: [facility] 06-27-2024 19:25-0400 Body weight 74.7 kg Winsome Cuevas HEALTH NAVIGATOR-C Work Phone: [facility] 06-24-2024 07:53-0400 Body temperature 97.9 [degF] Zuleima Rohl DO Work Phone: [facility] 06-24-2024 07:53-0400 Diastolic blood pressure 65 mm[Hg] Zuleima Rohl DO Work Phone: [facility] 06-24-2024 07:53-0400 Heart rate 62 /min Zuleima Rohl DO Work Phone: [facility] 06-24-2024 07:53-0400 Respiratory rate 16 /min Zuleima Rohl DO Work Phone: [facility] 06-24-2024 07:53-0400 Systolic blood pressure 101 mm[Hg] Zuleima Rohl DO Work Phone: [facility] 06-24-2024 06:28-0400 SaO2% (BldA) [Mass fraction] 100 % Zuleima Rohl DO Work Phone: [facility] 06-23-2024 05:25-0400 Body height 162.6 cm Zuleima Thomas DO Work Phone: [facility] 06-23-2024 05:25-0400 Body mass index (BMI) [Ratio] 25.66 kg/m2 Zuleima Thomas DO Work Phone: [facility] 06-23-2024 05:25-0400 Body weight 67.81 kg Zuleima Thomas DO Work Phone: [facility] 06-01-2024 08:31-0400 Body mass index (BMI) [Ratio] 25.58 kg/m2 Mesha Garcia PA-C Work Phone: [facility] 06-01-2024 08:31-0400 Body weight 67.59 kg Mesha Garcia PA-C Work Phone: [facility] 06-01-2024 08:31-0400 Diastolic blood pressure 68 mm[Hg] Mesha Garcia PA-C Work Phone: [facility] 06-01-2024 08:31-0400 Heart rate 89 /min Mesha Garcia PA-C Work Phone: [facility] 06-01-2024 08:31-0400 Respiratory rate 16 /min Mesha Garcia PA-C Work Phone: [facility] 06-01-2024 08:31-0400 Systolic blood pressure 107 mm[Hg] Mesha Garcia PA-C Work Phone: [facility] 05-18-2024 09:31-0400 Body temperature 98.2 [degF] Alexandru Ramirez Jr. DPM Work Phone: [facility] 05-18-2024 09:31-0400 Diastolic blood pressure 65 mm[Hg] Alexandru Ramirez Jr., DPM Work Phone: [facility] 05-18-2024 09:31-0400 Heart rate 73 /min Alexandru Ramirez Jr., DPM Work Phone: [facility] 05-18-2024 09:31-0400 Systolic blood pressure 99 mm[Hg] Alexandru Ramirez Jr., DPM Work Phone: [facility] 05-18-2024 08:16-0400 Body height 162.6 cm Mesha Garcia PA-C Work Phone: [facility] 05-18-2024 08:16-0400 Body mass index (BMI) [Ratio] 25.4 kg/m2 Mesha Garcia PA-C Work Phone: [facility] 05-18-2024 08:16-0400 Body weight 67.13 kg Mesha Garcia PA-C Work Phone: [facility] 05-18-2024 08:16-0400 Diastolic blood pressure 72 mm[Hg] Mesha Garcia PA-C Work Phone: [facility] 05-18-2024 08:16-0400 Heart rate 74 /min Mesha Garcia PA-C Work Phone: [facility] 05-18-2024 08:16-0400 Respiratory rate 16 /min Mesha Garcia PA-C Work Phone: [facility] 05-18-2024 08:16-0400 Systolic blood pressure 106 mm[Hg] Mesha Garcia PA-C Work Phone: [facility] 04-18-2024 10:45-0500 Body temperature 98.5 [degF] Winsome Cuevas HEALTH NAVIGATOR-C Work Phone: [facility] 04-18-2024 10:45-0500 Diastolic blood pressure 75 mm[Hg] Winsome Cuevas HEALTH NAVIGATOR-C Work Phone: [facility] 04-18-2024 10:45-0500 Heart rate 80 /min Winsmoe Cuevas HEALTH NAVIGATOR-C Work Phone: [facility] 04-18-2024 10:45-0500 Respiratory rate 16 /min Winsome Cuevas HEALTH NAVIGATOR-C Work Phone: [facility] 04-18-2024 10:45-0500 SaO2% (BldA) [Mass fraction] 99 % Winsome Cuevas HEALTH NAVIGATOR-C Work Phone: [facility] 04-18-2024 10:45-0500 Systolic blood pressure 108 mm[Hg] Winsome Cuevas HEALTH NAVIGATOR-C Work Phone: [facility] 04-18-2024 10:15-0500 Inhaled oxygen flow rate 5 L/min Winsome Kovacsy HEALTH NAVIGATOR-C Work Phone: [facility] 04-18-2024 07:41-0500 Body mass index (BMI) [Ratio] 25.1 kg/m2 Winsome Kovacsy HEALTH NAVIGATOR-C Work Phone: [facility] 04-18-2024 07:41-0500 Body weight 66.4 kg Winsome Kovacsy HEALTH NAVIGATOR-C Work Phone: [facility] 03-30-2024 12:37-0500 Body mass index (BMI) [Ratio] 24.89 kg/m2 Winsome Mason CAR SWEEPER-DECK MECHANIC Work Phone: [facility] 03-30-2024 12:37-0500 Body weight 65.77 kg Winsome [place] CAR SWEEPER-DECK MECHANIC Work Phone: [facility] 03-30-2024 12:37-0500 Diastolic blood pressure 73 mm[Hg] Wnisome Kovacsy CAR SWEEPER-DECK MECHANIC Work Phone: [facility] 03-30-2024 12:37-0500 Heart rate 94 /min Winsome Mason CAR SWEEPER-DECK MECHANIC Work Phone: [facility] 03-30-2024 12:37-0500 SaO2% (BldA) [Mass fraction] 96 % Winsome [place] CAR SWEEPER-DECK MECHANIC Work Phone: [facility] 03-30-2024 12:37-0500 Systolic blood pressure 107 mm[Hg] Winsome Kovacsy CAR SWEEPER-DECK MECHANIC Work Phone: [place] [facility] 03-23-2024 08:00-0500 Body mass index (BMI) [Ratio] 25.23 kg/m2 Mesha Garcia PA-C Work Phone: [facility] 03-23-2024 08:00-0500 Body weight 66.68 kg Mesha Garcia PA-C Work Phone: [facility] 03-23-2024 08:00-0500 Diastolic blood pressure 73 mm[Hg] Mesha Garcia PA-C Work Phone: [facility] 03-23-2024 08:00-0500 Heart rate 76 /min Mesha Garcia PA-C Work Phone: [facility] 03-23-2024 08:00-0500 Respiratory rate 14 /min Mesha Garcia PA-C Work Phone: [facility] 03-23-2024 08:00-0500 Systolic blood pressure 106 mm[Hg] Mesha Garcia PA-C Work Phone: [facility] 03-10-2024 04:07-0500 Body temperature 98 [degF] Winsome Kovacsy HEALTH NAVIGATOR-C Work Phone: [facility] 03-10-2024 04:07-0500 Diastolic blood pressure 77 mm[Hg] Winsome Kovacsy HEALTH NAVIGATOR-C Work Phone: [facility] 03-10-2024 04:07-0500 Heart rate 101 /min Winsome Kovacsy HEALTH NAVIGATOR-C Work Phone: [facility] 03-10-2024 04:07-0500 Respiratory rate 21 /min Winsome [place] HEALTH NAVIGATOR-C Work Phone: [facility] 03-10-2024 04:07-0500 SaO2% (BldA) [Mass fraction] 100 % Winsome Cuevas HEALTH NAVIGATOR-C Work Phone: [facility] 03-10-2024 04:07-0500 Systolic blood pressure 111 mm[Hg] Winsome Cuevas HEALTH NAVIGATOR-C Work Phone: [facility] 03-10-2024 00:45-0500 Body mass index (BMI) [Ratio] 27.4 kg/m2 Winsome Mason HEALTH NAVIGATOR-C Work Phone: [facility] 03-10-2024 00:45-0500 Body weight 72.5 kg Winsome Mason HEALTH NAVIGATOR-C Work Phone: [facility] 02-03-2024 13:16-0500 Body height 162.6 cm Timmy Mariano MD Work Phone: [facility] 02-03-2024 13:16-0500 Body mass index (BMI) [Ratio] 26.25 kg/m2 Timmy Mariano MD Work Phone: [facility] 02-03-2024 13:16-0500 Body weight 69.36 kg Timmy Mariano MD Work Phone: [facility] 02-03-2024 13:16-0500 Diastolic blood pressure 70 mm[Hg] Timmy Mariano MD Work Phone: [facility] 02-03-2024 13:16-0500 Heart rate 73 /min Timmy Mariano MD Work Phone: [facility] 02-03-2024 13:16-0500 Respiratory rate 16 /min Timmy Mariano MD Work Phone: [facility] 02-03-2024 13:16-0500 SaO2% (BldA) [Mass fraction] 98 % Timmy Mariano MD Work Phone: [facility] 02-03-2024 13:16-0500 Systolic blood pressure 106 mm[Hg] Timmy Mariano MD Work Phone: [facility] 01-27-2024 15:33-0500 Body mass index (BMI) [Ratio] 26.37 kg/m2 Winsome Cuevas APRN-DECK MECHANIC Work Phone: [facility] 01-27-2024 15:33-0500 Body temperature 98.4 [degF] Winsome Cuevas APRN-DECK MECHANIC Work Phone: [place] [facility] 01-27-2024 15:33-0500 Body weight 69.67 kg Winsome Cuevas CAR SWEEPER-DECK MECHANIC Work Phone: [place] [facility] 01-27-2024 15:33-0500 Diastolic blood pressure 63 mm[Hg] Winsome Cuevas CAR SWEEPER-DECK MECHANIC Work Phone: [facility] 01-27-2024 15:33-0500 Heart rate 67 /min Winsome Cuevas CAR SWEEPER-DECK MECHANIC Work Phone: [facility] 01-27-2024 15:33-0500 SaO2% (BldA) [Mass fraction] 100 % Winsome Cuevas CAR SWEEPER-DECK MECHANIC Work Phone: [place] [facility] 01-27-2024 15:33-0500 Systolic blood pressure 99 mm[Hg] Winsome Cuevas CAR SWEEPER-DECK MECHANIC Work Phone: [facility] 01-20-2024 08:02-0500 Body mass index (BMI) [Ratio] 26.61 kg/m2 Meshawalter Garcia PA-C Work Phone: [facility] 01-20-2024 08:02-0500 Body weight 70.31 kg Mseha Garcia PA-C Work Phone: [facility] 01-20-2024 08:02-0500 Diastolic blood pressure 71 mm[Hg] Mesha Garcia PA-C Work Phone: [facility] 01-20-2024 08:02-0500 Heart rate 96 /min Mesha Garcia PA-C Work Phone: [facility] 01-20-2024 08:02-0500 Respiratory rate 14 /min Mesha Garcia PA-C Work Phone: [facility] 01-20-2024 08:02-0500 Systolic blood pressure 114 mm[Hg] Mesha Garcia PA-C Work Phone: [facility] 12-11-2023 08:57-0400 Diastolic blood pressure 77 mm[Hg] [address] 12-11-2023 08:57-0400 Heart rate 86 /min [address] 12-11-2023 08:57-0400 Respiratory rate 16 /min [address] 12-11-2023 08:57-0400 SaO2% (BldA) [Mass fraction] 100 % [address] 12-11-2023 08:57-0400 Systolic blood pressure 114 mm[Hg] [address] 12-11-2023 08:29-0400 Body temperature 98.01 [degF] [address] 12-11-2023 07:02-0400 Body mass index (BMI) [Ratio] 25.81 kg/m2 [address] 12-11-2023 07:02-0400 Body weight 68.[address] 11-30-2023 08:11-0400 Diastolic blood pressure 85 mm[Hg] Ivelisse Gaston CAR SWEEPER-DECK MECHANIC Work Phone: [facility] 11-30-2023 08:11-0400 Heart rate 93 /min Ivelisse Gaston CAR SWEEPER-DECK MECHANIC Work Phone: [facility] 11-30-2023 08:11-0400 Systolic blood pressure 145 mm[Hg] Ivelisse Gaston CAR SWEEPER-DECK MECHANIC Work Phone: [facility] 11-20-2023 09:15-0400 Diastolic blood pressure 85 mm[Hg] [address] 11-20-2023 09:15-0400 Heart rate 82 /min [address] 11-20-2023 09:15-0400 Respiratory rate 20 /min [address] 11-20-2023 09:15-0400 SaO2% (BldA) [Mass fraction] 100 % [address] 11-20-2023 09:15-0400 Systolic blood pressure 121 mm[Hg] [address] 11-20-2023 08:52-0400 Body temperature 98.1 [degF] [address] 11-20-2023 07:10-0400 Body height 162.[address] 11-20-2023 07:10-0400 Body mass index (BMI) [Ratio] 25.92 kg/m2 [address] 11-20-2023 07:10-0400 Body weight 68.[address] 11-04-2023 10:04-0400 Diastolic blood pressure 77 mm[Hg] Mesha [employer] Work Phone: [facility] 11-04-2023 10:04-0400 Heart rate 82 /min Mesha [employer] Work Phone: [facility] 11-04-2023 10:04-0400 Systolic blood pressure 113 mm[Hg] Mesha [employer] Work Phone: [facility] 10-30-2023 11:10-0400 Diastolic blood pressure 84 mm[Hg] [address] 10-30-2023 11:10-0400 Heart rate 78 /min [address] 10-30-2023 11:10-0400 Respiratory rate 16 /min [address] 10-30-2023 11:10-0400 SaO2% (BldA) [Mass fraction] 100 % [address] 10-30-2023 11:10-0400 Systolic blood pressure 111 mm[Hg] [address] 10-30-2023 10:54-0400 Body temperature 99.39 [degF] [address] 10-30-2023 09:45-0400 Body height 162.[address] 10-30-2023 09:45-0400 Body mass index (BMI) [Ratio] 25.92 kg/m2 [address] 10-30-2023 09:45-0400 Body weight 68.[address] 10-21-2023 13:08-0400 Body temperature 98.71 [degF] Alexandru Ramirez Jr., DPM Work Phone: [facility] 10-21-2023 13:08-0400 Diastolic blood pressure 79 mm[Hg] Alexandru Ramirez Jr., DPM Work Phone: [facility] 10-21-2023 13:08-0400 Heart rate 93 /min Alexandru Ramirez Jr., DPM Work Phone: [facility] 10-21-2023 13:08-0400 SaO2% (BldA) [Mass fraction] 98 % Alexandru Ramirez Jr., DPM Work Phone: [facility] 10-21-2023 13:08-0400 Systolic blood pressure 124 mm[Hg] Alexandru Ramirez Jr., DPM Work Phone: [facility] 10-16-2023 13:05-0400 Body mass index (BMI) [Ratio] 26.21 kg/m2 Winsome Cuevas APRN-DECK MECHANIC Work Phone: [facility] 10-16-2023 13:05-0400 Body weight 69.26 kg Winsome Mason CAR SWEEPER-DECK MECHANIC Work Phone: [facility] 10-16-2023 13:05-0400 Diastolic blood pressure 74 mm[Hg] Winsome Cuevas CAR SWEEPER-DECK MECHANIC Work Phone: [facility] 10-16-2023 13:05-0400 Heart rate 88 /min Winsome Cuevas CAR SWEEPER-DECK MECHANIC Work Phone: [facility] 10-16-2023 13:05-0400 Systolic blood pressure 107 mm[Hg] Winsome Cuevas CAR SWEEPER-DECK MECHANIC Work Phone: [facility] 10-14-2023 15:09-0400 Body temperature 98.2 [degF] Alexandru Ramirez Jr., DPM Work Phone: [facility] 10-14-2023 15:09-0400 Diastolic blood pressure 68 mm[Hg] Alexandru Ramirez Jr., DPM Work Phone: [facility] 10-14-2023 15:09-0400 Heart rate 94 /min Alexandru Ramirez Jr., DPM Work Phone: [facility] 10-14-2023 15:09-0400 Systolic blood pressure 101 mm[Hg] Alexandru Ramirez Jr., DPM Work Phone: [facility] 10-08-2023 09:03-0400 Body mass index (BMI) [Ratio] 26.63 kg/m2 Meshawalter Garcia PA-C Work Phone: [facility] 10-08-2023 09:03-0400 Body weight 70.31 kg Mesha Garcia PA-C Work Phone: [facility] 10-08-2023 09:03-0400 Diastolic blood pressure 82 mm[Hg] Mesha Garcia PA-C Work Phone: [facility] 10-08-2023 09:03-0400 Heart rate 92 /min Meshawalter Garcia PA-C Work Phone: [facility] 10-08-2023 09:03-0400 Respiratory rate 14 /min Mesha Garcia PA-C Work Phone: [facility] 10-08-2023 09:03-0400 Systolic blood pressure 120 mm[Hg] Mesha Garcia PA-C Work Phone: [facility] 09-30-2023 08:53-0400 Body mass index (BMI) [Ratio] 26.18 kg/m2 Timmy Mariano MD Work Phone: [facility] 09-30-2023 08:53-0400 Body weight 69.17 kg Timmy Mariano MD Work Phone: [facility] 09-30-2023 08:53-0400 Diastolic blood pressure 80 mm[Hg] Timmy Mariano MD Work Phone: [facility] 09-30-2023 08:53-0400 Systolic blood pressure 122 mm[Hg] Timmy Mariano MD Work Phone: [facility] 09-08-2023 07:50-0400 Body height 162.6 cm Lindsay Pearson MD Work Phone: [facility] 09-08-2023 07:50-0400 Body mass index (BMI) [Ratio] 27.05 kg/m2 Lindsay Pearson MD Work Phone: [facility] 09-08-2023 07:50-0400 Body weight 71.49 kg Lindsay Pearson MD Work Phone: [facility] 09-08-2023 07:50-0400 Diastolic blood pressure 77 mm[Hg] Lindsay Pearson MD Work Phone: [facility] 09-08-2023 07:50-0400 Heart rate 67 /min Lindsay Pearson MD Work Phone: [facility] 09-08-2023 07:50-0400 SaO2% (BldA) [Mass fraction] 98 % Lindsay Pearson MD Work Phone: [facility] 09-08-2023 07:50-0400 Systolic blood pressure 110 mm[Hg] Lindsay Pearson MD Work Phone: [facility] 09-07-2023 09:41-0400 Body height 162.6 cm Winsome Cuevas APRN-DECK MECHANIC Work Phone: [facility] 09-07-2023 09:41-0400 Body mass index (BMI) [Ratio] 25.54 kg/m2 Winsome Cuevas CAR SWEEPER-DECK MECHANIC Work Phone: [facility] 09-07-2023 09:41-0400 Body temperature 97.59 [degF] Winsome Cuevas CAR SWEEPER-DECK MECHANIC Work Phone: [facility] 09-07-2023 09:41-0400 Body weight 67.5 kg Winsome Cuevas APRN-DECK MECHANIC Work Phone: [facility] 09-07-2023 09:41-0400 Diastolic blood pressure 74 mm[Hg] Winsome Cuevas CAR SWEEPER-DECK MECHANIC Work Phone: [facility] 09-07-2023 09:41-0400 Heart rate 65 /min Winsome Cuevas CAR SWEEPER-DECK MECHANIC Work Phone: [facility] 09-07-2023 09:41-0400 Respiratory rate 16 /min Winsome Cuevas CAR SWEEPER-DECK MECHANIC Work Phone: [facility] 09-07-2023 09:41-0400 SaO2% (BldA) [Mass fraction] 98 % Winsome Cuevas CAR SWEEPER-DECK MECHANIC Work Phone: [facility] 09-07-2023 09:41-0400 Systolic blood pressure 109 mm[Hg] Winsome Cuevas CAR SWEEPER-DECK MECHANIC Work Phone: [facility] 08-10-2023 14:08-0400 Body height 162.6 cm Winsome Cuevas CAR SWEEPER-DECK MECHANIC Work Phone: [facility] 08-10-2023 14:08-0400 Body mass index (BMI) [Ratio] 25.94 kg/m2 Winsome Cuevas CAR SWEEPER-DECK MECHANIC Work Phone: [facility] 08-10-2023 14:08-0400 Body weight 68.54 kg Winsome Cuevas CAR SWEEPER-DECK MECHANIC Work Phone: [facility] 08-10-2023 14:08-0400 Diastolic blood pressure 72 mm[Hg] Winsome Cuevas CAR SWEEPER-DECK MECHANIC Work Phone: [facility] 08-10-2023 14:08-0400 Heart rate 91 /min Winsome Cuevas CAR SWEEPER-DECK MECHANIC Work Phone: [facility] 08-10-2023 14:08-0400 SaO2% (BldA) [Mass fraction] 97 % Winsome Cuevas CAR SWEEPER-DECK MECHANIC Work Phone: [facility] 08-10-2023 14:08-0400 Systolic blood pressure 105 mm[Hg] Winsome Cuevas CAR SWEEPER-DECK MECHANIC Work Phone: [facility] 08-03-2023 09:26-0400 Body mass index (BMI) [Ratio] 25.58 kg/m2 Wilfrid Champion CAR SWEEPER.CNM Work Phone: [facility] 08-03-2023 09:26-0400 Body weight 67.59 kg Wilfrid Champion CAR SWEEPER.CNM Work Phone: [facility] 08-03-2023 09:26-0400 Diastolic blood pressure 62 mm[Hg] Wilfrid Quinterots CAR SWEEPER.CNM Work Phone: [facility] 08-03-2023 09:26-0400 Systolic blood pressure 110 mm[Hg] Wilfrid Quinterots CAR SWEEPER.CNM Work Phone: [facility] 07-15-2023 09:42-0400 Body mass index (BMI) [Ratio] 26.07 kg/m2 Winsome Cuevas CAR SWEEPER-DECK MECHANIC Work Phone: [facility] 07-15-2023 09:42-0400 Body weight 68.9 kg Winsome Cuevas CAR SWEEPER-DECK MECHANIC Work Phone: [facility] 07-15-2023 09:42-0400 Diastolic blood pressure 74 mm[Hg] Winsome Cuevas CAR SWEEPER-DECK MECHANIC Work Phone: [facility] 07-15-2023 09:42-0400 Heart rate 76 /min Winsome Cuevas CAR SWEEPER-DECK MECHANIC Work Phone: [facility] 07-15-2023 09:42-0400 Systolic blood pressure 107 mm[Hg] Winsome Cuevas CAR SWEEPER-DECK MECHANIC Work Phone: [facility] 06-10-2023 12:12-0400 Diastolic blood pressure 65 mm[Hg] Rhys Conn MD Work Phone: [facility] 06-10-2023 12:12-0400 Heart rate 77 /min Rhys Conn MD Work Phone: [place] [facility] 06-10-2023 12:12-0400 Respiratory rate 18 /min Rhys Conn MD Work Phone: [place] [facility] 06-10-2023 12:12-0400 SaO2% (BldA) [Mass fraction] 100 % Rhys Conn MD Work Phone: [place] [facility] 06-10-2023 12:12-0400 Systolic blood pressure 115 mm[Hg] Rhys Conn MD Work Phone: [place] [facility] 06-10-2023 10:50-0400 Body temperature 98.71 [degF] Rhys Conn MD Work Phone: [place] [facility] 06-10-2023 10:49-0400 Body height 162.6 cm Rhys Conn MD Work Phone: [place] [facility] 06-10-2023 10:13-0400 Body mass index (BMI) [Ratio] 26.61 kg/m2 Timmy Mariano MD Work Phone: [facility] 06-10-2023 10:13-0400 Body weight 70.31 kg Timmy Mariano MD Work Phone: [place] [facility] 06-10-2023 10:13-0400 Diastolic blood pressure 80 mm[Hg] Timmy Mariano MD Work Phone: [facility] 06-10-2023 10:13-0400 Heart rate 111 /min Timmy Mariano MD Work Phone: [facility] 06-10-2023 10:13-0400 SaO2% (BldA) [Mass fraction] 98 % Timmy Mariano MD Work Phone: [facility] 06-10-2023 10:13-0400 Systolic blood pressure 150 mm[Hg] Timmy Mariano MD Work Phone: [facility] 05-04-2023 15:10-0400 Diastolic blood pressure 75 mm[Hg] Mary Lou Billow DO Work Phone: [facility] 05-04-2023 15:10-0400 Systolic blood pressure 119 mm[Hg] Mary Lou Morrison DO Work Phone: [facility] 05-01-2023 17:56-0400 Body temperature 97.3 [degF] [facility] 05-01-2023 17:56-0400 Diastolic blood pressure 74 mm[Hg] [facility] 05-01-2023 17:56-0400 Heart rate 78 /min [facility] 05-01-2023 17:56-0400 Respiratory rate 16 /min [facility] 05-01-2023 17:56-0400 SaO2% (BldA) [Mass fraction] 99 % [facility] 05-01-2023 17:56-0400 Systolic blood pressure 102 mm[Hg] [facility] 05-01-2023 13:48-0400 Body height 162.56 cm [facility] 04-22-2023 10:39-0500 Body height 162.6 cm Winsome Cuevas APRN-DECK MECHANIC Work Phone: [facility] 04-22-2023 10:39-0500 Body mass index (BMI) [Ratio] 26.73 kg/m2 Winsome Cuevas APRN-DECK MECHANIC Work Phone: [facility] 04-22-2023 10:39-0500 Body weight 70.63 kg Winsome Cuevas APRN-DECK MECHANIC Work Phone: [facility] 04-22-2023 10:39-0500 Diastolic blood pressure 80 mm[Hg] Winsome Cuevas APRN-DECK MECHANIC Work Phone: [facility] 04-22-2023 10:39-0500 Heart rate 78 /min Winsome Cuevas APRN-DECK MECHANIC Work Phone: [facility] 04-22-2023 10:39-0500 SaO2% (BldA) [Mass fraction] 99 % Winsome Cuevas APRN-DECK MECHANIC Work Phone: [facility] 04-22-2023 10:39-0500 Systolic blood pressure 110 mm[Hg] Winsome Cuevas [employer]EE[employer] Work Phone: [facility] 02-10-2023 10:11-0500 Body height 162.6 cm Ann Lee MD Work Phone: [facility] 02-10-2023 10:11-0500 Body mass index (BMI) [Ratio] 27.46 kg/m2 Ann Lee MD Work Phone: [facility] 02-10-2023 10:11-0500 Body weight 72.58 kg Ann Lee MD Work Phone: [facility] 02-10-2023 10:11-0500 Diastolic blood pressure 78 mm[Hg] Ann Lee MD Work Phone: [facility] 02-10-2023 10:11-0500 Heart rate 97 /min Ann Lee MD Work Phone: [facility] 02-10-2023 10:11-0500 Systolic blood pressure 122 mm[Hg] Ann Lee MD Work Phone: [facility] 01-28-2023 08:18-0500 Body height 162.6 cm Mary Lou Billow DO Work Phone: [facility] 01-28-2023 08:18-0500 Body weight 72.58 kg Mary Lou Billow DO Work Phone: [facility] 01-28-2023 08:18-0500 Diastolic blood pressure 70 mm[Hg] Mary Lou Billow DO Work Phone: [facility] 01-28-2023 08:18-0500 Systolic blood pressure 107 mm[Hg] Mary Lou Billow DO Work Phone: [facility] 12-15-2022 13:37-0400 Diastolic blood pressure 79 mm[Hg] [facility] 12-15-2022 13:37-0400 Heart rate 71 /min [facility] 12-15-2022 13:37-0400 Systolic blood pressure 117 mm[Hg] [facility] 12-15-2022 09:18-0400 Body height 162.56 cm [facility] 12-15-2022 09:18-0400 Body mass index (BMI) [Ratio] 26.1 kg/m2 [facility] 12-15-2022 09:18-0400 Body temperature 97.4 [degF] [facility] 12-15-2022 09:18-0400 Body weight 68.94 kg [facility] 12-15-2022 09:18-0400 Respiratory rate 16 /min [facility] 12-15-2022 09:18-0400 SaO2% (BldA) [Mass fraction] 99 % [facility] 12-03-2022 11:15-0400 Body weight 69.85 kg Colleen Zaavla MD Work Phone: [facility] 12-03-2022 11:15-0400 Diastolic blood pressure 78 mm[Hg] Colleen Zavala MD Work Phone: [facility] 12-03-2022 11:15-0400 Systolic blood pressure 114 mm[Hg] Colleen Zavala MD Work Phone: [facility] 11-27-2022 15:23-0400 Body temperature 98.2 [degF] [facility] 11-27-2022 15:23-0400 Diastolic blood pressure 55 mm[Hg] [facility] 11-27-2022 15:23-0400 Heart rate 74 /min [facility] 11-27-2022 15:23-0400 Respiratory rate 16 /min [facility] 11-27-2022 15:23-0400 SaO2% (BldA) [Mass fraction] 100 % [facility] 11-27-2022 15:23-0400 Systolic blood pressure 89 mm[Hg] [facility] 11-27-2022 12:02-0400 Body height 162.56 cm [facility] 11-27-2022 12:02-0400 Body mass index (BMI) [Ratio] 25.5 kg/m2 [facility] 11-27-2022 12:02-0400 Body weight 67.5 kg [facility] 11-24-2022 10:42-0400 Body height 162.6 cm Colleen Zavala MD Work Phone: [facility] 11-24-2022 10:42-0400 Body weight 67.13 kg Colleen Zavala MD Work Phone: [facility] 11-24-2022 10:42-0400 Diastolic blood pressure 70 mm[Hg] Colleen Zavala MD Work Phone: [facility] 11-24-2022 10:42-0400 Systolic blood pressure 108 mm[Hg] Colleen Zavala MD Work Phone: [facility] 11-13-2022 08:26-0400 Body mass index (BMI) [Ratio] 25.97 kg/m2 Timmy Mariano MD Work Phone: [facility] 11-13-2022 08:26-0400 Body weight 68.63 kg Timmy Mariano MD Work Phone: [facility] 11-13-2022 08:26-0400 Diastolic blood pressure 72 mm[Hg] Timmy Mariano MD Work Phone: [facility] 11-13-2022 08:26-0400 Heart rate 81 /min Timmy Mariano MD Work Phone: [facility] 11-13-2022 08:26-0400 SaO2% (BldA) [Mass fraction] 98 % Timmy Mariano MD Work Phone: [facility] 11-13-2022 08:26-0400 Systolic blood pressure 114 mm[Hg] Timmy Mariano MD Work Phone: [facility] 11-12-2022 11:04-0400 Body height 162.6 cm Winsome BOURGEOIS Work Phone: [facility] 11-12-2022 11:04-0400 Body mass index (BMI) [Ratio] 26.13 kg/m2 Winsome Cuevas APRN-DECK MECHANIC Work Phone: [facility] 11-12-2022 11:04-0400 Body weight 69.04 kg Winsome Cuevas [employer] Work Phone: [facility] 11-12-2022 11:04-0400 Diastolic blood pressure 73 mm[Hg] Winsome Cuevas [employer]EE[employer] Work Phone: [facility] 11-12-2022 11:04-0400 Heart rate 89 /min Winsome Cuevas [employer] Work Phone: [facility] 11-12-2022 11:04-0400 SaO2% (BldA) [Mass fraction] 99 % Winsome Cuevas [employer] Work Phone: [facility] 11-12-2022 11:04-0400 Systolic blood pressure 108 mm[Hg] Winsome Cuevas [employer]EE[employer] Work Phone: [facility] 11-11-2022 11:10-0400 Diastolic blood pressure 67 mm[Hg] [facility] 11-11-2022 11:10-0400 Heart rate 71 /min [facility] 11-11-2022 11:10-0400 Respiratory rate 15 /min [facility] 11-11-2022 11:10-0400 SaO2% (BldA) [Mass fraction] 98 % [facility] 11-11-2022 11:10-0400 Systolic blood pressure 131 mm[Hg] [facility] 11-11-2022 09:08-0400 Body mass index (BMI) [Ratio] 27 kg/m2 [facility] 11-11-2022 09:08-0400 Body temperature 98.2 [degF] [facility] 11-11-2022 09:08-0400 Body weight 71.4 kg [facility] 11-09-2022 22:20-0400 Diastolic blood pressure 70 mm[Hg] [facility] 11-09-2022 22:20-0400 Heart rate 75 /min [facility] 11-09-2022 22:20-0400 Respiratory rate 18 /min [facility] 11-09-2022 22:20-0400 SaO2% (BldA) [Mass fraction] 100 % [facility] 11-09-2022 22:20-0400 Systolic blood pressure 110 mm[Hg] [facility] 11-09-2022 16:31-0400 Body height 162.56 cm [facility] 11-09-2022 16:31-0400 Body mass index (BMI) [Ratio] 25.9 kg/m2 [facility] 11-09-2022 16:31-0400 Body temperature 97.8 [degF] [facility] 11-09-2022 16:31-0400 Body weight 68.49 kg [facility] 09-19-2022 14:51-0400 Body height 162.56 cm [facility] 09-19-2022 14:51-0400 Body mass index (BMI) [Ratio] 25.7 kg/m2 [facility] 09-19-2022 14:51-0400 Body temperature 98 [degF] [facility] 09-19-2022 14:51-0400 Body weight 68.03 kg [facility] 09-19-2022 14:51-0400 Diastolic blood pressure 74 mm[Hg] [facility] 09-19-2022 14:51-0400 Heart rate 78 /min [facility] 09-19-2022 14:51-0400 Respiratory rate 18 /min [facility] 09-19-2022 14:51-0400 SaO2% (BldA) [Mass fraction] 100 % [facility] 09-19-2022 14:51-0400 Systolic blood pressure 137 mm[Hg] [facility] 08-18-2022 12:00-0400 Diastolic blood pressure 68 mm[Hg] [facility] 08-18-2022 12:00-0400 Systolic blood pressure 112 mm[Hg] [facility] 08-18-2022 10:53-0400 Heart rate 84 /min [facility] 08-18-2022 10:53-0400 Respiratory rate 12 /min [facility] 08-18-2022 10:53-0400 SaO2% (BldA) [Mass fraction] 100 % [facility] 08-18-2022 09:54-0400 Body height 162.56 cm [facility] 08-18-2022 09:54-0400 Body mass index (BMI) [Ratio] 24 kg/m2 [facility] 08-18-2022 09:54-0400 Body temperature 97.1 [degF] [facility] 08-18-2022 09:54-0400 Body weight 63.5 kg [facility] 07-30-2022 14:55-0400 Body height 162.6 cm Winsome Cuevas ELVA-DECK MECHANIC Work Phone: [facility] 07-30-2022 14:55-0400 Body mass index (BMI) [Ratio] 24.96 kg/m2 Winsome Kovacschucho MCINTYREN-DECK MECHANIC Work Phone: [facility] 07-30-2022 14:55-0400 Body weight 65.95 kg Winsome Kovacsy CAR SWEEPER[employer]IC Work Phone: [facility] 07-30-2022 14:55-0400 Diastolic blood pressure 67 mm[Hg] Winsome Cuevas [employer]EE[employer] Work Phone: [facility] 07-30-2022 14:55-0400 Heart rate 74 /min Winsome Cuevas [employer] Work Phone: [facility] 07-30-2022 14:55-0400 SaO2% (BldA) [Mass fraction] 98 % Winsome Cuevas [employer] Work Phone: [facility] 07-30-2022 14:55-0400 Systolic blood pressure 101 mm[Hg] Winsome Cuevas APRN-DECK MECHANIC Work Phone: [facility] 07-09-2022 16:04-0400 Body mass index (BMI) [Ratio] 25.25 kg/m2 Winsome Cuevas APRN-DECK MECHANIC Work Phone: [facility] 07-09-2022 16:04-0400 Body weight 66.72 kg Winsome Cuevsa APRN-DECK MECHANIC Work Phone: [facility] 07-09-2022 16:04-0400 Diastolic blood pressure 80 mm[Hg] Winsome Cuevas APRN-DECK MECHANIC Work Phone: [facility] 07-09-2022 16:04-0400 Heart rate 89 /min Winsome Cuevas APRN-DECK MECHANIC Work Phone: [facility] 07-09-2022 16:04-0400 SaO2% (BldA) [Mass fraction] 98 % Winsome Cuevas APRN-DECK MECHANIC Work Phone: [facility] 07-09-2022 16:04-0400 Systolic blood pressure 116 mm[Hg] Winsome Cuevas APRN-DECK MECHANIC Work Phone: [facility] 06-30-2022 08:29-0400 Body height 162.6 cm Lindsay Pearson MD Work Phone: [facility] 06-30-2022 08:29-0400 Body mass index (BMI) [Ratio] 25.44 kg/m2 Lindsay Pearson MD Work Phone: [facility] 06-30-2022 08:29-0400 Body weight 67.22 kg Lindsay Pearson MD Work Phone: [facility] 06-30-2022 08:29-0400 Diastolic blood pressure 80 mm[Hg] Lindsay Pearson MD Work Phone: [facility] 06-30-2022 08:29-0400 Heart rate 70 /min Lindsay Pearson MD Work Phone: [facility] 06-30-2022 08:29-0400 SaO2% (BldA) [Mass fraction] 98 % Lindsay Pearson MD Work Phone: [facility] 06-30-2022 08:29-0400 Systolic blood pressure 128 mm[Hg] Lindsay Pearson MD Work Phone: [facility] 06-11-2022 09:48-0400 Body mass index (BMI) [Ratio] 24.94 kg/m2 Winsome Cuevsa [employer]EE[employer] Work Phone: [facility] 06-11-2022 09:48-0400 Body weight 65.91 kg Winsome Cuevas [employer] Work Phone: [facility] 06-11-2022 09:48-0400 Diastolic blood pressure 75 mm[Hg] Winsome Cuevas [employer] Work Phone: [facility] 06-11-2022 09:48-0400 Heart rate 96 /min Winsome Roby [employer] SWEE[employer]IC Work Phone: [facility] 06-11-2022 09:48-0400 Systolic blood pressure 104 mm[Hg] Winsome Cuevas [employer]EE[employer] Work Phone: [facility] 03-17-2022 09:28-0500 Body temperature 98.6 [degF] [facility] 03-17-2022 09:28-0500 Diastolic blood pressure 69 mm[Hg] [facility] 03-17-2022 09:28-0500 Heart rate 75 /min [facility] 03-17-2022 09:28-0500 Respiratory rate 16 /min [facility] 03-17-2022 09:28-0500 SaO2% (BldA) [Mass fraction] 100 % [facility] 03-17-2022 09:28-0500 Systolic blood pressure 103 mm[Hg] [facility] 03-17-2022 06:40-0500 Body height 162.56 cm [facility] 03-17-2022 06:40-0500 Body mass index (BMI) [Ratio] 24.5 kg/m2 [facility] 03-17-2022 06:40-0500 Body weight 64.86 kg WINSOME [facility] 02-24-2022 13:11-0500 Diastolic blood pressure 77 mm[Hg] [facility] 02-24-2022 13:11-0500 Heart rate 75 /min [facility] 02-24-2022 13:11-0500 Respiratory rate 16 /min [facility] 02-24-2022 13:11-0500 SaO2% (BldA) [Mass fraction] 99 % [facility] 02-24-2022 13:11-0500 Systolic blood pressure 122 mm[Hg] [facility] 02-24-2022 10:34-0500 Body height 162.56 cm [facility] 02-24-2022 10:34-0500 Body mass index (BMI) [Ratio] 24 kg/m2 [facility] 02-24-2022 10:34-0500 Body temperature 97.9 [degF] [facility] 02-24-2022 10:34-0500 Body weight 63.5 kg [facility] 01-06-2022 09:42-0500 Diastolic blood pressure 74 mm[Hg] Dr. Tigist Blanco Work Phone: [facility] 01-06-2022 09:42-0500 Heart rate 95 /min Dr. Tigist Blanco Work Phone: [facility] 01-06-2022 09:42-0500 Respiratory rate 16 /min Dr. Tigist Blanco Work Phone: [facility] 01-06-2022 09:42-0500 SaO2% (BldA) [Mass fraction] 99 % Dr. Tigist Blanco Work Phone: [facility] 01-06-2022 09:42-0500 Systolic blood pressure 104 mm[Hg] Dr. Tigist Blanco Work Phone: [facility] 01-06-2022 07:03-0500 Body height 162.[address] Tigist Blanco Work Phone: [facility] Work Phone: 01-06-2022 07:03-0500 Body mass index (BMI) [Ratio] 24.8 kg/m2 Dr. Tigist Blanco Work Phone: [facility] 01-06-2022 07:03-0500 Body temperature 97.9 [degF] Dr. Tigist Blanco Work Phone: [facility] 01-06-2022 07:03-0500 Body weight 65.[address] Tigist Blanco Work Phone: [facility] 12-16-2021 08:43-0400 Body mass index (BMI) [Ratio] 23.6 kg/m2 Dr. Tigist Blanco Work Phone: [facility] 12-16-2021 08:43-0400 Body temperature 97.3 [degF] Dr. Tigist Blanco Work Phone: [facility] 12-16-2021 08:43-0400 Body weight 62.[address] Tigist Blanco Work Phone: [facility] 12-16-2021 08:43-0400 Diastolic blood pressure 71 mm[Hg] Dr. Tigist Blanco Work Phone: [facility] 12-16-2021 08:43-0400 Heart rate 100 /min Dr. Tigist Blanco Work Phone: [facility] 12-16-2021 08:43-0400 Respiratory rate 18 /min Dr. Tigist Blanco Work Phone: [facility] 12-16-2021 08:43-0400 SaO2% (BldA) [Mass fraction] 97 % Dr. Tigist Blanco Work Phone: [facility] 12-16-2021 08:43-0400 Systolic blood pressure 106 mm[Hg] Dr. Tigist Blanco Work Phone: [facility] 12-11-2021 11:47-0400 Body mass index (BMI) [Ratio] 23.17 kg/m2 Timmy Mariano MD Work Phone: [place] [facility] 12-11-2021 11:47-0400 Body weight 61.24 kg Timmy Mariano MD Work Phone: [facility] 12-11-2021 11:47-0400 Diastolic blood pressure 70 mm[Hg] Timmy Mariano MD Work Phone: [place] [facility] 12-11-2021 11:47-0400 Heart rate 78 /min Timmy Mariano MD Work Phone: [facility] 12-11-2021 11:47-0400 SaO2% (BldA) [Mass fraction] 96 % Timmy Mariano MD Work Phone: [facility] 12-11-2021 11:47-0400 Systolic blood pressure 119 mm[Hg] Timmy Mariano MD Work Phone: [facility] 12-09-2021 14:06-0400 Body height 162.6 cm Winsome Cuevas [employer] Work Phone: [facility] 12-09-2021 14:06-0400 Body mass index (BMI) [Ratio] 23.31 kg/m2 Winsome Cuevas [employer] Work Phone: [facility] 12-09-2021 14:06-0400 Body weight 61.6 kg Winsome Cuevas [employer] Work Phone: [facility] 12-09-2021 14:06-0400 Diastolic blood pressure 73 mm[Hg] Winsome Cuevas [employer]EE[employer]IC Work Phone: [place] [facility] 12-09-2021 14:06-0400 Heart rate 79 /min Winsome Cuevas [employer] Work Phone: [facility] 12-09-2021 14:06-0400 Systolic blood pressure 107 mm[Hg] Winsome Cuevas [employer]IC Work Phone: [facility] 12-02-2021 07:47-0400 Body mass index (BMI) [Ratio] 22.3 kg/m2 Dr. Tigist Blanco Work Phone: [facility] 12-02-2021 07:47-0400 Body temperature 97.6 [degF] Dr. Tigist Blanco Work Phone: [facility] 12-02-2021 07:47-0400 Body weight 58.[address] Tigist Blanco Work Phone: [facility] 12-02-2021 07:47-0400 Diastolic blood pressure 69 mm[Hg] Dr. Tigist Blanco Work Phone: [facility] 12-02-2021 07:47-0400 Heart rate 79 /min Dr. Tigist Blanco Work Phone: [facility] 12-02-2021 07:47-0400 Respiratory rate 16 /min Dr. Tigist Blanco Work Phone: [facility] 12-02-2021 07:47-0400 SaO2% (BldA) [Mass fraction] 98 % Dr. Tigist Blanco Work Phone: [facility] 12-02-2021 07:47-0400 Systolic blood pressure 117 mm[Hg] Dr. Tigist Blanco Work Phone: [facility] 10-25-2021 22:04-0400 Diastolic blood pressure 74 mm[Hg] Dr. Tigist Blanco Work Phone: [facility] Work Phone: 10-25-2021 22:04-0400 Heart rate 81 /min Dr. Tigist Blanco Work Phone: [facility] Work Phone: 10-25-2021 22:04-0400 SaO2% (BldA) [Mass fraction] 97 % Dr. Tigist Blanco Work Phone: [facility] Work Phone: 10-25-2021 22:04-0400 Systolic blood pressure 125 mm[Hg] Dr. Tigist Blanco Work Phone: [facility] Work Phone: 10-25-2021 19:19-0400 Body height 162.[address] Tigist Blanco Work Phone: [facility] Work Phone: 10-25-2021 19:19-0400 Body mass index (BMI) [Ratio] 22.3 kg/m2 Dr. Tigist Blanco Work Phone: [facility] Work Phone: 10-25-2021 19:19-0400 Body temperature 97.7 [degF] Dr. Tigist Blanco Work Phone: [facility] Work Phone: 10-25-2021 19:19-0400 Body weight 58.[address] Tigist Blanco Work Phone: [facility] Work Phone: 10-25-2021 19:19-0400 Respiratory rate 20 /min Dr. Tigist Blanco Work Phone: [facility] Work Phone: 10-23-2021 14:44-0400 Diastolic blood pressure 66 mm[Hg] Dr. Tigist Blanco Work Phone: [facility] Work Phone: 10-23-2021 14:44-0400 Heart rate 55 /min Dr. Tigist Blanco Work Phone: [facility] Work Phone: 10-23-2021 14:44-0400 Respiratory rate 17 /min Dr. Tigist Blanco Work Phone: [facility] Work Phone: 10-23-2021 14:44-0400 SaO2% (BldA) [Mass fraction] 100 % Dr. Tigist Blanco Work Phone: [facility] Work Phone: 10-23-2021 14:44-0400 Systolic blood pressure 102 mm[Hg] Dr. Tigist Blanco Work Phone: [facility] Work Phone: 10-23-2021 13:19-0400 Body height 162.[address] Tigist Blanco Work Phone: [facility] Work Phone: 10-23-2021 13:19-0400 Body mass index (BMI) [Ratio] 23 kg/m2 Dr. Tigist Blanco Work Phone: [facility] Work Phone: 10-23-2021 13:19-0400 Body temperature 98 [degF] Dr. Tigist Blanco Work Phone: [facility] Work Phone: 10-23-2021 13:19-0400 Body weight 60.[address] Tigist Blanco Work Phone: [facility] Work Phone: 10-20-2021 20:31-0400 Diastolic blood pressure 71 mm[Hg] Dr. Tigist Blanco Work Phone: [facility] Work Phone: 10-20-2021 20:31-0400 Heart rate 92 /min Dr. Tigist Blanco Work Phone: [facility] Work Phone: 10-20-2021 20:31-0400 Respiratory rate 18 /min Dr. Tigist Blanco Work Phone: [facility] Work Phone: 10-20-2021 20:31-0400 SaO2% (BldA) [Mass fraction] 98 % Dr. Tigist Blanco Work Phone: [facility] Work Phone: 10-20-2021 20:31-0400 Systolic blood pressure 116 mm[Hg] Dr. Tigist Blanco Work Phone: [facility] Work Phone: 10-20-2021 18:02-0400 Body height 162.[address] Tigist Blanco Work Phone: [facility] Work Phone: 10-20-2021 18:02-0400 Body mass index (BMI) [Ratio] 22.3 kg/m2 Dr. Tigist Blanco Work Phone: [facility] Work Phone: 10-20-2021 18:02-0400 Body temperature 97.8 [degF] Dr. Tigist Blanco Work Phone: [facility] Work Phone: 10-20-2021 18:02-0400 Body weight 58.[address] Tigist Blanco Work Phone: [facility] Work Phone: 10-15-2021 09:44-0400 Body mass index (BMI) [Ratio] 22.6 kg/m2 Dr. Tigist Blanco Work Phone: [facility] Work Phone: 10-15-2021 09:44-0400 Body temperature 97.4 [degF] Dr. Tigist Blanco Work Phone: [facility] Work Phone: 10-15-2021 09:44-0400 Body weight 59.[address] Tigist Blanco Work Phone: [facility] Work Phone: 10-15-2021 09:44-0400 Diastolic blood pressure 76 mm[Hg] Dr. Tigist Blanco Work Phone: [facility] Work Phone: 10-15-2021 09:44-0400 Heart rate 103 /min Dr. Tigist Blanco Work Phone: [facility] Work Phone: 10-15-2021 09:44-0400 Respiratory rate 16 /min Dr. Tigist Blanco Work Phone: [facility] Work Phone: 10-15-2021 09:44-0400 SaO2% (BldA) [Mass fraction] 95 % Dr. Tigist Blanco Work Phone: [facility] Work Phone: 10-15-2021 09:44-0400 Systolic blood pressure 111 mm[Hg] Dr. Tigist Blanco Work Phone: [facility] Work Phone: 10-07-2021 09:43-0400 Body height 162.6 cm Winsome Cuevas APRN-DECK MECHANIC Work Phone: [facility] 10-07-2021 09:43-0400 Body mass index (BMI) [Ratio] 23.58 kg/m2 Winsome Cuevas APRN-DECK MECHANIC Work Phone: [facility] 10-07-2021 09:43-0400 Body weight 62.32 kg Winsome Mason MCINTYREN-DECK MECHANIC Work Phone: [facility] 10-07-2021 09:43-0400 Diastolic blood pressure 78 mm[Hg] Winsome Cuevas APRN-DECK MECHANIC Work Phone: [facility] 10-07-2021 09:43-0400 Heart rate 73 /min Winsome Cuevas APRN-DECK MECHANIC Work Phone: [facility] 10-07-2021 09:43-0400 Systolic blood pressure 109 mm[Hg] Winsome Cuevas APRN-DECK MECHANIC Work Phone: [facility] 08-27-2021 10:54-0400 Diastolic blood pressure 74 mm[Hg] Dr. Irineo Carter Work Phone: [facility] Work Phone: 08-27-2021 10:54-0400 Heart rate 85 /min Dr. Irineo Carter Work Phone: [facility] Work Phone: 08-27-2021 10:54-0400 Respiratory rate 16 /min Dr. Irineo Carter Work Phone: [facility] Work Phone: 08-27-2021 10:54-0400 SaO2% (BldA) [Mass fraction] 98 % Dr. Irineo Carter Work Phone: [facility] Work Phone: 08-27-2021 10:54-0400 Systolic blood pressure 118 mm[Hg] Dr. Irineo Carter Work Phone: [facility] Work Phone: 08-27-2021 08:37-0400 Body height 162.[address] Irineo Carter Work Phone: [facility] Work Phone: 08-27-2021 08:37-0400 Body mass index (BMI) [Ratio] 22.3 kg/m2 Dr. Irineo Carter Work Phone: [facility] Work Phone: 08-27-2021 08:37-0400 Body temperature 98 [degF] Dr. Irineo Carter Work Phone: [facility] Work Phone: 08-27-2021 08:37-0400 Body weight 58.[address] Irineo Carter Work Phone: [facility] Work Phone: 06-12-2021 11:15-0400 Body height 162.6 cm Winsome BOURGEOIS Work Phone: [facility] 06-12-2021 11:15-0400 Body mass index (BMI) [Ratio] 23.82 kg/m2 Winsome [place] [employer] Work Phone: [facility] 06-12-2021 11:15-0400 Body temperature 97.39 [degF] Winsome Cuevas APRN-DECK MECHANIC Work Phone: [facility] 06-12-2021 11:15-0400 Body weight 62.96 kg Winsome Cuevas APRN-DECK MECHANIC Work Phone: [facility] 06-12-2021 11:15-0400 Diastolic blood pressure 77 mm[Hg] Winsome Cuevas [employer] Work Phone: [facility] 06-12-2021 11:15-0400 Heart rate 88 /min Winsome Cuevas [employer] Work Phone: [facility] 06-12-2021 11:15-0400 Respiratory rate 20 /min Winsome Cuevas [employer] Work Phone: [facility] 06-12-2021 11:15-0400 SaO2% (BldA) [Mass fraction] 98 % Winsome Cuevas [employer] Work Phone: [facility] 06-12-2021 11:15-0400 Systolic blood pressure 113 mm[Hg] Winsome Cuevas [employer] Work Phone: [facility] 06-07-2021 13:38-0400 Body temperature 98.2 [degF] Dr. Angel Morales Work Phone: [facility] Work Phone: 06-07-2021 13:38-0400 Diastolic blood pressure 67 mm[Hg] Dr. Angel Morales Work Phone: [facility] Work Phone: 06-07-2021 13:38-0400 Heart rate 70 /min Dr. Angel Morales Work Phone: [facility] Work Phone: 06-07-2021 13:38-0400 Respiratory rate 12 /min Dr. Angel Morales Work Phone: [facility] Work Phone: 06-07-2021 13:38-0400 SaO2% (BldA) [Mass fraction] 95 % Dr. Angel Morales Work Phone: [facility] Work Phone: 06-07-2021 13:38-0400 Systolic blood pressure 102 mm[Hg] Dr. Angel Morales Work Phone: [facility] Work Phone: 06-06-2021 20:19-0400 Body height 162.[address] Angel Moarles Work Phone: [facility] Work Phone: 06-06-2021 20:19-0400 Body mass index (BMI) [Ratio] 23.1 kg/m2 Dr. Angel Morales Work Phone: [facility] Work Phone: 06-06-2021 20:19-0400 Body weight 61.[address] Angel Morales Work Phone: [facility] Work Phone: 06-06-2021 18:48-0400 Body temperature 98.1 [degF] Dr. Angel Morales Work Phone: [facility] Work Phone: 06-06-2021 18:48-0400 Diastolic blood pressure 78 mm[Hg] Dr. Angel Morales Work Phone: [facility] Work Phone: 06-06-2021 18:48-0400 Heart rate 60 /min Dr. Angel Morales Work Phone: [facility] Work Phone: 06-06-2021 18:48-0400 Respiratory rate 18 /min Dr. Angel Morales Work Phone: [facility] Work Phone: 06-06-2021 18:48-0400 SaO2% (BldA) [Mass fraction] 96 % Dr. Angel Morales Work Phone: [facility] Work Phone: 06-06-2021 18:48-0400 Systolic blood pressure 126 mm[Hg] Dr. Angel Morales Work Phone: [facility] Work Phone: 06-06-2021 14:19-0400 Body height 162.[address] Angel Morales Work Phone: [facility] Work Phone: 06-06-2021 14:19-0400 Body mass index (BMI) [Ratio] 24.1 kg/m2 Dr. Angel Morales Work Phone: [facility] Work Phone: 06-06-2021 14:19-0400 Body weight 63.[address] Angel Morales Work Phone: [facility] Work Phone: 05-01-2021 13:18-0400 Body height 162.6 cm Winsome Cuevas APRN-DORETHA Work Phone: [facility] 05-01-2021 13:18-0400 Body mass index (BMI) [Ratio] 22.83 kg/m2 Winsome Cuevas APRN-DECK MECHANIC Work Phone: [facility] 05-01-2021 13:18-0400 Body weight 60.33 kg Winsome Cuevas APRN-DECK MECHANIC Work Phone: [facility] 05-01-2021 13:18-0400 Diastolic blood pressure 80 mm[Hg] Winsome Cuevas APRN-DECK MECHANIC Work Phone: [facility] 05-01-2021 13:18-0400 Heart rate 89 /min Winsome Cuevas APRN-DECK MECHANIC Work Phone: [facility] 05-01-2021 13:18-0400 SaO2% (BldA) [Mass fraction] 97 % Winsome Kovacsy CAR SWEEPER-DECK MECHANIC Work Phone: [facility] 05-01-2021 13:18-0400 Systolic blood pressure 125 mm[Hg] Winsome Cuevas [employer]EE[employer] Work Phone: [facility] 04-17-2021 11:56-0500 Diastolic blood pressure 74 mm[Hg] Dr. Angel Morales Work Phone: [facility] Work Phone: 04-17-2021 11:56-0500 Heart rate 76 /min Dr. Angel Morales Work Phone: [facility] Work Phone: 04-17-2021 11:56-0500 Respiratory rate 15 /min Dr. Angel Morales Work Phone: [facility] Work Phone: 04-17-2021 11:56-0500 SaO2% (BldA) [Mass fraction] 99 % Dr. Angel Morales Work Phone: [facility] Work Phone: 04-17-2021 11:56-0500 Systolic blood pressure 109 mm[Hg] Dr. Angel Morales Work Phone: [facility] Work Phone: 04-17-2021 07:52-0500 Body mass index (BMI) [Ratio] 22.3 kg/m2 Dr. Angel Morales Work Phone: [facility] Work Phone: 04-17-2021 07:52-0500 Body temperature 97.9 [degF] Dr. Angel Morales Work Phone: [facility] Work Phone: 04-17-2021 07:52-0500 Body weight 58.[address] Angel Morales Work Phone: [facility] Work Phone: 01-07-2021 08:26-0500 Body temperature 98.01 [degF] John Bauer MD Work Phone: [facility] 01-07-2021 08:26-0500 Diastolic blood pressure 70 mm[Hg] John Bauer MD Work Phone: [facility] 01-07-2021 08:26-0500 Heart rate 69 /min John Bauer MD Work Phone: [facility] 01-07-2021 08:26-0500 Respiratory rate 20 /min John Bauer MD Work Phone: [facility] 01-07-2021 08:26-0500 SaO2% (BldA) [Mass fraction] 97 % John Bauer MD Work Phone: [facility] 01-07-2021 08:26-0500 Systolic blood pressure 99 mm[Hg] John Bauer MD Work Phone: [facility] 01-01-2021 03:43-0500 Body height 162.6 cm John Bauer MD Work Phone: [facility] 01-01-2021 03:43-0500 Body mass index (BMI) [Ratio] 23.17 kg/m2 John Bauer MD Work Phone: [facility] 01-01-2021 03:43-0500 Body weight 61.24 kg John Bauer MD Work Phone: [facility] 12-21-2020 14:34-0400 Body height 162.6 cm Alexandru Ramirez Jr., DPM Work Phone: [facility] 12-21-2020 14:34-0400 Body mass index (BMI) [Ratio] 22.31 kg/m2 Alexandru Ramirez Jr., DPM Work Phone: [facility] 12-21-2020 14:34-0400 Body temperature 97.7 [degF] Alexandru Ramirez Jr. DPNorma Work Phone: [facility] 12-21-2020 14:34-0400 Body weight 58.97 kg Alexandru Palaciosn Jr., DPM Work Phone: [facility] 12-21-2020 14:34-0400 Diastolic blood pressure 72 mm[Hg] Alexandru Palaciosn Jr., DPM Work Phone: [facility] 12-21-2020 14:34-0400 Heart rate 92 /min Alexandru Palaciosn Jr., DPM Work Phone: [facility] 12-21-2020 14:34-0400 Systolic blood pressure 125 mm[Hg] Alexandru Palaciosn Jr., DPM Work Phone: [facility] 12-18-2020 17:30-0400 Diastolic blood pressure 71 mm[Hg] Winsome Cuevas Other Phone: [facility] 12-18-2020 17:30-0400 Heart rate 82 /min Winsome Cuevas Other Phone: [facility] 12-18-2020 17:30-0400 Respiratory rate 18 /min Winsome Cuevas Other Phone: [facility] 12-18-2020 17:30-0400 SaO2% (BldA) [Mass fraction] 99 % Winsome Cuevas Other Phone: [facility] 12-18-2020 17:30-0400 Systolic blood pressure 97 mm[Hg] Winsome Cuevas Other Phone: [facility] 12-18-2020 16:13-0400 Body height 162.5 cm Winsome Cuevas Other Phone: [facility] 12-18-2020 16:13-0400 Body temperature 98.78 [degF] Winsome Cuevas Other Phone: [facility] 12-18-2020 16:13-0400 Body weight 59.1 kg Winsome Cuevas Other Phone: [facility] 09-27-2020 14:44-0400 Body height 162.5 cm Pcp Unknown [facility] 09-27-2020 14:44-0400 Body temperature 99.5 [degF] Pcp Unknown [facility] 09-27-2020 14:44-0400 Body weight 55.5 kg Pcp Unknown [facility] 09-27-2020 14:44-0400 Diastolic blood pressure 81 mm[Hg] Pcp Unknown [facility] 09-27-2020 14:44-0400 Heart rate 104 /min Pcp Unknown [facility] 09-27-2020 14:44-0400 Respiratory rate 18 /min Pcp Unknown [facility] 09-27-2020 14:44-0400 SaO2% (BldA) [Mass fraction] 100 % Pcp Unknown [facility] 09-27-2020 14:44-0400 Systolic blood pressure 123 mm[Hg] Pcp Unknown [facility] 09-10-2020 08:01-0400 Body height 162.6 cm Dale Valadez MD Work Phone: [facility] 09-10-2020 08:01-0400 Body mass index (BMI) [Ratio] 21.78 kg/m2 Dale Valadez MD Work Phone: [facility] 09-10-2020 08:01-0400 Body temperature 97.9 [degF] Dale Valadez MD Work Phone: [facility] 09-10-2020 08:01-0400 Body weight 57.56 kg Dale Valadez MD Work Phone: [facility] 09-10-2020 08:01-0400 Diastolic blood pressure 62 mm[Hg] Dale Valadez MD Work Phone: [facility] 09-10-2020 08:01-0400 Heart rate 76 /min Dale Valadez MD Work Phone: [facility] 09-10-2020 08:01-0400 Respiratory rate 18 /min Dale Valadez MD Work Phone: [facility] 09-10-2020 08:01-0400 SaO2% (BldA) [Mass fraction] 99 % Dale Valadez MD Work Phone: [facility] 09-10-2020 08:01-0400 Systolic blood pressure 108 mm[Hg] Dale Valadez MD Work Phone: [facility] 07-18-2020 07:38-0400 Body temperature 97.7 [degF] Henry Huntley MD Work Phone: [facility] 07-18-2020 07:38-0400 Diastolic blood pressure 72 mm[Hg] Henry Huntley MD Work Phone: [facility] 07-18-2020 07:38-0400 Heart rate 66 /min Henry Huntley MD Work Phone: [facility] 07-18-2020 07:38-0400 Respiratory rate 16 /min Henry Huntley MD Work Phone: [facility] 07-18-2020 07:38-0400 SaO2% (BldA) [Mass fraction] 97 % Henry Huntley MD Work Phone: [facility] 07-18-2020 07:38-0400 Systolic blood pressure 115 mm[Hg] Henry Huntley MD Work Phone: [facility] 07-14-2020 05:10-0400 Body mass index (BMI) [Ratio] 22.31 kg/m2 Henry Huntley MD Work Phone: [facility] 07-14-2020 05:10-0400 Body weight 58.97 kg Henry Huntley MD Work Phone: [facility] 07-13-2020 14:24-0400 Respiratory rate 0 /min Henry Huntley MD Work Phone: [facility] 07-13-2020 14:22-0400 Body height 162.6 cm Henry Huntley MD Work Phone: [facility] 10-17-2019 10:11-0400 BMI (Body Mass Index) 22.14 kg/m2 Benitez Lantiguaar [facility] Work Phone: 10-17-2019 10:11-0400 Body Temperature 98 [degF] Benitez Polancoumbar [facility] Work Phone: 10-17-2019 10:11-0400 Body weight 58.51 kg Benitez Polancoumbar [facility] Work Phone: 10-17-2019 10:11-0400 BP Diastolic 78 mm[Hg] Benitez Zumbar [facility] Work Phone: 10-17-2019 10:11-0400 BP Systolic 112 mm[Hg] Benitez Polancoumbar [facility] Work Phone: 10-17-2019 10:11-0400 BSA (Body Surface Area) 1.62 m2 Benitez Polancoumbar [facility] Work Phone: 10-17-2019 10:11-0400 Pulse (Heart Rate) 86 /min Benitez Polancoumbar [facility] Work Phone: 10-17-2019 10:11-0400 Respiratory Rate 16 /min Benitez Polancoumbar [facility] Work Phone: 09-01-2019 10:18-0400 BMI (Body Mass Index) 21.82 kg/m2 Benitez Polancoumbar [facility] Work Phone: 09-01-2019 10:18-0400 Body Temperature 98.6 [degF] Benitez Polancoumbar [facility] Work Phone: 09-01-2019 10:18-0400 Body weight 57.66 kg Benitez Polancoumbar [facility] Work Phone: 09-01-2019 10:18-0400 BP Diastolic 81 mm[Hg] Benitez Polancoumbar [facility] Work Phone: 09-01-2019 10:18-0400 BP Systolic 128 mm[Hg] Benitez Polancoumbar [facility] Work Phone: 09-01-2019 10:18-0400 BSA (Body Surface Area) 1.61 m2 Benitez Polancoumbar [facility] Work Phone: 09-01-2019 10:18-0400 Pulse (Heart Rate) 93 /min Benitez Polancoumbar [facility] Work Phone: 09-01-2019 10:18-0400 Respiratory Rate 16 /min Benitez Polancoumbar [facility] Work Phone: 04-26-2018 15:53-0400 Body Temperature 97.39 [degF] [facility] 04-26-2018 15:53-0400 BP Diastolic 68 mm[Hg] [facility] 04-26-2018 15:53-0400 BP Systolic 99 mm[Hg] [facility] 04-26-2018 15:53-0400 Pulse (Heart Rate) 67 /min [facility] 04-26-2018 15:53-0400 Pulse Oximetry 99 % [facility]ica [facility] 04-26-2018 15:53-0400 Respiratory Rate 16 /min Yves Jaime [facility] 04-22-2018 12:07-0500 BMI (Body Mass Index) 20.43 kg/m2 [facility] 04-22-2018 12:07-0500 Body weight 53.98 kg [facility] 04-22-2018 12:07-0500 Height 162.6 cm [facility] Encounters Encounter Date Encounter Type Care Provider Facility Start: 10-21-2024 [facility]ulatory [facility] Facility[facility] Start: 10-19-2024 End: 10-19-2024 Office outpatient visit 25 minutes Timmy Mariano MD Work Phone: [facility] Nephrology 2 Comment on above: Kidney stone (Primar y Dx) Start: 09-28-2024 End: 09-28-2024 Subsequent hospital visit by physician [facility] Comment on above: Pain in right hip Start: 09-28-2024 End: 09-28-2024 ambulatory Zuleima [facility] Start: 09-23-2024 ambulatory [facility] Start: 09-19-2024 End: 09-19-2024 Subsequent hospital visit by physician [facility] Comment on above: Arthrodesis status; Radiculopathy, lumbar region Start: 09-19-2024 End: 09-19-2024 ambulatory Zuleima J [facility] Start: 09-16-2024 ambulatory [facility]ima [facility] Start: 09-05-2024 ambulatory Zuleima [facility] Start: 08-24-2024 End: 08-24-2024 Emergency department patient visit Winsome ROSARIO Work Phone: -Emergency Department Work Phone: Start: 08-16-2024 End: 08-16-2024 Subsequent hospital visit by physician Timmy Mariano MD Work Phone: [facility] Ultrasound Comment on above: Arrived Start: 08-03-2024 End: 08-03-2024 Office outpatient visit 25 minutes Timmy Mariano MD Work Phone: [facility] Family Medicine Comment on above: Generalized anxiety disorder; Nausea; Psychophysiological insomnia Start: 08-03-2024 End: 08-03-2024 Office outpatient visit 25 minutes Timmy Mariano MD Work Phone: [facility] Nephrology 2 Comment on above: Chronic kidney disea se, stage II (mild) (Primary Dx) Start: 07-25-2024 ambulatory [facility]ima [facility] Start: 07-22-2024 ambulatory [facility] Start: 07-20-2024 End: 07-20-2024 Office outpatient visit 25 minutes Stef Maki DO Work Phone: [facility] Comment on above: Lumbar radiculopathy (Primary Dx); Chronic pain syndrome; Spondylosis of lumbosacral region, unspecified spinal osteoarthritis complication status; Spondylosis of lumbosacral region without myelopathy or radiculopathy; Stage 2 chronic kidney disease Start: 07-20-2024 End: 07-20-2024 ambulatory STEF MAKI [facility] Start: 07-05-2024 ambulatory [facility]uleima [facility] Start: 07-01-2024 ambulatory Zuleima Thomas Facility:[facility] Start: 06-27-2024 End: 06-27-2024 Emergency department patient visit Winsome ROSARIO Work Phone: -Emergency Department Work Phone: Start: 06-24-2024 ambulatory [facility] Start: 06-24-2024 ambulatory [facility] Start: 06-23-2024 ambulatory [facility] Start: 06-23-2024 End: 06-24-2024 Evaluation and management of inpatient [facility] Start: 06-23-2024 End: 06-23-2024 Subsequent hospital visit by physician Jagjit 2 [facility] Comment on above: Pain Start: 06-23-2024 End: 06-24-2024 Evaluation and management of inpatient Zuleima Thomas DO Work Phone: [facility] Start: 06-22-2024 ambulatory [facility] Start: 06-21-2024 ambulatory [facility] Start: 06-20-2024 ambulatory [facility] Start: 06-20-2024 ambulatory [facility] Start: 06-16-2024 End: 06-16-2024 Subsequent hospital visit by physician Aman Prado 1 [facility] Comment on above: Radiculopathy, lumba r region; Low back pain, unspecified; Spondylolisthesis, lumbosacral region Start: 06-16-2024 End: 06-16-2024 ambulatory Zuleima J [facility] Start: 06-10-2024 ambulatory Jade Murphy [facility] Start: 06-10-2024 ambulatory [facility]ima [facility] Start: 06-09-2024 ambulatory Zuleima [facility] Start: 06-07-2024 ambulatory [facility] Start: 06-07-2024 ambulatory [facility] Start: 06-03-2024 ambulatory [facility] Start: 06-01-2024 ambulatory [facility] Start: 06-01-2024 End: 06-01-2024 Office outpatient visit 25 minutes Mesha Garcia PA-C Work Phone: [facility] Office Building Comment on above: Lumbar radiculopathy (Primary Dx); Spondylosis of lumbosacral region without myelopathy or radiculopathy; Chronic pain syndrome; Musculoskeletal pain Start: 06-01-2024 End: 06-01-2024 ambulatory MESHA Schaff[facility] Start: 05-20-2024 End: 05-20-2024 Subsequent hospital visit by physician [facility] Comment on above: Lumbar radiculopathy Start: 05-20-2024 End: 05-20-2024 ambulatory MESHA Sch[facility] Start: 05-18-2024 End: 05-18-2024 Office outpatient visit 15 minutes Alexandru Ramirez DPM Work Phone: [facility] Comment on above: Ingrown nail of grea t toe of left foot (Primary Dx) Start: 05-18-2024 End: 05-18-2024 ambulatory WINSOME CUEVAS [facility] Ambulatory Start: 05-18-2024 End: 05-18-2024 Office outpatient visit 25 minutes Mesha Garcia PA-C Work Phone: [facility] Comment on above: Lumbar radiculopathy (Primary Dx); Chronic pain syndrome; Spondylosis of lumbosacral region without myelopathy or radiculopathy; Musculoskeletal pain Start: 05-18-2024 End: 05-18-2024 ambulatory MESHA Schaffer [facility] Start: 04-21-2024 End: 04-21-2024 Office outpatient visit 15 minutes Alexandru Ramirez DPM Work Phone: [facility] Comment on above: Cellulitis of left f oot (Primary Dx) Start: 04-21-2024 End: 04-21-2024 ambulatory WINSOME CUEVAS [facility] Ambulatory Start: 04-18-2024 End: 04-18-2024 Admission to same day surgery center Dr. Cheo Arevalo MD -Surgical Day [facility] Start: 04-18-2024 End: 04-18-2024 ambulatory Cheo Arevalo Facility:[facility] Start: 03-30-2024 End: 03-30-2024 Office outpatient visit 25 minutes Winsome Cuevas [employer] SWEE[employer] Work Phone: [facility] Comment on above: Generalized anxiety disorder (Primary Dx); Abdominal discomfort in right upper quadrant; Psychophysiological insomnia; Nausea; Chronic gastritis without bleeding, unspecified gastritis type Start: 03-23-2024 End: 03-23-2024 Office outpatient visit 15 minutes Mesha Garcia PA-C Work Phone: [facility] Comment on above: Chronic pain syndrom e (Primary Dx); Musculoskeletal pain; Spondylosis of lumbosacral region without myelopathy or radiculopathy; Stage 2 chronic kidney disease Start: 03-23-2024 End: 03-23-2024 ambulatory MESHA Schaff[facility] Start: 03-17-2024 End: 03-17-2024 Patient encounter procedure Cassy ROSARIO -Nuclear Medicine, [facility] Work Phone: Start: 03-17-2024 End: 03-17-2024 ambulatory Cassy Joiner Facility:[facility] Start: 03-10-2024 End: 03-10-2024 Emergency department patient visit Home Grace DO -Emergency Department Work Phone: Start: 03-08-2024 End: 03-08-2024 Emergency department patient visit WINSOME CUEVAS [facility] Start: 03-01-2024 End: 03-01-2024 Patient encounter procedure Cassy ROSARIO -Nuclear Medicine, [facility] Work Phone: Start: 03-01-2024 End: 03-01-2024 ambulatory Cassy Joiner Facility:[facility] Start: 02-25-2024 End: 02-25-2024 ambulatory Cassy Joiner Facility:[facility] Start: 02-11-2024 ambulatory Winsome Cuevas Facility:[facility] Start: 02-11-2024 End: 02-11-2024 ambulatory Tl Desean Facility:[facility] Start: 02-04-2024 End: 02-04-2024 ambulatory Cassy Joiner Facility:[facility] Start: 02-04-2024 End: 02-04-2024 ambulatory Cassy Joiner Facility:[facility] Start: 02-03-2024 End: 02-03-2024 Office outpatient visit 25 minutes Timmy Mariano MD Work Phone: [facility] Nephrology 2 Comment on above: Chronic kidney disea se, stage II (mild) (Primary Dx) Start: 01-30-2024 End: 01-30-2024 Subsequent hospital visit by physician Winsome BOURGEOIS Work Phone: [facility] Ultrasound Comment on above: Arrived Start: 01-27-2024 End: 01-27-2024 Office outpatient visit 25 minutes Winsome BOURGEOIS Work Phone: [facility] Medicine Comment on above: Abdominal discomfort in right upper quadrant (Primary Dx); Nausea Start: 01-20-2024 End: 01-20-2024 Office outpatient visit 15 minutes Mesha Garcia PA-C Work Phone: [facility] Comment on above: Musculoskeletal pain (Primary Dx); Spondylosis of lumbosacral region without myelopathy or radiculopathy; Chronic pain syndrome Start: 01-20-2024 End: 01-20-2024 ambulatory MESHA GARCIA [facility] Start: 01-11-2024 End: 01-11-2024 [facility] Start: 12-29-2023 End: 12-29-2023 Emergency department patient visit Galen Mendoza Facility:[facility] Start: 12-29-2023 End: 12-29-2023 ambulatory Bruce QUIGLEY Facility:[facility] Start: 12-11-2023 End: 12-11-2023 Subsequent hospital visit by physician Stef Maki DO Work Phone: [facility] [place] Comment on above: Spondylosis of lumbo sacral region without myelopathy or radiculopathy Start: 12-11-2023 End: 12-11-2023 ambulatory STEF MAKI [facility] Start: 11-30-2023 End: 11-30-2023 Office outpatient visit 15 minutes Ivelisse Gaston APRN-DECK MECHANIC Work Phone: [facility] Office Building Comment on above: Spondylosis of lumbo sacral region without myelopathy or radiculopathy; Chronic pain syndrome; Stage 2 chronic kidney disease Start: 11-30-2023 End: 11-30-2023 ambulatory IVELISSE GASTON [facility] Start: 11-20-2023 End: 11-20-2023 Subsequent hospital visit by physician Stef Maki DO Work Phone: [facility] [place] Comment on above: Spondylosis of lumbo sacral region without myelopathy or radiculopathy Start: 11-20-2023 End: 11-20-2023 ambulatory STEF MAKI [facility] Start: 11-04-2023 End: 11-04-2023 Office outpatient visit 25 minutes Mesha MARSHALLC Work Phone: [facility] Office Building Comment on above: Spondylosis of lumbo sacral region without myelopathy or radiculopathy (Primary Dx); Chronic pain syndrome Start: 11-04-2023 End: 11-04-2023 ambulatory MESHA GARCIA [facility] Start: 10-30-2023 End: 10-30-2023 Subsequent hospital visit by physician Stef Maki DO Work Phone: [facility] [place] Comment on above: Spondylosis of lumbo sacral region without myelopathy or radiculopathy Start: 10-30-2023 End: 10-30-2023 ambulatory STEF MAKI [facility] Start: 10-21-2023 End: 10-21-2023 Office outpatient visit 25 minutes Alexandru Ramirez DPM Work Phone: [facility] Comment on above: Cellulitis of left f oot (Primary Dx) Start: 10-21-2023 End: 10-21-2023 ambulatory WINSOME CUEVAS [facility] Ambulatory Start: 10-16-2023 End: 10-16-2023 Office outpatient visit 25 minutes Winsome Cuevas APRN-DECK MECHANIC Work Phone: [facility] Comment on above: Impacted cerumen of right ear (Primary Dx); Generalized anxiety disorder; Nausea; Psychophysiological insomnia Start: 10-14-2023 End: 10-14-2023 Office outpatient visit 15 minutes Alexandru Ramirez DPM Work Phone: [facility] Podiatry Comment on above: Cellulitis of left f oot (Primary Dx) Start: 10-14-2023 End: 10-14-2023 ambulatory ALEXANDRU RAMIREZ JR. [facility] Ambulatory Start: 10-08-2023 End: 10-08-2023 Office outpatient visit 25 minutes Mesha Garcia PA-C Work Phone: [facility] Office Building Comment on above: Spondylosis of lumbo sacral region without myelopathy or radiculopathy (Primary Dx); Chronic pain syndrome; Stage 2 chronic kidney disease Start: 09-30-2023 End: 09-30-2023 Office outpatient visit 25 minutes Timmy Mariano MD Work Phone: [facility] Nephrology 2 Comment on above: Chronic kidney disea se, stage II (mild) (Primary Dx) Start: 09-17-2023 End: 09-17-2023 Subsequent hospital visit by physician Winsome Cuevas APRN-DECK MECHANIC Work Phone: [facility] MRI Comment on above: Arrived Start: 09-08-2023 End: 09-08-2023 Office outpatient visit 25 minutes Lindsay Pearson MD Work Phone: [facility] Neurology Comment on above: Psychogenic nonepile ptic seizure (Primary Dx) Start: 09-07-2023 End: 09-07-2023 Office outpatient visit 25 minutes Winsome Cuevas CAR SWEEPER-DECK MECHANIC Work Phone: [facility] Comment on above: Seizure (Primary Dx) ; Generalized anxiety disorder; Nausea; Lumbosacral radiculopathy Start: 09-01-2023 ambulatory [facility] Provider [facility] Comment on above: 11/15 Start: 09-01-2023 E-mail encounter fro m caregiver [facility] Provider [facility] Start: 08-28-2023 End: 08-28-2023 Emergency department patient visit UNKNOWN AA UNKNOWN [facility] Start: 08-25-2023 End: 08-25-2023 ambulatory WINSOME CUEVAS Facility:[facility] Start: 08-25-2023 End: 08-25-2023 Subsequent hospital visit by physician [facility] Work Phone: Radiology Comment on above: Breast lump on left side at 1 o'clock position [N63.21] Start: 08-10-2023 End: 08-10-2023 Office outpatient visit 15 minutes Winsome Cuevas CAR SWEEPER-DECK MECHANIC Work Phone: [facility] Comment on above: Acute left-sided low back pain with left-sided sciatica (Primary Dx) Start: 08-04-2023 End: 08-04-2023 Subsequent hospital visit by physician [facility] X-[facility] Fluoro 1 [facility] Comment on above: Lumbago with sciatic a, left side Start: 08-03-2023 End: 08-03-2023 ambulatory WINSOME CUEVAS Facility:[facility] Start: 08-03-2023 End: 08-03-2023 Patient encounter procedure Wilfrid Champion APRN.CNM Work Phone: OB/Gynecology Comment on above: Breast lump on left side at 1 o'clock position (Primary Dx); Breast pain in female Start: 07-15-2023 End: 07-15-2023 Office outpatient visit 25 minutes Winsome Cuevas CAR SWEEPER-DECK MECHANIC Work Phone: [facility] Comment on above: Generalized anxiety disorder (Primary Dx); Psychophysiological insomnia; Chronic bilateral low back pain without sciatica; Nausea; Urinary frequency Start: 06-10-2023 End: 06-10-2023 Emergency department patient visit Rhys Conn MD Work Phone: [facility] Emergency Department Start: 06-10-2023 End: 06-10-2023 Office outpatient visit 25 minutes Timmy Mariano MD Work Phone: [facility] Nephrology 2 Comment on above: Acute right flank pa in (Primary Dx) Start: 05-04-2023 End: 05-04-2023 ambulatory WINSOME CUEVAS Facility:[facility] Start: 05-04-2023 End: 05-04-2023 Patient encounter procedure Mary Lou Morrison DO Work Phone: Obstetrics/Gynecology Comment on above: Endometriosis (Prima ry Dx) Start: 05-01-2023 End: 05-01-2023 Emergency department patient visit [facility] Work Phone: Start: 04-22-2023 End: 04-22-2023 Office outpatient visit 25 minutes Winsome Cuevas APRN-DECK MECHANIC Work Phone: [facility] Comment on above: VSD (ventricular sep teto defect) (Primary Dx); Generalized anxiety disorder; Nausea; Chronic bilateral low back pain without sciatica; Psychophysiological insomnia Start: 04-08-2023 End: 04-08-2023 ambulatory Radha Santiago APRN.DECK MECHANIC Work Phone: Gynecology Comment on above: Postoperative state (Primary Dx); Endometriosis determined by laparoscopy; Adenomyosis; S/P JOHN (total abdominal hysterectomy) 03/2023 (age 37) for endometriosis and adenomyosis Start: 04-08-2023 End: 04-08-2023 Telemedicine consultation with patient Radha Santiago APRN.DECK MECHANIC Work Phone: [facility] Start: 03-26-2023 Telephone encounter Mary Lou arredondo DO Work Phone: Gynecology Comment on above: Post Op Call Start: 03-24-2023 End: 03-24-2023 ambulatory MARY LOU MORRISON Facility:[facility] Start: 03-17-2023 End: 03-17-2023 ambulatory WINSOME MASON Facility:[facility] Start: 03-16-2023 End: 03-16-2023 ambulatory WINSOME MASON Facility:[facility] Start: 03-09-2023 Encounter for other preprocedural examination WINSOME CUEVAS [facility] Start: 03-09-2023 End: 03-09-2023 ambulatory WINSOME MASON Facility:[facility] Start: 03-05-2023 End: 03-05-2023 ambulatory WINSOME MASON Facility:[facility] Start: 03-02-2023 End: 03-02-2023 ambulatory WINSOME MASON Facility:[facility] Start: 02-10-2023 End: 02-10-2023 Office outpatient new 30 minutes Ann Lee MD Work Phone: [facility] Comment on above: Abnormal uterine ble eding (AUB) (Primary Dx); Pelvic pain in female Start: 01-28-2023 End: 01-28-2023 Patient encounter procedure Mary Lou Morrison DO Work Phone: Obstetrics/Gynecology Comment on above: Pelvic pain in femal e (Primary Dx); Endometriosis; Abnormal uterine bleeding (AUB); Preop examination Start: 01-28-2023 End: 01-28-2023 Preprocedural examination done Mary Lou Morrison DO Work Phone: [facility] Work Phone: Start: 01-28-2023 End: 01-28-2023 ambulatory WINSOME CUEVAS Facility:[facility] Start: 01-13-2023 End: 01-13-2023 ambulatory Colleen Zavala MD Work Phone: [facility] Start: 01-13-2023 Follow-up encounter Colleen Zavala MD Work Phone: OB/Gynecology Comment on above: Followup on ultrasou nd Start: 01-13-2023 End: 01-13-2023 Subsequent hospital visit by physician [facility] Work Phone: Radiology Comment on above: Ovarian cyst, left [ N83.202] Start: 01-12-2023 Telephone encounter Colleen Zavala MD Work Phone: OB/Gynecology Comment on above: Follow Up Start: 12-18-2022 End: 12-18-2022 ambulatory WINSOME CUEVAS Facility:[facility] Start: 12-17-2022 End: 12-17-2022 ambulatory COLLEEN ZAVALA Facility:[facility] Start: 12-17-2022 End: 12-17-2022 Patient encounter procedure [facility] Work Phone: OB/Gynecology Comment on above: Endometriosis (Prima ry Dx); Ovarian cyst, left; Pelvic pain in female; Pain associated with surgical procedure Start: 12-16-2022 Telephone encounter Colleen Zavala MD Work Phone: OB/Gynecology Start: 12-15-2022 End: 12-15-2022 Emergency department patient visit [facility] Work Phone: Start: 12-09-2022 End: 12-09-2022 ambulatory WINSOME CUEVAS Facility:[facility] Start: 12-03-2022 Telephone encounter Colleen Zavala MD Work Phone: OB/Gynecology Comment on above: Results Start: 12-03-2022 End: 12-03-2022 ambulatory WINSOME CUEVAS Facility:[facility] Start: 12-03-2022 End: 12-03-2022 Patient encounter procedure Colleen Zavala MD Work Phone: OB/Gynecology Comment on above: Pelvic pain in femal e (Primary Dx); Retained products of conception after miscarriage; Episode of heavy vaginal bleeding; Ovarian cyst, left Start: 11-27-2022 End: 11-27-2022 Admission to same day surgery center [facility] Start: 11-27-2022 End: 11-27-2022 ambulatory [facility] Work Phone: Start: 11-24-2022 End: 11-24-2022 [facility]ulatory [facility] Facility:[facility] Start: 11-24-2022 End: 11-24-2022 Patient encounter procedure Colleen Zavala MD Work Phone: OB/Gynecology Comment on above: Missed (Deneen annetta Dx); Bleeding in early ; Screening for malignant neoplasm of cervix; Special screening examination for human papillomavirus (HPV) Start: 11-21-2022 End: [facility] Start: 11-21-2022 End: 11-21-2022 Patient encounter procedure [facility] Work Phone: OB/Gynecology Comment on above: Spotting in early pr egnancy Start: 11-17-2022 End: 11-17-2022 [facility] Facility:[facility] Start: 11-17-2022 End: 11-17-2022 Nursing evaluation of patient and report Nurse Pnob [facility] Work Phone: OB/Gynecology Comment on above: with prena teto care elsewhere, antepartum (Primary Dx); Supervision of with history of infertility, first trimester; Vaginal bleeding in , first trimester; Antepartum multigravida of advanced maternal age; History of hypertension; History of classical section; History of placental abruption; in prior , currently ; History of depression; History of cervical LEEP biopsy affecting care of mother, antepartum; Nausea and vomiting during ; History of depression/anxiety/insomnia; History of psychogenic nonepileptic seizure; Kidney problem Start: 11-13-2022 End: 11-13-2022 Office outpatient visit 25 minutes Timmy Mariano MD Work Phone: [facility] Nephrology 2 Comment on above: Hypokalemia (Primary Dx) Start: 11-12-2022 End: 11-12-2022 Office outpatient visit 25 minutes Winsome Cuevas CAR SWEEPER-DECK MECHANIC Work Phone: [facility] Comment on above: Incidental (Primary Dx); Generalized anxiety disorder; Psychophysiological insomnia Start: 11-11-2022 Telephone encounter Sudeep almeida MD Work Phone: OB/Gynecology Comment on above: Early OB pain Start: 11-11-2022 End: 11-11-2022 Emergency department patient visit [facility] Work Phone: Start: 11-09-2022 End: 11-09-2022 Emergency department patient visit [facility] Work Phone: Start: 11-09-2022 Telephone encounter Charlotte addison MD Work Phone: OB/Gynecology Comment on above: Appointment Start: 11-07-2022 End: 11-07-2022 ambulatory WINSOME FREISTATT Facility:[facility] Start: 11-05-2022 End: 11-05-2022 ambulatory [facility] Facility:[facility] Start: 10-08-2022 End: 10-08-2022 ambulatory [facility] Work Phone: Start: 10-08-2022 End: 10-08-2022 Patient encounter procedure [facility] [place] 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 Off Start: 09-19-2022 End: 09-19-2022 Emergency department patient visit [facility] Work Phone: Start: 08-18-2022 End: 08-18-2022 Emergency department patient visit [facility] Work Phone: Start: 08-06-2022 End: 08-06-2022 ambulatory [facility] Work Phone: Start: 08-06-2022 End: 08-06-2022 Patient encounter procedure [facility] [place] 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 Comment on above: Psychophysiological insomnia; Generalized anxiety disorder Start: 07-09-2022 End: 07-09-2022 Office outpatient visit 25 minutes Winsome Cuevas CAR SWEEPER-DECK MECHANIC Work Phone: [facility] Comment on above: Vaginal candidiasis (Primary Dx); Psychophysiological insomnia Start: 07-02-2022 End: 07-03-2022 ambulatory WINSOME CUEVAS [facility] Start: 06-30-2022 ambulatory WINSOME [facility] Start: 06-30-2022 ambulatory WINSOME [facility] Start: 06-30-2022 End: 06-30-2022 Office outpatient new 30 minutes Lindsay eParson MD Work Phone: [facility] Comment on above: Psychogenic nonepile ptic seizure (Primary Dx) Start: 06-11-2022 ambulatory WINSOME [facility] Start: 06-11-2022 End: 06-11-2022 Office outpatient visit 25 minutes Winsome Cuevas CAR SWEEPER-DECK MECHANIC Work Phone: [facility] Comment on above: Generalized anxiety disorder (Primary Dx); Psychophysiological insomnia; Nausea; Nightmares; Heartburn; Left hand paresthesia Start: 05-26-2022 ambulatory WINSOME [facility] Start: 05-23-2022 End: 05-23-2022 Emergency department patient visit WINSOME CUEVAS Facility:[facility] Start: 05-02-2022 End: 05-02-2022 Emergency department patient visit PUJA KNOX Facility:[facility] Start: 03-17-2022 End: 03-17-2022 Admission to same day surgery center [facility] Start: 03-17-2022 End: 03-17-2022 ambulatory [facility] Work Phone: Start: 03-05-2022 ambulatory WINSOME [facility] Start: 02-24-2022 End: 02-24-2022 Emergency department patient visit [facility]Emer[facility] Start: 02-20-2022 End: 02-20-2022 ambulatory WINSOME CUEVAS [facility] Work Phone: Start: 02-20-2022 End: 02-20-2022 [facility] [place] 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 Off Start: 02-18-2022 Telephone encounter Alberto Patterson PhD Work Phone: [facility] Comment on above: cancel appt Start: 01-06-2022 End: 01-06-2022 Emergency department patient [facility] Dr[facility]ist [facility] Start: 12-18-2021 End: 12-18-2021 ambulatory [facility] Start: 12-16-2021 End: 12-16-[address] Tigist Blanco Work Phone: [facility] Endocrinology Start: 12-11-2021 ambulatory [facility] Start: 12-11-2021 End: 12-11-2021 Office outpatient visit 25 minutes Timmy Mariano MD Work Phone: [facility] Nephrology 2 Comment on above: Kidney stone (Primar y Dx) Start: 12-09-2021 ambulatory WINSOME CUEVAS [facility] Start: 12-09-2021 ambulatory [facility] Start: 12-09-2021 End: 12-09-2021 Office outpatient visit 15 minutes Winsome Cuevas CAR SWEEPER-DECK MECHANIC Work Phone: [facility] Family Medicine Comment on above: Psychophysiological insomnia; Generalized anxiety disorder Start: 12-02-2021 End: 12-02-2021 Emergency department patient visit Dr. Tigist Blanco Work Phone: [facility]Emer[facility] Start: 11-11-2021 [facility] Start: 10-25-2021 End: 10-25-2021 Emergency department patient visit Dr. Tigist Blanco Work Phone: [facility]Emergency Department Start: 10-23-2021 Non-patient / Non-visit Dr. Yury Blanco Work Phone: [facility] Start: 10-23-2021 End: 10-23-2021 Admission to same day surgery center Dr. Tigist Blanco Work Phone: [facility]-Endoscopy Start: 10-23-2021 End: 10-23-[address] Tigist Blanco Work Phone: [facility] Work Phone: Start: 10-20-2021 End: 10-20-2021 Emergency department patient visit Dr. Tigist Blanco Work Phone: [facility]Emergency Department Start: 10-15-2021 End: 10-15-[address] Tigist Blanco Work Phone: [facility] Start: 10-07-2021 ambulatory [facility]INSOME [facility] Start: 10-07-2021 ambulatory WINSOME Moe MASON [facility] Start: 10-07-2021 End: 10-07-2021 Office outpatient visit 25 minutes Winsome Cuevas CAR SWEEPER-DECK MECHANIC Work Phone: [facility] Comment on above: Nausea and vomiting, unspecified vomiting type (Primary Dx); RUQ pain; Hypokalemia; Psychophysiological insomnia; Generalized anxiety disorder Start: 08-27-2021 End: 08-27-2021 Emergency department patient visit Dr. Irineo Carter Work Phone: [facility]Emergency Department Start: 06-12-2021 End: 06-12-2021 Office outpatient visit 25 minutes Winsome Cuevas CAR SWEEPER-DECK MECHANIC Work Phone: [facility] Comment on above: Anterior pleuritic p ain (Primary Dx); Anxiety Start: 06-07-2021 Non-patient / Non-visit Dr. Carito Carter Work Phone: [facility] Physicians Start: 06-07-2021 Non-patient / Non-visit Dr. Steve Morales Work Phone: [facility] Start: 06-06-2021 Non-patient / Non-visit Dr. Steve Morales Work Phone: [facility] Start: 06-06-2021 End: 06-07-2021 Evaluation and management of inpatient Dr. Angel Morales Work Phone: [facility]Progressive Care Unit Start: 06-06-2021 Non-patient / Non-visit Dr. Steve Morales Work Phone: [facility] Start: 06-06-2021 Non-patient / Non-visit Dr. Carito Carter Work Phone: [facility] Start: 05-01-2021 End: 05-01-2021 Office outpatient visit 25 minutes Winsome LYNNDECK MECHANIC Work Phone: [facility] Comment on above: Generalized anxiety disorder (Primary Dx); Psychophysiological insomnia; Nausea; Chronic right-sided thoracic back pain Start: 04-17-2021 End: 04-17-2021 Emergency department patient visit Dr. Angel Morales Work Phone: [facility]Emergency Department Start: 02-07-[address] Mercedes Morales Work Phone: [facility] Start: 01-01-2021 End: 01-07-2021 Evaluation and management of inpatient John Bauer MD Work Phone: [facility] Comment on above: delivery (Pr imary Dx) Start: 12-21-2020 End: 12-21-2020 Office outpatient visit 10 minutes Alexandru Ramirez DPM Work Phone: [facility] Podiatry Comment on above: Avulsion of toenail, initial encounter (Primary Dx) Start: 12-18-2020 End: 12-18-2020 Emergency department patient visit Lino Eagle [facility] Emergency 12 Start: 09-29-2020 End: 09-29-2020 Subsequent hospital visit by physician Winsome Cuevas APRN-DORETHA Work Phone: [facility] Ultrasound Comment on above: Arrived Start: 09-27-2020 End: 09-27-2020 Emergency department patient visit Stevo Perez [facility] Emergency 02 Start: 09-10-2020 End: 09-10-2020 Office outpatient new 45 minutes Dale Montoya MD Work Phone: [facility] Pulmonary Disease [facility] Comment on above: Mild intermittent as thma without complication (Primary Dx); Vocal cord dysfunction; Secondary pulmonary arterial hypertension; Vitamin D deficiency; Screening for viral disease Start: 07-13-2020 End: 07-18-2020 Evaluation and management of inpatient [facility] Start: 07-13-2020 Critical care ill/in jured patient init 30-74 min Henry Huntley MD Work Phone: [facility] Start: 07-13-2020 End: 07-18-2020 Evaluation and management of inpatient Henry Huntley MD Work Phone: [facility] Start: 10-22-2019 End: 10-22-2019 Emergency department patient visit WINSOME CUEVAS [facility] Start: 10-17-2019 Patient encounter procedure Benitez [facility] Work Phone: Start: 09-01-2019 Patient encounter procedure Benitez [facility] Work Phone: Start: 08-12-2019 Patient encounter procedure Benitez [facility]bar [facility] Work Phone: Start: 08-05-2019 Patient encounter procedure [facility] Work Phone: Start: 08-02-2019 Patient encounter procedure Benitez [facility] Work Phone: Start: 07-29-2019 Patient encounter procedure Benitez [facility] [place] Work Phone: Start: 07-26-2019 Patient encounter procedure Benitez [facility] [place] Work Phone: Start: 07-22-2019 Patient encounter procedure Benitez [facility] [place] Work Phone: Start: 07-18-2019 Patient encounter procedure Benitez [facility] [place] Work Phone: Start: 07-08-2019 Patient encounter procedure Benitez [facility] [place] Work Phone: Start: 05-30-2019 Patient encounter procedure Benitez [facility] [place] Work Phone: Start: 04-22-2018 End: 04-26-2018 [facility] and management [facility] Start: 04-22-2018 End: 04-26-2018 Evaluation and management of inpatient Yvesmónica Brown [facility] Work Phone: [facility] Epilepsy Monitoring [facility] Comment on above: Chronic pain syndrom e; Hallucinations; Hypokalemia; Kidney stones; Migraine without aura, intractable, without status migrainosus; Mild intermittent asthma without complication; PID (pelvic inflammatory disease); Pseudoseizures; Reactive hypoglycemia; Sleep apnea, obstructive; Stage 2 chronic kidney disease; Transient loss of consciousness; RLS (restless legs syndrome); Episode of transient neurologic symptoms Start: 04-14-2018 Patient encounter procedure Facility:[id number] Start: 03-24-2018 Patient encounter procedure Facility:[id number] Start: 11-30-2017 Patient encounter procedure Facility:[id number] Start: 10-13-2017 Patient encounter procedure Facility:[id number] Start: 06-17-2017 Ambulatory [facility] Start: 12-22-2016 End: 12-22-2016 Emergency department patient visit [facility] Facility:[place] Start: 09-19-2016 Ambulatory JENNIFER Balderas [facility] Start: 09-19-2016 End: 09-19-2016 Ambulatory JENNIFER CROW [facility] Start: 08-28-2016 Ambulatory Sarabjit delgado Work Phone: [facility] Neurological Physicians Procedures Date Procedure Procedure Detail Performing Clinician Start: 09-28-2024 Mri any jt lower extrem w/o contrast matrl Zuleima Thomas DO Work Phone: Start: 08-24-2024 Urnls dip stick/tablet reagent auto microscopy Winsome [place] HEALTH NAVIGATOR-C Work Phone: Start: 08-24-2024 Estimated creatinine clearance Winsome R omar HEALTH NAVIGATOR-C Work Phone: Start: 08-24-2024 CT of abdomen and pelvis without contrast Winsome [place] HEALTH NAVIGATOR-C Work Phone: Start: 06-27-2024 Plain x-ray of pelvis and lower extremity Winsome [place] HEALTH NAVIGATOR-C Work Phone: Start: 06-27-2024 Urnls dip stick/tablet reagent auto microscopy Winsome [place] HEALTH NAVIGATOR-C Work Phone: Start: 06-27-2024 Estimated creatinine clearance Winsome R omar HEALTH NAVIGATOR-C Work Phone: Start: 06-27-2024 CT of lumbar spine Winsome [place] HEALTH NAVIGATOR-C Work Phone: Start: 06-27-2024 Computed tomography of abdomen and pelvis with intravenous contrast Winsome Mason HEALTH NAVIGATOR-C Work Phone: Start: 06-24-2024 Basic metabolic panel calcium total Delta Hernandez MD Work Phone: Start: 06-24-2024 CBC W Auto Differential panel - Blood Delta Hernandez MD Work Phone: Start: 06-23-2024 PULSE OXIMETRY, CONTINUOUS Delta pereira MD Work Phone: Start: 06-23-2024 XR FLUORO UP TO 1 HOUR (STATISTICS)(NO REPORT) Zuleima Thomas DO Work Phone: Start: 06-23-2024 End: 06-23-2024 FUSION LUMBAR ANTERIOR Zuleima Thomas DO Work Phone: Start: 06-23-2024 Antibody screen ZULEIMA THOMAS Comment on above: Performed By: #### [id number] #### [facility] [address] [place] [address] Start: 06-23-2024 Antibody screen rbc each serum technique Zuleima Thomas DO Work Phone: Start: 06-23-2024 POCT GLUCOSE BLOOD Zuleima Thomas DO Work Phone: Start: 06-21-2024 Antibody screen ZULEIMA THOMAS Comment on above: Performed By: #### [id number] #### [facility] [address] [place] [address] Start: 03-17-2024 Radionuclide gastric emptying study Winsome Cuevas HEALTH NAVIGATOR-C Work Phone: Start: 03-10-2024 Estimated creatinine clearance Winsome nelson HEALTH NAVIGATOR-C Work Phone: Start: 03-10-2024 Measurement of renal function Winsome isaac HEALTH NAVIGATOR-C Work Phone: Comment on above: GFR Calc Start: 03-10-2024 SARS-CoV-2, Influenza & RSV (PCR) Poornima Cuevas HEALTH NAVIGATOR-C Work Phone: Start: 03-10-2024 Serum ethanol measurement Winsome Cuevas N P-C Work Phone: Comment on above: The serum:whole blood ethanol ratio is a pproximately 1.14and varies slightly with hematocrit. Medical Alcohol reference interval and critical value innon-tolerant individuals; 50 - 100 Impairment 100 Intoxication 100 - 250 Severe Poisoning 250 - 400 Deep/possible fatal coma Start: 03-10-2024 Measurement of 3,4-methylenedioxymethamphetamine in urine Winsome Cuevas HEALTH NAVIGATOR-C Work Phone: Start: 03-10-2024 Methadone measurement, urine Winsome Kovacs y HEALTH NAVIGATOR-C Work Phone: Start: 03-10-2024 Urine barbiturate measurement Winsome Ro by HEALTH NAVIGATOR-C Work Phone: Start: 03-10-2024 Urnls dip stick/tablet reagent auto microscopy Winsome Cuevas HEALTH NAVIGATOR-C Work Phone: Start: 03-10-2024 CT of abdomen and pelvis without contrast Winsome Cuevas HEALTH NAVIGATOR-C Work Phone: Start: 03-10-2024 CT of head without contrast Winsome Cuevas HEALTH NAVIGATOR-C Work Phone: Start: 03-10-2024 Plain chest X-ray Winsome Cuevas HEALTH NAVIGATOR-C Work Phone: Start: 03-01-2024 Radionuclide study of abdomen Winsome Ro by HEALTH NAVIGATOR-C Work Phone: Start: 12-11-2023 Dstr nrolytc agnt parverteb fct addl lmbr/sacral Ivelisse Gaston CAR SWEEPER-DECK MECHANIC Work Phone: Start: 12-11-2023 FL PAIN MANAGEMENT Ivelisse Gaston CAR SWEEPER-DECK MECHANIC Work Phone: Start: 11-20-2023 FL PAIN MANAGEMENT Mesha QUIGLEY-C Work Phone: Start: 11-20-2023 Njx dx/ther agt pvrt facet jt lmbr/sac 1 level Mesha QUIGLEY-C Work Phone: Start: 10-30-2023 FL PAIN MANAGEMENT Mesha QUIGLEY-C Work Phone: Start: 10-30-2023 Njx dx/ther agt pvrt facet jt lmbr/sac 1 level Mesha QUIGLEY-C Work Phone: Start: 08-25-2023 Us breast uni real time with image limited Wilfrid Champion APRN.CNM Work Phone: Start: 08-25-2023 Digital breast tomosynthesis unilateral Wilfrid Champion CAR SWEEPER.CNM Work Phone: Start: 07-15-2023 Urnls dip stick/tablet rgnt non-auto w/o micrscp Winsome Cuevas CAR SWEEPER-DECK MECHANIC Work Phone: Start: 06-10-2023 Ct abdomen & pelvis w/o contrast material Rhys Conn MD Work Phone: Start: 06-10-2023 Complete blood count with white cell differential, automated Rhys Conn MD Work Phone: Start: 06-10-2023 Creatinine blood Rhys Conn MD Work Phone: Start: 06-10-2023 Urinalysis microscopic only Rhys freeman MD Work Phone: Start: 06-10-2023 Urinalysis, reagent strip without microscopy Rhys Conn MD Work Phone: Start: 05-01-2023 Transvaginal echography Start: 05-01-2023 CT of abdomen and pelvis without contrast Start: 04-08-2023 History of total hysterectomy S/P JOHN (total abdominal hysterectomy) 03/2023 (age 37) for endometriosis and adenomyosis Radha Santiago CAR SWEEPER.DECK MECHANIC Work Phone: Start: 03-09-2023 Antibody screen WINSOME CUEVAS Comment on above: Order Comment: Specimen Type: BLOOD SPEC IMENOrdering Facility: [facility] Address: [address] [place] [address] Performed By: #### T [id number] ####CC MAIN BLOOD BANKCLIA [id number] [place] [address] [place] Start: 01-13-2023 Us transvaginal Colleenseble Zavala MD Work Phone: Start: 12-17-2022 Us pelvic nonobstetric real-time image complete Colleen Zavala MD Work Phone: Start: 12-15-2022 Transvaginal echography Start: 11-27-2022 H/O: surgery History of D&C Mesha Garcia PA-C Work Phone: Start: 11-27-2022 Dilation and curettage of uterus Start: 11-24-2022 Microscopic observation [Identifier] in Cervix by Cyto stain Mesha Garcia PA-C Work Phone: Start: 11-21-2022 Us preg uterus after 1st trimest 02/16 gestation Charlotte Garcia MD Work Phone: Start: 11-17-2022 End: 03-24-2023 H/O: section History of classical section Nurse Pnob [facility] Work Phone: Start: 11-11-2022 Computed tomography of abdomen and pelvis with intravenous contrast Start: 11-09-2022 Transvaginal obstetric ultrasonography Start: 09-19-2022 Radiologic examination of knee Start: 08-18-2022 Plain chest X-ray Start: 08-18-2022 X-ray of soft tissue of neck Start: 03-17-2022 Laparoscopy WINSOME MASON Start: 02-24-2022 CT of abdomen and pelvis without contrast WINSOME MASON Start: 01-06-2022 Plain chest X-ray Dr. Tigist Blanco Work Phone: Start: 12-02-[address] Tigist Blanco Work Phone: Start: 12-02-2021 X-ray of both feet Dr. Tigist Blanco Work Phone: Start: 10-25-2021 Plain chest X-ray Dr. Tigist Blanco Work Phone: Start: 10-25-2021 US scan of gallbladder Dr. Tigist Blanco Work Phone: Start: 10-23-[address] Tigist Blanco Work Phone: Start: 10-20-2021 CT of abdomen and pelvis without contrast Dr. Tigist lBanco Work Phone: Start: 08-27-2021 CT of abdomen and pelvis without contrast Dr. Irineo Carter Work Phone: Start: 06-06-2021 CT of thorax, abdomen and pelvis with contrast Dr. Angel Morales Work Phone: Start: 06-06-2021 Plain chest X-ray Dr. Angel Morales Work Phone: Start: 06-06-2021 End: 06-06-[address] Angel Morales Work Phone: Start: 04-17-2021 US scan of gallbladder Dr. Angel Morales Work Phone: Start: 04-17-2021 CT of abdomen and pelvis without contrast Dr. Angel Morales Work Phone: Start: 02-07-2021 CT of abdomen and pelvis without contrast Dr. Angel Morales Work Phone: Start: 01-07-2021 H/O: section History of classical section Alberto Greenfield PhD Work Phone: Start: 01-06-2021 Blood count hemoglobin Joseph M Yuniel DO Work Phone: Start: 01-05-2021 Blood count complete automated Jaida Tommyrashid [facility] DO Work Phone: Start: 01-05-2021 PROTIME/INR & PTT Jaida [facility] DO Work Phone: Start: 01-04-2021 RADIOLOGY REPORT 3m Scanning Start: 01-04-2021 biophysical profile w/o non-stress testing Elver Roth DO Work Phone: Start: 01-04-2021 Antibody screen John Bauer MD Work Phone: Start: 01-04-2021 Blood typing serologic abo Simone grant MD Work Phone: Start: 01-04-2021 Comprehensive metabolic panel Mary Lou Green Ca rlson DO Work Phone: Start: 11-17-2021 Us retroperitoneal real time w/image complete Mary Lou Velasquez DO Work Phone: Start: 01-02-2021 Urnls dip stick/tablet rgnt auto w/o microscopy Simone Maria MD Work Phone: Start: 01-01-2021 Gluc bld gluc mntr dev cleared fda spec home use John Bauer MD Work Phone: Start: 01-01-2021 Us preg uterus w/detail giovanny 1st gestation Issac Donovan DO Work Phone: Start: 01-01-2021 Antibody screen John Bauer MD Work Phone: Start: 01-01-2021 Blood typing serologic abo Cb Bhardwaj DO Work Phone: Start: 01-01-2021 Comprehensive metabolic panel Cb addison DO Work Phone: Start: 01-01-2021 End: 01-01-2021 Culture bacterial quanttative colony count urine Cb Bhardwaj DO Work Phone: Start: 01-01-2021 TRICHOMONAS VAGINALI, MOLECULAR Cbisidra Bhardwaj DO Work Phone: Start: 09-07-2020 ABO, EXTERNAL RESULT Historical Provider Start: 09-07-2020 C. TRACHOMATIS, EXTERNAL RESULT Historic al Provider Start: 09-07-2020 HEPATITIS B, EXTERNAL RESULT Historical Provider Start: 09-07-2020 HEPATITIS C ANTIBODY, EXTERNAL RESULT Historical Provider Start: 09-07-2020 HIV, EXTERNAL RESULT Historical Provider Start: 09-07-2020 N. GONORRHOEAE, EXTERNAL RESULT Historic al Provider Start: 09-07-2020 RH FACTOR, EXTERNAL RESULT Historical Provider Start: 09-07-2020 RPR, EXTERNAL RESULT Historical Provider Start: 09-07-2020 RUBELLA TITER, EXTERNAL RESULT Historica l Provider Start: 07-17-2020 Antinuclear antibodies sharon Tl nance MD Work Phone: Start: 07-17-2020 Sedimentation rate rbc automated Tl Bautista MD Work Phone: Start: 07-17-2020 Basic metabolic panel calcium total Janellezid Regina Hansen DO Work Phone: Start: 07-16-2020 Glucose measurement Patricia Vega MD Work Phone: Start: 07-15-2020 RADIOLOGY SCANS Provider Not In System Start: 07-15-2020 Blood count complete auto&auto difrntl wbc Poornima Coe MD Work Phone: Start: 07-14-2020 Urnls dip stick/tablet reagent auto microscopy Jayla Moralesour DECK MECHANIC Work Phone: Start: 07-14-2020 Ct abdomen & pelvis w/o contrast material Jayla Solis Seymour DECK MECHANIC Work Phone: Start: 07-14-2020 Comprehensive metabolic panel Jayla Kelley DECK MECHANIC Work Phone: Start: 07-14-2020 Basic metabolic panel calcium total Sobia London DECK MECHANIC Work Phone: Start: 07-13-2020 Assay of troponin quantitative Henry Huntley MD Work Phone: Start: 07-13-2020 Urnls dip stick/tablet reagent auto microscopy Henyr Huntley MD Work Phone: Start: 07-13-2020 Ct soft tissue neck w/contrast material Henry Huntley MD Work Phone: Start: 07-13-2020 Electrocardiogram Provider Not In System Start: 07-13-2020 Radiologic examination neck soft tissue Henry Huntley MD Work Phone: Start: 07-13-2020 Radiologic exam chest single view Henry Huntley MD Work Phone: Start: 07-13-2020 Ecg routine ecg w/least 12 lds w/i&r Henry Huntley MD Work Phone: Start: 07-13-2020 AGUILAR TOP Henry Huntley MD Work Phone: Start: 07-13-2020 LIGHT BLUE TOP Henry Huntley MD Work Phone: Start: 07-13-2020 RAINBOW DRAW Henry Huntley MD Work Phone: Start: 07-13-2020 End: 07-13-2020 Assay of magnesium Henry Huntley MD Work Phone: Start: 07-13-2020 Culture bacterial blood aerobic w/id isolates Henry Huntley MD Work Phone: Start: 07-13-2020 Hepatic function panel Henry Huntley MD Work Phone: Start: 07-13-2020 OBTAIN VENOUS BLOOD GASES AND PERFORM Henry Huntley MD Work Phone: Start: 07-13-2020 SARS-CoV-2 (COVID-19) RNA [Presence] in Respiratory specimen by DAYAMI with probe detection Henry Huntley MD Work Phone: Start: 07-13-2020 Gases blood ph direct len xcpt pulse oximitry Henry Huntley MD Work Phone: Start: 04-26-2018 Electroencephalographic monitoring regime Geovannarosalva Dumont Work Phone: Start: 04-26-2018 Electroencephalographic monitoring regime Radha Mathew Work Phone: Start: 04-25-2018 Glucose [Mass/volume] in Blood Yves Jaime Work Phone: Start: 04-25-2018 Adult depression screening assessment Alexandru Ramirez Jr., DPNorma Work Phone: Start: 04-23-2018 Potassium [Moles/volume] in Serum or Plasma Yves Jaime Work Phone: Start: 04-22-2018 Choriogonadotropin ( test) [Presence] in Urine Geovanna Emilie Dumont Work Phone: Start: 04-22-2018 Urinalysis Geovanna Emilie Dumont Work Phone: Start: 04-22-2018 Basic metabolic 2000 panel - Serum or Plasma Geovanna Emilie Dumont Work Phone: Start: 04-22-2018 Complete blood count (hemogram) panel - Blood by Automated count Geovanna Dumont Work Phone: Start: 04-22-2018 Hepatic function 2000 panel - Serum or Plasma Geovanna Dumont Work Phone: End: 10-07-2019 Local anesthetic facet joint nerve block Benitez Eubanks Urine culture WINSOME CUEVAS Viral antigen assay Dr. Paco Carter Work Phone: Plan of Treatment Date Care Activity Detail Author Start: 2036 Zoster Vaccines (1 of 2) Zoste r Vaccines (1 of 2) [facility] Start: 2027 HPV Testing HPV Testing [facility] Start: 2027 Pap Testing Pap Testing [facility] Start: 2027 Screening for malign ant neoplasm of cervix [facility] Start: 11-24-2025 Screening for malign ant neoplasm of cervix [facility] Start: 10-14-2025 Potassium [Moles/vol ume] in Serum or Plasma POTASSIUM [facility] Start: 08-01-2025 Potassium [Moles/vol ume] in Serum or Plasma POTASSIUM [facility] Start: 06-24-2025 Hypertension/CHF/CAD Annual BMP Blood Test Hypertension/CHF/CAD Annual BMP Blood Test [facility] Start: 06-23-2025 Social Influencers o f Health Screening Social Influencers of Health Screening [facility] Start: 06-02-2025 Lipid panel Cholesterol Sc reening (Lipid Panel) [facility] Start: 04-19-2025 End: 04-19-2025 Patient encounter procedure 04/19/2025 10:30 AM EST Office Visit [facility] [address] [place] [address] Timmy Mariano MD [address] [place] [address] [facility] Start: 03-08-2025 Urine screening for protein eGFR - Kidney Disease [facility] Start: 01-29-2025 Potassium [Moles/vol ume] in Serum or Plasma POTASSIUM [facility] Start: 01-04-2025 End: 01-04-2025 Patient encounter procedure 01/04/2025 4:20 PM EST Office Visit [facility] [address] [place] [phone] Winsome Cuevas, CAR SWEEPER-DECK MECHANIC [address] [place] [phone] [facility] Start: 10-26-2024 End: 10-26-2024 Patient encounter procedure 10/26/2024 9:00 AM EDT Office Visit [facility] Medical Office [facility] [address] [place] [phone] Mesha Garcia PA-C [address] [place], [place] [id number] [facility] Start: 10-19-2024 End: 10-19-2025 Complete blood count with white cell differential, automated CBC, EDIF, PLATELET Lab Routine Kidney stone Expected: 10/19/2024, Expires: 10/19/2025 [facility] Comment on above: Expected: 10/19/2024 , Expires: 10/19/2025 Start: 10-19-2024 End: 10-19-2025 Magnesium [Mass/volume] in Serum or Plasma MAGNESIUM Lab Routine Kidney stone Expected: 10/19/2024, Expires: 10/19/2025 [facility] Comment on above: Expected: 10/19/2024 , Expires: 10/19/2025 Start: 10-19-2024 End: 10-19-2025 MICROALBUMIN/CREATININE RATIO MICROALBUMIN/CREATININ E RATIO Fluids Routine Kidney stone Expected: 10/19/2024, Expires: 10/19/2025 [facility] Comment on above: Expected: 10/19/2024 , Expires: 10/19/2025 Start: 10-19-2024 End: 10-19-2025 PTH INTACT PTH INTACT Lab Routine Kidney stone Expected: 10/19/2024, Expires: 10/19/2025 [facility] Comment on above: Expected: 10/19/2024 , Expires: 10/19/2025 Start: 10-19-2024 End: 10-19-2025 RENAL FUNCTION PANEL RENAL FUNCTION PANEL Lab Routine Kidney stone Expected: 10/19/2024, Expires: 10/19/2025 [facility] Comment on above: Expected: 10/19/2024 , Expires: 10/19/2025 Start: 10-19-2024 End: 10-19-2025 Sodium [Moles/volume] in Urine SODIUM, RANDOM URINE Fluids Routine Kidney stone Expected: 10/19/2024, Expires: 10/19/2025 [facility] Comment on above: Expected: 10/19/2024 , Expires: 10/19/2025 Start: 10-19-2024 End: 10-19-2025 Urate [Mass/volume] in Serum or Plasma URIC ACID Lab Routine Kidney stone Expected: 10/19/2024, Expires: 10/19/2025 [facility] Comment on above: Expected: 10/19/2024 , Expires: 10/19/2025 Start: 10-19-2024 End: 10-19-2025 Urinalysis, reagent strip without microscopy URINALYSIS, MACRO Fluids Routine Kidney stone Expected: 10/19/2024, Expires: 10/19/2025 [facility] Comment on above: Expected: 10/19/2024 , Expires: 10/19/2025 Start: 10-19-2024 End: 10-19-2025 URINE PROTEIN/CREA RATIO, RANDOM URINE PROTEIN/CREA RATIO, RANDOM Fluids Routine Kidney stone Expected: 10/19/2024, Expires: 10/19/2025 [facility] Comment on above: Expected: 10/19/2024 , Expires: 10/19/2025 Start: 10-19-2024 End: 10-19-2025 VITAMIN D (25-HYDROXY,TOTAL) VITAMIN D (25-HYDROXY,TOTAL) Lab Routine Kidney stone Expected: 10/19/2024, Expires: 10/19/2025 [facility] Comment on above: Expected: 10/19/2024 , Expires: 10/19/2025 Start: 10-19-2024 End: 10-19-2024 Patient encounter procedure 10/19/2024 10:30 AM EDT Office Visit [facility] Neph[facility] [email or web address] [facility] [place] [address] Timmy Mariano MD [address] [place] [address] [facility] 2 Start: 10-17-2024 COVID-19 VACCINE ( season) COVID-19 VACCINE ( season) [facility] Start: 10-17-2024 Influenza vaccination [facility] Start: 09-06-2024 Potassium [Moles/vol ume] in Serum or Plasma POTASSIUM [facility] Start: 09-04-2024 DTaP,Tdap,and Td Vac cines (8 - Td or Tdap) DTaP,Tdap,and Td Vaccines (8 - Td or Tdap) [facility] Start: 09-04-2024 DTaP/Tdap/Td Vaccine s (8 - Td or Tdap) DTaP/Tdap/Td Vaccines (8 - Td or Tdap) [facility] Start: 09-04-2024 [facility] Start: 09-04-2024 Urine microalbumin profile DTaP,Tdap,Td Vaccine (8 - Td or Tdap) [facility] Start: 08-24-2024 [facility] Start: 08-17-2024 End: 08-17-2024 Patient encounter procedure 08/17/2024 10:30 AM EDT Office Visit [facility] [address] [address] Alexandru Ramirez Jr., DPM [address] [place] [address] [facility] Start: 08-03-2024 End: 08-03-2024 Patient encounter procedure 08/03/2024 3:15 PM EDT Office Visit [facility] [address] [place] [address] Timmy Mariano MD [address] [place] [address] [facility] 2 Start: 08-03-2024 End: 08-03-2025 Complete blood count with white cell differential, automated CBC, EDIF, PLATELET Lab Routine Chronic kidney disease, stage II (mild) Expected: 08/03/2024, Expires: 08/03/2025 [facility] Comment on above: Expected: 08/03/2024 , Expires: 08/03/2025 Start: 08-03-2024 End: 08-03-2025 Magnesium [Mass/volume] in Serum or Plasma MAGNESIUM Lab Routine Chronic kidney disease, stage II (mild) Expected: 08/03/2024, Expires: 08/03/2025 [facility] Comment on above: Expected: 08/03/2024 , Expires: 08/03/2025 Start: 08-03-2024 End: 08-03-2025 MICROALBUMIN/CREATININE RATIO MICROALBUMIN/CREATININ E RATIO Fluids Routine Chronic kidney disease, stage II (mild) Expected: 08/03/2024, Expires: 08/03/2025 [facility] Comment on above: Expected: 08/03/2024 , Expires: 08/03/2025 Start: 08-03-2024 End: 08-03-2025 RENAL FUNCTION PANEL RENAL FUNCTION PANEL Lab Routine Chronic kidney disease, stage II (mild) Expected: 08/03/2024, Expires: 08/03/2025 [facility] Comment on above: Expected: 08/03/2024 , Expires: 08/03/2025 Start: 08-03-2024 End: 08-03-2025 Sodium [Moles/volume] in Urine SODIUM, RANDOM URINE Fluids Routine Chronic kidney disease, stage II (mild) Expected: 08/03/2024, Expires: 08/03/2025 [facility] Comment on above: Expected: 08/03/2024 , Expires: 08/03/2025 Start: 08-03-2024 End: 08-03-2025 Urinalysis, reagent strip without microscopy URINALYSIS, MACRO Fluids Routine Chronic kidney disease, stage II (mild) Expected: 08/03/2024, Expires: 08/03/2025 [facility] Comment on above: Expected: 08/03/2024 , Expires: 08/03/2025 Start: 08-03-2024 End: 08-03-2025 URINE PROTEIN/CREA RATIO, RANDOM URINE PROTEIN/CREA RATIO, RANDOM Fluids Routine Chronic kidney disease, stage II (mild) Expected: 08/03/2024, Expires: 08/03/2025 [facility] Comment on above: Expected: 08/03/2024 , Expires: 08/03/2025 Start: 08-03-2024 End: 08-03-2025 US Kidney US RENAL RETROPERITONEAL Imaging Routine Chronic kidney disease, stage II (mild) Expected: 08/03/2024, Expires: 08/03/2025 [facility] Comment on above: Expected: 08/03/2024 , Expires: 08/03/2025 Start: 06-29-2024 End: 06-29-2024 Patient encounter procedure 06/29/2024 9:30 AM EDT Office Visit [facility] Medical Office Building [facility] [address] [place] [address] Mesha Garcia, PAVolodymyr [address] [place] [address] [facility] Building Start: 06-27-2024 [facility] Start: 06-27-2024 Urinalysis complete panel - Urine [facility] Start: 06-27-2024 Urine test [facility] Start: 06-27-2024 Complete blood count [facility] Start: 06-27-2024 Comprehensive metabo lic 2000 panel - Serum or Plasma [facility] Start: 06-27-2024 Triacylglycerol lipa se measurement [facility] Start: 06-22-2024 End: 06-22-2024 Patient encounter procedure 06/22/2024 1:20 PM EDT Office Visit [address] [address] Winsome Cuevas, CAR SWEEPER-[employer] MECHANIC [address] [place] [address] [facility] Start: 06-20-2024 Adolescent depressio n screening assessment Depression Screening [facility] Start: 06-20-2024 Hepatitis C screening Hepatitis C Sc reening [facility] Start: 06-20-2024 HIV screening HIV Screening [facility] Start: 06-09-2024 Creatinine measurement Serum Creatin ine [facility] Start: 06-09-2024 Potassium [Moles/vol ume] in Serum or Plasma POTASSIUM [facility] Start: 06-01-2024 End: 06-01-2024 Patient encounter procedure 06/01/2024 8:45 AM EDT Office Visit [facility] Medical Office Building [address] [place] [address] [address] [place] [address] Mesha Garcia PA-C [address] [place] [address] [place] [address] [facility] Building Start: 05-18-2024 End: 05-18-2025 MR Lumbar spine WO contrast MR lumbar spine wo IV contrast Imaging Routine Lumbar radiculopathy Expected: 05/18/2024, Expires: 05/18/2025 [facility] Service Area Work Phone: Comment on above: Expected: 05/18/2024 , Expires: 05/18/2025 Start: 05-04-2024 End: 05-04-2024 Patient encounter procedure 05/04/2024 2:15 PM EDT Office Visit [facility] [address] [place] [address] Alexandru Ramirez Jr., DPM [address] [place], [place] [id number] [facility] Start: 04-18-2024 Anes esoph thyrd lar ynx trach & lymph neck 1yr ANESTH NECK ORGAN 1YR/> [facility] Start: 04-18-2024 Laryngoscopy exc jesenia&/stripping cords/epiglott LARYNGOSCOPY W/EXC OF TUMOR [facility] Start: 04-18-2024 Ambulation without limitation [facility] Start: 04-18-2024 Elevation of head of bed [facility] Start: 04-18-[address] Patient discharge [facility] Start: 04-18-2024 Medical regimen orde rs management [facility] Start: 04-18-2024 Medication education [facility] Start: 04-18-2024 Procedure discontinued [facility] Start: 04-18-2024 Taking patient vital signs [facility] Start: 04-18-2024 Vital signs measurements [facility] Start: 04-06-2024 End: 04-06-2024 Patient encounter procedure 04/06/2024 3:00 PM EST Office Visit [address] [address] Winsome Cuevas, CAR SWEEPER-[employer] MECHANIC [address] [place] [address] [facility] Start: 03-25-2024 End: 03-25-2024 Patient encounter procedure 03/25/2024 1:20 PM EST Office Visit [address] [address] Winsome Cuevas, CAR SWEEPER[employer] MECHANIC [address] [place] [address] [facility] Start: 03-23-2024 End: 03-23-2024 Patient encounter procedure 03/23/2024 4:00 PM EST Office Visit [address] [address] Winsome Cuevas, CAR SWEEPER[employer]DECK MECHANIC [address] [place] [address] [facility] Start: 03-10-2024 [facility] Start: 03-09-2024 Creatinine measurement Serum Creatin ine [facility] Start: 02-25-2024 End: 02-25-2024 Patient encounter procedure 02/25/2024 8:15 AM EST Office Visit [facility] Medical Office Building [address] [place] [address] Mesha Garcia PA-C [address] [place] [place], [place] [id number] [facility] Start: 02-03-2024 End: 02-02-2025 SHARON MULTIPLEX SCRN WITH REFLEX SHARON MULTIPLEX SCRN WITH REFLEX Lab Routine Chronic kidney disease, stage II (mild) Expected: 02/03/2024, Expires: 02/02/2025 [facility] Comment on above: Expected: 02/03/2024 , Expires: 02/02/2025 Start: 02-03-2024 End: 02-02-2025 C-reactive protein C REACTIVE PROTEIN Lab Routine Chronic kidney disease, stage II (mild) Expected: 02/03/2024, Expires: 02/02/2025 [facility] Comment on above: Expected: 02/03/2024 , Expires: 02/02/2025 Start: 02-03-2024 End: 02-02-2025 Complete blood count with white cell differential, automated CBC, EDIF, PLATELET Lab Routine Chronic kidney disease, stage II (mild) Expected: 02/03/2024, Expires: 02/02/2025 [facility] Comment on above: Expected: 02/03/2024 , Expires: 02/02/2025 Start: 02-03-2024 End: 02-02-2025 Magnesium [Mass/volume] in Serum or Plasma MAGNESIUM Lab Routine Chronic kidney disease, stage II (mild) Expected: 02/03/2024, Expires: 02/02/2025 [place] [facility] Comment on above: Expected: 02/03/2024 , Expires: 02/02/2025 Start: 02-03-2024 End: 02-02-2025 MICROALBUMIN/CREATININE RATIO MICROALBUMIN/CREATININ E RATIO Fluids Routine Chronic kidney disease, stage II (mild) Expected: 02/03/2024, Expires: 02/02/2025 [facility] Comment on above: Expected: 02/03/2024 , Expires: 02/02/2025 Start: 02-03-2024 End: 02-02-2025 RENAL FUNCTION PANEL RENAL FUNCTION PANEL Lab Routine Chronic kidney disease, stage II (mild) Expected: 02/03/2024, Expires: 02/02/2025 [facility] Comment on above: Expected: 02/03/2024 , Expires: 02/02/2025 Start: 02-03-2024 End: 02-02-2025 SEDIMENTATION RATE, AUTOMATED SEDIMENTATION RATE, AUTOMATED Lab Routine Chronic kidney disease, stage II (mild) Expected: 02/03/2024, Expires: 02/02/2025 [facility] Comment on above: Expected: 02/03/2024 , Expires: 02/02/2025 Start: 02-03-2024 End: 02-02-2025 Sodium [Moles/volume] in Urine SODIUM, RANDOM URINE Fluids Routine Chronic kidney disease, stage II (mild) Expected: 02/03/2024, Expires: 02/02/2025 [facility] Comment on above: Expected: 02/03/2024 , Expires: 02/02/2025 Start: 02-03-2024 End: 02-02-2025 Urinalysis, reagent strip without microscopy URINALYSIS, MACRO Fluids Routine Chronic kidney disease, stage II (mild) Expected: 02/03/2024, Expires: 02/02/2025 [facility] Comment on above: Expected: 02/03/2024 , Expires: 02/02/2025 Start: 02-03-2024 End: 02-02-2025 URINE PROTEIN/CREA RATIO, RANDOM URINE PROTEIN/CREA RATIO, RANDOM Fluids Routine Chronic kidney disease, stage II (mild) Expected: 02/03/2024, Expires: 02/02/2025 [facility] Comment on above: Expected: 02/03/2024 , Expires: 02/02/2025 Start: 02-03-2024 End: 02-03-2024 Patient encounter procedure 02/03/2024 1:15 PM EST Office Visit [facility] Nephrology 2 [address] [place] [address] Timmy Mariano MD [address] [facility] [place] [address] [facility] Nephrology 2 Start: 01-30-2024 End: 01-30-2024 Patient encounter procedure 01/30/2024 2:00 PM EST Appointment [facility] Ultrasound [address] [place] [address] Winsome Cuevas, [employer]IC [address] [place] [address] [facility] Ultrasound Start: 01-27-2024 End: 01-26-2025 US Abdomen RUQ US ABDOMEN RUQ/LIVER/GB Imaging Routine Abdominal discomfort in right upper quadrant Expected: 01/27/2024, Expires: 01/26/2025 [facility] Comment on above: Expected: 01/27/2024 , Expires: 01/26/2025 Start: 12-19-2023 Diabetes mellitus screening Diabetes Screening [facility] Start: 12-07-2023 End: 12-07-2023 Patient encounter procedure 12/07/2023 1:00 PM EDT Office Visit [facility] Neurology [address] [facility] [place] [address] Lindsay Pearson MD [address] [facility] [place] [address] [facility] Neurology Start: 11-30-2023 End: 11-29-2024 FL pain management [place] pain management Imaging Routine Spondylosis of lumbosacral region without myelopathy or radiculopathy Expected: 11/30/2023 (Approximate), Expires: 11/29/2024 [facility] Service Area Work Phone: Comment on above: Expected: 11/30/2023 (Approximate), Expires: 11/29/2024 Start: 11-30-2023 End: 11-29-2024 Radiofrequency Ablation Radiofrequency Ablation Pain Management Routine Spondylosis of lumbosacral region without myelopathy or radiculopathy Expected: 11/30/2023, Expires: 11/29/2024 [facility] Work Phone: Comment on above: Expected: 11/30/2023 , Expires: 11/29/2024 Start: 2023 Screening for malign ant neoplasm of cervix Cervical Cancer Screening [facility] Start: 11-16-2023 End: 11-16-2023 Patient encounter procedure 11/16/2023 3:00 PM EDT Office Visit Obstetrics/Gynecology [address] [address] Jonmaria elenaMary Lou [address] [place] [address] 6 [facility] Obstetrics/Gynecolog y Comment on above: 6 [facility] POST OP Start: 11-04-2023 End: 11-03-2024 FL pain management FL pain management Imaging Routine Spondylosis of lumbosacral region without myelopathy or radiculopathy Expected: 11/04/2023, Expires: 11/03/2024 [facility] Work Phone: Comment on above: Expected: 11/04/2023 , Expires: 11/03/2024 Start: 11-04-2023 End: 11-03-2024 Medial Nerve Branch Block Medial Nerve Branch Block Pain Management Routine Spondylosis of lumbosacral region without myelopathy or radiculopathy Expected: 11/04/2023, Expires: 11/03/2024 [facility] Service Area Work Phone: Comment on above: Expected: 11/04/2023 , Expires: 11/03/2024 Start: 11-04-2023 End: 11-04-2023 Patient encounter procedure 11/04/2023 10:15 AM EDT Office Visit [facility] Medical Office Building [address] [place] [phone] Mesha Garcia PA-C [address] [place] [address] [facility] Start: 10-28-2023 End: 10-28-2023 Follow-up encounter 10/28/2023 3:45 PM EDT Follow-Up [facility] Physician [facility] Podiatry [address] [place] [phone] Alexandru Ramirez Jr., DPM [address] [place] [address] [facility] Physician [facility] Podiatry Start: 10-18-2023 COVID-19 Vaccine ( season) COVID-19 Vaccine ( season) [facility] Start: 10-18-2023 COVID-19 Vaccine () COVID-19 Vaccine () [facility] Start: 10-18-2023 Influenza vaccination [facility] Start: 10-16-2023 End: 10-16-2023 Patient encounter procedure 10/16/2023 1:20 PM EDT Office Visit [address] [address] Winsome Cuevas, [employer]IC [address] [place] [address] [facility] Start: 10-14-2023 End: 10-14-2023 Patient encounter procedure 10/14/2023 10:40 AM EDT Office Visit [address] [address] Winsome Cuevas, [employer]IC [address] [place] [address] [facility] Start: 10-08-2023 End: 10-07-2024 FL pain management FL pain management Imaging Routine Spondylosis of lumbosacral region without myelopathy or radiculopathy Expected: 10/08/2023, Expires: 10/07/2024 [facility] Work Phone: Comment on above: Expected: 10/08/2023 , Expires: 10/07/2024 Start: 10-08-2023 End: 10-07-2024 Medial Nerve Branch Block Medial Nerve Branch Block Pain Management Routine Spondylosis of lumbosacral region without myelopathy or radiculopathy Expected: 10/08/2023, Expires: 10/07/2024 [facility] Service Area Work Phone: Comment on above: Expected: 10/08/2023 , Expires: 10/07/2024 Start: 09-30-2023 End: 09-29-2024 Complete blood count with white cell differential, automated CBC, EDIF, PLATELET Lab Routine Chronic kidney disease, stage II (mild) Expected: 09/30/2023, Expires: 09/29/2024 [facility] Comment on above: Expected: 09/30/2023 , Expires: 09/29/2024 Start: 09-30-2023 End: 09-29-2024 Magnesium [Mass/volume] in Serum or Plasma MAGNESIUM Lab Routine Chronic kidney disease, stage II (mild) Expected: 09/30/2023, Expires: 09/29/2024 [facility] Comment on above: Expected: 09/30/2023 , Expires: 09/29/2024 Start: 09-30-2023 End: 09-29-2024 PTH INTACT PTH INTACT Lab Routine Chronic kidney disease, stage II (mild) Expected: 09/30/2023, Expires: 09/29/2024 [facility] Comment on above: Expected: 09/30/2023 , Expires: 09/29/2024 Start: 09-30-2023 End: 09-29-2024 RENAL FUNCTION PANEL RENAL FUNCTION PANEL Lab Routine Chronic kidney disease, stage II (mild) Expected: 09/30/2023, Expires: 09/29/2024 [facility] Comment on above: Expected: 09/30/2023 , Expires: 09/29/2024 Start: 09-30-2023 End: 09-29-2024 Sodium [Moles/volume] in Urine SODIUM, RANDOM URINE Fluids Routine Chronic kidney disease, stage II (mild) Expected: 09/30/2023, Expires: 09/29/2024 [facility] Comment on above: Expected: 09/30/2023 , Expires: 09/29/2024 Start: 09-30-2023 End: 09-29-2024 Urate [Mass/volume] in Serum or Plasma URIC ACID Lab Routine Chronic kidney disease, stage II (mild) Expected: 09/30/2023, Expires: 09/29/2024 [facility] Comment on above: Expected: 09/30/2023 , Expires: 09/29/2024 Start: 09-30-2023 End: 09-29-2024 Urinalysis, reagent strip without microscopy URINALYSIS, MACRO Fluids Routine Chronic kidney disease, stage II (mild) Expected: 09/30/2023, Expires: 09/29/2024 [facility] Comment on above: Expected: 09/30/2023 , Expires: 09/29/2024 Start: 09-30-2023 End: 09-29-2024 URINE PROTEIN/CREA RATIO, RANDOM URINE PROTEIN/CREA RATIO, RANDOM Fluids Routine Chronic kidney disease, stage II (mild) Expected: 09/30/2023, Expires: 09/29/2024 [facility] Comment on above: Expected: 09/30/2023 , Expires: 09/29/2024 Start: 09-30-2023 End: 09-29-2024 VITAMIN D (25-HYDROXY,TOTAL) VITAMIN D (25-HYDROXY,TOTAL) Lab Routine Chronic kidney disease, stage II (mild) Expected: 09/30/2023, Expires: 09/29/2024 [facility] Comment on above: Expected: 09/30/2023 , Expires: 09/29/2024 Start: 09-30-2023 End: 09-30-2023 Patient encounter procedure 09/30/2023 9:00 AM EDT Office Visit [facility] Nephrology 2 [address] [place] [address] Timmy Mariano MD [address] [place] [address] [facility] Nephrology 2 Start: 09-21-2023 End: 09-21-2023 Patient encounter procedure 09/21/2023 3:30 PM EDT Office Visit [facility] Physical Medicine & Rehabilitation [address] [facility] [place] [address] [place] [address] Moises Yanes, DO [address] [facility] [place] [address] [facility] Physical Medicine & Rehabilitation Start: 09-17-2023 End: 09-17-2023 Patient encounter procedure 09/17/2023 11:00 AM EDT Appointment [facility] MRI [address] [facility] [place] [address] Winsome Cuevas, [employer]CH[employer]IC [address] [place] [address] [facility] MRI Start: 09-10-2023 End: 09-10-2023 Patient encounter procedure 09/10/2023 10:00 AM EDT Office Visit [facility] Nephrology [address] [place] [address] [place] [address] Timmy Mariano MD [address] [place] [address], [place] [address] [facility] Nephrology 2 Start: 09-08-2023 End: 09-08-2023 Patient encounter procedure 09/08/2023 8:00 AM EDT Office Visit [facility] Neurology [address] [place] [address] Lindsay Pearson MD [address] [place] [address] [facility] Neurology Start: 09-07-2023 End: 09-07-2023 Patient encounter procedure 09/07/2023 10:00 AM EDT Office Visit [facility] Family Medicine [address] [place] [address], [place] [address] Winsome Cuevas, [employer]CH[employer]IC [address] [place] [address] [facility] Family Medicine Start: 09-03-2023 End: 09-03-2023 Patient encounter procedure 09/03/2023 11:00 AM EDT Office Visit [facility] Physical Medicine & Rehabilitation [address] [facility] [place] [address] [place] [address] Moises Yanes, DO [address] [place] [address] [facility] Physical Medicine & Rehabilitation Start: 08-31-2023 End: 08-31-2023 Patient encounter procedure 08/31/2023 9:30 AM EDT Office Visit OB/Gynecology [address] [place] [address] Wilfrid Champion APRN.CN [address] [place] [place] [address] Follow up ( mammo/US) on 08/24 OB/Gynecology Comment on above: Follow up ( mammo/US ) on 08/24 Start: 08-29-2023 End: 08-29-2023 Patient encounter procedure 08/29/2023 11:00 AM EDT Appointment [facility] MRI [address] [facility] [place] [phone] Winsome Cuevas, [employer]IC [address] [place] [place] [address] [facility] MRI Start: 08-25-2023 End: 08-25-2023 Patient encounter procedure Mammogram Comment on above: Breast lump on left side at 1 o'clock position [N63.21]; Breast pain in female [N64.4] Start: 08-10-2023 End: 08-09-2024 MR Lumbar spine WO contrast MRI SPINE LUMBAR WITHOUT CONTRAST Imaging Routine Acute left-sided low back pain with left-sided sciatica Expected: 08/10/2023, Expires: 08/09/2024 [facility] Comment on above: Expected: 08/10/2023 , Expires: 08/09/2024 Start: 07-22-2023 End: 07-22-2023 Patient encounter procedure 07/22/2023 10:20 AM EDT Office Visit [facility] Medicine [address] [place] [phone] Winsome Cuevas, [employer]IC [address] [place] [phone] [facility] Medicine Start: 06-29-2023 End: 06-29-2023 Patient encounter procedure [facility] Neurology Start: 06-10-2023 End: 06-09-2024 Complete blood count with white cell differential, automated CBC, EDIF, PLATELET Lab Routine Acute right flank pain Expected: 06/10/2023, Expires: 06/09/2024 [facility] Comment on above: Expected: 06/10/2023 , Expires: 06/09/2024 Start: 06-10-2023 End: 06-09-2024 Magnesium [Mass/volume] in Serum or Plasma MAGNESIUM Lab Routine Acute right flank pain Expected: 06/10/2023, Expires: 06/09/2024 [facility] Comment on above: Expected: 06/10/2023 , Expires: 06/09/2024 Start: 06-10-2023 End: 06-09-2024 MICROALBUMIN/CREATININE RATIO MICROALBUMIN/CREATININ E RATIO Fluids Routine Acute right flank pain Expected: 06/10/2023, Expires: 06/09/2024 [facility] Comment on above: Expected: 06/10/2023 , Expires: 06/09/2024 Start: 06-10-2023 End: 06-09-2024 RENAL FUNCTION PANEL RENAL FUNCTION PANEL Lab Routine Acute right flank pain Expected: 06/10/2023, Expires: 06/09/2024 [facility] Comment on above: Expected: 06/10/2023 , Expires: 06/09/2024 Start: 06-10-2023 End: 06-09-2024 Sodium [Moles/volume] in Urine SODIUM, RANDOM URINE Fluids Routine Acute right flank pain Expected: 06/10/2023, Expires: 06/09/2024 [facility] Comment on above: Expected: 06/10/2023 , Expires: 06/09/2024 Start: 06-10-2023 End: 06-09-2024 Urinalysis, reagent strip without microscopy URINALYSIS, MACRO Fluids Routine Acute right flank pain Expected: 06/10/2023, Expires: 06/09/2024 [facility] Comment on above: Expected: 06/10/2023 , Expires: 06/09/2024 Start: 06-10-2023 End: 06-09-2024 URINE PROTEIN/CREA RATIO, RANDOM URINE PROTEIN/CREA RATIO, RANDOM Fluids Routine Acute right flank pain Expected: 06/10/2023, Expires: 06/09/2024 [facility] Comment on above: Expected: 06/10/2023 , Expires: 06/09/2024 Start: 04-08-2023 End: 04-08-2023 Patient encounter procedure 04/08/2023 3:40 PM EST Office Visit [facility] [address] [place] [address] Winsome Cuevas, [employer]IC [address] [place] [address] [facility] Start: 03-12-2023 End: 03-12-2023 Patient encounter procedure 03/12/2023 1:15 PM EST Office Visit [facility] Nephrology 2 [address] [facility] [place] [address] Timmy Mariano MD [address] [place] [address] [facility] Nephrology 2 Start: 02-16-2023 Behavioral Health Screening Behavioral Health Screening [facility] Start: 02-16-2023 Depression Assessment Depression Ass essment [facility] Start: 01-28-2023 End: 01-28-2023 Patient encounter procedure 01/28/2023 10:00 AM EST Office Visit [facility] Nephrology 2 [address] [facility] [place] [address] Timmy Mariano MD [address] [place] [address] [facility] Nephrology 2 Start: 12-31-2022 End: 12-31-2022 Patient encounter procedure 12/31/2022 10:20 AM EST Office Visit [facility] [address] [place] [address] [place] Winsome Rosa, [employer]IC [address] [place] [address] [facility] Start: 12-15-2022 [facility] Start: 11-27-2022 Anesthesia incomplete/missed ANESTH INC/MISSED AB PROC [facility] Start: 11-27-2022 Tx missed f irst trimester surgical CARE OF MISCARRIAGE [facility] Start: 11-27-2022 Patient discharge [facility] Start: 11-27-2022 Ambulation without limitation [facility] Start: 11-27-2022 Medical regimen orde rs management [facility] Start: 11-27-2022 Medication education [facility] Start: 11-27-2022 Procedure discontinued [facility] Start: 11-27-2022 Taking patient vital signs [facility] Start: 11-27-2022 Vital signs measurements [facility] Start: 11-27-2022 End: 11-27-2022 [facility] Start: 11-13-2022 End: 11-14-2023 Complete blood count with white cell differential, automated CBC, EDIF, PLATELET Lab Routine Hypokalemia Expected: 11/13/2022, Expires: 11/14/2023 [facility] Comment on above: Expected: 11/13/2022 , Expires: 11/14/2023 Start: 11-13-2022 End: 11-14-2023 Magnesium [Mass/volume] in Serum or Plasma MAGNESIUM Lab Routine Hypokalemia Expected: 11/13/2022, Expires: 11/14/2023 [facility] Comment on above: Expected: 11/13/2022 , Expires: 11/14/2023 Start: 11-13-2022 End: 11-14-2023 RENAL FUNCTION PANEL RENAL FUNCTION PANEL Lab Routine Hypokalemia Expected: 11/13/2022, Expires: 11/14/2023 [facility] Comment on above: Expected: 11/13/2022 , Expires: 11/14/2023 Start: 11-13-2022 End: 11-14-2023 Sodium [Moles/volume] in Urine SODIUM, RANDOM URINE Fluids Routine Hypokalemia Expected: 11/13/2022, Expires: 11/14/2023 [facility] Comment on above: Expected: 11/13/2022 , Expires: 11/14/2023 Start: 11-13-2022 End: 11-14-2023 Urinalysis, reagent strip without microscopy URINALYSIS, MACRO Fluids Routine Hypokalemia Expected: 11/13/2022, Expires: 11/14/2023 [facility] Comment on above: Expected: 11/13/2022 , Expires: 11/14/2023 Start: 11-13-2022 End: 11-14-2023 URINE PROTEIN/CREA RATIO, RANDOM URINE PROTEIN/CREA RATIO, RANDOM Fluids Routine Hypokalemia Expected: 11/13/2022, Expires: 11/14/2023 [facility] Comment on above: Expected: 11/13/2022 , Expires: 11/14/2023 Start: 11-10-2022 End: 11-11-2023 OBSTETRIC ULTRASOUND WHI OBSTETRIC ULTRASOUND WHI Anc Imaging Routine Spotting in early Expected: 11/10/2022, Expires: 11/11/2023 [facility] Work Phone: Comment on above: Expected: 11/10/2022 , Expires: 11/11/2023 Start: 11-03-2022 End: 11-03-2022 Patient encounter procedure 11/03/2022 3:40 PM EDT Office Visit [facility] [address] [place] [phone] Winsome Cuevas, [employer]IC [address] [place] [phone] [facility] Start: 10-17-2022 COVID-19 VACCINE ( season) COVID-19 VACCINE () [facility] Start: 10-17-2022 Influenza vaccination [facility] Start: 08-25-2022 End: 08-25-2022 Patient encounter procedure 08/25/2022 Office Visit Neurology Lindsay Pearson MD [address] [place] [address] [facility] Neurology Start: 07-30-2022 End: 07-30-2022 Patient encounter procedure 07/30/2022 Office Visit Nephrology Timmy Mariano MD [address] [place] [address] [facility] Nephrology 2 Start: 07-28-2022 End: 07-28-2022 Patient encounter procedure 07/28/2022 Office Visit Family Medicine Winsome Cuevas, [employer]CH[employer]IC [address] [place] [address] [facility] Medicine Start: 07-02-2022 End: 07-02-2022 Patient encounter procedure 07/02/2022 Office Visit Nephrology Timmy Mariano MD [address] [place] [address] [facility] Nephrology 2 Start: 06-11-2022 End: 06-11-2022 Patient encounter procedure 06/11/2022 Office Visit Nephrology Timmy Mariano MD [address] [place] [address] [facility] Nephrology 2 Start: 03-17-2022 Introduction of urin jermain catheter [facility] Start: 03-17-2022 Patient discharge [facility] Start: 03-17-2022 Ambulation therapy management [facility] Start: 03-17-2022 Continuous pulse oximetry [facility] Start: 03-17-2022 Elevation of head of bed [facility] Start: 03-17-2022 Incentive spirometry [facility] Start: 03-17-2022 Measuring intake and output [facility] Start: 03-17-2022 Notification of physician [facility] Start: 03-17-2022 End: 03-17-2022 Oxygen therapy [facility] Start: 03-17-2022 Patient education [facility] Start: 03-17-2022 Taking patient vital signs [facility] Start: 03-17-2022 Wound care [facility] Start: 03-17-2022 [facility] Start: 03-05-2022 End: 03-05-2022 Telemedicine consultation with patient 03/05/2022 Telemedicine Family Medicine Winsome Cuevas, [employer]CH[employer]IC [address] [place] [address] [facility] Start: 02-24-2022 [facility] Work Phone: Start: 02-16-2022 Depression Assessment Depression Ass [facility] Start: 12-11-2021 End: 12-11-2022 Complete blood count with white cell differential, automated CBC, EDIF, PLATELET Lab Routine Kidney stone Expected: 12/11/2021, Expires: 12/11/2022 [facility] Comment on above: Expected: 12/11/2021 , Expires: 12/11/2022 Start: 12-11-2021 End: 12-11-2022 Magnesium [Mass/volume] in Serum or Plasma MAGNESIUM Lab Routine Kidney stone Expected: 12/11/2021, Expires: 12/11/2022 [facility] Comment on above: Expected: 12/11/2021 , Expires: 12/11/2022 Start: 12-11-2021 End: 12-11-2022 RENAL FUNCTION PANEL RENAL FUNCTION PANEL Lab Routine Kidney stone Expected: 12/11/2021, Expires: 12/11/2022 [facility] Comment on above: Expected: 12/11/2021 , Expires: 12/11/2022 Start: 12-11-2021 End: 12-11-2022 Sodium [Moles/volume] in Urine SODIUM, RANDOM URINE Fluids Routine Kidney stone Expected: 12/11/2021, Expires: 12/11/2022 [facility] Comment on above: Expected: 12/11/2021 , Expires: 12/11/2022 Start: 12-11-2021 End: 12-11-2022 Urinalysis, reagent strip without microscopy URINALYSIS, MACRO Fluids Routine Kidney stone Expected: 12/11/2021, Expires: 12/11/2022 [facility] Comment on above: Expected: 12/11/2021 , Expires: 12/11/2022 Start: 12-11-2021 End: 12-11-2022 URINE PROTEIN/CREA RATIO, RANDOM URINE PROTEIN/CREA RATIO, RANDOM Fluids Routine Kidney stone Expected: 12/11/2021, Expires: 12/11/2022 [facility] Comment on above: Expected: 12/11/2021 , Expires: 12/11/2022 Start: 12-11-2021 End: 12-11-2021 Patient encounter procedure 12/11/2021 Office Visit Nephrology Timmy Mariano MD [address] [place] [address] [facility] Nephrology 2 Start: 12-02-2021 End: 12-02-2021 Patient encounter procedure 12/02/2021 Office Visit Family Medicine Winsome Cuevas, [employer]CH[employer]IC [address] [place] [phone] [facility] Start: 10-28-2021 End: 10-28-2021 Patient encounter procedure 10/28/2021 Office Visit Family Medicine Winsome Cuevas, [employer] [address] [place] [phone] [facility] Start: 10-23-2021 Egd transoral biopsy single/multiple EGD BIOPSY SINGLE/MULTIPLE [facility] Work Phone: Start: 10-23-2021 Patient discharge [facility] Work Phone: Start: 10-17-2021 Influenza vaccination [facility] Start: 10-07-2021 End: 10-07-2022 [facility] Comment on above: Expected: 10/07/2021 , Expires: 10/07/2022 Start: 10-07-2021 End: 10-07-2022 NM Liver and Biliary ducts and Gallbladder Views W sincalide and W radionuclide IV NUC HEPATOBILIARY WITH EJECTION FRACTION Imaging Routine Nausea and vomiting, unspecified vomiting type Expected: 10/07/2021, Expires: 10/07/2022 [facility] Comment on above: Expected: 10/07/2021 , Expires: 10/07/2022 Start: 06-12-2021 End: 06-12-2021 Patient encounter procedure 06/12/2021 Office Visit Nephrology Timmy Mariano MD [address], [place] [id number] [facility] Nephrology 2 Start: 06-07-2021 Patient discharge [facility] Work Phone: Start: 06-06-2021 End: 06-07-2021 [facility] Work Phone: Start: 06-06-2021 Ambulation without limitation [facility] Work Phone: Start: 06-06-2021 Assessment of risk o f venous thromboembolism [facility] Work Phone: Start: 06-06-2021 Catheterization of vein [facility] Work Phone: Start: 06-06-2021 Insertion of cathete r into peripheral vein [facility] Work Phone: Start: 06-06-2021 Measuring intake and output [facility] Work Phone: Start: 06-06-2021 Providing care accor ding to standard [facility] Work Phone: Start: 06-06-2021 Following clinical pathway protocol [facility] Work Phone: Start: 06-06-2021 Admission procedure [facility] Work Phone: Start: 06-06-2021 Patient referral to dietitian [facility] Work Phone: Start: 06-06-2021 [facility] Work Phone: Start: 12-06-2020 End: 12-06-2020 Patient encounter procedure 12/06/2020 Office Visit Nephrology Timmy Mariano MD [address] [place] [address] [facility] Nephrology 2 Start: 11-19-2020 End: 11-19-2020 Patient encounter procedure 11/19/2020 Office Visit Pulmonary Disease Dale Sofia MD [address] [place] [address] [facility] Pulmonary [facility] Start: 11-16-2020 End: 11-16-2020 Patient encounter procedure 11/16/2020 Office Visit Pulmonary Disease Dale Sofia MD [address] [place] [address] [facility] Pulmonary [facility] Start: 10-17-2020 Influenza vaccination [facility] Start: 10-17-2020 End: 10-17-2020 Patient encounter procedure 10/17/2020 Office Visit Family Medicine Winsome Cuevas, [employer] [address] [place] [phone] [facility] Start: 09-29-2020 End: 09-29-2020 Patient encounter procedure 09/29/2020 Appointment Ultrasound Winsome Cuevas [employer] [address] [place] [phone] [facility] Ultrasound Start: 09-10-2020 End: 09-10-2021 6-minute walk test EXERCISE-6 MIN. WALK PFT Routine Mild intermittent asthma without complication Expected: 09/10/2020, Expires: 09/10/2021 [facility] Work Phone: Comment on above: Expected: 09/10/2020 , Expires: 09/10/2021 Start: 09-10-2020 End: 09-10-2021 ALLERGEN PROFILE, MOLD ALLERGEN PROFILE, MOLD Lab Routine Mild intermittent asthma without complication Expected: 09/10/2020, Expires: 09/10/2021 [facility] Comment on above: Expected: 09/10/2020 , Expires: 09/10/2021 Start: 09-10-2020 End: 09-10-2021 ALPHA 1 ANTITRYPSIN ALPHA 1 ANTITRYPSIN Lab Routine Mild intermittent asthma without complication Expected: 09/10/2020, Expires: 09/10/2021 [facility] Comment on above: Expected: 09/10/2020 , Expires: 09/10/2021 Start: 09-10-2020 End: 09-10-2021 Complete blood count with white cell differential, automated CBC, EDIF, PLATELET Lab Routine Mild intermittent asthma without complication Expected: 09/10/2020, Expires: 09/10/2021 [facility] Comment on above: Expected: 09/10/2020 , Expires: 09/10/2021 Start: 09-10-2020 End: 09-10-2021 IMMUNOGLOBULIN IGE IMMUNOGLOBULIN IGE Lab Routine Mild intermittent asthma without complication Expected: 09/10/2020, Expires: 09/10/2021 [facility] Comment on above: Expected: 09/10/2020 , Expires: 09/10/2021 Start: 09-10-2020 End: 09-10-2021 MINI-PANEL ALLERGEN PROFILE MINI-PANEL ALLERGEN PROFILE Lab Routine Mild intermittent asthma without complication Expected: 09/10/2020, Expires: 09/10/2021 [facility] Comment on above: Expected: 09/10/2020 , Expires: 09/10/2021 Start: 09-10-2020 End: 09-10-2021 NOVEL CORONAVIRUS NOVEL CORONAVIRUS Microbiology STAT Screening for viral disease Expected: 09/10/2020 (Approximate), Expires: 09/10/2021 [facility] Comment on above: Expected: 09/10/2020 (Approximate), Expires: 09/10/2021 Start: 09-10-2020 End: 09-10-2021 Transthoracic echocardiography ECHOCARDIOGRAM Echocardiography Routine Secondary pulmonary arterial hypertension Expected: 09/10/2020 (Approximate), Expires: 09/10/2021 [facility] Comment on above: Expected: 09/10/2020 (Approximate), Expires: 09/10/2021 Start: 09-10-2020 End: 09-10-2021 VITAMIN D (25-HYDROXY,TOTAL) VITAMIN D (25-HYDROXY,TOTAL) Lab Routine Screening for viral disease Expected: 09/10/2020, Expires: 09/10/2021 [facility] Comment on above: Expected: 09/10/2020 , Expires: 09/10/2021 Start: 01-07-2020 Pneumococcal Vaccine : Pediatrics (0 to 5 Years) and At-Risk Patients (6 to 64 Years) (2 of 2 - PCV) Pneumococcal Vaccine: Pediatrics (0 to 5 Years) and At-Risk Patients (6 to 64 Years) (2 of 2 - PCV) [facility] Start: 01-07-2020 Pneumococcal Vaccine : Pediatrics and At-Risk Adult Patients (2 of 2 - PCV) Pneumococcal Vaccine: Pediatrics and At-Risk Adult Patients (2 of 2 - PCV) [facility] Start: 04-26-2019 Depression screening using PHQ-9 (Patient Health Questionnaire 9) score [facility] Start: 10-17-2017 Influenza vaccinatio n given SEQUENTIAL INFLUENZA VACCINE (#1) [facility] Start: 2016 HPV Testing HPV Testing [facility] Start: 2016 Screening for malign ant neoplasm of cervix [facility] Start: 10-17-2016 Influenza vaccination SEQUENTI AL INFLUENZA VACCINE (#1) [facility] Start: 01-09-2016 Pap Testing Pap Testing [facility] Start: 2013 HPV VACCINE (1 - 3-d ose SCDM series) HPV VACCINE (1 - 3-dose SCDM series) [facility] Start: 2013 HPV Vaccines (1 - 3- dose standard series) HPV Vaccines (1 - 3-dose standard series) [facility] Start: 11-26-2007 Screening for malign ant neoplasm of cervix [facility] Start: 2005 DTaP/Tdap/Td vaccine (1 - Tdap) DTaP/Tdap/Td vaccine (1 - Tdap) [facility] Start: 2005 PNEUMOCOCCAL VACCINE SERIES (1 of 2 - PCV) PNEUMOCOCCAL VACCINE SERIES (1 of 2 - PCV) [facility] Start: 2005 Pneumococcal Vaccine : Ped or At-Risk (1 of 2 - PCV) Pneumococcal Vaccine: Ped or At-Risk (1 of 2 - PCV) [facility] Start: 2005 Pneumococcal Vaccine : Pediatrics (0 to 5 Years) and At-Risk Patients (6 to 64 Years) (1 of 2 - PCV) Pneumococcal Vaccine: Pediatrics (0 to 5 Years) and At-Risk Patients (6 to 64 Years) (1 of 2 - PCV) [facility] Start: 2005 Third diphtheria, te tanus and acellular pertussis (DTaP) vaccination TDAP (ADULT) [facility] Start: 2005 Urine microalbumin profile DTaP,Tdap,Td Vaccine (1 - Tdap) [facility] Start: 2005 Urine screening for protein CKD: Urine Protein Screening [facility] Start: 2004 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 Annual PCP Team Chronic Disease Visit [facility] Start: 2004 Diabetes mellitus screening Diabetes Screening [facility] Start: 2004 Hepatitis C screening Hepatitis C [facility] Start: 2004 Hepatitis C Screening Hepatitis C [facility] Start: 2004 HIV Screening HIV Screening [facility] Start: 2004 HIV screening HIV Screening [facility] Start: 2001 HIV screening [facility] Start: 01-20-2000 Hepatitis B vaccination HEP B VACCINE (3 of 3 - 3-dose series) [facility] Start: 01-20-2000 Hepatitis B Vaccine (3 of 3 - 3-dose series) Hepatitis B Vaccine (3 of 3 - 3-dose series) [facility] Start: 01-20-2000 Hepatitis B Vaccines (3 of 3 - 3-dose series) Hepatitis B Vaccines (3 of 3 - 3-dose series) [facility] Start: 11-26-1999 Varicella vaccination Varicell a Vaccines (1 of 2 - 13+ 2-dose series) [facility] Start: 10-28-1999 Varicella vaccination Varicell a Vaccines (1 of 2 - 2-dose childhood series) [facility] Start: 1998 COVID-19 Vaccine (1) COVID-19 Vaccin e (1) [facility] Start: 1998 Depression screening using PHQ-9 (Patient Health Questionnaire 9) score Depression Screening (PHQ9) [facility] Start: 1996 Microalbumin measure ment, urine, quantitative Urine Microalbumin [facility] Start: 1996 Urine screening for protein [facility] Start: 1992 PNEUMOCOCCAL VACCINE SERIES (1 of 2 - PCV) PNEUMOCOCCAL VACCINE SERIES (1 of 2 - PCV) [facility] Start: 1992 Pneumococcal Vaccine : Ped or At-Risk (1 of 2 - PCV) Pneumococcal Vaccine: Ped or At-Risk (1 of 2 - PCV) [facility] Start: 1992 Pneumococcal Vaccine : Ped or At-Risk (1 of 4 - PCV13) Pneumococcal Vaccine: Ped or At-Risk (1 of 4 - PCV13) [facility] Start: 11-26-1991 COVID-19 VACCINE (#1) COVID-19 VACCI NE (#1) [facility] Start: 11-26-1991 COVID-19 Vaccine (1) COVID-19 Vaccin e (1) [facility] Start: 1989 History and physical examination, annual for health maintenance Wellness Visit [facility] Start: 11-26-1987 Varicella vaccine (1 of 2 - 2-dose childhood series) Varicella vaccine (1 of 2 - 2-dose childhood series) [facility] Start: 05-27-1987 COVID-19 VACCINE (#1) COVID-19 VACCI NE (#1) [facility] Start: 1986 Hepatitis B Vaccine (1 of 3 - 3-dose series) Hepatitis B Vaccine (1 of 3 - 3-dose series) [facility] Start: 1986 Hepatitis C screening Hepatitis C sc reen [facility] Start: 1986 HIV screening HIV Screening [facility] Start: 1986 Lipid panel Lipid Panel [facility] Start: 1986 Screening for malign ant neoplasm of cervix [facility] Start: 1986 Tetanus vaccination TETANUS EVERY 10 YR [facility] Start: 1986 Yearly Adult Physical Yearly Adult P hysical [facility] Bacteria identified in Urine by Culture Urine Culture [facility] Work Phone: Bilirubin measuremen t, urine [facility] End: 12-11-2023 Blood type and Indirect antibody screen panel - Blood Type And Screen Lab Timed As needed (Lab) until discontinued starting 12/11/2023 [facility] Work Phone: Comment on above: As needed (Lab) unti l discontinued starting 12/11/2023 End: 12-11-2023 Choriogonadotropin ( test) [Presence] in Urine POCT , urine Point of Care Testing Routine Once (Lab) for 1 Occurrences starting 12/11/2023 until 12/11/2023 [facility] Work Phone: Comment on above: Once (Lab) for 1 Occ urrences starting 12/11/2023 until 12/11/2023 End: 10-30-2023 Choriogonadotropin ( test) [Presence] in Urine POCT , urine Point of Care Testing Routine Once (Lab) for 1 Occurrences starting 10/30/2023 until 10/30/2023 [facility] Work Phone: Comment on above: Once (Lab) for 1 Occ urrences starting 10/30/2023 until 10/30/2023 Cortisol [Mass/volum e] in Serum or Plasma [facility] Work Phone: Cortisol [Mass/volum e] in Serum or Plasma [facility] End: 06-16-2024 CT Lumbar spine [facility] Work Phone: Comment on above: Once for 1 Occurrenc es starting 06/16/2024 until 06/16/2024 H&P for surgery H&P FOR SURGERY Procedures Routine Pelvic pain in female Ordered: 01/28/2023 [facility] Work Phone: Comment on above: Ordered: 01/28/2023 Hemoglobin [Presence ] in Urine [facility] Measurement of keton es in urine using dipstick [facility] End: 09-01-2024 MG Breast - left Diagnostic for implant [employer] DI[employer]NOSTIC LEFT Radiology Routine Breast lump on left side at 1 o'clock position Breast pain in female 1 Occurrences starting 08/03/2023 until 09/01/2024 [facility] Work Phone: Comment on above: 1 Occurrences starti ng 08/03/2023 until 09/01/2024 Microscopic urinalysis [facility] End: 09-19-2024 MR Lumbar spine WO and W contrast IV [facility] Work Phone: Comment on above: Once for 1 Occurrenc es starting 09/19/2024 until 09/19/2024 End: 09-17-2023 MR Lumbar spine WO contrast [facility] Comment on above: 1 Occurrences starti ng 09/17/2023 until 09/17/2023 End: 05-20-2024 MR Lumbar spine WO contrast [facility] Work Phone: Comment on above: Once for 1 Occurrenc es starting 05/20/2024 until 05/20/2024 End: 02-27-2024 Mri pelvis w/o & w/contrast material MRI FEMALE PELVIS WO/W IVCON Radiology Routine Endometriosis 1 Occurrences starting 01/28/2023 until 02/27/2024 [facility] Work Phone: Comment on above: 1 Occurrences starti ng 01/28/2023 until 02/27/2024 Oxygen therapy [[facility] Data Set] Initiate Oxygen Therapy Protocol Respiratory Care Routine Daily until discontinued starting 01/05/2021 [facility] Work Phone: Comment on above: Daily until disconti nued starting 01/05/2021 PAP TEST PAP TEST Lab Rita higgins Screening for malignant neoplasm of cervix Special screening examination for human papillomavirus (HPV) 11/24/2022 1:08 PM EDT [facility] Work Phone: Patient Education [facility] Work Phone: Patient referral [facility] Work Phone: PFT COMPLETE PFT COMPLETE PFT Routine Mild intermittent asthma without complication Ordered: 09/10/2020 [facility] Comment on above: Ordered: 09/10/2020 pH of Urine [facility] REFER FOR ADMIT INTERVIEW REFER FOR ADMIT INTERVIEW Procedures Routine Pelvic pain in female Ordered: 01/28/2023 [facility] Work Phone: Comment on above: Ordered: 01/28/2023 Specific gravity of Urine [facility] Spirometry panel Incentive darby metry Respiratory Care Routine Every 2hr while awake until discontinued starting 01/05/2021 [facility] Work Phone: Comment on above: Every 2hr while awak e until discontinued starting 01/05/2021 End: 01-03-2021 STONE ANALYSIS [facility] Work Phone: Comment on above: One Time for 1 Occur rences starting 01/03/2021 until 01/03/2021 End: 01-05-2021 SURGICAL PATHOLOGY SURGICAL PATHOLOGY Lab Routine One Time for 1 Occurrences starting 01/05/2021 until 01/05/2021 [employer] Work Phone: Comment on above: One Time for 1 Occur rences starting 01/05/2021 until 01/05/2021 T4 free measurement [facility] Work Phone: T4 free measurement [facility] Testosterone Free [Mass/volume] in Serum or Plasma [facility] Work Phone: Testosterone Free [Mass/volume] in Serum or Plasma [facility] Testosterone measurement [facility] Work Phone: Testosterone measurement [facility] Thyroid stimulating hormone measurement [facility] Work Phone: Thyroid stimulating hormone measurement [facility] Thyroperoxidase Ab [Units/volume] in Serum or Plasma [facility] Work Phone: Thyroperoxidase Ab [Units/volume] in Serum or Plasma [facility] Thyroperoxidase Ab [Units/volume] in Serum or Plasma [facility] Urinalysis, blood, qualitative [facility] Urine dipstick for glucose [facility] Urine dipstick for leukocyte esterase [facility] Urine dipstick for nitrite [facility] Urine dipstick for protein [facility] Urine examination [facility] Urine microscopy: epithelial cells [facility] Urine Microscopy: wh ite cells [facility] Urobilinogen [Presen ce] in Urine [facility] End: 01-30-2024 US Abdomen RUQ [facility] Comment on above: 1 Occurrences starti ng 01/30/2024 until 01/30/2024 End: 09-01-2024 US Breast - left limited US BREAST LTD LEFT Radiology Routine Breast lump on left side at 1 o'clock position Breast pain in female 1 Occurrences starting 08/03/2023 until 09/01/2024 [facility] Comment on above: 1 Occurrences starti ng 08/03/2023 until 09/01/2024 End: 08-16-2024 US Kidney [facility] Comment on above: 1 Occurrences starti ng 08/16/2024 until 08/16/2024 End: 09-29-2020 US scan of neck [facility] Work Phone: Comment on above: 1 Occurrences starti ng 09/29/2020 until 09/29/2020 Vitamin D, 25-hydrox y measurement [facility] Work Phone: Vitamin D, 25-hydrox y measurement [facility] End: 08-04-2023 XR Lumbar spine 2 or 3 Views [facility] Work Phone: Comment on above: Once for 1 Occurrenc es starting 08/04/2023 until 08/04/2023 End: 08-04-2023 XR Pelvis 1 or 2 Views [facility] Work Phone: Comment on above: Once for 1 Occurrenc es starting 08/04/2023 until 08/04/2023 [facility] NEGATED: Highlighted row has been ruled out! Planned Goals not documented [facility] Work Phone: Immunizations Immunization Date Immunization Notes Care Provider [facility] 01-05-2021 diphtheria, tetanus toxoids and acellular pertussis vaccine, unspecified formulation John Bauer MD Work Phone: [facility] Work Phone: 01-05-2021 measles, mumps and rubella virus vaccine John Bauer MD Work Phone: [facility] Work Phone: 09-04-2014 tetanus and diphther ia toxoids, adsorbed, preservative free, for adult use (2 Lf of tetanus toxoid and 2 Lf of diphtheria toxoid) Dale Valadez MD Work Phone: [facility] 12-23-2010 tetanus toxoid, redu justine diphtheria toxoid, and acellular pertussis vaccine, adsorbed Radha Santiago APRN.[facility] Work Phone: [facility] Work Phone: 11-11-1999 hepatitis B vaccine, pediatric or pediatric/adolescent dosage Radha Santiago APRN.[facility] Work Phone: [facility] Work Phone: 09-30-1999 hepatitis B vaccine, pediatric or pediatric/adolescent dosage Radha Santiago CAR SWEEPER.[facility] Work Phone: [facility] Work Phone: 09-30-1999 measles, mumps and rubella virus vaccine Radha Santiago CAR SWEEPER.[facility] Work Phone: [facility] Work Phone: 09-19-1992 diphtheria, tetanus toxoids and acellular pertussis vaccine, unspecified formulation Radha Santiago CAR SWEEPER.[facility] Work Phone: [facility] Work Phone: 09-19-1992 poliovirus vaccine, unspecified formulation Radha Santiago CAR SWEEPER.[facility] Work Phone: [facility] Work Phone: 05-06-1989 diphtheria, tetanus toxoids and acellular pertussis vaccine, unspecified formulation Radha Santiago CAR SWEEPER.[facility] Work Phone: [facility] Work Phone: 05-06-1989 haemophilus influenz ae type b vaccine, conjugate unspecified formulation Radha Santiago APRN.[facility] Work Phone: [facility] Work Phone: 05-06-1989 poliovirus vaccine, unspecified formulation Radha Santiago APRN.[facility] Work Phone: [facility] Work Phone: 06-11-1988 measles, mumps and rubella virus vaccine Radha Santiago CAR SWEEPER.[facility] Work Phone: [facility] Work Phone: 07-25-1987 diphtheria, tetanus toxoids and pertussis vaccine Radha Santiago CAR SWEEPER.[facility] Work Phone: [facility] Work Phone: 05-16-1987 diphtheria, tetanus toxoids and pertussis vaccine Radha Santiago CAR SWEEPER.[facility] Work Phone: [facility] Work Phone: 05-16-1987 poliovirus vaccine, unspecified formulation Radha Santiago APRN.[facility] Work Phone: [facility] Work Phone: 02-14-1987 diphtheria, tetanus toxoids and pertussis vaccine Radha Santiago CAR SWEEPER.[facility] Work Phone: [facility] Work Phone: 02-14-1987 poliovirus vaccine, unspecified formulation Radha Santiago APRN.[facility] Work Phone: [facility] Work Phone: Payers Date Payer Category Payer Self-pay [id number] 2021 [facility] ([employer]) [id number] 2021 Blue Cross Blue Shie ld (Indemnity or Managed Care) - Out of State BCBS [place] [facility] [id number] 2021 Blue Cross Blue Shie ld Managed Care [id number] 2021 Man[facility] Care (unspecified) [facility] [id number] 2021 Unknown [id number] 2021 Unknown [id number] 2020 Unknown 2020 Unknown ANTHEM ANTHEM BLUE/PREF/HMO/PPO [id number] 2020-Present [phone] [address] [place] [address] [id number] 2020 Unknown [id number] 2014 Medicaid [facility] MEDICAID [employer] MEDICAID xxxxxxxxxxx 2014-Present xxxxxxxxxxx [id number] 2014 Medicaid [id number] 2014 Unknown [id number] 1986 Unknown [id number] 2.16.840.1.665684.3.579.2 .356 1986 Unknown [id number] 2.16840.1.274660.3.579.2 .356 1986 Unknown [id number] 2.16840.1.360252.3.579.2 .356 1986 Unknown [id number] 2.16840.1.133509.3.579.2 .356 1986 Unknown [id number] 2.16.840.1.048854.3.579.2 .900 1986 Unknown [id number] 2.16840.1.414034.3.579.2 .556 1986 Unknown [id number] 2.16.840.1.132599.3.579.2 .903 1986 Unknown [id number] 2.16.840.1.978869.3.579.2 .983 1986 Unknown [id number] 2.16.840.1.589796.3.579.2 .983 1986 Unknown [id number] 2.16.840.1.846490.3.579.2 .983 1986 Unknown [id number] 2.16.840.1.718189.3.579.2 .983 1986 Unknown [id number] 2.16.840.1.828443.3.579.2 .983 1986 Unknown [id number] 2.16.840.1.645163.3.579.2 .983 1986 Unknown [id number] 2.16.840.1.304268.3.579.2 .983 1986 Unknown [id number] 2.16.840.1.530377.3.579.2 .983 1986 Unknown [id number] 2.16.840.1.987089.3.579.2 .983 1986 Unknown [id number] 2.16.840.1.800328.3.579.2 .983 1986 Unknown [id number] 2.16.840.1.895043.3.579.2 .983 1986 Unknown [id number] 2.16.840.1.765704.3.579.2 .983 1986 Unknown [id number] 2.16.840.1.800091.3.579.2 .983 1986 Unknown [id number] 2.16.840.1.706535.3.579.2 .598 1985 Unknown [id number] 2.16.840.1.264599.3.579.2 .902 1985 Unknown [id number] 2.16.840.1.622131.3.579.2 .2 1985 Unknown [id number] 2.16.840.1.089429.3.579.2 .903 1986 Unknown [id number] 2.16.840.1.599854.3.579.2 .1986 Unknown [id number] 2.16.840.1.357283.3.579.2 .1986 Unknown [id number] 2.16.840.1.324865.3.579.2 .1986 Unknown [id number] 2.16.840.1.819742.3.579.2 .1313 1986 Unknown [id number] 2.16.840.1.349785.3.579.2 .1313 1986 Unknown [id number] 2.16.840.1.814760.3.579.2 .1142 1986 Unknown [id number] 2.16.840.1.201224.3.579.2 .1142 1986 Unknown [id number] 2.16.840.1.347859.3.579.2 .1313 1986 Unknown [id number] 2.16.840.1.407229.3.579.2 .1313 1986 Unknown [id number] 2.16.840.1.434208.3.579.2 .1313 1986 Unknown [id number] 2.16.840.1.685081.3.579.2 .1313 1986 Unknown [id number] 2.16.840.1.336077.3.579.2 .1313 1986 Unknown [id number] 2.16.840.1.064164.3.579.2 .1313 1986 Unknown [id number] 2.16.840.1.358255.3.579.2 .1314 1986 Unknown [id number] 2.16.840.1.098314.3.579.2 .1313 1986 Unknown [id number] 2.16.840.1.383265.3.579.2 .1313 1986 Unknown [id number] 2.16.840.1.141061.3.579.2 .1313 1986 Unknown [id number] 2.16.840.1.771575.3.579.2 .1313 1986 Unknown [id number] 2.16.840.1.011350.3.579.2 .1313 1986 Unknown [id number] 2.16.840.1.466170.3.579.2 .1313 1986 Unknown [id number] 2.16.840.1.883549.3.579.2 .1313 1986 Unknown [id number] 2.16.840.1.079499.3.579.2 .1242 1986 Unknown [id number] 2.16.840.1.576988.3.579.2 .1242 1986 Unknown [id number] 2.16.840.1.606741.3.579.2 .1242 1986 Unknown [id number] 2.16.840.1.007689.3.579.2 .1242 1986 Unknown [id number] 2.16.840.1.640216.3.579.2 .1242 1986 Unknown [id number] 2.16.840.1.394303.3.579.2 .1242 1986 Unknown [id number] 2.16.840.1.623350.3.579.2 .1242 1986 Unknown [id number] 2.16.840.1.009377.3.579.2 .1242 1986 Unknown [id number] 2.16.840.1.650765.3.579.2 .1243 1986 Unknown [id number] 2.16.840.1.511766.3.579.2 .1243 1986 Unknown [id number] 2.16.840.1.776465.3.579.2 .1243 1986 Unknown [id number] 2.16.840.1.975336.3.579.2 .1243 1986 Unknown [id number] 2.16.840.1.972149.3.579.2 .1243 1986 Unknown [id number] 2..840.1.159238.3.579.2 .1243 1959 Unknown [id number] 1 Unknown [id number] 2.840.1.893509.3.579.2 .462 Unknown [id number] 2.840.1.793000.3.579.2 .462 Unknown [id number] 2.840.1.627545.3.579.2 .462 Unknown [id number] 2.840.1.096824.3.579.2 .462 Unknown [id number] 2.840.1.538899.3.579.2 .462 Unknown [id number] 2.840.1.648546.3.579.2 .462 Unknown [id number] 2.840.1.230133.3.579.2 .462 Unknown [id number] 2.840.1.916486.3.579.2 .462 Unknown [id number] 2.840.1.729270.3.579.2 .462 Unknown [id number] 2.840.1.897773.3.579.2 .462 Unknown [id number] 2.840.1.280741.3.579.2 .462 Unknown [id number] 2.840.1.357020.3.579.2 .462 Unknown [id number] 2.16.840.1.462789.3.579.2 .462 Unknown [id number] 2.16.840.1.634188.3.579.2 .462 Unknown [id number] 2.16.840.1.882424.3.579.2 .462 Unknown [id number] 2.16.840.1.846316.3.579.2 .462 Social History Date Type Detail Facility Start: 07-03-2016 End: 06-30-2022 Tobacco smoking status NHIS Never smoker [facility] Start: 1985 Sex Assigned At Not on file [facility] Start: 07-13-2020 End: 06-30-2022 Tobacco use and exposure Never used [facility] Start: 07-13-2020 End: 05-18-2024 Alcohol intake Current non-drinker of alcohol (finding) [facility] Start: 04-21-2021 End: 07-20-2024 Exposure to SARS-CoV-2 (event) Not sure [facility] Start: 06-06-2021 End: 05-01-2023 Tobacco smoking consumption unknown [facility] Start: 01-05-2021 End: 02-04-2022 Alcohol intake Lifetime non-drinker (finding) [employer] Phone: Start: 02-22-2020 End: 01-01-2021 History SDOH Alcohol Frequency 1 [facility] Start: 05-01-2021 End: 10-19-2024 Alcohol intake Current drinker of alcohol (finding) [facility] Start: 02-22-2020 History SDOH Alcohol Frequency 2 [facility] Start: 01-19-2018 History SDOH Alcohol Comment occasionally [facility] Start: 08-03-2020 [facility] Start: 02-28-2020 Non-smoker [facility] Start: 1985 Sex Assigned At Female W [facility] Start: 02-22-2020 End: 08-03-2024 History of Social function [facility] Start: 02-22-2020 End: 08-03-2024 Alcohol Use Disorder Identification Test - Consumption [AUDIT-C] [facility] How often to you hav e a drink containing alcohol? Monthly or less [facility] How many standard dr inks containing alcohol do you have on a typical day? 1 or 2 [facility] Start: 01-11-2022 Frequency of Binge Drinking Not on file [facility] Start: 09-04-2016 Gender identity Identifies as female gender (finding) [facility] The thought of norman alvarado myself has occurred to me Never [facility] Work Phone: Start: 11-17-2022 Education 15 [facility] Start: 10-08-2023 Alcohol Comment rare 1 every 3 month s [facility] Work Phone: Start: 01-27-2024 Sexual orientation Heterosexua l (finding) [facility] Start: 10-25-2023 End: 11-04-2023 Exposure to SARS-CoV-2 (event) Unable to assess [facility] Start: 09-16-2013 End: 06-20-2024 Sex Female (finding) [facility] Start: 06-23-2024 Alcoholic beverage intake Ex-drinker (finding) [facility] NEGATED: Highlighted row - - [facility] Work Phone: NEGATED: Highlighted row [facility] NEGATED: Highlighted row Not [facility] Medical Equipment Procedure Code Equipment Code Equipment Origin al Text Equipment Identifier Dates Bone Graft Spine Infuse Med - Sna - [id number], [id number], [id number] FDA Start: 06-23-2024 Standalone Anterior Lumbar Interbody [id number], [id number] FDA Start: 06-23-2024 Locking Plate [id number] Start: 06-23-2024 Comment on above: Description: 5 modified from [id number] - Addison HOLLIS RN CNOR 5x30 Screw [id number] Start: 06-23-2024 5x30 Screw [id number] Start: 06-23-2024 Goals Date Patient Goal Desired Activity /State Functional Status Date Assessment Result Facility 07-20-2024 Patient Health Questionnaire 2 item (PHQ-2) [Reported] [facility] Work Phone: 07-20-2024 [place] - suicide severity rating scale screener - recent [C-SSRS] [facility] Work Phone: 06-01-2024 Patient Health Questionnaire 2 item (PHQ-2) [Reported] [facility] Work Phone: 06-01-2024 [place] - suicide severity rating scale screener - recent [C-SSRS] [facility] Work Phone: 07-02-2022 Are you deaf, or do you have serious difficulty hearing No 07/02/2022 5:52 PM Radha Quintero, VITA [facility] 07-02-2022 Are you blind, or do you have serious difficulty seeing, even when wearing glasses No 07/02/2022 5:52 PM Radha Quintero, VITA [facility] 07-02-2022 Do you have serious difficulty walking or climbing stairs No 07/02/2022 5:52 PM Radha Quintero, VITA No [facility] 07-02-2022 Do you have difficul ty dressing or bathing No 07/02/2022 5:52 PM Radha Quintero, VITA [facility] 07-02-2022 Because of a physica l, mental, or emotional condition, do you have difficulty doing errands alone such as visiting a physician's office or shopping No 07/02/2022 5:52 PM [facility] 06-07-2021 Functional status Ambulates;[facility] Work Phone: 06-07-2021 Functional status Assistive Ciara tasha None [facility] Work Phone: NEGATED: Highlighted row Functional performance Functional status health issues are not documented Disease [facility] Work Phone: Mental Status Date Assessment Result Facility 04-18-2024 Cognitive function Voice/Name [facility] Work Phone: 03-10-2024 Cognitive function Voice/Name [facility] Work Phone: 11-27-2022 Cognitive function Voice/Name [facility] Work Phone: 07-02-2022 Because of a physical, mental, or emotional condition, do you have serious difficulty concentrating, remembering, or making decisions No 07/02/2022 5:52 PM EDT Radha Agrawal, VITA [facility] 03-17-2022 Cognitive function [facility]/Name [facility] Work Phone: 01-06-2022 Cognitive function Voice/Name [facility] Work Phone: 10-23-2021 Cognitive function Voice/Name [facility] Work Phone: 06-07-2021 Cognitive function Voice/Name [facility] Work Phone: 06-06-2021 Cognitive function Awake;Alert;A [employer];Follows [employer]ands [facility] Work Phone: NEGATED: Highlighted row Cognitive function [Interpretation] Cognitive status health issues are not documented [facility] Work Phone: Clinical Notes 03-19-2016 to 10-19-2024 Timmy Mariano MD - 10/19/2024 10:30 AM EDTAddendum Note - Timmy Mariano MD - 10/19/2024 10:30 AM EDTAddendum Note - Timmy Mariano MD - 10/19/2024 10:30 AM PREETHITWinsome Cuevas APRN-DECK MECHANIC - 08/03/2024 4:20 PM EDT Note Date & Type Note Facility 09-03-2025 History of Presen t illness Narrative DAILY PROGRESS NOTE Admit Date: (Not on file) Date of Evaluation: 0:41 AM [facility] @MERLYN@ IMPRESSION AND PLAN: 37 y/o female w/ h/o HTN, epilepsy, kidney stone and PID here for hypokalemia. She has hysterectomy 1) Hypokalemia: K 2.9 -> 3.8 -> 3.3 -> 4.2 -> 4.0 -> 3.9 -> 3.8 -> 4.2 -> 3.8 -> 4.2 -> 3.6 -> 4.1 -> 4.0 , stable. Discontinued KCl 20mEQ PO Qday. Will get K level. Continue with spironolactone. 2) Hematuria: Renal US is unremarkable. UA disclosed trace bacteria, trace ketones and trace esterase Continue with potassium citrate Continue with Hydrochlorothiazide. 3) HTN: SBP 100s. Currently on spironolactone and Hydrochlorothiazide. 4) Kidney stone: CT abdomen 2 mm nonobstructive left renal calculus. A punctate calculus is seen within the posterior urinary bladder, suggestive of a previously passed stone. Renal US disclosed no hydronephrosis calculus or focal renal abnormality UA disclosed disclosed hematuria due to probably stones. US disclosed unremarkable right upper quadrant ultrasound. No cholelithiasis. No sonographic [place] sign. No intrahepatic/extra hepatic ductal dilatation. Renal US disclosed left kidney 6 mm echogenic structure consistent with a nonobstructing stone. Otherwise negative. Uric acid 3.4 PTH 27.4 Cr 0.98 -> 0.80 -> 1.00 She has calcium phos stone She needs to increase her volume. Will get CBC. SUBJECTIVE: Patient seen and examined. Chart, medications, labs reviewed. Appointment on 10/14/2024 Component Date Value Ref Range Status Glucose 10/14/2024 94 70 - 100 MG/DL Final Comment: NORMAL <100 mg/dL PREDIABETES 101-126 mg/dL DIABETES 126 mg/dL or higher BUN 10/14/2024 9 7 - 20 mg/dL Final CREATININE SERUM 10/14/2024 0.91 0.70 - 1.20 mg/dL Final SODIUM 10/14/2024 142 137 - 145 MMOL/L Final Potassium 10/14/2024 4.3 3.5 - 5.1 MMOL/L Final CHLORIDE 10/14/2024 107 98 - 107 MMOL/L Final Please note: Triglyceride levels of 600mg/dL or higher may positively bias chloride results by approximately 2.1 mmol CARBON DIOXIDE (CO2) 10/14/2024 25 22 - 30 MMOL/L Final Albumin 10/14/2024 4.7 3.5 - 5.0 g/dL Final CALCIUM 10/14/2024 9.7 8.4 - 10.2 mg/dL Final PHOSPHORUS 10/14/2024 3.0 2.5 - 4.5 MG/DL Final ESTIMATED GFR 10/14/2024 74 ml/min/1.73sq.m Final GFR COMMENT 10/14/2024 Average GFR for 30-39 years old = 107. Final Comment: Chronic Kidney disease, GFR = <60. Kidney failure, GFR = <15. The GFR estimate is not adjusted for extreme body surface area or acute process, nor has it been validated for women or ethnic groups other than and . MDRD Equation MAGNESIUM 10/14/2024 2.1 1.6 - 2.3 MG/DL Final WBC (WHITE BLOOD COUNT) 10/14/2024 5.6 3.6 - 11.0 10*3/uL Final RBC 10/14/2024 4.47 4.0 - 5.4 10*6/uL Final HEMOGLOBIN (HGB) 10/14/2024 13.6 12.0 - 16.0 G/DL Final HEMATOCRIT (HCT) 10/14/2024 40.8 36.0 - 48.0 % Final Mean Cell Volume 10/14/2024 91.2 80.0 - 100.0 FL Final Mean Cell HGB 10/14/2024 30.5 26.0 - 35.0 PG Final Mean Cell HGB Concentration 10/14/2024 33.4 27.0 - 37.0 G/DL Final RBC Distribution 10/14/2024 13.3 11.5 - 14.5 % Final PLATELET COUNT 10/14/2024 240 130 - 400 10*3/uL Final Mean Platelet Volume 10/14/2024 9.7 7.4 - 11.0 FL Final DIFFERENTIAL TYPE 10/14/2024 AUTO DIFF % Final NEUTROPHILS 10/14/2024 58.3 37.0 - 75.0 % Final LYMPHOCYTE 10/14/2024 32.5 20.0 - 55.0 % Final MONOCYTE % 10/14/2024 6.4 0.0 - 10.0 % Final EOSINOPHIL % 10/14/2024 2.1 0.0 - 11.0 % Final BASOPHIL % 10/14/2024 0.7 0.0 - 2.0 % Final Absolute Neutrophil Count 10/14/2024 3.2 1.4 - 6.5 10*3/uL Final LYMPHOCYTES, ABSOLUTE 10/14/2024 1.8 1.2 - 3.4 10*3/uL Final MONOCYTES, ABSOLUTE 10/14/2024 0.4 0.0 - 0.7 10*3/uL Final ABSOLUTE EOSINOPHIL COUNT 10/14/2024 0.1 0.0 - 0.7 10*3/uL Final ABSOLUTE BASOPHIL COUNT 10/14/2024 0.0 0.0 - 0.2 10*3/uL Final CREATININE, MG/DL, URINE 10/14/2024 39.6 MG/DL Final NO NORMAL VALUES ESTABLISHED FOR RANDOM SPECIMENS Microalbumin, Urine, Random 10/14/2024 <6.0 0.0 - 16.7 mg/L Final MICROALBUMIN/CREATININE RATIO 10/14/2024 NOT CALCULATED 1.3 - 30.0 mg MALB/g CREAT Final PROTEIN MG/DL-URINE 10/14/2024 12 0 - 12 MG/DL Final CREATININE, MG/DL, URINE 10/14/2024 40.0 MG/DL Final NO NORMAL VALUES ESTABLISHED FOR RANDOM SPECIMENS PROTEIN/CREAT RATIO, URINE 10/14/2024 0.3 Final Comment: REFERENCE RANGES <0.2 NORMAL 0.2-3.5 NON-NEPHROTIC >3.5 NEPHROTIC Color, Urine 10/14/2024 YELLOW YELLOW Final Appearance, Urine 10/14/2024 CLEAR CLEAR Final Specific [place], Urine 10/14/2024 1.015 1.010 - 1.025 Final PH URINE 10/14/2024 7.5 (H) 5.0 - 7.0 Final Urine Protein 10/14/2024 NEGATIVE NEGATIVE mg/dl Final Glucose, Urine 10/14/2024 NEGATIVE NEGATIVE mg/dl Final Ketones, Urine 10/14/2024 NEGATIVE NEGATIVE mg/dl Final BILIRUBIN, URINE 10/14/2024 NEGATIVE NEGATIVE Final BLOOD, URINE DIPSTICK 10/14/2024 SMALL (A) NEGATIVE Final Nitrites, Urine 10/14/2024 NEGATIVE NEGATIVE Final Urobilinogen, Urine 10/14/2024 0.2 0.2 - 1.0 E.U./dL Final Leukocyte esterase, Urine 10/14/2024 NEGATIVE NEGATIVE Final SODIUM, URINE RANDOM 10/14/2024 51 30 - 90 mmol/L Final WBC, Urine 10/14/2024 NEGATIVE NEGATIVE /HPF Final RBC, Urine 10/14/2024 1 TO 5 NEGATIVE /HPF Final Epithelial Cells UA 10/14/2024 10 TO 20 /HPF Final Mucus 10/14/2024 NEGATIVE NEGATIVE Final Bacteria, Urine 10/14/2024 TRACE (A) NEGATIVE Final CRYSTALS, URINE 10/14/2024 NONE NONE Final CASTS, URINE 10/14/2024 NONE NONE /LPF Final COMMENT, URINE 10/14/2024 POSSIBLY CONTAMINATED SPECIMEN, CULTURE MUST BE ORDERED SEPARATELY IF DEEMED NECESSARY. Final LABS Labs-ABGs @ABGROUNDS@ Labs-CBC @CBCBRIEFROUNDS@ Labs-Chem 7(PMC) @[facility]@ Labs-Coags WBC (WHITE BLOOD COUNT) Date Value Ref Range Status 10/14/2024 5.6 3.6 - 11.0 10*3/uL Final 08/01/2024 5.5 3.6 - 11.0 10*3/uL Final 01/30/2024 5.5 3.6 - 11.0 10*3/uL Final HEMOGLOBIN (HGB) Date Value Ref Range Status 10/14/2024 13.6 12.0 - 16.0 G/DL Final 08/01/2024 12.8 12.0 - 16.0 G/DL Final 01/30/2024 13.3 12.0 - 16.0 G/DL Final HEMATOCRIT (HCT) Date Value Ref Range Status 10/14/2024 40.8 36.0 - 48.0 % Final 08/01/2024 38.2 36.0 - 48.0 % Final 01/30/2024 40.6 36.0 - 48.0 % Final PLATELET COUNT Date Value Ref Range Status 10/14/2024 240 130 - 400 10*3/uL Final 08/01/2024 203 130 - 400 10*3/uL Final 01/30/2024 227 130 - 400 10*3/uL Final SODIUM Date Value Ref Range Status 10/14/2024 142 137 - 145 MMOL/L Final 08/01/2024 140 137 - 145 MMOL/L Final 01/30/2024 138 137 - 145 MMOL/L Final CHLORIDE Date Value Ref Range Status 10/14/2024 107 98 - 107 MMOL/L Final Comment: Please note: Triglyceride levels of 600mg/dL or higher may positively bias chloride results by approximately 2.1 mmol 08/01/2024 104 98 - 107 MMOL/L Final Comment: Please note: Triglyceride levels of 600mg/dL or higher may positively bias chloride results by approximately 2.1 mmol 01/30/2024 107 98 - 107 MMOL/L Final Comment: Please note: Triglyceride levels of 600mg/dL or higher may positively bias chloride results by approximately 2.1 mmol BUN Date Value Ref Range Status 10/14/2024 9 7 - 20 mg/dL Final 08/01/2024 14 7 - 20 mg/dL Final 01/30/2024 13 7 - 20 MG/DL Final Potassium Date Value Ref Range Status 10/14/2024 4.3 3.5 - 5.1 MMOL/L Final 08/01/2024 4.3 3.5 - 5.1 MMOL/L Final 01/30/2024 4.1 3.5 - 5.1 MMOL/L Final CREATININE SERUM Date Value Ref Range Status 10/14/2024 0.91 0.70 - 1.20 mg/dL Final 08/01/2024 1.00 0.70 - 1.20 mg/dL Final 01/30/2024 0.97 0.70 - 1.20 MG/DL Final Glucose Date Value Ref Range Status 10/14/2024 94 70 - 100 MG/DL Final Comment: NORMAL <100 mg/dL PREDIABETES 101-126 mg/dL DIABETES 126 mg/dL or higher 08/01/2024 94 70 - 100 MG/DL Final Comment: NORMAL <100 mg/dL PREDIABETES 101-126 mg/dL DIABETES 126 mg/dL or higher 01/30/2024 89 70 - 100 MG/DL Final Comment: NORMAL <100 mg/dL PREDIABETES 101-126 mg/dL DIABETES 126 mg/dL or higher PT Date Value Ref Range Status 07/03/2022 14.1 11.8 - 14.4 SEC Final 12/23/2018 13.4 11.6 - 14.0 SEC Final 08/01/2018 12.8 11.6 - 14.0 SEC Final PTT Date Value Ref Range Status 08/01/2018 27.7 23.2 - 34.5 SEC Final Comment: THERAPEUTIC RANGE (43.0-65.0) 05/27/2018 29.6 23.2 - 34.5 SEC Final Comment: THERAPEUTIC RANGE (43.0-65.0) 06/25/2017 27.2 23.2 - 34.5 SEC Final Comment: THERAPEUTIC RANGE (43.0-65.0) PROTEIN, TOTAL Date Value Ref Range Status 07/03/2022 6.5 6.3 - 8.2 GM/DL Final 07/02/2022 8.5 (H) 6.3 - 8.2 GM/DL Final 10/07/2021 7.7 6.3 - 8.2 GM/DL Final Albumin Date Value Ref Range Status 10/14/2024 4.7 3.5 - 5.0 g/dL Final 08/01/2024 4.8 3.5 - 5.0 g/dL Final 01/30/2024 4.9 3.5 - 5.0 G/dl Final AST Date Value Ref Range Status 07/03/2022 15 15 - 41 IU/L Final 07/02/2022 22 15 - 41 IU/L Final 10/07/2021 20 15 - 41 IU/L Final ALT Date Value Ref Range Status 07/03/2022 13 (L) 14 - 54 IU/L Final 07/02/2022 16 14 - 54 IU/L Final 10/07/2021 18 14 - 54 IU/L Final BILIRUBIN, TOTAL Date Value Ref Range Status 07/03/2022 0.3 0.2 - 1.2 MG/DL Final CALCIUM Date Value Ref Range Status 10/14/2024 9.7 8.4 - 10.2 mg/dL Final 08/01/2024 9.9 8.4 - 10.2 mg/dL Final 01/30/2024 10.2 8.4 - 10.2 MG/DL Final PHOSPHORUS Date Value Ref Range Status 10/14/2024 3.0 2.5 - 4.5 MG/DL Final 08/01/2024 3.6 2.5 - 4.5 MG/DL Final 01/30/2024 3.4 2.5 - 4.5 MG/DL Final MAGNESIUM Date Value Ref Range Status 10/14/2024 2.1 1.6 - 2.3 MG/DL Final 08/01/2024 2.0 1.6 - 2.3 MG/DL Final 01/30/2024 2.1 1.6 - 2.3 MG/DL Final Lab Results Component Value Date CREATURINE 40.0 10/14/2024 CREATSERUM 0.91 10/14/2024 BUN 9 10/14/2024 SODIUM 142 10/14/2024 POTASSIUM 4.3 10/14/2024 CHLORIDE 107 10/14/2024 CO2 25 10/14/2024 ROS: Constitution: No fever, no chill HEENT: No headache, no sinus issues CV: No chest pain, no palpitation Lung: No cough, No SOB Abd: No diarrhea, no constipation Neuro: No seizure, no loss of consciousness Heme: No bleeding, no bruise PHYSICAL EXAM: Wt Readings from Last 3 Encounters: 10/19/24 68.9 kg (152 lb) 08/03/24 70 kg (154 lb 6.4 oz) 08/03/24 68.5 kg (151 lb) Temp Readings from Last 3 Encounters: 01/27/24 98.4 F (36.9 C) 09/07/23 97.6 F (36.4 C) (Temporal) 06/10/23 98.7 F (37.1 C) (Temporal) BP Readings from Last 3 Encounters: 10/19/24 100/78 08/03/24 104/73 08/03/24 116/80 Pulse Readings from Last 3 Encounters: 10/19/24 91 08/03/24 88 08/03/24 84 Gen: NAD, lying in bed, conversant HEENT: Atraumatic, PERRLA, moist membrane CV: RRR, nl S1 and S2, no m/g/r Lung: CTAB, no wheezing, no crackle Abd: +BS, nontender, no distended Ext: No rash, no clubbing, no cyanosis. No edema. Neuro: CNII-XII grossly intact, 5/5 strength, normal tone Skin: Warm and dry documented in this encounter [facility] 10-19-2024 Miscellaneous Notes Addended by: TIMMY MARIANO on: 10/19/2024 10:51 AM Modules accepted: Orders documented in this encounter [facility] 10-19-2024 Note Addended by: FREDI MARIANO on: 10/19/2024 10:51 AM Modules accepted: Orders [facility] 08-24-2024 Discharge summary [facility] 08-24-2024 Radiology Diagnostic study note [facility] Imaging Services [address] [place] [address] [id number] Abdomen/Pelvis without Cont MR#: [id number] Acct: [id number] Name: KENDALL VASQUES Rep #: [id number] : 1985 F 38 From: Bridger Morgan MD PCP: MÓNICA Garcia Status: REG ER Study:Abdomen/Pelvis without Cont Date of Exa m: 08/24/24 Exam# [id number] Ordering Dr: Rashid Gilliland DO PROCEDURE: ABDOMEN/PELVIS WITHOUT CONT 08/24/2024 REASON FOR EXAM: LEFT FLANK PAIN, HX OF 6 MM STONE TECHNIQUE: ABDOMEN/PELVIS WITHOUT CONT Noncontrast technique limits evaluation of the abdominal and pelvic viscera. Coronal and Sagittal reconstruction series were provided. One or more dose reduction techniques were used (e.g., Automated exposure control, adjustment of the mA and/or kV according to patient size, use of iterative reconstruction technique). RADIATION DOSE SUMMARY: CTDlvol: 7.04 mGy DLP: 357.03 mGycm COMPARISON: Prior study dated June 27, 2024. FINDINGS: Lung bases: Lung bases are clear. Liver: Normal size. No obvious mass. Gallbladder: No evidence of gallstones. Spleen: Normal size. Pancreas: Normal size. No surrounding inflammation. Adrenals: Unremarkable Kidneys: 2.5 mm non obstructive calculus in the lower pole calyx of the left kidney. Punctate calculus in the lower pole calyx of the right kidney. No evidence of hydronephrosis. Bladder: Unremarkable. Reproductive Organs: Prior hysterectomy. Adnexal regions are unremarkable. Status post right oophorectomy. Bowel: Unremarkable Appendix: Unremarkable Lymph nodes: Unremarkable. Vasculature: The abdominal aorta and IVC contours are normal. Noncontrast technique limits evaluation. Peritoneum / Retroperitoneum: Unremarkable Bones: Prior anterior fusion at the L5-S1 level. CT/Abdomen/Pelvis without Cont IMPRESSION: 2.5 mm nonobstructive calculus in the lower pole calyx of the left kidney. No evidence of obstructive uropathy at this time. Reading Location: [place] [address] CC: MÓNICA Cuevas; Dr. Guillermo Gilliland, DO ~ [employer] Designer: Signed [facility] 08-03-2024 History of Present illness Narrative Chief Complaint Patient presents with Anxiety Other Spinal Fusion Dr. Thomas with [facility] Insomnia Nausea Kidney Stone Followed by HPI: Interval History: Had fusion of lumbar spine on 06/23/[address] Thomas. Up to walking 1-2 miles per day at this time and feeling ok, despite having a kidney stone. She saw Dr Mariano earlier today and is doing a kidney ultrasound and 24 hour urine. If there are multiple stones, he will refer to urology. Regarding Insomnia: She presents today for complaint of insomnia. Onset of symptoms: years. Previously treated with: Trazodone. Dose of 150mg works well for her. She denies am grogginess with this medication. Current meds include: trazodone 150mg daily. Frequency of medication use: nightly Pt reports difficulty initiating sleep: Yes Difficulty maintaining sleep: Yes Early awakening: Yes Pt reports or exhibits symptoms of anxiety/depression: Yes; feels symptoms are currently under control. Regarding Anxiety/Depression: Kendall presents with the complaint of anxiety/depression which is currently under control. She feels her anxiety is improved on Trintellix. She reports the following triggers: stress. She has required ativan very little since starting Tritellix. [facility] report checked today and last fill of ativan was in 04/12. Other symptoms include: depressed mood, insomnia. Denies SI/HI. Current treatment includes: Trintellix 20mg daily. Feels that this medication is working well. Significant medical conditions: see list Previous Medications: Zoloft. celexa and she did not like as it caused weight gain and no improvement. Wellbutrin around 10 years ago, did not do well on this medication. Nausea: She takes zofran most days for nausea. Also likes to have promethazine on hand as one works better for her during the day and one works better for her at night. Feels nauseous in the evening. Suppository is not needed at this time. Sometimes finds a pattern to nausea and what she is eating. ROS: Constitutional: Negative for fatigue and fever. HENT: Negative for congestion, ear pain and sore throat. Eyes: Negative for pain and redness. Respiratory: Negative for cough and shortness of breath. Cardiovascular: Negative for chest pain and palpitations. Gastrointestinal: Positive for abdominal pain and nausea. Negative for constipation, diarrhea and vomiting. Genitourinary: Positive for difficulty urinating, dysuria, flank pain, frequency, hematuria and pelvic pain. Musculoskeletal: Positive for back pain. Negative for arthralgias and myalgias. Skin: Positive for wound. Negative for rash. Neurological: Negative for dizziness and headaches. Past medical/family/social history: reviewed and updated, see documented in patient's chart. Physical Exam: BP 104/73 (BP Location: Left arm, BP Position: Sitting) Pulse 88 Wt 70 kg (154 lb 6.4 oz) BMI 26.50 kg/m Smoking Status Never Body mass index is 26.5 kg/m . Physical Exam Vitals and nursing note reviewed. Constitutional: Appearance: Normal appearance. HENT: Head: Normocephalic and atraumatic. Eyes: Conjunctiva/sclera: Conjunctivae normal. Pupils: Pupils are equal, round, and reactive to light. Pulmonary: Effort: Pulmonary effort is normal. Musculoskeletal: Comments: Wearing back brace Neurological: Mental Status: She is alert and oriented to person, place, and time. Psychiatric: Attention and Perception: Attention normal. Mood and Affect: Mood and affect normal. Behavior: Behavior normal. Assessment & Plan Generalized anxiety disorder Chronic and stable. No change to current medications. Orders: busPIRone HCl 7.5 MG tablet; Take 1 tablet by mouth 3 times daily as needed for Anxiety. LORazepam (Ativan) 0.5 MG tablet; Take 1 tablet by mouth 2 times daily as needed for Anxiety for up to 20 days. Vortioxetine HBr (Trintellix) 20 MG tablet; Take 1 tablet by mouth daily. Nausea Chronic and intermittent. Refill on promethazine per patient request. Orders: Promethazine HCl 12.5 MG tablet; Take 1 tablet by mouth every 4 hours as needed for Nausea / Vomiting. Psychophysiological insomnia Chronic and stable. Continue nightly trazodone as needed. Orders: trazodone 150 MG tablet; Take 1 tablet by mouth every evening at 6 PM. *Follow up in 6 months.* Orders and follow up as documented in patient record; There are no discontinued medications. Requested Prescriptions Pending Prescriptions Disp Refills busPIRone HCl 7.5 MG tablet 90 tablet 0 Sig: Take 1 tablet by mouth 3 times daily as needed for Anxiety. LORazepam (Ativan) 0.5 MG tablet 14 tablet 0 Sig: Take 1 tablet by mouth 2 times daily as needed for Anxiety for up to 20 days. Promethazine HCl 12.5 MG tablet 30 tablet 0 Sig: Take 1 tablet by mouth every 4 hours as needed for Nausea / Vomiting. trazodone 150 MG tablet 90 tablet 1 Sig: Take 1 tablet by mouth every evening at 6 PM. Vortioxetine HBr (Trintellix) 20 MG tablet 90 tablet 1 Sig: Take 1 tablet by mouth daily. Patient was advised to call with any questions or concerns. If symptoms worsen patient was advised to follow up in our office or the Emergency Dept. Benefits, Risks, Contraindications, and Complications of recommended treatments were explained the patient understands and agrees to proceed with plan. CHRISTELLE Peace 08/03/2024 Nurse Note: Review of Systems Constitutional: Negative for fatigue and fever. HENT: Negative for congestion, ear pain and sore throat. Eyes: Negative for pain and redness. Respiratory: Negative for cough and shortness of breath. Cardiovascular: Negative for chest pain and palpitations. Gastrointestinal: Positive for abdominal pain and nausea. Negative for constipation, diarrhea and vomiting. Genitourinary: Positive for difficulty urinating, dysuria, flank pain, frequency, hematuria and pelvic pain. Musculoskeletal: Positive for back pain. Negative for arthralgias and myalgias. Skin: Positive for wound. Negative for rash. Neurological: Negative for dizziness and headaches. documented in this encounter [facility] 08-03-2024 Instructions CHRISTELLE Peace - 08/03/2024 4:20 PM EDT *Refills on meds.* Patient was advised to call with any questions or concerns. If symptoms worsen patient was advised to follow up in our office or the Emergency Dept. Benefits, Risks, Contraindications, and Complications of recommended treatments were explained the patient understands and agrees to proceed with plan. documented in this encounter [facility] 08-03-2024 History of Present illness Narrative DAILY PROGRESS NOTE Admit Date: (Not on file) Date of Evaluation: 53:44 PM [facility] @[facility]@ IMPRESSION AND PLAN: 37 y/o female w/ h/o HTN, epilepsy, kidney stone and PID here for hypokalemia. She has hysterectomy 1) Hypokalemia: K 2.9 -> 3.8 -> 3.3 -> 4.2 -> 4.0 -> 3.9 -> 3.8 -> 4.2 -> 3.8 -> 4.2 -> 3.6 -> 4.1 -> 4.0 , stable. Discontinued KCl 20mEQ PO Qday. Will get K level. Continue with spironolactone. 2) Hematuria: Renal US is unremarkable. UA disclosed trace bacteria, trace ketones and trace esterase Continue with potassium citrate Continue with Hydrochlorothiazide. 3) HTN: SBP 100s. Currently on spironolactone and Hydrochlorothiazide. 4) Kidney stone: CT abdomen 2 mm nonobstructive left renal calculus. A punctate calculus is seen within the posterior urinary bladder, suggestive of a previously passed stone. Renal US disclosed no hydronephrosis calculus or focal renal abnormality UA disclosed disclosed hematuria due to probably stones. US disclosed unremarkable right upper quadrant ultrasound. No cholelithiasis. No sonographic [place] sign. No intrahepatic/extra hepatic ductal dilatation. Uric acid 3.4 PTH 27.4 Cr 0.98 -> 0.80 -> 1.00 Will get 24 hour litholink. Will get renal US. Will get CBC. SUBJECTIVE: Patient seen and examined. Chart, medications, labs reviewed. Appointment on 08/01/2024 Component Date Value Ref Range Status SEDIMENTATION RATE AUTOMATED 08/01/2024 14 0 - 15 MM/HR Final C-Reactive Protein 08/01/2024 <5.0 0 - 10 MG/L Final SHARON-DIRECT 08/01/2024 Negative Final Comment: Reference range: [facility] Glucose 08/01/2024 94 70 - 100 MG/DL Final Comment: NORMAL <100 mg/dL PREDIABETES 101-126 mg/dL DIABETES 126 mg/dL or higher BUN 08/01/2024 14 7 - 20 mg/dL Final CREATININE SERUM 08/01/2024 1.00 0.70 - 1.20 mg/dL Final SODIUM 08/01/2024 140 137 - 145 MMOL/L Final Potassium 08/01/2024 4.3 3.5 - 5.1 MMOL/L Final CHLORIDE 08/01/2024 104 98 - 107 MMOL/L Final Please note: Triglyceride levels of 600mg/dL or higher may positively bias chloride results by approximately 2.1 mmol CARBON DIOXIDE (CO2) 08/01/2024 25 22 - 30 MMOL/L Final Albumin 08/01/2024 4.8 3.5 - 5.0 g/dL Final CALCIUM 08/01/2024 9.9 8.4 - 10.2 mg/dL Final PHOSPHORUS 08/01/2024 3.6 2.5 - 4.5 MG/DL Final ESTIMATED GFR 08/01/2024 66 ml/min/1.73sq.m Final GFR COMMENT 08/01/2024 Average GFR for 30-39 years old = 107. Final Comment: Chronic Kidney disease, GFR = <60. Kidney failure, GFR = <15. The GFR estimate is not adjusted for extreme body surface area or acute process, nor has it been validated for women or ethnic groups other than and . MAGNESIUM 08/01/2024 2.0 1.6 - 2.3 MG/DL Final WBC (WHITE BLOOD COUNT) 08/01/2024 5.5 3.6 - 11.0 10*3/uL Final RBC 08/01/2024 4.16 4.0 - 5.4 10*6/uL Final HEMOGLOBIN (HGB) 08/01/2024 12.8 12.0 - 16.0 G/DL Final HEMATOCRIT (HCT) 08/01/2024 38.2 36.0 - 48.0 % Final Mean Cell Volume 08/01/2024 92.0 80.0 - 100.0 FL Final Mean Cell HGB 08/01/2024 30.9 26.0 - 35.0 PG Final Mean Cell HGB Concentration 08/01/2024 33.6 27.0 - 37.0 G/DL Final RBC Distribution 08/01/2024 13.4 11.5 - 14.5 % Final PLATELET COUNT 08/01/2024 203 130 - 400 10*3/uL Final Mean Platelet Volume 08/01/2024 9.1 7.4 - 11.0 FL Final DIFFERENTIAL TYPE 08/01/2024 AUTO DIFF % Final NEUTROPHILS 08/01/2024 49.1 37.0 - 75.0 % Final LYMPHOCYTE 08/01/2024 40.1 20.0 - 55.0 % Final MONOCYTE % 08/01/2024 6.4 0.0 - 10.0 % Final EOSINOPHIL % 08/01/2024 3.7 0.0 - 11.0 % Final BASOPHIL % 08/01/2024 0.7 0.0 - 2.0 % Final Absolute Neutrophil Count 08/01/2024 2.7 1.4 - 6.5 10*3/uL Final LYMPHOCYTES, ABSOLUTE 08/01/2024 2.2 1.2 - 3.4 10*3/uL Final MONOCYTES, ABSOLUTE 08/01/2024 0.4 0.0 - 0.7 10*3/uL Final ABSOLUTE EOSINOPHIL COUNT 08/01/2024 0.2 0.0 - 0.7 10*3/uL Final ABSOLUTE BASOPHIL COUNT 08/01/2024 0.0 0.0 - 0.2 10*3/uL Final CREATININE, MG/DL, URINE 08/01/2024 102.3 MG/DL Final NO NORMAL VALUES ESTABLISHED FOR RANDOM SPECIMENS Microalbumin, Urine, Random 08/01/2024 <6.0 0.0 - 16.7 mg/L Final MICROALBUMIN/CREATININE RATIO 08/01/2024 NOT CALCULATED 1.3 - 30.0 mg MALB/g CREAT Final PROTEIN MG/DL-URINE 08/01/2024 6 0 - 12 MG/DL Final CREATININE, MG/DL, URINE 08/01/2024 102.3 MG/DL Final NO NORMAL VALUES ESTABLISHED FOR RANDOM SPECIMENS PROTEIN/CREAT RATIO, URINE 08/01/2024 0.1 Final Comment: REFERENCE RANGES <0.2 NORMAL 0.2-3.5 NON-NEPHROTIC >3.5 NEPHROTIC Color, Urine 08/01/2024 YELLOW YELLOW Final Appearance, Urine 08/01/2024 CLEAR CLEAR Final Specific [place], Urine 08/01/2024 1.020 1.010 - 1.025 Final PH URINE 08/01/2024 5.5 5.0 - 7.0 Final Urine Protein 08/01/2024 NEGATIVE NEGATIVE mg/dl Final Glucose, Urine 08/01/2024 NEGATIVE NEGATIVE mg/dl Final Ketones, Urine 08/01/2024 NEGATIVE NEGATIVE mg/dl Final BILIRUBIN, URINE 08/01/2024 NEGATIVE NEGATIVE Final BLOOD, URINE DIPSTICK 08/01/2024 MODERATE (A) NEGATIVE Final Nitrites, Urine 08/01/2024 NEGATIVE NEGATIVE Final Urobilinogen, Urine 08/01/2024 0.2 0.2 - 1.0 E.U./dL Final Leukocyte esterase, Urine 08/01/2024 NEGATIVE NEGATIVE Final SODIUM, URINE RANDOM 08/01/2024 113 (H) 30 - 90 mmol/L Final WBC, Urine 08/01/2024 NEGATIVE NEGATIVE /HPF Final RBC, Urine 08/01/2024 1 TO 5 NEGATIVE /HPF Final Epithelial Cells UA 08/01/2024 10 TO 20 /HPF Final Mucus 08/01/2024 NEGATIVE NEGATIVE Final Bacteria, Urine 08/01/2024 TRACE (A) NEGATIVE Final CRYSTALS, URINE 08/01/2024 NONE NONE Final CASTS, URINE 08/01/2024 NONE NONE /LPF Final COMMENT, URINE 08/01/2024 POSSIBLY CONTAMINATED SPECIMEN, CULTURE MUST BE ORDERED SEPARATELY IF DEEMED NECESSARY. Final LABS Labs-ABGs @ABGROUNDS@ Labs-CBC @CBCBRIEFROUNDS@ Labs-Chem 7(PMC) @[facility]@ Labs-Coa WBC (WHITE BLOOD COUNT) Date Value Ref Range Status 08/01/2024 5.5 3.6 - 11.0 10*3/uL Final 01/30/2024 5.5 3.6 - 11.0 10*3/uL Final 09/07/2023 5.7 3.6 - 11.0 10*3/uL Final HEMOGLOBIN (HGB) Date Value Ref Range Status 08/01/2024 12.8 12.0 - 16.0 G/DL Final 01/30/2024 13.3 12.0 - 16.0 G/DL Final 09/07/2023 12.5 12.0 - 16.0 G/DL Final HEMATOCRIT (HCT) Date Value Ref Range Status 08/01/2024 38.2 36.0 - 48.0 % Final 01/30/2024 40.6 36.0 - 48.0 % Final 09/07/2023 39.3 36.0 - 48.0 % Final PLATELET COUNT Date Value Ref Range Status 08/01/2024 203 130 - 400 10*3/uL Final 01/30/2024 227 130 - 400 10*3/uL Final 09/07/2023 239 130 - 400 10*3/uL Final SODIUM Date Value Ref Range Status 08/01/2024 140 137 - 145 MMOL/L Final 01/30/2024 138 137 - 145 MMOL/L Final 09/07/2023 140 137 - 145 MMOL/L Final CHLORIDE Date Value Ref Range Status 08/01/2024 104 98 - 107 MMOL/L Final Comment: Please note: Triglyceride levels of 600mg/dL or higher may positively bias chloride results by approximately 2.1 mmol 01/30/2024 107 98 - 107 MMOL/L Final Comment: Please note: Triglyceride levels of 600mg/dL or higher may positively bias chloride results by approximately 2.1 mmol 09/07/2023 109 (H) 98 - 107 MMOL/L Final Comment: Please note: Triglyceride levels of 600mg/dL or higher may positively bias chloride results by approximately 2.1 mmol BUN Date Value Ref Range Status 08/01/2024 14 7 - 20 mg/dL Final 01/30/2024 13 7 - 20 MG/DL Final 09/07/2023 15 7 - 20 MG/DL Final Potassium Date Value Ref Range Status 08/01/2024 4.3 3.5 - 5.1 MMOL/L Final 01/30/2024 4.1 3.5 - 5.1 MMOL/L Final 09/07/2023 4.0 3.5 - 5.1 MMOL/L Final CREATININE SERUM Date Value Ref Range Status 08/01/2024 1.00 0.70 - 1.20 mg/dL Final 01/30/2024 0.97 0.70 - 1.20 MG/DL Final 09/07/2023 0.90 0.70 - 1.20 MG/DL Final Glucose Date Value Ref Range Status 08/01/2024 94 70 - 100 MG/DL Final Comment: NORMAL <100 mg/dL PREDIABETES 101-126 mg/dL DIABETES 126 mg/dL or higher 01/30/2024 89 70 - 100 MG/DL Final Comment: NORMAL <100 mg/dL PREDIABETES 101-126 mg/dL DIABETES 126 mg/dL or higher 09/07/2023 89 70 - 100 MG/DL Final Comment: NORMAL <100 mg/dL PREDIABETES 101-126 mg/dL DIABETES 126 mg/dL or higher PT Date Value Ref Range Status 07/03/2022 14.1 11.8 - 14.4 SEC Final 12/23/2018 13.4 11.6 - 14.0 SEC Final 08/01/2018 12.8 11.6 - 14.0 SEC Final PTT Date Value Ref Range Status 08/01/2018 27.7 23.2 - 34.5 SEC Final Comment: THERAPEUTIC RANGE (43.0-65.0) 05/27/2018 29.6 23.2 - 34.5 SEC Final Comment: THERAPEUTIC RANGE (43.0-65.0) 06/25/2017 27.2 23.2 - 34.5 SEC Final Comment: THERAPEUTIC RANGE (43.0-65.0) PROTEIN, TOTAL Date Value Ref Range Status 07/03/2022 6.5 6.3 - 8.2 GM/DL Final 07/02/2022 8.5 (H) 6.3 - 8.2 GM/DL Final 10/07/2021 7.7 6.3 - 8.2 GM/DL Final Albumin Date Value Ref Range Status 08/01/2024 4.8 3.5 - 5.0 g/dL Final 01/30/2024 4.9 3.5 - 5.0 G/dl Final 09/07/2023 4.8 3.5 - 5.0 G/dl Final AST Date Value Ref Range Status 07/03/2022 15 15 - 41 IU/L Final 07/02/2022 22 15 - 41 IU/L Final 10/07/2021 20 15 - 41 IU/L Final ALT Date Value Ref Range Status 07/03/2022 13 (L) 14 - 54 IU/L Final 07/02/2022 16 14 - 54 IU/L Final 10/07/2021 18 14 - 54 IU/L Final BILIRUBIN, TOTAL Date Value Ref Range Status 07/03/2022 0.3 0.2 - 1.2 MG/DL Final CALCIUM Date Value Ref Range Status 08/01/2024 9.9 8.4 - 10.2 mg/dL Final 01/30/2024 10.2 8.4 - 10.2 MG/DL Final 09/07/2023 9.4 8.4 - 10.2 MG/DL Final PHOSPHORUS Date Value Ref Range Status 08/01/2024 3.6 2.5 - 4.5 MG/DL Final 01/30/2024 3.4 2.5 - 4.5 MG/DL Final 09/07/2023 3.5 2.5 - 4.5 MG/DL Final MAGNESIUM Date Value Ref Range Status 08/01/2024 2.0 1.6 - 2.3 MG/DL Final 01/30/2024 2.1 1.6 - 2.3 MG/DL Final 09/07/2023 2.1 1.6 - 2.3 MG/DL Final Lab Results Component Value Date CREATURINE 102.3 08/01/2024 CREATURINE 102.3 08/01/2024 CREATSERUM 1.00 08/01/2024 BUN 14 08/01/2024 SODIUM 140 08/01/2024 POTASSIUM 4.3 08/01/2024 CHLORIDE 104 08/01/2024 CO2 25 08/01/2024 ROS: Constitution: No fever, no chill HEENT: No headache, no sinus issues CV: No chest pain, no palpitation Lung: No cough, No SOB Abd: No diarrhea, no constipation Neuro: No seizure, no loss of consciousness Heme: No bleeding, no bruise PHYSICAL EXAM: Wt Readings from Last 3 Encounters: 08/03/24 68.5 kg (151 lb) 03/30/24 65.8 kg (145 lb) 02/03/24 69.4 kg (152 lb 14.4 oz) Temp Readings from Last 3 Encounters: 01/27/24 98.4 F (36.9 C) 09/07/23 97.6 F (36.4 C) (Temporal) 06/10/23 98.7 F (37.1 C) (Temporal) BP Readings from Last 3 Encounters: 08/03/24 116/80 03/30/24 107/73 02/03/24 106/70 Pulse Readings from Last 3 Encounters: 08/03/24 84 03/30/24 94 02/03/24 73 Gen: NAD, lying in bed, conversant HEENT: Atraumatic, PERRLA, moist membrane CV: RRR, nl S1 and S2, no m/g/r Lung: CTAB, no wheezing, no crackle Abd: +BS, nontender, no distended Ext: No rash, no clubbing, no cyanosis. No edema. Neuro: CNII-XII grossly intact, 5/5 strength, normal tone Skin: Warm and dry documented in this encounter [facility] 07-20-2024 History of Present illness Narrative Subjective Patient ID: Kendall Vasques is a 38 y.o. female who presents for Follow-up (FOLLOW UP L4/L5 LUMBAR FUSION DONE ON 06/23/24 DR. THOMAS, SHE IS CURRENTLY AMBULATING WITH A WALKER, SHE WEARS A BACK BRACE, SHE IS TAKING PERCOCET AND TYLENOL IN BETWEEN DOSES, CONTINUES GABAPENTIN AND TIZANIDINE, SHE STATE SHE NOTICES A DIFFERENCE SINCE SURGERY WITH THE NUMBNESS AND PAIN INTO HER RIGHT LEG IS GONE, SHE IS NOT ALLOWED TO DO ANY BENDING, TWISTING OR LIFTING FOR 3 MONTHS). REFILL TIZANIDINE, DISCUSS GABAPENTIN DOSE, PAIN SCORE 8/10, FLAQUITO=78% HPI Patient is presenting with a history of chronic pain syndrome, lumbosacral spondyloarthropathy and lumbar radiculopathy. He underwent an L5/S1 anterior lumbar interbody fusion as above. She rates her pain as an 8/10 now and she has persistent pain in her low back as well as down her right leg as well as right foot drop. Overall though she feels that she is making some improvements postoperatively. She is still taking tizanidine and gabapentin and we discussed and reviewed dosing and dose adjustments with her today. We did review her prior imaging studies inclusive of her last lumbar MRI. Review of Systems All other systems reviewed and are negative. Objective Physical Exam Constitutional: No acute distress, well appearing and well nourished. Patient appears stated age. Eyes: Conjunctiva non-icteric and eye lids are without obvious rash or drooping. Pupils are symmetric. Ears, Nose, Mouth, and Throat: External ears and nose appear to be without deformity or rash. No lesions or masses noted. Hearing is grossly intact. Neck: No JVD noted, tracheal position is midline. Head and Face: Examination of the head and face revealed no abnormalities. Respiratory: No gasping or shortness of breath noted, no use of accessory muscles noted. Cardiovascular: Examination for edema is normal. GI: Brace across abdomen. Skin: No rashes or open lesions/ulcers identified on examined areas. MSK: No asymmetry or masses noted of the musculature. Examination of the muscles/joints/bones show grossly normal range of motion unless noted below. Neurologic: Motor strength: 5/5 muscle strength of the upper extremities bilateral and equal. 5/5 muscle strength to left lower extremity. right lower extremity 4/5 quads, 4/5 hamstrings, 4/5 hip flexors, 4/5 plantarflexion, 2-3/5 dorsiflexion. Sensation: Sensation intact to light touch in the bilateral upper and lower extremities, with the exception of diminished sensation in the L5 and S1 dermatomal on the right compared to the contralateral side Psychiatric: Mood and affect are normal. Assessment/Plan Diagnoses and all orders for this visit: Lumbar radiculopathy Chronic pain syndrome Spondylosis of lumbosacral region, unspecified spinal osteoarthritis complication status The patient s history, physical exam and personal review of imaging indicate diagnoses of the above items. Plan description: - Discussed medication adjustments, we will continue gabapentin 1200 mg 3 times a day, once she is off her pain medications from her physician postoperatively, we discussed that we can consider weaning this to see if we can wean off neuropathic pain medications or at least to a lower dose - Continue tizanidine at current dose -Encourage simple exercises for right foot drop as she is not able to fully engage in formal physical therapy for 3 months per her report - Follow-up in 3 months or sooner if needed Counseling: The patient was counseled regarding diagnostic results, instructions for management, risk factor reductions, prognosis, patient and family education, impressions, risk and benefits of treatment options, as well as adherence to current treatment regimen. The importance of physical therapy/core strengthening was discussed in regard to an appropriate level for the patient to participate in currently, as well as progress as able. Nicotine and alcohol use were reviewed and discussed as appropriate in relation to cessation and abstinence as indiciated, time spent for smoking cessation counseling when appropriate is 3-10 minutes for F17.200 nicotine dependence. Appropriate use of opioid medications if prescribed as well as adherance and compliance to routine screening and avoidance of any medication that causes side effects in combination such as benzodiazepines. OARRS reviewed when indicated and naloxone offered if opioid medication prescribed. All questions and concerns were addressed during clinical visit. Patient verbalized understanding and agreement with the current plan and counselling. The patient was invited to contact us back anytime with any questions or concerns and follow-up with us in the future. Latisha Rabago CMA 07/20/24 8:40 AM documented in this encounter [facility] Work Phone: 06-27-2024 Discharge summary [facility] 06-27-2024 Radiology Diagnostic study note [facility] Imaging Services [address] [place] [address] Spine Lumbar without Contrast MR#: [id number] Acct: [id number] Name: KENDALL VASQUES Rep #: [id number] : 1985 F 38 From: Fermín Gee MD PCP: RIGOBERTO GarciaC Status: REG ER Study:Spine Lumbar without Contrast Date of E xam: 06/27/24 Exam# [id number] Ordering Dr: Rashid Nevarez DO PROCEDURE: SPINE LUMBAR WITHOUT CONTRAST 06/27/2024 REASON FOR EXAM: RECENT BACK SURGERY RULE OUT HARDWARE FAILURE TECHNIQUE: Lumbar spine CT without contrast. Coronal and Sagittal reconstruction series were provided. One or more dose reduction techniques were used (e.g., Automated exposure control, adjustment of the mA and/or kV according to patient size, use of iterative reconstruction technique COMPARISON: CT abdomen and pelvis 03/10/2024. RADIATION DOSE SUMMARY: CTDlvol: 16.62 mGy DLP: 691.69 mGycm FINDINGS: Status post L5-S1 anterior intervertebral disc spacer/replacement appears intactand anatomic. Endplate lucency with surrounding sclerosis at the inferior aspect of L5 in the area of anchor screw was previously seen prior to hardware placement on the CT abdomen and pelvis and is consistent with pre-existing degenerative endplate change. No fracture or malalignment. Small calcification centrally within the left kidney axial 28 suggest a small nonobstructing intrarenal stone. Presacral stranding, edema with a small amount tracking along the visualized left pelvic sidewall which is associated with a few small foci of air may represent postsurgical changes. No CT evidence of significant appearing central canal narrowing. CT/Spine Lumbar without Contrast IMPRESSION: Status post L5-S1 anterior intervertebral disc spacer/replacement appears intactand anatomic. Endplate lucency with surrounding sclerosis at the inferior aspect of L5 in the area of anchor screw was previously seen prior to hardware placement on the CT abdomen and pelvis and is consistent with pre-existing degenerative endplate change. No fracture or malalignment. Presacral stranding, edema with a small amount tracking along the visualized left pelvic sidewall which is associated with a few small foci of air may represent postsurgical changes. Reading Location: [facility] CC: HEALTH NAVIGATOR-C Winsome Cuevas; Dr. Bubba Nevarez DO ~ Green Building [employer] Designer: Signed [facility] 06-27-2024 Radiology Diagnostic study note [facility] Imaging Services [address] [place], [place] [id number] HIP, UNI W/ Pelvis 2-3 Views MR#: [id number] Acct: [id number] Name: KENDALL VASQUES Rep #: [id number] : 1985 F 38 From: Seema Mendoza MD PCP: RIGOBERTO GarciaC Status: REG ER Study:HIP, UNI W/ Pelvis 2-3 Views Date of Ex am: 06/27/24 Exam# [id number] Ordering Dr: Rashid Nevarez DO EXAM: XR Right Hip With Pelvis When Performed, 2 or 3 Views CLINICAL INDICATION: HIP PAIN TECHNIQUE: Two or three views of the right hip with pelvis when performed. COMPARISON: No relevant prior studies available. FINDINGS: BONES/JOINTS: Unremarkable. No acute fracture. No dislocation. SOFT TISSUES: Unremarkable. RAD/HIP, UNI W/ Pelvis 2-3 Views IMPRESSION: Normal right hip x-rays. Reading Location: [facility] CC: MÓNICA Cuevas; Dr. Bubba Nevarez DO ~ [employer] Building [employer] Designer: Signed [facility] 06-27-2024 Radiology Diagnostic study note [facility] Imaging Services [address] [place], [place] [id number] Abdomen/Pelvis W IV Cont ONLY MR#: [id number] Acct: [id number] Name: KENDALL VASQUES Rep #: [id number] : 1985 F 38 From: Seema Mendoza MD PCP: MÓNICA Garcia Status: REG ER Study:Abdomen/Pelvis W IV Cont ONLY Date of E xam: 06/27/24 Exam# [id number] Ordering Dr: Rashid Nevarez DO EXAM: CT Abdomen and Pelvis With Intravenous Contrast CLINICAL INDICATION: RLQ ABDOMINAL PAIN TECHNIQUE: Axial computed tomography images of the abdomen and pelvis with intravenous contrast. This CT exam was performed using one or more of the following dose reduction techniques: automated exposure control, adjustment of the mA and/or kV according to patient size, and/or use of iterative reconstruction technique. COMPARISON: CT Abdomen Pelvis dated 03/10/2024 FINDINGS: LUNG BASES: Unremarkable. No mass. No consolidation. ABDOMEN: LIVER: Hepatomegaly with fatty infiltration. GALLBLADDER AND BILE DUCTS: Unremarkable. No calcified stones. No ductal dilation. PANCREAS: Unremarkable. No mass. No ductal dilation. SPLEEN: Unremarkable. No splenomegaly. ADRENALS: Unremarkable. No mass. KIDNEYS AND URETERS: Unremarkable. No solid mass. No hydronephrosis. STOMACH AND BOWEL: Apparent wall thickening and fat stranding of the descendingcolon and sigmoid colon could represent colitis with contained perforation anteriorly in the left hemipelvis. No abscess. Fecal retention in the colon consistent with constipation. No obstruction. PELVIS: APPENDIX: No findings to suggest acute appendicitis. BLADDER: Unremarkable. No mass. REPRODUCTIVE: Hypodense lesion of the left adnexa, likely ovarian cysts, measuring up to 1.4 cm. ABDOMEN and PELVIS: INTRAPERITONEAL SPACE: Unremarkable. No free air. No significant fluid collection. BONES/JOINTS: Status post anterior fusion of L5-S1. No acute fracture. No dislocation. SOFT TISSUES: Unremarkable. VASCULATURE: Unremarkable. No abdominal aortic aneurysm. LYMPH NODES: Unremarkable. No enlarged lymph nodes. CT/Abdomen/Pelvis W IV Cont ONLY IMPRESSION: 1. Apparent wall thickening and fat stranding of the descending colon and sigmoid colon could represent colitis with contained perforation anteriorly in the left hemipelvis. No abscess. 2. Hepatomegaly with fatty infiltration. 3. Fecal retention in the colon consistent with constipation. Reading Location: [facility] CC: MÓNICA Cuevas; Dr. Bubba Nevarez DO ~ Green Building Materials Designer: Signed [facility] 06-27-2024 Discharge summary Note Date/Time June 27, 2024 11:37pm [facility] Medical Records Department [address] [place] [address] Emergency Department Summary 06/27/24 MR#: [id number] Acct: [id number] Name: KENDALL VASQUES Rep #:[id number] : 1985 38 From: Bubba Fitzgerald PCP: MÓNICA Garcia Status:REG ER Location: ED HPI History of Present Illness Chief Complaint: Back PFSH [facility] Medical History History of renal disease Gastric reflux Asthma PONV (postoperative nausea and vomiting) Leg cramps History of ventricular septal defect Vomiting Seizure BPPV (benign paroxysmal positional vertigo) Difficult intravenous access Non-smoker Dysautonomia-like disorder Nephrolithiasis History of echocardiogram Wears glasses Anemia Easy bruising Restless legs Back pain Seizures Dietary restriction History of IBS Shortness of breath on exertion History of edema History of irregular heartbeat Hypoglycemia Anxiety Depression Migraines Kidney disease Hypertension Home Medications ?Medication ?Instructions ?Recorded ?Last Taken ?Type albuterol sulfate 90 mcg/actuation 1 - 2 puff inhalati on Q6H PRN PRN 03/22/13 05/24/14 08:49 History aerosol inhaler (Ventolin HFA) Asthma trazodone 150 mg PO/SL QHS 12/31/20 History diphenhydramine 25 1 tab PO QHS 10/22/21 History mg-acetaminophen 500 mg tablet (Tylenol PM Extra Strength) spironolactone 25 mg tablet 25 mg PO QDAY 07/01/2304/12 History hydrochlorothiazide 12.5 mg capsule 12.5 mg PO QDAY 04/17/24 History potassium citrate 10 mEq (1,080 10 meq PO TID 10/05/23 04/17/24 History mg) tablet,extended release vortioxetine 10 mg tablet 10 mg PO QDAY 10/05/2304/17 History (Trintellix) ondansetron 4 mg disintegrating 4 mg PO Q8H PRN PRN Na usea #10 tabs 12/29/23 04/17/24 Rx tablet tizanidine 2 mg tablet 8 mg PO TID PRN PRN muscle 1 04/06/23 04/17/24 History spasticity pantoprazole 40 mg tablet,delayed 40 mg PO BID N/V, Ga stritis #60 02/25/24 04/18/24 Rx release tabs metoclopramide HCl 10 mg tablet 10 mg PO 4X/DAY PRN na usea and 03/10/24 04/10/24 Rx (Reglan) vomiting #28 tabs buspirone 5 mg tablet 5 mg PO TID PRN anxiety 03/1904/16/24 History Allergy/AdvReac Type Severity Reaction Status Date / Time amoxicillin Allergy Severe hives Verified 06/27/24 19:35 baclofen Allergy Severe incontinenc Verified 06/27/24 19:35 e codeine Allergy Hives Verified 06/27/24 19:35 metronidazole (From Flagyl) Allergy Shortness Verified 06/27/24 19:35 of breath morphine Allergy Hives Verified 06/27/24 19:35 shellfish derived Allergy Angioedema Verified 06/27/24 19:35 topiramate (From Topamax) Allergy Other Verified 06/27/24 19:35 tramadol AdvReac Severe seizures Verified 06/27/24 19:35 adhesive AdvReac Rash Verified 06/27/24 19:35 NSAIDS (Non-Steroidal AdvReac PT UNSURE Verified 06/27/24 19:35 Anti-Inflamma OF REACTION Family History Father No cardiac disease Mother No cardiac disease Other Arthritis Asthma Blood clot in vein Bowel disease Breast cancer CVA (cerebral vascular accident) Cervical cancer Depression Diabetes High cholesterol Hypertension Seizures Suicidal ideation Surgical History (Updated 06/27/24 @ 19:34 by Aylin Field) History of spinal fusion Hx of dilation and curettage History of radiofrequency ablation (RFA) of nerve of lumbar spine H/O: hysterectomy Hx of laparoscopy S/P removal of right ovary S/P tonsillectomy S/P breast lumpectomy Previous section Social History household members: spouse Smoking Status: Never smoker alcohol intake: current alcohol intake frequency: holidays/special occasions only substance use type: does not use what type of physical activity do you participate in: none EXAM Physical Exam Const Vital Signs: 06/27/24 19:25 06/27/24 22:00 Temperature 98 F Temperature Source Oral Pulse Rate 71 71 Respiratory Rate 18 16 Blood Pressure 105/64 124/59 H Blood Pressure Mean 77 80 Pulse Ox 96 96 Oxygen Delivery Method Room Air Room Air MDM MDM MDM Narrative Medical decision making narrative: HISTORY OF PRESENT ILLNESS: Chief complaint: Back pain 38-year-old female history of seizure disorder, diarrhea dysautonomia like syndrome, nephrolithiasis, vertigo, presents with acute onset of right hip pain,right lower quad abdominal pain. Patient states this afternoon she was taking anap. She states when she woke up from her nap she moved her right leg to try tocross over her left leg and she felt a pop and severe pain in the right lower quadrant right hip. Denies back pain. Patient denies any saddle anesthesia, urinary retention, bowel or bladder incontinence, lower extremity weakness, fever or IV drug use, no recent spinal manipulation or surgery, no recent urinary catheterization. Notes no urinary complaints. No fever. No vomiting. No she is in severe pain. States the pain is worse when she moves her right lower extremity. She also surgeries done at [facility]. REVIEW OF SYSTEMS: Pertinent positives: Right hip pain, right lower quadrant abdominal pain Pertinent negatives: Followed by incontinence, fever PHYSICAL EXAM: Nursing triage notes reviewed, Vital signs reviewed Constitutional: please see mdm HENT: MMM Eyes: Pupils equal round and reactive to light, Extraocular muscles intact Neck: No stridor, no JVD, full neck ROM Lungs: Clear to auscultation, No wheezing or rales. No increased work of breathing, no conversational dyspnea, no accessory muscle use, no nasal flaring. No respiratory distress noted Heart: Regular rate and rhythm, No murmurs, No rubs and No gallops, 2+ distal pulses (radial, femoral, posterior tibial) in all extremities Abdomen: Soft, right lower quadrant TTP, no rigidity, rebound or guarding, no obvious peritoneal signs, no palpable pulsatile abdominal masses, no auscultatedabdominal bruit : No CVAT Extremities: No edema Neuro: No new focal neurological deficits, cranial nerves II through XII intact,5/5 strength in all present extremities. Intact sensation to light touch in all present extremities, 2+ reflexes bilateral patella tendons. Skin: Surgical scar clean dry intact, no fluctuance induration crepitus or bullae. No purulence noted. MEDICAL DECISION MAKING: Chief Complaint: please see HPI External records reviewed: Reviewed prior imaging studies Factors affecting care: History of recent back surgery Social determinants of health: none History obtained from others: Consults: none [facility] Narrative: Patient was initially hemodynamically stable, afebrile and nontoxic-appearing. Exam with TTP over right lower quadrant and right hip I considered the following differential diagnosis: Right hip fracture dislocation, intra-abdominal perforation, obstruction, lumbar spine bony abdomen I obtained a broad lab and imaging workup to further elucidate etiology of the patient's complaints ALL IMAGES (IF OBTAINED) HAVE BEEN PERSONALLY REVIEWED AND INTERPRETED BY MYSELF. CT scan of the lumbar spine showed no traumatic malalignment or bony abnormalities CT scan of the abdomen pelvis with no evidence of intra-abdominal surgical pathology or postop infection X-ray of the patient's right hip and pelvis was read reviewed personally by myself showed no evidence of obvious bony abnormality or traumatic malalignment CBC without leukocytosis, severe anemia, no thrombocytopenia. Lipase is wnl indicating no pancreatic inflammation. CMP without evidence of acute kidney injury, significant electrolyte abnormality, anion gap to suggest end organ hypo-perfusion, no evidence of metabolic acidosis with a normal bicarbonate, no evidence of hepatobiliary obstructive pathology. Urinalysis shows no evidence of urinary inflammation suggestive of UTI Urine test is negative The synthesis of the patient's history, physical exam, labs images suggest no acute life-limiting etiology. No sign of postsurgical emergencies. She is appropriate for discharge home with close outpatient follow-up. Strict return precautions were discussed The patient and/or family, caregivers express understanding. The patient and/orfamily, caregivers agrees with the plan. Shared decision making: I will have a discussion with the patient and or visitors regarding risk/benefits of further testing or admission. They will be made aware of of the risk/benefits inherent in this decision they will be given the opportunity to voice understanding. Total critical care time today provided was at least 0 minutes. This excludes separately billable procedures. Critical care time (if documented) is secondary to the patient having high probability of clinically significant/life threatening deterioration in the patient's condition which required my urgent intervention. Impression: 1. Right hip strain 2. Postop pain Dispo: Discharge home This note was generated with [employer] dictation software. It may contain incorrectwords, spelling, and punctuation that were not noted in review of the chart prior to signing. Lab Data Labs: Laboratory Results - last 24 hr 06/27/24 06/27/24 20:20 21:17 WBC 8.2 RBC 3.87 L Hgb 11.9 L Hct 37.6 MCV 97.2 MCH 30.7 MCHC 31.6 L RDW Std Deviation 44.5 H RDW Coeff of [place] 12.6 Plt Count 182 MPV 10.9 Sodium 138 Potassium 4.4 Chloride 104 Carbon Dioxide 24.7 Anion Gap 10 BUN 13 Creatinine 0.87 Estim Creat Clear Calc 87.63 Est GFR (MDRD) Non-Af 88 BUN/Creatinine Ratio 15.4 Glucose 93 Calcium 9.2 Total Bilirubin 0.17 AST 29 ALT 16 Alkaline Phosphatase 68 Total Protein 6.2 Albumin 3.7 Globulin 2.5 Albumin/Globulin Ratio 1.5 Lipase 17 Urine Color Straw Urine Clarity Clear Urine pH 7.0 Ur Specific [place] 1.005 Urine Protein 15 H Urine Glucose (UA) Normal Urine Ketones Negative Urine Occult Blood Negative Urine Nitrite Negative Urine Bilirubin Negative Urine Urobilinogen Normal Ur Leukocyte Esterase Negative Urine RBC 0 SEEN Urine WBC 0-5 SEEN Ur Squamous Epith Cells 0-5 SEEN Urine Bacteria 2+ Urine Mucus 0 SEEN Urine Test Negative Radiography Diagnostic Testing: Clinical Impression(s) from Imaging Studies Abdomen/Pelvis CT 06/27/24 19:46 IMPRESSION: 1. Apparent wall thickening and fat stranding of the descending colon and sigmoid colon could represent colitis with contained perforation anteriorly in the left hemipelvis. No abscess. 2. Hepatomegaly with fatty infiltration. 3. Fecal retention in the colon consistent with constipation. Reading Location: [facility] Lumbar Spine CT 06/27/24 19:50 IMPRESSION: Status post L5-S1 anterior intervertebral disc spacer/replacement appears intactand anatomic. Endplate lucency with surrounding sclerosis at the inferior aspect of L5 in the area of anchor screw was previously seen prior to hardware placement on the CT abdomen and pelvis and is consistent with pre-existing degenerative endplate change. No fracture or malalignment. Presacral stranding, edema with a small amount tracking along the visualized left pelvic sidewall which is associated with a few small foci of air may represent postsurgical changes. Reading Location: [id number] Hip/Pelvis X-Ray 06/27/24 21:40 IMPRESSION: Normal right hip x-rays. Reading Location: [facility] Discharge Plan Triage Chief Complaint: Back ED Provider: Bubba Nevarez Dx/Rx/DC Orders Prescriptions: No Action spironolactone 25 mg tablet 25 mg PO QDAY tizanidine 2 mg tablet 8 mg PO TID PRN PRN (Reason: muscle spasticity) hydrochlorothiazide 12.5 mg capsule 12.5 mg PO QDAY potassium citrate 10 mEq (1,080 mg) tablet extended release 10 meq PO TID Trintellix 10 mg tablet 10 mg PO QDAY pantoprazole 40 mg tablet,delayed release (DR/EC) 40 mg PO BID Qty: 60 1RF Rx Instructions: 40 mg orally once daily 30 minutes prior to breakfast and dinner albuterol sulfate [Ventolin HFA] 1 INHALER inhaler 1 - 2 puff inhalation Q6H PRN PRN (Reason: Asthma) trazodone 150 mg PO/SL QHS diphenhydramine-acetaminophen [Tylenol PM Extra Strength] 25-500 mg Tablet 1 tab PO QHS Rx Instructions: administer while awake buspirone 5 mg tablet 5 mg PO TID PRN (Reason: anxiety) ondansetron 4 mg tablet,disintegrating 4 mg PO Q8H PRN PRN (Reason: Nausea) Qty: 10 0RF metoclopramide HCl [Reglan] 10 mg tablet 10 mg PO 4X/DAY PRN (Reason: nausea and vomiting) Qty: 28 0RF Primary Care Provider: Winsome Cuevas Referrals: Winsome Cuevas NP-C [Primary Care Provider] - Print Language: Swiss What to do if you have Problems For any increased pain, shortness of breath, bleeding, nausea or vomiting, chestpain, or any unexpected problems, contact your Primary Care Provider. Call [facility] ([phone]) or report to the closest Emergency Room. Call 911 if necessary. 06/27/24 1674 <Electronically signed by Bubba Nevarez DO> Cosigner Signature (if applicable): CC: MÓNICA Cuevas ~ Signed ADDENDUM by Dr. Bubba Nevarez DO on 06/27/24 at [id number] note the patient CT scan was read with concerning findings in the left side of the abdomen the descending colon and sigmoid colon retained perforation. Patient had no symptomatology along the descending or sigmoid colon. No left lower quadrant TTP. Suspect the imaging findings are an artifact and not related to true pathology. In addition to this patient had no elevated white blood cell count, no fever and no vital sign normalities to suggest colonic perforation. Her presenting history was purely musculoskeletal with moving the right leg causing pain in the right hip and right lower quadrant of the abdomen. I do not suspect she has abdominal perforation today. There is no indication for surgical consultation at this time 06/27/24 2578<Electronically signed by Bubba Nevarez DO> Cosigner Signature (if applicable): cc: MÓNICA Cuevas ~* Signed [facility] Work Phone: [phone] History of Present illness Narrative* Precious Nicole RN - 06/24/2024 12:41 PM EDT Patient met all goals for discharge and was given discharge instructions by RN. All questions answered. Patient aware when they last had pain meds and when they can have them again. Patient transported to private vehicle by staff on wheelchair. * Val Lane PTA - 06/24/2024 11:15 AM EDT [facility] Physical Therapy Treatment PT Discharge Recommendations: Home independent Distance Ambulated (ft): 300 Device: Rolling walker Orthopedic Precautions: Back Precautions Orthoses Applied: LSO (on 08/09) PT - OK to Discharge: Yes Fall prevention education provided including use of call light in hospital, use of appropriate assistive device, safe mobility techniques, and safety measures at home. Continue as per PT POC Subjective/Objective/Assessment/Plan DVT pumps in use. Reviewed all back precautions and brace wear/care. See below for mobility. PT goals met and ok for pt to amb ad karyl with family. Cont as per POC until discharged to home 06/24/24 1115 General Family/Caregiver Present No PT Time Calculation PT Start Time 1115 PT Stop Time 1138 PT Time Calculation (min) 23 min Precautions Medical Precautions Fall Risk Safety Interventions Call osborne within reach;ID band on;Gait belt Orthopedic Precautions Back Precautions Orthoses Applied LSO (on 08/09) Pain Assessment Pain Assessment 0-10 Pain Score 3 Pain Type Surgical pain Pain Location Abdomen Pain Orientation Anterior Cognition Overall Cognitive Status WFL Arousal/Alertness Appropriate responses to stimuli Orientation Level Oriented X4 Following Commands Follows all commands and directions without difficulty Activity Tolerance Endurance Endurance does not limit participation in activity Bed Mobility Sitting to Lying Assistance Standby assistance Lying to Sitting Assistance Standby assistance Transfers Sit to Stand Assistance Standby assistance Ambulation Walking Assistance Standby assistance Device Rolling walker Distance Ambulated (ft) 300 Curb 1 step (curb): Assistance Standby assistance Curb Management Technique/Device With walker Procedures Procedures Gait Training;Therapeutic Activity Gait Training Gait Training Time Entry 15 Gait Training Activity 1 gait training Gait Training Activity 2 stair training Therapeutic Activity Therapeutic Activity Time Entry 8 Therapeutic Activity 1 reviewed precautions Therapeutic Activity 2 brace education Therapeutic Activity 3 transfer training PT Assessment Medical Staff Made Aware Yes Plan PT - OK to Discharge Yes Goals/Education Encounter Problems Encounter Problems (Active) There are no active problems. Encounter Problems (Resolved) Template: Physical Therapy Problem: PT Short Term Goals Dates: Start: 06/23/24 Resolved: 06/24/24 Goal: Pt will perform bed mobility via log roll with CGA (Resolved) Dates: Start: 06/23/24 Expected End: 06/24/24 Resolved: 06/23/24 Outcomes Date/Time User Outcome 06/23/24 1628 Mary Lou Aguirre, PT Completed Goal: Pt will perform transfers with SBA/FWW (Resolved) Dates: Start: 06/23/24 Expected End: 06/24/24 Resolved: 06/23/24 Outcomes Date/Time User Outcome 06/23/24 1628 Mary Lou Donaldsonfe, PT Completed Goal: Pt will ambulate x150 ft with SBA/FWW (Resolved) Dates: Start: 06/23/24 Expected End: 06/24/24 Resolved: 06/24/24 Outcomes Date/Time User Outcome 06/24/[address] PTA Completed Goal: Pt will ascend/descend platform step with CGA/FWW (Resolved) Dates: Start: 06/23/24 Expected End: 06/24/24 Resolved: 06/24/24 Outcomes Date/Time User Outcome 06/24/[address] PTA Completed Goal: Pt will indicate understanding of back precautions and LSO wear/care schedule (Resolved) Dates: Start: 06/23/24 Expected End: 06/24/24 Resolved: 06/24/24 Outcomes Date/Time User Outcome 06/24/[address] PTA Completed Education Documentation Precautions, taught by Val Lane PTA at 06/24/2024 11:15 AM. Learner: Patient Readiness: Acceptance Method: Explanation, Demonstration Response: Verbalizes Understanding, Demonstrated Understanding Body Mechanics, taught by Val Lane PTA at 06/24/2024 11:15 AM. Learner: Patient Readiness: Acceptance Method: Explanation, Demonstration Response: Verbalizes Understanding, Demonstrated Understanding Mobility Training, taught by Val Lane PTA at 06/24/2024 11:15 AM. Learner: Patient Readiness: Acceptance Method: Explanation, Demonstration Response: Verbalizes Understanding, Demonstrated Understanding Explain call button use, taught by Val Lane PTA at 06/24/2024 11:15 AM. Learner: Patient Readiness: Acceptance Method: Explanation, Demonstration Response: Verbalizes Understanding, Demonstrated Understanding Teach fall prevention measures, taught by Val Lane PTA at 06/24/2024 11:15 AM. Learner: Patient Readiness: Acceptance Method: Explanation, Demonstration Response: Verbalizes Understanding, Demonstrated Understanding Education Comments No comments found. Cosigned by Nalini Miramontes PT at 06/24/2024 2:33 PM EDT * Angel Nolan RN - 06/24/2024 9:42 AM EDT Case Management Discharge Note Coordination of Care Handover Kendall Vasques : 1985 Living Arrangements: Spouse/significant other Support Systems: Extended family, Immediate family, Spouse/significant other Full Code - Default Advance Directive: Patient does not have advance directive, Patient would not like information Information Provided on Healthcare Directives: No Patient Requests Assistance: No Do we have authorization to contact this patient's emergency contact?: Yes Extended Emergency Contact Information Primary Emergency Contact: CedrickTosha Mobile Relation: Mother Electrical/Instrument Technician needed? No Secondary Emergency Contact: Silvia Vasques Mobile Relation: Spouse Preferred language: Swiss Electrical/Instrument Technician needed? No SIOH Flowsheet Completed?: Yes, no needs at this time Medication Affordability : No concerns related to payment for meds Medical Admission Information Main Diagnosis: Spinal stenosis Past Medical History: Diagnosis Date Adverse effect of anesthesia low grade fever for 24 hrs Anxiety Asthma during illness Atrioventricular septal defect (AVSD) since , does not follow with cardiology Blindness left eye Chronic kidney disease stage 2 Chronic pain disorder Depression GERD (gastroesophageal reflux disease) Irritable bowel syndrome with constipation PONV (postoperative nausea and vomiting) PTSD (post-traumatic stress disorder) Sleep apnea doesn't use cpap Wears glasses Discharge Information N/A Facility Phone Numbers for report: N/A // What day is the transport expected?: 06/25/24 Discharge plan communicated with patient and all are in agreement with discharge plan. DME on admission: Assistive Devices: Walker, Other (Comment), Shower chair (LSO brace) (DME provider is: N/A) DME ordered @ discharge: Wheeled walker and LSO Community Service(s) on admission: None New Community Referrals made to: None Discharge concerns: None Narrative Note : Patient doing well. Planned discharge home later today. Post op RX'S have been picked up. Spouse will provide transportation home Miscellaneous Information Vitals @ Discharge: Visit Vitals BP 101/65 (BP Location: Left arm, Patient Position: Lying) Pulse 62 Temp 36.6 C (97.9 F) (Temporal) Resp 16 Ht 1.626 m (64) Wt 67.8 kg (149 lb 8 oz) SpO2 100% BMI 25.66 kg/m OB Status Hysterectomy Smoking Status Never BSA 1.73 m Diet Orders: Diet Instructions Discharge Diet: Return to previous diet Patient should contact a provider if they experience Notify Provider - Detailed Symptoms If you experience a fever above 101 F, chills, persistent nausea/vomiting, chest pain, shortness ofbreath, pain or tenderness in your calf, significant swelling increase, difficulty swallowing and/or persistent bright red bleeding with clots Notify Provider - Immediate Attention If you need immediate attention, call 911 or go to the nearest emergency center Notify provider - Symptoms Return If your symptoms return or worsen Allergies: Allergies Allergen Reactions Amoxicillin Anaphylaxis Baclofen Other Slurred Speech, Lost bowel and bladder function Codeine Anaphylaxis, Hives, Itching and Nausea And Vomiting Morphine Anaphylaxis and Hives Shellfish Derived Hives, Swelling and Angioedema Shrimp Hives and Swelling Topiramate Seizures Pt tolerated Topamax on 07/17 well during inpatient stay without any symptoms Pt tolerated Topamax on 07/17 well during inpatient stay without any symptoms Pt tolerated Topamax on07/17 well during inpatient stay without any symptoms Tramadol Seizures Nsaids (Non-Steroidal Anti-Inflammatory Drug) Other Stage 2 kidney dx Adhesive Tape-Silicones Rash Mobility Status: Mobility: Immobilized/requires assist of one person Readmission Risk Score @ Discharge: Predictive Model Details 12% (Medium) Factor Value Calculated 06/24/2024 08:08 Number of active inpatient medication orders 42 IP Risk of Unplanned Readmission Model ECG/EKG order present in last 6 months Latest calcium low (8.1 mg/dL) Latest hemoglobin low (10.3 g/dL) Diagnosis of renal failure present Age 38 Charlson Comorbidity Index 2 Current length of stay 1.064 days Active ulcer inpatient medication order present * Angel Nolan RN - 06/24/2024 9:42 AM EDT Patient continues to do well. Planned discharge home later today. Spouse to arrive around 1400. D/Cfolder completed * Angel Nolan RN - 06/24/2024 8:[address] Thomas and Jade QUIGLEY rounded this am and the patient is doing well. Patient may discharge this afternoon if all goals are met and the patient is cleared per Gen Med. AM HGB 10.3 * SORAIDA Khalil - 06/24/2024 7:55 AM EDT Orthopedic Spine Daily Progress Note Chief complaint: s/p lumbar fusion Subjective: Pt seen and evaluated on rounds. Doing well. Complains of lbp. Radicular pain improved.Pt voiding without difficulty and passing flatus. Pt denies chest pain, SOB, N, V. Principal Problem: Spinal stenosis Active Problems: PONV (postoperative nausea and vomiting) Gastroesophageal reflux disease Asthma Arthritis Chronic renal insufficiency Sleep apnea Past Medical History: Diagnosis Date Adverse effect of anesthesia low grade fever for 24 hrs Anxiety Asthma during illness Atrioventricular septal defect (AVSD) since , does not follow with cardiology Blindness left eye Chronic kidney disease stage 2 Chronic pain disorder Depression GERD (gastroesophageal reflux disease) Irritable bowel syndrome with constipation PONV (postoperative nausea and vomiting) PTSD (post-traumatic stress disorder) Sleep apnea doesn't use cpap Wears glasses Past Surgical History: Procedure Laterality Date SECTION, LOW TRANSVERSE 2020 HYSTERECTOMY 2023 OOPHORECTOMY OTHER SURGICAL HISTORY 03/2024 cyst removed larynx Vital signs in last 24 hours: Temp: 36.6 C (97.9 F) (06/24 752) Heart Rate: 62 (06/24 752) Resp: 16 (06/24 752) BP: 101/65 (06/24 752) Intake/Output last 3 shifts: I/O last 3 completed shifts: In: 5646.7 (83.3 mL/kg) [P.O.:1320; I.V.:4226.7 (62.3 mL/kg); IV Piggyback:100] Out: 3175 (46.8 mL/kg) [Urine:3150 (1.3 mL/kg/hr); Blood:25] Weight: 67.8 kg Intake/Output this shift: I/O this shift: In: - Out: 500 [Urine:500] Physical Exam: Physical Exam NAD, A&ox3. Neurological Exam Motor and neurovascularly intact. Strength improved to preop, R DF 4/5, L DF 5/5. Negative homans Assessment/Plan 1 Day Post-Op s/p Procedure(s): L5-S1 Anterior lumbar interbody fusion: -Cont to progress activity through PT/OT -DVT prophylaxis-SCDS and TEDs -Cont to progress Diet -Daily dressing changes -Pain management per medical team -Bowel regimen per medical team Dispo plan: -Ok to d/c home when goals met per medicine and PT -Jade Tavarez PA-C * Delta Hernandez MD - 06/24/2024 6:00 AM EDT [facility] IN[facility]IENT PROGRESS NOTE Patient Name: Kendall Vasques : 1985 Patient [facility] #: [id number] Provider Name : Delta Hernandez MD Date Of Service : 06/24/24 Admission Diagnosis : Consult from Surgeon IMPRESSION AND PLAN : This 38 y.o. female admitted on 06/23/2024. Today is 1 Day Post-Op. I have seen the patient personally today. I have reviewed available labs and imaging results, as documented below in the results. I have reviewed available progress notes from the nursing, physical therapy, and surgical services. Prescription drug management has been provided, as outlined in the impression and plan. Status post Procedure(s): L5-S1 Anterior lumbar interbody fusion. EBL: 25 mL. A medical consult has been ordered by the surgeon for perioperative management of the patient's chronic medical conditions including the following . . . Anemia: - Acute, stable problem. - The patient is asymptomatic. - No current indications for blood transfusion. Continuous monitoring with pulse oximetry, blood pressure, and heart rate. Likely associated with surgical blood loss as well as dilution from any perioperative IV fluids. Lab Results Component Value Date HGB 10.3 (L) 06/24/2024 HGB 12.7 06/21/2024 Hypertension: - Chronic condition. - As needed clonidine. - Blood pressure within an acceptable range on medication. BP Readings from Last 2 Encounters: 06/24/24 92/57 GERD: - Remains stable. No complaints of reflux. Depression: - Stable on postoperative treatment. No complaints of worsening depression. Chronic kidney disease: - Stage II by history. - Stable postoperatively. Continuing IV hydration. Labs reviewed. Lab Results Component Value Date CREATININE 0.78 06/24/2024 CREATININE 0.82 06/21/2024 Left eye blindness: - Congenital. - Patient reports approximately 20% vision in left eye VSD: - Noted by history. - Deemed insignificant after workup DVT prophylaxis deferred to the primary team. Recommend following the current ACCP guidelines. This patient will be considered acceptable for discharge from a medical perspective if the following criteria are met . . . - Oxygen Saturations > 90% on Room Air - Able to void without difficulty - Meets Physical Therapy goals for discharge - Passing Flatus without nausea vomiting or abdominal distention - Cleared for discharge by surgeon - Discharge medication reconciliation completed, defer post discharge management of anticoagulants,DVT prophylaxis, NSAIDs, opiates, and antibiotics to surgical service. Disposition: Progressing to discharge. MEDICATIONS acetaminophen, 1,000 mg, oral, TID gabapentin, 900 mg, oral, TID metoclopramide, 10 mg, oral, q8h Or metoclopramide, 10 mg, intravenous, q8h polyetheylene glycol, 17 g, oral, Daily senna-docusate, 1 tablet, oral, BID spironolactone, 25 mg, oral, Nightly tiZANidine, 8 mg, oral, TID traZODone, 150 mg, oral, Nightly vortioxetine, 20 mg, oral, Nightly Oxygen Therapy, Adult, sodium chloride, 100 mL/hr, Last Rate: 100 mL/hr (06/24/24 0200) PRN medications: acetaminophen, aluminum-magnesium hydroxide-simethicone, bethanechol, bisacodyL, cloNIDine, diphenhydrAMINE, HYDROmorphone, magnesium hydroxide, methocarbamoL, naloxone, ondansetron,oxyCODONE OR oxyCODONE, pantoprazole, promethazine, promethazine Subjective Patient reports pain is currently tolerable and being controlled with narcotic pain medication. REVIEW OF SYSTEMS Cardiovascular: Denies chest pain Respiratory: Denies shortness of breath or cough Gastrointestinal: Denies abdominal pain or nausea/vomiting Genitourinary: Denies urinary retention or incomplete voiding VITALS : Encounter Vitals BP: 92/57 Heart Rate: 64 Resp: 14 Temp: 36.5 C (97.7 F) Temp Source: Temporal SpO2: 95 % Weight: 67.8 kg (149 lb 8 oz) Height: 162.6 cm (64) PHYSICAL EXAM : GENERAL: No acute distress; Alert and conversational CARDIOLOGY: Regular rate and rhythm; no appreciated murmurs; no peripheral edema RESPIRATORY: CTA, normal respiratory effort; no wheezing on inspiration or exhalation ABDOMINAL: soft, still nondistended/nontender MUSCULOSKELETAL: No calf tenderness noted on palpation PSYCHIATRIC: Appropriate affect, Alert and oriented to person, place, and situation RESULTS : Intake/Output Summary (Last 24 hours) at 06/24/2024 0600 Last data filed at 06/24/2024 0402 Gross per 24 hour Intake 4666.67 ml Output 3175 ml Net 1491.67 ml LABS Results from last 7 days Lab Units 06/24/24 0528 06/21/24 1355 WBC AUTO K/mcL 9.3 8.0 HEMOGLOBIN g/dL 10.3* 12.7 HEMATOCRIT % 31.9* 40.7 PLATELETS K/mcL 158 222 LYMPHS PCT AUTO % 29.9 35.2 MONO PCT AUTO % 9.0 6.1 EOS PCT AUTO % 0.4 1.4 Results from last 7 days Lab Units 06/24/24 0528 06/23/24 0534 06/21/24 1355 SODIUM mmol/L 139 -- 139 POTASSIUM mmol/L 3.6 -- 4.2 CHLORIDE mmol/L 108* -- 104 CO2 mmol/L 23 -- 22 BUN mg/dL 6* -- 12 CREATININE mg/dL 0.78 -- 0.82 POCT GLUCOSE mg/dL -- 74 -- GLUCOSE mg/dL 83 -- 72 EGFR mL/min/1.73m2 100 -- 95 IMAGING Radiographic and Diagnostic studies: XR Fluoro Up To 1 Hour (Statistics)(No Report) Result Date: 06/23/2024 Narrative: This order has been auto-finalized and does not contain a result. CT Lumbar Spine wo Contrast Result Date: 06/17/2024 Narrative: Interpreted By: Clemencia Merritt, STUDY: CT LUMBAR SPINE WO IV CONTRAST 06/16/2024 5:45 pm INDICATION: Signs/Symptoms:RADICULOPATHY COMPARISON: MRI of lumbar spine from 05/20/2024 ACCESSION NUMBER(S): [id number] ORDERING CLINICIAN: ZULEIMA THOMAS TECHNIQUE: Axial CT images of the lumbar spineare obtained. Axial, coronal and sagittal reconstructions are provided for review. FINDINGS: There is minimal retrolisthesis of L5 over S1. The vertebral bodies demonstrate expected height. There is a prominent Schmorl's node involving inferior endplate of L5 and a tiny Schmorl's node involving superior endplate of S1. There is mild surrounding endplate sclerosis. There is no evidence of a pars interarticularis defect. At L5-S1 there is a circumferential disc bulge with osteophytic spurring. There is no central canal stenosis. There is mild bilateral neural foraminal narrowing. Mild bilateralneural foraminal narrowing is also noted at L4-L5 and L3-L4 levels. No central canal stenosis is seen throughout lumbar region. Visualized lung bases are clear. Paraspinous soft tissues are within normal limits. Impression: Minimal retrolisthesis of L5 over S1 with spondylotic changes at L5- S1. Signed by: Clemencia Merritt 06/17/2024 1:10 PM Dictation workstation: [id number] Delta Hernandez MD * Angie Quispe RN - 06/24/2024 2:28 AM EDT Goals: Identify possible barriers to meeting goals/advancing plan of care: Stability of the patient: Moderately Stable - Low risk of patient condition declining or worsening End of Shift Summary: * Elayne Garza RN - 06/23/2024 4:02 PM EDT 06/23/24 1600 Initial Transition Plan Initial Transition Plan Home Back up Transition Plan Back up Transition plan Home Health Care Discharge Planning Contact (Name, Phone #, Relationship) for [place] Planning spouse Silvia [phone] Living Arrangements Spouse/significant other Type of Residence Private residence Assistive Devices Walker;Other (Comment);Shower chair (LSO brace) Support Systems Extended family;Immediate family;Spouse/significant other Medication Coverage Has Med Coverage Under Insurance Plan Yes Medication Affordability No concerns related to payment for meds Informed Choice Informed Choice Given? Yes Transportation What day is the transport expected? 06/25/24 Time Spent Time Spent (minutes) 20 minutes Case Management Initial Assessment Nursing Orientation Assessment: Neuro (WDL): Within Defined Limits Orientation Level: Oriented X4 Confirmed on CM assessment Contact (Name, Phone #, Relationship) for DC Planning: (P) spouse Silvia [phone] Patient Next of Kin / Surrogate Decision Maker is Spouse Silvia Advance Directive: Patient does not have advance directive, Patient would not like information Information Provided on Healthcare Directives: No Patient Requests Assistance: No Insurance provider confirmed from chart: Yes and was correct Confirmed PCP: Winsome Cuevas NP Yes and was correct Confirmed Pharmacy :Yes and was correct [facility] - [place], [place] - [address] [place] [id number] Readmission Assessment Completed?: No, does not require readmission assessment. SIOH Flowsheet Completed?: Yes, no needs at this time Medication Affordability : (P) No concerns related to payment for meds Living Situation at Admission Address confirmed from chart: Yes and was correct Living Arrangements: (P) Spouse/significant other Type of Residence: (P) Private residence Steps to enter home: 2 steps Steps within home: no steps Patient's baseline at time of admission: Home Independent (Partner or Family support within home) Support Systems: (P) Extended family, Immediate family, Spouse/significant other Assistive Devices: (P) Walker, Other (Comment), Shower chair (LSO brace) (DME provider is: N/A) Current Homecare Services: None Community [employer]: None Outside Services: None Past Services: Not addressed on initial assessment Has the patient served in the [employer]?: No, they did not serve in any branch of the [employer]. Discharge Needs Initial Transition Plan: (P) Home Back up Transition plan: (P) Home Health Care Informed Choice Given? : (P) Yes CM Sticky Note: JONATHON: 06/24- Primary D/C Plan: home Next Steps: progress with goals Decision maker: Patient Pre-cert Needed: No Needed for d/c recommendations: PT Case Management Narrative The patient lives with her spouse in a 1 level home with 1+1 SE Tub shower with SC Bidet toilet. Has a FWW and her LSO brace is already on and to be worn 08/09 except hygiene. Her has already picked up her prescriptions and she has OTC stool softeners for constipation prevention. Plan is home, no services. Her will help and then a cousin from [facility] is coming to stay next week. Time Spent (minutes): (P) 20 minutes * Mary Lou Aguirre, PT - 06/23/2024 2:12 PM EDT [facility] Physical Therapy Evaluation PT Discharge Recommendations: Home independent Distance Ambulated (ft): 150 Device: Rolling walker Orthopedic Precautions: Back Precautions Orthoses Applied: LSO (08/09) Strength RLE R Ankle Dorsiflexion: 5/5 R Ankle Plantar Flexion: 5/5 Strength LLE L Ankle Dorsiflexion: 5/5 L Ankle Plantar Flexion: 5/5 AM-PAC: * Zuleima Thomas, DO - Primary * Moises Wilson, DO - Assisting Procedure(s): L5-S1 Anterior lumbar interbody fusion Day of Surgery Fall prevention education provided including use of call light in hospital, use of appropriate assistive device, safe mobility techniques, and safety measures at home. Continue PT as per POC. In to see pt with RN permission. Pt is very pleasant and agreeable to PT services. PT educated pt in regards to B LE venous return exercises, back precautions with handout, and LSO wear/care schedule. Pt gave verbal understanding. See below for complete mobility performance details. Pt left supine in bed with B DVT pumps on, cooling pad inside of the front of her LSO, call light/phone within reach and all needs met. Patient Active Problem List Diagnosis Spinal stenosis PONV (postoperative nausea and vomiting) Gastroesophageal reflux disease Asthma Arthritis Chronic renal insufficiency Sleep apnea Past Medical History: Past Surgical History: Past Medical History: Diagnosis Date Adverse effect of anesthesia low grade fever for 24 hrs Anxiety Asthma during illness Atrioventricular septal defect (AVSD) since , does not follow with cardiology Blindness left eye Chronic kidney disease stage 2 Chronic pain disorder Depression GERD (gastroesophageal reflux disease) Irritable bowel syndrome with constipation PONV (postoperative nausea and vomiting) PTSD (post-traumatic stress disorder) Sleep apnea doesn't use cpap Wears glasses Past Surgical History: Procedure Laterality Date SECTION, LOW TRANSVERSE 2020 HYSTERECTOMY 2023 OOPHORECTOMY OTHER SURGICAL HISTORY 03/2024 cyst removed larynx Objective 06/23/24 1412 General Family/Caregiver Present No PT Time Calculation PT Start Time 1412 PT Stop Time 1444 PT Time Calculation (min) 32 min Precautions Medical Precautions Fall Risk Safety Interventions Call osborne within reach;Gait belt Orthopedic Precautions Back Precautions Orthoses Applied LSO (08/09) Pain Assessment Pain Assessment 0-10 Pain Score 7 Pain Type Acute pain Pain Location Abdomen Pain Orientation Anterior Pain Descriptors Cramping;Shooting Pain Interventions Repositioned;Cold applied;RN notified (Comment);Ambulation/increased activity Cognition Arousal/Alertness Appropriate responses to stimuli Orientation Level Oriented X4 Following Commands Follows all commands and directions without difficulty Home Living Type of Home House Lives With Spouse Home Adaptive Equipment Walker - rolling Home Layout One level Home Access Stairs to enter without rails Entrance Stairs-Number of Steps 1+1 platform ADITYA Prior Function Level of [place] Independent with mobility and functional transfers Prior Function Comments Pt reporting R LE weakness prior to surgery with bouts of buckling that lead to falls Sensation Light Touch No apparent deficits Proprioception Proprioception No apparent deficits Bed Mobility Sitting to Lying Assistance Contact guard Sitting to Lying Deficit Verbal cueing Lying to Sitting Assistance Standby assistance Lying to Sitting Deficit Verbal cueing Bed Mobility Comments VC's for log roll sequencing Transfers Sit to Stand Assistance Standby assistance Sit to Stand Deficit Verbal cueing Transfer Comments VC's for safe hand placement with FWW Ambulation Walking Assistance Contact guard;Standby assistance Device Rolling walker Distance Ambulated (ft) 150 Comments Pt progressing from CGA to SBA ambulating with steady, step-through gait pattern Strength RLE R Ankle Dorsiflexion 5/5 R Ankle Plantar Flexion 5/5 Strength LLE L Ankle Dorsiflexion 5/5 L Ankle Plantar Flexion 5/5 PT Assessment PT Assessment Results Impaired gait;Decreased mobility;Pain Prognosis Excellent Evaluation/Treatment Tolerance Patient tolerated treatment well Medical Staff Made Aware Yes Comments VITA Russo notified of pt's pain and mobility performance Plan Treatment/Interventions Functional transfer training;Patient/family training;Equipment eval/education;Bed mobility;Gait training;Compensatory technique education;Continued evaluation PT Plan Skilled PT PT Frequency 7 days per week PT Duration of Sessions PRN PT Treatments per day 1-2 times per day PT Discharge Recommendations Home independent PT - Evaluation Status Complete PT Evaluation Time Entry PT Evaluation (Moderate) Time Entry 15 Treatment performed during evaluation: Gait Training Gait Training Time Entry: 17 Gait Training Activity 1: gait training with FWW Therapeutic Activity Therapeutic Activity 1: education Therapeutic Activity 2: B LE VRE Therapeutic Activity 3: bed mobility via log roll Therapeutic Activity 4: readjusted LSO Therapeutic Activity 5: transfer training with FWW Goals and Education Goals: Education: Encounter Problems Encounter Problems (Active) Template: Physical Therapy Problem: PT Short Term Goals Dates: Start: 06/23/24 Goal: Pt will perform bed mobility via log roll with CGA (Resolved) Dates: Start: 06/23/24 Expected End: 06/24/24 Resolved: 06/23/24 Outcomes Date/Time User Outcome 06/23/24 1628 Mary Lou Aguirre, PT Completed Goal: Pt will perform transfers with SBA/FWW (Resolved) Dates: Start: 06/23/24 Expected End: 06/24/24 Resolved: 06/23/24 Outcomes Date/Time User Outcome 06/23/24 1628 Mary Lou Aguirre, PT Completed Goal: Pt will ambulate x150 ft with SBA/FWW Dates: Start: 06/23/24 Expected End: 06/24/24 Outcomes Date/Time User Outcome 06/23/24 1628 Mary Lou Aguirre, PT Progressing Goal: Pt will ascend/descend platform step with CGA/FWW Dates: Start: 06/23/24 Expected End: 06/24/24 Outcomes Date/Time User Outcome 06/23/24 1628 Mary Lou Aguirre, PT Progressing Goal: Pt will indicate understanding of back precautions and LSO wear/care schedule Dates: Start: 06/23/24 Expected End: 06/24/24 Outcomes Date/Time User Outcome 06/23/24 1628 Mary Lou Aguirre PT Progressing Encounter Problems (Resolved) There are no resolved problems. Education Documentation Precautions, taught by Mary Lou Aguirre PT at 06/23/2024 4:29 PM. Learner: Patient Readiness: Acceptance Method: Explanation, Demonstration, Handout Response: Verbalizes Understanding, Demonstrated Understanding Body Mechanics, taught by Mary Lou Aguirre PT at 06/23/2024 4:29 PM. Learner: Patient Readiness: Acceptance Method: Explanation, Demonstration, Handout Response: Verbalizes Understanding, Demonstrated Understanding Mobility Training, taught by Mary Lou Aguirre PT at 06/23/2024 4:29 PM. Learner: Patient Readiness: Acceptance Method: Explanation, Demonstration, Handout Response: Verbalizes Understanding, Demonstrated Understanding Explain call button use, taught by Mary Lou Aguirre PT at 06/23/2024 4:29 PM. Learner: Patient Readiness: Acceptance Method: Explanation Response: Verbalizes Understanding Teach fall prevention measures, taught by Mary Lou Aguirre PT at 06/23/2024 4:29 PM. Learner: Patient Readiness: Acceptance Method: Explanation Response: Verbalizes Understanding Education Comments No comments found. * Delta Hernandez MD - 06/23/2024 8:59 AM EDT [facility] INPATIENT PROGRESS NOTE Patient Name: Kendall Vasques : 1985 Patient Provider Name : Delta Hernandez MD Date Of Service : 06/23/24 Admission Diagnosis : Consult from Surgeon IMPRESSION AND PLAN : This 38 y.o. female admitted on 06/23/2024. Today is Day of Surgery. Please see this patient's preoperative History & Physical for details and specifics regarding the PMH, PSH, FH, SH, Allergies, and Medications. I have seen the patient personally today. I have reviewed available labs and imaging results, as documented below in the results. I have reviewed available progress notes from the nursing, physical therapy, and surgical services. Prescription drug management has been provided, as outlined in the impression and plan. Status post Procedure(s): L5-S1 Anterior lumbar interbody fusion. EBL: 25 mL. A medical consult has been ordered by the surgeon for perioperative management of the patient's chronic medical conditions including the following . . . Hypertension: - Chronic condition. - As needed clonidine. - Blood pressure reviewed. BP Readings from Last 2 Encounters: 06/23/24 102/67 GERD: - Plans to follow for any symptoms or exacerbations. Depression: - Plans to restart the patient's home depression treatment and monitor. Chronic kidney disease: - Stage II by history. - Chronic condition. Following urine output and labs. Nephrotoxic agents should be avoided, if possible. Lab Results Component Value Date CREATININE 0.82 06/21/2024 Left eye blindness: - Congenital. - Patient reports approximately 20% vision in left eye VSD: - Noted by history. - Deemed insignificant after workup DVT prophylaxis deferred to the primary team. Recommend following the current ACCP guidelines. This patient will be considered acceptable for discharge from a medical perspective if the following criteria are met . . . - Oxygen Saturations > 90% on Room Air - Able to void without difficulty - Meets Physical Therapy goals for discharge - Passing Flatus without nausea vomiting or abdominal distention - Cleared for discharge by surgeon - Discharge medication reconciliation completed, defer post discharge management of anticoagulants,DVT prophylaxis, NSAIDs, opiates, and antibiotics to surgical service. Disposition: Progressing to discharge. MEDICATIONS clindamycin, 900 mg, intravenous, q8h dexAMETHasone, 8 mg, intravenous, Once lidocaine, 0.2 mL, intradermal, Once metoclopramide, 10 mg, oral, q8h Or metoclopramide, 10 mg, intravenous, q8h Oxygen Therapy, Adult, PRN medications: albuterol, diazePAM, diphenhydrAMINE, fentaNYL (PF), hydrALAZINE, HYDROmorphone, meperidine, ondansetron (ZOFRAN-ODT) disintegrating tablet OR ondansetron, prochlorperazine OR prochlorperazine OR prochlorperazine Subjective Patient reports pain is currently present but being treated the PACU. Pain control treatment to continue on the floor. REVIEW OF SYSTEMS Cardiovascular: Denies chest pain Respiratory: Denies shortness of breath or cough Gastrointestinal: Denies abdominal pain or nausea/vomiting Genitourinary: Denies urinary retention or incomplete voiding VITALS : Encounter Vitals BP: 102/67 Heart Rate: 97 Resp: 20 Temp: 36.7 C (98 F) Temp Source: Temporal SpO2: 100 % Weight: 67.8 kg (149 lb 8 oz) Height: 162.6 cm (64) O2 Delivery Method: Nasal cannula O2 Flow Rate (L/min): 2 L/min PHYSICAL EXAM : GENERAL: No acute distress; Alert and conversational CARDIOLOGY: Regular rhythm, no tachycardia; No edema RESPIRATORY: Clear to auscultation bilaterally; No accessory respiratory muscle use noted; No wheezing ABDOMINAL: Non-tender to palpation; nondistended MUSCULOSKELETAL: No calf tenderness noted on palpation PSYCHIATRIC: Appropriate affect, Alert and oriented to person, place, and situation RESULTS : Intake/Output Summary (Last 24 hours) at 06/23/2024 0859 Last data filed at 06/23/2024 0853 Gross per 24 hour Intake 2000 ml Output 225 ml Net 1775 ml LABS Results from last 7 days Lab Units 06/21/24 1355 WBC AUTO K/mcL 8.0 HEMOGLOBIN g/dL 12.7 HEMATOCRIT % 40.7 PLATELETS K/mcL 222 LYMPHS PCT AUTO % 35.2 MONO PCT AUTO % 6.1 EOS PCT AUTO % 1.4 Results from last 7 days Lab Units 06/23/24 0534 06/21/24 1355 SODIUM mmol/L -- 139 POTASSIUM mmol/L -- 4.2 CHLORIDE mmol/L -- 104 CO2 mmol/L -- 22 BUN mg/dL -- 12 CREATININE mg/dL -- 0.82 POCT GLUCOSE mg/dL 74 -- GLUCOSE mg/dL -- 72 EGFR mL/min/1.73m2 -- 95 IMAGING Radiographic and Diagnostic studies: XR Fluoro Up To 1 Hour (Statistics)(No Report) Result Date: 06/23/2024 Narrative: This order has been auto-finalized and does not contain a result. CT Lumbar Spine wo Contrast Result Date: 06/17/2024 Narrative: Interpreted By: Clemencia Merritt, STUDY: CT LUMBAR SPINE WO IV CONTRAST 06/16/2024 5:45 pm INDICATION: Signs/Symptoms:RADICULOPATHY COMPARISON: MRI of lumbar spine from 05/20/2024 ACCESSION NUMBER(S): [id number] ORDERING CLINICIAN: ZULEIMA THOMAS TECHNIQUE: Axial CT images of the lumbar spineare obtained. Axial, coronal and sagittal reconstructions are provided for review. FINDINGS: There is minimal retrolisthesis of L5 over S1. The vertebral bodies demonstrate expected height. There is a prominent Schmorl's node involving inferior endplate of L5 and a tiny Schmorl's node involving superior endplate of S1. There is mild surrounding endplate sclerosis. There is no evidence of a pars interarticularis defect. At L5-S1 there is a circumferential disc bulge with osteophytic spurring. There is no central canal stenosis. There is mild bilateral neural foraminal narrowing. Mild bilateralneural foraminal narrowing is also noted at L4-L5 and L3-L4 levels. No central canal stenosis is seen throughout lumbar region. Visualized lung bases are clear. Paraspinous soft tissues are within normal limits. Impression: Minimal retrolisthesis of L5 over S1 with spondylotic changes at L5- S1. Signed by: Clemencia Merritt 06/17/2024 1:10 PM Dictation workstation: [id number] Delta Hernandez MD documented in this encounterSelect [facility] [id number] Hospital course Narrative* Angel Nolan RN - 06/23/2024 3:58 PM EDT [facility]TH[facility]INES DR THOMAS FOLLOW UP APPOINTMENT ORTHONEURO: FOR ANY QUESTIONS OR CONCERNS [phone] FOLLOW SURGEON INSTRUCTION SHEETS AND RX INSTRUCTIONS -PROHIBITED FOR 12 WEEKS ANY Anti-Inflammatories to promote fusion healing.. -Use [id number] stool softeners to prevent constipation WEAR NIKI HOSE FOR 4 WEEKS FOLLOWING SURGERY FOR BLOOD CLOT PREVENTION LUMBAR BRACE AROUND THE CLOCK EXCEPT REMOVE FOR SHOWERING NO BENDING , LIFTING MORE THAN 5 POUNDS, OR TWISTING CALL TO SCHEDULE A 4 WEEK FOLLOW UP APPOINTMENT IF NOT ALREADY SCHEDULED. CONFIRM OFFICE LOCATION WHEN SCHEDULING CALL SOONER FOR ANY QUESTIONS OR CONCERNS [phone] * Padma Ramos RN - 06/22/2024 8:28 AM EDT Pre-Surgery Instructions: Medication Instructions diphenhydrAMINE-acetaminophen (TYLENOL PM) 25-500 mg per tablet Continue to take as ordered/prescribed by your pcp gabapentin (NEURONTIN) 300 mg capsule Take morning of surgery with sip of water, no other fluids hydroCHLOROthiazide (MICROZIDE) 12.5 mg capsule Continue to take as ordered/prescribed by your pcp HYDROcodone-acetaminophen (NORCO) 5-325 mg per tablet Continue to take as ordered/prescribed by your pcp methocarbamoL (ROBAXIN) 500 mg tablet Continue to take as ordered/prescribed by your pcp ondansetron ODT (ZOFRAN-ODT) 8 mg disintegrating tablet Continue to take as ordered/prescribed by your pcp promethazine (PHENERGAN) 12.5 mg tablet Continue to take as ordered/prescribed by your pcp tiZANidine (ZANAFLEX) 4 mg capsule Continue to take as ordered/prescribed by your pcp traZODone (DESYREL) 150 mg tablet Continue to take as ordered/prescribed by your pcp Trintellix 20 mg tablet Continue to take as ordered/prescribed by your pcp acetaminophen (TYLENOL) 500 mg tablet Continue to take as ordered/prescribed by your pcp pantoprazole (PROTONIX) 40 mg EC tablet Take morning of surgery with sip of water, no other fluids spironolactone (ALDACTONE) 25 mg tablet Continue to take as ordered/prescribed by your pcp Additional Instructions: Instructions to prepare for surgery: Increase water intake day PRIOR to surgery. Eat light meals or follow surgeon specific food instructions day PRIOR to surgery. At Midnight, nothing is allowed in your mouth. NO food, water, gum, candy, coffee, mints, tobacco, NOTHING AFTER MIDNIGHT. When you wake up, brush your teeth and use mouthwash. Don't swallow. Take small sip of water with meds that are to be taken DOS. Shower night prior and morning of surgery with antibiotic cleanser OR Dial antibacterial soap (as designated by surgeon). No lotions, creams, powders on your skin. You may wear deodorant (unless surgery is on your shoulder or breast(s)). No shaving surgical site (within 48 hours of surgery). Remove all jewelry, piercings and leave that at home. Leave valuable at home. Wear loose fitting clothes. Bring photo ID, medical insurance card, and copay as needed when you check in for surgery. In addition, bring any of the following: CPAP, a COPY of living will/ medical POA, glasses, case, hearing aid container, shoulder sling, back brace, walker, cervical collar. Leave walker &/or cane (unless needed prior to surgery) and overnight bag in the car until after your procedure when you are assigned a room. Surgical times are subject to change up until 5:30pm the evening prior to your surgery. Check in at sales receptionist desk at [address] [place] [address]. If Outpatient, these additional instructions apply: An adult must stay with you the whole time you are in the hospital and drive you home. An adult must stay with you at home for 24 hours after receiving anesthesia. documented in this encounterSelect [facility]ty [facility] - [id number] Procedure note* Moises Wilson DO - 06/23/2024 7:07 AM EDT DATE OF SERVICE: 23 Jun 2024 PREOPERATIVE DIAGNOSIS: Spondylolisthesis L 5-1. POSTOPERATIVE DIAGNOSIS: Spondylolisthesis L5-1. PROCEDURES: 1. Anterior lumbar interbody fusion, L5-S1. 2. Insertion of cage, L5-S1. 3. Instrumentation L5-1 4. C-arm fluoroscopy. 5. Use of bioprosthetic material. 6. Transverse abdominal plane block. SURGEON: Moises Wilson DO, [facility] SURGEON: Zuleima Thomas DO ANESTHESIA: General. BLOOD LOSS: 50 mL. DRAINS: None. SUMMARY OF PROCEDURE: After informed consent was obtained from the patient, he was taken to the operative theater where the Department of Anesthesia provided general anesthesia with endotracheal tube. Llanes catheter, SCDs, pulse oximetry was placed on the great toes. They were placed in supine position. C-arm fluoroscopy was brought in. We externally marked the L5-S1 segment. They were then cleaned and draped in sterile manner, first with alcohol, chlorhexidine, Hibiclens, sterile towels, drape sheet, and Viadrape. A 15 blade scalpel was used to make a Pfannenstiel incision. Bovie cautery was used for hemostasis in the subcutaneous tissue down through the anterior rectus sheath. We freed up the rectus muscle superiorly and inferiorly, went back to the midline, elevated the left rectus muscle, went laterally tothe left, opened up the arcuate ligament entering into the retroperitoneum. Utilizing a combinationof sharp, electric, and blunt dissection, abdominal contents including left ureter were mobilized to the right of midline. Bookwalter self-retaining retractor with radiolucent blades was inserted. Middle sacral artery and vein was identified, taken down with bipolar cautery. We further mobilized the left common iliac vein given its full and adequate exposure of the L5-S1 segment. A marker was placed. We confirmed the level, marked the midline, turned the procedure over to Dr. Thomas. Please see his dictation for details regarding the discectomy, insertion of cage, and instrumentation at L5-S1. Once he was completed with his portion, the area was irrigated and dried. Hemostasis was confirmed. We prepared for closure. 30 mL of 0.5% Marcaine was used to perform a transversus abdominal plane block under direct visualization of the nerve plexus. 0 Vicryl sutures were then used to reapproximatethe rectus muscle in a horizontal mattress fashion. The area was irrigated and dried. #1 looped PDSwas used to close the anterior rectus sheath in a running fashion. The area was irrigated and dried. 2-0 Vicryl was used to approximate subcutaneous tissue in 2 layers in a running fashion, 3-0 Monocryl was used to approximate the skin in running subcuticular fashion. Prineo tape was applied. INDICATIONS AND GROSS FINDINGS: The patient is a 38-year-old female who presents with back pain and bilateral lower extremity radicular symptoms. They have been through conservative management. They are failing to show improvement.They now presents for definitive intervention. We were asked to see him in regard to the anterior ap proach to the lumbar spine as part of a combined anterior and posterior fusion. Risks and benefits were discussed with the patient and his family. He was agreeable to the above-mentioned plan. He wastaken to the operative theater where under general anesthesia, we would externally abner the L5-S1 segment. We used a Pfannenstiel incision to enter into the retroperitoneum. We continued our dissection down, swept the abdominal contents including the left ureter to the right. We could now palpate and visualize the sacral promontory. A marker was placed. We confirmed the level. The left common iliac vein was soft and compressible, covered approximately 60% of the disc space. Once we confirmed the level, we turned the procedure over to Dr. Thomas. We did stay and assist at his request. Once he was completed, we would close primarily as described above. We did perform a transversus abdominal plane block for pain management. 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 female who is having surgery for M43.17 M54.16 M54.5 M51.26. Surgeon(s) & Alcoholism Worker(s) * Zuleima Thomas DO - Primary * Moises Wilson DO - Assisting Physician Alcoholism Worker: SORAIDA Khalil Staff Product Line Manager: Cecilia Barron RN; Aisha Villa RN; Reina Saleh RN Physician Alcoholism Worker: SORAIDA Khalil Lay Up Operator: John Stewart Scrub Person: Tameka Yoon Assistive Person: Dariana Alberto RN; Maria Luz Galo Anesthesia: * No anesthesia type entered * ASA: ASA status not filed in the log. Estimated Blood Loss: 25 mL Drains: Urethral Catheter Double-lumen 16 Fr. (Active) Urinary Catheter Output (mL) 0 mL 06/23/24 0853 Specimen: Findings: See post operative note Complications: For complications see post op note Disposition: PACU - hemodynamically stable. Condition: stable * Zuleima Thomas DO - 06/23/2024 6:36 AM EDT DATE OF SERVICE: 06/23/2024 PREOPERATIVE DIAGNOSES: 1. Acquired spondylolisthesis, retrolisthesis L5-S1. 2. Bulging disc L5-S1. 3. Spinal stenosis L5-S1. 4. Lower extremity radiculopathy, right greater than left. POSTOPERATIVE DIAGNOSES: 1. Acquired spondylolisthesis, retrolisthesis L5-S1. 2. Bulging disc L5-S1. 3. Spinal stenosis L5-S1. 4. Lower extremity radiculopathy, right greater than left. PROCEDURES: 1. Anterior lumbar interbody fusion L5-S1. 2. Osseous interbody cage L5-S1. 3. Osseous instrumentation anterior L5-S1. 4. Infused BMP. SURGEON: DO SANTIAGO Warner FOR EXPOSURE AND WHEEL CUTTER: Dr. Tripp Wilson. SECOND ASSIST: Jade Dominguez PA-C ANESTHESIA: General. INDICATIONS: The patient is a 38-year-old female who presents with complaint of severe back pain and right greater than left leg pain. Complains of intermittent numbness and weakness. Denies any bowel or bladder changes. Denies any fever, chills, or other constitutional symptoms. She has failed conservative treatment with epidural injections, physical therapy, and activity modification. Plain x-rays show retrolisthesis L5-S1. Disc heights above look to be well maintained. She has loss of disc height at L5-S1. MRI shows bulging of the disc and some stenosis at L5-S1. Discs above look to be well maintained.No fractures. PHYSICAL EXAMINATION: She has decreased flexion and extension secondary to back pain. Pulses are palpable, skin is warm to touch. She has 3/5 strength on the right in the EHL and dorsiflexor. Pulses are palpable, skin is warm to touch. Decreased sensation right leg mostly in the L5 distribution. Pulses are palpable, skin is warm to touch. INTRAOPERATIVE FINDINGS: She was noted to have significant loss of disc height and instability at the L5- S1 level. After anterior discectomy and interbody grafting, excellent disc height restitution was obtained. We were able to partially reduce her retrolisthesis. Bone quality felt good. No dural leaks were appreciated. Dr. Wilson performed the exposure due to his expertise as a vascular surgeon. His dictation will illustrate the exposure and closure. He was present throughout, assisted with soft tissue protection and visualization. DESCRIPTION OF PROCEDURE: The patient was taken to the OR suite and given a general anesthetic by Anesthesia. She was placed on a well-padded OR frame in a supine position. Arms were stabilized. Bony landmarks were outlined and bony prominences were well padded. Bony landmarks were outlined under image intensification. The abdomen was sterilely prepped and draped free in the usual surgical fashion. A retroperitoneal approach was performed by Dr. Wilson. The L5-S1 level was exposed. A self-retaining Bookwalter retractor was inserted. Care was taken to protect the anterior great vessels. Once it was exposed, the levelwas confirmed under lateral image. Midline was marked under AP image. The wound was copiously irrigated with normal saline. Blunt tip retractor was used to protect the anterior great vessels. An en bloc anterior discectomy was then performed with a sharp knife. Discectomy was then completed back tothe posterior annulus, which was confirmed under the lateral image. Once that was done, the disc space was irrigated. Trials were then sequentially placed. It was decided that a 12-degree 15-mm high-cage would be satisfactory. Trial was removed. Disc space was irrigated. The cage was packed with Infuse sponge and tapped into position. Lateral image showed it to be in excellent position and alignment. Hand drill was used to drill the two screw holes at S1 and two 25-mm screws were placed at S1. The hand drill was used to drill the two screw holes at L5 and a 30-mm screw was placed at L5. AP and lateral image also showed that construct to be in excellent position and alignment. The cage was well positioned in front of the foramen. The anterior locking plate was then secured. AP and lateral images showed the construct to be in excellent position and alignment. The wound was copiously irrigated with normal saline. Good hemostasis was noted. Soft tissues were inspected and found to be freeof pathology. Thrombin was placed as well as fibular over the cage. The wound was then closed in layers by Dr. Wilson. It was injected with Marcaine. Dermabond was applied. A sterile bulky dressingwas placed. The patient was awakened, extubated, and transferred to the recovery room having tolerated the above procedure well and in stable condition. She was moving all extremities x4 prior to leaving the OR. Case was clean and elective. SPECIMENS: None. DRAINS: None. SPONGE COUNT: Accurate. BLOOD LOSS: 25 mL. FLUIDS: 1300 mL of crystalloid. URINE OUTPUT: 200 mL. COMPLICATIONS: None. ZULEIMA THOMAS DO EST TT: 06/23/2024 10:45:00 EST ROSENDA/BREE cc: Moises Yanes DO documented in this [facility]05-08-2025 Surgery Surgical operation note* Moises Wilson DO - 06/23/2024 7:07 AM EDT DATE OF SERVICE: 23 Jun 2024 PREOPERATIVE DIAGNOSIS: Spondylolisthesis L 5-1. POSTOPERATIVE DIAGNOSIS: Spondylolisthesis L5-1. PROCEDURES: 1. Anterior lumbar interbody fusion, L5-S1. 2. Insertion of cage, L5-S1. 3. Instrumentation L5-1 4. C-arm fluoroscopy. 5. Use of bioprosthetic material. 6. Transverse abdominal plane block. SURGEON: Moises Wilson DO, [facility] SURGEON: Zuleima Thomas DO ANESTHESIA: General. BLOOD LOSS: 50 mL. DRAINS: None. SUMMARY OF PROCEDURE: After informed consent was obtained from the patient, he was taken to the operative theater where the Department of Anesthesia provided general anesthesia with endotracheal tube. Llanes catheter, SCDs, pulse oximetry was placed on the great toes. They were placed in supine position. C-arm fluoroscopy was brought in. We externally marked the L5-S1 segment. They were then cleaned and draped in sterile manner, first with alcohol, chlorhexidine, Hibiclens, sterile towels, drape sheet, and Viadrape. A 15 blade scalpel was used to make a Pfannenstiel incision. Bovie cautery was used for hemostasis in the subcutaneous tissue down through the anterior rectus sheath. We freed up the rectus muscle superiorly and inferiorly, went back to the midline, elevated the left rectus muscle, went laterally tothe left, opened up the arcuate ligament entering into the retroperitoneum. Utilizing a combinationof sharp, electric, and blunt dissection, abdominal contents including left ureter were mobilized to the right of midline. Bookwalter self-retaining retractor with radiolucent blades was inserted. Middle sacral artery and vein was identified, taken down with bipolar cautery. We further mobilized the left common iliac vein given its full and adequate exposure of the L5-S1 segment. A marker was placed. We confirmed the level, marked the midline, turned the procedure over to Dr. Thomas. Please see his dictation for details regarding the discectomy, insertion of cage, and instrumentation at L5-S1. Once he was completed with his portion, the area was irrigated and dried. Hemostasis was confirmed. We prepared for closure. 30 mL of 0.5% Marcaine was used to perform a transversus abdominal plane block under direct visualization of the nerve plexus. 0 Vicryl sutures were then used to reapproximatethe rectus muscle in a horizontal mattress fashion. The area was irrigated and dried. #1 looped PDSwas used to close the anterior rectus sheath in a running fashion. The area was irrigated and dried. 2-0 Vicryl was used to approximate subcutaneous tissue in 2 layers in a running fashion, 3-0 Monocryl was used to approximate the skin in running subcuticular fashion. Prineo tape was applied. INDICATIONS AND GROSS FINDINGS: The patient is a 38-year-old female who presents with back pain and bilateral lower extremity radicular symptoms. They have been through conservative management. They are failing to show improvement.They now presents for definitive intervention. We were asked to see him in regard to the anterior ap proach to the lumbar spine as part of a combined anterior and posterior fusion. Risks and benefits were discussed with the patient and his family. He was agreeable to the above-mentioned plan. He wastaken to the operative theater where under general anesthesia, we would externally abner the L5-S1 segment. We used a Pfannenstiel incision to enter into the retroperitoneum. We continued our dissection down, swept the abdominal contents including the left ureter to the right. We could now palpate and visualize the sacral promontory. A marker was placed. We confirmed the level. The left common iliac vein was soft and compressible, covered approximately 60% of the disc space. Once we confirmed the level, we turned the procedure over to Dr. Thomas. We did stay and assist at his request. Once he was completed, we would close primarily as described above. We did perform a transversus abdominal plane block for pain management. 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 female who is having surgery for M43.17 M54.16 M54.5 M51.26. Surgeon(s) & Alcoholism Worker(s) * Zuleima Thomas DO - Primary * Moises Wilson DO - Assisting Physician Alcoholism Worker: SORAIDA Khalil Staff Product Line Manager: Cecilia Barron RN; Aisha Villa RN; Reina Saleh RN Physician Alcoholism Worker: SORAIDA Khalil Lay Up Operator: John Stewart Scrub Person: Tameka Yoon Assistive Person: Dariana Alberto RN; Maria Luz Galo Anesthesia: * No anesthesia type entered * ASA: ASA status not filed in the log. Estimated Blood Loss: 25 mL Drains: Urethral Catheter Double-lumen 16 Fr. (Active) Urinary Catheter Output (mL) 0 mL 06/23/24 0853 Specimen: Findings: See post operative note Complications: For complications see post op note Disposition: PACU - hemodynamically stable. Condition: stable [id number] Surgery Surgical operation note* Zuleima Thomas DO - 06/23/2024 6:36 AM EDT DATE OF SERVICE: 06/23/2024 PREOPERATIVE DIAGNOSES: 1. Acquired spondylolisthesis, retrolisthesis L5-S1. 2. Bulging disc L5-S1. 3. Spinal stenosis L5-S1. 4. Lower extremity radiculopathy, right greater than left. POSTOPERATIVE DIAGNOSES: 1. Acquired spondylolisthesis, retrolisthesis L5-S1. 2. Bulging disc L5-S1. 3. Spinal stenosis L5-S1. 4. Lower extremity radiculopathy, right greater than left. PROCEDURES: 1. Anterior lumbar interbody fusion L5-S1. 2. Osseous interbody cage L5-S1. 3. Osseous instrumentation anterior L5-S1. 4. Infused BMP. SURGEON: DO SANTIAGO Warner FOR EXPOSURE AND WHEEL CUTTER: Dr. Tripp Wilson. SECOND ASSIST: Jade Dominguez PA-C ANESTHESIA: General. INDICATIONS: The patient is a 38-year-old female who presents with complaint of severe back pain and right greater than left leg pain. Complains of intermittent numbness and weakness. Denies any bowel or bladder changes. Denies any fever, chills, or other constitutional symptoms. She has failed conservative treatment with epidural injections, physical therapy, and activity modification. Plain x-rays show retrolisthesis L5-S1. Disc heights above look to be well maintained. She has loss of disc height at L5-S1. MRI shows bulging of the disc and some stenosis at L5-S1. Discs above look to be well maintained.No fractures. PHYSICAL EXAMINATION: She has decreased flexion and extension secondary to back pain. Pulses are palpable, skin is warm to touch. She has 3/5 strength on the right in the EHL and dorsiflexor. Pulses are palpable, skin is warm to touch. Decreased sensation right leg mostly in the L5 distribution. Pulses are palpable, skin is warm to touch. INTRAOPERATIVE FINDINGS: She was noted to have significant loss of disc height and instability at the L5- S1 level. After anterior discectomy and interbody grafting, excellent disc height restitution was obtained. We were able to partially reduce her retrolisthesis. Bone quality felt good. No dural leaks were appreciated. Dr. Wilson performed the exposure due to his expertise as a vascular surgeon. His dictation will illustrate the exposure and closure. He was present throughout, assisted with soft tissue protection and visualization. DESCRIPTION OF PROCEDURE: The patient was taken to the OR suite and given a general anesthetic by Anesthesia. She was placed on a well-padded OR frame in a supine position. Arms were stabilized. Bony landmarks were outlined and bony prominences were well padded. Bony landmarks were outlined under image intensification. The abdomen was sterilely prepped and draped free in the usual surgical fashion. A retroperitoneal approach was performed by Dr. Wilson. The L5-S1 level was exposed. A self-retaining Bookwalter retractor was inserted. Care was taken to protect the anterior great vessels. Once it was exposed, the levelwas confirmed under lateral image. Midline was marked under AP image. The wound was copiously irrigated with normal saline. Blunt tip retractor was used to protect the anterior great vessels. An en bloc anterior discectomy was then performed with a sharp knife. Discectomy was then completed back tothe posterior annulus, which was confirmed under the lateral image. Once that was done, the disc space was irrigated. Trials were then sequentially placed. It was decided that a 12-degree 15-mm high-cage would be satisfactory. Trial was removed. Disc space was irrigated. The cage was packed with Infuse sponge and tapped into position. Lateral image showed it to be in excellent position and alignment. Hand drill was used to drill the two screw holes at S1 and two 25-mm screws were placed at S1. The hand drill was used to drill the two screw holes at L5 and a 30-mm screw was placed at L5. AP and lateral image also showed that construct to be in excellent position and alignment. The cage was well positioned in front of the foramen. The anterior locking plate was then secured. AP and lateral images showed the construct to be in excellent position and alignment. The wound was copiously irrigated with normal saline. Good hemostasis was noted. Soft tissues were inspected and found to be freeof pathology. Thrombin was placed as well as fibular over the cage. The wound was then closed in layers by Dr. Wilson. It was injected with Marcaine. Dermabond was applied. A sterile bulky dressingwas placed. The patient was awakened, extubated, and transferred to the recovery room having tolerated the above procedure well and in stable condition. She was moving all extremities x4 prior to leaving the OR. Case was clean and elective. SPECIMENS: None. DRAINS: None. SPONGE COUNT: Accurate. BLOOD LOSS: 25 mL. FLUIDS: 1300 mL of crystalloid. URINE OUTPUT: 200 mL. COMPLICATIONS: None. ZULEIMA THOMAS DO EST TT: 06/23/2024 10:45:00 EST ROSENDA/BREE cc: Moises Yanes DO [employer] [id number] History and physical note* Zuleima Thomas DO - 06/23/2024 6:15 AM EDT History and Physical Update ( H&P completed within the previous thirty days ) I personally reviewed the History and Physical, interviewed and examined the patient prior to surgery. No changes have occurred in the patient's condition since the History and Physical was completed. [employer] Work Phone: [phone] 495-229905-08-2025 History and physical note* Zuleima Thomas DO - 06/23/2024 6:15 AM EDT History and Physical Update ( H&P completed within the previous thirty days ) I personally reviewed the History and Physical, interviewed and examined the patient prior to surgery. No changes have occurred in the patient's condition since the History and Physical was completed. documented in this encounterSelect [facility] - [id number] History of Present illness Narrative* Mesha Garcia PA-C - 06/01/2024 8:45 AM EDT Subjective Patient ID: Kendall Vasques is a 38 y.o. female who presents for Follow-up (FOLLOW UP LUMBAR MRI, SHE STATES SHE WOULD LIKE A REFERRAL TO A LABORATORY DIRECTOR SHE HAS AN APPOINTMENT WITH DR. WILLIAM SORIANO June , SHE HAS ONGOING RIGHT LOWER BACK PAIN WITH RIGHT HIP PAIN AND PAIN DOWN INTO HER THIGH, PAIN INCREASES WITH BENDING AT THE WAIST, PICKING UP ITEMS OFF THE GROWN, SHE ALMOST FELL THISAM IN THE SHOWER HER RIGHT LEG GAVE OUT, ).SHE IS NOT ABLE TO LAY FLAT SHE HAS TO LAY ELEVATED, SHEDID NOT GET RELIEF ON THE PREDNISONE, SHE CONTINUES GABAPENTIN DAILY BUT IT IS NOT GIVING HER RELIEF WITH THE INCREASED PAIN, TYLENOL, SHE WOULD LIKE TO DISCUSS NEW MEDICATIONS, PAIN SCORE 8/10, FLAQUITO=6 6% Latisha Rabago, THERESE 06/01/24 8:27 AM Patient is a 38-year-old female following up today after undergoing an updated lumbar MRI. She had messaged us and a provider in our office had responded with the findings. Patient also read them. She has set herself up with a spine surgeon in [facility]. She is seeing them in early June. She continues to have pain. She has lower back pain with right buttock pain and right radiating leg pain. This affects her ambulatory status. This affects her quality life. This x-ray tibias and affects ability to do things once do. She said that her leg is giving out. She cannot do the things she needs to. She cannot bend, twist, be upright or active. She rates her pain an 8/10. She uses Robaxin during the day and tizanidine at night. She does not ever take the tizanidine during the day due to it making her tired. She also uses gabapentin 900 mg 3 times a day with some improvement not enough. She once again inquires about what she can use for medications to try to get relief as shestates that she cannot live like this and is somewhat tearful during the examination. Review of Systems Constitutional: Negative. HENT: Negative. Eyes: Negative. Respiratory: Negative. Cardiovascular: Negative. Gastrointestinal: Negative. Endocrine: Negative. Genitourinary: Negative. Musculoskeletal: Positive for arthralgias, back pain, gait problem and myalgias. Skin: Negative. Allergic/Immunologic: Negative. Neurological: Positive for weakness and numbness. Hematological: Negative. Psychiatric/Behavioral: Negative. Objective Physical Exam Vitals and nursing note reviewed. Constitutional: General: She is not in acute distress. Appearance: Normal appearance. She is not ill-appearing. HENT: Head: Normocephalic and atraumatic. Right Ear: External ear normal. Left Ear: External ear normal. Nose: Nose normal. Mouth/Throat: Pharynx: Oropharynx is clear. Eyes: Conjunctiva/sclera: Conjunctivae normal. Cardiovascular: Rate and Rhythm: Normal rate and regular rhythm. Pulses: Normal pulses. Pulmonary: Effort: Pulmonary effort is normal. Breath sounds: Normal breath sounds. Musculoskeletal: General: Normal range of motion. Cervical back: Normal range of motion. Comments: Slow to get up from a seated position Slow to walk Right hip flexion 4/5 with positive right straight leg raise Skin: General: Skin is warm and dry. Neurological: General: No focal deficit present. Mental Status: She is alert and oriented to person, place, and time. Mental status is at baseline. Psychiatric: Mood and Affect: Mood normal. Behavior: Behavior normal. Thought Content: Thought content normal. Judgment: Judgment normal. MR lumbar spine wo IV contrast Status: Final result PACS Images Show images for MR lumbar spine wo IV contrast Signed by Signed Time Phone Pager Lars Chaudhry MD 05/23/2024 07:17 [id number] Exam Information Status Exam Begun Exam Ended Final 05/20/2024 18:11 05/20/2024 18:51 Study Result Narrative & Impression Interpreted By: Lars Chaudhry, STUDY: MR LUMBAR SPINE WO IV CONTRAST; 05/20/2024 6:51 pm INDICATION: Signs/Symptoms:lower back and right leg pain, getting worse weakness. ,M54.16 Radiculopathy, lumbar region COMPARISON: May 2015. ACCESSION NUMBER(S): [id number] ORDERING CLINICIAN: MESHA GARCIA TECHNIQUE: The lumbar spine was studied in the sagital, axial and coronal planes utiliing T1 and T2 weighted images. FINDINGS: The marrow signal and vertebral body height are normal. The conus and sacrum are normal. Images at each interspace reveal the following: T12/L1 There is normal alignment and vertebral body height. The disc space is normal. There is no evidence of canal or foraminal narrowing. There is no evidence of bulging or herniated disc. L1/L2 There is normal alignment and vertebral body height. The disc space is normal. There is no evidence of canal or foraminal narrowing. There is no evidence of bulging or herniated disc. L2/L3 There is normal alignment and vertebral body height. The disc space is normal. There is no evidence of canal or foraminal narrowing. There is no evidence of bulging or herniated disc. L3/L4 There is normal alignment and vertebral body height. The disc space is normal. There is no evidence of canal or foraminal narrowing. There is no evidence of bulging or herniated disc. L4/L5 Loss of height and signal unchanged from the previous exam. Mild circumferential bulging intervertebral disc. Mild bilateral facet hypertrophy. No measurable canal stenosis. Moderate bilateral foraminal narrowing. L5/S1 Interval development of Modic type 2 discogenic marrow signal changes in the adjacent endplates. Progressive narrowing of the intervertebral disc since the previous exam. Asymmetrical bulging of the intervertebral disc to the right with trace narrowing of the right lateral recess and neural foramen is unchanged compared to the previous exam. IMPRESSION: * Slight progression of degenerative changes at L5/S1 compared to the previous exam *Residual asymmetrical bulging of the intervertebral disc to the right at L5/S1 with unchanged mild right-sided foraminal narrowing MACRO: none Signed by: Lars Chaudhry 05/23/2024 7:17 AM Dictation workstation: [id number] Assessment/Plan Diagnoses and all orders for this visit: Lumbar radiculopathy - gabapentin (Neurontin) 600 mg tablet; Take 2 tablets (1,200 mg) by mouth 3 times a day. Spondylosis of lumbosacral region without myelopathy or radiculopathy Chronic pain syndrome Musculoskeletal pain Patient is a 38-year-old female with a past medical history significant for the above-mentioned medical diagnoses. We reviewed her MRI. We reviewed the films together. We discussed different options.At this time, based on her imaging finds, her pain pattern and her failure to improve with conservative treatments I feel that seeing a spine surgeon is appropriate. She has an appointment already set up in early June. I would like her to pursue this. We also discussed her medications. We discussed the tizanidine that she takes at bedtime only and the methocarbamol she takes during the day. We discussed the gabapentin. At this time, I would recommend she increase this to 1200 mg 3 times a day. Potential side effects was discussed. OARRS was reviewed. Prescription sent to pharmacy. She is goingto follow-up in 1 month. Call the clinic sooner if necessary. documented in this [facility] Work Phone: [phone] NoteLeft great toenail Patient is a pleasant 38-year-old female following up today for a infected great toe. She states that she appropriately took the Bactrim and did really quite well no issues no ill effect no side effects. States that the draining and redness is better in her toenail though it still a bit sore. Physical vascular: DP PT pulses are easily palpable 2-4. CFT is fair no edema. Derm: Some very minimal distal erythema as the nails try to regrow over the distal nail fold not in no streaking or fluctuance no crepitation. Neuro: Normal. Musculoskeletal: Muscle strength is 5/5 fair tone. Can easily wiggle toes and clicking or catching. Assessment and plan: Patient is a pleasant 38-year-old female with a ingrown great toe with resolution of overt infection. No refill overall antibiotics required today. Instead will swap her to topical mupirocin applied twice per day to let the nail grow over top of the distal nail fold. Do this for 2 weeks. Follow-up in 3 months for long-term follow-up. AUTHENTICATED BY ALEXANDRU RAMIREZ JR., ON 05/18/2024 09:48:58[facility]04-02-2025 History of Present illness Narrative* Alexandru Ramirez Jr., DPM - 05/18/2024 9:47 AM EDT Left great toenail Patient is a pleasant 38-year-old female following up today for a infected great toe. She states that she appropriately took the Bactrim and did really quite well no issues no ill effect no side effects. States that the draining and redness is better in her toenail though it still a bit sore. Physical vascular: DP PT pulses are easily palpable 2-4. CFT is fair no edema. Derm: Some very minimal distal erythema as the nails try to regrow over the distal nail fold not inno streaking or fluctuance no crepitation. Neuro: Normal. Musculoskeletal: Muscle strength is 5/5 fair tone. Can easily wiggle toes and clicking or catching. Assessment and plan: Patient is a pleasant 38-year-old female with a ingrown great toe with resolution of overt infection. No refill overall antibiotics required today. Instead will swap her to topical mupirocin applied twice per day to let the nail grow over top of the distal nail fold. Do this for 2 weeks. Follow-up in 3 months for long-term follow-up. documented in this [id number] History of Present illness Narrative* Mesha Garcia PA-C - 05/18/2024 8:30 AM EDT Images from the original note were not included. Subjective Patient ID: Kendall Vasques is a 38 y.o. female who presents for Follow-up (FUV-right hip pain radiates down her buttock and into her back of her thigh. She describes her pain sharp and stabbing. She states it locks up. She is taking GPN and Zanaflex, she takes them together for the relief andshe is back working so she can not take Zanaflex. She uses heat, sitting in the recliner with her legs up, icyhot with little relief.). She stated that she has had injections before with little relief. Pain score 7/10 ETOH-neg FLAQUITO-58% Meme Love RN 05/18/24 8:25 AM Patient is a 38-year-old female following up today after continuing on gabapentin and Zanaflex. This Zanaflex does help her but makes her tired so she cannot take it while she is working and she states that she is back to work. Reports, with going back ports she states the pain has just gotten worse and has in fact intensified. She is noting right lower back pain which is her normal but now rightbuttock pain and right radiating leg pain as well as weakness. This affects her ambulatory status. This affects her quality life. This affects her activities. Patient underwent previous bilateral medial branch RFA covering the L4-S1 facet joint. This was done on 12/11/2023 and at this time unfortunately, has not given her any longstanding relief. She had 70% relief for about 2 weeks and then her pain returned. At this time she does not want to have any more injections that require her to go to the OR as she previously had some trauma in the OR and does not want to go back there. She is using the gabapentin 900 mg 3 times a day and the tizanidine. She wonders what other medication options we have to offer. She feels that she has trialed and failed all reasonable conservative treatments and is here today to discuss options. Review of Systems Constitutional: Negative. HENT: Negative. Eyes: Negative. Respiratory: Negative. Cardiovascular: Negative. Gastrointestinal: Negative. Endocrine: Negative. Genitourinary: Negative. Musculoskeletal: Positive for arthralgias, back pain, gait problem and myalgias. Skin: Negative. Allergic/Immunologic: Negative. Neurological: Positive for weakness and numbness. Hematological: Negative. Psychiatric/Behavioral: Negative. Objective Physical Exam Vitals and nursing note reviewed. Constitutional: General: She is not in acute distress. Appearance: Normal appearance. She is not ill-appearing. HENT: Head: Normocephalic and atraumatic. Right Ear: External ear normal. Left Ear: External ear normal. Nose: Nose normal. Mouth/Throat: Pharynx: Oropharynx is clear. Eyes: Conjunctiva/sclera: Conjunctivae normal. Cardiovascular: Rate and Rhythm: Normal rate and regular rhythm. Pulses: Normal pulses. Pulmonary: Effort: Pulmonary effort is normal. Breath sounds: Normal breath sounds. Musculoskeletal: General: Normal range of motion. Cervical back: Normal range of motion. Comments: Slow to get up from a seated position Right hip flexion 4/5 with positive right straight leg raise Skin: General: Skin is warm and dry. Neurological: General: No focal deficit present. Mental Status: She is alert and oriented to person, place, and time. Mental status is at baseline. Psychiatric: Mood and Affect: Mood normal. Behavior: Behavior normal. Thought Content: Thought content normal. Judgment: Judgment normal. MR lumbar spine wo IV contrast Order: [id number] Impression IMPRESSION: Lumbar spondylosis at L4-5 and L5-S1 levels, as described. Narrative EXAM: MRI SPINE LUMBAR WITHOUT CONTRAST HISTORY: Severe back pain COMPARISON: MRI lumbar spine 05/27/2018, CT abdomen 06/10/2023. TECHNIQUE/PROTOCOL: Noncontrast lumbar spine MR protocol (Sagittal T1, T2, STIR and axial T1, T2 sequences). FINDINGS: Five lumbar-type vertebral bodies with maintained heights. There is mild retrolisthesis of L5 on S1. No acute or aggressive marrow signal changes. No acute prevertebral or paraspinal soft tissue abnormalities. Conus terminates at L1-2 level. Visualized distal spinal cord and the cauda equina are morphologically normal. There is mild narrowing of disc space at L5-S1 level with mild marginal spurring, Schmorl's nodes and degenerative endplate changes. Otherwise, the disc spaces are preserved. There are disc desiccation at L4-5 and L5-S1 levels. At L4-5 level, there is mild diffuse disc bulging with right-sided predominance. There is central annular fissure. No spinal canal narrowing. Bilateral mild neural foraminal narrowing, right more than left. Mild ligamentum flavum thickening. At L5-S1 level, there is mild diffuse disc bulging with right-sided predominance, superimposed with small central disc protrusion. Mild spinal canal and right lateral recess narrowing. Mild right neural foraminal narrowing. No disc bulge/herniation, high-grade spinal canal or foraminal narrowing are seen at other levels. Exam End: 09/17/23 10:54 Specimen Collected: 09/17/23 10:27 Last Resulted: 09/20/23 02:23 Received From: [facility] Result Received: 09/22/23 10:02 Assessment/Plan Diagnoses and all orders for this visit: Lumbar radiculopathy - methylPREDNISolone (Medrol Dospak) 4 mg tablets; Follow schedule on package instructions - MR lumbar spine wo IV contrast; Future Chronic pain syndrome Spondylosis of lumbosacral region without myelopathy or radiculopathy Musculoskeletal pain Patient is a 38-year-old female with a past medical history significant for the above-mentioned medical diagnoses. At this time, she has undergone injections the past that did not help and she feels like things have gotten worse. In fact, over the last month especially since returning to work she feels like things have really intensified. This pain affects her ambulatory status. It affects her quality life. It affects her activities and affects her ability to do the things she wants to do. She states that her pain and weakness is almost unbearable. She is still using gabapentin and tizanidinebut she cannot take the tizanidine while at work because it makes her tired. At this time, we reviewed her previous MRI but since her symptoms have gotten worse I would recommend obtaining an updatedlumbar MRI scan as I suspect a disc herniation due to her physical examination. Patient will follow-up after the MRI for reevaluation and discussion of options. OARRS reviewed. In the meantime, she will also be given a Medrol Dosepak to try to calm down some of the inflammation. But no side effectswere discussed. documented in this [facility] Work Phone: [phone] NoteLeft great toe infection Patient is a pleasant 38-year-old female who is seen today via telehealth appointment. Per EMR the only 1 that was present in the room. Additionally does have obvious disadvantage of a telephone visit compared to an in person visit. She states that approximately a week ago she somehow dropped something heavy on her toe. States it is quite sore and uncomfortable. Additionally states that it is a bit worse that she just had throat surgery having a cyst removed off of vocal cord. Currently on erythromycin but states is not really helping her toe as she thought it should. Physical Derm: All via camera. Her left great nail does appear well attached albeit about 5 mm off of the very distal edge of her toe. Is not technically ingrown but it is erythematous. Some serous output but mild no appearance of streaking no fluctuance or crepitation. She states that there is point pain to the very tip of her toe not really getting to her nail fold. Assessment plan: Patient pleasant 38-year-old female with acute left great toe trauma and concern for early cellulitis. In light of her history of kidney disease, did go over antibiotics one by one with her is recommending primarily doxycycline this is cleared hepatically though she states it irritated her stomach. Last EGFR 60 therefore did start her on oral Bactrim DS for 10 days 20 tabs 0 refills. Follow-up in office in 2 weeks. AUTHENTICATED BY ALEXANDRU RAMIREZ JR., ON 04/21/2024 16:04:02[facility] [id number] History of Present illness Narrative* Alexandru Ramirez Jr., DPM - 04/21/2024 4:01 PM EST Left great toe infection Patient is a pleasant 38-year-old female who is seen today via telehealth appointment. Per EMR the only 1 that was present in the room. Additionally does have obvious disadvantage of a telephone visit compared to an in person visit. She states that approximately a week ago she somehow dropped something heavy on her toe. States it is quite sore and uncomfortable. Additionally states that it is a bit worse that she just had throat surgery having a cyst removed off of vocal cord. Currently on erythromycin but states is not really helping her toe as she thought it should. Physical Derm: All via camera. Her left great nail does appear well attached albeit about 5 mm off of the very distal edge of her toe. Is not technically ingrown but it is erythematous. Some serous output butmild no appearance of streaking no fluctuance or crepitation. She states that there is point pain to the very tip of her toe not really getting to her nail fold. Assessment plan: Patient pleasant 38-year-old female with acute left great toe trauma and concern for early cellulitis. In light of her history of kidney disease, did go over antibiotics one by one with her is recommending primarily doxycycline this is cleared hepatically though she states it irritated her stomach. Last EGFR 60 therefore did start her on oral Bactrim DS for 10 days 20 tabs 0 refills. Follow-up in office in 2 weeks. documented in this [id number] [facility] Medical Records Department [address] [place] [address] Discharge Summary 04/18/24920 MR#: [id number] Acct: [id number] Name: KENDALL VASQUES Rep #: [id number] : 1985 38 From: Cheo Arevalo MD PCP: MÓNICA Garcia Status:[facility] Location: [place] [address] Providers Primary Care Physician: MÓNICA Garcia Reason For Visit: Microlaryngoscopy Medications at Discharge Home Medications albuterol sulfate 90 mcg/actuation aerosol inhaler (Ventolin HFA) 1 - 2 puff inhalation Q6H PRN PRN Asthma 03/22/13 trazodone 150 mg PO/SL QHS 12/31/20 diphenhydramine 25 mg-acetaminophen 500 mg tablet (Tylenol PM Extra Strength) 1 tab PO QHS 10/22/21 spironolactone 25 mg tablet 25 mg PO QDAY 07/01/23 hydrochlorothiazide 12.5 mg capsule 12.5 mg PO QDAY 10/05/23 potassium citrate 10 mEq (1,080 mg) tablet,extended release 10 meq PO TID 10/05/23 vortioxetine 10 mg tablet (Trintellix) 10 mg PO QDAY 10/05/23 ondansetron 4 mg disintegrating tablet 4 mg PO Q8H PRN PRN Nausea #10 tabs 12/29/23 tizanidine 2 mg tablet 8 mg PO TID PRN PRN muscle spasticity 02/04/24 pantoprazole 40 mg tablet,delayed release 40 mg PO BID N/V, Gastritis #60 tabs 02/25/24 metoclopramide HCl 10 mg tablet (Reglan) 10 mg PO 4X/DAY PRN nausea and vomiting #28 tabs 03/10/24 buspirone 5 mg tablet 5 mg PO TID PRN anxiety 04/04/24 Weight / BMI Weight Weight: 66.4 kg Body Mass Index (BMI) 25.1 D/C Instructions Discharge Diet: Soft diet Discharge Activity: Return to Normal Activity DC O2, CPAP, BIPAP Needs Home O2 Discharge instructions: No Please Follow Up With: Cheo Arevalo MD When: 3 weeks Meaningful Use Info Meaningful Use Meaningful Use Diagnoses (Choose all that apply): None applicable Ischemic Stroke Statin Dosing Therapy Reference: STATIN DOSE THERAPY REFERENCE: * Patients > 75 years receive moderate or high dose statin therapy. * Patients 75 years or YOUNGER should receive HIGH intensity statin dose unless contraindicated. You will be required to document reason for non-treatment if statin daily dose does not meet guidelines. HIGH DOSE STATIN THERAPY DAILY Atorvastatin > than or = to 40 mg Rosuvastatin > than or = to 20 mg Amlodipine + Atorvastatin > than or = to 2.5/40 mg Ezetimibe + Simvastatin 10/80 mg Simvastatin 80mg Discharge Plan Admission Attending Provider: Cheo Arevalo Primary Care Provider: Winsome Cuevas Instructions Print Language: Swiss Discharge Orders/Prescriptions Prescriptions: No Action spironolactone 25 mg tablet 25 mg PO QDAY tizanidine 2 mg tablet 8 mg PO TID PRN PRN (Reason: muscle spasticity) hydrochlorothiazide 12.5 mg capsule 12.5 mg PO QDAY potassium citrate 10 mEq (1,080 mg) tablet extended release 10 meq PO TID Trintellix 10 mg tablet 10 mg PO QDAY pantoprazole 40 mg tablet,delayed release (DR/EC) 40 mg PO BID Qty: 60 1RF Rx Instructions: 40 mg orally once daily 30 minutes prior to breakfast and dinner albuterol sulfate [Ventolin HFA] 1 INHALER inhaler 1 - 2 puff inhalation Q6H PRN PRN (Reason: Asthma) trazodone 150 mg PO/SL QHS diphenhydramine-acetaminophen [Tylenol PM Extra Strength] 25-500 mg Tablet 1 tab PO QHS Rx Instructions: administer while awake buspirone 5 mg tablet 5 mg PO TID PRN (Reason: anxiety) ondansetron 4 mg tablet,disintegrating 4 mg PO Q8H PRN PRN (Reason: Nausea) Qty: 10 0RF metoclopramide HCl [Reglan] 10 mg tablet 10 mg PO 4X/DAY PRN (Reason: nausea and vomiting) Qty: 28 0RF Referrals / Follow Up: Winsome Cuevas NP-Sarbjit [Primary Care Provider] - Disposition Disposition (needs filled in before D/C Order can be placed): Home, Self Care 04/18/24 0921 Cosigner Signature (if applicable): CC: MÓNICA Cuevas; Dr. Cheo Arevalo [facility] Evaluation + Plan note* Assessment & Plan Note - CHRISTELLE Peace - 03/30/2024 12:40 PM ESTAssociated Problem(s): Gastritis Continue PPI. Refer to imposer. Orders: AMB REFERRAL TO DIETITIAN [facility]02-12-2025 History of Present illness Narrative* CHRISTELLE Peace - 03/30/2024 12:40 PM EST Chief Complaint Patient presents with Insomnia Anxiety Nausea Gastroesophageal Reflux Disease Obstructive Sleep Apnea Patient does not have a CPAP, and would like to discuss a new Sleeping Study HPI: Interval History: Has had extensive GI work up with normal gallbladder, testing for gastroparesis was negative. EGD showed gastritis Regarding Insomnia: She presents today for complaint of insomnia. Onset of symptoms: years. Previously treated with: Trazodone. Dose of 150mg works well for her. . Current meds include: trazodone 150mg daily. Frequency of medication use: nightly Pt reports difficulty initiating sleep: Yes Difficulty maintaining sleep: Yes Early awakening: Yes Pt reports or exhibits symptoms of anxiety/depression: Yes; feels symptoms are currently under control. Regarding Anxiety/Depression: Kendall presents with the complaint of anxiety/depression which is currently under control. She feels her anxiety is improved on Trintellix. She reports the following triggers: stress. She has required ativan very little since starting Tritellix. She recently asked her for a disillusion, so her stress is elevated. Other symptoms include: depressed mood, insomnia. Denies SI/HI. Current treatment includes: Trintellix 20mg daily. Feels that this medication is working well. Significant medical conditions: see list Previous Medications: Zoloft. celexa and she did not like as it caused weight gain and no improvement. Wellbutrin around 10 years ago, did not do well on this medication. Nausea: Zofran bid on average. Feels nauseous in the evening. She has been losing weight due to these symptoms. Suppository when she is vomiting severely. Sometimes finds a pattern to nausea and what she is eating. ROS: Constitutional: Positive for fatigue. Negative for fever. HENT: Negative for congestion, ear pain and sore throat. Eyes: Negative for pain and redness. Respiratory: Negative for cough and shortness of breath. Cardiovascular: Negative for chest pain and palpitations. Gastrointestinal: Positive for abdominal pain, diarrhea, nausea and vomiting. Negative for constipation. Genitourinary: Negative for difficulty urinating and dysuria. Musculoskeletal: Negative for arthralgias and myalgias. Skin: Negative for rash and wound. Neurological: Negative for dizziness and headaches. Past medical/family/social history: reviewed and updated, see documented in patient's chart. Physical Exam: BP 107/73 (BP Location: Left arm, BP Position: Sitting) Pulse 94 Wt 65.8 kg (145 lb) SpO2 96% BMI 24.89 kg/m Smoking Status Never Body mass index is 24.89 kg/m . Physical Exam Vitals and nursing note reviewed. Constitutional: Appearance: Normal appearance. HENT: Head: Normocephalic and atraumatic. Eyes: Conjunctiva/sclera: Conjunctivae normal. Pupils: Pupils are equal, round, and reactive to light. Pulmonary: Effort: Pulmonary effort is normal. Neurological: Mental Status: She is alert and oriented to person, place, and time. Psychiatric: Attention and Perception: Attention normal. Mood and Affect: Mood normal. Affect is tearful. Behavior: Behavior normal. Assessment & Plan Abdominal discomfort in right upper quadrant Refer to imposer. Referral given to patient to schedule in [place]. Orders: AMB REFERRAL TO DIETITIAN Psychophysiological insomnia Chronic and stable. No change to current trazodone. Orders: trazodone 150 MG tablet; Take 1 tablet by mouth every evening at 6 PM. Generalized anxiety disorder Chronic and unstable. Continue trintellix. Ativan for rare use. Will attempt start of buspirone to take as needed for anxiety. Counseling recommended and she will consider but is not interested in currently. Orders: Vortioxetine HBr (Trintellix) 20 MG tablet; Take 1 tablet by mouth daily. LORazepam (Ativan) 0.5 MG tablet; Take 1 tablet by mouth 2 times daily as needed for Anxiety for upto 20 days. busPIRone HCl 7.5 MG tablet; Take 1 tablet by mouth 3 times daily as needed for Anxiety. Nausea Chronic and improved with medication. She will work on improving her diet and finding triggers for nausea. 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 Orders: Promethazine HCl 12.5 MG tablet; Take 1 tablet by mouth every 4 hours as needed for Nausea / Vomiting. Ondansetron 8 MG Tab Dispersible tablet; Take 1 tablet by mouth every 4 hours as needed for Nausea.Place on tongue Promethazine 25 MG Suppository suppository; Insert 1 suppository rectally every 6 hours as needed for Nausea / Vomiting. AMB REFERRAL TO DIETITIAN Chronic gastritis without bleeding, unspecified gastritis type Continue PPI. Refer to imposer. Orders: AMB REFERRAL TO DIETITIAN *Follow up in 3 months.* Orders and follow up as documented in patient record; Medications Discontinued During This Encounter Medication Reason Methocarbamol 500 MG tablet Patient Preference Requested Prescriptions Pending Prescriptions Disp Refills trazodone 150 MG tablet 90 tablet 1 Sig: Take 1 tablet by mouth every evening at 6 PM. Vortioxetine HBr (Trintellix) 20 MG tablet 90 tablet 1 Sig: Take 1 tablet by mouth daily. Promethazine HCl 12.5 MG tablet 30 tablet 0 Sig: Take 1 tablet by mouth every 4 hours as needed for Nausea / Vomiting. LORazepam (Ativan) 0.5 MG tablet 14 tablet 0 Sig: Take 1 tablet by mouth 2 times daily as needed for Anxiety for up to 20 days. Ondansetron 8 MG Tab Dispersible tablet 30 tablet 1 Sig: Take 1 tablet by mouth every 4 hours as needed for Nausea. Place on tongue Promethazine 25 MG Suppository suppository 6 suppository 0 Sig: Insert 1 suppository rectally every 6 hours as needed for Nausea / Vomiting. Patient was advised to call with any questions or concerns. If symptoms worsen patient was advised to follow up in our office or the Emergency Dept. Benefits, Risks, Contraindications, and Complications of recommended treatments were explained the patient understands and agrees to proceed with plan. CHRISTELLE Peace 03/30/2024 * Jocelyn Tong - 03/30/2024 12:40 PM EST Nurse Note: Review of Systems Constitutional: Positive for fatigue. Negative for fever. HENT: Negative for congestion, ear pain and sore throat. Eyes: Negative for pain and redness. Respiratory: Negative for cough and shortness of breath. Cardiovascular: Negative for chest pain and palpitations. Gastrointestinal: Positive for abdominal pain, diarrhea, nausea and vomiting. Negative for constipation. Genitourinary: Negative for difficulty urinating and dysuria. Musculoskeletal: Negative for arthralgias and myalgias. Skin: Negative for rash and wound. Neurological: Negative for dizziness and headaches. documented in this [facility]02-12-[facility] Instructions* Patient Instructions* CHRISTELLE Peace - 03/30/2024 12:40 PM EST *Refills Patient was advised to call with any questions or concerns. If symptoms worsen patient was advised to follow up in our office or the Emergency Dept. Benefits, Risks, Contraindications, and Complications of recommended treatments were explained the patient understands and agrees to proceed with plan. [facility] Miscellaneous Notes* Assessment & Plan Note - CHRISTELLE Peace - 03/30/2024 12:40 PM EST Associated Problem(s): Gastritis Continue PPI. Refer to imposer. Orders: AMB REFERRAL TO DIETITIAN [facility] History of Present illness Narrative* Mesha Garcia PA-C - 03/23/2024 8:00 AM EST Subjective Patient ID: Kendall Vasques is a 38 y.o. female who presents for Follow-up (FUV 1 month methocarbamol trial she reports this did not help and she would like to go back on Tizanidine also she is not working right now. Today she reports having pain I bilat lower back L>R lower back into rt hip,rates pain 6/10 now and 8/10 at worst with any activity, bending, lifting rt leg and sitting for tolong makes the pain worse, describes as my hip locks up and she has to move to get relief, sharp, stabbing pain that is intermediate. ) She is taking Tylenol, Gabapentin and Tizanidine these help her so she can function but does not take her pain away. She had NOROvirus that caused stomach issues c ausing her to go to the ER and she still has some GI upset. FLAQUITO score 13%, COMM 13, screenings: depression is situational she has been ill for close to a month she does not want any meds and has no plan to harm herself, smoking negative, Falls n/a for age. Meme Love RN 03/23/24 7:57 AM Patient is a 38-year-old female following up today after continuing on gabapentin and trialing methocarbamol. Originally she had messaged us that the methocarbamol was working. She then messaged us that the methocarbamol was no longer working and she wanted to go back on tizanidine. She continues to have lower back pain where she states that sometimes she gets locked up. Patient states that sinceNovember she has had issues with gastritis and has been to the ED a few times. She states that the IV medications that they gave her including Dilaudid are really helpful. She does not want to be on that high of the medication but wonders if there is some sort of opiate she can take for the back pain as this does help her. Patient underwent previous bilateral medial branch RFA covering the L4-S1 facet joint. This was done on 12/11/2023 and at this time unfortunately, has not given her any longstanding relief. She had 70% relief for about 2 weeks and then her pain returned. At this time she does not want to have any more injections that require her to go to the OR as she previously had some trauma in the OR and does not want to go back there. She is using gabapentin 900 mg 3 times a day and the tizanidine. She wonders what other medication options we had. She had previously tried Lyrica that she did not tolerateand she is currently on Trintellix which helps her depression. Review of Systems Constitutional: Negative. HENT: Negative. Eyes: Negative. Respiratory: Negative. Cardiovascular: Negative. Gastrointestinal: Negative. Endocrine: Negative. Genitourinary: Negative. Musculoskeletal: Positive for arthralgias, back pain and myalgias. Skin: Negative. Allergic/Immunologic: Negative. Neurological: Positive for weakness and numbness. Hematological: Negative. Psychiatric/Behavioral: Negative. Objective Physical Exam Vitals and nursing note reviewed. Constitutional: General: She is not in acute distress. Appearance: Normal appearance. She is not ill-appearing. HENT: Head: Normocephalic and atraumatic. Right Ear: External ear normal. Left Ear: External ear normal. Nose: Nose normal. Mouth/Throat: Pharynx: Oropharynx is clear. Eyes: Conjunctiva/sclera: Conjunctivae normal. Cardiovascular: Rate and Rhythm: Normal rate and regular rhythm. Pulses: Normal pulses. Pulmonary: Effort: Pulmonary effort is normal. Breath sounds: Normal breath sounds. Musculoskeletal: General: Normal range of motion. Cervical back: Normal range of motion. Comments: Slow to get up from a seated position 5/5 lower extremity strength Skin: General: Skin is warm and dry. Neurological: General: No focal deficit present. Mental Status: She is alert and oriented to person, place, and time. Mental status is at baseline. Psychiatric: Mood and Affect: Mood normal. Behavior: Behavior normal. Thought Content: Thought content normal. Judgment: Judgment normal. Assessment/Plan Diagnoses and all orders for this visit: Chronic pain syndrome - tiZANidine (Zanaflex) 4 mg capsule; Take 2 capsules (8 mg) by mouth every 8 hours if needed for muscle spasms. Do not take if using methocarbamol Musculoskeletal pain Spondylosis of lumbosacral region without myelopathy or radiculopathy - tiZANidine (Zanaflex) 4 mg capsule; Take 2 capsules (8 mg) by mouth every 8 hours if needed for muscle spasms. Do not take if using methocarbamol Stage 2 chronic kidney disease - tiZANidine (Zanaflex) 4 mg capsule; Take 2 capsules (8 mg) by mouth every 8 hours if needed for muscle spasms. Do not take if using methocarbamol Patient is a 38-year-old female with the above-mentioned medical diagnoses following up today once again to discuss her medications. At this time, she is going to continue to use tizanidine 8 mg 3 times a day as needed and she is going to continue on gabapentin. On her milligrams 3 times a day. I would like to discuss her case with Dr. Maki. We are going to call her once I am able to speak with him. Patient will await our call. OARRS reviewed. documented in this [facility] Work Phone: [phone]) 123-913912-26-2024 [facility] Medical Records Department [facility] [place] [address] History Physical Exam 02/11/24 0649 MR#: [id number] Acct: [id number] Name: KENDALL VASQUES Rep #: [id number] : 1985 38 From: Bebeto [place] DO PCP: RIGOBERTO GarciaC Status:[facility] Location: [place] [address] HPI - General General Date of Admission: 02/11/24 Date of Service: 02/11/24 Chief Complaint: abdominal pain and diarrhea HPI Narrative Chief Complaint: vertigo, vomiting, diarrhea Details: KENDALL VASQUES, is a 38 F who presents to the office today for ABD US 01/30/2024 unremarkable ABD US 10/05/2023 No acute sonographic abnormality is demonstrated in the right upper quadrant. Minimal sludge within the gallbladder. LABS 01/30/2024 BUN, Creat, HGB and Albumin are all WNL Colonoscopy 2018 - she reports this was normal EGD 10/23/2021 ([facility]) mild gastritis, biopsy negative for Mayes's and H. pylori - started Omeprazole OTC 1 week ago - no improvement - weak, fatigue - denies any alcohol - denies use of NSAIDS - caffeine - 1 cup a day - she is a non-smoker - she reports she is experiencing night sweats - denies any fever - brain fog - fatigue - weight loss of 7lbs - no formed stools x3 weeks - 3-4x a day - yellow bile - denies any HB - she is vomiting bile - denies any emesis of food - she wakes at HS with pain - abdominal pain x1 month - she reports a HIDA was normal 8 years ago - denies any recent travel - denies any sick contacts - denies any recent ATB use [facility] Medical History Vomiting Seizure BPPV (benign paroxysmal positional vertigo) Difficult intravenous access Non-smoker Dysautonomia-like disorder Nephrolithiasis History of echocardiogram Wears glasses Alcohol use Anemia Easy bruising Restless legs Back pain Seizures Dietary restriction History of IBS Shortness of breath on exertion History of edema Bronchitis History of irregular heartbeat Hypoglycemia Anxiety Depression Migraines Kidney disease Hypertension Home Medications ???Medication ???Instructions ???Recorded ???Last Taken ???Type albuterol sulfate 90 mcg/actuation 1 - 2 puff inhalation Q6H PRN PRN 03/22/13 05/24/14 08:49 History aerosol inhaler (Ventolin HFA) Asthma trazodone 150 mg PO/SL QHS 12/31/20 06/05/21 History diphenhydramine 25 1 tab PO QHS 10/22/21 Unknown History mg-acetaminophen 500 mg tablet (Tylenol PM Extra Strength) spironolactone 25 mg tablet 25 mg PO QDAY 07/01/23 Unknown History hydrochlorothiazide 12.5 mg capsule 12.5 mg PO QDAY 10/05/23 Unknown History potassium citrate 10 mEq (1,080 10 meq PO TID 10/05/23 Unknown History mg) tablet,extended release vortioxetine 10 mg tablet 10 mg PO QDAY 10/05/23 Unknown History (Trintellix) meclizine 25 mg tablet 25 mg PO 4X/DAY PRN PRN Dizziness 12/29/23 Unknown Rx #20 tabs ondansetron 4 mg disintegrating 4 mg PO Q8H PRN PRN Nausea #10 tabs 12/29/23 Unknown Rx tablet methocarbamol 500 mg tablet 500 mg PO TID 02/04/24 Unknown History tizanidine 2 mg tablet 4 mg PO TID PRN PRN muscle 02/04/24 Unknown History spasticity pantoprazole 40 mg tablet,delayed 40 mg PO DAILY 02/05/24 Unknown History release Allergy/AdvReac Type Severity Reaction Status Date / Time baclofen Allergy Severe incontinenc Verified 02/11/24 06:02 e codeine Allergy Hives Verified 02/11/24 06:02 metronidazole (From Flagyl) Allergy Shortness Verified 02/11/24 06:02 of breath morphine Allergy Hives Verified 02/11/24 06:02 shellfish derived Allergy Angioedema Verified 02/11/24 06:02 topiramate (From Topamax) Allergy Other Verified 02/11/24 06:02 tramadol AdvReac Severe seizures Verified 02/11/24 06:02 adhesive AdvReac Rash Verified 02/11/24 06:02 NSAIDS (Non-Steroidal AdvReac PT UNSURE Verified 02/11/24 06:02 Anti-Inflamma OF REACTION Family History Father No cardiac disease Mother No cardiac disease Other Arthritis Asthma Blood clot in vein Bowel disease Breast cancer CVA (cerebral vascular accident) Cervical cancer Depression Diabetes High cholesterol Hypertension Seizures Suicidal ideation Surgical History Hx of dilation and curettage History of radiofrequency ablation (RFA) of nerve of lumbar spine H/O: hysterectomy Hx of laparoscopy S/P removal of right ovary S/P tonsillectomy S/P breast lumpectomy Previous section Social History household members: spouse Smoking Status: Never smoker alcohol intake: current alcohol intake frequency: holidays/special occasions (more content not included)...[facility]12-[facility] History of Present illness Narrative* Timmy Mariano MD - 02/03/2024 1:15 PM EST DAILY PROGRESS NOTE Admit Date: (Not on file) Date of Evaluation: 41:54 PM [facility] @[facility]@ IMPRESSION AND PLAN: 37 y/o female w/ h/o HTN, epilepsy, kidney stone and PID here for hypokalemia. She has hysterectomy 1) Hypokalemia: K 2.9 -> 3.8 -> 3.3 -> 4.2 -> 4.0 -> 3.9 -> 3.8 -> 4.2 -> 3.8 -> 4.2 -> 3.6 -> 4.1 -> 4.0 , stable. Discontinued KCl 20mEQ PO Qday. Will get K level. Continue with spironolactone. 2) Hematuria: Renal US is unremarkable. UA disclosed trace bacteria, trace ketones and trace esterase Continue with potassium citrate Continue with Hydrochlorothiazide. 3) HTN: SBP 100s. Currently on spironolactone and Hydrochlorothiazide. 4) Kidney stone: CT abdomen 2 mm nonobstructive left renal calculus. A punctate calculus is seen within the posterior urinary bladder, suggestive of a previously passed stone. Renal US disclosed no hydronephrosis calculus or focal renal abnormality UA disclosed rare crystals. US disclosed unremarkable right upper quadrant ultrasound. No cholelithiasis. No sonographic Murphysign. No intrahepatic/extra hepatic ductal dilatation. Uric acid 3.4 PTH 27.4 Cr 0.98 -> 0.80 Will get CBC. SUBJECTIVE: Patient seen and examined. Chart, medications, labs reviewed. Appointment on 01/30/2024 Component Date Value Ref Range Status Glucose 01/30/2024 89 70 - 100 MG/DL Final Comment: NORMAL <100 mg/dL PREDIABETES 101-126 mg/dL DIABETES 126 mg/dL or higher BUN 01/30/2024 13 7 - 20 MG/DL Final CREATININE SERUM 01/30/2024 0.97 0.70 - 1.20 MG/DL Final SODIUM 01/30/2024 138 137 - 145 MMOL/L Final Potassium 01/30/2024 4.1 3.5 - 5.1 MMOL/L Final CHLORIDE 01/30/2024 107 98 - 107 MMOL/L Final Please note: Triglyceride levels of 600mg/dL or higher may positively bias chloride results by approximately 2.1 mmol CARBON DIOXIDE (CO2) 01/30/2024 26 22 - 30 MMOL/L Final Albumin 01/30/2024 4.9 3.5 - 5.0 G/dl Final CALCIUM 01/30/2024 10.2 8.4 - 10.2 MG/DL Final PHOSPHORUS 01/30/2024 3.4 2.5 - 4.5 MG/DL Final ESTIMATED GFR, NON AMER 01/30/2024 69 ml/min/1.73sq.m Final ESTIMATED GFR, 01/30/2024 83 ml/min/1.73sq.m Final GFR COMMENT 01/30/2024 Average GFR for 30-39 years old = 107. Final Comment: Chronic Kidney disease, GFR = <60. Kidney failure, GFR = <15. The GFR estimate is not adjusted for extreme body surface area or acute process, nor has it been validated for women or ethnic groups other than and . MAGNESIUM 01/30/2024 2.1 1.6 - 2.3 MG/DL Final WBC (WHITE BLOOD COUNT) 01/30/2024 5.5 3.6 - 11.0 10*3/uL Final RBC 01/30/2024 4.38 4.0 - 5.4 10*6/uL Final HEMOGLOBIN (HGB) 01/30/2024 13.3 12.0 - 16.0 G/DL Final HEMATOCRIT (HCT) 01/30/2024 40.6 36.0 - 48.0 % Final MEAN CELL VOLUME 01/30/2024 92.7 80.0 - 100.0 FL Final Mean Cell HGB 01/30/2024 30.3 26.0 - 35.0 PG Final MEAN CELL HGB CONCENTRATION 01/30/2024 32.7 27.0 - 37.0 G/DL Final RBC DISTRIBUTION 01/30/2024 12.9 11.5 - 14.5 % Final PLATELET COUNT 01/30/2024 227 130 - 400 10*3/uL Final MEAN PLATELET VOLUME 01/30/2024 8.3 7.4 - 11.0 FL Final DIFFERENTIAL TYPE 01/30/2024 AUTO DIFF % Final NEUTROPHILS 01/30/2024 52.5 37.0 - 75.0 % Final LYMPHOCYTE 01/30/2024 38.7 20.0 - 55.0 % Final MONOCYTE % 01/30/2024 6.5 0.0 - 10.0 % Final EOSINOPHIL % 01/30/2024 1.3 0.0 - 11.0 % Final BASOPHIL % 01/30/2024 1.0 0.0 - 2.0 % Final Absolute Neutrophil Count 01/30/2024 2.9 1.4 - 6.5 10*3/uL Final LYMPHOCYTES, ABSOLUTE 01/30/2024 2.1 1.2 - 3.4 10*3/uL Final MONOCYTES, ABSOLUTE 01/30/2024 0.4 0.0 - 0.7 10*3/uL Final ABSOLUTE EOSINOPHIL COUNT 01/30/2024 0.1 0.0 - 0.7 10*3/uL Final ABSOLUTE BASOPHIL COUNT 01/30/2024 0.1 0.0 - 0.2 10*3/uL Final URIC ACID 01/30/2024 3.3 2.5 - 6.2 MG/DL Final VITAMIN D 25 HYDROXY 01/30/2024 56.5 NG/ML Final Comment: DEFICIENT <20 NG/ML INSUFFICIENT 20-<30 NG/ML SUFFICIENT 30-100 NG/ML POTENTIAL TOXICITY >100 NG/ML PTH INTACT 01/30/2024 16.6 14.5 - 75.2 pg/mL Final PROTEIN MG/DL-URINE 01/30/2024 <5 0 - 12 MG/DL Final CREATININE, MG/DL, URINE 01/30/2024 247.5 MG/DL Final NO NORMAL VALUES ESTABLISHED FOR RANDOM SPECIMENS PROTEIN/CREAT RATIO, URINE 01/30/2024 NOT CALCULATED Final COLOR, URINE 01/30/2024 YELLOW YELLOW Final APPEARANCE, URINE 01/30/2024 CLEAR CLEAR Final Specific [place], Urine 01/30/2024 1.025 1.010 - 1.025 Final PH URINE 01/30/2024 6.0 5.0 - 7.0 Final Urine Protein 01/30/2024 NEGATIVE NEGATIVE mg/dl Final GLUCOSE, URINE 01/30/2024 NEGATIVE NEGATIVE mg/dl Final KETONES, URINE 01/30/2024 TRACE (A) NEGATIVE mg/dl Final BILIRUBIN, URINE 01/30/2024 NEGATIVE NEGATIVE Final BLOOD, URINE DIPSTICK 01/30/2024 SMALL (A) NEGATIVE Final NITRITES, URINE 01/30/2024 NEGATIVE NEGATIVE Final UROBILINOGEN, URINE 01/30/2024 0.2 0.2 - 1.0 E.U./dL Final LEUKOCYTE ESTERASE, URINE 01/30/2024 NEGATIVE NEGATIVE Final SODIUM, URINE RANDOM 01/30/2024 78 30 - 90 MMOL/L Final WBC, URINE 01/30/2024 NEGATIVE NEGATIVE /HPF Final RBC, URINE 01/30/2024 NEGATIVE NEGATIVE /HPF Final Epithelial Cells UA 01/30/2024 1 TO 5 /HPF Final Mucus 01/30/2024 NEGATIVE NEGATIVE Final BACTERIA, URINE 01/30/2024 NEGATIVE NEGATIVE Final CRYSTALS, URINE 01/30/2024 NONE NONE Final CASTS, URINE 01/30/2024 NONE NONE /LPF Final COMMENT, URINE 01/30/2024 CULTURE CRITERIA NOT MET, NO CULTURE PERFORMED. Final LABS Labs-ABGs @ABGROUNDS@ Labs-CBC @CBCBRIEFROUNDS@ Labs-Chem 7(PMC) @[facility]@ Labs-Coags WBC (WHITE BLOOD COUNT) Date Value Ref Range Status 01/30/2024 5.5 3.6 - 11.0 10*3/uL Final 09/07/2023 5.7 3.6 - 11.0 10*3/uL Final 06/10/2023 6.5 3.6 - 11.0 10*3/uL Final HEMOGLOBIN (HGB) Date Value Ref Range Status 01/30/2024 13.3 12.0 - 16.0 G/DL Final 09/07/2023 12.5 12.0 - 16.0 G/DL Final 06/10/2023 11.7 (L) 12.0 - 16.0 G/DL Final HEMATOCRIT (HCT) Date Value Ref Range Status 01/30/2024 40.6 36.0 - 48.0 % Final 09/07/2023 39.3 36.0 - 48.0 % Final 06/10/2023 36.1 36.0 - 48.0 % Final PLATELET COUNT Date Value Ref Range Status 01/30/2024 227 130 - 400 10*3/uL Final 09/07/2023 239 130 - 400 10*3/uL Final 06/10/2023 215 130 - 400 10*3/uL Final SODIUM Date Value Ref Range Status 01/30/2024 138 137 - 145 MMOL/L Final 09/07/2023 140 137 - 145 MMOL/L Final 06/10/2023 139 137 - 145 MMOL/L Final CHLORIDE Date Value Ref Range Status 01/30/2024 107 98 - 107 MMOL/L Final Comment: Please note: Triglyceride levels of 600mg/dL or higher may positively bias chloride results by approximately 2.1 mmol 09/07/2023 109 (H) 98 - 107 MMOL/L Final Comment: Please note: Triglyceride levels of 600mg/dL or higher may positively bias chloride results by approximately 2.1 mmol 06/10/2023 109 (H) 98 - 107 MMOL/L Final Comment: Please note: Triglyceride levels of 600mg/dL or higher may positively bias chloride results by approximately 2.1 mmol BUN Date Value Ref Range Status 01/30/2024 13 7 - 20 MG/DL Final 09/07/2023 15 7 - 20 MG/DL Final 06/10/2023 14 7 - 20 MG/DL Final Potassium Date Value Ref Range Status 01/30/2024 4.1 3.5 - 5.1 MMOL/L Final 09/07/2023 4.0 3.5 - 5.1 MMOL/L Final 06/10/2023 4.0 3.5 - 5.1 MMOL/L Final CREATININE SERUM Date Value Ref Range Status 01/30/2024 0.97 0.70 - 1.20 MG/DL Final 09/07/2023 0.90 0.70 - 1.20 MG/DL Final 06/10/2023 0.80 0.70 - 1.20 MG/DL Final POCT GLUCOSE, URINE Date Value Ref Range Status 07/15/2023 Negative mg/dL Final Glucose Date Value Ref Range Status 01/30/2024 89 70 - 100 MG/DL Final Comment: NORMAL <100 mg/dL PREDIABETES 101-126 mg/dL DIABETES 126 mg/dL or higher 09/07/2023 89 70 - 100 MG/DL Final Comment: NORMAL <100 mg/dL PREDIABETES 101-126 mg/dL DIABETES 126 mg/dL or higher PT Date Value Ref Range Status 07/03/2022 14.1 11.8 - 14.4 SEC Final 12/23/2018 13.4 11.6 - 14.0 SEC Final 08/01/2018 12.8 11.6 - 14.0 SEC Final PTT Date Value Ref Range Status 08/01/2018 27.7 23.2 - 34.5 SEC Final Comment: THERAPEUTIC RANGE (43.0-65.0) 05/27/2018 29.6 23.2 - 34.5 SEC Final Comment: THERAPEUTIC RANGE (43.0-65.0) 06/25/2017 27.2 23.2 - 34.5 SEC Final Comment: THERAPEUTIC RANGE (43.0-65.0) PROTEIN, TOTAL Date Value Ref Range Status 07/03/2022 6.5 6.3 - 8.2 GM/DL Final 07/02/2022 8.5 (H) 6.3 - 8.2 GM/DL Final 10/07/2021 7.7 6.3 - 8.2 GM/DL Final Albumin Date Value Ref Range Status 01/30/2024 4.9 3.5 - 5.0 G/dl Final 09/07/2023 4.8 3.5 - 5.0 G/dl Final 06/08/2023 4.9 3.5 - 5.0 G/dl Final AST Date Value Ref Range Status 07/03/2022 15 15 - 41 IU/L Final 07/02/2022 22 15 - 41 IU/L Final 10/07/2021 20 15 - 41 IU/L Final ALT Date Value Ref Range Status 07/03/2022 13 (L) 14 - 54 IU/L Final 07/02/2022 16 14 - 54 IU/L Final 10/07/2021 18 14 - 54 IU/L Final BILIRUBIN, TOTAL Date Value Ref Range Status 07/03/2022 0.3 0.2 - 1.2 MG/DL Final CALCIUM Date Value Ref Range Status 01/30/2024 10.2 8.4 - 10.2 MG/DL Final 09/07/2023 9.4 8.4 - 10.2 MG/DL Final 06/08/2023 9.3 8.4 - 10.2 MG/DL Final PHOSPHORUS Date Value Ref Range Status 01/30/2024 3.4 2.5 - 4.5 MG/DL Final 09/07/2023 3.5 2.5 - 4.5 MG/DL Final 06/08/2023 3.3 2.5 - 4.5 MG/DL Final MAGNESIUM Date Value Ref Range Status 01/30/2024 2.1 1.6 - 2.3 MG/DL Final 09/07/2023 2.1 1.6 - 2.3 MG/DL Final 06/08/2023 2.1 1.6 - 2.3 MG/DL Final Lab Results Component Value Date CREATURINE 247.5 01/30/2024 CREATSERUM 0.97 01/30/2024 BUN 13 01/30/2024 SODIUM 138 01/30/2024 POTASSIUM 4.1 01/30/2024 CHLORIDE 107 01/30/2024 CO2 26 01/30/2024 ROS: Constitution: No fever, no chill HEENT: No headache, no sinus issues CV: No chest pain, no palpitation Lung: No cough, No SOB Abd: No diarrhea, no constipation Neuro: No seizure, no loss of consciousness Heme: No bleeding, no bruise PHYSICAL EXAM: Wt Readings from Last 3 Encounters: 02/03/24 69.4 kg (152 lb 14.4 oz) 01/27/24 69.7 kg (153 lb 9.6 oz) 10/16/23 69.3 kg (152 lb 11.2 oz) Temp Readings from Last 3 Encounters: 01/27/24 98.4 F (36.9 C) 09/07/23 97.6 F (36.4 C) (Temporal) 06/10/23 98.7 F (37.1 C) (Temporal) BP Readings from Last 3 Encounters: 02/03/24 106/70 01/27/24 99/63 10/16/23 107/74 Pulse Readings from Last 3 Encounters: 02/03/24 73 01/27/24 67 10/16/23 88 Gen: NAD, lying in bed, conversant HEENT: Atraumatic, PERRLA, moist membrane CV: RRR, nl S1 and S2, no m/g/r Lung: CTAB, no wheezing, no crackle Abd: +BS, nontender, no distended Ext: No rash, no clubbing, no cyanosis. No edema. Neuro: CNII-XII grossly intact, 5/5 strength, normal tone Skin: Warm and dry [facility] History of Present illness Narrative* Winsome Cuevas, [employer] SWEEPER-[employer]CH[employer]IC - 01/27/2024 3:20 PM EST Chief Complaint Patient presents with Abdominal Pain Upper right abdominal pain Diarrhea Vomiting Patient states that she has been vomiting for 2 weeks off and on. She has been to the ER twice 01/10/25 ( read note) HPI: Regarding Abominal Pain: Rhys a 38 y.o. female who presents today for complaints of Abdominal Pain. She was seen at [facility] ER in [place] on 01/11/24 and had testing that was essentially negative. Location - RUQ pain. Vomiting bile and not able to keep much of anything down since Thursday (4 days ago). Trying to drink water, but has not been eating many solids. Ate oatmal this am and then vomited. Since Thanksgiving does not feel that she has been able to eat much. Duration - 2 weeks Quality of pain - aching Treatments tried - phenergan in the daytime, zofran at night. These medications provide some relief. Exacerbating/Alleviating Factors- no pattern, but eating makes vomiting worse Has there been similar problems in the past - No; h/o kidney stones but not typically presenting this way. Significant Medical Conditions- see list For females, last menstrual period or status - s/p hysterectomy Fever - No; but feels flushed and chilled Stool black or bloody - no Vomiting blood or coffee grounds - no Persistent nausea, vomiting, or diarrhea - Yes: vomiting after eating and persistent nausea. Mental status changes - no ROS: Constitutional: Negative for fatigue and fever. HENT: Negative for congestion, ear pain and sore throat. Eyes: Negative for pain and redness. Respiratory: Negative for cough and shortness of breath. Cardiovascular: Negative for chest pain and palpitations. Gastrointestinal: Positive for abdominal pain, diarrhea, nausea and vomiting. Negative for constipation. Genitourinary: Negative for difficulty urinating and dysuria. Musculoskeletal: Negative for arthralgias and myalgias. Skin: Negative for rash and wound. Neurological: Negative for dizziness and headaches. Past medical/family/social history: reviewed and updated, see documented in patient's chart. Physical Exam: BP 99/63 Pulse 67 Wt 69.7 kg (153 lb 9.6 oz) SpO2 100% BMI 26.37 kg/m Smoking Status Never Body mass index is 26.37 kg/m . Physical Exam Vitals and nursing note reviewed. HENT: Head: Normocephalic and atraumatic. Eyes: Pupils: Pupils are equal, round, and reactive to light. Cardiovascular: Rate and Rhythm: Normal rate and regular rhythm. Heart sounds: Normal heart sounds. Pulmonary: Effort: Pulmonary effort is normal. Breath sounds: Normal breath sounds. Abdominal: General: Abdomen is flat. Bowel sounds are normal. There is no distension. Palpations: Abdomen is soft. Tenderness: There is abdominal tenderness in the right upper quadrant. There is no right CVA tenderness, left CVA tenderness, guarding or rebound. Musculoskeletal: General: Normal range of motion. Skin: General: Skin is warm and dry. Neurological: Mental Status: She is alert and oriented to person, place, and time. Assessment & Plan Abdominal discomfort in right upper quadrant At this time Kendall does not appear acutely ill. Does not look to be dehydrated. She will proceed with RUQ ultrasound as gallbladder disease has been questioned in the past. Advised that she work to stay hydrated and attempt to incorporate bland foods or broths. Refer to GI closer to home in [place]. Start omeprazole and continue anti-nausea medications that she already has at home. Discussed taking gabapentin and some of her other medications on an empty stomach and this may be contributing. Orders: omeprazole [address] capsule; Take 1 capsule by mouth daily. US ABDOMEN RUQ/LIVER/GB; Future AMB REFERRAL TO GASTROENTEROLOGY Nausea Promethazine suppository for as needed use. Orders: Promethazine 25 MG Suppository suppository; Insert 1 suppository rectally every 6 hours as needed for Nausea / Vomiting. AMB REFERRAL TO GASTROENTEROLOGY Orders and follow up as documented in patient record; There are no discontinued medications. Requested Prescriptions No prescriptions requested or ordered in this encounter Patient was advised to call with any questions or concerns. If symptoms worsen patient was advised to follow up in our office or the Emergency Dept. Benefits, Risks, Contraindications, and Complications of recommended treatments were explained the patient understands and agrees to proceed with plan. CHRISTELLE Peace 01/27/2024 * Hellen Beaulieu - 01/27/2024 3:20 PM EST Nurse Note: Review of Systems Constitutional: Negative for fatigue and fever. HENT: Negative for congestion, ear pain and sore throat. Eyes: Negative for pain and redness. Respiratory: Negative for cough and shortness of breath. Cardiovascular: Negative for chest pain and palpitations. Gastrointestinal: Positive for abdominal pain, diarrhea, nausea and vomiting. Negative for constipation. Genitourinary: Negative for difficulty urinating and dysuria. Musculoskeletal: Negative for arthralgias and myalgias. Skin: Negative for rash and wound. Neurological: Negative for dizziness and headaches. documented in this [facility]12-11-2024 Instructions* Patient Instructions* CHRISTELLE Peace - 01/27/2024 3:20 PM EST Call your GI in [place]. Take omeprazole first thing in the am. Phenergan suppositories for nausea/vomiting. Patient was advised to call with any questions or concerns. If symptoms worsen patient was advised to follow up in our office or the Emergency Dept. Benefits, Risks, Contraindications, and Complications of recommended treatments were explained the patient understands and agrees to proceed with plan. documented in this [facility]12-04-2024 History of Present illness Narrative* Mesha Garcia PA-C - 01/20/2024 8:00 AM EST Subjective Patient ID: Kendall Vasques is a 38 y.o. female who presents for Follow-up (FUV bilat L4/5-L5/S1RFA o 12/11/23 reports she had 75% relief for 2 weeks then the pain returned worse than before she is very frustrated and does not want anymore injections. Today she is having pain I her Rt side radiating in to lt side lower back into rt hip, rates pain 9/10 now and 10/10 at worst with any activity, bending, lifting rt leg and sitting for to long makes the pain worse, describes as my hip locks up and she has to move to get relief, sharp, stabbing pain that is intermediate. ) She is taking Tylenol, Gabapentin TID and Tizanidine which she can only take at night as it make her drowsy and these are not helping her pain. She will need a RF on Gabapetentin send to [facility]. FLAQUITO score 48%. Meme Love RN 01/20/24 8:00 AM Patient is a 38-year-old female following up today after undergoing bilateral medial branch RFA covering the L4-S1 facet joint. This was done on 12/11/2023 and at this time unfortunately, has not given her any longstanding relief. She had 70% relief for about 2 weeks and then her pain returned and now she feels like it may be slightly worse than before. It is worse on the right side than the leftside. Worse with moving, lifting, bending and twisting. It is going into her right buttock. She states that she absolutely cannot have any more injections. She had some past trauma in the OR and she states it has just been traumatizing every time she has had to go to the OR and she does not want tohave to do this again. She is using gabapentin 900 mg 3 times a day, tizanidine at bedtime that does give her relief but makes her tired. She feels better if she can take the tizanidine more regularly but she cannot take it during the day because she is back to work. This makes her too tired. Review of Systems Constitutional: Negative. HENT: Negative. Eyes: Negative. Respiratory: Negative. Cardiovascular: Negative. Gastrointestinal: Negative. Endocrine: Negative. Genitourinary: Negative. Musculoskeletal: Positive for arthralgias, back pain, gait problem and myalgias. Skin: Negative. Allergic/Immunologic: Negative. Neurological: Positive for weakness and numbness. Hematological: Negative. Psychiatric/Behavioral: Negative. Objective Physical Exam Vitals and nursing note reviewed. Constitutional: General: She is not in acute distress. Appearance: Normal appearance. She is not ill-appearing. HENT: Head: Normocephalic and atraumatic. Right Ear: External ear normal. Left Ear: External ear normal. Nose: Nose normal. Mouth/Throat: Pharynx: Oropharynx is clear. Eyes: Conjunctiva/sclera: Conjunctivae normal. Cardiovascular: Rate and Rhythm: Normal rate and regular rhythm. Pulses: Normal pulses. Pulmonary: Effort: Pulmonary effort is normal. Breath sounds: Normal breath sounds. Musculoskeletal: General: Normal range of motion. Cervical back: Normal range of motion. Comments: 5/5 strength Skin: General: Skin is warm and dry. Neurological: General: No focal deficit present. Mental Status: She is alert and oriented to person, place, and time. Mental status is at baseline. Psychiatric: Mood and Affect: Mood normal. Behavior: Behavior normal. Thought Content: Thought content normal. Judgment: Judgment normal. Assessment/Plan Diagnoses and all orders for this visit: Musculoskeletal pain - methocarbamol (Robaxin) 500 mg tablet; Take 1 tablet (500 mg) by mouth 3 times a day for 10 days.PRN pain Spondylosis of lumbosacral region without myelopathy or radiculopathy Chronic pain syndrome Patient is a 38-year-old female who recently underwent bilateral medial branch RFA covering the L4-S1 facet joints. Unfortunately, she has not gotten any longstanding relief from this. She had short-lived relief but does not last halfway. We had a long stretch of the RFA process. I would recommend she give this a little bit more time but we also discussed other options. At this time, she absolutely does not want to have any other injections that would require her to go to the ER due to some past trauma. We discussed medication options. She is going to continue on gabapentin 900 mg 3 times aday but she is going to discontinue the tizanidine and trial methocarbamol. 500 mg 3 times a day as needed pain. She is going to follow-up in 1 month for reevaluation. Call the clinic sooner if necessary. [facility]: 1(474) 479-932410-25-2024 Miscellaneous Notes* Perioperative Nursing Note - Deirdre Crow RN - 12/11/2023 9:03 AM EDT Patient discharged via wheelchair to [facility], patient's at discharge elevator. * Perioperative Nursing Note - Deirdre Crow RN - 12/11/2023 8:57 AM EDT Patient sitting on side of bed. Tolerated well. Discharge instructions reviewed with patient. Patient provided with a copy. Patient verbalized understanding and denied questions. Silvia, patient's driving patient home. * Perioperative Nursing Note - Deirdre Crow RN - 12/11/2023 8:29 AM EDT Patient arrived back to unit. Drowsy but arouses easily to speech. Provided with beverage. [facility] Work Phone: 1(201) 627-450810-25-2024 Note* Perioperative Nursing Note - Deirdre Crow RN - 12/11/2023 9:03 AM EDT Patient discharged via wheelchair to [facility], patient's at discharge elevator. [facility]10[facility]25[facility] Note* Perioperative Nursing Note - Deirdre Crow RN - 12/11/2023 8:57 AM EDT Patient sitting on side of bed. Tolerated well. Discharge instructions reviewed with patient. Patient provided with a copy. Patient verbalized understanding and denied questions. Silvia, patient's driving patient home. [facility] Work Phone: [phone]) 293-829310-25-2024 Note* Perioperative Nursing Note - Deirdre Crow RN - 12/11/2023 8:29 AM EDT Patient arrived back to unit. Drowsy but arouses easily to speech. Provided with beverage. [facility] Work Phone: [phone]) 543-712310-25-2024 Attending History and physical note* Stef Maki DO - 12/11/2023 8:00 AM EDT H&P reviewed. The patient was examined and there are no changes to the H&P. Source Note - Ivelisse Gaston APRN-DECK MECHANIC - 11/30/2023 8:30 AM EDT Subjective Patient ID: Kendall Vasques is a 38 y.o. female who presents for Follow-up (FOLLOW UP BILATERAL L4-L5 AND L5-S1 MBB DONE ON 11/20/23, SHE STATES SHE DID GET RELIEF FROM 9-1230 SHE FELT 85% BETTER, SHE HAD A BRUISED FEELING NOT A SHARP STABBING PAIN, SHE WAS ABLE TO SWEEP, DO DISHES, BENDING WAS NOT PAINFUL, SHE HAD A HEADACHE AT 1233PM AND TOOK TYLENOL, HER PAIN RETURNED /PATIENT NOTES SHE HAS HAD 3 FALLS SINCE THE PROCEDURE ON 11/20/23 HER RIGHT LEG WILL JUST GIVE OUT, ).RIGHT SIDE HURTS MORETHAN THE LEFT, WHEN SHE BENDS SHE GETS A NUMB FEELING, HER FALLS HAVE HAPPENED FROM GOING FROM SITTING TO STANDING, PAIN SCORE 9/10, FLAQUITO=56% Latisha Rabago, [facility] 11/30/23 8:10 AM The patient is a 38-year-old female who presents today for a follow-up after undergoing her second bilateral L4-5 and L5-S1 medial branch block on 11/20/2023. Patient reports significant relief from this procedure with around 85% pain reduction overall for at least 4 hours. During that time she was able to improve her level of functioning at home and increase her activities. The pain has since returned, currently rated at 9/10 across her lower back. She did note that starting the Thursday afterthe procedure she has had 3 instances where she has fallen. She says she typically will stand up and her right lateral thigh will go numb causing her leg to buckle and her to fall. She has not sustained any injuries with these falls. However, given the significant relief she has obtained from the 2medial branch blocks, she is wanting to move forward with the RFA at this time. Review of Systems Constitutional: Negative. HENT: Negative. Eyes: Negative. Respiratory: Negative for cough, shortness of breath and wheezing. Cardiovascular: Negative for chest pain, palpitations and leg swelling. Endocrine: Negative. Genitourinary: Negative. Musculoskeletal: Positive for back pain and myalgias. Negative for arthralgias. Skin: Negative. Allergic/Immunologic: Negative. Neurological: Negative for facial asymmetry, weakness and light-headedness. Hematological: Negative for adenopathy. Does not bruise/bleed easily. Psychiatric/Behavioral: Negative for dysphoric mood and suicidal ideas. Objective Physical Exam Constitutional: General: She is not in acute distress. Appearance: Normal appearance. HENT: Head: Normocephalic. Mouth/Throat: Mouth: Mucous membranes are moist. Eyes: Extraocular Movements: Extraocular movements intact. Cardiovascular: Rate and Rhythm: Normal rate and regular rhythm. Pulses: Normal pulses. Heart sounds: Normal heart sounds. No murmur heard. No friction rub. No gallop. Pulmonary: Effort: Pulmonary effort is normal. Breath sounds: Normal breath sounds. No wheezing, rhonchi or rales. Abdominal: General: Abdomen is flat. Palpations: Abdomen is soft. Musculoskeletal: Cervical back: Normal range of motion. Right lower leg: No edema. Left lower leg: No edema. Comments: Ambulates without assistance Strength 5/5 BLE Lumbar facet loading positive Lymphadenopathy: Cervical: No cervical adenopathy. Skin: General: Skin is warm and dry. Neurological: General: No focal deficit present. Mental Status: She is alert and oriented to person, place, and time. Mental status is at baseline. Psychiatric: Mood and Affect: Mood normal. Behavior: Behavior normal. Assessment/Plan Diagnoses and all orders for this visit: Spondylosis of lumbosacral region without myelopathy or radiculopathy - gabapentin (Neurontin) 300 mg capsule; Take 3 capsules (900 mg) by mouth 3 times a day. - tiZANidine (Zanaflex) 4 mg capsule; Take 1 capsule (4 mg) by mouth every 8 hours if needed for muscle spasms. - [place] pain management; Future - Radiofrequency Ablation; Future Chronic pain syndrome - tiZANidine (Zanaflex) 4 mg capsule; Take 1 capsule (4 mg) by mouth every 8 hours if needed for muscle spasms. Stage 2 chronic kidney disease - tiZANidine (Zanaflex) 4 mg capsule; Take 1 capsule (4 mg) by mouth every 8 hours if needed for muscle spasms. Other orders - lidocaine PF (Xylocaine) 20 mg/mL (2 %) injection 200 mg - lidocaine PF (Xylocaine) 20 mg/mL (2 %) injection 200 mg - NPO Diet Except: Sips with meds; Effective now; Standing - Height and weight; Standing - POCT , urine; Standing - Type And Screen; Standing - Inpatient consult to Respiratory Care; Standing - Adult diet Regular; Standing - Vital Signs; Standing - Notify physician - Standard Parameters; Standing - Continue IV fluids ordered pre-procedure; Standing - Prior to Discharge O2 Weaning; Standing - Pulse oximetry, continuous; Standing - Discharge patient; Standing The patient is a 38-year-old female with a past medical history significant for the above-mentionedproblems. She is following up after her second lumbar MBB with significant relief greater than 4 hours. Given that she has tried and failed all reasonable conservative measures including medications and therapy, and considering the 2 medial branch blocks provided significant relief for 4 hours, sheis wanting to proceed with the RFA. We will move forward with the bilateral medial branch radiofrequency ablation covering the L4-S1 facet joints under fluoroscopy. The procedure was discussed, risksand benefits were discussed, patient is agreeable. No med holds needed. She has PTSD related to a full-term demise and loss the child in the operating room. She has trouble even being in an OR due to this. Because of her history, this procedure will be done with MAC sedation--moderate anesthesia. Per our conversation, she sounds like she could benefit from antianxiety medication prior to even entering the OR. Advised the patient to discuss this with the anesthesiologist the day of the procedure. She is aware of the risks of sedation, and accepts these. At her most recent visit her gabapentin was increased to 900 mg 3 times a day, and she has continued on tizanidine 4 mg 3 times a day as needed. She says both medications are effective in helping take the edge off of her pain, denies side effects to these medications. PDMP reviewed, refill sent forboth medications. She will follow-up after her injection for reevaluation, call the clinic sooner if needed. [facility] Work Phone: [phone] History and physical note* Stef Maki DO - 12/11/2023 8:00 AM EDT H&P reviewed. The patient was examined and there are no changes to the H&P. Source Note - CHRISTELLE Calvo - 11/30/2023 8:30 AM EDT Subjective Patient ID: Kendall Vasques is a 38 y.o. female who presents for Follow-up (FOLLOW UP BILATERAL L4-L5 AND L5-S1 MBB DONE ON 11/20/23, SHE STATES SHE DID GET RELIEF FROM 9-1230 SHE FELT 85% BETTER, SHE HAD A BRUISED FEELING NOT A SHARP STABBING PAIN, SHE WAS ABLE TO SWEEP, DO DISHES, BENDING WAS NOT PAINFUL, SHE HAD A HEADACHE AT 1233PM AND TOOK TYLENOL, HER PAIN RETURNED /PATIENT NOTES SHE HAS HAD 3 FALLS SINCE THE PROCEDURE ON 11/20/23 HER RIGHT LEG WILL JUST GIVE OUT, ).RIGHT SIDE HURTS MORETHAN THE LEFT, WHEN SHE BENDS SHE GETS A NUMB FEELING, HER FALLS HAVE HAPPENED FROM GOING FROM SITTING TO STANDING, PAIN SCORE 9/10, FLAQUITO=56% Latisha Rabago, [facility] 11/30/23 8:10 AM The patient is a 38-year-old female who presents today for a follow-up after undergoing her second bilateral L4-5 and L5-S1 medial branch block on 11/20/2023. Patient reports significant relief from this procedure with around 85% pain reduction overall for at least 4 hours. During that time she was able to improve her level of functioning at home and increase her activities. The pain has since returned, currently rated at 9/10 across her lower back. She did note that starting the Thursday afterthe procedure she has had 3 instances where she has fallen. She says she typically will stand up and her right lateral thigh will go numb causing her leg to buckle and her to fall. She has not sustained any injuries with these falls. However, given the significant relief she has obtained from the 2medial branch blocks, she is wanting to move forward with the RFA at this time. Review of Systems Constitutional: Negative. HENT: Negative. Eyes: Negative. Respiratory: Negative for cough, shortness of breath and wheezing. Cardiovascular: Negative for chest pain, palpitations and leg swelling. Endocrine: Negative. Genitourinary: Negative. Musculoskeletal: Positive for back pain and myalgias. Negative for arthralgias. Skin: Negative. Allergic/Immunologic: Negative. Neurological: Negative for facial asymmetry, weakness and light-headedness. Hematological: Negative for adenopathy. Does not bruise/bleed easily. Psychiatric/Behavioral: Negative for dysphoric mood and suicidal ideas. Objective Physical Exam Constitutional: General: She is not in acute distress. Appearance: Normal appearance. HENT: Head: Normocephalic. Mouth/Throat: Mouth: Mucous membranes are moist. Eyes: Extraocular Movements: Extraocular movements intact. Cardiovascular: Rate and Rhythm: Normal rate and regular rhythm. Pulses: Normal pulses. Heart sounds: Normal heart sounds. No murmur heard. No friction rub. No gallop. Pulmonary: Effort: Pulmonary effort is normal. Breath sounds: Normal breath sounds. No wheezing, rhonchi or rales. Abdominal: General: Abdomen is flat. Palpations: Abdomen is soft. Musculoskeletal: Cervical back: Normal range of motion. Right lower leg: No edema. Left lower leg: No edema. Comments: Ambulates without assistance Strength 5/5 BLE Lumbar facet loading positive Lymphadenopathy: Cervical: No cervical adenopathy. Skin: General: Skin is warm and dry. Neurological: General: No focal deficit present. Mental Status: She is alert and oriented to person, place, and time. Mental status is at baseline. Psychiatric: Mood and Affect: Mood normal. Behavior: Behavior normal. Assessment/Plan Diagnoses and all orders for this visit: Spondylosis of lumbosacral region without myelopathy or radiculopathy - gabapentin (Neurontin) 300 mg capsule; Take 3 capsules (900 mg) by mouth 3 times a day. - tiZANidine (Zanaflex) 4 mg capsule; Take 1 capsule (4 mg) by mouth every 8 hours if needed for muscle spasms. - [place] pain management; Future - Radiofrequency Ablation; Future Chronic pain syndrome - tiZANidine (Zanaflex) 4 mg capsule; Take 1 capsule (4 mg) by mouth every 8 hours if needed for muscle spasms. Stage 2 chronic kidney disease - tiZANidine (Zanaflex) 4 mg capsule; Take 1 capsule (4 mg) by mouth every 8 hours if needed for muscle spasms. Other orders - lidocaine PF (Xylocaine) 20 mg/mL (2 %) injection 200 mg - lidocaine PF (Xylocaine) 20 mg/mL (2 %) injection 200 mg - NPO Diet Except: Sips with meds; Effective now; Standing - Height and weight; Standing - POCT , urine; Standing - Type And Screen; Standing - Inpatient consult to Respiratory Care; Standing - Adult diet Regular; Standing - Vital Signs; Standing - Notify physician - Standard Parameters; Standing - Continue IV fluids ordered pre-procedure; Standing - Prior to Discharge O2 Weaning; Standing - Pulse oximetry, continuous; Standing - Discharge patient; Standing The patient is a 38-year-old female with a past medical history significant for the above-mentionedproblems. She is following up after her second lumbar MBB with significant relief greater than 4 hours. Given that she has tried and failed all reasonable conservative measures including medications and therapy, and considering the 2 medial branch blocks provided significant relief for 4 hours, sheis wanting to proceed with the RFA. We will move forward with the bilateral medial branch radiofrequency ablation covering the L4-S1 facet joints under fluoroscopy. The procedure was discussed, risksand benefits were discussed, patient is agreeable. No med holds needed. She has PTSD related to a full-term demise and loss the child in the operating room. She has trouble even being in an OR due to this. Because of her history, this procedure will be done with MAC sedation--moderate anesthesia. Per our conversation, she sounds like she could benefit from antianxiety medication prior to even entering the OR. Advised the patient to discuss this with the anesthesiologist the day of the procedure. She is aware of the risks of sedation, and accepts these. At her most recent visit her gabapentin was increased to 900 mg 3 times a day, and she has continued on tizanidine 4 mg 3 times a day as needed. She says both medications are effective in helping take the edge off of her pain, denies side effects to these medications. PDMP reviewed, refill sent forboth medications. She will follow-up after her injection for reevaluation, call the clinic sooner if needed. documented in this [facility] Work Phone: [phone] History of Present illness Narrative* CHRISTELLE Calvo - 11/30/2023 8:30 AM EDT Subjective Patient ID: Kendall Vasques is a 38 y.o. female who presents for Follow-up (FOLLOW UP BILATERAL L4-L5 AND L5-S1 MBB DONE ON 11/20/23, SHE STATES SHE DID GET RELIEF FROM 9-1230 SHE FELT 85% BETTER, SHE HAD A BRUISED FEELING NOT A SHARP STABBING PAIN, SHE WAS ABLE TO SWEEP, DO DISHES, BENDING WAS NOT PAINFUL, SHE HAD A HEADACHE AT 1233PM AND TOOK TYLENOL, HER PAIN RETURNED /PATIENT NOTES SHE HAS HAD 3 FALLS SINCE THE PROCEDURE ON 11/20/23 HER RIGHT LEG WILL JUST GIVE OUT, ).RIGHT SIDE HURTS MORETHAN THE LEFT, WHEN SHE BENDS SHE GETS A NUMB FEELING, HER FALLS HAVE HAPPENED FROM GOING FROM SITTING TO STANDING, PAIN SCORE 9/10, FLAQUITO=56% Latisha Rabago CLINIC OFFICE MANAGER 11/30/23 8:10 AM The patient is a 38-year-old female who presents today for a follow-up after undergoing her second bilateral L4-5 and L5-S1 medial branch block on 11/20/2023. Patient reports significant relief from this procedure with around 85% pain reduction overall for at least 4 hours. During that time she was able to improve her level of functioning at home and increase her activities. The pain has since returned, currently rated at 9/10 across her lower back. She did note that starting the Thursday afterthe procedure she has had 3 instances where she has fallen. She says she typically will stand up and her right lateral thigh will go numb causing her leg to buckle and her to fall. She has not sustained any injuries with these falls. However, given the significant relief she has obtained from the 2medial branch blocks, she is wanting to move forward with the RFA at this time. Review of Systems Constitutional: Negative. HENT: Negative. Eyes: Negative. Respiratory: Negative for cough, shortness of breath and wheezing. Cardiovascular: Negative for chest pain, palpitations and leg swelling. Endocrine: Negative. Genitourinary: Negative. Musculoskeletal: Positive for back pain and myalgias. Negative for arthralgias. Skin: Negative. Allergic/Immunologic: Negative. Neurological: Negative for facial asymmetry, weakness and light-headedness. Hematological: Negative for adenopathy. Does not bruise/bleed easily. Psychiatric/Behavioral: Negative for dysphoric mood and suicidal ideas. Objective Physical Exam Constitutional: General: She is not in acute distress. Appearance: Normal appearance. HENT: Head: Normocephalic. Mouth/Throat: Mouth: Mucous membranes are moist. Eyes: Extraocular Movements: Extraocular movements intact. Cardiovascular: Rate and Rhythm: Normal rate and regular rhythm. Pulses: Normal pulses. Heart sounds: Normal heart sounds. No murmur heard. No friction rub. No gallop. Pulmonary: Effort: Pulmonary effort is normal. Breath sounds: Normal breath sounds. No wheezing, rhonchi or rales. Abdominal: General: Abdomen is flat. Palpations: Abdomen is soft. Musculoskeletal: Cervical back: Normal range of motion. Right lower leg: No edema. Left lower leg: No edema. Comments: Ambulates without assistance Strength 5/5 BLE Lumbar facet loading positive Lymphadenopathy: Cervical: No cervical adenopathy. Skin: General: Skin is warm and dry. Neurological: General: No focal deficit present. Mental Status: She is alert and oriented to person, place, and time. Mental status is at baseline. Psychiatric: Mood and Affect: Mood normal. Behavior: Behavior normal. Assessment/Plan Diagnoses and all orders for this visit: Spondylosis of lumbosacral region without myelopathy or radiculopathy - gabapentin (Neurontin) 300 mg capsule; Take 3 capsules (900 mg) by mouth 3 times a day. - tiZANidine (Zanaflex) 4 mg capsule; Take 1 capsule (4 mg) by mouth every 8 hours if needed for muscle spasms. - [place] pain management; Future - Radiofrequency Ablation; Future Chronic pain syndrome - tiZANidine (Zanaflex) 4 mg capsule; Take 1 capsule (4 mg) by mouth every 8 hours if needed for muscle spasms. Stage 2 chronic kidney disease - tiZANidine (Zanaflex) 4 mg capsule; Take 1 capsule (4 mg) by mouth every 8 hours if needed for muscle spasms. Other orders - lidocaine PF (Xylocaine) 20 mg/mL (2 %) injection 200 mg - lidocaine PF (Xylocaine) 20 mg/mL (2 %) injection 200 mg - NPO Diet Except: Sips with meds; Effective now; Standing - Height and weight; Standing - POCT , urine; Standing - Type And Screen; Standing - Inpatient consult to Respiratory Care; Standing - Adult diet Regular; Standing - Vital Signs; Standing - Notify physician - Standard Parameters; Standing - Continue IV fluids ordered pre-procedure; Standing - Prior to Discharge O2 Weaning; Standing - Pulse oximetry, continuous; Standing - Discharge patient; Standing The patient is a 38-year-old female with a past medical history significant for the above-mentionedproblems. She is following up after her second lumbar MBB with significant relief greater than 4 hours. Given that she has tried and failed all reasonable conservative measures including medications and therapy, and considering the 2 medial branch blocks provided significant relief for 4 hours, sheis wanting to proceed with the RFA. We will move forward with the bilateral medial branch radiofrequency ablation covering the L4-S1 facet joints under fluoroscopy. The procedure was discussed, risksand benefits were discussed, patient is agreeable. No med holds needed. She has PTSD related to a full-term demise and loss the child in the operating room. She has trouble even being in an OR due to this. Because of her history, this procedure will be done with MAC sedation--moderate anesthesia. Per our conversation, she sounds like she could benefit from antianxiety medication prior to even entering the OR. Advised the patient to discuss this with the anesthesiologist the day of the procedure. She is aware of the risks of sedation, and accepts these. At her most recent visit her gabapentin was increased to 900 mg 3 times a day, and she has continued on tizanidine 4 mg 3 times a day as needed. She says both medications are effective in helping take the edge off of her pain, denies side effects to these medications. PDMP reviewed, refill sent forboth medications. She will follow-up after her injection for reevaluation, call the clinic sooner if needed. [facility] Phone: [phone]) [phone] Instructions* Patient Instructions* Annetta Hess RN - 11/30/2023 8:30 AM EDT Injection education completed written and verbally. [facility] Work Phone: [phone] Miscellaneous Notes* Perioperative Nursing Note - Deirdre Crow RN - 11/20/2023 9:15 AM EDT Patient discharged to discharge exit via wheelchair. Patient's Silvia providing transportation home. * Perioperative Nursing Note - Deirdre Crow RN - 11/20/2023 9:10 AM EDT Patient sitting on side of bed. Tolerated well. Discharged instructions reviewed and signed with patient. Patient verbalized understanding. * Perioperative Nursing Note - Deirdre Crow RN - 11/20/2023 8:52 AM EDT Patient arrived back to unit. Awake and provided with a beverage. Head of bed elevated. Patient tolerating well. [facility] Work Phone: [phone] Note* Perioperative Nursing Note - Deirdre Crow RN - 11/20/2023 9:15 AM EDT Patient discharged to discharge exit via wheelchair. Patient's Silvia providing transportation home. [facility] Note* Perioperative Nursing Note - Deirdre Crow RN - 11/20/2023 9:10 AM EDT Patient sitting on side of bed. Tolerated well. Discharged instructions reviewed and signed with patient. Patient verbalized understanding. [facility] Work Phone: [phone] Note* Perioperative Nursing Note - Deirdre Crow RN - 11/20/2023 8:52 AM EDT Patient arrived back to unit. Awake and provided with a beverage. Head of bed elevated. Patient tolerating well. [facility] Work Phone: [phone] Attending History and physical note* Stef Maki DO - 11/20/2023 8:20 AM EDT H&P reviewed. The patient was examined and there are no changes to the H&P. Source Note - Mesha Garcia PA-C - 11/04/2023 10:15 AM EDT Subjective Patient ID: Kendall Vasques is a 37 y.o. female who presents for Follow-up (FOLLOW UP BILATERAL L4-S1 MBB DONE ON 10/30/23 SHE GOT GREAT RELIEF AFTER THE PROCEDURE, SHE WAS ABLE TO BEND DOWN IN HERDRAWERS WITHOUT PULLING PAIN, SHE DID LAUNDRY, SWEEPING FLOORS, INTERCOURSE WITH HER SPOUSE WITHOUTPAIN, SHE STATES SHE HAD NUMBNESS DOWN INTO HER LEGS AFTER THE PROCEDURE FELT LIKE THEY WERE ASLEEPSO SHE STAYED ACTIVE TO GET THEM MOVMING, HER PAIN RETURNED AFTER 3 HOURS).STABBING PAIN TO THE LOWER BACK WITH REP MOTION, TRANSITIONING,BENDING,FIRST THING IN THE MORNING GETTING OUT OF BED, NO NUMBNESS IN LEGS, HOME STRETCHING EXERCISES FROM PHYSICAL THERAPY, ALTERNATING ICE/HEAT, TYLENOL, GABAPENTIN AND TIZANIDINE, PAIN SCORE 6/10, FLAQUITO-42%, ETOH NO Latisha Rabago, CLINIC OFFICE MANAGER 11/04/23 10:07 AM Patient is a 37-year-old female who presents today for follow-up after undergoing bilateral medial branch block covering the L4-S1 facet joints. This was the first 1. It was done on 10/30/2023. She had 90% relief for 3 hours. She was able to sweep, clean the floors, have intercourse with her husbandand do certain things. She states that her overall went very well. Unfortunate, patient has PTSD that she did not realize is going to be a problem. She had a full-term demise and lost the child in the operating room. Patient states that she did not think she would have a problem in the operating room but being in that environment with the smell and everything going on was very bothersome to her. She was tearful and this overall somewhat derailed the injection. She has lower back pain worse with standing, worse with lifting heavy objects, worse with twisting and certain activities. She rates it a 6/10 pain left greater than right side. Right after the recent injection on 10/30/2023 she had no pain afterward for 3 hours. It then started to slowly return. Itcan get up to a 10/10 with activities. She is not able to take anti-inflammatory medications due tokidney function issues. She did not tolerate Lyrica. Because side effects. She is using gabapentin and tizanidine both lower doses than what she was on in the past with some improvement but not enough. She is using gabapentin 300 mg 3 times a day that she feels has given her some relief but she wonders about getting more. Review of Systems Constitutional: Negative. HENT: Negative. Eyes: Negative. Respiratory: Negative. Cardiovascular: Negative. Gastrointestinal: Negative. Endocrine: Negative. Genitourinary: Negative. Musculoskeletal: Positive for arthralgias, back pain and myalgias. Skin: Negative. Allergic/Immunologic: Negative. Neurological: Positive for weakness and numbness. Hematological: Negative. Psychiatric/Behavioral: Negative. Objective Physical Exam Vitals and nursing note reviewed. Constitutional: General: She is not in acute distress. Appearance: Normal appearance. She is not ill-appearing. HENT: Head: Normocephalic and atraumatic. Right Ear: External ear normal. Left Ear: External ear normal. Nose: Nose normal. Mouth/Throat: Pharynx: Oropharynx is clear. Eyes: Conjunctiva/sclera: Conjunctivae normal. Cardiovascular: Rate and Rhythm: Normal rate and regular rhythm. Pulses: Normal pulses. Pulmonary: Effort: Pulmonary effort is normal. Breath sounds: Normal breath sounds. Musculoskeletal: General: Normal range of motion. Cervical back: Normal range of motion. Comments: 5/5 strength Pain with compression of the bilateral lumbar facet joints Increased lower back pain with bilateral facet loading Skin: General: Skin is warm and dry. Neurological: General: No focal deficit present. Mental Status: She is alert and oriented to person, place, and time. Mental status is at baseline. Psychiatric: Mood and Affect: Mood normal. Behavior: Behavior normal. Thought Content: Thought content normal. Judgment: Judgment normal. MR lumbar spine wo IV contrast Order: [id number] Impression IMPRESSION: Lumbar spondylosis at L4-5 and L5-S1 levels, as described. Narrative EXAM: MRI SPINE LUMBAR WITHOUT CONTRAST HISTORY: Severe back pain COMPARISON: MRI lumbar spine 05/27/2018, CT abdomen 06/10/2023. TECHNIQUE/PROTOCOL: Noncontrast lumbar spine MR protocol (Sagittal T1, T2, STIR and axial T1, T2 sequences). FINDINGS: Five lumbar-type vertebral bodies with maintained heights. There is mild retrolisthesis of L5 on S1. No acute or aggressive marrow signal changes. No acute prevertebral or paraspinal soft tissue abnormalities. Conus terminates at L1-2 level. Visualized distal spinal cord and the cauda equina are morphologically normal. There is mild narrowing of disc space at L5-S1 level with mild marginal spurring, Schmorl's nodes and degenerative endplate changes. Otherwise, the disc spaces are preserved. There are disc desiccation at L4-5 and L5-S1 levels. At L4-5 level, there is mild diffuse disc bulging with right-sided predominance. There is central annular fissure. No spinal canal narrowing. Bilateral mild neural foraminal narrowing, right more than left. Mild ligamentum flavum thickening. At L5-S1 level, there is mild diffuse disc bulging with right-sided predominance, superimposed with small central disc protrusion. Mild spinal canal and right lateral recess narrowing. Mild right neural foraminal narrowing. No disc bulge/herniation, high-grade spinal canal or foraminal narrowing are seen at other levels. Exam End: 09/17/23 10:54 Specimen Collected: 09/17/23 10:27 Last Resulted: 09/20/23 02:23 Received From: 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 Chronic pain syndrome Other orders - NPO Diet Except: Sips with meds; Effective now; Standing - Height and weight; Standing - Insert and maintain peripheral IV; Standing - Saline lock IV; Standing - POCT , urine; Standing - Type And Screen; Standing - Inpatient consult to Respiratory Care; Standing - lactated Ringer's infusion - Adult diet Regular; Standing - Vital Signs; Standing - Notify physician - Standard Parameters; Standing - Continue IV fluids ordered pre-procedure; Standing - Prior to Discharge O2 Weaning; Standing - Pulse oximetry, continuous; Standing - Discharge patient; Standing - iohexol (OMNIPaque) 300 mg iodine/mL solution 3 mL - lidocaine PF (Xylocaine) 20 mg/mL (2 %) injection 200 mg - bupivacaine PF (Marcaine) 0.5 % (5 mg/mL) injection 15 mg Patient is a 37-year-old female with the above-mentioned medical diagnoses following up today afterundergoing bilateral medial branch block covering the L4-S1 facet joints. This is the first 1. It was done on 10/30/2023. She had very significant relief with this. 90% for 3 hours followed by 80% relief and then it slowly returned. Unfortunately, due to the whole process being in the OR and the loss she experienced in the OR and the setting caused issues and she has PTSD from the loss. We had a long discussion about this. She states that the injection was very beneficial but she cannot dothis again. It was just too traumatic for her because of the above-mentioned things. At this time, we will plan to pursue bilateral medial right tract covering the L4-S1 facet joints under fluoroscopy for a second time once again for diagnostic purposes. Because of her history this will be done with MAC sedation-moderate anesthesia. She is aware of the risks. She accepts them. She will follow-up 1 week after the injection for reevaluation. She will call the clinic in the interim should she require anything from our services. [facility] Work Phone: 1([phone]) [phone] History and physical note* Stef Maki DO - 11/20/2023 8:20 AM EDT H&P reviewed. The patient was examined and there are no changes to the H&P. Source Note - Mesha Garcia PA-C - 11/04/2023 10:15 AM EDT Subjective Patient ID: Kendall Vasques is a 37 y.o. female who presents for Follow-up (FOLLOW UP BILATERAL L4-S1 MBB DONE ON 10/30/23 SHE GOT GREAT RELIEF AFTER THE PROCEDURE, SHE WAS ABLE TO BEND DOWN IN HERDRAWERS WITHOUT PULLING PAIN, SHE DID LAUNDRY, SWEEPING FLOORS, INTERCOURSE WITH HER SPOUSE WITHOUTPAIN, SHE STATES SHE HAD NUMBNESS DOWN INTO HER LEGS AFTER THE PROCEDURE FELT LIKE THEY WERE ASLEEPSO SHE STAYED ACTIVE TO GET THEM MOVMING, HER PAIN RETURNED AFTER 3 HOURS).STABBING PAIN TO THE LOWER BACK WITH REP MOTION, TRANSITIONING,BENDING,FIRST THING IN THE MORNING GETTING OUT OF BED, NO NUMBNESS IN LEGS, HOME STRETCHING EXERCISES FROM PHYSICAL THERAPY, ALTERNATING ICE/HEAT, TYLENOL, GABAPENTIN AND TIZANIDINE, PAIN SCORE 6/10, FLAQUITO-42%, ETOH NO Latisha Rabago, CLINIC OFFICE MANAGER 11/04/23 10:07 AM Patient is a 37-year-old female who presents today for follow-up after undergoing bilateral medial branch block covering the L4-S1 facet joints. This was the first 1. It was done on 10/30/2023. She had 90% relief for 3 hours. She was able to sweep, clean the floors, have intercourse with her husbandand do certain things. She states that her overall went very well. Unfortunate, patient has PTSD that she did not realize is going to be a problem. She had a full-term demise and lost the child in the operating room. Patient states that she did not think she would have a problem in the operating room but being in that environment with the smell and everything going on was very bothersome to her. She was tearful and this overall somewhat derailed the injection. She has lower back pain worse with standing, worse with lifting heavy objects, worse with twisting and certain activities. She rates it a 6/10 pain left greater than right side. Right after the recent injection on 10/30/2023 she had no pain afterward for 3 hours. It then started to slowly return. Itcan get up to a 10/10 with activities. She is not able to take anti-inflammatory medications due tokidney function issues. She did not tolerate Lyrica. Because side effects. She is using gabapentin and tizanidine both lower doses than what she was on in the past with some improvement but not enough. She is using gabapentin 300 mg 3 times a day that she feels has given her some relief but she wonders about getting more. Review of Systems Constitutional: Negative. HENT: Negative. Eyes: Negative. Respiratory: Negative. Cardiovascular: Negative. Gastrointestinal: Negative. Endocrine: Negative. Genitourinary: Negative. Musculoskeletal: Positive for arthralgias, back pain and myalgias. Skin: Negative. Allergic/Immunologic: Negative. Neurological: Positive for weakness and numbness. Hematological: Negative. Psychiatric/Behavioral: Negative. Objective Physical Exam Vitals and nursing note reviewed. Constitutional: General: She is not in acute distress. Appearance: Normal appearance. She is not ill-appearing. HENT: Head: Normocephalic and atraumatic. Right Ear: External ear normal. Left Ear: External ear normal. Nose: Nose normal. Mouth/Throat: Pharynx: Oropharynx is clear. Eyes: Conjunctiva/sclera: Conjunctivae normal. Cardiovascular: Rate and Rhythm: Normal rate and regular rhythm. Pulses: Normal pulses. Pulmonary: Effort: Pulmonary effort is normal. Breath sounds: Normal breath sounds. Musculoskeletal: General: Normal range of motion. Cervical back: Normal range of motion. Comments: 5/5 strength Pain with compression of the bilateral lumbar facet joints Increased lower back pain with bilateral facet loading Skin: General: Skin is warm and dry. Neurological: General: No focal deficit present. Mental Status: She is alert and oriented to person, place, and time. Mental status is at baseline. Psychiatric: Mood and Affect: Mood normal. Behavior: Behavior normal. Thought Content: Thought content normal. Judgment: Judgment normal. MR lumbar spine wo IV contrast Order: [id number] Impression IMPRESSION: Lumbar spondylosis at L4-5 and L5-S1 levels, as described. Narrative EXAM: MRI SPINE LUMBAR WITHOUT CONTRAST HISTORY: Severe back pain COMPARISON: MRI lumbar spine 05/27/2018, CT abdomen 06/10/2023. TECHNIQUE/PROTOCOL: Noncontrast lumbar spine MR protocol (Sagittal T1, T2, STIR and axial T1, T2 sequences). FINDINGS: Five lumbar-type vertebral bodies with maintained heights. There is mild retrolisthesis of L5 on S1. No acute or aggressive marrow signal changes. No acute prevertebral or paraspinal soft tissue abnormalities. Conus terminates at L1-2 level. Visualized distal spinal cord and the cauda equina are morphologically normal. There is mild narrowing of disc space at L5-S1 level with mild marginal spurring, Schmorl's nodes and degenerative endplate changes. Otherwise, the disc spaces are preserved. There are disc desiccation at L4-5 and L5-S1 levels. At L4-5 level, there is mild diffuse disc bulging with right-sided predominance. There is central annular fissure. No spinal canal narrowing. Bilateral mild neural foraminal narrowing, right more than left. Mild ligamentum flavum thickening. At L5-S1 level, there is mild diffuse disc bulging with right-sided predominance, superimposed with small central disc protrusion. Mild spinal canal and right lateral recess narrowing. Mild right neural foraminal narrowing. No disc bulge/herniation, high-grade spinal canal or foraminal narrowing are seen at other levels. Exam End: 09/17/23 10:54 Specimen Collected: 09/17/23 10:27 Last Resulted: 09/20/23 02:23 Received From: 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 Chronic pain syndrome Other orders - NPO Diet Except: Sips with meds; Effective now; Standing - Height and weight; Standing - Insert and maintain peripheral IV; Standing - Saline lock IV; Standing - POCT , urine; Standing - Type And Screen; Standing - Inpatient consult to Respiratory Care; Standing - lactated Ringer's infusion - Adult diet Regular; Standing - Vital Signs; Standing - Notify physician - Standard Parameters; Standing - Continue IV fluids ordered pre-procedure; Standing - Prior to Discharge O2 Weaning; Standing - Pulse oximetry, continuous; Standing - Discharge patient; Standing - iohexol (OMNIPaque) 300 mg iodine/mL solution 3 mL - lidocaine PF (Xylocaine) 20 mg/mL (2 %) injection 200 mg - bupivacaine PF (Marcaine) 0.5 % (5 mg/mL) injection 15 mg Patient is a 37-year-old female with the above-mentioned medical diagnoses following up today afterundergoing bilateral medial branch block covering the L4-S1 facet joints. This is the first 1. It was done on 10/30/2023. She had very significant relief with this. 90% for 3 hours followed by 80% relief and then it slowly returned. Unfortunately, due to the whole process being in the OR and the loss she experienced in the OR and the setting caused issues and she has PTSD from the loss. We had a long discussion about this. She states that the injection was very beneficial but she cannot dothis again. It was just too traumatic for her because of the above-mentioned things. At this time, we will plan to pursue bilateral medial right tract covering the L4-S1 facet joints under fluoroscopy for a second time once again for diagnostic purposes. Because of her history this will be done with MAC sedation-moderate anesthesia. She is aware of the risks. She accepts them. She will follow-up 1 week after the injection for reevaluation. She will call the clinic in the interim should she require anything from our services. documented in this [facility] Work Phone: [phone] History of Present illness Narrative* Mesha Garcia PA-C - 11/04/2023 10:15 AM EDT Subjective Patient ID: Kendall Vasques is a 37 y.o. female who presents for Follow-up (FOLLOW UP BILATERAL L4-S1 MBB DONE ON 10/30/23 SHE GOT GREAT RELIEF AFTER THE PROCEDURE, SHE WAS ABLE TO BEND DOWN IN HERDRAWERS WITHOUT PULLING PAIN, SHE DID LAUNDRY, SWEEPING FLOORS, INTERCOURSE WITH HER SPOUSE WITHOUTPAIN, SHE STATES SHE HAD NUMBNESS DOWN INTO HER LEGS AFTER THE PROCEDURE FELT LIKE THEY WERE ASLEEPSO SHE STAYED ACTIVE TO GET THEM MOVMING, HER PAIN RETURNED AFTER 3 HOURS).STABBING PAIN TO THE LOWER BACK WITH REP MOTION, TRANSITIONING,BENDING,FIRST THING IN THE MORNING GETTING OUT OF BED, NO NUMBNESS IN LEGS, HOME STRETCHING EXERCISES FROM PHYSICAL THERAPY, ALTERNATING ICE/HEAT, TYLENOL, GABAPENTIN AND TIZANIDINE, PAIN SCORE 6/10, FLAQUITO-42%, ETOH NO Latisha Rabago, CLINIC OFFICE MANAGER 11/04/23 10:07 AM Patient is a 37-year-old female who presents today for follow-up after undergoing bilateral medial branch block covering the L4-S1 facet joints. This was the first 1. It was done on 10/30/2023. She had 90% relief for 3 hours. She was able to sweep, clean the floors, have intercourse with her husbandand do certain things. She states that her overall went very well. Unfortunate, patient has PTSD that she did not realize is going to be a problem. She had a full-term demise and lost the child in the operating room. Patient states that she did not think she would have a problem in the operating room but being in that environment with the smell and everything going on was very bothersome to her. She was tearful and this overall somewhat derailed the injection. She has lower back pain worse with standing, worse with lifting heavy objects, worse with twisting and certain activities. She rates it a 6/10 pain left greater than right side. Right after the recent injection on 10/30/2023 she had no pain afterward for 3 hours. It then started to slowly return. Itcan get up to a 10/10 with activities. She is not able to take anti-inflammatory medications due tokidney function issues. She did not tolerate Lyrica. Because side effects. She is using gabapentin and tizanidine both lower doses than what she was on in the past with some improvement but not enough. She is using gabapentin 300 mg 3 times a day that she feels has given her some relief but she wonders about getting more. Review of Systems Constitutional: Negative. HENT: Negative. Eyes: Negative. Respiratory: Negative. Cardiovascular: Negative. Gastrointestinal: Negative. Endocrine: Negative. Genitourinary: Negative. Musculoskeletal: Positive for arthralgias, back pain and myalgias. Skin: Negative. Allergic/Immunologic: Negative. Neurological: Positive for weakness and numbness. Hematological: Negative. Psychiatric/Behavioral: Negative. Objective Physical Exam Vitals and nursing note reviewed. Constitutional: General: She is not in acute distress. Appearance: Normal appearance. She is not ill-appearing. HENT: Head: Normocephalic and atraumatic. Right Ear: External ear normal. Left Ear: External ear normal. Nose: Nose normal. Mouth/Throat: Pharynx: Oropharynx is clear. Eyes: Conjunctiva/sclera: Conjunctivae normal. Cardiovascular: Rate and Rhythm: Normal rate and regular rhythm. Pulses: Normal pulses. Pulmonary: Effort: Pulmonary effort is normal. Breath sounds: Normal breath sounds. Musculoskeletal: General: Normal range of motion. Cervical back: Normal range of motion. Comments: 5/5 strength Pain with compression of the bilateral lumbar facet joints Increased lower back pain with bilateral facet loading Skin: General: Skin is warm and dry. Neurological: General: No focal deficit present. Mental Status: She is alert and oriented to person, place, and time. Mental status is at baseline. Psychiatric: Mood and Affect: Mood normal. Behavior: Behavior normal. Thought Content: Thought content normal. Judgment: Judgment normal. MR lumbar spine wo IV contrast Order: [id number] Impression IMPRESSION: Lumbar spondylosis at L4-5 and L5-S1 levels, as described. Narrative EXAM: MRI SPINE LUMBAR WITHOUT CONTRAST HISTORY: Severe back pain COMPARISON: MRI lumbar spine 05/27/2018, CT abdomen 06/10/2023. TECHNIQUE/PROTOCOL: Noncontrast lumbar spine MR protocol (Sagittal T1, T2, STIR and axial T1, T2 sequences). FINDINGS: Five lumbar-type vertebral bodies with maintained heights. There is mild retrolisthesis of L5 on S1. No acute or aggressive marrow signal changes. No acute prevertebral or paraspinal soft tissue abnormalities. Conus terminates at L1-2 level. Visualized distal spinal cord and the cauda equina are morphologically normal. There is mild narrowing of disc space at L5-S1 level with mild marginal spurring, Schmorl's nodes and degenerative endplate changes. Otherwise, the disc spaces are preserved. There are disc desiccation at L4-5 and L5-S1 levels. At L4-5 level, there is mild diffuse disc bulging with right-sided predominance. There is central annular fissure. No spinal canal narrowing. Bilateral mild neural foraminal narrowing, right more than left. Mild ligamentum flavum thickening. At L5-S1 level, there is mild diffuse disc bulging with right-sided predominance, superimposed with small central disc protrusion. Mild spinal canal and right lateral recess narrowing. Mild right neural foraminal narrowing. No disc bulge/herniation, high-grade spinal canal or foraminal narrowing are seen at other levels. Exam End: 09/17/23 10:54 Specimen Collected: 09/17/23 10:27 Last Resulted: 09/20/23 02:23 Received From: 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 Chronic pain syndrome Other orders - NPO Diet Except: Sips with meds; Effective now; Standing - Height and weight; Standing - Insert and maintain peripheral IV; Standing - Saline lock IV; Standing - POCT , urine; Standing - Type And Screen; Standing - Inpatient consult to Respiratory Care; Standing - lactated Ringer's infusion - Adult diet Regular; Standing - Vital Signs; Standing - Notify physician - Standard Parameters; Standing - Continue IV fluids ordered pre-procedure; Standing - Prior to Discharge O2 Weaning; Standing - Pulse oximetry, continuous; Standing - Discharge patient; Standing - iohexol (OMNIPaque) 300 mg iodine/mL solution 3 mL - lidocaine PF (Xylocaine) 20 mg/mL (2 %) injection 200 mg - bupivacaine PF (Marcaine) 0.5 % (5 mg/mL) injection 15 mg Patient is a 37-year-old female with the above-mentioned medical diagnoses following up today afterundergoing bilateral medial branch block covering the L4-S1 facet joints. This is the first 1. It was done on 10/30/2023. She had very significant relief with this. 90% for 3 hours followed by 80% relief and then it slowly returned. Unfortunately, due to the whole process being in the OR and the loss she experienced in the OR and the setting caused issues and she has PTSD from the loss. We had a long discussion about this. She states that the injection was very beneficial but she cannot dothis again. It was just too traumatic for her because of the above-mentioned things. At this time, we will plan to pursue bilateral medial right tract covering the L4-S1 facet joints under fluoroscopy for a second time once again for diagnostic purposes. Because of her history this will be done with MAC sedation-moderate anesthesia. She is aware of the risks. She accepts them. She will follow-up 1 week after the injection for reevaluation. She will call the clinic in the interim should she require anything from our services. documented in this [facility] Work Phone: [phone]) 616-974309-18-2024 Instructions* Patient Instructions* Annetta Hess RN - 11/04/2023 10:15 AM EDT Injection education completed written and verbally. [facility] Work Phone: 1([phone]) 114-809709-13-2024 Miscellaneous Notes* Perioperative Nursing Note - Meme Love RN - 10/30/2023 11:13 AM EDT Discharge instructions reviewed by Deirdre Encinas RN no questions and verbalized understanding. discharged to exit via wheel chair to be driven home by romel kyle well [facility] Work Phone: [phone]) 372-119909-13-2024 Note* Perioperative Nursing Note - Meme Love RN - 10/30/2023 11:13 AM EDT Discharge instructions reviewed by Deirdre Encinas RN no questions and verbalized understanding. discharged to exit via wheel chair to be driven home by romel kyle well [facility] Work Phone: [phone]) [phone] NoteTable formatting from the original result was not included. Procedure Medial Nerve Branch Block Indication Spondylosis of lumbosacral region without myelopathy or radiculopathy Medications lidocaine PF (Xylocaine) 20 mg/mL (2 %) injection 6 mL BUPivacaine HCl (Marcaine) 0.5 % (5 mg/mL) injection 6 mL gadoterate meglumine (Dotarem) 0.5 mmol/mL contrast injection 2.5 mL (Totals for administrations occurring from 1036 to 1051 on 10/30/23) Preprocedure A history and physical has been performed, and patient medication allergies have been reviewed. The patient's tolerance of previous anesthesia has been reviewed. The risks and benefits of the procedure and the sedation options and risks were discussed with the patient. All questions were answered and informed consent obtained. Details of the Procedure Diagnosis: M47.817, lumbosacral spondyloarthropathy Procedure: Bilateral lumbar medial branches/posterior rami to target the L4/5 and L5-S1 facet joints under fluoroscopic guidance Anesthesia: Local Complications: None Dotarem utilized due to patient allergy. After informed consent was obtained, the patient was brought to the procedure room and placed in the prone position. The back area was prepped and draped in the usual sterile fashion. Using fluoroscopic guidance, skin and subcutaneous tissue overlying the needle trajectories to the target sites were anesthetized with 2.0% lidocaine. 23-gauge spinal needles were advanced under fluoroscopic guidance to the appropriate anatomic landmarks. Needle tip position was confirmed in AP and oblique views initially on the right side, then on the left side. Injection of small amount of contrast at each needle tip revealed appropriate spread without vascular uptake. Subsequently, 0.5 mL of 0.5% bupivacaine was injected at each needle tip. The needles were removed. The patient was then transferred to the recovery room in stable condition. The patient will be assessed in recovery area for pain relief. Procedure Provider Stef Maki DO Procedure Location [facility] OR [address] [place] [id number] Referring Provider Mesha Garcia PA-C [address] [place] [address] Work Phone: [phone] Attending History and physical note* Stef Maki DO - 10/30/2023 9:50 AM EDT H&P reviewed. The patient was examined and there are no changes to the H&P. Source Note - Mesha Garcia PA-C - 10/08/2023 9:15 AM EDT Images from the original note were not included. Subjective Patient ID: Kendall Vasques is a 37 y.o. female who presents for Back Pain (FUV back pain she was last seen by Dr. Eubanks 2018. Today she reports having pain in her bilat lower back L>R rates pain score 7/10 now and 10/10 at its worst, describes sharp, stabbing and cramping, tingling in lt leg into her foot. She has started Gabapentin, tizanidine, chiropractor, PT these have helped her paina little, but only short term, had an MRI 09/17/23 shows bulging disc in lumbar region. She was last seen in 2019, went off her meds from Dr. Eubanks because she was . ) in the past she has had good relief with gabapentin and injections. She is here to get her pain under control, screenings [place] N/A, depression she is treated for this, smoking negative, FLAQUITO 50%, SOAPP 7. Meme Love RN 10/08/23 9:03 AM Patient is a 37-year-old female who presents today for follow-up after a few year hiatus. Patient ended up stopping her gabapentin and she got . She states that she lost the child. She then ended up having to have a hysterectomy. She saw a different doctor who is closer to home for her backpain and had a recent MRI. She is here today to further discuss her back pain. She has lower back pain worse with standing, worse with lifting heavy objects, worse with twisting and certain activities. She rates it a 7/10 pain left greater than right side. It can get up to a 10/10 with activities. She is not able to take anti-inflammatory medications due to kidney function issues. She did not tole rate Lyrica. Because side effects. She is using gabapentin and tizanidine both lower doses than what she was on in the past with some improvement but not enough. She uses gabapentin 100 mg twice daily and tizanidine 2 mg 3 times a day as needed. Unfortunately, these do not give her the relief she is looking for. These medications do give her some relief. Unfortunately her pain affects her ambulatory status. Affects her quality life and affects her activities and she is here today to review her MRI once again and discuss her options. Review of Systems Constitutional: Negative. HENT: Negative. Eyes: Negative. Respiratory: Negative. Cardiovascular: Negative. Gastrointestinal: Negative. Endocrine: Negative. Genitourinary: Negative. Musculoskeletal: Positive for arthralgias, back pain, gait problem and myalgias. Skin: Negative. Allergic/Immunologic: Negative. Neurological: Positive for weakness and numbness. Hematological: Negative. Psychiatric/Behavioral: Negative. Objective Physical Exam Vitals and nursing note reviewed. Constitutional: General: She is not in acute distress. Appearance: Normal appearance. She is not ill-appearing. HENT: Head: Normocephalic and atraumatic. Right Ear: External ear normal. Left Ear: External ear normal. Nose: Nose normal. Mouth/Throat: Pharynx: Oropharynx is clear. Eyes: Conjunctiva/sclera: Conjunctivae normal. Cardiovascular: Rate and Rhythm: Normal rate and regular rhythm. Pulses: Normal pulses. Pulmonary: Effort: Pulmonary effort is normal. Breath sounds: Normal breath sounds. Musculoskeletal: General: Normal range of motion. Cervical back: Normal range of motion. Comments: 5/5 lower extremity strength Pain with compression of the bilateral lumbar facet joints Increased lower back pain with bilateral facet loading Skin: General: Skin is warm and dry. Neurological: General: No focal deficit present. Mental Status: She is alert and oriented to person, place, and time. Mental status is at baseline. Psychiatric: Mood and Affect: Mood normal. Behavior: Behavior normal. Thought Content: Thought content normal. Judgment: Judgment normal. XR pelvis 1-2 views XR lumbar spine 2-3 views Status: Final result PACS Images Show images for XR lumbar spine 2-3 views Signed by Signed Time Phone Pager Kirk Winkler MD 08/05/2023 11:25 [id number] Exam Information Status Exam Begun Exam Ended Final 08/04/2023 08:34 08/04/2023 08:45 Study Result Narrative & Impression Interpreted By: Kirk Winkler, STUDY: XR LUMBAR SPINE 2-3 VIEWS; XR PELVIS 1-2 VIEWS; 08/04/2023 8:45 am; 08/04/2023 8:44 am INDICATION: Signs/Symptoms:LUMBAGO WITH SCIATICA, LEFT SIDE; Signs/Symptoms:LUMBAGO WITH SCIATICA LEFT SIDE. COMPARISON: AP view pelvis from 04/10/2015 and lumbar spine images from 04/10/2015.. ACCESSION NUMBER(S): [id number]; [id number] ORDERING CLINICIAN: RICKY GUERRERO TECHNIQUE: AP view pelvis and 3 views of the lumbar spine were obtained. FINDINGS: Slight lumbar dextroscoliosis centered at L2. Slight disc space narrowing at L5-S1. Disc space height was otherwise preserved. There is mild interfacet hypertrophy at L4-5 and L5-S1. Mild sclerotic arthritic changes in both SI joints. Bilateral hip joint spaces are preserved. No lytic or blastic bone lesion. No listhesis. No compression fracture. No pelvic fracture. Mild retained colonic stool and gas. Nonobstructive, nonspecific bowel gas pattern. IMPRESSION: Very mild scoliosis and mild DJD in the distal lumbar spine and both SI joints as described. MACRO: None Signed by: Kirk Winkler 08/05/2023 11:25 AM Dictation workstation: [id number] MR lumbar spine wo IV contrast Order: [id number] Impression IMPRESSION: Lumbar spondylosis at L4-5 and L5-S1 levels, as described. Narrative EXAM: MRI SPINE LUMBAR WITHOUT CONTRAST HISTORY: Severe back pain COMPARISON: MRI lumbar spine 05/27/2018, CT abdomen 06/10/2023. TECHNIQUE/PROTOCOL: Noncontrast lumbar spine MR protocol (Sagittal T1, T2, STIR and axial T1, T2 sequences). FINDINGS: Five lumbar-type vertebral bodies with maintained heights. There is mild retrolisthesis of L5 on S1. No acute or aggressive marrow signal changes. No acute prevertebral or paraspinal soft tissue abnormalities. Conus terminates at L1-2 level. Visualized distal spinal cord and the cauda equina are morphologically normal. There is mild narrowing of disc space at L5-S1 level with mild marginal spurring, Schmorl's nodes and degenerative endplate changes. Otherwise, the disc spaces are preserved. There are disc desiccation at L4-5 and L5-S1 levels. At L4-5 level, there is mild diffuse disc bulging with right-sided predominance. There is central annular fissure. No spinal canal narrowing. Bilateral mild neural foraminal narrowing, right more than left. Mild ligamentum flavum thickening. At L5-S1 level, there is mild diffuse disc bulging with right-sided predominance, superimposed with small central disc protrusion. Mild spinal canal and right lateral recess narrowing. Mild right neural foraminal narrowing. No disc bulge/herniation, high-grade spinal canal or foraminal narrowing are seen at other levels. Exam End: 09/17/23 10:54 Specimen Collected: 09/17/23 10:27 Last Resulted: 09/20/23 02:23 Received From: [facility] Result Received: 09/22/23 10:02 Assessment/Plan Diagnoses and all orders for this visit: Spondylosis of lumbosacral region without myelopathy or radiculopathy - gabapentin (Neurontin) 300 mg capsule; Take 1 capsule (300 mg) by mouth 3 times a day. - diazePAM (Valium) 5 mg tablet; Take 1 tablet (5 mg) by mouth 1 time for 1 dose. 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 - Medial Nerve Branch Block; Future - FL pain management; Future Chronic pain syndrome - diazePAM (Valium) 5 mg tablet; Take 1 tablet (5 mg) by mouth 1 time for 1 dose. 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 Stage 2 chronic kidney disease - diazePAM (Valium) 5 mg tablet; Take 1 tablet (5 mg) by mouth 1 time for 1 dose. 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 Other orders - NPO Diet Except: Sips with meds; Effective now; Standing - Height and weight; Standing - Insert and maintain peripheral IV; Standing - Saline lock IV; Standing - POCT , urine; Standing - Type And Screen; Standing - Inpatient consult to Respiratory Care; Standing - lactated Ringer's infusion - Adult diet Regular; Standing - Vital Signs; Standing - Notify physician - Standard Parameters; Standing - Continue IV fluids ordered pre-procedure; Standing - Prior to Discharge O2 Weaning; Standing - Pulse oximetry, continuous; Standing - Discharge patient; Standing - iohexol (OMNIPaque) 300 mg iodine/mL solution 3 mL - lidocaine PF (Xylocaine) 20 mg/mL (2 %) injection 200 mg - bupivacaine PF (Marcaine) 0.5 % (5 mg/mL) injection 15 mg Patient is a 37-year-old female with the above-mentioned medical diagnoses following up after a fewyear hiatus to once again discuss her lower back pain. Worse with standing, worse with being upright, worse with being active. On physical examination it appears facet mediated. She has undergone therapy in the past that has not helped. She had a recent MRI. She is using gabapentin and tizanidine with some relief and on that. She is not able to use anti- inflammatory medications. Based on her imaging findings, her pain pattern, her failure to improve with conservative treatments and the significant low back pain she is still experiencing despite all these above-mentioned things I recommended to patient bilateral medial branch block covering the L4-S1 facet joints. This was done for diagnostic purposes. If she get significant short-term relief she would then be future candidate for RFA. Procedure was discussed. Risk and benefits were discussed. It should be noted that is to be done under f luoroscopy. She will follow-up 1 week after the injection for reevaluation and further discussion of options. [facility] Work Phone: [phone] History and physical note* Stef Maki DO - 10/30/2023 9:50 AM EDT H&P reviewed. The patient was examined and there are no changes to the H&P. Source Note - Mesha Garcia PA-C - 10/08/2023 9:15 AM EDT Images from the original note were not included. Subjective Patient ID: Kendall Vasques is a 37 y.o. female who presents for Back Pain (FUV back pain she was last seen by Dr. Eubanks 2018. Today she reports having pain in her bilat lower back L>R rates pain score 7/10 now and 10/10 at its worst, describes sharp, stabbing and cramping, tingling in lt leg into her foot. She has started Gabapentin, tizanidine, chiropractor, PT these have helped her paina little, but only short term, had an MRI 09/17/23 shows bulging disc in lumbar region. She was last seen in 2019, went off her meds from Dr. Eubanks because she was . ) in the past she has had good relief with gabapentin and injections. She is here to get her pain under control, screenings [place] N/A, depression she is treated for this, smoking negative, FLAQUITO 50%, SOAPP 7. Meme Love RN 10/08/23 9:03 AM Patient is a 37-year-old female who presents today for follow-up after a few year hiatus. Patient ended up stopping her gabapentin and she got . She states that she lost the child. She then ended up having to have a hysterectomy. She saw a different doctor who is closer to home for her backpain and had a recent MRI. She is here today to further discuss her back pain. She has lower back pain worse with standing, worse with lifting heavy objects, worse with twisting and certain activities. She rates it a 7/10 pain left greater than right side. It can get up to a 10/10 with activities. She is not able to take anti-inflammatory medications due to kidney function issues. She did not tole rate Lyrica. Because side effects. She is using gabapentin and tizanidine both lower doses than what she was on in the past with some improvement but not enough. She uses gabapentin 100 mg twice daily and tizanidine 2 mg 3 times a day as needed. Unfortunately, these do not give her the relief she is looking for. These medications do give her some relief. Unfortunately her pain affects her ambulatory status. Affects her quality life and affects her activities and she is here today to review her MRI once again and discuss her options. Review of Systems Constitutional: Negative. HENT: Negative. Eyes: Negative. Respiratory: Negative. Cardiovascular: Negative. Gastrointestinal: Negative. Endocrine: Negative. Genitourinary: Negative. Musculoskeletal: Positive for arthralgias, back pain, gait problem and myalgias. Skin: Negative. Allergic/Immunologic: Negative. Neurological: Positive for weakness and numbness. Hematological: Negative. Psychiatric/Behavioral: Negative. Objective Physical Exam Vitals and nursing note reviewed. Constitutional: General: She is not in acute distress. Appearance: Normal appearance. She is not ill-appearing. HENT: Head: Normocephalic and atraumatic. Right Ear: External ear normal. Left Ear: External ear normal. Nose: Nose normal. Mouth/Throat: Pharynx: Oropharynx is clear. Eyes: Conjunctiva/sclera: Conjunctivae normal. Cardiovascular: Rate and Rhythm: Normal rate and regular rhythm. Pulses: Normal pulses. Pulmonary: Effort: Pulmonary effort is normal. Breath sounds: Normal breath sounds. Musculoskeletal: General: Normal range of motion. Cervical back: Normal range of motion. Comments: 5/5 lower extremity strength Pain with compression of the bilateral lumbar facet joints Increased lower back pain with bilateral facet loading Skin: General: Skin is warm and dry. Neurological: General: No focal deficit present. Mental Status: She is alert and oriented to person, place, and time. Mental status is at baseline. Psychiatric: Mood and Affect: Mood normal. Behavior: Behavior normal. Thought Content: Thought content normal. Judgment: Judgment normal. XR pelvis 1-2 views XR lumbar spine 2-3 views Status: Final result PACS Images Show images for XR lumbar spine 2-3 views Signed by Signed Time Phone Pager Kirk Winkler MD 08/05/2023 11:25 [id number] Exam Information Status Exam Begun Exam Ended Final 08/04/2023 08:34 08/04/2023 08:45 Study Result Narrative & Impression Interpreted By: Kirk Winkler, STUDY: XR LUMBAR SPINE 2-3 VIEWS; XR PELVIS 1-2 VIEWS; 08/04/2023 8:45 am; 08/04/2023 8:44 am INDICATION: Signs/Symptoms:LUMBAGO WITH SCIATICA, LEFT SIDE; Signs/Symptoms:LUMBAGO WITH SCIATICA LEFT SIDE. COMPARISON: AP view pelvis from 04/10/2015 and lumbar spine images from 04/10/2015.. ACCESSION NUMBER(S): [id number]; [id number] ORDERING CLINICIAN: RICKY GUERRERO TECHNIQUE: AP view pelvis and 3 views of the lumbar spine were obtained. FINDINGS: Slight lumbar dextroscoliosis centered at L2. Slight disc space narrowing at L5-S1. Disc space height was otherwise preserved. There is mild interfacet hypertrophy at L4-5 and L5-S1. Mild sclerotic arthritic changes in both SI joints. Bilateral hip joint spaces are preserved. No lytic or blastic bone lesion. No listhesis. No compression fracture. No pelvic fracture. Mild retained colonic stool and gas. Nonobstructive, nonspecific bowel gas pattern. IMPRESSION: Very mild scoliosis and mild DJD in the distal lumbar spine and both SI joints as described. MACRO: None Signed by: Kirk Winkler 08/05/2023 11:25 AM Dictation workstation: [id number] MR lumbar spine wo IV contrast Order: [id number] Impression IMPRESSION: Lumbar spondylosis at L4-5 and L5-S1 levels, as described. Narrative EXAM: MRI SPINE LUMBAR WITHOUT CONTRAST HISTORY: Severe back pain COMPARISON: MRI lumbar spine 05/27/2018, CT abdomen 06/10/2023. TECHNIQUE/PROTOCOL: Noncontrast lumbar spine MR protocol (Sagittal T1, T2, STIR and axial T1, T2 sequences). FINDINGS: Five lumbar-type vertebral bodies with maintained heights. There is mild retrolisthesis of L5 on S1. No acute or aggressive marrow signal changes. No acute prevertebral or paraspinal soft tissue abnormalities. Conus terminates at L1-2 level. Visualized distal spinal cord and the cauda equina are morphologically normal. There is mild narrowing of disc space at L5-S1 level with mild marginal spurring, Schmorl's nodes and degenerative endplate changes. Otherwise, the disc spaces are preserved. There are disc desiccation at L4-5 and L5-S1 levels. At L4-5 level, there is mild diffuse disc bulging with right-sided predominance. There is central annular fissure. No spinal canal narrowing. Bilateral mild neural foraminal narrowing, right more than left. Mild ligamentum flavum thickening. At L5-S1 level, there is mild diffuse disc bulging with right-sided predominance, superimposed with small central disc protrusion. Mild spinal canal and right lateral recess narrowing. Mild right neural foraminal narrowing. No disc bulge/herniation, high-grade spinal canal or foraminal narrowing are seen at other levels. Exam End: 09/17/23 10:54 Specimen Collected: 09/17/23 10:27 Last Resulted: 09/20/23 02:23 Received From: [facility] Result Received: 09/22/23 10:02 Assessment/Plan Diagnoses and all orders for this visit: Spondylosis of lumbosacral region without myelopathy or radiculopathy - gabapentin (Neurontin) 300 mg capsule; Take 1 capsule (300 mg) by mouth 3 times a day. - diazePAM (Valium) 5 mg tablet; Take 1 tablet (5 mg) by mouth 1 time for 1 dose. 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 - Medial Nerve Branch Block; Future - FL pain management; Future Chronic pain syndrome - diazePAM (Valium) 5 mg tablet; Take 1 tablet (5 mg) by mouth 1 time for 1 dose. 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 Stage 2 chronic kidney disease - diazePAM (Valium) 5 mg tablet; Take 1 tablet (5 mg) by mouth 1 time for 1 dose. 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 Other orders - NPO Diet Except: Sips with meds; Effective now; Standing - Height and weight; Standing - Insert and maintain peripheral IV; Standing - Saline lock IV; Standing - POCT , urine; Standing - Type And Screen; Standing - Inpatient consult to Respiratory Care; Standing - lactated Ringer's infusion - Adult diet Regular; Standing - Vital Signs; Standing - Notify physician - Standard Parameters; Standing - Continue IV fluids ordered pre-procedure; Standing - Prior to Discharge O2 Weaning; Standing - Pulse oximetry, continuous; Standing - Discharge patient; Standing - iohexol (OMNIPaque) 300 mg iodine/mL solution 3 mL - lidocaine PF (Xylocaine) 20 mg/mL (2 %) injection 200 mg - bupivacaine PF (Marcaine) 0.5 % (5 mg/mL) injection 15 mg Patient is a 37-year-old female with the above-mentioned medical diagnoses following up after a fewyear hiatus to once again discuss her lower back pain. Worse with standing, worse with being upright, worse with being active. On physical examination it appears facet mediated. She has undergone therapy in the past that has not helped. She had a recent MRI. She is using gabapentin and tizanidine with some relief and on that. She is not able to use anti- inflammatory medications. Based on her imaging findings, her pain pattern, her failure to improve with conservative treatments and the significant low back pain she is still experiencing despite all these above-mentioned things I recommended to patient bilateral medial branch block covering the L4-S1 facet joints. This was done for diagnostic purposes. If she get significant short-term relief she would then be future candidate for RFA. Procedure was discussed. Risk and benefits were discussed. It should be noted that is to be done under f luoroscopy. She will follow-up 1 week after the injection for reevaluation and further discussion of options. documented in this [facility] Work Phone: [phone] NoteLeft great toenail avulsion Patient is a pleasant 37-year-old female who comes in today for her left great nail avulsion. She states that she has really had quite a bad weekend. States that the doxycycline she believes is making her feel quite nauseous however secondarily she states that across the weekend she had a fever of 101.2 degrees however has not had 1 today. States additionally that her nail has been avulsed and had a matrixectomy before but it keeps coming back she is coming in today hoping for a nail matrixectomy. Physical Vascular: DP PT pulses are easily palpable 2-4. CFT is normal no edema. Derm: Still erythema to the base of the toe but no appearance of streaking no fluctuance. The nail is lifting 90% the very base is intact however. Neuro: Normal. Musculoskeletal: Muscle strength is 5 out of 5. Can easily wiggle toes that any clicking or catching. Assessment plan: Patient is a pleasant 37-year-old female with nail trauma left great nail and cellulitis. In light of her fever status of 101.2 and her general malaise, did recommend delaying her matrixectomy as this adds an additional infection risk by adding all of the acid to the matrix component. Will have her however stop her doxycycline and transition her to Keflex 500 mg every 6 hours for 7 days 20 tabs 0 refills. Given the fact that we will delay her matrixectomy she was given the option analogy to simply wait a week however she states that she needs her nail off today either way and is okay not getting matrixectomy but instead getting only an avulsion. Therefore based on the above, surgical plan today is for a left great toenail avulsion. Primary risks are recurrence, pain tingling burning scarring infection. Despite this risk, she does wish to proceed. No guarantees are implied or made. Consent was signed document the EMR. Lastly in light of her EGFR of 65 with stage II kidney failure, and a new fever which does not seem consistent with taking doxycycline, I did recommend she get evaluated today by the emergency department for labs and wider differential for her fever. Procedure: After timeout consent was performed, and alcohol prep, did block the toe with 3 cc of 2% lidocaine plain. Utilizing a straight hemostat, the nail was bluntly avulsed off the nailbed and passed off the surgical field. Site was copiously irrigated with normal saline and a postop dressing was applied. Moderate medical complexity decision making based on fever. AUTHENTICATED BY ALEXANDRU RAMIREZ JR., ON 10/21/2023 13:53:38[facility] History of Present illness Narrative* Alexandru Ramirez Jr., DP - 10/21/2023 1:35 PM EDT Left great toenail avulsion Patient is a pleasant 37-year-old female who comes in today for her left great nail avulsion. She states that she has really had quite a bad weekend. States that the doxycycline she believes is making her feel quite nauseous however secondarily she states that across the weekend she had a fever of 101.2 degrees however has not had 1 today. States additionally that her nail has been avulsed and had a matrixectomy before but it keeps coming back she is coming in today hoping for a nail matrixectomy. Physical Vascular: DP PT pulses are easily palpable 2-4. CFT is normal no edema. Derm: Still erythema to the base of the toe but no appearance of streaking no fluctuance. The nail is lifting 90% the very base is intact however. Neuro: Normal. Musculoskeletal: Muscle strength is 5 out of 5. Can easily wiggle toes that any clicking or catching. Assessment plan: Patient is a pleasant 37-year-old female with nail trauma left great nail and cellulitis. In light of her fever status of 101.2 and her general malaise, did recommend delaying her matrixectomy as this adds an additional infection risk by adding all of the acid to the matrix component. Will have her however stop her doxycycline and transition her to Keflex 500 mg every 6 hours for 7 days 20 tabs 0 refills. Given the fact that we will delay her matrixectomy she was given the option analogy to simply wait a week however she states that she needs her nail off today either way and is okay not getting matrixectomy but instead getting only an avulsion. Therefore based on the above, surgical plan today is for a left great toenail avulsion. Primary risks are recurrence, pain tingling burning scarring infection. Despite this risk, she does wish to proceed. No guarantees are implied or made. Consent was signed document the EMR. Lastly in light of her EGFR of 65 with stage II kidney failure, and a new fever which does not seemconsistent with taking doxycycline, I did recommend she get evaluated today by the emergency department for labs and wider differential for her fever. Procedure: After timeout consent was performed, and alcohol prep, did block the toe with 3 cc of 2%lidocaine plain. Utilizing a straight hemostat, the nail was bluntly avulsed off the nailbed and passed off the surgical field. Site was copiously irrigated with normal saline and a postop dressing was applied. Moderate medical complexity decision making based on fever. documented in this [id number] Instructions* Patient Instructions* Alexandru Ramirez Jr., DPM - 10/21/2023 1:21 PM EDT documented in this [id number] History of Present illness Narrative* CHRISTELLE Peace - 10/16/2023 1:20 PM EDT Chief Complaint Patient presents with Back Pain On going back pain - had MRI, is under care of pain management Anxiety Nausea Insomnia Ear Fullness HPI: Regarding Back Pain: Bulging disc. Had 3 weeks of PT and is now following with pain management. Has test injection coming up in October. She knows to avoid NSAIDs due to decreased kidney function. Regarding Insomnia: She presents today for complaint of insomnia. Onset of symptoms: years. Previously treated with: Trazodone. Dose of 150mg does well for her. . Current meds include: trazodone 150mg daily. Frequency of medication use: nightly Pt reports difficulty initiating sleep: Yes Difficulty maintaining sleep: Yes Early awakening: Yes Pt reports or exhibits symptoms of anxiety/depression: Yes; feels symptoms are currently under control. Regarding Anxiety/Depression: Kendall presents with the complaint of anxiety/depression which is currently under control. She feels her anxiety is improved on Trintellix. She reports the following triggers: stress. She has not required ativan since starting Tritellix. Other symptoms include: depressed mood, insomnia. Denies SI/HI. Current treatment includes: Trintellix 20mg daily. Feels that this medication is working well. Significant medical conditions: see list Previous Medications: Zoloft. celexa and she did not like as it caused weight gain and no improvement. Wellbutrin around 10 years ago, did not do well on this medication. Regarding Ear Fullness: Has had ear wax accumulation in the past and this was removed in our office with good effect. She has some fullness in her right ear and would like it checked. ROS: Constitutional: Negative for fatigue and fever. HENT: Negative for congestion, ear pain and sore throat. Eyes: Negative for pain and redness. Respiratory: Negative for cough and shortness of breath. Cardiovascular: Negative for chest pain and palpitations. Gastrointestinal: Negative for abdominal pain, constipation, diarrhea, nausea and vomiting. Genitourinary: Negative for difficulty urinating and dysuria. Musculoskeletal: Positive for back pain. Negative for arthralgias and myalgias. Skin: Negative for rash and wound. Neurological: Negative for dizziness and headaches. All other systems reviewed and are negative. Physical Exam: BP 107/74 Pulse 88 Wt 69.3 kg (152 lb 11.2 oz) BMI 26.21 kg/m Smoking Status Never Body mass index is 26.21 kg/m . Physical Exam Vitals and nursing note reviewed. Constitutional: General: She is not in acute distress. Appearance: Normal appearance. She is not ill-appearing. HENT: Head: Normocephalic and atraumatic. Right Ear: Ear canal and external ear normal. There is impacted cerumen. Left Ear: Tympanic membrane, ear canal and external ear normal. Mouth/Throat: Mouth: Mucous membranes are moist. Eyes: Extraocular Movements: Extraocular movements intact. Conjunctiva/sclera: Conjunctivae normal. Pupils: Pupils are equal, round, and reactive to light. Pulmonary: Effort: Pulmonary effort is normal. Neurological: General: No focal deficit present. Mental Status: She is alert and oriented to person, place, and time. Psychiatric: Mood and Affect: Mood normal. Behavior: Behavior normal. Assessment/Plan: 1. Generalized anxiety disorder -Chronic and stable. No change to current Trintellix. - Vortioxetine HBr (Trintellix) 20 MG tablet; Take 1 tablet by mouth daily. Dispense: 90 tablet; Refill: 1 2. Nausea Chronic and intermittent. Take phenergan as needed for nausea. - Promethazine HCl 12.5 MG tablet; Take 1 tablet by mouth every 4 hours as needed for Nausea / Vomiting. Dispense: 30 tablet; Refill: 0 3. Psychophysiological insomnia -Chronic and stable. No change to current trazodone. - trazodone 150 MG tablet; Take 1 tablet by mouth every evening at 6 PM. Dispense: 90 tablet; Refill: 1 4. Impacted cerumen of right ear -Ear flush today. *Follow up in 6 months.* Orders and follow up as documented in patient record; Patient was advised to call with any questions or concerns. If symptoms worsen patient was advised to follow up in our office or the Emergency Dept. Benefits, Risks, Contraindications, and Complications of recommended treatments were explained the patient understands and agrees to proceed with plan. CHRISTELLE Peace 10/16/2023 * Fely Rousseau - 10/16/2023 1:20 PM EDT Nurse Note: Review of Systems Constitutional: Negative for fatigue and fever. HENT: Negative for congestion, ear pain and sore throat. Eyes: Negative for pain and redness. Respiratory: Negative for cough and shortness of breath. Cardiovascular: Negative for chest pain and palpitations. Gastrointestinal: Negative for abdominal pain, constipation, diarrhea, nausea and vomiting. Genitourinary: Negative for difficulty urinating and dysuria. Musculoskeletal: Positive for back pain. Negative for arthralgias and myalgias. Skin: Negative for rash and wound. Neurological: Negative for dizziness and headaches. All other systems reviewed and are negative. documented in this [facility]08-30-2024 Instructions* Patient Instructions* CHRISTELLE Peace - 10/16/2023 1:20 PM EDT *Refills Patient was advised to call with any questions or concerns. If symptoms worsen patient was advised to follow up in our office or the Emergency Dept. Benefits, Risks, Contraindications, and Complications of recommended treatments were explained the patient understands and agrees to proceed with plan. documented in this [facility]08-28-2024 NoteRight great toe trauma Patient is a pleasant 37-year-old female who states that on Thursday she was simply giving a friend a hug. She somehow slipped and banged her foot at the bottom edge of a couch having quite bad toe trauma. She states that her toes doing awful thinks it is quite infected and comes in today to have this assessed and evaluated. Separately she states she actively has a pretty severe UTI she is finishing a Macrobid prescription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 tomorrow. -Take hydrocodone as needed for increased pain. Ibuprofen when pain is less severe. -Due to radiation of pain and paresthesias in left foot, will evaluate further with MRI. She has had xrays through her chiropractor that are visible in EPIC. - predniSONE 10 MG tablet; Take 2 day taper starting with 60mg. 60mg x 2 days, 40mg x 2 days, 20mg x 2 days, 10mg x 2 days. Dispense: 26 tablet; Refill: 0 - MRI SPINE LUMBAR WITHOUT CONTRAST; Future - hydroCODone-acetaminophen 5-325 MG tablet; Take 1 tablet by mouth every 6 hours as needed for up to 3 days. Dispense: 10 tablet; Refill: 0 Orders and follow up as documented in patient record; Patient was advised to call with any questions or concerns. If symptoms worsen patient was advised to follow up in our office or the Emergency Dept. Benefits, Risks, Contraindications, and Complications of recommended treatments were explained the patient understands and agrees to proceed with plan. CHRISTELLE Peace 08/10/2023 documented in this [facility]06-24-2024 Instructions* Patient Instructions* CHRISTELLE Peace - 08/10/2023 2:20 PM EDT Take hydrocodone as needed and start tonight. Start prednisone tomorrow. MRI ordered. Patient was advised to call with any questions or concerns. If symptoms worsen patient was advised to follow up in our office or the Emergency Dept. Benefits, Risks, Contraindications, and Complications of recommended treatments were explained the patient understands and agrees to proceed with plan. [facility] NoteHNO ID: [id number] Author: WILFRID CHAMPION APRN.CNM Service: ? Author Type: Gastroenterology Professor Type: Progress Notes Filed: 08/03/2023 12:41 Note Text: BREAST LUMP HISTORY: This is a 37 year old female Presents with breast mass left Mass has been present for 1 months Patient stated noticed tenderness around the left nipple 1 month ago and now tenderness has spread to axillary area. She felt a small lump but has fibrocystic breasts so always feels lumps. Tenderness Yes, Change in sizeYes, increase Any history breast mass Yes, 2019 Caffeine use No Last [id number] abnormal, had cyst removed Any previous breast surgery Yes- left side cyst removal/biopsy benign- cyst removed Any family history breast disease/ breast cancer Yes- Father's mother OB History T0 L0 SAB1 IAB0 Ectopic0 Multiple0 Live Births1 PAST MEDICAL HISTORY Diagnosis Date Abnormal Pap smear of cervix +HPV Anemia Asthma Breast cyst, left 2019 Chlamydia Depression/anxiety Herpes simplex virus (HSV) infection Hx of ovarian cyst Hx: UTI (urinary tract infection) Hypertension Hypoglycemia 5 years ago Infectious mononucleosis Infertility, female Insomnia in prior , currently 11/17/2022 PID (acute pelvic inflammatory disease) 2015 Placental abruption depression Recurrent UTI Renal calculi recurrent kidney stones Seizure disorder (HCC) psychogenic Sickle cell anemia (HCC) Syncope and collapse with pseudo-seizures Thyroid disease PAST SURGICAL HISTORY Procedure Laterality Date BREAST CYST ASPIRATION - ADDTL LESION Left 2019 Dr Corona-Arleth CERVIX UTERI CONIZA LP ELCTRO EXCI 2008 SECTION HX classical incision CT ABDOMEN 09/10/[address] [facility] [address] BRAIN 06/19/2005 [facility] DANDC, DIAG AND/OR THERAPEUTIC 11/27/2022 Suction DANDC for missed AB L'SCOPE DX W/WO BRUSHINGS/WASHINGS 03/17/2022 Dr Myers-pelvic pain-endometriosis ruled out L'SCOPE DX W/WO BRUSHINGS/WASHINGS 03/12/2020 lysis of adhesions-Dr Myers LITHOTRIPSY XTRCORP SHOCK WAVE 04/16/2006 Lithotripsy Right kidney OVARY SURGERY HX 04/10/2013 Excision of right fallopian tube and ovary PAST SURGICAL HISTORY OF 02/16/2003 right ear cartilage repair TLH W/T/O 250 G OR LESS 03/24/2023 left salpingectomy, excision of endometriosis, cystoscopy TONSILLECTOMY AND ADENOIDECTOMY HX 12/17/2012 FAMILY HISTORY Problem Relation Age of Onset Stroke Father No Known Problems Sister Hypertension Maternal Grandmother Blood Clots Maternal Grandmother other (Hypoglycemia) Maternal Grandfather Heart Maternal Grandfather Diabetes Maternal Grandfather Breast Cancer Paternal Grandmother Heart Attack Paternal Grandfather other (epilepsy) Half-sister SOCIAL HISTORY Social History Tobacco Use Smoking status: Never Smokeless tobacco: Never Vaping Use Vaping Use: Never used Substance Use Topics Alcohol use: No Drug use: No PAST SURGICAL HISTORY Procedure Laterality Date BREAST CYST ASPIRATION - ADDTL LESION Left 2019 Dr Corona-Drifting CERVIX UTERI CONIZA LP ELCTRO EXCI 2008 SECTION HX classical incision CT ABDOMEN 09/10/[address] [facility] [address] BRAIN 06/19/2005 [facility] DANDC, DIAG AND/OR THERAPEUTIC 11/27/2022 Suction DANDC for missed AB L'SCOPE DX W/WO BRUSHINGS/WASHINGS 03/17/2022 Dr Myers-pelvic pain-endometriosis ruled out L'SCOPE DX W/WO BRUSHINGS/WASHINGS 03/12/2020 lysis of adhesions-Dr Myers LITHOTRIPSY XTRCORP SHOCK WAVE 04/16/2006 Lithotripsy Right kidney OVARY SURGERY HX 04/10/2013 Excision of right fallopian tube and ovary PAST SURGICAL HISTORY OF 02/16/2003 right ear cartilage repair TLH W/T/O 250 G OR LESS 03/24/2023 left salpingectomy, excision of endometriosis, cystoscopy TONSILLECTOMY AND ADENOIDECTOMY HX 12/17/2012 Current Outpatient Medications Medication Sig spironolactone (ALDACTONE) 25 mg tablet Take 25 mg by mouth once daily. tiZANidine HCl (ZANAFLEX) 2 mg capsule Take 1-2 capsules by mouth three times a day as needed. sertraline (ZOLOFT) 100 mg tablet Take 100 mg by mouth once daily. albuterol HFA (PROVENTIL HFA, VENTOLIN HFA) 90 mcg/actuation inhaler Inhale 1 Puff as instructed every 4 hours as needed. traZODone (DESYREL) 100 mg tablet Take 100 mg by mouth. ondansetron orally disintegrating (ZOFRAN ODT) 4 mg disintegrating tablet Take 1 tablet by mouth every 6 hours as needed for nausea/vomiting. norethindrone (AYGESTIN) 5 mg tablet Take 1 tablet by mouth once daily. diphenhydrAMINE (SLEEP AID, DIPHENHYDRAMINE,) 50 mg capsule Take 50 mg by mouth every 6 hours as needed. No current facility-administered medications for this visit. Allergies As of Date: 08/03/2023 Allergen Noted Reaction SHELLFISH CONTAINING PRODUCTS 04/17/2021 Swelling ADHESIVE 06/17/2011 Rash (more content not included)...[facility]06-17-2024 History of Present illness Narrative* Wilfrid Champion APRN.[facility] - 08/03/2023 9:20 AM EDT BREAST LUMP HISTORY: This is a 37 year old female Presents with breast mass left Mass has been present for 1 months Patient stated noticed tenderness around the left nipple 1 month ago and now tenderness has spread to axillary area. She felt a small lump but has fibrocystic breasts so always feels lumps. Tenderness Yes, Change in sizeYes, increase Any history breast mass Yes, 2019 Caffeine use No Last [id number] abnormal, had cyst removed Any previous breast surgery Yes- left side cyst removal/biopsy benign- cyst removed Any family history breast disease/ breast cancer Yes- Father's mother OB History T0 L0 SAB1 IAB0 Ectopic0 Multiple0 Live Births1 PAST MEDICAL HISTORY Diagnosis Date Abnormal Pap smear of cervix +HPV Anemia Asthma Breast cyst, left 2018 Chlamydia Depression/anxiety Herpes simplex virus (HSV) infection Hx of ovarian cyst Hx: UTI (urinary tract infection) Hypertension Hypoglycemia 5 years ago Infectious mononucleosis Infertility, female Insomnia in prior , currently 11/17/2022 PID (acute pelvic inflammatory disease) 2015 Placental abruption depression Recurrent UTI Renal calculi recurrent kidney stones Seizure disorder (HCC) psychogenic Sickle cell anemia (HCC) Syncope and collapse with pseudo-seizures Thyroid disease PAST SURGICAL HISTORY Procedure Laterality Date BREAST CYST ASPIRATION - ADDTL LESION Left 2019 Dr Dillon CERVIX UTERI CONIZA LP ELCTRO EXCI 2007 SECTION HX classical incision CT ABDOMEN 09/10/[address] [facility] [address] BRAIN 06/19/2005 [facility] D&C, DIAG AND/OR THERAPEUTIC 11/27/2022 Suction D&C for missed AB L'SCOPE DX W/WO BRUSHINGS/WASHINGS 03/17/2022 Dr Myers-pelvic pain-endometriosis ruled out L'SCOPE DX W/WO BRUSHINGS/WASHINGS 03/12/2020 lysis of adhesions-Dr Myers LITHOTRIPSY XTRCORP SHOCK WAVE 04/16/2006 Lithotripsy Right kidney OVARY SURGERY HX 04/10/2013 Excision of right fallopian tube and ovary PAST SURGICAL HISTORY OF 02/16/2003 right ear cartilage repair TLH W/T/O 250 G OR LESS 03/24/2023 left salpingectomy, excision of endometriosis, cystoscopy TONSILLECTOMY AND ADENOIDECTOMY HX 12/17/2012 FAMILY HISTORY Problem Relation Age of Onset Stroke Father No Known Problems Sister Hypertension Maternal Grandmother Blood Clots Maternal Grandmother other (Hypoglycemia) Maternal Grandfather Heart Maternal Grandfather Diabetes Maternal Grandfather Breast Cancer Paternal Grandmother Heart Attack Paternal Grandfather other (epilepsy) Half-sister SOCIAL HISTORY Social History Tobacco Use Smoking status: Never Smokeless tobacco: Never Vaping Use Vaping Use: Never used Substance Use Topics Alcohol use: No Drug use: No PAST SURGICAL HISTORY Procedure Laterality Date BREAST CYST ASPIRATION - ADDTL LESION Left 2019 Dr Dillon CERVIX UTERI CONIZA LP ELCTRO EXCI 2008 SECTION HX classical incision CT ABDOMEN 09/10/[address] [facility] [address] BRAIN 06/19/2005 [facility] D&C, DIAG AND/OR THERAPEUTIC 11/27/2022 Suction D&C for missed AB L'SCOPE DX W/WO BRUSHINGS/WASHINGS 03/17/2022 Dr Myers-pelvic pain-endometriosis ruled out L'SCOPE DX W/WO BRUSHINGS/WASHINGS 03/12/2020 lysis of adhesions-Dr Myers LITHOTRIPSY XTRCORP SHOCK WAVE 04/16/2006 Lithotripsy Right kidney OVARY SURGERY HX 04/10/2013 Excision of right fallopian tube and ovary PAST SURGICAL HISTORY OF 02/16/2003 right ear cartilage repair TLH W/T/O 250 G OR LESS 03/24/2023 left salpingectomy, excision of endometriosis, cystoscopy TONSILLECTOMY AND ADENOIDECTOMY HX 12/17/2012 Current Outpatient Medications Medication Sig spironolactone (ALDACTONE) 25 mg tablet Take 25 mg by mouth once daily. tiZANidine HCl (ZANAFLEX) 2 mg capsule Take 1-2 capsules by mouth three times a day as needed. sertraline (ZOLOFT) 100 mg tablet Take 100 mg by mouth once daily. albuterol HFA (PROVENTIL HFA, VENTOLIN HFA) 90 mcg/actuation inhaler Inhale 1 Puff as instructed every 4 hours as needed. traZODone (DESYREL) 100 mg tablet Take 100 mg by mouth. ondansetron orally disintegrating (ZOFRAN ODT) 4 mg disintegrating tablet Take 1 tablet by mouth every 6 hours as needed for nausea/vomiting. norethindrone (AYGESTIN) 5 mg tablet Take 1 tablet by mouth once daily. diphenhydrAMINE (SLEEP AID, DIPHENHYDRAMINE,) 50 mg capsule Take 50 mg by mouth every 6 hours as needed. No current facility-administered medications for this visit. Allergies As of Date: 08/03/2023 Allergen Noted Reaction SHELLFISH CONTAINING PRODUCTS 04/17/2021 Swelling ADHESIVE 06/17/2011 Rash CODEINE 09/20/2009 Hives and Vomiting FLAGYL [METRONIDAZOLE] 09/27/2021 Other: See Comments MORPHINE 05/23/2022 Hives NSAIDS (NON-STEROIDAL ANTI-INFLAM*09/27/2021 Other: See Comments TOPAMAX [TOPIRAMATE] 09/27/2021 GI Upset Fully Assessed 08/03/2023 EXAMINATION: There is no concerning cervical, supraclavicular, or axillary lymphadenopathy. She has bilateral fibrocystic changes. On the right are no dominant masses, skin changes or nipple discharge. On the left there is fibrocysytic changes and 2 cm mobile mass in the 1 o'clock location, but no skin changes or nipple discharge. Tenderness with mild palpation to left breast and nipple area. ASSESSMENT/PLAN: 1. Breast lump on left side at 1 o'clock position - ICD9: 611.72, ICD10: N63.21 (primary diagnosis) 2. Breast pain in female - ICD9: 611.71, ICD10: N64.4 - A discussion was held with the patient and patient who agrees with Imaging/ Diagnostic Mammogram/ Breast US - Will follow up with patient after results Wilfrid Champion APRN.CNM [facility]* Diagnosis Breast lump on left side at 1 o'clock position- Primary Lump or mass in breast Breast pain in female Mastodynia documented in [facility] Reason for referral (narrative)* Diagnostic Procedure Only (Routine) - Pending Review Specialty Diagnoses / Procedures Referred By Bel mike Referred To Contact [facility] Diagnoses Breast lump on left side at 1 o'clock position Breast pain in female Procedures US BREAST LTD LEFT US BREAST UNI REAL TIME WITH IMAGE LIMITED Wilfrid Champion APRN.CNM [address] [place] [address] [facility] [address] [place] [address] Referral ID Status Reason Start Date Expiration Date Visits Requested Visits Authorized [id number] Pending Review Auto-Generat ed Referral 08/03/2023 09/01/2024 1 1 * Diagnostic Procedure Only (Routine) - Authorized Specialty Diagnoses / Procedures Referred By Bel mike Referred To Contact [facility] Diagnoses Breast lump on left side at 1 o'clock position Breast pain in female Procedures COSMO DIAGNOSTIC LEFT DIAGNOSTIC MAMMOGRAPHY COMPUTER-AIDED DETCJ UNI Wilfrid Champion APRN.CNM [address] [place] [address] [facility] [address] [place] [address] Referral ID Status Reason Start Date Expiration Date Visits Requested Visits Authorized [id number] Authorized Auto-Generat ed Referral 08/03/2023 09/01/2024 1 1 [facility]05-29-2024 History of Present illness Narrative* Winsome Rosa Mason, [employer] - 07/15/2023 9:40 AM EDT Chief Complaint Patient presents with Anxiety Insomnia Urinary Frequency Had a kidney infection two weeks ago Seen at urgent care at [facility] - treated with kelex three times a day for seven days. Still having symptoms Back Pain HPI: Interval History: Since our last appointment, she had another UTI 2 weeks ago and was treated with keflex. Scan did not show obstructive renal stone. Dr Mariano had her start spironolactone about 1 month ago. No additional medication changes. Regarding Insomnia: She presents today for complaint of insomnia. Onset of symptoms: years. Previously treated with: Trazodone has worked well to help with sleep. Dose of 150mg does well for her. . Current meds include: trazodone 150mg daily. Frequency of medication use: nightly Pt reports difficulty initiating sleep: Yes Difficulty maintaining sleep: Yes Early awakening: Yes Pt reports or exhibits symptoms of anxiety/depression: Yes; feels symptoms are currently under faircontrol. Regarding Anxiety/Depression: Kendall presents with the complaint of anxiety/depression which is currently under suboptimal control. She feels her anxiety is higher. Having chest discomfort with high anxiety. Stress with recent placement of grandmother in assisted living. She reports the following triggers: stress. Feels that she has more anxiety than usual. States she tries ativan and it does not seem to be effective. Other symptoms include: depressed mood, insomnia. Denies SI/HI. Current treatment includes: zoloft 150mg daily. Significant medical conditions: see list Previous Medications: celexa and she did not like as it caused weight gain and no improvement. Wellbutrin around 10 years ago, did not do well on this medication. Regarding Dysuria: Kendall presents complaining of urinary symptoms that include: frequency but not a lot of output. Low back pain on left. Symptoms began more than 2 weeks ago. Started spironolactone from Dr Mariano and she continues to drinkover 120mL of water per day. Patient does have a history of previous bladder infections. She denies fever, chills or gross hematuria. For females: She denies vaginal discharge, itching or irritation. Regarding Back Pain: States she takes tizanidine as needed for back pain. Also finds that it helps with overall muscle aches. She finds this to be more effective than strong pain medications. ROS: Constitutional: Negative for fatigue and fever. HENT: Negative for congestion, ear pain and sore throat. Eyes: Negative for pain and redness. Respiratory: Negative for cough and shortness of breath. Cardiovascular: Negative for chest pain and palpitations. Gastrointestinal: Negative for abdominal pain, constipation, diarrhea, nausea and vomiting. Genitourinary: Positive for difficulty urinating and frequency. Negative for dysuria. Musculoskeletal: Positive for back pain. Negative for arthralgias and myalgias. Skin: Negative for rash and wound. Neurological: Negative for dizziness and headaches. All other systems reviewed and are negative. Physical Exam: BP 107/74 Pulse 76 Wt 68.9 kg (151 lb 14.4 oz) BMI 26.07 kg/m Smoking Status Never Body mass index is 26.07 kg/m . Physical Exam Vitals and nursing note reviewed. Constitutional: Appearance: Normal appearance. HENT: Head: Normocephalic and atraumatic. Eyes: Conjunctiva/sclera: Conjunctivae normal. Pupils: Pupils are equal, round, and reactive to light. Cardiovascular: Rate and Rhythm: Normal rate and regular rhythm. Pulmonary: Effort: Pulmonary effort is normal. Breath sounds: Normal breath sounds. Skin: General: Skin is warm and dry. Neurological: Mental Status: She is alert and oriented to person, place, and time. Psychiatric: Mood and Affect: Mood normal. Behavior: Behavior normal. Assessment/Plan: 1. Psychophysiological insomnia -Chronic and stable. No change to current trazodone. - trazodone 150 MG tablet; Take 1 tablet by mouth every evening at 6 PM. Dispense: 90 tablet; Refill: 0 2. Generalized anxiety disorder -Chronic and unstable. Will transition to Trintellix while tapering off of sertraline. -Start Trintellix 5mg and decrease sertraline to 100mg daily x 2 weeks. After 2 weeks, increase Trintellix to 10mg and sertraline to 50mg daily. Finally, stop sertraline and continue on Trintellix until seen back in the office. - Sertraline 100 MG tablet; Take 1 tablet by mouth daily. - LORazepam (Ativan) 0.5 MG tablet; Take 1 tablet by mouth 2 times daily as needed for Anxiety for up to 20 days. Dispense: 14 tablet; Refill: 0 - vortioxetine (Trintellix) 10 MG tablet; Take 1 tablet by mouth daily. Dispense: 30 tablet; Refill: 1 3. Chronic bilateral low back pain without sciatica -Chronic and intermittent. Muscle relaxer helps with intermittent back pain. - Tizanidine 4 MG tablet; Take 1 tablet by mouth 3 times daily as needed for Muscle spasms. Dispense: 90 tablet; Refill: 0 4. Nausea -Zofran for nausea as needed. - Ondansetron 8 MG Tab Dispersible tablet; Take 1 tablet by mouth every 4 hours as needed for Nausea. Place on tongue Dispense: 30 tablet; Refill: 1 5. Urinary frequency -Urine check today is negative for infection. Continue with increased fluids and follow up with Dr Mariano. - POCT URINALYSIS DIPSTICK NON AUTOMATED *Follow up in 6 weeks.* Patient was advised to call with any questions or concerns. If symptoms worsen patient was advised to follow up in our office or the Emergency Dept. Benefits, Risks, Contraindications, and Complications of recommended treatments were explained the patient understands and agrees to proceed with plan. CHRISTELLE Peace 07/15/2023 * Fely Rousseau - 07/15/2023 9:40 AM EDT Nurse Note: Review of Systems Constitutional: Negative for fatigue and fever. HENT: Negative for congestion, ear pain and sore throat. Eyes: Negative for pain and redness. Respiratory: Negative for cough and shortness of breath. Cardiovascular: Negative for chest pain and palpitations. Gastrointestinal: Negative for abdominal pain, constipation, diarrhea, nausea and vomiting. Genitourinary: Positive for difficulty urinating and frequency. Negative for dysuria. Musculoskeletal: Positive for back pain. Negative for arthralgias and myalgias. Skin: Negative for rash and wound. Neurological: Negative for dizziness and headaches. All other systems reviewed and are negative. * Lyssa Harris LPN - 07/15/2023 9:40 AM EDT Patient was given 4 samples of Trintellix 5mg. Lot #[id number] exp date 07/10 documented in this [facility]05-29-20[facility] Instructions* Patient Instructions* CHRISTELLE Peace - 07/15/2023 9:40 AM EDT *Refills on meds. Decrease sertraline to 100mg x 2 weeks then 50mg x 2 weeks then stop. Start taking Trintellix 5mg daily x 2 weeks then increase to 10mg weekly.* Patient was advised to call with any questions or concerns. If symptoms worsen patient was advised to follow up in our office or the Emergency Dept. Benefits, Risks, Contraindications, and Complications of recommended treatments were explained the patient understands and agrees to proceed with plan. documented in this [facility]04-[facility] Hospital Discharge instructions* Discharge Instructions* Rhys Conn MD - 06/10/2023 12:47 PM EDT Tylenol 500 mg every 4 to 6 hours as needed for aches or pains over next 2 days. Lots of fluids over the next 2-[address] Mariano and Winsome Cuevas's office today and schedule follow-up. * Attachments The following attachments cannot be sent through Care Everywhere. * Flank Pain (Swiss) [facility] Emergency department Note* Lyric Cuellar RN - 06/10/2023 12:[address] Conn speaking with Dr. Mariano [facility] Emergency department Note* Lyric Cuellar RN - 06/10/2023 12:[address] Conn speaking with Dr. Mariano * Rhys Conn MD - 06/10/2023 10:57 AM EDT Emergency Room Note [facility] EMERGENCY DEPARTMENT Service Date:.06/10/23 PCP: Winsome Cuevas Chief Complaint: Chief Complaint Patient presents with Flank Pain Sent from Dr Mariano's office due to worsening right sided flank pain with nausea since last night. Concern for kidney stone. Patient reports Stage 2 kidney disease HPI Kendall Vasques is a 37 y.o. female presents to the ED today due to right flank pain. Patient states had above complaint since Thursday night. Has been getting worse. Became suddenly much more severe today. She went and saw Dr. Mariano in the office and was sent to the emergency department. She states she has 10/10 pain in the right flank. States it is exactly like previous kidney stones. She has not noticed any blood in her urine. She has had a hysterectomy in the past. It was not donefor cancer. She has a history of chronic pain. I do see that she had a CT scan of the abdomen pelvis done July 02, 2022. It had small renal calculibut no ureteral calculi. No obstructing stones or hydronephrosis. She also had a CT scan of the abdomen and pelvis done May 23, 2022 which showed no acute abnormalities. CT scan abdomen pelvis with contrast done September 27, 2021 was read as no acute abnormalities identified. CT scan abdomen pelvis without contrast done July 19 2021 had no obstructive uropathy or urolithiasis. Review of Systems: Review of Systems She has no fever or chills. No upper respiratory complaints. She has slight nausea with the pain but no vomiting. No diarrhea or other gastrointestinal complaints. She has not complained any dysuria.She has not noticed any obvious blood in her urine. She denies any falls or trauma. She has no recent unexplained weight loss. Past Medical History: Past Medical History: Diagnosis Date Acute allergic rhinitis Anxiety Asthma Chronic pain Epilepsy Essential hypertension, benign Fibromyalgia Hypoglycemia Hypoglycemia 09/19/2016 Kidney disease 2018 Kidney stones Migraine Nephrolithiasis ROSA (obstructive sleep apnea) PID (pelvic inflammatory disease) Restless leg syndrome Seizure Past Surgical History: Past Surgical History: Procedure Laterality Date HYSTERECTOMY TOTAL ABDOMINAL OPEN ([facility]) 03/24/[address] DILATION AND CURETTAGE 11/27/2022 SECTION 01/05/2021 OTHER SURGICAL N/A 02/2020 OBGYN laproscopic unwound intestine. ABLATION NERVE RADIOFREQUENCY PULSED N/A 12/09/2019 [facility] nerve ablation to back L5-L11 VAGINAL SURGERY Bilateral 05/2017 Bilateral Labia Reduction COLONOSCOPY DIAGNOSTIC N/A 09/19/2016 Laterality: N/A; Surgeon: Jennifer Crow MD; Location: [facility] OR EGD DIAGNOSTIC N/A 09/19/2016 Laterality: N/A; Surgeon: Jennifer Crow MD; Location: [facility] OR [facility]-OOPHORECTOMY LAPAROSCOPIC Right 03/2013 HPV CYSTOURETHROSCOPY W/ URETEROSCOPY/PYELOSCOPY W/ LITHOTRIPSY INCL STENT INSERTION Right 2011 BREAST BIOPSY benign TONSILLECTOMY ADENOIDECTOMY Allergies: Allergies Allergen Reactions Codeine And Related hives Morphine Hives Shellfish Allergy Angioedema (swelling) Shrimp Extract Allergy Skin Test Hives and Swelling *Adhesive Tape Rash Baclofen Incontinence Codeine Hives and Nausea and Vomiting Dicyclomine Confusion Metronidazole Seizures Nsaids Topiramate Pt tolerated Topamax on 07/17 well during inpatient stay without any symptoms Tramadol Seizures Medications: Patient's Medications New Prescriptions ONDANSETRON 4 MG TAB DISPERSIBLE TABLET Take 1 tablet by mouth every 4 hours as needed for Nausea. Place on tongue Previous Medications ACETAMINOPHEN 500 MG TABLET Take 2 tablets by mouth. ALBUTEROL 108 (90 BASE) MCG/ACT AERO SOLN INHALER Inhale 1 puff every 4 hours as needed for Wheezing. DIPHENHYDRAMINE-APAP, SLEEP, (TYLENOL PM EXTRA STRENGTH PO) Take 500 mg by mouth every 4 hours as needed. LORAZEPAM (ATIVAN) 0.5 MG TABLET Take 1 tablet by mouth 2 times daily as needed for Anxiety for up to 20 days. OXYCODONE-ACETAMINOPHEN 5-325 MG PER TABLET Take 2 tablets by mouth one time only for 1 dose. PROMETHAZINE HCL 12.5 MG TABLET Take 1 tablet by mouth every 4 hours as needed for Nausea / Vomiting. SERTRALINE 100 MG TABLET Take 1.5 tablets by mouth daily. TIZANIDINE 2 MG TABLET Take 1 tablet by mouth 3 times daily. TRAZODONE 150 MG TABLET Take 1 tablet by mouth every evening at 6 PM. Modified Medications No medications on file Discontinued Medications ONDANSETRON 4 MG TAB DISPERSIBLE TABLET Take by mouth. Family History: Family History Problem Relation Age of Onset No known problems Mother Stroke Father Hypertension Father Lipid Disorder Father Depression Sister Cancer- Other Maternal Aunt cervical cancer Cervical Cancer Maternal Aunt Hypertension Maternal Grandmother Hypertension Maternal Grandfather Myocardial Infarction Maternal Grandfather Diabetes Maternal Grandfather Stroke Maternal Grandfather Breast Cancer Paternal Grandmother Social History: Social History Socioeconomic History Marital status: Spouse name: Not on file Number of children: Not on file Years of education: Not on file Highest education level: Not on file Occupational History Not on file Tobacco Use Smoking status: Never Smokeless tobacco: Never Vaping Use Vaping status: Never Used Substance and Sexual Activity Alcohol use: Yes Comment: occasionally Drug use: No Sexual activity: Yes Partners: Male control/protection: None Other Topics Concern Not on file Social History Narrative Not on file Social Determinants of Health Financial Resource Strain: Not on file Food Insecurity: Not on file Transportation Needs: Not on file Physical Activity: Not on file Stress: Not on file Social Connections: Not on file Intimate Partner Violence: Not on file Housing Stability: Not on file Physical Exam: Physical Exam 37-year-old female who is awake and alert. She is speaking in full sentences and has no acute respiratory distress. Vital signs are stable. Her respiratory rate is 16 to 18 on my exam and is nonlabored. Sclerae and conjunctiva clear and moist. Mouth has pink moist mucosa. Neck is supple and tracheais midline. Good range of motion neck without difficulty discomfort. No signs of trauma to the back. She is tender to palpation right costovertebral angle. States this greatly exacerbates her pain. She is able to sit up and move around. She does not seem to be tender over the spinous processes of the back. Lungs are clear to auscultation bilaterally good air movement. Heart is regular. Abdomen issoft and nontender. I can palpate in all 4 quadrants of the abdomen and she had no pain on palpation. Femoral pulses are symmetrical. No obvious hernia. Skin is warm and dry and well-perfused. Capillary refill brisk. No rash. She moves all 4 extremities on command with good muscle tone and strength. Peripheral pulses are palpable and symmetrical in all 4 extremities. Vital Signs During ED Visit Patient Vitals for the past 24 hrs: BP Temp Temp src Pulse Resp SpO2 Height 06/10/23 1212 115/65 -- -- 77 18 100 % -- 06/10/23 1126 115/64 -- -- 77 16 99 % -- 06/10/23 1050 140/63 98.7 F (37.1 C) Temporal -- -- -- -- 06/10/23 1049 -- -- -- -- -- -- 1.626 m (5' 4) 06/10/23 1048 -- -- -- 63 22 92 % -- Orders/Results: Orders Placed This Encounter CT ABDOMEN/PELVIS WITHOUT CONTRAST CHEM 7 (LYTES,BUN,CREA,GLUC) CBC, EDIF, PLATELET AMB REFERRAL TO NEPHROLOGY AMB REFERRAL TO FAMILY PRACTICE Ondansetron 4mg/2ml (ZOFRAN) injection 4 mg HYDROmorphone (DILAUDID) injection 0.5 mg Ondansetron 4 MG Tab Dispersible tablet URINALYSIS URINE MICROSCOPIC Results for orders placed or performed during the hospital encounter of 06/10/23 CHEM 7 (LYTES,BUN,CREA,GLUC) Result Value Ref Range Glucose 90 70 - 100 MG/DL BUN 14 7 - 20 MG/DL CREATININE SERUM 0.80 0.70 - 1.20 MG/DL SODIUM 139 137 - 145 MMOL/L POTASSIUM 4.0 3.5 - 5.1 MMOL/L CHLORIDE 109 (H) 98 - 107 MMOL/L CARBON DIOXIDE (CO2) 22 22 - 30 MMOL/L ESTIMATED GFR, NON AMER 86 ml/min/1.73sq.m ESTIMATED GFR, 104 ml/min/1.73sq.m GFR COMMENT Average GFR for 30-39 years old = 107. CBC, EDIF, PLATELET Result Value Ref Range WBC (WHITE BLOOD COUNT) 6.5 3.6 - 11.0 10*3/uL RBC 3.88 (L) 4.0 - 5.4 10*6/uL HEMOGLOBIN (HGB) 11.7 (L) 12.0 - 16.0 G/DL HEMATOCRIT (HCT) 36.1 36.0 - 48.0 % MEAN CELL VOLUME 93.0 80.0 - 100.0 FL Mean Cell HGB 30.2 26.0 - 35.0 PG MEAN CELL HGB CONCENTRATION 32.5 27.0 - 37.0 G/DL RBC DISTRIBUTION 13.1 11.5 - 14.5 % PLATELET COUNT 215 130 - 400 10*3/uL MEAN PLATELET VOLUME 8.2 7.4 - 11.0 FL DIFFERENTIAL TYPE AUTO DIFF % NEUTROPHILS 67.7 37.0 - 75.0 % LYMPHOCYTE 26.8 20.0 - 55.0 % MONOCYTE % 4.0 0.0 - 10.0 % EOSINOPHIL % 0.8 0.0 - 11.0 % BASOPHIL % 0.7 0.0 - 2.0 % Absolute Neutrophil Count 4.4 1.4 - 6.5 10*3/uL LYMPHOCYTES, ABSOLUTE 1.7 1.2 - 3.4 10*3/uL MONOCYTES, ABSOLUTE 0.3 0.0 - 0.7 10*3/uL ABSOLUTE EOSINOPHIL COUNT 0.1 0.0 - 0.7 10*3/uL ABSOLUTE BASOPHIL COUNT 0.0 0.0 - 0.2 10*3/uL URINALYSIS, MACRO Result Value Ref Range COLOR, URINE YELLOW YELLOW APPEARANCE, URINE CLEAR CLEAR Specific [place], Urine 1.015 1.010 - 1.025 PH URINE 6.0 5.0 - 7.0 Urine Protein NEGATIVE NEGATIVE mg/dl GLUCOSE, URINE NEGATIVE NEGATIVE mg/dl KETONES, URINE NEGATIVE NEGATIVE mg/dl BILIRUBIN, URINE NEGATIVE NEGATIVE BLOOD, URINE DIPSTICK TRACE-INTACT (A) NEGATIVE NITRITES, URINE NEGATIVE NEGATIVE UROBILINOGEN, URINE 0.2 0.2 - 1.0 E.U./dL LEUKOCYTE ESTERASE, URINE NEGATIVE NEGATIVE URINE MICROSCOPIC Result Value Ref Range WBC, URINE NEGATIVE NEGATIVE /HPF RBC, URINE NEGATIVE NEGATIVE /HPF Epithelial Cells UA 1 TO 5 /HPF Mucus NEGATIVE NEGATIVE BACTERIA, URINE NEGATIVE NEGATIVE CRYSTALS, URINE NONE NONE CASTS, URINE NONE NONE /LPF COMMENT, URINE CULTURE CRITERIA NOT MET, NO CULTURE PERFORMED. Radiographic Imaging CT ABDOMEN/PELVIS WITHOUT CONTRAST Final Result IMPRESSION: 1. Punctate nonobstructing left renal stone. Procedures: Procedures Moderate Sedation Procedure: No ED Summary/MDM Patient returns from CT scan is resting comfortably. There is no evidence of ureteral calculi. I spoke with Dr. Mariano and at this time the patient will be discharged home to follow up as an outpatient.I spoke at length with the patient. She did voice understanding and agreement with this. She is to call his office today and Winsome Cuevas, her primary care provider. She is given prescription for Zofran if needed for any nausea and she can take Tylenol as directed for any aches or pains. Clinical Impression: 1. Right flank pain No follow-ups on file. New Prescriptions ONDANSETRON 4 MG TAB DISPERSIBLE TABLET Take 1 tablet by mouth every 4 hours as needed for Nausea. Place on tongue Discontinued Medications ONDANSETRON 4 MG TAB DISPERSIBLE TABLET Take by mouth. An After Visit Summary was printed and given to the patient with above information. . Rhys Conn MD 06/10/23 1250 [facility] Emergency department Note* Rhys Conn MD - 06/10/2023 10:57 AM EDT Emergency Room Note [facility] EMERGENCY DEPARTMENT Service Date:.06/10/23 PCP: Winsome Cuevas Chief Complaint: Chief Complaint Patient presents with Flank Pain Sent from Dr Mariano's office due to worsening right sided flank pain with nausea since last night. Concern for kidney stone. Patient reports Stage 2 kidney disease HARMAN Vasques is a 37 y.o. female presents to the ED today due to right flank pain. Patient states had above complaint since Thursday night. Has been getting worse. Became suddenly much more severe today. She went and saw Dr. Mariano in the office and was sent to the emergency department. She states she has 10/10 pain in the right flank. States it is exactly like previous kidney stones. She has not noticed any blood in her urine. She has had a hysterectomy in the past. It was not donefor cancer. She has a history of chronic pain. I do see that she had a CT scan of the abdomen pelvis done July 02, 2022. It had small renal calculibut no ureteral calculi. No obstructing stones or hydronephrosis. She also had a CT scan of the abdomen and pelvis done May 23, 2022 which showed no acute abnormalities. CT scan abdomen pelvis with contrast done September 27, 2021 was read as no acute abnormalities identified. CT scan abdomen pelvis without contrast done July 19 2021 had no obstructive uropathy or urolithiasis. Review of Systems: Review of Systems She has no fever or chills. No upper respiratory complaints. She has slight nausea with the pain but no vomiting. No diarrhea or other gastrointestinal complaints. She has not complained any dysuria.She has not noticed any obvious blood in her urine. She denies any falls or trauma. She has no recent unexplained weight loss. Past Medical History: Past Medical History: Diagnosis Date Acute allergic rhinitis Anxiety Asthma Chronic pain Epilepsy Essential hypertension, benign Fibromyalgia Hypoglycemia Hypoglycemia 09/19/2016 Kidney disease 2018 Kidney stones Migraine Nephrolithiasis ROSA (obstructive sleep apnea) PID (pelvic inflammatory disease) Restless leg syndrome Seizure Past Surgical History: Past Surgical History: Procedure Laterality Date HYSTERECTOMY TOTAL ABDOMINAL OPEN ([facility]) 03/24/[address] DILATION AND CURETTAGE 11/27/2022 SECTION 01/05/2021 OTHER SURGICAL N/A 02/2020 OBGYN laproscopic unwound intestine. ABLATION NERVE RADIOFREQUENCY PULSED N/A 12/09/2019 [facility] nerve ablation to back L5-L11 VAGINAL SURGERY Bilateral 05/2017 Bilateral Labia Reduction COLONOSCOPY DIAGNOSTIC N/A 09/19/2016 Laterality: N/A; Surgeon: Jennifer Crow MD; Location: [facility] OR EGD DIAGNOSTIC N/A 09/19/2016 Laterality: N/A; Surgeon: Jennifer Crow MD; Location: [facility] OR [place]-OOPHORECTOMY LAPAROSCOPIC Right 03/2013 HPV CYSTOURETHROSCOPY W/ URETEROSCOPY/PYELOSCOPY W/ LITHOTRIPSY INCL STENT INSERTION Right 2011 BREAST BIOPSY benign TONSILLECTOMY ADENOIDECTOMY Allergies: Allergies Allergen Reactions Codeine And Related hives Morphine Hives Shellfish Allergy Angioedema (swelling) Shrimp Extract Allergy Skin Test Hives and Swelling *Adhesive Tape Rash Baclofen Incontinence Codeine Hives and Nausea and Vomiting Dicyclomine Confusion Metronidazole Seizures Nsaids Topiramate Pt tolerated Topamax on 07/17 well during inpatient stay without any symptoms Tramadol Seizures Medications: Patient's Medications New Prescriptions ONDANSETRON 4 MG TAB DISPERSIBLE TABLET Take 1 tablet by mouth every 4 hours as needed for Nausea. Place on tongue Previous Medications ACETAMINOPHEN 500 MG TABLET Take 2 tablets by mouth. ALBUTEROL 108 (90 BASE) MCG/ACT AERO SOLN INHALER Inhale 1 puff every 4 hours as needed for Wheezing. DIPHENHYDRAMINE-APAP, SLEEP, (TYLENOL PM EXTRA STRENGTH PO) Take 500 mg by mouth every 4 hours as needed. LORAZEPAM (ATIVAN) 0.5 MG TABLET Take 1 tablet by mouth 2 times daily as needed for Anxiety for up to 20 days. OXYCODONE-ACETAMINOPHEN 5-325 MG PER TABLET Take 2 tablets by mouth one time only for 1 dose. PROMETHAZINE HCL 12.5 MG TABLET Take 1 tablet by mouth every 4 hours as needed for Nausea / Vomiting. SERTRALINE 100 MG TABLET Take 1.5 tablets by mouth daily. TIZANIDINE 2 MG TABLET Take 1 tablet by mouth 3 times daily. TRAZODONE 150 MG TABLET Take 1 tablet by mouth every evening at 6 PM. Modified Medications No medications on file Discontinued Medications ONDANSETRON 4 MG TAB DISPERSIBLE TABLET Take by mouth. Family History: Family History Problem Relation Age of Onset No known problems Mother Stroke Father Hypertension Father Lipid Disorder Father Depression Sister Cancer- Other Maternal Aunt cervical cancer Cervical Cancer Maternal Aunt Hypertension Maternal Grandmother Hypertension Maternal Grandfather Myocardial Infarction Maternal Grandfather Diabetes Maternal Grandfather Stroke Maternal Grandfather Breast Cancer Paternal Grandmother Social History: Social History Socioeconomic History Marital status: Spouse name: Not on file Number of children: Not on file Years of education: Not on file Highest education level: Not on file Occupational History Not on file Tobacco Use Smoking status: Never Smokeless tobacco: Never Vaping Use Vaping status: Never Used Substance and Sexual Activity Alcohol use: Yes Comment: occasionally Drug use: No Sexual activity: Yes Partners: Male control/protection: None Other Topics Concern Not on file Social History Narrative Not on file Social Determinants of Health Financial Resource Strain: Not on file Food Insecurity: Not on file Transportation Needs: Not on file Physical Activity: Not on file Stress: Not on file Social Connections: Not on file Intimate Partner Violence: Not on file Housing Stability: Not on file Physical Exam: Physical Exam 37-year-old female who is awake and alert. She is speaking in full sentences and has no acute respiratory distress. Vital signs are stable. Her respiratory rate is 16 to 18 on my exam and is nonlabored. Sclerae and conjunctiva clear and moist. Mouth has pink moist mucosa. Neck is supple and tracheais midline. Good range of motion neck without difficulty discomfort. No signs of trauma to the back. She is tender to palpation right costovertebral angle. States this greatly exacerbates her pain. She is able to sit up and move around. She does not seem to be tender over the spinous processes of the back. Lungs are clear to auscultation bilaterally good air movement. Heart is regular. Abdomen issoft and nontender. I can palpate in all 4 quadrants of the abdomen and she had no pain on palpation. Femoral pulses are symmetrical. No obvious hernia. Skin is warm and dry and well-perfused. Capillary refill brisk. No rash. She moves all 4 extremities on command with good muscle tone and strength. Peripheral pulses are palpable and symmetrical in all 4 extremities. Vital Signs During ED Visit Patient Vitals for the past 24 hrs: BP Temp Temp src Pulse Resp SpO2 Height 06/10/23 1212 115/65 -- -- 77 18 100 % -- 06/10/23 1126 115/64 -- -- 77 16 99 % -- 06/10/23 1050 140/63 98.7 F (37.1 C) Temporal -- -- -- -- 06/10/23 1049 -- -- -- -- -- -- 1.626 m (5' 4) 06/10/23 1048 -- -- -- 63 22 92 % -- Orders/Results: Orders Placed This Encounter CT ABDOMEN/PELVIS WITHOUT CONTRAST CHEM 7 (LYTES,BUN,CREA,GLUC) CBC, EDIF, PLATELET AMB REFERRAL TO NEPHROLOGY AMB REFERRAL TO FAMILY PRACTICE Ondansetron 4mg/2ml (ZOFRAN) injection 4 mg HYDROmorphone (DILAUDID) injection 0.5 mg Ondansetron 4 MG Tab Dispersible tablet URINALYSIS URINE MICROSCOPIC Results for orders placed or performed during the hospital encounter of 06/10/23 CHEM 7 (LYTES,BUN,CREA,GLUC) Result Value Ref Range Glucose 90 70 - 100 MG/DL BUN 14 7 - 20 MG/DL CREATININE SERUM 0.80 0.70 - 1.20 MG/DL SODIUM 139 137 - 145 MMOL/L POTASSIUM 4.0 3.5 - 5.1 MMOL/L CHLORIDE 109 (H) 98 - 107 MMOL/L CARBON DIOXIDE (CO2) 22 22 - 30 MMOL/L ESTIMATED GFR, NON AMER 86 ml/min/1.73sq.m ESTIMATED GFR, 104 ml/min/1.73sq.m GFR COMMENT Average GFR for 30-39 years old = 107. CBC, EDIF, PLATELET Result Value Ref Range WBC (WHITE BLOOD COUNT) 6.5 3.6 - 11.0 10*3/uL RBC 3.88 (L) 4.0 - 5.4 10*6/uL HEMOGLOBIN (HGB) 11.7 (L) 12.0 - 16.0 G/DL HEMATOCRIT (HCT) 36.1 36.0 - 48.0 % MEAN CELL VOLUME 93.0 80.0 - 100.0 FL Mean Cell HGB 30.2 26.0 - 35.0 PG MEAN CELL HGB CONCENTRATION 32.5 27.0 - 37.0 G/DL RBC DISTRIBUTION 13.1 11.5 - 14.5 % PLATELET COUNT 215 130 - 400 10*3/uL MEAN PLATELET VOLUME 8.2 7.4 - 11.0 FL DIFFERENTIAL TYPE AUTO DIFF % NEUTROPHILS 67.7 37.0 - 75.0 % LYMPHOCYTE 26.8 20.0 - 55.0 % MONOCYTE % 4.0 0.0 - 10.0 % EOSINOPHIL % 0.8 0.0 - 11.0 % BASOPHIL % 0.7 0.0 - 2.0 % Absolute Neutrophil Count 4.4 1.4 - 6.5 10*3/uL LYMPHOCYTES, ABSOLUTE 1.7 1.2 - 3.4 10*3/uL MONOCYTES, ABSOLUTE 0.3 0.0 - 0.7 10*3/uL ABSOLUTE EOSINOPHIL COUNT 0.1 0.0 - 0.7 10*3/uL ABSOLUTE BASOPHIL COUNT 0.0 0.0 - 0.2 10*3/uL URINALYSIS, MACRO Result Value Ref Range COLOR, URINE YELLOW YELLOW APPEARANCE, URINE CLEAR CLEAR Specific [place], Urine 1.015 1.010 - 1.025 PH URINE 6.0 5.0 - 7.0 Urine Protein NEGATIVE NEGATIVE mg/dl GLUCOSE, URINE NEGATIVE NEGATIVE mg/dl KETONES, URINE NEGATIVE NEGATIVE mg/dl BILIRUBIN, URINE NEGATIVE NEGATIVE BLOOD, URINE DIPSTICK TRACE-INTACT (A) NEGATIVE NITRITES, URINE NEGATIVE NEGATIVE UROBILINOGEN, URINE 0.2 0.2 - 1.0 E.U./dL LEUKOCYTE ESTERASE, URINE NEGATIVE NEGATIVE URINE MICROSCOPIC Result Value Ref Range WBC, URINE NEGATIVE NEGATIVE /HPF RBC, URINE NEGATIVE NEGATIVE /HPF Epithelial Cells UA 1 TO 5 /HPF Mucus NEGATIVE NEGATIVE BACTERIA, URINE NEGATIVE NEGATIVE CRYSTALS, URINE NONE NONE CASTS, URINE NONE NONE /LPF COMMENT, URINE CULTURE CRITERIA NOT MET, NO CULTURE PERFORMED. Radiographic Imaging CT ABDOMEN/PELVIS WITHOUT CONTRAST Final Result IMPRESSION: 1. Punctate nonobstructing left renal stone. Procedures: Procedures Moderate Sedation Procedure: No ED Summary/MDM Patient returns from CT scan is resting comfortably. There is no evidence of ureteral calculi. I spoke with Dr. Mariano and at this time the patient will be discharged home to follow up as an outpatient.I spoke at length with the patient. She did voice understanding and agreement with this. She is to call his office today and Winsome Cuevas, her primary care provider. She is given prescription for Zofran if needed for any nausea and she can take Tylenol as directed for any aches or pains. Clinical Impression: 1. Right flank pain No follow-ups on file. New Prescriptions ONDANSETRON 4 MG TAB DISPERSIBLE TABLET Take 1 tablet by mouth every 4 hours as needed for Nausea. Place on tongue Discontinued Medications ONDANSETRON 4 MG TAB DISPERSIBLE TABLET Take by mouth. An After Visit Summary was printed and given to the patient with above information. . Rhys Conn MD 06/10/23 1250 [facility]04-[facility] History of Present illness Narrative* Timmy Mariano MD - 06/10/2023 10:00 AM EDT DAILY PROGRESS NOTE Admit Date: (Not on file) Date of Evaluation: 410:37 [facility] IMPRESSION AND PLAN: 36 y/o female w/ h/o HTN, epilepsy, kidney stone and PID here for hypokalemia. She is . She lost her first due to kidney infection. 1) Hypokalemia: K 2.9 -> 3.8 -> 3.3 -> 4.2 -> 4.0 -> 3.9 -> 3.8 -> 4.2 -> 3.8 -> 4.2 -> 3.6 -> 4.1 -> 4.0 , stable. Discontinued KCl 20mEQ PO Qday. Discontinue spironolactone. Will get K level. 2) Hematuria: Renal US is unremarkable. UA disclosed trace bacteria, trace ketones and trace esterase She is having extreme right flank pain She is crying in clinics from the pain Will send to ED for further workup. 3) HTN: SBP 100s. Currently off all meds. 4) Kidney stone: CT abdomen 2 mm nonobstructive left renal calculus. A punctate calculus is seen within the posterior urinary bladder, suggestive of a previously passed stone. Renal US disclosed no hydronephrosis calculus or focal renal abnormality UA disclosed rare crystals. Uric acid 3.4 PTH 27.4 Cr 0.98 -> 0.80 Will get CBC. SUBJECTIVE: Patient seen and examined. Chart, medications, labs reviewed. Appointment on 06/08/2023 Component Date Value Ref Range Status Glucose 06/08/2023 101 (H) 70 - 100 MG/DL Final Comment: NORMAL <100 mg/dL PREDIABETES 101-126 mg/dL DIABETES 126 mg/dL or higher BUN 06/08/2023 14 7 - 20 MG/DL Final CREATININE SERUM 06/08/2023 0.90 0.70 - 1.20 MG/DL Final SODIUM 06/08/2023 140 137 - 145 MMOL/L Final POTASSIUM 06/08/2023 4.2 3.5 - 5.1 MMOL/L Final CHLORIDE 06/08/2023 106 98 - 107 MMOL/L Final Please note: Triglyceride levels of 600mg/dL or higher may positively bias chloride results by approximately 2.1 mmol CARBON DIOXIDE (CO2) 06/08/2023 23 22 - 30 MMOL/L Final Albumin 06/08/2023 4.9 3.5 - 5.0 G/dl Final CALCIUM 06/08/2023 9.3 8.4 - 10.2 MG/DL Final PHOSPHORUS 06/08/2023 3.3 2.5 - 4.5 MG/DL Final ESTIMATED GFR, NON AMER 06/08/2023 75 ml/min/1.73sq.m Final ESTIMATED GFR, 06/08/2023 91 ml/min/1.73sq.m Final GFR COMMENT 06/08/2023 Average GFR for 30-39 years old = 107. Final Comment: Chronic Kidney disease, GFR = <60. Kidney failure, GFR = <15. The GFR estimate is not adjusted for extreme body surface area or acute process, nor has it been validated for women or ethnic groups other than and . MAGNESIUM 06/08/2023 2.1 1.6 - 2.3 MG/DL Final WBC (WHITE BLOOD COUNT) 06/08/2023 5.2 3.6 - 11.0 10*3/uL Final RBC 06/08/2023 4.11 4.0 - 5.4 10*6/uL Final HEMOGLOBIN (HGB) 06/08/2023 12.5 12.0 - 16.0 G/DL Final HEMATOCRIT (HCT) 06/08/2023 38.4 36.0 - 48.0 % Final MEAN CELL VOLUME 06/08/2023 93.4 80.0 - 100.0 FL Final Mean Cell HGB 06/08/2023 30.4 26.0 - 35.0 PG Final MEAN CELL HGB CONCENTRATION 06/08/2023 32.5 27.0 - 37.0 G/DL Final RBC DISTRIBUTION 06/08/2023 13.2 11.5 - 14.5 % Final PLATELET COUNT 06/08/2023 221 130 - 400 10*3/uL Final MEAN PLATELET VOLUME 06/08/2023 9.0 7.4 - 11.0 FL Final DIFFERENTIAL TYPE 06/08/2023 AUTO DIFF % Final NEUTROPHILS 06/08/2023 53.4 37.0 - 75.0 % Final LYMPHOCYTE 06/08/2023 37.1 20.0 - 55.0 % Final MONOCYTE % 06/08/2023 5.5 0.0 - 10.0 % Final EOSINOPHIL % 06/08/2023 2.9 0.0 - 11.0 % Final BASOPHIL % 06/08/2023 1.1 0.0 - 2.0 % Final Absolute Neutrophil Count 06/08/2023 2.8 1.4 - 6.5 10*3/uL Final LYMPHOCYTES, ABSOLUTE 06/08/2023 1.9 1.2 - 3.4 10*3/uL Final MONOCYTES, ABSOLUTE 06/08/2023 0.3 0.0 - 0.7 10*3/uL Final ABSOLUTE EOSINOPHIL COUNT 06/08/2023 0.2 0.0 - 0.7 10*3/uL Final ABSOLUTE BASOPHIL COUNT 06/08/2023 0.1 0.0 - 0.2 10*3/uL Final PROTEIN MG/DL-URINE 06/08/2023 <5 0 - 12 MG/DL Final CREATININE, MG/DL, URINE 06/08/2023 145.2 MG/DL Final NO NORMAL VALUES ESTABLISHED FOR RANDOM SPECIMENS PROTEIN/CREAT RATIO, URINE 06/08/2023 NOT CALCULATED Final COLOR, URINE 06/08/2023 YELLOW YELLOW Final APPEARANCE, URINE 06/08/2023 CLEAR CLEAR Final Specific [place], Urine 06/08/2023 1.020 1.010 - 1.025 Final PH URINE 06/08/2023 6.5 5.0 - 7.0 Final Urine Protein 06/08/2023 NEGATIVE NEGATIVE mg/dl Final GLUCOSE, URINE 06/08/2023 NEGATIVE NEGATIVE mg/dl Final KETONES, URINE 06/08/2023 TRACE (A) NEGATIVE mg/dl Final BILIRUBIN, URINE 06/08/2023 NEGATIVE NEGATIVE Final BLOOD, URINE DIPSTICK 06/08/2023 NEGATIVE NEGATIVE Final NITRITES, URINE 06/08/2023 NEGATIVE NEGATIVE Final UROBILINOGEN, URINE 06/08/2023 0.2 0.2 - 1.0 E.U./dL Final LEUKOCYTE ESTERASE, URINE 06/08/2023 TRACE (A) NEGATIVE Final SODIUM, URINE RANDOM 06/08/2023 163 (H) 30 - 90 MMOL/L Final WBC, URINE 06/08/2023 1 TO 5 NEGATIVE /HPF Final RBC, URINE 06/08/2023 NEGATIVE NEGATIVE /HPF Final Epithelial Cells UA 06/08/2023 20 TO 30 /HPF Final Mucus 06/08/2023 TRACE (A) NEGATIVE Final BACTERIA, URINE 06/08/2023 TRACE (A) NEGATIVE Final CRYSTALS, URINE 06/08/2023 NONE NONE Final CASTS, URINE 06/08/2023 NONE NONE /LPF Final COMMENT, URINE 06/08/2023 POSSIBLY CONTAMINATED SPECIMEN, CULTURE MUST BE ORDERED SEPARATELY IF DEEMED NECESSARY. Final LABS Labs-ABGs @ABGROUNDS@ Labs-CBC @CBCBRIEFROUNDS@ Labs-Chem 7(PMC) @[facility]@ Labs-Coa WBC (WHITE BLOOD COUNT) Date Value Ref Range Status 06/08/2023 5.2 3.6 - 11.0 10*3/uL Final 07/28/2022 4.5 3.6 - 11.0 10*3/uL Final 07/03/2022 5.6 3.6 - 11.0 10*3/uL Final HEMOGLOBIN (HGB) Date Value Ref Range Status 06/08/2023 12.5 12.0 - 16.0 G/DL Final 07/28/2022 12.5 12.0 - 16.0 G/DL Final 07/03/2022 11.3 (L) 12.0 - 16.0 G/DL Final HEMATOCRIT (HCT) Date Value Ref Range Status 06/08/2023 38.4 36.0 - 48.0 % Final 07/28/2022 38.5 36.0 - 48.0 % Final 07/03/2022 34.9 (L) 36.0 - 48.0 % Final PLATELET COUNT Date Value Ref Range Status 06/08/2023 221 130 - 400 10*3/uL Final 07/28/2022 185 130 - 400 10*3/uL Final 07/03/2022 165 130 - 400 10*3/uL Final SODIUM Date Value Ref Range Status 06/08/2023 140 137 - 145 MMOL/L Final 07/28/2022 135 (L) 137 - 145 MMOL/L Final 07/03/2022 141 136 - 145 MMOL/L Final CHLORIDE Date Value Ref Range Status 06/08/2023 106 98 - 107 MMOL/L Final Comment: Please note: Triglyceride levels of 600mg/dL or higher may positively bias chloride results by approximately 2.1 mmol 07/28/2022 101 98 - 107 MMOL/L Final Comment: Please note: Triglyceride levels of 600mg/dL or higher may positively bias chloride results by approximately 2.1 mmol 07/03/2022 112 (H) 98 - 107 MMOL/L Final BUN Date Value Ref Range Status 06/08/2023 14 7 - 20 MG/DL Final 07/28/2022 12 7 - 20 MG/DL Final 07/03/2022 12 7 - 20 MG/DL Final POTASSIUM Date Value Ref Range Status 06/08/2023 4.2 3.5 - 5.1 MMOL/L Final 07/28/2022 4.0 3.5 - 5.1 MMOL/L Final 07/03/2022 4.0 3.5 - 5.1 MMOL/L Final CREATININE SERUM Date Value Ref Range Status 06/08/2023 0.90 0.70 - 1.20 MG/DL Final 07/28/2022 0.80 0.7 - 1.2 MG/DL Final 07/03/2022 0.80 0.52 - 1.04 MG/DL Final Glucose Date Value Ref Range Status 06/08/2023 101 (H) 70 - 100 MG/DL Final Comment: NORMAL <100 mg/dL PREDIABETES 101-126 mg/dL DIABETES 126 mg/dL or higher 07/28/2022 85 70 - 100 MG/DL Final Comment: NORMAL <100 mg/dL PREDIABETES 101-126 mg/dL DIABETES 126 mg/dL or higher 07/03/2022 90 70 - 100 MG/DL Final Comment: NORMAL <100 mg/dL PREDIABETES 101-126 mg/dL DIABETES 126 mg/dL or higher PT Date Value Ref Range Status 07/03/2022 14.1 11.8 - 14.4 SEC Final 12/23/2018 13.4 11.6 - 14.0 SEC Final 08/01/2018 12.8 11.6 - 14.0 SEC Final PTT Date Value Ref Range Status 08/01/2018 27.7 23.2 - 34.5 SEC Final Comment: THERAPEUTIC RANGE (43.0-65.0) 05/27/2018 29.6 23.2 - 34.5 SEC Final Comment: THERAPEUTIC RANGE (43.0-65.0) 06/25/2017 27.2 23.2 - 34.5 SEC Final Comment: THERAPEUTIC RANGE (43.0-65.0) PROTEIN, TOTAL Date Value Ref Range Status 07/03/2022 6.5 6.3 - 8.2 GM/DL Final 07/02/2022 8.5 (H) 6.3 - 8.2 GM/DL Final 10/07/2021 7.7 6.3 - 8.2 GM/DL Final Albumin Date Value Ref Range Status 06/08/2023 4.9 3.5 - 5.0 G/dl Final 07/28/2022 4.6 3.5 - 5.0 G/dl Final 07/03/2022 3.5 3.5 - 5.0 G/dl Final AST Date Value Ref Range Status 07/03/2022 15 15 - 41 IU/L Final 07/02/2022 22 15 - 41 IU/L Final 10/07/2021 20 15 - 41 IU/L Final ALT Date Value Ref Range Status 07/03/2022 13 (L) 14 - 54 IU/L Final 07/02/2022 16 14 - 54 IU/L Final 10/07/2021 18 14 - 54 IU/L Final BILIRUBIN, TOTAL Date Value Ref Range Status 07/03/2022 0.3 0.2 - 1.2 MG/DL Final CALCIUM Date Value Ref Range Status 06/08/2023 9.3 8.4 - 10.2 MG/DL Final 07/28/2022 9.3 8.4 - 10.2 MG/DL Final 07/03/2022 8.6 8.4 - 10.2 MG/DL Final PHOSPHORUS Date Value Ref Range Status 06/08/2023 3.3 2.5 - 4.5 MG/DL Final 07/28/2022 3.0 2.5 - 4.5 MG/DL Final 06/30/2022 3.1 2.5 - 4.5 MG/DL Final MAGNESIUM Date Value Ref Range Status 06/08/2023 2.1 1.6 - 2.3 MG/DL Final 07/28/2022 2.2 1.6 - 2.3 MG/DL Final Comment: Testing performed at [place], [place] [address] 07/03/2022 1.9 1.6 - 2.3 MG/DL Final Lab Results Component Value Date CREATURINE 145.2 06/08/2023 CREATSERUM 0.90 06/08/2023 BUN 14 06/08/2023 SODIUM 140 06/08/2023 POTASSIUM 4.2 06/08/2023 CHLORIDE 106 06/08/2023 CO2 23 06/08/2023 ROS: Constitution: No fever, no chill HEENT: No headache, no sinus issues CV: No chest pain, no palpitation Lung: No cough, No SOB Abd: No diarrhea, no constipation Neuro: No seizure, no loss of consciousness Heme: No bleeding, no bruise PHYSICAL EXAM: Wt Readings from Last 3 Encounters: 06/10/23 70.3 kg (155 lb) 04/22/23 70.6 kg (155 lb 11.2 oz) 02/10/23 72.6 kg (160 lb) Temp Readings from Last 3 Encounters: 07/03/22 98.2 F (36.8 C) (Oral) 11/11/21 99 F (37.2 C) 06/12/21 97.4 F (36.3 C) BP Readings from Last 3 Encounters: 06/10/23 150/80 04/22/23 110/80 02/10/23 122/78 Pulse Readings from Last 3 Encounters: 06/10/23 111 04/22/23 78 02/10/23 97 Gen: NAD, lying in bed, conversant HEENT: Atraumatic, PERRLA, moist membrane CV: RRR, nl S1 and S2, no m/g/r Lung: CTAB, no wheezing, no crackle Abd: +BS, nontender, no distended Ext: No rash, no clubbing, no cyanosis. No edema. Neuro: CNII-XII grossly intact, 5/5 strength, normal tone Skin: Warm and dry documented in this [facility]03-18-2024 History of Present illness Narrative* Mary Lou Morrison, DO - 05/04/2023 3:15 PM EDT Images from the original note were not included. [facility] SECTION FOR MINIMALLY INVASIVE GYNECOLOGIC SURGERY OUTPATIENT VISIT DATE 05/04/2023 OUTPATIENT VISIT TYPE POST OPERATIVE FOLLOW UP History: Kendall Vasques is a 37 year old female here for post operative follow up appointment. She underwent Procedure: Total laparoscopic hysterectomy, left salpingectomy, excision of endometriosis, cystoscopy Pre-Op/Pre-Procedure Diagnosis: Pelvic pain and AUB Post-Op/Post-Procedure Diagnosis: Same as pre-op diagnosis on indicated for 03/24/23. She reports feeling 70% better since her procedure. Her appetite is fair. She describes her pain as yes: Location: abdomen, Severity: 0 and 4. She is currently taking tylenoland zanaflex for pain control. She has not had sexual intercourse since the procedure. Report nausea/ Denies vomiting/chest pain/shortness of breath. Ambulating well. No issues with voiding or BMs. Pt was in ED this past Thursday for LLQ, kidney stone, cyst. No follow up scheduled at this time. ROS: Constitutional: Denies fever or chills GI: Denies abdominal pain, nausea, vomiting, bloody stools or diarrhea : Denies dysuria Exam: Vitals: 05/04/23 1510 BP: 119/75 Height: 162.6 cm (5' 4) (03/24/2023 6:27 AM) There is no height or weight on file to calculate BMI. Neuro/psych: Alert and oriented x 3 in a pleasant mood Skin: Warm, dry and intact Abdomen: Soft, non tender, non distended, no hepatosplenomegaly or hernias. Incision: c/d/i Pelvic: Vaginal cuff: well healed, intact Assessment: Ms. Kendall Vasques is a 37 year old female presenting for postop check status post TLH.She reports doing well without concerns. Pathology discussed and surgical details reviewed. Plan: -May continue to increase physical activity as tolerated -May resume intercourse -Refrain from heavy lifting for 4 weeks postop -Follow up with general provider for annual care -All questions answered and pt agrees with plan Mary Lou Morrison DO [facility] NoteHNO ID: [id number] Author: MARY LOU MORRISON DO Service: ? Author Type: Physician Type: Progress Notes Filed: 05/04/2023 16:52 Note Text: [facility] SECTION FOR MINIMALLY INVASIVE GYNECOLOGIC SURGERY OUTPATIENT VISIT DATE 05/04/2023 OUTPATIENT VISIT TYPE POST OPERATIVE FOLLOW UP History: Kendall Vasques is a 37 year old female here for post operative follow up appointment. She underwent Procedure: Total laparoscopic hysterectomy, left salpingectomy, excision of endometriosis, cystoscopy Pre-Op/Pre-Procedure Diagnosis: Pelvic pain and AUB Post-Op/Post-Procedure Diagnosis: Same as pre-op diagnosis on indicated for 03/24/23. She reports feeling 70% better since her procedure. Her appetite is fair. She describes her pain as yes: Location: abdomen, Severity: 0 and 4. She is currently taking tylenol and zanaflex for pain control. She has not had sexual intercourse since the procedure. Report nausea/ Denies vomiting/chest pain/shortness of breath. Ambulating well. No issues with voiding or BMs. Pt was in ED this past Thursday for LLQ, kidney stone, cyst. No follow up scheduled at this time. ROS: Constitutional: Denies fever or chills GI: Denies abdominal pain, nausea, vomiting, bloody stools or diarrhea : Denies dysuria Exam: Vitals: 05/04/23 1510 BP: 119/75 Height: 162.6 cm (5' 4) (03/24/2023 6:27 AM) There is no height or weight on file to calculate BMI. Neuro/psych: Alert and oriented x 3 in a pleasant mood Skin: Warm, dry and intact Abdomen: Soft, non tender, non distended, no hepatosplenomegaly or hernias. Incision: c/d/i Pelvic: Vaginal cuff: well healed, intact Assessment: Ms. Kendall Vasques is a 37 year old female presenting for postop check status post TLH. She reports doing well without concerns. Pathology discussed and surgical details reviewed. Plan: -May continue to increase physical activity as tolerated -May resume intercourse -Refrain from heavy lifting for 4 weeks postop -Follow up with general provider for annual care -All questions answered and pt agrees with plan [facility] History of Present illness Narrative* Winsome Cuevas APRN-DORETHA - 04/22/2023 11:00 AM EST Chief Complaint Patient presents with Anxiety Nausea Back Pain Insomnia Heart Problem HPI: Interval History: Since our last appointment, she had a hysterectomy on 03/24/23. States healing has been tough, but feeling good about her choice to have surgery. Regarding Insomnia: She presents today for complaint of insomnia. Onset of symptoms: years. Previously treated with: Trazodone has worked well to help with sleep. Dose of 150mg does well for her. She would like a pill for 150mg rather than cutting the 100mg pills in half. . Current meds include: trazodone 150mg daily. Frequency of medication use: nightly Pt reports difficulty initiating sleep: Yes Difficulty maintaining sleep: Yes Early awakening: Yes Pt reports or exhibits symptoms of anxiety/depression: Yes; feels symptoms are currently under control. Regarding Anxiety/Depression: Kendall presents with the complaint of anxiety/depression which is currently under suboptimal control. Started seeing a therapist Online specifically for CBT. Weekly appointments at this point, but learned that her insurance was not covering, so has stopped these appointments due to cost. She reports the following triggers: stress. Feels that she has more anxiety than usual. States she tries ativan and it does not seem to be effective. Other symptoms include: depressed mood, insomnia. Denies SI/HI. Current treatment includes: zoloft 100mg daily. She has taken zoloft 150mg daily in the past, but this dose was decreased when she was . Did fine on the higher dose. Significant medical conditions: see list Previous Medications: celexa and she did not like as it caused weight gain and no improvement. Wellbutrin around 10 years ago. Regarding Back Pain: States she takes tizanidine as needed for back pain. Also finds that it helps with overall muscle aches. She finds this to be more effective than strongly pain medications. Regarding VSD: Reports last year having an echo when she was seen at [facility] for chest pain. States echo showedVSD and this was only mentioned ot her by her anesthesiologist prior to hysterectomy. ROS: Constitutional: Positive for fatigue. Negative for fever. HENT: Negative for congestion, ear pain and sore throat. Eyes: Negative for pain and redness. Respiratory: Negative for cough and shortness of breath. Cardiovascular: Negative for chest pain and palpitations. Gastrointestinal: Positive for abdominal pain. Negative for constipation, diarrhea and nausea. Genitourinary: Negative for difficulty urinating and dysuria. Musculoskeletal: Negative for arthralgias and myalgias. Skin: Positive for wound. Negative for rash. Neurological: Negative for dizziness and headaches. All other systems reviewed and are negative. Physical Exam: BP 110/80 Pulse 78 Ht 1.626 m (5' 4) Wt 70.6 kg (155 lb 11.2 oz) SpO2 99% BMI 26.73 kg/m Smoking Status Never Body mass index is 26.73 kg/m . Physical Exam Vitals and nursing note reviewed. Constitutional: Appearance: Normal appearance. HENT: Head: Normocephalic and atraumatic. Eyes: Conjunctiva/sclera: Conjunctivae normal. Pupils: Pupils are equal, round, and reactive to light. Cardiovascular: Rate and Rhythm: Normal rate and regular rhythm. Pulmonary: Effort: Pulmonary effort is normal. Breath sounds: Normal breath sounds. Skin: General: Skin is warm and dry. Neurological: Mental Status: She is alert and oriented to person, place, and time. Psychiatric: Mood and Affect: Mood normal. Behavior: Behavior normal. Assessment/Plan: 1. Generalized anxiety disorder Increase sertraline to 150mg daily. -Continue with homework from previous counselor. - Sertraline 100 MG tablet; Take 1.5 tablets by mouth daily. Dispense: 135 tablet; Refill: 0 2. Nausea -Refill on phenergan to use as needed for nausea. - Promethazine HCl 12.5 MG tablet; Take 1 tablet by mouth every 4 hours as needed for Nausea / Vomiting. Dispense: 30 tablet; Refill: 0 3. Chronic bilateral low back pain without sciatica -Chronic and stable. Continue tizanidine as needed. - Tizanidine 2 MG tablet; Take 1 tablet by mouth 3 times daily. Dispense: 90 tablet; Refill: 0 4. Psychophysiological insomnia -Chronic and stable. No change to current trazodone. - traZODone 150 MG tablet; Take 1 tablet by mouth every evening at 6 PM. Dispense: 90 tablet; Refill: 0 5. VSD (ventricular septal defect) -Refer to cardiology. - AMB REFERRAL TO CARDIOVASCULAR MEDICINE *Follow up in 3 months.* Patient was advised to call with any questions or concerns. If symptoms worsen patient was advised to follow up in our office or the Emergency Dept. Benefits, Risks, Contraindications, and Complications of recommended treatments were explained the patient understands and agrees to proceed with plan. Winsome Cuevas APRN-DECK MECH[employer]IC 04/22/2023 * Tena Portillo - 04/22/2023 11:00 AM EST Nurse Note: Review of Systems Constitutional: Positive for fatigue. Negative for fever. HENT: Negative for congestion, ear pain and sore throat. Eyes: Negative for pain and redness. Respiratory: Negative for cough and shortness of breath. Cardiovascular: Negative for chest pain and palpitations. Gastrointestinal: Positive for abdominal pain. Negative for constipation, diarrhea and nausea. Genitourinary: Negative for difficulty urinating and dysuria. Musculoskeletal: Negative for arthralgias and myalgias. Skin: Positive for wound. Negative for rash. Neurological: Negative for dizziness and headaches. All other systems reviewed and are negative. documented in this [facility]03-06-2024 Instructions* Patient Instructions* CHRISTELLE Peace - 04/22/2023 11:00 AM EST *Refills on meds. Increase zoloft to 150mg daily. [facility]. Patient was advised to call with any questions or concerns. If symptoms worsen patient was advised to follow up in our office or the Emergency Dept. Benefits, Risks, Contraindications, and Complications of recommended treatments were explained the patient understands and agrees to proceed with plan. documented in this [facility]02-21-2024 History of Present illness Narrative* Radha Santiago APRN.CNP - 04/08/2023 10:30 AM EST Images from the original note were not included. [facility] Department of Minimally Invasive 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 Surgery [facility] PATIENT NAME: Kendall Vasques DATE: 04/08/2023 Patient Name and verified: Yes Patient Location: [place] This Virtual Visit was completed using My Chart Zoom platform. I have communicated my name and active licensure. The patient's identity and physical location wereverified at the time of this visit. Either the patient or their legal administrative representative has been informed of the risks and benefits of -- and alternatives to -- treatment through a remote evaluation andconsents to proceed with the evaluation remotely. Chief Complaint CC/REASON FOR VISIT: Post Op History of Present Illness: Kendall is a 37 year old who presents for a post op Distance Health visit. SURGERY & DATE: 03/24/2023 Total laparoscopic hysterectomy, left salpingectomy, excision of endometriosis, cystoscopy with Dr. Morrison Pre-Op/Pre-Procedure Diagnosis: Pelvic pain and AUB Post-Op/Post-Procedure Diagnosis: Same as pre-op diagnosis Complications: None Findings: Uterus: hypervascularity, normal size Left ovary: 2cm physiologic cyst Right ovary: surgically absent Left fallopian tube: normal Right fallopian tube: Surgically absent Posterior cul-de-sac: normal Liver: normal Other: right pelvic brim lesion, scarring and fibrosis of the left pelvic sidewall PATHOLOGY: FINAL DIAGNOSIS A. Pelvic sidewall tissue, excision - Endometriosis. B. Uterus, cervix, left fallopian tube, hysterectomy and left salpingectomy: Cervix- Chronic inflammation and tubal metaplasia. Endometrium- Secretory endometrium. Myometrium- Adenomyosis. Fallopian tube- Hydrosalpinx. C. Right pelvic brim peritoneum, soft tissue, excision: - Fibroadipose tissue with mild chronic inflammation. SUBJECTIVE/INTERVAL HISTORY: Kendall [place] reports that she feels okay. No fever or chills. No shortness of breath, cough, or chest pain. No incisional redness, swelling, or drainage. Patient reports that her appetite is fair. No abdominal pain, vomiting, diarrhea, or constipation. +nausea, taking stool softener daily, last BM this morning No dysuria, gross hematuria, urinary frequency, urinary urgency, or incontinence. Rates post op pain as 8/10 on average the past few days. She is taking OTC pain medications still. Reports she is currently taking 600mg ibuprofen every 4 hours She is taking tylenol in between ibuprofen doses She also takes zanaflex which is prescribed - takes 2 tablets PRN three times daily. She has 5 oxycodone left. Feels pain is increased by overdoing it past few days Helping grandmother move into rehab Yesterday was helping grandmother pack. Was having NO vaginal bleeding until very active yesterday with packing. Reports she sees pink tinge every time she wipes now Not having bright red bleeding She is up and moving every 2 hours during the day Past Medical History: PAST MEDICAL HISTORY Diagnosis Date Abnormal Pap smear of cervix +HPV Anemia Asthma Breast cyst, left 2018 Chlamydia Depression/anxiety Herpes simplex virus (HSV) infection Hx of ovarian cyst Hx: UTI (urinary tract infection) Hypertension Hypoglycemia 5 years ago Infectious mononucleosis Infertility, female Insomnia in prior , currently 11/17/2022 PID (acute pelvic inflammatory disease) 2014 Placental abruption depression Recurrent UTI Renal calculi recurrent kidney stones Seizure disorder (HCC) psychogenic Sickle cell anemia (HCC) Syncope and collapse with pseudo-seizures Thyroid disease Family History: Family History Problem Relation Age of Onset Stroke Father No Known Problems Sister Hypertension Maternal Grandmother Blood Clots Maternal Grandmother other (Hypoglycemia) Maternal Grandfather Heart Maternal Grandfather Diabetes Maternal Grandfather Breast Cancer Paternal Grandmother Heart Attack Paternal Grandfather other (epilepsy) Half-sister Past Surgical History: PAST SURGICAL HISTORY Procedure Laterality Date BREAST CYST ASPIRATION - ADDTL LESION 2018 Dr Corona-Drifting CERVIX UTERI CONIZA LP ELCTRO EXCI 2008 SECTION HX classical incision CT ABDOMEN 09/10/[address] [facility] [address] BRAIN 06/19/2005 [facility] D&C, DIAG AND/OR THERAPEUTIC 11/27/2022 Suction D&C for missed AB L'SCOPE DX W/WO BRUSHINGS/WASHINGS 03/17/2022 Dr Myers-pelvic pain-endometriosis ruled out L'SCOPE DX W/WO BRUSHINGS/WASHINGS 03/12/2020 lysis of adhesions-Dr Myers LITHOTRIPSY XTRCORP SHOCK WAVE 04/16/2006 Lithotripsy Right kidney OVARY SURGERY HX 04/10/2013 Excision of right fallopian tube and ovary PAST SURGICAL HISTORY OF 02/16/2003 right ear cartilage repair TONSILLECTOMY AND ADENOIDECTOMY HX 12/17/2012 Social History: Social History Tobacco Use Smoking status: Never Smokeless tobacco: Never Vaping Use Vaping Use: Never used Substance Use Topics Alcohol use: No Drug use: No Allergies: ALLERGIES Allergen Reactions Shellfish Containin* Swelling Adhesive Rash Codeine Hives, Vomiting Flagyl [Metronidazo* Other: See Comments SZ Morphine Hives Nsaids (Non-Steroid* Other: See Comments Stage 2 kidney dx Topamax [Topiramate] GI Upset Allergies updated: Yes Medications: Current Outpatient Medications Medication Sig tiZANidine HCl (ZANAFLEX) 2 mg capsule Take 1-2 capsules by mouth three times a day as needed. norethindrone (AYGESTIN) 5 mg tablet Take 1 tablet by mouth once daily. sertraline (ZOLOFT) 100 mg tablet Take 100 mg by mouth once daily. albuterol HFA (PROVENTIL HFA, VENTOLIN HFA) 90 mcg/actuation inhaler Inhale 1 Puff as instructed every 4 hours as needed. traZODone (DESYREL) 100 mg tablet Take 100 mg by mouth. ondansetron orally disintegrating (ZOFRAN ODT) 4 mg disintegrating tablet Take 1 tablet by mouth every 6 hours as needed for nausea/vomiting. diphenhydrAMINE (SLEEP AID, DIPHENHYDRAMINE,) 50 mg capsule Take 50 mg by mouth every 6 hours as needed. No current facility-administered medications for this visit. Medications reviewed in detail and updated PRN. Yes Physical Exam: LMP 02/22/2023 GENERAL: pleasant, euthymic sounding female in no apparent distress Physical exam otherwise deferred Recent labs/Diagnostic studies: I have thoroughly reviewed this patients previous notes, encounters, labs, and results prior to this visit. Assessment and Plan Encounter Diagnosis ICD-10-CM 1. Postoperative state Z98.890 2. Endometriosis determined by laparoscopy N80.9 3. Adenomyosis N80.03 4. S/P JOHN (total abdominal hysterectomy) 03/2023 (age 37) for endometriosis and adenomyosis Z90.710 1) Discussed results of pathology and implications with patient. 2) Postop restrictions and wound care reviewed. 3) Keep follow up with Dr. Morrison on 05/04/2023. Appointments for Next 60 Days Date Time Provider Location Dept Phone 04/08/2023 10:30 AM RADHA SANTIAGO Bld[facility] [phone] 05/04/2023 3:15 PM MARY LOU MORRISON [facility] [phone] SIGNATURE: Radha Santiago APRN.[employer]CK MECH[employer]IC PAGER: [phone] [facility] NoteHNO ID: [id number] Author: RADHA SANTIAGO APRN.CNP Service: ? Author Type: Nurse Practitioner Type: Progress Notes Filed: 04/08/2023 10:49 Note Text: [facility] [place] Department of Minimally Invasive 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 Surgery [facility] PATIENT NAME: Kendall Vasques DATE: 04/08/2023 Patient Name and verified: Yes Patient Location: [place] This Virtual Visit was completed using My Chart Zoom platform. I have communicated my name and active licensure. The patient's identity and physical location were verified at the time of this visit. Either the patient or their legal administrative representative has been informed of the risks and benefits of -- and alternatives to -- treatment through a remote evaluation and consents to proceed with the evaluation remotely. Chief Complaint CC/REASON FOR VISIT: Post Op History of Present Illness: Kendall is a 37 year old who presents for a post op [facility] visit. SURGERY AND DATE: 03/24/2023 Total laparoscopic hysterectomy, left salpingectomy, excision of endometriosis, cystoscopy with Dr. Morrison Pre-Op/Pre-Procedure Diagnosis: Pelvic pain and AUB Post-Op/Post-Procedure Diagnosis: Same as pre-op diagnosis Complications: None Findings: Uterus: hypervascularity, normal size Left ovary: 2cm physiologic cyst Right ovary: surgically absent Left fallopian tube: normal Right fallopian tube: Surgically absent Posterior cul-de-sac: normal Liver: normal Other: right pelvic brim lesion, scarring and fibrosis of the left pelvic sidewall PATHOLOGY: FINAL DIAGNOSIS A. Pelvic sidewall tissue, excision - Endometriosis. B. Uterus, cervix, left fallopian tube, hysterectomy and left salpingectomy: Cervix- Chronic inflammation and tubal metaplasia. Endometrium- Secretory endometrium. Myometrium- Adenomyosis. Fallopian tube- Hydrosalpinx. C. Right pelvic brim peritoneum, soft tissue, excision: - Fibroadipose tissue with mild chronic inflammation. SUBJECTIVE/INTERVAL HISTORY: Kendall Vasques reports that she feels okay. No fever or chills. No shortness of breath, cough, or chest pain. No incisional redness, swelling, or drainage. Patient reports that her appetite is fair. No abdominal pain, vomiting, diarrhea, or constipation. +nausea, taking stool softener daily, last BM this morning No dysuria, gross hematuria, urinary frequency, urinary urgency, or incontinence. Rates post op pain as 8/10 on average the past few days. She is taking OTC pain medications still. Reports she is currently taking 600mg ibuprofen every 4 hours She is taking tylenol in between ibuprofen doses She also takes zanaflex which is prescribed - takes 2 tablets PRN three times daily. She has 5 oxycodone left. Feels pain is increased by overdoing it past few days Helping grandmother move into rehab Yesterday was helping grandmother pack. Was having NO vaginal bleeding until very active yesterday with packing. Reports she sees pink tinge every time she wipes now Not having bright red bleeding She is up and moving every 2 hours during the day Past Medical History: PAST MEDICAL HISTORY Diagnosis Date Abnormal Pap smear of cervix +HPV Anemia Asthma Breast cyst, left 2018 Chlamydia Depression/anxiety Herpes simplex virus (HSV) infection Hx of ovarian cyst Hx: UTI (urinary tract infection) Hypertension Hypoglycemia 5 years ago Infectious mononucleosis Infertility, female Insomnia in prior , currently 11/17/2022 PID (acute pelvic inflammatory disease) 2015 Placental abruption depression Recurrent UTI Renal calculi recurrent kidney stones Seizure disorder (HCC) psychogenic Sickle cell anemia (HCC) Syncope and collapse with pseudo-seizures Thyroid disease Family History: Family History Problem Relation Age of Onset Stroke Father No Known Problems Sister Hypertension Maternal Grandmother Blood Clots Maternal Grandmother other (Hypoglycemia) Maternal Grandfather Heart Maternal Grandfather Diabetes Maternal Grandfather Breast Cancer Paternal Grandmother Heart Attack Paternal Grandfather other (epilepsy) Half-sister Past Surgical History: PAST SURGICAL HISTORY Procedure Laterality Date BREAST CYST ASPIRATION - ADDTL LESION 2018 Dr Corona-Arleth CERVIX UTERI CONIZA LP ELCTRO EXCI 2008 SECTION HX classical incision CT ABDOMEN 09/10/[address] [facility] [address] BRAIN 06/19/2005 [facility] DANDC, DIAG AND/OR THERAPEUTIC 11/27/2022 Suction DANDC for missed AB L'SCOPE DX W/WO BRUSHINGS/WASHINGS 03/17/2022 Dr Myers-pelvic pain-endometriosis ruled out L'SCOPE DX W/WO BRUSHINGS/WASHINGS 03/12/2020 lysis of adhesions-Dr Myers LITHOTRIPSY XTRCORP SHOCK WAVE 04/16/2006 Lithotripsy Right kidney OVARY SURGERY HX 04/10/2013 Excision of right fallopian tube and (more content not included)...[facility]02-08-2024 Miscellaneous Notes* Telephone Encounter - Robby Jiang RN - 03/26/2023 11:17 AM EST Images from the original note were not included. [facility] SECTION FOR MINIMALLY INVASIVE GYNECOLOGIC SURGERY AND CHRONIC PELVIC PAIN Postop call POD# NUMBERS 1-12: [address] Morrison. Procedure: (from op note) Total laparoscopic hysterectomy, left salpingectomy, excision of endometriosis, cystoscopy Reassured regarding typical pain and recovery following laparoscopic surgery. Reviewed pain medication use for optimal postoperative pain control. Reminded to ambulate every 2 hours while awake Reminded of normal return of bowel function, management of constipation. Reminded contact numbers are listed in their postop instructions After hours fellow computer information systems instructor [phone] Office number [phone] (M-F, 8-4:30) Patient advised to call 911 or report to ED Fever (temperature greater than 100.4 degrees) Pain that is worsening or not relieved by pain medications. Nausea, vomiting or diarrhea that is not improving Blood, pus, or opening of incision(s) Heavy vaginal bleeding (more than a period) Shortness of breath Swollen or tender lower leg Lightheadedness, dizziness, or fainting Patient expressed understanding. Post op appointment: 04/08/23 VV Radha Santiago Patient questions/concerns: 9/10 Umbilical Pain- pt reported taking Tylenol and Motrin Q4-6 hours. Pt educated to Alternate meds within 3 hours of each other and to take oxycodone for breakthrough pain. Pt to try this regimen and to call us or go to ED if pain has not improved. Wears abd. binder for comfort Described bladder pressure, weak urinary stream and hesitancy- pt can empty just takes longer. Educated that this may take a few weeks to improve but should improve over time. Passing gas, no BM yet--taking Senna BID and educated to take Miralax or Milk of Magnesia if she has not had a BM with 3-4 days. Notes ambulating and increasing fluids. Fever- pt reports typical fever after surgery and prev. surgeries- had 101.4 F temp at home for 4 hours, has since resolved. Pt educated when to go to ED. [facility] NoteHNO ID: [id number] Author: RICKY VALLE RN Service: Nursing Author Type: Registered Nurse Type: Nursing Progress Note Filed: 03/24/2023 11:11 Note Text: Patient able to void without difficulty.[id number] NoteHNO ID: [id number] Author: KELSEY BLANCO APRN.CRNA Service: Anesthesiology Author Type: Nurse Motorcycle Builder Type: Anesthesia Procedure Notes Filed: 03/24/2023 08:05 Note Text: ANESTHESIOLOGY PROCEDURE NOTE Airway General Information Procedure Start Time/Medication Administration: 03/24/2023 7:44 AM Patient location during procedure: OR Timeout Performed Pre-procedure: timeout performed Consent Obtained: Yes Patient identity confirmed: arm band and patient Staffing DETENTION OFFICER: Kelsey Blanco APRN.DETENTION OFFICER Performed by: GLADYS Indications and Patient Condition Indications for airway management: anesthesia Preoxygenated: yes anesthesia circuit Patient position: sniffing Method: asleep Cricoid Pressure: No Manual In-Line Stabilization: No Difficult Mask: No Final Airway Details Final airway type: endotracheal airway Final Endotracheal Airway: ETT Cuffed: yes Successful intubation technique: direct laryngoscopy Endotracheal tube insertion site: oral Blade: [place] Blade size: #4 ETT size (mm): 7.0 Measured from: lips Measurement (cm): 22 Placement verified by: chest auscultation and capnometry Cormack-Lehane Classification: grade I - full view of glottis Number of attempts at approach: 1 Failed airway: no Unrecognized esophageal intubation: no Airway not difficult SIGNATURE: Kelsey Blanco APRN.DETENTION OFFICER PATIENT NAME: Kendall Vasques DATE: March 24, 2023 TIME: 8:04 AM CSN: [id number] NoteHNO ID: [id number] Author: ?, ?, ? Service: ? Author Type: ? Type: Progress Notes Filed: 03/17/2023 13:36 Note Text: DATE OF SERVICE: 03/17/2023 PROBLEM: Kendall Vasques presents for pre-op teaching. PRE-OP DIAGNOSIS: Pelvic pain SCHEDULED SURGERY AND DATE: 03/24/23 EUA, TLH, b/l salpingectomy, EoE, [facility] PRIMARY SURGEON: Mary Lou Morrison DO NURSING PREOP ASSESSMENT: Fevers, chills, cough, or nasal congestion: No Vaginal itching, burning, discharge, or odor: No Pain with urination, frequency, urgency, cloudy or foul smelling urine: No If yes to any of the above then MD notified: Not Applicable ADVANCED CARE PLANNING: Does the patient have an advanced directive: No Does [facility] have a copy of the patient's advanced directive: No Was advanced directive given to the patient: No PATIENT LEARNING ASSESSMENT: Individual patient/family learning needs evaluated and addressed: Yes Cognitive ability: Alert and oriented Motivation to learn: Eager Factors affecting learning: None Physical limitations affecting learning: None Patient learns best by: Multiple Methods Method of instruction: Teach Back , Individual instruction Written instruction - handouts Verbal instruction Instructions provided to: Patient via telephone. Written material provided prior to education appointment. Family support: Unable to assess - Family not present PRE- AND POST-OPERATIVE TEACHING Pre-operative teaching and supplemental material provided and reviewed with patient: Your Surgical Guide Book Map Written pre-op and post-op instructions Antibacterial soap: given to patient prior to preop teaching appointment Pre-operative instructions provided and reviewed with patient/family: No eating, drinking, or smoking after midnight prior to surgery unless otherwise directed No alcohol the day before surgery Medications as prescribed by anesthesia, internal medicine, surgeon, or HEALTH NAVIGATOR Stop NSAIDs, Aspirin (ASA), vitamins, herbal supplements, herbal teas, and diet pills 7-10 days prior to surgery OK to take tylenol prn pain unless otherwise directed by physician Call surgery coordinators if any other questions about surgery date or pre-op appointments Bowel prep instructions: NPO after midnight Day of surgery instructions provided and reviewed with patient/family: Arrival time (call surgical coordinators on the office day prior to surgery for verification) No jewelry, body piercing, makeup, contacts, lotions, nail frisian on fingers, or anything in hair on arrival to surgery Wear low healed shoes and loose fitting clothing Leave all valuables at home or with a family member Directions to [facility] Parking/parking validation on the day prior to surgery Admission/check in (Report to Entrance A for surgery) Holding area Placement of IV Surgical positioning Family waiting area Surgical recovery room Post-operative instructions provided and reviewed with patient/family: SEE PATIENT INSTRUCTION SECTION FOR DETAILS. ACTIVITY - No heavy lifting (>5-10 lbs), no pushing/pulling, OK to climb stairs DRIVING - No driving for 1 week unless prior approval from MD, OK to ride in a car. DIET - Advance diet as tolerated and as ordered by MD, drink 8 glasses of water a day, eat a diet high in protein and fiber unless otherwise directed by MD. INCISION CARE - Keep incision clean and dry, sanjana to be removed 7-10 days after surgery, steristrips do not need to be removed by MD BATHING - OK to shower after surgery unless otherwise directed by MD, no tub baths. PAIN MEDICATION - IV pain medication after surgery, IV STRUCTURAL DRAFTSMAN if ordered by MD, discharged home with a prescription for PO pain medication, pain management after surgery, side effects of pain medication (including constipation, dizziness, drowsiness, and medication interactions). VAGINAL CARE - Pelvic rest x8 weeks unless otherwise directed by MD. DVT PROPHYLAXIS - Early ambulation, SCDs, injectable anticoagulants (heparin, lovenox, etc) RESPIRATORY - Incentive spirometer, coughing/deep breathing exercises, ambulation. SYMPTOMS TO NOTIFY MD - Fever, chills, nausea, vomiting, increased or severe pain, heavy vaginal bleeding, foul smelling vaginal drainage, pain or swelling in extremities. URGENT SYMPTOMS - Call 911 or go to ER if any shortness of breath, difficulty breathing, or chest pain. HOW TO CONTACT PHYSICIAN - Physician's office phone number given to patient, if after hours patient instructed to call centerless grinder operator and ask for computer information systems instructor cotton weigher operator resident. MEGHAN program offered to patient: No Additional teaching as indicated by patient/family learning needs. PATIENT LEARNING EVALUATION AND FOLLOW UP PLAN: Patient and/or family express understanding of upcoming surgery, pre-operative preparation, the operative process, and post-operative instructions. Follow up plan: Complete - No (more content not included)...[facility]01-29-2024 NoteHNO ID: [id number] Author: MARY LOU MORRISON, DO Service: ? Author Type: Physician Type: Progress Notes Filed: 03/17/2023 12:03 Note Text: [facility] [place] SECTION FOR MINIMALLY INVASIVE GYNECOLOGIC SURGERY OUTPATIENT VISIT DATE 03/16/2023 OUTPATIENT VISIT TYPE Follow-up visit PRIMARY CARE PHYSICIAN: WINSOME CUEVAS [address] [place] [address] REFERRING PHYSICIAN: * No referring provider recorded for this case * CHIEF COMPLAINT: No chief complaint on file. HISTORY OF PRESENT ILLNESS: Kendall Vasques is a pleasant 37 year old female who presents for pre-op/fuv. In clinic today, pt reports LLQ pain is getting worse since last visit 09/25. She had her MRI on 03/02/23. ====== CINDY 01/28/23: IMPRESSION: Ms. Vasques is a 37 year old female who presents with aub, dysmenorrhea, endometriosis. AUB - A: we discussed adenomyosis, etiologies, risk factors and management options. Patient has failed medical management. The pain is severe and significantly impacting her quality of life. She desires surgical management. We discussed proceeding with a total laparoscopic hysterectomy, bilateral salpingectomy and cystoscopy. We discussed the risks of the procedure including risks of bleeding, infection and injury to surrounding organ structures such as bowel, bladder and major vessels. Pelvic pain, endometriosis: We discussed at length what is known about the pathophysiology of endometriosis. EThe diagnosis can only be confirmed by surgery with tissue sample examined by pathology. Educated that endometriosis is often a chronic condition that may recur and often requires a local company intermodal truck driver treatment plan. Once endometriosis is identified, there are many effective therapies for endometriosis, but, unfortunately, there is no single therapy that is effective for all women with endometriosis-related pelvic pain. The first line therapy for women with endometriosis who are not trying to conceive is often hormonal suppression and approximately 70% of women experience improvement in their pain with hormonal suppression (i.e., progestins, oral contraceptives). Surgical therapy with excision and/or ablation of endometriosis provides a similar chance for pain improvement (~ 70%), but the risk of recurrent pain approaches 50% just 2 - 4 years after surgery. Given patient's bowel symptoms, constipation, and dyspareunia, ordered pelvic MRI for surgical planning. Will get records from OSH/operative and pathology report. We discussed proceeding with a total laparoscopic hysterectomy, bilateral salpingectomy, excision of endometriosis and cystoscopy. We discussed the risks of the procedure including risks of bleeding, infection and injury to surrounding organ structures such as bowel, bladder and major vessels. Rx'd norethindrone 5 mg daily, ordered pelvic MRI Surgical consent signed Written and verbal health teaching given to patient, patient verbalizes understanding and agrees with treatment plan. Mary Lou Morrison, DO ====== MRI pelvis 03/02/23: IMPRESSION: 1. Linear T2 hypointensity extends from the left ovary to the cervix and an adjacent loop of proximal sigmoid colon. This may be due to endometriosis or adhesions related to prior surgery. There is loss of the fat plane between the left ovary and adjacent proximal sigmoid colon, possibly due to tethering. 2. Postoperative changes from right oophorectomy and a section. 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 History Comments: Sexual Activity: Yes; Male Contraception: Pill Past Obstetrical History: OB History T0 L0 SAB0 IAB0 Ectopic0 Multiple0 Live Births1 Past Medical History: PAST MEDICAL HISTORY Diagnosis Date Abnormal Pap smear of cervix +HPV Anemia Asthma Breast cyst, left 2018 Chlamydia Depression/anxiety Herpes simplex virus (HSV) infection Hx of ovarian cyst Hx: UTI (urinary tract infection) Hypertension Hypoglycemia 5 years ago Infectious mononucleosis Infertility, female Insomnia in prior , currently 11/17/2022 PID (acute pelvic inflammatory disease) 2015 Placental abruption depression Recurrent UTI Renal calculi recurrent kidney stones Seizure disorder (HCC) psychogenic Sickle cell anemia (HCC) Syncope and collapse with pseudo-seizures Thyroid disease Past Surgical History: PAST SURGICAL HISTORY Procedure Laterality Date BREAST CYST ASPIRATION - ADDTL LESION 2019 Dr Corona-Arleth CERVIX UTERI CONIZA LP ELCTRO EXCI 2008 SECTION HX classical incision CT ABDOMEN 09/10/[address] [facility] [address] BRAIN 06/19/2005 [facility] DANDC, DIAG AND/OR THERAPEUTIC 11/27/2022 Suctio (more content not included)...[facility]01-18-2024 Note HNO ID: [id number] Author: KIMMY MIRZA APRN.DECK MECHANIC Service: ? Author Type: Nurse Practitioner Type: Progress Notes Filed: 03/05/2023 17:31 Note Text: [facility] [place] Department of Benign Gynecology [facility] PATIENT NAME: Kendall Vasques DATE: 03/05/2023 Patient Name and verified: Yes Patient Location: [place] This Virtual Visit was completed using My Chart Zoom platform. I have communicated my name and active licensure. The patient's identity and physical location were verified at the time of this visit. Either the patient or their legal administrative representative has been informed of the risks and benefits of -- and alternatives to -- treatment through a remote evaluation and consents to proceed with the evaluation remotely. Chief Complaint CC/REASON FOR VIRTUAL VISIT: Pelvic pain History of Present Illness: Kendall is a 37 year old who presents for a Distance Health visit to discuss pain. Period was last week - heavy. This pain started Thursday after her period was over. Feels like a bulge just under her Left ovary. Hurts to press on it. Hurts to lift anything This is a change from her normal Feels like it is worsening since her miscarriage. Stage 2 kidney failure. Tizanidine - 2 mg three times a day. Helps her sleep but doesn't feel like it helps much with this pain. In the past has used 4 mg Heating pad helps a lot. Changing position does help Pain goes down into pelvis and csection scar. Urinary - No symptoms GI - Regular, every other day. Has increased fiber. Stool is soft. 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 History Comments: Sexual Activity: Yes; Male Contraception: Pill Review of Systems: See HPI Past Medical History: PAST MEDICAL HISTORY Diagnosis Date - Abnormal Pap smear of cervix +HPV - Anemia - Asthma - Breast cyst, left 2019 - Chlamydia - Depression/anxiety - Herpes simplex virus (HSV) infection - Hx of ovarian cyst - Hx: UTI (urinary tract infection) - Hypertension - Hypoglycemia 5 years ago - Infectious mononucleosis - Infertility, female - Insomnia - in prior , currently 11/17/2022 - PID (acute pelvic inflammatory disease) 2014 - Placental abruption - depression - Recurrent UTI - Renal calculi recurrent kidney stones - Seizure disorder (HCC) psychogenic - Sickle cell anemia (HCC) - Syncope and collapse with pseudo-seizures - Thyroid disease Family History: Family History Problem Relation Age of Onset - Stroke Father - No Known Problems Sister - Hypertension Maternal Grandmother - Blood Clots Maternal Grandmother - other (Hypoglycemia) Maternal Grandfather - Heart Maternal Grandfather - Diabetes Maternal Grandfather - Breast Cancer Paternal Grandmother - Heart Attack Paternal Grandfather - other (epilepsy) Half-sister Past Surgical History: PAST SURGICAL HISTORY Procedure Laterality Date - BREAST CYST ASPIRATION - ADDTL LESION 2018 Dr Corona-Drifting - CERVIX UTERI CONIZA LP ELCTRO EXCI 2007 - SECTION HX classical incision - CT ABDOMEN 09/10/2004 [facility] - CT BRAIN 06/19/2005 [facility] - DANDC, DIAG AND/OR THERAPEUTIC 11/27/2022 Suction DANDC for missed AB - L'SCOPE DX W/WO BRUSHINGS/WASHINGS 03/17/2022 Dr Myers-pelvic pain-endometriosis ruled out - L'SCOPE DX W/WO BRUSHINGS/WASHINGS 03/12/2020 lysis of adhesions-Dr Myers - LITHOTRIPSY XTRCORP SHOCK WAVE 04/16/2006 Lithotripsy Right kidney - OVARY SURGERY HX 04/10/2013 Excision of right fallopian tube and ovary - PAST SURGICAL HISTORY OF 02/16/2003 right ear cartilage repair - TONSILLECTOMY AND ADENOIDECTOMY HX 12/17/2012 Social History: Social History Tobacco Use - Smoking status: Never - Smokeless tobacco: Never Vaping Use - Vaping Use: Never used Substance Use Topics - Alcohol use: No - Drug use: No Allergies: ALLERGIES Allergen Reactions - Shellfish Containin* Swelling - Adhesive Rash - Codeine Hives, Vomiting - Flagyl [Metronidazo* Other: See Comments SZ - Morphine Hives - Nsaids (Non-Steroid* Other: See Comments Stage 2 kidney dx - Topamax [Topiramate] GI Upset Allergies updated: Yes Medications: Current Outpatient Medications Medication Sig - ibuprofen (MOTRIN) 800 mg tablet Take 1 tablet by mouth every 8 hours as needed for pain. - iv contrast (will be provided with radiology test) MRI Female Pelvis Inject, intravenously, once for 1 dose. No IV access, insert saline lock prior to the beginning of sedation, infusion, injection of imaging exam. Discontinue saline (more content not included)...[facility]01-15-2024 NoteHNO ID: [id number] Author: RODRÍGUEZ TAPIA RT(Juliana) Service: ? Author Type: Technologist Type: Progress Notes Filed: 03/02/2023 14:20 Note Text: Radiology Service Progress Note DATE OF SERVICE: March 02, 2023 TIME: 2:20 PM PATIENT IDENTITY VERIFICATION COMPLETED USING TWO (2) STANDARD IDENTIFIERS: Name and Date of confirmed by patient verbally. FALL SCREENING: Has the patient had 2 falls in the last year or 1 fall with injury or currently using an Ambulatory Assistive Device (Walker, Cane, Wheelchair, Crutches, etc.)? No PATIENT GENDER DATA: Female. status: : No status: NO. PATIENT RELEVANT IMPLANT DATA REVIEWED: Yes ALLERGIES: Reviewed and unchanged CONTRAST ALLERGY: NO. EXAM: MRI - CONTRAST TYPE: GROUP II PERIPHERAL IV DATA: Ambulatory: A peripheral IV was started in the Left forearm with a Angio cath: 22 gauge. RADIOLOGY DEPARTMENT: MR; Exam(s) Completed: Body: Female Pelvis SIGNATURE: RT Corey(R) PATIENT NAME: Kendall Vasques DATE: March 02, 2023 TIME: 2:20 [facility]12-26-2023 History of Present illness Narrative* Irma Garvin LPN - 02/10/2023 10:30 AM EST New pt. Interested in surgical management for heavy menses, and pelvic pain.States she has a history of endometriosis. * Ann Lee MD - 02/10/2023 10:30 AM EST HPI Kendall Vasques is a 37 y.o. female who presents today for concerns including Menstrual Problem (New pt. Interested in surgical management for heavy menses.) Patient has had a complete work up for AUB and pelvic pain. Has an MRI pending as part of her work up. She comes in today for a second opinion. Has surgery scheduled for definitive management in [facility]. Reported pain has been unbearable. Has a history of endometriosis. On reviewing her chart, there is an ultrasound report from 12/17/2022 which reported: There is no free fluid visualized in the peritoneal cavity. Slide test negative - this could indicate significant adhesive disease. No other concerns reported at this time LMP: No LMP recorded. No results found for: PAPSMEAR OB HISTORY: OB History Para Term AB Living 2 1 0 1 1 SAB IAB Ectopic Molar Multiple Live Births 1 0 0 0 1 # Outcome Date GA Lbr John/2nd Weight Sex Delivery Anes PTL Lv 2 SAB 11/24/22 Comments: D&C and I pass procedure 1 01/05/21 24w0d 1 lb 3 oz (0.539 kg) F CS-Classical Spinal Y ND Comments: PTL 01/02/2021-transferred to [facility], placental abruption,Baby taken to NICU-Lived for 2 hours. Mom told baby from blood clot in lungs Complications: Abruptio Placenta HISTORY/ALLERGIES Allergies Allergen Reactions Codeine And Related hives Morphine Hives Shellfish Allergy Angioedema (swelling) Shrimp Extract Allergy Skin Test Hives and Swelling *Adhesive Tape Rash Baclofen Incontinence Codeine Hives and Nausea and Vomiting Dicyclomine Confusion Metronidazole Seizures Nsaids Topiramate Pt tolerated Topamax on 07/17 well during inpatient stay without any symptoms Tramadol Seizures Past Medical History: Diagnosis Date Acute allergic rhinitis Anxiety Asthma Chronic pain Epilepsy Essential hypertension, benign Fibromyalgia Hypoglycemia Hypoglycemia 09/19/2016 Kidney disease 2018 Kidney stones Migraine Nephrolithiasis ROSA (obstructive sleep apnea) PID (pelvic inflammatory disease) Restless leg syndrome Seizure Past Surgical History: Procedure Laterality Date DILATION AND CURETTAGE 11/27/2022 SECTION 01/05/2021 OTHER SURGICAL N/A 02/2020 OBGYN laproscopic unwound intestine. ABLATION NERVE RADIOFREQUENCY PULSED N/A 12/09/2019 [facility] nerve ablation to back L5-L11 VAGINAL SURGERY Bilateral 05/2017 Bilateral Labia Reduction COLONOSCOPY DIAGNOSTIC N/A 09/19/2016 Laterality: N/A; Surgeon: Jennifer Crow MD; Location: [facility] OR EGD DIAGNOSTIC N/A 09/19/2016 Laterality: N/A; Surgeon: Jennifer Crow MD; Location: [facility] OR SALPINGO-OOPHORECTOMY LAPAROSCOPIC Right 03/2013 HPV CYSTOURETHROSCOPY W/ URETEROSCOPY/PYELOSCOPY W/ LITHOTRIPSY INCL STENT INSERTION Right 2011 BREAST BIOPSY benign TONSILLECTOMY ADENOIDECTOMY Social History Tobacco Use Smoking status: Never Smokeless tobacco: Never Vaping Use Vaping Use: Never used Substance Use Topics Alcohol use: Yes Comment: occasionally Drug use: No Family History Problem Relation Age of Onset No known problems Mother Stroke Father Hypertension Father Lipid Disorder Father Depression Sister Cancer- Other Maternal Aunt cervical cancer Cervical Cancer Maternal Aunt Hypertension Maternal Grandmother Hypertension Maternal Grandfather Myocardial Infarction Maternal Grandfather Diabetes Maternal Grandfather Stroke Maternal Grandfather Breast Cancer Paternal Grandmother Current Outpatient Medications: acetaminophen 500 MG tablet, Take 2 tablets by mouth., Disp: , Rfl: albuterol 108 (90 Base) MCG/ACT Aero Soln inhaler, Inhale 1 puff every 4 hours as needed for Wheezing., Disp: 1 Inhaler, Rfl: 1 Diphenhydramine-APAP, sleep, (TYLENOL PM EXTRA STRENGTH PO), Take 500 mg by mouth every 4 hours as needed., Disp: , Rfl: ondansetron 4 MG Tab Dispersible tablet, Take by mouth., Disp: , Rfl: oxyCODONE-acetaminophen 5-325 MG per tablet, Take 2 tablets by mouth one time only for 1 dose., Disp: , Rfl: 27-1 MG tablet, Take 1 tablet by mouth daily., Disp: 90 tablet, Rfl: 3 Promethazine HCl 12.5 MG tablet, Take 1 tablet by mouth every 4 hours as needed for Nausea / Vomiting., Disp: 30 tablet, Rfl: 0 Sertraline 100 MG tablet, Take 1 tablet by mouth daily., Disp: 30 tablet, Rfl: 2 Tizanidine 2 MG tablet, Take 1 tablet by mouth 3 times daily., Disp: 90 tablet, Rfl: 1 traZODone 100 MG tablet, Take 1.5 tablets by mouth every evening at 6 PM., Disp: 45 tablet, Rfl: 2 LORazepam (Ativan) 0.5 MG tablet, Take 1 tablet by mouth 2 times daily as needed for Anxiety for upto 20 days., Disp: 14 tablet, Rfl: 0 norethindrone 5 MG tablet, Take 1 tablet by mouth daily. (Patient not taking: Reported on 02/10/2023), Disp: , Rfl: ROS Review of Systems Constitutional: Negative. HENT: Negative. Eyes: Negative. Respiratory: Negative. Cardiovascular: Negative. Gastrointestinal: Negative. Genitourinary: Positive for menstrual problem and pelvic pain. Musculoskeletal: Negative. Skin: Negative. Neurological: Negative. Psychiatric/Behavioral: Negative. All other systems reviewed and are negative. EXAM BP 122/78 (BP Location: Right arm, BP Position: Sitting) Pulse 97 Ht 5' 4 (1.626 m) Wt 160 lb (72.6 kg) BMI 27.46 kg/m Smoking Status Never Physical Exam Diagnosis/Plan: Kendall was seen today for menstrual problem. Diagnoses and all orders for this visit: Abnormal uterine bleeding (AUB) Pelvic pain in female After reviewing patient's chart and talking to her about her symptoms, I recommended that she stickto the plans made with [facility]. I offered interim treatment with the Mirena IUD if that had not been offered prior and patient declined sharing that it had already been offered her. I discussed the likelihood of adhesive disease given her history of endometriosis and thus encouraged that patient get her surgery done in a tertiary center. Answered all of patient's questions and she verbalized understanding Shared decision making; patient in agreement. Total time spent with this patient was approximately 30 minutes. Time spent: 30 (LVL3=20, LVL4=30, LVL5=40) On preparation for patient visit (reviewing previous chart, current medical records, previous history, exam, testing, procedures, and medications). Face to face encounter obtaining history from patient/family/caregiver, independent interpreting of results (tests, labs, procedures, imaging), and communicating and explaining results. Coordination of care, preparing and printing discharge instructions, and any educational material. Documenting clinical information in the electronic health record, reviewing OARRS as needed Ann Lee MD 02/10/2023 documented in this encounterNaval Hospital [id number] Instructions* Patient Instructions* Zain Morrisonn, - 01/28/2023 10:54 AM EST Images from the original note were not included. Please visit the following website for the [facility] surgery guide. [email or web address]/[place] [email or web address]-[email or web address]/surgery- guide MINIMALLY INVASIVE GYNECOLOGIC SURGERY (MIGS)/BENIGN GYNECOLOGY CONTACTS: Surgeons: Dr. Mary Lou Morrison Dr. Aylin Raya Dr. Elizabeth Meza Dr. Svitlana Shanks Dr. Andrés Phoenix Dr. Mallory Sanchez [place]: Dr. Tena Kuhn [phone] Dr. Jeffrey Mcdonnell [phone] Dr. Carlie Ventura [phone] Nurse Practitioners: Lacy Fernandez, CAR SWEEPER.DECK MECHANIC Radha Santiago CAR SWEEPER.DECK MECHANIC Starr Alfaro CAR SWEEPER.DECK MECHANIC Kimmy Mirza, CAR SWEEPER.DECK MECHANIC Dottie Donohue, CAR SWEEPER, DECK MECHANIC Surgery Scheduling Office: Call the day before surgery after 2pm for your surgery arrival time After hours phone number: or toll free Ask the centerless grinder operator to page the cotton weigher operator computer information systems instructor.' Business hours are Thursday - Thursday from 8:00am - 4:30pm. We are closed on weekends and major holidays. Surgery Locations: Main [place] [address] /[id number] [place], [place] [address] [facility] [address] [place], [place] [address] [facility] [address] [place], [place] [address] MINIMALLY INVASIVE HYSTERECTOMY POSTOPERATIVE INSTRUCTIONS ACTIVITY * No heavy lifting/pushing/pulling for 4-6 weeks. Do not lift anything more than 10 lbs (such as laundry, groceries, children, pets), vacuum, push heavy doors or grocery carts, etc, for 4-6 weeks. * You may climb stairs as tolerated. * Do not put anything in the vagina for at least 8 weeks after surgery unless otherwise instructed by your doctor (including tampons, douching, sexual intercourse, etc). * No driving for 1 week after surgery and not while taking narcotic pain medication. Drive defensively when you are ready. * Avoid sitting or lying in bed for more than 2 hours at a time while you are awake to reduce your risk of blood clots. * You may return to work when you are ready as long as you do not lift more than 20 pounds for 4-6 weeks. If you have a sedentary job or work environment safety inspector 1-2 weeks before returning to work is appropriate. You may return to work in 2-4 weeks if your job requires a lot of movement. Please contact your doctor if you need any return to work letters or medical leave paperwork to be completed. *You may resume exercise/running around 4-6 weeks postop WOUND CARE * If you had a laparoscopic or robotic hysterectomy, you will have small incisions on your abdomen.There will be dissolvable stitches under your skin that do not need to be removed. If you have a piece of gauze with a clear bandage over your belly button, please remove that the day after surgery when you shower. If you have steri-strips (paper tape) on the incisions, these may be removed in about 1-2 weeks. It is OK to remove them if they are falling off. If skin glue is present, leave in place for at least 2 weeks. * Shower daily after surgery. Clean your incision with mild antibacterial soap and water. Pat your incision dry with a clean towel. No tub baths or swimming pools for 6 weeks or until wound is completely healed. * No ointments or antibacterial creams are required for incisions. Do NOT use cleansing agents likealcohol or hydrogen peroxide. * Wash your hands frequently, especially before touching your incision or changing any dressings. PAIN MANAGEMENT * Take your oral pain medication as needed. * Alternate Tylenol and ibuprofen/Motrin (if you are eligible). Each of these medications can be taken every six hours. Try to stagger them so that you are taking something for pain every three hours(ex. Take Motrin at 12:00, Tylenol at 3:00, Motrin at 6:00, etc.) to maximize pain relief. You should be taking 600mg of ibuprofen every 6 hours. You should be taking 650mg of tylenol every 6 hours. You should take every 6 hours with staggering and alternating. For example. 9am - ibuprofen 12pm - tylenol 3pm - ibuprofen 6pm - tylenol 9pm - ibuprofen 12am - tylenol 3am - ibuprofen 6am - tylenol Studies show this is as effective as narcotics for pain control without the side effects. Dosages * The maximum dose of Tylenol is 3000 mg in 24 hours, the maximum dose of Motrin/ibuprofen is 2400mg in 24 hours * Some pain medications can cause constipation. We recommend a stool softener (i.e. Senna) while you take these medications. * You may also take milk of magnesia or Miralax for constipation as directed on the bottle. * There is a risk for addiction with narcotic pain medication, so take with caution and do not takemore than the recommended amount. * Please be sure to dispose of leftover pain medication after you have recovered. You may dispose of unused narcotic medications in the trash with an unpleasant substance such as coffee grounds or cat litter or you can turn them in to a designated law enforcement/pharmacy narcotic box. You can alsocheck FDA.gov to assess which medications can be safely flushed down the toilet. * There are locations to dispose of unused medications at three [facility] locations: [facility] pharmacy, [facility] pharmacy, and the Pharmacy at the [facility] for [facility] (inside the parking garage on the first floor). WHAT TO EXPECT AT HOME * Recovery from surgery is generally 2-4 weeks, but sometimes longer for more strenuous activity. It is normal to be very tired during this time. * It is normal to have some drainage or a small amount of vaginal bleeding after surgery that wouldrequire the use of a light pantiliner. This discharge may last up to 6 weeks. The bleeding and discharge should be light and should have no odor. * You may experience gas pain, abdominal swelling, or shoulder pain for 24-72 hours after surgery. This is from the carbon dioxide gas put into your abdomen to better visualize your organs. A warm shower, heating pad, and/or walking may help. WHEN TO CALL YOUR DOCTOR: * Fever (>100.4 F or 38.0 C) or chills. * Incision problems such as redness, warmth, swelling, or foul smelling drainage. * Severe nausea or persistent vomiting. * Bright red vaginal bleeding (soaking >1 pad/hour) or foul smelling vaginal drainage. * IT IS NORMAL TO HAVE A MINIMAL AMOUNT OF VAGINAL SPOTTING OR VAGINAL DISCHARGE FOR SEVERAL WEEKS * Severe pain not relieved with pain medication. * Pain and swelling in your legs, especially if it is only on one side. * Pain with urination, cloudy urine, or foul smelling urine. * Severe redness/irritation at sites where adhesive bandages were applied. * Or if you have any other problems or questions. FREQUENTLY ASKED QUESTIONS/CONCERNS: Constipation Constipation is common and it is normal to not have a bowel movement for up to one week after surgery. You should still be passing gas despite constipation and should be able to tolerate both liquid and solid food without nausea or vomiting. Concerning symptoms would be constipation without gas, with fever, or nausea/vomiting and inabilityto eat. Call your doctor if these symptoms occur. Over the counter stool softeners including Senna twice daily and Miralax up to twice daily can helpwith constipation. 1. Senna (1 capsule) two times a day 2. Miralax (polyethylene glycol) 17 g (1 measured capful or 1 packet) once a day. If you have not had a bowel movement 3 days after surgery, you may take the Miralax two times a day. If you have any discomfort because of the need to have a bowel movement, you may add milk of magnesia or magnesium citrate (available at your local pharmacy without a prescription) at any time. Do not take milk of magnesia or magnesium citrate if you have kidney failure. If you have loose or watery stools, stop taking the medications. Call your doctor s office if you have questions. Drainage from incisions Clear/pink drainage or a minimal amount of bleeding from incisions can be normal after laparoscopicsurgery. Concerning drainage that is persistent, thick/cloudy, or foul smelling can be an indication of infection and should prompt you to call your doctor. Post-operative pain Pain after surgery is a challenging part of the healing process. Pain may be present for weeks but should gradually get better. Increasing pain or pain that is unbearable warrants evaluation by your doctor or in the emergency department. By state law we cannot immediately provide narcotic pain medication over the phone. Stitches If 2 weeks have passed and you have a visible stitch at a laparoscopic incision site it is OK for you to cut it to remove it. CALL 911 OR GO TO THE EMERGENCY ROOM IF YOU HAVE: Any shortness of breath, difficulty breathing, orchest pain. IF YOU FEEL YOU NEED TO GO TO THE EMERGENCY DEPARTMENT POST OPERATIVELY, WE RECOMMEND THE MAIN CAMPUS EMERGENCY DEPARTMENT FOR CONTINUITY OF CARE AND THE BEST ACCESS TO ONE OF THE SURGEONS ON OUR TEAM. Address: [address] [place] [id number] documented in this encounter[facility]12[facility]23 History of Present illness Narrative* Mary Lou Morrison DO - 01/28/2023 9:00 AM EST Images from the original note were not included. [facility] [place] SECTION FOR MINIMALLY INVASIVE GYNECOLOGIC SURGERY OUTPATIENT VISIT DATE 01/28/2023 OUTPATIENT VISIT TYPE NEW PRIMARY CARE PHYSICIAN: WINSOME CUEVAS [address] [place] [address] REFERRING PHYSICIAN: Colleen Major Consultation requested by Colleen Jacob MD for an opinion regarding Kendall Vasques, and my final recommendations will be communicated back to the requesting physician by way of shared medical record or letter via US mail. CHIEF COMPLAINT: Pelvic pain HISTORY OF PRESENT ILLNESS: Kendall Vasques is a pleasant 37 year old female who presents for evaluation of pelvic pain, heavy menstrual bleeding, dysmenorrhea Bleeding is very heavy for the first three days, cramping and pain is severe S/p D&C/suction - 11/2022 -cramping and bleeding has worsened Bleeding is irregular Medical management: has tried control- had side effects and did not improve bleeding/cramping Here for surgical consultation for hysterectomy Pain is constant but worse with her cycles Has had 2 miscarriages and since the first one in 2020 her cycles have been exteremly heacy 01/05/2021 at 24 weeks delivered c/s 11/24/2022 6 weeks D&C Cycles are 28 days 4-5 days Heavy the first 3 days changes pads every hour, clots are nickel in size Cramping, pain, nausea, dizziness, pain with BM Also had a laparoscopic surgery 02/2022 done for pelvic pain Done at [facility] --- found endometriosis Does not have right tube and ovary 2013 removed NMPP: yes Was told she had endometriosis 2013 - [facility] Classical c/section - at 24 weeks Pain is so severe that she is requiring narcotics 01/13/2023 Imaging ultrasound IMPRESSION: Normal sonographic appearance of the uterus and left ovary. Satisfactory post right oophorectomy. RESULT: Uterus: -Size: 3.7 x 5.3 x 7.1 cm -Orientation: Retroverted -Endometrial echo complex: Evaluation of the endometrium was adequate. No endometrial abnormality. The endometrial echo complex measured 0.8 cm. -Cervix: Unremarkable. -Adenomyosis assessment: There are no sonographic findings of adenomyosis. -Fibroids: There are no fibroids. Right Ovary: Surgically absent. No sonographic evidence of right adnexal mass. Left Ovary: 2.1 x 2.4 x 3.3 cm - Normal sonographic appearance with physiologic follicles and a corpus luteum. Preserved arterial and venous blood flow. Free Fluid: No abnormal free fluid is present. 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 History Comments: Sexual Activity: Yes; Male Contraception: Pill Past Obstetrical History: OB History T0 L0 SAB0 IAB0 Ectopic0 Multiple0 Live Births1 Past Medical History: PAST MEDICAL HISTORY Diagnosis Date Abnormal Pap smear of cervix +HPV Anemia Asthma Breast cyst, left 2019 Chlamydia Depression/anxiety Herpes simplex virus (HSV) infection Hx of ovarian cyst Hx: UTI (urinary tract infection) Hypertension Hypoglycemia 5 years ago Infectious mononucleosis Infertility, female Insomnia PID (acute pelvic inflammatory disease) 2015 Placental abruption depression Recurrent UTI Renal calculi recurrent kidney stones Seizure disorder (HCC) psychogenic Sickle cell anemia (HCC) Syncope and collapse with pseudo-seizures Thyroid disease Past Surgical History: PAST SURGICAL HISTORY Procedure Laterality Date BREAST CYST ASPIRATION - ADDTL LESION 2019 Dr Corona-Drifting CERVIX UTERI CONIZA LP ELCTRO EXCI 2007 SECTION HX classical incision CT ABDOMEN 09/10/[address] [facility] [address] BRAIN 06/19/2005 [facility] D&C, DIAG AND/OR THERAPEUTIC 11/27/2022 Suction D&C for missed AB L'SCOPE DX W/WO BRUSHINGS/WASHINGS 03/17/2022 Dr Myers-pelvic pain-endometriosis ruled out L'SCOPE DX W/WO BRUSHINGS/WASHINGS 03/12/2020 lysis of adhesions-Dr Myers LITHOTRIPSY XTRCORP SHOCK WAVE 04/16/2006 Lithotripsy Right kidney OVARY SURGERY HX 04/10/2013 Excision of right fallopian tube and ovary PAST SURGICAL HISTORY OF 02/16/2003 right ear cartilage repair TONSILLECTOMY AND ADENOIDECTOMY HX 12/17/2012 Family History: FAMILY HISTORY Problem Relation Age of Onset Stroke Father No Known Problems Sister Hypertension Maternal Grandmother Blood Clots Maternal Grandmother other (Hypoglycemia) Maternal Grandfather Heart Maternal Grandfather Diabetes Maternal Grandfather Breast Cancer Paternal Grandmother Heart Attack Paternal Grandfather other (epilepsy) Half-sister Social History: Social History Tobacco Use Smoking status: Never Smokeless tobacco: Never Vaping Use Vaping Use: Never used Substance Use Topics Alcohol use: No Drug use: No Current Outpatient Medications Medication Sig sertraline (ZOLOFT) 100 mg tablet Take 100 mg by mouth once daily. albuterol HFA (PROVENTIL HFA, VENTOLIN HFA) 90 mcg/actuation inhaler Inhale 1 Puff as instructed every 4 hours as needed. promethazine (PHENERGAN) 25 mg tablet Take 25 mg by mouth every 6 hours as needed. traZODone (DESYREL) 100 mg tablet Take 100 mg by mouth. vit/iron fum/folic ac (-FOLIC ACID ORAL) Take by mouth. ondansetron orally disintegrating (ZOFRAN ODT) 4 mg disintegrating tablet Take 1 tablet by mouth every 6 hours as needed for nausea/vomiting. tiZANidine HCl (ZANAFLEX) 4 mg capsule Take 4 mg by mouth three times daily as needed for Muscle Spasm. diphenhydrAMINE (SLEEP AID, DIPHENHYDRAMINE,) 50 mg capsule Take 50 mg by mouth every 6 hours as needed. cyclobenzaprine (FLEXERIL) 5 mg tablet Take 1 tablet by mouth three times a day as needed. Norethin Yrn-Eth Estrad-FE (LOESTRIN FE 03/07) 1 mg-20 mcg (21)/75 mg (7) per tablet Take 1 tablet by mouth once daily. tamsulosin (FLOMAX) 0.4 mg Take 1 capsule by mouth daily at bedtime for 7 days. omeprazole (PRILOSEC) 20 mg capsule Take 1 capsule by mouth once daily for 28 days. diphenhydrAMINE (BENADRYL) 25 mg capsule Take 1 capsule by mouth every 6 hours as needed (with Compazine). gabapentin (NEURONTIN) 100 mg capsule Take 1 capsule by mouth once daily. levETIRAcetam (KEPPRA) 500 mg tablet Take 500 mg by mouth twice daily. citalopram hydrobromide (CELEXA) 10 mg tablet Take 10 mg by mouth once daily. ibuprofen (MOTRIN) 600 mg tablet Take 600 mg by mouth every 6 hours as needed. cyclobenzaprine (FLEXERIL) 10 mg tablet Take 10 mg by mouth daily at bedtime. levETIRAcetam (KEPPRA) 500 mg tablet Take 0.5 tablets by mouth twice daily. rizatriptan (MAXALT) 10 mg tablet Take 1 tablet by mouth as needed for Migraine Headache (see administration instructions) (at onset of headache. May repeat after 2 hours.). norethindrone-e.estradiol-iron (LO LOESTRIN FE) 1 mg-10 mcg(24) /10 mcg (2) ORAL Tab Take 1 tablet by mouth once daily. No current facility-administered medications for this visit. Allergies As of Date: 01/28/2023 Allergen Noted Reaction SHELLFISH CONTAINING PRODUCTS 04/17/2021 Swelling ADHESIVE 06/17/2011 Rash CODEINE 09/20/2009 Hives and Vomiting FLAGYL [METRONIDAZOLE] 09/27/2021 Other: See Comments MORPHINE 05/23/2022 Hives NSAIDS (NON-STEROIDAL ANTI-INFLAM*09/27/2021 Other: See Comments TOPAMAX [TOPIRAMATE] 09/27/2021 GI Upset Fully Assessed 01/28/2023 REVIEW OF SYSTEMS: POSITIVES IN BOLD Constitutional: Denies fever or chills GI: Denies abdominal pain, nausea, vomiting, bloody stools or diarrhea : Denies dysuria Psychiatric: Denies depression or anxiety PHYSICAL EXAMINATION: Vital Signs: 01/28/23 0818 BP: 107/70 Weight: 72.6 kg (160 lb) Height: 162.6 cm (5' 4) Body mass index is 27.46 kg/m . General appearance: Well appearing, alert, in no acute distress, well-hydrated, well nourished. Skin: Skin color, texture, turgor normal, no suspicious rashes or lesions Abdomen: Normal abdominal exam, Abdomen soft, non-tender. Bowel sounds normal. No masses, organomegaly see below IMPRESSION: Ms. Vasques is a 37 year old female who presents with aub, dysmenorrhea, endometriosis. AUB - A: we discussed adenomyosis, etiologies, risk factors and management options. Patient has failed medical management. The pain is severe and significantly impacting her quality of life. She desires surgical management. We discussed proceeding with a total laparoscopic hysterectomy, bilateral sa lpingectomy and cystoscopy. We discussed the risks of the procedure including risks of bleeding, infection and injury to surrounding organ structures such as bowel, bladder and major vessels. Pelvic pain, endometriosis: We discussed at length what is known about the pathophysiology of endometriosis. EThe diagnosis can only be confirmed by surgery with tissue sample examined by pathology. Educated that endometriosis is often a chronic condition that may recur and often requires a halfway treatment plan. Once endometriosis is identified, there are many effective therapies for endometriosis, but, unfortunately, there is no single therapy that is effective for all women with endometriosis-related pelvic pain. The first line therapy for women with endometriosis who are not trying to conceive is often hormonal suppression and approximately 70% of women experience improvement in their pain with hormonal suppression (i.e., progestins, oral contraceptives). Surgical therapy with excision and/or ablation of endometriosis provides a similar chance for pain improvement (~ 70%), but the risk of recurrent pain approaches 50% just 2 - 4 years after surgery. Given patient's bowel symptoms, constipation, and dyspareunia, ordered pelvic MRI for surgical planning. Will get records from OSH/operative and pathology report. We discussed proceeding with a total laparoscopic hysterectomy, bilateral salpingectomy, excision of endometriosis and cystoscopy. We discussed the risks of the proce dure including risks of bleeding, infection and injury to surrounding organ structures such as bowel, bladder and major vessels. Rx'd norethindrone 5 mg daily, ordered pelvic MRI Surgical consent signed Written and verbal health teaching given to patient, patient verbalizes understanding and agrees with treatment plan. Mary Lou Morrison DO documented in [facility]12[facility]23 NoteHNO ID: [id number] Author: Mary Lou Morrison DO Service: ? Author Type: Physician Type: Progress Notes Filed: 01/28/2023 10:55 AM Note Text: [facility] [place] SECTION FOR MINIMALLY INVASIVE GYNECOLOGIC SURGERY OUTPATIENT VISIT DATE 01/28/2023 OUTPATIENT VISIT TYPE NEW PRIMARY CARE PHYSICIAN: WINSOME CUEVAS [address] [place] [address] REFERRING PHYSICIAN: Colleen Major Consultation requested by Colleen Jacob MD for an opinion regarding Kendall Vasques, and my final recommendations will be communicated back to the requesting physician by way of shared medical record or letter via US mail. CHIEF COMPLAINT: Pelvic pain HISTORY OF PRESENT ILLNESS: Kendall Vasques is a pleasant 37 year old female who presents for evaluation of pelvic pain, heavy menstrual bleeding, dysmenorrhea Bleeding is very heavy for the first three days, cramping and pain is severe S/p DANDC/suction - 11/2022 -cramping and bleeding has worsened Bleeding is irregular Medical management: has tried control- had side effects and did not improve bleeding/cramping Here for surgical consultation for hysterectomy Pain is constant but worse with her cycles Has had 2 miscarriages and since the first one in 2020 her cycles have been exteremly heacy 01/05/2021 at 24 weeks delivered c/s 11/24/2022 6 weeks DANDC Cycles are 28 days 4-5 days Heavy the first 3 days changes pads every hour, clots are nickel in size Cramping, pain, nausea, dizziness, pain with BM Also had a laparoscopic surgery 02/2022 done for pelvic pain Done at [facility] --- found endometriosis Does not have right tube and ovary 2013 removed NMPP: yes Was told she had endometriosis 2013 - [facility] Classical c/section - at 24 weeks Pain is so severe that she is requiring narcotics 01/13/2023 Imaging ultrasound IMPRESSION: Normal sonographic appearance of the uterus and left ovary. Satisfactory post right oophorectomy. RESULT: Uterus: -Size: 3.7 x 5.3 x 7.1 cm -Orientation: Retroverted -Endometrial echo complex: Evaluation of the endometrium was adequate. No endometrial abnormality. The endometrial echo complex measured 0.8 cm. -Cervix: Unremarkable. -Adenomyosis assessment: There are no sonographic findings of adenomyosis. -Fibroids: There are no fibroids. Right Ovary: Surgically absent. No sonographic evidence of right adnexal mass. Left Ovary: 2.1 x 2.4 x 3.3 cm - Normal sonographic appearance with physiologic follicles and a corpus luteum. Preserved arterial and venous blood flow. Free Fluid: No abnormal free fluid is present. 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 History Comments: Sexual Activity: Yes; Male Contraception: Pill Past Obstetrical History: OB History T0 L0 SAB0 IAB0 Ectopic0 Multiple0 Live Births1 Past Medical History: PAST MEDICAL HISTORY Diagnosis Date Abnormal Pap smear of cervix +HPV Anemia Asthma Breast cyst, left 2019 Chlamydia Depression/anxiety Herpes simplex virus (HSV) infection Hx of ovarian cyst Hx: UTI (urinary tract infection) Hypertension Hypoglycemia 5 years ago Infectious mononucleosis Infertility, female Insomnia PID (acute pelvic inflammatory disease) 2015 Placental abruption depression Recurrent UTI Renal calculi recurrent kidney stones Seizure disorder (HCC) psychogenic Sickle cell anemia (HCC) Syncope and collapse with pseudo-seizures Thyroid disease Past Surgical History: PAST SURGICAL HISTORY Procedure Laterality Date BREAST CYST ASPIRATION - ADDTL LESION 2019 Dr Corona-Drifting CERVIX UTERI CONIZA LP ELCTRO EXCI 2008 SECTION HX classical incision CT ABDOMEN 09/10/[address] [facility] [address] BRAIN 06/19/2005 [facility] DANDC, DIAG AND/OR THERAPEUTIC 11/27/2022 Suction DANDC for missed AB L'SCOPE DX W/WO BRUSHINGS/WASHINGS 03/17/2022 Dr Myers-pelvic pain-endometriosis ruled out L'SCOPE DX W/WO BRUSHINGS/WASHINGS 03/12/2020 lysis of adhesions-Dr Myers LITHOTRIPSY XTRCORP SHOCK WAVE 04/16/2006 Lithotripsy Right kidney OVARY SURGERY HX 04/10/2013 Excision of right fallopian tube and ovary PAST SURGICAL HISTORY OF 02/16/2003 right ear cartilage repair TONSILLECTOMY AND ADENOIDECTOMY HX 12/17/2012 Family History: FAMILY HISTORY Problem Relation Age of Onset Stroke Father No Known Problems Sister Hypertension Maternal Grandmother Blood Clots Maternal Grandmother other (Hypoglycemia) Maternal Grandfather Heart Maternal Grandfather Diabetes Maternal Grandfather Breast Cancer Paternal Grandmother Heart Attack Paternal Grandfather other (e (more content not included)...[facility]11-29-2023 Miscellaneous Notes* Telephone Encounter - Padma Franklin RN - 01/14/2023 9:40 AM EST Patient returned phone call. Notified results and providers instructions. She did take control briefly after MAB but did not like how it made her feel and is not interested in trying any othersat this time. Following up with PCP and [facility]. Is not desiring anything further from us at this time, but did want to keep her appointment in case something came up. She assured she would cancel it next week if she did not need it. Padma Franklin RN * Telephone Encounter - Cassy Meneses RN - 01/14/2023 9:13 AM EST Left message for patient to call office. Cassy Highman RN * Telephone Encounter - Collene Major MD - 01/14/2023 7:50 AM EST Please notify patient that this ultrasound is normal. Previous Cyst has resolved. I reviewed imagesmyself- agree previous cyst resolved- now physiologic small corpus luteal cyst (1.8x2.2cm) nothing to do for that as it is normal. As far as the pain- She should keep her appt with [facility] in February asscheduled- hopefully she is on the waitlist for a cancellation for sooner appt. Not sure what else I can do at this point. She does not need to keep appt with me in January unless she has other concerns. I am sorry she ishaving so much pain. Is she taking the control? May want to follow up with PCP just to make sure it is not something else like Bowel related. * Telephone Encounter - Noe Francisco RN - 01/13/2023 4:33 PM EST FYI as of now no sooner visit available with any provider either. Noe Francisco RN documented in this encounter[facility]11-28-2023 History of Present illness Narrative* Olga Lidia Ivan RDMS - 01/13/2023 1:00 PM EST Radiology Service Progress Note PATIENT NAME: Kendall Vasques DATE OF SERVICE: January 13, 2023 TIME: 1:58 PM PATIENT IDENTITY VERIFICATION COMPLETED USING TWO (2) IDENTIFIERS: Name and Date of confirmedby patient verbally. FALL SCREENING: Has the patient had 2 falls in the last year or 1 fall with injury or currently using an Ambulatory Assistive Device (Walker, Cane, Wheelchair, Crutches, etc.)? No PATIENT GENDER DATA: Female. status: : No status: NO. PATIENT RELEVANT IMPLANT DATA REVIEWED: Not Applicable RADIOLOGY DEPARTMENT: Ultrasound PERIPHERAL IV DATA: Not applicable SIGNED BY: Olga Lidia Ivan RDMS RVT January 13, 2023 1:58 PM documented in this encounterBucyrus [facility]11-28-2023 NoteHNO ID: [id number] Author: Olga Lidia Ivan RDMS Service: ? Author Type: Inventory Associate And Driver Type: Progress Notes Filed: 01/13/2023 1:58 PM Note Text: Radiology Service Progress Note PATIENT NAME: Kendall Vasques DATE OF SERVICE: January 13, 2023 TIME: 1:58 PM PATIENT IDENTITY VERIFICATION COMPLETED USING TWO (2) IDENTIFIERS: Name and Date of confirmed by patient verbally. FALL SCREENING: Has the patient had 2 falls in the last year or 1 fall with injury or currently using an Ambulatory Assistive Device (Walker, Cane, Wheelchair, Crutches, etc.)? No PATIENT GENDER DATA: Female. status: : No status: NO. PATIENT RELEVANT IMPLANT DATA REVIEWED: Not Applicable RADIOLOGY DEPARTMENT: Ultrasound PERIPHERAL IV DATA: Not applicable SIGNED BY: Olga Lidia Ivan RDMS T January 13, 2023 1:58 PMCFort Hamilton Hospital11-28-2023 Miscellaneous Notes* Telephone Encounter - Noe Francisco RN - 01/13/2023 8:47 AM EST Attempted to call u/s extension, but no answer. Added to appt notes that it is okay to proceed withu/s today. Noe Francisco RN * Telephone Encounter - Colleen Major MD - 01/12/2023 4:33 PM EST It's fine- if pain getting worse she can have it done. * Telephone Encounter - Karolyn Vidal RN - 01/12/2023 2:34 PM EST Patient had called in asking if there were any US appointments sooner than 01/20/2023 that she was currently scheduled for . Patient states she is having increasing pelvic pain. I did find one for tomorrow so I rescheduled her. US now calling me questioning if US is to be done since patient had one4 weeks ago on 12/17 and they pulled the order originally from a 12/09 order. . Please advise documented in this encounterBu[facility]11-02-2023 NoteHNO ID: [id number] Author: Colleen Major MD Service: ? Author Type: Physician Type: Progress Notes Filed: 12/18/2022 1:06 PM Note Text: Pre Procedure Assessment: Kendall Vasques is a 37 year old here for an HARSHA procedure. Patient's last menstrual period was Patient's last menstrual period was 10/02/2022 (approximate). (approximate). Reason for procedure: Incomplete /Retained products Anxiolytic Checklist Has ride home? Yes-MomJess Current use of prescribed or non-prescribed opioids or benzos: Yes Medications: Patient self-administered and Provided by office:Toradol 30 mg IM given at 1113 (See MAR) Patient self administered Xanax 0.5 mg PO, Percocet 5-325 mg 2 tabs PO at 1115. Blood Type: A+ Hemoglobin: Hemoglobin Date Value Ref Range Status 12/03/2022 12.8 11.5 - 15.5 g/dL Final Rhophylac Administered:No Procedure end time: 1210 Post Procedure Assessment: Time of first post-procedure assessment: 1216 Vitals: BP 118/68 HR 88 SpO2 99 RR 12 Bleeding:Light Pain ratin Time of second post-procedure assessment: 1231 Vitals: BP 110/70 HR 76 SpO2 100 RR 14 Bleeding:Light Pain Ratin Mallory Fontaine RN UNIVERSAL PROTOCOL / SAFETY CHECKLIST Procedure to be Performed: IPAS Sign In: A Moment of CARE was completed. Personnel directly involved with the procedure wore the appropriate PPE (Personal Protective Equipment). Patient/Surrogate Stated/Verified: PATIENT VERIFIED(optional for EMERGENT procedures): Patient name, Date of , Relevant allergies, and The intended procedure Time Out Communication: Intended patient and procedure match the source documents. Consent documented and matches the intended procedure. Sign Out: SIGN OUT (optional for EMERGENT procedures): All specimen containers correctly labeled. Colleen Zavala MD Procedure note: Speculum was placed in the vagina. After prepping the cervix with betadine paracervical block was performed using 10cc of 1% lidocaine with 1:100,000 epi. Using sterile technique, the Manual Vacuum Aspiration device with size 6 cannula was inserted into the uterus and contents were evacuated. Post-procedure vital signs were obtained and stable Patient tolerated procedure well. Had Inventory Associate And Driver Mallory Butts in room performing ultrasound during procedure to ensure all POC were removed - appeared all tissue removed- retroverted. Myometrium is heterogeneous appearing. PLAN: Patient was advised to observe for signs and symptoms of infection including but not limited to fever, malodorous vaginal discharge and/or pain. Bleeding expectations were reviewed. Follow up: as needed [facility]Fort [facility]10-31-2023 Miscellaneous Notes* Telephone Encounter - Karolyn Vidal RN - 12/16/2022 3:08 PM EDT I scheduled patient for tomorrow. Patient aware to go to ED if increasing pain, development of fever or PRN * Telephone Encounter - Colleen Major MD - 12/16/2022 2:45 PM EDT Please see if LM can scan her tomorrow or today - if her pain is still that severe. I had LM scan her with me the other day and the cyst was still there. That is the only thing I can think that is the source of her pain. The ER does not Document cyst on their report- I can't see images from here. * Telephone Encounter - Karolyn Vidal RN - 12/16/2022 2:05 PM EDT I called patient. Bleeding has slowed down immensely. Pain is still sharp and on left side. She rates it is a 9 out of 10 intermittently and is the same as it has been at ER visit. Trying not to takepain medication-Percocet but it does help when she takes it. Taking Tylenol 500 q6 hours. Using a heating pad with relief. Denies any foul order. Having chills and nausea. Denies any fever. Denies dysuria. Patient wants to consider hysterectomy in future due to endometriosis. Has follow up appt on . This doesn't feel right to me but noone can find anything I advised patient to go to ED if pain increases, the development of a fever or PRN problems. Dr Zavala out of the office this afternoon. Please review in her absence * Telephone Encounter - Colleen Major MD - 12/16/2022 1:17 PM EDT Please call patient- I reviewed the ER notes- Her HCG is negative (which is c/w that there are no retained POC) and the ultrasound shows that the left cyst has resolved. The Endometrium is normal- 7mm. All of this is very reassuring. It's possible she had some increased pain if the cyst had ruptured. I hope she is feeling better today Colleen Jacob MD documented in this encounterBucyrus [facility]10-24-2023 NoteHNO ID: [id number] Author: Colleen Major MD Service: ? 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 Kendall Vasques is a 37 year old female who presents for follow-up stating status post Cytotec for possible retained products. Patient states that the Cytotec on and on Thursday past some clots along with tissue. Patient reports no further bleeding. Patient reports no fevers. Patient states she is in the left lower quadrant from the ovarian cyst pain radiates to her back. Getting worse rates that sometimes he does not denies any nausea or vomiting. Patient states she has used Percocet on occasion but does not want to mask the pain patient offers no other concerns pain. Has started the oral contraceptive pills. Does not desire is aware of anora testing results of normal male fetus. 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 History Comments: Sexual Activity: Yes; Male Contraception: Pill PAST MEDICAL HISTORY Diagnosis Date Abnormal Pap smear of cervix +HPV Anemia Asthma Breast cyst, left 2019 Chlamydia Depression/anxiety Herpes simplex virus (HSV) infection Hx of ovarian cyst Hx: UTI (urinary tract infection) Hypertension Hypoglycemia 5 years ago Infectious mononucleosis Infertility, female Insomnia PID (acute pelvic inflammatory disease) 2015 Placental abruption depression Recurrent UTI Renal calculi recurrent kidney stones Seizure disorder (HCC) psychogenic Sickle cell anemia (HCC) Syncope and collapse with pseudo-seizures Thyroid disease PAST SURGICAL HISTORY Procedure Laterality Date BREAST CYST ASPIRATION - ADDTL LESION 2018 Dr Corona-Drifting CERVIX UTERI CONIZA LP ELCTRO EXCI 2008 SECTION HX classical incision CT ABDOMEN 09/10/[address] [facility] [address] BRAIN 06/19/2005 [facility] DANDC, DIAG AND/OR THERAPEUTIC 11/27/2022 Suction DANDC for missed AB L'SCOPE DX W/WO BRUSHINGS/WASHINGS 03/17/2022 Dr Myers-pelvic pain-endometriosis ruled out L'SCOPE DX W/WO BRUSHINGS/WASHINGS 03/12/2020 lysis of adhesions-Dr Myers LITHOTRIPSY XTRCORP SHOCK WAVE 04/16/2006 Lithotripsy Right kidney OVARY SURGERY HX 04/10/2013 Excision of right fallopian tube and ovary PAST SURGICAL HISTORY OF 02/16/2003 right ear cartilage repair TONSILLECTOMY AND ADENOIDECTOMY HX 12/17/2012 FAMILY HISTORY Problem Relation Age of Onset Stroke Father No Known Problems Sister Hypertension Maternal Grandmother Blood Clots Maternal Grandmother other (Hypoglycemia) Maternal Grandfather Heart Maternal Grandfather Diabetes Maternal Grandfather Breast Cancer Paternal Grandmother Heart Attack Paternal Grandfather other (epilepsy) Half-sister Social History Tobacco Use Smoking status: Never Smokeless tobacco: Never Vaping Use Vaping Use: Never used Substance Use Topics Alcohol use: No Drug use: No Current Outpatient Medications Medication Sig Norethin Yrn-Eth Estrad-FE (LOESTRIN FE 03/07) 1 mg-20 mcg (21)/75 mg (7) per tablet Take 1 tablet by mouth once daily. sertraline (ZOLOFT) 100 mg tablet Take 100 mg by mouth once daily. albuterol HFA (PROVENTIL HFA, VENTOLIN HFA) 90 mcg/actuation inhaler Inhale 1 Puff as instructed every 4 hours as needed. promethazine (PHENERGAN) 25 mg tablet Take 25 mg by mouth every 6 hours as needed. traZODone (DESYREL) 100 mg tablet Take 100 mg by mouth. vit/iron fum/folic ac (-FOLIC ACID ORAL) Take by mouth. ondansetron orally disintegrating (ZOFRAN ODT) 4 mg disintegrating tablet Take 1 tablet by mouth every 6 hours as needed for nausea/vomiting. tamsulosin (FLOMAX) 0.4 mg Take 1 capsule by mouth daily at bedtime for 7 days. omeprazole (PRILOSEC) 20 mg capsule Take 1 capsule by mouth once daily for 28 days. diphenhydrAMINE (BENADRYL) 25 mg capsule Take 1 capsule by mouth every 6 hours as needed (with Compazine). gabapentin (NEURONTIN) 100 mg capsule Take 1 capsule by mouth once daily. tiZANidine HCl (ZANAFLEX) 4 mg capsule Take 4 mg by mouth three times daily as needed for Muscle Spasm. levETIRAcetam (KEPPRA) 500 mg tablet Take 500 mg by mouth twice daily. citalopram hydrobromide (CELEXA) 10 mg tablet Take 10 mg by mouth once daily. ibuprofen (MOTRIN) 600 mg tablet Take 600 mg by mouth every 6 hours as needed. cyclobenzaprine (FLEXERIL) 10 mg tablet Take 10 mg by mouth daily at bedtime. diphenhydrAMINE (SLEEP AID, DIPHENHYDRAMINE,) 50 mg capsule Take 50 mg by mouth every 6 hours as needed. levETIRAcetam (KEPPRA) 500 mg tablet Take 0.5 tablets by mouth twice daily. rizatriptan (MAXALT) 10 mg tablet Take 1 tablet by dorothy (more content not included)...[facility]10-[facility] Miscellaneous Notes* Telephone Encounter - Colleen Major MD - 12/03/2022 12:04 PM EDT Spoke to patient today- she had appointment. She reports last abnormal pap was at time of leep in 2009. After that all pap and HPV tests have been normal. Pt reports last pap and HPV test was 5 yrs and both normal. Based on this pt will just need repeat pap and hpv in one year. Pt is aware of this. * Telephone Encounter - Noe Francisco RN - 12/03/2022 11:21 AM EDT Left message for patient to call office. See below note. [facility] [place] and it was normal pap, negative HPV. Please verify if this is the last pap patient had and that she didn't have have any more recent pap or abnormalities? Noe Francisco RN * Telephone Encounter - Noe Francisco RN - 12/03/2022 11:21 AM EDT ----- Message from Colleen Zavala MD sent at 12/02/2022 4:46 PM EDT ----- Recently had Suction D&C for missed ab. See how she is feeling please- still waiting for anora testing. Pap is normal- but HPV positive for other HPV- can we get her other PAP and HPV records? Please call patient- if up to date with pap and hpv and no history of abnormal then she will not need colposcopy but if recently abnormal will need colposcopy. Will place order for colposcopy just in case. I see in her h/o she does have h/o LEEP but many years ago. documented in this encounterBu[facility]rus [facility]10-18-2023 NoteHNO ID: [id number] Author: Colleen Major MD Service: ? 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 Kendall Vasques is a 37 year old female who presents for follow-up after suction DANDC performed 1 week ago. Patient states approximately 3 days ago started having heavier bleeding where she could saturate through a pad in approximately 2 hours. She is has noticed some tissue at times. She denies any fevers. She also states that she is having some left lower quadrant pain. Denies any dysuria, body aches or chills. History of a 4 cm simple ovarian cyst on the left. Patient denies any chest pain, shortness of breath or dizziness. 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 History Comments: Sexual Activity: Yes; Male Contraception: Pill PAST MEDICAL HISTORY Diagnosis Date Abnormal Pap smear of cervix +HPV Anemia Asthma Breast cyst, left 2018 Chlamydia Depression/anxiety Herpes simplex virus (HSV) infection Hx of ovarian cyst Hx: UTI (urinary tract infection) Hypertension Hypoglycemia 5 years ago Infectious mononucleosis Infertility, female Insomnia PID (acute pelvic inflammatory disease) 2015 Placental abruption depression Recurrent UTI Renal calculi recurrent kidney stones Seizure disorder (HCC) psychogenic Sickle cell anemia (HCC) Syncope and collapse with pseudo-seizures Thyroid disease PAST SURGICAL HISTORY Procedure Laterality Date BREAST CYST ASPIRATION - ADDTL LESION 2018 Dr Corona-[place] CERVIX UTERI CONIZA LP ELCTRO EXCI 2008 SECTION HX classical incision CT ABDOMEN 09/10/[address] [facility] [address] BRAIN 06/19/2005 [facility] DANDC, DIAG AND/OR THERAPEUTIC 11/27/2022 Suction DANDC for missed AB L'SCOPE DX W/WO BRUSHINGS/WASHINGS 03/17/2022 Dr Myers-pelvic pain-endometriosis ruled out L'SCOPE DX W/WO BRUSHINGS/WASHINGS 03/12/2020 lysis of adhesions-Dr Myers LITHOTRIPSY XTRCORP SHOCK WAVE 04/16/2006 Lithotripsy Right kidney OVARY SURGERY HX 04/10/2013 Excision of right fallopian tube and ovary PAST SURGICAL HISTORY OF 02/16/2003 right ear cartilage repair TONSILLECTOMY AND ADENOIDECTOMY HX 12/17/2012 FAMILY HISTORY Problem Relation Age of Onset Stroke Father No Known Problems Sister Hypertension Maternal Grandmother Blood Clots Maternal Grandmother other (Hypoglycemia) Maternal Grandfather Heart Maternal Grandfather Diabetes Maternal Grandfather Breast Cancer Paternal Grandmother Heart Attack Paternal Grandfather other (epilepsy) Half-sister Social History Tobacco Use Smoking status: Never Smokeless tobacco: Never Vaping Use Vaping Use: Never used Substance Use Topics Alcohol use: No Drug use: No Current Outpatient Medications Medication Sig sertraline (ZOLOFT) 100 mg tablet Take 100 mg by mouth once daily. albuterol HFA (PROVENTIL HFA, VENTOLIN HFA) 90 mcg/actuation inhaler Inhale 1 Puff as instructed every 4 hours as needed. promethazine (PHENERGAN) 25 mg tablet Take 25 mg by mouth every 6 hours as needed. traZODone (DESYREL) 100 mg tablet Take 100 mg by mouth. vit/iron fum/folic ac (-FOLIC ACID ORAL) Take by mouth. ondansetron orally disintegrating (ZOFRAN ODT) 4 mg disintegrating tablet Take 1 tablet by mouth every 6 hours as needed for nausea/vomiting. tamsulosin (FLOMAX) 0.4 mg Take 1 capsule by mouth daily at bedtime for 7 days. omeprazole (PRILOSEC) 20 mg capsule Take 1 capsule by mouth once daily for 28 days. diphenhydrAMINE (BENADRYL) 25 mg capsule Take 1 capsule by mouth every 6 hours as needed (with Compazine). gabapentin (NEURONTIN) 100 mg capsule Take 1 capsule by mouth once daily. tiZANidine HCl (ZANAFLEX) 4 mg capsule Take 4 mg by mouth three times daily as needed for Muscle Spasm. levETIRAcetam (KEPPRA) 500 mg tablet Take 500 mg by mouth twice daily. citalopram hydrobromide (CELEXA) 10 mg tablet Take 10 mg by mouth once daily. ibuprofen (MOTRIN) 600 mg tablet Take 600 mg by mouth every 6 hours as needed. oxyCODONE-acetaminophen (PERCOCET) 5-325 mg tablet Take 1 tablet by mouth every 4 hours as needed. traMADol (ULTRAM) 50 mg tablet Take 50 mg by mouth every 6 hours as needed. HYDROCODONE/ACETAMINOPHEN (NORCO ORAL) Take by mouth. cyclobenzaprine (FLEXERIL) 10 mg tablet Take 10 mg by mouth daily at bedtime. diphenhydrAMINE (SLEEP AID, DIPHENHYDRAMINE,) 50 mg capsule Take 50 mg by mouth every 6 hours as needed. levETIRAcetam (KEPPRA) 500 mg tablet Take 0.5 tablets by mouth twice daily. rizatriptan (MAXALT) 10 mg tablet Take 1 tablet by mouth as needed for Migraine Headache (see administration instructions) (a (more content not included)...[facility]10-18-2023 History of Present illness Narrative* Colleen Major MD - 12/03/2022 11:[address] 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 Kendall Vasques is a 37 year old female who presents for follow-up after suction D&C performed 1 week ago. Patient states approximately 3 days ago started having heavier bleeding where she could saturate through a pad in approximately 2 hours. She is has noticed some tissue at times. She denies any fevers. She also states that she is having some left lower quadrant pain. Denies any dysuria, body aches or chills. History of a 4 cm simple ovarian cyst on the left. Patient denies any chest pain, shortness of breath or dizziness. 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 History Comments: Sexual Activity: Yes; Male Contraception: Pill PAST MEDICAL HISTORY Diagnosis Date Abnormal Pap smear of cervix +HPV Anemia Asthma Breast cyst, left 2018 Chlamydia Depression/anxiety Herpes simplex virus (HSV) infection Hx of ovarian cyst Hx: UTI (urinary tract infection) Hypertension Hypoglycemia 5 years ago Infectious mononucleosis Infertility, female Insomnia PID (acute pelvic inflammatory disease) 2015 Placental abruption depression Recurrent UTI Renal calculi recurrent kidney stones Seizure disorder (HCC) psychogenic Sickle cell anemia (HCC) Syncope and collapse with pseudo-seizures Thyroid disease PAST SURGICAL HISTORY Procedure Laterality Date BREAST CYST ASPIRATION - ADDTL LESION 2019 Dr Corona-[place] CERVIX UTERI CONIZA LP ELCTRO EXCI 2008 SECTION HX classical incision CT ABDOMEN 09/10/[address] [facility] [address] BRAIN 06/19/2005 [facility] D&C, DIAG AND/OR THERAPEUTIC 11/27/2022 Suction D&C for missed AB L'SCOPE DX W/WO BRUSHINGS/WASHINGS 03/17/2022 Dr Myers-pelvic pain-endometriosis ruled out L'SCOPE DX W/WO BRUSHINGS/WASHINGS 03/12/2020 lysis of adhesions-Dr Myers LITHOTRIPSY XTRCORP SHOCK WAVE 04/16/2006 Lithotripsy Right kidney OVARY SURGERY HX 04/10/2013 Excision of right fallopian tube and ovary PAST SURGICAL HISTORY OF 02/16/2003 right ear cartilage repair TONSILLECTOMY AND ADENOIDECTOMY HX 12/17/2012 FAMILY HISTORY Problem Relation Age of Onset Stroke Father No Known Problems Sister Hypertension Maternal Grandmother Blood Clots Maternal Grandmother other (Hypoglycemia) Maternal Grandfather Heart Maternal Grandfather Diabetes Maternal Grandfather Breast Cancer Paternal Grandmother Heart Attack Paternal Grandfather other (epilepsy) Half-sister Social History Tobacco Use Smoking status: Never Smokeless tobacco: Never Vaping Use Vaping Use: Never used Substance Use Topics Alcohol use: No Drug use: No Current Outpatient Medications Medication Sig sertraline (ZOLOFT) 100 mg tablet Take 100 mg by mouth once daily. albuterol HFA (PROVENTIL HFA, VENTOLIN HFA) 90 mcg/actuation inhaler Inhale 1 Puff as instructed every 4 hours as needed. promethazine (PHENERGAN) 25 mg tablet Take 25 mg by mouth every 6 hours as needed. traZODone (DESYREL) 100 mg tablet Take 100 mg by mouth. vit/iron fum/folic ac (-FOLIC ACID ORAL) Take by mouth. ondansetron orally disintegrating (ZOFRAN ODT) 4 mg disintegrating tablet Take 1 tablet by mouth every 6 hours as needed for nausea/vomiting. tamsulosin (FLOMAX) 0.4 mg Take 1 capsule by mouth daily at bedtime for 7 days. omeprazole (PRILOSEC) 20 mg capsule Take 1 capsule by mouth once daily for 28 days. diphenhydrAMINE (BENADRYL) 25 mg capsule Take 1 capsule by mouth every 6 hours as needed (with Compazine). gabapentin (NEURONTIN) 100 mg capsule Take 1 capsule by mouth once daily. tiZANidine HCl (ZANAFLEX) 4 mg capsule Take 4 mg by mouth three times daily as needed for Muscle Spasm. levETIRAcetam (KEPPRA) 500 mg tablet Take 500 mg by mouth twice daily. citalopram hydrobromide (CELEXA) 10 mg tablet Take 10 mg by mouth once daily. ibuprofen (MOTRIN) 600 mg tablet Take 600 mg by mouth every 6 hours as needed. oxyCODONE-acetaminophen (PERCOCET) 5-325 mg tablet Take 1 tablet by mouth every 4 hours as needed. traMADol (ULTRAM) 50 mg tablet Take 50 mg by mouth every 6 hours as needed. HYDROCODONE/ACETAMINOPHEN (NORCO ORAL) Take by mouth. cyclobenzaprine (FLEXERIL) 10 mg tablet Take 10 mg by mouth daily at bedtime. diphenhydrAMINE (SLEEP AID, DIPHENHYDRAMINE,) 50 mg capsule Take 50 mg by mouth every 6 hours as needed. levETIRAcetam (KEPPRA) 500 mg tablet Take 0.5 tablets by mouth twice daily. rizatriptan (MAXALT) 10 mg tablet Take 1 tablet by mouth as needed for Migraine Headache (see administration instructions) (at onset of headache. May repeat after 2 hours.). norethindrone-e.estradiol-iron (LO LOESTRIN FE) 1 mg-10 mcg(24) /10 mcg (2) ORAL Tab Take 1 tablet by mouth once daily. No current facility-administered medications for this visit. Allergies As of Date: 12/03/2022 Allergen Noted Reaction SHELLFISH CONTAINING PRODUCTS 04/17/2021 Swelling ADHESIVE 06/17/2011 Rash CODEINE 09/20/2009 Hives and Vomiting FLAGYL [METRONIDAZOLE] 09/27/2021 Other: See Comments MORPHINE 05/23/2022 Hives NSAIDS (NON-STEROIDAL ANTI-INFLAM*09/27/2021 Other: See Comments TOPAMAX [TOPIRAMATE] 09/27/2021 GI Upset Fully Assessed 11/24/2022 REVIEW OF SYSTEMS Abdomen: see HPI Bladder: no dysuria.. Expanded ROS: N/A Allergies and current medication updated:Yes EXAM: BP 114/78 Wt 154 lb (69.9kg) LMP 10/02/2022 GENERAL: pleasant, female in no apparent distress HEENT: Normocephalic and atraumatic NECK: Supple and full range of motion DERMATOLOGY: Normal, without lesions, non-icteric, and non-hirsute ABDOMEN: soft, no masses, and Mild tenderness in LLQ PELVIC: external genitalia normal, normal Bartholin's glands, urethra, Badin's glands, no vulvar lesions, no cervical lesions, good vaginal support, normal appearing perineal body and perianal region, moderate amount of dark blood. Small oozing from os, no tissue noted at os. Os is closed. BIMANUAL: uterus normal size, shape and consistency, no adnexal masses, and Mild tenderness- more on left side. NEURO: alert and oriented x3,exam grossly non-focal EXTREMITIES: normal Limited bedside ultrasound> Limited bedside ultrasound was performed and showed that she still has a simple left appearing ovarian cyst that measures 4.7 x 4.1 cm. There is good ovarian flow. There is no fluid in the cul-de-sac. The endometrial thickness is 1.02 cm. It is somewhat heterogenous whether this is clot or products of conception difficult to tell. There is no color-flow. ASSESSMENT AND PLAN: Encounter Diagnosis ICD-10-CM 1. Pelvic pain in female R10.2 oxyCODONE-acetaminophen (PERCOCET) 5-325 mg tablet 2. Retained products of conception after miscarriage O03.4 miSOPROStol (CYTOTEC) 200 mcg tablet 3. Episode of heavy vaginal bleeding N93.9 CBC 4. Ovarian cyst, left N83.202 5. Discussed with the patient that is possible there could be some retained products versus clot. Because the lining is only 1.02 cm recommendation would be for trial of Cytotec. Discussed with the patient could experiencing cramping and heavier bleeding. Bleeding precautions were reviewed with thepatient. We will check a CBC today. Cytotec was ordered and proper use was discussed with the patient. If she has any concerns she will call the office otherwise I will see her next week on the at 9:50 AM. We also discussed signs and symptoms of ovarian torsion at 4.7 cm simple cyst discussed that this would be rare however possible. Discussed that I do not want to mask the pain with narcotics however not have a right ovary performing surgery. Put her at risk for losing that ovary as well.Patient verbalized understanding when to go to the ER or call the office was reviewed and she understood. 6. OCPs reviewed- pt would like to start. 7. Anora testing not resulted. Medical Decision Making: Problems: Moderate: New problem with uncertain prognosis Data: Unique test(s) ordered: 1 Risk: Moderate: Drug management and Moderate risk from testing/treatment Medical Decision Making Level: 4 - Moderate This note was partially generated using Code [employer] voice recognition system. Colleen Jacob MD [facility] History and physical note Author Yvonne Castañeda [facility] November 27, 2022 1:07pm Note Date/Time November 27, 2022 1 2:05pm [facility] Medical Records Department [address] [place] [id number] H&P Exam - [facility]ORTER BAGGAGE 11/27/22 1205 MR#: [id number] Acct: [id number] Name: EKNDALL VASQUES Rep #:[id number] : 1985 37 From: Colleen Zavala MD PCP: Winsome Cuevas CNP Status:[facility] Location: [place] [address] History and Physical Date of Admission: 11/27/22 Pre-Op History and Physical ? HPI: The patient is a 36 year old female presenting for pre-operative visit. She is scheduled for Suction D&C, for missed ab on TBD (November 2022 week of 11/24). Procedure discussed along with risks, benefits and complications. Other alternatives discussed for management. Consent form signed? Yes. ? ? PAST MEDICAL HISTORY PAST MEDICAL HISTORY Diagnosis Date ? Abnormal Pap smear of cervix ? ? +HPV ? Anemia ? ? Asthma ? ? Breast cyst, left 2019 ? Chlamydia ? ? Depression/anxiety ? ? Herpes simplex virus (HSV) infection ? ? Hx of ovarian cyst ? ? Hx: UTI (urinary tract infection) ? ? Hypertension ? ? Hypoglycemia 5 years ago ? Infectious mononucleosis ? ? Infertility, female ? ? Insomnia ? ? PID (acute pelvic inflammatory disease) 2014 ? Placental abruption ? ? depression ? ? Recurrent UTI ? ? Renal calculi ? ? recurrent kidney stones ? 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 Sickle cell anemia (HCC) ? ? Syncope and collapse ? ? with pseudo-seizures ? Thyroid disease ? ? ? PAST SURGICAL HISTORY PAST SURGICAL HISTORY Procedure Laterality Date ? BREAST CYST ASPIRATION - ADDTL LESION ? 2018 ? Dr Corona-Drifting ? CERVIX UTERI CONIZA LP ELCTRO EXCI ? 2007 ? SECTION HX ? ? ? classical incision ? CT ABDOMEN ? 09/10/2004 ? [facility] ? CT BRAIN ? 06/19/2005 ? [facility] ? L'SCOPE DX W/WO BRUSHINGS/WASHINGS ? 03/17/2022 ? Dr Myers-pelvic pain-endometriosis ruled out ? L'SCOPE DX W/WO BRUSHINGS/WASHINGS ? 03/12/2020 ? lysis of adhesions-Dr Myers ? LITHOTRIPSY XTRCORP SHOCK WAVE ? 04/16/2006 ? Lithotripsy Right kidney ? OVARY SURGERY HX ? 04/10/2013 ? Excision of right fallopian tube and ovary ? PAST SURGICAL HISTORY OF ? 02/16/2003 ? right ear cartilage repair ? TONSILLECTOMY AND ADENOIDECTOMY HX ? 12/17/2012 ? ? ? CURRENT MEDICATIONS Current Outpatient Medications Medication Sig Dispense Refill ? sertraline (ZOLOFT) 100 mg tablet Take 100 mg by mouth once daily. ? ? ? albuterol HFA (PROVENTIL HFA, VENTOLIN HFA) 90 mcg/actuation inhaler Inhale 1 Puff as instructed every 4 hours as needed. ? ? ? promethazine (PHENERGAN) 25 mg tablet Take 25 mg by mouth every 6 hours asneeded. ? ? ? traZODone (DESYREL) 100 mg tablet Take 100 mg by mouth. ? ? ? vit/iron fum/folic ac (-FOLIC ACID ORAL) Take by mouth. ? ? ? ondansetron orally disintegrating (ZOFRAN ODT) 4 mg disintegrating tablet Take 1 tablet by mouth every 6 hours as needed for nausea/vomiting. 20 tablet 0 ? tamsulosin (FLOMAX) 0.4 mg Take 1 capsule by mouth daily at bedtime for 7 days. 7 capsule 0 ? omeprazole (PRILOSEC) 20 mg capsule Take 1 capsule by mouth once daily for28 days. 28 capsule 0 ? diphenhydrAMINE (BENADRYL) 25 mg capsule Take 1 capsule by mouth every 6 hours as needed (with Compazine). 20 capsule 0 ? gabapentin (NEURONTIN) 100 mg capsule Take 1 capsule by mouth once daily. ? ? ? tiZANidine HCl (ZANAFLEX) 4 mg capsule Take 4 mg by mouth three times daily as needed for Muscle Spasm. ? ? ? levETIRAcetam (KEPPRA) 500 mg tablet Take 500 mg by mouth twice daily. ? ? ? citalopram hydrobromide (CELEXA) 10 mg tablet Take 10 mg by mouth once daily. ? ? ? ibuprofen (MOTRIN) 600 mg tablet Take 600 mg by mouth every 6 hours as needed. ? ? ? oxyCODONE-acetaminophen (PERCOCET) 5-325 mg tablet Take 1 tablet by mouth every 4 hours as needed. ? ? ? traMADol (ULTRAM) 50 mg tablet Take 50 mg by mouth every 6 hours as needed. ? ? ? HYDROCODONE/ACETAMINOPHEN (NORCO ORAL) Take by mouth. ? ? ? cyclobenzaprine (FLEXERIL) 10 mg tablet Take 10 mg by mouth daily at bedtime. ? ? ? diphenhydrAMINE (SLEEP AID, DIPHENHYDRAMINE,) 50 mg capsule Take 50 mg by mouth every 6 hours as needed. ? ? ? levETIRAcetam (KEPPRA) 500 mg tablet Take 0.5 tablets by mouth twice daily. 30 tablet 11 ? rizatriptan (MAXALT) 10 mg tablet Take 1 tablet by mouth as needed for Migraine Headache (see administration instructions) (at onset of headache. May repeat after 2 hours.). 12 tablet 3 ? norethindrone-e.estradiol-iron (LO LOESTRIN FE) 1 mg-10 mcg(24) /10 mcg (2) ORAL Tab Take 1 tablet by mouth once daily. ? ? ? No current facility-administered medications for this visit. ? ? ALLERGIES: Shellfish Containing Products, Adhesive, Codeine, Flagyl [Metronidazole], Morphine, Nsaids (Non-Steroidal Anti-Inflammatory Drug), and Topamax [Topiramate] ? PERSONAL HISTORY: SOCIAL HISTORY Social History ? Tobacco Use ? Smoking status: Never ? Smokeless tobacco: Never Vaping Use ? Vaping Use: Never used Substance Use Topics ? Alcohol use: No ? Drug use: No ? FAMILY HISTORY: FAMILY HISTORY FAMILY HISTORY Problem Relation Age of Onset ? Stroke Father ? ? No Known Problems Sister ? ? Hypertension Maternal Grandmother ? ? Blood Clots Maternal Grandmother ? ? other (Hypoglycemia) Maternal Grandfather ? ? Heart Maternal Grandfather ? ? Diabetes Maternal Grandfather ? ? Breast Cancer Paternal Grandmother ? ? Heart Attack Paternal Grandfather ? ? other (epilepsy) Half-sister ? ? ? REVIEW OF SYMPTOMS: negative except as noted above PHYSICAL EXAMINATION: ? VITALS: Blood pressure 108/70, height 5' 4 (1.626 m), weight 148 lb (67.1 kg), last menstrual period 10/02/2022. ? GENERAL: The patient is well nourished, well hydrated in no acute distress. , The patient is oriented to time, place, and person. NECK: full range of motion ? GENITALIA: Normal external genitalia, Urethral meatus normal, normal vagina and normal vaginal tone, normal cervix, and dark brown blood in vault. Cervix closed. ? IMPRESSION: 36yo with missed - 6 weeks ? PLAN: Suction D&C, with ANORA TESTING requested ? Pt has been counseled on risks/benefits and alternatives of surgery including but not limited to anesthesia, bleeding, infection, uterine perforation with subsequent injury to pelvic structures including bowel, bladder, ureters and vessels. Pt wishes to proceed with surgery at this time. Retained POC, risk of transfusion. PRE OP labs and Doxycycline ordered at [facility] ? I have reviewed and updated past medical and surgical history, medications and allergies Colleen Zavala MD ?1:13 PM 11/27/22 1205 <Electronically signed by Colleen Jacob MD> Cosigner Signature (if applicable): CC: DORETHA Cuevas; Norma Jacob; Dr. Yvonne Castañeda MD~ Signed ADDENDUM by Dr. Yvonne Castañeda MD on 11/27/22 at 1307 Addendum UPDATE- I have seen the patient and performed any clinically relevant updates to the history and physical exam. 11/27/22 1307<Electronically signed by Yvonne Castañeda MD> Cosigner Signature (if applicable): cc: DORETHA Cuevas; Norma Jacob; Dr. Yvonne Castañeda MD ~* Signed [facility] Work Phone: 1(564) 923-788110-12-2023 Procedure [facility] 11-24-2022 History and physical note* Colleen Major MD - 11/24/2022 1:04 PM EDT Pre-Op History and Physical HPI: The patient is a 36 year old female presenting for pre-operative visit. She is scheduled for Suction D&C, for missed ab on TBD (November 2022 week of 11/24). Procedure discussed along with risks, benefits and complications. Other alternatives discussed for management. Consent form signed? Yes. PAST MEDICAL HISTORY Diagnosis Date Abnormal Pap smear of cervix +HPV Anemia Asthma Breast cyst, left 2018 Chlamydia Depression/anxiety Herpes simplex virus (HSV) infection Hx of ovarian cyst Hx: UTI (urinary tract infection) Hypertension Hypoglycemia 5 years ago Infectious mononucleosis Infertility, female Insomnia PID (acute pelvic inflammatory disease) 2015 Placental abruption depression Recurrent UTI Renal calculi recurrent kidney stones Seizure disorder (HCC) psychogenic Sickle cell anemia (HCC) Syncope and collapse with pseudo-seizures Thyroid disease PAST SURGICAL HISTORY Procedure Laterality Date BREAST CYST ASPIRATION - ADDTL LESION 2019 Dr Corona-Drifting CERVIX UTERI CONIZA LP ELCTRO EXCI 2008 SECTION HX classical incision CT ABDOMEN 09/10/[address] [facility] CT BRAIN 06/19/2005 [facility] L'SCOPE DX W/WO BRUSHINGS/WASHINGS 03/17/2022 Dr Myers-pelvic pain-endometriosis ruled out L'SCOPE DX W/WO BRUSHINGS/WASHINGS 03/12/2020 lysis of adhesions-Dr Myers LITHOTRIPSY XTRCORP SHOCK WAVE 04/16/2006 Lithotripsy Right kidney OVARY SURGERY HX 04/10/2013 Excision of right fallopian tube and ovary PAST SURGICAL HISTORY OF 02/16/2003 right ear cartilage repair TONSILLECTOMY AND ADENOIDECTOMY HX 12/17/2012 Current Outpatient Medications Medication Sig Dispense Refill sertraline (ZOLOFT) 100 mg tablet Take 100 mg by mouth once daily. albuterol HFA (PROVENTIL HFA, VENTOLIN HFA) 90 mcg/actuation inhaler Inhale 1 Puff as instructed every 4 hours as needed. promethazine (PHENERGAN) 25 mg tablet Take 25 mg by mouth every 6 hours as needed. traZODone (DESYREL) 100 mg tablet Take 100 mg by mouth. vit/iron fum/folic ac (-FOLIC ACID ORAL) Take by mouth. ondansetron orally disintegrating (ZOFRAN ODT) 4 mg disintegrating tablet Take 1 tablet by mouth every 6 hours as needed for nausea/vomiting. 20 tablet 0 tamsulosin (FLOMAX) 0.4 mg Take 1 capsule by mouth daily at bedtime for 7 days. 7 capsule 0 omeprazole (PRILOSEC) 20 mg capsule Take 1 capsule by mouth once daily for 28 days. 28 capsule 0 diphenhydrAMINE (BENADRYL) 25 mg capsule Take 1 capsule by mouth every 6 hours as needed (with Compazine). 20 capsule 0 gabapentin (NEURONTIN) 100 mg capsule Take 1 capsule by mouth once daily. tiZANidine HCl (ZANAFLEX) 4 mg capsule Take 4 mg by mouth three times daily as needed for Muscle Spasm. levETIRAcetam (KEPPRA) 500 mg tablet Take 500 mg by mouth twice daily. citalopram hydrobromide (CELEXA) 10 mg tablet Take 10 mg by mouth once daily. ibuprofen (MOTRIN) 600 mg tablet Take 600 mg by mouth every 6 hours as needed. oxyCODONE-acetaminophen (PERCOCET) 5-325 mg tablet Take 1 tablet by mouth every 4 hours as needed. traMADol (ULTRAM) 50 mg tablet Take 50 mg by mouth every 6 hours as needed. HYDROCODONE/ACETAMINOPHEN (NORCO ORAL) Take by mouth. cyclobenzaprine (FLEXERIL) 10 mg tablet Take 10 mg by mouth daily at bedtime. diphenhydrAMINE (SLEEP AID, DIPHENHYDRAMINE,) 50 mg capsule Take 50 mg by mouth every 6 hours as needed. levETIRAcetam (KEPPRA) 500 mg tablet Take 0.5 tablets by mouth twice daily. 30 tablet 11 rizatriptan (MAXALT) 10 mg tablet Take 1 tablet by mouth as needed for Migraine Headache (see administration instructions) (at onset of headache. May repeat after 2 hours.). 12 tablet 3 norethindrone-e.estradiol-iron (LO LOESTRIN FE) 1 mg-10 mcg(24) /10 mcg (2) ORAL Tab Take 1 tablet by mouth once daily. No current facility-administered medications for this visit. ALLERGIES: Shellfish Containing Products, Adhesive, Codeine, Flagyl [Metronidazole], Morphine, Nsaids (Non-Steroidal Anti-Inflammatory Drug), and Topamax [Topiramate] PERSONAL HISTORY: Social History Tobacco Use Smoking status: Never Smokeless tobacco: Never Vaping Use Vaping Use: Never used Substance Use Topics Alcohol use: No Drug use: No FAMILY HISTORY: FAMILY HISTORY Problem Relation Age of Onset Stroke Father No Known Problems Sister Hypertension Maternal Grandmother Blood Clots Maternal Grandmother other (Hypoglycemia) Maternal Grandfather Heart Maternal Grandfather Diabetes Maternal Grandfather Breast Cancer Paternal Grandmother Heart Attack Paternal Grandfather other (epilepsy) Half-sister REVIEW OF SYMPTOMS: negative except as noted above PHYSICAL EXAMINATION: VITALS: Blood pressure 108/70, height 5' 4 (1.626 m), weight 148 lb (67.1 kg), last menstrual period 10/02/2022. GENERAL: The patient is well nourished, well hydrated in no acute distress. , The patient is oriented to time, place, and person. NECK: full range of motion GENITALIA: Normal external genitalia, Urethral meatus normal, normal vagina and normal vaginal tone, normal cervix, and dark brown blood in vault. Cervix closed. IMPRESSION: 36yo with missed - 6 weeks PLAN: Suction D&C, with ANORA TESTING requested Pt has been counseled on risks/benefits and alternatives of surgery including but not limited to anesthesia, bleeding, infection, uterine perforation with subsequent injury to pelvic structures including bowel, bladder, ureters and vessels. Pt wishes to proceed with surgery at this time. Retained POC, risk of transfusion. PRE OP labs and Doxycycline ordered at [facility] I have reviewed and updated past medical and surgical history, medications and allergies Colleen Zavala MD [facility] NoteHNO ID: [id number] Author: Colleen Major MD Service: ? Author Type: Physician Type: Progress Notes Filed: 11/24/2022 1:13 PM Note Text: Kendall Vasques is a 36 year old female who presents for initial however reports has been having continuous bleeding and minor cramping. Pt had dating us Thursday which showed +FHR in the 60s but was only measuring 6w1d- and subchorionic hematoma. Pt reports has been following pelvic rest suggestions since that time. Pt reports no other concerns today. Pt reports had loss labor 24 weeks due to possible kidney infection with last child who shortly after - pt is anxious with bleeding today. 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: 10/02/2022 (Approximate), Age at Menarche: Age at First : Age at Menopause: Beam Worker History Comments: Sexual Activity: Yes; Male Contraception: Pill PAST MEDICAL HISTORY Diagnosis Date Abnormal Pap smear of cervix +HPV Anemia Asthma Breast cyst, left 2019 Chlamydia Depression/anxiety Herpes simplex virus (HSV) infection Hx of ovarian cyst Hx: UTI (urinary tract infection) Hypertension Hypoglycemia 5 years ago Infectious mononucleosis Infertility, female Insomnia PID (acute pelvic inflammatory disease) 2015 Placental abruption depression Recurrent UTI Renal calculi recurrent kidney stones Seizure disorder (HCC) psychogenic Sickle cell anemia (HCC) Syncope and collapse with pseudo-seizures Thyroid disease PAST SURGICAL HISTORY Procedure Laterality Date BREAST CYST ASPIRATION - ADDTL LESION 2018 Dr Corona-Drifting CERVIX UTERI CONIZA LP ELCTRO EXCI 2008 SECTION HX classical incision CT ABDOMEN 09/10/[address] [facility] [address] BRAIN 06/19/2005 [facility] L'SCOPE DX W/WO BRUSHINGS/WASHINGS 03/17/2022 Dr Myers-pelvic pain-endometriosis ruled out L'SCOPE DX W/WO BRUSHINGS/WASHINGS 03/12/2020 lysis of adhesions-Dr Myers LITHOTRIPSY XTRCORP SHOCK WAVE 04/16/2006 Lithotripsy Right kidney OVARY SURGERY HX 04/10/2013 Excision of right fallopian tube and ovary PAST SURGICAL HISTORY OF 02/16/2003 right ear cartilage repair TONSILLECTOMY AND ADENOIDECTOMY HX 12/17/2012 FAMILY HISTORY Problem Relation Age of Onset Stroke Father No Known Problems Sister Hypertension Maternal Grandmother Blood Clots Maternal Grandmother other (Hypoglycemia) Maternal Grandfather Heart Maternal Grandfather Diabetes Maternal Grandfather Breast Cancer Paternal Grandmother Heart Attack Paternal Grandfather other (epilepsy) Half-sister Social History Tobacco Use Smoking status: Never Smokeless tobacco: Never Vaping Use Vaping Use: Never used Substance Use Topics Alcohol use: No Drug use: No Current Outpatient Medications Medication Sig sertraline (ZOLOFT) 100 mg tablet Take 100 mg by mouth once daily. albuterol HFA (PROVENTIL HFA, VENTOLIN HFA) 90 mcg/actuation inhaler Inhale 1 Puff as instructed every 4 hours as needed. promethazine (PHENERGAN) 25 mg tablet Take 25 mg by mouth every 6 hours as needed. traZODone (DESYREL) 100 mg tablet Take 100 mg by mouth. vit/iron fum/folic ac (-FOLIC ACID ORAL) Take by mouth. ondansetron orally disintegrating (ZOFRAN ODT) 4 mg disintegrating tablet Take 1 tablet by mouth every 6 hours as needed for nausea/vomiting. tamsulosin (FLOMAX) 0.4 mg Take 1 capsule by mouth daily at bedtime for 7 days. omeprazole (PRILOSEC) 20 mg capsule Take 1 capsule by mouth once daily for 28 days. diphenhydrAMINE (BENADRYL) 25 mg capsule Take 1 capsule by mouth every 6 hours as needed (with Compazine). gabapentin (NEURONTIN) 100 mg capsule Take 1 capsule by mouth once daily. tiZANidine HCl (ZANAFLEX) 4 mg capsule Take 4 mg by mouth three times daily as needed for Muscle Spasm. levETIRAcetam (KEPPRA) 500 mg tablet Take 500 mg by mouth twice daily. citalopram hydrobromide (CELEXA) 10 mg tablet Take 10 mg by mouth once daily. ibuprofen (MOTRIN) 600 mg tablet Take 600 mg by mouth every 6 hours as needed. oxyCODONE-acetaminophen (PERCOCET) 5-325 mg tablet Take 1 tablet by mouth every 4 hours as needed. traMADol (ULTRAM) 50 mg tablet Take 50 mg by mouth every 6 hours as needed. HYDROCODONE/ACETAMINOPHEN (NORCO ORAL) Take by mouth. cyclobenzaprine (FLEXERIL) 10 mg tablet Take 10 mg by mouth daily at bedtime. diphenhydrAMINE (SLEEP AID, DIPHENHYDRAMINE,) 50 mg capsule Take 50 mg by mouth every 6 hours as needed. levETIRAcetam (KEPPRA) 500 mg tablet Take 0.5 tablets by mouth twice daily. rizatriptan (MAXALT) 10 mg tablet Take 1 tablet by mouth as needed for Migraine Headache (see administration instructions) (at onset of headache. May repeat after 2 hours.). norethindrone-e.estradiol-iron (LO LOESTRIN FE) 1 mg-10 mcg(24) /10 mcg (2) (more content not included)...[facility]10-09-2023 History of Present illness Narrative* Colleen Major MD - 11/24/2022 10:35 AM EDT Kendall Vasques is a 36 year old female who presents for initial however reports has been having continuous bleeding and minor cramping. Pt had dating us Thursday which showed +FHR in the 60s but was only measuring 6w1d- and subchorionic hematoma. Pt reports has been following pelvic restsuggestions since that time. Pt reports no other concerns today. Pt reports had loss labor 24 weeks due to possible kidney infection with last child who shortly after - pt isanxious with bleeding today. 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: 10/02/2022 (Approximate), Age at Menarche: Age at First : Age at Menopause: Beam Worker History Comments: Sexual Activity: Yes; Male Contraception: Pill PAST MEDICAL HISTORY Diagnosis Date Abnormal Pap smear of cervix +HPV Anemia Asthma Breast cyst, left 2018 Chlamydia Depression/anxiety Herpes simplex virus (HSV) infection Hx of ovarian cyst Hx: UTI (urinary tract infection) Hypertension Hypoglycemia 5 years ago Infectious mononucleosis Infertility, female Insomnia PID (acute pelvic inflammatory disease) 2015 Placental abruption depression Recurrent UTI Renal calculi recurrent kidney stones Seizure disorder (HCC) psychogenic Sickle cell anemia (HCC) Syncope and collapse with pseudo-seizures Thyroid disease PAST SURGICAL HISTORY Procedure Laterality Date BREAST CYST ASPIRATION - ADDTL LESION 2019 Dr Corona-Drifting CERVIX UTERI CONIZA LP ELCTRO EXCI 2008 SECTION HX classical incision CT ABDOMEN 09/10/[address] [facility] [address] BRAIN 06/19/2005 [facility] L'SCOPE DX W/WO BRUSHINGS/WASHINGS 03/17/2022 Dr Myers-pelvic pain-endometriosis ruled out L'SCOPE DX W/WO BRUSHINGS/WASHINGS 03/12/2020 lysis of adhesions-Dr Myers LITHOTRIPSY XTRCORP SHOCK WAVE 04/16/2006 Lithotripsy Right kidney OVARY SURGERY HX 04/10/2013 Excision of right fallopian tube and ovary PAST SURGICAL HISTORY OF 02/16/2003 right ear cartilage repair TONSILLECTOMY AND ADENOIDECTOMY HX 12/17/2012 FAMILY HISTORY Problem Relation Age of Onset Stroke Father No Known Problems Sister Hypertension Maternal Grandmother Blood Clots Maternal Grandmother other (Hypoglycemia) Maternal Grandfather Heart Maternal Grandfather Diabetes Maternal Grandfather Breast Cancer Paternal Grandmother Heart Attack Paternal Grandfather other (epilepsy) Half-sister Social History Tobacco Use Smoking status: Never Smokeless tobacco: Never Vaping Use Vaping Use: Never used Substance Use Topics Alcohol use: No Drug use: No Current Outpatient Medications Medication Sig sertraline (ZOLOFT) 100 mg tablet Take 100 mg by mouth once daily. albuterol HFA (PROVENTIL HFA, VENTOLIN HFA) 90 mcg/actuation inhaler Inhale 1 Puff as instructed every 4 hours as needed. promethazine (PHENERGAN) 25 mg tablet Take 25 mg by mouth every 6 hours as needed. traZODone (DESYREL) 100 mg tablet Take 100 mg by mouth. vit/iron fum/folic ac (-FOLIC ACID ORAL) Take by mouth. ondansetron orally disintegrating (ZOFRAN ODT) 4 mg disintegrating tablet Take 1 tablet by mouth every 6 hours as needed for nausea/vomiting. tamsulosin (FLOMAX) 0.4 mg Take 1 capsule by mouth daily at bedtime for 7 days. omeprazole (PRILOSEC) 20 mg capsule Take 1 capsule by mouth once daily for 28 days. diphenhydrAMINE (BENADRYL) 25 mg capsule Take 1 capsule by mouth every 6 hours as needed (with Compazine). gabapentin (NEURONTIN) 100 mg capsule Take 1 capsule by mouth once daily. tiZANidine HCl (ZANAFLEX) 4 mg capsule Take 4 mg by mouth three times daily as needed for Muscle Spasm. levETIRAcetam (KEPPRA) 500 mg tablet Take 500 mg by mouth twice daily. citalopram hydrobromide (CELEXA) 10 mg tablet Take 10 mg by mouth once daily. ibuprofen (MOTRIN) 600 mg tablet Take 600 mg by mouth every 6 hours as needed. oxyCODONE-acetaminophen (PERCOCET) 5-325 mg tablet Take 1 tablet by mouth every 4 hours as needed. traMADol (ULTRAM) 50 mg tablet Take 50 mg by mouth every 6 hours as needed. HYDROCODONE/ACETAMINOPHEN (NORCO ORAL) Take by mouth. cyclobenzaprine (FLEXERIL) 10 mg tablet Take 10 mg by mouth daily at bedtime. diphenhydrAMINE (SLEEP AID, DIPHENHYDRAMINE,) 50 mg capsule Take 50 mg by mouth every 6 hours as needed. levETIRAcetam (KEPPRA) 500 mg tablet Take 0.5 tablets by mouth twice daily. rizatriptan (MAXALT) 10 mg tablet Take 1 tablet by mouth as needed for Migraine Headache (see administration instructions) (at onset of headache. May repeat after 2 hours.). norethindrone-e.estradiol-iron (LO LOESTRIN FE) 1 mg-10 mcg(24) /10 mcg (2) ORAL Tab Take 1 tablet by mouth once daily. No current facility-administered medications for this visit. Allergies As of Date: 11/24/2022 Allergen Noted Reaction SHELLFISH CONTAINING PRODUCTS 04/17/2021 Swelling ADHESIVE 06/17/2011 Rash CODEINE 09/20/2009 Hives and Vomiting FLAGYL [METRONIDAZOLE] 09/27/2021 Other: See Comments MORPHINE 05/23/2022 Hives NSAIDS (NON-STEROIDAL ANTI-INFLAM*09/27/2021 Other: See Comments TOPAMAX [TOPIRAMATE] 09/27/2021 GI Upset Fully Assessed 11/24/2022 REVIEW OF SYSTEMS Abdomen: mild cramping. Expanded ROS: no fever Allergies and current medication updated:Yes EXAM: BP 108/70 Ht 5' 4 (1.63m) Wt 148 lb (67.1kg) LMP 10/02/2022 BMI 25.39 kg/(m^2). GENERAL: pleasant, female in no apparent distress HEENT: Normocephalic and atraumatic NECK: Supple and full range of motion DERMATOLOGY: Normal and without lesions ABDOMEN: soft and non-tender PELVIC: external genitalia normal, normal Bartholin's glands, urethra, Badin's glands, no vulvar lesions, no cervical lesions, good vaginal support, normal appearing perineal body and perianal region, moderate amount of dark brown blood in vault. Cervix appers thick and closed. NEURO: alert and oriented x3,exam grossly non-focal EXTREMITIES: normal Limited bedside ultrasound: confirms NO FHR- FP measures 6w. LM in for confirmation and agrees withfindings. Debris noted in gestational sac. ASSESSMENT AND PLAN: Encounter Diagnosis ICD-10-CM 1. Missed O02.1 2. Bleeding in early O20.9 3. Screening for malignant neoplasm of cervix Z12.4 PAP TEST 4. Special screening examination for human papillomavirus (HPV) Z11.51 PAP TEST 5. Reviewed options for incomplete ab- discussed expectant management versus medical management versus surgical management with an office bypass versus D&C in the operating room. After discussionpatient would like to proceed with surgical management in the operating room. Consent was obtained today-patient understands that our crew scheduler is not here today and that we will complete that soon as possible likely be done this week. She understands that this may or may not be completed by myself depending on when this is scheduled. Bleeding precautions were reviewed. PRE OP LABS and ABX ordered at [facility] Medical Decision Making: Problems: Moderate: New problem with uncertain prognosis Data: Unique test(s) ordered: 3+ Risk: Moderate: Decision on minor surgery w/ risk factors and Drug management Medical Decision Making Level: 4 - Moderate Colleen Jacob MD [facility] Instructions* Patient Instructions* Lyndsey Mojica Ma - 11/24/2022 10:35 AM EDT Please select the following link to access the [facility] Your Guide to a Healthy . [email or web address] documented in this encounterBu[facility]10-02-[facility] History of Past illness Narrative* Problem Noted Date Diagnosed Date Resolved Date Supervision of wit h history of infertility, first trimester 11/17/2022 03/24/2023 Overview: 11/17/2022atient and partner have been attempting for 13 months. Patient took letrozole to get . TKRN Vaginal bleeding in pregnanc y, first trimester 11/17/2022 03/24/2023 Overview: 11/17/2022 Patient has a history of first trimester bleeding. She called in October 25 complaining of bleeding when she wiped. Quants were done. Shec had 2 visits to the [facility] ED, 1 on November 09 and the other November 11 for right lower quadrant pain. She states she continues to have bleeding when she wipes or with a bowel movement. The pain is still present but she states it comes and goes. Discussed the importance of reporting /going to Hospital ED if any increased bleeding, worsening pain or as needed problems. Patient has an ultrasound scheduled November 21 and a new OB appointment with Dr. Garcia on November 24. TKRN Antepartum multigravida of a dvanced maternal age 1011/17/2022 03/24/2023 Overview: 11/17/2022 Patient is 36 years old. She will be 37 years old on November 25. Advanced maternal age discussed. Noninvasive and invasive testing options discussed. Patient desires nuchal ultrasound and maternity 21 testing. Contact information for integrated genetics given to patient to check on insurance coverage. TKRN History of hypertension 11/17/2022 02/07/2023 Overview: 11/17/2022atient states she was diagnosed with high blood pressure in 2019. She states she took spironolactone for swelling knees and borderline high blood pressure. This was treated by Dr. Mariano a campaign analyst at [facility].Patient states that she is taking her blood pressures daily and will bring her log into her with her next new OB appointment. TKRN Last Assessment & Plan: Assessment: hx, no longer taking rx Last 14 BP Last 14 Encounter BP Readings: Date: BP: 03/09/2023 116/76 01/28/2023 107/70 12/18/2022 106/66 12/09/2022 120/72 12/03/2022 114/78 11/24/2022 108/70 05/23/2022 108/75 05/02/2022 134/79 09/27/2021 110/70 12/27/2016 109/69 04/16/2016 104/74 03/19/2016 110/80 11/08/2015 118/72 05/10/2015 122/80 History of classical section 11/17/2022 03/24/2023 Overview: 11/17/2022 Patient previously delivered at [place]. She has a history of a 24- week loss due to placental abruption. She states a classical was done at [facility]. I have asked her to obtain the delivery operative report from [facility] and have it faxed here. Our fax number was provided to her. TKRN History of placental abruption 11/17/2022 03/24/2023 Overview: 11/17/2022 with prior -C Section done. TKRN in prior preg beth, currently 11/17/2022 03/24/2023 Overview: 11/17/2022 patient states she had an abruption in 2020. Transferred to [facility] and delivered at 24 weeks. Baby taken to NICU and lift for 2 hours.TKRN History of cervical LEEP bio psy affecting care of mother, antepartum 11/17/2022 03/24/2023 Overview: 11/17/2022atient states she had a LEEP done by Dr. Marquez in [place]. She will also get the operative report. TKRN Nausea and vomiting during 11/17/2022 03/24/2023 Overview: 11/17/2022atient is complaining of nausea and occasional vomiting in . Dietary considerations discussed . Vitamin B6 recommended. Advised patient to call/come in if she is unable to keep any food or fluids down in a 24-hour period. Nausea and vomiting is currently being relieved by Zofran and Phenergan prescribed by previous OB. TKRN Fever 03/19/2016 03/24/2023 Urinary tract infection with hematuria 03/19/2016 12/25/2018 Lower urinary tract symptoms (LUTS) 04/18/2015 03/24/2023 Irregular menses 06/17/2011 03/24/2023 Transient alteration of awareness 04/01/2011 11/21/2015 UTI (lower urinary tract infection) 09/20/2009 03/24/2023 Seizure disorder 09/20/2009 07/15/2011 documented as of this encounter (statuses as of 04/08/2023) [facility] History of Past illness Narrative* Problem Noted Date Diagnosed Date Resolved Date Supervision of wit h history of infertility, first trimester 11/17/2022 03/24/2023 Overview: 11/17/2022atient and partner have been attempting for 13 months. Patient took letrozole to get . TKRN Vaginal bleeding in pregnanc y, first trimester 11/17/2022 03/24/2023 Overview: 11/17/2022 Patient has a history of first trimester bleeding. She called in October 25 complaining of bleeding when she wiped. Quants were done. Shec had 2 visits to the [facility] ED, 1 on November 09 and the other November 11 for right lower quadrant pain. She states she continues to have bleeding when she wipes or with a bowel movement. The pain is still present but she states it comes and goes. Discussed the importance of reporting /going to Hospital ED if any increased bleeding, worsening pain or as needed problems. Patient has an ultrasound scheduled November 21 and a new OB appointment with Dr. Garcia on November 24. TKRN Antepartum multigravida of a dvanced maternal age 1011/17/2022 03/24/2023 Overview: 11/17/2022 Patient is 36 years old. She will be 37 years old on November 25. Advanced maternal age discussed. Noninvasive and invasive testing options discussed. Patient desires nuchal ultrasound and maternity 21 testing. Contact information for integrated genetics given to patient to check on insurance coverage. TKRN History of hypertension 11/17/2022 02/0 07/2023 Overview: 11/17/2022atient states she was diagnosed with high blood pressure in 2019. She states she took spironolactone for swelling knees and borderline high blood pressure. This was treated by Dr. Montserrat hale campaign analyst at [facility].Patient states that she is taking her blood pressures daily and will bring her log into her with her next new OB appointment. TKRN Last Assessment & Plan: Assessment: hx, no longer taking rx Last 14 BP Last 14 Encounter BP Readings: Date: BP: 03/09/2023 116/76 01/28/2023 107/70 12/18/2022 106/66 12/09/2022 120/72 12/03/2022 114/78 11/24/2022 108/70 05/23/2022 108/75 05/02/2022 134/79 09/27/2021 110/70 12/27/2016 109/69 04/16/2016 104/74 03/19/2016 110/80 11/08/2015 118/72 05/10/2015 122/80 History of classical section 11/17/2022 03/24/2023 Overview: 11/17/2022 Patient previously delivered at [place] [facility]. She has a history of a 24- week loss due to placental abruption. She states a classical was done at [facility]. I have asked her to obtain the delivery operative report from [facility] and have it faxed here. Our fax number was provided to her. TKRN History of placental abruption 11/17/2022 03/24/2023 Overview: 11/17/2022 with prior -C Section done. TKRN in prior preg beth, currently 11/17/2022 03/24/2023 Overview: 11/17/2022 patient states she had an abruption in 2020. Transferred to [facility] and delivered at 24 weeks. Baby taken to NICU and lift for 2 hours.TKRN History of cervical LEEP bio psy affecting care of mother, antepartum 11/17/2022 03/24/2023 Overview: 11/17/2022atient states she had a LEEP done by Dr. Marquez in [place]. She will also get the operative report. TKRN Nausea and vomiting during 11/17/2022 03/24/2023 Overview: 11/17/2022atient is complaining of nausea and occasional vomiting in . Dietary considerations discussed . Vitamin B6 recommended. Advised patient to call/come in if she is unable to keep any food or fluids down in a 24-hour period. Nausea and vomiting is currently being relieved by Zofran and Phenergan prescribed by previous OB. TKRN Fever 03/19/2016 03/24/2023 Urinary tract infection with hematuria 03/19/2016 12/25/2018 Lower urinary tract symptoms (LUTS) 04/18/2015 03/24/2023 Irregular menses 06/17/2011 03/24/2023 Transient alteration of awareness 04/01/2011 11/21/2015 UTI (lower urinary tract infection) 09/20/2009 03/24/2023 Seizure disorder 09/20/2009 07/15/2011 documented as of this encounter (statuses as of 05/05/2023) [facility] History of Past illness Narrative* Problem Noted Date Diagnosed Date Resolved Date Supervision of wit h history of infertility, first trimester 11/17/2022 03/24/2023 Overview: 11/17/2022atient and partner have been attempting for 13 months. Patient took letrozole to get . TKRN Vaginal bleeding in pregnanc y, first trimester 11/17/2022 03/24/2023 Overview: 11/17/2022 Patient has a history of first trimester bleeding. She called in October 25 complaining of bleeding when she wiped. Quants were done. Shec had 2 visits to the [facility] ED, 1 on November 09 and the other November 11 for right lower quadrant pain. She states she continues to have bleeding when she wipes or with a bowel movement. The pain is still present but she states it comes and goes. Discussed the importance of reporting /going to Hospital ED if any increased bleeding, worsening pain or as needed problems. Patient has an ultrasound scheduled November 21 and a new OB appointment with Dr. Garcia on November 24. TKRN Antepartum multigravida of a dvanced maternal age 1011/17/2022 03/24/2023 Overview: 11/17/2022 Patient is 36 years old. She will be 37 years old on November 25. Advanced maternal age discussed. Noninvasive and invasive testing options discussed. Patient desires nuchal ultrasound and maternity 21 testing. Contact information for integrated genetics given to patient to check on insurance coverage. TKRN History of hypertension 11/17/202207/2023 Overview: 11/17/2022atient states she was diagnosed with high blood pressure in 2018. She states she took spironolactone for swelling knees and borderline high blood pressure. This was treated by Dr. Montserrat hale campaign analyst at [facility].Patient states that she is taking her blood pressures daily and will bring her log into her with her next new OB appointment. TKRN Last Assessment & Plan: Assessment: hx, no longer taking rx Last 14 BP Last 14 Encounter BP Readings: Date: BP: 03/09/2023 116/76 01/28/2023 107/70 12/18/2022 106/66 12/09/2022 120/72 12/03/2022 114/78 11/24/2022 108/70 05/23/2022 108/75 05/02/2022 134/79 09/27/2021 110/70 12/27/2016 109/69 04/16/2016 104/74 03/19/2016 110/80 11/08/2015 118/72 05/10/2015 122/80 History of classical section 11/17/2022 03/24/2023 Overview: 11/17/2022 Patient previously delivered at [place]. She has a history of a 24- week loss due to placental abruption. She states a classical was done at [facility]. I have asked her to obtain the delivery operative report from [facility] and have it faxed here. Our fax number was provided to her. TKRN History of placental abruption 11/17/2022 03/24/2023 Overview: 11/17/2022 with prior -C Section done. TKRN in prior preg beth, currently 11/17/2022 03/24/2023 Overview: 11/17/2022 patient states she had an abruption in 2020. Transferred to [facility] and delivered at 24 weeks. Baby taken to NICU and lift for 2 hours.TKRN History of cervical LEEP bio psy affecting care of mother, antepartum 11/17/2022 03/24/2023 Overview: 11/17/2022atient states she had a LEEP done by Dr. Marquez in [place]. She will also get the operative report. TKRN Nausea and vomiting during 11/17/2022 03/24/2023 Overview: 11/17/2022atient is complaining of nausea and occasional vomiting in . Dietary considerations discussed . Vitamin B6 recommended. Advised patient to call/come in if she is unable to keep any food or fluids down in a 24-hour period. Nausea and vomiting is currently being relieved by Zofran and Phenergan prescribed by previous OB. TKRN Fever 03/19/2016 03/24/2023 Urinary tract infection with hematuria 03/19/2016 12/25/2018 Lower urinary tract symptoms (LUTS) 04/18/2015 03/24/2023 Irregular menses 06/17/2011 03/24/2023 Transient alteration of awareness 04/01/2011 11/21/2015 UTI (lower urinary tract infection) 09/20/2009 03/24/2023 Seizure disorder 09/20/2009 07/15/2011 documented as of this encounter (statuses as of 03/26/2023) [facility] Miscellaneous Notes* Quick Notes - Karolyn Vidal RN - 11/17/2022 12:07 PM EDT DISTANCE HEALTH VISIT This Team Access Model visit is a phone encounter. It required patient-provider interaction for themedical decision making as documented below. Patient and partner have been attempting for13 months. Patient took letrozole to get . Patient has a history of first trimester bleeding. She called in October 25 complaining of bleeding when she wiped. Quants were done. She c had 2 visits to the [facility] ED, 1 on November 09 and the other November 11 for right lower quadrant pain. She states she continues to have bleeding when she wipes or with a bowel movement. The pain is still present but she states it comes and goes. Discussed the importance of reporting /going to Hospital ED if any increased bleeding, worsening pain or as needed problems. Patient has an ultrasound scheduled November 21 and a new OB appointment with Dr. Garcia on November 24. Patient is 36 years old. She will be 37 years old on November 25. Advanced maternal age discussed. Noninvasive and invasive testing options discussed. Patient desires nuchal ultrasound and maternity 21 testing. Contact information for integrated genetics given to patient to check on insurance coverage. Patient states she was diagnosed with high blood pressure in 2019. She states she took spironolactone for swelling knees and borderline high blood pressure. This was treated by Dr. Montserrat hale campaign analyst at [facility].Oatient states that she is taking her blood pressures daily and will bring her log into her with her next new OB appointment. Patient previously delivered at [place]. She has a history of a 24-week loss due to placental abruption. She states a classical was done at [facility]. I have asked her to obtain the delivery operative report from [facility] and have it faxed here. Our fax number was provided to her. Patient states she had a LEEP done by Dr. Marquez in [place]. She will also get the operative report. Patient is complaining of nausea and occasional vomiting in . Dietary considerations discussed . Vitamin B6 recommended. Advised patient to call/come in if she is unable to keep any food or fluids down in a 24-hour period. Nausea and vomiting is currently being relieved by Zofran and Phenergan prescribed by previous OB. Pt has a history of depression-anxiety/insomnia diagnosed in [address] Cuevas at [facility].She has seen a counselor in the past at [facility] she feels like she has a good support system. Feels like she is going through same anxiety right now being and having a history of a 24-week loss. Patient states she had depression. Patient believes she is doing well on medication. Patient is complaining of nausea and occasional vomiting in . Dietary considerations discussed . Discussed increased risks of depression during and and importance of reporting the development or worsening of symptoms should they occur. Patient has a history of psychogenic seizures. She states she has been off medication for the last 4 years. She states her last seizure was in 2020. She believes she has developed coping this can isms for stress and that the medication she takes for depression helps control the seizures. Patient currently sees Dr. Nielsen for history of recurrent UTIs and recurrent kidney stones and hypokalemia. We have received his records from November 13. Patient has a recheck appointment on March 12. She states she is to report to him any development of UTIs or kidney stones or tocall the office if her protein in her urine is 1+ or more. Did review with the patient that I foundlab reports from July 02, 2022 positive for opiates and oxycodone. Patient states that she had a kidney stone at that time and had medication left over from her that she used for to control the pain. She denies any drug use this . Discussed risks of using drugs during and advised patient to refrain from using any.Karolyn Vidal RN [facility] History of Present illness Narrative* Karolyn Vidal RN - 11/17/2022 8:36 AM EDT INITIAL OB ASSESSMENT OB Provider: Karolyn Vidal RN HPI: Kendall is a 36 year old White here to establish Obstetrical Care. Patient's last menstrual period was 10/02/2022 (approximate). from OB Dating Form. Cycles regular was planned and a result of fertility treatments Clomid/Letrizole Complaints: vaginal bleeding and nausea and vomiting OB History T0 L0 SAB0 IAB0 Ectopic0 Multiple0 Live Births1 # 1 - Date: 01/05/21, Sex: Female, Weight: 1 lb 3 oz (0.539 kg), GA: 24w0d, Delivery: , Other, Apgar1: None, Apgar5: None, Living: Demise, Comments: PTL 01/02/2021-[facility], placental abruption,Baby taken to NICU-Lived for 2 hours. Mom told baby from blood clot in lungs # 2 - Date: None, Sex: None, Weight: None, GA: None, Delivery: None, Apgar1: None, Apgar5: None, Living: None, Comments: None Previous history: Prior : yes x 1 History of 4th degree laceration: No History of shoulder dystocia: No History of Hypertensive disorders including pre-eclampsia, chronic hypertension or gestational hypertension: Yes History of gestational diabetes: No Patient's Risk Screening for delivery: Have you had a prior rossi between 20w and 36w6d?: (!) Yes Did you present in active spontaneous labor or have ruptured membranes, or advanced cervical dilation (greater than or equal to 4 cm) or effacement?: (!) Yes MEDICAL/PSYCHOSOCIAL HISTORY: History of hemorrhage or bleeding concerns: No Thyroid Disease: No History of chronic hypertension: Yes History of pre-existing diabetes: No No results found for: ABORHD No weight on file for this encounter. History of abnormal pap: Yes Prior treatment for cervical dysplasia: LEEP. History of STDs: chlamydia Tobacco use: No Caffeine use: No Drug use: No Alcohol use: No Multivitamin with Folic acid: Yes Bahai or heritage: No Would refuse blood transfusion if medically necessary: No Are you currently employed? No Do you have any history of depression, anxiety, PTSD, eating disorders or other mood problems: No Do you have any safety concerns or history of traumatic events that you would like to discuss with your provider: No SDOH Screening: How often does this describe you? I don't have enough money to pay my bills: Rarely Within the past 12 months, have you worried that your food would run out before you had money to buy more: Never In the past 12 months, has lack of reliable transportation kept you from going to medical appointments or work, or from keeping things needed for daily living: Never In the past 12 months, have you had any concerns about having a place to live, or about the condition or quality of your housing: Never Are there any cultural or spiritual needs we should be aware of: No Depression/Anxiety Screening: admits to symptoms of depression. OB Depression and Anxiety Screening- This Encounter (since 11/16/2022) Over the past 2 weeks have you felt down, depressed, or hopeless? Negative Over the past two weeks, have you felt little interest or pleasure in doing things? Positive - Further Testing Indicated I have been able to laugh and see the funny side of things. As much as I always could I have looked forward with enjoyment to things. Rather less than I used to I have blamed myself unnecessarily when things went wrong. Not very often I have been anxious or worried for no good reason. Yes, sometimes I have felt scared or panicky for no good reason. Yes, sometimes Things have been getting on top of me. Yes, sometimes I haven't been coping as well as usual I have been so unhappy that I have had difficulty sleeping. Not very often I have felt sad or miserable. Yes, quite often I have been so unhappy that I have been crying. Only occasionally The thought of harming myself has occurred to me. Never [place] Depression Scale Total 12 Feeling nervous, anxious or on edge 1-Several days Not being able to stop or control worrying 1-Several days Anxiety Pre-Screening Total (If >/= 3 additional questions will be reviewed) 2 Genetic Screening: Partner present: No Patient verbalized knowledge of partner family health history: Yes Do you or your partner have any personal or family history of defects not previously discussed: No Do you have history of a complicated by anomaly, genetic condition, or demise: Yes, loss at 24 weeks-lived for 2 hours-abruption ACOG Recommended Screening Screening for early gestational diabetes testing: Criteria for early testing requires elevated BMI plus one other risk factor: No weight on file for this encounter. 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 Gender: Male History of STDs: None PAST MEDICAL HISTORY Diagnosis Date Abnormal Pap smear of cervix +HPV Anemia Asthma Breast cyst, left 2018 Chlamydia Depression/anxiety Herpes simplex virus (HSV) infection Hx of ovarian cyst Hx: UTI (urinary tract infection) Hypertension Hypoglycemia 5 years ago Infectious mononucleosis Infertility, female Insomnia PID (acute pelvic inflammatory disease) 2015 Placental abruption depression Recurrent UTI Renal calculi recurrent kidney stones Seizure disorder (HCC) psychogenic Sickle cell anemia (HCC) Syncope and collapse with pseudo-seizures Thyroid disease PAST SURGICAL HISTORY Procedure Laterality Date BREAST CYST ASPIRATION - ADDTL LESION 2018 Dr Corona[facility] CERVIX UTERI CONIZA LP ELCTRO EXCI 2008 SECTION HX classical incision CT ABDOMEN 09/10/[address] [facility] [address] BRAIN 06/19/2005 [facility] L'SCOPE DX W/WO BRUSHINGS/WASHINGS 03/17/2022 Dr Myers-pelvic pain-endometriosis ruled out L'SCOPE DX W/WO BRUSHINGS/WASHINGS 03/12/2020 lysis of adhesions-Dr Myers LITHOTRIPSY XTRCORP SHOCK WAVE 04/16/2006 Lithotripsy Right kidney OVARY SURGERY HX 04/10/2013 Excision of right fallopian tube and ovary PAST SURGICAL HISTORY OF 02/16/2003 right ear cartilage repair TONSILLECTOMY AND ADENOIDECTOMY HX 12/17/2012 Current Outpatient Medications Medication Sig Dispense Refill sertraline (ZOLOFT) 100 mg tablet Take 100 mg by mouth once daily. albuterol HFA (PROVENTIL HFA, VENTOLIN HFA) 90 mcg/actuation inhaler Inhale 1 Puff as instructed every 4 hours as needed. promethazine (PHENERGAN) 25 mg tablet Take 25 mg by mouth every 6 hours as needed. traZODone (DESYREL) 100 mg tablet Take 100 mg by mouth. vit/iron fum/folic ac (-FOLIC ACID ORAL) Take by mouth. ondansetron orally disintegrating (ZOFRAN ODT) 4 mg disintegrating tablet Take 1 tablet by mouth every 6 hours as needed for nausea/vomiting. 20 tablet 0 diphenhydrAMINE (SLEEP AID, DIPHENHYDRAMINE,) 50 mg capsule Take 50 mg by mouth every 6 hours as needed. tamsulosin (FLOMAX) 0.4 mg Take 1 capsule by mouth daily at bedtime for 7 days. 7 capsule 0 omeprazole (PRILOSEC) 20 mg capsule Take 1 capsule by mouth once daily for 28 days. 28 capsule 0 diphenhydrAMINE (BENADRYL) 25 mg capsule Take 1 capsule by mouth every 6 hours as needed (with Compazine). 20 capsule 0 gabapentin (NEURONTIN) 100 mg capsule Take 1 capsule by mouth once daily. tiZANidine HCl (ZANAFLEX) 4 mg capsule Take 4 mg by mouth three times daily as needed for Muscle Spasm. levETIRAcetam (KEPPRA) 500 mg tablet Take 500 mg by mouth twice daily. citalopram hydrobromide (CELEXA) 10 mg tablet Take 10 mg by mouth once daily. ibuprofen (MOTRIN) 600 mg tablet Take 600 mg by mouth every 6 hours as needed. oxyCODONE-acetaminophen (PERCOCET) 5-325 mg tablet Take 1 tablet by mouth every 4 hours as needed. traMADol (ULTRAM) 50 mg tablet Take 50 mg by mouth every 6 hours as needed. HYDROCODONE/ACETAMINOPHEN (NORCO ORAL) Take by mouth. cyclobenzaprine (FLEXERIL) 10 mg tablet Take 10 mg by mouth daily at bedtime. levETIRAcetam (KEPPRA) 500 mg tablet Take 0.5 tablets by mouth twice daily. 30 tablet 11 rizatriptan (MAXALT) 10 mg tablet Take 1 tablet by mouth as needed for Migraine Headache (see administration instructions) (at onset of headache. May repeat after 2 hours.). 12 tablet 3 norethindrone-e.estradiol-iron (LO LOESTRIN FE) 1 mg-10 mcg(24) /10 mcg (2) ORAL Tab Take 1 tablet by mouth once daily. No current facility-administered medications for this visit. Allergies As of Date: 11/17/2022 Allergen Noted Reaction SHELLFISH CONTAINING PRODUCTS 04/17/2021 Swelling ADHESIVE 06/17/2011 Rash CODEINE 09/20/2009 Hives and Vomiting FLAGYL [METRONIDAZOLE] 09/27/2021 Other: See Comments MORPHINE 05/23/2022 Hives NSAIDS (NON-STEROIDAL ANTI-INFLAM*09/27/2021 Other: See Comments TOPAMAX [TOPIRAMATE] 09/27/2021 GI Upset Fully Assessed 11/17/2022 Does patient have penicillin allergy: No [facility] NoteHNO ID: [id number] Author: Karolyn Vidal RN Service: ? Author Type: ? Type: Progress Notes Filed: 11/17/2022 2:44 PM Note Text: INITIAL OB ASSESSMENT OB Provider: Karolyn Vidal RN HPI: Kendall is a 36 year old White here to establish Obstetrical Care. Patient's last menstrual period was 10/02/2022 (approximate). from OB Dating Form. Cycles regular was planned and a result of fertility treatments Clomid/Letrizole Complaints: vaginal bleeding and nausea and vomiting OB History T0 L0 SAB0 IAB0 Ectopic0 Multiple0 Live Births1 # 1 - Date: 01/05/21, Sex: Female, Weight: 1 lb 3 oz (0.539 kg), GA: 24w0d, Delivery: , Other, Apgar1: None, Apgar5: None, Living: Demise, Comments: PTL 01/02/2021-transferred to [facility], placental abruption,Baby taken to NICU-Lived for 2 hours. Mom told baby from blood clot in lungs # 2 - Date: None, Sex: None, Weight: None, GA: None, Delivery: None, Apgar1: None, Apgar5: None, Living: None, Comments: None Previous history: Prior : yes x 1 History of 4th degree laceration: No History of shoulder dystocia: No History of Hypertensive disorders including pre-eclampsia, chronic hypertension or gestational hypertension: Yes History of gestational diabetes: No Patient's Risk Screening for delivery: Have you had a prior rossi between 20w and 36w6d?: (!) Yes Did you present in active spontaneous labor or have ruptured membranes, or advanced cervical dilation (greater than or equal to 4 cm) or effacement?: (!) Yes MEDICAL/PSYCHOSOCIAL HISTORY: History of hemorrhage or bleeding concerns: No Thyroid Disease: No History of chronic hypertension: Yes History of pre-existing diabetes: No No results found for: ABORHD No weight on file for this encounter. History of abnormal pap: Yes Prior treatment for cervical dysplasia: LEEP. History of STDs: chlamydia Tobacco use: No Caffeine use: No Drug use: No Alcohol use: No Multivitamin with Folic acid: Yes Bahai or heritage: No Would refuse blood transfusion if medically necessary: No Are you currently employed? No Do you have any history of depression, anxiety, PTSD, eating disorders or other mood problems: No Do you have any safety concerns or history of traumatic events that you would like to discuss with your provider: No SDOH Screening: How often does this describe you? I don't have enough money to pay my bills: Rarely Within the past 12 months, have you worried that your food would run out before you had money to buy more: Never In the past 12 months, has lack of reliable transportation kept you from going to medical appointments or work, or from keeping things needed for daily living: Never In the past 12 months, have you had any concerns about having a place to live, or about the condition or quality of your housing: Never Are there any cultural or spiritual needs we should be aware of: No Depression/Anxiety Screening: admits to symptoms of depression. OB Depression and Anxiety Screening- This Encounter (since 11/16/2022) Over the past 2 weeks have you felt down, depressed, or hopeless? Negative Over the past two weeks, have you felt little interest or pleasure in doing things?? Positive - Further Testing Indicated I have been able to laugh and see the funny side of things. As much as I always could I have looked forward with enjoyment to things. Rather less than I used to I have blamed myself unnecessarily when things went wrong. Not very often I have been anxious or worried for no good reason. Yes, sometimes I have felt scared or panicky for no good reason. Yes, sometimes Things have been getting on top of me. Yes, sometimes I haven't been coping as well as usual I have been so unhappy that I have had difficulty sleeping. Not very often I have felt sad or miserable. Yes, quite often I have been so unhappy that I have been crying. Only occasionally The thought of harming myself has occurred to me. Never [place] Depression Scale Total 12 Feeling nervous, anxious or on edge 1-Several days Not being able to stop or control worrying 1-Several days Anxiety Pre-Screening Total (If >/= 3 additional questions will be reviewed) 2 Genetic Screening: Partner present: No Patient verbalized knowledge of partner family health history: Yes Do you or your partner have any personal or family history of defects not previously discussed: No Do you have history of a complicated by anomaly, genetic condition, or demise: Yes, loss at 24 weeks-lived for 2 hours-abruption ACOG Recommended Screening Screening for early gestational diabetes testing: Criteria for early testing requires elevated BMI plus one other risk factor: No weight on file for this encounter. (risk (more content not included)... [facility]09-28-2023 History of Present illness Narrative* Timmy Mariano MD - 11/13/2022 8:30 AM EDT DAILY PROGRESS NOTE Admit Date: (Not on file) Date of Evaluation: 38:51 AM [facility] IMPRESSION AND PLAN: 36 y/o female w/ h/o HTN, epilepsy, kidney stone and PID here for hypokalemia. She is . She lost her first due to kidney infection. 1) Hypokalemia: K 2.9 -> 3.8 -> 3.3 -> 4.2 -> 4.0 -> 3.9 -> 3.8 -> 4.2 -> 3.8 -> 4.2 -> 3.6 -> 4.1 -> 4.0, stable. Discontinued KCl 20mEQ PO Qday. Discontinue spironolactone. Will get K level. 2) Hematuria: Renal US is unremarkable. Resolved. 3) HTN: SBP 100s. Currently off all meds. 4) Kidney stone: CT abdomen 2 mm nonobstructive left renal calculus. A punctate calculus is seen within the posterior urinary bladder, suggestive of a previously passed stone. Renal US disclosed no hydronephrosis calculus or focal renal abnormality UA disclosed rare crystals. Uric acid 3.4 PTH 27.4 Cr 0.98 -> 0.80 Will get CBC. SUBJECTIVE: Patient seen and examined. Chart, medications, labs reviewed. Appointment on 07/28/2022 Component Date Value Ref Range Status Glucose 07/28/2022 85 70 - 100 MG/DL Final Comment: NORMAL <100 mg/dL PREDIABETES 101-126 mg/dL DIABETES 126 mg/dL or higher BUN 07/28/2022 12 7 - 20 MG/DL Final CREATININE SERUM 07/28/2022 0.80 0.7 - 1.2 MG/DL Final SODIUM 07/28/2022 135 (L) 137 - 145 MMOL/L Final POTASSIUM 07/28/2022 4.0 3.5 - 5.1 MMOL/L Final CHLORIDE 07/28/2022 101 98 - 107 MMOL/L Final Please note: Triglyceride levels of 600mg/dL or higher may positively bias chloride results by approximately 2.1 mmol CARBON DIOXIDE (CO2) 07/28/2022 26 22 - 30 MMOL/L Final Albumin 07/28/2022 4.6 3.5 - 5.0 G/dl Final CALCIUM 07/28/2022 9.3 8.4 - 10.2 MG/DL Final PHOSPHORUS 07/28/2022 3.0 2.5 - 4.5 MG/DL Final ESTIMATED GFR, NON AMER 07/28/2022 87 ml/min/1.73sq.m Final ESTIMATED GFR, 07/28/2022 105 ml/min/1.73sq.m Final GFR COMMENT 07/28/2022 Average GFR for 30-39 years old = 107. Final Comment: Chronic Kidney disease, GFR = <60. Kidney failure, GFR = <15. The GFR estimate is not adjusted for extreme body surface area or acute process, nor has it been validated for women or ethnic groups other than and . Testing performed at [place], [place] [address] MAGNESIUM 07/28/2022 2.2 1.6 - 2.3 MG/DL Final Testing performed at [facility], [place], [place] [address] WBC (WHITE BLOOD COUNT) 07/28/2022 4.5 3.6 - 11.0 10*3/uL Final RBC 07/28/2022 4.12 4.0 - 5.4 10*6/uL Final HEMOGLOBIN (HGB) 07/28/2022 12.5 12.0 - 16.0 G/DL Final HEMATOCRIT (HCT) 07/28/2022 38.5 36.0 - 48.0 % Final MEAN CELL VOLUME 07/28/2022 93.5 80.0 - 100.0 FL Final Mean Cell HGB 07/28/2022 30.3 26.0 - 35.0 PG Final MEAN CELL HGB CONCENTRATION 07/28/2022 32.4 27.0 - 37.0 G/DL Final RBC DISTRIBUTION 07/28/2022 12.6 11.5 - 14.5 % Final PLATELET COUNT 07/28/2022 185 130 - 400 10*3/uL Final MEAN PLATELET VOLUME 07/28/2022 9.4 7.4 - 11.0 FL Final DIFFERENTIAL TYPE 07/28/2022 AUTO DIFF % Final NEUTROPHILS 07/28/2022 54.6 37.0 - 75.0 % Final LYMPHOCYTE 07/28/2022 36.0 20.0 - 55.0 % Final MONOCYTE % 07/28/2022 6.2 0.0 - 10.0 % Final EOSINOPHIL % 07/28/2022 2.3 0.0 - 11.0 % Final BASOPHIL % 07/28/2022 0.9 0.0 - 2.0 % Final Absolute Neutrophil Count 07/28/2022 2.5 1.4 - 6.5 10*3/uL Final LYMPHOCYTES, ABSOLUTE 07/28/2022 1.6 1.2 - 3.4 10*3/uL Final MONOCYTES, ABSOLUTE 07/28/2022 0.3 0.0 - 0.7 10*3/uL Final ABSOLUTE EOSINOPHIL COUNT 07/28/2022 0.1 0.0 - 0.7 10*3/uL Final ABSOLUTE BASOPHIL COUNT 07/28/2022 0.0 0.0 - 0.2 10*3/uL Final PROTEIN MG/DL-URINE 07/28/2022 9 0 - 10 MG/DL Final CREATININE, MG/DL, URINE 07/28/2022 78.0 MG/DL Final NO NORMAL VALUES ESTABLISHED FOR RANDOM SPECIMENS PROTEIN/CREAT RATIO, URINE 07/28/2022 0.1 Final Comment: REFERENCE RANGES <0.2 NORMAL 0.2-3.5 NON-NEPHROTIC >3.5 NEPHROTIC Testing performed at [place] [id number] COLOR, URINE 07/28/2022 YELLOW YELLOW Final APPEARANCE, URINE 07/28/2022 CLEAR CLEAR Final Specific [place], Urine 07/28/2022 1.010 1.010 - 1.025 Final PH URINE 07/28/2022 6.0 5.0 - 7.0 Final Urine Protein 07/28/2022 NEGATIVE NEGATIVE mg/dl Final GLUCOSE, URINE 07/28/2022 NEGATIVE NEGATIVE mg/dl Final KETONES, URINE 07/28/2022 NEGATIVE NEGATIVE mg/dl Final BILIRUBIN, URINE 07/28/2022 NEGATIVE NEGATIVE Final BLOOD, URINE DIPSTICK 07/28/2022 NEGATIVE NEGATIVE Final NITRITES, URINE 07/28/2022 NEGATIVE NEGATIVE Final UROBILINOGEN, URINE 07/28/2022 0.2 0.2 - 1.0 E.U./dL Final LEUKOCYTE ESTERASE, URINE 07/28/2022 NEGATIVE NEGATIVE Final SODIUM, URINE RANDOM 07/28/2022 43 30 - 90 MMOL/L Final Testing performed at [place] [address] LABS Labs-ABGs @ABGROUNDS@ Labs-CBC @CBCBRIEFROUNDS@ Labs-Chem 7([facility]) @[facility]@ Labs-Coags WBC (WHITE BLOOD COUNT) Date Value Ref Range Status 07/28/2022 4.5 3.6 - 11.0 10*3/uL Final 07/03/2022 5.6 3.6 - 11.0 10*3/uL Final 07/02/2022 4.8 3.6 - 11.0 10*3/uL Final HEMOGLOBIN (HGB) Date Value Ref Range Status 07/28/2022 12.5 12.0 - 16.0 G/DL Final 07/03/2022 11.3 (L) 12.0 - 16.0 G/DL Final 07/02/2022 13.4 12.0 - 16.0 G/DL Final HEMATOCRIT (HCT) Date Value Ref Range Status 07/28/2022 38.5 36.0 - 48.0 % Final 07/03/2022 34.9 (L) 36.0 - 48.0 % Final 07/02/2022 41.9 36.0 - 48.0 % Final PLATELET COUNT Date Value Ref Range Status 07/28/2022 185 130 - 400 10*3/uL Final 07/03/2022 165 130 - 400 10*3/uL Final 07/02/2022 203 130 - 400 10*3/uL Final SODIUM Date Value Ref Range Status 07/28/2022 135 (L) 137 - 145 MMOL/L Final 07/03/2022 141 136 - 145 MMOL/L Final 07/02/2022 141 136 - 145 MMOL/L Final CHLORIDE Date Value Ref Range Status 07/28/2022 101 98 - 107 MMOL/L Final Comment: Please note: Triglyceride levels of 600mg/dL or higher may positively bias chloride results by approximately 2.1 mmol 07/03/2022 112 (H) 98 - 107 MMOL/L Final 07/02/2022 103 98 - 107 MMOL/L Final BUN Date Value Ref Range Status 07/28/2022 12 7 - 20 MG/DL Final 07/03/2022 12 7 - 20 MG/DL Final 07/02/2022 13 7 - 20 MG/DL Final POTASSIUM Date Value Ref Range Status 07/28/2022 4.0 3.5 - 5.1 MMOL/L Final 07/03/2022 4.0 3.5 - 5.1 MMOL/L Final 07/02/2022 4.2 3.5 - 5.1 MMOL/L Final CREATININE SERUM Date Value Ref Range Status 07/28/2022 0.80 0.7 - 1.2 MG/DL Final 07/03/2022 0.80 0.52 - 1.04 MG/DL Final 07/02/2022 0.84 0.52 - 1.04 MG/DL Final Glucose Date Value Ref Range Status 07/28/2022 85 70 - 100 MG/DL Final Comment: NORMAL <100 mg/dL PREDIABETES 101-126 mg/dL DIABETES 126 mg/dL or higher 07/03/2022 90 70 - 100 MG/DL Final Comment: NORMAL <100 mg/dL PREDIABETES 101-126 mg/dL DIABETES 126 mg/dL or higher 07/02/2022 92 70 - 100 MG/DL Final Comment: NORMAL <100 mg/dL PREDIABETES 101-126 mg/dL DIABETES 126 mg/dL or higher PT Date Value Ref Range Status 07/03/2022 14.1 11.8 - 14.4 SEC Final 12/23/2018 13.4 11.6 - 14.0 SEC Final 08/01/2018 12.8 11.6 - 14.0 SEC Final PTT Date Value Ref Range Status 08/01/2018 27.7 23.2 - 34.5 SEC Final Comment: THERAPEUTIC RANGE (43.0-65.0) 05/27/2018 29.6 23.2 - 34.5 SEC Final Comment: THERAPEUTIC RANGE (43.0-65.0) 06/25/2017 27.2 23.2 - 34.5 SEC Final Comment: THERAPEUTIC RANGE (43.0-65.0) PROTEIN, TOTAL Date Value Ref Range Status 07/03/2022 6.5 6.3 - 8.2 GM/DL Final 07/02/2022 8.5 (H) 6.3 - 8.2 GM/DL Final 10/07/2021 7.7 6.3 - 8.2 GM/DL Final Albumin Date Value Ref Range Status 07/28/2022 4.6 3.5 - 5.0 G/dl Final 07/03/2022 3.5 3.5 - 5.0 G/dl Final 07/02/2022 4.6 3.5 - 5.0 G/dl Final AST Date Value Ref Range Status 07/03/2022 15 15 - 41 IU/L Final 07/02/2022 22 15 - 41 IU/L Final 10/07/2021 20 15 - 41 IU/L Final ALT Date Value Ref Range Status 07/03/2022 13 (L) 14 - 54 IU/L Final 07/02/2022 16 14 - 54 IU/L Final 10/07/2021 18 14 - 54 IU/L Final BILIRUBIN, TOTAL Date Value Ref Range Status 07/03/2022 0.3 0.2 - 1.2 MG/DL Final CALCIUM Date Value Ref Range Status 07/28/2022 9.3 8.4 - 10.2 MG/DL Final 07/03/2022 8.6 8.4 - 10.2 MG/DL Final 07/02/2022 10.1 8.4 - 10.2 MG/DL Final PHOSPHORUS Date Value Ref Range Status 07/28/2022 3.0 2.5 - 4.5 MG/DL Final 06/30/2022 3.1 2.5 - 4.5 MG/DL Final 12/09/2021 2.7 2.5 - 4.5 MG/DL Final MAGNESIUM Date Value Ref Range Status 07/28/2022 2.2 1.6 - 2.3 MG/DL Final Comment: Testing performed at [place], [place] [address] 07/03/2022 1.9 1.6 - 2.3 MG/DL Final 06/30/2022 2.0 1.6 - 2.3 MG/DL Final Lab Results Component Value Date CREATURINE 78.0 07/28/2022 CREATSERUM 0.80 07/28/2022 BUN 12 07/28/2022 SODIUM 135 (L) 07/28/2022 POTASSIUM 4.0 07/28/2022 CHLORIDE 101 07/28/2022 CO2 26 07/28/2022 ROS: Constitution: No fever, no chill HEENT: No headache, no sinus issues CV: No chest pain, no palpitation Lung: No cough, No SOB Abd: No diarrhea, no constipation Neuro: No seizure, no loss of consciousness Heme: No bleeding, no bruise PHYSICAL EXAM: Wt Readings from Last 3 Encounters: 11/13/22 68.6 kg (151 lb 4.8 oz) 11/12/22 69 kg (152 lb 3.2 oz) 10/29/22 68.9 kg (152 lb) Temp Readings from Last 3 Encounters: 07/03/22 98.2 F (36.8 C) (Oral) 11/11/21 99 F (37.2 C) 06/12/21 97.4 F (36.3 C) BP Readings from Last 3 Encounters: 11/13/22 114/72 11/12/22 108/73 07/30/22 101/67 Pulse Readings from Last 3 Encounters: 11/13/22 81 11/12/22 89 07/30/22 74 Gen: NAD, lying in bed, conversant HEENT: Atraumatic, PERRLA, moist membrane CV: RRR, nl S1 and S2, no m/g/r Lung: CTAB, no wheezing, no crackle Abd: +BS, nontender, no distended Ext: No rash, no clubbing, no cyanosis. No edema. Neuro: CNII-XII grossly intact, 5/5 strength, normal tone Skin: Warm and dry [facility] History of Present illness Narrative* Winsome Cuevas, [employer] - 11/12/2022 11:00 AM EDT Chief Complaint Patient presents with Anxiety Insomnia HPI: Regarding : Reports recent knowledge of , believes she is just over 6 weeks along. States this past week has been tough with some spotting, nausea and diarrhea. [facility] Has another [facility] next Thursday (7 weeks). Regarding Insomnia: She presents today for complaint of insomnia. Onset of symptoms: years. Previously treated with: Trazodone has worked well to help with sleep. Dose of 150mg does well for her, however, with recent knowledge of she was instructed to cut back on this dose. She stopped her zoloft altogether, however, has not decreased the trazodone dose. . Current meds include: trazodone 150mg daily. Frequency of medication use: nightly Pt reports difficulty initiating sleep: Yes Difficulty maintaining sleep: Yes Early awakening: Yes Pt reports or exhibits symptoms of anxiety/depression: Yes Regarding Anxiety/Depression: Kendall presents with the complaint of anxiety/depression which is currently controlled. 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 She reports the following triggers: stress Other symptoms include: depressed mood, insomnia. Denies SI/HI. Current treatment includes: Feels zoloft was working well for her and she had been taking 150mg daily. Since finding she is , she stopped taking this medication. She has been having some problems with nausea and diarrhea. No longer seeing a counselor. Significant medical conditions: see list ROS: Constitutional: Positive for fatigue. Negative for fever. HENT: Negative for congestion, ear pain and sore throat. Eyes: Negative for pain and redness. Respiratory: Negative for cough and shortness of breath. Cardiovascular: Negative for chest pain and palpitations. Gastrointestinal: Positive for abdominal pain, diarrhea and vomiting. Negative for constipation andnausea. Genitourinary: Negative for difficulty urinating and dysuria. Musculoskeletal: Negative for arthralgias and myalgias. Skin: Negative for rash and wound. Neurological: Negative for dizziness and headaches. All other systems reviewed and are negative. Physical Exam: BP 108/73 Pulse 89 Ht 1.626 m (5' 4) Wt 69 kg (152 lb 3.2 oz) SpO2 99% BMI 26.13 kg/m Smoking Status Never Body mass index is 26.13 kg/m . Physical Exam Vitals and nursing note reviewed. Constitutional: Appearance: Normal appearance. HENT: Head: Normocephalic and atraumatic. Eyes: Conjunctiva/sclera: Conjunctivae normal. Pupils: Pupils are equal, round, and reactive to light. Pulmonary: Effort: Pulmonary effort is normal. No respiratory distress. Neurological: Mental Status: She is alert and oriented to person, place, and time. Psychiatric: Mood and Affect: Mood normal. Behavior: Behavior normal. Assessment/Plan: 1. Generalized anxiety disorder -Start back on lower dose sertraline 50mg daily. -Recommend regular exercise for stress relief. - Sertraline 50 MG tablet; Take 1 tablet by mouth daily. Dispense: 30 tablet; Refill: 1 2. Psychophysiological insomnia -Chronic and stable. Reduce dose to 100mg nightly with a goal of weaning off of this medication. - trazodone 100 MG tablet; Take 1 tablet by mouth every evening at 6 PM. Dispense: 30 tablet; Refill: 1 3. Incidental -Follow up with [facility]. Orders and follow up as documented in patient record; Patient was advised to call with any questions or concerns. If symptoms worsen patient was advised to follow up in our office or the Emergency Dept. Benefits, Risks, Contraindications, and Complications of recommended treatments were explained the patient understands and agrees to proceed with plan. CHRISTELLE Peace 11/16/2022 * Lyssa Harris LPN - 11/12/2022 11:00 AM EDT Nurse Note: Review of Systems Constitutional: Positive for fatigue. Negative for fever. HENT: Negative for congestion, ear pain and sore throat. Eyes: Negative for pain and redness. Respiratory: Negative for cough and shortness of breath. Cardiovascular: Negative for chest pain and palpitations. Gastrointestinal: Positive for abdominal pain, diarrhea and vomiting. Negative for constipation andnausea. Genitourinary: Negative for difficulty urinating and dysuria. Musculoskeletal: Negative for arthralgias and myalgias. Skin: Negative for rash and wound. Neurological: Negative for dizziness and headaches. All other systems reviewed and are negative. documented in this [facility]09-27-2023 Instructions* Patient Instructions* CHRISTELLE Peace - 11/12/2022 11:00 AM EDT Start back on zoloft 50mg daily. Reduce trazodone to 100mg nightly x 4 weeks then cut them in half to 50mg nightly. Patient was advised to call with any questions or concerns. If symptoms worsen patient was advised to follow up in our office or the Emergency Dept. Benefits, Risks, Contraindications, and Complications of recommended treatments were explained the patient understands and agrees to proceed with plan. documented in this [facility]09-26-2023 Miscellaneous Notes* Telephone Encounter - Sudeep Paredes MD - 11/11/2022 8:57 AM EDT Noted & agree Sudeep Paredes MD * Telephone Encounter - Cassy Meneses RN - 11/11/2022 8:21 AM EDT LMP 10/05 Approximately 5w2d See 11/09 phone note. Patient called in today with RLQ pain that radiates to her back. Pain rate of 9 out of 10. Pain is intermittent. Nauseated, chilled, and diarrhea. Having dark brown like coffee grounds vaginal bleeding when she wipes. Patient states she has a hx of kidney stones. Instructed patient to go to ER for evaluation given the severity of her pain. Cassy Meneses RN [facility] Miscellaneous Notes* Telephone Encounter - Charlotte Garcia MD - 11/10/2022 10:05 AM EDT Filed thank you * Telephone Encounter - Noe Francisco RN - 11/10/2022 9:21 AM EDT Patient notified. No available appointments on 11/24 at time of her NOB. Scheduled u/s for 11/21/22. Please file order. Noe Francisco RN * Telephone Encounter - Charlotte Garcia MD - 11/09/2022 11:16 PM EDT Pt in [facility] ER 11/09/22 for spotting and RLQ pain. 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 HCG quant 7,926. Serial HCG quants are rising appropriately. She will need repeat US in 2 weeks at time of appointment [facility] Discharge summary Author Quique Gross [facility] November 09, 2022 10:16pm Note Date/Time November 09, 2022 5:53pm [facility] Medical Records Department [address] [place] [address] Emergency Department Summary 11/09/22 MR#: [id number] Acct: [id number] Name: KENDALL VASQUES Rep #:[id number] : 1985 36 From: Henry ROSARIO PCP: LUPE CUEVAS Status:REG ER Location: ED HPI <MÓNICA Murillo - Last Filed: 11/09/22 20:31> HPI - Female History of Present Illness Chief Complaint: Vag Bleeding Narrative Narrative: Patient is a 36-year-old female who is a 2 para 0 who had an spontaneousabortion at 24 weeks. Patient presents emerged part with 1 week of generalized abdominal pain, spotting of brown discharge. Patient has been seen in [facility], and is getting recent hCG quantitative blood work. Per the patient, it has beengoing up and been normal. Patient estimates her at 5 to 6 weeks. Patient has pain to the lower abdomen. PFSH <MÓNICA Murillo - Last Filed: 11/09/22 20:31> PFS Medical History Abdominal pain Alcohol use Anemia Anxiety Back pain Bronchitis Bruising Depression Dietary restriction Dysautonomia-like disorder Easy bruising History of echocardiogram History of edema History of IBS History of irregular heartbeat Hypertension Hypoglycemia Kidney disease Kidney stones Migraines Nephrolithiasis Non-smoker Restless legs Seizures Shortness of breath on exertion Sleep apnea Wears glasses Home Medications albuterol sulfate 90 mcg/actuation aerosol inhaler (Ventolin HFA) 1 - 2 puff inhalation Q6H PRN PRN Asthma 03/22/13 [History Last Taken 05/24/14 08:49] trazodone 150 mg PO/SL QHS 12/31/20 [History Last Taken 06/05/21] ondansetron 4 mg disintegrating tablet 4 mg PO Q8H PRN nausea and vomiting #10 tabs 04/17/21 [Rx Last Taken 06/06/21] diphenhydramine 25 mg-acetaminophen 500 mg tablet (Tylenol PM Extra Strength) 1 tab PO QHS 10/22/21 [History Last Taken Unknown] 17-iron(35 mg-5 mg)-folic acid 1.2 mg-fish oil 400 mg capsule 1 cap PO DAILY 10/22/21 [History Last Taken Unknown] Allergy/AdvReac Type Severity Reaction Status Date / Time baclofen Allergy Severe incontinenc Verified 11/09/22 16:31 e codeine Allergy Hives Verified 11/09/22 16:31 metronidazole [From Flagyl] Allergy Shortness Verified 11/09/22 16:31 of breath morphine Allergy Hives Verified 11/09/22 16:31 shellfish derived Allergy Angioedema Verified 11/09/22 16:31 topiramate [From Topamax] Allergy Other Verified 11/09/22 16:31 tramadol AdvReac Severe seizures Verified 11/09/22 16:31 adhesive AdvReac Rash Verified 11/09/22 16:31 NSAIDS (Non-Steroidal AdvReac PT UNSURE Verified 11/09/22 16:31 Anti-Inflamma OF REACTION Family History Father No cardiac disease Mother No cardiac disease Other Arthritis Asthma Blood clot in vein Bowel disease Breast cancer CVA (cerebral vascular accident) Cervical cancer Depression Diabetes High cholesterol Hypertension Seizures Suicidal ideation Surgical History Hx of laparoscopy Previous section S/P breast lumpectomy S/P removal of right ovary S/P tonsillectomy Social History household members: spouse Smoking Status: Never smoker alcohol intake: current alcohol intake frequency: holidays/special occasions only substance use type: does not use what type of physical activity do you participate in: none ROS <MÓNICA Murillo - Last Filed: 11/09/22 20:31> ROS ED ROS Narrative Constitutional: Negative for fever, chills, weight loss, weakness Eyes: Negative for vision loss, vision change, double vision ENT: Negative for any sore throat, ear pain, congestion Cardiovascular: Negative for any chest pain, tightness, palpitations Respiratory: Negative for any cough, sputum production, hemoptysis, dyspnea, dyspnea on exertion, orthopnea Gastrointestinal: Negative for any nausea, vomiting, diarrhea, constipation, blood in stool, blood in vomit. Positive for abdominal pain : Negative for any urinary frequency, dysuria, retention, blood in urine. Positive for vaginal bleeding Muscle skeletal: Negative for any muscle joint pain, stiffness, myalgias, arthralgias, neck pain, back pain Neurological: Negative for any headache, syncope, numbness or tingling, dizziness Skin: Negative for any rashes, lumps, itching, abrasions, lacerations Psychiatric: Negative for any depression, anxiety, stress, suicidal ideation, homicidal ideation Hematologic: Negative for any easy bruising, excessive bruising, easy bleeding Allergies: Negative for any eczema, hives, rash EXAM <MÓNICA Murillo - Last Filed: 11/09/22 20:31> Physical Exam Narrative Exam Narrative: Vital signs reviewed. HEET: Head normocephalic atraumatic, TMs clear bilaterally. Posterior pharynx is clear, moist mucous membranes. Nares clear bilaterally. Neck: Supple with no lymphadenopathy or tenderness. No signs of meningismus, negative jolt sign. Cardiac: Regular rate and rhythm no murmurs gallops or rubs, equal peripheral pulses bilaterally. Respiratory: Lungs clear to auscultation bilaterally. No chest tenderness. Abdomen: Soft, nondistended. No abdominal bruit or pulsatile masses. No hepatosplenomegaly. Positive for pain on palpation to the lower abdomen. No peritoneal signs, no guarding. Extremities: No peripheral edema, no signs of gross trauma or deformity. Activefull range of motion of all extremities. Neuro: Cranial nerves II through XII intact, no focal neurological deficits. Skin: Clean dry and intact with no rash, purpura, petechiae, vesicles or pustules. Backs/flank: No CVA tenderness, no midline spinal tenderness, no deformity. Psych: Normal mood and affect. No SI, HI or acute psychosis. Const Vital Signs: 11/09/22 16:31 Temperature 97.8 F Temperature Source Temporal Pulse Rate 96 Respiratory Rate 18 Blood Pressure 106/68 Blood Pressure Mean 80 Pulse Ox 100 Oxygen Delivery Method Room Air Positive well nourished and well developed General Appearance ED: well developed <Dr. Quique Gross MD - Last Filed: 11/09/22 22:16> Physical Exam Const Vital Signs: 11/09/22 16:31 Temperature 97.8 F Temperature Source Temporal Pulse Rate 96 Respiratory Rate 18 Blood Pressure 106/68 Blood Pressure Mean 80 Pulse Ox 100 Oxygen Delivery Method Room Air MDM <MÓNICA Murillo - Last Filed: 11/09/22 20:31> MDM Lab Data Labs: Laboratory Results - last 24 hr 11/09/22 11/09/22 16:58 17:16 WBC 9.1 RBC 4.02 L Hgb 12.1 Hct 38.5 MCV 95.8 MCH 30.1 MCHC 31.4 L RDW Std Deviation 46.3 H RDW Coeff of [place] 13.0 Plt Count 236 MPV 10.0 Immature Gran % (Auto) 0.400 Neut % (Auto) 61.4 Lymph % (Auto) 29.6 [place] % (Auto) 6.8 Eos % (Auto) 1.3 Baso % (Auto) 0.5 Absolute Neuts (auto) 5.6 Absolute Lymphs (auto) 2.70 Nucleated RBC % 0 HCG, Quant 7926 H Urine Color Yellow Urine Clarity Sl. Cloudy Urine pH 6.0 Ur Specific [place] 1.025 Urine Protein Negative Urine Glucose (UA) Normal Urine Ketones 15 H Urine Occult Blood 150 H Urine Nitrite Negative Urine Bilirubin Negative Urine Urobilinogen Normal Ur Leukocyte Esterase Negative Urine RBC 0 SEEN Urine WBC 0-5 SEEN Ur Squamous Epith Cells 5-10 SEEN Urine Bacteria 1+ Urine Mucus 0 SEEN Radiography Diagnostic Testing: Clinical Impression(s) from Imaging Studies Obstetrics Ultrasound 11/09/22 16:48 IMPRESSION: There is a moderate amount of fluid in the cul de sac. Small fluid collection within the uterus. Differential diagnosis includes early IUP with embryonic pole and yolk sac below the limits of sonographic resolution, blighted ovum and pseudo-gestational sac. Correlation with serum quantitative beta-hCG and follow up ultrasound is recommended. The possibility of ectopic cannot be excluded on the basis of this exam. Small subchorionic hemorrhage. Electronically Signed: Kenneth Hare MD at 19:31 EDT Reading Location ID and State: [facility] / [place] , Service support , Treatment and Re-Evaluation Narrative: Patient appears generally well, patient appears nontoxic, vital signs are stable. Presents to the emergency department for concern for miscarriage secondary to vaginal spotting, lower abdominal pain. Patient will receive a transvaginal ultrasound. Patient is given IV fluids, IV Zofran. Basic laboratory values will be done as well as hCG quantitative. Patient's labs showed a white blood count 9.1, hemoglobin of 12.1 with a hematocrit of 38.5, patient's hCG quant was 7926 this is elevated from what patient previously told me. Patient is a positive. Urinalysis showed 1+ bacteria however there is 5-10 squamous cells, negative nitrates, negative leukocytes. Patient's transvaginal ultrasound shows that there is a moderate amount of fluid in the cul-de-sac. Small fluid collection within the uterus. Differential diagnosis includes early IUP with embryonic pole and yolk sac although the limits of sonographic resolution. Correlate with serum quantitative beta hCG and follow-up ultrasound recommended. The possibility of ectopic cannot be excluded the basis of this exam. Small some chronichemorrhage. Patient will be evaluated by [facility]. My attending did speak with the [facility] physician, she will come up and evaluate the patient. <Dr. Quqiue Gross MD - Last Filed: 11/09/22 22:16> [facility] MDM Narrative Medical decision making narrative: I have personally performed a face to face assessment of the patient and have reviewed the ANA CRISTINA Note. I performed a substantive portion of the visit including all aspects of the following. My ayala findings include: History is 36-year-old female G2, P0 with a delivery at 24 weeks of past. Currently is around 6 weeks having vaginal bleeding and pelvic pain. Has had no [facility] care as of yet for this . Denies any dysuria. Patient has had her right tube and ovary resected due to a tubo-ovarian abscess. Exam is [female vital signs stable afebrile. Does not look septic toxic. No distress. NT exam is unremarkable. Lungs clear to auscultation. Heart rate rhythm benign abdomen soft nondistended normal bowel sounds. Minimal left suprapubic tenderness. No peritoneal signs. Moving all 4 extremities. Awake and alert.] Medical Decision Making [-year-old female first trimester with vaginal bleeding and pelvic pain. Ectopic versus miscarriage versus with bleeding. Labs are being obtained with an ultrasound. Her blood type is a positive.] Other additions or changes: [None] Dr. Yeboah is well of the [facility] group was consulted. She came down the ER evaluate the patient. She reviewed the ultrasound and labs. She reviewed the labs in their office. She is comfortable with patient being discharged home. Her quants are increasing. They will follow her up in the office this week. Currently we do not believe this to be an ectopic. I did discuss with the patient if she had increasing pain or heavier bleeding return. Also the risk of this being a threatened miscarriage. Patient doing well at 10:12 PM. Abdomen benign. She is comfortable being discharged home. History & Record Review Discussion w/independent historian: Patient Lab Data Attestation: I reviewed the patient's lab results. Lab results narrative: CBC normal. White count 9. H&H 12.1 and 38. Platelets 236. UA shows no white or red cells. No nitrates. Quantitative hCG was 7926. Blood type is a positive. Labs: Laboratory Results - last 24 hr 11/09/22 11/09/22 16:58 17:16 WBC 9.1 RBC 4.02 L Hgb 12.1 Hct 38.5 MCV 95.8 MCH 30.1 MCHC 31.4 L RDW Std Deviation 46.3 H RDW Coeff of [place] 13.0 Plt Count 236 MPV 10.0 Immature Gran % (Auto) 0.400 Neut % (Auto) 61.4 Lymph % (Auto) 29.6 [place] % (Auto) 6.8 Eos % (Auto) 1.3 Baso % (Auto) 0.5 Absolute Neuts (auto) 5.6 Absolute Lymphs (auto) 2.70 Nucleated RBC % 0 HCG, Quant 7926 H Urine Color Yellow Urine Clarity Sl. Cloudy Urine pH 6.0 Ur Specific [place] 1.025 Urine Protein Negative Urine Glucose (UA) Normal Urine Ketones 15 H Urine Occult Blood 150 H Urine Nitrite Negative Urine Bilirubin Negative Urine Urobilinogen Normal Ur Leukocyte Esterase Negative Urine RBC 0 SEEN Urine WBC 0-5 SEEN Ur Squamous Epith Cells 5-10 SEEN Urine Bacteria 1+ Urine Mucus 0 SEEN Radiography Diagnostic Testing: Clinical Impression(s) from Imaging Studies Obstetrics Ultrasound 11/09/22 16:48 IMPRESSION: There is a moderate amount of fluid in the cul de sac. Small fluid collection within the uterus. Differential diagnosis includes early IUP with embryonic pole and yolk sac below the limits of sonographic resolution, blighted ovum and pseudo-gestational sac. Correlation with serum quantitative beta-hCG and follow up ultrasound is recommended. The possibility of ectopic cannot be excluded on the basis of this exam. Small subchorionic hemorrhage. Electronically Signed: Kenneth Hare MD at 19:31 EDT , Discharge Plan Triage Chief Complaint: Vag Bleeding ED Midlevel Provider: Henry Barreto ED Provider: Quique Gross Dx/Rx/DC Orders Clinical Impression: Threatened miscarriage, First trimester , Vaginal bleeding Instructions: ED Possible Miscarriage ... Prescriptions: No Action albuterol sulfate [Ventolin HFA] 1 INHALER inhaler 1 - 2 puff inhalation Q6H PRN PRN (Reason: Asthma) trazodone 150 mg PO/SL QHS ondansetron 4 mg tablet,disintegrating 4 mg PO Q8H PRN (Reason: nausea and vomiting) Qty: 10 0RF diphenhydramine-acetaminophen [Tylenol PM Extra Strength] 25-500 mg Tablet 1 tab PO QHS Rx Instructions: administer while awake prenat vit [id number],6 35-5-1.2-400 mg Capsule 1 cap PO DAILY Primary Care Provider: LUPE CUEVAS Referrals: Charlotte Garcia DO [Med Staff - Active Staff] - As soon as possible Care Physician,No Primary [Non-Staff] - Activity Restrictions/Additional Instructions: Plenty of fluids and rest. Tylenol for any pain. Follow-up with the [facility] office this week to be reevaluated. Currently for trimester . Anytime you are bleeding there is a risk of a threatened miscarriage. Return to the emergency department if you have severe pain or heavy bleeding with clots. Disposition Disposition: Home, Self Care What to do if you have Problems For any increased pain, shortness of breath, bleeding, nausea or vomiting, chestpain, or any unexpected problems, contact your Primary Care Provider. Call [facility] ([phone]) or report to the closest Emergency Room. Call 911 if necessary. 11/09/222030 <Electronically signed by Henry ROSARIO> Cosigner Signature (if applicable): 11/09/222215 <Electronically signed by Quique Gross MD> CC: LUPE CUEVAS ~ Signed [facility] Work Phone: [phone] 716-715709-24-2023 Hospital Discharge instructions Additional Instructions Plenty of fluids and rest. Tylenol for any pain. Follow-up with the [facility] office this week to be reevaluated. Currently for trimester . Anytime you are bleeding there is a risk of a threatened miscarriage. Return to the emergency department if you have severe pain or heavy bleeding with clots.[facility] Work Phone: [phone]) 176-357609-20-2023 NoteHNO ID: [id number] Author: Cassy Meneses RN Service: ? Author Type: ? Type: Progress Notes Filed: 11/05/2022 2:58 PM Note Text: Received records from [place] [facility]. Placed in PNOB mailbox for upcoming PNOB on 11/17. [facility] Meneses [facility] Discharge summary Author Elver Yi [facility] August 18, 2022 12:52pm Note Date/Time August 18, 2022 10:[address] [facility] Medical Records Department [address] [place] [address] Emergency Department Summary 08/18/22 MR#: [id number] Acct: [id number] Name: KENDALL VASQUES Rep #:[id number] : 1985 36 From: Elver Yi MD PCP: Status:REG ER Location: ED HPI History of Present Illness Chief Complaint: Asthma Informant: patient Narrative Narrative: Patient has a history of reflux and asthma. She states she had been feeling well all day yesterday. She woke up in the middle of the night, felt like she vomited up some acid and felt like that was due to reflux which is happened before, she felt like she may have aspirated it and has been short of breath ever since. She feels like she is having congestion and discomfort in her chest, not her throat and she has no pain in her throat. She states she alreadytook some Carafate and Protonix prior to coming here. [facility] Medical History Abdominal pain Alcohol use Anemia Anxiety Back pain Bronchitis Bruising Depression Dietary restriction Dysautonomia-like disorder Easy bruising History of echocardiogram History of edema History of IBS History of irregular heartbeat Hypertension Hypoglycemia Kidney disease Kidney stones Migraines Nephrolithiasis Non-smoker Restless legs Seizures Shortness of breath on exertion Sleep apnea Wears glasses Home Medications albuterol sulfate 90 mcg/actuation aerosol inhaler (Ventolin HFA) 1 - 2 puff inhalation Q6H PRN PRN Asthma 03/22/13 [History Last Taken 05/24/14 08:49] promethazine 25 mg tablet 25 mg PO QHS PRN Nausea 02/28/20 [History Last Taken 05/30/21] trazodone 150 mg PO/SL QHS 12/31/20 [History Last Taken 06/05/21] ondansetron 4 mg disintegrating tablet 4 mg PO Q8H PRN nausea and vomiting #10 tabs 04/17/21 [Rx Last Taken 06/06/21] lorazepam 0.5 mg tablet 0.5 mg PO DAILY PRN PRN Anxiety 06/06/21 [History Last Taken 05/23/21] sertraline 100 mg tablet 150 mg PO DAILY 06/06/21 [History Last Taken 06/06/21] sucralfate 100 mg/mL oral suspension 10 ml PO Q6H #400 mL 10/20/21 [Rx Last Taken Unknown] diphenhydramine 25 mg-acetaminophen 500 mg tablet (Tylenol PM Extra Strength) 1 tab PO QHS 10/22/21 [History Last Taken Unknown] 17-iron(35 mg-5 mg)-folic acid 1.2 mg-fish oil 400 mg capsule 1 cap PO DAILY 10/22/21 [History Last Taken Unknown] esomeprazole magnesium 20 mg capsule,delayed release (Nexium 24HR) 20 mg PO DAILY PRN GERD 10/25/21 [History Last Taken Unknown] hydrocodone-acetaminophen 5-325mg 5mg-325mg 1 tab PO Q6H PRN PRN Pain 3 days #10TABLETS 02/24/22 [Rx Last Taken Unknown] Allergy/AdvReac Type Severity Reaction Status Date / Time baclofen Allergy Severe incontinenc Verified 08/18/22 09:58 e codeine Allergy Hives Verified 08/18/22 09:58 metronidazole [From Flagyl] Allergy Shortness Verified 08/18/22 09:58 of breath morphine Allergy Hives Verified 08/18/22 09:58 ondansetron [From Zofran] Allergy Hives Verified 08/18/22 09:58 shellfish derived Allergy Angioedema Verified 08/18/22 09:58 topiramate [From Topamax] Allergy Other Verified 08/18/22 09:58 tramadol AdvReac Severe seizures Verified 08/18/22 09:58 adhesive AdvReac Rash Verified 08/18/22 09:58 NSAIDS (Non-Steroidal AdvReac PT UNSURE Verified 08/18/22 09:58 Anti-Inflamma OF REACTION Family History Father No cardiac disease Mother No cardiac disease Other Arthritis Asthma Blood clot in vein Bowel disease Breast cancer CVA (cerebral vascular accident) Cervical cancer Depression Diabetes High cholesterol Hypertension Seizures Suicidal ideation Surgical History Hx of laparoscopy Previous section S/P breast lumpectomy S/P removal of right ovary S/P tonsillectomy Social History household members: spouse Smoking Status: Never smoker alcohol intake: current alcohol intake frequency: holidays/special occasions only substance use type: does not use what type of physical activity do you participate in: none ROS ROS ED Constitutional Constitutional ED: Denies chills or fever(s) Eyes Eyes: Denies change in vision or diplopia ENT ENT ED: Denies ear pain, rhinorrhea or sore throat Cardiovascular Cardiovascular: Reports chest pain; Denies palpitations Respiratory/Chest Respiratory/Chest: Reports cough and dyspnea Gastrointestinal Gastrointestinal: Reports as per HPI and vomiting; Denies abdominal pain, diarrhea or nausea Genitourinary Genitourinary ED: Denies dysuria or hematuria Musculoskeletal Musculoskeletal: Denies back pain or neck pain Integumentary Denies abscess or rash Neurologic Neurologic: Denies headache(s), paresthesias or weakness Psychiatric Psychiatric: Reports anxiety; Denies suicidal thoughts EXAM Physical Exam Const Vital Signs: 08/18/22 09:54 08/18/22 09:59 08/18/22 09:59 Temperature 97.1 F L Temperature Source Temporal Pulse Rate 104 H 104 H Respiratory Rate 24 H 15 Respiratory Effort Normal Respiratory Pattern Blood Pressure 140/71 H Blood Pressure Mean 94 Pulse Ox 99 99 Oxygen Delivery Method Room Air Room Air Room Air 08/18/22 10:05 08/18/22 10:53 Temperature Temperature Source Pulse Rate 110 H 84 Respiratory Rate 20 H 12 Respiratory Effort Respiratory Pattern Normal Blood Pressure 103/68 Blood Pressure Mean 79 Pulse Ox 100 Oxygen Delivery Method Room Air Positive well nourished and well developed Constitutional Narrative: Patient appears to intermittently begin in some respiratory distress with stridor versus inspiratory wheezing, and also has some expiratory wheezing. General Appearance ED: well developed HEENT Reports moist mucous membranes HEENT Narrative: Posterior oropharynx clear, no trismus. normocephalic and atraumatic Eyes PERRL and EOMs intact bilaterally Neck full ROM, no lymphadenopathy and supple Resp Resp Narrative: Inspiratory and expiratory wheezing, plus or minus stridor. See above. There are occasions where patient is conversive in full sentences, and takes a deep breath in between sentences without any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 Cognitve Behavioral Therapy is proven to help. [facility] History of Present illness Narrative* Winsome Cuevas, CAR SWEEPER-DECK MECHANIC - 06/11/2022 10:20 AM EDT Chief Complaint Patient presents with Anxiety Would like a refill of ativan to have enough to keep at work and at home. Insomnia Abdominal Pain Last evening had a really sharp pain in the top of stomach that came around to the sides. Stated took some pepcid and that seemed to help it Skin Problem Rash on inner left arm started about two weeks ago Tingling Bilateral hands. Started right after the seizure Nausea HPI: Regarding Insomnia: She presents today for complaint of insomnia. Onset of symptoms: years. Previously treated with: Trazodone has worked well to help with sleep. Dose of 150mg does well for her. Medication helps her get to sleep and she sleeps 4-5 hours at a stretch. Her main issue now is recurrent nightmares. Waking up multiple times per week completely wet from sweating and terrified from her bad dreams. Current meds include: trazodone 150mg daily. Frequency of medication use: nightly Pt reports difficulty initiating sleep: Yes Difficulty maintaining sleep: Yes Early awakening: Yes Pt reports or exhibits symptoms of anxiety/depression: Yes. Regarding Abdominal Pain: Reports sharp pain in upper abdomen last night that then wrapped around to her sides. Took Pepcid and this helped relieve symptoms. Reports increased stress and occasionally heartburn. Regarding Anxiety/Depression: Kendall presents with the complaint of anxiety/depression which is currently uncontrolled. Feels heranxiety is increased in the recent weeks. Feels more depression symptoms with mother's day approaching (she had a miscarriage in 2020 and has struggled with depression since). 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 She reports the following triggers: stress Other symptoms include: depressed mood, insomnia. Denies SI/HI. Current treatment includes: started on zoloft while in the hospital (01/06). Feels it is working very well for her. Has been taking zoloft 100mg daily (decreased from 150mg daily) and feels it has worked but is noting increased anxiety presently. Significant medical conditions: see list Skin Rash: Left forearm with recurrent rash over the past few weeks. Small area and sometimes itches. Using OTC creams and this helps some. Denies spreading. No new detergent, lotions, soap, etc. Tingling in Hand: Left hand only ever since seizure. Denies loss of nurses' registry director strength or pain. Not sure if she injured her wrist during last seizure. States she wakes up with wrist tucked under her body at strange angles sometimes. No previous investigation or remedies tried. ROS: Constitutional: Positive for fatigue. Negative for fever. HENT: Negative for congestion, ear pain and sore throat. Eyes: Negative for pain and redness. Respiratory: Negative for cough and shortness of breath. Cardiovascular: Negative for chest pain and palpitations. Gastrointestinal: Positive for abdominal pain and diarrhea. Negative for constipation, nausea and vomiting. Genitourinary: Negative for difficulty urinating and dysuria. Musculoskeletal: Positive for arthralgias and myalgias. Skin: Positive for rash. Negative for wound. Neurological: Negative for dizziness and headaches. All other systems reviewed and are negative. Physical Exam: BP 104/75 Pulse 96 Wt 65.9 kg (145 lb 4.8 oz) BMI 24.94 kg/m Smoking Status Never Body mass index is 24.94 kg/m . Physical Exam Vitals and nursing note reviewed. Constitutional: Appearance: Normal appearance. She is well-developed and normal weight. HENT: Head: Normocephalic and atraumatic. Eyes: Conjunctiva/sclera: Conjunctivae normal. Pupils: Pupils are equal, round, and reactive to light. Cardiovascular: Pulses: Radial pulses are 2+ on the right side and 2+ on the left side. Pulmonary: Effort: Pulmonary effort is normal. No respiratory distress. Musculoskeletal: Right wrist: Normal. Left wrist: Normal. Skin: Findings: Rash present. Rash is papular (slightly dry rash left forearm. 2 x 0.5 in size.). Neurological: Mental Status: She is alert and oriented to person, place, and time. Psychiatric: Attention and Perception: Attention normal. Mood and Affect: Mood is depressed. Behavior: Behavior normal. Assessment/Plan: 1. Generalized anxiety disorder -Increase sertraline to 150mg daily. -ativan to take sparingly, as needed for high anxiety. -Continue counseling. - Sertraline 100 MG tablet; Take 1.5 tablets by mouth daily. Dispense: 45 tablet; Refill: 1 - LORazepam (Ativan) 0.5 MG tablet; Take 1 tablet by mouth 2 times daily as needed for Anxiety for up to 20 days. Dispense: 14 tablet; Refill: 0 2. Psychophysiological insomnia -Stop trazodone and start prazosin for nightmares. - Prazosin 1 MG capsule; Take 1mg at bedtime x 1 week then increase weekly to max dose of 3mg if needed Dispense: 90 capsule; Refill: 1 3. Nausea -Refill on promethazine to take for nausesa. - Promethazine 25 MG tablet; Take 1 tablet by mouth every 6 hours as needed. Dispense: 12 tablet; Refill: 0 4. Nightmares -Stop trazodone and take prazosin for nightmares. - Prazosin 1 MG capsule; Take 1mg at bedtime x 1 week then increase weekly to max dose of 3mg if needed Dispense: 90 capsule; Refill: 1 5. Heartburn -Attempt omeprazole qam to help with heartburn symptoms. - omeprazole [address] capsule; Take 1 capsule by mouth daily. Dispense: 30 capsule; Refill: 1 6. Hand Paresthesias: -Recommend nighttime wrist splints to help with hand numbness. If no improvement, will consider EMGand ortho referral. *Follow up in 6 weeks.* Orders and follow up as documented in patient record; Patient was advised to call with any questions or concerns. If symptoms worsen patient was advised to follow up in our office or the Emergency Dept. Benefits, Risks, Contraindications, and Complications of recommended treatments were explained the patient understands and agrees to proceed with plan. Winsome Cuevas APRN-DECK MECHANIC 06/11/2022 * Fely Rousseau - 06/11/2022 10:20 AM EDT Nurse Note: Review of Systems Constitutional: Positive for fatigue. Negative for fever. HENT: Negative for congestion, ear pain and sore throat. Eyes: Negative for pain and redness. Respiratory: Negative for cough and shortness of breath. Cardiovascular: Negative for chest pain and palpitations. Gastrointestinal: Positive for abdominal pain and diarrhea. Negative for constipation, nausea and vomiting. Genitourinary: Negative for difficulty urinating and dysuria. Musculoskeletal: Positive for arthralgias and myalgias. Skin: Positive for rash. Negative for wound. Neurological: Negative for dizziness and headaches. All other systems reviewed and are negative. [facility] Instructions* Patient Instructions* CHRISTELLE Peace - 06/11/2022 10:20 AM EDT *Refills on medications. Start omeprazole for the next month for heartburn. Stop trazodone and take prazosin instead. Consider wearing a wrist splint at night. Counseling recommended. Increase zoloft to 150mg daily.* Patient was advised to call with any questions or concerns. If symptoms worsen patient was advised to follow up in our office or the Emergency Dept. Benefits, Risks, Contraindications, and Complications of recommended treatments were explained the patient understands and agrees to proceed with plan. [facility] Myers [facility] March 17, 2022 8:16am Note Date/Time March 17, 2022 8 :16am [facility] Medical Records Department [address] [place] [address] Instructions for Home/Discharge Instructions 03/17/22 0815 MR#: [id number] Acct: [id number] Name: KENDALL VASQUES Rep #:[id number] : 1985 36 From: Jose Daniel Myers MD PCP: Status:[facility] [place] Discharge Instructions Diet Discharge Diet: No restrictions Activity Discharge Activity: Return to Normal Activity, May Shower and - (No tub baths for 2 weeks) May resume sexual activity in: 4-6 weeks Lifting Restrictions: No lifting over 25 pounds for 2 to 3 weeks Dressing / Incision Call your doctor if your incision/area has: Continuous Slow Oozing and Foul Smelling Discharge Call your doctor if you observe: Fever of 101 or Higher, Shortness of breath andChest pain Follow Up Care Please Follow Up With: Jose Daniel Myers MD When: 2 weeks postoperatively Test Results: Test results from this visit will be discussed in further detail at your follow- up appointment, if applicable. Discharge Plan Admission Attending Provider: Jose Daniel Myers Primary Care Provider: WINSOME CUEVAS Discharge Orders/Prescriptions Prescriptions: No Action albuterol sulfate [Ventolin HFA] 1 INHALER inhaler 1 - 2 puff inhalation Q6H PRN PRN (Reason: Asthma) promethazine 25 MG tablet 25 mg PO QHS PRN (Reason: Nausea) trazodone 150 mg PO/SL QHS ondansetron 4 mg tablet,disintegrating 4 mg PO Q8H PRN (Reason: nausea and vomiting) Qty: 10 0RF sertraline 100 mg tablet 150 mg PO DAILY lorazepam 0.5 mg Tablet 0.5 mg PO DAILY PRN PRN (Reason: Anxiety) diphenhydramine-acetaminophen [Tylenol PM Extra Strength] 25-500 mg Tablet 1 tab PO QHS Rx Instructions: administer while awake prenat vit [id number],6 35-5-1.2-400 mg Capsule 1 cap PO DAILY sucralfate 100 mg/mL suspension 10 ml PO Q6H Qty: 400 0RF esomeprazole magnesium [Nexium 24HR] 20 mg Capsule,Delayed Release(Dr/Ec) 20 mg PO DAILY PRN (Reason: GERD) hydrocodone-acetaminophen [hydrocodone-acetaminophen] 5-325 mg tablet 1 tab PO Q6H PRN PRN (Reason: Pain) 3 Days Qty: 10 0RF Referrals / Follow Up: WINSOME CUEVAS [Other] Disposition Disposition (needs filled in before D/C Order can be placed): Home, Self Care 01/30/23 0816<Electronically signed by Jose Daniel Myers MD>Jose Daniel Myers MD CC: WINSOME CUEVAS ~ Signed [facility] Work Phone: 1(430) 683-475301-30-2023 History and physical note Author Dr. Myers [facility] March 17, 2022 7:01am Note Date/Time March 17, 2022 7 :01am [facility] Medical Records Department [address] [facility] [place] [address] H&P Exam - HEAD PORTER BAGGAGE 03/17/22 0657 MR#: [id number] Acct: [id number] Name: KENDALL VASQUES Rep #:[id number] : 1985 36 From: Jose Daniel Myers MD PCP: Status:[facility] [place] Location: [place] [address] History and Physical Date of Admission: 03/17/22 Chief complaint: Pelvic pain History present illness: 36-year-old arrives for diagnostic laparoscopy possible cystectomy. No medical changes since last seen. All questions answered and consent signed Obstetric history: G1: P1 with a history of demise Past medical history: Anxiety depression Medications: Trazodone, sertraline Allergies: Baclofen, codeine, Flagyl, morphine, Zofran, shellfish, Topamax, tramadol, adhesive, NSAIDs Past surgical history: Right salpingo-oophorectomy, tonsillectomy, classical section, laparoscopy Family history: Denies his DVT or PE Social history: Denies smoking, alcohol, drug use Review of systems: Besides above pertinent positives a full review of systems was performed and found to be negative Physical exam: Vitals: Blood pressure 106/64 pulse 78 respiratory rate 16 temperature 98.9 ?F SPO2 100% on room air General: Normal-appearing no acute distress HEENT: Normocephalic/atraumatic no cervical lymphadenopathy Cardiac/respiratory: No use accessory muscles, nonlabored breathing Abdomen: Soft, nontender, nondistended Extremities: No peripheral edema normal peripheral pulses Psych: Normal affect normal demeanor nonpressured speech Labs: Urine test negative Assessment plan: 36-year-old arrives for diagnostic laparoscopy possible cystic. Patient understands risk of the procedure include but are not limited to visceral vascular injury, prolonged hospitalization, blood loss need for transfusion, reoperation. Patient state understanding wish to proceed. All questions were answered and consent was signed 03/17/22 0701 <Electronically signed by Jose Daniel Myers MD> Cosigner Signature (if applicable): CC: Dr. Jose Daniel Myers MD; WISNOME CUEVAS~ Signed [facility] Work Phone: 1(342) 494-318401-30-2023 Procedure [facility] 02-18-2022 Telephone encounter Note* Telephone Encounter - Yaneli Weathers - 02/18/2022 6:54 PM EST Name of caller: Kendall Contact phone number: [phone] Relationship to Patient: patient Provider: PhD Alberto Greenfield Practice: Psych Chief Complaint/Reason for Call: Pt called needing to cancel her 02/19/22 at 10am appt. Pt states will call back to resx if needs to. Best time of day caller can be reached: Any Patient advised that office/PCP has 24-48 business hours to return their call: [id number] Miscellaneous Notes* Telephone Encounter - Yaneli Weathers - 02/18/2022 6:54 PM EST Name of caller: Kendall Contact phone number: [phone] Relationship to Patient: patient Provider: PhD Alberto Greenfield Practice: Psych Chief Complaint/Reason for Call: Pt called needing to cancel her 02/19/22 at 10am appt. Pt states will call back to resx if needs to. Best time of day caller can be reached: Any Patient advised that office/PCP has 24-48 business hours to return their call: Yes documented [facility]10[facility] History of Present illness Narrative* Timmy Mariano MD - 12/11/2021 11:30 AM EDT DAILY PROGRESS NOTE Admit Date: (Not on file) Date of Evaluation: 1:59 AM [facility] @[facility]@ IMPRESSION AND PLAN: 32 y/o female w/ h/o HTN, epilepsy, kidney stone and PID here for hypokalemia. She has labor and lost the baby girl at 24 weeks. 1) Hypokalemia: K 2.9 -> 3.8 -> 3.3 -> 4.2 -> 4.0 -> 3.9 -> 3.8 -> 4.2 -> 3.8 -> 4.2 -> 3.6 Discontinued KCl 20mEQ PO Qday. Discontinue spironolactone. Will get K level. 2) Hematuria: Renal US is unremarkable. Resolved. 3) HTN: SBP 100s. Currently off all meds. 4) Kidney stone: CT abdomen 2 mm nonobstructive left renal calculus. A punctate calculus is seen within the posterior urinary bladder, suggestive of a previously passed stone. Renal US disclosed no hydronephrosis calculus or focal renal abnormality UA disclosed rare crystals. Uric acid 3.4 PTH 27.4 Cr 0.98 Will get CBC. She is trying to get . Probably best to avoid new meds. SUBJECTIVE: Patient seen and examined. Chart, medications, labs reviewed. Appointment on 12/09/2021 Component Date Value Ref Range Status MAGNESIUM 12/09/2021 1.8 1.6 - 2.3 MG/DL Final WBC (WHITE BLOOD COUNT) 12/09/2021 6.8 3.6 - 11.0 10*3/uL Final RBC 12/09/2021 4.53 4.0 - 5.4 10*6/uL Final HEMOGLOBIN (HGB) 12/09/2021 13.5 12.0 - 16.0 G/DL Final HEMATOCRIT (HCT) 12/09/2021 42.0 36.0 - 48.0 % Final MEAN CELL VOLUME 12/09/2021 92.7 80.0 - 100.0 FL Final Mean Cell HGB 12/09/2021 29.9 26.0 - 35.0 PG Final MEAN CELL HGB CONCENTRATION 12/09/2021 32.3 27.0 - 37.0 G/DL Final RBC DISTRIBUTION 12/09/2021 14.2 11.5 - 14.5 % Final PLATELET COUNT 12/09/2021 183 130.0 - 400.0 10*3/uL Final MEAN PLATELET VOLUME 12/09/2021 7.9 7.4 - 11.0 FL Final DIFFERENTIAL TYPE 12/09/2021 AUTO DIFF % Final NEUTROPHILS 12/09/2021 49.3 37.0 - 75.0 % Final LYMPHOCYTE 12/09/2021 40.6 20.0 - 55.0 % Final MONOCYTE % 12/09/2021 8.3 0.0 - 10.0 % Final EOSINOPHIL % 12/09/2021 1.2 0.0 - 11.0 % Final BASOPHIL % 12/09/2021 0.6 0.0 - 2.0 % Final Absolute Neutrophil Count 12/09/2021 3.4 1.4 - 6.5 10*3/uL Final LYMPHOCYTES, ABSOLUTE 12/09/2021 2.8 1.2 - 3.4 10*3/uL Final MONOCYTES, ABSOLUTE 12/09/2021 0.6 0.0 - 0.7 10*3/uL Final ABSOLUTE EOSINOPHIL COUNT 12/09/2021 0.1 0.0 - 0.7 10*3/uL Final ABSOLUTE BASOPHIL COUNT 12/09/2021 0.0 0.0 - 0.2 10*3/uL Final GLUCOSE 12/09/2021 80 70 - 100 MG/DL Final Comment: NORMAL <100 mg/dL PREDIABETES 101-126 mg/dL DIABETES 126 mg/dL or higher BUN 12/09/2021 15 7 - 20 MG/DL Final CREATININE SERUM 12/09/2021 0.75 0.52 - 1.04 MG/DL Final SODIUM 12/09/2021 139 136 - 145 MMOL/L Final POTASSIUM 12/09/2021 3.6 3.5 - 5.1 MMOL/L Final CHLORIDE 12/09/2021 103 98 - 107 MMOL/L Final CARBON DIOXIDE (CO2) 12/09/2021 26 22 - 30 MMOL/L Final Albumin 12/09/2021 4.7 3.5 - 5.0 G/dl Final CALCIUM 12/09/2021 9.7 8.4 - 10.2 MG/DL Final PHOSPHORUS 12/09/2021 2.7 2.5 - 4.5 MG/DL Final ESTIMATED GFR, NON AMER 12/09/2021 93 ml/min/1.73sq.m Final ESTIMATED GFR, 12/09/2021 113 ml/min/1.73sq.m Final GFR COMMENT 12/09/2021 Average GFR for 30-39 years old = 107. Final Comment: Chronic Kidney disease, GFR = <60. Kidney failure, GFR = <15. The GFR estimate is not adjusted for extreme body surface area or acute process, nor has it been validated for women or ethnic groups other than and . COLOR, URINE 12/09/2021 YELLOW YELLOW Final APPEARANCE, URINE 12/09/2021 CLEAR CLEAR Final Specific [place], Urine 12/09/2021 >1.030 (H) 1.010 - 1.025 Final PH URINE 12/09/2021 5.5 5.0 - 7.0 Final PROTEIN, URINE 12/09/2021 TRACE (A) NEGATIVE mg/dl Final GLUCOSE, URINE 12/09/2021 NEGATIVE NEGATIVE mg/dl Final KETONES, URINE 12/09/2021 TRACE (A) NEGATIVE mg/dl Final BILIRUBIN, URINE 12/09/2021 NEGATIVE NEGATIVE Final BLOOD, URINE DIPSTICK 12/09/2021 NEGATIVE NEGATIVE Final NITRITES, URINE 12/09/2021 NEGATIVE NEGATIVE Final UROBILINOGEN, URINE 12/09/2021 0.2 0.2 - 1.0 E.U./dL Final LEUKOCYTE ESTERASE, URINE 12/09/2021 NEGATIVE NEGATIVE Final SODIUM, URINE RANDOM 12/09/2021 50 MMOL/L Final WBC, URINE 12/09/2021 1 TO 5 NEGATIVE /HPF Final RBC, URINE 12/09/2021 1 TO 5 NEGATIVE /HPF Final Epithelial Cells UA 12/09/2021 5 TO 10 /HPF Final Mucus 12/09/2021 1+ (A) NEGATIVE Final BACTERIA, URINE 12/09/2021 NEGATIVE NEGATIVE Final CRYSTALS, URINE 12/09/2021 RARE (A) NONE Final CA OXALATE CRYSTALS CASTS, URINE 12/09/2021 NONE NONE /LPF Final COMMENT, URINE 12/09/2021 CULTURE CRITERIA NOT MET, NO CULTURE PERFORMED. Final LABS Labs-ABGs @ABGROUNDS@ Labs-CBC @CBCBRIEFROUNDS@ Labs-Chem 7(P[facility]) @[facility]@ Labs-Coags WBC (WHITE BLOOD COUNT) Date Value Ref Range Status 12/09/2021 6.8 3.6 - 11.0 10*3/uL Final 12/10/2020 10.7 3.6 - 11.0 10*3/uL Final 07/20/2020 9.3 3.6 - 11.0 10*3/uL Final HEMOGLOBIN (HGB) Date Value Ref Range Status 12/09/2021 13.5 12.0 - 16.0 G/DL Final 10/07/2021 12.7 12.0 - 16.0 G/DL Final 12/10/2020 12.1 12.0 - 16.0 G/DL Final HEMATOCRIT (HCT) Date Value Ref Range Status 12/09/2021 42.0 36.0 - 48.0 % Final 10/07/2021 39.1 36.0 - 48.0 % Final 12/10/2020 36.2 36.0 - 48.0 % Final PLATELET COUNT Date Value Ref Range Status 12/09/2021 183 130.0 - 400.0 10*3/uL Final 12/10/2020 255 130.0 - 400.0 10*3/uL Final 07/20/2020 201 130.0 - 400.0 10*3/uL Final SODIUM Date Value Ref Range Status 12/09/2021 139 136 - 145 MMOL/L Final 10/07/2021 137 136 - 145 MMOL/L Final 12/10/2020 138 136 - 145 MMOL/L Final CHLORIDE Date Value Ref Range Status 12/09/2021 103 98 - 107 MMOL/L Final 10/07/2021 102 98 - 107 MMOL/L Final 12/10/2020 104 98 - 107 MMOL/L Final BUN Date Value Ref Range Status 12/09/2021 15 7 - 20 MG/DL Final 10/07/2021 17 7 - 20 MG/DL Final 12/10/2020 11 7 - 20 MG/DL Final POTASSIUM Date Value Ref Range Status 12/09/2021 3.6 3.5 - 5.1 MMOL/L Final 10/07/2021 3.9 3.5 - 5.1 MMOL/L Final 12/10/2020 3.8 3.5 - 5.1 MMOL/L Final CREATININE SERUM Date Value Ref Range Status 12/09/2021 0.75 0.52 - 1.04 MG/DL Final 10/07/2021 0.88 0.52 - 1.04 MG/DL Final 12/10/2020 0.64 0.52 - 1.04 MG/DL Final POCT GLUCOSE, URINE Date Value Ref Range Status 11/11/2021 Negative mg/dL Final GLUCOSE Date Value Ref Range Status 12/09/2021 80 70 - 100 MG/DL Final Comment: NORMAL <100 mg/dL PREDIABETES 101-126 mg/dL DIABETES 126 mg/dL or higher 10/07/2021 85 70 - 100 MG/DL Final Comment: NORMAL <100 mg/dL PREDIABETES 101-126 mg/dL DIABETES 126 mg/dL or higher PT Date Value Ref Range Status 12/23/2018 13.4 11.6 - 14.0 SEC Final 08/01/2018 12.8 11.6 - 14.0 SEC Final 05/27/2018 13.5 11.6 - 14.0 SEC Final PTT Date Value Ref Range Status 08/01/2018 27.7 23.2 - 34.5 SEC Final Comment: THERAPEUTIC RANGE (43.0-65.0) 05/27/2018 29.6 23.2 - 34.5 SEC Final Comment: THERAPEUTIC RANGE (43.0-65.0) 06/25/2017 27.2 23.2 - 34.5 SEC Final Comment: THERAPEUTIC RANGE (43.0-65.0) PROTEIN, TOTAL Date Value Ref Range Status 10/07/2021 7.7 6.3 - 8.2 GM/DL Final 12/13/2019 7.4 6.3 - 8.2 GM/DL Final 11/01/2019 7.3 6.3 - 8.2 GM/DL Final Albumin Date Value Ref Range Status 12/09/2021 4.7 3.5 - 5.0 G/dl Final 10/07/2021 4.4 3.5 - 5.0 G/dl Final 12/10/2020 3.5 3.5 - 5.0 G/dl Final AST Date Value Ref Range Status 10/07/2021 20 15 - 41 IU/L Final 12/13/2019 19 15 - 41 IU/L Final 11/01/2019 18 15 - 41 IU/L Final ALT Date Value Ref Range Status 10/07/2021 18 14 - 54 IU/L Final 12/13/2019 18 14 - 54 IU/L Final 11/01/2019 15 14 - 54 IU/L Final BILIRUBIN, TOTAL Date Value Ref Range Status 10/07/2021 0.4 0.2 - 1.2 MG/DL Final CALCIUM Date Value Ref Range Status 12/09/2021 9.7 8.4 - 10.2 MG/DL Final 10/07/2021 9.3 8.4 - 10.2 MG/DL Final 12/10/2020 9.3 8.4 - 10.2 MG/DL Final PHOSPHORUS Date Value Ref Range Status 12/09/2021 2.7 2.5 - 4.5 MG/DL Final 12/10/2020 3.4 2.5 - 4.5 MG/DL Final 06/02/2020 3.8 2.5 - 4.5 MG/DL Final MAGNESIUM Date Value Ref Range Status 12/09/2021 1.8 1.6 - 2.3 MG/DL Final 12/10/2020 1.8 1.6 - 2.3 MG/DL Final 10/22/2019 1.9 1.8 - 2.4 mg/dL Final Lab Results Component Value Date CREATURINE 38.4 06/15/2019 CREATSERUM 0.75 12/09/2021 BUN 15 12/09/2021 SODIUM 139 12/09/2021 POTASSIUM 3.6 12/09/2021 CHLORIDE 103 12/09/2021 CO2 26 12/09/2021 ROS: Constitution: No fever, no chill HEENT: No headache, no sinus issues CV: No chest pain, no palpitation Lung: No cough, No SOB Abd: No diarrhea, no constipation Neuro: No seizure, no loss of consciousness Heme: No bleeding, no bruise PHYSICAL EXAM: Wt Readings from Last 3 Encounters: 12/11/21 61.2 kg (135 lb) 12/09/21 61.6 kg (135 lb 12.8 oz) 11/11/21 61.6 kg (135 lb 11.2 oz) Temp Readings from Last 3 Encounters: 11/11/21 99 F (37.2 C) 06/12/21 97.4 F (36.3 C) 09/10/20 97.9 F (36.6 C) BP Readings from Last 3 Encounters: 12/11/21 119/70 12/09/21 107/73 11/11/21 111/79 Pulse Readings from Last 3 Encounters: 12/11/21 78 12/09/21 79 11/11/21 86 Gen: NAD, lying in bed, conversant HEENT: Atraumatic, PERRLA, moist membrane CV: RRR, nl S1 and S2, no m/g/r Lung: CTAB, no wheezing, no crackle Abd: +BS, nontender, no distended Ext: No rash, no clubbing, no cyanosis. No edema. Neuro: CNII-XII grossly intact, 5/5 strength, normal tone Skin: Warm and dry [facility] History of Present illness Narrative* Winsome Rosa [place], CAR SWEEPER-[employer] - 12/09/2021 2:20 PM EDT Chief Complaint Patient presents with Anxiety Insomnia HPI: Regarding Insomnia: She presents today for complaint of insomnia. Onset of symptoms: years. Previously treated with: Trazodone has worked well to help with sleep. Dose of 150mg does well for her. Recently admits to fewer hours of sleep, but states her depression has been increased with the holidays coming and approaching the one year anniversary of her miscarriage. Current meds include: trazodone 150mg daily. Frequency of medication use: nightly Pt reports difficulty initiating sleep: Yes Difficulty maintaining sleep: Yes Early awakening: Yes Pt reports or exhibits symptoms of anxiety/depression: Yes; doing better with medications and therapy. Regarding Anxiety/Depression: Kendall presents with the complaint of anxiety/depression which is currently improving. 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 She reports the following triggers: stress Counseling via telehealth every 3 weeks. This is very helpful for her. Other symptoms include: depressed mood, insomnia. Denies SI/HI. Current treatment includes: started on zoloft while in the hospital (01/06). Feels it is working very well for her. She takes zoloft 100mg daily and takes the additional 50mg if necessary. Significant medical conditions: see list ROS: Constitutional: Negative for fatigue and fever. HENT: Negative for congestion, ear pain and sore throat. Eyes: Negative for pain and redness. Respiratory: Negative for cough and shortness of breath. Cardiovascular: Negative for chest pain and palpitations. Gastrointestinal: Positive for nausea. Negative for abdominal pain, constipation, diarrhea and vomiting. Genitourinary: Positive for flank pain. Negative for difficulty urinating and dysuria. Musculoskeletal: Negative for arthralgias and myalgias. Skin: Negative for rash and wound. Neurological: Negative for dizziness and headaches. All other systems reviewed and are negative. Physical Exam: BP 107/73 Pulse 79 Ht 1.626 m (5' 4) Wt 61.6 kg (135 lb 12.8 oz) BMI 23.31 kg/m Smoking Status Never Body mass index is 23.31 kg/m . Physical Exam Vitals and nursing note reviewed. Constitutional: Appearance: Normal appearance. She is normal weight. HENT: Head: Normocephalic and atraumatic. Eyes: Conjunctiva/sclera: Conjunctivae normal. Pupils: Pupils are equal, round, and reactive to light. Pulmonary: Effort: Pulmonary effort is normal. No respiratory distress. Musculoskeletal: General: Normal range of motion. Neurological: Mental Status: She is alert and oriented to person, place, and time. Psychiatric: Mood and Affect: Mood normal. Behavior: Behavior normal. Assessment/Plan: 1. Psychophysiological insomnia -Chronic ands stable. No change to current trazodone. -Recommend daily walks outdoors to help with mood. - trazodone 150 MG tablet; Take 1 tablet by mouth every evening at 6 PM. Dispense: 30 tablet; Refill: 2 2. Generalized anxiety disorder -Chronic and stable. Continue zoloft and therapy. She will take zoloft 100mg alternating with 150mgas she sees fit. - sertraline 100 MG tablet; Take 1 tablet by mouth daily. Dispense: 90 tablet; Refill: 1 -sertraline 50mg tabled. Take 1 tables by mouth daily. Dispense 90 talet, Refill: 0 *Follow up in 3 months.* Orders and follow up as documented in patient record; Patient was advised to call with any questions or concerns. If symptoms worsen patient was advised to follow up in our office or the Emergency Dept. Benefits, Risks, Contraindications, and Complications of recommended treatments were explained the patient understands and agrees to proceed with plan. Winsome Cuevas APRN-DECK MECH[employer]IC 12/09/2021 * Lyssa Harris LPN - 12/09/2021 2:20 PM EDT Nurse Note: Review of Systems Constitutional: Negative for fatigue and fever. HENT: Negative for congestion, ear pain and sore throat. Eyes: Negative for pain and redness. Respiratory: Negative for cough and shortness of breath. Cardiovascular: Negative for chest pain and palpitations. Gastrointestinal: Positive for nausea. Negative for abdominal pain, constipation, diarrhea and vomiting. Genitourinary: Positive for flank pain. Negative for difficulty urinating and dysuria. Musculoskeletal: Negative for arthralgias and myalgias. Skin: Negative for rash and wound. Neurological: Negative for dizziness and headaches. All other systems reviewed and are negative. documented in this [facility]10-[facility] Instructions* Patient Instructions* CHRISTELLE Peace - 12/09/2021 2:20 PM EDT *Refills on sertraline and trazodone without change.* Patient was advised to call with any questions or concerns. If symptoms worsen patient was advised to follow up in our office or the Emergency Dept. Benefits, Risks, Contraindications, and Complications of recommended treatments were explained the patient understands and agrees to proceed with plan. documented [facility] this [facility]08-[facility] History of Present illness Narrative* CHRISTELLE Peace - 10/07/2021 10:00 AM EDT Chief Complaint Patient presents with ED Follow-up Seen on 09/25 in [place] and in [place] the month before HPI: Regarding Abominal Pain: Rhys a 35 y.o. female who presents today for complaints of Abdominal Pain. She was seen In [place]'s ER on 09/27 and diagnosed with abdominal pain, vomiting and hypokalemia. Started on omeprazole and compazine as well as potassium supplementation. RUQ ultrasound and CT abdomen were unremarkable. She had been seen in [place] in 08/07 for similar symptoms and CT showed gallbladder sludge and she was treated for a UTI. Location - above her belly button and slightly to the right with some pain between her shoulder blades as well. Vomiting on average once daily, mainly after eating. Carbonated beverages cause more discomfort as well. She is concerned about the potential for Aurelio's dsease as she has a h/o renal issues (stones) and potassium disturbance. Taking potassium 40meq as prescribed in the ER. Duration - over one month. Quality of pain - cramping, stabbing Treatments tried - PPI, zofran, compazine Exacerbating/Alleviating Factors- eating makes it worse. Has there been similar problems in the past - Yes: HIDA scan a few years ago. Upper GI in 2017 withmild gastritis. Significant Medical Conditions- see list For females, last menstrual period or status - negative test in the ER Fever - No Stool black or bloody - no Vomiting blood or coffee grounds - no Persistent nausea, vomiting, or diarrhea - Yes: daily vomiting. Almost daily diarrhea. Mental status changes - no Regarding Insomnia: Taking trazodone nightly to help with sleep and this is effective. Denies next day drowsiness or other negative side effects of the medication. Same bedtime routine and states she is active during the day. No problems at work with the exception of recent missed days due to ER visits and abdominal pain. She is in need of a refill on trazodone. 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 ROS: Constitutional: Positive for fatigue. Negative for fever. HENT: Negative for congestion, ear pain and sore throat. Eyes: Negative for pain and redness. Respiratory: Negative for cough and shortness of breath. Cardiovascular: Negative for chest pain and palpitations. Gastrointestinal: Positive for abdominal pain, diarrhea, nausea and vomiting. Negative for constipation. Genitourinary: Negative for difficulty urinating and dysuria. Musculoskeletal: Positive for arthralgias. Negative for myalgias. Skin: Negative for rash and wound. Neurological: Positive for dizziness and headaches. All other systems reviewed and are negative. Physical Exam: BP 109/78 Pulse 73 Ht 1.626 m (5' 4) Wt 62.3 kg (137 lb 6.4 oz) BMI 23.58 kg/m Smoking Status Never Smoker Body mass index is 23.58 kg/m . Physical Exam Vitals and nursing note reviewed. Constitutional: Appearance: Normal appearance. She is not ill-appearing. HENT: Head: Normocephalic and atraumatic. Eyes: Conjunctiva/sclera: Conjunctivae normal. Pupils: Pupils are equal, round, and reactive to light. Cardiovascular: Rate and Rhythm: Normal rate and regular rhythm. Heart sounds: Normal heart sounds. Pulmonary: Effort: Pulmonary effort is normal. Breath sounds: Normal breath sounds. Abdominal: General: Abdomen is flat. Bowel sounds are normal. There is no distension. Palpations: Abdomen is soft. Tenderness: There is abdominal tenderness in the right upper quadrant. There is guarding. There is no right CVA tenderness, left CVA tenderness or rebound. Musculoskeletal: General: Normal range of motion. Skin: General: Skin is warm and dry. Neurological: Mental Status: She is alert and oriented to person, place, and time. Psychiatric: Mood and Affect: Mood normal. Behavior: Behavior normal. Assessment/Plan: 1. Nausea and vomiting, unspecified vomiting type -Update labs due to electrolyte disturbance. Order HIDA scan for further evaluation of gallbladder disease and refer to surgery per patient request. - NUC HEPATOBILIARY WITH EJECTION FRACTION; Future - AMB REFERRAL TO GENERAL SURGERY - ALDOSTERONE; Future - TSH W/FT4 REFLEX; Future 2. RUQ pain -Ongoing abdominal pain and will refer to surgeon of patient's choice for consideration of gallbladder removal. - AMB REFERRAL TO GENERAL SURGERY 3. Hypokalemia -Update labs. Continue on current potassium supplement. - COMPREHENSIVE METABOLIC PANEL; Future - ALDOSTERONE; Future - TSH W/FT4 REFLEX; Future - AMB REFERRAL TO ENDOCRINOLOGY 4. Psychophysiological insomnia -Chronic and stable. Refill on trazodone without change. - trazodone 150 MG tablet; Take 1 tablet by mouth every evening at 6 PM. Dispense: 30 tablet; Refill: 2 5. Generalized anxiety disorder -Continue with counseling. 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 - sertraline 50 MG tablet; Take 3 tablets by mouth daily. Dispense: 1 tablet; Refill: 0 Orders and follow up as documented in patient record; Patient was advised to call with any questions or concerns. If symptoms worsen patient was advised to follow up in our office or the Emergency Dept. Benefits, Risks, Contraindications, and Complications of recommended treatments were explained the patient understands and agrees to proceed with plan. CHRISTELLE Peace 10/07/2021 * Lyssa Harris LPN - 10/07/2021 10:00 AM EDT Nurse Note: Review of Systems Constitutional: Positive for fatigue. Negative for fever. HENT: Negative for congestion, ear pain and sore throat. Eyes: Negative for pain and redness. Respiratory: Negative for cough and shortness of breath. Cardiovascular: Negative for chest pain and palpitations. Gastrointestinal: Positive for abdominal pain, diarrhea, nausea and vomiting. Negative for constipation. Genitourinary: Negative for difficulty urinating and dysuria. Musculoskeletal: Positive for arthralgias. Negative for myalgias. Skin: Negative for rash and wound. Neurological: Positive for dizziness and headaches. All other systems reviewed and are negative. [facility] Instructions* Patient Instructions* CHRISTELLE Peace - 10/07/2021 10:00 AM EDT Patient was advised to call with any questions or concerns. If symptoms worsen patient was advised to follow up in our office or the Emergency Dept. Benefits, Risks, Contraindications, and Complications of recommended treatments were explained the patient understands and agrees to proceed with plan. [facility] History of Present illness Narrative* CHRISTELLE Peace - 06/12/2021 11:20 AM EDT Chief Complaint Patient presents with Other Hospital follow up HPI: Regarding Hospital Follow Up: States last Thursday (12 days ago) she was having pains in both shoulder blades that took her breath away. at work she had a sharp stabbing pain beneath her left breast that progressed to constant pressure on her chest. She reports being tachycardic and squad was called to transport her fromwork. NTG helped some, but pain then continued to get worse. D-dimer and echo were negative. CT showed no blood clot. She was admitted for pain control as she states the left chest/breast pain did not resolve. Ultimately states she was diagnosed with a severe case of pleurisy. She was given norco for home use, but prednisone was avoided due to renal issues. States norco helps some with pain, but she is almost out of this medication. Coughing makes it worse and she feels more short of breath than usual. Pressure on the area and certain position changes cause worsening of pain. She has a h/o pleurisy in the past and this feels similar. Review of hospital records with Kendall today. ROS: Constitutional: Positive for fatigue and fever. HENT: Negative for congestion, ear pain and sinus pain. Eyes: Negative for pain and redness. Respiratory: Positive for cough and shortness of breath. Cardiovascular: Positive for chest pain and palpitations. Gastrointestinal: Negative for abdominal pain, constipation, diarrhea, nausea and vomiting. Genitourinary: Negative for difficulty urinating and dysuria. Musculoskeletal: Negative for arthralgias and myalgias. Skin: Negative for rash and wound. Neurological: Positive for dizziness. Negative for headaches. All other systems reviewed and are negative. Physical Exam: BP 113/77 Pulse 88 Temp 97.4 F (36.3 C) Resp 20 Ht 1.626 m (5' 4) Wt 63 kg (138 lb 12.8 oz) SpO2 98% BMI 23.82 kg/m Smoking Status Never Smoker Body mass index is 23.82 kg/m . Physical Exam Vitals and nursing note reviewed. Constitutional: General: She is in acute distress (appears uncomfortable). Appearance: She is normal weight. HENT: Head: Normocephalic and atraumatic. Eyes: Conjunctiva/sclera: Conjunctivae normal. Pupils: Pupils are equal, round, and reactive to light. Cardiovascular: Rate and Rhythm: Normal rate and regular rhythm. Heart sounds: Normal heart sounds. Pulmonary: Effort: Pulmonary effort is normal. Tachypnea (however, breathing normalized after discussing topics outside of her health. Normal RR upon leaving the exam room.) present. Breath sounds: Normal breath sounds. Chest: Chest wall: Tenderness (left chest wall below breast. Tender with mild palpation and with deep breath) present. Musculoskeletal: General: Normal range of motion. Cervical back: Normal range of motion. Skin: General: Skin is warm and dry. Findings: No rash. Neurological: Mental Status: She is alert and oriented to person, place, and time. Psychiatric: Attention and Perception: Attention normal. Mood and Affect: Mood is anxious. Cognition and Memory: Cognition normal. Assessment/Plan: 1. Anterior pleuritic pain -She will be seen by nephrology, Dr Mariano, and ask his opinion on taking prednisone to help with pleuritic pain. Will avoid additional narcotic medications at this time. NOTE: follow phone call from Dr Mariano's office states prednisone is acceptable treatment with her renal disease. She will start prednisone taper tomorrow am. - predniSONE 10 MG tablet; Take 2 day taper starting with 60mg. 60mg x 2 days, 40mg x 2 days, 20mg x 2 days, 10mg x 2 days. Take in the am. Dispense: 26 tablet; Refill: 0 2. Anxiety -Symptoms of pain/tachypnea improved with change in topic and reassurance of normal test results thus far. Orders and follow up as documented in patient record; Patient was advised to call with any questions or concerns. If symptoms worsen patient was advised to follow up in our office or the Emergency Dept. Benefits, Risks, Contraindications, and Complications of recommended treatments were explained the patient understands and agrees to proceed with plan. CHRISTELLE Peace 06/12/2021 * Steph Dhaliwal MA - 06/12/2021 11:20 AM EDT Nurse Note: Review of Systems Constitutional: Positive for fatigue and fever. HENT: Negative for congestion, ear pain and sinus pain. Eyes: Negative for pain and redness. Respiratory: Positive for cough and shortness of breath. Cardiovascular: Positive for chest pain and palpitations. Gastrointestinal: Negative for abdominal pain, constipation, diarrhea, nausea and vomiting. Genitourinary: Negative for difficulty urinating and dysuria. Musculoskeletal: Negative for arthralgias and myalgias. Skin: Negative for rash and wound. Neurological: Positive for dizziness. Negative for headaches. All other systems reviewed and are negative. Nursing Assessment: Physical Exam documented in this [facility]04-26-20[facility] Instructions* Patient Instructions* CHRISTELLE Peace - 06/11/2021 10:12 PM EDT Discuss potential for pred[facility]one [facility] Dr [facility]. [facility] Patient was advised to call with any questions or concerns. If symptoms worsen patient was advised to follow up in our office or the Emergency Dept. Benefits, Risks, Contraindications, and Complications of recommended treatments were explained the patient understands and agrees to proceed with plan. documented in this [facility]03-16-[facility] History of Present illness Narrative* CHRISTELLE Peace - 05/01/2021 1:20 PM EDT Images from the original note were not included. Chief Complaint Patient presents with Depression Post- Insomnia Back Pain Pain from spinal tap Nausea Knee Pain right HPI: Regarding Insomnia: She presents today for complaint of insomnia. Onset of symptoms: years. Previously treated with: Trazodone has worked well to help with sleep. Dose of 150mg does well for her. Current meds include: trazodone 150mg daily. Frequency of medication use: nightly Pt reports difficulty initiating sleep: Yes Difficulty maintaining sleep: Yes Early awakening: Yes Pt reports or exhibits symptoms of anxiety/depression: Yes; doing better with medications and therapy. Regarding Anxiety/Depression: Kendall presents with the complaint of anxiety/depression which is currently improving. 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 She reports the following triggers: stress with recent miscarriage in 01/06. Counseling via telehealth every 3 weeks. This is very helpful for her. Other symptoms include: depressed mood, insomnia. Denies SI/HI. Current treatment includes: started on zoloft while in the hospital (01/06). Feels it is working very well for her. Significant medical conditions: see list Regarding Nausea: Would like a refill on promethazine for nausea that she has with kidney stones. Also has an Rx for Zofran which she takes when she is at work as this does not cause as much drowsiness Regarding Back Pain: States she has had back pain since her epidural in 01/06. Has been taking skelaxin and this helps. Does not take ibuprofen as Dr Mariano advised her to avoid due to kidney disease. States the pain is pretty constant, but worsens after she has been sitting or standing for longer periods. 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 Right knee Pain: Ongoing since 01/06 with . Denies known injury or previous problems with her knees. Mostlynotes when she is squatting or going from a seated to a standing position. Avoids NSAIDs. Denies daily exercise. Denies feeling like her knee will give out on her or lock up. Pain does not radiate. ROS: Constitutional: Negative for fatigue and fever. HENT: Negative for congestion, ear pain and sore throat. Eyes: Negative for pain and redness. Respiratory: Negative for cough and shortness of breath. Cardiovascular: Negative for chest pain and palpitations. Gastrointestinal: Negative for abdominal pain, constipation, diarrhea, nausea and vomiting. Genitourinary: Negative for difficulty urinating and dysuria. Musculoskeletal: Positive for arthralgias. Negative for myalgias. Skin: Negative for rash and wound. Neurological: Negative for dizziness and headaches. All other systems reviewed and are negative. Physical Exam: BP 125/80 Pulse 89 Ht 1.626 m (5' 4) Wt 60.3 kg (133 lb) SpO2 97% BMI 22.83 kg/m Smoking Status Never Smoker Body mass index is 22.83 kg/m . Physical Exam Nursing note reviewed. Constitutional: General: She is not in acute distress. Appearance: Normal appearance. She is normal weight. HENT: Head: Normocephalic and atraumatic. Eyes: Conjunctiva/sclera: Conjunctivae normal. Pulmonary: Effort: Pulmonary effort is normal. Musculoskeletal: Thoracic back: Tenderness present. Normal range of motion. Back: Right knee: No swelling. Normal range of motion. Tenderness present over the medial joint line and patellar tendon. Neurological: Mental Status: She is alert and oriented to person, place, and time. Psychiatric: Attention and Perception: Attention normal. Mood and Affect: Mood is depressed. Mood is not anxious. Behavior: Behavior normal. Assessment/Plan: 1. Psychophysiological insomnia -Chronic ands stable. No change to current trazodone. - trazodone 150 MG tablet; Take 1 tablet by mouth every evening at 6 PM. Dispense: 30 tablet; Refill: 2 2. Nausea -Chronic and usually accompanies kidney stones. Refill provided. - promethazine 25 MG tablet; Take 1 tablet by mouth every 6 hours as needed. Dispense: 12 tablet; Refill: 0 3. Generalized anxiety disorder -Chronic and stable. Continue zoloft and therapy. - sertraline 100 MG tablet; Take 1 tablet by mouth daily. Dispense: 90 tablet; Refill: 1 4. Chronic right-sided thoracic back pain -Take muscle relaxer as needed for back pain. Ok for her to take low dose ibuprofen when pain is severe.- - tizanidine 2 MG tablet; Take 1 tablet by mouth 2 times daily as needed for Muscle spasms. Dispense: 30 tablet; Refill: 0 5. Chronic Right knee pain: -She will research covered ortho providers in [place] and call with a name for referral. -Heat alternating with ice recommended along with tylenol. *Follow up in 6 months.* Orders and follow up as documented in patient record; Patient was advised to call with any questions or concerns. If symptoms worsen patient was advised to follow up in our office or the Emergency Dept. Benefits, Risks, Contraindications, and Complications of recommended treatments were explained the patient understands and agrees to proceed with plan. CHRISTELLE Peace 05/03/2021 * Debora Rodrigues - 05/01/2021 1:20 PM EDT Nurse Note: Review of Systems Constitutional: Negative for fatigue and fever. HENT: Negative for congestion, ear pain and sore throat. Eyes: Negative for pain and redness. Respiratory: Negative for cough and shortness of breath. Cardiovascular: Negative for chest pain and palpitations. Gastrointestinal: Negative for abdominal pain, constipation, diarrhea, nausea and vomiting. Genitourinary: Negative for difficulty urinating and dysuria. Musculoskeletal: Positive for arthralgias. Negative for myalgias. Skin: Negative for rash and wound. Neurological: Negative for dizziness and headaches. All other systems reviewed and are negative. documented in this [facility]03-16-2022 Instructions* Patient Instructions* CHRISTELLE Peace - 05/01/2021 7:20 AM EDT *Refills on current medications. Call me with the name of an ortho doctor in [place].* Patient was advised to call with any questions or concerns. If symptoms worsen patient was advised to follow up in our office or the Emergency Dept. Benefits, Risks, Contraindications, and Complications of recommended treatments were explained the patient understands and agrees to proceed with plan. documented in this [facility]11-22-2021 History of Present illness Narrative* Fernanda Corea MD - 01/07/2021 5:49 AM EST Images from the original note were not included. POST OPERATIVE DAY # 2 Kendall Vasques is a 35 y.o. who was seen & examined today. Her was complicated by: Patient Active Problem List Diagnosis Nonepileptic episode (HCC) premature rupture of membranes (PPROM) with unknown onset of labor Renal calculus Today she is doing well without any chief complaint. Her lochia is light. She denies chest pain, shortness of breath, headache, lightheadedness and blurred vision. She is ambulating well. Flatus present. Bowel movement absent. Voiding spontaneously. She is tolerating solids. Pain is controlled yes. Vital Signs: Vitals: 01/06/21 0121 01/06/21 0434 01/06/21 0851 01/06/212013 BP: 100/63 (!) 97/57 117/71 112/70 Pulse: 66 70 71 87 Resp: 16 16 16 18 Temp: 98.6 F (37 C) 98.4 F (36.9 C) 98.3 F (36.8 C) 98.8 F (37.1 C) TempSrc: Temporal Temporal Temporal Temporal SpO2: 99% 98% 100% 97% Weight: Height: Urine Input & Output last 24hrs: Intake/Output Summary (Last 24 hours) at 01/07/2021 0638 Last data filed at 01/06/2021 0945 Gross per 24 hour Intake Output 650 ml Net -650 ml Physical Exam: General: no apparent distress, alert and cooperative Affect: appropriate Lungs: No increased work of breathing, good air exchange Abdomen: abdomen soft, non-distended, non-tender Fundus: non-tender, normal size, firm, below umbilicus Incision: Dressing remains in place Extremities: no calf tenderness, non edematous Labs: Lab Results Component Value Date WBC 14.2 (H) 01/05/2021 HGB 8.5 (L) 01/06/2021 HCT 33.3 (L) 01/05/2021 MCV 91.9 01/05/2021 PLT 203 01/05/2021 A POS Antibody Screen: Antibody Screen Date Value Ref Range Status 01/04/2021 NEG NA Final No results found for: RUBELLAIGG LABOR DELIVERY ??? SCD's ONLY (labor through ambulation) SCD's PLUS Prophylactic Anticoagulation until discharge SCD's PLUS Prophylactic Anticoagulation for 6 weeks SCD's PLUS Therapeutic Anticoagulation for 6 weeks Vaginal Delivery [] BMI ? 40 kg/m2 Delivery All patients Vaginal Delivery [] BMI ? 40 kg/m2 AND [] Antepartum hospitalization ? 72 hours within the past month Delivery 1 Major Risk Factor: [] BMI ? 35 kg/m2 [] Low Risk Thrombophilia [] PPH+RBCs, IR, or operation [] Infection+Antibiotics [] Antepartum hospitalization ? 72 hours within the past month [] PMH: Sickle Cell, SLE, Cardiac Dz, Active IBD, Active Cancer, Nephrotic Syndrome OR 2 Minor Risk Factors: [] Multiple gestation [] Age > 40 [] PPH ? 1,000cc [] (+)FMH of VTE [] Smoker [] Preeclampsia [] BMI ? 40 kg/m2 AND [] Low Risk Thrombophilia OR ANY OF THE FOLLOWING: [] High Risk Thrombophilia without prior VTE [] Low Risk Thrombophilia with (+)FMH of VTE [] Any single prior VTE ANY OF THE FOLLOWING: [] Already on LMWH/UFH [] Multiple prior VTE [] High Risk Thrombophilia with prior VTE Low Risk Thrombophilia: FVL (heterozygous), Prothrombin (heterozygous), Protein C, Protein S High Risk Thrombophilia: FVL (homozygous), Prothrombin (homozygous), FVL+Prothrombin (heterozygous), Antithrombin III, APLS Assessment/Plan: 1. Kendall Vasques is a 35 y.o. POD #2 s/p Classical Section 2/2 placental abruption Care - Doing well, VSS - baby girl resulting in demise - Contraception: Per Private Attending - Encourage ambulation and use of incentive spirometer - D/C llanes catheter and saline lock IV on POD #1 - Postop Hb 8.5 - VTE Prophylaxis: Prophylactic Dosing until Discharge cHTN - Not on medications - BP normotensive - PreE labs negative Stage 2 CKD 2/2 Nephrolithiasis - pain overall stable - urology consulted and following peripherally - will continue to monitor for symptoms Seizure Disorder - likely PNES per neuro - last seizure approx 3 weeks ago - if patient were to seize order EEG and inform neurology Asthma - symptoms stable demise - CLP following - no medications for anxiety at this time Anemia - Postop Hgb 8.5 - Iron/colace ordered Disposition: Continue current care Based on my clinical assessment, this patient is safe for self discharge (does not need transport by wheelchair) if she so chooses. Provider's Name: MD Roseanne Velazquez MD 01/07/2021, 6:38 AM Attending Supervising Physician's Attestation Statement I independently saw and examined the patient today. I reviewed and agree with the findings and thompson documented in the note. Kendall is doing okay this morning. Appropriately tearful. Really wants to go home today as she feels being in the hospital makes her more sad. Appropriate for DC as she is meeting postop milestones. She is asking to be started on an antidepressant. I discussed Zoloft with her and she elects to start this medication. She is going to follow up closely with her psychiatrist and PCP to manage this medication. I told her it could take a few weeks to start working. She has great support at home. She is going to see her OBGYN Dr. Myers in a week for an incision check. Cr stable 0.59. Vitals WNL. Iron and colace for DC. Will try a binder to help with her breast pain. DC home today. I spent 20 minutes in the visit, with more than 50% of the total [id number] time of the visit in counseling/coordination of care. Fernanda Corea MD * Sachin Pierce MD - 01/06/2021 5:27 AM EST Images from the original note were not included. POST OPERATIVE DAY # 1 Kendall Vasques is a 35 y.o. who was seen & examined today. Her was complicated by: Patient Active Problem List Diagnosis Nonepileptic episode (HCC) premature rupture of membranes (PPROM) with unknown onset of labor Renal calculus Today she is doing well overall. Her lochia is light. She denies chest pain, shortness of breath, headache and blurred vision. She is ambulating well. Flatus present. Bowel movement absent. Llanes catheter removed this AM and has not yet voided spontaneously. She is tolerating solids. Pain is controlled yes. Vital Signs: Vitals: 01/05/21 1821 01/05/21 2016 01/06/21 0121 01/06/21 0434 BP: 114/67 100/63 (!) 97/57 Pulse: 77 66 70 Resp: 16 16 16 Temp: 99.3 F (37.4 C) 98.8 F (37.1 C) 98.6 F (37 C) 98.4 F (36.9 C) TempSrc: Temporal Temporal Temporal SpO2: 97% 99% 98% Weight: Height: Urine Input & Output last 24hrs: Intake/Output Summary (Last 24 hours) at 01/06/2021 0527 Last data filed at 01/05/2021 182 Gross per 24 hour Intake 4100 ml Output 1680 ml Net 2420 ml Physical Exam: General: no apparent distress, alert and cooperative Affect: appropriate Lungs: No increased work of breathing, good air exchange Abdomen: abdomen soft, non-distended, non-tender Fundus: non-tender, normal size, firm, below umbilicus Incision: Dressing remains in place Extremities: no calf tenderness, non edematous Labs: Lab Results Component Value Date WBC 14.2 (H) 01/05/2021 HGB 10.8 (L) 01/05/2021 HCT 33.3 (L) 01/05/2021 MCV 91.9 01/05/2021 PLT 203 01/05/2021 A POS Antibody Screen: Antibody Screen Date Value Ref Range Status 01/04/2021 NEG NA Final No results found for: RUBELLAIGG LABOR DELIVERY ??? SCD's ONLY (labor through ambulation) SCD's PLUS Prophylactic Anticoagulation until discharge SCD's PLUS Prophylactic Anticoagulation for 6 weeks SCD's PLUS Therapeutic Anticoagulation for 6 weeks Vaginal Delivery [] BMI ? 40 kg/m2 Delivery All patients Vaginal Delivery [] BMI ? 40 kg/m2 AND [] Antepartum hospitalization ? 72 hours within the past month Delivery 1 Major Risk Factor: [] BMI ? 35 kg/m2 [] Low Risk Thrombophilia [] PPH+RBCs, IR, or operation [] Infection+Antibiotics [x] Antepartum hospitalization ? 72 hours within the past month [] PMH: Sickle Cell, SLE, Cardiac Dz, Active IBD, Active Cancer, Nephrotic Syndrome OR 2 Minor Risk Factors: [] Multiple gestation [] Age > 40 [] PPH ? 1,000cc [] (+)FMH of VTE [] Smoker [] Preeclampsia [] BMI ? 40 kg/m2 AND [] Low Risk Thrombophilia OR ANY OF THE FOLLOWING: [] High Risk Thrombophilia without prior VTE [] Low Risk Thrombophilia with (+)FMH of VTE [] Any single prior VTE ANY OF THE FOLLOWING: [] Already on LMWH/UFH [] Multiple prior VTE [] High Risk Thrombophilia with prior VTE Low Risk Thrombophilia: FVL (heterozygous), Prothrombin (heterozygous), Protein C, Protein S High Risk Thrombophilia: FVL (homozygous), Prothrombin (homozygous), FVL+Prothrombin (heterozygous), Antithrombin III, APLS Assessment/Plan: 1. Kendall Suazohire is a 35 y.o. POD # 1 s/p Classical Section 2/2 placental abruption Care - Doing well, VSS - baby girl resulting in demise - Contraception: Per Private Attending - Encourage ambulation and use of incentive spirometer - D/C llanes catheter and saline lock IV on POD #1 - Postop Hb pending - VTE Prophylaxis: Prophylactic Dosing until Discharge cHTN - Not on medications - BP normotensive - PreE labs negative Stage 2 CKD 2/2 Nephrolithiasis - pain overall stable - urology consulted and following peripherally - will continue to monitor for symptoms Seizure Disorder - likely PNES per neuro - last seizure approx 3 weeks ago - if patient were to seize order EEG and inform neurology Asthma - symptoms stable Anxiety - CLP following - no medications Disposition: Continue current care Based on my clinical assessment, this patient is not safe for self discharge (does not need transport by wheelchair) if she so chooses. Provider's Name: Sachin Brice, 01/06/2021, 5:27 AM POD#1 after classical at 24 1/7 weeks GA for PROM/abruption. Having postoperative pain, minimal lochia most of concerns today are related to her emotional sadness and reports difficulty withsleeping. Requesting something to help with sleep. Discussed again the events surrounding the delivery and the concerns related now to have had a classical . We talked about psychiatry to see. We also talked about the importance of follow up with her OB as well as offered psychology services with our psychologist in the [facility] office will send information so she can get set up appropriately for telehealth if desires. We also talked about the importance of contraception and the avoidance of for at least a year due to classical history. Preconceptual visit with [facility] also was encouraged. RH positive and reviewed the importance of a tight fitting bra to avoid breast stimulation to help through post delivery breast engorgement Sachin Pierce MD I spent 15 minutes counseling of this patient, questions answered and resident and nursing at the bedside as well * Sachin Pierce MD - 01/05/2021 6:34 AM EST [facility] I was notified around midnight from the residents about concerns of vaginal bleeding. At that time she was also reported to have some increasing pain. I recommended magnesium bolus and we talked about abruption labs. I talked about the concerns with the residents related to the current GA, abruption with PROM that delivery would be indicated if continued pain/vaginal bleeding as it is a contraindication to continued expectant management. I was notified this am about continued vaginal bleeding mostly when the patient is up to use the restroom and the patient reports increasing pain with each time she is up to the restroom. Vaginal bleeding is noted in the urine hat in the patient's room. Give n these findings of abruption with PROM and the current GA I recommend delivery. I came personally to the bedside to discuss this with the family and talked with anesthesia and Dr. Brice. The tracing was reviewed and overall Cat 1 at this time. Her vitals are stable with low grade temp last noted at midnight. The risks for a including but not limited to risk of injury to surrounding structures, risk of bleeding, hemorrhage, risk for injury to surrounding structures including bowel, bladder and baby. Risk for scarring and VTE as well a low risk for hysterectomy discussed. She is okay with blood t ransfusion if needed and understands the need for a classical given the current GA and thelack of development of the lower uterine segment. Will proceed. aware and the spud sorter will be present. The parents understand that the baby will be transferred to the main campus. Sachin Pierce MD I spent 15 minutes counseling of this patient, questions answered and resident and nursing at the bedside as well * Alberto Greenfield, PhD - 01/04/2021 5:52 PM EST Department of Psychiatry Progress Note Total Time: 20 minutes SUBJECTIVE: It has been a hard day. OBJECTIVE Pt reported that she had a difficult afternoon, and had pelvic pain associated with movement;pt is currently NPO. Pt is hopeful she will not go in labor (pt is 24 weeks today). Pt stated that her and family/ friends are supportive, and she also joined a group on Facebook with ladies in similar situation to hers (that has been very helpful today). Focused on different coping strategies and supportive intervention. No SI/HI. At this time, no manic, no psychotic symptoms present. MENTAL STATUS EXAM Mental Status Exam: Appearance: appropriately dressed and hospital gown, Behavior: cooperative and attentive Activity normal Speech: spontaneous and normal rate Mood: anxious, Affect: congruent with mood, Associations: Goal-Directed Thought content: many general worries Thought process: logical and coherent, Orientation: oriented in all spheres, Attention good. Concentration good. Insight: good , Judgment: good Suicidal Intentions: No Suicidal Plan: No Medications Current Facility-Administered Medications: ferrous sulfate (IRON 325) tablet 325 mg, 325 mg, Oral, Every Other Day lactated ringers infusion, , IntraVENous, Continuous sodium chloride flush 0.9 % injection 5-40 mL, 5-40 mL, IntraVENous, BID acidophilus probiotic capsule 1 capsule, 1 capsule, Oral, Daily HYDROmorphone (DILAUDID) injection 0.25 mg, 0.25 mg, IntraVENous, Q3H PRN OR HYDROmorphone (DILAUDID) injection 0.5 mg, 0.5 mg, IntraVENous, Q3H PRN oxyCODONE (ROXICODONE) immediate release tablet 5 mg, 5 mg, Oral, Q4H PRN OR oxyCODONE (ROXICODONE) immediate release tablet 10 mg, 10 mg, Oral, Q4H PRN tamsulosin (FLOMAX) capsule 0.4 mg, 0.4 mg, Oral, Daily ondansetron (ZOFRAN-ODT) disintegrating tablet 4 mg, 4 mg, Oral, Q8H PRN OR ondansetron (ZOFRAN) injection 4 mg, 4 mg, IntraVENous, Q6H PRN docusate sodium (COLACE) capsule 100 mg, 100 mg, Oral, BID PRN vitamin 27-1 MG tablet 1 tablet, 1 tablet, Oral, Daily [COMPLETED] ampicillin 2000 mg ivpb mini bag, 2,000 mg, IntraVENous, 4 times per day FOLLOWED BY amoxicillin (AMOXIL) capsule 500 mg, 500 mg, Oral, 3 times per day [] azithromycin (ZITHROMAX) 500 mg in sodium chloride 0.9 % 250 mL IVPB (add-vantage), 500 mg, IntraVENous, Q24H FOLLOWED BY azithromycin (ZITHROMAX) tablet 500 mg, 500 mg, Oral, Daily aspirin chewable tablet 81 mg, 81 mg, Oral, Daily albuterol sulfate HFA 108 (90 Base) MCG/ACT inhaler 1 puff, 1 puff, Inhalation, Q6H PRN traZODone (DESYREL) tablet 100 mg, 100 mg, Oral, Nightly PRN diphenhydrAMINE (BENADRYL) injection 25 mg, 25 mg, IntraVENous, Q6H PRN ASSESSMENT AND PLAN Adjustment reaction with mixed anxiety and depressed mood Focused on decreasing depressive/anxiety symptoms and supportive intervention. No SI/HI, pt is future oriented. If you need emergent psychiatric management over the weekend, please call for a psychiatrist computer information systems instructor at [phone]. Will continue to follow as able during this stay. * Mary Lou Velasquez, DO - 01/04/2021 5:40 AM EST Images from the original note were not included. Maternal Medicine Service Resident Progress Note 01/04/2021 6:27 AM 01/01/2021 Hospital Day: 4 [facility], 35 y.o. 24w0d Patient has been seen and examined. Pt is doing well this AM. She states that overnight she passed a stone and continues to have intermittent right flank pain. Patient thinks she may have had mild contractions last night, but those have resolved. Patient denies change in color of fluid, foul-smelling fluid, fever/chills, abd pain, or nausea and vomiting. Positive movement Negative vaginal bleeding Positive LOF Intermittent Contractions Vitals: 01/03/21 1625 01/03/21 2008 01/04/21 0022 01/04/21 0547 BP: 106/75 99/62 94/69 (!) 92/49 Pulse: 85 78 75 74 Resp: Temp: 98.8 F (37.1 C) 98.9 F (37.2 C) 97.1 F (36.2 C) 99.1 F (37.3 C) TempSrc: Temporal Temporal Temporal Temporal SpO2: 95% 95% 95% 95% Weight: Height: FHT: 150, moderate variability Accels: present Decels: absent Contractions: none Physical Exam: Gen: NAD HEENT: Normocephalic, Atraumatic, EOMI, MMM Resp: CTABL, no WRR Card: RRR S1S2 Abd: soft, gravid, NTND, no rebound, no guarding. negative fundal tenderness Ext: No LE edema, no calf tenderness or swelling Medications: Current Facility-Administered Medications Medication Dose Route Frequency Provider Last Rate Last Admin sodium chloride flush 0.9 % injection 5-40 mL 5-40 mL IntraVENous BID Joseph Norma Brice, DO 10 mL at 01/03/21 2222 acidophilus probiotic capsule 1 capsule 1 capsule Oral Daily Mary Lou Velasquez, DO 1 capsule at 01/03/21 0856 HYDROmorphone (DILAUDID) injection 0.25 mg 0.25 mg IntraVENous Q3H PRN Cb Bhardwaj DO Or HYDROmorphone (DILAUDID) injection 0.5 mg 0.5 mg IntraVENous Q3H PRN Cb Bhardwaj DO oxyCODONE (ROXICODONE) immediate release tablet 5 mg 5 mg Oral Q4H PRN Cb Bhardwaj, DO 5 mg at 01/03/21 165 Or oxyCODONE (ROXICODONE) immediate release tablet 10 mg 10 mg Oral Q4H PRN Cb Bhardwaj, DO 10 mg at 01/02/211956 tamsulosin (FLOMAX) capsule 0.4 mg 0.4 mg Oral Daily Simone Maria MD 0.4 mg at 01/03/21 0856 ondansetron (ZOFRAN-ODT) disintegrating tablet 4 mg 4 mg Oral Q8H PRN Cb Bhardwaj DO Or ondansetron (ZOFRAN) injection 4 mg 4 mg IntraVENous Q6H PRN Cb Bhardwaj DO 4 mg at 01/01/21 235 docusate sodium (COLACE) capsule 100 mg 100 mg Oral BID PRN Cb Bhardwaj, DO 100 mg at 01/02/211956 vitamin 27-1 MG tablet 1 tablet 1 tablet Oral Daily Cb Bhardwaj, DO 1 tablet at 01/03/21 0856 amoxicillin (AMOXIL) capsule 500 mg 500 mg Oral 3 times per day Cb Bhardwaj, DO 500 mg at 222 azithromycin (ZITHROMAX) tablet 500 mg 500 mg Oral Daily Cb Bhardwaj DO 500 mg at 01/03/21 0903 aspirin chewable tablet 81 mg 81 mg Oral Daily Cb Bhardwaj DO 81 mg at 01/03/21 0856 albuterol sulfate HFA 108 (90 Base) MCG/ACT inhaler 1 puff 1 puff Inhalation Q6H PRN Cb Bhardwaj DO traZODone (DESYREL) tablet 100 mg 100 mg Oral Nightly PRN Simone Maria MD 100 mg at 01/03/21 2222 diphenhydrAMINE (BENADRYL) injection 25 mg 25 mg IntraVENous Q6H PRN Simone Maria MD Assessment/Plan: Kendall Vasques is a 35 y.o. female 24w0d PPROM - SROM on 12/31 with clear fluid, visually 0-1cm on admission - Transitioned to PO latency abx amox/azith - S/p magnesium sulfate for neuroprotection and BMZx2 for lung maturity - S/p NICU consult, currently desires full resuscitation - Patient doing well, no signs of infection at this time, continue expectant management cHTN - Not on medications - BP remains hypotensive to normotensive - PreE labs negative on admission Stage 2 CKD Nephrolithiasis - Right flank pain is well managed with Oxy PRN - US on 01/02 showed mild right hydronephrosis and multiple renal calculi - S/p urology consult, they recommend pain control PRN and CT scan following delivery - Patient may have passed a stone overnight, specimen was sent to the lab for analysis - Continue Flomax and Oxy PRN for pain Seizure Disorder - Last known seizure 2 weeks ago likely due to stress from - Previously on Keppra - S/p neuro consult, they recommend no further workup necessary and will monitor with seizure precautions - Per neuro, if persistent seizure activity, consider extended EEG Asthma - Asx this AM - Continue albuterol PRN Anxiety - Not on medications - CLP following - Mood is stable this AM IUP @ 24w0d - Dating by first tri US - Breech on 01/01 - MonitorinhrTID - Diet:General - BMZ x2 on 01/01- Further plan pending d/w attending. Mary Lou Velasquez DO 01/04/2021, 6:27 AM Associated attestation - Sachin Pierce MD - 01/04/2021 5:24 PM EST I reviewed and agree with the care provided by the resident/CNM/ANA CRISTINA during the visit including the patient's medical history, the resident's findings in the physical exam, patient's diagnosis and treatment plan. Problems this Prematurity at 24 0/7 weeks GA, breech today on ultrasound with anhydramnios PPROM s/p BMZ X 2 and currently on latency antibiotics low grade temp of 99, s/p magnesium for neuroprotection concerns related to increasing pain, but recent kidney stone passage. See Dr. Velasquez's note regarding speculum examination. No signs of chorio or active labor. Tracing currently Cat 1 at the bedside and no obvious contractions but high risk for labor and chorioamnionitis Stage 2 CKD with nephrolithiasis continued flomax and appreciate urology consultation may continue oral narcotics prn Seizure disorder history s/p neurology consultation Asthma stable Anxiety CLP following slightly tearful this afternoon but suspect situational due to concerns Continue to follow closely for signs and symptoms of active labor. NICU aware and s/p consultation.She is a candidate for magnesium for neuroprotection if any concerns related to delivery . Higher risk for classical and will readdress questions tomorrow as well regarding this. I spent 15 minutes counseling of this patient, questions answered and resident and nursing at the bedside as well * Mary Lou Velasquez DO - 01/03/2021 4:34 PM EST Reviewed pt's records from outside hospital and OB office. 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 The documentation of HSV in her H&P is inaccurate, pt does not have any prior hx of HSV and does not need valtrex at this time. * Noemí Morales, EMORYR - 01/03/2021 8:47 AM EST Nutrition rescreen completed. Chart reviewed. Patient to be monitored and followed by the diet engineering technician. Dietitian available upon request. * Mary Lou Vealsquez, DO - 01/03/2021 6:08 AM EST Images from the original note were not included. Maternal Medicine Service Resident Progress Note 01/03/2021 6:22 AM 01/01/2021 Hospital Day: 3 [facility], 35 y.o. 23w6d Patient has been seen and examined. Pt doing well this AM, no current complaints. Pt denies foul smelling fluid, abd pain, fever, or chills. Reports right flank pain overngiht relieved with single dose of oxycodone. Positive movement Negative vaginal bleeding Positive LOF Negative Contractions Vitals: 01/02/21 1825 01/02/21 1930 01/03/21 0042 01/03/21 0600 BP: 100/60 (!) 97/47 (!) 85/44 Pulse: 82 70 79 78 Resp: 18 Temp: 98.7 F (37.1 C) 98.7 F (37.1 C) 99 F (37.2 C) TempSrc: Oral Temporal Temporal SpO2: 100% 96% 95% Weight: Height: FHT: 130, moderate variability Accels: present Decels: absent Contractions: none Physical Exam: Gen: NAD HEENT: Normocephalic, Atraumatic, EOMI, MMM Resp: CTABL, no WRR Card: RRR S1S2 Abd: soft, gravid, NTND, no rebound, no guarding. negative fundal tenderness Ext: No LE edema, no calf tenderness or swelling Medications: Current Facility-Administered Medications Medication Dose Route Frequency Provider Last Rate Last Admin lactated ringers infusion IntraVENous Continuous Simone Maria MD 125 mL/hr at 01/02/21 0824 NewBag at 01/02/21 0824 acidophilus probiotic capsule 1 capsule 1 capsule Oral Daily Mary Lou Velasquez, DO 1 capsule at 01/02/21 1210 HYDROmorphone (DILAUDID) injection 0.25 mg 0.25 mg IntraVENous Q3H PRN Cb Bhardwaj, DO Or HYDROmorphone (DILAUDID) injection 0.5 mg 0.5 mg IntraVENous Q3H PRN Cb Bhardwaj, DO oxyCODONE (ROXICODONE) immediate release tablet 5 mg 5 mg Oral Q4H PRN Cb Bhardwaj, DO Or oxyCODONE (ROXICODONE) immediate release tablet 10 mg 10 mg Oral Q4H PRN Cb Bhardwaj, DO 10 mg at 01/02/211956 tamsulosin (FLOMAX) capsule 0.4 mg 0.4 mg Oral Daily Siomne Maria MD 0.4 mg at 01/03/21 0038 ondansetron (ZOFRAN-ODT) disintegrating tablet 4 mg 4 mg Oral Q8H PRN Cb Bhardwaj DO Or ondansetron (ZOFRAN) injection 4 mg 4 mg IntraVENous Q6H PRN Cb Bhardwaj, DO 4 mg at 01/01/212350 docusate sodium (COLACE) capsule 100 mg 100 mg Oral BID PRN Cb Bhardwaj DO 100 mg at 01/02/211956 vitamin 27-1 MG tablet 1 tablet 1 tablet Oral Daily Cb Bhardwaj, DO 1 tablet at 01/02/21821 amoxicillin (AMOXIL) capsule 500 mg 500 mg Oral 3 times per day Cb Bhardwaj, DO 500 mg at 602 azithromycin (ZITHROMAX) tablet 500 mg 500 mg Oral Daily Cb Bhardwaj DO aspirin chewable tablet 81 mg 81 mg Oral Daily Cb Bhardwaj, DO 81 mg at 01/02/21821 albuterol sulfate HFA 108 (90 Base) MCG/ACT inhaler 1 puff 1 puff Inhalation Q6H PRN Cb Bhardwaj DO traZODone (DESYREL) tablet 100 mg 100 mg Oral Nightly PRN Simone Maria MD 100 mg at 01/02/212199 diphenhydrAMINE (BENADRYL) injection 25 mg 25 mg IntraVENous Q6H PRN Simone Maria MD Assessment/Plan: Kendall Vasques is a 35 y.o. female 23w6d PPROM - SROM on 12/31 with clear fluid, visually 0-1cm on admission - Transitioned to PO latency abx amox/azith - S/p magnesium sulfate for neuroprotection and BMZx2 for lung maturity - S/p NICU consult, currently desires full resuscitation cHTN - Not on meds, BP remains normotensive - PreE labs negative on admission Stage 2 CKD Nephrolithiasis - right flank pain resolved with PRN Oxy overnight, started on flomax - US on 01/02 showed mild R hydronephrosis and multiple renal calculi - Cr on admission 0.59 - urine culture negative - s/p urology consult, they recommend pain control PRN and to check post void residual volume - Per urology, if pain worsens or patient becomes unstable, may require ureteral stent or PNT Seizure Disorder - Last known seizure 2 weeks ago likely due to stress from - Previously on Keppra - s/p Neuro consult, they recommend no further workup necessary and will monitor with seizure precautions - Per neuro, if persistent seizure activity, consider extended EEG Asthma - asx this AM - continue Albuterol PRN IUP @ 23w6d - Dating [facility] - MonitorinhrTID - Diet:General - BMZ x2 on 01/01- Further plan pending d/w attending. Mary Lou Velasquez DO 01/03/2021, 6:22 AM Associated attestation - Colleen Salvador MD - 01/03/2021 1:19 PM EST MFM ATTESTATION The chart was reviewed. The patient was seen and evaluated with residents. I independently evaluated the patient. Agree with findings and plans as documented. The patient had no specific complaints other than continued mild right sided pain consistent with her prior kidney stone. T he patient denies signs or symptoms of clinical chorioamnionitis. The uterine fundus is soft and nontender on examination. Urology is now following to assist in the management of the patient's kidney stones. No new recommendations at this time. The fetus and patient are stable for continued expectant management. Precautions and warning reviewed with the patient. Colelen Salvador MD, LEROY Maternal Medicine Time Statement: A total of 15 minutes was take to complete this encounter of which greater than 50 percent was in face to face consultation and coordination of care. imv * Alberto Greenfield, PhD - 01/02/2021 2:21 PM EST Consult received, electronic medical record reviewed. Attempted to meet with pt; pt sound asleep atthis time. Will return at a later date. * Nivia Domingo - 01/02/2021 11:00 AM EST Spiritual Care Follow-Up Note [facility] Patient Name:Kendall Delhi Reason for visit: Spiritual Consult List Services Provided To:patient Background: Patient was recently admitted for water breaking early on in . Patient is 23 weeks desiring to make it to 30 weeks. She was wondering if she did anything wrong for this to happen. The nurse told her it wasn't her fault. Patient desired prayer support for her and baby girl, family and . She and her have been trying for 8 months. This is their 1st . She talked about her grandfather who recently passed a couple months of ago. She believes he iswatching over her and the baby like a guardian willi. Patient teary-eyed at times during visit. Assessment: Patient's hope is to make it to 30 weeks and/or after Day to give . She believes in miracles leaning on her steev. Patient Progress towards goals: Plan:Follow up Follow-Up:MORIS Domingo * Mary Lou Velasquez DO - 01/02/2021 5:47 AM EST Images from the original note were not included. Maternal Medicine Service Resident Progress Note 01/02/2021 5:47 AM 01/01/2021 Hospital Day: 2 Kendall Vasques, 35 y.o. 23w5d Patient has been seen and examined. Pt c/o mild right flank pain overnight, UA was negative and pain resolved with IVF. Otherwise doing well, denies foul smelling fluid, abd pain, fever or chills. Positive movement Negative vaginal bleeding Positive LOF Negative Contractions Vitals: 01/01/21 1455 01/01/21 1509 01/01/21 1510 01/01/21 1525 BP: (!) 97/57 Pulse: 88 80 80 83 Resp: 18 Temp: 98.4 F (36.9 C) TempSrc: Oral SpO2: 100% 100% Weight: Height: FHT: 140, moderate variability Accels: present Decels: rare variable decel Contractions: none Physical Exam: Gen: NAD HEENT: Normocephalic, Atraumatic, EOMI, MMM Resp: CTABL, no WRR Card: RRR S1S2 Abd: soft, gravid, NTND, no rebound, no guarding. negative fundal tenderness Ext: No LE edema, no calf tenderness or swelling Medications: Current Facility-Administered Medications Medication Dose Route Frequency Provider Last Rate Last Admin lactated ringers infusion IntraVENous Continuous Simone Maria MD 125 mL/hr at 01/02/21 0300 NewBag at 01/02/21 0300 ondansetron (ZOFRAN-ODT) disintegrating tablet 4 mg 4 mg Oral Q8H PRN Cb Bhardwaj DO Or ondansetron (ZOFRAN) injection 4 mg 4 mg IntraVENous Q6H PRN Cb Bhardwaj DO 4 mg at 01/01/21 2351 docusate sodium (COLACE) capsule 100 mg 100 mg Oral BID PRN Cb Bhardwaj DO vitamin 27-1 MG tablet 1 tablet 1 tablet Oral Daily Cb Bhardwaj DO ampicillin 2000 mg ivpb mini bag 2,000 mg IntraVENous 4 times per day Cb Bhardwaj DO 200 mL/hr at103/03/20 2349 2,000 mg at 01/01/21 2349 Followed by [START ON 01/03/2021] amoxicillin (AMOXIL) capsule 500 mg 500 mg Oral 3 times per day Cb Bhardwaj DO azithromycin (ZITHROMAX) 500 mg in sodium chloride 0.9 % 250 mL IVPB (add- vantage) 500 mg IntraVENous Q24H Cb Bhardwaj DO 250 mL/hr at 01/02/21421 500 mg at 01/02/21421 Followed by [START ON 01/03/2021] azithromycin (ZITHROMAX) tablet 500 mg 500 mg Oral Daily Cb Bhardwaj DO aspirin chewable tablet 81 mg 81 mg Oral Daily Cb Bhardwaj DO 81 mg at 01/01/21 1258 albuterol sulfate HFA 108 (90 Base) MCG/ACT inhaler 1 puff 1 puff Inhalation Q6H PRN Cb Bhardwaj DO traZODone (DESYREL) tablet 100 mg 100 mg Oral Nightly PRN Simone Maria MD 100 mg at 01/01/212102 diphenhydrAMINE (BENADRYL) injection 25 mg 25 mg IntraVENous Q6H PRN Simone Maria MD Assessment/Plan: Kendall Vasques is a 35 y.o. female 23w5d PPROM -SROM on 12/31 with clear fluid, visually 0-1cm on admission -Continue latency abx amp/azith -S/p magnesium sulfate for neuroprotection and BMZx2 for lung maturity -S/p NICU consult, currently desires full resuscitation cHTN -Not on meds, BP remains normotensive -PreE labs negative on admission Stage 2 CKD Nephrolithiasis -mild right flank pain overnight resolved with IVF and neg UA -Noted to have 10+ kidney stones on Right at 15wks in ED -Cr on admission 0.59 -Will consult urology today for management recs of nephrolithiasis Seizure Disorder -Last known seizure 2 wks ago likely due to stress from -Previously on Keppra -S/p Neuro consult, no further workup needed and will monitor with seizure precautions given -Per neuro recs, if persistent seizure activity consider extended EEG Asthma -asymptomatic this AM, albuterol PRN IUP @ 23w5d - Dating by first tri US - Breech on 01/01 - Monitoring:CE[facility] - Diet:General - BMZ x2 on 01/01 Further plan pending d/w attending. Mary Lou Velasquez DO 01/02/2021, 5:47 AM Associated attestation - Colleen Salvador MD - 01/02/2021 9:38 AM EST MFM ATTESTATION The chart was reviewed. The patient was seen and evaluated with residents. I independently evaluated the patient. Agree with findings and plans as documented. The patient denies signs or symptoms of clinical chorioamnionitis. The patient does report worsening back pain and lower abdominal cramping consistent with the pain that she has had with previous kidney stones. The patient states that she has a 6 mm kidney stone that still has not passed yet. She is concerned that perhaps the stone is trying to pass. A urology consultation will be obtained to assist in the management of the patient's nephrolithiasis. For overall patient wellbeing, a psychology consultation and assembly machine operator consultation will be obtainedtoday. As this patient is currently stable, have suggested consideration for decreasing surveillance to 1 hour 3 times daily and as requested by the patient. The fetus and patient are stable for continued expectant management. Precautions and warning reviewed with the patient. Colleen Salvador MD, LEROY Maternal Medicine Time Statement: A total of 15 minutes was take to complete this encounter of which greater than 50 percent was in face to face consultation and coordination of care. imv * Simone Maria MD - 01/02/2021 3:08 AM EST Notified by RN of some hematuria and worsening right flank pain. Patient states that she is having worsening sharp pain of her right flank and back that radiates to the groin. This is consistent withprevious episodes of nephrolithiasis. Some pink tinge in urine. Denies pelvic pain, VB, or worsening LOF. VSS, afebrile. Abdomen soft, nontender, no fundal tenderness. No CVA tenderness. Pt declined pelvic exam. FHT overall cat I but with rare variable. No ctx on toco. Low concern this is related to chorioamnionitis or PTL. Will give 500cc fluid bolus and send urinalysis. Urine culture on admission is still pending. Can consider flomax or retroperitoneal u/s in am. Continue to monitor. * Colleen Salvador MD - 01/01/2021 12:42 PM EST Maternal Medicine Progress Note The chart was reviewed. The patient was seen and evaluated with the residents. I independently evaluated the patient. The patient was accompanied by her . Hospital Day Number 1 Subjective The patient denies signs or symptoms of clinical chorioamnionitis. She denies fevers, chills, abdominal tenderness, or change in vaginal discharge. The patient denies cramps or contractions. The patient reports good movement. The patient does report that during initial speculum examination she did have clots removed. Since that time, the patient does not report bleeding. She has had some spotting occasionally. The patient has no other specific complaints at this time. Allergies Allergen Reactions Shellfish-Derived Products Anaphylaxis Baclofen Lost bowel and bladder function, slurred speech Codeine Flagyl [Metronidazole] Other (See Comments) Seizures Topamax [Topiramate] Other (See Comments) Lost bowel and bladder function, slurred speech Adhesive Tape Rash Social History Tobacco Use Smoking Status Never Smoker Smokeless Tobacco Never Used Current Facility-Administered Medications: lactated ringers infusion, , IntraVENous, Continuous betamethasone acetate-betamethasone sodium phosphate (CELESTONE) injection 12 mg, 12 mg, IntraMUSCular, Once ondansetron (ZOFRAN-ODT) disintegrating tablet 4 mg, 4 mg, Oral, Q8H PRN OR ondansetron (ZOFRAN) injection 4 mg, 4 mg, IntraVENous, Q6H PRN docusate sodium (COLACE) capsule 100 mg, 100 mg, Oral, BID PRN vitamin 27-1 MG tablet 1 tablet, 1 tablet, Oral, Daily ampicillin 2000 mg ivpb mini bag, 2,000 mg, IntraVENous, 4 times per day FOLLOWED BY [START ON 01/03/2021] amoxicillin (AMOXIL) capsule 500 mg, 500 mg, Oral, 3 times per day azithromycin (ZITHROMAX) 500 mg in sodium chloride 0.9 % 250 mL IVPB (add- vantage), 500 mg, IntraVENous, Q24H FOLLOWED BY [START ON 01/03/2021] azithromycin (ZITHROMAX) tablet 500 mg, 500 mg, Oral, Daily aspirin chewable tablet 81 mg, 81 mg, Oral, Daily albuterol sulfate HFA 108 (90 Base) MCG/ACT inhaler 1 puff, 1 puff, Inhalation, Q6H PRN Objective: Vitals: 01/01/21 0343 01/01/21 0615 01/01/21 0953 BP: 112/67 (!) 95/55 Pulse: 96 91 Resp: 18 Temp: 98.1 F (36.7 C) 98.2 F (36.8 C) TempSrc: Oral Weight: 135 lb (61.2 kg) Height: 5' 4 (1.626 m) General Appearance: Comfortable. Lungs: Normal effort. Abdomen/Uterine Fundus - soft, nontender. No guarding. Laboratory assessment: CBC with Differential: Lab Results Component Value Date WBC 11.4 01/01/2021 HGB 11.3 01/01/2021 HCT 34.9 01/01/2021 PLT 214 01/01/2021 Lab Results Component Value Date NA 139 01/01/2021 K 4.0 01/01/2021 CL 110 01/01/2021 CO2 21 01/01/2021 BUN 7 01/01/2021 CREATININE 0.59 01/01/2021 GLUCOSE 123 01/01/2021 PROT 6.9 01/01/2021 LABALBU 3.8 01/01/2021 CALCIUM 8.2 01/01/2021 BILITOT 0.4 01/01/2021 ALKPHOS 62 01/01/2021 AST 34 01/01/2021 ALT 20 01/01/2021 IMAGING: The sonogram today shows a rossi intrauterine with positive cardiac activity. The fetus is in a breech presentation. The amniotic fluid volume is markedly decreased with no measurable pockets identifiable at this time. The overall mean estimated weight is at the 23rd percentile for sign gestational age with an abdominal circumference of the 7th percentile. The abdominal circumference below the 10th percentile meets criteria for diagnosis of suspected growth restriction. However, an element of technical artifact cannot be excluded. The umbilical artery Doppler studiesare within normal limits. Please see ultrasound report under separate cover for a review of the findings. heart rate tracing -The heart rate tracing is intermittent. This is most likely due to early gestational age andfetal movement. Overall, the tracing that is available for review is reassuring with good variability and accelerations. Impression/Recommendations 1. Rossi intrauterine at 23w4d -Overall wellbeing reassuring at this time. The patient is receiving a course of betamethasone. The second injection is due this evening. 2. Prelabor rupture of membranes The etiology for prelabor rupture membranes is often unclear. There are multiple potential etiologies including idiopathic, which implies no identifiable cause. There is no diagnostic test available to ascertain definitively the etiology/cause of prelabor rupture membranes. This was explained and discussed with this couple in detail. I have explained to this couple that a future would be managed with different interventions to help decrease the risk of a similar occurrence. Without a known etiology, prevention is not possible however decreasing the risk for recurrence is important. A maternal- medicine consultation early in the course of a future or a preconceptionconsultation is recommended. The usual management of prelabor rupture membranes was explained and described in detail. The patient is currently receiving betamethasone for acceleration of lung maturity, decreasing intraventricular hemorrhage, and decreasing necrotizing enterocolitis. The patient is receiving magnesium sulfate for neuro protection. The patient is receiving latency antibiotics. The rationale for 7 days of latency antibiotics was reviewed and discussed in detail. The potential endpoints for were explained and discussed in detail. These endpoints include but are not limited to: Signs and symptoms of chorioamnionitis; maternal fever; diffuse uterine tenderness; nonreassuring being; contraction activity/labor; profuse vaginal bleeding; and 34 weeks of gestational age. Each of these was described and discussed in detail. Subtle signs such as tachycardia would need to be evaluated on a [id number] basis. New onset and persistent tachycardia can be a subtle sign of intrauterine infection. At this time, the patient does not have signs or symptoms of clinical chorioamnionitis. The heart rate tracing is reassuring. --Therefore, at this time the patient and fetus are stable for expectant management. --Neonatology has been consulted. 3. Suspected intrauterine growth restriction Today's sonogram shows an abdominal circumference less than the 10th percentile. Therefore, this meets criteria for the diagnosis of suspected growth restriction. With absence of amniotic fluid, an element of technical artifact cannot be excluded. Regardless, recommend management for suspected growth restriction including but not limited to she will sonograms for growth assessment approximately every 2 weeks, this patient is undergoing continuous monitoring, weekly umbilical artery Doppler studies and weekly biophysical prof ile. More frequent monitoring may become indicated. The patient and her verbalized understanding of the above discussion and had a questions addressed to their satisfaction. Colleen Salvador MD, LEROY Maternal Medicine Time Statement: A total of 45 minutes was take to complete this encounter of which greater than 50 percent was in face to face consultation and coordination of care. imv documented in this encounterSUMMA Work Phone: [phone] History of Present illness Narrative* Alexandrumoe Ramirez Jr., DPM - 12/21/2020 3:11 PM EDT Toe trauma Patient is a pleasant 35-year-old female who comes in today with left great toe trauma. She states that on Thursday, she whacked her toe on the top of the pack and play. States that she noticed some blood right away in her sock and ultimately later that night her assisted and ripping her toenail off the rest of the way. She states that she has been trying to keep antibiotic ointment on it and comes in today to make sure that it is okay. Her primary concern is that she is 22 weeks and wants to make sure that all is well and no extra steps need to be taken. Physical Vascular: DP PT pulses are easily palpable 2-4. CFT is fair no edema. Derm: Her nails entirely avulsed base is granular no streaking no lymphangitis no purulence no undermining no crepitation no fluctuance no signs of infection. Neuro: Light touch is normal Babinski's is normal. Musculoskeletal: IPJ is full and pain-free, can easily wiggle toes without any clicking or catching. Assessment and plan: Patient is a pleasant 35-year-old female with a left great nail traumatic avulsion. -At this time there is no sign of clinical cellulitis or any risk that should change her course of . -No antibiotics orally required however can apply topical triple anabolic ointment daily for the next 5 days with a Band-Aid. Start remove the bandage during nighttime this week and follow-up in an as-needed basis for this or any new issues. Straightforward medical complexity decision making. documented in this [id number] History of Present illness Narrative* Marco Blount LPN - 09/10/2020 8:15 AM EDT Nurse Note: Review of Systems Gastrointestinal: Positive for constipation, diarrhea and vomiting. Neurological: Positive for dizziness, seizures and syncope. Hematological: Bruises/bleeds easily. Psychiatric/Behavioral: Positive for sleep disturbance. Nursing Assessment: Oxygen use ___no Most recent CT-04/11/2020 Most recent PFT- none Symptoms include: Increase in shortness of breath-no Dyspnea upon exertion-no Dyspnea at rest-no Cough- productive-no Pt presents for review of symptoms Pt has rescue inhaler Pt is currently . * Dale Valadez MD - 09/10/2020 8:15 AM EDT Patient is a 34 y.o. female who came to be evaluated and managed for Other (New Patient-Asthma/ROSA) . ICD-10-CM 1. Mild intermittent asthma without complication J45.20 EXERCISE-6 MIN. WALK PFT COMPLETE ALPHA 1 ANTITRYPSIN CBC, EDIF, PLATELET IMMUNOGLOBULIN IGE ALLERGEN PROFILE, MOLD MINI-PANEL ALLERGEN PROFILE budesonide-formoterol 160-4.5 mcg/puff Aerosol inhaler SPACER FOR INHALER PRESCRIPTION 2. Vocal cord dysfunction J38.3 AMB REFERRAL TO OTOLARYNGOLOGY 3. Secondary pulmonary arterial hypertension I27.21 ECHOCARDIOGRAM 4. Vitamin D deficiency E55.9 5. Screening for viral disease Z11.59 VITAMIN D (25-HYDROXY,TOTAL) NOVEL CORONAVIRUS Problem List Items Addressed This Visit Mild intermittent asthma without complication - Primary - Severity: mild - 09/10/20: about 6 wks - Try ICS Budesonide or Budesonide-Formoterol (Symbicort), if feasible; cont. albuterol as needed; use spacer - may also use duonebs; budesonide+formoterol nebs alternatively - patient benefits from nebulizer treatments - Inhaler technique teaching done/reviewed prev.; rinse mouth after inhaler use especially after inhaled steroids - consider Montelukast - consider Allergy testing, check Eosinophils, IgE - Consider other controller meds, Biologics subsequently, if indicated - Avoid/control triggers; environmental control prn - control GERD as indicated - Smoking cessation: nonsmoker - monitor PFT, as indicated. - Consider Methacholine Challenge Test, if indicated - consider Peak Flow monitoring, Asthma Action Plan subseq., if necessary - ffup imaging as needed, Chest XRay as indicated (CT Chest if indicated) - Pulmonary rehab program: as indic., if feasible; rec to stay active - Influenza, pneumococcal, (COVID19 vaccine post-) vaccines recommended, updated Relevant Medications budesonide-formoterol 160-4.5 mcg/puff Aerosol inhaler SPACER FOR INHALER PRESCRIPTION Other Relevant Orders EXERCISE-6 MIN. WALK PFT COMPLETE ALPHA 1 ANTITRYPSIN CBC, EDIF, PLATELET IMMUNOGLOBULIN IGE ALLERGEN PROFILE, MOLD MINI-PANEL ALLERGEN PROFILE Vocal cord dysfunction History of Stridor;may have element of VCD, PVFD - refer to ENT Dr. Miller Relevant Orders AMB REFERRAL TO OTOLARYNGOLOGY Secondary pulmonary arterial hypertension May develop secondary Pulmonary Hypertension related to cardiopulmonary disease (WHO Grp 3). - monitor Echocardiogram as indicated - consider RHC Right heart catheterization, as indicated - optimize underlying conditions - consider sleep study, as indicated Relevant Orders ECHOCARDIOGRAM Other Visit Diagnoses Vitamin D deficiency Screening for viral disease Relevant Orders VITAMIN D (25-HYDROXY,TOTAL) NOVEL CORONAVIRUS Asthma She complains of chest tightness, cough, frequent throat clearing, shortness of breath, sputum production and wheezing. There is no hemoptysis or hoarse voice. This is a chronic problem. The current episode started more than 1 year ago (Nonsmoker; Asthma since childhood). The problem occurs intermittently. The problem has been unchanged. The cough is productive of sputum. Associated symptoms include postnasal drip and rhinorrhea. Pertinent negatives include no chest pain, fever, heartburn, orthopnea, sore throat or trouble swallowing. Her symptoms are aggravated by URI, exposure to fumes and exercise. Her symptoms are alleviated by beta-agonist and rest. She reports significant improvement on treatment. Her past medical history is significant for asthma, bronchitis and pneumonia. There isno history of bronchiectasis, COPD or emphysema. 09/10/20: BACKGROUND HISTORY - Nonsmoker; history of asthma; on Albuterol, Duonebs. - 09/10/20: about 6 weeks - admitted to [facility] 06/2020: possible Asthma AE, stridor; Gabapentin Withdrawal. Given steroids, inhaled meds, azithromycin. Seen by Addiction Medicine also. DC'd w/ Baclofen, Topamax, Dicyclomine; on room air. - details below - 07/13/20 CT Neck [facility] reviewed: Impression: No obvious CT evidence for epiglottitis or tonsillitis. No abnormal fluid collection is seen in thesoft tissues of the neck to suggest abscess. Multiple small cervical lymph nodes are seen bilaterally measuring up to 1 cm in short axis. - 07/13/20 CXR [facility] reviewed: Impression: Possible peribronchial infiltrate in the left upper lobe. HOSPITALIST DISCHARGE SUMMARY Patient: Kendall Vasques Account: [id number] Admitted: 07/13/2020 Discharge Date/Time: 07/18/2020 Clinical Summary FINAL DIAGNOSIS: Principal Problem: Asthma exacerbation attacks Asthma exacerbation attacks gabapentin withdrawal Abdominal pain-negative CT without contrast on admission Cervical LAD Concern for CAP-less likely Nonobstructive nephrolithiasis-3 mm stone, no hydronephrosis Anxiety REASON FOR HOSPITALIZATION AND ADMITTING DIAGNOSIS: Respiratory Distress Stridor [R06.1] Acute URI [J06.9] Respiratory distress [R06.03] Asthma exacerbation attacks [J45.901] HOSPITAL COURSE: Patient is a 34-year-old female with a history of restless leg syndrome on gabapentin chronically, asthma who presented to hospital with possible asthma exacerbation and stridor. She was initially inrespiratory distress. She was admitted to medical floor and started on steroids and inhalers and azithromycin. She was noted to have anxiety, shakiness and headache. Patient actually was found to have flulike symptoms later thought to be due to gabapentin withdrawal. She was on 3200 mg/day and was decreased all the way down to 100 mg 3 times daily because she was trying to get she did not want to be on a high dose. She usually gets this from her PCP. Patient was started on gabapentin 40 0mg 3 times daily during this hospitalization along with baclofen and Topamax and this will help with her significant . After starting this regimen patient symptoms completely resolved. She was discharged home after evaluation by addiction medicine. Patient did not show any seeking behavior. Patient has cervical lymphadenopathy noted on her CT scan that was done initially for stridor. She will need to follow-up as outpatient to ensure the resolution of these lymphadenopathy. Most likely possibly due to upper respiratory tract infection possible URI. He was educated on this and will follow up.She was discharged on taper of gabapentin as per addiction medicine recommendation along with baclofen and Topamax. She will need to follow-up with addiction medicine as outpatient. Current Outpatient Medications: acetaminophen 500 MG tablet, Take 1,000 mg by mouth., Disp: , Rfl: albuterol 108 (90 Base) MCG/ACT Aero Soln inhaler, Inhale 1 puff every 4 hours as needed for Wheezing., Disp: 1 Inhaler, Rfl: [address] tablet, Take 81 mg by mouth daily., Disp: , Rfl: cyclobenzaprine 5 MG tablet, Take 5 mg by mouth at bedtime as needed., Disp: , Rfl: Diphenhydramine-APAP, sleep, (TYLENOL PM EXTRA STRENGTH PO), Take 500 mg by mouth every 4 hours as needed., Disp: , Rfl: docusate (Colace) 100 MG capsule, Take 1 capsule by mouth 2 times daily., Disp: 60 capsule, Rfl: 2 ipratropium-albuterol 0.5-2.5 (3) MG/3ML nebulizer solution, Inhale 3 ml (1 vial) via nebulizer every 6 hours, Disp: , Rfl: 0 Vit-Fe Fumarate-FA (/Folic Acid) tablet, Take 1 tablet by mouth daily., Disp: 30 tablet, Rfl: 11 Vit-Iron Carbonyl-FA (Thrivite Rx) 29-1 MG tablet, Take 1 tablet by mouth daily., Disp: , Rfl: trazodone 100 MG tablet, Take 1 tablet by mouth every evening at 6 PM., Disp: 30 tablet, Rfl: 1 budesonide-formoterol 160-4.5 mcg/puff Aerosol inhaler, Inhale 2 puffs every 12 hours., Disp: 10.2 g, Rfl: 5 dicyclomine 20 MG tablet, Take 1 tablet by mouth every 6 hours. For abdominal spasms, Disp: 30 tablet, Rfl: 0 gabapentin 800 MG Tab, Take 300 mg by mouth 2 times daily. , Disp: , Rfl: 1 ketorolac 10 MG tablet, Take 1 tablet by mouth every 6 hours as needed for Mild Pain for up to 5 days. Do not take for more than 5 days., Disp: 15 tablet, Rfl: 0 ondansetron 4 MG Tab Dispersible tablet, Take 1 tablet by mouth every 4 hours as needed for Nausea.Place on tongue (Patient not taking: Reported on 09/10/2020), Disp: 30 tablet, Rfl: 0 promethazine 25 MG tablet, Take 1 tablet by mouth every 6 hours as needed., Disp: 12 tablet, Rfl: 0 SPACER FOR INHALER PRESCRIPTION, Use with inhaler as directed, Disp: 1 Each, Rfl: 0 Past Medical History: Diagnosis Date Acute allergic rhinitis Anxiety Asthma Chronic pain Epilepsy Essential hypertension, benign Fibromyalgia Hypoglycemia Hypoglycemia 09/19/2016 Kidney disease 2018 Kidney stones Migraine Nephrolithiasis ROSA (obstructive sleep apnea) PID (pelvic inflammatory disease) Restless leg syndrome Seizure Past Surgical History: Procedure Laterality Date OTHER SURGICAL N/A 02/2020 OBGYN laproscopic unwound intestine. ABLATION NERVE RADIOFREQUENCY PULSED N/A 12/09/2019 [facility] nerve ablation to back L5-L11 VAGINAL SURGERY Bilateral 05/2017 Bilateral Labia Reduction COLONOSCOPY DIAGNOSTIC N/A 09/19/2016 Laterality: N/A; Surgeon: Jennifer Crow MD; Location: [facility] OR EGD DIAGNOSTIC N/A 09/19/2016 Laterality: N/A; Surgeon: Jennifer Crow MD; Location: [facility] OR SALPINGO-OOPHORECTOMY LAPAROSCOPIC Right 03/2013 HPV CYSTOURETHROSCOPY W/ URETEROSCOPY/PYELOSCOPY W/ LITHOTRIPSY INCL STENT INSERTION Right 2011 BREAST BIOPSY benign TONSILLECTOMY ADENOIDECTOMY Social History Tobacco Use Smoking status: Never Smoker Smokeless tobacco: Never Used Substance Use Topics Alcohol use: Yes Comment: occasionally Family History Problem Relation Age of Onset Stroke Father Hypertension Father Lipid Disorder Father Hypertension Maternal Grandmother Hypertension Maternal Grandfather Myocardial Infarction Maternal Grandfather Diabetes Maternal Grandfather Stroke Maternal Grandfather Depression Sister Cervical Cancer Maternal Aunt Breast Cancer Paternal Grandmother No known problems Mother Allergies Allergen Reactions Codeine And Related hives Shrimp Extract Allergy Skin Test Hives and Swelling *Adhesive Tape Rash Codeine Hives and Nausea and Vomiting Metronidazole Seizures Nsaids Topiramate Pt tolerated Topamax on 07/17 well during inpatient stay without any symptoms Tramadol Seizures Review of Systems Constitutional: Negative for fever. HENT: Positive for postnasal drip and rhinorrhea. Negative for hoarse voice, sore throat and trouble swallowing. Respiratory: Positive for cough, sputum production, shortness of breath and wheezing. Negative for hemoptysis. Cardiovascular: Negative for chest pain. Gastrointestinal: Negative for heartburn. Nurse Note: Review of Systems Gastrointestinal: Positive for constipation, diarrhea and vomiting. Neurological: Positive for dizziness, seizures and syncope. Hematological: Bruises/bleeds easily. Psychiatric/Behavioral: Positive for sleep disturbance. Nursing Assessment: Oxygen use ___no Most recent CT-04/11/2020 Most recent PFT- none Symptoms include: Increase in shortness of breath-no Dyspnea upon exertion-no Dyspnea at rest-no Cough- productive-no Pt presents for review of symptoms Pt has rescue inhaler Pt is currently . Vitals: 09/10/20 0801 BP: 108/62 Pulse: 76 Resp: 18 Temp: 97.9 degrees F (36.6 degrees C) SpO2: 99% Weight: 57.6 kg (126 lb 14.4 oz) Height: 1.626 m (5' 4) Physical Exam Vitals and nursing note reviewed. Constitutional: General: She is not in acute distress. HENT: Head: Normocephalic and atraumatic. Right Ear: External ear normal. Left Ear: External ear normal. Nose: No congestion or rhinorrhea. Mouth/Throat: Mouth: Mucous membranes are moist. Pharynx: Oropharynx is clear. No oropharyngeal exudate or posterior oropharyngeal erythema. Eyes: General: No scleral icterus. Conjunctiva/sclera: Conjunctivae normal. Pupils: Pupils are equal, round, and reactive to light. Neck: Vascular: No JVD. Trachea: No tracheal deviation. Cardiovascular: Rate and Rhythm: Normal rate and regular rhythm. Heart sounds: Normal heart sounds. Pulmonary: Effort: Pulmonary effort is normal. No respiratory distress. Breath sounds: No stridor. No wheezing, rhonchi or rales. Chest: Chest wall: No tenderness. Genitourinary: Comments: Deferred Musculoskeletal: Cervical back: Neck supple. Right lower leg: No edema. Left lower leg: No edema. Lymphadenopathy: Cervical: No cervical adenopathy. Skin: General: Skin is warm and dry. Coloration: Skin is not jaundiced. Findings: No rash. Neurological: General: No focal deficit present. Mental Status: She is alert and oriented to person, place, and time. Psychiatric: Mood and Affect: Mood normal. Behavior: Behavior normal. I personally reviewed selected chart notes, results, interpreted tests, imaging today before seeingthe pt; reviewed and discussed w/ pt, questions answered - 07/13/20 CXR [facility] reviewed: Impression: Possible peribronchial infiltrate in the left upper lobe. - 07/13/20 CT Neck w/ contrast [facility] reviewed: Impression: No obvious CT evidence for epiglottitis or tonsillitis. No abnormal fluid collection is seen in thesoft tissues of the neck to suggest abscess. Multiple small cervical lymph nodes are seen bilaterally measuring up to 1 cm in short axis. EXAMINATION: CT SOFT TISSUE NECK WITH CONTRAST HISTORY: ORDERING SYSTEM PROVIDED HISTORY: Epiglottitis or tonsillitis suspected, TECHNOLOGIST PROVIDED HISTORY: Illness/Other Reason for exam: Epiglottitis or tonsillitis suspected Encounter Type: Initial Additional signs and symptoms: [facility] ORDERING SYSTEM PROVIDED DIAGNOSIS CODES: R06.03 Respiratory distress R06.1 Stridor J06.9 Acute URI COMPARISON: None FINDINGS: The visualized airway appears unremarkable. The nasopharynx, oropharynx, hypopharynx appear unremarkable. The epiglottis and aryepiglottic folds have an unremarkable appearance. The visualized trachea and esophagus also appear unremarkable. No significant tracheal wall thickening is seen. The tracheal bifurcation appears unremarkable. No tonsillar or peritonsillar abnormal density or abscess is seen. The prevertebral and paravertebral soft tissues appear unremarkable. Multiple small cervical lymph nodes are seen bilaterally measuring up to 1 cm in short axis. The visualized vascular structures of the neck appear unremarkable. The visualized lung apices appear clear. Bilateral thyroid lobes demonstrate normal size and density. The cervical spine demonstrates normal lordotic curvature. The cervical vertebral bodies demonstrate normal height and alignment. The central canal appears patent. Bilateral parietal and submandibular glands appear unremarkable. The visualized orbits, paranasal sinuses and ethmoid air cells appear within normal limits. The visualized brain parenchyma appears unremarkable. Immunization Administrations Td Vaccine 2-2 LF 09/04/2014 (28 y.o.) Return in about 6 weeks (around 10/22/2020). 4-6 wks FOLLOW-UP Patient was advised to call with any questions or concerns. If symptoms worsen or fail to improve patient was advised to call for follow up in our office and/or PCP, or go to the Emergency Dept. Benefits, Risks, Contraindications, and Complications of recommended treatments were explained, and the patient stated understanding and agreement to proceed with plan. (The above report was entered in part using [employer] voice recognition medical dictation software. Although I have reviewed this report for accuracy, certain words and phrases may not be entered as intended. Please excuse typographical and grammatical errors.) Dale Montoya MD, MPH, [facility] Pulmonary/Critical Care Medicine 09/10/2020 documented in this [facility]07-26-2021 Miscellaneous Notes* Assessment & Plan Note - Dale Valadez MD - 09/10/2020 5:30 AM EDT Associated Problem(s): Secondary pulmonary arterial hypertension May develop secondary Pulmonary Hypertension related to cardiopulmonary disease (WHO Grp 3). - monitor Echocardiogram as indicated - consider RHC Right heart catheterization, as indicated - optimize underlying conditions - consider sleep study, as indicated * Assessment & Plan Note - Dale Valadez MD - 09/10/2020 5:27 AM EDT Associated Problem(s): Vocal cord dysfunction History of Stridor;may have element of VCD, PVFD - refer to ENT Dr. Angela * Assessment & Plan Note - Dale Valadez MD - 09/10/2020 5:17 AM EDT Associated Problem(s): Mild intermittent asthma without complication - Severity: mild - 09/10/20: about 6 wks - Try ICS Budesonide or Budesonide-Formoterol (Symbicort), if feasible; cont. albuterol as needed; use spacer - may also use duonebs; budesonide+formoterol nebs alternatively - patient benefits from nebulizer treatments - Inhaler technique teaching done/reviewed prev.; rinse mouth after inhaler use especially after inhaled steroids - consider Montelukast - consider Allergy testing, check Eosinophils, IgE - Consider other controller meds, Biologics subsequently, if indicated - Avoid/control triggers; environmental control prn - control GERD as indicated - Smoking cessation: nonsmoker - monitor PFT, as indicated. - Consider Methacholine Challenge Test, if indicated - consider Peak Flow monitoring, Asthma Action Plan subseq., if necessary - ffup imaging as needed, Chest XRay as indicated (CT Chest if indicated) - Pulmonary rehab program: as indic., if feasible; rec to stay active - Influenza, pneumococcal, (COVID19 vaccine post-) vaccines recommended, [facility] Discharge instructions* Instructions* Saleem Hansen DO - 07/18/2020 Please follow-up with addiction medicine and PCP as outpatient Please follow-up with PCP regarding cervical lymphadenopathy noted on your initial CT of the neck that was done. This is likely reactive lymph node and will resolve on its own but needs follow-up to ensure does not need further work-up. Please take your gabapentin, baclofen and Topamax as prescribed. documented in this [id number] Hospital course Narrative* Saleem Hansen DO - 07/18/2020 12:21 PM EDT HOSPITALIST DISCHARGE SUMMARY Patient: Kendall Vasques Account: [id number] Admitted: 07/13/2020 Discharge Date/Time: 07/18/2020 Clinical Summary FINAL DIAGNOSIS: Principal Problem: Asthma exacerbation attacks Asthma exacerbation attacks gabapentin withdrawal Abdominal pain-negative CT without contrast on admission Cervical LAD Concern for CAP-less likely Nonobstructive nephrolithiasis-3 mm stone, no hydronephrosis Anxiety REASON FOR HOSPITALIZATION AND ADMITTING DIAGNOSIS: Respiratory Distress Stridor [R06.1] Acute URI [J06.9] Respiratory distress [R06.03] Asthma exacerbation attacks [J45.901] HOSPITAL COURSE: Patient is a 34-year-old female with a history of restless leg syndrome on gabapentin chronically, asthma who presented to hospital with possible asthma exacerbation and stridor. She was initially inrespiratory distress. She was admitted to medical floor and started on steroids and inhalers and azithromycin. She was noted to have anxiety, shakiness and headache. Patient actually was found to have flulike symptoms later thought to be due to gabapentin withdrawal. She was on 3200 mg/day and was decreased all the way down to 100 mg 3 times daily because she was trying to get she did not want to be on a high dose. She usually gets this from her PCP. Patient was started on gabapentin 40 0mg 3 times daily during this hospitalization along with baclofen and Topamax and this will help with her significant . After starting this regimen patient symptoms completely resolved. She was discharged home after evaluation by addiction medicine. Patient did not show any seeking behavior. Patient has cervical lymphadenopathy noted on her CT scan that was done initially for stridor. She will need to follow-up as outpatient to ensure the resolution of these lymphadenopathy. Most likely possibly due to upper respiratory tract infection possible URI. He was educated on this and will follow up.She was discharged on taper of gabapentin as per addiction medicine recommendation along with baclofen and Topamax. She will need to follow-up with addiction medicine as outpatient. CONDITION AT DISCHARGE: Stable Physical Examination: Blood pressure 115/72, pulse 66, temperature 97.7 F (36.5 C), temperature source Oral, resp. rate 16, height 5' 4, weight 59 kg (130 lb), SpO2 97 %. General appearance: alert, cooperative, in no acute distress. Head/Neck: Head- normocephalic. Neck- supple, non-tender, without lymphadenopathy Eyes: No Scleral icterus or pallor; EOMI ENT: Trachea midline. Cardiovascular: regular rate and rhythm; normal S1, S2; no murmurs, rubs, clicks or gallops; No/+ peripheral edema. Respiratory: lungs clear to auscultation; without wheezes, rales or rhonchi. Abdomen: soft, non tender, non-distended; positive bowel sounds. Neurological: alert, oriented, normal speech; no focal findings or movement disorder noted. Musculoskeletal: no significant deformity noted. Skin: normal coloration, texture and turgor; no lesions or eruptions. Procedures: Procedures Critical Care Consults: Procedures Consult ENT Hospitalize Patient To : Inpatient consult to Urology Inpatient consult to Addiction Medicine Other Tests: No orders of the defined types were placed in this encounter. LAST LABS: Results from last 7 days Lab Units 07/17/20 0545 SODIUM mmol/L 142 POTASSIUM mmol/L 3.3* CHLORIDE mmol/L 109* BUN mg/dL 6* CREATININE mg/dL 0.74 GLUCOSE mg/dL 81 CALCIUM mg/dL 8.4 Results from last 7 days Lab Units 07/14/20200107/13/20 1426 ALK PHOS U/L 61 68 BILIRUBIN TOTAL mg/dL 0.2 0.4 BILIRUBIN DIRECT mg/dL -- 0.1 TOTAL PROTEIN g/dL 6.6 7.2 ALTR U/L 30 38 AST U/L 17 23 Results from last 7 days Lab Units 07/17/20 0545 WBC K/mcL 8.64 HGB g/dL 11.6* HCT % 37.4 PLT K/mcL 168 Results from last 7 days Lab Units 07/17/20 0545 TSH mcIU/mL 1.71 FREE T4 ng/dL 1.5 Allergies: Tramadol, Codeine, Flagyl [metronidazole], Shrimp, Topamax [topiramate], and Adhesive tape-silicones Discharge Diet: Diet Regular; Regular Disposition: Home Discharge Medications Medication List START taking these medications baclofen 20 MG tablet Commonly known as: LIORESAL Take 1 (one) tablet (20 mg total) by mouth every 8 (eight) hours . dicyclomine 10 MG capsule Commonly known as: BENTYL Take 1 (one) capsule (10 mg total) by mouth 4 (four) times a day before meals and nightly . topiramate 25 MG tablet Commonly known as: TOPAMAX Take 1 (one) tablet (25 mg total) by mouth 2 (two) times a day . CHANGE how you take these medications gabapentin 100 MG capsule Commonly known as: NEURONTIN 400mg bid x 7 d then 00mg bid x 7 days then 300mg daily x 7 d then 200 mg daily x 7 d then 100mg x7d then stop Reasons: one to two pills nightly. What changed: how much to take how to take this when to take this additional instructions CONTINUE taking these medications acetaminophen 500 MG tablet Commonly known as: TYLENOL albuterol 2.5 mg /3 mL (0.083 %) nebulizer solution Commonly known as: PROVENTIL THRIVITE RX ORAL traZODone 150 MG tablet Commonly known as: DESYREL VICKS NYQUIL COUGH ORAL STOP taking these medications tiZANidine 4 MG tablet Commonly known as: ZANAFLEX Where to Get Your Medications These medications were sent to [facility] [address] [place], [place] [id number] Hours: 8:30 AM to 5:00 PM Mon-Fri baclofen 20 MG tablet dicyclomine 10 MG capsule gabapentin 100 MG capsule topiramate 25 MG tablet Physician(s) Family: Winsome Cuevas CNP, , Address: [address] [place], [place] [id number] Follow Up: Winsome Cuevas CNP [address] [place], [place] [address] Follow up in 1 week(s) Tl Bautista MD [address] [place] [address] Follow up in 1 week(s) Patient instructions, including activity, were given to the patient/family at discharge. Please seethe After Visit Summary in the medical record for details. Time spent on discharge: > 30 minutes Completed by: Saleem Hansen on 07/18/20, 12:21 PM documented in this [id number] Miscellaneous Notes* Plan of Barbara Holland RN - 07/18/2020 3:26 AM EDT Problem: Actual or potential alteration in health Goal: Absence of healthcare acquired conditions Outcome: Partially Met Goal: Knowledge of Interdisciplinary Plan of Care Outcome: Partially Met Goal: Knowledge of Enviroment Outcome: Partially Met Problem: Pain Goal: Manage acute pain Outcome: Partially Met Goal: Manage chronic pain Outcome: Partially Met Goal: Reduced pain sensation Outcome: Partially Met Goal: Achievement of comfort function goal Outcome: Partially Met Problem: Plan for Discharge Goal: Knowledge of discharge plan and instructions Outcome: Partially Met Problem: Urinary Elimination - Impaired Goal: Urinary elimination within specified parameters Outcome: Partially Met Problem: Gas Exchange - Impaired Goal: Adequate oxygenation Outcome: Partially Met * Plan of Angelina Braden RN - 07/17/2020 6:42 PM EDT Problem: Actual or potential alteration in health Goal: Absence of healthcare acquired conditions Outcome: Partially Met Goal: Knowledge of Interdisciplinary Plan of Care Outcome: Partially Met Goal: Knowledge of Enviroment Outcome: Partially Met Problem: Pain Goal: Manage acute pain Outcome: Partially Met Goal: Manage chronic pain Outcome: Partially Met Goal: Reduced pain sensation Outcome: Partially Met Goal: Achievement of comfort function goal Outcome: Partially Met Problem: Plan for Discharge Goal: Knowledge of discharge plan and instructions Outcome: Partially Met Problem: Urinary Elimination - Impaired Goal: Urinary elimination within specified parameters Outcome: Partially Met Problem: Gas Exchange - Impaired Goal: Adequate oxygenation Outcome: Partially Met * Ligia of Barbara Holland RN - 07/16/2020 8:43 PM EDT Problem: Actual or potential alteration in health Goal: Absence of healthcare acquired conditions Outcome: Partially Met Goal: Knowledge of Interdisciplinary Plan of Care Outcome: Partially Met Goal: Knowledge of Enviroment Outcome: Partially Met Problem: Pain Goal: Manage acute pain Outcome: Partially Met Goal: Manage chronic pain Outcome: Partially Met Goal: Reduced pain sensation Outcome: Partially Met Goal: Achievement of comfort function goal Outcome: Partially Met Problem: Plan for Discharge Goal: Knowledge of discharge plan and instructions Outcome: Partially Met Problem: Urinary Elimination - Impaired Goal: Urinary elimination within specified parameters Outcome: Partially Met * Plan of Angelina Braden RN - 07/16/2020 3:35 PM EDT Problem: Actual or potential alteration in health Goal: Absence of healthcare acquired conditions Outcome: Partially Met Goal: Knowledge of Interdisciplinary Plan of Care Outcome: Partially Met Goal: Knowledge of Enviroment Outcome: Partially Met Problem: Pain Goal: Manage acute pain Outcome: Partially Met Goal: Manage chronic pain Outcome: Partially Met Goal: Reduced pain sensation Outcome: Partially Met Goal: Achievement of comfort function goal Outcome: Partially Met Problem: Plan for Discharge Goal: Knowledge of discharge plan and instructions Outcome: Partially Met Problem: Urinary Elimination - Impaired Goal: Urinary elimination within specified parameters Outcome: Partially Met Problem: Gas Exchange - Impaired Goal: Adequate oxygenation Outcome: Partially Met * Ligia of Mallory Myles RN - 07/16/2020 5:23 AM EDT Problem: Actual or potential alteration in health Goal: Absence of healthcare acquired conditions Outcome: Partially Met Goal: Knowledge of Interdisciplinary Plan of Care Outcome: Partially Met Goal: Knowledge of Enviroment Outcome: Partially Met Problem: Pain Goal: Manage acute pain Outcome: Partially Met Goal: Manage chronic pain Outcome: Partially Met Goal: Reduced pain sensation Outcome: Partially Met Goal: Achievement of comfort function goal Outcome: Partially Met Problem: Plan for Discharge Goal: Knowledge of discharge plan and instructions Outcome: Partially Met Problem: Urinary Elimination - Impaired Goal: Urinary elimination within specified parameters Outcome: Partially Met Problem: Gas Exchange - Impaired Goal: Adequate oxygenation Outcome: Partially Met * Plan of Care - Christine Cast RN - 07/15/2020 2:56 AM EDT Problem: Actual or potential alteration in health Goal: Absence of healthcare acquired conditions Outcome: Partially Met Goal: Knowledge of Interdisciplinary Plan of Care Outcome: Partially Met Goal: Knowledge of Enviroment Outcome: Partially Met Problem: Pain Goal: Manage acute pain Outcome: Partially Met Goal: Manage chronic pain Outcome: Partially Met Goal: Reduced pain sensation Outcome: Partially Met Goal: Achievement of comfort function goal Outcome: Partially Met * Quick Note - Jayla Adrian CNP - 07/14/2020 7:41 PM EDT Reported by nursing that patient is experiencing new abdominal pain. Abdominal exam is limited due to patient unable to relax abdominal muscles. States she was just eating and developed sudden onset of nausea and abdominal discomfort to her umbilicus region. Will order labs. UA. Toradol IV x 1 dose. Serum HcG. 2044 - Labs reviewed. Lactate 2.5, WBC 14. 2 L LR boluses with fluids at 100 ml/hr. Morphine 2mg IVevery 4 PRN. Await HcG test prior to imaging orders. 2199 - CT reviewed. Pt to try to void. If unable will straight cath. Post void bladder scan to be performed by nursing. Althea COYNE * Plan of Care - Javy Rodarte RN - 07/14/2020 5:12 PM EDT Problem: Actual or potential alteration in health Goal: Absence of healthcare acquired conditions Outcome: Partially Met Goal: Knowledge of Interdisciplinary Plan of Care Outcome: Partially Met Goal: Knowledge of Enviroment Outcome: Partially Met Problem: Pain Goal: Manage acute pain Outcome: Partially Met Goal: Manage chronic pain Outcome: Partially Met Goal: Reduced pain sensation Outcome: Partially Met Goal: Achievement of comfort function goal Outcome: Partially Met * Plan of Care - Christine Cast RN - 07/14/2020 3:28 AM EDT Problem: Actual or potential alteration in health Goal: Absence of healthcare acquired conditions Outcome: Partially Met Goal: Knowledge of Interdisciplinary Plan of Care Outcome: Partially Met Goal: Knowledge of Enviroment Outcome: Partially Met Problem: Pain Goal: Manage acute pain Outcome: Partially Met Goal: Manage chronic pain Outcome: Partially Met Goal: Reduced pain sensation Outcome: Partially Met Goal: Achievement of comfort function goal Outcome: Partially Met * Plan of Care - Damaris Henry RN - 07/13/2020 7:36 PM EDT POC initiated. * ED Procedure Note - Henry Huntley MD - 07/13/2020 3:03 PM EDT Associated Order(s): EKG 12-lead EKG 12-lead Date/Time: 07/13/2020 3:03 PM Performed by: Henry Huntley MD Authorized by: Henry Huntley MD Interpreted by ED attending physician Comparison: not compared with previous ECG Rhythm: sinus rhythm BPM: 126 Conduction: conduction normal ST Segments: ST segments normal T Waves: T waves normal normal [place] interval normal QRS interval normal QT interval Clinical impression: non-specific ECG * Quick Note - Edmund Garcia RRT - 07/13/2020 2:53 PM EDT RT called to asthma patient in distress. Patient presented with marked stridor, and very tight wheezing. Immediately gave two albuterol back to back and patient still having stridor so gave patient racemic epi. Patient has improved significantly post treatments. documented in this [id number] History of Present illness Narrative* Saleem Hansen DO - 07/17/2020 11:39 AM EDT [facility] Medicine Inpatient Follow-up 07/17/2020 Saleem Hansen DO [facility] Patient: Kendall Vasques Date of : 1985 (34 y.o.) PCP: Winsome Cuevas CNP ASSESSMENT/PLAN: Kendall Vasques 34 y.o. female presented with complains of Chief Complaint Patient presents with Respiratory Distress Principal Problem: Asthma exacerbation attacks gabapentin withdrawal Abdominal pain-negative CT without contrast on admission Cervical LAD Concern for CAP-less likely Nonobstructive nephrolithiasis-3 mm stone, no hydronephrosis Anxiety PLAN: Resume gabapentin taper as per addiction meds, on baclofen and topamx started by Dr Bautista, monitor for symptoms given previous questionable allergy history Doing well from respiratory standpoint CT abdomen today with contrast Resume antibiotic, check procalcitonin, if negative discontinue antibiotics Repeat neck imaging as outpatient to make sure that the lymphadenopathy resolves SUBJECTIVE: Feels very anxious, has nausea and emesis, has been dry heaving. Did not eat breakfast. Complains of abdominal pain. All other systems reviewed and negative other than noted above. OBJECTIVE: Physical Examination: BP 124/80 (BP Location: Right arm, Patient Position: Lying) Pulse 80 Temp 97.5 F (36.4 C) (Oral) Resp 16 Ht 5' 4 Wt 59 kg (130 lb) SpO2 98% BMI 22.31 kg/m General Appearance: Mild distress due to dry heaving and nausea. Hemodynamically stable. Tremulous HEENT: Head - Normocephalic, atraumatic. Eyes - VLADIMIR bilaterally and EOMI. Ears - normal external appearance, hearing intact. Nose - normal, no erythema. Throat - mucous membranes moist, pharynx without lesions. Neck: Supple, trachea midline. Cardiovascular: S1, S2 normal. No murmurs, rubs, clicks or gallops appreciated. No pedal edema. Respiratory: Lungs clear to auscultation, no wheezes, rales or rhonchi heard. Abdomen: Generalized tenderness to palpation but no rebound tenderness or guarding, normal bowel sounds, non-distended, no masses or organomegaly appreciated. Neurological: Grossly normal motor and sensory exam. No focal deficits. Musculoskeletal: No joint tenderness, deformity or swelling. Skin: Normal coloration and turgor. No rashes. Psych: Alert, oriented x 3. Anxious CURRENT MEDICATIONS: azithromycin 500 mg Intravenous Q24H baclofen 20 mg Oral Q8H JOHN cefTRIAXone (ROCEPHIN) IVPB 1,000 mg Intravenous Q24H dicyclomine 10 mg Oral 4x daily before meals and nightly enoxaparin (LOVENOX) injection 40 mg Subcutaneous Daily gabapentin 400 mg Oral Q12H JOHN predniSONE 40 mg Oral Daily with breakfast vitamin with Ca-Iron-FA 1 tablet Oral Daily tamsulosin 0.4 mg Oral After evening meal topiramate 25 mg Oral BID traZODone 150 mg Oral Nightly Results/Medications Reviewed 07/17/20 11:39 AM: Results from last 7 days Lab Units 07/17/20 0545 07/15/20 1031 07/14/20200107/14/20 0615 SODIUM mmol/L 142 145 142 139 POTASSIUM mmol/L 3.3* 4.0 4.4 4.1 CHLORIDE mmol/L 109* 115* 112* 111* BUN mg/dL 6* 9 12 9 CREATININE mg/dL 0.74 0.96 0.86 0.77 GLUCOSE mg/dL 81 91 114* 141* CALCIUM mg/dL 8.4 -- 8.9 8.8 Results from last 7 days Lab Units 07/17/20 0545 07/15/20 1031 07/14/202001 WBC K/mcL 8.64 15.52* 14.55* HGB g/dL 11.6* 11.6* 11.4* HCT % 37.4 38.4 36.7 PLT K/mcL 168 189 176 Results from last 7 days Lab Units 07/13/20 1819 07/13/20 1426 TROPONIN I ng/L <15 <15 Results from last 7 days Lab Units 07/14/20200107/13/20 1426 ALK PHOS U/L 61 68 BILIRUBIN TOTAL mg/dL 0.2 0.4 BILIRUBIN DIRECT mg/dL -- 0.1 TOTAL PROTEIN g/dL 6.6 7.2 ALTR U/L 30 38 AST U/L 17 23 CULTURES: Reviewed 11:39 AM IMAGING: Reviewed 11:39 AM * Saleem Hansen DO - 07/16/2020 12:56 PM EDT Discussed patient with addiction medicine specialist, Dr. Bautista, and medication changes made. Patient will be started on gabapentin 400 mg 4 times daily, baclofen. Topamax was also recommended but patient has allergies to it. Will use Atarax for now. Recommendation was made against benzo use. * Saleem Hansen DO - 07/16/2020 11:49 AM EDT [facility] Medicine Inpatient Follow-up 07/16/2020 Saleem Hansen DO [facility] Patient: Kendall Vasques Date of : 1985 (34 y.o.) PCP: Winsome Cuevas CNP ASSESSMENT/PLAN: Kendall Vasques 34 y.o. female presented with complains of Chief Complaint Patient presents with Respiratory Distress Principal Problem: Asthma exacerbation attacks gabapentin withdrawal Abdominal pain-negative CT without contrast on admission Cervical LAD Concern for CAP-less likely Nonobstructive nephrolithiasis-3 mm stone, no hydronephrosis Anxiety PLAN: Start the patient on Bentyl, Flexeril, Ativan. Restart gabapentin at 400 mg 4 times daily, plan to taper over weeks to months as outpatient. Will discuss with addiction medicine Doing well from respiratory standpoint CT abdomen today with contrast Resume antibiotic, check procalcitonin, if negative discontinue antibiotics Repeat neck imaging as outpatient to make sure that the lymphadenopathy resolves SUBJECTIVE: Feels very anxious, has nausea and emesis, has been dry heaving. Did not eat breakfast. Complains of abdominal pain. All other systems reviewed and negative other than noted above. OBJECTIVE: Physical Examination: BP 109/71 (BP Location: Right arm, Patient Position: Lying) Pulse 95 Temp 97.2 F (36.2 C) (Oral) Resp 14 Ht 5' 4 Wt 59 kg (130 lb) SpO2 97% BMI 22.31 kg/m General Appearance: Mild distress due to dry heaving and nausea. Hemodynamically stable. Tremulous HEENT: Head - Normocephalic, atraumatic. Eyes - VLADIMIR bilaterally and EOMI. Ears - normal external appearance, hearing intact. Nose - normal, no erythema. Throat - mucous membranes moist, pharynx without lesions. Neck: Supple, trachea midline. Cardiovascular: S1, S2 normal. No murmurs, rubs, clicks or gallops appreciated. No pedal edema. Respiratory: Lungs clear to auscultation, no wheezes, rales or rhonchi heard. Abdomen: Generalized tenderness to palpation but no rebound tenderness or guarding, normal bowel sounds, non-distended, no masses or organomegaly appreciated. Neurological: Grossly normal motor and sensory exam. No focal deficits. Musculoskeletal: No joint tenderness, deformity or swelling. Skin: Normal coloration and turgor. No rashes. Psych: Alert, oriented x 3. Anxious CURRENT MEDICATIONS: albuterol 2.5 mg Inhalation 4x daily azithromycin 500 mg Intravenous Q24H cefTRIAXone (ROCEPHIN) IVPB 1,000 mg Intravenous Q24H dicyclomine 10 mg Oral 4x daily before meals and nightly enoxaparin (LOVENOX) injection 40 mg Subcutaneous Daily gabapentin 600 mg Oral TID predniSONE 40 mg Oral Daily with breakfast vitamin with Ca-Iron-FA 1 tablet Oral Daily tamsulosin 0.4 mg Oral After evening meal tiZANidine 4 mg Oral BID traZODone 150 mg Oral Nightly Results/Medications Reviewed 07/16/20 11:49 AM: Results from last 7 days Lab Units 07/15/20 1031 07/14/20200107/14/20 0615 SODIUM mmol/L 145 142 139 POTASSIUM mmol/L 4.0 4.4 4.1 CHLORIDE mmol/L 115* 112* 111* BUN mg/dL 9 12 9 CREATININE mg/dL 0.96 0.86 0.77 GLUCOSE mg/dL 91 114* 141* CALCIUM mg/dL -- 8.9 8.8 Results from last 7 days Lab Units 07/15/20 1031 07/14/20200107/14/20 0615 WBC K/mcL 15.52* 14.55* 7.68 HGB g/dL 11.6* 11.4* 11.5* HCT % 38.4 36.7 36.2 PLT K/mcL 189 176 172 Results from last 7 days Lab Units 07/13/20 1819 07/13/20 1426 TROPONIN I ng/L <15 <15 Results from last 7 days Lab Units 07/14/20200107/13/20 1426 ALK PHOS U/L 61 68 BILIRUBIN TOTAL mg/dL 0.2 0.4 BILIRUBIN DIRECT mg/dL -- 0.1 TOTAL PROTEIN g/dL 6.6 7.2 ALTR U/L 30 38 AST U/L 17 23 CULTURES: Reviewed 11:49 AM IMAGING: Reviewed 11:49 AM * Poornima Ricardo MD - 07/15/2020 3:55 PM EDT [facility] Medicine Inpatient Follow-up 07/15/2020 Poornima Coe MD [facility] Patient: Kendall Vasques Date of : 1985 (34 y.o.) PCP: Winsome Cuevas CNP ASSESSMENT/PLAN: Kendall Vasques 34 y.o. female presented with complains of Principal Problem: Asthma exacerbation attacks PLAN: Patient on RA with adequate saturation Bronchodilators scheduled and as needed Continue albuterol Solumedrol 40mg IV q 8hrs will de-escalte to q 12hr CXR Possible peribronchial infiltrate in the left upper lobe. Started on rocephin and azithromycin that we will continue 07/15 shortness of breath and wheezing almost resolved. We will change her to prednisone p.o. and continue butyryl as needed Right flank pain overnight CT abdomen and pelvis showed 3 mm right mid renal stone. No overt hydronephrosis.Gallbladder biliary sludge.No evidence for appendicitis. Urology consulted Started on IV fluid therapy and continue SUBJECTIVE: SOB and wheezing improving, right flank pain All other systems reviewed and negative other than noted above. OBJECTIVE: Physical Examination: BP 120/81 (BP Location: Left arm, Patient Position: Sitting) Pulse (!) 55 Temp 98.5 F (36.9 C) (Oral) Resp 12 Ht 5' 4 Wt 59 kg (130 lb) SpO2 96% BMI 22.31 kg/m General Appearance: Alert, well appearing, and in no acute distress. HEENT: Head - Normocephalic, atraumatic. Eyes - VLADIMIR bilaterally and EOMI. Ears - normal external appearance, hearing intact. Nose - normal, no erythema. Throat - mucous membranes moist, pharynx without lesions. Neck: Supple, trachea midline. Cardiovascular: S1, S2 normal. No murmurs, rubs, clicks or gallops appreciated. No pedal edema. Respiratory: Improvement aeration bilaterally with almost resolution of the wheezing abdomen: Soft,non-tender, normal bowel sounds, non-distended, no masses or organomegaly appreciated. Neurological: Grossly normal motor and sensory exam. No focal deficits. Musculoskeletal: No joint tenderness, deformity or swelling. Skin: Normal coloration and turgor. No rashes. Psych: Alert, oriented x 3. Normal mood and affect. CURRENT MEDICATIONS: albuterol 2.5 mg Inhalation 4x daily azithromycin 500 mg Intravenous Q24H cefTRIAXone (ROCEPHIN) IVPB 1,000 mg Intravenous Q24H enoxaparin (LOVENOX) injection 40 mg Subcutaneous Daily gabapentin 200 mg Oral TID methylPREDNISolone sodium succinate 40 mg Intravenous Q12H JOHN vitamin with Ca-Iron-FA 1 tablet Oral Daily tiZANidine 4 mg Oral BID traZODone 150 mg Oral Nightly Results/Medications Reviewed 07/15/20 3:55 PM: Results from last 7 days Lab Units 07/15/20 1031 07/14/20200107/14/20 0615 SODIUM mmol/L 145 142 139 POTASSIUM mmol/L 4.0 4.4 4.1 CHLORIDE mmol/L 115* 112* 111* BUN mg/dL 9 12 9 CREATININE mg/dL 0.96 0.86 0.77 GLUCOSE mg/dL 91 114* 141* CALCIUM mg/dL -- 8.9 8.8 Results from last 7 days Lab Units 07/15/20 1031 07/14/20200107/14/20 0615 WBC K/mcL 15.52* 14.55* 7.68 HGB g/dL 11.6* 11.4* 11.5* HCT % 38.4 36.7 36.2 PLT K/mcL 189 176 172 Results from last 7 days Lab Units 07/13/20 1819 07/13/20 1426 TROPONIN I ng/L <15 <15 Results from last 7 days Lab Units 07/14/20200107/13/20 1426 ALK PHOS U/L 61 68 BILIRUBIN TOTAL mg/dL 0.2 0.4 BILIRUBIN DIRECT mg/dL -- 0.1 TOTAL PROTEIN g/dL 6.6 7.2 ALTR U/L 30 38 AST U/L 17 23 CULTURES: Reviewed 3:55 PM IMAGING: Reviewed 3:55 PM * Poornima Ricardo MD - 07/14/2020 2:31 PM EDT [facility] Medicine Inpatient Follow-up 07/14/2020 Poornima Coe MD [facility] Patient: Kendall Vasques Date of : 1985 (34 y.o.) PCP: Winsome Cuevas CNP ASSESSMENT/PLAN: Kendall Vasques 34 y.o. female presented with complains of Principal Problem: Asthma exacerbation attacks PLAN: Patient on RA with adequate saturation Bronchodilators scheduled and as needed Continue albuterol Solumedrol 40mg IV q 8hrs will de-escalte to q 12hr CXR Possible peribronchial infiltrate in the left upper lobe. Started on rocephin and azithromycin that we will continue SUBJECTIVE: SOB and wheezing however improving All other systems reviewed and negative other than noted above. OBJECTIVE: Physical Examination: BP (!) 94/55 (BP Location: Left arm, Patient Position: Sitting) Pulse 90 Temp 98 F (36.7 C) (Oral) Resp 14 Ht 5' 4 Wt 59 kg (130 lb) SpO2 99% BMI 22.31 kg/m General Appearance: Alert, well appearing, and in no acute distress. HEENT: Head - Normocephalic, atraumatic. Eyes - VLADIMIR bilaterally and EOMI. Ears - normal external appearance, hearing intact. Nose - normal, no erythema. Throat - mucous membranes moist, pharynx without lesions. Neck: Supple, trachea midline. Cardiovascular: S1, S2 normal. No murmurs, rubs, clicks or gallops appreciated. No pedal edema. Respiratory: equal air entry however decreased and scattered wheezing Abdomen: Soft, non-tender, normal bowel sounds, non-distended, no masses or organomegaly appreciated. Neurological: Grossly normal motor and sensory exam. No focal deficits. Musculoskeletal: No joint tenderness, deformity or swelling. Skin: Normal coloration and turgor. No rashes. Psych: Alert, oriented x 3. Normal mood and affect. CURRENT MEDICATIONS: albuterol 2.5 mg Inhalation 4x daily azithromycin 500 mg Intravenous Q24H cefTRIAXone (ROCEPHIN) IVPB 1,000 mg Intravenous Q24H enoxaparin (LOVENOX) injection 40 mg Subcutaneous Daily gabapentin 200 mg Oral TID methylPREDNISolone sodium succinate 40 mg Intravenous Q8H JOHN vitamin with Ca-Iron-FA 1 tablet Oral Daily tiZANidine 4 mg Oral BID traZODone 150 mg Oral Nightly Results/Medications Reviewed 07/14/20 2:31 PM: Results from last 7 days Lab Units 07/14/20 0615 07/13/20 1426 SODIUM mmol/L 139 141 POTASSIUM mmol/L 4.1 3.7 CHLORIDE mmol/L 111* 110* BUN mg/dL 9 8 CREATININE mg/dL 0.77 1.07 GLUCOSE mg/dL 141* 105* CALCIUM mg/dL 8.8 -- Results from last 7 days Lab Units 07/14/20 0615 07/13/20 1426 07/13/20 1424 WBC K/mcL 7.68 7.97 -- HGB g/dL 11.5* 13.1 -- HEMOGLOBIN BG g/dL -- -- 13.8 HEMATOCRIT, CALCULATED % -- -- 42.2 HCT % 36.2 40.5 -- PLT K/mcL 172 209 -- Results from last 7 days Lab Units 07/13/20 1819 07/13/20 1426 TROPONIN I ng/L <15 <15 Results from last 7 days Lab Units 07/13/20 1426 ALK PHOS U/L 68 BILIRUBIN TOTAL mg/dL 0.4 BILIRUBIN DIRECT mg/dL 0.1 TOTAL PROTEIN g/dL 7.2 ALTR U/L 38 AST U/L 23 CULTURES: Reviewed 2:31 PM IMAGING: Reviewed 2:31 PM documented in this [id number] Consult note* Tl Bautista MD - 07/17/2020 10:10 AM EDT ADDICTION MEDICINE CONSULT NOTE Patient Name: Kendall Vasques Admit Date: [id number] MR #: [id number] : 1985 Physicians: Winsome Cuevas CNP (Family); No ref. provider found (referring) Principal Problem: Asthma exacerbation attacks Assessment and Plan: Gabapentin Dependence and Withdrawal 1. Patient felt that she did okay at home on 400 mg twice a day and tapering every 3 days was too quick Will try topiramate 25 BID here as possible reaction previously and if not would continue thru the taper and then for a week or so after Would suggest one week at 800 mg per day (400mg BID) May need to go up to 1200 per day as she had been put back to 1600 mg per day for a couple days I feel she could taper by 200 mg per day for one week until gets to 600 mg per day total Then one week at 500 mg per day Then one week 400 per day then 300 200 100. The baclofen will also help in the tapering and I would suggest tapering that next Assessment Detail: The total time spent for this visit was 40 to 45 minutes. Greater than 50% of the time was spent incounseling and coordination of care. Reason for Consult: Gabapentin Dependence and withdrawal History of Present Illness: Kendall Vasques is a 34 y.o. y/o female presenting from home with c/o breathing issue and anxiety Chief Complaint Patient presents with Respiratory Distress Seen in room 3717. Discussed her gabapentin that was being rapid taper to get . States she has several bottle of 800 mg capsules and extra 100s. Discussed plan for tapering with using the baclofen and topiramate as decreasing. She felt she was okay with taking the gabapentin only twice a day and will discuss with her pain management in [place]. He had been taking her down 200 to 400 mg every 3 days which seemed too quick and she had the anxiety reaction and labile emotions on admission. Past Medical History: Diagnosis Date Asthma Chronic kidney disease Hypertension Hypoglycemia Kidney stones Kidney stones Migraine RLS (restless legs syndrome) Seizures (HCC) Sleep apnea Past Surgical History: Procedure Laterality Date cone biopsy cervix 2010 EXPLORATORY LAPAROTOMY to check for endometriosis. had scar tissue that was twisting the bowel and that was fixed. KIDNEY STONE SURGERY 2009, 2012, 2013, 2014 RIGHT OOPHORECTOMY 2013 TONSILECTOMY, ADENOIDECTOMY, BILATERAL MYRINGOTOMY AND TUBES 2013 Family History Problem Relation Age of Onset Hypertension Father Stroke Father Seizures Sister epilepsy Diabetes Maternal Grandfather Cancer Paternal Grandmother breast cancer Social History Socioeconomic History Marital status: Spouse name: Not on file Number of children: Not on file Years of education: Not on file Highest education level: Not on file Occupational History Not on file Tobacco Use Smoking status: Never Smoker Smokeless tobacco: Never Used Vaping Use Vaping Use: Never used Substance and Sexual Activity Alcohol use: No Drug use: No Sexual activity: Not on file Other Topics Concern Not on file Social History Narrative Not on file Social Determinants of Health Financial Resource Strain: Difficulty of Paying Living Expenses: Food Insecurity: Worried About Running Out of Food in the Last Year: Ran Out of Food in the Last Year: Transportation Needs: Lack of Transportation (Medical): Lack of Transportation (Non-Medical): Physical Activity: Days of Exercise per Week: Minutes of Exercise per Session: Stress: Feeling of Stress : Social Connections: Frequency of Communication with Friends and Family: Frequency of Social Gatherings with Friends and Family: Attends Yaz[employer] Services: Active Member of Clubs or Organizations: Attends Club or Organization Meetings: Marital Status: AOD History: chronic gabapentin for diffuse pain and restless leg Treatment history: sees pain management in [place] Longest period of sobriety: N/A OD history: no Typical withdrawal symptoms: N/A but does seem to be anxiety and breathing? History of precipitated withdrawal: ?possibly via too quick? Seizure history: pseudoseizures with stress Psychiatric History: Diagnoses: no Provider: no SI or SA: no Previous Medications Medication Sig acetaminophen (TYLENOL) 500 MG tablet Take 1,000 mg by mouth as needed for pain . albuterol (PROVENTIL) 2.5 mg /3 mL (0.083 %) nebulizer solution Take 2.5 mg by nebulization every 6(six) hours as needed for wheezing . dextromethorphan hb/doxylamine (VICKS NYQUIL COUGH ORAL) Take 1 Dose by mouth daily . gabapentin (NEURONTIN) 100 MG capsule Take 200 mg by mouth 3 (three) times a day Reasons: one to two pills nightly. vit,calc76/iron/folic (THRIVITE RX ORAL) Take 1 tablet by mouth every morning . tiZANidine (ZANAFLEX) 4 MG tablet Take 4 mg by mouth 2 (two) times a day . traZODone (DESYREL) 150 MG tablet Take 150 mg by mouth nightly . Allergies Allergen Reactions Tramadol Seizures Codeine Hives Flagyl [Metronidazole] Shrimp Topamax [Topiramate] Adhesive Tape-Silicones Rash Review of Systems All other systems reviewed and are negative. Patient Vitals for the past 24 hrs: BP Temp Temp src Pulse Resp SpO2 07/17/20 0932 98 % 07/17/20 0747 124/80 97.5 F (36.4 C) Oral 80 16 96 % 07/17/20 0320 111/65 97.6 F (36.4 C) Oral 83 18 99 % 07/16/20 2325 111/63 98.1 F (36.7 C) Oral 78 16 98 % 07/16/20 2002 16 07/16/20 1940 138/84 98.1 F (36.7 C) Oral 61 16 99 % 07/16/20 1555 120/77 97.3 F (36.3 C) Oral 79 16 98 % 07/16/20 1128 109/71 97.2 F (36.2 C) Oral 95 14 97 % Physical Exam Vitals and nursing note reviewed. Constitutional: Appearance: She is well-developed. HENT: Head: Normocephalic. Cardiovascular: Rate and Rhythm: Normal rate. Pulmonary: Effort: Pulmonary effort is normal. Musculoskeletal: General: Normal range of motion. Cervical back: Neck supple. Comments: Moving quite well Skin: General: Skin is warm and dry. Neurological: General: No focal deficit present. Mental Status: She is alert and oriented to person, place, and time. Comments: Moving well in bed Allergy Information: I have reviewed the patient's allergies. Tramadol, Codeine, Flagyl [metronidazole], Shrimp, Topamax [topiramate], and Adhesive tape-silicones Home Medications: Outpatient Medications as of 07/17/2020 Medication Sig gabapentin (NEURONTIN) 100 MG capsule Take 200 mg by mouth 3 (three) times a day Reasons: one to two pills nightly. Laboratory & Radiographic Imaging (if done): Recent Results (from the past 24 hour(s)) POC Glucose Collection Time: 07/16/20 1:07 PM Result Value Ref Range Glucose 82 65 - 99 mg/dL Basic Metabolic Panel Collection Time: 07/17/20 5:45 AM Result Value Ref Range Sodium 142 135 - 145 mmol/L Potassium 3.3 (L) 3.5 - 5.1 mmol/L Chloride 109 (H) 98 - 108 mmol/L Bicarbonate 27 21 - 32 mmol/L Anion Gap 9 (L) 10 - 20 mmol/L Glucose 81 65 - 99 mg/dL BUN 6 (L) 8 - 25 mg/dL Creatinine 0.74 0.40 - 1.10 mg/dL eGFR 107 >=60 mL/min/1.73 m2 BUN/Creatinine Ratio 8.1 (L) 10.0 - 20.0 Calcium 8.4 8.4 - 10.2 mg/dL CBC Auto Differential Collection Time: 07/17/20 5:45 AM Result Value Ref Range WBC 8.64 4.50 - 11.00 K/mcL RBC 3.95 (L) 4.00 - 5.20 M/mcL Hemoglobin 11.6 (L) 12.0 - 16.0 g/dL Hematocrit 37.4 36.0 - 46.0 % MCV 94.7 80.0 - 100.0 fL MCH 29.4 26.0 - 34.0 pg MCHC 31.0 31.0 - 37.0 g/dL Platelets 168 150 - 400 K/mcL RDW - CV 12.6 11.6 - 14.8 % MPV 10.3 9.4 - 12.4 fL Neutrophils 53.4 % Lymphocytes 37.7 % Monocytes 6.7 % Eosinophils 1.6 % Basophils 0.3 % IG Percent 0.30 % Neutrophils Abs 4.60 1.70 - 7.00 K/mcL Lymphocytes Abs 3.26 0.90 - 4.00 K/mcL Monocytes Abs 0.58 0.30 - 0.90 K/mcL Eosinophils Abs 0.14 0.00 - 0.50 K/mcL Basophils Abs 0.03 0.00 - 0.30 K/mcL IG Absolute 0.03 0.00 - 0.30 K/mcL Nucleated RBC 0.0 % Nucleated RBC Abs 0.00 0.00 - 0.00 K/mcL RADIOLOGY SCANS Final Result CT Abdomen Pelvis Without Contrast Final Result 3 mm right mid renal stone. No overt hydronephrosis. Gallbladder biliary sludge. No evidence for appendicitis. Workstation ID: [id number] CT Soft Tissue Neck With Contrast Final Result No obvious CT evidence for epiglottitis or tonsillitis. No abnormal fluid collection is seen in thesoft tissues of the neck to suggest abscess. Multiple small cervical lymph nodes are seen bilaterally measuring up to 1 cm in short axis. Workstation ID: [id number] XR Neck Soft Tissue Final Result Patent airway. No prevertebral soft swelling. ST/mjr Workstation ID: [id number] XR Chest 1 View Final Result Possible peribronchial infiltrate in the left upper lobe. PRL/lab Workstation ID: [id number] * Tulio Schaffer MD - 07/16/2020 6:35 PM EDT PATIENT NAME: Kendall Vasques : 1985 ADMITTED: [id number] CSN: [id number] REFERRING PROVIDER: Poornima Coe MD PCP Winsome Cuevas CNP REASON FOR CONSULTATION : Right renal stone 3 mm in diameter no evidence of obstruction based on recent CT scan kidney stone protocol.. PAST UROLOGIC HISTORY: History of kidney stones Past Medical History: Diagnosis Date Asthma Chronic kidney disease Hypertension Hypoglycemia Kidney stones Kidney stones Migraine RLS (restless legs syndrome) Seizures (HCC) Sleep apnea Past Surgical History: Procedure Laterality Date cone biopsy cervix 2010 EXPLORATORY LAPAROTOMY to check for endometriosis. had scar tissue that was twisting the bowel and that was fixed. KIDNEY STONE SURGERY 2009, 2012, 2013, 2014 RIGHT OOPHORECTOMY 2013 TONSILECTOMY, ADENOIDECTOMY, BILATERAL MYRINGOTOMY AND TUBES 2012 Family History Problem Relation Age of Onset Hypertension Father Stroke Father Seizures Sister epilepsy Diabetes Maternal Grandfather Cancer Paternal Grandmother breast cancer Social History Socioeconomic History Marital status: Spouse name: Not on file Number of children: Not on file Years of education: Not on file Highest education level: Not on file Occupational History Not on file Tobacco Use Smoking status: Never Smoker Smokeless tobacco: Never Used Vaping Use Vaping Use: Never used Substance and Sexual Activity Alcohol use: No Drug use: No Sexual activity: Not on file Other Topics Concern Not on file Social History Narrative Not on file Social Determinants of Health Financial Resource Strain: Difficulty of Paying Living Expenses: Food Insecurity: Worried About Running Out of Food in the Last Year: Ran Out of Food in the Last Year: Transportation Needs: Lack of Transportation (Medical): Lack of Transportation (Non-Medical): Physical Activity: Days of Exercise per Week: Minutes of Exercise per Session: Stress: Feeling of Stress : Social Connections: Frequency of Communication with Friends and Family: Frequency of Social Gatherings with Friends and Family: Attends Yazidi Services: Active Member of Clubs or Organizations: Attends Club or Organization Meetings: Marital Status: SOCIAL HISTORY: Reviewed. Nothing relevant to the current urologic problem ALLERGIES: Allergies reviewed Tramadol, Codeine, Flagyl [metronidazole], Shrimp, Topamax [topiramate], and Adhesive tape-silicones HOME MEDICATIONS: Outpatient Medications as of 07/16/2020 Medication Sig gabapentin (NEURONTIN) 100 MG capsule Take 200 mg by mouth 3 (three) times a day Reasons: one to two pills nightly. REVIEW OF SYSTEMS: Reviewed. Nothing relevant to the current urologic problem VITAL SIGNS: BP 120/77 (BP Location: Right arm, Patient Position: Lying) Pulse 79 Temp 97.3 F (36.3 C) (Oral) Resp 16 Ht 5' 4 Wt 59 kg (130 lb) SpO2 98% BMI 22.31 kg/m PHYSICAL EXAMINATION: General Appearance: Alert, well appearing, and in no acute distress. HEENT: Head - Normocephalic, atraumatic. Eyes - VLADIMIR bilaterally and EOMI. Ears - normal external appearance, hearing intact. Nose - normal, no erythema. Throat - mucous membranes moist, pharynx without lesions. Positive for nasal congestion. Rhinorrhea. Neck: Supple, trachea midline. Cardiovascular: S1, S2 normal. No murmurs, rubs, clicks or gallops appreciated. No pedal edema. Respiratory: Expiratory wheezes throughout lung [place]. Productive cough. Abdomen: Soft, non-tender, normal bowel sounds, non-distended, no masses or organomegaly appreciated. Neurological: Grossly normal motor and sensory exam. No focal deficits. Musculoskeletal: No joint tenderness, deformity or swelling. Skin: Normal coloration and turgor. No rashes. Psych: Alert, oriented x 3. Normal mood and affect. REVIEW OF IMAGING STUDIES / LABORATORY DATA: EXAMINATION: 07/14/20 CT ABDOMEN PELVIS WITHOUT CONTRAST HISTORY: ORDERING SYSTEM PROVIDED HISTORY: Abdominal pain, acute, nonlocalized, TECHNOLOGIST PROVIDED HISTORY: Illness/Other Reason for exam: upper abdominal pains, nausea Encounter Type: Initial Additional signs and symptoms: ORDERING SYSTEM PROVIDED DIAGNOSIS CODES: R06.03 Respiratory distress R06.1 Stridor J06.9 Acute URI COMPARISON: Ultrasound kidneys retroperitoneum 06/02/2020 TECHNIQUE: CT examination of the abdomen and pelvis without IV contrast. Coronal and sagittal reformations were performed. Dose reduction techniques were achieved by using automated exposure control and/or adjustment of mAand/or kV according to patient size and/or use of iterative reconstruction technique. FINDINGS: Visualized lung bases unremarkable. Visualized cardiac apex unremarkable. Liver, spleen, pancreas, adrenal glands, kidneys are unremarkable. Biliary sludge. 3 mm right mid renal stone. No overt hydronephrosis. No evidence for small bowel obstruction, large ascites, or free air. Cannot be treated and there is no need for treatment right now. The stone may eventually have the period of time get larger and may require treatment in the future. Bladder fluid-filled distended without wall thickening. Uterus and pelvic structures unremarkable. Appendix unremarkable. No evidence for appendicitis. No acute bony abnormality. IMPRESSION: 3 mm right mid renal stone. No overt hydronephrosis. Gallbladder biliary sludge. No evidence for appendicitis. ASSESSMENT AND RECOMMENDATIONS: Kendall Vasques is a 34 y.o. y/o female presenting with 3 mm stone in the right renal pelvis. No evidence of obstruction. Urology consultation was requested to evaluate and see if this may have in relation to the pain the patient describes. Based on review of the CT scan the stone is very small and if it would move into the ureter or more certainly it would pass with minimal discomfort. However the stone is now in right renal pelvis and is not causing any obstruction. The stone is so small andif it would move down in the ureter although certainly with past without too much difficulties. Thestone may eventually get larger in the future and then caused ureteral obstruction I would recommend periodic reevaluation of the size and position of the stone. As I am not able to see this patient outside the hospital as I am not in her insurance network she she should follow-up with urologist, she is already established I think follow-up in 1 year would be appropriate.. TULIO SCHAFFER MD CC Winsome Cuevas, DECK MECHANIC * Tl Bautista MD - 07/16/2020 4:52 PM EDT [facility] MEDICINE CONSULT NOTE Patient Name: Kendall Vasques Admit Date: [id number] MR #: [id number] : 1985 Physicians: Winsome Cuevas, DORETHA (Family); No ref. provider found (referring) Ordering Provider: Dr Chucho Hansen Principal Problem: Asthma exacerbation attacks Assessment and Plan: GABAPENTIN WITHDRAWAL 1. Curious why this was suddenly decreased by her provider and I will need to discuss with her on Thursday. Hopefully an ARNIE has been obtained for her gabapentin prescriber. If she is wanting to get we can work out a taper plan with her prescriber - ? Which she may already be on?. 2. Withdrawal will be similar to other CAMMIE substances like alcohol and benzodiazepines. Discussed would keep her on what she had been prescribed and add baclofen instead of flexeril or ativan. If longer term bipolar? might benefit from longer term topiramate.? Would avoid benzodiazepines. Assessment Detail: The total time spent for this visit was 25 to 30 mins minutes. Greater than 50% of the time was spent in coordination of care Dr Hansen. Reason for Consult: management of gabapentin withdrawal History of Present Illness: Kendall Vasques is a 34 y.o. y/o female presenting from home with c/o difficulty breathing Chief Complaint Patient presents with Respiratory Distress Patient is in 3717. I spoke with Dr Hansen after the patient expressed that she is in gabapentin withdrawal. She had been up to 800 QID and then suddenly to 100 QID for one week the TID for one week. Came in with trouble breathing and now is more anxiety. Told Dr Hansen that she was put on this for restless legs and is wanting to get off in order to safely become . He had put her on flexeril and gabapentin 600. Past Medical History: Diagnosis Date Asthma Chronic kidney disease Hypertension Hypoglycemia Kidney stones Kidney stones Migraine RLS (restless legs syndrome) Seizures (HCC) Sleep apnea Past Surgical History: Procedure Laterality Date cone biopsy cervix 2010 EXPLORATORY LAPAROTOMY to check for endometriosis. had scar tissue that was twisting the bowel and that was fixed. KIDNEY STONE SURGERY 2009, 2012, 2013, 2014 RIGHT OOPHORECTOMY 2013 TONSILECTOMY, ADENOIDECTOMY, BILATERAL MYRINGOTOMY AND TUBES 2013 Family History Problem Relation Age of Onset Hypertension Father Stroke Father Seizures Sister epilepsy Diabetes Maternal Grandfather Cancer Paternal Grandmother breast cancer Social History Socioeconomic History Marital status: Spouse name: Not on file Number of children: Not on file Years of education: Not on file Highest education level: Not on file Occupational History Not on file Tobacco Use Smoking status: Never Smoker Smokeless tobacco: Never Used Vaping Use Vaping Use: Never used Substance and Sexual Activity Alcohol use: No Drug use: No Sexual activity: Not on file Other Topics Concern Not on file Social History Narrative Not on file Social Determinants of Health Financial Resource Strain: Difficulty of Paying Living Expenses: Food Insecurity: Worried About Running Out of Food in the Last Year: Ran Out of Food in the Last Year: Transportation Needs: Lack of Transportation (Medical): Lack of Transportation (Non-Medical): Physical Activity: Days of Exercise per Week: Minutes of Exercise per Session: Stress: Feeling of Stress : Social Connections: Frequency of Communication with Friends and Family: Frequency of Social Gatherings with Friends and Family: Attends Yazidi Services: Active Member of Clubs or Organizations: Attends Club or Organization Meetings: Marital Status: AOD History: ?? Treatment history: none reported but is Longest period of sobriety: ?N/A OD history: ?no? Typical withdrawal symptoms: ?? 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 Psychiatric History: Diagnoses: ? Previous Medications Medication Sig acetaminophen (TYLENOL) 500 MG tablet Take 1,000 mg by mouth as needed for pain . albuterol (PROVENTIL) 2.5 mg /3 mL (0.083 %) nebulizer solution Take 2.5 mg by nebulization every 6(six) hours as needed for wheezing . dextromethorphan hb/doxylamine (VICKS NYQUIL COUGH ORAL) Take 1 Dose by mouth daily . gabapentin (NEURONTIN) 100 MG capsule Take 200 mg by mouth 3 (three) times a day Reasons: one to two pills nightly. vit,calc76/iron/folic (THRIVITE RX ORAL) Take 1 tablet by mouth every morning . tiZANidine (ZANAFLEX) 4 MG tablet Take 4 mg by mouth 2 (two) times a day . traZODone (DESYREL) 150 MG tablet Take 150 mg by mouth nightly . Allergies Allergen Reactions Tramadol Seizures Codeine Hives Flagyl [Metronidazole] Shrimp Topamax [Topiramate] Adhesive Tape-Silicones Rash Patient Vitals for the past 24 hrs: BP Temp Temp src Pulse Resp SpO2 07/16/20 1555 120/77 97.3 F (36.3 C) Oral 79 16 98 % 07/16/20 1128 109/71 97.2 F (36.2 C) Oral 95 14 97 % 07/16/20 0719 114/78 98 F (36.7 C) Oral 85 14 99 % 07/16/20 0400 16 07/16/20 0322 135/68 98.1 F (36.7 C) Oral 70 16 96 % 07/16/20 0047 102/68 98 F (36.7 C) Oral 70 16 99 % 07/16/20 0041 18 07/15/202011 96 % 07/15/20 1958 108/71 98 F (36.7 C) Oral 60 14 97 % Allergy Information: I have reviewed the patient's allergies. Tramadol, Codeine, Flagyl [metronidazole], Shrimp, Topamax [topiramate], and Adhesive tape-silicones Home Medications: Outpatient Medications as of 07/16/2020 Medication Sig gabapentin (NEURONTIN) 100 MG capsule Take 200 mg by mouth 3 (three) times a day Reasons: one to two pills nightly. Laboratory & Radiographic Imaging (if done): Recent Results (from the past 24 hour(s)) POC Glucose Collection Time: 07/16/20 1:07 PM Result Value Ref Range Glucose 82 65 - 99 mg/dL RADIOLOGY SCANS Final Result CT Abdomen Pelvis Without Contrast Final Result 3 mm right mid renal stone. No overt hydronephrosis. Gallbladder biliary sludge. No evidence for appendicitis. Workstation ID: [id number] CT Soft Tissue Neck With Contrast Final Result No obvious CT evidence for epiglottitis or tonsillitis. No abnormal fluid collection is seen in thesoft tissues of the neck to suggest abscess. Multiple small cervical lymph nodes are seen bilaterally measuring up to 1 cm in short axis. Workstation ID: [id number] XR Neck Soft Tissue Final Result Patent airway. No prevertebral soft swelling. ST/mjr Workstation ID: [id number] XR Chest 1 View Final Result Possible peribronchial infiltrate in the left upper lobe. PRL/lab Workstation ID: [id number] CT Abdomen Pelvis With IV Contrast Only (Results Pending) * Sirena Fuller MD - 07/14/2020 7:40 AM EDT Associated Order(s): IP CONSULT TO ENT Assessment/plan: No airway compromise. Patient may be followed as an elective consult with ENT if needed. Please do not hesitate to call me personally at [phone] for any questions or emergencies. Patient last name: Onelia Patient first name: Nereida : 1985 MR number: [id number] Date and time of consultation: 07/14/2020, 07: 00 Reason for consultation: Stridor Consultation requested by: Dr. Huntley Consulting physician: MD Leticia CC/HPI: Patient is a very pleasant 34 years old female, admitted to the hospital for episode of shortness of breath, which was associated with inspiratory stridor, anxiety, desaturation to 80% based on the ED observation. The symptoms had significantly improved upon IV management with steroids, racemic epi, IM epi and patient currently is presenting no stridor, voice changes, difficulties to swallow or breathe, cough, hemoptysis. She states that had similar episode approximately 2 years ago. Review of systems: Is otherwise negative for 8 other systems reviewed with the patient personally. Physical exam: BP (!) 91/46 (BP Location: Right arm, Patient Position: Lying) Pulse 93 Temp 98 F (36.7 C) (Oral) Resp 14 Ht 5' 4 Wt 59 kg (130 lb) SpO2 96% BMI 22.31 kg/m General: Awake alert and oriented x3, no respiratory distress, communicates verbally with normal voice and no SOB Head: Normocephalic and atraumatic. Face: Symmetric and not impaired facial expression muscle movements HB grade 1, preserved sensitivity on all 3 branches of trigeminal nerve presentation, no lesions or subcutaneous masses. Eyes: Pupils equal round and reactive to light, extraocular muscle movements intact, no nystagmus, no subjective vision changes. Nose: No external nose deformity, patent naris is, deviated but not obstructing nasal septum, no visible lesions or masses, no pathologic discharge. Mouth: Lips and oral mucosa with slightly dry appearance, tongue movements and sensitivity symmetric and preserved in full range, no visible lesions or palpable masses. Uvula on midline, symmetric elevation, no posterior pharyngeal wall lesions or asymmetry. Ears: Bee auricular area no pain to palpation or percussion of the mastoid area, external ear canals with moderate amount of wax, visible portions of tympanic membranes intact, age appropriately diminished hearing, with no recent subjective changes. Neck: Supple, preserved range of motions, no visible or palpable lymph nodes, masses or thyromegaly. Chest: Mixed inspiration and expiration stridor transmits to the neck, regular rhythm and normal rate of heartbeats, no wheezes. Imaging: I had personally reviewed available on chart CT neck with contrast images and provided my independent interpretation on below presented official impression: No obvious CT evidence for epiglottitis or tonsillitis. No abnormal fluid collection is seen in thesoft tissues of the neck to suggest abscess. Labs: Reviewed as available on chart and not contributory to the reason of this consultation. There was no necessity to perform bedside flexible laryngoscopy due to patient's current clinical presentation of the airway condition and regular ENT exam. Mayo Fuller MD documented in this [id number] History and physical note* Sobia London CNP - 07/13/2020 4:36 PM EDT [facility] Medicine Inpatient H&P 07/13/2020 Sobia London CNP [facility] Patient: Kendall Vasques Date of : 1985 (34 y.o.) PCP: Winsome Cuevas CNP Assessment Kendall [place] 34 y.o. female with history of hypoglycemia, migraine, seizure, asthma, sleep apnea, kidney stones, restless leg syndrome, chronic kidney disease, hypertension. Principal Problem: Asthma exacerbation attacks Plan: Admit to inpatient intermediate -Continuous cardiac monitoring -Continuous pulse ox -Bronchodilators scheduled and as needed -Continue home medication -Oxygen per protocol -Activity as tolerated -Regular diet -Routine lab work -ENT consulted by SHAAN Figueredo for DVT prophylaxis -IV Solu-Medrol 40 mg every 8 hours -Azithromycin 500 mg IV daily -Rocephin 1 g IV daily -Would recommend pulmonary consult if diesn't improve SUBJECTIVE: Chief Complaint: Shortness of breath History of Presenting Illness: Kendall Vasques is a 34 y.o. female presenting from home with complaint of shortness of breath. Patient reports that yesterday morning she woke up with a sore throat. Patient reported that she had a cough, productive with some yellow sputum. She reports that approximately 11 AM today she became very short of breath and was wheezing. She states that she used a breathingtreatment at home, but this did not help. She went to a freestanding urgent care, where she was shipped to [facility]. Patient reports that this is happened in the past. Patient reports that she was last hospitalized in 2019 for similar symptoms. She does not follow with pulmonology outpatient, reports that her PCP manages her asthma. Patient states that she did have a fever of 101 today along with nausea and chest pain which was worse when she took a deep breath in. Patient states that she has also been having migraines for the past 2 to 3 days with a productive cough. Patient reports that she feels like she has edema in her hands and feet. Patient states that she has sleep apnea, but does not use CPAP. She has a history of seizures, reporting the last episode in 2019. Patient denies any vomiting, constipation, diarrhea, blurred vision, double vision, urinary urgency or frequency, melena, hematochezia. Review of Systems: 10 systems reviewed and negative other than noted in HPI History: Past Medical History: Diagnosis Date Asthma Chronic kidney disease Hypertension Hypoglycemia Kidney stones Kidney stones Migraine RLS (restless legs syndrome) Seizures (HCC) Sleep apnea Past Surgical History: Procedure Laterality Date cone biopsy cervix 2010 EXPLORATORY LAPAROTOMY to check for endometriosis. had scar tissue that was twisting the bowel and that was fixed. KIDNEY STONE SURGERY 2009, 2012, 2013, 2014 RIGHT OOPHORECTOMY 2014 TONSILECTOMY, ADENOIDECTOMY, BILATERAL MYRINGOTOMY AND TUBES 2012 Family History Problem Relation Age of Onset Hypertension Father Stroke Father Seizures Sister epilepsy Diabetes Maternal Grandfather Cancer Paternal Grandmother breast cancer Social History Tobacco Use Smoking Status Never Smoker Smokeless Tobacco Never Used Social History Substance and Sexual Activity Alcohol Use No Family and Social History reviewed and non-pertinent to this visit. Allergies: Tramadol, Codeine, Flagyl [metronidazole], Shrimp, Topamax [topiramate], and Adhesive tape-silicones Home Medications: Outpatient Medications as of 07/13/2020 Medication Sig gabapentin (NEURONTIN) 100 MG capsule Take 200 mg by mouth 3 (three) times a day Reasons: one to two pills nightly. OBJECTIVE: Physical Examination: BP (!) 98/58 (BP Location: Left arm, Patient Position: Sitting) Pulse (!) 108 Temp 97.9 F (36.6C) (Oral) Resp (!) 20 Ht 5' 4 Wt 56.7 kg (125 lb) SpO2 100% BMI 21.46 kg/m General Appearance: Alert, well appearing, and in no acute distress. HEENT: Head - Normocephalic, atraumatic. Eyes - VLADIMIR bilaterally and EOMI. Ears - normal external appearance, hearing intact. Nose - normal, no erythema. Throat - mucous membranes moist, pharynx without lesions. Positive for nasal congestion. Rhinorrhea. Neck: Supple, trachea midline. Cardiovascular: S1, S2 normal. No murmurs, rubs, clicks or gallops appreciated. No pedal edema. Respiratory: Expiratory wheezes throughout lung boston. Productive cough. Abdomen: Soft, non-tender, normal bowel sounds, non-distended, no masses or organomegaly appreciated. Neurological: Grossly normal motor and sensory exam. No focal deficits. Musculoskeletal: No joint tenderness, deformity or swelling. Skin: Normal coloration and turgor. No rashes. Psych: Alert, oriented x 3. Normal mood and affect. Laboratory and Additional Data Reviewed: Results/Medications Reviewed 07/13/20 4:36 PM: Results from last 7 days Lab Units 07/13/20 1426 SODIUM mmol/L 141 POTASSIUM mmol/L 3.7 CHLORIDE mmol/L 110* BUN mg/dL 8 CREATININE mg/dL 1.07 GLUCOSE mg/dL 105* Results from last 7 days Lab Units 07/13/20 1426 07/13/20 1424 WBC K/mcL 7.97 -- HGB g/dL 13.1 -- HEMOGLOBIN BG g/dL -- 13.8 HEMATOCRIT, CALCULATED % -- 42.2 HCT % 40.5 -- PLT K/mcL 209 -- Results from last 7 days Lab Units 07/13/20 1426 TROPONIN I ng/L <15 Results from last 7 days Lab Units 07/13/20 1426 ALK PHOS U/L 68 BILIRUBIN TOTAL mg/dL 0.4 BILIRUBIN DIRECT mg/dL 0.1 TOTAL PROTEIN g/dL 7.2 ALTR U/L 38 AST U/L 23 CULTURES: Reviewed 4:36 PM IMAGING: Reviewed 4:36 PM documented in this [id number] Emergency department Note* Vianey Shankar - 07/13/2020 4:06 PM EDT Bed: 18 Expected date: Expected time: Means of arrival: Comments: Room 7 * Henry Huntley MD - 07/13/2020 2:22 PM EDT Associated Order(s): Critical Care ED Physician Note: NAME: Kendall Vasques 34 y.o. CSN: [id number] PCP: Winsome Cuevas CNP ED Course / Medical Decision Making: Patient will be admitted for further care. Patient has initial respite distress. Had stridor at rest. Unclear if this is for stridor or true stridor. She had no wheezing on my exam. She was exchanging air to bilateral lung boston initially. She was tachycardic. She was satting well on nonrebreather. Prehospital sats are 80% for EMS. We did not get her sats here in ER on room air. Patient was given IM epinephrine, received epinephrine, 2 more albuterol treatments, 2 g of magnesium and Solu-Medrol IV. I spoke with Dr. Wang initially of ENT due to her distress and stridor. She would not tolerate laying flat for CAT scan. He was going to come in to do an emergent nasopharyngeal scope to check out her oropharynx, epiglottis, etc. I feel patient's symptoms are more upper airway related. Patient had significant improvement here in the ER and has no stridor at rest, satting well on nasal cannula. We have been decreasing her oxygen supply in a stepwise fashion and she is tolerating this well. Patient on direct visualization at bedside has a normal oropharyngeal exam. There is no signs of obvious peritonsillar abscess, etc. Patient has stable blood work and normal labs. Her chest x-ray showspossible bronchopneumonia and Rocephin and azithromycin was started. Patient has a normal lateral neck x-ray. I spoke with Dr. Wang and he'll see patient in consultation in a urgent manner or sooner with and emergent issue on the floor. I spoke with the hospitalist will be admitted to the stepdown. . . Clinical Impression: 1. Respiratory distress 2. Stridor 3. Acute URI Disposition: [facility] History: Chief Complaint: Respiratory Distress HPI: The history was obtained from the patient. She is a 34 y.o. female who presents with a chief complaint of Respiratory Distress. HPI patient presents for concerns of respiratory distress. She has history of asthma. She has had URI signs and symptoms since yesterday. These include cough, shortness of breath, chest pain, runny nose, congestion, fever. States that she has been taking an inhaler at home without relief. Became worse today. Called EMS and was brought here for further care. Prehospital O2 sats for EMS were 80% onroom air. Placed on nonrebreather. Given DuoNeb prior to arrival. PMHx: Past Medical History: Diagnosis Date Asthma Chronic kidney disease Hypoglycemia Kidney stones Migraine RLS (restless legs syndrome) Seizures (HCC) Sleep apnea PMSx: Past Surgical History: Procedure Laterality Date cone biopsy cervix 2010 EXPLORATORY LAPAROTOMY to check for endometriosis. had scar tissue that was twisting the bowel and that was fixed. KIDNEY STONE SURGERY 2009, 2012, 2013, 2015 RIGHT OOPHORECTOMY 2014 TONSILECTOMY, ADENOIDECTOMY, BILATERAL MYRINGOTOMY AND TUBES 2013 FAM. Hx: Family History Problem Relation Age of Onset Hypertension Father Stroke Father Seizures Sister epilepsy Diabetes Maternal Grandfather Cancer Paternal Grandmother breast cancer SOC. Hx: Social History Socioeconomic History Marital status: Spouse name: Not on file Number of children: Not on file Years of education: Not on file Highest education level: Not on file Occupational History Not on file Tobacco Use Smoking status: Never Smoker Smokeless tobacco: Never Used Substance and Sexual Activity Alcohol use: No Drug use: No Sexual activity: Not on file Other Topics Concern Not on file Social History Narrative Not on file Social Determinants of Health Financial Resource Strain: Difficulty of Paying Living Expenses: Food Insecurity: Worried About Running Out of Food in the Last Year: Ran Out of Food in the Last Year: Transportation Needs: Lack of Transportation (Medical): Lack of Transportation (Non-Medical): Physical Activity: Days of Exercise per Week: Minutes of Exercise per Session: Stress: Feeling of Stress : Social Connections: Frequency of Communication with Friends and Family: Frequency of Social Gatherings with Friends and Family: Attends Yazidi Services: Active Member of Clubs or Organizations: Attends Club or Organization Meetings: Marital Status: MEDs: Previous Medications Medication Sig acetaminophen (TYLENOL) 500 MG tablet Take 1,000 mg by mouth as needed for pain . dextromethorphan hb/doxylamine (VICKS NYQUIL COUGH ORAL) Take 1 Dose by mouth daily . gabapentin (NEURONTIN) 100 MG capsule Take 200 mg by mouth 3 (three) times a day Reasons: one to two pills nightly. vit,calc76/iron/folic (THRIVITE RX ORAL) Take 1 tablet by mouth every morning . tiZANidine (ZANAFLEX) 4 MG tablet Take 4 mg by mouth 2 (two) times a day . traZODone (DESYREL) 150 MG tablet Take 150 mg by mouth nightly . chlorthalidone (HYGROTEN) 25 MG tablet Take 25 mg by mouth daily . dicyclomine (BENTYL) 10 MG capsule Take 10 mg by mouth 4 (four) times a day as needed . ibuprofen (ADVIL,MOTRIN) 600 MG tablet Take 600 mg by mouth every 6 (six) hours as needed for pain. levETIRAcetam (KEPPRA) 500 MG tablet Take 500 mg by mouth 2 (two) times a day . LORazepam (ATIVAN) 0.5 MG tablet Take 1 (one) tablet (0.5 mg total) by mouth every 8 (eight) hours as needed for anxiety. (Patient taking differently: Take 0.5 mg by mouth daily as needed for anxiety.) norethindrone-ethinyl estradiol (MICROGESTIN /20) 1-20 mg-mcg per tablet Take 1 tablet by mouth daily . omeprazole (PRILOSEC) 40 MG capsule Take 40 mg by mouth daily . ondansetron (ZOFRAN-ODT) 4 MG disintegrating tablet Dissolve 8 mg on top of tongue every 6 (six) hours as needed for nausea (under tongue) . potassium chloride SA (K-DUR,KLOR-CON) 20 MEQ tablet Take 20 mEq by mouth 2 (two) times a day as needed . tiZANidine (ZANAFLEX) 2 MG capsule Take 1 (one) capsule (2 mg total) by mouth 3 (three) times a day. (Patient taking differently: Take 4 mg by mouth 2 (two) times a day as needed for muscle spasms Reasons: muscle spasm.) ALL: Allergies Allergen Reactions Tramadol Seizures Codeine Hives Flagyl [Metronidazole] Shrimp Topamax [Topiramate] Adhesive Tape-Silicones Rash ROS: Review of Systems Constitutional: Positive for fever. Negative for chills. HENT: Positive for congestion and rhinorrhea. Negative for sore throat, trouble swallowing and voice change. Eyes: Negative for pain and redness. Respiratory: Positive for cough and shortness of breath. Cardiovascular: Positive for chest pain. Negative for palpitations. Gastrointestinal: Negative for abdominal pain, constipation, diarrhea, nausea and vomiting. Genitourinary: Negative for difficulty urinating. Musculoskeletal: Negative for back pain, neck pain and neck stiffness. Skin: Negative for rash. Neurological: Negative for dizziness, syncope, weakness, light-headedness and headaches. All other systems reviewed and are negative. Positives and pertinent negatives as per HPI. All other systems were reviewed and are negative. Physical Exam: Patient Vitals for the past 24 hrs: BP Temp Temp src Pulse Resp SpO2 Height Weight 07/13/20 1530 112/61 (!) 107 (!) 24 99 % 07/13/20 1524 108/65 (!) 108 (!) 28 100 % 07/13/20 1452 114/68 (!) 117 (!) 30 100 % 07/13/20 1450 100 % 07/13/20 1422 (!) 131/91 97.9 F (36.6 C) Oral (!) 136 (!) 40 100 % 5' 4 56.7 kg (125 lb) Physical Exam Vitals and nursing note reviewed. Constitutional: General: She is in acute distress. Appearance: Normal appearance. She is well-developed. She is not ill-appearing, toxic-appearing or diaphoretic. HENT: Head: Normocephalic and atraumatic. Nose: Nose normal. Mouth/Throat: Mouth: Mucous membranes are moist. Pharynx: Oropharynx is clear. No oropharyngeal exudate or posterior oropharyngeal erythema. Eyes: General: No scleral icterus. Right eye: No discharge. Left eye: No discharge. Extraocular Movements: Extraocular movements intact. Conjunctiva/sclera: Conjunctivae normal. Right eye: Right conjunctiva is not injected. Left eye: Left conjunctiva is not injected. Pupils: Pupils are equal, round, and reactive to light. Cardiovascular: Rate and Rhythm: Regular rhythm. Tachycardia present. Pulses: Dorsalis pedis pulses are 2+ on the right side and 2+ on the left side. Heart sounds: Normal heart sounds. No murmur heard. No friction rub. No gallop. Comments: Feet are pink and warm with brisk cap refill Pulmonary: Effort: Tachypnea present. No respiratory distress. Breath sounds: Stridor present. No decreased breath sounds, wheezing, rhonchi or rales. Chest: Chest wall: No tenderness. Abdominal: Palpations: Abdomen is not rigid. There is no pulsatile mass. Tenderness: There is no abdominal tenderness. There is no guarding or rebound. Negative signs include Samayoa's sign. Musculoskeletal: General: No tenderness, deformity or signs of injury. Normal range of motion. Cervical back: Normal range of motion and neck supple. No rigidity. Comments: No calf pain, redness, asymmetry or abnormal leg swelling. No palpable cords. Negative Homans sign. No signs of DVT. Lymphadenopathy: Cervical: No cervical adenopathy. Skin: General: Skin is warm. Coloration: Skin is not pale. Neurological: General: No focal deficit present. Mental Status: She is alert and oriented to person, place, and time. Sensory: No sensory deficit. Laboratory & Radiological Imaging (if done): Labs Reviewed CHEM 7 - Abnormal; Notable for the following components: Result Value Chloride 110 (*) Glucose 105 (*) BUN/Creatinine Ratio 7.5 (*) All other components within normal limits Narrative: The eGFR should be used for monitoring renal function only and not for medication dosing. POC VENOUS BLOOD GAS PANEL-PULM - RALS - Abnormal; Notable for the following components: pO2, Cyo 41 (*) O2 Sat, Coy 77.0 (*) All other components within normal limits COVID-19/INFLUENZA A,B MOLECULAR - Normal Narrative: This test was performed under the FDA's Emergency Use Authorization (EUA). Testing was performed using the [employer] An[employer]te SARS-CoV-2 RT-PCR & Influenza A/B Nucleic Acid Teston the Annette [employer] System. This test has not been approved for use in asymptomatic patients and its performance in this patient population has not been evaluated. Negative results do not rule out the presence of SARS-CoV-2, influenza A, and/or influenza B. Fact sheets for the EUA can be found at the following links: For Healthcare Providers: https://www.FireScope.gov/media/306066/download For Patients: https://www.FireScope.gov/media/755023/download HCG, SERUM, QUALITATIVE - Normal Narrative: Negative: The result is less than or equal to 5 mIU/mL of HCG. HEPATIC FUNCTION PANEL - Normal NT PRO BNP - Normal Narrative: Pride Study Cut-offs Rule In: < /= 50 Years >450 pg/mL 51 Years - 75 Years >900 pg/mL 76 Years - 99 Years >1800 pg/mL Rule Out: All patients <300 pg/mL MAGNESIUM LEVEL - Normal D-DIMER, QUANTITATIVE - Normal Narrative: A D-dimer concentration of <0.5 micrograms per milliliter FEU is considered a low probability for pulmonary embolus (PE) and deep venous thrombosis (DVT). Results of this test should always be interpreted in conjunction with the patient's medical history,clinical presentation, and other findings. Clinical diagnosis should not be based on the results of the D-dimer alone. BLOOD CULTURE AEROBIC/ANAEROBIC BLOOD CULTURE AEROBIC/ANAEROBIC CBC AND DIFFERENTIAL Narrative: The following orders were created for panel order CBC w/ Diff. Procedure Abnormality Status --------- ------ CBC Auto Differential[[id number]] Final result Please view results for these tests on the individual orders. TROPONIN OBTAIN VENOUS BLOOD GASES AND PERFORM URINALYSIS TROPONIN CBC WITH AUTO DIFFERENTIAL XR Neck Soft Tissue Preliminary Result Patent airway. No prevertebral soft swelling. ST/mjr Workstation ID: [id number] XR Chest 1 View Final Result Possible peribronchial infiltrate in the left upper lobe. PRL/lab Workstation ID: [id number] Procedures: Critical Care Performed by: Henry Huntley MD Authorized by: Henry Huntley MD Total critical care time: 45 minutes Critical care time was exclusive of separately billable procedures and treating other patients. Critical care was necessary to treat or prevent imminent or life-threatening deterioration of the following conditions: respiratory failure. Critical care was time spent personally by me on the following activities: development of treatmentplan with patient or surrogate, discussions with consultants, discussions with primary provider, evaluation of patient's response to treatment, ordering and performing treatments and interventions, examination of patient, obtaining history from patient or surrogate, ordering and review of radiographic studies, ordering and review of laboratory studies, re-evaluation of patient's condition, reviewof old charts and pulse oximetry. Henry Huntley MD ED Physician Emergency Department (Please note that portions of this note have been completed with a voice recognition software. Efforts were made to correct any errors, but occasionally words are mis-transcribed.) Henry Huntley MD 07/13/20 1553 * Lenora Moss RN - 07/13/2020 2:16 PM EDT Patient presents per EMS with complaints of asthma attack On arrival patient with stridor, on NRMmask, able to talk some answers questions appropriately. States stated started yesterday with SOB, chest pain, congestion cough and runny nose. Denies fever Dr Huntley and RT at bedside * Pj Abarca LPN - 07/13/2020 2:16 PM EDT Bed: 07 Expected date: Expected time: Means of arrival: Comments: AGAPITO documented in this [id number] History of Past illness Narrative* Problem Noted Date Diagnosed Date Resolved Date Urinary tract infection with hematuria 03/19/2016 12/25/2018 Transient alteration of awareness 04/01/2011 11/21/2015 Seizure disorder 09/20/2009 07/15/2011 documented as of this encounter (statuses as of 11/10/2022) [facility]2017 History of Past illness Narrative* Problem Noted Date Diagnosed Date Resolved Date Urinary tract infection with hematuria 03/19/2016 12/25/2018 Transient alteration of awareness 04/01/2011 11/21/2015 Seizure disorder 09/20/2009 07/15/2011 documented as of this encounter (statuses as of 11/11/2022) [facility] History of Past illness Narrative* Problem Noted Date Diagnosed Date Resolved Date Urinary tract infection with hematuria 03/19/2016 12/25/2018 Transient alteration of awareness 04/01/2011 11/21/2015 Seizure disorder 09/20/2009 07/15/2011 documented as of this encounter (statuses as of 11/18/2022) [address]2017 History of Past illness Narrative* Problem Noted Date Diagnosed Date Resolved Date Urinary tract infection with hematuria 03/19/2016 12/25/2018 Transient alteration of awareness 04/01/2011 11/21/2015 Seizure disorder 09/20/2009 07/15/2011 documented as of this encounter (statuses as of 11/24/2022) [address]2017 History of Past illness Narrative* Problem Noted Date Diagnosed Date Resolved Date Urinary tract infection with hematuria 03/19/2016 12/25/2018 Transient alteration of awareness 04/01/2011 11/21/2015 Seizure disorder 09/20/2009 07/15/2011 documented as of this encounter (statuses as of 2022) [facility] History of Past illness Narrative* Problem Noted Date Diagnosed Date Resolved Date Urinary tract infection with hematuria 03/19/2016 12/25/2018 Transient alteration of awareness 04/01/2011 11/21/2015 Seizure disorder 09/20/2009 07/15/2011 documented as of this encounter (statuses as of 12/03/2022) [facility] History of Past illness Narrative* Problem Noted Date Diagnosed Date Resolved Date Urinary tract infection with hematuria 03/19/2016 12/25/2018 Transient alteration of awareness 04/01/2011 11/21/2015 Seizure disorder 09/20/2009 07/15/2011 documented as of this encounter (statuses as of 12/03/2022) [address]2017 History of Past illness Narrative* Problem Noted Date Diagnosed Date Resolved Date Urinary tract infection with hematuria 03/19/2016 12/25/2018 Transient alteration of awareness 04/01/2011 11/21/2015 Seizure disorder 09/20/2009 07/15/2011 documented as of this encounter (statuses as of 12/17/2022) [facility] History of Past illness Narrative* Problem Noted Date Diagnosed Date Resolved Date Urinary tract infection with hematuria 03/19/2016 12/25/2018 Transient alteration of awareness 04/01/2011 11/21/2015 Seizure disorder 09/20/2009 07/15/2011 documented as of this encounter (statuses as of 12/18/2022) [facility] History of Past illness Narrative* Problem Noted Date Diagnosed Date Resolved Date Urinary tract infection with hematuria 03/19/2016 12/25/2018 Transient alteration of awareness 04/01/2011 11/21/2015 Seizure disorder 09/20/2009 07/15/2011 documented as of this encounter (statuses as of 01/13/2023) [facility] History of Past illness Narrative* Problem Noted Date Diagnosed Date Resolved Date Urinary tract infection with hematuria 03/19/2016 12/25/2018 Transient alteration of awareness 04/01/2011 11/21/2015 Seizure disorder 09/20/2009 07/15/2011 documented as of this encounter (statuses as of 01/14/2023) [facility] History of Past illness Narrative* Problem Noted Date Diagnosed Date Resolved Date Urinary tract infection with hematuria 03/19/2016 12/25/2018 Transient alteration of awareness 04/01/2011 11/21/2015 Seizure disorder 09/20/2009 07/15/2011 documented as of this encounter (statuses as of 01/14/2023) [facility] History of Past illness Narrative* Problem Noted Date Diagnosed Date Resolved Date Urinary tract infection with hematuria 03/19/2016 12/25/2018 Transient alteration of awareness 04/01/2011 11/21/2015 Seizure disorder 09/20/2009 07/15/2011 documented as of this encounter (statuses as of 01/29/2023) [facility] November 27, 2022 1:54pm Note Date/Time November 27, 2022 1 :54pm [facility] Medical Records Department [address] [place] [address] Instructions for Home/Discharge Instructions 11/27/22 1354 MR#: [id number] Acct: [id number] Name: KENDALL VASQUES Rep #:[id number] : 1985 37 From: Colleen Zavala MD PCP: Winsome Cuevas CNP Status:REG [facility] Discharge Instructions Diet Discharge Diet: No restrictions Activity May resume sexual activity in: 1 week Dressing / Incision Call your doctor if you observe: Fever of 101 or Higher, Inability to urinate, Using more than 1 pad per hour and Uncontrolled pain Follow Up Care Please Follow Up With: Colleen Jacob MD When: 1-2 weeks post OP if you need an appointment please call [phone] Test Results: Test results from this visit will be discussed in further detail at your follow- up appointment, if applicable. Discharge Plan Admission Attending Provider: Yvonne Castañeda Primary Care Provider: Winsome Cuevas CNP Discharge Orders/Prescriptions Prescriptions: No Action albuterol sulfate [Ventolin HFA] 1 INHALER inhaler 1 - 2 puff inhalation Q6H PRN PRN (Reason: Asthma) trazodone 150 mg PO/SL QHS ondansetron 4 mg tablet,disintegrating 4 mg PO Q8H PRN (Reason: nausea and vomiting) Qty: 10 0RF diphenhydramine-acetaminophen [Tylenol PM Extra Strength] 25-500 mg Tablet 1 tab PO QHS Rx Instructions: administer while awake prenat vit [id number],6 35-5-1.2-400 mg Capsule 1 cap PO DAILY sertraline [Zoloft] 100 mg tablet 100 mg PO DAILY Referrals / Follow Up: Winsome Cuevas CNP [Other] Disposition Disposition (needs filled in before D/C Order can be placed): Home, Self Care 11/27/22 3074<Electronically signed by Colleen Jacob MD>Colleen Jacob MD CC: DORETHA Cuevas ~ Signed [facility] Work Phone: Discharge summary Author Guillermo Gilliland [facility] Note Date/Time August 24, 2024 1:42p m [facility] Medical Records Department [address] [place] [address] Emergency Department Summary 08/24/24 MR#: [id number] Acct: [id number] Name: KENDALL VASQUES Rep #:[id number] : 1985 38 From: Guillermo Gilliland DO PCP: Winsome Cuevas NP-C Status:REG ER Location: ED HPI History of Present Illness Chief Complaint: Flank Pain Narrative Narrative: Patient is a 38-year-old female with past medical history of GERD, asthma, previous kidney stones as required lithotripsy, IBS, hypoglycemia, depression, stress- induced seizure, hypertension, recent spinal fusion back in June L4-L5 whopresents to the emergency department chief complaint of left flank pain. Patient notes that she was recently diagnosed last week at [facility] with aleft-sided kidney stone measuring 6 mm nonobstructing and was sent home with [facility]. She states that she was seeing her kidney doctor at that point time andwas closer for her to go there as opposed to here in the emergency department. Patient states that she lives in [place] and follows with urologist Dr. Potter and she states that she called the office however states that they were not taking appointments until September as they are transitioning to [place]. [facility] Medical History History of renal disease Gastric reflux Asthma PONV (postoperative nausea and vomiting) Leg cramps History of ventricular septal defect Vomiting Seizure BPPV (benign paroxysmal positional vertigo) Difficult intravenous access Non-smoker Dysautonomia-like disorder Nephrolithiasis History of echocardiogram Wears glasses Anemia Easy bruising Restless legs Back pain Seizures Dietary restriction History of IBS Shortness of breath on exertion History of edema History of irregular heartbeat Hypoglycemia Anxiety Depression Migraines Kidney disease Hypertension Home Medications ?Medication ?Instructions ?Recorded ?Last Taken ?Type albuterol sulfate 90 mcg/actuation 1 - 2 puff inhalati on Q6H PRN PRN 03/22/13 05/24/14 08:49 History aerosol inhaler (Ventolin HFA) Asthma trazodone 150 mg PO/SL QHS 12/31/20 History diphenhydramine 25 1 tab PO QHS 10/22/21 History mg-acetaminophen 500 mg tablet (Tylenol PM Extra Strength) spironolactone 25 mg tablet 25 mg PO QDAY 07/01/2304/12 History hydrochlorothiazide 12.5 mg capsule 12.5 mg PO QDAY 04/17/24 History potassium citrate 10 mEq (1,080 10 meq PO TID 10/05/23 04/17/24 History mg) tablet,extended release vortioxetine 10 mg tablet 10 mg PO QDAY 10/05/2304/17 History (Trintellix) ondansetron 4 mg disintegrating 4 mg PO Q8H PRN PRN Na usea #10 tabs 12/29/23 04/17/24 Rx tablet tizanidine 2 mg tablet 8 mg PO TID PRN PRN muscle 1 04/06/23 04/17/24 History spasticity pantoprazole 40 mg tablet,delayed 40 mg PO BID N/V, Ga stritis #60 02/25/24 04/18/24 Rx release tabs metoclopramide HCl 10 mg tablet 10 mg PO 4X/DAY PRN na usea and 03/10/24 04/10/24 Rx (Reglan) vomiting #28 tabs buspirone 5 mg tablet 5 mg PO TID PRN anxiety 03/1904/16/24 History ciprofloxacin HCl 500 mg tablet 500 mg PO BID 5 days # 10 tabs 08/24/24 Unknown Rx ondansetron 4 mg disintegrating 4 mg PO Q6H PRN nausea and 08/24/24 Unknown Rx tablet vomiting #20 tabs oxycodone 5 mg capsule 5 mg PO Q6H PRN pain 2 days #8 caps 08/24/24 Unknown Rx Allergy/AdvReac Type Severity Reaction Status Date / Time amoxicillin Allergy Severe hives Verified 08/24/24 11:16 baclofen Allergy Severe incontinenc Verified 08/24/24 11:16 e codeine Allergy Hives Verified 08/24/24 11:16 metronidazole (From Flagyl) Allergy Shortness Verified 08/24/24 11:16 of breath morphine Allergy Hives Verified 08/24/24 11:16 shellfish derived Allergy Angioedema Verified 08/24/24 11:16 topiramate (From Topamax) Allergy Other Verified 08/24/24 11:16 tramadol AdvReac Severe seizures Verified 08/24/24 11:16 adhesive AdvReac Rash Verified 08/24/24 11:16 NSAIDS (Non-Steroidal AdvReac PT UNSURE Verified 08/24/24 11:16 Anti-Inflamma OF REACTION Family History Father No cardiac disease Mother No cardiac disease Other Arthritis Asthma Blood clot in vein Bowel disease Breast cancer CVA (cerebral vascular accident) Cervical cancer Depression Diabetes High cholesterol Hypertension Seizures Suicidal ideation Surgical History History of spinal fusion Hx of dilation and curettage History of radiofrequency ablation (RFA) of nerve of lumbar spine H/O: hysterectomy Hx of laparoscopy S/P removal of right ovary S/P tonsillectomy S/P breast lumpectomy Previous section Social History household members: spouse Smoking Status: Never smoker alcohol intake: current alcohol intake frequency: holidays/special occasions only substance use type: does not use what type of physical activity do you participate in: none ROS ROS ED ROS Narrative Constitutional: Complains of sweating denies any fevers denies headaches Cardiovascular: Denies chest pain Respiratory: Denies shortness of breath Abdomen: Denies abdominal pain vomiting diarrhea : Complains of left flank pain and kidney stone as noted above. States that she started peeing blood recently. Patient notes that she has been straining her urine religiously and notes that she has not passed the stone yet Neurological: Denies any numbness, wheeze, tingling Musculoskeletal: Complains of left flank pain as noted above Skin: Denies any rashes or lesions EXAM Physical Exam Narrative Exam Narrative: General: Patient was lying in bed rest comfortably did appear to be uncomfortable secondary to her pain Head: Atraumatic, normocephalic Eyes: PERRL bilaterally, EOMI blood, no conjunctival injection noted Neck: Soft, supple, trachea midline Cardiovascular: Regular rate and rhythm Respiratory: Clear to auscultation bilaterally Abdomen: Soft, nondistended, tender to palpation Extremities: +5/5 strength noted in the bilateral upper and lower extremities Neurological: Patient follow commands and that she was at [facility] [id number] Skin: Warm, dry contact no rashes or lesions noted Const Vital Signs: 08/24/24 11:13 08/24/24 11:16 08/24/24 12:12 Temperature 98.1 F 98.1 F Temperature Source Oral Oral Pulse Rate 95 95 88 Respiratory Rate 26 H 26 H 18 Blood Pressure 125/79 H 125/79 H 113/71 Blood Pressure Mean 94 94 85 Pulse Ox 100 100 98 Oxygen Delivery Method Room Air Room Air Room Air 08/24/24 12:16 08/24/24 13:00 Temperature 98.3 F Temperature Source Oral Pulse Rate 88 89 Respiratory Rate 18 16 Blood Pressure 113/71 113/79 Blood Pressure Mean 85 90 Pulse Ox 98 99 Oxygen Delivery Method Room Air MDM MDM MDM Narrative Medical decision making narrative: Patient is a 38-year-old female who presents to the emergency department with a chief complaint of flank pain and concern for her kidney stone worsening. On the differential diagnosis includes but not limited to urolithiasis, obstructingstone, UTI, pyelonephritis, acute kidney injury. Once workup is obtained reviewed she will be reevaluated. Patient given IV fluids Zofran and fentanyl. Patient CBC was reviewed and showed no evidence leukocytosis white blood count was 7.3, he was 11.4, platelet count of 181. Patient sodium was 139, potassium normal at 4.1, creatinine was 0.92. Patient's AST and ALT are 25 and 13 respectively with a normal total bilirubin 0.26. Patient lipase was 31. test negative, urinalysis showed 25 occult blood negative nitrites negative leukocyte esterase 0-5 white cells with 2+ bacteria this was sent for culture. Patient's CT abdomen pelvis without contrast reviewed showed 2.5 mm nonobstructive calculus in the left lower pole of the kidney no evidence of obstructive uropathy at this point in time. Did discuss results with the patient and patient would like to go home at this point in time. She will be given prescriptions for Zofran, oxycodone as she states that she tolerated this in the past, was advised to continue Flomax, that she already has at home,ciprofloxacin . She was advised to use Tylenol formild to moderate pain. She will be given referral to [facility] as her urologist does not have any availability to see her for the foreseeable future she stated. She is encouraged return with any other concerns or symptoms. All question concerns answered she was discharged home in stable condition peer Lab Data Labs: Laboratory Results - last 24 hr 08/24/24 08/24/24 11:50 12:05 WBC 7.3 RBC 3.76 L Hgb 11.4 L Hct 35.1 L MCV 93.4 MCH 30.3 MCHC 32.5 RDW Std Deviation 44.8 H RDW Coeff of [place] 13.2 Plt Count 181 MPV 10.8 Immature Gran % (Auto) 0.400 Neut % (Auto) 61.7 Lymph % (Auto) 29.7 [place] % (Auto) 7.0 Eos % (Auto) 0.8 Baso % (Auto) 0.4 Absolute Neuts (auto) 4.5 Absolute Lymphs (auto) 2.16 Nucleated RBC % 0 Sodium 139 Potassium 4.1 Chloride 107 Carbon Dioxide 20.6 L Anion Gap 12 BUN 15 Creatinine 0.92 Estim Creat Clear Calc 80.92 Est GFR (MDRD) Non-Af 82 BUN/Creatinine Ratio 16.5 Glucose 92 Calcium 9.3 Total Bilirubin 0.26 AST 25 ALT 13 Alkaline Phosphatase 71 Total Protein 7.0 Albumin 4.1 Globulin 2.9 Albumin/Globulin Ratio 1.4 Lipase 31 Serum , Qual NEGATIVE Urine Color Yellow Urine Clarity Sl. Cloudy Urine pH 6.5 Ur Specific [place] 1.010 Urine Protein 30 H Urine Glucose (UA) Normal Urine Ketones 5 H Urine Occult Blood 25 H Urine Nitrite Negative Urine Bilirubin Negative Urine Urobilinogen Normal Ur Leukocyte Esterase Negative Urine RBC 5-10 SEEN Urine WBC 0-5 SEEN Ur Squamous Epith Cells 5-10 SEEN Urine Bacteria 2+ Urine Mucus 0 SEEN Radiography Diagnostic Testing: Clinical Impression(s) from Imaging Studies Abdomen/Pelvis CT 08/24/24 11:40 IMPRESSION: 2.5 mm nonobstructive calculus in the lower pole calyx of the left kidney. No evidence of obstructive uropathy at this time. Reading Location: [place] [address] Discharge Plan Triage Chief Complaint: Flank Pain ED Provider: Guillermo Gilliland Dx/Rx/DC Orders Clinical Impression: Nephrolithiasis, Flank pain Prescriptions: New ondansetron 4 mg tablet,disintegrating 4 mg PO Q6H PRN (Reason: nausea and vomiting) Qty: 20 0RF oxycodone 5 mg capsule 5 mg PO Q6H PRN (Reason: pain) 2 Days Qty: 8 0RF ciprofloxacin HCl 500 mg tablet 500 mg PO BID 5 Days Qty: 10 0RF No Action spironolactone 25 mg tablet 25 mg PO QDAY tizanidine 2 mg tablet 8 mg PO TID PRN PRN (Reason: muscle spasticity) hydrochlorothiazide 12.5 mg capsule 12.5 mg PO QDAY potassium citrate 10 mEq (1,080 mg) tablet extended release 10 meq PO TID Trintellix 10 mg tablet 10 mg PO QDAY pantoprazole 40 mg tablet,delayed release (DR/EC) 40 mg PO BID Qty: 60 1RF Rx Instructions: 40 mg orally once daily 30 minutes prior to breakfast and dinner albuterol sulfate [Ventolin HFA] 1 INHALER inhaler 1 - 2 puff inhalation Q6H PRN PRN (Reason: Asthma) trazodone 150 mg PO/SL QHS diphenhydramine-acetaminophen [Tylenol PM Extra Strength] 25-500 mg Tablet 1 tab PO QHS Rx Instructions: administer while awake buspirone 5 mg tablet 5 mg PO TID PRN (Reason: anxiety) ondansetron 4 mg tablet,disintegrating 4 mg PO Q8H PRN PRN (Reason: Nausea) Qty: 10 0RF metoclopramide HCl [Reglan] 10 mg tablet 10 mg PO 4X/DAY PRN (Reason: nausea and vomiting) Qty: 28 0RF Primary Care Provider: Winsome Cuevas Referrals: Winsome Cuevas NP-C [Primary Care Provider] - Activity Restrictions/Additional Instructions: Follow-up with [facility] number [phone]. Return with worsening symptoms or any concerns. Take antibiotics as prescribed. Print Language: Swiss Disposition Disposition: Home, Self Care What to do if you have Problems For any increased pain, shortness of breath, bleeding, nausea or vomiting, chestpain, or any unexpected problems, contact your Primary Care Provider. Call [facility] ([phone]) or report to the closest Emergency Room. Call 911 if necessary. 08/24/24 1342 <Electronically signed by Guillermo Gilliland DO> Cosigner Signature (if applicable): CC: MÓNICA Cuevas ~ Signed [facility] Work Phone: Evaluation note* Diagnosis Asthma exacerbation attacks- Primary Respiratory distress Other dyspnea and respiratory abnormality Stridor Acute URI Acute upper respiratory infections of unspecified site Pseudoseizures [facility] Diagnosis Avulsion of toenail, initial encounter- Primary [facility] Diagnosis delivery- Primary Early onset of delivery, unspecified as to episode of care Nonepileptic episode (HCC) Other convulsions premature rupture of membranes (PPROM) with unknown onset of labor Renal calculus Calculus of kidney documented in this encounter [facility] Work Phone: Evaluation note* Diagnosis Generalized anxiety disorder- Primary Psychophysiological insomnia Persistent disorder of initiating or maintaining sleep Nausea Nausea alone Chronic right-sided thoracic back pain documented [facility]* Diagnosis Mild intermittent asthma without complication- Primary Unspecified asthma Vocal cord dysfunction Other diseases of vocal cords Secondary pulmonary arterial hypertension Vitamin D deficiency Unspecified vitamin D deficiency Screening for viral disease Special screening examination for unspecified viral disease documented in this encounter [facility]* Diagnosis Lymphadenopathy of head and neck documented in this encounter [facility]* Diagnosis Onset Date Resolution Status Abnormal EKG acute Chest pain acute [facility] Work Phone: Evaluation note* Diagnosis Anterior pleuritic pain- Primary Painful respiration Anxiety Anxiety state, unspecified documented in this encounter [facility]* Diagnosis Onset Date Resolution Status Abnormal EKG resolved Chest pain resolved [facility] Work Phone: Evaluation note* Diagnosis Nausea and vomiting, unspecified vomiting type- Primary RUQ pain Abdominal pain, right upper quadrant Hypokalemia Hypopotassemia Psychophysiological insomnia Persistent disorder of initiating or maintaining sleep Generalized anxiety disorder documented in this encounter [facility]* Diagnosis Onset Date Resolution Status Epigastric abdominal pain ac [place] N&V (nausea and vomiting) [place] RUQ pain acute [facility] Work Phone: Evaluation note* Diagnosis Psychophysiological insomnia Persistent disorder of initiating or maintaining sleep Generalized anxiety disorder [facility] Diagnosis Kidney stone- Primary Calculus of kidney [facility] Diagnosis Onset Date Resolution Status Epigastric abdominal pain [place] N&V (nausea and vomiting) [place] RUQ pain acute Dysautonomia-like disorder [facility] Work Phone: evaluation note* Diagnosis Onset Date Resolution Status Dysautonomia-like disorder a [facility] Work Phone: Evaluation note* Diagnosis Generalized anxiety disorder- Primary Psychophysiological insomnia Persistent disorder of initiating or maintaining sleep Nausea Nausea alone Nightmares Other dysfunctions of sleep stages or arousal from sleep [place] Left hand paresthesia Disturbance of skin sensation [facility] Diagnosis Psychogenic nonepileptic seizure- Primary [facility]* Diagnosis Vaginal candidiasis- Primary Candidiasis of vulva and vagina Psychophysiological insomnia Persistent disorder of initiating or maintaining sleep documented [facility] this encounter [facility]* Diagnosis Psychophysiological insomnia Persistent disorder of initiating or maintaining sleep Generalized anxiety disorder [facility] noteNo assessment information availableWEast [facility] Work Phone: [facility]* Diagnosis Spotting in early - Primary Spotting complicating , antepartum condition or complication [facility] Diagnosis Hypokalemia- Primary Hypopotassemia documented in this encounter [facility] note* Diagnosis Incidental - Primary state, incidental Generalized anxiety disorder Psychophysiological insomnia Persistent disorder of initiating or maintaining sleep documented in this encounter [facility] note* Diagnosis with care elsewhere, antepartum- Primary Supervision of with history of infertility, first trimester Vaginal bleeding in , first trimester Antepartum multigravida of advanced maternal age History of hypertension Personal history of other diseases of circulatory system History of classical section History of placental abruption in prior , currently with other poor reproductive history History of depression History of cervical LEEP biopsy affecting care of mother, antepartum Other congenital or acquired abnormality of cervix, antepartum condition or complication Nausea and vomiting during History of depression/anxiety/insomnia Personal history of other mental disorder History of psychogenic nonepileptic seizure Kidney problem Unspecified disorder of kidney and ureter documented in this encounter [facility] note* Diagnosis Spotting in early Spotting complicating , antepartum condition or complication documented in this encounter [facility] note* Diagnosis Missed - Primary Bleeding in early Unspecified hemorrhage in early , unspecified as to episode of care Screening for malignant neoplasm of cervix Screening for malignant neoplasm of the cervix Special screening examination for human papillomavirus (HPV) documented in this encounter [facility] note* Diagnosis Pelvic pain in female- Primary Unspecified symptom associated with female genital organs Retained products of conception after miscarriage Episode of heavy vaginal bleeding Ovarian cyst, left Other and unspecified ovarian cyst documented in this encounter [facility] note* Diagnosis Pelvic pain in female- Primary Unspecified symptom associated with female genital organs History of miscarriage Personal history of other genital system and obstetric disorders documented in this encounter [facility] note* Diagnosis Endometriosis- Primary Endometriosis, site unspecified Ovarian cyst, left Other and unspecified ovarian cyst Pelvic pain in female Unspecified symptom associated with female genital organs Pain associated with surgical procedure documented in this encounter [facility] note* Diagnosis Ovarian cyst, left Other and unspecified ovarian cyst Pelvic pain in female Unspecified symptom associated with female genital organs documented in this encounter [facility] note* Diagnosis Pelvic pain in female- Primary Unspecified symptom associated with female genital organs Endometriosis Endometriosis, site unspecified Abnormal uterine bleeding (AUB) Preop examination Preoperative examination, unspecified documented in this encounter [facility] note* Diagnosis Abnormal uterine bleeding (AUB)- Primary Pelvic pain in female Unspecified symptom associated with female genital organs [facility] Diagnosis Postoperative state- Primary Other postprocedural status Endometriosis determined by laparoscopy Adenomyosis Endometriosis of uterus S/P JOHN (total abdominal hysterectomy) 03/2023 (age 37) for endometriosis and adenomyosis Acquired absence of both cervix and uterus documented in this encounter [facility] note* Diagnosis VSD (ventricular septal defect)- Primary Ventricular septal defect Generalized anxiety disorder Nausea Nausea alone Chronic bilateral low back pain without sciatica Psychophysiological insomnia Persistent disorder of initiating or maintaining sleep [facility]* Diagnosis Endometriosis- Primary Endometriosis, site unspecified [facility] Diagnosis Acute right flank pain- Primary Abdominal pain, unspecified site documented [facility]* Diagnosis Right flank pain- Primary Abdominal pain, unspecified site documented in [facility] Diagnosis Generalized anxiety disorder- Primary Psychophysiological insomnia Persistent disorder of initiating or maintaining sleep Chronic bilateral low back pain without sciatica Nausea Nausea alone Urinary frequency documented [facility]* Diagnosis Lumbago with sciatica, left side documented in this encounter [facility] Work Phone: Evaluation note* Diagnosis Acute left-sided low back pain with left-sided sciatica- Primary [facility]* Diagnosis Breast lump on left side at 1 o'clock position Lump or mass in breast Breast pain in female Mastodynia documented in this encounter [facility] note* Diagnosis Breast lump on left side at 1 o'clock position Lump or mass in breast Breast pain in female Mastodynia documented in this encounter [facility] note* Diagnosis Seizure- Primary Other convulsions Generalized anxiety disorder Nausea Nausea alone Lumbosacral radiculopathy Thoracic or lumbosacral neuritis or radiculitis, unspecified documented [facility]* Diagnosis Psychogenic nonepileptic seizure- Primary documented [facility]* Diagnosis Acute left-sided low back pain with left-sided sciatica documented in [facility]* Diagnosis Mild intermittent asthma without complication- Primary Unspecified asthma Vocal cord dysfunction Other diseases of vocal cords Secondary pulmonary arterial hypertension Vitamin D deficiency Unspecified vitamin D deficiency Screening for viral disease Special screening examination for unspecified viral disease Chronic kidney disease, stage II (mild)- Primary Chronic kidney disease, Stage II (mild) documented [facility] encounter [facility]* Diagnosis Cellulitis of left foot- Primary [facility] Diagnosis Mild intermittent asthma without complication- Primary Unspecified asthma Vocal cord dysfunction Other diseases of vocal cords Secondary pulmonary arterial hypertension Vitamin D deficiency Unspecified vitamin D deficiency Screening for viral disease Special screening examination for unspecified viral disease Impacted cerumen of right ear- Primary Impacted cerumen Generalized anxiety disorder Nausea Nausea alone Psychophysiological insomnia Persistent disorder of initiating or maintaining sleep documented in this encounter [facility]* Diagnosis Cellulitis of left foot- [facility] Diagnosis Spondylosis of lumbosacral region without myelopathy or radiculopathy documented in this encounter [facility] Work Phone: Evaluation note* Diagnosis Spondylosis of lumbosacral region without myelopathy or radiculopathy Chronic pain syndrome Stage 2 chronic kidney disease documented in this encounter [facility] Work Phone: [phone] note* Diagnosis Spondylosis of lumbosacral region without myelopathy or radiculopathy documented in this encounter [facility] Work Phone: [phone] note* Diagnosis Musculoskeletal pain- Primary Unspecified myalgia and myositis Spondylosis of lumbosacral region without myelopathy or radiculopathy Chronic pain syndrome documented in this encounter [facility] Work Phone: [phone] note* Diagnosis Mild intermittent asthma without complication- Primary Unspecified asthma Vocal cord dysfunction Other diseases of vocal cords Secondary pulmonary arterial hypertension Vitamin D deficiency Unspecified vitamin D deficiency Screening for viral disease Special screening examination for unspecified viral disease Abdominal discomfort in right upper quadrant- Primary Abdominal pain, right upper quadrant Nausea Nausea alone documented in this encounter [facility]* Diagnosis Mild intermittent asthma without complication- Primary Unspecified asthma Vocal cord dysfunction Other diseases of vocal cords Secondary pulmonary arterial hypertension Vitamin D deficiency Unspecified vitamin D deficiency Screening for viral disease Special screening examination for unspecified viral disease Abdominal discomfort in right upper quadrant Abdominal pain, right upper quadrant documented in this encounter [facility]* Diagnosis Spondylosis of lumbosacral region without myelopathy or radiculopathy- Primary Chronic pain syndrome Stage 2 chronic kidney disease documented in this encounter [facility] Work Phone: [phone] note* Diagnosis Spondylosis of lumbosacral region without myelopathy or radiculopathy documented in this encounter [facility] Work Phone: [phone] note* Diagnosis Spondylosis of lumbosacral region without myelopathy or radiculopathy- Primary Chronic pain syndrome documented in this encounter [facility] Work Phone: Evaluation note* Diagnosis Mild intermittent asthma without complication- Primary Unspecified asthma Vocal cord dysfunction Other diseases of vocal cords Secondary pulmonary arterial hypertension Vitamin D deficiency Unspecified vitamin D deficiency Screening for viral disease Special screening examination for unspecified viral disease Chronic kidney disease, stage II (mild)- Primary Chronic kidney disease, Stage II (mild) documented in [facility] encounter [facility] Diagnosis Chronic pain syndrome- Primary Musculoskeletal pain Unspecified myalgia and myositis Spondylosis of lumbosacral region without myelopathy or radiculopathy Stage 2 chronic kidney disease documented in this encounter [facility] Work Phone: Evaluation note* Diagnosis Mild intermittent asthma without complication- Primary Unspecified asthma Vocal cord dysfunction Other diseases of vocal cords Secondary pulmonary arterial hypertension Vitamin D deficiency Unspecified vitamin D deficiency Screening for viral disease Special screening examination for unspecified viral disease Generalized anxiety disorder- Primary Abdominal discomfort in right upper quadrant Abdominal pain, right upper quadrant Psychophysiological insomnia Persistent disorder of initiating or maintaining sleep Nausea Nausea alone Chronic gastritis without bleeding, unspecified gastritis type documented in this encounter [facility]* Diagnosis Chronic pain syndrome Hallucinations Hypokalemia Hypopotassemia Kidney stones Calculus of kidney Migraine without aura, intractable, without status migrainosus Mild intermittent asthma without complication PID (pelvic inflammatory disease) Unspecified inflammatory disease of female pelvic organs and tissues Pseudoseizures Reactive hypoglycemia Hypoglycemia, unspecified Sleep apnea, obstructive Obstructive sleep apnea (adult) (pediatric) Stage 2 chronic kidney disease Transient loss of consciousness Other alteration of consciousness RLS (restless legs syndrome) Restless legs syndrome (RLS) Episode of transient neurologic symptoms Transient loss of consciousness Other alteration of consciousness Sleep apnea, obstructive Obstructive sleep apnea (adult) (pediatric) Mild intermittent asthma without complication Migraine without aura, intractable, without status migrainosus Chronic pain syndrome Stage 2 chronic kidney disease Hypokalemia Hypopotassemia Kidney stones Calculus of kidney RLS (restless legs syndrome) Restless legs syndrome (RLS) PID (pelvic inflammatory disease) Unspecified inflammatory disease of female pelvic organs and tissues Hallucinations Cellulitis of left foot- Primary [facility] Lumbar radiculopathy- Primary Thoracic or lumbosacral neuritis or radiculitis, unspecified Chronic pain syndrome Spondylosis of lumbosacral region without myelopathy or radiculopathy Musculoskeletal pain Unspecified myalgia and myositis documented in this encounter [facility] Work Phone: Evaluation note* Diagnosis Chronic pain syndrome Hallucinations Hypokalemia Hypopotassemia Kidney stones Calculus of kidney Migraine without aura, intractable, without status migrainosus Mild intermittent asthma without complication PID (pelvic inflammatory disease) Unspecified inflammatory disease of female pelvic organs and tissues Pseudoseizures Reactive hypoglycemia Hypoglycemia, unspecified Sleep apnea, obstructive Obstructive sleep apnea (adult) (pediatric) Stage 2 chronic kidney disease Transient loss of consciousness Other alteration of consciousness RLS (restless legs syndrome) Restless legs syndrome (RLS) Episode of transient neurologic symptoms Transient loss of consciousness Other alteration of consciousness Sleep apnea, obstructive Obstructive sleep apnea (adult) (pediatric) Mild intermittent asthma without complication Migraine without aura, intractable, without status migrainosus Chronic pain syndrome Stage 2 chronic kidney disease Hypokalemia Hypopotassemia Kidney stones Calculus of kidney RLS (restless legs syndrome) Restless legs syndrome (RLS) PID (pelvic inflammatory disease) Unspecified inflammatory disease of female pelvic organs and tissues Hallucinations Ingrown nail of great toe of left foot- Primary [facility] Diagnosis Lumbar radiculopathy Thoracic or lumbosacral neuritis or radiculitis, unspecified documented in this encounter [facility] Work Phone: Evaluation note* Diagnosis Lumbar radiculopathy- Primary Thoracic or lumbosacral neuritis or radiculitis, unspecified Spondylosis of lumbosacral region without myelopathy or radiculopathy Chronic pain syndrome Musculoskeletal pain Unspecified myalgia and myositis documented in this encounter [facility] Work Phone: Evaluation note* Diagnosis Radiculopathy, lumbar region Thoracic or lumbosacral neuritis or radiculitis, unspecified Low back pain, unspecified Spondylolisthesis, lumbosacral region documented in this encounter [facility] Work Phone: Evaluation note* Diagnosis Pain Generalized pain [facility] Diagnosis Spinal stenosis- Primary Spinal stenosis, unspecified region other than cervical PONV (postoperative nausea and vomiting) Nausea with vomiting Gastroesophageal reflux disease Esophageal reflux Asthma Unspecified asthma Arthritis Unspecified arthropathy, site unspecified Chronic renal insufficiency Chronic kidney disease, unspecified Sleep apnea Unspecified sleep apnea [facility]* Diagnosis Lumbar radiculopathy- Primary Thoracic or lumbosacral neuritis or radiculitis, unspecified Chronic pain syndrome Spondylosis of lumbosacral region, unspecified spinal osteoarthritis complication status Spondylosis of lumbosacral region without myelopathy or radiculopathy Stage 2 chronic kidney disease documented in this encounter [facility] Work Phone: Evaluation note* Diagnosis Mild intermittent asthma without complication- Primary Unspecified asthma Vocal cord dysfunction Other diseases of vocal cords Secondary pulmonary arterial hypertension Vitamin D deficiency Unspecified vitamin D deficiency Screening for viral disease Special screening examination for unspecified viral disease Generalized anxiety disorder- Primary Abdominal discomfort in right upper quadrant Abdominal pain, right upper quadrant Psychophysiological insomnia Persistent disorder of initiating or maintaining sleep Nausea Nausea alone Chronic gastritis without bleeding, unspecified gastritis type Chronic kidney disease, stage II (mild)- Primary Chronic kidney disease, Stage II (mild) [facility] Diagnosis Mild intermittent asthma without complication- Primary Unspecified asthma Vocal cord dysfunction Other diseases of vocal cords Secondary pulmonary arterial hypertension Vitamin D deficiency Unspecified vitamin D deficiency Screening for viral disease Special screening examination for unspecified viral disease Generalized anxiety disorder- Primary Abdominal discomfort in right upper quadrant Abdominal pain, right upper quadrant Psychophysiological insomnia Persistent disorder of initiating or maintaining sleep Nausea Nausea alone Chronic gastritis without bleeding, unspecified gastritis type Generalized anxiety disorder Nausea Nausea alone Psychophysiological insomnia Persistent disorder of initiating or maintaining sleep [facility] Diagnosis Mild intermittent asthma without complication- Primary Unspecified asthma Vocal cord dysfunction Other diseases of vocal cords Secondary pulmonary arterial hypertension Vitamin D deficiency Unspecified vitamin D deficiency Screening for viral disease Special screening examination for unspecified viral disease Generalized anxiety disorder- Primary Abdominal discomfort in right upper quadrant Abdominal pain, right upper quadrant Psychophysiological insomnia Persistent disorder of initiating or maintaining sleep Nausea Nausea alone Chronic gastritis without bleeding, unspecified gastritis type Chronic kidney disease, stage II (mild) Chronic kidney disease, Stage II (mild) [facility] Diagnosis Arthrodesis status Radiculopathy, lumbar region Thoracic or lumbosacral neuritis or radiculitis, unspecified documented in this encounter [facility] Work Phone: Evaluation note* Diagnosis Pain in right hip documented in this encounter [facility] Work Phone: Evaluation note* Diagnosis Mild intermittent asthma without complication- Primary Unspecified asthma Vocal cord dysfunction Other diseases of vocal cords Secondary pulmonary arterial hypertension Vitamin D deficiency Unspecified vitamin D deficiency Screening for viral disease Special screening examination for unspecified viral disease Generalized anxiety disorder- Primary Abdominal discomfort in right upper quadrant Abdominal pain, right upper quadrant Psychophysiological insomnia Persistent disorder of initiating or maintaining sleep Nausea Nausea alone Chronic gastritis without bleeding, unspecified gastritis type Kidney stone- Primary Calculus of kidney [facility] Instructions* Clara Escobedo RN - 01/07/2021 Images from the original note were not included. Stillbirth and Infant Loss ( Delivery): Care Instructions Overview The loss of a baby can be very hard. You may wonder why it happened. A loss can happen even in a that had been going well. In the weeks to come, try to take care of your physical and emotional needs. Take care of yourself in whatever way feels best. After a section, or , you may have some pain in your lower belly. You may need pain medicine for 1 to 2 weeks. You can expect some vaginal bleeding for several weeks. You will probably need about 6 weeks for the pain to go away completely. It's important to take it easy while the cut (incision) heals. While you recover, avoid heavy lifting, strenuous activities, and exercises that strain the belly muscles. Ask a family member or friendfor help with housework, cooking, and shopping. Follow-up care is a ayala part of your treatment and safety. Be sure to make and go to all appointments, and call your doctor if you are having problems. It's also a good idea to know your test resultsand keep a list of the medicines you take. How can you care for yourself at home? Taking care of your body Rest when you feel tired. Getting enough sleep will help you recover. Try to walk each day. Start by walking a little more than you did the day before. Bit by bit, increase the amount you walk. Walking boosts blood flow and helps prevent pneumonia, constipation, and blood clots. Avoid strenuous activities, such as bicycle riding, jogging, weightlifting, and aerobic exercise, for 6 weeks or until your doctor says it is okay. Until your doctor says it is okay, avoid heavy lifting. Do not do sit-ups or other exercises that strain the belly muscles for 6 weeks or until your doctorsays it is okay. Hold a pillow over your incision when you cough or take deep breaths. This will support your belly and decrease your pain. If you have strips of tape on the incision, leave the tape on for a week or until it falls off. Keep the incision clean and dry. You may shower as usual. Pat the incision dry when you are done. You will have some vaginal bleeding. Use sanitary pads until you stop bleeding. Using pads makes iteasier to monitor your bleeding. Do not rinse your vagina with fluid (douche). Talk to your doctor about how to ease discomfort from your milk coming in. It can take days to a few weeks for your milk to dry up. Ask your doctor when you can drive again. You will probably need to take at least 6 weeks off work. It depends on the type of work you do andhow you feel. Ask your doctor when it is okay for you to have sex. Some women want to try to get again. Your doctor can tell you when it is safe. Diet You can eat your normal diet. If your stomach is upset, try bland, low-fat foods like plain rice, broiled chicken, toast, and yogurt. Drink plenty of fluids (unless your doctor tells you not to). You may notice that your bowel movements are not regular right after your surgery. This is common. Try to avoid constipation and straining with bowel movements. You may want to take a fiber supplement every day. If you have not had a bowel movement after a couple of days, ask your doctor about taking a mild laxative. Medicines Your doctor will tell you if and when you can restart your medicines. You will also get instructions about taking any new medicines. If you take aspirin or some other blood thinner, ask your doctor if and when to start taking it again. Make sure that you understand exactly what your doctor wants you to do. Take pain medicines exactly as directed. ? If the doctor gave you a prescription medicine for pain, take it as prescribed. ? If you are not taking a prescription pain medicine, ask your doctor if you can take an nmpy-phb-oqqtdoq medicine. If you think your pain medicine is making you sick to your stomach: ? Take your medicine after meals (unless your doctor has told you not to). ? Ask your doctor for a different pain medicine. If your doctor prescribed antibiotics, take them as directed. Do not stop taking them just because you feel better. You need to take the full course of antibiotics. Dealing with your grief Rest whenever you can. Being tired makes it harder to handle your emotions. Tell your family and friends what they can do. You may want to spend time alone, or you may seek the comfort of family and friends. Try to eat healthy foods, get some sleep, and get exercise (or just get out of the house) to help you feel strong as you heal. Talk to your doctor about how you are coping. The doctor will want to watch you for signs of depression. You may want to have counseling for support and to help you express your feelings. Think about making a memory book of your and baby. Many parents want to take pictures andkeep a lock of hair. The hospital may take photos or footprints for you. If you can, try to talk to others who have gone through this loss. You can make connections online or in person. Here are some organizations that can help: ? The [employer]: Go to www.compassionatefriends.org for this resource for people who have lost a child. The group can help put you in touch with one of its support groups in your area. ? [employer]): This group at www.[employer].org can offer advice and connections to others who have lost a child. ? The [employer] Stillbirth [employer]: This group at www.stillbirthalliance.org offers information and resources. When should you call for help? Call 911 anytime you think you may need emergency care. For example, call if: You have thoughts of harming yourself or another person. You passed out (lost consciousness). You have chest pain, are short of breath, or cough up blood. You have a seizure. Call your doctor now or seek immediate medical care if: You have pain that does not get better after you take pain medicine. You have severe vaginal bleeding. You are dizzy or lightheaded, or you feel like you may faint. You have new or worse pain in your belly or pelvis. You have loose stitches, or your incision comes open. You have symptoms of infection, such as: ? Increased pain, swelling, warmth, or redness. ? Red streaks leading from the incision. ? Pus draining from the incision. ? A fever. You have symptoms of a blood clot in your leg (called a deep vein thrombosis), such as: ? Pain in your calf, back of the knee, thigh, or groin. ? Redness and swelling in your leg or groin. You have signs of preeclampsia, such as: ? Sudden swelling of your face, hands, or feet. ? New vision problems (such as dimness, blurring, or seeing spots). ? A severe headache. Watch closely for changes in your health, and be sure to contact your doctor if: You feel so sad, anxious, or hopeless that you aren't able to manage daily activities. Where can you learn more? Go to [email or web address] and sign in to your [employer] account. Enter S270 in the Search Health Information box to learn more about Stillbirth and Loss ( Delivery):Care Instructions. If you do not have an account, please click on the Sign Up Now link. Current as of: August 01, 2020 Content Version: 13.0 [employer]. Care instructions adapted under license by [employer]. If you have questions about a medical condition or this instruction, always ask your healthcare professional. [employer] disclaims any warranty or liability for your use of this information. Depression After Childbirth: Care Instructions Overview Many women get the baby blues during the first few days after childbirth. You may lose sleep, feel irritable, and cry easily. You may feel happy one minute and sad the next. Hormone changes are onecause of these emotional changes. The baby blues often peak around the fourth day. Then they easeup in less than 2 weeks. If your moodiness or anxiety lasts for more than 2 weeks, or if you feel like life is not worth living, you may have depression. This is different for each person. Some may have signs of paranoia, wondering if someone is watching them. Depression is not a sign of weakness. It's a medical condition that requires treatment. Medicine and counseling often work well to reduce depression. Talk to your doctor about taking antidepressant medicine. Follow-up care is a ayala part of your treatment and safety. Be sure to make and go to all appointments, and call your doctor if you are having problems. It's also a good idea to know your test resultsand keep a list of the medicines you take. How do you know if you are depressed? With all the changes in your life, you may not know if you are depressed. sometimes causes changes in how you feel that are similar to the symptoms of depression. Symptoms of depression include: Feeling sad or hopeless and losing interest in daily activities. These are the most common symptomsof depression. Sleeping too much or not enough. Feeling tired. You may feel as if you have no energy. Eating too much or too little. Writing or talking about , such as writing suicide notes or talking about guns, knives, or pills. Keep the numbers for these national suicide hotlines: 2-342-160-TALK ( ) and 4-280-QPNMSCM ( ). If you or someone you know talks about suicide or feeling hopeless, get help right away. How can you care for yourself at home? Be safe with medicines. Take your medicines exactly as prescribed. Call your doctor if you think you are having a problem with your medicine. Eat a healthy diet so that you can keep up your energy. Get regular daily exercise, such as walks, to help improve your mood. Get as much sunlight as possible. Keep your shades and curtains open. Get outside as much as you can. Avoid using alcohol or other substances to feel better. Get as much rest and sleep as possible. Avoid doing too much. Being too tired can increase depression. Play stimulating music throughout your day and soothing music at night. Schedule outings and visits with friends and family. Ask them to call you regularly, so that you don't feel alone. Ask for help with preparing food and other daily tasks. Family and friends are often happy to help with a . Be honest with yourself and those who care about you. Tell them about your struggle. Join a support group If you feel like life is not worth living or you're feeling hopeless, get help right away. Keep thenumbers for these national suicide hotlines: 0-137-484-TALK ( ) and 2-746-GJUCLUY ( ). When should you call for help? Call 911 anytime you think you may need emergency care. For example, call if: You feel you cannot stop from hurting yourself, your baby, or someone else. Call your doctor now or seek immediate medical care if: You are having trouble caring for yourself or your baby. You hear voices. Watch closely for changes in your health, and be sure to contact your doctor if: You have problems with your depression medicine. You do not get better as expected. Where can you learn more? Go to [email or web address] and sign in to your [employer] account. Enter Y765 in the Search Health Information box to learn more about Depression After Childbirth: Care Instructions. If you do not have an account, please click on the Sign Up Now link. Current as of: August 01, 2020 Content Version: 13.0 [employer]. Care instructions adapted under license by [employer]. If you have questions about a medical condition or this instruction, always ask your healthcare professional. [employer] disclaims any warranty or liability for your use of this information. [facility] Additional Instructions Follow-up with your [facility]. Return for any worsening symptoms.[facility] Work Phone: Hospital Discharge instructions* Attachments The following attachments cannot be sent through Care Everywhere. * DVT (Deep Vein Thrombosis): Prevention: General Info (Swiss) * Incentive Spirometer: General Info (Swiss) * Fall Prevention (Swiss) * Opioids: General Info (Swiss) * Constipation (Swiss) [facility] Additional Instructions Thank you for trusting us with your care today! Your labs images were reassuring. No sign of bony abnormality, postop changes or intra-abdominal pathology specifically a hernia. Please take Tylenol (2 pills, 650 mg), ibuprofen (2 pills, 400 mg) every 6 hours as needed for pain and fever control. Please continue taking Percocet as prescribed Please return to the emergency department if your symptoms change or worsen. Please follow with your primary care physician and/or operating surgeon for further outpatient evaluation and management.[facility] Work Phone: Hospital Discharge instructionsAdditional Instructions [phone]. Return with worsening symptoms or any concerns. Take antibiotics as prescribed.[facility] Work Phone: Reason for referral (narrative)* Consultation (Urgent) - New Request Specialty Diagnoses / Procedures Referred By Bel mike Referred To Contact Otolaryngology Diagnoses Vocal cord dysfunction Dale Sofia MD [address] [place] [address] Alexander Agustin MD [address] [place] [address] Referral ID Status Reason Start Date Expiration Date V isits Requested Visits Authorized [id number] New Request 09/10/2020 10/05/2021 1 1 * Radiology (Routine) - Authorized Specialty Diagnoses / Procedures Referred By Bel t Referred To Contact Diagnoses Secondary pulmonary arterial hypertension Procedures ECHOCARDIOGRAM AZ ECHO HEART XTHORACIC,COMPLETE W DOPPLER Dale Sofia MD [address] [place] [address] Referral ID Status Reason Start Date Expiration Date V isits Requested Visits Authorized [id number] Authorized 09/10/2020 10/05/2021 1 1 * Pulmonary Rehabilitation (Routine) - Auth Not Needed Specialty Diagnoses / Procedures Referred By Contac t Referred To Contact Diagnoses Moderate persistent asthma without complication Mild intermittent asthma without complication Procedures PFT COMPLETE Dale Sofia MD [address] [place] [address] Referral ID Status Reason Start Date Expiration Date V isits Requested Visits Authorized [id number] Auth Not Needed 09/10/2020 10/05/2021 1 1 * Pulmonary Rehabilitation (Routine) - Auth Not Needed Specialty Diagnoses / Procedures Referred By Contac t Referred To Contact Diagnoses Moderate persistent asthma without complication Mild intermittent asthma without complication Procedures EXERCISE-6 MIN. WALK Dale Sofia MD [address] [place] [address] Referral ID Status Reason Start Date Expiration Date V isits Requested Visits Authorized [id number] Auth Not Needed 09/10/2020 10/05/2021 1 1 [facility] for referral (narrative)* Consultation (Routine) - New Request Specialty Diagnoses / Procedures Referred By Contac t Referred To Contact Endocrinology, Diabetes & Metabolism Diagnoses Hypokalemia Winsome Cuevas APRN-DECK MECHANIC [address] [place] [address] Kaveh Wetzel MD [address] [place] [address] Referral ID Status Reason Start Date Expiration Date V isits Requested Visits Authorized [id number] New Request 10/07/2021 11/01/2022 1 1 * Consultation (Routine) - Open Specialty Diagnoses / Procedures Referred By Contac t Referred To Contact General Surgery Diagnoses Nausea and vomiting, unspecified vomiting type RUQ pain Winsome Cuevas APRN-DECK MECHANIC [address] [place] [address] Tigist Blanco MD [address] [phone] Referral ID Status Reason Start Date Expiration Date Visits Re quested Visits Authorized [id number] Open 10/07/2021 11/01/2022 1 1 * Radiology (Routine) - Auth Not Needed Specialty Diagnoses / Procedures Referred By Contac t Referred To Contact Diagnoses Nausea and vomiting, unspecified vomiting type Procedures NUC HEPATOBILIARY WITH EJECTION FRACTION [place] HEPATOBIL SYST IMAG INC GB W/PHARMA INTERVENJ Winsome Cuevas APRN-DORETHA [address] [place] [address] Referral ID Status Reason Start Date Expiration Date V isits Requested Visits Authorized [id number] Auth Not Needed 10/07/2021 11/01/2022 1 1 [facility] Diagnostic Procedure Only (Routine) - Authorized Specialty Diagnoses / Procedures Referred By Contac t Referred To Contact [facility] Diagnoses Spotting in early Procedures OBSTETRIC ULTRASOUND WHI US PREG UTERUS AFTER 1ST TRIMEST GESTATION Charlotte Garcia MD [address] [facility] [place] [address] [facility] [address] [place] [address] Referral ID Status Reason Start Date Expiration Date Visits Requested Visits Authorized [id number] Authorized Auto-Generat ed Referral 11/10/2022 02/15/2023 1 1 [facility] for referral (narrative)* Diagnostic Procedure Only (Routine) - Closed Specialty Diagnoses / Procedures Referred By Contac t Referred To Contact US IMAGING Diagnoses Ovarian cyst, left Pelvic pain in female Procedures US FEMALE PELVIS TRANSVAG US TRANSVAGINAL Colleen Major MD [address] [place] [address] [place] [address] Referral ID Status Reason Start Date Expiration Date V isits Requested Visits Authorized [id number] Closed Auto-Generate d Referral 12/09/2022 01/08/2024 1 1 [facility] for referral (narrative)* Consultation (Routine) - New Request Specialty Diagnoses / Procedures Referred By Contact Referred To Contact Cardiovascular Disease / Cardiovascular Medicine Diagnoses VSD (ventricular septal defect) Winsome Cuevas APRN-DECK MECHANIC [address] [place] [phone] Loc Ramos II, MD [address] [place] [address] Referral ID Status Reason Start Date Expiration Date V isits Requested Visits Authorized [id number] New Request 04/22/2023 05/16/2024 1 1 Scheduling Instructions . [facility] for referral (narrative)* Consultation (Urgent) - New Request Specialty Diagnoses / Procedures Referred By Bel mike Referred To Contact Family Medicine Diagnoses Right flank pain Rhys Conn MD [address] [place] [phone] Winsome Cuevas, CAR SWEEPER-DECK MECHANIC [address] [place] [phone] Referral ID Status Reason Start Date Expiration Date V isits Requested Visits Authorized [id number] New Request 06/10/2023 07/04/2024 1 1 * Consultation (Urgent) - New Request Specialty Diagnoses / Procedures Referred By Contac t Referred To Contact Nephrology Diagnoses Right flank pain Rhys Conn MD [address] [place] [address] Timmy Mariano MD [address] [place] [address] Referral ID Status Reason Start Date Expiration Date V isits Requested Visits Authorized [id number] New Request 06/10/2023 07/04/2024 1 1 [facility] for referral (narrative)* Diagnostic Procedure Only (Routine) - Closed Specialty Diagnoses / Procedures Referred By Contac t Referred To Contact BR IMAGING Diagnoses Breast lump on left side at 1 o'clock position Breast pain in female Procedures US BREAST LTD LEFT US BREAST UNI REAL TIME WITH IMAGE LIMITED Wilfrid Champion APRN.CNM [address] [place] [address] [facility] [address] [place] [address] Referral ID Status Reason Start Date Expiration Date V isits Requested Visits Authorized [id number] Closed Auto-Generate d Referral 08/03/2023 09/01/2024 1 1 [facility] for referral (narrative)* Procedure (Routine) - Pending Review Specialty Diagnoses / Procedures Referred By Contac t Referred To Contact Pain Medicine Diagnoses Spondylosis of lumbosacral region without myelopathy or radiculopathy Procedures Radiofrequency Ablation AZ DSTR NROLYTC AGNT PARVERTEB FCT ADDL LMBR/SACRAL AZ DSTR NROLYTC AGNT PARVERTEB FCT SNGL LMBR/SACRAL Ivelisse Gaston, CAR SWEEPER-DECK MECHANIC [address] [place] [place] [address] Stef Maki, DO [address] [place] [address] Referral ID Status Reason Start Date Expiration Date Visits Requested Visits Authorized [id number] Pending Review Perform Procedure 4 11/29/2024 1 1 * Imaging (Routine) - Authorized Specialty Diagnoses / Procedures Referred By Contac t Referred To Contact Radiology Diagnoses Spondylosis of lumbosacral region without myelopathy or radiculopathy Procedures FL pain management Ivelisse Gaston, CAR SWEEPER-DECK MECHANIC [address] [place] [phone] Referral ID Status Reason Start Date Expiration Date Visits Requested Visits Authorized [id number] Authorized Perform Procedure 4 11/29/2024 1 1 [facility] Work Phone: Reason for referral (narrative)* Consultation (Routine) - Closed Specialty Diagnoses / Procedures Referred By Contac t Referred To Contact Gastroenterology Diagnoses Abdominal discomfort in right upper quadrant Nausea Winsome Cuevas APRN-DECK MECHANIC [address] [place] [address] [facility] Other [address] [place] [address] Referral ID Status Reason Start Date Expiration Date Visits Re quested Visits Authorized [id number] Closed 01/28/2024 02/21/2025 1 1 * Radiology (Routine) - Authorized Specialty Diagnoses / Procedures Referred By Contac t Referred To Contact Diagnoses Abdominal discomfort in right upper quadrant Procedures US ABDOMEN RUQ/LIVER/GB Winsome Cuevas APRN-DECK MECHANIC [address] [place] [address] Referral ID Status Reason Start Date Expiration Date V isits Requested Visits Authorized [id number] Authorized 01/27/2024 02/20/2025 1 1 [facility] for referral (narrative)No reason for referral [facility]: Reason for visit Narrative* Diagnostic Procedure Only (Routine) - Closed Specialty Diagnoses / Procedures Referred By Contac t Referred To Contact BR IMAGING Diagnoses Breast lump on left side at 1 o'clock position Breast pain in female Procedures US BREAST LTD LEFT US BREAST UNI REAL TIME WITH IMAGE LIMITED Wilfrid Champion APRN.CN [address] [place] [address] [facility] [address] [place] [phone] Referral ID Status Reason Start Date Expiration Date V isits Requested Visits Authorized [id number] Closed Auto-Generate d Referral 08/03/2023 09/01/2024 1 1 [facility] for visit Narrative* Diagnostic Procedure Only (Routine) - Closed Specialty Diagnoses / Procedures Referred By Silverioac t Referred To Contact BR IMAGING Diagnoses Breast lump on left side at 1 o'clock position Breast pain in female Procedures COSMO DIAGNOSTIC LEFT DIAGNOSTIC MAMMOGRAPHY COMPUTER-AIDED DETCJ UNI Wilfrid Champion APRN.[facility] [address] [place] [address] [facility] [address] [place] [address] Referral ID Status Reason Start Date Expiration Date V isits Requested Visits Authorized [id number] Closed Auto-Generate d Referral 08/03/2023 09/01/2024 1 1 [facility] for visit Narrative* Procedure (Routine) - Authorized Specialty Diagnoses / Procedures Referred By Contac t Referred To Contact Pain Medicine / Procedural Diagnoses Spondylosis of lumbosacral region without myelopathy or radiculopathy Procedures Radiofrequency Ablation AZ DSTR NROLYTC AGNT PARVERTEB FCT ADDL LMBR/SACRAL AZ DSTR NROLYTC AGNT PARVERTEB FCT SNGL LMBR/SACRAL Ivelisse Gaston, CAR SWEEPER-DECK MECHANIC [address] [place] [address] Phone: tel: fax: [facility] [place] [address] [place] [phone] fax: Referral ID Status Reason Start Date Expiration Date Visits Requested Visits Authorized [id number] Authorized Perform Procedure 4 11/29/2024 1 1 [facility] Work Phone: Recfau for visit Narrative* Imaging (Routine) - Authorized Specialty Diagnoses / Procedures Referred By Contac t Referred To Contact Radiology Diagnoses Lumbar radiculopathy Procedures MR lumbar spine wo IV contrast Mesha Garcia PA-C [address] [place] [address] Phone: tel: fax: [address] [address] Phone: tel: fax: Referral ID Status Reason Start Date Expiration Date Visits Requested Visits Authorized [id number] Authorized Perform Procedure 05/18/2024 05/18/2025 1 1 [facility] Work Phone: reason for visit Narrative* Imaging (Routine) - Authorized Specialty Diagnoses / Procedures Referred By Contac t Referred To Contact Radiology Diagnoses Radiculopathy, lumbar region Low back pain, unspecified Spondylolisthesis, lumbosacral region Procedures CT lumbar spine wo IV contrast Zuleima Thomas, DO [address] [place] [address] Phone: tel: fax: Referral ID Status Reason Start Date Expiration Date Visits Requested Visits Authorized [id number] Authorized Perform Procedure 06/14/2024 06/14/2025 1 1 [facility] Work Phone: reason for visit Narrative* Auth/Cert (Routine) Specialty Diagnoses / Procedures Referred By Contac t Referred To Contact Diagnoses Spondylolisthesis, lumbosacral region Radiculopathy, lumbar region Low back pain Other intervertebral disc displacement, lumbar region M43.17 M54.16 M54.5 M51.26 Procedures AZ ARTHRDS ANT I-B TECH INCL MINIMAL DISCECTOMY TO PREPARE INTERSPACE LUMB AZ INS I-B BIOMECH DEV TO IV DISC SPACE CONJ W/I-B ARTHRDS EA INTERSPACE AZ INSTRUMENTATION ANTERIOR 2-3 VERTEBRAL SEGMENTS AZ ALLOGRAFT MORSELIZED/PLACEMENT OSTEOPROMOTIVE MAT SPINE SURGERY ONLY L5-S1 Anterior lumbar interbody fusion Zuleima Thomas DO [address] [place] [address] Phone: tel: fax: [facility] [address] [place] [address] Phone: tel: Referral ID Status Reason Start Date Expiration Date Visits Re quested Visits Authorized [id number] 1 1 [facility] for visit Narrative* Radiology (Routine) - Closed Specialty Diagnoses / Procedures Referred By Bel t Referred To Contact Ultrasound Diagnoses Chronic kidney disease, stage II (mild) Procedures US RENAL RETROPERITONEAL Timmy Mariano MD [address] [place] [address] Phone: tel: fax: [facility] Ultrasound [address] [place] [address] Phone: tel: fax: Referral ID Status Reason Start Date Expiration Date Visits Re quested Visits Authorized [id number] Closed 08/03/2024 08/28/2025 1 1 [facility] for visit Narrative* Imaging (Emergency) - Authorized Specialty Diagnoses / Procedures Referred By Bel t Referred To Contact Radiology Diagnoses Arthrodesis status Radiculopathy, lumbar region Procedures MR lumbar spine w and wo IV contrast CHG MRI SPINAL CANAL LUMBAR W/O & W/CONTR Zuleima Kuhn DO [address] [place] [address] Phone: tel: fax: Referral ID Status Reason Start Date Expiration Date Visits Requested Visits Authorized [id number] Authorized Perform Procedure 09/18/2024 09/18/2025 1 1 [facility] Work Phone: Reason for visit Narrative* Imaging (Routine) - Authorized Specialty Diagnoses / Procedures Referred By Bel mike Referred To Contact Radiology Diagnoses Pain in right hip Procedures MR hip right wo IV contrast Zuleima Thomas, DO [address] [facility] [address] [place] [address] Phone: tel: fax: Referral ID Status Reason Start Date Expiration Date Visits Requested Visits Authorized [id number] Authorized Perform Procedure 09/23/2024 09/23/2025 1 1 [facility] Work Phone: Summary Purpose Family History No Family History Records Found Father Name Dates Details Family history of hypertensi on(V17.49, Z82.49) Status:Active Family history of cerebrovas cular accident (CVA)(V17.1, Z82.3) Status:Active Family history of hyperlipid emia(V18.19, Z83.438) Status:Active Father Name Dates Details Family history of hypertensi on(V17.49, Z82.49) Status:Active Family history of cerebrovas cular accident (CVA)(V17.1, Z82.3) Status:Active Family history of hyperlipid emia(V18.19, Z83.438) Status:Active Father Name Dates Details Family history of hypertensi on(V17.49, Z82.49) Status:Active Family history of cerebrovas cular accident (CVA)(V17.1, Z82.3) Status:Active Family history of hyperlipid emia(V18.19, Z83.438) Status:Active Father Name Dates Details Family history of hypertensi on(V17.49, Z82.49) Status:Active Family history of cerebrovas cular accident (CVA)(V17.1, Z82.3) Status:Active Family history of hyperlipid emia(V18.19, Z83.438) Status:Active Father Name Dates Details Family history of hypertensi on(V17.49, Z82.49) Status:Active Family history of cerebrovas cular accident (CVA)(V17.1, Z82.3) Status:Active Family history of hyperlipid emia(V18.19, Z83.438) Status:Active Father Name Dates Details Family history of hypertensi on(V17.49, Z82.49) Status:Active Family history of cerebrovas cular accident (CVA)(V17.1, Z82.3) Status:Active Family history of hyperlipid emia(V18.19, Z83.438) Status:Active Father Name Dates Details Family history of hypertensi on(V17.49, Z82.49) Status:Active Family history of cerebrovas cular accident (CVA)(V17.1, Z82.3) Status:Active Family history of hyperlipid emia(V18.19, Z83.438) Status:Active Relationship Condition Age at Onset Recorded Date/T cynthia father No cardiac disease Unknown mother No cardiac disease Unknown Relationship Condition Age at Onset Recorded Date/T cynthia Not Specified Malignant neoplasm of cervix Unknown Disorder of intestine Unknown Diabetes mellitus Unknown Suicidal ideation Unknown High blood cholesterol Unknown Arthritis Unknown Depression Unknown Malignant neoplasm of breast Unknown Seizure Unknown Hypertension Unknown Venous thrombosis Unknown Cerebrovascular accident (CVA) Unknown Asthma Unknown father No cardiac disease Unknown mother No cardiac disease Unknown Advance Directives No Advanced Directives Records FoundLatest Code Status on File Code Status Date Activated Date Inactivated Comments Full Code - Unverified 04/22/2018 9:31 AM Healthcare Agents on File Name Relationship Healthcare Agent [facility] p Phone liz dukes Other Primary healthcare agent No,Contact Primary healthcare agent [phone] Documents on File Type Date Recorded Patient Regulatory Agency Director Expl anation Advance Directives and Livin g Will 07/13/2020 12:00 AM Latest Code Status on File Code Status Date Activated Date Inactivated Comments Full Code 07/13/2020 4:35 PM 07/18/2020 4:24 PM Full Code - Unverified 04/22/2018 9:31 AM 07/13/2020 2:16 PM Healthcare Agents on File Name Relationship Healthcare Agent Relationshi p Communication Hunter Salazar Other Health Care Agent Healthcare Agents on File Name Relationship Healthcare Agent Relationshi p Communication Hunter Salazar Other Health Care Agent Latest Code Status on File Code Status Date Activated Date Inactivated Comments Full Code 01/05/2021 6:12 PM Full Code 01/05/2021 6:11 PM 01/05/2021 6:12 PM Full Code 01/02/2021 7:37 PM 01/05/2021 6:11 PM Full Code 01/01/2021 3:52 AM 01/02/2021 7:37 PM Documents on File Type Date Recorded Patient Regulatory Agency Director Expl anation Advance Directives/Living Will 09/19/2016 9:36 AM Advance Directive Response Recorded Date/ Time Advance Directives No May 18 8:17am Living Will No June 06, 2021 7:28pm Power of Marriage And Family Social Worker No June 06 7:28pm Advance Directive Response Recorded Date/ Time Advance Directives No May 18 8:17am Living Will No August 27, 2021 8:54am Power of Marriage And Family Social Worker No August 27 8:54am Advance Directive Response Recorded Date/ Time Advance Directives No May 18 8:17am Living Will No October 20 6:19pm Power of Marriage And Family Social Worker No October 20, 2021 6:19pm Advance Directive Response Recorded Date/ Time Advance Directives No May 18 8:17am Living Will No October 22 10:51am Power of Marriage And Family Social Worker No October 22, 2021 10:51am Advance Directive Response Recorded Date/ Time Advance Directives No May 18 8:17am Living Will No October 25 8:07pm Power of Marriage And Family Social Worker No October 25, 2021 8:07pm Advance Directive Response Recorded Date/ Time Advance Directives No May 18 7:17am Living Will No January 06 7:07am Power of Marriage And Family Social Worker No January 06, 2022 7:07am Advance Directive Response Recorded Date/ Time Advance Directives No May 18 7:17am Living Will No February 24 11:10am Power of Marriage And Family Social Worker No February 24 023 11:10am Advance Directive Response Recorded Date/ Time Advance Directives No May 18 7:17am Living Will No March 10 9:13am Power of Marriage And Family Social Worker No March 10, 2022 9:13am Latest Code Status on File Code Status Date Activated Date Inactivated Comments Full Code 07/02/2022 4:08 PM Advance Directive Response Recorded Date/ Time Advance Directives No May 18 8:17am Living Will No March 10 10:13am Power of Marriage And Family Social Worker No March 10, 2022 10:13am Advance Directive Response Recorded Date/ Time Advance Directives No May 18 8:17am Living Will No August 18, 2022 9 :59am Power of Marriage And Family Social Worker No August 18, 2022 9:59am Advance Directive Response Recorded Date/ Time Name of Medical Power of Marriage And Family Social Worker mother September 19, 2022 3:06pm Advance Directives No May 18 8:17am Living Will Yes September 19, 2022 3:06pm Power of Marriage And Family Social Worker Yes September 19 3:06pm Advance Directive Response Recorded Date/ Time Name of Medical Power of Marriage And Family Social Worker mother September 19, 2022 3:06pm Advance Directives No May 18 8:17am Living Will No November 09, 2022 4:40pm Power of Marriage And Family Social Worker No October 4:40pm Advance Directive Response Recorded Date/ Time Name of Medical Power of Marriage And Family Social Worker mother September 19, 2022 3:06pm Advance Directives No May 18 8:17am Living Will No November 25 11:46am Power of Marriage And Family Social Worker No 2022 11:46am Advance Directive Response Recorded Date/ Time Name of Medical Power of Marriage And Family Social Worker mother September 19, 2022 3:06pm Advance Directives No May 18 8:17am Living Will No December 15 10:04am Power of Marriage And Family Social Worker No December 15, 2022 10:04am Latest Code Status on File Code Status Date Activated Date Inactivated Comments Full Code 07/02/2022 4:08 PM Advance Directive Response Recorded Date/ Time Advance Directives No May 18 8:17am Living Will No May 01, 2023 2:28pm Power of Marriage And Family Social Worker No April 30 2:28pm Date Activated Date Inactivated Comments 07/02/2022 4:08 PM Date Activated Date Inactivated Comments 07/02/2022 4:08 PM Date Activated Date Inactivated Comments 07/13/2020 4:35 PM 07/18/2020 4:24 PM Date Activated Date Inactivated Comments 04/22/2018 9:31 AM 07/13/2020 2:16 PM Date Activated Date Inactivated Comments 06/23/2024 8:44 AM This is order i s used when code status has not been discussed with the patient, or code status is otherwise unknown/unconfirmed To update the patient's code status, place a code status order. Do not modify or discontinue any currently active code status orders. Date Activated Date Inactivated Comments 06/23/2024 8:44 AM 06/24/2024 2:52 PM This is order is used when code status has not been discussed with the patient, or code status is otherwise unknown/unconfirmed To update the patient's code status, place a code status order. Do not modify or discontinue any currently active code status orders. Advance Directive Response Recorded Date/ Time Living Will No April 04 10:19am Do you have a Healthcare Power of Marriage And Family Social Worker? No April 04, 2024 10:19am Living Will No March 10 2:50am Do you have a Healthcare Power of Marriage And Family Social Worker? No March 10, 2024 2:50am Do you have a Healthcare Power of Marriage And Family Social Worker? No June 27, 2024 7:25pm Advance Directives No May 18 8:17am Advance Directive Response Recorded Date/ Time Do you have a Healthcare Power of Marriage And Family Social Worker? No August 24, 2024 11:16am Do you have a Healthcare Power of Marriage And Family Social Worker? No June 27, 2024 7:25pm Advance Directives No May 18 8:17am Hospital Course * Radha Mathew, - 04/26/2018 2:00 PM EDT DISCHARGE SUMMARY Patient: Kendall Daniel Date of : 1985 Site: [facility] Family Provider: Lorin Maki MD Admit Date: 04/22/2018 Discharge Date/Time: 04/26/18 1740 Disposition: Home Clinical Summary Hospital Course: Kendall Daniel is a 32 y.o. female patient of Lorin Maki MD with a history of has a past medical history of Asthma, Chronic kidney disease, Hypoglycemia, Kidney stones, Migraine, RLS (restless legs syndrome), chronic pain, and Sleep apnea as well as events of concern for seizures versus psy chogenic non epileptic events . Discharge Diagnoses: Transient loss of consciousness Assessment & Plan Events of concern for seizures. 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 One event was captured with unresponsiveness and writhing. This is non epileptic. The patient was educated regarding this We discussed PNES and that she did not have a convulsive event However I felt based on this data that her events are PNES and we should work on a different approach to treatment. I gave her education on conversion and suggest therapy evaluation and CBT techniques. I have given her a few. We discussed chronic pain, and PTSD and pyschiatry services can help her learn coping skills. She can return to work but shouldn't drive until cleared by her referring neurologist. She was very concerned about stopping keppra. We discussed stopping keppra in follow up after discussing with her primary neurologist Plan of care for patient's admission is as follows: --Provocation of target spells via: --Elimination of Anticonvulsant medications --NO Hyperventilation --BID Photic Stimulation --Intermittent Sleep Deprivation --Tapered AED's: Date Home AED #1: Keppra Home Dose: 500 mg bid Home AED #2: Ativan Home Dose: 0.5 mg prn Home AED #3: Gabapentin (takes for migraines and pain) Home Dose: 300 mg tid 04/22/2018 Discontinued, last dose this morning Discontinued, last Ativan dose last week. Continued, last dose this morning. 04/26 Night home dosing resume home Resume home - Sleep apnea, obstructive Assessment & Plan -Reports mild, does not use ROSA device. Migraine without aura, intractable, without status migrainosus Assessment & Plan -Reports has improved with Gabapentin. Occurrs every few months. -No OCHOA currrently. -Tylenol prn ordered. -Continued Gabapentin and is on Tizanidine for anxiety. Hypokalemia Assessment & Plan -pRN replacement Stage 2 chronic kidney disease Assessment & Plan -Reports has Stage 2 Kidney Disease . Chronic pain syndrome Assessment & Plan -Follows with roof painter. Difficulty coping with pain cEEG 04/22-04/26 -normal awake and sleep Allergies: Tramadol; Codeine; Flagyl [metronidazole]; Shrimp; Topamax [topiramate]; and Adhesive tape-silicones Discharge Diet: normal Condition: Good Discharge Medications: Current Discharge Medication List CONTINUE these medications which have NOT CHANGED Details chlorthalidone (HYGROTEN) 25 MG tablet Take 25 mg by mouth daily . dicyclomine (BENTYL) 10 MG capsule Take 10 mg by mouth 4 (four) times a day as needed . gabapentin (NEURONTIN) 100 MG capsule Take 300 mg by mouth 3 (three) times a day Reasons: one to two pills nightly. ibuprofen (ADVIL,MOTRIN) 600 MG tablet Take 600 mg by mouth every 6 (six) hours as needed for pain. levETIRAcetam (KEPPRA) 500 MG tablet Take 500 mg by mouth 2 (two) times a day . LORazepam (ATIVAN) 0.5 MG tablet Take 1 (one) tablet (0.5 mg total) by mouth every 8 (eight) hours as needed for anxiety. Qty: 90 tablet, Refills: 3 norethindrone-ethinyl estradiol (MICROGESTIN 03/07) 1-20 mg-mcg per tablet Take 1 tablet by mouth daily . omeprazole (PRILOSEC) 40 MG capsule Take 40 mg by mouth daily . ondansetron (ZOFRAN-ODT) 4 MG disintegrating tablet Dissolve 8 mg on top of tongue every 6 (six) hours as needed for nausea (under tongue) . potassium chloride SA (K-DUR,KLOR-CON) 20 MEQ tablet Take 20 mEq by mouth 2 (two) times a day as needed . promethazine (PHENERGAN) 25 MG tablet Take 25 mg by mouth every 6 (six) hours as needed . tiZANidine (ZANAFLEX) 2 MG capsule Take 1 (one) capsule (2 mg total) by mouth 3 (three) times a day. Qty: 90 capsule, Refills: 5 Associated Diagnoses: Migraine without aura, intractable, without status migrainosus Physician(s) Family Provider: Lorin Maki MD, Address: [address] [place] [id number] Follow Up: Jerry Mirza DO [address] [facility] [address] Follow up Additional Information: Patient instructions, including activity, were given to the patient/family at discharge. Please seethe After Visit Summary in the electronic medical record for details. Time spent on discharge: > 30 minutes Completed by: Radha Mathew DO on 04/26/18, 5:49 PM in this encounter Discharge Instructions * Instructions* Radha Mathew DO - 04/26/2018 We do not have support for epilepsy based on your EEG. You had a version of your typical event, including amnesia, generalized writhing movements and this was NOT epileptic in nature. . This was thiswas not convulsive in nature as described by you previously. PSYCHOGENIC (NON-EPILEPTIC) EVENTS Why do I have these ?? 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 A disconnect between the brain body and emotion side When overwhelmed and in pain your body has learned a certain pattern of reactions IF you have a typical episode while recording an EEG, and the EEG is normal we diagnose you with non epileptic spells/conversion disorder Treatment is NOT seizure medication, but it is a different kind of talk therapy and likely a change in medication for mood. What type of therapy?? Specific type of outpatient talk therapy method Cognitive behavioral therapy (CBT) You can use these techniques yourself when you think an episode is starting Calm Breathing- one type of CBT What is Calm breathing ? Calm breathing (sometimes called diaphragmatic breathing ) is a technique that helps you slow down your breathing when feeling stressed or anxious. babies naturally breathe this way, as do singers, wind instrument players, and yoga practitioners. Why is Calm Breathing Important? Our breathing changes when we feel anxious. We tend to take short, quick, shallow breaths or even hyperventilate; this is called overbreathing . It is a good idea to learn techniques for managing overbreathing , because this type of breathing can actually make you feel even more anxious (e.g. due to a racing heart, dizziness or headaches). Calm breathing is a great portable tool that you can use whenever you are feeling anxious. It does require some practice. Ayala point: Like other anxiety-management skills, the purpose of calm breathing is not to avoid anxiety at all costs, but just to take the edge off or help you ride out the feelings. How to Do Calm Breathing Calm breathing involves taking smooth, slow and regular breaths. Sitting upright is usually better than lying down or slouching, because it can increase the capacity of your lungs to fill with air. It is best to 'take the weight' off your shoulders by supporting your arms on the side-arms of a chair, or on your lap. Take a slow breath in through the nose, breathing into your lower belly (for about 4 seconds) Hold your breath for 1 or 2 seconds Exhale slowly through the mouth (for about 4 seconds) Wait a few seconds before taking another breath About 6-8 breathing cycles per minute is often helpful to decrease anxiety but find your own comfortable breathing rhythm. These cycles regulate the amount of oxygen you take in so that you do not experience the fainting, tingling and giddy sensations that are sometimes associated with overbreathing. . How Can I be sure this is what I have? * Because epileptic and psychogenic non-epileptic spells may look the same, it is important to havedescriptions by those who observe them, such as family or friends. * To help diagnosis your seizures properly, we will monitor you with an EEG and by video-taping your activities over one or more days. If you have a seizure during this time, we can evaluate your EEG and watch the video tapes to see what is actually happening during your seizure. * Our goal is to record several events, so family or other observers who have seen your seizures can confirm that these are the same kind of episodes. * If you are on anti-epilepsy medicines, the doctor may stop them. We may ask you to carry out activities that seem likely to bring on a seizure, such as staying up all night. * Certain blood tests may help us determine whether the episode is epileptic or non-epileptic. What causes psychogenic non-epileptic spells? How do you treat psychogenic non- epileptic spells? * Psychogenic non-epileptic spells seem to be caused by stressful psychological experiences or emotional trauma. These spells are one way the body deals with excessive stress. *Treatment begins with a careful discussion of the results of the EEG and video Monitoring. * Unless the person has other seizures that are epileptic, anti-epilepsy drugs are not necessary. * If we determine that you are having psychogenic non-epileptic spells, an evaluation by a psychologist or psychiatrist is the next step to help you sort through any stress or trauma that may be the underlying cause. * We can provide professional counseling to identify and treat the underlying stress or trauma. If depression or anxiety is a part of the cause of the spells, medications may be used to decrease these symptoms. The goal is to eliminate these episodes and restore you to a satisfactory level of everyday activity. Why did my doctor say I had epilepsy? * About 80% of patients with psychogenic non-epileptic spells have been treated with antiepileptic drugs for several years before they receive a correct diagnosis. This does not mean that doctors who have treated you for epilepsy have been incompetent. Seizures are sometimes difficult to diagnose. * Many physicians do not have the equipment to do EEG-video monitoring, which has to be performed by a doctor who specializes in epilepsy. * Because epileptic seizures are potentially more harmful than psychogenic nonepileptic spells, physicians, when in doubt, will treat for the more serious condition. * If seizures continue despite medications, either the treatment needs to be changed or the diagnosis is not epilepsy. Patients are sent to an epilepsy center, where the diagnosis is usually made. Do I really need a psychiatrist? * Psychogenic non-epileptic spells is a psychiatric condition. * Psychogenic non-epileptic spells is a well-recognized condition that can be diagnosed with nearly 100% certainty. * Some people believe that treatment by a psychiatrist is a sign of being crazy or otherwise mentally incompetent. This is not true with psychogenic non-epileptic spells. * Psychological causes of your spells can best be identified with the help of those with special training in psychological issues: psychiatrists, psychologists, or clinical social workers. * We may not be able to pinpoint the exact cause of your spells, but we can concentrate on the most important goal: to reduce or stop the spells. * Your neurologist may continue to see you, but a mental health professional will be treating your spells. * Treatment may involve psychotherapy, stress-reduction techniques, such as relaxation and biofeedback training, and personal support to help you cope with the spells while you are in treatment. What is my outlook? Your outlook is good. * With proper treatment, the spells eventually disappear in 60- 70% of adults; the percentages are even higher for children and adolescents. * Psychiatric treatments are not a quick fix and take time. * A common mistake is to refuse the diagnosis and not follow up with the proper treatment. * An important factor is early diagnosis. The less time you have the wrong diagnosis of epilepsy, the better your chances of full recovery. * With the supervision of the neurologist, anti-epileptic drugs should be gradually stopped-do not stop them cold-turkey . in this encounter History of Present Illness * Cassy Yap RN - 04/26/2018 5:41 PM EDT Discharge instructions reviewed with patient. * Yves Jaime MD - 04/25/2018 4:53 PM EDT NEUROLOGY EMU Daily Progress Note [facility] Patient Name: Kendall Daniel : 1985 MR #: [id number] Date of Encounter: 04/25/18 Chief Complaint: Seizures, undergoing active evaluation. Interval History: Pt slept well overnight. Tolerating BID Photic Stimulation and HV for provocationof spells. Avoiding AED's for provocation as well. Declines to sleep deprive to 0300 hrs tonight, given headache. Pt had atypical event this a.m., as below. Events over past 24h: Patient manifests ONE sub-Target Clinical Event, with eye closure, moaning, unresponsiveness and writhing motions of body without EEG correlate, and diagnostic for a Non-Epileptic Event. Past Medical History: Patient Active Problem List Diagnosis SNOMED CT(R) Migraine without aura, intractable, without status migrainosus REFRACTORY MIGRAINE WITHOUT AURA Pseudoseizures DISSOCIATIVE CONVULSIONS History of renal stone HISTORY OF CALCULUS OF KIDNEY Sleep apnea, obstructive OBSTRUCTIVE SLEEP APNEA SYNDROME Reactive hypoglycemia REACTIVE HYPOGLYCEMIA Transient loss of consciousness LOSS OF CONSCIOUSNESS Mild intermittent asthma without complication MILD INTERMITTENT ASTHMA Chronic pain syndrome CHRONIC PAIN SYNDROME Stage 2 chronic kidney disease CHRONIC KIDNEY DISEASE STAGE 2 Hypokalemia HYPOKALEMIA Kidney stones KIDNEY STONE RLS (restless legs syndrome) RESTLESS LEGS PID (pelvic inflammatory disease) 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 Hallucinations HALLUCINATIONS Social History: Tobacco use: reports that she has never smoked. She has never used smokeless tobacco. Review of Systems: Pt denies pain, mood change, or skin rash. Physical Examination: Vitals are reviewed by myself in detail within the EMR. Eyes are clear. Oral mucosa is moist. Extremities are without deformity. Skin is without rash. Detailed Neurological Examination: Patient is alert, conversant at bedside Cranial Nerves II-XII are examined and intact Strength is full and rated 5/5 throughout Sensation is intact to light touch throughout Assessment and Plan: SNOMED CT(R) 1. Chronic pain syndrome CHRONIC PAIN SYNDROME 2. Hallucinations HALLUCINATIONS 3. Hypokalemia HYPOKALEMIA 4. Kidney stones KIDNEY STONE 5. Migraine without aura, intractable, without status migrainosus REFRACTORY MIGRAINE WITHOUT AURA 6. Mild intermittent asthma without complication MILD INTERMITTENT ASTHMA 7. PID (pelvic inflammatory disease) 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 8. Pseudoseizures DISSOCIATIVE CONVULSIONS 9. Reactive hypoglycemia REACTIVE HYPOGLYCEMIA 10. Sleep apnea, obstructive OBSTRUCTIVE SLEEP APNEA SYNDROME 11. Stage 2 chronic kidney disease CHRONIC KIDNEY DISEASE STAGE 2 12. Transient loss of consciousness LOSS OF CONSCIOUSNESS 13. RLS (restless legs syndrome) RESTLESS LEGS --Active provocation of target spells via: --Avoidance of Anticonvulsant medications --BID Hyperventilation --BID Photic Stimulation --Intermittent Sleep Deprivation --AED's: --Keppra restarting at 500 bid per Pt's explicit preference --Seizure Precautions --Continuous Telemetry --Ativan IV prn for repetitive or prolonged (>3 minute) seizures --Tylenol 500 mg prn for pain --Antivert 25 mg po prn Vertigo --Monitoring visual symptoms; exam unrevealing --Trazodone 50 mg po qhs prn for Sleep --Anticipate discharge 04/26/18 if stable My colleague Dr. Mathew will assume care of the EMU Patients as of 8:00 am on Thursday (04/26/18) Yves Jaime MD, ABPN, FAES Adult Epileptologist & Neurologist [facility] * Yves Jaime MD - 04/24/2018 4:20 PM EST NEUROLOGY EMU Daily Progress Note [facility] Patient Name: Kendall Daniel : 1985 MR #: [id number] Date of Encounter: 04/24/18 Chief Complaint: Seizures, undergoing active evaluation. Interval History: Pt sleep deprived to 0300 hrs overnight. Tolerating BID Photic Stimulation and HVfor provocation of spells. Avoiding AED's for provocation as well. Awaiting effects of sleep deprivation on provocation of target events. Dizziness improved, and has Antivert available prn. Found Trazodone helpful last night. Events over past 24h: None to date, despite active provocation. Past Medical History: Patient Active Problem List Diagnosis SNOMED CT(R) Migraine without aura, intractable, without status migrainosus REFRACTORY MIGRAINE WITHOUT AURA Pseudoseizures DISSOCIATIVE CONVULSIONS History of renal stone HISTORY OF CALCULUS OF KIDNEY Sleep apnea, obstructive OBSTRUCTIVE SLEEP APNEA SYNDROME Reactive hypoglycemia REACTIVE HYPOGLYCEMIA Transient loss of consciousness LOSS OF CONSCIOUSNESS Mild intermittent asthma without complication MILD INTERMITTENT ASTHMA Chronic pain syndrome CHRONIC PAIN SYNDROME Stage 2 chronic kidney disease CHRONIC KIDNEY DISEASE STAGE 2 Hypokalemia HYPOKALEMIA Kidney stones KIDNEY STONE RLS (restless legs syndrome) RESTLESS LEGS PID (pelvic inflammatory disease) 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 Hallucinations HALLUCINATIONS Social History: Tobacco use: reports that she has never smoked. She has never used smokeless tobacco. Review of Systems: Pt denies pain, mood change, or skin rash. Physical Examination: Vitals are reviewed by myself in detail within the EMR. Eyes are clear. Oral mucosa is moist. Extremities are without deformity. Skin is without rash. Detailed Neurological Examination: Patient is alert, conversant at bedside Cranial Nerves II-XII are examined and intact Strength is full and rated 5/5 throughout Sensation is intact to light touch throughout Assessment and Plan: SNOMED CT(R) 1. Chronic pain syndrome CHRONIC PAIN SYNDROME 2. Hallucinations HALLUCINATIONS 3. Hypokalemia HYPOKALEMIA 4. Kidney stones KIDNEY STONE 5. Migraine without aura, intractable, without status migrainosus REFRACTORY MIGRAINE WITHOUT AURA 6. Mild intermittent asthma without complication MILD INTERMITTENT ASTHMA 7. PID (pelvic inflammatory disease) 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 8. Pseudoseizures DISSOCIATIVE CONVULSIONS 9. Reactive hypoglycemia REACTIVE HYPOGLYCEMIA 10. Sleep apnea, obstructive OBSTRUCTIVE SLEEP APNEA SYNDROME 11. Stage 2 chronic kidney disease CHRONIC KIDNEY DISEASE STAGE 2 12. Transient loss of consciousness LOSS OF CONSCIOUSNESS 13. RLS (restless legs syndrome) RESTLESS LEGS --Active provocation of target spells via: --Avoidance of Anticonvulsant medications --BID Hyperventilation --BID Photic Stimulation --Intermittent Sleep Deprivation --AED's: --Keppra Stopped --Seizure Precautions --Continuous Telemetry --Ativan IV prn for repetitive or prolonged (>3 minute) seizures --Tylenol 500 mg prn for pain --Antivert 25 mg po prn Vertigo --Monitoring visual symptoms; exam unrevealing --Trazodone 50 mg po qhs prn for Sleep Yves Jaime MD, ABPN, FAES Adult Epileptologist & Neurologist [facility] * Yves Jaime MD - 04/23/2018 4:56 PM EST NEUROLOGY EMU Daily Progress Note [facility] Patient Name: Kendall Daniel : 1985 MR #: [id number] Date of Encounter: 04/23/18 Chief Complaint: Seizures, undergoing active evaluation. Interval History: Pt slept well overnight. Tolerating BID Photic Stimulation and HV for provocationof spells. Avoiding AED's for provocation as well. Agrees to sleep deprive to 0300 hrs tonight. Having issues with blurring of vision, with variability per Patient. Some dizziness for which Antivert has been helpful in past. Events over past 24h: None to date, despite active provocation. Past Medical History: Patient Active Problem List Diagnosis SNOMED CT(R) Migraine without aura, intractable, without status migrainosus REFRACTORY MIGRAINE WITHOUT AURA Pseudoseizures DISSOCIATIVE CONVULSIONS History of renal stone HISTORY OF CALCULUS OF KIDNEY Sleep apnea, obstructive OBSTRUCTIVE SLEEP APNEA SYNDROME Reactive hypoglycemia REACTIVE HYPOGLYCEMIA Transient loss of consciousness LOSS OF CONSCIOUSNESS Mild intermittent asthma without complication MILD INTERMITTENT ASTHMA Chronic pain syndrome CHRONIC PAIN SYNDROME Stage 2 chronic kidney disease CHRONIC KIDNEY DISEASE STAGE 2 Hypokalemia HYPOKALEMIA Kidney stones KIDNEY STONE RLS (restless legs syndrome) RESTLESS LEGS PID (pelvic inflammatory disease) 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 Hallucinations HALLUCINATIONS Social History: Tobacco use: reports that she has never smoked. She has never used smokeless tobacco. Review of Systems: Pt denies dry mouth, mood change, or shortness of breath. Physical Examination: Vitals are reviewed by myself in detail within the EMR. Eyes are clear. Oral mucosa is moist. Extremities are without deformity. Skin is without rash. Detailed Neurological Examination: Patient is alert, conversant at bedside Cranial Nerves II-XII are examined and intact Strength is full and rated 5/5 throughout Sensation is intact to light touch throughout Assessment and Plan: SNOMED CT(R) 1. Chronic pain syndrome CHRONIC PAIN SYNDROME 2. Hallucinations HALLUCINATIONS 3. Hypokalemia HYPOKALEMIA 4. Kidney stones KIDNEY STONE 5. Migraine without aura, intractable, without status migrainosus REFRACTORY MIGRAINE WITHOUT AURA 6. Mild intermittent asthma without complication MILD INTERMITTENT ASTHMA 7. PID (pelvic inflammatory disease) 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 8. Pseudoseizures DISSOCIATIVE CONVULSIONS 9. Reactive hypoglycemia REACTIVE HYPOGLYCEMIA 10. Sleep apnea, obstructive OBSTRUCTIVE SLEEP APNEA SYNDROME 11. Stage 2 chronic kidney disease CHRONIC KIDNEY DISEASE STAGE 2 12. Transient loss of consciousness LOSS OF CONSCIOUSNESS 13. RLS (restless legs syndrome) RESTLESS LEGS --Active provocation of target spells via: --Avoidance of Anticonvulsant medications --BID Hyperventilation --BID Photic Stimulation --Intermittent Sleep Deprivation --AED's: --Keppra Stopped --Seizure Precautions --Continuous Telemetry --Ativan IV prn for repetitive or prolonged (>3 minute) seizures --Tylenol 500 mg prn for pain --Antivert 25 mg po prn Vertigo --Monitoring visual symptoms; exam unrevealing Yves Jaime MD, ABPN, FASHARDA Adult Epileptologist & Neurologist [facility] * Barbara Christy RN - 04/22/2018 12:10 PM EST COMPLEX DISCHARGE Date: 04/22/2018 Time: 1:31 PM Patient Name: Kendall Daniel Date of : 1985 Sex: Female Pt's PCP is Lorin Maki MD; however, is changing to Winsome Cuevas CNP in May. Pt fills scripts at the [facility] in [place]. Continuous EEG monitoring in the EMU. Will follow. Discharge Plan Shared UM/CC and RN Source of Information: Patient Contact Phone Number: erika Puente-[phone]; Tosha Philip, [phone]. Living Arrangements: Spouse/significant other(Lives with fiance.) Support Systems: Spouse/significant other, Parent Functional Status: Independent Type of Residence: Private residence, Multi-level (stairs)(Lives in a 1 level home with a basement in [place].) Prior to Admission Home Care Services: No Current Home Equipment: None Insurance Coverage for Prescriptions: Yes Anticipated Discharge Plan Anticipated Home Care Needs: None Potential for Readmission Potential for Readmission: No Discharge Readiness Expected Discharge Date: 04/26/18(CEEG monitoring in the EMU.) [facility] Disposition D/C Disposition: Home Agency/Destination: Home Home Care Needs : None in this encounter Assessments Diagnosis Chronic pain syndrome Hallucinations Hypokalemia Hypopotassemia Kidney stones Calculus of kidney Migraine without aura, intractable, without status migrainosus Mild intermittent asthma without complication PID (pelvic inflammatory disease) Unspecified inflammatory disease of female pelvic organs and tissues Pseudoseizures Reactive hypoglycemia Hypoglycemia, unspecified Sleep apnea, obstructive Obstructive sleep apnea (adult) (pediatric) Stage 2 chronic kidney disease Transient loss of consciousness Other alteration of consciousness RLS (restless legs syndrome) Restless legs syndrome (RLS) Episode of transient neurologic symptoms Reason for Referral Specialty Diagnoses / Procedures Referred By Contac t Referred To Contact Ultrasound Diagnoses Lymphadenopathy of head and neck Procedures US NECK SOFT TISSUE Winsome Cuevas, [employer] [address] [place] [address] [facility] [address] [place] [address] Referral ID Status Reason Start Date Expiration Date Visits Re quested Visits Authorized [id number] Closed 07/23/2020 08/17/2021 1 1 Specialty Diagnoses / Procedures Referred By Contac t Referred To Contact Diagnoses Ovarian cyst, left Pelvic pain in female Endometriosis Procedures CONSULT TO MINIMALLY INVASIVE GYNECOLOGIC SURGERY OFFICE/[facility] 60-74 MINUTES Colleen Major MD [address] [place] [address] Referral ID Status Reason Start Date Expiration Date Visits Requested Visits Authorized [id number] Authorized PCP Requested Referral Auto-Generate d Referral 12/17/2022 12/17/2023 1 1 Specialty Diagnoses / Procedures Referred By Contac t Referred To Contact MR IMAGING Diagnoses Endometriosis Procedures MRI FEMALE PELVIS WO/W IVCON MRI PELVIS W/O & W/CONTRAST MATERIAL Mary Lou Morrison DO [address] [place] [address] [place] [address] Referral ID Status Reason Start Date Expiration Date Visits Requested Visits Authorized [id number] Pending Review Auto-Generat ed Referral 02/27/2024 1 1 Specialty Diagnoses / Procedures Referred By Contac t Referred To Contact Radiology Diagnoses Lumbago with sciatica, left side Procedures XR lumbar spine 2-3 views Ricky Guerrero DC [address] [facility] [place] [address] Referral ID Status Reason Start Date Expiration Date Visits Requested Visits Authorized [id number] Authorized Perform Procedure 08/04/2023 08/03/2024 1 1 Specialty Diagnoses / Procedures Referred By Contac t Referred To Contact Radiology Diagnoses Lumbago with sciatica, left side Procedures XR pelvis 1-2 views Ricky Guerrero DC [address] [facility] [place] [address] Referral ID Status Reason Start Date Expiration Date Visits Requested Visits Authorized [id number] Authorized Perform Procedure 08/04/2023 08/03/2024 1 1 Specialty Diagnoses / Procedures Referred By Contac t Referred To Contact Magnetic Resonance Imaging Diagnoses Acute left-sided low back pain with left-sided sciatica Procedures MRI SPINE LUMBAR WITHOUT CONTRAST CHG MRI SPINAL CANAL LUMBAR W/O CONTRAST MATERIAL Winsome Cuevas, CAR SWEEPER-DE[employer] MECHANIC [address] [place] [address] [facility] [address] [place] [address] Referral ID Status Reason Start Date Expiration Date V isits Requested Visits Authorized [id number] Authorized 08/10/2023 09/03/2024 1 1 Referral ID Status Reason Start Date Expiration Date Visits Re quested Visits Authorized [id number] Closed 08/10/2023 09/03/2024 1 1 Specialty Diagnoses / Procedures Referred By Contac t Referred To Contact Pain Medicine / Radiology Diagnoses Spondylosis of lumbosacral region without myelopathy or radiculopathy Procedures [place] pain management Mesha Garcia PA-C [address] [place] [address] [address] Referral ID Status Reason Start Date Expiration Date Visits Requested Visits Authorized [id number] Authorized Perform Procedure 11/04/2023 11/03/2024 1 1 Specialty Diagnoses / Procedures Referred By Contac t Referred To Contact Pain Medicine / Procedural Diagnoses Spondylosis of lumbosacral region without myelopathy or radiculopathy Procedures Medial Nerve Branch Block AZ NJX DX/THER AGT PVRT FACET JT LMBR/SAC 2ND LEVEL AZ NJX DX/THER AGT PVRT FACET JT LMBR/SAC 1 LEVEL Mesha Garcia PA-C [address] [place] [address] [address] Referral ID Status Reason Start Date Expiration Date Visits Requested Visits Authorized [id number] Pending Review Perform Procedure 11/04/2023 11/03/2024 1 1 Specialty Diagnoses / Procedures Referred By Contac t Referred To Contact Diagnoses Abdominal discomfort in right upper quadrant Procedures US ABDOMEN RUQ/LIVER/GB Winsome Cuevas, CAR SWEE[employer] MECHANIC [address] [place] [address] Referral ID Status Reason Start Date Expiration Date Visits Re quested Visits Authorized [id number] Closed 01/27/2024 02/20/2025 1 1 Specialty Diagnoses / Procedures Referred By Contac t Referred To Contact Radiology Diagnoses Spondylosis of lumbosacral region without myelopathy or radiculopathy Procedures [place] pain management Mesha Garcia PA-C [address] [place] [address] Referral ID Status Reason Start Date Expiration Date Visits Requested Visits Authorized [id number] Authorized Perform Procedure 10/08/2023 10/07/2024 1 1 Specialty Diagnoses / Procedures Referred By Contac t Referred To Contact Pain Medicine Diagnoses Spondylosis of lumbosacral region without myelopathy or radiculopathy Procedures Medial Nerve Branch Block AZ NJX DX/THER AGT PVRT FACET JT LMBR/SAC 1 LEVEL Mesha Garcia PA-C [address] [place] [address] Stef Maki DO [address] [place] [address] Referral ID Status Reason Start Date Expiration Date Visits Requested Visits Authorized [id number] Pending Review Perform Procedure 10/08/2023 10/07/2024 1 1 Specialty Diagnoses / Procedures Referred By Contac t Referred To Contact Pain Medicine / Procedural Diagnoses Spondylosis of lumbosacral region without myelopathy or radiculopathy Procedures Medial Nerve Branch Block AZ NJX DX/THER AGT PVRT FACET JT LMBR/SAC 1 LEVEL Mesha Garcia PA-C [address] [place] [address] [address] Referral ID Status Reason Start Date Expiration Date Visits Requested Visits Authorized [id number] Authorized Perform Procedure 10/08/2023 10/07/2024 1 1 Specialty Diagnoses / Procedures Referred By Contac t Referred To Contact Pain Medicine Diagnoses Spondylosis of lumbosacral region without myelopathy or radiculopathy Procedures Medial Nerve Branch Block AZ NJX DX/THER AGT PVRT FACET JT LMBR/SAC 2ND LEVEL AZ NJX DX/THER AGT PVRT FACET JT LMBR/SAC 1 LEVEL Mesha Garcia PA-C [address] [place] [address] Stef Maki DO [address] [place] [address] Chief Complaint and Reason for Visit Chief Complaint ABDOMINAL PAIN flank chest pain Reason for Visit Abnormal EKG Chest pain Chief Complaint ABDOMINAL PAIN flank chest pain chest pain Reason for Visit Abnormal EKG Chest pain Chief Complaint chest pain chest pain chest pain flank pain Reason for Visit Abnormal EKG Chest pain Chief Complaint flank pain GALLBLADDER ABD PAIN Reason for Visit Epigastric abdominal pain N&V (nausea and vomiting) RUQ pain Chief Complaint flank pain GALLBLADDER ABD PAIN ABD PAIN Reason for Visit Epigastric abdominal pain N&V (nausea and vomiting) RUQ pain Chief Complaint GALLBLADDER ABD PAIN ABD PAIN right foot/ankle Possible Aurelio's Disease CP Reason for Visit Epigastric abdominal pain N&V (nausea and vomiting) RUQ pain Dysautonomia-like disorder Chief Complaint right foot/ankle Possible Stratton's Disease CP abd pain Reason for Visit Dysautonomia-like di sorder Chief Complaint right foot/ankle Possible Aurelio's Disease CP abd pain DIAGNOSTIC LAPAROSCOPY, POSS LEFT OVARIAN CYSTECTO Reason for Visit Dysautonomia-like di sorder Chief Complaint SOB Chief Complaint SOB LEFT KNEE INJURY Chief Complaint SOB LEFT KNEE INJURY bleeding with Chief Complaint SOB LEFT KNEE INJURY bleeding with abd pain Chief Complaint SOB LEFT KNEE INJURY bleeding with abd pain vag bleed Chief Complaint ABD PAIN Chief Complaint Admit Date N/V RUQ PAIN March 01, 2024 8 :44am SEIZURE March 10, 2024 1 2:43am Right upper quadrant pain March 17, 2024 7:17am Microlaryngoscopy April 18, 2024 7:05 am BACK PAIN June 27, 2024 7:24p m Chief Complaint Admit Date BACK PAIN June 27, 2024 7:24p m KIDNEY STONE August 24, 2024 11:12 am Additional Source Comments INFORMATION SOURCE (unrecogn ized section and content) DATE CREATED AUTHOR 08/06/2017 [facility] DATE CREATED AUTHOR AUTHOR'S ORGANIZ ATION 08/11/2017 [facility] DATE CREATED AUTHOR AUTHOR'S ORGANIZ ATION 08/12/2017 [facility] DATE CREATED AUTHOR AUTHOR'S ORGANIZ ATION 04/18/2018 [facility] DATE CREATED AUTHOR AUTHOR'S ORGANIZ ATION 04/27/2018 [facility] DATE CREATED AUTHOR AUTHOR'S ORGANIZ ATION 11/03/2018 [facility] DATE CREATED AUTHOR AUTHOR'S ORGANIZ ATION 10/23/2019 [facility] DATE CREATED AUTHOR AUTHOR'S ORGANIZ ATION 06/18/2020 [facility] DATE CREATED AUTHOR AUTHOR'S ORGANIZ ATION 12/16/2020 [facility] DATE CREATED AUTHOR AUTHOR'S ORGANIZ ATION 12/21/2020 [facility] DATE CREATED AUTHOR AUTHOR'S ORGANIZ ATION 01/17/2021 [facility] DATE CREATED AUTHOR AUTHOR'S ORGANIZ ATION 12/21/2021 [facility] DATE CREATED AUTHOR AUTHOR'S ORGANIZ ATION 07/08/2022 [facility] DATE CREATED AUTHOR AUTHOR'S ORGANIZ ATION 03/30/2023 [facility] DATE CREATED AUTHOR AUTHOR'S ORGANIZ ATION 09/01/2023 [facility] DATE CREATED AUTHOR AUTHOR'S ORGANIZ ATION 09/03/2023 [facility] DATE CREATED AUTHOR AUTHOR'S ORGANIZ ATION 03/14/2024 [facility] DATE CREATED AUTHOR AUTHOR'S ORGANIZ ATION 05/21/2024 [facility] DATE CREATED AUTHOR AUTHOR'S ORGANIZ ATION 06/27/2024 [facility] DATE CREATED AUTHOR AUTHOR'S ORGANIZ ATION 07/01/2024 [facility] DATE CREATED AUTHOR AUTHOR'S ORGANIZ ATION 09/25/2024 [facility] DATE CREATED AUTHOR AUTHOR'S ORGANIZ ATION 09/30/2024 [facility] DATE CREATED AUTHOR AUTHOR'S ORGANIZ ATION 10/22/2024 [facility] DATE CREATED AUTHOR AUTHOR'S ORGANIZ ATION 10/23/2024 [facility] Reason for Visit (unrecogniz ed section and content) Status Reason Specialty Diagnoses / Procedures Referre d By Contact Referred To Contact Diagnoses F44.5 Procedures 88940 Reason Comments Respiratory Distress Status Reason Specialty Diagnoses / Procedures Referre d By Contact Referred To Contact Diagnoses Stridor Acute URI Respiratory distress Asthma exacerbation attacks Reason Comments Toe Pain L great toe nail cam e off 1 wk ago -has been using epsom salt rinses and triple antibiotic cream Reason Comments Rupture of Membranes Reason Comments Depression Post- Insomnia Back Pain Pain from spinal tap Nausea Knee Pain right Reason Comments Other New Patient-Asthma/O SA Specialty Diagnoses / Procedures Referred By Contac t Referred To Contact Ultrasound Diagnoses Lymphadenopathy of head and neck Procedures US NECK SOFT TISSUE Winsome Cuevas, CAR SWEE[employer]DECK MECHANIC [address] [facility] [place] [address] [facility] [address] [place] [address] Referral ID Status Reason Start Date Expiration Date Visits Re quested Visits Authorized [id number] Closed 07/23/2020 08/17/2021 1 1 Reason Comments Other Hospital follow up Reason Comments ED Follow-up Seen on 09/25 in [facility] and in [place] the month before Reason Comments Anxiety Insomnia Reason Comments Hypokalemia Labs-12/09-BUN-15,cr -0.75 Other Ua shows rare davey ls and some mucus and some and trace of protein suspects a kidney stone Reason Comments Anxiety Would like a refill of ativan to have enough to keep at work and at home. Insomnia Abdominal Pain Last evening had a r eally sharp pain in the top of stomach that came around to the sides. Stated took some pepcid and that seemed to help it Skin Problem Rash on inner left a rm started about two weeks ago Tingling Bilateral hands. Sta rted right after the seizure Nausea Reason Comments New Patient Psychogenic nonepile ptic spells Specialty Diagnoses / Procedures Referred By Bel t Referred To Contact Neurology Diagnoses Seizures Winsome Cuevas, CAR SWEE[employer] MECHANIC [address] [place] [address] Lindsay Pearson MD [address] [place] [address] Referral ID Status Reason Start Date Expiration Date Visits Re quested Visits Authorized [id number] Closed 05/26/2022 06/20/2023 1 1 Reason Comments Partial Hospitalization 07/02/22-07/03/22 with flank pain, done with Leavaquin. 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 Ultrasound Specialty Diagnoses / Procedures Referred By Bel t Referred To Contact [facility] Diagnoses Spotting in early Procedures OBSTETRIC ULTRASOUND WHI US PREG UTERUS AFTER 1ST TRIMEST GESTATION Charlotte Garcia MD [address] [place] [address] [facility] [address] [place] [address] Referral ID Status Reason Start Date Expiration Date V isits Requested Visits Authorized [id number] Closed Auto-Generate d Referral 11/10/2022 02/15/2023 1 1 Reason Comments Initial OB Visit Reason Comments Results 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 Comments 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 Ultrasound Specialty Diagnoses / Procedures Referred By Contac t Referred To Contact [facility] Diagnoses Ovarian cyst, left Pelvic pain in female Procedures PELVIC US WHI US PELVIC NONOBSTETRIC REAL-TIME IMAGE COMPLETE Colleen Major MD [address] [place] [address] [facility] [address] [place] [address] Referral ID Status Reason Start Date Expiration Date V isits Requested Visits Authorized [id number] Closed Auto-Generate d Referral 12/16/2022 02/15/2023 1 1 Reason Comments Follow Up Reason Comments Radiology US Specialty Diagnoses / Procedures Referred By Contac t Referred To Contact US IMAGING Diagnoses Ovarian cyst, left Pelvic pain in female Procedures US FEMALE PELVIS TRANSVAG US TRANSVAGINAL Colleen Major MD [address] [place] [address] Us Imaging [id number] Referral ID Status Reason Start Date Expiration Date V isits Requested Visits Authorized [id number] Closed Auto-Generate d Referral 12/09/2022 01/08/2024 1 1 Specialty Diagnoses / Procedures Referred By Contac t Referred To Contact Diagnoses Ovarian cyst, left Pelvic pain in female Endometriosis Procedures CONSULT TO MINIMALLY INVASIVE GYNECOLOGIC SURGERY OFFICE/OUTPATIENT NEW HIGH MDM 60-74 MINUTES Colleen Major MD [address] [place] [address] Referral ID Status Reason Start Date Expiration Date V isits Requested Visits Authorized [id number] Closed PCP Requested Referral Auto-Generated Referral 12/17/2022 12/17/2023 1 1 Reason Comments Menstrual Problem New pt. Interested i n surgical management for heavy menses. Reason Comments Post-Op Visit Reason Comments Anxiety Nausea Back Pain Insomnia Heart Problem Reason Comments Chronic Kidney Disease Labs 06/07 bun-14, cr-0.90 Reason Comments Flank Pain Sent from Dr Montes o ffice due to worsening right sided flank pain with nausea since last night. Concern for kidney stone. Patient reports Stage 2 kidney disease Reason Comments Anxiety Insomnia Urinary Frequency Had a kidney infecti on two weeks ago Seen at urgent care [facility] - treated with kelex three times a day for seven days.Still having symptoms Back Pain Reason Comments Breast Problem Specialty Diagnoses / Procedures Referred By Bel t Referred To Contact Radiology Diagnoses Lumbago with sciatica, left side Procedures XR lumbar spine 2-3 views Ricky Guerrero [place], [place] [address] [place] [address] Referral ID Status Reason Start Date Expiration Date Visits Requested Visits Authorized [id number] Authorized Perform Procedure 08/04/2023 08/03/2024 1 1 Specialty Diagnoses / Procedures Referred By Bel mike Referred To Contact Radiology Diagnoses Lumbago with sciatica, left side Procedures XR pelvis 1-2 views Ricky Guerrero DC [address] [place] [address] Referral ID Status Reason Start Date Expiration Date Visits Requested Visits Authorized [id number] Authorized Perform Procedure 08/04/2023 08/03/2024 1 1 Reason Comments Back Pain Hurt back about 1 mo nth ago and has been seeing a chiropractor. Had some X-rays of back & pelvis 08/04/23 and chiropractor feels she needs MRI. Referral to Dr Yanes placed 08/10/23 Reason Comments Seizure Recent seizures (had four on 08/31/2023) Depression Seems worse due to s ituational circumstances Anxiety States worse due to situational, not sure if medication dosing is correct Nausea Due to hitting head 08/27 with seizures Memory Loss Due to hitting head 08/27 with seizures Blurred Vision Due to hitting head 08/27 with seizures Mood Changes Pt suspects due to m edication Numbness Leg and foot due to pinched nerve in back Back Pain Pinched nerve Reason Comments New Patient History of seizures Specialty Diagnoses / Procedures Referred By Bel mike Referred To Contact Neurology Diagnoses Lumbosacral radiculopathy Sacroiliac joint pain Moises Yanes, [address] [place] [address] Lindsay Pearson MD [address] [place] [address] Referral ID Status Reason Start Date Expiration Date V isits Requested Visits Authorized [id number] New Request 09/03/2023 09/27/2024 1 1 Specialty Diagnoses /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 target events captured during this day of recording. Day 2: Stable background activities were noted on this day of recording. No abnormal diffuse or focal slowing is contained within the recording. There are no Interictal Epileptiform Discharges contained within the recording, and NO Electrographic Seizures occur. There are no clinical target events captured during this day of recording. Day 3: Stable background activities were noted on this day of recording. There are no Interictal Epileptiform Discharges contained within the recording, and NO Electrographic Seizures occur. There are no clinical target events captured during this day of recording. There is capture of ONE clinical target events captured during this day of recording, as follows: Event #1: 04/25/2018 at 0914 hrs, with clinical manifestation of eye closure, moaning, unresponsiveness and writhing motions of body without EEG correlate, and diagnostic for a Non-Epileptic Event. Duration 9 minutes, 10 seconds. 3-Day Continuous EEG Summary (Study Ongoing) Throughout Kendall Daniel's monitoring, stable background activities with appropriate architecture were noted. There are no interictal epileptiform discharges seen throughout the recording. No electrographic seizures were captured during the study. To date there has been capture of ONE clinical target spells with active provocation, and diagnostic for a Non-Epileptic Event with strong suggestion of Psychogenic sub-typing based upon witnessed semiology and duration of event. *Note*: Monitoring continues under the direction of my colleague, Dr. Mathew. Please see their accompanying report for full details of monitoring data gathered outside of the time span specified in this report. Yves Jaime MD, ABPN, FASHARDA Adult Epileptologist & Neurologist [facility] Epilepsy Center A Level 4, NAEC-Certified Epilepsy Center Associated Order(s): EEG JUNIOR NETWORK ENGINEER MONITORING [facility] Epilepsy Center Epilepsy Monitoring Unit (EMU) Report PROCEDURE Neurodiagnostic Report Continuous video electroencephalogram PARTIAL REPORT(Part 2 of 2) EEG Start Time: 04/22/2018 at 1117 hours Part two start time 04/25/2018 at 11:17 hours EEG Stop Time: 04/26/2018 at 1645 hours Referring Physician: Jerry Mirza DO CLINICAL INDICATION: Characterization of events concerning for epilepsy. Versus PNES HISTORY: This is a 32 y.o. female with a history of MEDICATIONS: On admission: keppra , GBP Changes during admission: stopped keppra TECHNICAL DESCRIPTION This is a 28-channel continuous video EEG set up in the International 10-20 electrode system. It was acquired using standardized montages and digital formatting. There is a single lead EKG recorded throughout the entire study that shows no obvious arrhythmia. Seizure and spike detection software was used and daily 30-minute frequent time samples were reviewed throughout the study. EEG DESCRIPTION During wake: There is a posterior dominant rhythm with a maximum frequency of 10 hertz. This is symmetrical across both hemispheres, well sustained and demonstrates reactivity to eye opening and closure. Drowsiness: There is attenuation of the background and build up of theta frequencies in the central head regions. There is no significant asymmetry seen between the two hemispheres. There is no focal slowing contained within the recording. Stage 2 sleep: Present and characterized by vertex waves, sleep spindles, and K complexes, predominant in the central head regions, symmetric in morphology and distribution Activation procedures: Did not produce any abnormalities on EEG Hyperventilation produced a mild generalized slowing Photic stimulation produced a driving response did not elicit any abnormalities. Events: in part 1 of 2 of the study EEG DIAGNOSIS: 1. Normal awake 2. Normal drowsy background 3. Normal Stage II and slow wave sleep IMPRESSION: This Part 2 of a halfway epilepsy monitoring unit Video EEG study recorded no events of clinical concern. This portion of the study is normal in waking and sleep. There was one event recorded in Part 1 of this study , which was characterized as unresponsiveness, with amnesia of the event and writhing. This was non epileptic in nature and most likely psychogenic Please see Dr. Jaime separate report for details regarding the first portion of the patient's study. Thank you very much for allowing me to participate in this patient's care. Radha Mathew DO, ABPN Adult Neurologist Epilepsy Board Certified [facility] Neurological Physicians [facility] Level 4- [facility] Epilepsy Center in this encounter Assessment & Plan Note - Geovanna Dumont CNP - 04/22/2018 11:17 AM ESTAssessment & Plan Note - Geovanna Dumont CNP - 04/22/2018 11:12 AM EST Miscellaneous Notes (unrecog nized section and content) Associated Problem(s): Hallucinations -Reports started having recently with reports will see spiders. Associated Problem(s): Hypokalemia -Uses Potassium prn if K low. -Give Potassium if K level less than 3.5. Associated Problem(s): Stage 2 chronic kidney disease -Reports has Stage 2 Kidney Disease with chronic Kidney Stones. -CMP pending. -On Hygroten at home, ordered equivalent Hydrochlorothiazide. 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 Associated Problem(s): Migraine without aura, intractable, without status migrainosus -Reports has improved with Gabapentin. Occurrs every few months. -No OCHOA currrently. -Tylenol prn ordered. -Continued Gabapentin and is on Tizanidine for anxiety. Associated Problem(s): Sleep apnea, obstructive -Reports mild, does not use ROSA device. 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 Plan of care for patient's admission is as follows: --Provocation of target spells via: --Elimination of Anticonvulsant medications --NO Hyperventilation --BID Photic Stimulation --Intermittent Sleep Deprivation --Taper AED's: Date Home AED #1: Keppra Home Dose: 500 mg bid Home AED #2: Ativan Home Dose: 0.5 mg prn Home AED #3: Gabapentin (takes for migraines and pain) Home Dose: 300 mg tid 04/22/2018 Discontinued, last dose this morning Discontinued, last Ativan dose last week. Continued, last dose this morning. --Continuous telemetry --DVT prophylaxis- Refused heparin, discussed will need to ambulate frequently. --Fall Precautions-Up with assistance only, discussed to wave at the camera for EEG techs and push RN button to get up to ambulate --Vital signs and Neuro Checks every 8 hours --Labs: CBC, BMP, LFTs, Urine , UA --Seizure Precautions --Ativan IV prn for repetitive or prolonged (>3 minute) seizures --Anticipate a 3-5 day stay in the EMU to address these goals in their entirety. Nazia this encounter Scheduled Active and Recently Administ ered Medications (unrecognized section and content) Medication Order 07/16/2020 07/17/2020 07/18/2020 albuterol (PROVENTIL) 2.5 mg /3 mL (0.083 %) nebulizer solution 2.5 mg (CANCELED) 2.5 mg, Inhalation, 4 times daily (RT), First dose on Thu07/13/20 at 2100 0800 (Not Given - Provider: Viviana Gutierrez RRT - Reason: Patient/family refused - Comment: getting sick; nauseus)1200 (Not Given - Provider: Viviana L Rocks, DIRECTOR OF SAFETY AND SECURITY - Reason: Patient/family refused - Comment: pt refused again-no reason given)1600 (Not Given - Provider: Viviana Gutierrez RRT - Reason: Patient/family refused - Comment: pt refused; wants to focus on withdrawal from gabapentin. Will take next one. Breathing is ok.)1999 (Not Given - Provider: Meggan Fontaine RRT - Reason: Patient/family refused) 0932 (Given - Provider: Aman Vicente, DIRECTOR OF SAFETY AND SECURITY) azithromycin (ZITHROMAX) tablet 250 mg 250 mg, Oral, Daily, First dose on Thu07/18/20 at 0900, Indication: CAP 0935 (Given - Provider: Steve Quintero, VITA) baclofen (LIORESAL) tablet 20 mg 20 mg, Oral, Every 8 hours scheduled, First dose on Thu07/16/20 at 1430 1446 (Given - Provider: Angelina Cruz RN)2326 (Given - Provider: Barbara Shafer RN) 0508 (Given - Provider: Barbara Shafer RN)1542 (Given - Provider: Angelina Cruz RN)2308 (Given - Provider: Barbara Shafer RN) 0538 (Given - Provider: Barbara Shafer RN)1302 (Given - Provider: Steve Quintero, VITA) dicyclomine (BENTYL) capsule 10 mg 10 mg, Oral, 4 times daily before meals and nightly, First dose on Thu07/16/20 at 1300 1306 (Given - Provider: Angelina Cruz RN)1815 (Given - Provider: Angelina Cruz RN)2326 (Given - Provider: Barbara Shafer RN) 0911 (Given - Provider: Angelina Cruz RN)1223 (Given - Provider: Angelina Cruz RN)1812 (Given - Provider: Angelina Cruz RN)2308 (Given - Provider: Barbara Shafer RN) 0855 (Given - Provider: Steve Quintero RN)1301 (Given - Provider: Steve Quintero RN) enoxaparin (LOVENOX) syringe 40 mg 40 mg, Subcutaneous, Daily, First dose on Thu07/13/20 at 2130, Administer in abdomen unless otherwise directed by prescriber. Notify physician if patient refuses., Indication: VTE Prophylaxis 2100 (Not Given - Provider: Barbara Shafer RN - Reason: Patient/family refused - Comment: Jesus Manuel Adrian CNP notified) 2099 (Not Given - Provider: Barbara Shafer RN - Reason: Patient/family refused) gabapentin (NEURONTIN) capsule 400 mg (CANCELED) 400 mg, Oral, 4 times daily, First dose (after last modification) on Thu07/16/20 at 1700 1457 (Given - Provider: Angelina Cruz RN - Comment: per Dr. Hansen)1700 (Canceled Entry - Provider: Angelina Cruz RN - Comment: already administered)2009 (Given - Provider: Barbara Shafer RN) 0911 (Given - Provider: Angelina Cruz RN) gabapentin (NEURONTIN) capsule 400 mg 400 mg, Oral, Every 12 hours scheduled, First dose (after last modification) on Thu07/17/20 at 2100 2032 (Given - Provider: Barbara Shafer RN) 0855 (Given - Provider: Steve Quintero RN) potassium chloride SA (K-DUR,KLOR-CON) CR tablet 40 mEq (COMPLETED) 40 mEq, Oral, Once, On Thu07/17/20 at 0830, For 1 dose, DO NOT CRUSH OR CHEW (If instructed may dissolve tablet(s) in liquid) 09 (Given - Provider: Angelina Cruz RN) predniSONE (DELTASONE) tablet 40 mg 40 mg, Oral, Daily with breakfast, First dose on Thu07/16/20 at 0800 0800 (Not Given - Provider: Angelina Cruz RN - Reason: Order parameters not met - Comment: patient dry heaving and nausea) 910 (Given - Provider: Angelina Cruz RN) 0935 (Given - Provider: Steve Quintero RN) vitamin with Ca-Iron-FA tablet 1 tablet 1 tablet, Oral, Daily, First dose on Thu07/14/20 at 0900 0900 (Not Given - Provider: Angelina Cruz RN - Reason: Order parameters not met - Comment: patient dry heaving and nausea) 09 (Given - Provider: Angelina Cruz RN) 0935 (Given - Provider: Steve Quintero RN) tamsulosin (FLOMAX) 24 hr capsule 0.4 mg 0.4 mg, Oral, After evening meal, First dose on Thu07/15/20 at 2300, DO NOT CRUSH OR CHEW. Give 30 minutes after the same meal daily. Monitor for orthostasis due to potential risk of syncope. 1814 (Given - Provider: Angelina Cruz RN) 1811 (Given - Provider: Angelina Cruz RN) topiramate (TOPAMAX) tablet 25 mg 25 mg, Oral, 2 times daily, First dose on Thu07/17/20 at 1230, Patient states does not recall ever taking this before and was willing to try low dose as has had mainly adverse reactions in the past to medications and no anaphylaxis CATEGORY D HAZARDOUS DRUG use safe handling precautions. Use reference link to view PPE guidelines. DO NOT CRUSH OR CHEW 122 (Given - Provider: Angelina Cruz RN)2032 (Given - Provider: Barbara Shafer RN) 0935 (Given - Provider: Steve Quintero RN) traZODone (DESYREL) tablet 150 mg 150 mg, Oral, Nightly, First dose on Thu07/13/20 at 2130 2326 (Not Given - Provider: Barbara Shafer RN - Reason: Patient/family refused) 2032 (Given - Provider: Barbara Shafer, VITA) Continuous Medication Order 07/16/2020 07/17/2020 07/18/2020 lactated Ringers infusion 100 mL/hr, Intravenous, Continuous, Starting on 07/14/20 at 2145 0500 (Rate/Dose Verify - Provider: Mallory Gunderson RN)0600 (Rate/Dose Verify - Provider: Mallory Gunderson RN)0856 (Rate/Dose Change - Provider: Barbara Shafer RN)0901 (Rate/Dose Change - Provider: Barbara Shafer, RN)0904 (Paused - Provider: Barbara Shafer, RN)0904 (New Bag - Provider: Angelina Cruz RN)190 (Rate/Dose Change - Provider: Barbara Shafer RN)190 (Rate/Dose Change - Provider: Barbara Shafer, RN)190 (Rate/Dose Verify - Provider: Barbara Shafer RN)191 (Stopped - Provider: Barbara Shafer RN)1912 (Paused - Provider: Barbara Shafer RN)1912 (New Bag - Provider: Barbara Shafer, RN)2008 (Rate/Dose Verify - Provider: Barbara Shafer RN)2042 (Rate/Dose Verify - Provider: Barbara Shafer RN)2343 (Rate/Dose Verify - Provider: Barbara Shafer RN) 0045 (Paused - Provider: Barbara Shafer RN)0045 (Restarted - Provider: Barbara Shafer RN)0108 (Rate/Dose Verify - Provider: Barbara Shafer RN)0208 (Rate/Dose Verify - Provider: Barbara Shafer RN)0509 (Stopped - Provider: Barbara Shafer RN)0510 (Restarted - Provider: Barbara Shafer RN)0510 (Paused - Provider: Barbara Shafer RN)0510 (New Bag - Provider: Barbara Shafer RN)0542 (Rate/Dose Verify - Provider: Barbara Shafer RN)0643 (Rate/Dose Verify - Provider: Barbara Shafer RN)1503 (Paused - Provider: Barbara Shafer RN)1528 (Restarted - Provider: Barbara Shafer RN)1529 (Paused - Provider: Barbara Shafer, RN)1531 (Restarted - Provider: Barbara Shafer, RN)1537 (Rate/Dose Change - Provider: Barbara Shafer RN)1541 (Rate/Dose Change - Provider: Barbara Shafer, RN)1544 (Paused - Provider: Barbara Shafer RN)1544 (New Bag - Provider: Angelina Cruz RN)1631 (Paused - Provider: Barbara Shafer RN)1631 (Restarted - Provider: Barbara Shafer RN)1632 (Paused - Provider: Barbara Shafer, RN)1639 (Restarted - Provider: Barbara Shafer, RN)1931 (Rate/Dose Verify - Provider: Barbara Shafer RN)2244 (Rate/Dose Verify - Provider: Barbara Shafer, RN)2316 (Rate/Dose Verify - Provider: Barbara Shafer RN) 0142 (Stopped - Provider: Barbara Shafer RN)0143 (Paused - Provider: Barbara Shafer RN)0143 (New Bag - Provider: Barbara Shafer RN)0146 (Paused - Provider: Barbara Shafre RN)0147 (Restarted - Provider: Barbara Shafer RN)0252 (Rate/Dose Verify - Provider: Barbara Shafer RN)0511 (Paused - Provider: Barbara Shafer RN)0511 (Restarted - Provider: Barbara Shafer RN)0546 (Rate/Dose Verify - Provider: Barbara Shafer RN) PRN Medication Order 07/16/2020 07/17/2020 07/18/2020 acetaminophen (TYLENOL) tablet 975 mg 975 mg, Oral, Every 6 hours PRN, fever 100.4 F or greater, headaches, mild pain, Starting on Thu07/13/20 at 2022 albuterol (PROVENTIL) 2.5 mg /3 mL (0.083 %) nebulizer solution 2.5 mg 2.5 mg, Nebulization, Every 6 hours PRN (RT), wheezing, Starting on Thu07/13/20 at 2009 1531 (Given - Provider: Aman Vicente, DIRECTOR OF SAFETY AND SECURITY) bisacodyL (DULCOLAX) suppository 10 mg 10 mg, Rectal, Daily PRN, constipation, Starting on Thu07/13/20 at 2007, Try oral medications first for constipation. Try rectal medication if oral meds are ineffective, not tolerated, or not ordered. guaiFENesin (MUCINEX) 12 hr tablet 600 mg 600 mg, Oral, Every 12 hours PRN, other, Cough and congestion, Starting on 07/14/20 at 1538, DO NOT CRUSH OR CHEW. 0048 (Given - Provider: Barbara Shafer RN) 0148 (Given - Provider: Barbara Shafer RN) HYDROmorphone (DILAUDID) injection 1 mg (CANCELED) 1 mg, Intravenous, Every 3 hours PRN, moderate to severe pain, Starting on 07/15/20 at 1014 0011 (Given - Provider: Mallory Gunderson, VITA)0340 (Given - Provider: Mallory Gunderson, VITA) hydrOXYzine (ATARAX) tablet 25 mg 25 mg, Oral, 3 times daily PRN, anxiety, Starting on 07/16/20 at 1253 1948 (Given - Provider: Claudine Lancaster, VITA) 0325 (Given - Provider: Barbara Shafer, RN)1812 (Given - Provider: Angelina Cruz, VITA) 0147 (Given - Provider: Barbara Shafer, RN) iopamidoL (ISOVUE-370) 76 % injection 75 mL(Linked Group 1) 75 mL, Intravenous, Once in imaging, contrast, Per afterschool babysitter (Radiology), Starting on Thu07/16/20 at 1024, For 1 dose iopamidol (ISOVUE-370) 76 % oral solution 6 mL(Linked Group 1) 6 mL, Oral, Every 30 min PRN, contrast, afterschool babysitter (Radiology) to provide timing based on exam schedule, Starting on Thu07/16/20 at 1024, For 3 doses, 6 mL iopamidol (ISOVUE-370) 76% oral solution diluted with 300 mL water x3 doses. ketorolac (TORADOL) injection 15 mg () 15 mg, Intravenous, Every 6 hours PRN, mild pain, Starting on Thu07/15/20 at 2207, For 48 hours 0542 (Given - Provider: Mallory Gunderson RN) magnesium hydroxide (MOM) 400 mg/5 mL suspension 2,400 mg 2,400 mg (30 mL), Oral, Daily PRN, constipation, For constipation., Starting on Thu07/13/20 at 2007 naloxone (NARCAN) injection 0.1 mg(Linked Group 2) 0.1 mg, Intravenous, As needed, opioid reversal, For respiratory rate less than or equal to 8 per minute., Starting on Thu07/13/20 at 2007, Mix nalOXone (NARCAN) 0.4 mg (1ml) with 9 mL of Normal Saline to total 10 mL. Administer 0.1 mg (2.5ml) IV Push every 2 minutes until respiratory rate is 10 or greater. naloxone (NARCAN) injection 0.4 mg(Linked Group 2) 0.4 mg, Intravenous, As needed, opioid reversal, patient is pulseless, breathless, and unresponsive, Starting on Thu07/13/20 at 2007, Call a code first, then administer naloxone dose undiluted IV Push over 30 seconds. ondansetron (ZOFRAN) injection 4 mg 4 mg, Intravenous, Every 4 hours PRN, nausea, vomiting, Starting on Thu07/14/20 at 2008 0017 (Given - Provider: Mallory Gunderson, VITA)0542 (Given - Provider: Mallory Gunderson RN)1303 (Given - Provider: Angelina Cruz, VITA)1920 (Given - Provider: Barbara Shafer, RN)2325 (Given - Provider: Barbara Shafer, RN) 0325 (Given - Provider: Barbara Shafer, RN)1227 (Given - Provider: Angelina Cruz, VITA) 0145 (Given - Provider: Barbara Shafer, VITA) prochlorperazine (COMPAZINE) injection 5 mg 5 mg, Intravenous, Every 6 hours PRN, nausea, vomiting, Starting on Thu07/16/20 at 0324, If IV, give slow IV push at a rate not exceeding 5 mg/minute and remain lying down for 30 minutes to reduce risk of hypotension. If IM, inject deep into outer buttocks quadrant. 0340 (Given - Provider: Mallory Gunderson RN)0914 (Given - Provider: Angelina Cruz, VITA - Comment: ok to give per Dr. Hansen) 0048 (Given - Provider: Barbara Shafer, VITA) 0510 (Given - Provider: Barbara Shafer, VITA) sodium chloride (PF) (NS) 0.9 % contrast line flush 10 mL(Linked Group 1) 10 mL, Intravenous, Once in imaging, contrast, Per afterschool babysitter (Radiology) for line patency check prior to contrast administration, Starting on Thu07/16/20 at 1024, For 1 dose sodium chloride (PF) (NS) 0.9 % contrast line flush 80 mL(Linked Group 1) 80 mL, Intravenous, Once in imaging, contrast, Per afterschool babysitter (Radiology), Starting on Thu07/16/20 at 1024, For 1 dose, 30 mL BEFORE contrast administration 50 mL AFTER contrast administration sodium chloride (PF) (NS) flush 5 mL(Linked Group 3) 5 mL, Intravenous, As needed, line care, Starting on Thu07/13/20 at 1417 sodium chloride 0.9% (NS)(Linked Group 3) 0-150 mL/hr, Intravenous, As needed, To flush line after IV infusions when no maintenance IV ordered or a compatibility issue. Infuse 20ml at the same rate as the secondary infusion, Starting on Thu07/13/20 at 1417, Run as Primary IV. NOT intended for KVO. Linked Groups Order Group 1: sodium chloride (PF) (NS) 0.9 % contrast line flush 10 mLJump to med 10 mL, Intravenous, Once in imaging, contrast, Per afterschool babysitter (Radiology) for line patency check prior to contrast administration, Starting on Thu07/16/20 at 1024, For 1 dose And sodium chloride (PF) (NS) 0.9 % contrast line flush 80 mLJump to med 80 mL, Intravenous, Once in imaging, contrast, Per afterschool babysitter (Radiology), Starting on Thu07/16/20 at 1024, For 1 dose
30 mL BEFORE contrast administration 50 mL AFTER contrast administration
And iopamidoL (ISOVUE-370) 76 % injection 75 mLJump to med 75 mL, Intravenous, Once in imaging, contrast, Per afterschool babysitter (Radiology), Starting on Thu07/16/20 at 1024, For 1 dose And iopamidol (ISOVUE-370) 76 % oral solution 6 mLJump to med 6 mL, Oral, Every 30 min PRN, contrast, afterschool babysitter (Radiology) to provide timing based on exam schedule, Starting on Thu07/16/20 at 1024, For 3 doses
6 mL iopamidol (ISOVUE-370) 76% oral solution diluted with 300 mL water x3 doses.
Group 2: naloxone (NARCAN) injection 0.1 mgJump to med 0.1 mg, Intravenous, As needed, opioid reversal, For respiratory rate less than or equal to 8 per minute., Starting on Thu07/13/20 at 2007
Mix nalOXone (NARCAN) 0.4 mg (1ml) with 9 mL of Normal Saline to total 10 mL. Administer 0.1 mg (2.5ml) IV Push every 2 minutes until respiratory rate is 10 or greater.
And Notify physician (CANCELED) STAT, Until discontinued, Starting on Thu07/13/20 at 2008, Until Specified
Respiratory rate less than: 8
For respiratory rate less than or equal to 8, notify physician and/or appropriate staff for additional orders. And naloxone (NARCAN) injection 0.4 mgJump to med 0.4 mg, Intravenous, As needed, opioid reversal, patient is pulseless, breathless, and unresponsive, Starting on Thu07/13/20 at 2008
Call a code first, then administer naloxone dose undiluted IV Push over 30 seconds.
Group 3: Insert peripheral IV (COMPLETED) SOFIYA, Once, On Thu07/13/20 at 1418, For 1 occurrence And Saline lock IV (CANCELED) SOFIYA, Once, On Thu07/13/20 at 1418, For 1 occurrence And sodium chloride (PF) (NS) flush 5 mLJump to med 5 mL, Intravenous, As needed, line care, Starting on Thu07/13/20 at 1417 And sodium chloride 0.9% (NS)Jump to med 0-150 mL/hr, Intravenous, As needed, To flush line after IV infusions when no maintenance IV ordered or a compatibility issue. Infuse 20ml at the same rate as the secondary infusion, Starting on Thu07/13/20 at 1417
Run as Primary IV. NOT intended for KVO.
Scheduled Medication Order 01/05/2021 01/06/2021 01/07/2021 citric acid-sodium citrate (BICITRA) solution 30 mL (COMPLETED) 30 mL, Oral, ONCE, On 01/05/21 at 0645, For 1 dose, Give prior to epidural placement., Labor and Delivery 0645 (Due)0652 (Given by Other - Provider: Stacy Fuentes RN) docusate sodium (COLACE) capsule 100 mg 100 mg, Oral, 2 TIMES DAILY, First dose (after last modification) on 01/07/21 at 0900, Do not crush or break., 0932 (Given - Provider: Clara Escobedo, VITA)2100 (Due) enoxaparin (LOVENOX) injection 40 mg 40 mg, SubCUTAneous, DAILY, First dose on 01/05/21 at 2030, 2009 (Given - Provider: Terri Barrios, VITA) 2043 (Given - Provider: Deirdre Castellon RN) 2030 (Due) ferrous sulfate (IRON 325) tablet 325 mg (CANCELED) 325 mg, Oral, 2 TIMES DAILY WITH MEALS, First dose on 01/05/21 at 1830, Start if Hgb less than 10., 2009 (Given - Provider: Terri Barrios RN) 0957 (Given - Provider: Lorin Archibald, VITA)1700 (Due) ferrous sulfate (IRON 325) tablet 325 mg 325 mg, Oral, DAILY, First dose (after last modification) on 01/07/21 at 0900, Start if Hgb less than 10., 09 (Given - Provider: Clara Escobedo, VITA) HYDROmorphone (DILAUDID) injection 0.5 mg (COMPLETED) 0.5 mg, IntraVENous, ONCE, On 01/05/21 at 1200, For 1 dose, For use in PACU only. Maximum hydromorphone total dose is 4mg. 1153 (Given - Provider: Stacy Fuentes, VITA) ibuprofen (ADVIL;MOTRIN) tablet 600 mg 600 mg, Oral, EVERY 6 HOURS, First dose on 01/05/21 at 1830, Do not crush or chew., 1940 (Not Given - Provider: Terri Barrios RN - Reason: Patient/family refused - Comment: Pt refused due to CKD) 0030 (Not Given - Provider: Terri Barrios RN - Reason: Patient/family refused)0857 (Not Given - Provider: Lorin Archibald RN - Reason: Patient/family refused)1229 (Given - Provider: Yvonne Rodas, VITA)2042 (Given - Provider: Deirdre Castellon RN) 0328 (Given - Provider: Zahida Eugene RN)0932 (Given - Provider: Clara Escobedo, VITA)1230 (Due)1830 (Due) ketorolac (TORADOL) injection 60 mg (COMPLETED) 60 mg, IntraMUSCular, ONCE, On 01/05/21 at 0930, For 1 dose 0915 (Given - Provider: Stacy Fuentes, VITA) lactated ringers bolus (COMPLETED) 250 mL, IntraVENous, at 250 mL/hr, Administer over 1 Hours, ONCE, On 01/05/21 at 0230, For 1 dose 0203 (New Bag - Provider: Vianey I Samayoa, RN)0217 (Stopped - Provider: Vianey Samayoa RN) magnesium sulfate 4000 mg in 100 mL IVPB premix (COMPLETED) 4,000 mg, IntraVENous, at 600 mL/hr, Administer over 10 Minutes, ONCE, On 01/05/21 at 0045, For 1 dose 0046 (New Bag - Provider: Vianey Samayoa RN)0105 (Stopped - Provider: Vianey Samayoa RN) measles, mumps & rubella vaccine (MMR) injection 0.5 mL 0.5 mL, SubCUTAneous, PRIOR TO DISCHARGE, Starting on 01/05/21 at 1812, For 1 dose, Administer if Rubella non-immune or equivocal, vitamin 27-1 MG tablet 1 tablet 1 tablet, Oral, DAILY, First dose on 01/05/21 at 1830, Begin when normal bowel activity resumes., 2010 (Not Given - Provider: Terri Barrios RN - Reason: Contraindicated - Comment: pt has no bm yet) 0956 (Given - Provider: Lorin Archibald RN) 0931 (Given - Provider: Clara Escobedo RN) promethazine (PHENERGAN) injection 6.25 mg (COMPLETED) 6.25 mg, IntraVENous, ONCE, On 01/05/21 at 0615, For 1 dose, Recommended route is IM. For IV administration, dilute to 10ml with normal saline. Must be administered over at least 10 minutes. 0612 (Given - Provider: Fely Pelletier RN) ccgxvyp-szjdjo-fdlqv pertussis (BOOSTRIX) injection 0.5 mL 0.5 mL, IntraMUSCular, PRIOR TO DISCHARGE, Starting on 01/05/21 at 1812, For 1 dose, If not previously administered during at 27-36 weeks as recommended by CDC., Continuous Medication Order 01/05/2021 01/06/2021 01/07/2021 lactated ringers infusion (CANCELED) IntraVENous, at 100 mL/hr, CONTINUOUS, Starting on Thu01/04/21 at 1700 0217 (New Bag - Provider: Vianey Samayoa RN - Comment: KVO 20ml/hr) magnesium sulfate (72381 mg/500mL infusion) (CANCELED) 1,000 mg/hr (25 mL/hr), IntraVENous, CONTINUOUS, Starting on 01/05/21 at 0045 0107 (New Bag - Provider: Vianey Samayoa, RN)0556 (Stopped - Provider: Fely Pelletier, RN) PRN Medication Order 01/05/2021 01/06/2021 01/07/2021 0.9 % sodium chloride infusion 25 mL, IntraVENous, at 100 mL/hr, PRN, If patient receiving piggyback infusions without ordered maintenance IV fluids or with frequent/long duration piggyback infusions, Starting on 01/05/21 at 1812, Administer at the same rate as the piggyback being infused., acetaminophen (TYLENOL) tablet 650 mg 650 mg, Oral, EVERY 6 HOURS PRN, Pain Mild (1-3), Starting on 01/05/21 at 1812, Maximum dose of acetaminophen is 4000 mg from all sources in 24 hours., 0950 (Given - Provider: Lorin Archibald RN) diphenhydrAMINE (BENADRYL) injection 25 mg 25 mg, IntraVENous, EVERY 6 HOURS PRN, Itching, Hives, Starting on 01/05/21 at 1812, docusate sodium (COLACE) capsule 100 mg (CANCELED) 100 mg, Oral, 2 TIMES DAILY PRN, Constipation, Starting on 01/05/21 at 1812, Do not crush or break., 2009 (Given - Provider: Terri Barrios, VITA) 2041 (Given - Provider: Deirdre Castellon RN) HYDROmorphone (DILAUDID) injection 0.25 mg(Linked Group 1) 0.25 mg, IntraVENous, EVERY 3 HOURS PRN, Pain Moderate (4-6), Starting on 01/05/21 at 1915, If oral and IV narcotics ordered, use oral first and only use IV if oral is ineffective or cannot take oral. Do Not give oral and IV within 1 hour of each other unless specifically ordered., 0120 (See Alternative - Provider: Terri Barrios RN)0648 (See Alternative - Provider: Terri Barrios RN)1504 (See Alternative - Provider: Yvonne Rodas RN) HYDROmorphone (DILAUDID) injection 0.5 mg (CANCELED) 0.5 mg, IntraVENous, EVERY 3 HOURS PRN, Pain Severe (7-10), Starting on 01/02/21 at 1927, If oral and IV narcotics ordered, use oral first and only use IV if oral is ineffective or cannot take oral. Do Not give oral and IV within 1 hour of each other unless specifically ordered. 0048 (Given - Provider: Fely Pelletier, RN)1609 (Given - Provider: Fauzia Jimenez, VITA) HYDROmorphone (DILAUDID) injection 0.5 mg(Linked Group 1) 0.5 mg, IntraVENous, EVERY 3 HOURS PRN, Pain Severe (7-10), Starting on 01/05/21 at 1915, If oral and IV narcotics ordered, use oral first and only use IV if oral is ineffective or cannot take oral. Do Not give oral and IV within 1 hour of each other unless specifically ordered., 0120 (Given - Provider: Terri Barrios, VITA)0648 (Given - Provider: Terri Barrios, VITA)1504 (Given - Provider: Yvonne Rodas RN) lansinoh lanolin ointment Topical, EVERY 1 HOUR PRN, Dry Skin, nipple discomfort, Starting on 01/05/21 at 1812, nalbuphine (NUBAIN) injection 5 mg 5 mg, IntraVENous, EVERY 4 HOURS PRN, Other, Itching not relieved by benadryl, Starting on 01/05/21 at 1812, Do not administer to patients with current narcotic addiction., naloxone (NARCAN) injection 0.4 mg 0.4 mg, IntraVENous, PRN, Opioid Reversal, Starting on 01/05/21 at 1812, PRN if respiratory rate is < 6/min or patient is difficult to arouse. Mix 9 mL of sodium chloride 0.9% with 0.4 mg (1 mL) of naloxone (NARCAN) in 10 mL syringe. (Note: dilution is 0.04 mg/mL) Give 0.08 mg (2 mL of special dilution), slow IV push, repeat up to 0.4 mg (10 mL) or until patient is responsive to physical stimulation and is able to take deep breaths. Continue to observe, if no response within 3 minutes of administration of 0.4 mg (10 mL) total, repeat dose (0.4 mg as administered previously) and notify physician STAT., ondansetron (ZOFRAN) injection 4 mg (CANCELED) 4 mg, IntraVENous, EVERY 6 HOURS PRN, Nausea, Vomiting, Starting on 01/01/21 at 0346, Administer if oral route cannot be used. 0048 (Given - Provider: Fely Pelletier, VITA) ondansetron (ZOFRAN) injection 4 mg 4 mg, IntraVENous, EVERY 6 HOURS PRN, Nausea, Starting on 01/05/21 at 1812, oxyCODONE (ROXICODONE) immediate release tablet 10 mg(Linked Group 2) 10 mg, Oral, EVERY 4 HOURS PRN, Pain Severe (7-10), Starting on 01/05/21 at 1915, 0949 (Given - Provider: Lorin Archibald RN)1402 (Given - Provider: Yvonne Rodas, VITA)2043 (Given - Provider: Deirdre Castellon, VITA) 0328 (Given - Provider: Zahida Eugene, VITA) oxyCODONE (ROXICODONE) immediate release tablet 5 mg(Linked Group 2) 5 mg, Oral, EVERY 4 HOURS PRN, Pain Moderate (4-6), Starting on 01/05/21 at 1915, 0949 (See Alternative - Provider: Lorin Archibald RN)1402 (See Alternative - Provider: Yvonne Rodas, VITA)2043 (See Alternative - Provider: Deirdre Castellon, VITA) 0328 (See Alternative - Provider: Zahida Eugene, VITA) oxytocin (PITOCIN) 10 unit bolus from the bag (COMPLETED) 500 mL (30 Units), IntraVENous, Administer over 75 Minutes, PRN, Bleeding, Starting on 01/05/21 at 0907, For 1 dose, For immediate post- use ONLY after delivery of baby/ excessive bleeding/ uterine atony. Bag 1 of 2: Bolus for bag to infuse at 999 ml/hour for 15 minutes (15 units in 250ml). After initial bolus then decrease rate to 250cc/hr (additional 15 units) for 1 hour. Then discontinue, Multiphase Phase of Care 0721 (Given by Other - Provider: Stacy Fuentes RN)0826 (Stop Time - Provider: Stacy Fuentes, VITA) oxytocin (PITOCIN) 30 units in 500 mL infusion (CANCELED) 125 jesus-units/min (125 mL/hr), IntraVENous, CONTINUOUS PRN, Bleeding, Starting on 01/05/21 at 0907, For 4 hours, Post- use ONLY after delivery of baby/ excessive bleeding/ uterine atony. Given after delivery of placenta AND the initial 30 unit bolus. Bag 2 of 2. 125 cc/hr (125 mu/min) for an additional infusion of 500cc (30 units), Multiphase Phase of Care 0826 (New Bag - Provider: Stacy Fuentes, VITA) simethicone (MYLICON) chewable tablet 80 mg 80 mg, Oral, EVERY 6 HOURS PRN, Cramping, Flatulence, Starting on 01/05/21 at 1812, sodium chloride flush 0.9 % injection 10 mL 10 mL, IntraVENous, PRN, Line Care, Starting on 01/05/21 at 1812, After every IV line use, traZODone (DESYREL) tablet 100 mg 100 mg, Oral, NIGHTLY PRN, Sleep, Starting on Thu01/01/21 at 2100 2009 (Given - Provider: Terri Barrios RN) 2041 (Given - Provider: Deirdre Castellon RN) No Frequency Medication Order 01/05/2021 01/06/2021 01/07/2021 azithromycin (ZITHROMAX) 500 MG injection (COMPLETED) Starting on 01/05/21 at 0632, For 1 dose, Stacy Fuentes RN: cabinet override 0704 (Given by Other - Provider: Stacy Fuentes, VITA) ceFAZolin (ANCEF) 2-4 GM/100ML-% IVPB (premix) SOLN (COMPLETED) Starting on 01/05/21 at 0633, For 1 dose, Stacy Fuentes RN: cabinet override 0655 (Given by Other Clinician - Provider: Stacy Fuentes, VITA) Linked Groups Order Group 1: HYDROmorphone (DILAUDID) injection 0.25 mgJump to med 0.25 mg, IntraVENous, EVERY 3 HOURS PRN, Pain Moderate (4-6), Starting on 01/05/21 at 1915
If oral and IV narcotics ordered, use oral first and only use IV if oral is ineffective or cannot take oral. Do Not give oral and IV within 1 hour of each other unless specifically ordered.
Or HYDROmorphone (DILAUDID) injection 0.5 mgJump to med 0.5 mg, IntraVENous, EVERY 3 HOURS PRN, Pain Severe (7-10), Starting on 01/05/21 at 1915
If oral and IV narcotics ordered, use oral first and only use IV if oral is ineffective or cannot take oral. Do Not give oral and IV within 1 hour of each other unless specifically ordered.
Group 2: oxyCODONE (ROXICODONE) immediate release tablet 5 mgJump to med 5 mg, Oral, EVERY 4 HOURS PRN, Pain Moderate (4-6), Starting on 01/05/21 at 1915, Or oxyCODONE (ROXICODONE) immediate release tablet 10 mgJump to med 10 mg, Oral, EVERY 4 HOURS PRN, Pain Severe (7-10), Starting on 01/05/21 at 1915, Scheduled Medication Order 06/08/2023 06/09/2023 06/10/2023 HYDROmorphone (DILAUDID) injection 0.5 mg (COMPLETED) 0.5 mg, Intravenous, ONCE, 1 dose, On Thu06/10/23 at 1145 1122 (Given - Provid er: Judith Martinez RN) Ondansetron 4mg/2ml (ZOFRAN) injection 4 mg (COMPLETED) 4 mg, Intravenous, ONCE, 1 dose, On Thu06/10/23 at 1130 1120 (Given - Provid er: Judith Martinez RN) Scheduled Medication Order 06/22/2024 06/23/2024 06/24/2024 acetaminophen (TYLENOL) tablet 1,000 mg 1,000 mg, oral, 3 times daily, First dose on Cristine 06/23/24 at 1400 1315 (Given - Provider: John Boyer RN)2102 (Given - Provider: Angie Quispe RN) 0836 (Given - Provider: Precious Nicole, RN)1400 (Canceled Entry - Provider: Automatic Discharge Provider - Comment: Automatically canceled at discontinue of medication order) ceFAZolin (ANCEF) 2 gram/20 mL IV syringe 2 g (COMPLETED) 2 g, intravenous, Administer over 3 Minutes, Once, On Cristine 06/23/24 at 0530, For 1 dose, Preprocedure, Administer within 60 minutes of incision For pt under 120 KG, Indication: Prophylaxis-Surgical 0640 (Given - Provider: EDGARD Yanez) ceFAZolin (ANCEF) 2 gram/20 mL IV syringe 2 g (COMPLETED) 2 g, intravenous, Administer over 3 Minutes, Every 8 hours, First dose on Cristine 06/23/24 at 1500, For 2 doses, Indication: Prophylaxis-Surgical 1517 (Given - Provider: John Boyer RN)2342 (Given - Provider: Angie Quispe RN) gabapentin (NEURONTIN) capsule 900 mg 900 mg, oral, 3 times daily, First dose on Cristine 06/23/24 at 1400 1315 (Given - Provider: John Boyer RN)2103 (Given - Provider: Angie Quispe RN) 0837 (Given - Provider: Precious Nicole, VITA)1400 (Canceled Entry - Provider: Automatic Discharge Provider - Comment: Automatically canceled at discontinue of medication order) gentamicin (GARAMYCIN) 320 mg in sodium chloride 0.9 % 100 mL IVPB (COMPLETED) 320 mg (rounded from 318.5 mg = 5 mg/kg 63.7 kg Adjusted weight), intravenous, at 100 mL/hr, Administer over 60 Minutes, Once, On Cristine 06/23/24 at 0530, For 1 dose, Preprocedure, Max dose of 500 mg Administer within 60 minutes of incision or given in or, Indication: Prophylaxis-Surgical 0639 (New Bag - Provider: EDGARD Yanez) lactated Ringer's infusion (COMPLETED) 20 mL/hr, intravenous, Once, On Cristine 06/23/24 at 0530, For 1 dose, Preprocedure 0533 (New Bag - Provider: Isabelle Myers RN) metoclopramide (REGLAN) injection 10 mg(Linked Group 1) 10 mg, intravenous, Every 8 hours, First dose on Cristine 06/23/24 at 1200, 1st Line Option: -ONLY give IV if patient is unable to take orally. -If inadequate response within 30 minutes, proceed to next-line agent or contact provider if no further options ordered. Doses LESS than or equal to 10 mg can be given IV push undiluted over 1 minute 1104 (See Alternative - Provider: John Boyer RN)2106 (See Alternative - Provider: Angie Quispe RN) 0541 (See Alternative - Provider: Angie Quispe RN)1200 (Canceled Entry - Provider: Automatic Discharge Provider - Comment: Automatically canceled at discontinue of medication order) metoclopramide (REGLAN) tablet 10 mg(Linked Group 1) 10 mg, oral, Every 8 hours, First dose on Cristine 06/23/24 at 1200, 1st Line Option: -Give IV if patient is unable to take orally. 1104 (Not Given - Provider: John Boyer RN - Reason: Patient/Resident/Agent refused - education provided )2106 (Not Given - Provider: Angie Quispe RN - Reason: Patient/Resident/Agent refused - education provided ) 0541 (Not Given - Provider: Angie Quispe RN - Reason: Patient/Resident/Agent refused - education provided )1200 (Canceled Entry - Provider: Automatic Discharge Provider - Comment: Automatically canceled at discontinue of medication order) polyethylene glycol (MIRALAX) packet 17 g 17 g, oral, Daily, First dose on Cristine 06/23/24 at 1400 1321 (Not Given - Provider: John Boyer RN - Reason: Patient/Resident/Agent refused - education provided ) 0836 (Given - Provider: Precious Nicole, VITA) senna-docusate (PERICOLACE) 8.6-50 mg per tablet 1 tablet 1 tablet, oral, 2 times daily, First dose on Cristine 06/23/24 at 2100 2103 (Given - Provider: Angie Quispe RN) 0836 (Given - Provider: Precious Nicole, VITA) spironolactone (ALDACTONE) tablet 25 mg 25 mg, oral, Nightly, First dose on Cristine 06/23/24 at 2100, HAZARDOUS Drug Precautions - Low Risk (Category A/NIOSH Group 3) Reproductive Risk Only: - Single pair of ASTM standard D6978 certified chemotherapy gloves - Eye protection (goggles or face shield) required only with a potential for facial contact (i.e. concern for spitting or vomiting of the dose during or after administration) - Staff at reproductive risk (actively trying to conceive, or may be become , and ): chemo certified gown and an N95 respirator required when crushing meds (crushing of tabs allowed only in closed pouches) or opening of capsules only for allowable dosage forms 2102 (Given - Provider: Angie Quispe RN) tiZANidine (ZANAFLEX) tablet 8 mg 8 mg, oral, 3 times daily, First dose on Cristine 06/23/24 at 1400 1315 (Given - Provider: John Boyer RN)2102 (Given - Provider: Angie Quispe RN) 0837 (Given - Provider: Precious Nicole RN)1400 (Canceled Entry - Provider: Automatic Discharge Provider - Comment: Automatically canceled at discontinue of medication order) tranexamic acid (CYKLOKAPRON) injection 1,000 mg (COMPLETED) 1,000 mg, intravenous, Once, On Cristine 06/23/24 at 0530, For 1 dose, Preprocedure, Administer prior to incision Not to exceed 100 mg (1 mL) per minute., Tranexamic Acid Indication: Surgical Prophylaxis: Orthopedic 0639 (Given - Provider: EDGARD Yanez) traZODone (DESYREL) tablet 150 mg 150 mg, oral, Nightly, First dose on Cristine 06/23/24 at 2099 2101 (Given - Provider: Angie Quispe RN) vortioxetine (TRINTELLIX) tablet 20 mg 20 mg, oral, Nightly, First dose on Cristine 06/23/24 at 2099 2101 (Given - Provider: Angie Quispe RN) Continuous Medication Order 06/22/2024 06/23/2024 06/24/2024 Oxygen Therapy, Adult inhalation, Continuous, Starting on Cristine 06/23/24 at 1100, Titrate 1 lpm - 4 lpm to keep SpO2 above 90%. If the patient has a history of COPD or obstructive sleep apnea, may titrate for sats at or above 88%. If flow is increased above 4 lpm, please contact the physician., Device: Nasal Cannula, Titrate Oxygen to keep O2 Sat. at or above: 90% 1100 (Canceled Entry - Provider: Automatic Discharge Provider - Comment: Automatically canceled at discontinue of medication order) sodium chloride 0.9 % infusion 100 mL/hr, intravenous, Continuous, Starting on Cristine 06/23/24 at 1100, For 1 day 1044 (Continued from OR - Provider: John Boyer RN)1608 (New Bag - Provider: John Boyer RN) 0109 (New Bag - Provider: Angie Quispe RN)0200 (Rate/Dose Verify - Provider: Angie Quispe, RN)0600 (Rate/Dose Verify - Provider: Angie Quispe RN) PRN Medication Order 06/22/2024 06/23/2024 06/24/2024 acetaminophen (TYLENOL) tablet 325 mg 325 mg, oral, Every 6 hours PRN, mild pain, headaches, Starting on Cristine 06/23/24 at 1033 aluminum-magnesium hydroxide-simethicone (MAALOX) 200-200-20 mg/5 mL suspension 30 mL 30 mL, oral, 4 times daily PRN, indigestion, heartburn, Starting on Cristine 06/23/24 at 1033 bethanechol (URECHOLINE) tablet 25 mg 25 mg, oral, 3 times daily PRN, As needed for urinary retention or PVR greater than 400 cc, Starting on Cristine 06/23/24 at 1033 bisacodyL (DULCOLAX) suppository 10 mg 10 mg, rectal, Daily PRN, constipation, If magnesium hydroxide ineffective, Starting on Cristine 06/23/24 at 1033 BUPivacaine HCl (MARCAINE) 0.5 % injection (CANCELED) As needed, Starting on Cristine 06/23/24 at 0727, Intraprocedure 0727 (Given - Provider: Moises Wilson DO) cloNIDine (CATAPRES) tablet 0.1 mg 0.1 mg, oral, Every 8 hours PRN, high blood pressure, for SBP more than 170 or DBP more than 105, Starting on Cristine 06/23/24 at 1033 diphenhydrAMINE (BENADRYL) capsule 25 mg 25 mg, oral, Every 6 hours PRN, itching, Starting on Cristine 06/23/24 at 1033 fentaNYL (PF) (SUBLIMAZE) injection 25 mcg (CANCELED) 25 mcg, intravenous, Every 5 min PRN, moderate pain, Starting on Cristine 06/23/24 at 0815, For 5 doses, Recovery (only) 0910 (Given - Provider: Sofya Zhu RN)0922 (Given - Provider: Sofya Zhu RN)0931 (Given - Provider: Sofya Zhu RN) HYDROmorphone (DILAUDID) injection 0.5 mg (CANCELED) 0.5 mg, intravenous, Every 5 min PRN, severe pain or when therapies for moderate pain were not effective, Starting on Cristine 06/23/24 at 0815, For 5 doses, Recovery (only) 0845 (Given - Provider: Sofya Zhu RN)0900 (Given - Provider: Sofya Zhu RN)0948 (Given - Provider: Sofya Zhu RN - Comment: prefers dilaudid to fent.) HYDROmorphone (DILAUDID) injection 0.5 mg 0.5 mg, intravenous, Every 2 hours PRN, severe pain, For severe breakthrough pain not relieved with oral pain medication, Starting on Cristine 06/23/24 at 1033 magnesium hydroxide (MILK OF MAGNESIA) 400 mg/5 mL suspension 30 mL 30 mL, oral, 2 times daily PRN, constipation, Starting on Cristine 06/23/24 at 1033, Follow dose with 8 oz of water. methocarbamoL (ROBAXIN) tablet 500 mg 500 mg, oral, 3 times daily PRN, muscle spasms, Starting on Cristine 06/23/24 at 1033 naloxone (NARCAN) injection 0.4 mg 0.4 mg, intravenous, Once as needed, opioid reversal, respiratory depression, Starting on Cristine 06/23/24 at 1033, For 1 dose ondansetron (PF) (ZOFRAN) injection 4 mg 4 mg, intravenous, Every 6 hours PRN, nausea, vomiting, Starting on Cristine 06/23/24 at 1033 oxyCODONE (ROXICODONE) immediate release tablet 10 mg(Linked Group 2) 10 mg, oral, Every 4 hours PRN, severe pain, Starting on Cristine 06/23/24 at 1033 1103 (Given - Provider: John Boyer RN)1519 (Given - Provider: John Boyer RN)2104 (See Alternative - Provider: Angie Quispe RN) 0109 (Given - Provider: Angie Quispe RN)0503 (Given - Provider: Angie Quispe RN)1032 (See Alternative - Provider: Precious Nicole RN) oxyCODONE (ROXICODONE) immediate release tablet 5 mg(Linked Group 2) 5 mg, oral, Every 4 hours PRN, moderate pain, Starting on Cristine 06/23/24 at 1033 1103 (See Alternative - Provider: John Boyer RN)1519 (See Alternative - Provider: John Boyer RN)2104 (Given - Provider: Angie Quispe RN) 0109 (See Alternative - Provider: Angie Quispe RN)0503 (See Alternative - Provider: Angie Quispe RN)1032 (Given - Provider: Precious Nicole RN) pantoprazole (PROTONIX) EC tablet 40 mg 40 mg, oral, Daily PRN, heartburn, Starting on Cristine 06/23/24 at 1033, Do not crush, chew, or split. promethazine (PHENERGAN) suppository 25 mg 25 mg, rectal, Every 6 hours PRN, nausea, vomiting, Starting on Cristine 06/23/24 at 1033, For use if unable to tolerate p.o. Phenergan and IV Zofran ineffective promethazine (PHENERGAN) tablet 12.5 mg 12.5 mg, oral, Every 6 hours PRN, nausea, vomiting, Starting on Cristine 06/23/24 at 1033, For use if IV Zofran ineffective or no IV access. sodium chloride 0.9 % irrigation solution (CANCELED) As needed, Starting on Cristine 06/23/24 at 0728, Intraprocedure 0744 (Given - Provider: Zuleima Thomas DO) thrombin (bovine) (THROMBIN-JMI) topical spray syringe (CANCELED) As needed, Starting on Cristine 06/23/24 at 0728, Intraprocedure 0744 (Given - Provider: Zuleima Thomas DO) Linked Groups Order Group 1: metoclopramide (REGLAN) tablet 10 mgJump to med 10 mg, oral, Every 8 hours, First dose on Cristine 06/23/24 at 1200, 1st Line Option: - Give IV if patient is unable to take orally. Or metoclopramide (REGLAN) injection 10 mgJump to med 10 mg, intravenous, Every 8 hours, First dose on Cristine 06/23/24 at 1200, 1st Line Option: -ONLY give IV if patient is unable to take orally. -If inadequate response within 30 minutes, proceed to next-line agent or contact provider if no further options ordered. Doses LESS than or equal to 10 mg can be given IV push undiluted over 1 minute Group 2: oxyCODONE (ROXICODONE) immediate release tablet 5 mgJump to med 5 mg, oral, Every 4 hours PRN, moderate pain, Starting on Cristine 06/23/24 at 1033 Or oxyCODONE (ROXICODONE) immediate release tablet 10 mgJump to med 10 mg, oral, Every 4 hours PRN, severe pain, Starting on Cristine 06/23/24 at 1033 <item><item> Privacy Markings (unrecogniz ed section and content) Section Author: Radha Davison PROHIBITION ON REDISCLOSURE OF CONFIDENTIAL INFORMATION This notice accompanies a disclosure of information concerning a client made to you with the consent of such client. Section Author: Radha Davison PROHIBITION ON REDISCLOSURE OF CONFIDENTIAL INFORMATION This notice accompanies a disclosure of information concerning a client made to you with the consent of such client. Care Teams (unrecognized sec tion and content) Construction Tech Relationship Specialty Start Date End Date Winsome Cuevas, DECK MECHANIC [address] [place] [address] PCP - General Cardiology 07/13/20 Construction Tech Relationship Specialty Start Date End Date Winsome Cuevas CAR SWEEPER[employer] PCP - General Certified Nurse Practitioner 06/02/18 Construction Tech Relationship Specialty Start Date End Date Winsome Cuevas [employer] PCP - General Certified Nurse Practitioner 06/02/18 Construction Tech Relationship Specialty Start Date End Date Winsome Cuevas [employer]EE[employer] PCP - General Certified Nurse Practitioner 06/02/18 Construction Tech Relationship Specialty Start Date End Date Winsome Cuevas CAR [employer]EE[employer] PCP - General Certified Nurse Practitioner 06/02/18 Construction Tech Relationship Specialty Start Date End Date Winsome Cuevas [employer] SWEE[employer] PCP - General Certified Nurse Practitioner 06/02/18 Construction Tech Relationship Specialty Start Date End Date Winsome Cuevas CAR SWEE[employer] PCP - General Certified Nurse Practitioner 06/02/18 Construction Tech Relationship Specialty Start Date End Date Winsome Cuevas CAR [employer]EE[employer] PCP - General Certified Nurse Practitioner 06/02/18 Team Status: Active Member Role Status Dates Dr. Lorin Maki MD Family Provider Active WINSOME CUEVAS Primary Care Provider Active Team Status: Inactive Member Role Status Dates Dr. Salu Shanks MD Attending Provider Active MASON MCGREGOR Primary Care Provider, Referring Provide r Active Team Status: Inactive Member Role Status Dates Dr. Cassy Rodriguez MD Attending Provider, Emergency Provider Active MASON MCGREGOR Primary Care Provider Active Team Status: Inactive Member Role Status Dates MASON MCGREGOR Primary Care Provider Active Dr. Cassy Rodriguez MD Attending Provider, Emergency Provider Active Team Status: Inactive Member Role Status Dates MASON MCGREGOR Primary Care Provider Active Dr. Jose Daniel Myers MD Attending Provider Active Team Status: Inactive Member Role Status Dates MASON MCGREGOR Primary Care Provider Active Dr. Rosalio Hi MD Emergency Provider Active Team Status: Inactive Member Role Status Dates MASON MCGREGOR Primary Care Provider Active Dr. Rosalio Hi MD Attending Provider, Emergency Provi miryam Active Team Status: Inactive Member Role Status Dates MASON MCGREGOR Primary Care Provider Active Dr. Jose Daniel Myers MD Attending Provider, Referring Pr ovider Active Construction Tech Relationship Specialty Start Date End Date [facility] - General Certified Nurse Practitioner 06/02/18 Construction Tech Relationship Specialty Start Date End Date Winsome Cuevas [facility] PCP - General Certified Nurse Practitioner 06/02/18 Construction Tech Relationship Specialty Start Date End Date Winsome Cuevas CAR SWEEPER[employer] PCP - General Certified Nurse Practitioner 06/02/18 Team Status: Inactive Member Role Status Dates MASON MCGREGOR Primary Care Provider Active Dr. Elver Yi MD Emergency Provider Active Team Status: Active Member Role Status Dates Dr. Lorin Maki MD Family Provider Active No Primary Care Physician Primary Care Provider Active Team Status: Inactive Member Role Status Dates MASON MCGREGOR Primary Care Provider Active Dr. Elver Yi MD Attending Provider, Emergency Provider Active Team Status: Inactive Member Role Status Dates Dr. Dandy Santos DO Attending Provider, Emergency P payton Active No Primary Care Physician Primary Care Provider Active Team Status: Inactive Member Role Status Dates No Primary Care Physician Primary Care Provider Active Dr. Jose Daniel Myers MD Attending Provider Active Team Status: Active Member Role Status Dates Dr. Lorin Maki MD Family Provider Active LUPE MASON Primary Care Provider Active Team Status: Inactive Member Role Status Dates Dr. Quique Gross MD Emergency Provider Active LUPEMASON Primary Care Provider Active Construction Tech Relationship Specialty Start Date End Date Winsome Cuevas CNP [address] [place] [phone] PCP - General Family Medicine 09/27/21 Construction Tech Relationship Specialty Start Date End Date Winsome Cuevas CNP [address] [place] [phone] PCP - General Family Medicine 09/27/21 Construction Tech Relationship Specialty Start Date End Date Winsome Cuevas MoeELVA-DECK MECHANIC PCP - General Certified Nurse Practitioner 06/02/18 Construction Tech Relationship Specialty Start Date End Date Winsome Cuevas APRN-DECK MECHANIC PCP - General Certified Nurse Practitioner 06/02/18 Construction Tech Relationship Specialty Start Date End Date Winsome Cuevas NP [address] [place] [phone] PCP - General Family Medicine 09/27/21 Construction Tech Relationship Specialty Start Date End Date Winsome Cuevas NP [address] [place] [phone] PCP - General Family Medicine 09/27/21 Construction Tech Relationship Specialty Start Date End Date Winsome Cuevas NP [address] [place] [phone] PCP - General Family Medicine 09/27/21 Team Status: Active Member Role Status Dates Dr. Lorin Maki MD Family Provider Active DORETHA Cuevas Primary Care Provider Active Team Status: Inactive Member Role Status Dates Dr. Quique Gross MD Attending Provider, Emergency Pro vider Active MASON ANDRADE Primary Care Provider Active Team Status: Inactive Member Role Status Dates DORETHA Winsome Mason Primary Care Provider Active Dr. Yvonne Castañeda MD Attending Provider, Referring Provider Active Team Status: Inactive Member Role Status Dates Rob Pedraza MD Attending Provider, Emergency Provid er Active DORETHA Winsome Mason Primary Care Provider Active Construction Tech Relationship Specialty Start Date End Date Winsome Cuevas NP [address] [place] [phone] PCP - General Family Medicine 09/27/21 Team Status: Inactive Member Role Status Dates Winsome COYNE Primary Care Provider Active Dr. Juan Antonio Prasad , Emergency Provider Active Construction Tech Relationship Specialty Start Date End Date Winsome Cuevas NP [address] [place] [phone] PCP - General Family Medicine 09/27/21 Construction Tech Relationship Specialty Start Date End Date Winsome Cuevas NP [address] [place] [phone] PCP - General Family Medicine 09/27/21 Construction Tech Relationship Specialty Start Date End Date Winsome Cuevas NP [address] [place] [phone] PCP - General Family Medicine 09/27/21 Construction Tech Relationship Specialty Start Date End Date Winsome Cuevas NP [address] [place] [phone] PCP - General Family Medicine 09/27/21 Construction Tech Relationship Specialty Start Date End Date Winsome Cuevas NP [address] [place], [place] [phone] PCP - General Family Medicine 09/27/21 Construction Tech Relationship Specialty Start Date End Date Winsome Cuevas NP [address] [place], [place] [phone] PCP - General Family Medicine 09/27/21 Construction Tech Relationship Specialty Start Date End Date Winsome Cuevas CAR SWEE[employer] PCP - General Certified Nurse Practitioner 06/02/18 Construction Tech Relationship Specialty Start Date End Date Winsome Cuevas NP [address] [place], [place] [phone] PCP - General Family Medicine 09/27/21 Construction Tech Relationship Specialty Start Date End Date Winsome Cuevas CAR SWEEPER[employer] PCP - General Certified Nurse Practitioner 06/02/18 Team Status: Inactive Member Role Status Dates No Primary Care Physician Primary Care Provider Active Dr. Zuleima Santiago , DO Emergency Provider Active Construction Tech Relationship Specialty Start Date End Date Winsome Cuevas NP [address] [place], [place] [phone] PCP - General Family Medicine 09/27/21 Construction Tech Relationship Specialty Start Date End Date Winsome Cuevas CAR SWEE[employer] PCP - General Certified Nurse Practitioner 06/02/18 Construction Tech Relationship Specialty Start Date End Date Winsome Cuevas NP [address] [place] [phone] PCP - General Family Medicine 09/27/21 Construction Tech Relationship Specialty Start Date End Date Mason Winsome CHRISTELLE Escobar [address] [place] [address], [place] [phone] PCP - General 12/17/20 Construction Tech Relationship Specialty Start Date End Date MasonWinsomeCHRISTELLE PCP - General Certified Nurse Practitioner 06/02/18 Construction Tech Relationship Specialty Start Date End Date Winsome Cuevas NP [address] [place] [address], [phone] PCP - General Family Medicine 09/27/21 Construction Tech Relationship Specialty Start Date End Date MasonWinsomeCHRISTELLE PCP - General Certified Nurse Practitioner 06/02/18 Construction Tech Relationship Specialty Start Date End Date MasonWinsomeCHRISTELLE PCP - General Certified Nurse Practitioner 06/02/18 Construction Tech Relationship Specialty Start Date End Date Winsome Cuevas APRN-CNP PCP - General Certified Nurse Practitioner 06/02/18 Construction Tech Relationship Specialty Start Date End Date Winsome Cuevas APRN-CNP PCP - General Certified Nurse Practitioner 06/02/18 Construction Tech Relationship Specialty Start Date End Date Winsome Cuevas CNP [address] [place] [address], [facility] PCP - General Cardiology 07/13/20 Construction Tech Relationship Specialty Start Date End Date MasonWinsome ELVA Rosa-DORETHA PCP - General Certified Nurse Practitioner 06/02/18 Construction Tech Relationship Specialty Start Date End Date Winsome Cuevas CNP [address] [place] [phone] PCP - General Cardiology 07/13/20 Construction Tech Relationship Specialty Start Date End Date MasonWinsome ELVA Escobar-DECK MECHANIC [address] [place] [phone] PCP - General 12/17/20 Construction Tech Relationship Specialty Start Date End Date Winsome Cuevas APRN-DECK MECHANIC [address] [place] [phone] PCP - General 12/17/20 Construction Tech Relationship Specialty Start Date End Date [place] [address] [place] [phone] PCP - General Family Medicine 09/27/21 Construction Tech Relationship Specialty Start Date End Date [place] ELVA Escobar-DECK MECHANIC [address] [place] [phone] PCP - General 12/17/20 Construction Tech Relationship Specialty Start Date End Date [place] ELAV Escobar-DECK MECHANIC [address] [place] [phone] PCP - General 12/17/20 Construction Tech Relationship Specialty Start Date End Date Winsome CuevasFRANCISCO JAVIERN-DECK MECHANIC PCP - General Certified Nurse Practitioner 06/02/18 Construction Tech Relationship Specialty Start Date End Date Winsome Cuevas ELVA-DECK MECHANIC PCP - General Certified Nurse Practitioner 06/02/18 Construction Tech Relationship Specialty Start Date End Date Winsome CuevasELVA-DECK MECHANIC [address] [place] [phone] PCP - General 12/17/20 Construction Tech Relationship Specialty Start Date End Date Winsome CuevasELVA sol-DECK MECHANIC [address] [place], [place] [phone] PCP - General 12/17/20 Construction Tech Relationship Specialty Start Date End Date Winsome CuevasELVA-DECK MECHANIC PCP - General Certified Nurse Practitioner 06/02/18 Construction Tech Relationship Specialty Start Date End Date Winsome CuevasELVA-DECK MECHANIC [address] [place] [address], [place] [phone] PCP - General 12/17/20 Construction Tech Relationship Specialty Start Date End Date Winsome CuevasELVA-DECK MECHANIC PCP - General Certified Nurse Practitioner 06/02/18 Construction Tech Relationship Specialty Start Date End Date Winsome CuevasDORETHA sol [address] [place] [phone] PCP - General Cardiology 07/13/20 Construction Tech Relationship Specialty Start Date End Date [place] ELVA Escobar-DECK MECHANIC [address] [place] [address], [place] [phone] PCP - General 12/17/20 Construction Tech Relationship Specialty Start Date End Date Winsome Cuevas CNP [address] [place] [phone] PCP - General Cardiology 07/13/20 Construction Tech Relationship Specialty Start Date End Date [place] ELVA Escobar-DECK MECHANIC [address] [place] [address], [place] [phone] PCP - General 12/17/20 Construction Tech Relationship Specialty Start Date End Date Winsome Cuevas APRN-DECK MECHANIC [address] [place] [address], [place] [phone] PCP - General 12/17/20 Construction Tech Relationship Specialty Start Date End Date [place] ELVA Escobar-DORETHA [address] [place] [address], [place] [phone] PCP - General 12/17/20 Construction Tech Relationship Specialty Start Date End Date Winsome Cuevas NP [address] [place] [address], [place] [phone] PCP - General Family Medicine 06/20/24 Construction Tech Relationship Specialty Start Date End Date Winsome Cuevas NP [address] [place] [address], [place] [phone] PCP - General Family Medicine 06/20/24 Team Status: Active Member Role Status Dates Winsome Cuevas , HEALTH NAVIGATOR-C Primary Care Provider Active Team Status: Inactive Member Role Status Dates Winsome Cuevas HEALTH NAVIGATOR-C Primary Care Provider Active Start: March 01, 2024 End: March 01, 2024 Cassy Joiner HEALTH NAVIGATOR-C Attending Provider Active Start: March 01, 2024 End: March 01, 2024 Cassy oJiner HEALTH NAVIGATOR-C Referring Provider Active Start: March 01, 2024 End: March 01, 2024 Team Status: Inactive Member Role Status Dates Winsome Cuevas HEALTH NAVIGATOR-C Primary Care Provider Active Start: March 10, 2024 End: March 10, 2024 Dr. Hoem Grace DO Attending Provider Active Start: March 10, 2024 End: March 10, 2024 Dr. Home Grace DO Emergency Provider Active Start: March 10, 2024 End: March 10, 2024 Team Status: Inactive Member Role Status Dates Winsome Cuevas HEALTH NAVIGATOR-C Primary Care Provider Active Start: March 17, 2024 End: March 17, 2024 Cassy Joiner HEALTH NAVIGATOR-C Attending Provider Active Start: March 17, 2024 End: March 17, 2024 Cassy Joiner HEALTH NAVIGATOR-C Referring Provider Active Start: March 17, 2024 End: March 17, 2024 Team Status: Inactive Member Role Status Dates Winsome Cuevas , HEALTH NAVIGATOR-C Primary Care Provider Active Start: April 18, 2024 End: April 18, 2024 Dr. Cheo Arevalo MD Attending Provider Active Start: April 18, 2024 End: April 18, 2024 Dr. Cheo Arevalo MD Referring Provider Active Start: April 18, 2024 End: April 18, 2024 Team Status: Inactive Member Role Status Dates Winsome Cuevas , HEALTH NAVIGATOR-C Primary Care Provider Active Start: June 27, 2024 End: June 27, 2024 Dr. Bubba Nevarez DO Referring Provider Active Start: June 27, 2024 End: June 27, 2024 Dr. Bubba Nevarez DO Emergency Provider Active Start: June 27, 2024 End: June 27, 2024 Construction Tech Relationship Specialty Start Date End Date Winsome Cuevasover, CAR SWEEPER-DECK MECHANIC [address] [place] [phone] PCP - General 12/17/20 Construction Tech Relationship Specialty Start Date End Date Winsome Cuevas APRN-DECK MECHANIC PCP - General Certified Nurse Practitioner 06/02/18 Construction Tech Relationship Specialty Start Date End Date Winsome Cuevas APRN-DECK MECHANIC PCP - General Certified Nurse Practitioner 06/02/18 Construction Tech Relationship Specialty Start Date End Date Winsome Cuevas CAR SWEEPER-DECK MECHANIC PCP - General Certified Nurse Practitioner 06/02/18 Team Status: Active Member Role/Relationship Status Dates Winsome Cuevas , HEALTH NAVIGATOR-C Primary Care Provider Active Team Status: Inactive Member Role/Relationship Status Dates Winsome Mason HEALTH NAVIGATOR-C Primary Care Provider Active Start: June 27, 2024 End: June 27, 2024 Dr. Bubba Nevarez , Attending Provider Active Start: June 27, 2024 End: June 27, 2024 Dr. Bubba Nevarez , Referring Provider Active Start: June 27, 2024 End: June 27, 2024 Dr. Bubba Nevarez , Emergency Provider Active Start: June 27, 2024 End: June 27, 2024 Team Status: Inactive Member Role/Relationship Status Dates Winsome Mason HEALTH NAVIGATOR-C Primary Care Provider Active Start: August 24, 2024 End: August 24, 2024 Dr. Guillermo Gilliland , Emergency Provider Active Start: August 24, 2024 End: August 24, 2024 Construction Tech Relationship Specialty Start Date End Date Winsome Cuevas CAR SWEEPER-DECK MECHANIC [address] [place] [phone] PCP - General 12/17/20 Construction Tech Relationship Specialty Start Date End Date Winsome Cuevas CAR SWEEPER-DECK MECHANIC PCP - General Certified Nurse Practitioner 06/02/18 Ordered Prescriptions (unrec ognized section and content) Prescription Sig Dispensed Refills Start Date End Da te docusate sodium (COLACE) 100 MG capsule Take 1 capsule by mouth 2 times daily 40 capsule 0 01/07/2021 ferrous sulfate (IRON 325) 325 (65 Fe) MG tablet Take 1 tablet by mouth daily 30 tablet 0 01/08/2021 sertraline (ZOLOFT) 25 MG tablet Take 1 tablet by mouth daily 30 tablet 2 01/07/2021 ibuprofen (ADVIL;MOTRIN) 600 MG tablet Take 1 tablet by mouth every 6 hours 40 tablet 0 01/07/2021 oxyCODONE (ROXICODONE) 5 MG immediate release tabletIndications:Preter m delivery Take 1 tablet by mouth every 4 hours as needed for Pain for up to 3 days. 10 tablet 0 01/07/2021 01/10/2021 Goals (unrecognized section and content) Goals may be documented in a n alternate sectionGoals may be documented in an alternate sectionGoals may be documented in an alternate sectionGoals may be documented in an alternate sectionGoals may be documented in an alternate sectionGoals may be documented in an alternate sectionGoals may be documented in an alternate sectionGoals may be documented in an alternate sectionGoals may be documented in an alternate sectionGoals may be documented in an alternate sectionGoals may be documented in an alternate section Source Comments (unrecognize d section and content) In the event this informatio n is protected by the Federal Confidentiality of Alcohol and Drug Abuse Patient Records regulations: The Federal rules restrict any use of the information to criminally investigate or prosecute any alcohol or drug abuse patient.[facility] the event this information is protected by the Federal Confidentiality of Alcohol and Drug Abuse Patient Records regulations: The Federal rules restrict any use of the information to criminally investigate or prosecute any alcohol or drug abuse patient.[facility] the event this information is protected by the Federal Confidentiality of Alcohol and Drug Abuse Patient Records regulations: The Federal rules restrict any use of the information to criminally investigate or prosecute any alcohol or drug abuse patient.[facility] the event this information is protected by the Federal Confidentiality of Alcohol and Drug Abuse Patient Records regulations: The Federal rules restrict any use of the information to criminally investigate or prosecute any alcohol or drug abuse patient.[facility] the event this information is protected by the Federal Confidentiality of Alcohol and Drug Abuse Patient Records regulations: The Federal rules restrict any use of the information to criminally investigate or prosecute any alcohol or drug abuse patient.[facility] the event this information is protected by the Federal Confidentiality of Alcohol and Drug Abuse Patient Records regulations: The Federal rules restrict any use of the information to criminally investigate or prosecute any alcohol or drug abuse patient.[facility] the event this information is protected by the Federal Confidentiality of Alcohol and Drug Abuse Patient Records regulations: The Federal rules restrict any use of the information to criminally investigate or prosecute any alcohol or drug abuse patient.[facility] the event this information is protected by the Federal Confidentiality of Alcohol and Drug Abuse Patient Records regulations: The Federal rules restrict any use of the information to criminally investigate or prosecute any alcohol or drug abuse patient.[facility] the event this information is protected by the Federal Confidentiality of Alcohol and Drug Abuse Patient Records regulations: The Federal rules restrict any use of the information to criminally investigate or prosecute any alcohol or drug abuse patient.[facility] the event this information is protected by the Federal Confidentiality of Alcohol and Drug Abuse Patient Records regulations: The Federal rules restrict any use of the information to criminally investigate or prosecute any alcohol or drug abuse patient.[facility] the event this information is protected by the Federal Confidentiality of Alcohol and Drug Abuse Patient Records regulations: The Federal rules restrict any use of the information to criminally investigate or prosecute any alcohol or drug abuse patient.[facility] the event this information is protected by the Federal Confidentiality of Alcohol and Drug Abuse Patient Records regulations: The Federal rules restrict any use of the information to criminally investigate or prosecute any alcohol or drug abuse patient.[facility] the event this information is protected by the Federal Confidentiality of Alcohol and Drug Abuse Patient Records regulations: The Federal rules restrict any use of the information to criminally investigate or prosecute any alcohol or drug abuse patient.[facility] the event this information is protected by the Federal Confidentiality of Alcohol and Drug Abuse Patient Records regulations: The Federal rules restrict any use of the information to criminally investigate or prosecute any alcohol or drug abuse patient.[facility] the event this information is protected by the Federal Confidentiality of Alcohol and Drug Abuse Patient Records regulations: The Federal rules restrict any use of the information to criminally investigate or prosecute any alcohol or drug abuse patient.[facility] the event this information is protected by the Federal Confidentiality of Alcohol and Drug Abuse Patient Records regulations: The Federal rules restrict any use of the information to criminally investigate or prosecute any alcohol or drug abuse patient.[facility] the event this information is protected by the Federal Confidentiality of Alcohol and Drug Abuse Patient Records regulations: The Federal rules restrict any use of the information to criminally investigate or prosecute any alcohol or drug abuse patient.[facility] the event this information is protected by the Federal Confidentiality of Alcohol and Drug Abuse Patient Records regulations: The Federal rules restrict any use of the information to criminally investigate or prosecute any alcohol or drug abuse patient.[facility] the event this information is protected by the Federal Confidentiality of Alcohol and Drug Abuse Patient Records regulations: The Federal rules restrict any use of the information to criminally investigate or prosecute any alcohol or drug abuse patient.[facility] the event this information is protected by the Federal Confidentiality of Alcohol and Drug Abuse Patient Records regulations: The Federal rules restrict any use of the information to criminally investigate or prosecute any alcohol or drug abuse patient.[facility] FOR RECORDS PERTAINING TO PATIENTS WHO ARE OR HAVE BEEN ENROLLED IN A CHEMICAL DEPENDENCY/SUBSTANCEABUSE PROGRAM, SOME INFORMATION MAY BE OMITTED. This clinical summary was aggregated from multiple sources. Caution should be exercised in using it in the provision of clinical care. This summary normalizes information from multiple sources, and as a consequence, information in this document may materially change the coding, format and clinical context of patient data. In addition, data may be omitted in some cases. CLINICAL DECISIONS SHOULD BE BASED ON THE PRIMARY CLINICAL RECORDS. [facility]. provides no warranty or guarantee of the accuracy or completeness of information in this document.
--- NOTE | 2024-10-26 00:41 | EX.ED.DYSGE1 ---
HPI History of Present Illness Chief Complaint: Seizure Detail of Chief Complaint: Seizure-like activity Informant: patient and spouse/S.O. Onset/Context/Timing Onset: Today (X 3) Context: Sudden Onset Timing: Intermittent Quality: First episode reportedly felt weak went to the ground and was stiff. 2 add Location: Concert and ambulance Current Severity: Gone Maximum Severity: Severe Worsened by: Patient reports strobe lights set her off Relieved by: Resolved on its own Associated Symptoms Associated Symptoms: Present complains of headache after head trauma from first episode Narrative Narrative: Patient 38-year-old woman presents by ambulance from concert that was at the [employer]. She had seizure apparently after looking at strobe lights. She was told by her neurologist take Ativan before going to any type of event. She apparently felt warm knew something was coming on. She lowered herself to the ground. states she became stiff. There was no postictal state. She reports incontinence. She apparently hit her head on the way down according to and complains of significant headache. She states her headache is a 8 out of 10. Also complains of right elbow pain that is a 6 out of 10. She denies double vision loss of vision. Denies ringing ears decreased hearing. No trouble speech or swallowing. She denies cardiac or respiratory symptoms. She denied diaphoresis or nausea. stated she was not diaphoretic or pale swab was called. She had 2 episodes and route. There was no postictal state. No treatment was administered. ER visit from November 17, [address] Sergio Ndiaye was reviewed. She was brought in for reported seizure at that time. She has had workup and told that she does not have a seizure disorder at that time. She described not feeling well lightheaded dizzy. She was walking to work fell to the ground and reported to have seizure activity for approximately 10 minutes. Patient presently complains of headache. She does not recall what occurred. Prior similar symptoms: Yes Recent Illness/Hospitalization: No PFSH PFSH Medical History History of renal disease Gastric reflux Asthma PONV (postoperative nausea and vomiting) Leg cramps History of ventricular septal defect Vomiting Seizure BPPV (benign paroxysmal positional vertigo) Difficult intravenous access Non-smoker Dysautonomia-like disorder Nephrolithiasis History of echocardiogram Wears glasses Anemia Easy bruising Restless legs Back pain Seizures Dietary restriction History of IBS Shortness of breath on exertion History of edema History of irregular heartbeat Hypoglycemia Anxiety Depression Migraines Kidney disease Hypertension Home Medications ?Medication ?Instructions ?Recorded ?Last Taken ?Type albuterol sulfate 90 mcg/actuation 1 - 2 puff inhalation Q6H PRN PRN 03/22/13 05/24/14 08:49 History aerosol inhaler (Ventolin HFA) Asthma trazodone 150 mg PO/SL QHS 12/31/20 04/17/24 History diphenhydramine 25 1 tab PO QHS 10/22/21 04/17/24 History mg-acetaminophen 500 mg tablet (Tylenol PM Extra Strength) spironolactone 25 mg tablet 25 mg PO QDAY 07/01/23 04/17/24 History hydrochlorothiazide 12.5 mg capsule 12.5 mg PO QDAY 10/05/23 04/17/24 History potassium citrate 10 mEq (1,080 10 meq PO TID 10/05/23 04/17/24 History mg) tablet,extended release ondansetron 4 mg disintegrating 4 mg PO Q8H PRN PRN Nausea #10 tabs 12/29/23 04/17/24 Rx tablet tizanidine 2 mg tablet 8 mg PO TID PRN PRN muscle 02/04/24 04/17/24 History spasticity pantoprazole 40 mg tablet,delayed 40 mg PO BID N/V, Gastritis #60 02/25/24 04/18/24 Rx release tabs buspirone 5 mg tablet 5 mg PO TID PRN anxiety 04/04/24 04/16/24 History ondansetron 4 mg disintegrating 4 mg PO Q6H PRN nausea and 08/24/24 Unknown Rx tablet vomiting #20 tabs gabapentin 300 mg capsule mg PO 10/25/24 Unknown History Allergy/AdvReac Type Severity Reaction Status Date / Time amoxicillin Allergy Severe hives Verified 08/24/24 11:16 baclofen Allergy Severe incontinenc Verified 08/24/24 11:16 e codeine Allergy Hives Verified 08/24/24 11:16 doxycycline Allergy HIVES Verified 10/25/24 22:12 metronidazole (From Flagyl) Allergy Shortness Verified 08/24/24 11:16 of breath morphine Allergy Hives Verified 08/24/24 11:16 shellfish derived Allergy Angioedema Verified 08/24/24 11:16 topiramate (From Topamax) Allergy Other Verified 08/24/24 11:16 tramadol AdvReac Severe seizures Verified 08/24/24 11:16 adhesive AdvReac Rash Verified 08/24/24 11:16 NSAIDS (Non-Steroidal AdvReac PT UNSURE Verified 08/24/24 11:16 Anti-Inflamma OF REACTION Family History Father No cardiac disease Mother No cardiac disease Other Arthritis Asthma Blood clot in vein Bowel disease Breast cancer CVA (cerebral vascular accident) Cervical cancer Depression Diabetes High cholesterol Hypertension Seizures Suicidal ideation Surgical History History of spinal fusion Hx of dilation and curettage History of radiofrequency ablation (RFA) of nerve of lumbar spine H/O: hysterectomy Hx of laparoscopy S/P removal of right ovary S/P tonsillectomy S/P breast lumpectomy Previous section Social History household members: spouse Smoking Status: Never smoker alcohol intake: current alcohol intake frequency: holidays/special occasions only substance use type: does not use what type of physical activity do you participate in: none ROS ROS ED Constitutional Constitutional ED: Denies chills, fever(s), subjective or sweats Eyes Eyes: Reports blurry vision bilateral; Denies change in vision or diplopia ENT ENT ED: Denies ear pain, rhinorrhea or sore throat Cardiovascular Cardiovascular: Denies chest pain or palpitations Respiratory/Chest Respiratory/Chest: Denies cough, dyspnea or dyspnea on exertion Gastrointestinal Gastrointestinal: Denies abdominal pain, diarrhea or vomiting Genitourinary Genitourinary ED: Reports LMP (females 10-50) Details: Comment: (Status post hysterectomy); Denies dysuria, hematuria or urinary frequency Musculoskeletal Musculoskeletal: Denies arthralgias, myalgias or neck pain Integumentary Denies rash Neurologic Neurologic: Reports headache(s); Denies paresthesias or weakness Psychiatric Psychiatric: Denies anxiety or depression Hematologic/Lymphatic Hematologic/Lymphatic: Reports systems reviewed and no addt'l complaints, except as documented EXAM Physical Exam Const Vital Signs: 10/25/24 22:12 10/25/24 22:12 10/26/24 00:10 Temperature 97.7 F L 97.7 F L Temperature Source Oral Oral Pulse Rate 91 87 91 Respiratory Rate 18 16 12 Blood Pressure 123/84 H 102/67 98/68 Blood Pressure Mean 97 78 78 Pulse Ox 100 100 100 Oxygen Delivery Method Room Air Room Air Room Air Positive well nourished and well developed General Appearance ED: well developed and NAD; Negative for cyanotic, diaphoretic or pallor HEENT Reports moist mucous membranes HEENT Narrative: Has atraumatic normocephalic. Ears normal. TMs normal. No clinical signs of a skull fracture. There is no septal deviation hematoma noted. No dental trauma. Posterior pharynx is normal. Eyes PERRL and EOMs intact bilaterally Eyes Narrative: There is no nystagmus. There is no visual field cut. General Eye ED: Negative for pale conjunctiva or scleral icterus Neck no lymphadenopathy, supple and no JVD General: Negative for tenderness Resp normal respiratory effort and clear to auscultation bilaterally Cardio regular rate, regular rhythm, S1 normal heart sound, S2 normal heart sound and no murmurs GI normal to inspection, nondistended, normoactive bowel sounds, non-tender, non-distended and no masses Extremity normal to inspection Neuro oriented x3, CN's II-XII intact bilaterally and no sensory deficits noted Neuro Narrative: There is no dysmetria. There is no clonus at the ankles. There is no Babinski sign noted either side. Sensorium / Orientation: alert Motor Exam: strength 5/5 throughout Psych mental status grossly normal Skin no rashes or lesions noted, no wounds and skin turgor normal General Skin Exam: elasticity normal; Negative for jaundice or pallor MDM MDM MDM Narrative Medical decision making narrative: Differential diagnosis would be conversion reaction (functional neurologic event), generalized tonic-clonic seizure, vasovagal episode with seizure like activity due to poor perfusion. In light of the fact that she complains of severe headache after head trauma we will obtain CT to rule out epidural hematoma, subdural hematoma, traumatic subarachnoid hemorrhage or intraparenchymal contusion. Basic metabolic panel was obtained to assess sodium as well as anion gap. Lactate was obtained which would be elevated if she had a true seizure. There is concern she had a seizure since she had incontinence. This may be an atypical seizure since she was not postictal. Prolactin level was obtained. When I was informed that this was a send out and not a true stat order patient was informed of the delay and apologize for the delay. She was instructed to contact her neurologist and no driving until seen by her neurologist. She was informed that the blurred vision is due to a concussion. Lab Data Attestation: I reviewed the patient's lab results. Lab results narrative: Patient has mild anemia. Basic metabolic panel is unremarked. Lactate elevated 3.2. Labs: Laboratory Results - last 24 hr 10/25/24 22:55 WBC 8.3 RBC 3.92 L Hgb 11.7 L Hct 36.2 L MCV 92.3 MCH 29.8 MCHC 32.3 RDW Std Deviation 42.5 RDW Coeff of [place] 12.6 Plt Count 211 MPV 10.1 Immature Gran % (Auto) 0.200 Neut % (Auto) 60.1 Lymph % (Auto) 30.1 [place] % (Auto) 7.3 Eos % (Auto) 1.5 Baso % (Auto) 0.8 Absolute Neuts (auto) 5.0 Absolute Lymphs (auto) 2.48 Nucleated RBC % 0 Sodium 141 Potassium 3.8 Chloride 104 Carbon Dioxide 22.3 Anion Gap 15 BUN 10 Creatinine 0.98 Estim Creat Clear Calc 76.66 Est GFR (MDRD) Non-Af 76 BUN/Creatinine Ratio 10.1 Glucose 87 Lactic Acid 3.2 H* Calcium 9.6 Radiography Diagnostic Testing: Clinical Impression(s) from Imaging Studies Brain CT 10/25/24 22:36 IMPRESSION: No acute intracranial abnormality. Reading Location: [facility] CT was reviewed by me. There is no evidence of intracranial bleed. Discharge Plan Triage Chief Complaint: Seizure ED Provider: Rosalio Hi Dx/Rx/DC Orders Clinical Impression: Observed seizure-like activity, Syncope and collapse, Concussion with loss of consciousness of 30 minutes or less, initial encounter, Acute post-traumatic headache, Acidosis, lactic Instructions: Discharge Instructions for Epilepsy, ED Concussion Prescriptions: No Action spironolactone 25 mg tablet 25 mg PO QDAY tizanidine 2 mg tablet 8 mg PO TID PRN PRN (Reason: muscle spasticity) hydrochlorothiazide 12.5 mg capsule 12.5 mg PO QDAY potassium citrate 10 mEq (1,080 mg) tablet extended release 10 meq PO TID pantoprazole 40 mg tablet,delayed release (DR/EC) 40 mg PO BID Qty: 60 1RF Rx Instructions: 40 mg orally once daily 30 minutes prior to breakfast and dinner albuterol sulfate [Ventolin HFA] 1 INHALER inhaler 1 - 2 puff inhalation Q6H PRN PRN (Reason: Asthma) trazodone 150 mg PO/SL QHS diphenhydramine-acetaminophen [Tylenol PM Extra Strength] 25-500 mg Tablet 1 tab PO QHS Rx Instructions: administer while awake buspirone 5 mg tablet 5 mg PO TID PRN (Reason: anxiety) ondansetron 4 mg tablet,disintegrating 4 mg PO Q6H PRN (Reason: nausea and vomiting) Qty: 20 0RF gabapentin 300 mg capsule PO ondansetron 4 mg tablet,disintegrating 4 mg PO Q8H PRN PRN (Reason: Nausea) Qty: 10 0RF Primary Care Provider: Winsome Cuevas Referrals: Winsome Cuevas NP-C [Primary Care Provider] - Activity Restrictions/Additional Instructions: 1. Recommend contacting your neurologist for outpatient workup. Print Language: Ukrainian Disposition Disposition: Home, Self Care
[2024-10-26 00:56] VITALS: BP 98/68; PULSE 79; RESP 16; TEMP 36.6; O2SAT 100
[2024-10-26 03:02] LABS: Reflex Lactate? Y
[2024-10-27 04:07] LABS: PROLACTIN 28.7 ng/mL (4.8-33.4)
== END 2024-10-26 00:57 | disposition home or self-care (01) ==
PROVIDERS: Emergency Provider Emergency Medicine; PCP Nurse Practitioner Family; Visit Provider Emergency Medicine
DX: R56.9 Unspecified convulsions (principal); M25.521 Pain in right elbow; E87.20 Acidosis, unspecified; W19.XXXA Unspecified fall, initial encounter; S06.0X1A Concussion with loss of consciousness of 30 minutes or less, initial encounter; I10 Essential (primary) hypertension; Z90.710 Acquired absence of both cervix and uterus; R55 Syncope and collapse; G44.319 Acute post-traumatic headache, not intractable; Z98.1 Arthrodesis status; K21.9 Gastro-esophageal reflux disease without esophagitis
CPT/HCPCS: 70450; 80048; 83605; 84146; 85025; 93005; 96374; 96375; 99285; A4216; J2405

== ENCOUNTER 2024-11-14 13:44 | Emergency (ER) | payer BC, SELFPAY ==
[2024-11-14 13:45] VITALS: BP 120/84; PULSE 109; RESP 22; TEMP 37.3; O2SAT 95; BMI 28.8
--- NOTE | 2024-11-14 14:11 | EDS_ITS ---
HPI History of Present Illness Chief Complaint: Seizure Detail of Chief Complaint: . Generalized tonic-clonic seizure Informant: patient Onset/Context/Timing Onset: Today and Hours Context: Sudden Onset Timing: Intermittent Quality: Reported tonic-clonic seizure Location: Presents from work Current Severity: Mild Maximum Severity: Severe (Patient has no recall.) Worsened by: Nothing per patient Relieved by: Nothing Associated Symptoms Associated Symptoms: Prior to seizure-like activity patient was warm, felt nauseous and was kevin Narrative Narrative: Patient is a 38-year-old female. She apparently has traumatic headache since seizure 20 days ago. She hit her head at that time. She has been seen by Dr. Gomez neurologist at [facility]. He did not place her on seizure medicine. Patient states she has had an upper respiratory tract infection since Thursday. She felt nauseous all day Thursday and Thursday. She has vomited twice today. She does have runny nose congestion slight cough. She has had no documented fever. 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 She reports that she was going to go home. She is told the staff she did not feel well and felt warm. She was nauseous. Apparently she vomited as well. She had seizure-like activity. She is present complaining of headache. She denies incontinence of urine or stool. She does report bilateral blurred vision. Denies trouble with speech or swallowing. She denies neck pain or neck stiffness. She presently denies cardiac symptoms. Denies shortness of breath or difficulty breathing. She still feels nauseous. She has no urologic symptoms. She has status post hysterectomy. 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 Prior similar symptoms: Yes Recent Illness/Hospitalization: Yes (Seen October 25, 2024 by me for seizure- like activity.) [facility] Medical History History of renal disease Gastric reflux Asthma PONV (postoperative nausea and vomiting) Leg cramps History of ventricular septal defect Vomiting Seizure BPPV (benign paroxysmal positional vertigo) Difficult intravenous access Non-smoker Dysautonomia-like disorder Nephrolithiasis History of echocardiogram Wears glasses Anemia Easy bruising Restless legs Back pain Seizures Dietary restriction History of IBS Shortness of breath on exertion History of edema History of irregular heartbeat Hypoglycemia Anxiety Depression Migraines Kidney disease Hypertension Medical History unable to obtain Home Medications Medication Instructions Recorded Last Taken Type albuterol sulfate 90 mcg/actuation 1 - 2 puff inhalati on Q6H PRN PRN 03/22/13 05/24/14 08:49 History aerosol inhaler (Ventolin HFA) Asthma trazodone 150 mg PO/SL QHS 12/31/20 History diphenhydramine 25 1 tab PO QHS 10/22/21 History mg-acetaminophen 500 mg tablet (Tylenol PM Extra Strength) spironolactone 25 mg tablet 25 mg PO QDAY 07/01/2304/12 History hydrochlorothiazide 12.5 mg capsule 12.5 mg PO QDAY 04/17/24 History potassium citrate 10 mEq (1,080 10 meq PO TID 10/05/23 04/17/24 History mg) tablet,extended release ondansetron 4 mg disintegrating 4 mg PO Q8H PRN PRN Na usea #10 tabs 12/29/23 04/17/24 Rx tablet tizanidine 2 mg tablet 8 mg PO TID PRN PRN muscle 1 04/06/23 04/17/24 History spasticity pantoprazole 40 mg tablet,delayed 40 mg PO BID N/V, Ga stritis #60 02/25/24 04/18/24 Rx release tabs buspirone 5 mg tablet 5 mg PO TID PRN anxiety 03/1904/16/24 History ondansetron 4 mg disintegrating 4 mg PO Q6H PRN nausea and 08/24/24 Unknown Rx tablet vomiting #20 tabs gabapentin 300 mg capsule mg PO 10/25/24 Unknown Histo ry Allergy/AdvReac Type Severity Reaction Status Date / Time amoxicillin Allergy Severe hives Verified 08/24/24 11:16 baclofen Allergy Severe incontinenc Verified 08/24/24 11:16 e codeine Allergy Hives Verified 08/24/24 11:16 doxycycline Allergy HIVES Verified 10/25/24 22:12 metronidazole (From Flagyl) Allergy Shortness Verified 08/24/24 11:16 of breath morphine Allergy Hives Verified 08/24/24 11:16 shellfish derived Allergy Angioedema Verified 08/24/24 11:16 topiramate (From Topamax) Allergy Other Verified 08/24/24 11:16 tramadol AdvReac Severe seizures Verified 08/24/24 11:16 adhesive AdvReac Rash Verified 08/24/24 11:16 NSAIDS (Non-Steroidal AdvReac PT UNSURE Verified 08/24/24 11:16 Anti-Inflamma OF REACTION Family History Father No cardiac disease Mother No cardiac disease Other Arthritis Asthma Blood clot in vein Bowel disease Breast cancer CVA (cerebral vascular accident) Cervical cancer Depression Diabetes High cholesterol Hypertension Seizures Suicidal ideation Family History unable to obtain Surgical History History of spinal fusion Hx of dilation and curettage History of radiofrequency ablation (RFA) of nerve of lumbar spine H/O: hysterectomy Hx of laparoscopy S/P removal of right ovary S/P tonsillectomy S/P breast lumpectomy Previous section Surgical History unable to obtain Social History household members: spouse Smoking Status: Never smoker alcohol intake: current alcohol intake frequency: holidays/special occasions only substance use type: does not use what type of physical activity do you participate in: none ROS ROS ED Constitutional Constitutional ED: Denies chills, fever(s), subjective, sweats or weight loss Eyes Eyes: Reports blurry vision bilateral; Denies change in vision or diplopia ENT ENT ED: Denies ear pain or rhinorrhea Cardiovascular Cardiovascular: Denies chest pain or palpitations Respiratory/Chest Respiratory/Chest: Denies cough, dyspnea or dyspnea on exertion Gastrointestinal Gastrointestinal: Reports nausea and vomiting; Denies abdominal pain, constipation, diarrhea or melena Genitourinary Genitourinary ED: Reports LMP (females 10-50) Details: Comment: (Status post hysterectomy.); Denies dysuria, hematuria or urinary frequency Musculoskeletal Musculoskeletal: Denies arthralgias, back pain or myalgias Integumentary Denies rash Neurologic Neurologic: Reports headache(s); Denies paresthesias or weakness Psychiatric Psychiatric: Denies anxiety or depression Endocrine Endocrinology: Denies cold intolerance or heat intolerance Hematologic/Lymphatic Hematologic/Lymphatic: Reports systems reviewed and no addt'l complaints, except as documented EXAM Physical Exam Const Vital Signs: 11/14/24 13:45 Temperature 99.2 F H Temperature Source Axillary Pulse Rate 109 H Respiratory Rate 22 H Blood Pressure 120/84 H Blood Pressure Mean 96 Pulse Ox 95 Oxygen Delivery Method Room Air Positive well nourished General Appearance ED: Negative for pallor HEENT Reports moist mucous membranes HEENT Narrative: Nares patent no discharge. Posterior pharynx erythema or exudate. Uvula midline. No deviation tongue or protrusion. Negative for trauma or tenderness Eyes PERRL and EOMs intact bilaterally Eyes Narrative: There is no nystagmus. General Eye ED: Negative for pale conjunctiva or scleral icterus Neck no lymphadenopathy, supple and no JVD Chest Wall inspection of chest normal and palpation of chest normal Resp normal respiratory effort and clear to auscultation bilaterally Cardio regular rate, regular rhythm, S1 normal heart sound, S2 normal heart sound and no murmurs GI normal to inspection, nondistended, normoactive bowel sounds, non-tender, non- distended and no masses; Negative for hepatosplenomegaly Extremity normal to inspection General Extremety ED: Negative for edema or tenderness General Extremity: Negative for edema Neuro oriented x3, CN's II-XII intact bilaterally and no sensory deficits noted Neuro Narrative: There is no clonus or Babinski sign. Sensorium / Orientation: alert Motor Exam: strength 5/5 throughout Psych mental status grossly normal Skin no rashes or lesions noted, no wounds and skin turgor normal General Skin Exam: elasticity normal; Negative for jaundice or pallor MDM MDM MDM Narrative Medical decision making narrative: With patient reporting illness nausea vomiting and vagal like activities prior to seizure that this may be seizure due to a vasovagal episode. This could be a posttraumatic seizure. Since patient was scanned on the ninth and EKG at the ninth these tests were not repeated since there is no history of trauma and the EKG that was obtained on the ninth revealed no concern for QT prolongation or EKG changes to suggest preexcitation syndrome etc. History & Record Review Additional record(s) reviewed:: Prior ED visit and Prior labs Discharge Plan Triage Chief Complaint: Seizure ED Provider: Rosalio Hi Dx/Rx/DC Orders Prescriptions: No Action spironolactone 25 mg tablet 25 mg PO QDAY tizanidine 2 mg tablet 8 mg PO TID PRN PRN (Reason: muscle spasticity) hydrochlorothiazide 12.5 mg capsule 12.5 mg PO QDAY potassium citrate 10 mEq (1,080 mg) tablet extended release 10 meq PO TID pantoprazole 40 mg tablet,delayed release (DR/EC) 40 mg PO BID Qty: 60 1RF Rx Instructions: 40 mg orally once daily 30 minutes prior to breakfast and dinner albuterol sulfate [Ventolin HFA] 1 INHALER inhaler 1 - 2 puff inhalation Q6H PRN PRN (Reason: Asthma) trazodone 150 mg PO/SL QHS diphenhydramine-acetaminophen [Tylenol PM Extra Strength] 25-500 mg Tablet 1 tab PO QHS Rx Instructions: administer while awake buspirone 5 mg tablet 5 mg PO TID PRN (Reason: anxiety) ondansetron 4 mg tablet,disintegrating 4 mg PO Q6H PRN (Reason: nausea and vomiting) Qty: 20 0RF gabapentin 300 mg capsule PO ondansetron 4 mg tablet,disintegrating 4 mg PO Q8H PRN PRN (Reason: Nausea) Qty: 10 0RF Primary Care Provider: Winsome Cuevas Referrals: Winsome Cuevas, [employer] [Primary Care Provider, Family Practice] Print Language: Maltese
--- NOTE | 2024-11-14 14:11 | EX.ED.DYSGE1 ---
HPI History of Present Illness Chief Complaint: Seizure Detail of Chief Complaint: . Generalized tonic-clonic seizure Informant: patient Onset/Context/Timing Onset: Today and Hours Context: Sudden Onset Timing: Intermittent Quality: Reported tonic-clonic seizure Location: Presents from work Current Severity: Mild Maximum Severity: Severe (Patient has no recall.) Worsened by: Nothing per patient Relieved by: Nothing Associated Symptoms Associated Symptoms: Prior to seizure-like activity patient was warm, felt nauseous and was kevin Narrative Narrative: Patient is a 38-year-old female. She apparently has traumatic headache since seizure 20 days ago. She hit her head at that time. She has been seen by Dr. Gomez neurologist at [facility]. He did not place her on seizure medicine. Patient states she has had an upper respiratory tract infection since Thursday. She felt nauseous all day Thursday and Thursday. She has vomited twice today. She does have runny nose congestion slight cough. She has had no documented fever. 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 She reports that she was going to go home. She is told the staff she did not feel well and felt warm. She was nauseous. Apparently she vomited as well. She had seizure-like activity. She is present complaining of headache. She denies incontinence of urine or stool. She does report bilateral blurred vision. Denies trouble with speech or swallowing. She denies neck pain or neck stiffness. She presently denies cardiac symptoms. Denies shortness of breath or difficulty breathing. She still feels nauseous. She has no urologic symptoms. She has status post hysterectomy. 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 Prior similar symptoms: Yes Recent Illness/Hospitalization: Yes (Seen October 25, 2024 by me for seizure-like activity.) [facility] Medical History History of renal disease Gastric reflux Asthma PONV (postoperative nausea and vomiting) Leg cramps History of ventricular septal defect Vomiting Seizure BPPV (benign paroxysmal positional vertigo) Difficult intravenous access Non-smoker Dysautonomia-like disorder Nephrolithiasis History of echocardiogram Wears glasses Anemia Easy bruising Restless legs Back pain Seizures Dietary restriction History of IBS Shortness of breath on exertion History of edema History of irregular heartbeat Hypoglycemia Anxiety Depression Migraines Kidney disease Hypertension Medical History unable to obtain Home Medications Medication Instructions Recorded Last Taken Type albuterol sulfate 90 mcg/actuation 1 - 2 puff inhalation Q6H PRN PRN 03/22/13 11/13/24 History aerosol inhaler (Ventolin HFA) Asthma spironolactone 25 mg tablet 25 mg PO QDAY 07/01/23 11/13/24 History potassium citrate 10 mEq (1,080 10 meq PO TID 10/05/23 11/13/24 History mg) tablet,extended release pantoprazole 40 mg tablet,delayed 40 mg PO BID N/V, Gastritis #60 02/25/24 11/13/24 Rx release tabs ondansetron 4 mg disintegrating 4 mg PO Q6H PRN nausea and 08/24/24 Unknown Rx tablet vomiting #20 tabs acetaminophen 500 mg capsule 1,000 mg PO Q6H PRN fever or pain 11/14/24 11/14/24 History buspirone 7.5 mg tablet 7.5 mg PO TID PRN PRN anxiety 11/14/24 11/11/24 History gabapentin 600 mg tablet 1,200 mg PO TID 11/14/24 11/14/24 History hydrochlorothiazide 25 mg tablet 25 mg PO DAILY 11/14/24 11/13/24 History methocarbamol 500 mg tablet 500 mg PO 4X/DAY 11/14/24 11/13/24 History rizatriptan 10 mg tablet 10 mg PO PRN 11/14/24 Unknown History tamsulosin 0.4 mg capsule 0.4 mg PO DAILY 11/14/24 11/13/24 History tizanidine 4 mg capsule 8 mg PO Q8H PRN PRN muscle spasm 11/14/24 11/13/24 History trazodone 150 mg tablet 150 mg PO QPM 11/14/24 11/13/24 History Allergy/AdvReac Type Severity Reaction Status Date / Time amoxicillin Allergy Severe hives Verified 11/14/24 14:22 baclofen Allergy Severe incontinenc Verified 11/14/24 14:22 e codeine Allergy Hives Verified 11/14/24 14:22 doxycycline Allergy HIVES Verified 11/14/24 14:22 metronidazole (From Flagyl) Allergy Shortness Verified 11/14/24 14:22 of breath morphine Allergy Hives Verified 11/14/24 14:22 shellfish derived Allergy Angioedema Verified 11/14/24 14:22 topiramate (From Topamax) Allergy Other Verified 11/14/24 14:22 tramadol AdvReac Severe seizures Verified 11/14/24 14:22 adhesive AdvReac Rash Verified 11/14/24 14:22 NSAIDS (Non-Steroidal AdvReac PT UNSURE Verified 11/14/24 14:22 Anti-Inflamma OF REACTION Family History Father No cardiac disease Mother No cardiac disease Other Arthritis Asthma Blood clot in vein Bowel disease Breast cancer CVA (cerebral vascular accident) Cervical cancer Depression Diabetes High cholesterol Hypertension Seizures Suicidal ideation Family History unable to obtain Surgical History History of spinal fusion Hx of dilation and curettage History of radiofrequency ablation (RFA) of nerve of lumbar spine H/O: hysterectomy Hx of laparoscopy S/P removal of right ovary S/P tonsillectomy S/P breast lumpectomy Previous section Surgical History unable to obtain Social History household members: spouse Smoking Status: Never smoker alcohol intake: current alcohol intake frequency: holidays/special occasions only substance use type: does not use what type of physical activity do you participate in: none ROS ROS ED Constitutional Constitutional ED: Denies chills, fever(s), subjective, sweats or weight loss Eyes Eyes: Reports blurry vision bilateral; Denies change in vision or diplopia ENT ENT ED: Denies ear pain or rhinorrhea Cardiovascular Cardiovascular: Denies chest pain or palpitations Respiratory/Chest Respiratory/Chest: Denies cough, dyspnea or dyspnea on exertion Gastrointestinal Gastrointestinal: Reports nausea and vomiting; Denies abdominal pain, constipation, diarrhea or melena Genitourinary Genitourinary ED: Reports LMP (females 10-50) Details: Comment: (Status post hysterectomy.); Denies dysuria, hematuria or urinary frequency Musculoskeletal Musculoskeletal: Denies arthralgias, back pain or myalgias Integumentary Denies rash Neurologic Neurologic: Reports headache(s); Denies paresthesias or weakness Psychiatric Psychiatric: Denies anxiety or depression Endocrine Endocrinology: Denies cold intolerance or heat intolerance Hematologic/Lymphatic Hematologic/Lymphatic: Reports systems reviewed and no addt'l complaints, except as documented EXAM Physical Exam Const Vital Signs: 11/14/24 13:45 11/14/24 14:15 11/14/24 15:04 Temperature 99.2 F H 98.4 F Temperature Source Axillary Oral Pulse Rate 109 H 80 83 Respiratory Rate 22 H 19 H 16 Blood Pressure 120/84 H 133/41 H 119/71 Blood Pressure Mean 96 71 87 Pulse Ox 95 98 98 Oxygen Delivery Method Room Air Room Air Room Air 11/14/24 16:16 Temperature Temperature Source Pulse Rate 70 Respiratory Rate 14 Blood Pressure 107/62 Blood Pressure Mean 77 Pulse Ox 98 Oxygen Delivery Method Room Air Positive well nourished General Appearance ED: Negative for pallor HEENT Reports moist mucous membranes HEENT Narrative: Nares patent no discharge. Posterior pharynx erythema or exudate. Uvula midline. No deviation tongue or protrusion. Negative for trauma or tenderness Eyes PERRL and EOMs intact bilaterally Eyes Narrative: There is no nystagmus. General Eye ED: Negative for pale conjunctiva or scleral icterus Neck no lymphadenopathy, supple and no JVD Chest Wall inspection of chest normal and palpation of chest normal Resp normal respiratory effort and clear to auscultation bilaterally Cardio regular rate, regular rhythm, S1 normal heart sound, S2 normal heart sound and no murmurs GI normal to inspection, nondistended, normoactive bowel sounds, non-tender, non-distended and no masses; Negative for hepatosplenomegaly Extremity normal to inspection General Extremety ED: Negative for edema or tenderness General Extremity: Negative for edema Neuro oriented x3, CN's II-XII intact bilaterally and no sensory deficits noted Neuro Narrative: There is no clonus or Babinski sign. Sensorium / Orientation: alert Motor Exam: strength 5/5 throughout Psych mental status grossly normal Skin no rashes or lesions noted, no wounds and skin turgor normal General Skin Exam: elasticity normal; Negative for jaundice or pallor MDM MDM MDM Narrative Medical decision making narrative: With patient reporting illness nausea vomiting and vagal like activities prior to seizure that this may be seizure due to a vasovagal episode. This could be a posttraumatic seizure. Since patient was scanned on the and EKG at the th these tests were not repeated since there is no history of trauma and the EKG that was obtained on the ninth revealed no concern for QT prolongation or EKG changes to suggest preexcitation syndrome etc. History & Record Review Additional record(s) reviewed:: Prior ED visit and Prior labs Lab Data Attestation: I reviewed the patient's lab results. Lab results narrative: CBC is unremarkable. Basic metabolic panel is remarkable for high anion gap acidosis. This would be consistent with a seizure. Since significant other is concerned that this happened several times and is happening more than 2 times this past month will refer to cardiology for table tilt test. Spoke with Dr. Porter. He will make arrangements. Labs: Laboratory Results - last 24 hr 11/14/24 13:55 WBC 8.2 RBC 4.49 Hgb 13.4 Hct 42.4 MCV 94.4 MCH 29.8 MCHC 31.6 L RDW Std Deviation 44.3 H RDW Coeff of [place] 12.8 Plt Count 240 MPV 10.5 Immature Gran % (Auto) 0.500 Neut % (Auto) 58.7 Lymph % (Auto) 32.5 [place] % (Auto) 5.8 Eos % (Auto) 1.5 Baso % (Auto) 1.0 Absolute Neuts (auto) 4.8 Absolute Lymphs (auto) 2.67 Nucleated RBC % 0 Sodium 138 Potassium 3.9 Chloride 105 Carbon Dioxide 14.0 L Anion Gap 19 H BUN 13 Creatinine 0.97 Estim Creat Clear Calc 79.35 Est GFR (MDRD) Non-Af 77 BUN/Creatinine Ratio 13.4 Glucose 75 Calcium 8.9 Management Discussion w/another healthcare provider: Aircraft Maintenance Manager (Spoke with Dr. Porter on-call for cardiology to make arrangements for table tilt test) Discharge Plan Triage Chief Complaint: Seizure ED Provider: Rosalio Hi Dx/Rx/DC Orders Clinical Impression: Syncope and collapse, Seizure-like activity, High anion gap metabolic acidosis Instructions: Tilt Table Testing, ED Fainting, Uncertain Cause Prescriptions: No Action spironolactone 25 mg tablet 25 mg PO QDAY potassium citrate 10 mEq (1,080 mg) tablet extended release 10 meq PO TID pantoprazole 40 mg tablet,delayed release (DR/EC) 40 mg PO BID Qty: 60 1RF Rx Instructions: 40 mg orally once daily 30 minutes prior to breakfast and dinner albuterol sulfate [Ventolin HFA] 1 INHALER inhaler 1 - 2 puff inhalation Q6H PRN PRN (Reason: Asthma) ondansetron 4 mg tablet,disintegrating 4 mg PO Q6H PRN (Reason: nausea and vomiting) Qty: 20 0RF gabapentin 600 mg tablet 1,200 mg PO TID rizatriptan 10 mg tablet 10 mg PO PRN trazodone 150 mg tablet 150 mg PO QPM hydrochlorothiazide 25 mg tablet 25 mg PO DAILY tizanidine 4 mg capsule 8 mg PO Q8H PRN PRN (Reason: muscle spasm) methocarbamol 500 mg tablet 500 mg PO 4X/DAY tamsulosin 0.4 mg capsule 0.4 mg PO DAILY buspirone 7.5 mg tablet 7.5 mg PO TID PRN PRN (Reason: anxiety) acetaminophen 500 mg capsule 1,000 mg PO Q6H PRN (Reason: fever or pain) Primary Care Provider: Winsome Cuevas Referrals: Von Porter MD [Med Staff - Active Staff, Cardiology] - As soon as possible Winsome Cuevas, TRANSITIONS MANAGER-C [Primary Care Provider, Family Practice] - 1-2 Weeks Activity Restrictions/Additional Instructions: Recommend contacting your neurologist after you are seen by cardiology, Dr. Porter especially if your table tilt test is negative. Print Language: Portuguese Disposition Disposition: Home, Self Care
[2024-11-14 14:15] VITALS: BP 133/41; PULSE 80; RESP 19; TEMP 36.9; O2SAT 98
[2024-11-14 14:19] LABS: Hematocrit 42.4 % (37-47); Hemoglobin 13.4 g/dL (12.0-15.0); Immature Granulocytes Count 0.040 X10^3/uL (0.0-0.0); Mean Corp Hgb Conc 31.6 g/dL (32-36); Mean Corpuscular Volume 94.4 fL (81-99); Mean Platelet Vol. 10.5 fl (6.2-12.0); NRBC Flagged by Analyzer 0 % (0-5); Platelet Count 240 K/mm3 (150-450); RBC Distribution Width CV 12.8 % (11.6-14.6); RBC Distribution Width SD 44.3 fl (35.1-43.9); Red Blood Count 4.49 M/mm3 (4.2-5.4); White Blood Count 8.2 K/mm3 (4.4-11.0)
[2024-11-14 15:04] VITALS: BP 119/71; PULSE 83; RESP 16; O2SAT 98
[2024-11-14 15:09] LABS: Anion Gap 19 (5-15); BUN 13 mg/dL (4-19); BUN/Creat Ratio 13.4 RATIO (10-20); Calcium,Total 8.9 mg/dL (7.6-11.0); Carbon Dioxide 14.0 mmol/L (21.0-32.0); Chloride 105 mmol/L (98-108); Estimated Creatinine Clearance 79.35 ml/min (50-250); Glucose 75 mg/dL (70-99); Potassium 3.9 mmol/L (3.3-5.1)
[2024-11-14 16:16] VITALS: BP 107/62; PULSE 70; RESP 14; O2SAT 98
[2024-11-14 16:46] VITALS: BP 107/60; PULSE 80; RESP 14; TEMP 36.4; O2SAT 100
== END 2024-11-14 16:49 | disposition home or self-care (01) ==
PROVIDERS: Emergency Provider Emergency Medicine; PCP Nurse Practitioner Family; Visit Provider Emergency Medicine
DX: R55 Syncope and collapse (principal); R56.9 Unspecified convulsions; Z90.710 Acquired absence of both cervix and uterus; R11.0 Nausea; E87.20 Acidosis, unspecified; G44.309 Post-traumatic headache, unspecified, not intractable; I10 Essential (primary) hypertension; Z98.1 Arthrodesis status
CPT/HCPCS: 80048; 85025; 99285

== ENCOUNTER 2024-12-15 13:45 | Emergency (ER) | payer BC, SELFPAY ==
[2024-12-15] VITALS (12 sets, daily range): BP systolic 104–138; BP diastolic 61–82; PULSE 89–158; RESP 14–40; TEMP 36.1–36.4; O2SAT 97–100; BMI 26.9
[2024-12-15] MEDS: Albuterol 2.5 MG/3 ML VIAL.NEB. INHALATION (14:04)
[2024-12-15] MEDS: 0.9% Normal Saline (1000mL) 1,000 ML 999 ML IV (14:10)
[2024-12-15] MEDS: DiphenhydrAMINE 50 MG/ML Syringe IV (14:12)
[2024-12-15] MEDS: Epi Pen (EQUIV) 0.3 MG Syringe IM ×2 (14:12→14:13)
--- NOTE | 2024-12-15 14:31 | EKG12_ITS ---
Test Reason : ALLERGIC REACTION
--- NOTE | 2024-12-15 14:31 | RAD_ITS ---
PROCEDURE: RAD/Chest 1 View (Portable)
[2024-12-15 15:08] LABS: Hematocrit 37.2 % (37-47); Hemoglobin 12.2 g/dL (12.0-15.0); Immature Granulocytes Count 0.020 X10^3/uL (0.0-0.0); Mean Corp Hgb Conc 32.8 g/dL (32-36); Mean Corpuscular Volume 91.0 fL (81-99); Mean Platelet Vol. 10.3 fl (6.2-12.0); NRBC Flagged by Analyzer 0 % (0-5); Platelet Count 231 K/mm3 (150-450); RBC Distribution Width CV 12.9 % (11.6-14.6); RBC Distribution Width SD 42.4 fl (35.1-43.9); Red Blood Count 4.09 M/mm3 (4.2-5.4); White Blood Count 9.7 K/mm3 (4.4-11.0)
[2024-12-15 15:24] LABS: Anion Gap 15 (5-15); BUN 15 mg/dL (4-19); BUN/Creat Ratio 16.1 RATIO (10-20); Calcium,Total 8.9 mg/dL (7.6-11.0); Carbon Dioxide 18.0 mmol/L (21.0-32.0); Chloride 105 mmol/L (98-108); Estimated Creatinine Clearance 77.75 ml/min (50-250); Glucose 141 mg/dL (70-99); Potassium 3.7 mmol/L (3.3-5.1)
--- NOTE | 2024-12-15 15:46 | EX.ED.DYSGE1 ---
HPI History of Present Illness Chief Complaint: Allergic Reaction Narrative Narrative: Patient is a 39-year-old female presenting to the emergency department due to concern for allergic reaction. Patient has a past medical history of seizures, conversion disorder, nephrolithiasis, anemia and multiple allergies in the past. Patient states that she ate chicken around noon and then half hour prior to arrival she developed difficulty breathing and coughing. She is endorsing urticaria, shortness of breath, difficulty breathing, chest pain and nausea. States she has never had to be intubated for an allergic reaction. States she felt well before eating the chicken. No medications given prior to arrival. [facility] Medical History History of renal disease Gastric reflux Asthma PONV (postoperative nausea and vomiting) Leg cramps History of ventricular septal defect Vomiting Seizure BPPV (benign paroxysmal positional vertigo) Difficult intravenous access Non-smoker Dysautonomia-like disorder Nephrolithiasis History of echocardiogram Wears glasses Anemia Easy bruising Restless legs Back pain Seizures Dietary restriction History of IBS Shortness of breath on exertion History of edema History of irregular heartbeat Hypoglycemia Anxiety Depression Migraines Kidney disease Hypertension Home Medications ?Medication ?Instructions ?Recorded ?Last Taken ?Type albuterol sulfate 90 mcg/actuation 1 - 2 puff inhalation Q6H PRN PRN 03/22/13 11/13/24 History aerosol inhaler (Ventolin HFA) Asthma spironolactone 25 mg tablet 25 mg PO QDAY 07/01/23 11/13/24 History potassium citrate 10 mEq (1,080 10 meq PO TID 10/05/23 11/13/24 History mg) tablet,extended release pantoprazole 40 mg tablet,delayed 40 mg PO BID N/V, Gastritis #60 02/25/24 11/13/24 Rx release tabs ondansetron 4 mg disintegrating 4 mg PO Q6H PRN nausea and 08/24/24 Unknown Rx tablet vomiting #20 tabs acetaminophen 500 mg capsule 1,000 mg PO Q6H PRN fever or pain 11/14/24 11/14/24 History buspirone 7.5 mg tablet 7.5 mg PO TID PRN PRN anxiety 11/14/24 11/11/24 History gabapentin 600 mg tablet 1,200 mg PO TID 11/14/24 11/14/24 History hydrochlorothiazide 25 mg tablet 25 mg PO DAILY 11/14/24 11/13/24 History methocarbamol 500 mg tablet 500 mg PO 4X/DAY 11/14/24 11/13/24 History rizatriptan 10 mg tablet 10 mg PO PRN 11/14/24 Unknown History tamsulosin 0.4 mg capsule 0.4 mg PO DAILY 11/14/24 11/13/24 History tizanidine 4 mg capsule 8 mg PO Q8H PRN PRN muscle spasm 11/14/24 11/13/24 History trazodone 150 mg tablet 150 mg PO QPM 11/14/24 11/13/24 History Allergy/AdvReac Type Severity Reaction Status Date / Time amoxicillin Allergy Severe hives Verified 12/15/24 13:56 baclofen Allergy Severe incontinenc Verified 12/15/24 13:56 e codeine Allergy Hives Verified 12/15/24 13:56 doxycycline Allergy HIVES Verified 12/15/24 13:56 metronidazole (From Flagyl) Allergy Shortness Verified 12/15/24 13:56 of breath morphine Allergy Hives Verified 12/15/24 13:56 shellfish derived Allergy Angioedema Verified 12/15/24 13:56 topiramate (From Topamax) Allergy Other Verified 12/15/24 13:56 tramadol AdvReac Severe seizures Verified 12/15/24 13:56 adhesive AdvReac Rash Verified 12/15/24 13:56 NSAIDS (Non-Steroidal AdvReac PT UNSURE Verified 12/15/24 13:56 Anti-Inflamma OF REACTION Family History Father No cardiac disease Mother No cardiac disease Other Arthritis Asthma Blood clot in vein Bowel disease Breast cancer CVA (cerebral vascular accident) Cervical cancer Depression Diabetes High cholesterol Hypertension Seizures Suicidal ideation Surgical History History of spinal fusion Hx of dilation and curettage History of radiofrequency ablation (RFA) of nerve of lumbar spine H/O: hysterectomy Hx of laparoscopy S/P removal of right ovary S/P tonsillectomy S/P breast lumpectomy Previous section Social History household members: spouse Smoking Status: Never smoker alcohol intake: current alcohol intake frequency: holidays/special occasions only substance use type: does not use what type of physical activity do you participate in: none ROS ROS ED ROS Narrative see HPI EXAM Physical Exam Narrative Exam Narrative: Vital signs: Reviewed General: Alert and orientedx3. In acute distress. HEENT: Head is normocephalic and atraumatic, sinuses nontender, pupils equal round and reactive. Nares are patent. Oropharynx and throat exams normal. There is no swelling or erythema of the lips, tongue, oropharynx. Uvula midline. Speaking in complete sentences. Neck: Supple without lymphadenopathy nontender Cardiovascular: Tachycardic rate and regular rhythm, no murmurs. No rubs or gallops. Normal S1 and S2 Respiratory: Tachypneic. Clear to auscultation bilaterally. No wheezes, rales, rhonchi Abdominal: Soft and nontender. Normal bowel sounds. No guarding or rebound. Nonsurgical abdomen Extremities: No tenderness. No bruising. Normal range of motion. Normal sensation. Skin: No rash or redness. The rest of the physical exam is unremarkable Const Vital Signs: 12/15/24 13:45 12/15/24 13:45 12/15/24 13:49 Temperature 97.6 F L Temperature Source Temporal Pulse Rate 144 H 158 H Respiratory Rate 40 H 38 H Respiratory Pattern Tachypnea Blood Pressure 108/64 Blood Pressure Mean 78 Pulse Ox 100 100 Oxygen Delivery Method Non-Rebreather Room Air Oxygen Flow Rate (L/min) 10 12/15/24 14:16 12/15/24 14:30 12/15/24 15:00 Temperature Temperature Source Pulse Rate 122 H 124 H 102 H Respiratory Rate 22 H 30 H 28 H Respiratory Pattern Blood Pressure 138/82 H 119/61 117/75 Blood Pressure Mean 100 80 89 Pulse Ox 100 100 99 Oxygen Delivery Method Non-Rebreather Non-Rebreather Oxygen Flow Rate (L/min) 12/15/24 15:01 12/15/24 15:49 12/15/24 16:00 Temperature Temperature Source Pulse Rate 105 H 89 Respiratory Rate 26 H 16 Respiratory Pattern Blood Pressure 117/69 104/69 Blood Pressure Mean 85 80 Pulse Ox 100 99 98 Oxygen Delivery Method Room Air Nasal Cannula Nasal Cannula Oxygen Flow Rate (L/min) 2 2 12/15/24 16:30 Temperature Temperature Source Pulse Rate Respiratory Rate Respiratory Pattern Blood Pressure Blood Pressure Mean Pulse Ox 98 Oxygen Delivery Method Room Air Oxygen Flow Rate (L/min) MDM MDM MDM Narrative Medical decision making narrative: Patient is a 39-year-old female presenting to the emergency department for concern of an allergic reaction. Patient was seen and examined immediately on arrival. Patient endorsing shortness of breath, chest pain, nausea and urticaria. Patient was tachypneic and tachycardic. She had no stridor on exam, but was actively making grunting noises. She was saturating well in the high 90s on room air. Due to patient's visible distress she was placed on a nonrebreather. She was given 1 dose of IM epi. 125 mg Solu-Medrol and 50 mg Benadryl given through her IV. Fluid bolus hung. Patient appears to be in visible distress however physical exam is not consistent with her clinical picture. She has no urticaria on exam. She has no wheezing on lung exam. She has no evidence of intraoral or posterior pharynx swelling or erythema. After 5 minutes, patient had no improvement in symptoms. An additional IM epi was given. Patient was monitored very closely for any signs of airway compromise. Chest x-ray was reviewed and shows no pneumothorax, pleural effusion, opacity. Radiology read in agreement. Patient was reevaluated and is now resting comfortably in bed. Patient is on 2 L nasal cannula saturating 99%. Again she has no evidence of urticaria, wheezing, has had no vomiting and no evidence of angioedema. I explained to her that we will watch her for 4 hours post IM epi. Anticipate that she will likely be able to be discharged home with prednisone, Benadryl and Pepcid for the next week. She will be discharged with epi pens as well with allergy follow up. Patient signed out to Dr. Gross pending placement of observation and likely discharge. Clinical impression: Allergic reaction History & Record Review Discussion w/independent historian: Patient Additional record(s) reviewed:: Prior outpatient record Lab Data Attestation: I reviewed the patient's lab results. Labs: Laboratory Results - last 24 hr 12/15/24 14:50 WBC 9.7 RBC 4.09 L Hgb 12.2 Hct 37.2 MCV 91.0 MCH 29.8 MCHC 32.8 RDW Std Deviation 42.4 RDW Coeff of [place] 12.9 Plt Count 231 MPV 10.3 Immature Gran % (Auto) 0.200 Neut % (Auto) 58.1 Lymph % (Auto) 35.4 [place] % (Auto) 4.7 Eos % (Auto) 0.9 Baso % (Auto) 0.7 Absolute Neuts (auto) 5.6 Absolute Lymphs (auto) 3.44 Nucleated RBC % 0 Sodium 138 Potassium 3.7 Chloride 105 Carbon Dioxide 18.0 L Anion Gap 15 BUN 15 Creatinine 0.95 Estim Creat Clear Calc 77.75 Est GFR (MDRD) Non-Af 78 BUN/Creatinine Ratio 16.1 Glucose 141 H Calcium 8.9 Radiography Diagnostic Testing: Clinical Impression(s) from Imaging Studies Chest X-Ray 12/15/24 14:31 IMPRESSION: Examination limited by hypoinflation, but there is a suggestion of mild interstitial pulmonary edema. No pleural effusion or pneumothorax is noted. The cardiomediastinal silhouette is stable, without evidence of cardiomegaly. No acute osseous change is seen. Reading Location: [place] [id number] Discharge Plan Triage Chief Complaint: Allergic Reaction ED Provider: Dotty García Dx/Rx/DC Orders Prescriptions: No Action spironolactone 25 mg tablet 25 mg PO QDAY potassium citrate 10 mEq (1,080 mg) tablet extended release 10 meq PO TID pantoprazole 40 mg tablet,delayed release (DR/EC) 40 mg PO BID Qty: 60 1RF Rx Instructions: 40 mg orally once daily 30 minutes prior to breakfast and dinner albuterol sulfate [Ventolin HFA] 1 INHALER inhaler 1 - 2 puff inhalation Q6H PRN PRN (Reason: Asthma) ondansetron 4 mg tablet,disintegrating 4 mg PO Q6H PRN (Reason: nausea and vomiting) Qty: 20 0RF gabapentin 600 mg tablet 1,200 mg PO TID rizatriptan 10 mg tablet 10 mg PO PRN trazodone 150 mg tablet 150 mg PO QPM hydrochlorothiazide 25 mg tablet 25 mg PO DAILY tizanidine 4 mg capsule 8 mg PO Q8H PRN PRN (Reason: muscle spasm) methocarbamol 500 mg tablet 500 mg PO 4X/DAY tamsulosin 0.4 mg capsule 0.4 mg PO DAILY buspirone 7.5 mg tablet 7.5 mg PO TID PRN PRN (Reason: anxiety) acetaminophen 500 mg capsule 1,000 mg PO Q6H PRN (Reason: fever or pain) Primary Care Provider: Winsome Cuevas Referrals: Winsome Cuevas, EDITORIAL DIRECTOR-C [Primary Care Provider, Family Practice] Print Language: Dutch
== END 2024-12-15 18:24 | disposition home or self-care (01) ==
PROVIDERS: Emergency Provider Student in an Organized Health Care Education/Training Program; PCP Nurse Practitioner Family; Visit Provider Student in an Organized Health Care Education/Training Program
DX: T78.40XA Allergy, unspecified, initial encounter (principal); R07.9 Chest pain, unspecified; I10 Essential (primary) hypertension; R11.0 Nausea; K21.9 Gastro-esophageal reflux disease without esophagitis; J45.909 Unspecified asthma, uncomplicated; L50.0 Allergic urticaria
CPT/HCPCS: 71045; 80048; 85025; 93005; 94640; 96361; 96374; 96375; 99284; A4216

== ENCOUNTER 2024-12-27 11:14 | Emergency (ER) | payer BC, SELFPAY ==
[2024-12-27 11:15] VITALS: BP 160/112; PULSE 136; RESP 47; TEMP 36.6; O2SAT 100; BMI 27.9
--- NOTE | 2024-12-27 11:18 | EX.ED.DYSGE1 ---
HPI History of Present Illness Chief Complaint: Seizure Informant: spouse/S.O. Onset/Context/Timing Onset: Today Context: Sudden Onset Timing: Continuous Quality: Tonic-clonic Location: Generalized Worsened by: Low blood sugars Relieved by: Nothing Narrative Narrative: Patient presents with a seizure that occurred today. Patient was having an outpatient test hospital and developed a seizure. Patient history of seizure disorder. states that the patient's seizures are triggered by low blood sugars. Patient was given. Versed which helped with her seizure. Patient was also given a bolus of D50. Patient was still having seizure activity here in the emergency department. Patient was given a dose of Ativan. [facility] Medical History History of renal disease Gastric reflux Asthma PONV (postoperative nausea and vomiting) Leg cramps History of ventricular septal defect Vomiting Seizure BPPV (benign paroxysmal positional vertigo) Difficult intravenous access Non-smoker Dysautonomia-like disorder Nephrolithiasis History of echocardiogram Wears glasses Anemia Easy bruising Restless legs Back pain Seizures Dietary restriction History of IBS Shortness of breath on exertion History of edema History of irregular heartbeat Hypoglycemia Anxiety Depression Migraines Kidney disease Hypertension Home Medications Medication Instructions Recorded Last Taken Type albuterol sulfate 90 mcg/actuation 1 - 2 puff inhalation Q6H PRN PRN 03/22/13 11/13/24 History aerosol inhaler (Ventolin HFA) Asthma spironolactone 25 mg tablet 25 mg PO QDAY 07/01/23 11/13/24 History acetaminophen 500 mg capsule 1,000 mg PO Q6H PRN fever or pain 11/14/24 11/14/24 History buspirone 7.5 mg tablet 7.5 mg PO TID PRN PRN anxiety 11/14/24 11/11/24 History gabapentin 600 mg tablet 1,200 mg PO TID 11/14/24 11/14/24 History hydrochlorothiazide 25 mg tablet 25 mg PO DAILY 11/14/24 11/13/24 History methocarbamol 500 mg tablet 500 mg PO 4X/DAY 11/14/24 11/13/24 History rizatriptan 10 mg tablet 10 mg PO PRN 11/14/24 Unknown History tizanidine 4 mg capsule 8 mg PO Q8H PRN PRN muscle spasm 11/14/24 11/13/24 History trazodone 150 mg tablet 150 mg PO QPM 11/14/24 11/13/24 History epinephrine 0.15 mg/0.3 mL 0.15 mg (0.3 mL) IM Q30M PRN 12/15/24 Unknown Rx injection,auto-injector anaphylaxis #2 ea epinephrine 0.3 mg/0.3 mL IM 12/27/24 Unknown History injection, auto-injector Allergy/AdvReac Type Severity Reaction Status Date / Time amoxicillin Allergy Severe hives Verified 12/15/24 13:56 baclofen Allergy Severe incontinenc Verified 12/15/24 13:56 e codeine Allergy Hives Verified 12/15/24 13:56 doxycycline Allergy HIVES Verified 12/15/24 13:56 metronidazole (From Flagyl) Allergy Shortness Verified 12/15/24 13:56 of breath morphine Allergy Hives Verified 12/15/24 13:56 shellfish derived Allergy Angioedema Verified 12/15/24 13:56 topiramate (From Topamax) Allergy Other Verified 12/15/24 13:56 tramadol AdvReac Severe seizures Verified 12/15/24 13:56 adhesive AdvReac Rash Verified 12/15/24 13:56 NSAIDS (Non-Steroidal AdvReac PT UNSURE Verified 12/15/24 13:56 Anti-Inflamma OF REACTION Family History Father No cardiac disease Mother No cardiac disease Other Arthritis Asthma Blood clot in vein Bowel disease Breast cancer CVA (cerebral vascular accident) Cervical cancer Depression Diabetes High cholesterol Hypertension Seizures Suicidal ideation Surgical History History of spinal fusion Hx of dilation and curettage History of radiofrequency ablation (RFA) of nerve of lumbar spine H/O: hysterectomy Hx of laparoscopy S/P removal of right ovary S/P tonsillectomy S/P breast lumpectomy Previous section Social History household members: spouse Smoking Status: Never smoker alcohol intake: current alcohol intake frequency: holidays/special occasions only substance use type: does not use what type of physical activity do you participate in: none ROS ROS ED Review of Systems ROS Unobtainable: due to mental status EXAM Physical Exam Const Vital Signs: 12/27/24 11:15 12/27/24 12:14 12/27/24 13:00 Temperature 97.9 F Temperature Source Oral Pulse Rate 136 H 81 86 Respiratory Rate 47 H 18 Blood Pressure 160/112 H 97/51 L 94/44 L Blood Pressure Mean 128 66 60 Pulse Ox 100 100 100 Oxygen Delivery Method Non-Rebreather 12/27/24 13:30 12/27/24 14:00 Temperature 98.5 F Temperature Source Pulse Rate 89 Respiratory Rate 18 Blood Pressure 96/49 L 89/50 L Blood Pressure Mean 64 63 Pulse Ox 100 Oxygen Delivery Method Positive well nourished and well developed Constitutional Narrative: BMI is 28.0. General Appearance ED: well developed and NAD HEENT Reports moist mucous membranes Neck supple and no JVD Resp Auscultation: diminished lung sounds Cardio regular rhythm Rate: tachycardic Neuro CN's II-XII intact bilaterally and no sensory deficits noted Motor Exam: strength 5/5 throughout MDM MDM MDM Narrative Medical decision making narrative: Different medicine with breakthrough seizure, electrolyte abnormality, infection, , and anxiety. CBC will be obtained to assess for leukocytosis and anemia. Basic metabolic profile will be obtained to assess for electrolyte abnormality and renal function. Serum hCG will be obtained to assess for . Lab Data Attestation: I reviewed the patient's lab results. Lab results narrative: CBC was reviewed and was within normal limits. Basic metabolic profile was reviewed. Anion gap was slightly elevated at 19. CO2 was low at 13.1. This is likely due to the seizure. Glucose is elevated at 244. This is likely due to the D50 that was administered. Serum hCG was reviewed and it was negative. Labs: Laboratory Results - last 24 hr 12/27/24 11:23 WBC 7.1 RBC 4.27 Hgb 12.5 Hct 39.8 MCV 93.2 MCH 29.3 MCHC 31.4 L RDW Std Deviation 44.0 H RDW Coeff of [place] 12.9 Plt Count 213 MPV 10.5 Immature Gran % (Auto) 0.400 Neut % (Auto) 49.8 Lymph % (Auto) 42.7 H [place] % (Auto) 4.8 Eos % (Auto) 1.6 Baso % (Auto) 0.7 Absolute Neuts (auto) 3.5 Absolute Lymphs (auto) 3.02 Nucleated RBC % 0 Sodium 136 Potassium 4.2 Chloride 104 Carbon Dioxide 13.1 L Anion Gap 19 H BUN 11 Creatinine 1.08 Estim Creat Clear Calc 69.55 Est GFR (MDRD) Non-Af 67 BUN/Creatinine Ratio 9.8 L Glucose 244 H Calcium 9.5 Serum , Qual NEGATIVE Treatment and Re-Evaluation :: Patient was given fluids. Patient was given a dose of Ativan. Patient's blood pressure dropped after this. Patient was given repeat bolus of normal saline. Patient is feeling better on reevaluation. Patient wants to go home. Patient was instructed to drink plenty of fluids. Patient was instructed to follow-up with her primary care physician in 5 to 7 days. Patient understood and was agreeable with the plan. All questions were answered. Discharge Plan Triage Chief Complaint: Seizure ED Provider: Juan Antonio Prasad Dx/Rx/DC Orders Clinical Impression: Seizure, Dehydration Instructions: ED Dehydration (Adult), ED Seizure, Recurrent (Adult) Prescriptions: No Action spironolactone 25 mg tablet 25 mg PO QDAY albuterol sulfate [Ventolin HFA] 1 INHALER inhaler 1 - 2 puff inhalation Q6H PRN PRN (Reason: Asthma) epinephrine 0.15 mg/0.3 mL auto-injector 0.15 mg IM Q30M PRN (Reason: anaphylaxis) Qty: 2 0RF Rx Instructions: do not exceed 12 doses per 24 hrs epinephrine 0.3 mg/0.3 mL auto-injector IM gabapentin 600 mg tablet 1,200 mg PO TID rizatriptan 10 mg tablet 10 mg PO PRN trazodone 150 mg tablet 150 mg PO QPM hydrochlorothiazide 25 mg tablet 25 mg PO DAILY tizanidine 4 mg capsule 8 mg PO Q8H PRN PRN (Reason: muscle spasm) methocarbamol 500 mg tablet 500 mg PO 4X/DAY buspirone 7.5 mg tablet 7.5 mg PO TID PRN PRN (Reason: anxiety) acetaminophen 500 mg capsule 1,000 mg PO Q6H PRN (Reason: fever or pain) Primary Care Provider: Winsome Cuevas Referrals: Winsome Cuevas, MARTINE-C [Primary Care Provider, Family Practice] - 3-5 Days Print Language: Afghan Disposition Disposition: Home, Self Care Discharge Date/Time: 12/27/24 15:00
[2024-12-27 11:28] LABS: Hematocrit 39.8 % (37-47); Hemoglobin 12.5 g/dL (12.0-15.0); Immature Granulocytes Count 0.030 X10^3/uL (0.0-0.0); Mean Corp Hgb Conc 31.4 g/dL (32-36); Mean Corpuscular Volume 93.2 fL (81-99); Mean Platelet Vol. 10.5 fl (6.2-12.0); NRBC Flagged by Analyzer 0 % (0-5); Platelet Count 213 K/mm3 (150-450); RBC Distribution Width CV 12.9 % (11.6-14.6); RBC Distribution Width SD 44.0 fl (35.1-43.9); Red Blood Count 4.27 M/mm3 (4.2-5.4); White Blood Count 7.1 K/mm3 (4.4-11.0)
[2024-12-27] MEDS: 0.9% Normal Saline (1000mL) 1,000 ML 1000 ML IV ×2 (11:29→13:15)
[2024-12-27 11:52] LABS: Internal QC Validated? YES +Cl - CLEAR BKGD; Pregnancy, Serum, hCG Quali. NEGATIVE Negative
[2024-12-27 11:53] LABS: Record Kit Lot#, Serum Preg. 980607
[2024-12-27 11:55] LABS: Anion Gap 19 (5-15); BUN 11 mg/dL (4-19); BUN/Creat Ratio 9.8 RATIO (10-20); Calcium,Total 9.5 mg/dL (7.6-11.0); Carbon Dioxide 13.1 mmol/L (21.0-32.0); Chloride 104 mmol/L (98-108); Estimated Creatinine Clearance 69.55 ml/min (50-250); Glucose 244 mg/dL (70-99); Potassium 4.2 mmol/L (3.3-5.1)
--- NOTE | 2024-12-27 12:08 | CHAPLAIN ---
Type of Pastoral Visit ___ Initial Visit ___ Follow-up Visit ___ On-call Visit ___ General Patient Visit ___ Spiritual Assessment ___ Family Conference ___ Bereavement _x__ Rapid Response ___ Code Blue ___ Other (describe below) Pastoral Care Referral From ___ Patient _x__ Family ___ Nurse ___ Physician ___ Senior Production Supervisor ___ Streetcar Motorman _x__ Other (describe below) Sacrament/Intervention _x__ Active listening ___ Anointing ___ Episcopal ___ Bereavement ___ Communion ___ Georgie exploration ___ _x__ Life review ___ Prayer ___ Reconciliation ___ Sacrament of Sick _x__ Supportive presence ___ Wedding ___ Other (describe below) Pastoral Comments responded to a code blue in the Echo Unit; upon arriving the status was changed to rapid response; the patient was being attended by medical staff for a seizure; this credit processor introduced self and role to the spouse and sat with him while treatment was conducted; the patient was transferred to the ED and this credit processor escorted spouse and gave support through this process; offered beverages and other amenities as desired; gave time to listen to story of patient's life and past loss of pregnancies; was present with spouse as SW became involved in the situation; as things progressed in care, and spouse was comfortable with process this credit processor excused himself from support; will be available as needed
[2024-12-27 12:14] VITALS: BP 97/51; PULSE 81; O2SAT 100
[2024-12-27 13:00] VITALS: BP 94/44; PULSE 86; RESP 18; O2SAT 100
[2024-12-27 13:30] VITALS: BP 96/49
--- NOTE | 2024-12-27 13:43 | ED.RN ---
Dr. Prasad notified that MAPs remain <65 since receiving AtAxxana fluids running @ 925
[2024-12-27 14:00] VITALS: BP 89/50; PULSE 89; RESP 18; TEMP 36.9; O2SAT 100
--- NOTE | 2024-12-27 20:38 | CM.ED ---
Social Work Reason for visit: Rapid response SW met with patients while patient was receiving care. states that patient has been having seizures for years but they have been unable to find a definitive cause. states patient has had a hard time holding a job and they have had a hard time going out and and enjoying life as they are never sure when she will have a seizure. also shared that the couple had lost a child 4 years ago. SW met with patient later in visit, patient was tearful during conversation and voiced frustration regarding a lack of identified cause for her seizures, stating the "some of the doctors think Im crazy". SW asked patient is she was seeing a counselor or therapist, patient stated she had in the past but did not feel it was beneficial at the time. SW spoke with patient regarding the connection between mental and physical health, that both could play a role with the other and the potential benefits of mental health treatment. Patient agreeable to same, resources given for counseling services. Meeta Molina, DESIZING PAD OPERATOR, ASSOCIATE STORE MANAGER
== END 2024-12-27 15:00 | disposition home or self-care (01) ==
PROVIDERS: Emergency Provider Emergency Medicine; PCP Nurse Practitioner Family; Visit Provider Emergency Medicine
DX: R56.9 Unspecified convulsions (principal); E86.0 Dehydration; I10 Essential (primary) hypertension; Z90.710 Acquired absence of both cervix and uterus; Z98.1 Arthrodesis status
CPT/HCPCS: 80048; 84703; 85025; 96361; 96374; 99252; 99283; A4216; G0463

== ENCOUNTER → 2024-12-27 | Outpatient (CLI) | payer BC, SELFPAY | END | disposition home or self-care (01) | LOC: CVS 10:02 | PROVIDERS: PCP Nurse Practitioner Family; Referring Provider Internal Medicine Cardiovascular Disease; Visit Provider Internal Medicine Cardiovascular Disease | DX: R55 Syncope and collapse (principal) | CPT/HCPCS: 82962; A4216 ==

== ENCOUNTER 2025-02-02 17:06 | Emergency (ER) | payer BC, SELFPAY ==
[2025-02-02 17:07] VITALS: BP 126/111; PULSE 111; RESP 18; TEMP 36.9; O2SAT 98
--- NOTE | 2025-02-02 17:46 | EX.ED.DYSGE1 ---
HPI History of Present Illness Chief Complaint: Flank Pain Informant: patient Narrative Narrative: 39-year-old female presenting to the emergency room with abdominal pain vomiting. Patient states she has a history of frequent kidney stones. She believes she is passing 1. On Thursday she saw her primary care doctor in the office. Her urine dip positive for blood. At that time she was having waves of pain on the right side of her flank/abdomen but it was manageable. She has been straining her urine. Yesterday and today the pain worsened and has become more severe. She notes the urine has a strange smell to it. She has seen Dr. Potter in the past for urology. He is a patient states most of her doctors are in [place] where she used to live but has them. [facility] Medical History History of renal disease Gastric reflux Asthma PONV (postoperative nausea and vomiting) Leg cramps History of ventricular septal defect Vomiting Seizure BPPV (benign paroxysmal positional vertigo) Difficult intravenous access Non-smoker Dysautonomia-like disorder Nephrolithiasis History of echocardiogram Wears glasses Anemia Easy bruising Restless legs Back pain Seizures Dietary restriction History of IBS Shortness of breath on exertion History of edema History of irregular heartbeat Hypoglycemia Anxiety Depression Migraines Kidney disease Hypertension Home Medications ?Medication ?Instructions ?Recorded ?Last Taken ?Type albuterol sulfate 90 mcg/actuation 1 - 2 puff inhalation Q6H PRN PRN 03/22/13 11/13/24 History aerosol inhaler (Ventolin HFA) Asthma spironolactone 25 mg tablet 25 mg PO QDAY 07/01/23 02/01/25 History acetaminophen 500 mg capsule 1,000 mg PO Q6H PRN fever or pain 11/14/24 11/14/24 History buspirone 7.5 mg tablet 7.5 mg PO TID PRN PRN anxiety 11/14/24 11/11/24 History gabapentin 600 mg tablet 1,200 mg PO TID 11/14/24 02/02/25 History hydrochlorothiazide 25 mg tablet 25 mg PO DAILY 11/14/24 02/01/25 History methocarbamol 500 mg tablet 500 mg PO 4X/DAY 11/14/24 02/01/25 History rizatriptan 10 mg tablet 10 mg PO PRN 11/14/24 Unknown History tizanidine 4 mg capsule 8 mg PO Q8H PRN PRN muscle spasm 11/14/24 02/02/25 History trazodone 150 mg tablet 150 mg PO QPM 11/14/24 02/01/25 History epinephrine 0.3 mg/0.3 mL 0.3 mg IM PRN 02/02/25 Unknown History injection, auto-injector ondansetron 4 mg disintegrating 4 mg PO Q6H PRN PRN nausea/vomiting 02/02/25 Unknown History tablet oxycodone 5 mg tablet 5 mg PO Q6H PRN pain 3 days #12 02/02/25 Unknown Rx tabs Allergy/AdvReac Type Severity Reaction Status Date / Time amoxicillin Allergy Severe hives Verified 02/02/25 17:08 baclofen Allergy Severe incontinenc Verified 02/02/25 17:08 e codeine Allergy Hives Verified 02/02/25 17:08 doxycycline Allergy HIVES Verified 02/02/25 17:08 metronidazole (From Flagyl) Allergy Shortness Verified 02/02/25 17:08 of breath morphine Allergy Hives Verified 02/02/25 17:08 shellfish derived Allergy Angioedema Verified 02/02/25 17:08 topiramate (From Topamax) Allergy Other Verified 02/02/25 17:08 tramadol AdvReac Severe seizures Verified 02/02/25 17:08 adhesive AdvReac Rash Verified 02/02/25 17:08 NSAIDS (Non-Steroidal AdvReac PT UNSURE Verified 02/02/25 17:08 Anti-Inflamma OF REACTION Family History Father No cardiac disease Mother No cardiac disease Other Arthritis Asthma Blood clot in vein Bowel disease Breast cancer CVA (cerebral vascular accident) Cervical cancer Depression Diabetes High cholesterol Hypertension Seizures Suicidal ideation Surgical History History of spinal fusion Hx of dilation and curettage History of radiofrequency ablation (RFA) of nerve of lumbar spine H/O: hysterectomy Hx of laparoscopy S/P removal of right ovary S/P tonsillectomy S/P breast lumpectomy Previous section Social History household members: spouse current occupational status: employed pets and animals: Yes pets and animals: cat(s) Smoking Status: Never smoker Electronic Cigarette Use: not used alcohol intake: current alcohol intake frequency: holidays/special occasions only substance use type: does not use caffeine: Yes Type: coffee Number of servings: 1 what type of physical activity do you participate in: none do you feel safe at home: Yes ROS ROS ED Constitutional Constitutional ED: Denies chills, fever(s) or weight loss Eyes Eyes: Denies change in vision or diplopia ENT ENT ED: Denies ear pain, rhinorrhea or sore throat Cardiovascular Cardiovascular: Denies chest pain, orthopnea, palpitations or racing heartbeat Respiratory/Chest Respiratory/Chest: Denies cough, dyspnea or orthopnea Gastrointestinal Gastrointestinal: Reports abdominal pain, nausea and vomiting; Denies diarrhea Genitourinary Genitourinary ED: Reports hematuria and other Details: Smell to urine that has changed ; Denies dysuria or urinary frequency Musculoskeletal Musculoskeletal: Denies arthralgias or myalgias Integumentary Denies abscess or rash Neurologic Neurologic: Denies headache(s) or weakness Psychiatric Psychiatric: Denies anxiety, depression, suicidal ideation or suicidal thoughts Endocrine Endocrinology: Denies polydipsia, polyphagia or polyuria Allergic/Immunologic Allergic/Immunologic ED: Denies mouth swelling, tongue swelling or urticaria EXAM Physical Exam Narrative Exam Narrative: Patient sitting on the bed appears in pain. Const Vital Signs: 02/02/25 17:07 02/02/25 21:06 02/02/25 21:12 Temperature 98.4 F 98.4 F Temperature Source Temporal Pulse Rate 111 H 62 62 Respiratory Rate 18 16 16 Blood Pressure 126/111 H 118/69 118/69 Blood Pressure Mean 116 85 85 Pulse Ox 98 99 99 Oxygen Delivery Method Room Air Room Air Positive well nourished and well developed General Appearance ED: well developed HEENT Reports normocephalic, head/scalp atraumatic and moist mucous membranes Eyes PERRL and EOMs intact bilaterally Neck no lymphadenopathy, supple and no JVD Resp normal respiratory effort and clear to auscultation bilaterally Cardio regular rate, regular rhythm and no murmurs GI normal to inspection, nondistended, normoactive bowel sounds and non-tender Palpation: soft Back/Spine no CVA tenderness and normal ROM Extremity normal to inspection General Extremety ED: Negative for edema General Extremity: Negative for edema Neuro oriented x3 and CN's II-XII intact bilaterally Sensorium / Orientation: alert Motor Exam: strength 5/5 throughout Psych mental status grossly normal Mood & Affect: Negative for depressed or tearful Skin no rashes or lesions noted and no wounds MDM MDM MDM Narrative Medical decision making narrative: Differential diagnosis includes kidney stone pyelonephritis acute cystitis appendicitis colitis electrolyte erroneous acute kidney injury Basic blood work is obtained shows a creatinine 0.98 white count of 7.1 normal LFTs test is negative urinalysis greater than 100 red cells 0 white cells negative nitrates 50-100 squamous cells 2+ bacteria. CT then pelvis was obtained. There are some nephrolithiasis but I do not see any obvious hydronephrosis or hydroureter. I do not see any inflammation in the right lower quadrant. Patient received a milligram of Dilaudid. She is doing better. I discussed the patient the results. I will write for pain medication at home. She has some Flomax at home. Patient is comfortable with discharged instructions. She understands follow-up. History & Record Review Discussion w/independent historian: Patient Lab Data Attestation: I reviewed the patient's lab results. Labs: Laboratory Results - last 24 hr 02/02/25 02/02/25 18:00 18:01 WBC 7.1 RBC 4.56 Hgb 13.3 Hct 41.6 MCV 91.2 MCH 29.2 MCHC 32.0 RDW Std Deviation 43.4 RDW Coeff of [place] 12.9 Plt Count 219 MPV 10.3 Immature Gran % (Auto) 0.300 Neut % (Auto) 46.6 L Lymph % (Auto) 42.3 H [place] % (Auto) 7.2 Eos % (Auto) 2.8 Baso % (Auto) 0.8 Absolute Neuts (auto) 3.3 Absolute Lymphs (auto) 3.01 Nucleated RBC % 0 Sodium 141 Potassium 3.9 Chloride 106 Carbon Dioxide 23.4 Anion Gap 11 BUN 13 Creatinine 0.98 Est GFR (MDRD) Non-Af 76 BUN/Creatinine Ratio 13.4 Glucose 87 Calcium 9.8 Total Bilirubin 0.35 AST 16 ALT 13 Alkaline Phosphatase 73 Total Protein 7.6 Albumin 4.6 Globulin 3.0 Albumin/Globulin Ratio 1.5 Serum , Qual NEGATIVE Urine Color Straw Urine Clarity Clear Urine pH 6.0 Ur Specific [place] 1.015 Urine Protein Negative Urine Glucose (UA) Normal Urine Ketones Negative Urine Occult Blood 250 H Urine Nitrite Negative Urine Bilirubin Negative Urine Urobilinogen Normal Ur Leukocyte Esterase Negative Urine RBC > 100 SEEN Urine WBC 0 SEEN Ur Squamous Epith Cells 50-100 SEEN Urine Bacteria 2+ Urine Mucus 0 SEEN Radiography Diagnostic Testing: Clinical Impression(s) from Imaging Studies Abdomen/Pelvis CT 02/02/25 18:30 IMPRESSION: Nonobstructing nephrolithiasis bilaterally. Reading Location: [facility] Discharge Plan Triage Chief Complaint: Flank Pain ED Provider: Dandy Santos Dx/Rx/DC Orders Clinical Impression: Acute right flank pain, Nephrolithiasis, Hematuria Instructions: ED Kidney Stone with Pain Prescriptions: New oxycodone 5 mg tablet 5 mg PO Q6H PRN (Reason: pain) 3 Days Qty: 12 0RF No Action spironolactone 25 mg tablet 25 mg PO QDAY albuterol sulfate [Ventolin HFA] 1 INHALER inhaler 1 - 2 puff inhalation Q6H PRN PRN (Reason: Asthma) epinephrine 0.3 mg/0.3 mL auto-injector 0.3 mg IM PRN ondansetron 4 mg tablet,disintegrating 4 mg PO Q6H PRN PRN (Reason: nausea/vomiting) gabapentin 600 mg tablet 1,200 mg PO TID rizatriptan 10 mg tablet 10 mg PO PRN trazodone 150 mg tablet 150 mg PO QPM hydrochlorothiazide 25 mg tablet 25 mg PO DAILY tizanidine 4 mg capsule 8 mg PO Q8H PRN PRN (Reason: muscle spasm) methocarbamol 500 mg tablet 500 mg PO 4X/DAY buspirone 7.5 mg tablet 7.5 mg PO TID PRN PRN (Reason: anxiety) acetaminophen 500 mg capsule 1,000 mg PO Q6H PRN (Reason: fever or pain) Primary Care Provider: Winsome Cuevas Referrals: Winsome Cuevas NP-C [Primary Care Provider, Family Practice] Activity Restrictions/Additional Instructions: Please follow-up with your urologist and door captain. Print Language: Cymraes Disposition Disposition: Home, Self Care Discharge Date/Time: 02/02/25 21:13
[2025-02-02] MEDS: 0.9% Normal Saline (1000mL) 1,000 ML 250 ML IV (18:02)
[2025-02-02 18:13] LABS: Hematocrit 41.6 % (37-47); Hemoglobin 13.3 g/dL (12.0-15.0); Immature Granulocytes Count 0.020 X10^3/uL (0.0-0.0); Mean Corp Hgb Conc 32.0 g/dL (32-36); Mean Corpuscular Volume 91.2 fL (81-99); Mean Platelet Vol. 10.3 fl (6.2-12.0); NRBC Flagged by Analyzer 0 % (0-5); Platelet Count 219 K/mm3 (150-450); RBC Distribution Width CV 12.9 % (11.6-14.6); RBC Distribution Width SD 43.4 fl (35.1-43.9); Red Blood Count 4.56 M/mm3 (4.2-5.4); White Blood Count 7.1 K/mm3 (4.4-11.0)
[2025-02-02 18:17] LABS: Mucous, Urine 0 SEEN /hpf (<or=2+)
[2025-02-02 18:29] LABS: Color, Urine Straw (Yellow); Glucose, Dipstick Normal (Normal); Ketone-Dipstick Negative (Negative); Leukocyte Esterase-Dipstick Negative /ul (Negative); Nitrite-Dipstick Negative (Negative); Occult Blood-Urine 250 /ul (Negative); Protein-Dipstick Negative (Negative); Specific Gravity, Urine 1.015 (1.002-1.030); Urine Bilirubin Dipstick Negative (Negative)
--- NOTE | 2025-02-02 18:30 | CT_ITS ---
PROCEDURE: ABDOMEN/PELVIS WITHOUT CONT 02/02/2025 REASON FOR EXAM: KIDNEY STONE TECHNIQUE: Procedure Code: CTABDPEL Modality: CT Procedure: ABDOMEN/PELVIS WITHOUT CONT Noncontrast technique limits evaluation of the abdominal and pelvic viscera. Coronal and Sagittal reconstruction series were provided. One or more dose reduction techniques were used (e.g., Automated exposure control, adjustment of the mA and/or kV according to patient size, use of iterative reconstruction technique). RADIATION DOSE SUMMARY: CTDlvol: 6.58 mGy DLP: 325 mGycm COMPARISON: 08/24/2024 FINDINGS: LUNG BASES: No basilar airspace consolidation or pleural effusion. LIVER: Unremarkable. GALLBLADDER: Unremarkable. No calcified stone. BILE DUCTS: No ductal dilation. PANCREAS: Unremarkable. SPLEEN: Unremarkable. ADRENAL GLANDS: Unremarkable. KIDNEYS/URETERS Few renal stones bilaterally, punctate on the right and up to 3.5 mm on the left. No ureteral or bladder calculi. No hydronephrosis or hydroureter. STOMACH AND BOWEL: No obstruction or perforation. No wall thickening. No CT evidence of colitis or acute diverticulitis. APPENDIX: No CT evidence for appendicitis. RETRO/PERITONEUM: No free fluid. No free air. LYMPH NODES: No lymphadenopathy. PELVIC ORGANS: Unremarkable urinary bladder and left ovary. Prior hysterectomy. Right ovary not definitively seen. VASCULATURE: No aortic aneurysm. ABDOMINAL WALL AND SOFT TISSUES: Prior anterior lower abdominal wall surgery. BONES: No fracture or suspicious osseous abnormality. Anterior lumbar interbody fusion at L5-S1 with interbody graft spacer. CT/Abdomen/Pelvis without Cont IMPRESSION: Nonobstructing nephrolithiasis bilaterally. Reading Location: [id number]
[2025-02-02 18:41] LABS: Internal QC Validated? YES +Cl - CLEAR BKGD; Pregnancy, Serum, hCG Quali. NEGATIVE Negative
[2025-02-02 18:45] LABS: Red Blood Cells-Urine > 100 SEEN /hpf (0-5); Squamous Epithelial Cells - UA 50-100 SEEN /hpf (5-10)
[2025-02-02 19:54] LABS: AST(SGOT) 16 U/L (<=31); Alanine Aminotransfer ALT/SGPT 13 U/L (<=34); Alkaline Phosphatase 73 U/L (35-104); Anion Gap 11 (5-15); BUN 13 mg/dL (4-19); BUN/Creat Ratio 13.4 RATIO (10-20); Calcium,Total 9.8 mg/dL (7.6-11.0); Carbon Dioxide 23.4 mmol/L (21.0-32.0); Chloride 106 mmol/L (98-108); Glucose 87 mg/dL (70-99); Potassium 3.9 mmol/L (3.3-5.1)
[2025-02-02 20:06] LABS: Albumin, Serum 4.6 g/dL (3.5-5.0); Globulin 3.0 g/dL (2.2-4.2)
[2025-02-02 21:06] VITALS: BP 118/69; PULSE 62; RESP 16; O2SAT 99
[2025-02-02 21:12] VITALS: BP 118/69; PULSE 62; RESP 16; TEMP 36.9; O2SAT 99
== END 2025-02-02 21:13 | disposition home or self-care (01) ==
PROVIDERS: Emergency Provider Emergency Medicine; PCP Nurse Practitioner Family; Visit Provider Emergency Medicine
DX: N20.0 Calculus of kidney (principal); I10 Essential (primary) hypertension; Z90.710 Acquired absence of both cervix and uterus; R31.9 Hematuria, unspecified; Z98.1 Arthrodesis status; Z87.442 Personal history of urinary calculi; J45.909 Unspecified asthma, uncomplicated
CPT/HCPCS: 74176; 80053; 81001; 84703; 85025; 96361; 96374; 96375; 99284; A4216; J2405